=== PATIENT | male | born 1955 | race Caucasian/White ===

== ENCOUNTER 2023-08-30 10:26 | Outpatient (OUT) | payer MEDICARE, SELFPAY ==
[2023-08-30 11:03] LABS: Basophils Percent Auto 0.4 % (0.2-2.0); Eosinophils Absolute Auto 0.2 10^3/uL (0.0-0.7); Eosinophils Percent Auto 2.3 % (0.9-7.0); Hematocrit 51.4 % (42.0-54.0); Hemoglobin 16.9 g/dL (14.0-18.0); Immature Granulocytes Abs Auto 0.05 10^3/uL (0.00-0.03); Immature Granulocytes Pct Auto 0.5 % (0.0-0.5); Lymphocytes Absolute Auto 1.5 10^3/uL (1.2-3.8); Lymphocytes Percent Auto 15.7 % (20.5-60.0); Mean Corpuscular HGB Conc 32.9 g/dL (29.9-35.2); Mean Corpuscular Hemoglobin 29.3 pg (25.9-34.0); Mean Corpuscular Volume 89.1 fL (80.0-94.0); Mean Platelet Volume 9.5 fL (9.5-13.5); Monocytes Absolute Auto 0.8 10^3/uL (0.3-0.8); Monocytes Percent Auto 8.1 % (1.7-12.0); Neutrophils Absolute Auto 7.1 10^3/uL (1.4-6.5); Platelet Count 256 10^3/uL (150-450); Red Blood Count 5.77 10^6/uL (4.70-6.10); Red Cell Distribution Width 13.2 % (11.0-15.0); White Blood Count 9.8 10^3/uL (4.0-11.0)
[2023-08-30 11:44] LABS: Alanine Aminotransferase 37 U/L (16-63); Alkaline Phosphatase 109 U/L (46-116); Anion Gap 14.9; Aspartate Amino Transferase 14 U/L (15-37); BUN Creatinine Ratio 14.4; Bilirubin Total 1.1 mg/dL (0.2-1.0); Calcium 9.5 mg/dL (8.5-10.1); Carbon Dioxide 28.1 mmol/L (21.0-32.0); Chloride 105 mmol/L (98-107); Chol HDL Ratio 2.4; Cholesterol 106 mg/dL (<=200); Estimated GFR (African America >60 (>=60); Estimated GFR (Non-African Ame >60 (>=60); Free T3 2.36 pg/mL (2.18-3.98); Globulin 4.2 g/dL; Glucose 201 mg/dL (74-106); HDL Cholesterol 45 mg/dL (40-60); LDL Cholesterol Calculated 34.8 mg/dL; Sodium 144 mmol/L (136-145); Thyroid Stimulating Hormone 1.888 uIU/mL (0.358-3.740); Total Protein 8.2 g/dL (6.4-8.2); Triglycerides 131 mg/dL (<=150); Uric Acid 4.7 mg/dL (3.5-7.2); VLDL CHOLESTEROL 26.2 mg/dL
[2023-08-30 12:10] LABS: Estimated Average Glucose 194 mg/dL; Glycohemoglobin A1C 8.4 % (4.5-6.2)
[2023-08-30 13:21] LABS: Prostate Specific Antigen Scrn 2.12 ng/mL (<=4.00)
[2023-08-31 09:09] LABS: Insulin 11.5 uIU/mL (2.6-24.9)
== END 2023-08-30 10:27 | disposition home or self-care (01) ==
LOC: LAB 10:32
PROVIDERS: PCP Nurse Practitioner Family; Visit Provider Nurse Practitioner Family
DX: I10 Essential (primary) hypertension (principal); Z12.5 Encounter for screening for malignant neoplasm of prostate
CPT/HCPCS: 36415; 80053; 80061; 83036; 83525; 84436; 84443; 84481; 84550; 85025; G0103

== ENCOUNTER 2023-08-31 10:28 | Outpatient (OUT) | payer MEDICARE, SELFPAY ==
--- OUTSIDE RECORDS SUMMARY | 2023-08-31 10:31 | XMS_ITS | CCD ---
Author Name Unknown Address [address] [place] [address] Organization [facility] Care Team Providers Care Patient Portal Concierge Name Role Phone PHYSICIAN, DEFAULT Unavailable Unavailable PHYSICIAN, DEFAULT Unavailable Unavailable PHYSICIAN, DEFAULT Unavailable Unavailable PHYSICIAN, DEFAULT Unavailable Unavailable PHYSICIAN, DEFAULT Unavailable Unavailable PHYSICIAN, DEFAULT Unavailable Unavailable UNKNOWN, PROVIDER Unavailable Unavailable UNKNOWN, PROVIDER Unavailable Unavailable ESPERANZA, YFN Unavailable Unavailable ESPERANZA, YFN Unavailable Unavailable RAY, ONEYDA Admitting Unavailable RAY, ONEYDA Attending Unavailable RAY, ONEYDA Primary Care Unavailable RAY, ONEYDA Admitting Unavailable RAY, ONEYDA Attending Unavailable RAY, ONEYDA Consulting Unavailable RAY, ONEYDA Primary Care Unavailable ONEYDA BAKER Attending Unavailable YFN MATA Primary Care Unavailable RAY, ONEYDA Consulting Unavailable RAY, ONEYDA Admitting Unavailable ILAN TODD Attending Unavailable ILAN TODD Consulting Unavailable ILAN TODD Admitting Unavailable RAY, ONEYDA Primary Care Unavailable AMARIS WALKER Consulting Unavailable Allergies Allergy Classification Reported Allergen(s) Allergy Type Date of Onset Reaction(s) Facility (2 sources) No Known Allergies; 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: [No Known Allergies] Propensity to adverse reactions (disorder) 7 [facility] Repository Problems Active Problems Problem Classification Problem Date Documented Date Episodic/Chronic Diabetes mellitus without complication (1 source) Type 2 diabetes mellitus without complications; 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: [TYPE 2 DIABETES MELLITUS WITHOUT COMPLICATIONS] Onset: 2017 Chronic Diabetes mellitus without complication (4 sources) Other abnormal glucose; 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: [OTHER ABNORMAL GLUCOSE] Onset: 08-26-2021 Episodic Disorders of lipid metabolism (1 source) Hyperlipidemia, unspecified; 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: [HYPERLIPIDEMIA UNSPECIFIED] Onset: 08-31-2021 Chronic Essential hypertension (2 sources) Essential (primary) hypertension; 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: [ESSENTIAL (PRIMARY) HYPERTENSION] Onset: 2017 Chronic Heart valve disorders (1 source) Nonrheumatic mitral (valve) insufficiency; 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: [NONRHEUMATIC MITRAL (VALVE) INSUFFICIENCY] Onset: 2017 Chronic Respiratory failure; insufficiency; arrest (1 source) Dependence on supplemental oxygen; 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: [DEPENDENCE ON SUPPLEMENTAL OXYGEN] Onset: 2017 Chronic Unclassified (1 source) Obstructive sleep apnea (adult) (pediatric); 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: [OBSTRUCTIVE SLEEP APNEA (ADULT) (PEDIATRIC)] Onset: 2017 Chronic Unclassified (6 sources) Abnormal result of other cardiovascular function study; 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: [Encounter for screening for malignant neoplasm of prostate] Onset: 2017 Episodic Unclassified (2 sources) Unknown / UNK(Unknown) Onset: 2017 Unclassified (1 source) 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; 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: [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 DRUGS] Onset: 2017 Viral infection (1 source) COVID-19; 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: [COVID-19] Onset: 12-08-2020 Past or Other Problems Problem Classification Problem Date Documented Da te Episodic/Chronic Other aftercare (1 source) [facility] (current) use of aspirin; 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: [SNF (CURRENT) USE OF ASPIRIN] Onset: 2017 Episodic Other lower respiratory disease (1 source) Shortness of breath; 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: [SHORTNESS OF BREATH] Onset: 2017 Episodic Other lower respiratory disease (3 sources) Cough; 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: [COUGH] Onset: 12-06-2020 Episodic Results Test Name Value Interpretation Reference Range Facility INSULINon 08-27-2021 Insulin 19.2 uIU/mL Normal 2.6-24.9 [facility] Comment on above: Performed By: #### INSULIN #### [facility] [address] [address] [address] Forrest Lauren CBC AUTO DIFFon 08-26-2021 BASO # 0.1 103/ul Normal 0.0-0.1 [facility] Comment on above: Performed By: #### PSASC #### [facility] [address] [address] [address] Forrest Lauren Basophils/100 WBC (Bld) 0.8 % Normal 0.2-2.0 [facility] Comment on above: Performed By: #### PSASC #### [facility] [address] [place] [address] Dr. Forrest Lauren EO # 0.4 103/ul Normal 0.0-0.7 [facility] Comment on above: Performed By: #### PSASC #### [facility] [address] [place] [address] Dr. Forrest Lauren Eosinophils/100 WBC (Bld) 4.8 % Normal 0.9-7.0 [facility] Comment on above: Performed By: #### PSASC #### [facility] [address] [place] [address] Dr. Forrest Lauren Erythrocyte distribution width (RBC) [Ratio] 12.7 % Normal 11.0-15.0 [facility] Comment on above: Performed By: #### PSASC #### [facility] [address] [place] [address] Dr. Forrest Lauren Hematocrit (Bld) [Volume fraction] 48.3 % Normal 42.0-54.0 [facility] Comment on above: Performed By: #### PSASC #### [facility] [address] [place] [address] Dr. Forrest Lauren Hemoglobin (Bld) [Mass/Vol] 16.4 g/dL Normal 14.0-18.0 [facility] Comment on above: Performed By: #### PSASC #### [facility] [address] [place] [address] Dr. Forrest Lauren IG # 0.05 10e3/ul Critically high 0.00-0.03 [facility] Comment on above: Performed By: #### PSASC #### [facility] [address] [place] [address] Dr. Forrest Lauren IG % 0.6 % Critically high 0.0-0.5 [facility] Comment on above: Performed By: #### PSASC #### [facility] [address] [place] [address] Dr. Forrest Lauren LYMPH # 2.0 103/ul Normal 1.2-3.8 [facility] Comment on above: Performed By: #### PSASC #### [facility] [address] [place] [address] Dr. Forrest Lauren Lymphocytes/100 WBC (Bld) 22.6 % Normal 20.5-60.0 [facility] Comment on above: Performed By: #### PSASC #### [facility] [address] [place] [address] Dr. Forrest Lauren MANUAL DIFF REQ NO Normal [facility] Comment on above: Performed By: #### PSASC #### [facility] [address] [place] [address] Dr. Forrest Lauren MCH (RBC) [Entitic mass] 29.8 pg Normal 25.9-34.0 [facility] Comment on above: Performed By: #### PSASC #### [facility] [address] [place] [address] Dr. Forrest Lauren MCHC (RBC) [Mass/Vol] 34.0 g/dL Normal 29.9-35.2 [facility] Comment on above: Performed By: #### PSASC #### [facility] [address] [place] [address] Dr. Forrest Lauren MCV (RBC) [Entitic vol] 87.8 fL Normal 80.0-94.0 [facility] Comment on above: Performed By: #### PSASC #### [facility] [address] [place] [address] Dr. Forrest Lauren MONO # 0.7 103/ul Normal 0.3-0.8 [facility] Comment on above: Performed By: #### PSASC #### [facility] [address] [place] [address] Dr. Forrest Lauren Monocytes/100 WBC (Bld) 8.0 % Normal 1.7-12.0 [facility] Comment on above: Performed By: #### PSASC #### [facility] [address] [place] [address] Dr. Forrest Lauren NEUT # 5.7 103/ul Normal 1.4-6.5 [facility] Comment on above: Performed By: #### PSASC #### [facility] [address] [place] [address] Dr. Forrest Lauren Neutrophils/100 WBC (Bld) 63.2 % Normal 43.0-75.0 [facility] Comment on above: Performed By: #### PSASC #### [facility] [address] [place] [address] Dr. Forrest Lauren Platelet mean volume (Bld) [Entitic vol] 9.7 fL Normal 9.5-13.5 [facility] Comment on above: Performed By: #### PSASC #### [facility] [address] [address] [address] Forrest Lauren PLT 242 103/ul Normal 150-450 [facility] Comment on above: Performed By: #### PSASC #### [facility] [address] [place] [address] Dr. Forrest Lauren RBC 5.50 106/ul Normal 4.70-6.10 [facility] Comment on above: Performed By: #### PSASC #### [facility] [address] [place] [address] Dr. Forrest Lauren WBC 9.0 103/ul Normal 4.0-11.0 [facility] Comment on above: Performed By: #### PSASC #### [facility] [address] [place] [address] Dr. Forrest Lauren GLYCOHEMOGLOBIN A1Con 2021 ADA RECOMMENDATION ADA THERAPEUTIC TARGET 6.0 - 7.0 ACTION SUGGESTED > 7.0 Normal [facility] Comment on above: Performed By: #### A1C #### [facility] [address] [place] [address] Dr. Forrest Lauren Glucose [Mass/Vol] 194 mg/dL Normal [facility] Comment on above: Performed By: #### A1C #### [facility] [address] [place] [address] Dr. Forrest Lauren HbA1c (Bld) [Mass fraction] 8.4 % Critically high <=6.0 [facility] Comment on above: Performed By: #### A1C #### [facility] [address] [place] [address] Dr. Forrest Lauren LIPID PROFILEon 08-26-2021 CHOL-HDL RATIO NORM SEE BELOW Normal [facility] Comment on above: Result Comment: 3.3 - 4.4 LOW RISK 4.4 - 7.1 AVERAGE RISK 7.1 - 11.0 MODERATE RISK >11.0 HIGH RISK Performed By: #### P SASC #### [facility] [address] [address] [address] Forrest Lauren Cholesterol [Mass/Vol] 117 mg/dL Normal <=200 [facility] Comment on above: Performed By: #### PSASC #### [facility] [address] [address] [address] Forrest Lauren Cholesterol in HDL [Mass/Vol] 43 mg/dL Normal [facility] Comment on above: Performed By: #### PSASC #### [facility] [address] [place] [address] Dr. Forrest Lauren Cholesterol in LDL [Mass/Vol] 45.6 mg/dL Normal [facility] Comment on above: Performed By: #### PSASC #### [facility] [address] [place] [address] Dr. Forrest Lauren Cholesterol.tota l/Cholesterol in HDL [Mass ratio] 2.7 {ratio} Normal [facility] Comment on above: Performed By: #### PSASC #### [facility] [address] [place] [address] Dr. Forrest Lauren HDL NORMAL > or = 60 mg/dl - LO W CARDIOVASCULAR RISK <40 mg/dl - HIGH CARDIOVASCULAR RISK Normal [facility] Comment on above: Performed By: #### PSASC #### [facility] [address] [place] [address] Dr. Forrest Lauren LDL CALC NORMAL SEE BELOW Normal [facility] Comment on above: Result Comment: <100 mg/dl OPTIMAL 100 - 129 mg/dl NEAR OR ABOVE OPTIMAL 130 - 159 mg/dl BORDERLINE HIGH 160 - 189 mg/dl HIGH >190 mg/dl VERY HIGH Performed By: #### P SASC #### [facility] [address] [place] [address] Dr. Forrest Lauren Triglyceride [Mass/Vol] 142 mg/dL Normal <=150 [facility] Comment on above: Performed By: #### PSASC #### [facility] [address] [address] [address] Forrest Lauren VLDL CALC 28.4 mg/dL Normal [facility] Comment on above: Performed By: #### PSASC #### [facility] [address] [address] [address] Forrest Lauren PROF 14(COMP METB)on 022 Albumin [Mass/Vol] 4.1 g/dL Normal 3.5-5.0 [facility] Comment on above: Performed By: #### PSASC #### [facility] [address] [place] [address] Dr. Forrest Lauren Albumin/Globulin [Mass ratio] 1.2 {ratio} Normal [facility] Comment on above: Performed By: #### PSASC #### [facility] [address] [place] [address] Dr. Forrest Lauren ALP [Catalytic activity/Vol] 82 U/L Normal 38-126 [facility] Comment on above: Performed By: #### PSASC #### [facility] [address] [place] [address] Dr. Forrest Lauren ALT [Catalytic activity/Vol] 38 U/L Normal 21-72 [facility] Comment on above: Performed By: #### PSASC #### [facility] [address] [place] [address] Dr. Forrest Lauren Anion gap [Moles/Vol] 12.7 mmol/L Normal [facility] Comment on above: Performed By: #### PSASC #### [facility] [address] [place] [address] Dr. Forrest Lauren AST [Catalytic activity/Vol] 18 U/L Normal 17-59 [facility] Comment on above: Performed By: #### PSASC #### [facility] [address] [place] [address] Dr. Forrest Lauren Bilirubin [Mass/Vol] 1.2 mg/dL Normal 0.2-1.3 [facility] Comment on above: Performed By: #### PSASC #### [facility] [address] [address] [address] Forrest Lauren Calcium [Mass/Vol] 9.7 mg/dL Normal 8.4-10.2 [facility] Comment on above: Performed By: #### PSASC #### [facility] [address] [place] [address] Dr. Forrest Lauren Chloride [Moles/Vol] 102 mmol/L Normal 98-107 [facility] Comment on above: Performed By: #### PSASC #### [facility] [address] [place] [address] Dr. Forrest Lauren CO2 [Moles/Vol] 30.6 mmol/L Critically high 22.0-30.0 [facility] Comment on above: Performed By: #### PSASC #### [facility] [address] [place] [address] Dr. Forrest Lauren Creatinine [Mass/Vol] 1.09 mg/dL Normal 0.66-1.25 [facility] Comment on above: Performed By: #### PSASC #### [facility] [address] [place] [address] Dr. Forrest Lauren EGFR-AF J[place]ICAN >60 Normal >=60 [facility] Comment on above: Performed By: #### PSASC #### [facility] [address] [place] [address] Dr. Forrest Lauren EGFR-NON AF [place] >60 Normal >=60 [facility] Comment on above: Performed By: #### PSASC #### [facility] [address] [address] [address] Forrest Lauren Globulin (S) [Mass/Vol] 3.4 g/dL Normal [facility] Comment on above: Performed By: #### PSASC #### [facility] [address] [place] [address] Dr. Forrest Lauren Glucose [Mass/Vol] 238 mg/dL Critically high 74-106 [facility] Comment on above: Performed By: #### PSASC #### [facility] [address] [address] [address] Forrest Lauren Potassium [Moles/Vol] 4.3 mmol/L Normal 3.4-5.0 [facility] Comment on above: Performed By: #### PSASC #### [facility] [address] [place] [address] Dr. Forrest Lauren Protein [Mass/Vol] 7.5 g/dL Normal 6.1-8.2 [facility] Comment on above: Performed By: #### PSASC #### [facility] [address] [place] [address] Dr. Forrest Lauren Sodium [Moles/Vol] 141 mmol/L Normal 137-145 [facility] Comment on above: Performed By: #### PSASC #### [facility] [address] [place] [address] Dr. Forrest Lauren Urea nitrogen [Mass/Vol] 20.0 mg/dL Normal 9.0-20.0 [facility] Comment on above: Performed By: #### PSASC #### [facility] [address] [place] [address] Dr. Forrest Lauren Urea nitrogen/Creatin ine [Mass ratio] 18.3 mg/mg Normal [facility] Comment on above: Performed By: #### PSASC #### [facility] [address] [place] [address] Dr. Forrest Lauren URIC ACID SERUMon 08-26-2021 Urate [Mass/Vol] 4.8 mg/dL Normal 3.5-8.5 [facility] Comment on above: Performed By: #### PSASC #### [facility] [address] [place] [address] Dr. Forrest Lauren Covid-19 PCR ([facility])on Sample Type Test performed using RT-PCR from a nasopharyngeal collected specimen. Normal [facility] Comment on above: Performed By: #### PSASC #### [facility] [address] [place] [address] Dr. Forrest Lauren SARS-CoV-2 (COVID-19) RNA MERA+probe Ql (Unsp spec) Detected Abnormal NOT DETECTED [facility] Comment on above: Result Comment: This test is not yet janusz roved or cleared by the [place] FDA. When there are no FDA-approved or cleared tests available, and other criteria are met, FDA can make tests available under an emergency access mechanism called an Emergency Use Authorization (EUA). The EUA for this test is supported by the [place] of Health and Human Service's (HHS's) declaration that circumstances exist to justify the emergency use of in vitro diagnostics for the detection and/or diagnosis of the virus that causes COVID-19. This EUA will remain in effect (meaning this test can be used) for the duration of the COVID-19 declaration justifying emergency of IVDs, unless it is terminated or revoked by FDA (after which the test may no longer be used). Performed By: #### P SASC #### [facility] [address] [place] [address] Dr. Forrest Lauren POINT OF CARE GLUCOSEon 05-0 Glucose [Mass/Vol] 255 mg/dL Critically high 74-106 [facility] Comment on above: Performed By: #### POCGLUC #### [facility] [address] [place] [address] Matias Rivas XR CHEST 1 Von 12-07-2020 XR CHEST 1 V EXAM: XR CHEST 1 V HISTORY: COUGH COMPARISON: None. TECHNIQUE: Single view portable upright view of the chest is submitted for review. FINDINGS: The heart size normal. Mild elevation of the left hemidiaphragm is seen. Left lung base atelectasis versus small infiltrate is seen. No significant pleural effusion or obvious pneumothorax is seen on this single view of the chest. IMPRESSION: Left lung base atelectasis versus small infiltrate. Electronically authenticated by: AMARIS WALKER Date: 2020-12-06 22:04 Normal [facility] INSULINon 10-02-2020 Insulin 16.9 uIU/mL Normal 2.6-24.9 [facility] Comment on above: Performed By: #### PSASC #### [facility] [address] [place] [address] Dr. Forrest Lauren CBC AUTO DIFFon 10-01-2020 BASO # 0.1 103/ul Normal 0.0-0.1 [facility] Comment on above: Performed By: #### CBC #### [facility] [address] [id number] Matias Evelyn Basophils/100 WBC (Bld) 0.6 % Normal 0.2-2.0 [facility] Comment on above: Performed By: #### CBC #### [facility] [address] [place] [address] Matias Evelyn EO # 0.4 103/ul Normal 0.0-0.7 [facility] Comment on above: Performed By: #### CBC #### [facility] [address] [place] [address] Matias Evelyn Eosinophils/100 WBC (Bld) 4.2 % Normal 0.9-7.0 [facility] Comment on above: Performed By: #### CBC #### [facility] [address] [place] [address] Matias Evelyn Erythrocyte distribution width (RBC) [Ratio] 13.1 % Normal 11.0-15.0 [facility] Comment on above: Performed By: #### CBC #### [facility] [address] [place] [address] Matias Evelyn Hematocrit (Bld) [Volume fraction] 50.2 % Normal 42.0-54.0 [facility] Comment on above: Performed By: #### CBC #### [facility] [address] [place] [address] Matias Evelyn Hemoglobin (Bld) [Mass/Vol] 16.6 g/dL Normal 14.0-18.0 [facility] Comment on above: Performed By: #### CBC #### [facility] [address] [place] [address] Matias Evelyn IG # 0.05 10e3/ul Critically high 0.00-0.03 [facility] Comment on above: Performed By: #### CBC #### [facility] [address] [place] [address] Matias Evelyn IG % 0.6 % Critically high 0.0-0.5 [facility] Comment on above: Performed By: #### CBC #### [facility] [address] [place] [address] Matias Evelyn LYMPH # 1.9 103/ul Normal 1.2-3.8 [facility] Comment on above: Performed By: #### CBC #### [facility] [address] [place], [place] [id number] Matias Rivas Lymphocytes/100 WBC (Bld) 22.2 % Normal 20.5-60.0 [facility] Comment on above: Performed By: #### CBC #### [facility] [address] [place] [address] Matias Rivas MANUAL DIFF REQ NO Normal [facility] Comment on above: Performed By: #### CBC #### [facility] [address] [place] [address] Matias Rivas MCH (RBC) [Entitic mass] 29.4 pg Normal 25.9-34.0 [facility] Comment on above: Performed By: #### CBC #### [facility] [address] [place] [address] Matiaswali Rivas MCHC (RBC) [Mass/Vol] 33.1 g/dL Normal 29.9-35.2 [facility] Comment on above: Performed By: #### CBC #### [facility] [address] [place] [address] Matias Rivas MCV (RBC) [Entitic vol] 88.8 fL Normal 80.0-94.0 [facility] Comment on above: Performed By: #### CBC #### [facility] [address] [place] [address] Matias Rodasen MONO # 0.7 103/ul Normal 0.3-0.8 [facility] Comment on above: Performed By: #### CBC #### [facility] [address] [place] [address] Matiaswali Rivas Monocytes/100 WBC (Bld) 7.7 % Normal 1.7-12.0 [facility] Comment on above: Performed By: #### CBC #### [facility] [address] [place] [address] Matias Evelyn NEUT # 5.7 103/ul Normal 1.4-6.5 [facility] Comment on above: Performed By: #### CBC #### [facility] [address] [place], [place] [address] Matias Rivas Neutrophils/100 WBC (Bld) 64.7 % Normal 43.0-75.0 [facility] Comment on above: Performed By: #### CBC #### [facility] [address] [place], [place] [id number] Matias Rivas Platelet mean volume (Bld) [Entitic vol] 10.4 fL Normal 9.5-13.5 [facility] Comment on above: Performed By: #### CBC #### [facility] [address] [place] [address] Matiaswali Rodasen PLT 243 103/ul Normal 150-450 [facility] Comment on above: Performed By: #### CBC #### [facility] [address] [place] [address] Matias Evelyn RBC 5.65 106/ul Normal 4.70-6.10 [facility] Comment on above: Performed By: #### CBC #### [facility] [address] [place] [address] Matiaswali Rivas WBC 8.7 103/ul Normal 4.0-11.0 [facility] Comment on above: Performed By: #### CBC #### [facility] [address] [place] [address] Matias Rivas FREE THYROXINE INDEX T7on FTI 2.11 Normal [facility] Comment on above: Performed By: #### URIC, CMP, T7, PSASC, TSH, LIPID #### [facility] [address] [place] [address] Matias Rivas T3U 34.0 % Normal 23.5-40.5 [facility] Comment on above: Performed By: #### URIC, CMP, T7, PSASC, TSH, LIPID #### [facility] [address] [place], [place] [id number] Matiaswali Rodasen T4 [Mass/Vol] 6.20 ug/dL Normal 5.53-11.00 [facility] Comment on above: Performed By: #### URIC, CMP, T7, PSASC, TSH, LIPID #### [facility] [address], [place] [address] Matias Rivas GLYCOHEMOGLOBIN A1Con 2020 ADA RECOMMENDATION ADA THERAPEUTIC TARGET 6.0 - 7.0 ACTION SUGGESTED > 7.0 Normal [facility] Comment on above: Performed By: #### A1C #### [facility] [address] [address] Matias Rivas Glucose [Mass/Vol] 266 mg/dL Normal [facility] Comment on above: Performed By: #### A1C #### [facility] [address] [address] Matias Evelyn HbA1c (Bld) [Mass fraction] 10.9 % Critically high <=6.0 [facility] Comment on above: Performed By: #### A1C #### [facility] [address] [place] [address] Matias Rivas LIPID PROFILEon 10-01-2020 CHOL-HDL RATIO NORM SEE BELOW Normal [facility] Comment on above: Result Comment: 3.3 - 4.4 LOW RISK 4.4 - 7.1 AVERAGE RISK 7.1 - 11.0 MODERATE RISK >11.0 HIGH RISK Performed By: #### P SASC #### [facility] [address] [place] [address] Dr. Forrest Lauren Cholesterol [Mass/Vol] 110 mg/dL Normal <=200 [facility] Comment on above: Performed By: #### PSASC #### [facility] [address] [place] [address] Dr. Forrest Lauren Cholesterol in HDL [Mass/Vol] 36 mg/dL Normal [facility] Comment on above: Performed By: #### PSASC #### [facility] [address] [address] [address] Forrest Lauren Cholesterol in LDL [Mass/Vol] 36.2 mg/dL Normal [facility] Comment on above: Performed By: #### PSASC #### [facility] [address] [place] [address] Dr. Forrest Lauren Cholesterol.tota l/Cholesterol in HDL [Mass ratio] 3.1 {ratio} Normal [facility] Comment on above: Performed By: #### PSASC #### [facility] [address] [address] [address] Forrest Lauren HDL NORMAL > or = 60 mg/dl - LO W CARDIOVASCULAR RISK <40 mg/dl - HIGH CARDIOVASCULAR RISK Normal [facility] Comment on above: Performed By: #### PSASC #### [facility] [address] [address] [address] Forrest Lauren LDL CALC NORMAL SEE BELOW Normal [facility] Comment on above: Result Comment: <100 mg/dl OPTIMAL 100 - 129 mg/dl NEAR OR ABOVE OPTIMAL 130 - 159 mg/dl BORDERLINE HIGH 160 - 189 mg/dl HIGH >190 mg/dl VERY HIGH Performed By: #### P SASC #### [facility] [address] [place] [address] Dr. Forrest Lauren Triglyceride [Mass/Vol] 189 mg/dL Critically high <=150 [facility] Comment on above: Performed By: #### PSASC #### [facility] [address] [place] [address] Dr. Forrest Lauren VLDL CALC 37.8 mg/dL Normal [facility] Comment on above: Performed By: #### PSASC #### [facility] [address] [place] [address] Dr. Forrest Lauren PROF 14(COMP METB)on 021 Albumin [Mass/Vol] 4.1 g/dL Normal 3.5-5.0 [facility] Comment on above: Performed By: #### URIC, CMP, T7, PSASC, TSH, LIPID #### [facility] [address] [place] [address] Matias Rivas Albumin/Globulin [Mass ratio] 1.2 {ratio} Normal [facility] Comment on above: Performed By: #### URIC, CMP, T7, PSASC, TSH, LIPID #### [facility] [address] [place] [address] Matias Rivas ALP [Catalytic activity/Vol] 80 U/L Normal 38-126 [facility] Comment on above: Performed By: #### URIC, CMP, T7, PSASC, TSH, LIPID #### [facility] [address] [address] Matias Evelyn ALT [Catalytic activity/Vol] 42 U/L Normal 21-72 [facility] Comment on above: Performed By: #### URIC, CMP, T7, PSASC, TSH, LIPID #### [facility] [address] [address] Matias Evelyn Anion gap [Moles/Vol] 12.3 mmol/L Normal [facility] Comment on above: Performed By: #### URIC, CMP, T7, PSASC, TSH, LIPID #### [facility] [address] [place] [address] Amtias Evelyn AST [Catalytic activity/Vol] 24 U/L Normal 17-59 [facility] Comment on above: Performed By: #### URIC, CMP, T7, PSASC, TSH, LIPID #### [facility] [address] [place] [address] Matias Evelyn Bilirubin [Mass/Vol] 1.3 mg/dL Normal 0.2-1.3 [facility] Comment on above: Performed By: #### URIC, CMP, T7, PSASC, TSH, LIPID #### [facility] [address] [place] [address] Matias Evelyn Calcium [Mass/Vol] 9.3 mg/dL Normal 8.4-10.2 [facility] Comment on above: Performed By: #### URIC, CMP, T7, PSASC, TSH, LIPID #### [facility] [address] [place] [address] Matias Evelyn Chloride [Moles/Vol] 103 mmol/L Normal 98-107 [facility] Comment on above: Performed By: #### URIC, CMP, T7, PSASC, TSH, LIPID #### [facility] [address] [place] [address] Matias Evelyn CO2 [Moles/Vol] 30.0 mmol/L Normal 22.0-30.0 [facility] Comment on above: Performed By: #### URIC, CMP, T7, PSASC, TSH, LIPID #### [facility] [address] [address] Matias Evelyn Creatinine [Mass/Vol] 1.20 mg/dL Normal 0.66-1.25 [facility] Comment on above: Performed By: #### URIC, CMP, T7, PSASC, TSH, LIPID #### [facility] [address] [address] Matias Evelyn EGFR-AF JAMAICAN >60 Normal >=60 [facility] Comment on above: Performed By: #### URIC, CMP, T7, PSASC, TSH, LIPID #### [facility] [address] [address] Matias Evelyn EGFR-NON AF JAMAICAN >60 Normal >=60 [facility] Comment on above: Performed By: #### URIC, CMP, T7, PSASC, TSH, LIPID #### [facility] [address] [place] [address] Matias Evelyn Globulin (S) [Mass/Vol] 3.5 g/dL Normal [facility] Comment on above: Performed By: #### URIC, CMP, T7, PSASC, TSH, LIPID #### [facility] [address] [address] Matias Evelyn Glucose [Mass/Vol] 269 mg/dL Critically high 74-106 [facility] Comment on above: Performed By: #### URIC, CMP, T7, PSASC, TSH, LIPID #### [facility] [address] [place] [address] Matias Evelyn Potassium [Moles/Vol] 4.3 mmol/L Normal 3.4-5.0 [facility] Comment on above: Performed By: #### URIC, CMP, T7, PSASC, TSH, LIPID #### [facility] [address] [address] Matias Evelyn Protein [Mass/Vol] 7.6 g/dL Normal 6.1-8.2 [facility] Comment on above: Performed By: #### URIC, CMP, T7, PSASC, TSH, LIPID #### [facility] [address] [address] Matias Evelyn Sodium [Moles/Vol] 141 mmol/L Normal 137-145 [facility] Comment on above: Performed By: #### URIC, CMP, T7, PSASC, TSH, LIPID #### [facility] [address] [place] [address] Matias Evelyn Urea nitrogen [Mass/Vol] 17.0 mg/dL Normal 9.0-20.0 [facility] Comment on above: Performed By: #### URIC, CMP, T7, PSASC, TSH, LIPID #### [facility] [address] [place] [address] Matias Evelyn Urea nitrogen/Creatin ine [Mass ratio] 14.2 mg/mg Normal [facility] Comment on above: Performed By: #### URIC, CMP, T7, PSASC, TSH, LIPID #### [facility] [address] [place] [address] Matias Rivas TSHon 10-01-2020 TSH 1.574 uIU/mL Normal 0.470-4.68 0 [facility] Comment on above: Performed By: #### PSASC #### [facility] [address] [place] [address] Dr. Forrest Lauren TSH RANGE SEE BELOW Normal [facility] Comment on above: Result Comment: <0.34 UIU/ml HYPERTHYROI D 0.34-5.60 UIU/ml EUTHYROID >5.60 UIU/ml HYPOTHYROID Performed By: #### P SASC #### [facility] [address] [place] [address] Dr. Forrest Lauren URIC ACID SERUMon 10-01-2020 Urate [Mass/Vol] 4.8 mg/dL Normal 3.5-8.5 [facility] Comment on above: Performed By: #### PSASC #### [facility] [address] [place] [address] Dr. Forrest Lauren Cardiovascular Lab Reporton 08-03-2017 Cardiovascular Lab Report [facility]: [id number] Physician: Renato Miller M.D.Medicine Service Date: 2017Division of Birthdate: 6Cardiology [facility], [place] [address] Fax Cardiovascular Laboratory ReportINDICATION: Hoang Bonilla is a 62-year-old man known to have history ofhypertension and he was evaluated recently in Cardiology Clinic because ofmitral regurgitation. His followup echocardiogram showed improvement ofmitral regurgitation after control of his blood pressure. He continued tohave symptoms of shortness of breath on exertion. A stress test showedbasal lateral ischemia. He was referred for cardiac catheterization.PROCEDURES:1. Right heart catheterization.2. Access into the right internal jugular vein under ultrasound guidance.3. Bilateral selective coronary angiography from the left radial access.DESCRIPTION OF PROCEDURE: Procedure was explained to the patient withrisks and benefits. He signed informed consent. He was brought to cathlab in a fasting state. The right neck area was prepped and draped inusual fashion. Using micropuncture technique and ultrasound guidance,access was obtained in the right internal jugular vein and a 6-Kazakh x 11cm sheath was placed. A 6-Kazakh Griffith catheter was used for right heartcatheterization with measurement of pressures and calculation of cardiacoutput using the estimated Luke method. Griffith catheter was removed.Using ultrasound guidance and micropuncture technique, access was obtainedin the left radial artery and a 6-Kazakh x 11 cm Hydrophilic sheath wasadvanced. Verapamil was given through the sheath and heparin wasadministered intravenously. Note that Ray's test was favorable.Bilateral selective coronary angiography was then performed using 6-FrenchJL4 and JR4 diagnostic catheters. Catheters were removed. Procedure wasconcluded. The radial sheath was removed and a compression dressingapplied for hemostasis. The internal jugular vein sheath was removed andmanual compression applied for hemostasis. He will be observed in thecardiovascular recovery area for 2 hours and then discharged to home.TOTAL FLUORO TIME: 2.08 minutes. Total air kerma 348 mGy. Total contrastvolume 40 mL.HEMODYNAMICS:RA 10.RV 34/9, 13.PA, 37/15, mean 24.Pulmonary capillary wedge pressure 14.AO 117/75, mean 95.Cardiac output 6.54, cardiac index 2.66.PA sat 74%, AO sat 97%.CORONARY ANGIOGRAPHY: This is a right dominant circulation.Left main: This arises from left coronary cusp. It trifurcates into leftanterior descending, ramus and circumflex vessels. The left main isangiographically normal.Left anterior descending: This is angiographically normal.Circumflex vessel is angiographically normal.Ramus vessel is angiographically normal.Right coronary artery. This arises from the right coronary cusp. It is alarge and dominant vessel. It is angiographically normal.SUMMARY OF THE FINDINGS:1. Normal coronary angiogram.2. Normal filling pressures.3. Normal pulmonary arterial pressures.4. Normal cardiac output and cardiac index.RECOMMENDATIONS:Continue current medical therapy and follow up in Cardiology Clinic.Electronically Signed by:Renato Staton M.D. 08/11/2017 03:22 A Renato Staton M.D.Date Dict: 08/02/2017/02:42 P/Renato Staton M.D.Date Trans: 08/03/2017 11:29 A/[id number]: Yfn Mata D.O. [address] [place] [address] [facility] Encounters Encounter Date Encounter Type Care Provider Facility Start: 08-26-2021 End: 08-26-2021 ambulatory ONEYDA BAKER Facility:[facility] Start: 02-23-2021 ambulatory ONEYDA BAKER Facility:[facility] Start: 12-06-2020 End: 12-07-2020 ambulatory ILAN TODD Facility:[facility] Start: 10-07-2020 Encounter for genera l adult medical examination without abnormal findings ONEYDA BAKER [facility] Start: 10-01-2020 End: 10-02-2020 ambulatory ONEYDA BAKER Facility:[facility] Start: 10-01-2020 End: 10-02-2020 Encounter for general adult medical examination without abnormal findings ONEYDA BAKER Facility:[facility] Start: 2017 End: 08-03-2017 Ambulatory PROVIDER UNKNOWN Facility:[facility] Start: 07-24-2017 End: 07-25-2017 Ambulatory DEFAULT PHYSICIAN Facility:[facility] Start: 07-19-2017 End: 07-20-2017 Ambulatory DEFAULT PHYSICIAN Facility:[facility] Start: 06-18-2017 End: 06-19-2017 Ambulatory DEFAULT PHYSICIAN Facility:[facility] Procedures Date Procedure Procedure Detail Performing Clinician Start: 08-26-2021 PSA screening ONEYDA KHAN Comment on above: Performed By: #### P SASC #### [facility] [address], [place] [address] Dr. Forrest Lauren Start: 10-01-2020 PSA screening ONEYDA KHAN Comment on above: Performed By: #### U TARIK, CMP, T7, PSASC, TSH, LIPID #### [facility] [address], [place] [address] Matias Rivas Payers Date Payer Category Payer [facility] [id number] 1958 Medicare [id number] 1958 Self-pay 1955 Unknown [id number] [id number] [id number] 1955 Unknown [id number] [id number] 1955 Unknown [id number] [id number] [id number] 1955 Unknown [id number] 2.16.84 [id number] Unknown Summary Purpose Family History No Family History Records FoundNo Family History Records Found Advance Directives No Advanced Directives Records FoundNo Advanced Directives Records Found Additional Source Comments (unrecognized sect ion and content) No Status Records FoundNo Status Records Found INFORMATION SOURCE (unrecogn ized section and content) DATE CREATED AUTHOR 01/29/2018 [facility] DATE CREATED AUTHOR AUTHOR'S ORGANIZ ATION 09/01/2021 [facility] FOR RECORDS PERTAINING TO PATIENTS WHO ARE OR HAVE BEEN ENROLLED IN A CHEMICAL DEPENDENCY/SUBSTANCEABUSE PROGRAM, SOME INFORMATION MAY BE OMITTED. This clinical summary was aggregated from multiple sources. Caution should be exercised in using it in the provision of clinical care. This summary normalizes information from multiple sources, and as a consequence, information in this document may materially change the coding, format and clinical context of patient data. In addition, data may be omitted in some cases. CLINICAL DECISIONS SHOULD BE BASED ON THE PRIMARY CLINICAL RECORDS. [facility] [employer] [facility]. provides no warranty or guarantee of the accuracy or completeness of information in this document.
--- NOTE | 2023-08-31 10:33 | US_ITS ---
The [address] [address] Patient Name: NABEEL TRAN MRN: [id number] date: 1955 Sex: M Assigned Patient Location: US Current Patient Location: US Accession/Order Number: [id number] Exam Date: 08/31/2023 10:34 Report Date: 08/31/2023 12:36 At the request of: ONEYDA GREEN Procedure: US renal bladder EXAMINATION: US renal bladder HISTORY: Lower Urinary Obstructive Symptom COMPARISON: No relevant comparison available. TECHNIQUE: Ultrasound examination was performed of the bladder. FINDINGS: Right Kidney: Normal in size, contour and cortical echotexture. No solid cortical mass, hydronephrosis or obstructing nephrolithiasis. The cortex measures 1.4 cm thick. Areas of anechoic echogenicity the 2 largest measuring 3.9 and 4.7 cm, simple cysts. Height: 6.5 cm Length: 11.3 cm Width: 6.5 cm Left Kidney: Normal in size, contour and cortical echotexture. No solid cortical mass, hydronephrosis or obstructing nephrolithiasis. The cortex measures 1.5 cm thick. 1.1 cm area of anechoic echogenicity, cortical cyst Height: 5.7 cm Length: 11.7 cm Width: 5.1 cm The urinary bladder wall is minimally thickened 4 mm. No focal mass. The bladder volume measures 102 mL prevoid, 6 mL post void Ureteral jets: Visualized bilaterally US/US renal bladder IMPRESSION: Bilateral renal cortical cysts Minimal urinary bladder wall thickening with no focal mass 6 mL post void urinary bladder residual Electronically authenticated by: CELY CASAS Date: 08/31/2023 12:36
== END 2023-08-31 10:29 | disposition home or self-care (01) ==
LOC: US 10:28
PROVIDERS: PCP Nurse Practitioner Family; Visit Provider Nurse Practitioner Family
DX: N13.9 Obstructive and reflux uropathy, unspecified (principal); N28.1 Cyst of kidney, acquired
CPT/HCPCS: 76770

== ENCOUNTER 2023-09-03 16:18 | Outpatient (OUT) | payer MEDICARE, SELFPAY ==
--- OUTSIDE RECORDS SUMMARY | 2023-09-03 16:25 | XMS_ITS | CCD ---
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] Onset: 2017 Viral infection (1 source) COVID-19; 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: [COVID-19] Onset: 12-08-2020 Past or Other Problems Problem Classification Problem Date Documented Da te Episodic/Chronic Other aftercare (1 source) senior living (current) use of aspirin; 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: [FCI (CURRENT) USE OF ASPIRIN] Onset: 2017 Episodic Other lower respiratory disease (1 source) Shortness of breath; 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: [SHORTNESS OF BREATH] Onset: 2017 Episodic Other lower respiratory disease (3 sources) Cough; 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: [COUGH] Onset: 12-06-2020 Episodic Results Test Name Value Interpretation Reference Range Facility INSULINon 08-27-2021 Insulin 19.2 uIU/mL Normal 2.6-24.9 [facility] Comment on above: Performed By: #### INSULIN #### [facility] [address] [address] [address] Forrest Lauren CBC AUTO DIFFon 08-26-2021 BASO # 0.1 103/ul Normal 0.0-0.1 [facility] Comment on above: Performed By: #### PSASC #### [facility] [address] [address] [address] Forrest aLuren Basophils/100 WBC (Bld) 0.8 % Normal 0.2-2.0 [facility] Comment on above: Performed By: #### PSASC #### [facility] [address] [place] [address] Dr. Forrest Lauren EO # 0.4 103/ul Normal 0.0-0.7 [facility] Comment on above: Performed By: #### PSASC #### [facility] [address] [place] [address] Dr. Forrest Lauren Eosinophils/100 WBC (Bld) 4.8 % Normal 0.9-7.0 [facility] Comment on above: Performed By: #### PSASC #### [facility] [address] [place] [address] Dr. Forrest Lauren Erythrocyte distribution width (RBC) [Ratio] 12.7 % Normal 11.0-15.0 [facility] Comment on above: Performed By: #### PSASC #### [facility] [address] [place] [address] Dr. Forrest Lauren Hematocrit (Bld) [Volume fraction] 48.3 % Normal 42.0-54.0 [facility] Comment on above: Performed By: #### PSASC #### [facility] [address] [place] [address] Dr. Forrest Lauren Hemoglobin (Bld) [Mass/Vol] 16.4 g/dL Normal 14.0-18.0 [facility] Comment on above: Performed By: #### PSASC #### [facility] [address] [place] [address] Dr. Forrest Lauren IG # 0.05 10e3/ul Critically high 0.00-0.03 [facility] Comment on above: Performed By: #### PSASC #### [facility] [address] [place] [address] Dr. Forrest Lauren IG % 0.6 % Critically high 0.0-0.5 [facility] Comment on above: Performed By: #### PSASC #### [facility] [address] [place] [address] Dr. Forrest Lauren LYMPH # 2.0 103/ul Normal 1.2-3.8 [facility] Comment on above: Performed By: #### PSASC #### [facility] [address] [place] [address] Dr. Forrest Lauren Lymphocytes/100 WBC (Bld) 22.6 % Normal 20.5-60.0 [facility] Comment on above: Performed By: #### PSASC #### [facility] [address] [place] [address] Dr. Forrest Lauren MANUAL DIFF REQ NO Normal [facility] Comment on above: Performed By: #### PSASC #### [facility] [address] [place] [address] Dr. Forrest Lauren MCH (RBC) [Entitic mass] 29.8 pg Normal 25.9-34.0 [facility] Comment on above: Performed By: #### PSASC #### [facility] [address] [place] [address] Dr. Forrest Lauren MCHC (RBC) [Mass/Vol] 34.0 g/dL Normal 29.9-35.2 [facility] Comment on above: Performed By: #### PSASC #### [facility] [address] [place] [address] Dr. Forrest Lauren MCV (RBC) [Entitic vol] 87.8 fL Normal 80.0-94.0 [facility] Comment on above: Performed By: #### PSASC #### [facility] [address] [place] [address] Dr. Forrest Lauren MONO # 0.7 103/ul Normal 0.3-0.8 [facility] Comment on above: Performed By: #### PSASC #### [facility] [address] [place] [address] Dr. Forrest Lauren Monocytes/100 WBC (Bld) 8.0 % Normal 1.7-12.0 [facility] Comment on above: Performed By: #### PSASC #### [facility] [address] [place] [address] Dr. Forrest Lauren NEUT # 5.7 103/ul Normal 1.4-6.5 [facility] Comment on above: Performed By: #### PSASC #### [facility] [address] [place] [address] Dr. Forrest Lauren Neutrophils/100 WBC (Bld) 63.2 % Normal 43.0-75.0 [facility] Comment on above: Performed By: #### PSASC #### [facility] [address] [place] [address] Dr. Forrest Lauren Platelet mean volume (Bld) [Entitic vol] 9.7 fL Normal 9.5-13.5 [facility] Comment on above: Performed By: #### PSASC #### [facility] [address] [address] [address] Forrest Lauren PLT 242 103/ul Normal 150-450 [facility] Comment on above: Performed By: #### PSASC #### [facility] [address] [place] [address] Dr. Forrest Lauren RBC 5.50 106/ul Normal 4.70-6.10 [facility] Comment on above: Performed By: #### PSASC #### [facility] [address] [place] [address] Dr. Forrest Lauren WBC 9.0 103/ul Normal 4.0-11.0 [facility] Comment on above: Performed By: #### PSASC #### [facility] [address] [place] [address] Dr. Forrest Lauren GLYCOHEMOGLOBIN A1Con 2021 ADA RECOMMENDATION ADA THERAPEUTIC TARGET 6.0 - 7.0 ACTION SUGGESTED > 7.0 Normal [facility] Comment on above: Performed By: #### A1C #### [facility] [address] [place] [address] Dr. Forrest Lauren Glucose [Mass/Vol] 194 mg/dL Normal [facility] Comment on above: Performed By: #### A1C #### [facility] [address] [place] [address] Dr. Forrest Lauren HbA1c (Bld) [Mass fraction] 8.4 % Critically high <=6.0 [facility] Comment on above: Performed By: #### A1C #### [facility] [address] [place] [address] Dr. Forrest Lauren LIPID PROFILEon 08-26-2021 CHOL-HDL RATIO NORM SEE BELOW Normal [facility] Comment on above: Result Comment: 3.3 - 4.4 LOW RISK 4.4 - 7.1 AVERAGE RISK 7.1 - 11.0 MODERATE RISK >11.0 HIGH RISK Performed By: #### P SASC #### [facility] [address] [address] [address] Forrest Lauren Cholesterol [Mass/Vol] 117 mg/dL Normal <=200 [facility] Comment on above: Performed By: #### PSASC #### [facility] [address] [address] [address] Forrest Lauren Cholesterol in HDL [Mass/Vol] 43 mg/dL Normal [facility] Comment on above: Performed By: #### PSASC #### [facility] [address] [place] [address] Dr. Forrest Lauren Cholesterol in LDL [Mass/Vol] 45.6 mg/dL Normal [facility] Comment on above: Performed By: #### PSASC #### [facility] [address] [place] [address] Dr. Forrest Lauren Cholesterol.tota l/Cholesterol in HDL [Mass ratio] 2.7 {ratio} Normal [facility] Comment on above: Performed By: #### PSASC #### [facility] [address] [place] [address] Dr. Forrest Lauren HDL NORMAL > or = 60 mg/dl - LO W CARDIOVASCULAR RISK <40 mg/dl - HIGH CARDIOVASCULAR RISK Normal [facility] Comment on above: Performed By: #### PSASC #### [facility] [address] [place] [address] Dr. Forrest Lauren LDL CALC NORMAL SEE BELOW Normal [facility] Comment on above: Result Comment: <100 mg/dl OPTIMAL 100 - 129 mg/dl NEAR OR ABOVE OPTIMAL 130 - 159 mg/dl BORDERLINE HIGH 160 - 189 mg/dl HIGH >190 mg/dl VERY HIGH Performed By: #### P SASC #### [facility] [address] [place] [address] Dr. Forrest Lauren Triglyceride [Mass/Vol] 142 mg/dL Normal <=150 [facility] Comment on above: Performed By: #### PSASC #### [facility] [address] [address] [address] Forrest Lauren VLDL CALC 28.4 mg/dL Normal [facility] Comment on above: Performed By: #### PSASC #### [facility] [address] [address] [address] Forrest Lauren PROF 14(COMP METB)on 022 Albumin [Mass/Vol] 4.1 g/dL Normal 3.5-5.0 [facility] Comment on above: Performed By: #### PSASC #### [facility] [address] [place] [address] Dr. Forrest Lauren Albumin/Globulin [Mass ratio] 1.2 {ratio} Normal [facility] Comment on above: Performed By: #### PSASC #### [facility] [address] [place] [address] Dr. Forrest Lauren ALP [Catalytic activity/Vol] 82 U/L Normal 38-126 [facility] Comment on above: Performed By: #### PSASC #### [facility] [address] [place] [address] Dr. Forrest Lauren ALT [Catalytic activity/Vol] 38 U/L Normal 21-72 [facility] Comment on above: Performed By: #### PSASC #### [facility] [address] [place] [address] Dr. Forrest Lauren Anion gap [Moles/Vol] 12.7 mmol/L Normal [facility] Comment on above: Performed By: #### PSASC #### [facility] [address] [place] [address] Dr. Forrest Lauren AST [Catalytic activity/Vol] 18 U/L Normal 17-59 [facility] Comment on above: Performed By: #### PSASC #### [facility] [address] [place] [address] Dr. Forrest Lauren Bilirubin [Mass/Vol] 1.2 mg/dL Normal 0.2-1.3 [facility] Comment on above: Performed By: #### PSASC #### [facility] [address] [address] [address] Forrest Lauren Calcium [Mass/Vol] 9.7 mg/dL Normal 8.4-10.2 [facility] Comment on above: Performed By: #### PSASC #### [facility] [address] [place] [address] Dr. Forrest Lauren Chloride [Moles/Vol] 102 mmol/L Normal 98-107 [facility] Comment on above: Performed By: #### PSASC #### [facility] [address] [place] [address] Dr. Forrest Lauren CO2 [Moles/Vol] 30.6 mmol/L Critically high 22.0-30.0 [facility] Comment on above: Performed By: #### PSASC #### [facility] [address] [place] [address] Dr. Forrest Lauren Creatinine [Mass/Vol] 1.09 mg/dL Normal 0.66-1.25 [facility] Comment on above: Performed By: #### PSASC #### [facility] [address] [place] [address] Dr. Forrest Lauren EGFR-AF SENEGALESE >60 Normal >=60 [facility] Comment on above: Performed By: #### PSASC #### [facility] [address] [place] [address] Dr. Forrest Lauren EGFR-NON AF SENEGALESE >60 Normal >=60 [facility] Comment on above: Performed By: #### PSASC #### [facility] [address] [address] [address] Forrest Lauren Globulin (S) [Mass/Vol] 3.4 g/dL Normal [facility] Comment on above: Performed By: #### PSASC #### [facility] [address] [place] [address] Dr. Forrest Lauren Glucose [Mass/Vol] 238 mg/dL Critically high 74-106 [facility] Comment on above: Performed By: #### PSASC #### [facility] [address] [address] [address] Forrest Lauren Potassium [Moles/Vol] 4.3 mmol/L Normal 3.4-5.0 [facility] Comment on above: Performed By: #### PSASC #### [facility] [address] [place] [address] Dr. Forrest Lauren Protein [Mass/Vol] 7.5 g/dL Normal 6.1-8.2 [facility] Comment on above: Performed By: #### PSASC #### [facility] [address] [place] [address] Dr. Forrest Lauren Sodium [Moles/Vol] 141 mmol/L Normal 137-145 [facility] Comment on above: Performed By: #### PSASC #### [facility] [address] [place] [address] Dr. Forrest Lauren Urea nitrogen [Mass/Vol] 20.0 mg/dL Normal 9.0-20.0 [facility] Comment on above: Performed By: #### PSASC #### [facility] [address] [place] [address] Dr. Forrest Lauren Urea nitrogen/Creatin ine [Mass ratio] 18.3 mg/mg Normal [facility] Comment on above: Performed By: #### PSASC #### [facility] [address] [place] [address] Dr. Forrest Lauren URIC ACID SERUMon 08-26-2021 Urate [Mass/Vol] 4.8 mg/dL Normal 3.5-8.5 [facility] Comment on above: Performed By: #### PSASC #### [facility] [address] [place] [address] Dr. Forrest Lauren Covid-19 PCR ([facility])on Sample Type Test performed using RT-PCR from a nasopharyngeal collected specimen. Normal [facility] Comment on above: Performed By: #### PSASC #### [facility] [address] [place] [address] Dr. Forrest Lauren SARS-CoV-2 (COVID-19) RNA MERA+probe Ql (Unsp spec) Detected Abnormal NOT DETECTED [facility] Comment on above: Result Comment: This test is not yet janusz roved or cleared by the [place] FDA. When there are no FDA-approved or cleared tests available, and other criteria are met, FDA can make tests available under an emergency access mechanism called an Emergency Use Authorization (EUA). The EUA for this test is supported by the [place] of Health and Human Service's (HHS's) declaration [...] used). Performed By: #### P SASC #### [facility] [address] [place] [address] Dr. Forrest Lauren POINT OF CARE GLUCOSEon 05-0 Glucose [Mass/Vol] 255 mg/dL Critically high 74-106 [facility] Comment on above: Performed By: #### POCGLUC #### [facility] [address] [place] [address] Matias Rivas XR CHEST 1 Von 12-07-2020 [...] AMARIS WALKER Date: 2020-12-06 22:04 Normal [facility] INSULINon 10-02-2020 Insulin 16.9 uIU/mL Normal 2.6-24.9 [facility] Comment on above: Performed By: #### PSASC #### [facility] [address] [place] [address] Dr. Forrest Lauren CBC AUTO DIFFon 10-01-2020 BASO # 0.1 103/ul Normal 0.0-0.1 [facility] Comment on above: Performed By: #### CBC #### [facility] [address] [id number] Matias Evelyn Basophils/100 WBC (Bld) 0.6 % Normal 0.2-2.0 [facility] Comment on above: Performed By: #### CBC #### [facility] [address] [place] [address] Matias Evelyn EO # 0.4 103/ul Normal 0.0-0.7 [facility] Comment on above: Performed By: #### CBC #### [facility] [address] [place] [address] Matias Evelyn Eosinophils/100 WBC (Bld) 4.2 % Normal 0.9-7.0 [facility] Comment on above: Performed By: #### CBC #### [facility] [address] [place] [address] Matias Evelyn Erythrocyte distribution width (RBC) [Ratio] 13.1 % Normal 11.0-15.0 [facility] Comment on above: Performed By: #### CBC #### [facility] [address] [place] [address] Matias Evelyn Hematocrit (Bld) [Volume fraction] 50.2 % Normal 42.0-54.0 [facility] Comment on above: Performed By: #### CBC #### [facility] [address] [place] [address] Matias Evelyn Hemoglobin (Bld) [Mass/Vol] 16.6 g/dL Normal 14.0-18.0 [facility] Comment on above: Performed By: #### CBC #### [facility] [address] [place] [address] Matias Evelyn IG # 0.05 10e3/ul Critically high 0.00-0.03 [facility] Comment on above: Performed By: #### CBC #### [facility] [address] [place] [address] Matias Evelyn IG % 0.6 % Critically high 0.0-0.5 [facility] Comment on above: Performed By: #### CBC #### [facility] [address] [place] [address] Matias Evelyn LYMPH # 1.9 103/ul Normal 1.2-3.8 [facility] Comment on above: Performed By: #### CBC #### [facility] [address] [place], [place] [id number] Matias Rivas Lymphocytes/100 WBC (Bld) 22.2 % Normal 20.5-60.0 [facility] Comment on above: Performed By: #### CBC #### [facility] [address] [place] [address] Matias Rivas MANUAL DIFF REQ NO Normal [facility] Comment on above: Performed By: #### CBC #### [facility] [address] [place] [address] Matias Rivas MCH (RBC) [Entitic mass] 29.4 pg Normal 25.9-34.0 [facility] Comment on above: Performed By: #### CBC #### [facility] [address] [place] [address] Matiaswali Rivas MCHC (RBC) [Mass/Vol] 33.1 g/dL Normal 29.9-35.2 [facility] Comment on above: Performed By: #### CBC #### [facility] [address] [place] [address] Matias Rivas MCV (RBC) [Entitic vol] 88.8 fL Normal 80.0-94.0 [facility] Comment on above: Performed By: #### CBC #### [facility] [address] [place] [address] Matias Rodasen MONO # 0.7 103/ul Normal 0.3-0.8 [facility] Comment on above: Performed By: #### CBC #### [facility] [address] [place] [address] Matiaswali Rivas Monocytes/100 WBC (Bld) 7.7 % Normal 1.7-12.0 [facility] Comment on above: Performed By: #### CBC #### [facility] [address] [place] [address] Matias Evleyn NEUT # 5.7 103/ul Normal 1.4-6.5 [facility] Comment on above: Performed By: #### CBC #### [facility] [address] [place], [place] [address] Matias Rivas Neutrophils/100 WBC (Bld) 64.7 % Normal 43.0-75.0 [facility] Comment on above: Performed By: #### CBC #### [facility] [address] [place], [place] [id number] Matias Rivas Platelet mean volume (Bld) [Entitic vol] 10.4 fL Normal 9.5-13.5 [facility] Comment on above: Performed By: #### CBC #### [facility] [address] [place] [address] Matiaswali Rodasen PLT 243 103/ul Normal 150-450 [facility] Comment on above: Performed By: #### CBC #### [facility] [address] [place] [address] Matias Evelyn RBC 5.65 106/ul Normal 4.70-6.10 [facility] Comment on above: Performed By: #### CBC #### [facility] [address] [place] [address] Matiaswali Rivas WBC 8.7 103/ul Normal 4.0-11.0 [facility] Comment on above: Performed By: #### CBC #### [facility] [address] [place] [address] Matias Rivas FREE THYROXINE INDEX T7on FTI 2.11 Normal [facility] Comment on above: Performed By: #### URIC, CMP, T7, PSASC, TSH, LIPID #### [facility] [address] [place] [address] Matias Rivas T3U 34.0 % Normal 23.5-40.5 [facility] Comment on above: Performed By: #### URIC, CMP, T7, PSASC, TSH, LIPID #### [facility] [address] [place], [place] [id number] Matiaswali Rodasen T4 [Mass/Vol] 6.20 ug/dL Normal 5.53-11.00 [facility] Comment on above: Performed By: #### URIC, CMP, T7, PSASC, TSH, LIPID #### [facility] [address] [place], [place] [address] Matias Rivas GLYCOHEMOGLOBIN A1Con 2020 ADA RECOMMENDATION ADA THERAPEUTIC TARGET 6.0 - 7.0 ACTION SUGGESTED > 7.0 Normal [facility] Comment on above: Performed By: #### A1C #### [facility] [address] [address] Matias Rivas Glucose [Mass/Vol] 266 mg/dL Normal [facility] Comment on above: Performed By: #### A1C #### [facility] [address] [address] Matias Evelyn HbA1c (Bld) [Mass fraction] 10.9 % Critically high <=6.0 [facility] Comment on above: Performed By: #### A1C #### [facility] [address] [place] [address] Matias Rivas LIPID PROFILEon 10-01-2020 CHOL-HDL RATIO NORM SEE BELOW Normal [facility] Comment on above: Result Comment: 3.3 - 4.4 LOW RISK 4.4 - 7.1 AVERAGE RISK 7.1 - 11.0 MODERATE RISK >11.0 HIGH RISK Performed By: #### P SASC #### [facility] [address] [place] [address] Dr. Forrest Lauren Cholesterol [Mass/Vol] 110 mg/dL Normal <=200 [facility] Comment on above: Performed By: #### PSASC #### [facility] [address] [place] [address] Dr. Forrest Lauren Cholesterol in HDL [Mass/Vol] 36 mg/dL Normal [facility] Comment on above: Performed By: #### PSASC #### [facility] [address] [address] [address] Forrest Lauren Cholesterol in LDL [Mass/Vol] 36.2 mg/dL Normal [facility] Comment on above: Performed By: #### PSASC #### [facility] [address] [place] [address] Dr. Forrest Lauren Cholesterol.tota l/Cholesterol in HDL [Mass ratio] 3.1 {ratio} Normal [facility] Comment on above: Performed By: #### PSASC #### [facility] [address] [address] [address] Forrest Lauren HDL NORMAL > or = 60 mg/dl - LO W CARDIOVASCULAR RISK <40 mg/dl - HIGH CARDIOVASCULAR RISK Normal [facility] Comment on above: Performed By: #### PSASC #### [facility] [address] [address] [address] Forrest Lauren LDL CALC NORMAL SEE BELOW Normal [facility] Comment on above: Result Comment: <100 mg/dl OPTIMAL 100 - 129 mg/dl NEAR OR ABOVE OPTIMAL 130 - 159 mg/dl BORDERLINE HIGH 160 - 189 mg/dl HIGH >190 mg/dl VERY HIGH Performed By: #### P SASC #### [facility] [address] [place] [address] Dr. Forrest Lauren Triglyceride [Mass/Vol] 189 mg/dL Critically high <=150 [facility] Comment on above: Performed By: #### PSASC #### [facility] [address] [place] [address] Dr. Forrest Lauren VLDL CALC 37.8 mg/dL Normal [facility] Comment on above: Performed By: #### PSASC #### [facility] [address] [place] [address] Dr. Forrest Lauren PROF 14(COMP METB)on 021 Albumin [Mass/Vol] 4.1 g/dL Normal 3.5-5.0 [facility] Comment on above: Performed By: #### URIC, CMP, T7, PSASC, TSH, LIPID #### [facility] [address] [place] [address] Matias Rivas Albumin/Globulin [Mass ratio] 1.2 {ratio} Normal [facility] Comment on above: Performed By: #### URIC, CMP, T7, PSASC, TSH, LIPID #### [facility] [address] [place] [address] Matias Rivas ALP [Catalytic activity/Vol] 80 U/L Normal 38-126 [facility] Comment on above: Performed By: #### URIC, CMP, T7, PSASC, TSH, LIPID #### [facility] [address] [address] Matias Evelyn ALT [Catalytic activity/Vol] 42 U/L Normal 21-72 [facility] Comment on above: Performed By: #### URIC, CMP, T7, PSASC, TSH, LIPID #### [facility] [address] [address] Matias Evelyn Anion gap [Moles/Vol] 12.3 mmol/L Normal [facility] Comment on above: Performed By: #### URIC, CMP, T7, PSASC, TSH, LIPID #### [facility] [address] [place] [address] Matias Evelyn AST [Catalytic activity/Vol] 24 U/L Normal 17-59 [facility] Comment on above: Performed By: #### URIC, CMP, T7, PSASC, TSH, LIPID #### [facility] [address] [place] [address] Matias Evelyn Bilirubin [Mass/Vol] 1.3 mg/dL Normal 0.2-1.3 [facility] Comment on above: Performed By: #### URIC, CMP, T7, PSASC, TSH, LIPID #### [facility] [address] [place] [address] Matias Evelyn Calcium [Mass/Vol] 9.3 mg/dL Normal 8.4-10.2 [facility] Comment on above: Performed By: #### URIC, CMP, T7, PSASC, TSH, LIPID #### [facility] [address] [place] [address] Matias Evelyn Chloride [Moles/Vol] 103 mmol/L Normal 98-107 [facility] Comment on above: Performed By: #### URIC, CMP, T7, PSASC, TSH, LIPID #### [facility] [address] [place] [address] Matias Evelyn CO2 [Moles/Vol] 30.0 mmol/L Normal 22.0-30.0 [facility] Comment on above: Performed By: #### URIC, CMP, T7, PSASC, TSH, LIPID #### [facility] [address] [address] Matias Evelyn Creatinine [Mass/Vol] 1.20 mg/dL Normal 0.66-1.25 [facility] Comment on above: Performed By: #### URIC, CMP, T7, PSASC, TSH, LIPID #### [facility] [address] [address] Matias Evelyn EGFR-AF SENEGALESE >60 Normal >=60 [facility] Comment on above: Performed By: #### URIC, CMP, T7, PSASC, TSH, LIPID #### [facility] [address] [address] Matias Evelyn EGFR-NON AF SENEGALESE >60 Normal >=60 [facility] Comment on above: Performed By: #### URIC, CMP, T7, PSASC, TSH, LIPID #### [facility] [address] [place] [address] Matias Evelyn Globulin (S) [Mass/Vol] 3.5 g/dL Normal [facility] Comment on above: Performed By: #### URIC, CMP, T7, PSASC, TSH, LIPID #### [facility] [address] [address] Matias Evelyn Glucose [Mass/Vol] 269 mg/dL Critically high 74-106 [facility] Comment on above: Performed By: #### URIC, CMP, T7, PSASC, TSH, LIPID #### [facility] [address] [place] [address] Matias Evelyn Potassium [Moles/Vol] 4.3 mmol/L Normal 3.4-5.0 [facility] Comment on above: Performed By: #### URIC, CMP, T7, PSASC, TSH, LIPID #### [facility] [address] [address] Matias Evelyn Protein [Mass/Vol] 7.6 g/dL Normal 6.1-8.2 [facility] Comment on above: Performed By: #### URIC, CMP, T7, PSASC, TSH, LIPID #### [facility] [address] [address] Matias Evelyn Sodium [Moles/Vol] 141 mmol/L Normal 137-145 [facility] Comment on above: Performed By: #### URIC, CMP, T7, PSASC, TSH, LIPID #### [facility] [address] [place] [address] Matias Evelyn Urea nitrogen [Mass/Vol] 17.0 mg/dL Normal 9.0-20.0 [facility] Comment on above: Performed By: #### URIC, CMP, T7, PSASC, TSH, LIPID #### [facility] [address] [place] [address] Matias Evelyn Urea nitrogen/Creatin ine [Mass ratio] 14.2 mg/mg Normal [facility] Comment on above: Performed By: #### URIC, CMP, T7, PSASC, TSH, LIPID #### [facility] [address] [place] [address] Matias Rivas TSHon 10-01-2020 TSH 1.574 uIU/mL Normal 0.470-4.68 0 [facility] Comment on above: Performed By: #### PSASC #### [facility] [address] [place] [address] Dr. Forrest Lauren TSH RANGE SEE BELOW Normal [facility] Comment on above: Result Comment: <0.34 UIU/ml HYPERTHYROI D 0.34-5.60 UIU/ml EUTHYROID >5.60 UIU/ml HYPOTHYROID Performed By: #### P SASC #### [facility] [address] [place] [address] Dr. oFrrest Lauren URIC ACID SERUMon 10-01-2020 Urate [Mass/Vol] 4.8 mg/dL Normal 3.5-8.5 [facility] Comment on above: Performed By: #### PSASC #### [facility] [address] [place] [address] Dr. Forrest Lauren Cardiovascular Lab Reporton 08-03-2017 Cardiovascular Lab Report [id number] Physician: Renato Miller M.D.Medicine Service Date: 2017Division of Birthdate: 7Cardiology [facility], [place] [address]Nvdzx Fax Cardiovascular Laboratory ReportINDICATION: Hoang Bonilla is [...] the right internal jugular vein and a 6-Singaporean x 11cm sheath was placed. A 6-Singaporean Griffith catheter was used for right heartcatheterization with measurement of pressures and calculation of cardiacoutput using the estimated Luke method. Griffith catheter was removed.Using ultrasound guidance and micropuncture technique, access was obtainedin the left radial artery and a 6-Singaporean x 11 cm Hydrophilic sheath wasadvanced. Verapamil [...] 08/02/2017/02:42 P/Renato Staton M.D.Date Trans: 08/03/2017 11:29 [id number]: Yfn Mata D.O. [address] [place] [address] [facility] Encounters Encounter Date Encounter Type Care Provider Facility Start: 08-26-2021 End: 08-26-2021 ambulatory ONEYDA BAKER Facility:[facility] Start: 02-23-2021 ambulatory ONEYDA BAKER Facility:[facility] Start: 12-06-2020 End: 12-07-2020 ambulatory ILAN TODD Facility:[facility] Start: 10-07-2020 Encounter for genera l adult medical examination without abnormal findings ONEYDA BAKER [facility] Start: 10-01-2020 End: 10-02-2020 ambulatory ONEYDA BAKER Facility:[facility] Start: 10-01-2020 End: 10-02-2020 Encounter for general adult medical examination without abnormal findings ONEYDA BAKER Facility:[facility] Start: 2017 End: 08-03-2017 Ambulatory PROVIDER UNKNOWN Facility:[facility] Start: 07-24-2017 End: 07-25-2017 Ambulatory DEFAULT PHYSICIAN Facility:[facility] Start: 07-19-2017 End: 07-20-2017 Ambulatory DEFAULT PHYSICIAN Facility:[facility] Start: 06-18-2017 End: 06-19-2017 Ambulatory DEFAULT PHYSICIAN Facility:[facility] Procedures Date Procedure Procedure Detail Performing Clinician Start: 08-26-2021 PSA screening ONEYDA KHAN Comment on above: Performed By: #### P SASC #### [facility] [address] [place], [place] [address] Dr. Forrest Lauren Start: 10-01-2020 PSA screening ONEYDA KHAN Comment on above: Performed By: #### U TARIK, CMP, T7, PSASC, TSH, LIPID #### [facility] [address] [place], [place] [address] Matias Rivas Payers Date Payer Category Payer [facility] [id number] 1958 Medicare [id number] 1958 Self-pay 1955 Unknown [id number] 1955 Unknown [id number] [id number] [id number] 1955 Unknown [id number] [id number] [id number] 1955 Unknown [id number] [id number] [id number] Unknown Summary Purpose Family History No Family History Records FoundNo Family History Records Found Advance Directives No Advanced Directives Records FoundNo Advanced Directives Records Found Additional Source Comments (unrecognized sect ion and content) No Status Records FoundNo Status Records Found INFORMATION SOURCE (unrecogn ized section and content) DATE CREATED AUTHOR 01/29/2018 [facility] DATE CREATED AUTHOR AUTHOR'S ORGANIZ ATION 09/01/2021 [facility] FOR RECORDS PERTAINING TO PATIENTS WHO [...] BE BASED ON THE PRIMARY CLINICAL RECORDS. [facility] [employer] [facility]. provides no warranty or guarantee of the accuracy or completeness of information in this document.
[2023-09-03 17:02] LABS: Bilirubin Urine NEGATIVE (NEGATIVE); Blood Urine NEGATIVE (NEGATIVE); Clarity Urine CLEAR (CLEAR); Color Urine LT. YELLOW (YELLOW); Glucose Urine UA >=1000 mg/dL (NEGATIVE); Ketones Urine NEGATIVE (NEGATIVE); Leukocyte Esterase Urine NEGATIVE (NEGATIVE); Nitrite Urine NEGATIVE (NEGATIVE); Protein Urine NEGATIVE (NEG/TRACE); Specific Gravity Urine 1.025 (1.005-1.025); Urobilinogen Urine 0.2 EU/dL (0.2-1.0); pH Urine 5.5 (5.0-9.0)
[2023-09-03 17:40] LABS: Bacteria Urine NONE SEEN #/HPF (NONE SEEN); Cast Seen? NONE SEEN #/LPF (NONE SEEN); Crystals Seen? None Seen #/HPF (None Seen); Mucus Urine NONE SEEN (NONE SEEN); RBC Urine NONE SEEN #/HPF (0-2); Squamous Epithelial Cell Urine RARE #/LPF (NONE/RARE); WBC Urine NONE SEEN #/HPF (NONE SEEN)
[2023-09-04 14:18] LABS: Occult Blood Negative
== END 2023-09-03 16:19 | disposition home or self-care (01) ==
LOC: LAB 16:23
PROVIDERS: PCP Nurse Practitioner Family; Visit Provider Nurse Practitioner Family
DX: N13.9 Obstructive and reflux uropathy, unspecified (principal); I10 Essential (primary) hypertension
CPT/HCPCS: 81001; 87086; G0328

== ENCOUNTER 2024-02-06 14:43 | Outpatient (OUT) | payer MEDICARE, SELFPAY | END 2024-02-06 14:44 | disposition home or self-care (01) | LOC: PST 14:43 | PROVIDERS: PCP Nurse Practitioner Family; Visit Provider Urology | DX: Z01.818 Encounter for other preprocedural examination (principal); N40.1 Benign prostatic hyperplasia with lower urinary tract symptoms; N32.81 Overactive bladder ==

== ENCOUNTER 2024-02-11 07:35 | Day surgery (SDC) | payer MEDICARE, SELFPAY ==
--- OUTSIDE RECORDS SUMMARY | 2024-02-11 07:38 | XMS_ITS | CCD ---
Author Organization [facility] Care Team Providers Care Bookkeeper Receptionist Name Role Phone PHYSICIAN, DEFAULT Unavailable Unavailable PHYSICIAN, DEFAULT Unavailable Unavailable PHYSICIAN, DEFAULT Unavailable Unavailable PHYSICIAN, DEFAULT Unavailable Unavailable PHYSICIAN, DEFAULT Unavailable Unavailable PHYSICIAN, DEFAULT Unavailable Unavailable UNKNOWN, PROVIDER Unavailable Unavailable UNKNOWN, PROVIDER Unavailable Unavailable YFN MATA Unavailable Unavailable YFN MATA Unavailable Unavailable AILIN BAKER Admitting Unavailable AILIN BAKER Attending Unavailable RAY, AILIN Primary Care Unavailable AILIN BAKER Admitting Unavailable AILIN BAKER Attending Unavailable AILIN BAKER Consulting Unavailable AILIN BAKER Primary Care Unavailable AILIN BAKER Attending Unavailable YFN MATA Primary Care Unavailable AILIN BAKER Consulting Unavailable AILIN BAKER Admitting Unavailable ILAN TODD Attending Unavailable ILAN TODD Consulting Unavailable ILAN TODD Admitting Unavailable AILIN BAKER Primary Care Unavailable AMARIS WALKER Consulting Unavailable AILIN GREEN Primary Care Physician [phone] AILIN GREEN Referring Unavailable Moody POP Attending Unavailable Moody POP Attending Unavailable Allergies Allergy Classification Reported Allergen(s) Allergy Type Date of Onset Reaction(s) Facility (2 sources) No Known Allergies; 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: [No Known Allergies] Propensity to adverse reactions (disorder) 7 [facility] (1 source) No Known Medication Allergies; 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: [No Known Medication Allergies] Propensity to adverse reactions (disorder) [facility] Medications Current Medications Medication Drug Class(es) Dates Sig (Normalized) Sig (Original) amLODIPine 10 mg oral tablet (1 source) Dihydropyridine Calcium Channel Erick Start: 01-21-2024 amLODIPine 10 mg Tab 90 tab(s), 0 Refill(s), Refills(s) 0 Start Date: 01/21/24 Status: Ordered atorvastatin 40 mg oral tablet (1 source) HMG-CoA Reductase Inhibitor Start: 01-21-2024 atorvastatin 40 mg Tab 90 tab(s), 0 Refill(s), Refills(s) 0 Start Date: 01/21/24 Status: Ordered carvedilol 6.25 mg oral tablet (1 source) alpha-Adrenergic Erick, beta-Adrenergic Erick Start: 01-21-2024 carvedilol 6.25 mg Tab 0 Refill(s), Refills(s) 0 Start Date: 01/21/24 Status: Ordered empagliflozin 25 mg oral tablet (1 source) Sodium-Glucose Cotransporter 2 Inhibitor Start: 01-21-2024 Jardiance 25 mg oral tablet 90 tab(s), 0 Refill(s), Refills(s) 0 Start Date: 01/21/24 Status: Ordered losartan potassium 100 mg oral tablet (1 source) Angiotensin 2 Receptor Erick Start: 01-21-2024 losartan 100 mg Tab 90 tab(s), 0 Refill(s), Refills(s) 0 Start Date: 01/21/24 Status: Ordered metFORMIN hydrochloride 1000 mg oral tablet (1 source) Biguanide Start: 01-21-2024 metformin 1000 mg Tab 0 Refill(s), Refills(s) 0 Start Date: 01/21/24 Status: Ordered SITagliptin 100 mg oral tablet (1 source) Dipeptidyl Peptidase 4 Inhibitor Start: 01-21-2024 Januvia 100 mg Tab 90 tab(s), 0 Refill(s), Refills(s) 0 Start Date: 01/21/24 Status: Ordered tamsulosin hydrochloride 0.4 mg oral capsule (1 source) alpha-Adrenergic Erick Start: 01-21-2024 End: 01-15-2025 take 1 capsule by mouth once daily Flomax 0.4 mg Cap 0.4 mg = 1 cap(s), Oral, Daily, Stop taking if experiencing dizziness or lightheadedness., X 90 day(s), # 90 cap(s), Refills(s) 3, Pharmacy: [facility], 187, cm, 01/21/24 11:48:00 EDT, Height/Length Dosing, 118, kg, 01/21/24 11:48:00 EDT, Weight Dosing Start Date: 01/21/24 Stop Date: 01/15/25 Status: Ordered Completed/Discontinued Medications Medication Drug Class(es) Dates Sig (Normalized) Sig (Original) ciprofloxacin 500 mg oral tablet (1 source) Quinolone Antimicrobial Start: 01-21-2024 Cipro 500 mg Tab 500 mg = 1 tab(s), Oral, As Directed, Patient to take 1 tab the day before procedure and the 2nd tab the day of procedure once completed, # 2 tab(s), Refills(s) 0, Pharmacy: [id number], 187, cm, 01/21/24 11:48:00 EDT, Height/Length Dosing, 118, kg, 01/21/24 11:48:00 EDT, Weight Dosing Start Date: 01/21/24 Status: Ordered Problems Active Problems Problem Classification Problem Date Documented Date Episodic/Chronic Diabetes mellitus without complication (2 sources) Type 2 diabetes mellitus without complications; 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: [Diabetes mellitus] Onset: 2017 01-21-2024 Chronic Diabetes mellitus without complication (6 sources) Other abnormal glucose; 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: [Glycosuria] Onset: 08-26-2021 Episodic Disorders of lipid metabolism (2 sources) Hyperlipidemia, unspecified; 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: [Hyperlipidemia] Onset: 08-31-2021 01-21-2024 Chronic Essential hypertension (3 sources) Essential (primary) hypertension; 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: [Hypertensive disorder] Onset: 06-20-2017 01-21-2024 Chronic Heart valve disorders (1 source) Nonrheumatic mitral (valve) insufficiency; 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: [NONRHEUMATIC MITRAL (VALVE) INSUFFICIENCY] Onset: 2017 Chronic Hyperplasia of prostate (2 sources) Benign prostatic hypertrophy with outflow obstruction; 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: [Benign prostatic hyperplasia with lower urinary tract symptoms] Onset: 01-21-2024 Chronic Other diseases of bladder and urethra (1 source) Detrusor overactivity; 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: [Overactive bladder] Onset: 01-21-2024 Chronic Other diseases of bladder and urethra (1 source) Overactive bladder 01-21-2024 Chronic Other nervous system disorders (1 source) H/O: brain disorder 01-21-2024 Episodic Residual codes; unclassified (1 source) Sleep apnea 01-21-2024 Chronic Respiratory failure; insufficiency; arrest (1 source) Dependence on supplemental oxygen; 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: [DEPENDENCE ON SUPPLEMENTAL OXYGEN] Onset: 2017 Chronic Unclassified (1 source) Obstructive sleep apnea (adult) (pediatric); 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: [OBSTRUCTIVE SLEEP APNEA (ADULT) (PEDIATRIC)] Onset: 2017 Chronic Unclassified (7 sources) Abnormal result of other cardiovascular function study; 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: [Encounter for screening for malignant neoplasm of prostate] Onset: 2017 Episodic Unclassified (2 sources) Unknown / UNK(Unknown) Onset: 2017 Unclassified (1 source) 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; 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: [ASSISTED (CURRENT) USE OF ORAL 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 DRUGS] Onset: 2017 Unclassified (1 source) Patient encounter status 01-21-2024 Viral infection (1 source) COVID-19; 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: [COVID-19] Onset: 12-08-2020 Past or Other Problems Problem Classification Problem Date Documented Da te Episodic/Chronic Other aftercare (1 source) retirement (current) use of aspirin; 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: [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 Consent for Procedure/Surger yon 01-22-2024 Consent for Procedure/Surgery [id number]#[id number] [facility] Physician Referralon 024 Physician Referral [id number]#[id number] [facility] Screenson 01-22-2024 Screens [id number]#[id number] [facility] Ambulatory Visit Summaryon 0 01-21-2024 Ambulatory Visit Summary HOANG TRAN :1955 Visit Date:01/21/2024 Ambulatory Visit Instructions Your Diagnosis BPH with obstruction/lower urinary tract symptoms OAB (overactive bladder) Glucosuria Screening PSA (prostate specific antigen) Your Care Team Attending Physician - Moody POP MD Primary Care Physician - AILIN GREEN CNP Referring Physician - AILIN GREEN CNP This Is Your Medications List Contact prescribing physician if questions or concerns amlodipine (amLODIPine 10 mg Tab) atorvastatin (atorvastatin 40 mg Tab) carvedilol (carvedilol 6.25 mg Tab) empagliflozin (Jardiance 25 mg oral tablet) losartan (losartan 100 mg Tab) metformin (metformin 1000 mg Tab) sitagliptin (Januvia 100 mg Tab) Procedures Performed Colonoscopy (2013), Brain tumor (2004), Back, Tonsillectomy. Discharge Vitals Heart Rate (Peripheral) 70 Respiratory Rate 16 Blood Pressure 108/72 Height 187 cm Height 74 in Weight 118 kg Weight 259.6 lb BMI 33.74 What to do next You Need to Schedule the Following Appointments Follow Up with DONN ELLIS, Moody Aranda, URL When: Where: [facility] [address], [place] [address]- Medications What When Instructions Unchanged amlodipine (amLODIPine 10 mg Tab) 90 tab(s), 0 Refill(s) Contact prescribing physician if questions or concerns Unchanged atorvastatin (atorvastatin 40 mg Tab) 90 tab(s), 0 Refill(s) Contact prescribing physician if questions or concerns Unchanged carvedilol (carvedilol 6.25 mg Tab) 0 Refill(s) Contact prescribing physician if questions or concerns Unchanged empagliflozin (Jardiance 25 mg oral tablet) 90 tab(s), 0 Refill(s) Contact prescribing physician if questions or concerns Unchanged losartan (losartan 100 mg Tab) 90 tab(s), 0 Refill(s) Contact prescribing physician if questions or concerns Unchanged metformin (metformin 1000 mg Tab) 0 Refill(s) Contact prescribing physician if questions or concerns Unchanged sitagliptin (Januvia 100 mg Tab) 90 tab(s), 0 Refill(s) Contact prescribing physician if questions or concerns Allergies No Known Medication Allergies Problems Ongoing - Any problem that you are currently receiving treatment for. BPH with obstruction/lower urinary tract symptoms Diabetes mellitus Glucosuria History of brain tumor Hyperlipidemia Hypertensive disorder OAB (overactive bladder) Screening PSA (prostate specific antigen) Sleep apnea Patient Survey You may receive a survey via text or e-mail asking about your office visit. Please share your experience with us by completing your survey. We appreciate your feedback and thank you for choosing us for your care. Education Materials Benign Prostatic Hyperplasia Benign prostatic hyperplasia (BPH) is an enlarged prostate gland that is caused by the normal aging process. The prostate may get bigger as a man gets older. The condition is not caused by cancer. The prostate is a walnut-sized gland that is involved in the production of semen. It is located in front of the rectum and below the bladder. The bladder stores urine. The urethra carries stored urine out of the body. An enlarged prostate can press on the urethra. This can make it harder to pass urine. The buildup of urine in the bladder can cause infection. Back pressure and infection may progress to bladder damage and kidney (renal) failure. What are the causes? This condition is part of the normal aging process. However, not all men develop problems from this condition. If the prostate enlarges away from the urethra, urine flow will not be blocked. If it enlarges toward the urethra and compresses it, there will be problems passing urine. What increases the risk? This condition is more likely to develop in men older than 50 years. What are the signs or symptoms? Symptoms of this condition include: ? Getting up often during the night to urinate. ? Needing to urinate frequently during the day. ? Difficulty starting urine flow. ? Decrease in size and strength of your urine stream. ? Leaking (dribbling) after urinating. ? Inability to pass urine. This needs immediate treatment. ? Inability to completely empty your bladder. ? Pain when you pass urine. This is more common if there is also an infection. ? Urinary tract infection (UTI). How is this diagnosed? This condition is diagnosed based on your medical history, a physical exam, and your symptoms. Tests will also be done, such as: ? A post-void bladder scan. This measures any amount of urine that may remain in your bladder after you finish urinating. ? A digital rectal exam. In a rectal exam, your health care provider checks your prostate by putting a lubricated, gloved finger into your rectum to feel the back of your prostate gland. This exam detects the size of your gland and any abnormal lumps or growths. ? An exam of your urine (ur (more content not included)... Normal [facility] Patient Educationon 01-21-20 24 Patient Education Urology Benign Prostatic Hyperplasia Benign prostatic hyperplasia (BPH) is an enlarged prostate gland that is caused by the normal aging process. The prostate may get bigger as a man gets older. The condition is not caused by cancer. The prostate is a walnut-sized gland that is involved in the production of semen. It is located in front of the rectum and below the bladder. The bladder stores urine. The urethra carries stored urine out of the body. An enlarged prostate can press on the urethra. This can make it harder to pass urine. The buildup of urine in the bladder can cause infection. Back pressure and infection may progress to bladder damage and kidney (renal) failure. What are the causes? This condition is part of the normal aging process. However, not all men develop problems from this condition. If the prostate enlarges away from the urethra, urine flow will not be blocked. If it enlarges toward the urethra and compresses it, there will be problems passing urine. What increases the risk? This condition is more likely to develop in men older than 50 years. What are the signs or symptoms? Symptoms of this condition include: ? Getting up often during the night to urinate. ? Needing to urinate frequently during the day. ? Difficulty starting urine flow. ? Decrease in size and strength of your urine stream. ? Leaking (dribbling) after urinating. ? Inability to pass urine. This needs immediate treatment. ? Inability to completely empty your bladder. ? Pain when you pass urine. This is more common if there is also an infection. ? Urinary tract infection (UTI). How is this diagnosed? This condition is diagnosed based on your medical history, a physical exam, and your symptoms. Tests will also be done, such as: ? A post-void bladder scan. This measures any amount of urine that may remain in your bladder after you finish urinating. ? A digital rectal exam. In a rectal exam, your health care provider checks your prostate by putting a lubricated, gloved finger into your rectum to feel the back of your prostate gland. This exam detects the size of your gland and any abnormal lumps or growths. ? An exam of your urine (urinalysis). ? A prostate specific antigen (PSA) screening. This is a blood test used to screen for prostate cancer. ? An ultrasound. This test uses sound waves to electronically produce a picture of your prostate gland. Your health care provider may refer you to a specialist in kidney and prostate diseases (urologist). How is this treated? Once symptoms begin, your health care provider will monitor your condition (active surveillance or watchful waiting). Treatment for this condition will depend on the severity of your condition. Treatment may include: ? Observation and yearly exams. This may be the only treatment needed if your condition and symptoms are mild. ? Medicines to relieve your symptoms, including: ? Medicines to shrink the prostate. ? Medicines to relax the muscle of the prostate. ? Surgery in severe cases. Surgery may include: ? Prostatectomy. In this procedure, the prostate tissue is removed completely through an open incision or with a laparoscope or robotics. ? Transurethral resection of the prostate (TURP). In this procedure, a tool is inserted through the opening at the tip of the penis (urethra). It is used to cut away tissue of the inner core of the prostate. The pieces are removed through the same opening of the penis. This removes the blockage. ? Transurethral incision (TUIP). In this procedure, small cuts are made in the prostate. This lessens the prostate's pressure on the urethra. ? Transurethral microwave thermotherapy (TUMT). This procedure uses microwaves to create heat. The heat destroys and removes a small amount of prostate tissue. ? Transurethral needle ablation (TUNA). This procedure uses radio frequencies to destroy and remove a small amount of prostate tissue. ? Interstitial laser coagulation (ILC). This procedure uses a laser to destroy and remove a small amount of prostate tissue. ? Transurethral electrovaporization (TUVP). This procedure uses electrodes to destroy and remove a small amount of prostate tissue. ? Prostatic urethral lift. This procedure inserts an implant to push the lobes of the prostate away from the urethra. Follow these instructions at home: ? Take [id number] and prescription medicines only as told by your health care provider. ? Monitor your symptoms for any changes. Contact your health care provider with any changes. ? Avoid drinking large amounts of liquid before going to bed or out in public. ? Avoid or reduce how much caffeine or alcohol you drink. ? Give yourself time when you urinate. ? Keep all follow-up visits. This is important. Contact a health care provider if: ? You have unexplained back pain. ? Your symptoms do not get better with treatment. ? You develop side effects from the medicine (more content not included)... Normal [facility] INSULINon 08-27-2021 Insulin 19.2 uIU/mL Normal 2.6-24.9 [facility] Comment on above: Performed By: #### I NSULIN #### [facility] [address] [place] [address] Dr. Forrest Lauren CBC AUTO DIFFon 08-26-2021 BASO # 0.1 103/ul Normal 0.0-0.1 [facility] Comment on above: Performed By: #### P SASC #### [facility] [address] [place] [address] Dr. Forrest Lauren Basophils/100 WBC (Bld) 0.8 % Normal 0.2-2.0 [facility] Comment on above: Performed By: #### P SASC #### [facility] [address] [place] [address] Dr. Forrest Lauren EO # 0.4 103/ul Normal 0.0-0.7 [facility] Comment on above: Performed By: #### P SASC #### [facility] [address] [place] [address] Dr. Forrest Lauren Eosinophils/100 WBC (Bld) 4.8 % Normal 0.9-7.0 [facility] Comment on above: Performed By: #### P SASC #### [facility] [address] [place] [address] Dr. Forrest Lauren Erythrocyte distribution width (RBC) [Ratio] 12.7 % Normal 11.0-15.0 [facility] Comment on above: Performed By: #### P SASC #### [facility] [address] [place] [address] Dr. Forrest Lauren Hematocrit (Bld) [Volume fraction] 48.3 % Normal 42.0-54.0 [facility] Comment on above: Performed By: #### P SASC #### [facility] [address] [place] [address] Dr. Forrest Lauren Hemoglobin (Bld) [Mass/Vol] 16.4 g/dL Normal 14.0-18.0 [facility] Comment on above: Performed By: #### P SASC #### [facility] [address] [place] [address] Dr. Forrest Lauren IG # 0.05 10e3/ul Critically high 0.00-0.03 [facility] Comment on above: Performed By: #### P SASC #### [facility] [address] [place] [address] Dr. Forrest Lauren IG % 0.6 % Critically high 0.0-0.5 [facility] Comment on above: Performed By: #### P SASC #### [facility] [address] [place] [address] Dr. Forrest Lauren LYMPH # 2.0 103/ul Normal 1.2-3.8 [facility] Comment on above: Performed By: #### P SASC #### [facility] [address] [place] [address] Dr. Forrest Lauren Lymphocytes/100 WBC (Bld) 22.6 % Normal 20.5-60.0 [facility] Comment on above: Performed By: #### P SASC #### [facility] [address] [place] [address] Dr. Forrest Lauren MANUAL DIFF REQ NO Normal [facility] Comment on above: Performed By: #### P SASC #### [facility] [address] [place] [address] Dr. Forrest Lauren MCH (RBC) [Entitic mass] 29.8 pg Normal 25.9-34.0 [facility] Comment on above: Performed By: #### P SASC #### [facility] [address] [place] [address] Dr. Forrest Lauren MCHC (RBC) [Mass/Vol] 34.0 g/dL Normal 29.9-35.2 [facility] Comment on above: Performed By: #### P SASC #### [facility] [address] [place] [address] Dr. Forrest Lauren MCV (RBC) [Entitic vol] 87.8 fL Normal 80.0-94.0 [facility] Comment on above: Performed By: #### P SASC #### [facility] [address] [place] [address] Dr. Forrest Lauren MONO # 0.7 103/ul Normal 0.3-0.8 [facility] Comment on above: Performed By: #### P SASC #### [facility] [address] [place] [address] Dr. Forrest Lauren Monocytes/100 WBC (Bld) 8.0 % Normal 1.7-12.0 [facility] Comment on above: Performed By: #### P SASC #### [facility] [address] [place] [address] Dr. Forrest Lauren NEUT # 5.7 103/ul Normal 1.4-6.5 [facility] Comment on above: Performed By: #### P SASC #### [facility] [address] [place] [address] Dr. Forrest Lauren Neutrophils/100 WBC (Bld) 63.2 % Normal 43.0-75.0 [facility] Comment on above: Performed By: #### P SASC #### [facility] [address] [place] [address] Dr. Forrest Lauren Platelet mean volume (Bld) [Entitic vol] 9.7 fL Normal 9.5-13.5 [facility] Comment on above: Performed By: #### P SASC #### [facility] [address] [place] [address] Dr. Forrest Lauren PLT 242 103/ul Normal 150-450 [facility] Comment on above: Performed By: #### P SASC #### [facility] [address] [place] [address] Dr. Forrest Lauren RBC 5.50 106/ul Normal 4.70-6.10 [facility] Comment on above: Performed By: #### P SASC #### [facility] [address] [place] [address] Dr. Forrest Lauren WBC 9.0 103/ul Normal 4.0-11.0 [facility] Comment on above: Performed By: #### P SASC #### [facility] [address] [address] [address] Forrest Lauren GLYCOHEMOGLOBIN A1Con 2021 ADA RECOMMENDATION ADA THERAPEUTIC TARGET 6.0 - 7.0 ACTION SUGGESTED > 7.0 Normal [facility] Comment on above: Performed By: #### A 1C #### [facility] [address] [address] [address] Forrest Lauren Glucose [Mass/Vol] 194 mg/dL Normal [facility] Comment on above: Performed By: #### A 1C #### [facility] [address] [address] [address] Forrest Lauren HbA1c (Bld) [Mass fraction] 8.4 % Critically high <=6.0 [facility] Comment on above: Performed By: #### A 1C #### [facility] [address] [place] [address] Dr. Forrest Lauren LIPID PROFILEon 08-26-2021 CHOL-HDL RATIO NORM SEE BELOW Normal [facility] Comment on above: Result Comment: 3.3 - 4.4 LOW RISK 4.4 - 7.1 AVERAGE RISK 7.1 - 11.0 MODERATE RISK >11.0 HIGH RISK Performed By: #### P SASC #### [facility] [address] [place] [address] Dr. Forrest Lauren Cholesterol [Mass/Vol] 117 mg/dL Normal <=200 [facility] Comment on above: Performed By: #### P SASC #### [facility] [address] [place] [address] Dr. Forrest Lauren Cholesterol in HDL [Mass/Vol] 43 mg/dL Normal [facility] Comment on above: Performed By: #### P SASC #### [facility] [address] [place] [address] Dr. Forrest Lauren Cholesterol in LDL [Mass/Vol] 45.6 mg/dL Normal [facility] Comment on above: Performed By: #### P SASC #### [facility] [address] [place] [address] Dr. Forrest Lauren Cholesterol.total /Cholesterol in HDL [Mass ratio] 2.7 {ratio} Normal [facility] Comment on above: Performed By: #### P SASC #### [facility] [address] [address] [address] Forrest Lauren HDL NORMAL > or = 60 mg/dl - LO W CARDIOVASCULAR RISK <40 mg/dl - HIGH CARDIOVASCULAR RISK Normal [facility] Comment on above: Performed By: #### P SASC #### [facility] [address] [address] [address] Forrest Lauren LDL CALC NORMAL SEE BELOW Normal [facility] Comment on above: Result Comment: <100 mg/dl OPTIMAL 100 - 129 mg/dl NEAR OR ABOVE OPTIMAL 130 - 159 mg/dl BORDERLINE HIGH 160 - 189 mg/dl HIGH >190 mg/dl VERY HIGH Performed By: #### P SASC #### [facility] [address] [address] [address] Forrest Lauren Triglyceride [Mass/Vol] 142 mg/dL Normal <=150 [facility] Comment on above: Performed By: #### P SASC #### [facility] [address] [address] [address] Forrest Lauren VLDL CALC 28.4 mg/dL Normal [facility] Comment on above: Performed By: #### P SASC #### [facility] [address] [address] [address] Forrest Lauren PROF 14(COMP METB)on 022 Albumin [Mass/Vol] 4.1 g/dL Normal 3.5-5.0 [facility] Comment on above: Performed By: #### P SASC #### [facility] [address] [address] [address] Forrest Lauren Albumin/Globulin [Mass ratio] 1.2 {ratio} Normal [facility] Comment on above: Performed By: #### P SASC #### [facility] [address] [address] [address] Forrest Lauren ALP [Catalytic activity/Vol] 82 U/L Normal 38-126 [facility] Comment on above: Performed By: #### P SASC #### [facility] [address] [address] [address] Forrest Lauren ALT [Catalytic activity/Vol] 38 U/L Normal 21-72 [facility] Comment on above: Performed By: #### P SASC #### [facility] [address] [address] [address] Forrest Lauren Anion gap [Moles/Vol] 12.7 mmol/L Normal [facility] Comment on above: Performed By: #### P SASC #### [facility] [address] [address] [address] Forrest Lauren AST [Catalytic activity/Vol] 18 U/L Normal 17-59 [facility] Comment on above: Performed By: #### P SASC #### [facility] [address] [address] [address] Forrest Lauren Bilirubin [Mass/Vol] 1.2 mg/dL Normal 0.2-1.3 [facility] Comment on above: Performed By: #### P SASC #### [facility] [address] [address] [address] Forrest Lauren Calcium [Mass/Vol] 9.7 mg/dL Normal 8.4-10.2 [facility] Comment on above: Performed By: #### P SASC #### [facility] [address] [address] [address] Forrest Lauren Chloride [Moles/Vol] 102 mmol/L Normal 98-107 [facility] Comment on above: Performed By: #### P SASC #### [facility] [address] [address] [address] Forrest Lauren CO2 [Moles/Vol] 30.6 mmol/L Critically high 22.0-30.0 [facility] Comment on above: Performed By: #### P SASC #### [facility] [address] [address] [address] Forrest Lauren Creatinine [Mass/Vol] 1.09 mg/dL Normal 0.66-1.25 [facility] Comment on above: Performed By: #### P SASC #### [facility] [address] [address] [address] Forrest Lauren EGFR-AF SWISS >60 Normal >=60 [facility] Comment on above: Performed By: #### P SASC #### [facility] [address] [address] [address] Forrest Lauren EGFR-NON AF SWISS >60 Normal >=60 [facility] Comment on above: Performed By: #### P SASC #### [facility] [address] [address] [address] Forrest Lauren Globulin (S) [Mass/Vol] 3.4 g/dL Normal [facility] Comment on above: Performed By: #### P SASC #### [facility] [address] [address] [address] Forrest Lauren Glucose [Mass/Vol] 238 mg/dL Critically high 74-106 [facility] Comment on above: Performed By: #### P SASC #### [facility] [address] [address] [address] Forrest Lauren Potassium [Moles/Vol] 4.3 mmol/L Normal 3.4-5.0 [facility] Comment on above: Performed By: #### P SASC #### [facility] [address] [place] [address] Dr. Forrest Lauren Protein [Mass/Vol] 7.5 g/dL Normal 6.1-8.2 [facility] Comment on above: Performed By: #### P SASC #### [facility] [address] [address] [address] Forrest Lauren Sodium [Moles/Vol] 141 mmol/L Normal 137-145 [facility] Comment on above: Performed By: #### P SASC #### [facility] [address] [address] [address] Forrest Lauren Urea nitrogen [Mass/Vol] 20.0 mg/dL Normal 9.0-20.0 [facility] Comment on above: Performed By: #### P SASC #### [facility] [address] [address] [address] Forrest Lauren Urea nitrogen/Creatini ne [Mass ratio] 18.3 mg/mg Normal [facility] Comment on above: Performed By: #### P SASC #### [facility] [address] [place] [address] Dr. Forrest Lauren URIC ACID SERUMon 08-26-2021 Urate [Mass/Vol] 4.8 mg/dL Normal 3.5-8.5 [facility] Comment on above: Performed By: #### P SASC #### [facility] [address] [place] [address] Dr. Forrest Lauren [facility]19 [facility]on Sample Type Test performed using RT-PCR from a nasopharyngeal collected specimen. Normal [facility] Comment on above: Performed By: #### P SASC #### [facility] [address] [place] [address] Dr. Forrest Lauren SARS-CoV-2 (COVID-19) RNA MERA+probe Ql (Unsp spec) Detected Abnormal NOT DETECTED [facility] Comment on above: Result Comment: This test is not yet approved or cleared by the [place] FDA. When there are no FDA-approved or cleared tests available, and other criteria are met, FDA can make tests available under an emergency access mechanism called an Emergency Use Authorization (EUA). The EUA for this test is supported by the Environmental Assistant of Health and Human Service's (HHS's) declaration [...] used). Performed By: #### P SASC #### [facility] [address] [place] [address] Dr. Forrest Lauren POINT OF CARE GLUCOSEon Glucose [Mass/Vol] 255 mg/dL Critically high 74-106 [facility] Comment on above: Performed By: #### P OCGLUC #### [facility] [address] [place], [place] [id number] Matias Evelyn XR CHEST 1 Von 12-07-2020 XR CHEST [...] AMARIS WALKER Date: 2020-12-06 22:04 Normal [facility] INSULINon 10-02-2020 Insulin 16.9 uIU/mL Normal 2.6-24.9 [facility] Comment on above: Performed By: #### P [facility] #### [facility] [address] [place] [address] Dr. Forrest Lauren CBC AUTO DIFFon 10-01-2020 BASO # 0.1 103/ul Normal 0.0-0.1 [facility] Comment on above: Performed By: #### C BC #### [facility] [address] [place], [place] [id number] Matias Evelyn Basophils/100 WBC (Bld) 0.6 % Normal 0.2-2.0 [facility] Comment on above: Performed By: #### C BC #### [facility] [address] [place], [place] [id number] Matias Evelyn EO # 0.4 103/ul Normal 0.0-0.7 [facility] Comment on above: Performed By: #### C BC #### [facility] [address] [place] [address] Matias Evelyn Eosinophils/100 WBC (Bld) 4.2 % Normal 0.9-7.0 [facility] Comment on above: Performed By: #### C BC #### [facility] [address] [place] [address] Matias Evelyn Erythrocyte distribution width (RBC) [Ratio] 13.1 % Normal 11.0-15.0 [facility] Comment on above: Performed By: #### C BC #### [facility] [address] [place] [address] Matias Evelyn Hematocrit (Bld) [Volume fraction] 50.2 % Normal 42.0-54.0 [facility] Comment on above: Performed By: #### C BC #### [facility] [address] [place] [address] Matias Evelyn Hemoglobin (Bld) [Mass/Vol] 16.6 g/dL Normal 14.0-18.0 [facility] Comment on above: Performed By: #### C BC #### [facility] [address] [place] [address] Matias Evelyn IG # 0.05 10e3/ul Critically high 0.00-0.03 [facility] Comment on above: Performed By: #### C BC #### [facility] [address] [place] [address] Matias Evelyn IG % 0.6 % Critically high 0.0-0.5 [facility] Comment on above: Performed By: #### C BC #### [facility] [address] [place] [address] Matias Evelyn LYMPH # 1.9 103/ul Normal 1.2-3.8 [facility] Comment on above: Performed By: #### C BC #### [facility] [address] [place] [address] Matias Rivas Lymphocytes/100 WBC (Bld) 22.2 % Normal 20.5-60.0 [facility] Comment on above: Performed By: #### C BC #### [facility] [address] [place] [address] Matias Rivas MANUAL DIFF REQ NO Normal [facility] Comment on above: Performed By: #### C BC #### [facility] [address] [place] [address] Matias Evelyn MCH (RBC) [Entitic mass] 29.4 pg Normal 25.9-34.0 [facility] Comment on above: Performed By: #### C BC #### [facility] [address] [place], [place] [id number] Matias Rivas MCHC (RBC) [Mass/Vol] 33.1 g/dL Normal 29.9-35.2 [facility] Comment on above: Performed By: #### C BC #### [facility] [address] [place], [place] [id number] Matias Rivas MCV (RBC) [Entitic vol] 88.8 fL Normal 80.0-94.0 [facility] Comment on above: Performed By: #### C BC #### [facility] [address] [place], [place] [id number] Matias Evelyn MONO # 0.7 103/ul Normal 0.3-0.8 [facility] Comment on above: Performed By: #### C BC #### [facility] [address] [place], [place] [id number] Matias Evelyn Monocytes/100 WBC (Bld) 7.7 % Normal 1.7-12.0 [facility] Comment on above: Performed By: #### C BC #### [facility] [address] [place] [address] Matias Evelyn NEUT # 5.7 103/ul Normal 1.4-6.5 [facility] Comment on above: Performed By: #### C BC #### [facility] [address] [place], [place] [id number] Matias Evelyn Neutrophils/100 WBC (Bld) 64.7 % Normal 43.0-75.0 [facility] Comment on above: Performed By: #### C BC #### [facility] [address] [place], [place] [id number] Matiaswali Rodasen Platelet mean volume (Bld) [Entitic vol] 10.4 fL Normal 9.5-13.5 [facility] Comment on above: Performed By: #### C BC #### [facility] [address] [place], [place] [id number] Matias Evelyn PLT 243 103/ul Normal 150-450 [facility] Comment on above: Performed By: #### C BC #### [facility] [address] [place], [place] [phone] Matias Evelyn RBC 5.65 106/ul Normal 4.70-6.10 [facility] Comment on above: Performed By: #### C BC #### [facility] [address] [place] [address] Matias Rivas WBC 8.7 103/ul Normal 4.0-11.0 [facility] Comment on above: Performed By: #### C BC #### [facility] [address] [address] Matias Rivas FREE THYROXINE INDEX T7on FTI 2.11 Normal [facility] Comment on above: Performed By: #### U TARIK, CMP, T7, PSASC, TSH, LIPID #### [facility] [address] [place] [address] Matias Rivas T3U 34.0 % Normal 23.5-40.5 [facility] Comment on above: Performed By: #### U TARIK, CMP, T7, PSASC, TSH, LIPID #### [facility] [address] [place] [address] Matias Rivas T4 [Mass/Vol] 6.20 ug/dL Normal 5.53-11.00 [facility] Comment on above: Performed By: #### U TARIK, CMP, T7, PSASC, TSH, LIPID #### [facility] [address] [place] [address] Matias Rivas GLYCOHEMOGLOBIN A1Con 2020 ADA RECOMMENDATION ADA THERAPEUTIC TARGET 6.0 - 7.0 ACTION SUGGESTED > 7.0 Normal [facility] Comment on above: Performed By: #### A 1C #### [facility] [address] [place] [address] Matias Rivas Glucose [Mass/Vol] 266 mg/dL Normal [facility] Comment on above: Performed By: #### A 1C #### [facility] [address] [place] [address] Matias Rivas HbA1c (Bld) [Mass fraction] 10.9 % Critically high <=6.0 [facility] Comment on above: Performed By: #### A 1C #### [facility] [address] [place] [address] Matias Rivas LIPID PROFILEon 10-01-2020 CHOL-HDL RATIO NORM SEE BELOW Normal [facility] Comment on above: Result Comment: 3.3 - 4.4 LOW RISK 4.4 - 7.1 AVERAGE RISK 7.1 - 11.0 MODERATE RISK >11.0 HIGH RISK Performed By: #### P SASC #### [facility] [address] [address] [address] Forrest Lauren Cholesterol [Mass/Vol] 110 mg/dL Normal <=200 [facility] Comment on above: Performed By: #### P SASC #### [facility] [address] [address] [address] Forrest Lauren Cholesterol in HDL [Mass/Vol] 36 mg/dL Normal [facility] Comment on above: Performed By: #### P SASC #### [facility] [address] [place] [address] Dr. Forrest Lauren Cholesterol in LDL [Mass/Vol] 36.2 mg/dL Normal [facility] Comment on above: Performed By: #### P SASC #### [facility] [address] [address] [address] Forrest Lauren Cholesterol.total /Cholesterol in HDL [Mass ratio] 3.1 {ratio} Normal [facility] Comment on above: Performed By: #### P SASC #### [facility] [address] [place] [address] Dr. Forrest Lauren HDL NORMAL > or = 60 mg/dl - LO W CARDIOVASCULAR RISK <40 mg/dl - HIGH CARDIOVASCULAR RISK Normal [facility] Comment on above: Performed By: #### P SASC #### [facility] [address] [address] [address] Forrest Lauren LDL CALC NORMAL SEE BELOW Normal [facility] Comment on above: Result Comment: <100 mg/dl OPTIMAL 100 - 129 mg/dl NEAR OR ABOVE OPTIMAL 130 - 159 mg/dl BORDERLINE HIGH 160 - 189 mg/dl HIGH >190 mg/dl VERY HIGH Performed By: #### P SASC #### [facility] [address] [place] [address] Dr. Forrest Lauren Triglyceride [Mass/Vol] 189 mg/dL Critically high <=150 [facility] Comment on above: Performed By: #### P SASC #### [facility] [address] [address] [address] Forrest Lauren VLDL CALC 37.8 mg/dL Normal [facility] Comment on above: Performed By: #### P SASC #### [facility] [address] [address] [address] Forrest Lauren PROF 14(COMP METB)on 021 Albumin [Mass/Vol] 4.1 g/dL Normal 3.5-5.0 [facility] Comment on above: Performed By: #### U TARIK, CMP, T7, PSASC, TSH, LIPID #### [facility] [address] [place] [address] Matias Evelyn Albumin/Globulin [Mass ratio] 1.2 {ratio} Normal [facility] Comment on above: Performed By: #### U TARIK, CMP, T7, PSASC, TSH, LIPID #### [facility] [address] [place] [address] Matias Evelyn ALP [Catalytic activity/Vol] 80 U/L Normal 38-126 [facility] Comment on above: Performed By: #### U TARIK, CMP, T7, PSASC, TSH, LIPID #### [facility] [address] [place] [address] Matias Evelyn ALT [Catalytic activity/Vol] 42 U/L Normal 21-72 [facility] Comment on above: Performed By: #### U TARIK, CMP, T7, PSASC, TSH, LIPID #### [facility] [address] [place] [address] Matias Evelyn Anion gap [Moles/Vol] 12.3 mmol/L Normal [facility] Comment on above: Performed By: #### U TARIK, CMP, T7, PSASC, TSH, LIPID #### [facility] [address] [address] Matias Evelyn AST [Catalytic activity/Vol] 24 U/L Normal 17-59 [facility] Comment on above: Performed By: #### U TARIK, CMP, T7, PSASC, TSH, LIPID #### [facility] [address] [address] Matias Evelyn Bilirubin [Mass/Vol] 1.3 mg/dL Normal 0.2-1.3 [facility] Comment on above: Performed By: #### U TARIK, CMP, T7, PSASC, TSH, LIPID #### [facility] [address] [address] Matias Evelyn Calcium [Mass/Vol] 9.3 mg/dL Normal 8.4-10.2 [facility] Comment on above: Performed By: #### U TARIK, CMP, T7, PSASC, TSH, LIPID #### [facility] [address] [place] [address] Matias Evelyn Chloride [Moles/Vol] 103 mmol/L Normal 98-107 [facility] Comment on above: Performed By: #### U TARIK, CMP, T7, PSASC, TSH, LIPID #### [facility] [address] [address] Matias Evelyn CO2 [Moles/Vol] 30.0 mmol/L Normal 22.0-30.0 [facility] Comment on above: Performed By: #### U TARIK, CMP, T7, PSASC, TSH, LIPID #### [facility] [address] [place] [address] Matias Evelyn Creatinine [Mass/Vol] 1.20 mg/dL Normal 0.66-1.25 [facility] Comment on above: Performed By: #### U TARIK, CMP, T7, PSASC, TSH, LIPID #### [facility] [address] [place] [address] Matias Evelyn EGFR-AF SWISS >60 Normal >=60 [facility] Comment on above: Performed By: #### U TARIK, CMP, T7, PSASC, TSH, LIPID #### [facility] [address] [place] [address] Matias Evelyn EGFR-NON AF SWISS >60 Normal >=60 [facility] Comment on above: Performed By: #### U TARIK, CMP, T7, PSASC, TSH, LIPID #### [facility] [address] [id number] Matias Evelyn Globulin (S) [Mass/Vol] 3.5 g/dL Normal [facility] Comment on above: Performed By: #### U TARIK, CMP, T7, PSASC, TSH, LIPID #### [facility] [address] [address] Matias Evelyn Glucose [Mass/Vol] 269 mg/dL Critically high 74-106 [facility] Comment on above: Performed By: #### U TARIK, CMP, T7, PSASC, TSH, LIPID #### [facility] [address] [address] Matias Evelyn Potassium [Moles/Vol] 4.3 mmol/L Normal 3.4-5.0 [facility] Comment on above: Performed By: #### U TARIK, CMP, T7, PSASC, TSH, LIPID #### [facility] [address] [address] Matias Evelyn Protein [Mass/Vol] 7.6 g/dL Normal 6.1-8.2 [facility] Comment on above: Performed By: #### U TARIK, CMP, T7, PSASC, TSH, LIPID #### [facility] [address] [address] Matias Evelyn Sodium [Moles/Vol] 141 mmol/L Normal 137-145 [facility] Comment on above: Performed By: #### U TARIK, CMP, T7, PSASC, TSH, LIPID #### [facility] [address] [address] Matias Evelyn Urea nitrogen [Mass/Vol] 17.0 mg/dL Normal 9.0-20.0 [facility] Comment on above: Performed By: #### U TARIK, CMP, T7, PSASC, TSH, LIPID #### [facility] [address] [address] Matias Evelyn Urea nitrogen/Creatini ne [Mass ratio] 14.2 mg/mg Normal [facility] Comment on above: Performed By: #### U TARIK, CMP, T7, PSASC, TSH, LIPID #### [facility] [address] [place], [place] [address] Matias Rivas TSHon 10-01-2020 TSH 1.574 uIU/mL Normal 0.470-4.68 0 [facility] Comment on above: Performed By: #### P SASC #### [facility] [address] [address] [address] Forrest Lauren TSH RANGE SEE BELOW Normal [facility] Comment on above: Result Comment: <0.3 4 UIU/ml HYPERTHYROID 0.34-5.60 UIU/ml EUTHYROID >5.60 UIU/ml HYPOTHYROID Performed By: #### P SASC #### [facility] [address] [address] [address] Forrest Lauren URIC ACID SERUMon 10-01-2020 Urate [Mass/Vol] 4.8 mg/dL Normal 3.5-8.5 [facility] Comment on above: Performed By: #### P SASC #### [facility] [address] [address] [address] Forrest Lauren Cardiovascular Lab Reporton 08-03-2017 Cardiovascular Lab Report [id number] Physician: Renato Miller M.D.Medicine Service Date: 2017Division of Birthdate: 6Cardiology Room #: CCAdult CardiovascularSer[address] [address]Lj[address] Fax Cardiovascular Laboratory ReportINDICATION: Hoang Tran is a 62-year-old man known to have [...] the right internal jugular vein and a 6-Ukrainian x 11cm sheath was placed. A 6-Ukrainian Griffith catheter was used for right heartcatheterization with measurement of pressures and calculation of cardiacoutput using the estimated Luke method. Griffith catheter was removed.Using ultrasound guidance and micropuncture technique, access was obtainedin the left radial artery and a 6-Ukrainian x 11 cm Hydrophilic sheath wasadvanced. Verapamil [...] 08/02/2017/02:42 P/Renato Staton M.D.Date Trans: 08/03/2017 11:29 [id number]: Yfn Mata D.O. [address] [place] [id number] [facility] Vital Signs Date Time Vital Sign Value Performing Clinician Jose fairchild 01-21-2024 11:44-0400 Blood Pressure Location [facility] 01-21-2024 11:44-0400 Diastolic blood pressure 72 mm[Hg] [facility] 01-21-2024 11:44-0400 Heart rate 70 /min [facility] 01-21-2024 11:44-0400 Respiratory rate 16 /min [facility] 01-21-2024 11:44-0400 Systolic blood pressure 108 mm[Hg] [facility] Encounters Encounter Date Encounter Type Care Provider Facility Start: 02-11-2024 ambulatory Moody Neffi ty:[id number] Start: 01-21-2024 End: 01-21-2024 ambulatory AILIN GREEN Facility:[facility] Start: 01-21-2024 End: 01-21-2024 Patient encounter procedure [facility] Start: 09-12-2023 ambulatory AILIN HERNANDEZMER Facility: [facility] Start: 08-26-2021 End: 08-26-2021 ambulatory AILINKAYLEE BAKER Facility:[facility] Start: 02-23-2021 ambulatory AILINKAYLEE BAKER Facility:[facility] Start: 12-06-2020 End: 12-07-2020 ambulatory ILAN TODD Facility:[facility] Start: 10-07-2020 Encounter for genera l adult medical examination without abnormal findings AILIN RAY [facility] Start: 10-01-2020 End: 10-02-2020 ambulatory AILINKAYLEE BAKER Facility:[facility] Start: 10-01-2020 End: 10-02-2020 Encounter for general adult medical examination without abnormal findings AILINKAYLEE BAKER Facility: Start: 2017 End: 08-03-2017 Ambulatory PROVIDER UNKNOWN Facility:[facility] Start: 07-24-2017 End: 07-25-2017 Ambulatory DEFAULT PHYSICIAN Facility:[facility] Start: 07-19-2017 End: 07-20-2017 Ambulatory DEFAULT PHYSICIAN Facility:[facility] Start: 06-18-2017 End: 06-19-2017 Ambulatory DEFAULT PHYSICIAN Facility:[facility] Procedures Date Procedure Procedure Detail Performing Clinician Start: 08-26-2021 PSA screening AILIN KHAN Comment on above: Performed By: #### P SASC #### [facility] [address] [address] [address] Forrest Lauren Start: 10-01-2020 PSA screening AILIN KHAN Comment on above: Performed By: #### U TARIK, CMP, T7, PSASC, TSH, LIPID #### [facility] [address] [address] Matias Rivas Start: 08-06-2013 Colonoscopy Moody ASHER Start: 08-06-2004 Neoplasm of brain (disorder) [facility] Back structure, excl uding neck (body structure) [facility] Tonsillectomy [facility] Payers Date Payer Category Payer Private Health Insurance [id number] 1958 [facility] [id number] 1958 Medicare [id number] 1958 Self-pay 1955 Unknown [id number] 1955 Unknown [id number] 2.16.84 [id number] 1955 Unknown [id number] 2.16.84 [id number] 1955 Unknown [id number] 2.16.84 [id number] 1955 Unknown [id number] [id number] Unknown Social History Date Type Detail Facility Start: 01-21-2024 Tobacco smoking status Never s moked tobacco (finding) [facility] Tobacco smoking status Never [facility] Sex Assigned At Male [facility] Functional Status Date Assessment Result Facility 01-21-2024 Functional Status N/A [facility] Clinical Note 01-21-2024 Note Date & Type Note Facility 01-21-2024 Note Chief Complaint Referral *LUTs HPI Staff Evaluation requested by Ailin Green CNP due to LUTs. Pt is a new pt. Never before seen in our office. (Verified on DA) UA 09/03/23 >1000 Glucose. NEG blood, nitrate & leuks (Pt is diabetic) Last A1C08/30/23 8.4 VAHE 08/31/23 *BL Renal Cortical Cysts. Minimal urinary bladder wall thickening. PVR 6ml. PSA: 08/25/22 1.55 08/30/23 2.12 Frequency. q1hr or less. For the past yr. Believes it started when he started Jardiance therapy. (Did recently increase dose, and now feels like urinary sx are worsening) q1hr through the night as well. Denies straining. Weak stream. Occasional double voids. Occasional post void dribbling. Daily loss of bladder control. Does not wear protection. Strong urgency. Denies Hx of bladder/prostate medications. c/o lack of energy. Occasional dizzy spells in the early afternoon. History of Present Illness Tests reviewed: reviewed UA, referral records I have reviewed the previous health record information and history for this patient from _. I have reviewed and verified the staff HPI to be accurate for this encounter. There have been no associated fever, chills, flank pain, or blood in the urine. Denies any urinary infections since last encounter. Review of Systems PHQ Score Initial Depression Screen Score: 0 SCORE ROS - Provider Constitutional: denies weight loss, denies hot flashes. Eyes: denies eye problems. Gastrointestinal: denies nausea, denies vomiting. Cardiovascular: denies chest pain or angina. Integumentary: no dryness Musculoskeletal: denies musculoskeletal symptoms. ENMT: denies otolaryngeal symptoms. Respiratory: no shortness of breath. Heme/Lymph: denies easy bleeding tendency, denies easy bruising tendency. Psychiatric: no confusion, no anxiety. Genitourinary: See HPI. Physical Exam Vitals & Measurements HR: 70(Peripheral) RR: 16 BP: 108/72 HT: 74 in HT: 187 cm WT: 118 kg WT: 259.6 lb BMI: 33.74 General Appearance: alert, no distress, well nourished, well developed male. Head: normocephalic . Eyes: normal orbit and globe. ENMT: normal examination of external ears. Chest: Lungs CTA, respirations non labored. Cardiovascular: regular rate and rhythm. Abdomen: soft, non distended, no tenderness, no mass or organomegaly, no hernia. Genitourinary: normal scrotum, normal testes, normal urethra, normal epididymis, normal vas deferens/spermatic cord. Flank Pain: none. Bladder: nonpalpable. Penis: normal shaft, normal glans. Lymph Nodes: unremarkable palpation of the cervical area. Skin: warm, dry, no bruising. Psychiatric: cooperative, affect appropriate for age, normal judgement, euthymic mood. Assessment/Plan Hoang is a 68 yo male new pt referred by Ailin Green [facility] due to LUTS. 1. BPH with obstruction/lower urinary tract symptoms (N40.1: Benign prostatic hyperplasia with lower urinary tract symptoms) UA today negative for blood and infection. IPSS 27. Waits over toilet after voiding, he is able to get a little more out, has some dribbling after. Discussed starting prostate med to help with weak stream and dribbling. Onset of intermittent dizziness 2 mos ago. Accompanied by loss of energy in the evening around 3-4 pm. Likely attributed to DM. Will prescribe Flomax only qd instead of bid due to this. -Start Flomax 0.4 mg qPM. SEs discussed. Rx sent to [facility]. -Will schedule cysto. The risks and benefits for cystoscopy have been discussed. The risks include bleeding, infection, and irritation of the bladder and urinary channel, among others. The patient, after being informed of procedural details and after questions have been answered, wishes to proceed. Full informed consent has been obtained. Will order Local anesthesia. Prophylactic abx sent to [facility]. 2. OAB (overactive bladder) (N32.81: Overactive bladder) VAHE 08/31/23 - BL Renal Cortical Cysts. Minimal urinary bladder wall thickening. PVR 6 ml. Severe frequency and urgency. q1hr. Occasional UUI episodes. Does not wear protection. Did not have UUI episodes/frequency/urgency prior to starting Jardiance. Nocturia every hour, severe urgency. Feels he empties completely. Started Jardiance 10 mg 08/2022, no voiding issues prior to this. When increased to 25 mg, urinary sx worsened. Educated pt that meds like Jardiance can cause frequent urination by spilling sugar into urine. However, this does not cause weak stream, the BPH does. Discussed that there are bladder meds that can help however, Jardiance seems to be the cause and adding a med would just be fighting the Jardiance. Will try to have PCP adjust DM meds prior to starting bladder med to see if sx improve off jardiance. Reviewed VAHE with pt. 3. Glucosuria (R81: Glycosuria) UA shows >=1000 mg/dl glucose. Last A1C 08/30/23 - 8.4. Pt is diabetic. -F/u with PCP to see if Jardiance can be switched. 4. Screening PSA (prostate specific antigen) (Z12.5: Encounter for screening for malignant neoplasm of prostat (more content not included)... [facility] Comment on above: Result Comment: Elec tronically Signed By: DONN ELLIS, Moody R\.br\Date and Time Signed: 01/21/24 12:46 EDT\.br\Electronically Co-Signed By: Sowmya Flowers\.br\Date and Time Co-Signed: 01/21/24 12:42 EDT Hospital Discharge instructions 01-21-2024 Note Date & Type Note Facility 01-21-2024 Hospital Discharge instructions Patient Education 01/21/2024 08:23:24 Benign Prostatic Hyperplasia Benign Prostatic Hyperplasia Benign prostatic hyperplasia (BPH) is an enlarged prostate gland that is caused by the normal aging process. The prostate may get bigger as a man gets older. The condition is not caused by cancer. The prostate is a walnut-sized gland that is involved in the production of semen. It is located in front of the rectum and below the bladder. The bladder stores urine. The urethra carries stored urine out of the body. An enlarged prostate can press on the urethra. This can make it harder to pass urine. The buildup of urine in the bladder can cause infection. Back pressure and infection may progress to bladder damage and kidney (renal) failure. What are the causes? This condition is part of the normal aging process. However, not all men develop problems from this condition. If the prostate enlarges away from the urethra, urine flow will not be blocked. If it enlarges toward the urethra and compresses it, there will be problems passing urine. What increases the risk? This condition is more likely to develop in men older than 50 years. What are the signs or symptoms? Symptoms of this condition include: Getting up often during the night to urinate. Needing to urinate frequently during the day. Difficulty starting urine flow. Decrease in size and strength of your urine stream. Leaking (dribbling) after urinating. Inability to pass urine. This needs immediate treatment. Inability to completely empty your bladder. Pain when you pass urine. This is more common if there is also an infection. Urinary tract infection (UTI). How is this diagnosed? This condition is diagnosed based on your medical history, a physical exam, and your symptoms. Tests will also be done, such as: A post-void bladder scan. This measures any amount of urine that may remain in your bladder after you finish urinating. A digital rectal exam. In a rectal exam, your health care provider checks your prostate by putting a lubricated, gloved finger into your rectum to feel the back of your prostate gland. This exam detects the size of your gland and any abnormal lumps or growths. An exam of your urine (urinalysis). A prostate specific antigen (PSA) screening. This is a blood test used to screen for prostate cancer. An ultrasound. This test uses sound waves to electronically produce a picture of your prostate gland. Your health care provider may refer you to a specialist in kidney and prostate diseases (urologist). How is this treated? Once symptoms begin, your health care provider will monitor your condition (active surveillance or watchful waiting). Treatment for this condition will depend on the severity of your condition. Treatment may include: Observation and yearly exams. This may be the only treatment needed if your condition and symptoms are mild. Medicines to relieve your symptoms, including: ?Medicines to shrink the prostate. ?Medicines to relax the muscle of the prostate. Surgery in severe cases. Surgery may include: ?Prostatectomy. In this procedure, the prostate tissue is removed completely through an open incision or with a laparoscope or robotics. ?Transurethral resection of the prostate (TURP). In this procedure, a tool is inserted through the opening at the tip of the penis (urethra). It is used to cut away tissue of the inner core of the prostate. The pieces are removed through the same opening of the penis. This removes the blockage. ?Transurethral incision (TUIP). In this procedure, small cuts are made in the prostate. This lessens the prostate's pressure on the urethra. ?Transurethral microwave thermotherapy (TUMT). This procedure uses microwaves to create heat. The heat destroys and removes a small amount of prostate tissue. ?Transurethral needle ablation (TUNA). This procedure uses radio frequencies to destroy and remove a small amount of prostate tissue. ?Interstitial laser coagulation (ILC). This procedure uses a laser to destroy and remove a small amount of prostate tissue. ?Transurethral electrovaporization (TUVP). This procedure uses electrodes to destroy and remove a small amount of prostate tissue. ?Prostatic urethral lift. This procedure inserts an implant to push the lobes of the prostate away from the urethra. Follow these instructions at home: Take [id number] and prescription medicines only as told by your health care provider. Monitor your symptoms for any changes. Contact your health care provider with any changes. Avoid drinking large amounts of liquid before going to bed or out in public. Avoid or reduce how much caffeine or alcohol you drink. Give yourself time when you urinate. Keep all follow-up visits. This is important. Contact a health care provider if: You have unexplained back pain. Your symptoms do not get better with treatment. You develop side effects from the medicine you are taking. Your urine becomes very dark or has a bad smell. Your lower abdomen becomes distended and you have trouble passing urine. Get help right away if: You have a fever or chills. You suddenly cannot urinate. You feel light-headed or very dizzy, or you faint. There are large amounts of blood or clots in your urine. Your urinary problems become hard to manage. You develop moderate to severe low back or flank pain. The flank is the side of your body between the ribs and the hip. These symptoms may be an emergency. Get help right away. Call 911. Do not wait to see if the symptoms will go away. Do not drive yourself to the hospital. Summary Benign prostatic hyperplasia (BPH) is an enlarged prostate that is caused by the normal aging process. It is not caused by cancer. An enlarged prostate can press on the urethra. This can make it hard to pass urine. This condition is more likely to develop in men older than 50 years. Get help right away if you suddenly cannot urinate. This information is not intended to replace advice given to you by your health care provider. Make sure you discuss any questions you have with your health care provider. Document Revised: 02/08/2022 Document Reviewed: 02/08/2022 [employer] Patient Education 2022 [employer]. Follow Up Care 09/13/2023 09:26:56 With:DONN ELLIS, Moody Aranda, URL Address: [facility] [address], [place] [address]- When: Unknown [facility] Evaluation + Plan note Note Date & Type Note Facility Evaluation + Plan note No data available for this section [facility] Progress note Note Date & Type Note Facility Progress note No data available for this section [facility] Summary Purpose Family History No Family History Records FoundNo Family History Records Found No data available for this section No Family History Records Found Advance Directives No Advanced Directives Records FoundNo Advanced Directives Records FoundNo Advanced Directives Records Found Additional Source Comments (unrecognized sect ion and content) No Status Records FoundNo Status Records FoundNo Status Records Found INFORMATION SOURCE (unrecogn ized section and content) DATE CREATED AUTHOR 01/29/2018 [facility] DATE CREATED AUTHOR AUTHOR'S ORGANIZ ATION 09/01/2021 [facility] DATE CREATED AUTHOR AUTHOR'S ORGANIZ ATION 02/01/2024 [facility] Patient Care team informatio n (unrecognized section and content) Personnel Name: AILIN GREEN CNP Address: Address: [facility], [address] FOR RECORDS PERTAINING TO PATIENTS WHO ARE [...] BE BASED ON THE PRIMARY CLINICAL RECORDS. [facility]. provides no warranty or guarantee of the accuracy or completeness of information in this document.
[2024-02-11] MEDS: LIDOCAINE 2% JELLY 10 ML UR (08:11)
[2024-02-11 08:12] VITALS: BP 145/73; PULSE 94; O2SAT 95
[2024-02-11 08:17] VITALS: BP 152/72; PULSE 98; O2SAT 95
--- NOTE | 2024-02-11 08:28 | P.URON_ITS ---
Urology Surgery Operative Note Operative Note Procedure Date: 02/11/24 Time Out Performed: yes Pre-op Diagnosis: BPH with LUTS Post-op Diagnosis: same as pre-op Procedures performed: 1. Cystoscopy. Anesthesia: local Primary Surgeon: Moody Hdz Complications: None Estimated blood loss (mL): 0 Findings: 1. By lobar obstruction of the prostate. 2. High-grade bladder damage with thick trabeculation. Specimens: None Drains: None Indications for Procedures: This gentleman has rather severe bladder outlet obstructive symptoms with an IPSS score of 28. He already had dizziness prior to seeing me in the office. I did start him on Flomax once a day. He still has dizziness and it is not any worse. He has had a substantial improvement in his voiding parameters with the daily Flomax. He now presents for cystoscopy. He has signed an informed consent. Detailed description of Procedure: Patient was kept on the rbellevue bed and brought into the endoscopy suite. He was in the supine position. Timeout was done by all parties in the room. We all agreed upon the patient's identification and the planned procedures for this patient. Genitalia were sterilely prepped and draped in the usual fashion. 2% Xylocaine jelly was passed per urethra. I started by passing a flexible cystoscope per urethra and into the bladder. The anterior urethra was normal. The prostatic urethra showed by lobar obstruction of the prostate. The left lobe crossed the midline and coapted with the right. There was minimal median lobe involvement. Careful panendoscopy in the bladder revealed high-grade trabeculation. There was no evidence of any bladder tumors or mucosal lesions. No stones were noted. The scope was then removed. The plan is that we will continue his daily Flomax. Follow-up will be in 3 months for reevaluation.
== END 2024-02-11 08:30 | disposition home or self-care (01) ==
PROVIDERS: PCP Nurse Practitioner Family; Visit Provider Urology
PROC: (CPT 52000; principal; 2024-02-11 08:00)
DX: N40.1 Benign prostatic hyperplasia with lower urinary tract symptoms (principal); N32.89 Other specified disorders of bladder; R42 Dizziness and giddiness; R39.15 Urgency of urination; N32.81 Overactive bladder; R81 Glycosuria
CPT/HCPCS: 52000

== ENCOUNTER 2024-03-06 07:55 | Outpatient (OUT) | payer MEDICARE, SELFPAY ==
--- NOTE | 2024-03-06 08:00 | CA_ITS ---
Patient Name: NABEEL TRAN MR#: [id number] : 1955 Exam Date: 03/06/2024 Ordering Doctor: DR JEROD MANUEL M.D. ECHOCARDIOGRAM REPORT PROCEDURE: CA ECHO DOPPLER COMPLETE INDICATIONS: Aortic regurgitation, Mitral regurgitation, dyspnea, hypertension, diabetes COMPARISON: None. DESCRIPTION: COMPLETE ECHOCARDIOGRAM Real-time transthoracic echocardiography with 2D, M-mode, spectral and color flow Doppler performed. QUALITY: Technical quality was good. LEFT VENTRICLE: Normal chamber size. Mild concentric left ventricular hypertrophy. LV EF: Global left ventricular systolic function is hyperdynamic; visually estimated ejection fraction is 65 to 70%. No obvious wall motion abnormalities. DIASTOLIC: Normal diastolic function. ATRIAL SEPTUM: Inadequately seen. LEFT ATRIUM: Moderate dilatation. RIGHT ATRIUM: Mild dilatation. RIGHT VENTRICLE: Normal chamber size. Normal right ventricular systolic function. TRICUSPID VALVE: Normal mobility and thickness. Mild regurgitation. No evidence of pulmonary hypertension. RVSP 34 mmHg MITRAL VALVE: Normal mobility and thickness. No evidence of mitral valve stenosis. There is no mitral annular calcification. Mild mitral regurgitation. AORTIC VALVE: Normal trileaflet appearance. Mildly calcified aortic valve. Doppler velocity suggests mild aortic valve stenosis. DVI 0.5, REBEKAH 1.9 cm2. Trivial aortic regurgitation. AORTIC ROOT: Normal diameter and appearance. PULMONIC VALVE: Normal thickness and mobility. No stenosis. No regurgitation. PERICARDIUM: No evidence of pericardial effusion. IVC: Not well visualized. CONCLUSION: 1. Global left ventricular systolic function is hyperdynamic; visually estimated ejection fraction 65 to 70% 2. Normal right ventricular size and systolic function 3. Mild left ventricular hypertrophy 4. Biatrial enlargement 5. Normal diastolic function 6. Mild mitral regurgitation 7. Mild tricuspid regurgitation 8. Mild aortic valve stenosis Adult Echocardiography Procedure Report Left Ventricle LVEDD (3.7 - 5.6 cm): 4.71 cm LVESD (2.2 - 4.0 cm): 2.73 cm LVIVS thickness (0.6 - 1.2 cm): 1.14 cm LVPW thickness (0.5 - 1.0 cm): 1.20 cm e': 0.12 m/s E - e': 7.63 LVOT Max Gradient: 8.76 mm[Hg], 4.03 mm[Hg] LVOT Area (cm2): 1.24 m/s Peak Velocity (LVOT): 1.48 m/s, 1.00 m/s Mean Velocity (LVOT): 0.66 m/s LVOT Diameter 2.18 cm Left Atrium LA Volume Index (2D A2C): 46.26 ml/m2 Left Atrium Systolic Dimension: 3.29 cm Mitral Valve MV E to A Ratio: 1.25, 1.10 Mitral Valve A-Wave Peak Velocity: 0.79 m/s Mitral Valve E-Wave Peak Velocity: 0.93 m/s Right Ventricle Aorta AO Root Diam: 3.83 cm Ascending Ao Diam: 2.86 cm Aortic Valve AoV Area (Peak Walt): 1.85 cm2, 2.04 cm2, 1.64 cm2 AoV Area (VTI): 1.90 cm2, 2.21 cm2, 1.60 cm2 Peak Velocity(Antegrade Flow): 2.72 m/s, 2.29 m/s Peak Gradient(Antegrade Flow): 29.53 mm[Hg], 21.04 mm[Hg] Mean Velocity(Antegrade Flow): 1.70 m/s, 1.71 m/s Mean Gradient(Antegrade Flow): 13.30 mm[Hg], 12.86 mm[Hg] Velocity Time Integral: 43.59 cm, 44.47 cm Tricuspid Valve Peak Velocity (Regurgitant Flow): 2.55 m/s, 2.37 m/s, 2.41 m/s, 2.35 m/s, 2.57 m/s, 2.77 m/s, 2.69 m/s Pulmonic Valve Peak Velocity: 0.99 m/s Peak Gradient: 4.86 mm[Hg], 3.68 mm[Hg], 3.84 mm[Hg], 3.51 mm[Hg] Right Atrium Right Atrium Systolic Pressure: 59.78 ml, 59.78 ml Dictated by: Deena Tilley M.D. on 03/07/2024 at 09:16 Approved by: Deena Tilley M.D. on 03/07/2024 at 09:27
--- OUTSIDE RECORDS SUMMARY | 2024-03-06 08:01 | XMS_ITS | CCD ---
Author Organization [facility] CliniSyct Care Team Providers Care Document Control Associate Name Role Phone PHYSICIAN, DEFAULT Unavailable Unavailable PHYSICIAN, DEFAULT Unavailable Unavailable PHYSICIAN, DEFAULT Unavailable Unavailable PHYSICIAN, DEFAULT Unavailable Unavailable PHYSICIAN, DEFAULT Unavailable Unavailable PHYSICIAN, DEFAULT Unavailable Unavailable UNKNOWN, PROVIDER Unavailable Unavailable UNKNOWN, PROVIDER Unavailable Unavailable YFN MATA Unavailable Unavailable ESPERANZA, YFN Unavailable Unavailable AILIN BAKER Admitting Unavailable AILIN BAKER Attending Unavailable RAY, AILIN Primary Care Unavailable RAY, AILIN Admitting Unavailable AILIN BAKER Attending Unavailable AILIN BAKER Consulting Unavailable AILIN BAKER Primary Care Unavailable AILIN BAKER Attending Unavailable YFN MATA Primary Care Unavailable AILIN BAKER Consulting Unavailable AILIN BAKRE Admitting Unavailable ILAN TODD Attending Unavailable ILAN TODD Consulting Unavailable ILAN TODD Admitting Unavailable AILIN BAKER Primary Care Unavailable AMARIS WALKER Consulting Unavailable AILIN GREEN Primary Care Physician Moody POP Attending Unavailable Moody POP Attending Unavailable AILIN GREEN Referring Unavailable Moody POP Attending Unavailable JEROD MANUEL Attending Unavailable Allergies Allergy Classification Reported Allergen(s) Allergy Type Date of Onset Reaction(s) Facility (2 sources) No Known Allergies; 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: [No Known Allergies] Propensity to adverse reactions (disorder) 7 [facility] Repository (1 source) No Known Medication Allergies; 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: [No Known Medication Allergies] Propensity to adverse reactions (disorder) [facility] Repository (1 source) empagliflozin; 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: [EMPAGLIFLOZIN] Drug Allergy 4 [facility] Repository Medications Current Medications Medication Drug Class(es) [...] completed, # 2 tab(s), Refills(s) 0, Pharmacy: [id number], 187, cm, 01/21/24 11:48:00 EDT, Height/Length Dosing, 118, kg, 01/21/24 11:48:00 EDT, Weight Dosing Start Date: 01/21/24 Status: Ordered Problems Active Problems Problem Classification Problem Date Documented Date Episodic/Chronic Cardiac dysrhythmias (2 sources) Atrial premature depolarization; 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: [Atrial premature depolarization] Onset: 02-25-2024 Chronic Complications of surgical procedures or medical care (2 sources) Hypotension due to drugs; 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: [Hypotension due to drugs] Onset: 02-25-2024 Episodic Diabetes mellitus without complication (2 sources) Type 2 diabetes mellitus without complications; 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: [Diabetes mellitus] Onset: 2017 01-21-2024 Chronic Diabetes mellitus without complication (6 sources) Other abnormal glucose; 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: [Glycosuria] Onset: 08-26-2021 Episodic Disorders of lipid metabolism (2 sources) Hyperlipidemia, unspecified; 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: [Hyperlipidemia] Onset: 08-31-2021 01-21-2024 Chronic Essential hypertension (5 sources) Essential (primary) hypertension; 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: [Hypertensive disorder] Onset: 06-20-2017 01-21-2024 Chronic Heart valve disorders (5 sources) Nonrheumatic mitral (valve) insufficiency; 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: [Nonrheumatic aortic (valve) insufficiency] Onset: 2017 Chronic Hyperplasia of prostate (2 sources) Benign prostatic hypertrophy with outflow obstruction; 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: [Benign prostatic hyperplasia with lower urinary tract symptoms] Onset: 01-21-2024 Chronic Other diseases of bladder and urethra (1 source) Detrusor overactivity; 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: [Overactive bladder] Onset: 01-21-2024 Chronic Other diseases of bladder and urethra (1 source) Overactive bladder 01-21-2024 Chronic Other lower respiratory disease (3 sources) Shortness of breath; 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: [SHORTNESS OF BREATH] Onset: 2017 Episodic Other nervous system disorders (1 source) H/O: brain disorder 01-21-2024 Episodic Residual codes; unclassified (1 source) Sleep apnea 01-21-2024 Chronic Respiratory failure; insufficiency; arrest (1 source) Dependence on supplemental oxygen; 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: [DEPENDENCE ON SUPPLEMENTAL OXYGEN] Onset: 2017 Chronic Unclassified (3 sources) Obstructive sleep apnea (adult) (pediatric); 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: [OBSTRUCTIVE SLEEP APNEA (ADULT) (PEDIATRIC)] Onset: 2017 Chronic Unclassified (7 sources) Abnormal result of other cardiovascular function study; 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: [Encounter for screening for malignant neoplasm of prostate] Onset: 2017 Episodic Unclassified (2 sources) Unknown / UNK(Unknown) Onset: 2017 Unclassified (1 source) 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; 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: [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 DRUGS] Onset: 2017 Unclassified (1 source) Patient encounter status 01-21-2024 Viral infection (1 source) COVID-19; 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: [COVID-19] Onset: 12-08-2020 Past or Other Problems Problem Classification Problem Date Documented Da te Episodic/Chronic Other aftercare (1 source) 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; 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: [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) USE OF ASPIRIN] Onset: 2017 Episodic Other lower respiratory disease (3 sources) Cough; 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: [COUGH] Onset: 12-06-2020 Episodic Results Test Name Value Interpretation Reference Range Facility Office Visiton 02-25-2024 Follow-up visit [id number] Allen Tran 1955 M Date Provider Department Center 02/25/2024 JEROD BANKS Family History Problem Relation Age of Onset Coronary artery disease Mother Family Status - Relation Status Age at Mother Level of Service:7[address] [place] OFFICE/OUTPATIENT NEW MODERATE MDM 45 MINUTES Normal [facility] Insurance Correspondenceon 0 01-30-2024 Insurance Correspondence [id number]#1.00TIFF [facility] Consent for Procedure/Surger yon 01-22-2024 Consent for Procedure/Surgery [id number]#1.00TIFF [facility] Physician Referralon 024 Physician Referral [id number]#1.00TIFF [facility] Screenson 01-22-2024 Screens [id number]#1.00TIFF [facility] Ambulatory Visit Summaryon 0 01-21-2024 Ambulatory Visit [...] When: Where: [facility] [address], [place] [address]- Medications What When Instructions Unchanged amlodipine (amLODIPine [...] urine (ur (more content not included)... Normal [facility] Patient Educationon 01-21-20 Patient Education Urology Benign Prostatic Hyperplasia Benign [...] Follow these instructions at home: ? Take [id number]-[id number] and prescription medicines only as told by [...] the medicine (more content not included)... Normal [facility] INSULINon 08-27-2021 Insulin 19.2 uIU/mL Normal 2.6-24.9 [facility] Comment on above: Performed By: #### I NSULIN #### [facility] [address] [place] [address] Dr. Forrest Lauren CBC AUTO DIFFon 08-26-2021 BASO # 0.1 103/ul Normal 0.0-0.1 [facility] Comment on above: Performed By: #### P SASC #### [facility] [address] [place] [address] Dr. Forrest Lauren Basophils/100 WBC (Bld) 0.8 % Normal 0.2-2.0 [facility] Comment on above: Performed By: #### P SASC #### [facility] [address] [place] [address] Dr. Forrest Lauren EO # 0.4 103/ul Normal 0.0-0.7 [facility] Comment on above: Performed By: #### P SASC #### [facility] [address] [place] [address] Dr. Forrest Lauren Eosinophils/100 WBC (Bld) 4.8 % Normal 0.9-7.0 [facility] Comment on above: Performed By: #### P SASC #### [facility] [address] [place] [address] Dr. Forrest Lauren Erythrocyte distribution width (RBC) [Ratio] 12.7 % Normal 11.0-15.0 [facility] Comment on above: Performed By: #### P SASC #### [facility] [address] [place] [address] Dr. Forrest Lauren Hematocrit (Bld) [Volume fraction] 48.3 % Normal 42.0-54.0 [facility] Comment on above: Performed By: #### P SASC #### [facility] [address] [place] [address] Dr. Forrest Lauren Hemoglobin (Bld) [Mass/Vol] 16.4 g/dL Normal 14.0-18.0 [facility] Comment on above: Performed By: #### P SASC #### [facility] [address] [place] [address] Dr. Forrest Lauren IG # 0.05 10e3/ul Critically high 0.00-0.03 [facility] Comment on above: Performed By: #### P SASC #### [facility] [address] [place] [address] Dr. Forrest Lauren IG % 0.6 % Critically high 0.0-0.5 [facility] Comment on above: Performed By: #### P SASC #### [facility] [address] [place] [address] Dr. Forrest Lauren LYMPH # 2.0 103/ul Normal 1.2-3.8 [facility] Comment on above: Performed By: #### P SASC #### [facility] [address] [place] [address] Dr. Forrest Lauren Lymphocytes/100 WBC (Bld) 22.6 % Normal 20.5-60.0 [facility] Comment on above: Performed By: #### P SASC #### [facility] [address] [place] [address] Dr. Forrest Lauren MANUAL DIFF REQ NO Normal [facility] Comment on above: Performed By: #### P SASC #### [facility] [address] [address] [address] Forrest Lauren MCH (RBC) [Entitic mass] 29.8 pg Normal 25.9-34.0 [facility] Comment on above: Performed By: #### P SASC #### [facility] [address] [address] [address] Forrest Lauren MCHC (RBC) [Mass/Vol] 34.0 g/dL Normal 29.9-35.2 [facility] Comment on above: Performed By: #### P SASC #### [facility] [address] [place] [address] Dr. Forrest Lauren MCV (RBC) [Entitic vol] 87.8 fL Normal 80.0-94.0 [facility] Comment on above: Performed By: #### P SASC #### [facility] [address] [place] [address] Dr. Forrest Lauren MONO # 0.7 103/ul Normal 0.3-0.8 [facility] Comment on above: Performed By: #### P SASC #### [facility] [address] [place] [address] Dr. Forrest Lauren Monocytes/100 WBC (Bld) 8.0 % Normal 1.7-12.0 [facility] Comment on above: Performed By: #### P SASC #### [facility] [address] [place] [address] Dr. Forrest Lauren NEUT # 5.7 103/ul Normal 1.4-6.5 [facility] Comment on above: Performed By: #### P SASC #### [facility] [address] [place] [address] Dr. Forrest Lauren Neutrophils/100 WBC (Bld) 63.2 % Normal 43.0-75.0 [facility] Comment on above: Performed By: #### P SASC #### [facility] [address] [place] [address] Dr. Forrest Lauren Platelet mean volume (Bld) [Entitic vol] 9.7 fL Normal 9.5-13.5 [facility] Comment on above: Performed By: #### P SASC #### [facility] [address] [place] [address] Dr. Forrest Lauren PLT 242 103/ul Normal 150-450 [facility] Comment on above: Performed By: #### P SASC #### [facility] [address] [address] [address] Forrest Lauren RBC 5.50 106/ul Normal 4.70-6.10 [facility] Comment on above: Performed By: #### P SASC #### [facility] [address] [address] [address] Forrest Lauren WBC 9.0 103/ul Normal 4.0-11.0 [facility] Comment on above: Performed By: #### P SASC #### [facility] [address] [address] [address] Forrest Lauren GLYCOHEMOGLOBIN A1Con 2021 ADA RECOMMENDATION ADA THERAPEUTIC TARGET 6.0 - 7.0 ACTION SUGGESTED > 7.0 Normal [facility] Comment on above: Performed By: #### A 1C #### [facility] [address] [place] [address] Dr. Forrest Lauren Glucose [Mass/Vol] 194 mg/dL Normal [facility] Comment on above: Performed By: #### A 1C #### [facility] [address] [place] [address] Dr. Forrest Lauren HbA1c (Bld) [Mass fraction] 8.4 % Critically high <=6.0 [facility] Comment on above: Performed By: #### A 1C #### [facility] [address] [place] [address] Dr. Forrest Lauren LIPID PROFILEon 08-26-2021 CHOL-HDL RATIO NORM SEE BELOW Normal [facility] Comment on above: Result Comment: 3.3 - 4.4 LOW RISK 4.4 - 7.1 AVERAGE RISK 7.1 - 11.0 MODERATE RISK >11.0 HIGH RISK Performed By: #### P SASC #### [facility] [address] [address] [address] Forrest Lauren Cholesterol [Mass/Vol] 117 mg/dL Normal <=200 [facility] Comment on above: Performed By: #### P SASC #### [facility] [address] [address] [address] Forrest Lauren Cholesterol in HDL [Mass/Vol] 43 mg/dL Normal [facility] Comment on above: Performed By: #### P SASC #### [facility] [address] [address] [address] Forrest Lauren Cholesterol in LDL [Mass/Vol] 45.6 mg/dL Normal [facility] Comment on above: Performed By: #### P SASC #### [facility] [address] [address] [address] Forrest Lauren Cholesterol.total /Cholesterol in HDL [Mass ratio] 2.7 {ratio} Normal [facility] Comment on above: Performed By: #### P SASC #### [facility] [address] [address] [address] Forrest Lauren HDL NORMAL > or = 60 mg/dl - LO W CARDIOVASCULAR RISK <40 mg/dl - HIGH CARDIOVASCULAR RISK Normal [facility] Comment on above: Performed By: #### P SASC #### [facility] [address] [address] [address] Forrets Lauren LDL CALC NORMAL SEE BELOW Normal [facility] Comment on above: Result Comment: <100 mg/dl OPTIMAL 100 - 129 mg/dl NEAR OR ABOVE OPTIMAL 130 - 159 mg/dl BORDERLINE HIGH 160 - 189 mg/dl HIGH >190 mg/dl VERY HIGH Performed By: #### P SASC #### [facility] [address] [address] [address] Forrest Lauren Triglyceride [Mass/Vol] 142 mg/dL Normal <=150 [facility] Comment on above: Performed By: #### P SASC #### [facility] [address] [address] [address] Forrest Lauren VLDL CALC 28.4 mg/dL Normal [facility] Comment on above: Performed By: #### P SASC #### [facility] [address] [address] [address] Forrest Lauren PROF 14(COMP METB)on 022 Albumin [Mass/Vol] 4.1 g/dL Normal 3.5-5.0 [facility] Comment on above: Performed By: #### P SASC #### [facility] [address] [address] [address] Forrest Lauren Albumin/Globulin [Mass ratio] 1.2 {ratio} Normal [facility] Comment on above: Performed By: #### P SASC #### [facility] [address] [address] [address] Forrest Lauren ALP [Catalytic activity/Vol] 82 U/L Normal 38-126 [facility] Comment on above: Performed By: #### P SASC #### [facility] [address] [address] [address] Forrest Lauren ALT [Catalytic activity/Vol] 38 U/L Normal 21-72 [facility] Comment on above: Performed By: #### P SASC #### [facility] [address] [address] [address] Forrest Lauren Anion gap [Moles/Vol] 12.7 mmol/L Normal [facility] Comment on above: Performed By: #### P SASC #### [facility] [address] [address] [address] Forrest Lauren AST [Catalytic activity/Vol] 18 U/L Normal 17-59 [facility] Comment on above: Performed By: #### P SASC #### [facility] [address] [address] [address] Forrest Lauren Bilirubin [Mass/Vol] 1.2 mg/dL Normal 0.2-1.3 [facility] Comment on above: Performed By: #### P SASC #### [facility] [address] [place] [address] Dr. Forrest Lauren Calcium [Mass/Vol] 9.7 mg/dL Normal 8.4-10.2 [facility] Comment on above: Performed By: #### P SASC #### [facility] [address] [address] [address] Forrest Lauren Chloride [Moles/Vol] 102 mmol/L Normal 98-107 [facility] Comment on above: Performed By: #### P SASC #### [facility] [address] [address] [address] Forrest Lauren CO2 [Moles/Vol] 30.6 mmol/L Critically high 22.0-30.0 [facility] Comment on above: Performed By: #### P SASC #### [facility] [address] [address] [address] Forrest Lauren Creatinine [Mass/Vol] 1.09 mg/dL Normal 0.66-1.25 [facility] Comment on above: Performed By: #### P SASC #### [facility] [address] [address] [address] Forrest Lauren EGFR-AF CYMRO >60 Normal >=60 [facility] Comment on above: Performed By: #### P SASC #### [facility] [address] [address] [address] Forrest Lauren EGFR-NON AF CYMRO >60 Normal >=60 [facility] Comment on above: Performed By: #### P SASC #### [facility] [address] [address] [address] Forrest Lauren Globulin (S) [Mass/Vol] 3.4 g/dL Normal [facility] Comment on above: Performed By: #### P SASC #### [facility] [address] [address] [address] Forrest Lauren Glucose [Mass/Vol] 238 mg/dL Critically high 74-106 [facility] Comment on above: Performed By: #### P SASC #### [facility] [address] [address] [address] Forrest Lauren Potassium [Moles/Vol] 4.3 mmol/L Normal 3.4-5.0 [facility] Comment on above: Performed By: #### P SASC #### [facility] [address] [address] [address] Forrest Lauren Protein [Mass/Vol] 7.5 g/dL Normal 6.1-8.2 [facility] Comment on above: Performed By: #### P SASC #### [facility] [address] [address] [address] Forrest Lauren Sodium [Moles/Vol] 141 mmol/L Normal 137-145 [facility] Comment on above: Performed By: #### P SASC #### [facility] [address] [address] [address] Forrest Lauren Urea nitrogen [Mass/Vol] 20.0 mg/dL Normal 9.0-20.0 [facility] Comment on above: Performed By: #### P SASC #### [facility] [address] [address] [address] Forrest Lauren Urea nitrogen/Creatini ne [Mass ratio] 18.3 mg/mg Normal [facility] Comment on above: Performed By: #### P SASC #### [facility] [address] [address] [address] Forrest Lauren URIC ACID SERUMon 08-26-2021 Urate [Mass/Vol] 4.8 mg/dL Normal 3.5-8.5 [facility] Comment on above: Performed By: #### P SASC #### [facility] [address] [address] [address] Forrest Lauren Covid-19 PCR ([facility])on Sample Type Test performed using RT-PCR from a nasopharyngeal collected specimen. Normal [facility] Comment on above: Performed By: #### P SASC #### [facility] [address] [address] [address] Forrest Lauren SARS-CoV-2 (COVID-19) RNA MERA+probe Ql (Unsp spec) Detected Abnormal NOT DETECTED [facility] Comment on above: Result Comment: This test is not yet approved or cleared by the [place] FDA. When there are no FDA-approved or cleared tests available, and other criteria are met, FDA can make tests available under an emergency access mechanism called an Emergency Use Authorization (EUA). The EUA for this test is supported by the [employer] of Health and Human Service's (HHS's) declaration [...] used). Performed By: #### P SASC #### [facility] [address] [place] [address] Dr. Forrest Lauren POINT OF CARE GLUCOSEon Glucose [Mass/Vol] 255 mg/dL Critically high 74-106 [facility] Comment on above: Performed By: #### P OCGLUC #### [facility] [address] [place] [address] Matias Rivas XR CHEST 1 Von 12-07-2020 [...] AMARIS WALKER Date: 2020-12-06 22:04 Normal [facility] INSULINon 10-02-2020 Insulin 16.9 uIU/mL Normal 2.6-24.9 [facility] Comment on above: Performed By: #### P SASC #### [facility] [address] [place] [address] Dr. Forrest Lauren CBC AUTO DIFFon 10-01-2020 BASO # 0.1 103/ul Normal 0.0-0.1 [facility] Comment on above: Performed By: #### C BC #### [facility] [address] [place] [address] Matias Rivas Basophils/100 WBC (Bld) 0.6 % Normal 0.2-2.0 [facility] Comment on above: Performed By: #### C BC #### [facility] [address] [place] [address] Matias Evelyn EO # 0.4 103/ul Normal 0.0-0.7 [facility] Comment on above: Performed By: #### C BC #### [facility] [address] [place] [address] Matias Evelyn Eosinophils/100 WBC (Bld) 4.2 % Normal 0.9-7.0 [facility] Comment on above: Performed By: #### C BC #### [facility] [address] [place] [address] Matias Evelyn Erythrocyte distribution width (RBC) [Ratio] 13.1 % Normal 11.0-15.0 [facility] Comment on above: Performed By: #### C BC #### [facility] [address] [place] [address] Matias Evelyn Hematocrit (Bld) [Volume fraction] 50.2 % Normal 42.0-54.0 [facility] Comment on above: Performed By: #### C BC #### [facility] [address] [place] [address] Matias Evelyn Hemoglobin (Bld) [Mass/Vol] 16.6 g/dL Normal 14.0-18.0 [facility] Comment on above: Performed By: #### C BC #### [facility] [address] [place] [address] Matias Evelyn IG # 0.05 10e3/ul Critically high 0.00-0.03 [facility] Comment on above: Performed By: #### C BC #### [facility] [address] [place] [address] Matias Evelyn IG % 0.6 % Critically high 0.0-0.5 [facility] Comment on above: Performed By: #### C BC #### [facility] [address] [place] [address] Matias Evelyn LYMPH # 1.9 103/ul Normal 1.2-3.8 [facility] [facility] Comment on above: Performed By: #### C BC #### [facility] [address] [place], [place] [id number] Matias Evelyn Lymphocytes/100 WBC (Bld) 22.2 % Normal 20.5-60.0 [facility] Comment on above: Performed By: #### C BC #### [facility] [address] [place], [place] [id number] Matias Evelyn MANUAL DIFF REQ NO Normal [facility] Comment on above: Performed By: #### C BC #### [facility] [address] [place], [place] [id number] Matias Evelyn MCH (RBC) [Entitic mass] 29.4 pg Normal 25.9-34.0 [facility] Comment on above: Performed By: #### C BC #### [facility] [address] [place] [address] Matias Evelyn MCHC (RBC) [Mass/Vol] 33.1 g/dL Normal 29.9-35.2 [facility] [place] [facility] Comment on above: Performed By: #### C BC #### [facility] [address] [place], [place] [id number] Matias Evelyn MCV (RBC) [Entitic vol] 88.8 fL Normal 80.0-94.0 [facility] Comment on above: Performed By: #### C BC #### [facility] [address] [place], [place] [id number] Matias Evelyn MONO # 0.7 103/ul Normal 0.3-0.8 [facility] [place] [facility] Comment on above: Performed By: #### C BC #### [facility] [address] [place], [place] [id number] Matias Evelyn Monocytes/100 WBC (Bld) 7.7 % Normal 1.7-12.0 [facility] Comment on above: Performed By: #### C BC #### [facility] [address] [place], [place] [id number] Matias Evelyn NEUT # 5.7 103/ul Normal 1.4-6.5 [facility] [place] [facility] Comment on above: Performed By: #### C BC #### [facility] [address] [place], [place] [address] Matias Rivas Neutrophils/100 WBC (Bld) 64.7 % Normal 43.0-75.0 [facility] [place] [facility] Comment on above: Performed By: #### C BC #### [facility] [address] [place], [place] [address] Matias Rivas Platelet mean volume (Bld) [Entitic vol] 10.4 fL Normal 9.5-13.5 [facility] [place] [facility] Comment on above: Performed By: #### C BC #### [facility] [address] [place], [place] [address] Matiaswali Rodasen PLT 243 103/ul Normal 150-450 [facility] [place] [facility] Comment on above: Performed By: #### C BC #### [facility] [address] [place], [place] [phone] Matias Evelyn RBC 5.65 106/ul Normal 4.70-6.10 [facility] [place] [facility] Comment on above: Performed By: #### C BC #### [facility] [address] [place], [place] [phone] Matias Rivas WBC 8.7 103/ul Normal 4.0-11.0 [facility] [place] [facility] Comment on above: Performed By: #### C BC #### [facility] [address] [place], [place] [phone] Matias Rivas FREE THYROXINE INDEX T7on FTI 2.11 Normal The [place] [facility] Comment on above: Performed By: #### U TARIK, CMP, T7, PSASC, TSH, LIPID #### [facility] [address] [place], [place] [address] Matias Rivas T3U 34.0 % Normal 23.5-40.5 [facility] [place] [facility] Comment on above: Performed By: #### U TARIK, CMP, T7, PSASC, TSH, LIPID #### [facility] [address] [place], [place] [id number] Matias Rivas T4 [Mass/Vol] 6.20 ug/dL Normal 5.53-11.00 [facility] [place] [facility] Comment on above: Performed By: #### U TARIK, CMP, T7, PSASC, TSH, LIPID #### [facility] [address] [place], [place] [address] Matias Rivas GLYCOHEMOGLOBIN A1Con 2020 ADA RECOMMENDATION ADA THERAPEUTIC TARGET 6.0 - 7.0 ACTION SUGGESTED > 7.0 Normal [facility] Comment on above: Performed By: #### A 1C #### [facility] [address] [place] [address] Matias Rivas Glucose [Mass/Vol] 266 mg/dL Normal [facility] [place] [facility] Comment on above: Performed By: #### A 1C #### [facility] [address] [place] [address] Matias Rivas HbA1c (Bld) [Mass fraction] 10.9 % Critically high <=6.0 [facility] Comment on above: Performed By: #### A 1C #### [facility] [address] [place] [address] Matias Rivas LIPID PROFILEon 10-01-2020 CHOL-HDL RATIO NORM SEE BELOW Normal [facility] [place] [facility] Comment on above: Result Comment: 3.3 - 4.4 LOW RISK 4.4 - 7.1 AVERAGE RISK 7.1 - 11.0 MODERATE RISK >11.0 HIGH RISK Performed By: #### P SASC #### [facility] [address] [place] [address] Dr. Forrest Lauren Cholesterol [Mass/Vol] 110 mg/dL Normal <=200 [facility] [place] [facility] Comment on above: Performed By: #### P SASC #### [facility] [address] [place] [address] [address] Forrest Lauren Cholesterol in HDL [Mass/Vol] 36 mg/dL Normal [facility] [place] [facility] Comment on above: Performed By: #### P SASC #### [facility] [address] [place] [address] [address] Forrest Lauren Cholesterol in LDL [Mass/Vol] 36.2 mg/dL Normal [facility] Comment on above: Performed By: #### P SASC #### [facility] [address] [place] [address] [address] Forrest Lauren Cholesterol.total /Cholesterol in HDL [Mass ratio] 3.1 {ratio} Normal [facility] Comment on above: Performed By: #### P SASC #### [facility] [address] [place] [address] [address] Forrest Lauren HDL NORMAL > or = 60 mg/dl - LO W CARDIOVASCULAR RISK <40 mg/dl - HIGH CARDIOVASCULAR RISK Normal [facility] Comment on above: Performed By: #### P SASC #### [facility] [address] [place] [address] [address] Forrest Lauren LDL CALC NORMAL SEE BELOW Normal [facility] Comment on above: Result Comment: <100 mg/dl OPTIMAL 100 - 129 mg/dl NEAR OR ABOVE OPTIMAL 130 - 159 mg/dl BORDERLINE HIGH 160 - 189 mg/dl HIGH >190 mg/dl VERY HIGH Performed By: #### P SASC #### [facility] [address] [place] [address] Dr. Forrest Lauren Triglyceride [Mass/Vol] 189 mg/dL Critically high <=150 [facility] Comment on above: Performed By: #### P SASC #### [facility] [address] [place] [address] Dr. Forrest Lauren VLDL CALC 37.8 mg/dL Normal [facility] Comment on above: Performed By: #### P SASC #### [facility] [address] [place] [address] Dr. Forrest Lauren PROF 14(COMP METB)on 021 Albumin [Mass/Vol] 4.1 g/dL Normal 3.5-5.0 [facility] Comment on above: Performed By: #### U TARIK, CMP, T7, PSASC, TSH, LIPID #### [facility] [address] [place] [address] Matias Rivas Albumin/Globulin [Mass ratio] 1.2 {ratio} Normal [facility] [place] [facility] Comment on above: Performed By: #### U TARIK, CMP, T7, PSASC, TSH, LIPID #### [facility] [address] [place] [address] Matias Evelyn ALP [Catalytic activity/Vol] 80 U/L Normal 38-126 [facility] Comment on above: Performed By: #### U TARIK, CMP, T7, PSASC, TSH, LIPID #### [facility] [address] [place] [address] Matias Evelyn ALT [Catalytic activity/Vol] 42 U/L Normal 21-72 [facility] [place] [facility] Comment on above: Performed By: #### U TARIK, CMP, T7, PSASC, TSH, LIPID #### [facility] [address] [place] [address] Matias Evelyn Anion gap [Moles/Vol] 12.3 mmol/L Normal [facility] [place] [facility] Comment on above: Performed By: #### U TARIK, CMP, T7, PSASC, TSH, LIPID #### [facility] [address] [place] [address] Matias Evelyn AST [Catalytic activity/Vol] 24 U/L Normal 17-59 [facility] [place] [facility] Comment on above: Performed By: #### U TARIK, CMP, T7, PSASC, TSH, LIPID #### [facility] [address] [place] [address] Matias Evelyn Bilirubin [Mass/Vol] 1.3 mg/dL Normal 0.2-1.3 [facility] Comment on above: Performed By: #### U TARIK, CMP, T7, PSASC, TSH, LIPID #### [facility] [address] [place] [address] Matias Evelyn Calcium [Mass/Vol] 9.3 mg/dL Normal 8.4-10.2 [facility] Comment on above: Performed By: #### U TARIK, CMP, T7, PSASC, TSH, LIPID #### [facility] [address] [place] [address] Matias Evelyn Chloride [Moles/Vol] 103 mmol/L Normal 98-107 [facility] Comment on above: Performed By: #### U TARIK, CMP, T7, PSASC, TSH, LIPID #### [facility] [address] [place] [address] Matias Evelyn CO2 [Moles/Vol] 30.0 mmol/L Normal 22.0-30.0 [facility] Comment on above: Performed By: #### U TARIK, CMP, T7, PSASC, TSH, LIPID #### [facility] [address] [place] [address] Matias Evelyn Creatinine [Mass/Vol] 1.20 mg/dL Normal 0.66-1.25 [facility] Comment on above: Performed By: #### U TARIK, CMP, T7, PSASC, TSH, LIPID #### [facility] [address] [place] [address] Matias Evelyn EGFR-AF CYMRO >60 Normal >=60 [facility] Comment on above: Performed By: #### U TARIK, CMP, T7, PSASC, TSH, LIPID #### [facility] [address] [place] [address] Matias Evelyn EGFR-NON AF CYMRO >60 Normal >=60 [facility] Comment on above: Performed By: #### U TARIK, CMP, T7, PSASC, TSH, LIPID #### [facility] [address] [place] [address] Matias Evelyn Globulin (S) [Mass/Vol] 3.5 g/dL Normal [facility] Comment on above: Performed By: #### U TARIK, CMP, T7, PSASC, TSH, LIPID #### [facility] [address] [place] [address] Matias Evelyn Glucose [Mass/Vol] 269 mg/dL Critically high 74-106 [facility] Comment on above: Performed By: #### U TARIK, CMP, T7, PSASC, TSH, LIPID #### [facility] [address] [place] [address] Matias Evelyn Potassium [Moles/Vol] 4.3 mmol/L Normal 3.4-5.0 [facility] Comment on above: Performed By: #### U TARIK, CMP, T7, PSASC, TSH, LIPID #### [facility] [address] [place] [address] Matias Evelyn Protein [Mass/Vol] 7.6 g/dL Normal 6.1-8.2 [facility] Comment on above: Performed By: #### U TARIK, CMP, T7, PSASC, TSH, LIPID #### [facility] [address] [place] [address] Matias Evelyn Sodium [Moles/Vol] 141 mmol/L Normal 137-145 [facility] Comment on above: Performed By: #### U TARIK, CMP, T7, PSASC, TSH, LIPID #### [facility] [address] [place] [address] Matias Evelyn Urea nitrogen [Mass/Vol] 17.0 mg/dL Normal 9.0-20.0 [facility] Comment on above: Performed By: #### U TARIK, CMP, T7, PSASC, TSH, LIPID #### [facility] [address] [place] [address] Matias Evelyn Urea nitrogen/Creatini ne [Mass ratio] 14.2 mg/mg Normal [facility] Comment on above: Performed By: #### U TARIK, CMP, T7, PSASC, TSH, LIPID #### [facility] [address] [place] [address] Matias Evelyn TSHon 10-01-2020 TSH 1.574 uIU/mL Normal 0.470-4.68 0 [facility] Comment on above: Performed By: #### P SASC #### [facility] [address] [place] [address] [address] Forrest Lauren TSH RANGE SEE BELOW Normal [facility] Comment on above: Result Comment: <0.3 4 UIU/ml HYPERTHYROID 0.34-5.60 UIU/ml EUTHYROID >5.60 UIU/ml HYPOTHYROID Performed By: #### P SASC #### [facility] [address] [place] [address] Dr. Forrest Lauren URIC ACID SERUMon 10-01-2020 Urate [Mass/Vol] 4.8 mg/dL Normal 3.5-8.5 [facility] Comment on above: Performed By: #### P SASC #### [facility] [address] [place] [address] Dr. Forrest Lauren Cardiovascular Lab Reporton 08-03-2017 Cardiovascular Lab Report [id number] Physician: Jerod Miller M.D.Medicine Service Date: 2017Division of Birthdate: 6Cardiology [facility], [place] [address]Rsfse Fax Cardiovascular Laboratory ReportINDICATION: Hoang Tran is [...] the right internal jugular vein and a 6-British x 11cm sheath was placed. A 6-British Griffith catheter was used for right heartcatheterization with measurement of pressures and calculation of cardiacoutput using the estimated Luke method. Griffith catheter was removed.Using ultrasound guidance and micropuncture technique, access was obtainedin the left radial artery and a 6-British x 11 cm Hydrophilic sheath wasadvanced. Verapamil [...] and follow up in Cardiology Clinic.Electronically Signed by:Jerod Manuel M.D. 08/11/2017 03:22 A Jerod Manuel M.D.Date Dict: 08/02/2017/02:42 P/Jerod Manuel M.D.Date Trans: 08/03/2017 11:29 A/Get_[id number]: Yfn Mata D.O. [address] [place] [address] Normal [facility] Vital Signs Date Time Vital Sign Value Performing Clinician Jose fairchild 01-21-2024 11:44-0400 Blood Pressure Location [facility] 01-21-2024 11:44-0400 Diastolic blood pressure 72 mm[Hg] Moody POP [facility] 01-21-2024 11:44-0400 Heart rate 70 /min Moody POP [facility] 01-21-2024 11:44-0400 Respiratory rate 16 /min Moody POP [facility] 01-21-2024 11:31-5252 Systolic blood pressure 108 mm[Hg] Moody POP [facility] Encounters Encounter Date Encounter Type Care Provider Facility Start: 06-02-2024 ambulatory Moody POP Facili ty:[facility] Start: 02-25-2024 End: 02-25-2024 ambulatory [facility] Start: 02-11-2024 End: 02-11-2024 ambulatory Moody POP Facility:[id number] Start: 01-21-2024 End: 01-21-2024 ambulatory Moody POP Facility:[facility] Start: 01-21-2024 End: 01-21-2024 Patient encounter procedure Moody POP [facility] Start: 09-12-2023 ambulatory Moody POP Facility :[facility] Start: 08-26-2021 End: 08-26-2021 ambulatory AILIN BAKER Facility:[facility] Start: 02-23-2021 ambulatory AILIN BAKER Facility:[facility] Start: 12-06-2020 End: 12-07-2020 ambulatory ILAN TODD Facility:[facility] Start: 10-07-2020 Encounter for genera l adult medical examination without abnormal findings AILIN BAKER [facility] Start: 10-01-2020 End: 10-02-2020 ambulatory AILIN BAKER Facility:[facility] Start: 10-01-2020 End: 10-02-2020 Encounter for general adult medical examination without abnormal findings AILIN BAKER Facility:[facility] Start: 2017 End: 08-03-2017 Ambulatory PROVIDER UNKNOWN Facility:[facility] Start: 07-24-2017 End: 07-25-2017 Ambulatory DEFAULT PHYSICIAN Facility:[facility] Start: 07-19-2017 End: 07-20-2017 Ambulatory DEFAULT PHYSICIAN Facility:[facility] Start: 06-18-2017 End: 06-19-2017 Ambulatory DEFAULT PHYSICIAN Facility:[facility] Procedures Date Procedure Procedure Detail Performing Clinician Start: 08-26-2021 PSA screening AILIN KHAN Comment on above: Performed By: #### P SASC #### [facility] [address] [place], [place] [address] Dr. Forrest Lauren Start: 10-01-2020 PSA screening AILIN KHAN Comment on above: Performed By: #### U TARIK, CMP, T7, PSASC, TSH, LIPID #### [facility] [address] [place], [place] [address] Matias Rivas Start: 08-06-2013 Colonoscopy [facility] Start: 08-06-2004 Neoplasm of brain (disorder) Moody POP Back structure, excl uding neck (body structure) Moody POP Tonsillectomy Moody POP Payers Date Payer Category Payer Private Health Insurance [id number] 1958 [facility] [id number] 1958 Medicare [id number] 1958 Self-pay 1955 Unknown [id number] 2.16.84 [id number] 1956 Unknown [id number] 2.16.84 [id number] 1956 Unknown [id number] 2.16.84 [id number] 1956 Unknown [id number] 2.16.84 [id number] 1956 Unknown [id number] 2.16.8 [id number] 1956 Unknown [id number] 2.16.8 [id number] 1956 Unknown [id number] 2.16.8 [id number] Unknown Social History Date Type Detail Facility Start: 01-21-2024 Tobacco smoking status Never s moked tobacco (finding) [facility] Tobacco smoking status Never [facility] Sex Assigned At Male [facility] Functional Status Date Assessment Result Facility 01-21-2024 Functional Status N/A [facility] Progress note 02-25-2024 Note Date & Type Note Facility 02-25-2024 Note [facility] Subjective Hoang Tran is a 68 y.o. year old male patient being seen to re-establish care. He was last seen by Dr. Manuel in Mar 2018. Had routine labs w/ lipid panel in Aug 2023. C/o fatigue and loss of appetite. Denies chest pain, but c/o SOB w/wo exertion. He states even showering exhausts him. He stopped taking Jardiance about 1 month ago and he thinks all these problems are from that medication. Has not had any cardiac testing since 2016. He gets very lightheaded and dizzy. States he quit driving a few months ago because of this. Patient Active Problem List Diagnosis ENE (obstructive sleep apnea) Non-rheumatic mitral regurgitation Nonrheumatic aortic valve insufficiency Primary hypertension Family History Problem Relation Name Age of Onset Coronary artery disease Mother Social History Tobacco Use Smoking status: Never Smokeless tobacco: Never Substance Use Topics Alcohol use: Yes Comment: occasional HPI Hoang is seen as a new patient. He used to follow-up with us. We last saw him in the office on 03/28/2018. He has prior history of hypertension for many years. In the past echocardiogram showed significant mitral regurgitation with mild to moderate aortic regurgitation. Follow-up echocardiogram after control of hypertension in July 2017 showed mild mitral regurgitation with normalization of right-sided pressures. Cardiac catheterization in 2017 performed due to ischemia on stress testing showed normal coronary angiogram, normal filling pressures and normal pulmonary arterial pressures. He has history of acoustic neuroma surgery and says since then he has had high blood pressure. He s/p disc herniation repair >23 years ago. He has obstructive sleep apnea on CPAP therapy. He has diabetes and is currently on metformin and Januvia. Today he reports that he has been having significant symptoms of shortness of breath on very minimal exertion exertion. He feels exhausted with no energy on walking short distances. He does not have lower extremity edema. He feels dizzy and lightheaded. He was on Jardiance and had to stop it due to excessive urination. He denies chest pain. No palpitations. Review of Systems Constitutional: Positive for decreased appetite, malaise/fatigue and weight loss. HENT: Positive for hearing loss. Cardiovascular: Positive for dyspnea on exertion and near-syncope. Respiratory: Positive for shortness of breath. Neurological: Positive for dizziness and light-headedness. All other systems reviewed and are negative. Objective Visit Vitals BP 102/60 (BP Location: Left arm, Patient Position: Sitting) Pulse 100 Ht 1.88 m (6' 2 ) Wt 91.6 kg (202 lb) SpO2 97% BMI 25.94 kg/m??? Smoking Status Never BSA 2.19 m??? Physical Exam Constitutional: Appearance: He is well-developed. He is not ill-appearing. HENT: Head: Normocephalic and atraumatic. Nose: Nose normal. Eyes: General: No scleral icterus. Pupils: Pupils are equal, round, and reactive to light. Neck: Thyroid: No thyromegaly. Vascular: No JVD. Cardiovascular: Rate and Rhythm: Normal rate. Rhythm regularly irregular. Pulses: Radial pulses are 2+ on the right side and 2+ on the left side. Heart sounds: Murmur heard. Systolic (RUSB, apex) murmur is present with a grade of 4/6. No friction rub. No gallop. Pulmonary: Effort: Pulmonary effort is normal. No respiratory distress. Breath sounds: Normal breath sounds. No wheezing or rales. Chest: Chest wall: No tenderness. Abdominal: General: Bowel sounds are normal. There is no distension. Palpations: Abdomen is soft. Tenderness: There is no abdominal tenderness. Musculoskeletal: General: No swelling. Cervical back: Neck supple. Skin: General: Skin is warm and dry. Neurological: General: No focal deficit present. Mental Status: He is alert and oriented to person, place, and time. Psychiatric: Mood and Affect: Mood normal. Behavior: Behavior is cooperative. Judgment: Judgment normal. Allergies Allergies Allergen Reactions Jardiance [Empagliflozin] Other Medications Current Outpatient Medications: atorvastatin (Lipitor) 40 mg tablet, Take 40 mg by mouth at bedtime., Disp: , Rfl: carvedilol (Coreg) 6.25 mg tablet, Take 6.25 mg by mouth with breakfast and with evening meal., Disp: , Rfl: Flomax 0.4 mg 24 hr capsule, Take 0.4 mg by mouth in the morning., Disp: , Rfl: Januvia 100 mg tablet, Take 100 mg by mouth in the morning., Disp: , Rfl: losartan (Cozaar) 100 mg tablet, Take 100 mg by mouth 1 (one) time each day., Disp: , Rfl: metFORMIN (Glucophage) 1,000 mg tablet, Take 1 tablet twice a day by oral route for 30 days., Disp: , Rfl: amLODIPine (Norvasc) 5 mg tablet, Take 1 tablet (5 mg) by mouth in the morning., Disp: 90 tablet, Rfl: 3 Recent Labs Blood testing 08/30/2023: Hemoglobin 16.9, platelets 256, potassium (more content not included)... [facility] Clinical Note 01-21-2024 Note Date & Type [...] male new pt referred by Ailin Green CNP due to LUTS. 1. BPH with obstruction/lower [...] order Local anesthesia. Prophylactic abx sent to [facility]. 2. OAB (overactive bladder) (N32.81: Overactive [...] neoplasm of prostat (more content not included)... [facility] Comment on above: Result Comment: Elec tronically Signed By: Moody POP MD\.br\Date and Time Signed: 01/21/24 12:46 EDT\.br\Electronically Co-Signed By: Sowmya Flowers.br\Date and Time Co-Signed: 01/21/24 12:42 EDT Hospital [...] urethra. Follow these instructions at home: Take [id number] and prescription medicines only as told by [...] provider. Document Revised: 02/08/2022 Document Reviewed: 02/08/2022 Storage By [employer] Patient Education 2022 [employer] Follow Up Care 09/13/2023 09:26:56 With:DONN ELLIS, Moody Aranda, URL Address: [facility] [address] , [place] [address]- When: Unknown [facility] Evaluation + Plan note Note Date & Type Note Facility Evaluation + Plan note No data available for this section [facility] Progress note Note Date & Type Note Facility Progress note No data available for this section [facility] Summary Purpose Family History No Family History Records FoundNo Family History Records Found No data available for this section No Family History Records FoundNo Family History Records Found Advance Directives No Advanced Directives Records FoundNo Advanced Directives Records FoundNo Advanced Directives Records FoundNo Advanced Directives Records Found Additional Source Comments (unrecognized sect ion and content) No Status Records FoundNo Status Records FoundNo Status Records FoundNo Status Records Found INFORMATION SOURCE (unrecogn ized section and content) DATE CREATED AUTHOR 01/29/2018 [facility] DATE CREATED AUTHOR AUTHOR'S ORGANIZ ATION 09/01/2021 [facility] DATE CREATED AUTHOR AUTHOR'S ORGANIZ ATION 02/21/2024 [facility] DATE CREATED AUTHOR AUTHOR'S ORGANIZ ATION 02/27/2024 [facility] Patient Care team informatio n (unrecognized section and content) Personnel Name: AILIN GREEN CNP Address: Address: [address] [place], [place] [address] FOR RECORDS PERTAINING TO PATIENTS WHO ARE [...] BE BASED ON THE PRIMARY CLINICAL RECORDS. [facility] [employer] [facility]. provides no warranty or guarantee of the accuracy or completeness of information in this document.
== END 2024-03-06 07:56 | disposition home or self-care (01) ==
LOC: CARD 07:56
PROVIDERS: PCP Nurse Practitioner Family; Visit Provider Internal Medicine Interventional Cardiology
DX: I34.0 Nonrheumatic mitral (valve) insufficiency (principal); R06.02 Shortness of breath
CPT/HCPCS: 93306

== ENCOUNTER 2024-03-22 10:16 | Outpatient (OUT) | payer MEDICARE, SELFPAY ==
--- OUTSIDE RECORDS SUMMARY | 2024-03-22 10:20 | XMS_ITS | CCD ---
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 Role Phone PHYSICIAN, DEFAULT Unavailable Unavailable [...] Consulting Unavailable AILIN GREEN Primary Care Physician JEROD MANUEL Attending Unavailable Moody POP Attending Unavailable Moody POP Attending Unavailable AILIN GREEN Referring Unavailable Moody POP Attending Unavailable Allergies Allergy Classification Reported Allergen(s) Allergy Type Date of Onset Reaction(s) Facility (2 sources) No Known Allergies; 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: [No Known Allergies] Propensity to adverse reactions (disorder) 7 [facility] Repository (1 source) empagliflozin; 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: [EMPAGLIFLOZIN] Drug Allergy [facility] (1 source) No Known Medication Allergies; 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: [No Known Medication Allergies] Propensity to adverse reactions (disorder) [facility] Repository Medications Current Medications Medication Drug Class(es) [...] completed, # 2 tab(s), Refills(s) 0, Pharmacy: [facility], 187, cm, 01/21/24 11:48:00 EDT, Height/Length [...] / UNK(Unknown) Onset: 2017 Unclassified (1 source) 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; 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: [MCFP (CURRENT) USE OF ORAL 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 DRUGS] Onset: 2017 Unclassified (1 source) Patient encounter status 01-21-2024 Viral infection (1 source) COVID-19; 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: [COVID-19] Onset: 12-08-2020 Past or Other Problems Problem Classification Problem Date Documented Da te Episodic/Chronic Other aftercare (1 source) snf (current) use of aspirin; 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: [MCFP (CURRENT) USE OF ASPIRIN] Onset: 2017 Episodic Other lower respiratory disease (3 sources) Cough; 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: [COUGH] Onset: 12-06-2020 Episodic Results Test Name Value Interpretation Reference Range Facility Office Visiton 02-25-2024 Follow-up visit [id number] [place]an 1955 M Date Provider Department Center 02/25/2024 JEROD BANKS Family History Problem Relation Age of Onset Coronary artery disease Mother Family Status - Relation Status Age at Mother Level of Service:[address] [place] OFFICE/OUTPATIENT NEW MODERATE MDM 45 MINUTES [facility] Insurance Correspondenceon 0 01-30-2024 Insurance Correspondence [id number]#1.00TIFF [facility] Consent for Procedure/Surger yon 01-22-2024 Consent for Procedure/Surgery [id number]#1.00TIFF [facility] Physician Referralon 024 Physician Referral [id number]#1.00TIFF [facility] Screenson 01-22-2024 Screens [id number]#1.00TIFF [facility] Ambulatory Visit Summaryon 0 01-21-2024 Ambulatory Visit [...] Urology [address], [place] [address]- Medications What When Instructions Unchanged amlodipine (amLODIPine [...] urine (ur (more content not included)... Normal [facility] Patient Educationon 01-21-20 Patient Education Urology Benign [...] Follow these instructions at home: ? Take xnee-zax-fjynoeq and prescription medicines only as told by [...] the medicine (more content not included)... Normal [facility] INSULINon 08-27-2021 Insulin 19.2 uIU/mL Normal 2.6-24.9 [facility] Comment on above: Performed By: #### I NSULIN #### [facility] [address] [place] [address] Dr. Forrest Lauren CBC AUTO DIFFon 08-26-2021 BASO # 0.1 103/ul Normal 0.0-0.1 [facility] Comment on above: Performed By: #### P SASC #### [facility] [address] [place] [address] Dr. Forrest Lauren Basophils/100 WBC (Bld) 0.8 % Normal 0.2-2.0 [facility] Comment on above: Performed By: #### P SASC #### [facility] [address] [place] [address] Dr. Forrest Lauren EO # 0.4 103/ul Normal 0.0-0.7 [facility] Comment on above: Performed By: #### P SASC #### [facility] [address] [place] [address] Dr. Forrest Lauren Eosinophils/100 WBC (Bld) 4.8 % Normal 0.9-7.0 [facility] Comment on above: Performed By: #### P SASC #### [facility] [address] [place] [address] Dr. Forrest Lauren Erythrocyte distribution width (RBC) [Ratio] 12.7 % Normal 11.0-15.0 [facility] Comment on above: Performed By: #### P SASC #### [facility] [address] [place] [address] Dr. Forrest Lauren Hematocrit (Bld) [Volume fraction] 48.3 % Normal 42.0-54.0 [facility] Comment on above: Performed By: #### P SASC #### [facility] [address] [place] [address] Dr. Forrest Lauren Hemoglobin (Bld) [Mass/Vol] 16.4 g/dL Normal 14.0-18.0 [facility] Comment on above: Performed By: #### P SASC #### [facility] [address] [place] [address] Dr. Forrest Lauren IG # 0.05 10e3/ul Critically high 0.00-0.03 [facility] Comment on above: Performed By: #### P SASC #### [facility] [address] [place] [address] Dr. Forrest Lauren IG % 0.6 % Critically high 0.0-0.5 [facility] Comment on above: Performed By: #### P SASC #### [facility] [address] [place] [address] Dr. Forrest Lauren LYMPH # 2.0 103/ul Normal 1.2-3.8 [facility] Comment on above: Performed By: #### P SASC #### [facility] [address] [place] [address] Dr. Forrest Lauren Lymphocytes/100 WBC (Bld) 22.6 % Normal 20.5-60.0 [facility] Comment on above: Performed By: #### P SASC #### [facility] [address] [place] [address] Dr. Forrest Lauren MANUAL DIFF REQ NO Normal [facility] Comment on above: Performed By: #### P SASC #### [facility] [address] [address] [address] Forrest Lauren MCH (RBC) [Entitic mass] 29.8 pg Normal 25.9-34.0 [facility] Comment on above: Performed By: #### P SASC #### [facility] [address] [address] [address] Forrest Lauren MCHC (RBC) [Mass/Vol] 34.0 g/dL Normal 29.9-35.2 [facility] Comment on above: Performed By: #### P SASC #### [facility] [address] [place] [address] Dr. Forrest Lauren MCV (RBC) [Entitic vol] 87.8 fL Normal 80.0-94.0 [facility] Comment on above: Performed By: #### P SASC #### [facility] [address] [place] [address] Dr. Forrest Lauren MONO # 0.7 103/ul Normal 0.3-0.8 [facility] Comment on above: Performed By: #### P SASC #### [facility] [address] [place] [address] Dr. Forrest Lauren Monocytes/100 WBC (Bld) 8.0 % Normal 1.7-12.0 [facility] Comment on above: Performed By: #### P SASC #### [facility] [address] [place] [address] Dr. Forrest Lauren NEUT # 5.7 103/ul Normal 1.4-6.5 [facility] Comment on above: Performed By: #### P SASC #### [facility] [address] [place] [address] Dr. Forrest Lauren Neutrophils/100 WBC (Bld) 63.2 % Normal 43.0-75.0 [facility] Comment on above: Performed By: #### P SASC #### [facility] [address] [place] [address] Dr. Forrest Lauren Platelet mean volume (Bld) [Entitic vol] 9.7 fL Normal 9.5-13.5 [facility] Comment on above: Performed By: #### P SASC #### [facility] [address] [place] [address] Dr. Forrest Laruen PLT 242 103/ul Normal 150-450 [facility] Comment on above: Performed By: #### P SASC #### [facility] [address] [address] [address] Forrest Lauren RBC 5.50 106/ul Normal 4.70-6.10 [facility] Comment on above: Performed By: #### P SASC #### [facility] [address] [address] [address] Forrest Lauren WBC 9.0 103/ul Normal 4.0-11.0 [facility] Comment on above: Performed By: #### P SASC #### [facility] [address] [address] [address] Forrest Lauren GLYCOHEMOGLOBIN A1Con 2021 ADA RECOMMENDATION ADA THERAPEUTIC TARGET 6.0 - 7.0 ACTION SUGGESTED > 7.0 Normal [facility] Comment on above: Performed By: #### A 1C #### [facility] [address] [place] [address] Dr. Forrest Lauren Glucose [Mass/Vol] 194 mg/dL Normal [facility] Comment on above: Performed By: #### A 1C #### [facility] [address] [place] [address] Dr. Forrest Lauren HbA1c (Bld) [Mass fraction] 8.4 % Critically high <=6.0 [facility] Comment on above: Performed By: #### A 1C #### [facility] [address] [place] [address] Dr. Forrest Lauren LIPID PROFILEon 08-26-2021 CHOL-HDL RATIO NORM SEE BELOW Normal [facility] Comment on above: Result Comment: 3.3 - 4.4 LOW RISK 4.4 - 7.1 AVERAGE RISK 7.1 - 11.0 MODERATE RISK >11.0 HIGH RISK Performed By: #### P SASC #### [facility] [address] [address] [address] Forrest Lauren Cholesterol [Mass/Vol] 117 mg/dL Normal <=200 [facility] Comment on above: Performed By: #### P SASC #### [facility] [address] [address] [address] Forrest Lauren Cholesterol in HDL [Mass/Vol] 43 mg/dL Normal [facility] Comment on above: Performed By: #### P SASC #### [facility] [address] [address] [address] Forrest Lauren Cholesterol in LDL [Mass/Vol] 45.6 mg/dL Normal [facility] Comment on above: Performed By: #### P SASC #### [facility] [address] [address] [address] Forrest Lauren Cholesterol.total /Cholesterol in HDL [Mass ratio] 2.7 {ratio} Normal [facility] Comment on above: Performed By: #### P SASC #### [facility] [address] [address] [address] Forrest Lauren HDL NORMAL > or = 60 mg/dl - LO W CARDIOVASCULAR RISK <40 mg/dl - HIGH CARDIOVASCULAR RISK Normal [facility] Comment on above: Performed By: #### P SASC #### [facility] [address] [address] [address] Forrest Lauren LDL CALC NORMAL SEE BELOW Normal [facility] Comment on above: Result Comment: <100 mg/dl OPTIMAL 100 - 129 mg/dl NEAR OR ABOVE OPTIMAL 130 - 159 mg/dl BORDERLINE HIGH 160 - 189 mg/dl HIGH >190 mg/dl VERY HIGH Performed By: #### P SASC #### [facility] [address] [address] [address] Forrest Lauren Triglyceride [Mass/Vol] 142 mg/dL Normal <=150 [facility] Comment on above: Performed By: #### P SASC #### [facility] [address] [address] [address] Forerst Lauren VLDL CALC 28.4 mg/dL Normal [facility] Comment on above: Performed By: #### P SASC #### [facility] [address] [address] [address] Forrest Lauren PROF 14(COMP METB)on 022 Albumin [Mass/Vol] 4.1 g/dL Normal 3.5-5.0 [facility] Comment on above: Performed By: #### P SASC #### [facility] [address] [address] [address] Forrest Lauren Albumin/Globulin [Mass ratio] 1.2 {ratio} Normal [facility] Comment on above: Performed By: #### P SASC #### [facility] [address] [address] [address] Forrest Lauren ALP [Catalytic activity/Vol] 82 U/L Normal 38-126 [facility] Comment on above: Performed By: #### P SASC #### [facility] [address] [address] [address] Forrest Lauren ALT [Catalytic activity/Vol] 38 U/L Normal 21-72 [facility] Comment on above: Performed By: #### P SASC #### [facility] [address] [address] [address] Forrest Lauren Anion gap [Moles/Vol] 12.7 mmol/L Normal [facility] Comment on above: Performed By: #### P SASC #### [facility] [address] [address] [address] Forrest Lauren AST [Catalytic activity/Vol] 18 U/L Normal 17-59 [facility] Comment on above: Performed By: #### P SASC #### [facility] [address] [address] [address] Forrest Lauren Bilirubin [Mass/Vol] 1.2 mg/dL Normal 0.2-1.3 [facility] Comment on above: Performed By: #### P SASC #### [facility] [address] [place] [address] Dr. Forrest Lauren Calcium [Mass/Vol] 9.7 mg/dL Normal 8.4-10.2 [facility] Comment on above: Performed By: #### P SASC #### [facility] [address] [address] [address] Forrest Lauren Chloride [Moles/Vol] 102 mmol/L Normal 98-107 [facility] Comment on above: Performed By: #### P SASC #### [facility] [address] [address] [address] Forrest Lauren CO2 [Moles/Vol] 30.6 mmol/L Critically high 22.0-30.0 [facility] Comment on above: Performed By: #### P SASC #### [facility] [address] [address] [address] Forrest Lauren Creatinine [Mass/Vol] 1.09 mg/dL Normal 0.66-1.25 [facility] Comment on above: Performed By: #### P SASC #### [facility] [address] [address] [address] Forrest Lauren EGFR-AF THAI >60 Normal >=60 [facility] Comment on above: Performed By: #### P SASC #### [facility] [address] [address] [address] Forrest Lauren EGFR-NON AF THAI >60 Normal >=60 [facility] Comment on above: Performed By: #### P SASC #### [facility] [address] [address] [address] Forrest Lauren Globulin (S) [Mass/Vol] 3.4 g/dL Normal [facility] Comment on above: Performed By: #### P SASC #### [facility] [address] [address] [address] Forrest Lauren Glucose [Mass/Vol] 238 mg/dL Critically high 74-106 [facility] Comment on above: Performed By: #### P SASC #### [facility] [address] [address] [address] Forrest Lauren Potassium [Moles/Vol] 4.3 mmol/L Normal 3.4-5.0 [facility] Comment on above: Performed By: #### P SASC #### [facility] [address] [address] [address] Forrest Lauren Protein [Mass/Vol] 7.5 g/dL Normal 6.1-8.2 [facility] Comment on above: Performed By: #### P SASC #### [facility] [address] [address] [address] Forrest Lauren Sodium [Moles/Vol] 141 mmol/L Normal 137-145 [facility] Comment on above: Performed By: #### P SASC #### [facility] [address] [address] [address] Forrest Lauren Urea nitrogen [Mass/Vol] 20.0 mg/dL Normal 9.0-20.0 [facility] Comment on above: Performed By: #### P SASC #### [facility] [address] [address] [address] Forrest Lauren Urea nitrogen/Creatini ne [Mass ratio] 18.3 mg/mg Normal [facility] Comment on above: Performed By: #### P SASC #### [facility] [address] [address] [address] Forrest Lauren URIC ACID SERUMon 08-26-2021 Urate [Mass/Vol] 4.8 mg/dL Normal 3.5-8.5 [facility] Comment on above: Performed By: #### P SASC #### [facility] [address] [address] [address] Forrest Lauren Covid-19 PCR ([facility])on Sample Type Test performed using RT-PCR from a nasopharyngeal collected specimen. Normal [facility] Comment on above: Performed By: #### P SASC #### [facility] [address] [address] [address] Forrest Lauren SARS-CoV-2 (COVID-19) RNA MERA+probe Ql (Unsp spec) Detected Abnormal NOT DETECTED [facility] Comment on above: Result Comment: This test is not yet approved or cleared by the [place] FDA. When there are no FDA-approved or cleared tests available, and other criteria are met, FDA can make tests available under an emergency access mechanism called an Emergency Use Authorization (EUA). The EUA for this test is supported by the [place] of Health and Human Service's (HHS's) declaration [...] used). Performed By: #### P SASC #### [facility] [address] [place] [address] Dr. Forrest Lauren POINT OF CARE GLUCOSEon Glucose [Mass/Vol] 255 mg/dL Critically high 74-106 [facility] Comment on above: Performed By: #### P OCGLUC #### [facility] [address] [place] [address] Matias Rivas XR CHEST 1 Von 12-07-2020 [...] AMARIS WALKER Date: 2020-12-06 22:04 Normal [facility] INSULINon 10-02-2020 Insulin 16.9 uIU/mL Normal 2.6-24.9 [facility] Comment on above: Performed By: #### P SASC #### [facility] [address] [place] [address] Dr. Forrest Lauren CBC AUTO DIFFon 10-01-2020 BASO # 0.1 103/ul Normal 0.0-0.1 [facility] Comment on above: Performed By: #### C BC #### [facility] [address] [place] [address] Matias Rivas Basophils/100 WBC (Bld) 0.6 % Normal 0.2-2.0 [facility] Comment on above: Performed By: #### C BC #### [facility] [address] [place] [address] Matais Evelyn EO # 0.4 103/ul Normal 0.0-0.7 [facility] Comment on above: Performed By: #### C BC #### [facility] [address] [place] [address] Matias Evelyn Eosinophils/100 WBC (Bld) 4.2 % Normal 0.9-7.0 [facility] Comment on above: Performed By: #### C BC #### [facility] [address] [place] [address] Matias Evelyn Erythrocyte distribution width (RBC) [Ratio] 13.1 % Normal 11.0-15.0 [facility] Comment on above: Performed By: #### C BC #### [facility] [address] [place] [address] Matias Evelyn Hematocrit (Bld) [Volume fraction] 50.2 % Normal 42.0-54.0 [facility] Comment on above: Performed By: #### C BC #### [facility] [address] [place] [address] Matias Evelyn Hemoglobin (Bld) [Mass/Vol] 16.6 g/dL Normal 14.0-18.0 [facility] Comment on above: Performed By: #### C BC #### [facility] [address] [place] [address] Matias Evelyn IG # 0.05 10e3/ul Critically high 0.00-0.03 [facility] Comment on above: Performed By: #### C BC #### [facility] [address] [place] [address] Matias Evelyn IG % 0.6 % Critically high 0.0-0.5 [facility] Comment on above: Performed By: #### C BC #### [facility] [address] [place] [address] Matias Evelyn LYMPH # 1.9 103/ul Normal 1.2-3.8 [facility] Comment on above: Performed By: #### C BC #### [facility] [address] [place], [place] [id number] Matias Evelyn Lymphocytes/100 WBC (Bld) 22.2 % Normal 20.5-60.0 [facility] Comment on above: Performed By: #### C BC #### [facility] [address] [place], [place] [id number] Matias Evelyn MANUAL DIFF REQ NO Normal [facility] Comment on above: Performed By: #### C BC #### [facility] [address] [place], [place] [id number] Matias Evelyn MCH (RBC) [Entitic mass] 29.4 pg Normal 25.9-34.0 [facility] Comment on above: Performed By: #### C BC #### [facility] [address] [place] [address] Matias Evelyn MCHC (RBC) [Mass/Vol] 33.1 g/dL Normal 29.9-35.2 [facility] Comment on above: Performed By: #### C BC #### [facility] [address] [place], [place] [address] Matias Evelyn MCV (RBC) [Entitic vol] 88.8 fL Normal 80.0-94.0 [facility] Comment on above: Performed By: #### C BC #### [facility] [address] [place], [place] [address] Matias Evelyn MONO # 0.7 103/ul Normal 0.3-0.8 [facility] Comment on above: Performed By: #### C BC #### [facility] [address] [place], [place] [address] Matias Evelyn Monocytes/100 WBC (Bld) 7.7 % Normal 1.7-12.0 [facility] Comment on above: Performed By: #### C BC #### [facility] [address] [place], [place] [address] Matias Evelyn NEUT # 5.7 103/ul Normal 1.4-6.5 [facility] Comment on above: Performed By: #### C BC #### [facility] [address] [place], [place] [address] Matias Rivas Neutrophils/100 WBC (Bld) 64.7 % Normal 43.0-75.0 [facility] Comment on above: Performed By: #### C BC #### [facility] [address] [place], [place] [address] Matias Rivas Platelet mean volume (Bld) [Entitic vol] 10.4 fL Normal 9.5-13.5 [facility] Comment on above: Performed By: #### C BC #### [facility] [address] [place], [place] [address] Matiaswali Rodasen PLT 243 103/ul Normal 150-450 [facility] Comment on above: Performed By: #### C BC #### [facility] [facility] [address] [place], [place] [id number] Matias Evelyn RBC 5.65 106/ul Normal 4.70-6.10 [facility] Comment on above: Performed By: #### C BC #### [facility] [address] [place], [place] [id number] Matias Rivas WBC 8.7 103/ul Normal 4.0-11.0 [facility] Comment on above: Performed By: #### C BC #### [facility] [address] [place], [place] [id number] Matias Rivas FREE THYROXINE INDEX T7on FTI 2.11 Normal [facility] Comment on above: Performed By: #### U TARIK, CMP, T7, PSASC, TSH, LIPID #### [facility] [address] [place], [place] [id number] Matias Rivas T3U 34.0 % Normal 23.5-40.5 [facility] Comment on above: Performed By: #### U TARIK, CMP, T7, PSASC, TSH, LIPID #### [facility] [address] [place], [place] [id number] Matias Rivas T4 [Mass/Vol] 6.20 ug/dL Normal 5.53-11.00 [facility] Comment on above: Performed By: #### U TARIK, CMP, T7, PSASC, TSH, LIPID #### [facility] [address] [place], [place] [address] Matias Rivas GLYCOHEMOGLOBIN A1Con 2020 ADA RECOMMENDATION ADA THERAPEUTIC TARGET 6.0 - 7.0 ACTION SUGGESTED > 7.0 Normal [facility] Comment on above: Performed By: #### A 1C #### [facility] [address] [address] Matias Rivas Glucose [Mass/Vol] 266 mg/dL Normal [facility] Comment on above: Performed By: #### A 1C #### [facility] [address] [address] Matias Rivas HbA1c (Bld) [Mass fraction] 10.9 % Critically high <=6.0 [facility] Comment on above: Performed By: #### A 1C #### [facility] [address] [place] [address] Matias Rivas LIPID PROFILEon 10-01-2020 CHOL-HDL RATIO NORM SEE BELOW Normal [facility] Comment on above: Result Comment: 3.3 - 4.4 LOW RISK 4.4 - 7.1 AVERAGE RISK 7.1 - 11.0 MODERATE RISK >11.0 HIGH RISK Performed By: #### P SASC #### [facility] [address] [place] [address] Dr. Forrest Lauren Cholesterol [Mass/Vol] 110 mg/dL Normal <=200 [facility] Comment on above: Performed By: #### P SASC #### [facility] [address] [address] [address] Forrest Lauren Cholesterol in HDL [Mass/Vol] 36 mg/dL Normal [facility] Comment on above: Performed By: #### P SASC #### [facility] [address] [address] [address] Forrest Lauren Cholesterol in LDL [Mass/Vol] 36.2 mg/dL Normal [facility] Comment on above: Performed By: #### P SASC #### [facility] [address] [address] [address] Forrest Lauren Cholesterol.total /Cholesterol in HDL [Mass ratio] 3.1 {ratio} Normal [facility] Comment on above: Performed By: #### P SASC #### [facility] [address] [address] [address] Forrest Lauren HDL NORMAL > or = 60 mg/dl - LO W CARDIOVASCULAR RISK <40 mg/dl - HIGH CARDIOVASCULAR RISK Normal [facility] Comment on above: Performed By: #### P SASC #### [facility] [address] [address] [address] Forrest Lauren LDL CALC NORMAL SEE BELOW Normal [facility] Comment on above: Result Comment: <100 mg/dl OPTIMAL 100 - 129 mg/dl NEAR OR ABOVE OPTIMAL 130 - 159 mg/dl BORDERLINE HIGH 160 - 189 mg/dl HIGH >190 mg/dl VERY HIGH Performed By: #### P SASC #### [facility] [address] [place] [address] Dr. Forrest Lauren Triglyceride [Mass/Vol] 189 mg/dL Critically high <=150 [facility] Comment on above: Performed By: #### P SASC #### [facility] [address] [place] [address] Dr. Forrest Lauren VLDL CALC 37.8 mg/dL Normal [facility] Comment on above: Performed By: #### P SASC #### [facility] [address] [place] [address] Dr. Forrest Lauren PROF 14(COMP METB)on 021 Albumin [Mass/Vol] 4.1 g/dL Normal 3.5-5.0 [facility] Comment on above: Performed By: #### U TARIK, CMP, T7, PSASC, TSH, LIPID #### [facility] [address] [place] [address] Matias Rivas Albumin/Globulin [Mass ratio] 1.2 {ratio} Normal [facility] Comment on above: Performed By: #### U TARIK, CMP, T7, PSASC, TSH, LIPID #### [facility] [address] [address] Matias Evelyn ALP [Catalytic activity/Vol] 80 U/L Normal 38-126 [facility] Comment on above: Performed By: #### U TARIK, CMP, T7, PSASC, TSH, LIPID #### [facility] [address] [address] Matias Evelyn ALT [Catalytic activity/Vol] 42 U/L Normal 21-72 [facility] Comment on above: Performed By: #### U TARIK, CMP, T7, PSASC, TSH, LIPID #### [facility] [address] [address] Matias Evelyn Anion gap [Moles/Vol] 12.3 mmol/L Normal [facility] Comment on above: Performed By: #### U TARIK, CMP, T7, PSASC, TSH, LIPID #### [facility] [address] [place] [address] Matias Evelyn AST [Catalytic activity/Vol] 24 U/L Normal 17-59 [facility] Comment on above: Performed By: #### U TARIK, CMP, T7, PSASC, TSH, LIPID #### [facility] [address] [place] [address] Matias Evelyn Bilirubin [Mass/Vol] 1.3 mg/dL Normal 0.2-1.3 [facility] Comment on above: Performed By: #### U TARIK, CMP, T7, PSASC, TSH, LIPID #### [facility] [address] [place] [address] Matias Evelyn Calcium [Mass/Vol] 9.3 mg/dL Normal 8.4-10.2 [facility] Comment on above: Performed By: #### U TARIK, CMP, T7, PSASC, TSH, LIPID #### [facility] [address] [place] [address] Matias Evelyn Chloride [Moles/Vol] 103 mmol/L Normal 98-107 [facility] Comment on above: Performed By: #### U TARIK, CMP, T7, PSASC, TSH, LIPID #### [facility] [address] [place] [address] Matias Evelyn CO2 [Moles/Vol] 30.0 mmol/L Normal 22.0-30.0 [facility] Comment on above: Performed By: #### U TARIK, CMP, T7, PSASC, TSH, LIPID #### [facility] [address] [address] Matias Evelyn Creatinine [Mass/Vol] 1.20 mg/dL Normal 0.66-1.25 [facility] Comment on above: Performed By: #### U TARIK, CMP, T7, PSASC, TSH, LIPID #### [facility] [address] [address] Matias Evelyn EGFR-AF THAI >60 Normal >=60 [facility] Comment on above: Performed By: #### U TARIK, CMP, T7, PSASC, TSH, LIPID #### [facility] [address] [place] [address] Matias Evelyn EGFR-NON AF THAI >60 Normal >=60 [facility] Comment on above: Performed By: #### U TARIK, CMP, T7, PSASC, TSH, LIPID #### [facility] [address] [place] [address] Matias Evelyn Globulin (S) [Mass/Vol] 3.5 g/dL Normal [facility] Comment on above: Performed By: #### U TARIK, CMP, T7, PSASC, TSH, LIPID #### [facility] [address] [place] [address] Matias Evelyn Glucose [Mass/Vol] 269 mg/dL Critically high 74-106 [facility] Comment on above: Performed By: #### U TARIK, CMP, T7, PSASC, TSH, LIPID #### [facility] [address] [place] [address] Matias Evelyn Potassium [Moles/Vol] 4.3 mmol/L Normal 3.4-5.0 [facility] Comment on above: Performed By: #### U TARIK, CMP, T7, PSASC, TSH, LIPID #### [facility] [address] [place] [address] Matias Evelyn Protein [Mass/Vol] 7.6 g/dL Normal 6.1-8.2 [facility] Comment on above: Performed By: #### U TARIK, CMP, T7, PSASC, TSH, LIPID #### [facility] [address] [address] Matias Evelyn Sodium [Moles/Vol] 141 mmol/L Normal 137-145 [facility] Comment on above: Performed By: #### U TARIK, CMP, T7, PSASC, TSH, LIPID #### [facility] [address] [address] Matias Evelyn Urea nitrogen [Mass/Vol] 17.0 mg/dL Normal 9.0-20.0 [facility] Comment on above: Performed By: #### U TARIK, CMP, T7, PSASC, TSH, LIPID #### [facility] [address] [address] Matias Evelyn Urea nitrogen/Creatini ne [Mass ratio] 14.2 mg/mg Normal [facility] Comment on above: Performed By: #### U TARIK, CMP, T7, PSASC, TSH, LIPID #### [facility] [address] [address] Matias Evelyn TSHon 10-01-2020 TSH 1.574 uIU/mL Normal 0.470-4.68 0 [facility] Comment on above: Performed By: #### P SASC #### [facility] [address] [address] [address] Forrest Lauren TSH RANGE SEE BELOW Normal [facility] Comment on above: Result Comment: <0.3 4 UIU/ml HYPERTHYROID 0.34-5.60 UIU/ml EUTHYROID >5.60 UIU/ml HYPOTHYROID Performed By: #### P SASC #### [facility] [address] [place] [address] Dr. Forrest Lauren URIC ACID SERUMon 10-01-2020 Urate [Mass/Vol] 4.8 mg/dL Normal 3.5-8.5 [facility] Comment on above: Performed By: #### P SASC #### [facility] [address] [place] [address] Dr. Forrest Lauren Cardiovascular Lab Reporton 08-03-2017 Cardiovascular Lab Report [id number] Physician: Jerod Miller M.D.Medicine Service Date: 2017Division of Birthdate: 6Cardiology [facility], [place] [address]Qukdk Fax Cardiovascular Laboratory ReportINDICATION: Hoang Tran is [...] the right internal jugular vein and a 6-Nigerian x 11cm sheath was placed. A 6-Nigerian Griffith catheter was used for right heartcatheterization with measurement of pressures and calculation of cardiacoutput using the estimated Luke method. Griffith catheter was removed.Using ultrasound guidance and micropuncture technique, access was obtainedin the left radial artery and a 6-Nigerian x 11 cm Hydrophilic sheath wasadvanced. Verapamil [...] 08/02/2017/02:42 P/Jerod Manuel M.D.Date Trans: 08/03/2017 11:29 A/Get_JN:[id number]: Yfn Mata D.O. [address] [place] [address] Normal [facility] Vital Signs Date Time Vital Sign Value Performing Clinician Jose fairchild 01-21-2024 11:44-0400 Blood Pressure Location [facility] 01-21-2024 11:44-0400 Diastolic blood pressure 72 mm[Hg] [facility] 01-21-2024 11:44-0400 Heart rate 70 /min [facility] 01-21-2024 11:44-0400 Respiratory rate 16 /min [facility] 01-21-2024 11:37-8369 Systolic blood pressure 108 mm[Hg] [facility] Encounters Encounter Date Encounter Type Care Provider Facility Start: 06-09-2024 ambulatory [facility] Facili [facility] Start: 02-25-2024 End: 02-25-2024 ambulatory [facility] Start: 02-11-2024 End: 02-11-2024 ambulatory [facility] Facility:[id number] Start: 01-21-2024 End: 01-21-2024 ambulatory [facility] POP Facility:[facility] Start: 01-21-2024 End: 01-21-2024 Patient encounter procedure [facility] Start: 09-12-2023 ambulatory [facility] Facility :[facility] Start: 08-26-2021 End: 08-26-2021 ambulatory AILIN BAKER Facility:[facility] Start: 02-23-2021 ambulatory AILIN BAKER Facility:[facility] Start: 12-06-2020 End: 12-07-2020 ambulatory ILAN TODD Facility:[facility] Start: 10-07-2020 Encounter for genera l adult medical examination without abnormal findings AILIN BAKER [facility] Start: 10-01-2020 End: 10-02-2020 ambulatory AILIN BAKER Facility:[facility] Start: 10-01-2020 End: 10-02-2020 Encounter for general adult medical examination without abnormal findings AILIN BAKER Facility:[facility] Start: 2017 End: 08-03-2017 Ambulatory PROVIDER UNKNOWN Facility:[facility] Start: 07-24-2017 End: 07-25-2017 Ambulatory DEFAULT PHYSICIAN Facility:[facility] Start: 07-19-2017 End: 07-20-2017 Ambulatory DEFAULT PHYSICIAN Facility:[facility] Start: 06-18-2017 End: 06-19-2017 Ambulatory DEFAULT PHYSICIAN Facility:[facility] Procedures Date Procedure Procedure Detail Performing Clinician Start: 08-26-2021 PSA screening AILIN KAHN Comment on above: Performed By: #### P SASC #### [facility] [address] [place], [place] [address] Dr. Forrest Lauren Start: 10-01-2020 PSA screening AILIN KHAN Comment on above: Performed By: #### U TARIK, CMP, T7, PSASC, TSH, LIPID #### [facility] [address] [place], [place] [address] Matias Rivas Start: 08-06-2013 Colonoscopy [facility] CARISSA ADAMSJhonatan Start: 08-06-2004 Neoplasm of brain (disorder) [facility] Back structure, excl uding neck (body structure) [facility] Tonsillectomy [facility] Payers Date Payer Category Payer Medicare [id number] 1958 [facility] [id number] 1958 Medicare [id number] 1958 Self-pay 1955 Unknown [id number] 2.16.84 [id number] 1955 Unknown [id number] 2.16.84 [id number] 1956 Unknown [id number] 2.16.84 [id number] 1956 Unknown [id number] 2.16.84 [id number] 1956 Unknown [id number] 2.16.8 [id number] 1955 Unknown [id number] 2.16.8 [id number] 1956 Unknown [id number] 2.16.8 [id number] Unknown Social History Date Type Detail Facility Start: 01-21-2024 Tobacco smoking status Never s moked tobacco (finding) [facility] Tobacco smoking status Never [facility] Sex Assigned At Male [facility] Functional Status Date Assessment Result Facility 01-21-2024 Functional Status N/A [facility] Progress note 02-25-2024 Note Date & Type Note Facility 02-25-2024 Note [facility] Subjective Hoang Tran is a 68 [...] Has not had any cardiac testing since 2017. He gets very lightheaded and dizzy. States [...] platelets 256, potassium (more content not included)... [facility] 01-21-2024 Note Date [...] male new pt referred by Ailin [facility] due to LUTS. 1. BPH with obstruction/lower [...] neoplasm of prostat (more content not included)... [facility] Comment on above: Result Comment: Elec tronically [...] urethra. Follow these instructions at home: Take wido-hyn-rgvtcew and prescription medicines only as told by [...] provider. Document Revised: 02/08/2022 Document Reviewed: 02/08/2022 [employer] Patient Education 2022 [employer]. Follow Up Care 09/13/2023 09:26:56 With:DONN ELLIS, Moody Aranda, URL Address: [facility] [address] , [place] [address]- When: Unknown [facility] Evaluation + Plan note Note Date & Type Note Facility Evaluation + Plan note No data available for this section [facility] Progress note Note Date & Type Note Facility Progress note No data available for this section [facility] Summary Purpose Family History No Family [...] and content) DATE CREATED AUTHOR 01/29/2018 [facility] DATE CREATED AUTHOR AUTHOR'S ORGANIZ ATION 09/01/2021 [facility] DATE CREATED AUTHOR AUTHOR'S ORGANIZ ATION 02/27/2024 [facility] DATE CREATED AUTHOR AUTHOR'S ORGANIZ ATION 03/12/2024 [facility] Patient Care team informatio n (unrecognized section and content) Personnel Name: AILIN GREEN CNP Address: Address: [address] [place], [place] [address] FOR RECORDS PERTAINING TO PATIENTS WHO ARE [...] BE BASED ON THE PRIMARY CLINICAL RECORDS. [facility]. provides no warranty or guarantee of the accuracy or completeness of information in this document.
[2024-03-22 10:59] LABS: Basophils Absolute Auto 0.1 10^3/uL (0.0-0.1); Basophils Percent Auto 0.6 % (0.2-2.0); Eosinophils Absolute Auto 0.1 10^3/uL (0.0-0.7); Eosinophils Percent Auto 0.5 % (0.9-7.0); Hematocrit 40.9 % (42.0-54.0); Hemoglobin 12.8 g/dL (14.0-18.0); Immature Granulocytes Abs Auto 0.06 10^3/uL (0.00-0.03); Immature Granulocytes Pct Auto 0.6 % (0.0-0.5); Lymphocytes Absolute Auto 1.4 10^3/uL (1.2-3.8); Lymphocytes Percent Auto 14.5 % (20.5-60.0); Mean Corpuscular HGB Conc 31.3 g/dL (29.9-35.2); Mean Corpuscular Hemoglobin 25.2 pg (25.9-34.0); Mean Corpuscular Volume 80.5 fL (80.0-94.0); Mean Platelet Volume 9.3 fL (9.5-13.5); Monocytes Absolute Auto 1.1 10^3/uL (0.3-0.8); Monocytes Percent Auto 11.6 % (1.7-12.0); Neutrophils Absolute Auto 6.9 10^3/uL (1.4-6.5); Neutrophils Percent Auto 72.2 % (43.0-75.0); Platelet Count 355 10^3/uL (150-450); Red Blood Count 5.08 10^6/uL (4.70-6.10); Red Cell Distribution Width 16.2 % (11.0-15.0); White Blood Count 9.6 10^3/uL (4.0-11.0)
[2024-03-22 11:17] LABS: Estimated Average Glucose 303 mg/dL; Glycohemoglobin A1C 12.2 % (4.5-6.2)
[2024-03-22 11:48] LABS: Prostate Specific Antigen Scrn 2.44 ng/mL (<=4.00)
[2024-03-22 11:59] LABS: Alanine Aminotransferase 80 U/L (16-63); Albumin Globulin Ratio 0.4; Albumin Level 2.4 g/dL (3.4-5.0); Alkaline Phosphatase 128 U/L (46-116); Anion Gap 13.4; Aspartate Amino Transferase 40 U/L (15-37); BUN Creatinine Ratio 12.1; Bilirubin Total 0.8 mg/dL (0.2-1.0); Calcium 9.5 mg/dL (8.5-10.1); Carbon Dioxide 30.2 mmol/L (21.0-32.0); Chloride 94 mmol/L (98-107); Cholesterol 86 mg/dL (<=200); Estimated GFR (African America >60 (>=60); Estimated GFR (Non-African Ame >60 (>=60); Free T3 1.25 pg/mL (2.18-3.98); Globulin 5.6 g/dL; Glucose 339 mg/dL (74-106); HDL Cholesterol 42 mg/dL (40-60); LDL Cholesterol Calculated 25.8 mg/dL; Potassium 4.6 mmol/L (3.5-5.1); Sodium 133 mmol/L (136-145); Thyroid Stimulating Hormone 1.084 uIU/mL (0.358-3.740); Triglycerides 91 mg/dL (<=150); Uric Acid 3.1 mg/dL (3.5-7.2); VLDL CHOLESTEROL 18.2 mg/dL
[2024-03-23 12:13] LABS: Insulin 6.7 uIU/mL (2.6-24.9)
== END 2024-03-22 10:17 | disposition home or self-care (01) ==
LOC: LAB 10:17
PROVIDERS: PCP Nurse Practitioner Family; Visit Provider Nurse Practitioner Family
DX: R63.4 Abnormal weight loss (principal); E78.5 Hyperlipidemia, unspecified; R53.83 Other fatigue; R73.09 Other abnormal glucose; I10 Essential (primary) hypertension; M10.9 Gout, unspecified; Z12.12 Encounter for screening for malignant neoplasm of rectum; E03.9 Hypothyroidism, unspecified; Z12.5 Encounter for screening for malignant neoplasm of prostate
CPT/HCPCS: 36415; 80053; 80061; 83036; 83525; 84436; 84443; 84481; 84550; 85025; G0103

== ENCOUNTER 2024-03-23 15:00 | Outpatient (REF) | payer MEDICARE, SELFPAY ==
--- OUTSIDE RECORDS SUMMARY | 2024-03-24 07:05 | XMS_ITS | CCD ---
Author Organization [facility] Care Team Providers Care Manager Technical Sales Name Role Phone PHYSICIAN, DEFAULT Unavailable Unavailable [...] Propensity to adverse reactions (disorder) 7 [facility] Rep[facility] (1 source) empagliflozin; 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: [EMPAGLIFLOZIN] Drug Allergy 4 [facility] (1 source) No Known Medication Allergies; 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: [No Known Medication Allergies] Propensity to adverse reactions (disorder) [facility] Repository Medications Current Medications Medication [...] completed, # 2 tab(s), Refills(s) 0, Pharmacy: [facility], 187, cm, 01/21/24 11:48:00 EDT, Height/Length [...] / UNK(Unknown) Onset: 2017 Unclassified (1 source) 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; 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: [PRISON (CURRENT) USE OF ORAL 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 DRUGS] Onset: 2017 Unclassified (1 source) Patient encounter status 01-21-2024 Viral infection (1 source) COVID-19; 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: [COVID-19] Onset: 12-08-2020 Past or Other Problems Problem Classification Problem Date Documented Da te Episodic/Chronic Other aftercare (1 source) [facility] (current) use of aspirin; 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: [PRISON (CURRENT) USE OF ASPIRIN] Onset: 2017 Episodic Other lower respiratory disease (3 sources) Cough; 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: [COUGH] Onset: 12-06-2020 Episodic Results Test Name Value Interpretation Reference Range Facility Office Visiton 02-25-2024 Follow-up visit [id number] Allen Tran 1955 M Date Provider Department Center 02/25/2024 JEROD BANKS Family History Problem Relation Age of Onset Coronary artery disease Mother Family Status - Relation Status Age at Mother Level of Service:46991 [place] OFFICE/OUTPATIENT NEW MODERATE MDM 45 MINUTES Normal [facility] Insurance Correspondenceon 0 01-30-2024 Insurance Correspondence [id number]#1.00TIFF [facility] Consent for Procedure/Surger yon 01-22-2024 Consent for Procedure/Surgery [id number]#1.00TIFF [facility] Physician Referralon 024 Physician Referral [id number]#1.00TIFF [facility] Screenson 01-22-2024 Screens [id number]#1.00TIFF [facility] Ambulatory Visit Summaryon 0 01-21-2024 Ambulatory Visit Summary HOANG TRAN :1955 Visit Date:01/21/2024 Ambulatory Visit Instructions Your Diagnosis BPH with obstruction/lower urinary tract symptoms OAB (overactive bladder) Glucosuria Screening PSA (prostate specific antigen) Your Care Team Attending Physician - Moody POP MD Primary Care Physician - AILIN GREEN CNP Referring Physician - AILNI GREEN CNP This Is Your Medications List [...] [facility] [address], [place] [address]- Medications What When Instructions Unchanged amlodipine (amLODIPine [...] urine (ur (more content not included)... Normal [facility] Patient Educationon 01-21-20 Patient Education [...] Follow these instructions at home: ? Take kcee-kpo-idfphss and prescription medicines only as told by [...] the medicine (more content not included)... Normal [facility] INSULINon 08-27-2021 Insulin 19.2 uIU/mL Normal 2.6-24.9 [facility] Comment on above: Performed By: #### I NSULIN #### [facility] [address] [place] [address] Dr. Forrest Lauren CBC AUTO DIFFon 08-26-2021 BASO # 0.1 103/ul Normal 0.0-0.1 [facility] Comment on above: Performed By: #### P SASC #### [facility] [address] [place] [address] Dr. Forrest Lauren Basophils/100 WBC (Bld) 0.8 % Normal 0.2-2.0 [facility] Comment on above: Performed By: #### P SASC #### [facility] [address] [place] [address] Dr. Forrest Lauren EO # 0.4 103/ul Normal 0.0-0.7 [facility] Comment on above: Performed By: #### P SASC #### [facility] [address] [place] [address] Dr. Forrest Lauren Eosinophils/100 WBC (Bld) 4.8 % Normal 0.9-7.0 [facility] Comment on above: Performed By: #### P SASC #### [facility] [address] [place] [address] Dr. Forrest Lauren Erythrocyte distribution width (RBC) [Ratio] 12.7 % Normal 11.0-15.0 [facility] Comment on above: Performed By: #### P SASC #### [facility] [address] [place] [address] Dr. Forrest Lauren Hematocrit (Bld) [Volume fraction] 48.3 % Normal 42.0-54.0 [facility] Comment on above: Performed By: #### P SASC #### [facility] [address] [place] [address] Dr. Forrest Lauren Hemoglobin (Bld) [Mass/Vol] 16.4 g/dL Normal 14.0-18.0 [facility] Comment on above: Performed By: #### P SASC #### [facility] [address] [place] [address] Dr. Forrest Lauren IG # 0.05 10e3/ul Critically high 0.00-0.03 [facility] Comment on above: Performed By: #### P SASC #### [facility] [address] [place] [address] Dr. Forrest Lauren IG % 0.6 % Critically high 0.0-0.5 [facility] Comment on above: Performed By: #### P SASC #### [facility] [address] [place] [address] Dr. Forrest Lauren LYMPH # 2.0 103/ul Normal 1.2-3.8 [facility] Comment on above: Performed By: #### P SASC #### [facility] [address] [place] [address] Dr. Forrest Lauren Lymphocytes/100 WBC (Bld) 22.6 % Normal 20.5-60.0 [facility] Comment on above: Performed By: #### P SASC #### [facility] [address] [place] [address] Dr. Forrest Lauren MANUAL DIFF REQ NO Normal [facility] Comment on above: Performed By: #### P SASC #### [facility] [address] [address] [address] Forrest Lauren MCH (RBC) [Entitic mass] 29.8 pg Normal 25.9-34.0 [facility] Comment on above: Performed By: #### P SASC #### [facility] [address] [address] [address] Forrest Lauren MCHC (RBC) [Mass/Vol] 34.0 g/dL Normal 29.9-35.2 [facility] Comment on above: Performed By: #### P SASC #### [facility] [address] [place] [address] Dr. Forrest Lauren MCV (RBC) [Entitic vol] 87.8 fL Normal 80.0-94.0 [facility] Comment on above: Performed By: #### P SASC #### [facility] [address] [place] [address] Dr. Forrest Lauren MONO # 0.7 103/ul Normal 0.3-0.8 [facility] Comment on above: Performed By: #### P SASC #### [facility] [address] [place] [address] Dr. Forrest Lauren Monocytes/100 WBC (Bld) 8.0 % Normal 1.7-12.0 [facility] Comment on above: Performed By: #### P SASC #### [facility] [address] [place] [address] Dr. Forrest Lauren NEUT # 5.7 103/ul Normal 1.4-6.5 [facility] Comment on above: Performed By: #### P SASC #### [facility] [address] [place] [address] Dr. Forrest Lauren Neutrophils/100 WBC (Bld) 63.2 % Normal 43.0-75.0 [facility] Comment on above: Performed By: #### P SASC #### [facility] [address] [place] [address] Dr. Forrest Lauren Platelet mean volume (Bld) [Entitic vol] 9.7 fL Normal 9.5-13.5 [facility] Comment on above: Performed By: #### P SASC #### [facility] [address] [place] [address] Dr. Forrest Lauren PLT 242 103/ul Normal 150-450 [facility] Comment on above: Performed By: #### P SASC #### [facility] [address] [address] [address] Forrest Lauren RBC 5.50 106/ul Normal 4.70-6.10 [facility] Comment on above: Performed By: #### P SASC #### [facility] [address] [address] [address] Forrest Lauren WBC 9.0 103/ul Normal 4.0-11.0 [facility] Comment on above: Performed By: #### P SASC #### [facility] [address] [address] [address] Forrest Lauren GLYCOHEMOGLOBIN A1Con 2021 ADA RECOMMENDATION ADA THERAPEUTIC TARGET 6.0 - 7.0 ACTION SUGGESTED > 7.0 Normal [facility] Comment on above: Performed By: #### A 1C #### [facility] [address] [place] [address] Dr. Forrest Lauren Glucose [Mass/Vol] 194 mg/dL Normal [facility] Comment on above: Performed By: #### A 1C #### [facility] [address] [place] [address] Dr. Forrest Lauren HbA1c (Bld) [Mass fraction] 8.4 % Critically high <=6.0 [facility] Comment on above: Performed By: #### A 1C #### [facility] [address] [place] [address] Dr. Forrest Lauren LIPID PROFILEon 08-26-2021 CHOL-HDL RATIO NORM SEE BELOW Normal [facility] Comment on above: Result Comment: 3.3 - 4.4 LOW RISK 4.4 - 7.1 AVERAGE RISK 7.1 - 11.0 MODERATE RISK >11.0 HIGH RISK Performed By: #### P SASC #### [facility] [address] [address] [address] Forrest Lauren Cholesterol [Mass/Vol] 117 mg/dL Normal <=200 [facility] Comment on above: Performed By: #### P SASC #### [facility] [address] [address] [address] Forrest Lauren Cholesterol in HDL [Mass/Vol] 43 mg/dL Normal [facility] Comment on above: Performed By: #### P SASC #### [facility] [address] [address] [address] Forrest Lauren Cholesterol in LDL [Mass/Vol] 45.6 mg/dL Normal [facility] Comment on above: Performed By: #### P SASC #### [facility] [address] [address] [address] Forrest Lauren Cholesterol.total /Cholesterol in HDL [Mass ratio] 2.7 {ratio} Normal [facility] Comment on above: Performed By: #### P SASC #### [facility] [address] [address] [address] Forrest Lauren HDL NORMAL > or = 60 mg/dl - LO W CARDIOVASCULAR RISK <40 mg/dl - HIGH CARDIOVASCULAR RISK Normal [facility] Comment on above: Performed By: #### P SASC #### [facility] [address] [address] [address] Forrest Lauren LDL CALC NORMAL SEE BELOW Normal [facility] Comment on above: Result Comment: <100 mg/dl OPTIMAL 100 - 129 mg/dl NEAR OR ABOVE OPTIMAL 130 - 159 mg/dl BORDERLINE HIGH 160 - 189 mg/dl HIGH >190 mg/dl VERY HIGH Performed By: #### P SASC #### [facility] [address] [address] [address] Forrest Lauren Triglyceride [Mass/Vol] 142 mg/dL Normal <=150 [facility] Comment on above: Performed By: #### P SASC #### [facility] [address] [address] [address] Forrest Lauren VLDL CALC 28.4 mg/dL Normal [facility] Comment on above: Performed By: #### P SASC #### [facility] [address] [address] [address] Forrest Lauren PROF 14(COMP METB)on 022 Albumin [Mass/Vol] 4.1 g/dL Normal 3.5-5.0 [facility] Comment on above: Performed By: #### P SASC #### [facility] [address] [address] [address] Forrest Lauren Albumin/Globulin [Mass ratio] 1.2 {ratio} Normal [facility] Comment on above: Performed By: #### P SASC #### [facility] [address] [address] [address] Forrest Lauren ALP [Catalytic activity/Vol] 82 U/L Normal 38-126 [facility] Comment on above: Performed By: #### P SASC #### [facility] [address] [address] [address] Forrest Lauren ALT [Catalytic activity/Vol] 38 U/L Normal 21-72 [facility] Comment on above: Performed By: #### P SASC #### [facility] [address] [address] [address] Forrest Lauren Anion gap [Moles/Vol] 12.7 mmol/L Normal [facility] Comment on above: Performed By: #### P SASC #### [facility] [address] [address] [address] Forrest Lauren AST [Catalytic activity/Vol] 18 U/L Normal 17-59 [facility] Comment on above: Performed By: #### P SASC #### [facility] [address] [address] [address] Forrest Lauren Bilirubin [Mass/Vol] 1.2 mg/dL Normal 0.2-1.3 [facility] Comment on above: Performed By: #### P SASC #### [facility] [address] [place] [address] Dr. Forrest Lauren Calcium [Mass/Vol] 9.7 mg/dL Normal 8.4-10.2 [facility] Comment on above: Performed By: #### P SASC #### [facility] [address] [address] [address] Forrest Lauren Chloride [Moles/Vol] 102 mmol/L Normal 98-107 [facility] Comment on above: Performed By: #### P SASC #### [facility] [address] [address] [address] Forrest Lauren CO2 [Moles/Vol] 30.6 mmol/L Critically high 22.0-30.0 [facility] Comment on above: Performed By: #### P SASC #### [facility] [address] [address] [address] Forrest Lauren Creatinine [Mass/Vol] 1.09 mg/dL Normal 0.66-1.25 [facility] Comment on above: Performed By: #### P SASC #### [facility] [address] [address] [address] Forrest Lauren EGFR-AF [place]THER[place] >60 Normal >=60 [facility] Comment on above: Performed By: #### P SASC #### [facility] [address] [address] [address] Forrest Lauren EGFR-NON AF [place] >60 Normal >=60 [facility] Comment on above: Performed By: #### P SASC #### [facility] [address] [address] [address] Forrest Lauren Globulin (S) [Mass/Vol] 3.4 g/dL Normal [facility] Comment on above: Performed By: #### P SASC #### [facility] [address] [address] [address] Forrest Lauren Glucose [Mass/Vol] 238 mg/dL Critically high 74-106 [facility] Comment on above: Performed By: #### P SASC #### [facility] [address] [address] [address] Forrest Lauren Potassium [Moles/Vol] 4.3 mmol/L Normal 3.4-5.0 [facility] Comment on above: Performed By: #### P SASC #### [facility] [address] [address] [address] Forrest Lauren Protein [Mass/Vol] 7.5 g/dL Normal 6.1-8.2 [facility] Comment on above: Performed By: #### P SASC #### [facility] [address] [address] [address] Forrest Lauren Sodium [Moles/Vol] 141 mmol/L Normal 137-145 [facility] Comment on above: Performed By: #### P SASC #### [facility] [address] [address] [address] Forrest Lauren Urea nitrogen [Mass/Vol] 20.0 mg/dL Normal 9.0-20.0 [facility] Comment on above: Performed By: #### P SASC #### [facility] [address] [address] [address] Forrest Lauren Urea nitrogen/Creatini ne [Mass ratio] 18.3 mg/mg Normal [facility] Comment on above: Performed By: #### P SASC #### [facility] [address] [address] [address] Forrest Lauren URIC ACID SERUMon 08-26-2021 Urate [Mass/Vol] 4.8 mg/dL Normal 3.5-8.5 [facility] Comment on above: Performed By: #### P SASC #### [facility] [address] [address] [address] Forrest Lauren Covid-19 PCR ([facility])on Sample Type Test performed using RT-PCR from a nasopharyngeal collected specimen. Normal [facility] Comment on above: Performed By: #### P SASC #### [facility] [address] [address] [address] Forrest Lauren SARS-CoV-2 (COVID-19) RNA MERA+probe Ql (Unsp spec) Detected Abnormal NOT DETECTED [facility] Comment on above: Result Comment: This test is not yet approved or cleared by the [place] FDA. When there are no FDA-approved or cleared tests available, and other criteria are met, FDA can make tests available under an emergency access mechanism called an Emergency Use Authorization (EUA). The EUA for this test is supported by the [employer] of Health and Human Service's (HHS's) declaration [...] used). Performed By: #### P SASC #### [facility] [address] [place] [address] Dr. Forrest Lauren POINT OF CARE GLUCOSEon Glucose [Mass/Vol] 255 mg/dL Critically high 74-106 [facility] Comment on above: Performed By: #### P OCGLUC #### [facility] [address] [place] [address] Matias Rivas XR CHEST 1 Von 12-07-2020 [...] AMARIS WALKER Date: 2020-12-06 22:04 Normal [facility] INSULINon 10-02-2020 Insulin 16.9 uIU/mL Normal 2.6-24.9 [facility] Comment on above: Performed By: #### P SASC #### [facility] [address] [place] [address] Dr. Forrest Lauren CBC AUTO DIFFon 10-01-2020 BASO # 0.1 103/ul Normal 0.0-0.1 [facility] Comment on above: Performed By: #### C BC #### [facility] [address] [place] [address] Matias Rivas Basophils/100 WBC (Bld) 0.6 % Normal 0.2-2.0 [facility] Comment on above: Performed By: #### C BC #### [facility] [address] [place] [address] Matias Evelyn EO # 0.4 103/ul Normal 0.0-0.7 [facility] Comment on above: Performed By: #### C BC #### [facility] [address] [place] [address] Matias Evelyn Eosinophils/100 WBC (Bld) 4.2 % Normal 0.9-7.0 [facility] Comment on above: Performed By: #### C BC #### [facility] [address] [place] [address] Matias Evelyn Erythrocyte distribution width (RBC) [Ratio] 13.1 % Normal 11.0-15.0 [facility] Comment on above: Performed By: #### C BC #### [facility] [address] [place] [address] Matias Evelyn Hematocrit (Bld) [Volume fraction] 50.2 % Normal 42.0-54.0 [facility] Comment on above: Performed By: #### C BC #### [facility] [address] [place] [address] Matias Evelyn Hemoglobin (Bld) [Mass/Vol] 16.6 g/dL Normal 14.0-18.0 [facility] Comment on above: Performed By: #### C BC #### [facility] [address] [place] [address] Matias Evelyn IG # 0.05 10e3/ul Critically high 0.00-0.03 [facility] Comment on above: Performed By: #### C BC #### [facility] [address] [place] [address] Matias Eevlyn IG % 0.6 % Critically high 0.0-0.5 [facility] Comment on above: Performed By: #### C BC #### [facility] [address] [place] [address] Matias Evelyn LYMPH # 1.9 103/ul Normal 1.2-3.8 [facility] Comment on above: Performed By: #### C BC #### [facility] [address] [place], [place] [id number] Matias Evelyn Lymphocytes/100 WBC (Bld) 22.2 % Normal 20.5-60.0 [facility] Comment on above: Performed By: #### C BC #### [facility] [address] [place], [place] [id number] Matias Evelyn MANUAL DIFF REQ NO Normal [facility] Comment on above: Performed By: #### C BC #### [facility] [address] [place], [place] [id number] Matias Evelyn MCH (RBC) [Entitic mass] 29.4 pg Normal 25.9-34.0 [facility] Comment on above: Performed By: #### C BC #### [facility] [address] [place] [address] Matias Evelyn MCHC (RBC) [Mass/Vol] 33.1 g/dL Normal 29.9-35.2 [facility] Comment on above: Performed By: #### C BC #### [facility] [address] [place], [place] [id number] Matias Evelyn MCV (RBC) [Entitic vol] 88.8 fL Normal 80.0-94.0 [facility] Comment on above: Performed By: #### C BC #### [facility] [address] [place], [place] [id number] Matias Evelyn MONO # 0.7 103/ul Normal 0.3-0.8 [facility] Comment on above: Performed By: #### C BC #### [facility] [address] [place], [place] [id number] Matias Evelyn Monocytes/100 WBC (Bld) 7.7 % Normal 1.7-12.0 [facility] Comment on above: Performed By: #### C BC #### [facility] [address] [place], [place] [id number] Matias Evelyn NEUT # 5.7 103/ul Normal 1.4-6.5 [facility] Comment on above: Performed By: #### C BC #### [facility] [address] [place], [place] [address] Matias Rivas Neutrophils/100 WBC (Bld) 64.7 % Normal 43.0-75.0 [facility] Comment on above: Performed By: #### C BC #### [facility] [address] [place], [place] [address] Matias Rivas Platelet mean volume (Bld) [Entitic vol] 10.4 fL Normal 9.5-13.5 [facility] Comment on above: Performed By: #### C BC #### [facility] [address] [place], [place] [address] Matiaswali Rodasen PLT 243 103/ul Normal 150-450 [facility] Comment on above: Performed By: #### C BC #### [facility] [address] [place], [place] [id number] Matias Evelyn RBC 5.65 106/ul Normal 4.70-6.10 [facility] Comment on above: Performed By: #### C BC #### [facility] [address] [place], [place] [id number] Matias Rivas WBC 8.7 103/ul Normal 4.0-11.0 [facility] Comment on above: Performed By: #### C BC #### [facility] [address] [place], [place] [id number] Matias Rivas FREE THYROXINE INDEX T7on FTI 2.11 Normal [facility] Comment on above: Performed By: #### U TARIK, CMP, T7, PSASC, TSH, LIPID #### [facility] [address] [place], [place] [id number] Matias Rivas T3U 34.0 % Normal 23.5-40.5 [facility] Comment on above: Performed By: #### U TARIK, CMP, T7, PSASC, TSH, LIPID #### [facility] [address] [place], [place] [id number] Matias Rivas T4 [Mass/Vol] 6.20 ug/dL Normal 5.53-11.00 [facility] Comment on above: Performed By: #### U TARIK, CMP, T7, PSASC, TSH, LIPID #### [facility] [address] [place], [place] [address] Matias Rivas GLYCOHEMOGLOBIN A1Con 2020 ADA RECOMMENDATION ADA THERAPEUTIC TARGET 6.0 - 7.0 ACTION SUGGESTED > 7.0 Normal [facility] Comment on above: Performed By: #### A 1C #### [facility] [address] [address] Matias Rivas Glucose [Mass/Vol] 266 mg/dL Normal [facility] Comment on above: Performed By: #### A 1C #### [facility] [address] [address] Matias Rivas HbA1c (Bld) [Mass fraction] 10.9 % Critically high <=6.0 [facility] Comment on above: Performed By: #### A 1C #### [facility] [address] [place] [address] Matias Rivas LIPID PROFILEon 10-01-2020 CHOL-HDL RATIO NORM SEE BELOW Normal [facility] Comment on above: Result Comment: 3.3 - 4.4 LOW RISK 4.4 - 7.1 AVERAGE RISK 7.1 - 11.0 MODERATE RISK >11.0 HIGH RISK Performed By: #### P SASC #### [facility] [address] [place] [address] Dr. Forrest Lauren Cholesterol [Mass/Vol] 110 mg/dL Normal <=200 [facility] Comment on above: Performed By: #### P SASC #### [facility] [address] [address] [address] Forrest Lauren Cholesterol in HDL [Mass/Vol] 36 mg/dL Normal [facility] Comment on above: Performed By: #### P SASC #### [facility] [address] [address] [address] Forrest Lauren Cholesterol in LDL [Mass/Vol] 36.2 mg/dL Normal [facility] Comment on above: Performed By: #### P SASC #### [facility] [address] [address] [address] Forrest Lauren Cholesterol.total /Cholesterol in HDL [Mass ratio] 3.1 {ratio} Normal [facility] Comment on above: Performed By: #### P SASC #### [facility] [address] [address] [address] Forrest Lauren HDL NORMAL > or = 60 mg/dl - LO W CARDIOVASCULAR RISK <40 mg/dl - HIGH CARDIOVASCULAR RISK Normal [facility] Comment on above: Performed By: #### P SASC #### [facility] [address] [address] [address] Forrest Lauren LDL CALC NORMAL SEE BELOW Normal [facility] Comment on above: Result Comment: <100 mg/dl OPTIMAL 100 - 129 mg/dl NEAR OR ABOVE OPTIMAL 130 - 159 mg/dl BORDERLINE HIGH 160 - 189 mg/dl HIGH >190 mg/dl VERY HIGH Performed By: #### P SASC #### [facility] [address] [place] [address] Dr. Forrest Lauren Triglyceride [Mass/Vol] 189 mg/dL Critically high <=150 [facility] Comment on above: Performed By: #### P SASC #### [facility] [address] [place] [address] Dr. Forrest Lauren VLDL CALC 37.8 mg/dL Normal [facility] Comment on above: Performed By: #### P SASC #### [facility] [address] [place] [address] Dr. Forrest Lauren PROF 14(COMP METB)on 021 Albumin [Mass/Vol] 4.1 g/dL Normal 3.5-5.0 [facility] Comment on above: Performed By: #### U TARIK, CMP, T7, PSASC, TSH, LIPID #### [facility] [address] [place] [address] Matias Rivas Albumin/Globulin [Mass ratio] 1.2 {ratio} Normal [facility] Comment on above: Performed By: #### U TARIK, CMP, T7, PSASC, TSH, LIPID #### [facility] [address] [address] Matias Evelyn ALP [Catalytic activity/Vol] 80 U/L Normal 38-126 [facility] Comment on above: Performed By: #### U TARIK, CMP, T7, PSASC, TSH, LIPID #### [facility] [address] [address] Matias Evelyn ALT [Catalytic activity/Vol] 42 U/L Normal 21-72 [facility] Comment on above: Performed By: #### U TARIK, CMP, T7, PSASC, TSH, LIPID #### [facility] [address] [address] Matias Evelyn Anion gap [Moles/Vol] 12.3 mmol/L Normal [facility] Comment on above: Performed By: #### U TARIK, CMP, T7, PSASC, TSH, LIPID #### [facility] [address] [place] [address] Matias Evelyn AST [Catalytic activity/Vol] 24 U/L Normal 17-59 [facility] Comment on above: Performed By: #### U TARIK, CMP, T7, PSASC, TSH, LIPID #### [facility] [address] [place] [address] Matias Evelyn Bilirubin [Mass/Vol] 1.3 mg/dL Normal 0.2-1.3 [facility] Comment on above: Performed By: #### U TARIK, CMP, T7, PSASC, TSH, LIPID #### [facility] [address] [place] [address] Matias Evelyn Calcium [Mass/Vol] 9.3 mg/dL Normal 8.4-10.2 [facility] Comment on above: Performed By: #### U TARIK, CMP, T7, PSASC, TSH, LIPID #### [facility] [address] [place] [address] Matias Evelyn Chloride [Moles/Vol] 103 mmol/L Normal 98-107 [facility] Comment on above: Performed By: #### U TARIK, CMP, T7, PSASC, TSH, LIPID #### [facility] [address] [place] [address] Matias Evelyn CO2 [Moles/Vol] 30.0 mmol/L Normal 22.0-30.0 [facility] Comment on above: Performed By: #### U TARIK, CMP, T7, PSASC, TSH, LIPID #### [facility] [address] [address] Matias Evelyn Creatinine [Mass/Vol] 1.20 mg/dL Normal 0.66-1.25 [facility] Comment on above: Performed By: #### U TARIK, CMP, T7, PSASC, TSH, LIPID #### [facility] [address] [address] Matias Evelyn EGFR-AF [place] >60 Normal >=60 [facility] Comment on above: Performed By: #### U TARIK, CMP, T7, PSASC, TSH, LIPID #### [facility] [address] [place] [address] Matias Evelyn EGFR-NON AF [place] >60 Normal >=60 [facility] Comment on above: Performed By: #### U TARIK, CMP, T7, PSASC, TSH, LIPID #### [facility] [address] [place] [address] Matias Evelyn Globulin (S) [Mass/Vol] 3.5 g/dL Normal [facility] Comment on above: Performed By: #### U TARIK, CMP, T7, PSASC, TSH, LIPID #### [facility] [address] [place] [address] Matias Evelyn Glucose [Mass/Vol] 269 mg/dL Critically high 74-106 [facility] Comment on above: Performed By: #### U TARIK, CMP, T7, PSASC, TSH, LIPID #### [facility] [address] [place] [address] Matias Evelyn Potassium [Moles/Vol] 4.3 mmol/L Normal 3.4-5.0 [facility] Comment on above: Performed By: #### U TARIK, CMP, T7, PSASC, TSH, LIPID #### [facility] [address] [place] [address] Matias Evelyn Protein [Mass/Vol] 7.6 g/dL Normal 6.1-8.2 [facility] Comment on above: Performed By: #### U TRAIK, CMP, T7, PSASC, TSH, LIPID #### [facility] [address] [address] Matias Evelyn Sodium [Moles/Vol] 141 mmol/L Normal 137-145 [facility] Comment on above: Performed By: #### U TARIK, CMP, T7, PSASC, TSH, LIPID #### [facility] [address] [address] Matias Evelyn Urea nitrogen [Mass/Vol] 17.0 mg/dL Normal 9.0-20.0 [facility] Comment on above: Performed By: #### U TARIK, CMP, T7, PSASC, TSH, LIPID #### [facility] [address] [address] Matias Evelyn Urea nitrogen/Creatini ne [Mass ratio] 14.2 mg/mg Normal [facility] Comment on above: Performed By: #### U TARIK, CMP, T7, PSASC, TSH, LIPID #### [facility] [address] [address] Matias Evelyn TSHon 10-01-2020 TSH 1.574 uIU/mL Normal 0.470-4.68 0 [facility] Comment on above: Performed By: #### P SASC #### [facility] [address] [address] [address] Forrest Lauren TSH RANGE SEE BELOW Normal [facility] Comment on above: Result Comment: <0.3 4 UIU/ml HYPERTHYROID 0.34-5.60 UIU/ml EUTHYROID >5.60 UIU/ml HYPOTHYROID Performed By: #### P SASC #### [facility] [address] [place] [address] Dr. Forrest Lauren URIC ACID SERUMon 10-01-2020 Urate [Mass/Vol] 4.8 mg/dL Normal 3.5-8.5 [facility] Comment on above: Performed By: #### P SASC #### [facility] [address] [place] [address] Dr. Forrest Lauren Cardiovascular Lab Reporton 08-03-2017 Cardiovascular Lab Report [id number] Physician: Jerod Miller M.D.Medicine Service Date: 2017Division of Birthdate: 6Cardiology [facility], [place] [address]Qetyl Fax Cardiovascular Laboratory ReportINDICATION: Hoang Tran is [...] the right internal jugular vein and a 6-Mongolian x 11cm sheath was placed. A 6-Mongolian Griffith catheter was used for right heartcatheterization with measurement of pressures and calculation of cardiacoutput using the estimated Luke method. Griffith catheter was removed.Using ultrasound guidance and micropuncture technique, access was obtainedin the left radial artery and a 6-Mongolian x 11 cm Hydrophilic sheath wasadvanced. Verapamil [...] 08/02/2017/02:42 P/Jerod Manuel M.D.Date Trans: 08/03/2017 11:29 A/Get_JN:[id number]: Yfn Mata D.O. [address] [place] [address] Normal [facility] Vital Signs Date Time Vital Sign Value Performing Clinician Jose fairchild 01-21-2024 11:44-0400 Blood Pressure Location [facility] 01-21-2024 11:44-0400 Diastolic blood pressure 72 mm[Hg] [facility] 01-21-2024 11:44-0400 Heart rate 70 /min [facility] 01-21-2024 11:44-0400 Respiratory rate 16 /min [facility] 01-21-2024 11:72-1952 Systolic blood pressure 108 mm[Hg] [facility] Encounters Encounter Date Encounter Type Care Provider Facility Start: 06-09-2024 ambulatory [facility] Facili ty:[facility] [place] Start: 02-25-2024 End: 02-25-2024 ambulatory [facility] Start: 02-11-2024 End: 02-11-2024 ambulatory Moody POP Facility:[id number] Start: 01-21-2024 End: 01-21-2024 ambulatory Moody POP Facility:[facility] [place] Start: 01-21-2024 End: 01-21-2024 Patient encounter procedure [facility] Start: 09-12-2023 ambulatory Moody POP Facility :[facility] [place] Start: 08-26-2021 End: 08-26-2021 ambulatory AILIN BAKER Facility:[facility] Start: 02-23-2021 ambulatory AILIN BAKER Facility:[facility] Start: 12-06-2020 End: 12-07-2020 ambulatory ILAN TODD Facility:[facility] Start: 10-07-2020 Encounter for genera l adult medical examination without abnormal findings AILIN BAKER [facility] Start: 10-01-2020 End: 10-02-2020 ambulatory AILIN BAKER Facility:[facility] Start: 10-01-2020 End: 10-02-2020 Encounter for general adult medical examination without abnormal findings AILIN BAKER Facility:[facility] Start: 2017 End: 08-03-2017 Ambulatory PROVIDER UNKNOWN Facility:[facility] Start: 07-24-2017 End: 07-25-2017 Ambulatory DEFAULT PHYSICIAN Facility:[facility] Start: 07-19-2017 End: 07-20-2017 Ambulatory DEFAULT PHYSICIAN Facility:[facility] Start: 06-18-2017 End: 06-19-2017 Ambulatory DEFAULT PHYSICIAN Facility:[facility] Procedures Date Procedure Procedure Detail Performing Clinician Start: 08-26-2021 PSA screening AILIN KHAN Comment on above: Performed By: #### P SASC #### [facility] [address] [place], [place] [address] Dr. Forrest Lauren Start: 10-01-2020 PSA screening AILIN KHAN Comment on above: Performed By: #### U TARIK, CMP, T7, PSASC, TSH, LIPID #### [facility] [address] [place], [place] [address] Matias Rivas Start: 08-06-2013 Colonoscopy [facility] CARISSA ADAMSJhonatan Start: 08-06-2004 Neoplasm of brain (disorder) [facility] Back structure, excl uding neck (body structure) [facility] Tonsillectomy [facility] Payers Date Payer Category Payer Medicare [id number] 1958 [facility] [id number] 1958 Medicare [id number] 1958 Self-pay 1955 Unknown [id number] 2.16.84 [id number] 1955 Unknown [id number] 2.16.84 [id number] 1955 Unknown [id number] 2.16.84 [id number] 1955 Unknown [id number] 2.16.84 [id number] 1955 Unknown [id number] 2.16.8 [id number] 1955 Unknown [id number] 2.16.8 [id number] 1955 Unknown [id number] 2.16.8 [id number] Unknown Social History Date Type Detail Facility Start: 01-21-2024 Tobacco smoking status Never s moked tobacco (finding) [facility] Tobacco smoking status Never [facility] Sex Assigned At Male [facility] Functional Status Date Assessment Result Facility 01-21-2024 Functional Status N/A [facility] Progress note 02-25-2024 Note Date & Type Note Facility 02-25-2024 Note [facility] Subjective Hoang Tran is a [...] platelets 256, potassium (more content not included)... [facility] Clinical Note 01-21-2024 Note Date & Type [...] male new pt referred by Ailin Green [facility] due to LUTS. 1. BPH with [...] neoplasm of prostat (more content not included)... [facility] Comment on above: Result Comment: [...] urethra. Follow these instructions at home: Take [id number]-rpj-tcijneg and prescription medicines only as told by [...] provider. Document Revised: 02/08/2022 Document Reviewed: 02/08/2022 [employer] Patient Education 2022 [employer]. Follow Up Care 09/13/2023 09:26:56 With:DONN ELLIS, Moody Aranda, URL Address: [facility] [address] , [place] [address]- When: Unknown [facility] Evaluation + Plan note Note Date & Type Note Facility Evaluation + Plan note No data available for this section [facility] Progress note Note Date & Type Note Facility Progress note No data available for this section [facility] Summary Purpose Family History No Family History [...] and content) DATE CREATED AUTHOR 01/29/2018 [facility] [place] DATE CREATED AUTHOR AUTHOR'S ORGANIZ ATION 09/01/2021 [facility] DATE CREATED AUTHOR AUTHOR'S ORGANIZ ATION 02/27/2024 [facility] DATE CREATED AUTHOR AUTHOR'S ORGANIZ ATION 03/12/2024 [facility] Patient Care team informatio n (unrecognized section and content) Personnel Name: AILIN GREEN CNP Address: Address: [address] [place], [place] [address] FOR RECORDS PERTAINING TO PATIENTS WHO [...] BE BASED ON THE PRIMARY CLINICAL RECORDS. [facility] [employer] [facility]. provides no warranty or guarantee of the accuracy or completeness of information in this document.
[2024-03-24 07:27] LABS: Internal Control Within Normal Limits; Occult Blood Negative
== END 2024-03-23 15:01 | disposition home or self-care (01) ==
LOC: LAB 15:00
PROVIDERS: PCP Nurse Practitioner Family; Visit Provider Nurse Practitioner Family
DX: R63.4 Abnormal weight loss (principal)
CPT/HCPCS: G0328

== ENCOUNTER 2024-03-25 09:14 | Outpatient (OUT) | payer MEDICARE, SELFPAY ==
--- NOTE | 2024-03-25 09:26 | US_ITS ---
The [address] [address] Patient Name: NABEEL TRAN MRN: [id number] date: 1955 Sex: M Assigned Patient Location: US Current Patient Location: Accession/Order Number: [id number] Exam Date: 03/25/2024 09:30 Report Date: 03/25/2024 12:13 At the request of: ONEYDA GREEN Procedure: US extremity nonvascular RT EXAM: US extremity nonvascular RT. HISTORY: Right Armpit Lump R22.31. COMPARISON: None. TECHNIQUE: Gil-scale and color Doppler imaging was used to evaluate the area of interest. FINDINGS: Within the axillary region there are enlarged heterogeneous predominantly hypoechoic masses, the largest of which measures 5.8 x 4.2 x 3.7 cm. A second measures 3.6 x 3.4 x 2.5 cm. These most likely represent enlarged axillary lymph nodes. Recommend CT scan of the chest for further evaluation. US/US extremity nonvascular RT IMPRESSION: Probable enlarged lymph nodes at the area of interest. Recommend CT of the chest for further evaluation. Electronically authenticated by: Barrett ROSENBERG Date: 03/25/2024 12:13
== END 2024-03-25 09:15 | disposition home or self-care (01) ==
LOC: US 09:14
PROVIDERS: PCP Nurse Practitioner Family; Visit Provider Nurse Practitioner Family
DX: R22.31 Localized swelling, mass and lump, right upper limb (principal)
CPT/HCPCS: 76882

== ENCOUNTER 2024-03-29 10:17 | Outpatient (OUT) | payer MEDICARE, SELFPAY ==
--- OUTSIDE RECORDS SUMMARY | 2024-03-29 10:20 | XMS_ITS | CCD ---
Author Organization [facility] Care Team Providers Care [employer] Teacher Name Role Phone PHYSICIAN, DEFAULT Unavailable Unavailable [...] Propensity to adverse reactions (disorder) 7 [facility] Repository (1 source) empagliflozin; 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: [EMPAGLIFLOZIN] Drug Allergy 4 [facility] (1 source) No Known Medication Allergies; 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: [No Known Medication Allergies] Propensity to adverse reactions (disorder) [facility] Repository Medications Current Medications Medication Drug [...] completed, # 2 tab(s), Refills(s) 0, Pharmacy: [id number], 187, cm, 01/21/24 11:48:00 EDT, Height/Length [...] / UNK(Unknown) Onset: 2017 Unclassified (1 source) 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; 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: [CORRECTION (CURRENT) USE OF ORAL 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 DRUGS] Onset: 2017 Unclassified (1 source) Patient encounter status 01-21-2024 Viral infection (1 source) COVID-19; 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: [COVID-19] Onset: 12-08-2020 Past or Other Problems Problem Classification Problem Date Documented Da te Episodic/Chronic Other aftercare (1 source) shelter (current) use of aspirin; 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: [CORRECTION (CURRENT) USE OF ASPIRIN] Onset: 2017 Episodic Other lower respiratory disease (3 sources) Cough; 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: [COUGH] Onset: 12-06-2020 Episodic Results Test Name Value Interpretation Reference Range Facility Office Visiton 02-25-2024 Follow-up visit [id number] Allen Tran 1955 M Date Provider Department Center 02/25/2024 JEROD BANKS Family History Problem Relation Age of Onset Coronary artery disease Mother Family Status - Relation Status Age at Mother Level of Service:97832 [place] OFFICE/OUTPATIENT NEW MODERATE MDM 45 MINUTES Normal [facility] Insurance Correspondenceon 0 01-30-2024 Insurance Correspondence [id number]#1.00TIFF [facility] Consent for Procedure/Surger yon 01-22-2024 Consent for Procedure/Surgery [id number]#1.00TIFF [facility] Physician Referralon 024 Physician Referral [id number]#1.00TIFF [facility] Screenson 01-22-2024 Screens [id number]#1.00TIFF [facility] Ambulatory Visit Summaryon 0 01-21-2024 Ambulatory Visit [...] [facility] [address], [place] [address]- Medications What When Instructions Unchanged amlodipine (amLODIPine [...] urine (ur (more content not included)... Normal [facility] Patient Educationon 01-21-20 Patient Education [...] Follow these instructions at home: ? Take encc-jfs-yhxywot and prescription medicines only as told by [...] the medicine (more content not included)... Normal [facility] INSULINon 08-27-2021 Insulin 19.2 uIU/mL Normal 2.6-24.9 [facility] Comment on above: Performed By: #### I NSULIN #### [facility] [address] [place] [address] Dr. Forrest Lauren CBC AUTO DIFFon 08-26-2021 BASO # 0.1 103/ul Normal 0.0-0.1 [facility] Comment on above: Performed By: #### P SASC #### [facility] [address] [place] [address] Dr. Forrest Lauren Basophils/100 WBC (Bld) 0.8 % Normal 0.2-2.0 [facility] Comment on above: Performed By: #### P SASC #### [facility] [address] [place] [address] Dr. Forrest Lauren EO # 0.4 103/ul Normal 0.0-0.7 [facility] Comment on above: Performed By: #### P SASC #### [facility] [address] [place] [address] Dr. Forrest Lauren Eosinophils/100 WBC (Bld) 4.8 % Normal 0.9-7.0 [facility] Comment on above: Performed By: #### P SASC #### [facility] [address] [place] [address] Dr. Forrest Lauren Erythrocyte distribution width (RBC) [Ratio] 12.7 % Normal 11.0-15.0 [facility] Comment on above: Performed By: #### P SASC #### [facility] [address] [place] [address] Dr. Forrest Lauren Hematocrit (Bld) [Volume fraction] 48.3 % Normal 42.0-54.0 [facility] Comment on above: Performed By: #### P SASC #### [facility] [address] [place] [address] Dr. Forrest Lauren Hemoglobin (Bld) [Mass/Vol] 16.4 g/dL Normal 14.0-18.0 [facility] Comment on above: Performed By: #### P SASC #### [facility] [address] [place] [address] Dr. Forrest Lauren IG # 0.05 10e3/ul Critically high 0.00-0.03 [facility] Comment on above: Performed By: #### P SASC #### [facility] [address] [place] [address] Dr. Forrest Lauren IG % 0.6 % Critically high 0.0-0.5 [facility] Comment on above: Performed By: #### P SASC #### [facility] [address] [place] [address] Dr. Forrest Lauren LYMPH # 2.0 103/ul Normal 1.2-3.8 [facility] Comment on above: Performed By: #### P SASC #### [facility] [address] [place] [address] Dr. Forrest Lauren Lymphocytes/100 WBC (Bld) 22.6 % Normal 20.5-60.0 [facility] Comment on above: Performed By: #### P SASC #### [facility] [address] [place] [address] Dr. Forrest Lauren MANUAL DIFF REQ NO Normal [facility] Comment on above: Performed By: #### P SASC #### [facility] [address] [address] [address] Forrest Lauren MCH (RBC) [Entitic mass] 29.8 pg Normal 25.9-34.0 [facility] Comment on above: Performed By: #### P SASC #### [facility] [address] [address] [address] Forrest Lauren MCHC (RBC) [Mass/Vol] 34.0 g/dL Normal 29.9-35.2 [facility] Comment on above: Performed By: #### P SASC #### [facility] [address] [place] [address] Dr. Forrest Lauren MCV (RBC) [Entitic vol] 87.8 fL Normal 80.0-94.0 [facility] Comment on above: Performed By: #### P SASC #### [facility] [address] [place] [address] Dr. Forrest Lauren MONO # 0.7 103/ul Normal 0.3-0.8 [facility] Comment on above: Performed By: #### P SASC #### [facility] [address] [place] [address] Dr. Forrest Lauren Monocytes/100 WBC (Bld) 8.0 % Normal 1.7-12.0 [facility] Comment on above: Performed By: #### P SASC #### [facility] [address] [place] [address] Dr. Forrest Lauren NEUT # 5.7 103/ul Normal 1.4-6.5 [facility] Comment on above: Performed By: #### P SASC #### [facility] [address] [place] [address] Dr. Forrest Lauren Neutrophils/100 WBC (Bld) 63.2 % Normal 43.0-75.0 [facility] Comment on above: Performed By: #### P SASC #### [facility] [address] [place] [address] Dr. Forrest Lauren Platelet mean volume (Bld) [Entitic vol] 9.7 fL Normal 9.5-13.5 [facility] Comment on above: Performed By: #### P SASC #### [facility] [address] [place] [address] Dr. Forrest Lauren PLT 242 103/ul Normal 150-450 [facility] Comment on above: Performed By: #### P SASC #### [facility] [address] [address] [address] Forrest Lauren RBC 5.50 106/ul Normal 4.70-6.10 [facility] Comment on above: Performed By: #### P SASC #### [facility] [address] [address] [address] Forrest Lauren WBC 9.0 103/ul Normal 4.0-11.0 [facility] Comment on above: Performed By: #### P SASC #### [facility] [address] [address] [address] Forrest Lauren GLYCOHEMOGLOBIN A1Con 2021 ADA RECOMMENDATION ADA THERAPEUTIC TARGET 6.0 - 7.0 ACTION SUGGESTED > 7.0 Normal [facility] Comment on above: Performed By: #### A 1C #### [facility] [address] [place] [address] Dr. Forrest Lauren Glucose [Mass/Vol] 194 mg/dL Normal [facility] Comment on above: Performed By: #### A 1C #### [facility] [address] [place] [address] Dr. Forrest Lauren HbA1c (Bld) [Mass fraction] 8.4 % Critically high <=6.0 [facility] Comment on above: Performed By: #### A 1C #### [facility] [address] [place] [address] Dr. Forrest Lauren LIPID PROFILEon 08-26-2021 CHOL-HDL RATIO NORM SEE BELOW Normal [facility] Comment on above: Result Comment: 3.3 - 4.4 LOW RISK 4.4 - 7.1 AVERAGE RISK 7.1 - 11.0 MODERATE RISK >11.0 HIGH RISK Performed By: #### P SASC #### [facility] [address] [address] [address] Forrest Lauren Cholesterol [Mass/Vol] 117 mg/dL Normal <=200 [facility] Comment on above: Performed By: #### P SASC #### [facility] [address] [address] [address] Forrest Lauren Cholesterol in HDL [Mass/Vol] 43 mg/dL Normal [facility] Comment on above: Performed By: #### P SASC #### [facility] [address] [address] [address] Forrest Lauren Cholesterol in LDL [Mass/Vol] 45.6 mg/dL Normal [facility] Comment on above: Performed By: #### P SASC #### [facility] [address] [address] [address] Forrest Lauren Cholesterol.total /Cholesterol in HDL [Mass ratio] 2.7 {ratio} Normal [facility] Comment on above: Performed By: #### P SASC #### [facility] [address] [address] [address] Forrest Lauren HDL NORMAL > or = 60 mg/dl - LO W CARDIOVASCULAR RISK <40 mg/dl - HIGH CARDIOVASCULAR RISK Normal [facility] Comment on above: Performed By: #### P SASC #### [facility] [address] [address] [address] Forrest Lauren LDL CALC NORMAL SEE BELOW Normal [facility] Comment on above: Result Comment: <100 mg/dl OPTIMAL 100 - 129 mg/dl NEAR OR ABOVE OPTIMAL 130 - 159 mg/dl BORDERLINE HIGH 160 - 189 mg/dl HIGH >190 mg/dl VERY HIGH Performed By: #### P SASC #### [facility] [address] [address] [address] Forrest Lauren Triglyceride [Mass/Vol] 142 mg/dL Normal <=150 [facility] Comment on above: Performed By: #### P SASC #### [facility] [address] [address] [address] Forrest Lauren VLDL CALC 28.4 mg/dL Normal [facility] Comment on above: Performed By: #### P SASC #### [facility] [address] [address] [address] Forrest Lauren PROF 14(COMP METB)on 022 Albumin [Mass/Vol] 4.1 g/dL Normal 3.5-5.0 [facility] Comment on above: Performed By: #### P SASC #### [facility] [address] [address] [address] Forrest Lauren Albumin/Globulin [Mass ratio] 1.2 {ratio} Normal [facility] Comment on above: Performed By: #### P SASC #### [facility] [address] [address] [address] Forrest Lauren ALP [Catalytic activity/Vol] 82 U/L Normal 38-126 [facility] Comment on above: Performed By: #### P SASC #### [facility] [address] [address] [address] Forrest Lauren ALT [Catalytic activity/Vol] 38 U/L Normal 21-72 [facility] Comment on above: Performed By: #### P SASC #### [facility] [address] [address] [address] Forrest Lauren Anion gap [Moles/Vol] 12.7 mmol/L Normal [facility] Comment on above: Performed By: #### P SASC #### [facility] [address] [address] [address] Forrest Lauren AST [Catalytic activity/Vol] 18 U/L Normal 17-59 [facility] Comment on above: Performed By: #### P SASC #### [facility] [address] [address] [address] Forrest Lauren Bilirubin [Mass/Vol] 1.2 mg/dL Normal 0.2-1.3 [facility] Comment on above: Performed By: #### P SASC #### [facility] [address] [place] [address] Dr. Forrest Lauren Calcium [Mass/Vol] 9.7 mg/dL Normal 8.4-10.2 [facility] Comment on above: Performed By: #### P SASC #### [facility] [address] [address] [address] Forrest Lauren Chloride [Moles/Vol] 102 mmol/L Normal 98-107 [facility] Comment on above: Performed By: #### P SASC #### [facility] [address] [address] [address] Forrest Lauren CO2 [Moles/Vol] 30.6 mmol/L Critically high 22.0-30.0 [facility] Comment on above: Performed By: #### P SASC #### [facility] [address] [address] [address] Forrest Lauren Creatinine [Mass/Vol] 1.09 mg/dL Normal 0.66-1.25 [facility] Comment on above: Performed By: #### P SASC #### [facility] [address] [address] [address] Forrest Lauren EGFR-AF MAURITANIAN >60 Normal >=60 [facility] Comment on above: Performed By: #### P SASC #### [facility] [address] [address] [address] Forrest Lauren EGFR-NON AF MAURITANIAN >60 Normal >=60 [facility] Comment on above: Performed By: #### P SASC #### [facility] [address] [address] [address] Forrest Lauren Globulin (S) [Mass/Vol] 3.4 g/dL Normal [facility] Comment on above: Performed By: #### P SASC #### [facility] [address] [address] [address] Forrest Lauren Glucose [Mass/Vol] 238 mg/dL Critically high 74-106 [facility] Comment on above: Performed By: #### P SASC #### [facility] [address] [address] [address] Forrest Lauren Potassium [Moles/Vol] 4.3 mmol/L Normal 3.4-5.0 [facility] Comment on above: Performed By: #### P SASC #### [facility] [address] [address] [address] Forrest Lauren Protein [Mass/Vol] 7.5 g/dL Normal 6.1-8.2 [facility] Comment on above: Performed By: #### P SASC #### [facility] [address] [address] [address] Forrest Lauren Sodium [Moles/Vol] 141 mmol/L Normal 137-145 [facility] Comment on above: Performed By: #### P SASC #### [facility] [address] [address] [address] Forrest Lauren Urea nitrogen [Mass/Vol] 20.0 mg/dL Normal 9.0-20.0 [facility] Comment on above: Performed By: #### P SASC #### [facility] [address] [address] [address] Forrest Lauren Urea nitrogen/Creatini ne [Mass ratio] 18.3 mg/mg Normal [facility] Comment on above: Performed By: #### P SASC #### [facility] [address] [address] [address] Forrest Lauren URIC ACID SERUMon 08-26-2021 Urate [Mass/Vol] 4.8 mg/dL Normal 3.5-8.5 [facility] Comment on above: Performed By: #### P SASC #### [facility] [address] [address] [address] Forrest Lauren Covid-19 PCR ([facility])on Sample Type Test performed using RT-PCR from a nasopharyngeal collected specimen. Normal [facility] Comment on above: Performed By: #### P SASC #### [facility] [address] [address] [address] Forrest Lauren SARS-CoV-2 (COVID-19) RNA MERA+probe Ql (Unsp spec) Detected Abnormal NOT DETECTED [facility] Comment on above: Result Comment: This test is not yet approved or cleared by the [place] FDA. When there are no FDA-approved or cleared tests available, and other criteria are met, FDA can make tests available under an emergency access mechanism called an Emergency Use Authorization (EUA). The EUA for this test is supported by the [place] of Health and Human Service's (HHS's) declaration [...] used). Performed By: #### P SASC #### [facility] [address] [place] [address] Dr. Forrest Lauren POINT OF CARE GLUCOSEon Glucose [Mass/Vol] 255 mg/dL Critically high 74-106 [facility] Comment on above: Performed By: #### P OCGLUC #### [facility] [address] [place] [address] Matias Rivas XR CHEST 1 Von 12-07-2020 [...] AMARIS WALKER Date: 2020-12-06 22:04 Normal [facility] INSULINon 10-02-2020 Insulin 16.9 uIU/mL Normal 2.6-24.9 [facility] Comment on above: Performed By: #### P SASC #### [facility] [address] [place] [address] Dr. Forrest Lauren CBC AUTO DIFFon 10-01-2020 BASO # 0.1 103/ul Normal 0.0-0.1 [facility] Comment on above: Performed By: #### C BC #### [facility] [address] [place] [address] Matias Rivas Basophils/100 WBC (Bld) 0.6 % Normal 0.2-2.0 [facility] Comment on above: Performed By: #### C BC #### [facility] [address] [place] [address] Matias Evelyn EO # 0.4 103/ul Normal 0.0-0.7 [facility] Comment on above: Performed By: #### C BC #### [facility] [address] [place] [address] Matias Evelyn Eosinophils/100 WBC (Bld) 4.2 % Normal 0.9-7.0 [facility] Comment on above: Performed By: #### C BC #### [facility] [address] [place] [address] Matias Evelyn Erythrocyte distribution width (RBC) [Ratio] 13.1 % Normal 11.0-15.0 [facility] Comment on above: Performed By: #### C BC #### [facility] [address] [place] [address] Matias Evelyn Hematocrit (Bld) [Volume fraction] 50.2 % Normal 42.0-54.0 [facility] Comment on above: Performed By: #### C BC #### [facility] [address] [place] [address] Matias Evelyn Hemoglobin (Bld) [Mass/Vol] 16.6 g/dL Normal 14.0-18.0 [facility] Comment on above: Performed By: #### C BC #### [facility] [address] [place] [address] Matias Evelyn IG # 0.05 10e3/ul Critically high 0.00-0.03 [facility] Comment on above: Performed By: #### C BC #### [facility] [address] [place] [address] Matias Evelyn IG % 0.6 % Critically high 0.0-0.5 [facility] Comment on above: Performed By: #### C BC #### [facility] [address] [place] [address] Matias Evelyn LYMPH # 1.9 103/ul Normal 1.2-3.8 [facility] Comment on above: Performed By: #### C BC #### [facility] [address] [place], [place] [id number] Matias Evelyn Lymphocytes/100 WBC (Bld) 22.2 % Normal 20.5-60.0 [facility] Comment on above: Performed By: #### C BC #### [facility] [address] [place], [place] [id number] Matias Evelyn MANUAL DIFF REQ NO Normal [facility] Comment on above: Performed By: #### C BC #### [facility] [address] [place], [place] [id number] Matias Evelyn MCH (RBC) [Entitic mass] 29.4 pg Normal 25.9-34.0 [facility] Comment on above: Performed By: #### C BC #### [facility] [address] [place] [address] Matias Evelyn MCHC (RBC) [Mass/Vol] 33.1 g/dL Normal 29.9-35.2 [facility] Comment on above: Performed By: #### C BC #### [facility] [address] [place], [place] [id number] Matias Evelyn MCV (RBC) [Entitic vol] 88.8 fL Normal 80.0-94.0 [facility] Comment on above: Performed By: #### C BC #### [facility] [address] [place], [place] [id number] Matias Evelyn MONO # 0.7 103/ul Normal 0.3-0.8 [facility] Comment on above: Performed By: #### C BC #### [facility] [address] [place], [place] [id number] Matias Evelyn Monocytes/100 WBC (Bld) 7.7 % Normal 1.7-12.0 [facility] Comment on above: Performed By: #### C BC #### [facility] [address] [place], [place] [id number] Matias Evelyn NEUT # 5.7 103/ul Normal 1.4-6.5 [facility] Comment on above: Performed By: #### C BC #### [facility] [address] [place], [place] [address] Matias Rivas Neutrophils/100 WBC (Bld) 64.7 % Normal 43.0-75.0 [facility] Comment on above: Performed By: #### C BC #### [facility] [address] [place], [place] [address] Matias Rivas Platelet mean volume (Bld) [Entitic vol] 10.4 fL Normal 9.5-13.5 [facility] Comment on above: Performed By: #### C BC #### [facility] [address] [place], [place] [address] Matiaswali Rodasen PLT 243 103/ul Normal 150-450 [facility] Comment on above: Performed By: #### C BC #### [facility] [address] [place], [place] [id number] Matias Evelyn RBC 5.65 106/ul Normal 4.70-6.10 [facility] Comment on above: Performed By: #### C BC #### [facility] [address] [place], [place] [address] Matias Rivas WBC 8.7 103/ul Normal 4.0-11.0 [facility] Comment on above: Performed By: #### C BC #### [facility] [address] [place], [place] [address] Matias Rivas FREE THYROXINE INDEX T7on FTI 2.11 Normal [facility] Comment on above: Performed By: #### U TARIK, CMP, T7, PSASC, TSH, LIPID #### [facility] [address] [place], [place] [address] Matias Rivas T3U 34.0 % Normal 23.5-40.5 [facility] Comment on above: Performed By: #### U TARIK, CMP, T7, PSASC, TSH, LIPID #### [facility] [address] [place], [place] [id number] Matias Rivas T4 [Mass/Vol] 6.20 ug/dL Normal 5.53-11.00 [facility] Comment on above: Performed By: #### U TARIK, CMP, T7, PSASC, TSH, LIPID #### [facility] [address] [place], [place] [address] Matias Rivas GLYCOHEMOGLOBIN A1Con 2020 ADA RECOMMENDATION ADA THERAPEUTIC TARGET 6.0 - 7.0 ACTION SUGGESTED > 7.0 Normal [facility] Comment on above: Performed By: #### A 1C #### [facility] [address] [address] Matias Rivas Glucose [Mass/Vol] 266 mg/dL Normal [facility] Comment on above: Performed By: #### A 1C #### [facility] [address] [address] Matias Rivas HbA1c (Bld) [Mass fraction] 10.9 % Critically high <=6.0 [facility] Comment on above: Performed By: #### A 1C #### [facility] [address] [place] [address] Matias Rivas LIPID PROFILEon 10-01-2020 CHOL-HDL RATIO NORM SEE BELOW Normal [facility] Comment on above: Result Comment: 3.3 - 4.4 LOW RISK 4.4 - 7.1 AVERAGE RISK 7.1 - 11.0 MODERATE RISK >11.0 HIGH RISK Performed By: #### P SASC #### [facility] [address] [place] [address] Dr. Forrest Lauren Cholesterol [Mass/Vol] 110 mg/dL Normal <=200 [facility] Comment on above: Performed By: #### P SASC #### [facility] [address] [address] [address] Forrest Lauren Cholesterol in HDL [Mass/Vol] 36 mg/dL Normal [facility] Comment on above: Performed By: #### P SASC #### [facility] [address] [address] [address] Forrest Lauren Cholesterol in LDL [Mass/Vol] 36.2 mg/dL Normal [facility] Comment on above: Performed By: #### P SASC #### [facility] [address] [address] [address] Forrest Lauren Cholesterol.total /Cholesterol in HDL [Mass ratio] 3.1 {ratio} Normal [facility] Comment on above: Performed By: #### P SASC #### [facility] [facility] [address] [address] [address] Forrest Lauren HDL NORMAL > or = 60 mg/dl - LO W CARDIOVASCULAR RISK <40 mg/dl - HIGH CARDIOVASCULAR RISK Normal [facility] Comment on above: Performed By: #### P SASC #### [facility] [address] [address] [address] Forrest Lauren LDL CALC NORMAL SEE BELOW Normal [facility] Comment on above: Result Comment: <100 mg/dl OPTIMAL 100 - 129 mg/dl NEAR OR ABOVE OPTIMAL 130 - 159 mg/dl BORDERLINE HIGH 160 - 189 mg/dl HIGH >190 mg/dl VERY HIGH Performed By: #### P SASC #### [facility] [address] [place] [address] Dr. Forrest Lauren Triglyceride [Mass/Vol] 189 mg/dL Critically high <=150 [facility] Comment on above: Performed By: #### P SASC #### [facility] [address] [place] [address] Dr. Forrest Lauren VLDL CALC 37.8 mg/dL Normal [facility] Comment on above: Performed By: #### P SASC #### [facility] [address] [place] [address] Dr. Forrest Lauren PROF 14(COMP METB)on 021 Albumin [Mass/Vol] 4.1 g/dL Normal 3.5-5.0 [facility] Comment on above: Performed By: #### U TARIK, CMP, T7, PSASC, TSH, LIPID #### [facility] [address] [place] [address] Matias Rivas Albumin/Globulin [Mass ratio] 1.2 {ratio} Normal [facility] Comment on above: Performed By: #### U TARIK, CMP, T7, PSASC, TSH, LIPID #### [facility] [address] [address] Matias Evelyn ALP [Catalytic activity/Vol] 80 U/L Normal 38-126 [facility] Comment on above: Performed By: #### U TARIK, CMP, T7, PSASC, TSH, LIPID #### [facility] [address] [address] Matias Evelyn ALT [Catalytic activity/Vol] 42 U/L Normal 21-72 [facility] Comment on above: Performed By: #### U TARIK, CMP, T7, PSASC, TSH, LIPID #### [facility] [address] [address] Matias Evelyn Anion gap [Moles/Vol] 12.3 mmol/L Normal [facility] Comment on above: Performed By: #### U TARIK, CMP, T7, PSASC, TSH, LIPID #### [facility] [address] [place] [address] Matias Evelyn AST [Catalytic activity/Vol] 24 U/L Normal 17-59 [facility] Comment on above: Performed By: #### U TARIK, CMP, T7, PSASC, TSH, LIPID #### [facility] [address] [place] [address] Matias Evelyn Bilirubin [Mass/Vol] 1.3 mg/dL Normal 0.2-1.3 [facility] Comment on above: Performed By: #### U TARIK, CMP, T7, PSASC, TSH, LIPID #### [facility] [address] [place] [address] Matias Evelyn Calcium [Mass/Vol] 9.3 mg/dL Normal 8.4-10.2 [facility] Comment on above: Performed By: #### U TARIK, CMP, T7, PSASC, TSH, LIPID #### [facility] [address] [place] [address] Matias Evelyn Chloride [Moles/Vol] 103 mmol/L Normal 98-107 [facility] Comment on above: Performed By: #### U TARIK, CMP, T7, PSASC, TSH, LIPID #### [facility] [address] [place] [address] Matias Evelyn CO2 [Moles/Vol] 30.0 mmol/L Normal 22.0-30.0 [facility] Comment on above: Performed By: #### U TARIK, CMP, T7, PSASC, TSH, LIPID #### [facility] [address] [address] Matias Evelyn Creatinine [Mass/Vol] 1.20 mg/dL Normal 0.66-1.25 [facility] Comment on above: Performed By: #### U TARIK, CMP, T7, PSASC, TSH, LIPID #### [facility] [address] [address] Matias Evelyn EGFR-AF MAURITANIAN >60 Normal >=60 [facility] Comment on above: Performed By: #### U TARIK, CMP, T7, PSASC, TSH, LIPID #### [facility] [address] [place] [address] Matias Evelyn EGFR-NON AF MAURITANIAN >60 Normal >=60 [facility] Comment on above: Performed By: #### U TARIK, CMP, T7, PSASC, TSH, LIPID #### [facility] [address] [place] [address] Matias Evelyn Globulin (S) [Mass/Vol] 3.5 g/dL Normal [facility] Comment on above: Performed By: #### U TARIK, CMP, T7, PSASC, TSH, LIPID #### [facility] [address] [place] [address] Matias Evelyn Glucose [Mass/Vol] 269 mg/dL Critically high 74-106 [facility] Comment on above: Performed By: #### U TARIK, CMP, T7, PSASC, TSH, LIPID #### [facility] [address] [place] [address] Matias Evelyn Potassium [Moles/Vol] 4.3 mmol/L Normal 3.4-5.0 [facility] Comment on above: Performed By: #### U TARIK, CMP, T7, PSASC, TSH, LIPID #### [facility] [address] [place] [address] Matias Evelyn Protein [Mass/Vol] 7.6 g/dL Normal 6.1-8.2 [facility] Comment on above: Performed By: #### U TARIK, CMP, T7, PSASC, TSH, LIPID #### [facility] [address] [address] Matias Evelyn Sodium [Moles/Vol] 141 mmol/L Normal 137-145 [facility] Comment on above: Performed By: #### U TARIK, CMP, T7, PSASC, TSH, LIPID #### [facility] [address] [address] Matias Evelyn Urea nitrogen [Mass/Vol] 17.0 mg/dL Normal 9.0-20.0 [facility] Comment on above: Performed By: #### U TARIK, CMP, T7, PSASC, TSH, LIPID #### [facility] [address] [address] Matias Evelyn Urea nitrogen/Creatini ne [Mass ratio] 14.2 mg/mg Normal [facility] Comment on above: Performed By: #### U TARIK, CMP, T7, PSASC, TSH, LIPID #### [facility] [address] [address] Matias Evelyn TSHon 10-01-2020 TSH 1.574 uIU/mL Normal 0.470-4.68 0 [facility] Comment on above: Performed By: #### P SASC #### [facility] [address] [address] [address] Forrest Lauren TSH RANGE SEE BELOW Normal [facility] Comment on above: Result Comment: <0.3 4 UIU/ml HYPERTHYROID 0.34-5.60 UIU/ml EUTHYROID >5.60 UIU/ml HYPOTHYROID Performed By: #### P SASC #### [facility] [address] [place] [address] Dr. Forrest Lauren URIC ACID SERUMon 10-01-2020 Urate [Mass/Vol] 4.8 mg/dL Normal 3.5-8.5 [facility] Comment on above: Performed By: #### P SASC #### [facility] [address] [place] [address] Dr. Forrest Lauren Cardiovascular Lab Reporton 08-03-2017 Cardiovascular Lab Report [facility]: [id number] Physician: Jerod Miller M.D.Medicine Service Date: 2017Division of Birthdate: 6Cardiology [facility] #: [facility], [place] [address]Swtli Fax Cardiovascular Laboratory ReportINDICATION: Hoang Tran is [...] the right internal jugular vein and a 6-Sudanese x 11cm sheath was placed. A 6-Sudanese Griffith catheter was used for right heartcatheterization with measurement of pressures and calculation of cardiacoutput using the estimated Luke method. Griffith catheter was removed.Using ultrasound guidance and micropuncture technique, access was obtainedin the left radial artery and a 6-Sudanese x 11 cm Hydrophilic sheath wasadvanced. Verapamil [...] 08/02/2017/02:42 P/Jerod Manuel M.D.Date Trans: 08/03/2017 11:29 A/[id number]:[id number]: Yfn Mata D.O. [address] [place] [address] Normal [facility] Vital Signs Date Time Vital Sign Value Performing Clinician Jose fairchild 01-21-2024 11:44-0400 Blood Pressure Location [facility] 01-21-2024 11:44-0400 Diastolic blood pressure 72 mm[Hg] [facility] 01-21-2024 11:44-0400 Heart rate 70 /min [facility] 01-21-2024 11:44-0400 Respiratory rate 16 /min [facility] 01-21-2024 11:77-4610 Systolic blood pressure 108 mm[Hg] [facility] Encounters Encounter Date Encounter Type Care Provider Facility Start: 06-09-2024 ambulatory [facility] Facili ty:[facility] Start: 02-25-2024 End: 02-25-2024 ambulatory [facility] Start: 02-11-2024 End: 02-11-2024 ambulatory Moody POP Facility:[id number] Start: 01-21-2024 End: 01-21-2024 ambulatory Moody POP Facility:[facility] Start: 01-21-2024 End: 01-21-2024 Patient encounter procedure [facility] Start: 09-12-2023 ambulatory [facility] POP Facility :[facility] Start: 08-26-2021 End: 08-26-2021 ambulatory AILIN BAKER Facility:[facility] Start: 02-23-2021 ambulatory AILIN BAKER Facility:[facility] Start: 12-06-2020 End: 12-07-2020 ambulatory ILAN TODD Facility:[facility] Start: 10-07-2020 Encounter for genera l adult medical examination without abnormal findings AILIN BAKER [facility] Start: 10-01-2020 End: 10-02-2020 ambulatory AILIN BAKER Facility:[facility] Start: 10-01-2020 End: 10-02-2020 Encounter for general adult medical examination without abnormal findings AILIN BAKER Facility:[facility] Start: 2017 End: 08-03-2017 Ambulatory PROVIDER UNKNOWN Facility:[facility] Start: 07-24-2017 End: 07-25-2017 Ambulatory DEFAULT PHYSICIAN Facility:[facility] Start: 07-19-2017 End: 07-20-2017 Ambulatory DEFAULT PHYSICIAN Facility:[facility] Start: 06-18-2017 End: 06-19-2017 Ambulatory DEFAULT PHYSICIAN Facility:[facility] Procedures Date Procedure Procedure Detail Performing Clinician Start: 08-26-2021 PSA screening AILIN KHAN Comment on above: Performed By: #### P SASC #### [facility] [address], [place] [address] Dr. Forrest Lauren Start: 10-01-2020 PSA screening AILIN KHAN Comment on above: Performed By: #### U TARIK, CMP, T7, PSASC, TSH, LIPID #### [facility] [address] [place], [place] [address] Matias Rivas Start: 08-06-2013 Colonoscopy [facility] CARISSA ADAMSJhonatan Start: 08-06-2004 Neoplasm of brain (disorder) [facility] Back structure, excl uding neck (body structure) [facility] Tonsillectomy [facility] Payers Date Payer Category Payer Medicare [id number] [address] [facility] [id number] 1958 Medicare [id number] 1958 Self-pay 1955 Unknown [id number] 2.16.84 [id number] 1955 Unknown [id number] 2.16.84 [id number] 1955 Unknown [id number] 2.16.84 [id number] 1955 Unknown [id number] 2.16.84 [id number] 1955 Unknown [id number] 2.16.8 [id number] 1955 Unknown [id number] 2.16.8 [id number] 1955 Unknown [id number] 2.16.8 [id number] Unknown Social History Date Type Detail Facility Start: 01-21-2024 Tobacco smoking status Never s moked tobacco (finding) [facility] Tobacco smoking status Never [facility] Sex Assigned At Male [facility] Functional Status Date Assessment Result Facility 01-21-2024 Functional Status N/A [facility] Progress note 02-25-2024 Note Date & Type Note Facility 02-25-2024 Note [facility] Subjective Hoang Tran is a 68 [...] platelets 256, potassium (more content not included)... [facility] Clinical Note 01-21-2024 Note Date & [...] male new pt referred by Ailin Green [facility] due to LUTS. 1. BPH with [...] neoplasm of prostat (more content not included)... [facility] Comment on above: Result Comment: [...] urethra. Follow these instructions at home: Take lmln-hsa-uesharv and prescription medicines only as told by [...] provider. Document Revised: 02/08/2022 Document Reviewed: 02/08/2022 [employer] Patient Education 2022 [employer]. Follow Up Care 09/13/2023 09:26:56 With:DONN ELLIS, Moody Aranda, URL Address: [facility] [address] , [place] [address]- When: Unknown [facility] Evaluation + Plan note Note Date & Type Note Facility Evaluation + Plan note No data available for this section [facility] Progress note Note Date & Type Note Facility Progress note No data available for this section [facility] Summary Purpose Family History No Family [...] and content) DATE CREATED AUTHOR 01/29/2018 [facility] DATE CREATED AUTHOR AUTHOR'S ORGANIZ ATION 09/01/2021 [facility] DATE CREATED AUTHOR AUTHOR'S ORGANIZ ATION 02/27/2024 [facility] DATE CREATED AUTHOR AUTHOR'S ORGANIZ ATION 03/12/2024 [facility] Patient Care team informatio n (unrecognized section and content) Personnel Name: AILIN GREEN CNP Address: Address: [address] [place], [place] [address] FOR RECORDS PERTAINING TO PATIENTS WHO ARE [...] BE BASED ON THE PRIMARY CLINICAL RECORDS. [facility] [email or web address] [facility]. provides no warranty or guarantee of the accuracy or completeness of information in this document.
--- NOTE | 2024-03-29 10:50 | CT_ITS ---
[address] [address] Patient Name: NABEEL TRAN MRN: [id number] date: 1955 Sex: M Assigned Patient Location: CT Current Patient Location: Accession/Order Number: [id number] Exam Date: 03/29/2024 10:38 Report Date: 04/01/2024 05:20 At the request of: ONEYDA GREEN Procedure: CT chest w con EXAMINATION: CT chest w con HISTORY: ENLARGED LYMPH NODE ; right axilla mass/lump for several months COMPARISON: No relevant comparison available. TECHNIQUE: Multi-planar CT images were obtained without and/or with IV contrast as indicated by examination type. Axial, Coronal, and Sagittal images. Dose reduction techniques were achieved by using automated exposure control and/or adjustment of mA and/or kV according to patient size and/or use of iterative reconstruction technique. FINDINGS: LUNGS: Calcified granulomas within posterior left lung base. No acute infiltrates or suspicious nodules. PLEURA: No mass, effusion, or pneumothorax. VASCULATURE: No abnormality. MAGALIE: Calcified left hilar lymph nodes. MEDIASTINUM: Calcified left hilar lymph nodes. CARDIAC: No enlargement or pericardial thickening.. Coronary artery calcifications: AORTA: No aneurysm or dissection. CHEST WALL: Numerous enlarged lymph nodes within right axilla, largest is 6.0 cm in long axis. BONES: No bone lesion or fracture. LIMITED ABDOMEN: Elevated left hemidiaphragm. Limited images of the upper abdomen. OTHER: Negative. CT/CT chest w con IMPRESSION: 1. Right axilla marked lymphadenopathy of uncertain etiology. No involvement of the lower neck, supraclavicular, or mediastinum. No appreciable mass of the chest wall. Consider ultrasound-guided tissue sampling. 2. Chronic granulomatous disease. 3. Elevated left hemidiaphragm; positioning versus diaphragm paralysis. Electronically authenticated by: NABEEL LUGO Date: 04/01/2024 05:20
== END 2024-03-29 10:18 | disposition home or self-care (01) ==
LOC: CT 10:18
PROVIDERS: PCP Nurse Practitioner Family; Visit Provider Nurse Practitioner Family
DX: R59.1 Generalized enlarged lymph nodes (principal)
CPT/HCPCS: 71260; Q9967

== ENCOUNTER 2024-04-11 08:45 | Day surgery (SDC) | payer MEDICARE, SELFPAY ==
--- NOTE | 2024-04-11 08:52 | US_ITS ---
[address] [address] Patient Name: NABEEL TRAN MRN: [id number] date: 1955 Sex: M Assigned Patient Location: Current Patient Location: Accession/Order Number: [id number] Exam Date: 04/11/2024 09:30 Report Date: 04/11/2024 11:48 At the request of: ONEYDA GREEN Procedure: US biopsy lymph node EXAMINATION: US biopsy lymph node HISTORY: Enlarged Lymph Node COMPARISON: CT chest 03/29/2024, ultrasound extremity nonvascular right 03/25/2024 TECHNIQUE: After obtaining informed consent, ultrasound-guided fine needle aspiration was performed in the usual sterile manner. FINDINGS: IMAGING: Ultrasound. BIOPSY NEEDLE: 17-gauge spring-loaded core biopsy needle LOCATION: Right axilla 6.1 cm enlarged lymph node versus mass. SPECIMEN TYPE: Cellular tissue. LOCAL ANESTHETIC: Buffered Xylocaine. COMPLICATIONS: None. LABORATORY: Prepared slide smears and washings for cell block evaluation. OTHER: Negative. PATHOLOGY: Pending. An addendum will be added when results are available. US/US biopsy lymph node IMPRESSION: 1. Uneventful ultrasound guided fine needle aspiration (FNA). 2. Pathology results are pending. Electronically authenticated by: NABEEL LUGO Date: 04/11/2024 11:48
--- OUTSIDE RECORDS SUMMARY | 2024-04-11 09:07 | XMS_ITS | CCD ---
Author Organization [facility] Care Team Providers Care Mineral Engineer Name Role Phone PHYSICIAN, DEFAULT Unavailable Unavailable [...] BAKER Attending Unavailable AILIN BAKER Consulting Unavailable RAY AILIN Primary Care Unavailable AILIN BAKER Attending Unavailable [...] POP Attending Unavailable JEROD MANUEL Attending Unavailable JEROD MANUEL Attending Unavailable Allergies Allergy Classification Reported Allergen(s) Allergy Type Date of Onset Reaction(s) Facility (2 sources) No Known Allergies; 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: [No Known Allergies] Propensity to adverse reactions (disorder) 7 [facility] Repository (1 source) No Known Medication Allergies; 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: [No Known Medication Allergies] Propensity to adverse reactions (disorder) [facility] Repository (1 source) empagliflozin; 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: [EMPAGLIFLOZIN] Drug Allergy 4 [facility] Repository Medications Current Medications Medication Drug [...] completed, # 2 tab(s), Refills(s) 0, Pharmacy: [facility], 187, cm, 01/21/24 11:48:00 EDT, Height/Length Dosing, 118, kg, 01/21/24 11:48:00 EDT, Weight Dosing Start Date: 01/21/24 Status: Ordered Problems Active Problems Problem Classification Problem Date Documented Date Episodic/Chronic Cardiac dysrhythmias (2 sources) Atrial premature depolarization; 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: [Atrial premature depolarization] Onset: 02-25-2024 Chronic Complications of surgical procedures or medical care (2 sources) Hypotension due to drugs; 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: [Hypotension due to drugs] Onset: 03-28-2024 Episodic Diabetes mellitus without complication (2 sources) Type 2 diabetes mellitus without complications; 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: [Diabetes mellitus] Onset: 2017 01-21-2024 Chronic Diabetes mellitus without complication (6 sources) Other abnormal glucose; 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: [Glycosuria] Onset: 08-26-2021 Episodic Disorders of lipid metabolism (4 sources) Hyperlipidemia, unspecified; 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: [Hyperlipidemia] Onset: 08-31-2021 01-21-2024 Chronic Essential hypertension (5 sources) Essential (primary) hypertension; 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: [Hypertensive disorder] Onset: 06-20-2017 01-21-2024 Chronic Heart valve disorders (7 sources) Nonrheumatic mitral (valve) insufficiency; 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: [Nonrheumatic aortic (valve) stenosis] Onset: 2017 Chronic Hyperplasia of prostate (2 [...] UNK(Unknown) Onset: 2017 Unclassified (1 source) 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; 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: [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 DRUGS] Onset: 2017 Unclassified (1 source) Patient encounter status 01-21-2024 Viral infection (1 source) COVID-19; 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: [COVID-19] Onset: 12-08-2020 Past or Other Problems Problem Classification Problem Date Documented Da te Episodic/Chronic Other aftercare (1 source) 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; 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: [CORRECTION (CURRENT) USE OF ASPIRIN] Onset: 2017 Episodic Other lower respiratory disease (3 sources) Cough; 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: [COUGH] Onset: 12-06-2020 Episodic Results Test Name Value Interpretation Reference Range Facility Office Visiton 03-28-2024 Follow-up visit [id number] Allen Tran 1955 M Date Provider Department Center 03/28/2024 JEROD BANKS Family History Problem Relation Age of Onset Coronary artery disease Mother Family Status - Relation Status Age at Mother Level of Service:68769 UT OFFICE/OUTPATIENT ESTABLISHED MOD MDM 30 MIN Normal [facility] Office Visiton 02-25-2024 Follow-up visit [id number] AsiyaAllen joiner carol Young 1955 M Date Provider Department Center 02/25/2024 JEROD BANKS ELIAS Mark Marlene Family History Problem Relation Age of Onset Coronary artery disease Mother Family Status - Relation Status Age at Mother Level of Service:01281 UT OFFICE/OUTPATIENT NEW MODERATE MDM 45 MINUTES Normal [facility] Insurance Correspondenceon 0 01-30-2024 Insurance Correspondence [id number]#[id number] Normal [facility] Consent for Procedure/Surger yon 01-22-2024 Consent for Procedure/Surgery [id number]#1.00TIFF Normal [facility] Physician Referralon 024 Physician Referral [id number]#1.00TIFF Normal [facility] Screenson 01-22-2024 Screens [id number]#1.00TIFF Normal [facility] Ambulatory Visit Summaryon 0 01-21-2024 Ambulatory Visit Summary KARENMIKEZEESHANBECKY Young :1955 Visit Date:01/21/2024 Ambulatory Visit Instructions Your [...] Following Appointments Follow Up with DONN ELLIS, FREDDY Jimenez When: Where: [facility] [address] [place] [address]- Medications What When Instructions Unchanged amlodipine (amLODIPine [...] urine (ur (more content not included)... Normal [facility] Patient Educationon 01-21-20 Patient Education [...] Follow these instructions at home: ? Take cztc-[id number] and prescription medicines only as told by [...] the medicine (more content not included)... Normal [facility] INSULINon 08-27-2021 Insulin 19.2 uIU/mL Normal 2.6-24.9 [facility] Comment on above: Performed By: #### I NSULIN #### [facility] [address] [address] [address] Forrest Lauren CBC AUTO DIFFon 08-26-2021 BASO # 0.1 103/ul Normal 0.0-0.1 [facility] Comment on above: Performed By: #### P SASC #### [facility] [address] [address] [address] Forrest Lauren Basophils/100 WBC (Bld) 0.8 % Normal 0.2-2.0 [facility] Comment on above: Performed By: #### P SASC #### [facility] [address] [place] [address] Dr. Forrest Lauren EO # 0.4 103/ul Normal 0.0-0.7 [facility] Comment on above: Performed By: #### P SASC #### [facility] [address] [place] [address] Dr. Forrest Lauren Eosinophils/100 WBC (Bld) 4.8 % Normal 0.9-7.0 [facility] Comment on above: Performed By: #### P SASC #### [facility] [address] [place] [address] Dr. Forrest Lauren Erythrocyte distribution width (RBC) [Ratio] 12.7 % Normal 11.0-15.0 [facility] Comment on above: Performed By: #### P SASC #### [facility] [address] [place] [address] Dr. Forrest Lauren Hematocrit (Bld) [Volume fraction] 48.3 % Normal 42.0-54.0 [facility] Comment on above: Performed By: #### P SASC #### [facility] [address] [place] [address] Dr. Forrest Lauren Hemoglobin (Bld) [Mass/Vol] 16.4 g/dL Normal 14.0-18.0 [facility] Comment on above: Performed By: #### P SASC #### [facility] [address] [place] [address] Dr. Forrest Lauren IG # 0.05 10e3/ul Critically high 0.00-0.03 [facility] Comment on above: Performed By: #### P SASC #### [facility] [address] [place] [address] Dr. Forrest Lauren IG % 0.6 % Critically high 0.0-0.5 [facility] Comment on above: Performed By: #### P SASC #### [facility] [address] [place] [address] Dr. Forrest Lauren LYMPH # 2.0 103/ul Normal 1.2-3.8 [facility] Comment on above: Performed By: #### P SASC #### [facility] [address] [place] [address] Dr. Forrest Lauren Lymphocytes/100 WBC (Bld) 22.6 % Normal 20.5-60.0 [facility] Comment on above: Performed By: #### P SASC #### [facility] [address] [place] [address] Dr. Forrest Lauren MANUAL DIFF REQ NO Normal [facility] Comment on above: Performed By: #### P SASC #### [facility] [address] [place] [address] Dr. Forrest Lauren MCH (RBC) [Entitic mass] 29.8 pg Normal 25.9-34.0 [facility] Comment on above: Performed By: #### P SASC #### [facility] [address] [place] [address] Dr. Forrest Lauren MCHC (RBC) [Mass/Vol] 34.0 g/dL Normal 29.9-35.2 [facility] Comment on above: Performed By: #### P SASC #### [facility] [address] [place] [address] Dr. Forrest Lauren MCV (RBC) [Entitic vol] 87.8 fL Normal 80.0-94.0 [facility] Comment on above: Performed By: #### P SASC #### [facility] [address] [place] [address] Dr. Forrest Lauren MONO # 0.7 103/ul Normal 0.3-0.8 [facility] Comment on above: Performed By: #### P SASC #### [facility] [address] [place] [address] Dr. Forrest Lauren Monocytes/100 WBC (Bld) 8.0 % Normal 1.7-12.0 [facility] Comment on above: Performed By: #### P SASC #### [facility] [address] [place] [address] Dr. Forrest Lauren NEUT # 5.7 103/ul Normal 1.4-6.5 [facility] Comment on above: Performed By: #### P SASC #### [facility] [address] [address] [address] Forrest Lauren Neutrophils/100 WBC (Bld) 63.2 % Normal 43.0-75.0 [facility] Comment on above: Performed By: #### P SASC #### [facility] [address] [address] [address] Forrest Lauren Platelet mean volume (Bld) [Entitic vol] 9.7 fL Normal 9.5-13.5 [facility] Comment on above: Performed By: #### P SASC #### [facility] [address] [address] [address] Forrest Lauren PLT 242 103/ul Normal 150-450 [facility] Comment on above: Performed By: #### P SASC #### [facility] [address] [address] [address] Forrest Lauren RBC 5.50 106/ul Normal 4.70-6.10 [facility] Comment on above: Performed By: #### P SASC #### [facility] [address] [place] [address] Dr. Forrest Lauren WBC 9.0 103/ul Normal 4.0-11.0 [facility] Comment on above: Performed By: #### P SASC #### [facility] [address] [place] [address] Dr. Forrest Lauren GLYCOHEMOGLOBIN A1Con 2021 ADA RECOMMENDATION ADA THERAPEUTIC TARGET 6.0 - 7.0 ACTION SUGGESTED > 7.0 Normal [facility] Comment on above: Performed By: #### A 1C #### [facility] [address] [place] [address] Dr. Forrest Lauren Glucose [Mass/Vol] 194 mg/dL Normal [facility] Comment on above: Performed By: #### A 1C #### [facility] [address] [place] [address] Dr. Forrest Lauren HbA1c (Bld) [Mass fraction] 8.4 % Critically high <=6.0 [facility] Comment on above: Performed By: #### A 1C #### [facility] [address] [address] [address] Forrest Lauren LIPID PROFILEon 08-26-2021 CHOL-HDL RATIO NORM SEE BELOW Normal [facility] Comment on above: Result Comment: 3.3 - 4.4 LOW RISK 4.4 - 7.1 AVERAGE RISK 7.1 - 11.0 MODERATE RISK >11.0 HIGH RISK Performed By: #### P SASC #### [facility] [address] [address] [address] Forrest Lauren Cholesterol [Mass/Vol] 117 mg/dL Normal <=200 [facility] Comment on above: Performed By: #### P SASC #### [facility] [address] [address] [address] Forrest Lauren Cholesterol in HDL [Mass/Vol] 43 mg/dL Normal [facility] Comment on above: Performed By: #### P SASC #### [facility] [address] [place] [address] Dr. Forrest Lauren Cholesterol in LDL [Mass/Vol] 45.6 mg/dL Normal [facility] Comment on above: Performed By: #### P SASC #### [facility] [address] [place] [address] Dr. Forrest Lauren Cholesterol.total /Cholesterol in HDL [Mass ratio] 2.7 {ratio} Normal [facility] Comment on above: Performed By: #### P SASC #### [facility] [address] [place] [address] Dr. Forrest Lauren HDL NORMAL > or = 60 mg/dl - LO W CARDIOVASCULAR RISK <40 mg/dl - HIGH CARDIOVASCULAR RISK Normal [facility] Comment on above: Performed By: #### P SASC #### [facility] [address] [place] [address] Dr. Forrest Lauren LDL CALC NORMAL SEE BELOW Normal [facility] Comment on above: Result Comment: <100 mg/dl OPTIMAL 100 - 129 mg/dl NEAR OR ABOVE OPTIMAL 130 - 159 mg/dl BORDERLINE HIGH 160 - 189 mg/dl HIGH >190 mg/dl VERY HIGH Performed By: #### P SASC #### [facility] [address] [address] [address] Forrest Lauren Triglyceride [Mass/Vol] 142 mg/dL Normal <=150 [facility] Comment on above: Performed By: #### P SASC #### [facility] [address] [address] [address] Forrest Lauren VLDL CALC 28.4 mg/dL Normal [facility] Comment on above: Performed By: #### P SASC #### [facility] [address] [address] [address] Forrest Lauren PROF 14(COMP METB)on 022 Albumin [Mass/Vol] 4.1 g/dL Normal 3.5-5.0 [facility] Comment on above: Performed By: #### P SASC #### [facility] [address] [place] [address] Dr. Forrest Lauren Albumin/Globulin [Mass ratio] 1.2 {ratio} Normal [facility] Comment on above: Performed By: #### P SASC #### [facility] [address] [place] [address] Dr. Forrest Lauren ALP [Catalytic activity/Vol] 82 U/L Normal 38-126 [facility] Comment on above: Performed By: #### P SASC #### [facility] [address] [place] [address] Dr. Forrest Lauren ALT [Catalytic activity/Vol] 38 U/L Normal 21-72 [facility] Comment on above: Performed By: #### P SASC #### [facility] [address] [place] [address] Dr. Forrest Lauren Anion gap [Moles/Vol] 12.7 mmol/L Normal [facility] Comment on above: Performed By: #### P SASC #### [facility] [address] [place] [address] Dr. Forrest Lauren AST [Catalytic activity/Vol] 18 U/L Normal 17-59 [facility] Comment on above: Performed By: #### P SASC #### [facility] [address] [address] [address] Forrest Lauren Bilirubin [Mass/Vol] 1.2 mg/dL Normal 0.2-1.3 [facility] Comment on above: Performed By: #### P SASC #### [facility] [address] [address] [address] Forrest Lauren Calcium [Mass/Vol] 9.7 mg/dL Normal 8.4-10.2 [facility] Comment on above: Performed By: #### P SASC #### [facility] [address] [address] [address] Forrest Lauren Chloride [Moles/Vol] 102 mmol/L Normal 98-107 [facility] Comment on above: Performed By: #### P SASC #### [facility] [address] [address] [address] Forrest Lauren CO2 [Moles/Vol] 30.6 mmol/L Critically high 22.0-30.0 [facility] Comment on above: Performed By: #### P SASC #### [facility] [address] [address] [address] Forrest Lauren Creatinine [Mass/Vol] 1.09 mg/dL Normal 0.66-1.25 [facility] Comment on above: Performed By: #### P SASC #### [facility] [address] [place] [address] Dr. Forrest Lauren EGFR-AF ENGLISH >60 Normal >=60 [facility] Comment on above: Performed By: #### P SASC #### [facility] [address] [address] [address] Forrest Lauren EGFR-NON AF ENGLISH >60 Normal >=60 [facility] Comment on above: Performed By: #### P SASC #### [facility] [address] [place] [address] Dr. Forrest Lauren Globulin (S) [Mass/Vol] 3.4 g/dL Normal [facility] Comment on above: Performed By: #### P SASC #### [facility] [address] [address] [address] Forrest Lauren Glucose [Mass/Vol] 238 mg/dL Critically high 74-106 [facility] Comment on above: Performed By: #### P SASC #### [facility] [address] [address] [address] Forrest Lauren Potassium [Moles/Vol] 4.3 mmol/L Normal 3.4-5.0 [facility] Comment on above: Performed By: #### P SASC #### [facility] [address] [address] [address] Forrest Lauren Protein [Mass/Vol] 7.5 g/dL Normal 6.1-8.2 [facility] Comment on above: Performed By: #### P SASC #### [facility] [address] [place] [address] Dr. Forrest Lauren Sodium [Moles/Vol] 141 mmol/L Normal 137-145 [facility] Comment on above: Performed By: #### P SASC #### [facility] [address] [address] [address] Forrest Lauren Urea nitrogen [Mass/Vol] 20.0 mg/dL Normal 9.0-20.0 [facility] Comment on above: Performed By: #### P SASC #### [facility] [address] [place] [address] Dr. Forrest Lauren Urea nitrogen/Creatini ne [Mass ratio] 18.3 mg/mg Normal [facility] Comment on above: Performed By: #### P SASC #### [facility] [address] [address] [address] Forrest Lauren URIC ACID SERUMon 08-26-2021 Urate [Mass/Vol] 4.8 mg/dL Normal 3.5-8.5 [facility] Comment on above: Performed By: #### P SASC #### [facility] [address] [place] [address] Dr. Forrest Lauren [facility] Sample Type Test performed using RT-PCR from a nasopharyngeal collected specimen. Normal [facility] Comment on above: Performed By: #### P SASC #### [facility] [address] [address] [address] Forrest Lauren SARS-CoV-2 (COVID-19) RNA MERA+probe Ql (Unsp spec) Detected Abnormal NOT DETECTED [facility] Comment on above: Result Comment: This test is not yet approved or cleared by the [place] FDA. When there are no FDA-approved or cleared tests available, and other criteria are met, FDA can make tests available under an emergency access mechanism called an Emergency Use Authorization (EUA). The EUA for this test is supported by the [place] of Health and Human Service's (HHS's) declaration [...] used). Performed By: #### P SASC #### [facility] [address] [address] [address] Forrest Lauren POINT OF CARE GLUCOSEon 05-0 Glucose [Mass/Vol] 255 mg/dL Critically high 74-106 [facility] Comment on above: Performed By: #### P OCGLUC #### [facility] [address] [address] Matias Rivas XR CHEST 1 Von 12-07-2020 [...] AMARIS WALKER Date: 2020-12-06 22:04 Normal [facility] INSULINon 10-02-2020 Insulin 16.9 uIU/mL Normal 2.6-24.9 [facility] Comment on above: Performed By: #### P SASC #### [facility] [address] [place], [place] [address] Dr. Forrest Lauren CBC AUTO DIFFon 10-01-2020 BASO # 0.1 103/ul Normal 0.0-0.1 [facility] Comment on above: Performed By: #### C BC #### [facility] [address] [id number] Matias Evelyn Basophils/100 WBC (Bld) 0.6 % Normal 0.2-2.0 [facility] Comment on above: Performed By: #### C BC #### [facility] [address] [id number] Matias Evelyn EO # 0.4 103/ul Normal 0.0-0.7 [facility] Comment on above: Performed By: #### C BC #### [facility] [address] [place] [address] Matias Evelyn Eosinophils/100 WBC (Bld) 4.2 % Normal 0.9-7.0 [facility] Comment on above: Performed By: #### C BC #### [facility] [address] [place], [place] [id number] Matias Evelyn Erythrocyte distribution width (RBC) [Ratio] 13.1 % Normal 11.0-15.0 [facility] Comment on above: Performed By: #### C BC #### [facility] [address] [place] [address] Matias Evelyn Hematocrit (Bld) [Volume fraction] 50.2 % Normal 42.0-54.0 [facility] Comment on above: Performed By: #### C BC #### [facility] [address] [id number] Matias Evelyn Hemoglobin (Bld) [Mass/Vol] 16.6 g/dL Normal 14.0-18.0 [facility] Comment on above: Performed By: #### C BC #### [facility] [address] [address] Matias Evelyn IG # 0.05 10e3/ul Critically high 0.00-0.03 [facility] Comment on above: Performed By: #### C BC #### [facility] [address] [place], [place] [id number] Matias Evelyn IG % 0.6 % Critically high 0.0-0.5 [facility] Comment on above: Performed By: #### C BC #### [facility] [address] [place], [place] [id number] Matias Evelyn LYMPH # 1.9 103/ul Normal 1.2-3.8 [facility] Comment on above: Performed By: #### C BC #### [facility] [address] [place] [address] Matias Rivas Lymphocytes/100 WBC (Bld) 22.2 % Normal 20.5-60.0 [facility] Comment on above: Performed By: #### C BC #### [facility] [address] [place] [address] Matias Rivas MANUAL DIFF REQ NO Normal [facility] Comment on above: Performed By: #### C BC #### [facility] [address] [place] [address] Matiaswali Rivas MCH (RBC) [Entitic mass] 29.4 pg Normal 25.9-34.0 [facility] Comment on above: Performed By: #### C BC #### [facility] [address] [place] [address] Matiaswali Rivas MCHC (RBC) [Mass/Vol] 33.1 g/dL Normal 29.9-35.2 [facility] Comment on above: Performed By: #### C BC #### [facility] [address] [place] [address] Matias Evelyn MCV (RBC) [Entitic vol] 88.8 fL Normal 80.0-94.0 [facility] Comment on above: Performed By: #### C BC #### [facility] [address] [place] [address] Matias Evelyn MONO # 0.7 103/ul Normal 0.3-0.8 [facility] Comment on above: Performed By: #### C BC #### [facility] [address] [place], [place] [address] Matiaswali Rodasen Monocytes/100 WBC (Bld) 7.7 % Normal 1.7-12.0 [facility] Comment on above: Performed By: #### C BC #### [facility] [address] [place], [place] [id number] Matiaswali Rodasen NEUT # 5.7 103/ul Normal 1.4-6.5 [facility] Comment on above: Performed By: #### C BC #### [facility] [address] [place], [place] [id number] Matias Rivas Neutrophils/100 WBC (Bld) 64.7 % Normal 43.0-75.0 [facility] Comment on above: Performed By: #### C BC #### [facility] [address] [place], [place] [id number] Matias Rivas Platelet mean volume (Bld) [Entitic vol] 10.4 fL Normal 9.5-13.5 [facility] Comment on above: Performed By: #### C BC #### [facility] [address] [place], [place] [id number] Matias Evelyn PLT 243 103/ul Normal 150-450 [facility] Comment on above: Performed By: #### C BC #### [facility] [address] [place], [place] [id number] Matias Evelyn RBC 5.65 106/ul Normal 4.70-6.10 [facility] Comment on above: Performed By: #### C BC #### [facility] [address] [address] [place], [place] [id number] Matias Evelyn WBC 8.7 103/ul Normal 4.0-11.0 [facility] Comment on above: Performed By: #### C BC #### [facility] [address] [place], [place] [id number] Matias Rivas FREE THYROXINE INDEX T7on FTI 2.11 Normal [facility] Comment on above: Performed By: #### U TARIK, CMP, T7, PSASC, TSH, LIPID #### [facility] [address] [place], [place] [id number] Matias Rivas T3U 34.0 % Normal 23.5-40.5 [facility] Comment on above: Performed By: #### U TARIK, CMP, T7, PSASC, TSH, LIPID #### [facility] [address] [place], [place] [address] Matias Rivas T4 [Mass/Vol] 6.20 ug/dL Normal 5.53-11.00 [facility] Comment on above: Performed By: #### U TARIK, CMP, T7, PSASC, TSH, LIPID #### [facility] [address] [place], [place] [id number] Matias Rivas GLYCOHEMOGLOBIN A1Con 2020 ADA RECOMMENDATION ADA THERAPEUTIC TARGET 6.0 - 7.0 ACTION SUGGESTED > 7.0 Normal [facility] Comment on above: Performed By: #### A 1C #### [facility] [address] [place] [address] Matias Rivas Glucose [Mass/Vol] 266 mg/dL Normal [facility] Comment on above: Performed By: #### A 1C #### [facility] [address] [place] [address] Matias Rivas HbA1c (Bld) [Mass fraction] 10.9 % Critically high <=6.0 [facility] Comment on above: Performed By: #### A 1C #### [facility] [address] [place], [place] [id number] Matias Rivas LIPID PROFILEon 10-01-2020 CHOL-HDL RATIO NORM SEE BELOW Normal [facility] Comment on above: Result Comment: 3.3 - 4.4 LOW RISK 4.4 - 7.1 AVERAGE RISK 7.1 - 11.0 MODERATE RISK >11.0 HIGH RISK Performed By: #### P SASC #### [facility] [address] [place] [address] Dr. Forrest Lauren Cholesterol [Mass/Vol] 110 mg/dL Normal <=200 [facility] Comment on above: Performed By: #### P SASC #### [facility] [address] [place] [address] Dr. Forrest Lauren Cholesterol in HDL [Mass/Vol] 36 mg/dL Normal [facility] Comment on above: Performed By: #### P SASC #### [facility] [address] [place] [address] [address] Forrest Lauren Cholesterol in LDL [Mass/Vol] 36.2 mg/dL Normal [facility] Comment on above: Performed By: #### P SASC #### [facility] [address] [place] [address] [address] Forrest Lauren Cholesterol.total /Cholesterol in HDL [Mass ratio] 3.1 {ratio} Normal [facility] Comment on above: Performed By: #### P SASC #### [facility] [address] [place] [address] [address] Forrest Lauren HDL NORMAL > or = 60 mg/dl - LO W CARDIOVASCULAR RISK <40 mg/dl - HIGH CARDIOVASCULAR RISK Normal [facility] Comment on above: Performed By: #### P SASC #### [facility] [address] [place] [address] [address] Forrest Lauren LDL CALC NORMAL SEE BELOW Normal [facility] Comment on above: Result Comment: <100 mg/dl OPTIMAL 100 - 129 mg/dl NEAR OR ABOVE OPTIMAL 130 - 159 mg/dl BORDERLINE HIGH 160 - 189 mg/dl HIGH >190 mg/dl VERY HIGH Performed By: #### P SASC #### [facility] [address] [address] [address] Forrest Lauren Triglyceride [Mass/Vol] 189 mg/dL Critically high <=150 [facility] Comment on above: Performed By: #### P SASC #### [facility] [address] [address] [address] Forrest Lauren VLDL CALC 37.8 mg/dL Normal [facility] Comment on above: Performed By: #### P SASC #### [facility] [address] [address] [address] Forrest Lauren PROF 14(COMP METB)on 021 Albumin [Mass/Vol] 4.1 g/dL Normal 3.5-5.0 [facility] Comment on above: Performed By: #### U TARIK, CMP, T7, PSASC, TSH, LIPID #### [facility] [address] [id number] Matias Evelyn Albumin/Globulin [Mass ratio] 1.2 {ratio} Normal [facility] Comment on above: Performed By: #### U TARIK, CMP, T7, PSASC, TSH, LIPID #### [facility] [address] [address] Matias Evelyn ALP [Catalytic activity/Vol] 80 U/L Normal 38-126 [facility] Comment on above: Performed By: #### U TARIK, CMP, T7, PSASC, TSH, LIPID #### [facility] [address] [place] [address] Matias Evelyn ALT [Catalytic activity/Vol] 42 U/L Normal 21-72 [facility] Comment on above: Performed By: #### U TARIK, CMP, T7, PSASC, TSH, LIPID #### [facility] [address] [place] [address] Matias Evelyn Anion gap [Moles/Vol] 12.3 mmol/L Normal [facility] Comment on above: Performed By: #### U TARIK, CMP, T7, PSASC, TSH, LIPID #### [facility] [address] [place] [address] Matias Evelyn AST [Catalytic activity/Vol] 24 U/L Normal 17-59 [facility] Comment on above: Performed By: #### U TARIK, CMP, T7, PSASC, TSH, LIPID #### [facility] [address] [place] [address] Matias Evelyn Bilirubin [Mass/Vol] 1.3 mg/dL Normal 0.2-1.3 [facility] Comment on above: Performed By: #### U TARIK, CMP, T7, PSASC, TSH, LIPID #### [facility] [address] [place] [address] Matias Evelyn Calcium [Mass/Vol] 9.3 mg/dL Normal 8.4-10.2 [facility] Comment on above: Performed By: #### U TARIK, CMP, T7, PSASC, TSH, LIPID #### [facility] [address] [place] [address] Matias Evelyn Chloride [Moles/Vol] 103 mmol/L Normal 98-107 [facility] Comment on above: Performed By: #### U TARIK, CMP, T7, PSASC, TSH, LIPID #### [facility] [address] [address] Matias Evelyn CO2 [Moles/Vol] 30.0 mmol/L Normal 22.0-30.0 [facility] Comment on above: Performed By: #### U TARIK, CMP, T7, PSASC, TSH, LIPID #### [facility] [address] [address] Matias Evelyn Creatinine [Mass/Vol] 1.20 mg/dL Normal 0.66-1.25 [facility] Comment on above: Performed By: #### U TARIK, CMP, T7, PSASC, TSH, LIPID #### [facility] [address] [place] [address] Matias Evelyn EGFR-AF ENGLISH >60 Normal >=60 [facility] Comment on above: Performed By: #### U TARIK, CMP, T7, PSASC, TSH, LIPID #### [facility] [address] [place] [address] Matias Evelyn EGFR-NON AF ENGLISH >60 Normal >=60 [facility] Comment on above: Performed By: #### U TARIK, CMP, T7, PSASC, TSH, LIPID #### [facility] [address] [place] [address] Matias Evelyn Globulin (S) [Mass/Vol] 3.5 g/dL Normal [facility] Comment on above: Performed By: #### U TARIK, CMP, T7, PSASC, TSH, LIPID #### [facility] [address] [address] Matias Evelyn Glucose [Mass/Vol] 269 mg/dL Critically high 74-106 [facility] Comment on above: Performed By: #### U TARIK, CMP, T7, PSASC, TSH, LIPID #### [facility] [address] [place] [address] Matias Evelyn Potassium [Moles/Vol] 4.3 mmol/L Normal 3.4-5.0 [facility] Comment on above: Performed By: #### U TARIK, CMP, T7, PSASC, TSH, LIPID #### [facility] [address] [place] [address] Matias Evelyn Protein [Mass/Vol] 7.6 g/dL Normal 6.1-8.2 [facility] Comment on above: Performed By: #### U TARIK, CMP, T7, PSASC, TSH, LIPID #### [facility] [address] [place] [address] Matias Evelyn Sodium [Moles/Vol] 141 mmol/L Normal 137-145 [facility] Comment on above: Performed By: #### U TARIK, CMP, T7, PSASC, TSH, LIPID #### [facility] [address] [place] [address] Matias Evelyn Urea nitrogen [Mass/Vol] 17.0 mg/dL Normal 9.0-20.0 [facility] Comment on above: Performed By: #### U TARIK, CMP, T7, PSASC, TSH, LIPID #### [facility] [address] [place] [address] Matias Evelyn Urea nitrogen/Creatini ne [Mass ratio] 14.2 mg/mg Normal [facility] Comment on above: Performed By: #### U TARIK, CMP, T7, PSASC, TSH, LIPID #### [facility] [address] [place] [address] Matias Evelyn TSHon 10-01-2020 TSH 1.574 uIU/mL Normal 0.470-4.68 0 [facility] Comment on above: Performed By: #### P SASC #### [facility] [address] [place] [address] Dr. Forrest Lauren TSH RANGE SEE BELOW Normal [facility] Comment on above: Result Comment: <0.3 4 UIU/ml HYPERTHYROID 0.34-5.60 UIU/ml EUTHYROID >5.60 UIU/ml HYPOTHYROID Performed By: #### P SASC #### [facility] [address] [place] [address] Dr. Forrest Lauren URIC ACID SERUMon 10-01-2020 Urate [Mass/Vol] 4.8 mg/dL Normal 3.5-8.5 [facility] Comment on above: Performed By: #### P [facility] #### [facility] [address] [place], [place] [address] Dr. Forrest Lauren Cardiovascular Lab Reporton 08-03-2017 Cardiovascular Lab Report [facility]: [id number] Physician: Jerod Miller M.D.Medicine Service Date: 2017Division of Birthdate: 1955ardiology Room #: [facility] [id number] [place], [place] [address]Jbnsr Fax Cardiovascular Laboratory ReportINDICATION: Hoang Tran is [...] the right internal jugular vein and a 6-Uzbek x 11cm sheath was placed. A 6-Uzbek Griffith catheter was used for right heartcatheterization with measurement of pressures and calculation of cardiacoutput using the estimated Luke method. Griffith catheter was removed.Using ultrasound guidance and micropuncture technique, access was obtainedin the left radial artery and a 6-Uzbek x 11 cm Hydrophilic sheath wasadvanced. Verapamil [...] 08/02/2017/02:42 P/Jerod Manuel M.D.Date Trans: 08/03/2017 11:29 A/[id number]: Yfn Mata D.O. [address] [place] [address] A [facility] [address] Normal [facility] Vital Signs Date Time Vital Sign Value Performing Clinician Jose fairchild 01-21-2024 11:44-0400 Blood Pressure Location Moody POP [facility] 01-21-2024 11:44-0400 Diastolic blood pressure 72 mm[Hg] Moody POP [facility] 01-21-2024 11:44-0400 Heart rate 70 /min Moody POP [facility] 01-21-2024 11:44-0400 Respiratory rate 16 /min Moody POP [facility] 01-21-2024 11:44-0400 Systolic blood pressure 108 mm[Hg] [facility] Encounters Encounter Date Encounter Type Care Provider Facility Start: 06-09-2024 ambulatory Moody POP Facili ty:[facility] Start: 03-28-2024 End: 03-28-2024 ambulatory [facility] Start: 02-25-2024 End: 02-25-2024 ambulatory [facility] Start: 02-11-2024 End: 02-11-2024 ambulatory Moody POP Facility:[id number] Start: 01-21-2024 End: 01-21-2024 ambulatory Moody POP Facility:[facility] Start: 01-21-2024 End: 01-21-2024 Patient encounter procedure Moody POP [facility] Start: 09-12-2023 ambulatory Moody POP Facility :[facility] [place] Start: 08-26-2021 End: 08-26-2021 ambulatory AILIN BAKER Facility:[facility] Start: 02-23-2021 ambulatory AILIN BAKER Facility:[facility] Start: 12-06-2020 End: 12-07-2020 ambulatory ILAN TODD Facility:[facility] Start: 10-07-2020 Encounter for genera l adult medical examination without abnormal findings AILIN BAKER [facility] Start: 10-01-2020 End: 10-02-2020 ambulatory AILIN BAKER Facility:[facility] Start: 10-01-2020 End: 10-02-2020 Encounter for general adult medical examination without abnormal findings AILIN BAKER Facility: Start: 2017 End: 08-03-2017 Ambulatory PROVIDER UNKNOWN Facility:[facility] Start: 07-24-2017 End: 07-25-2017 Ambulatory DEFAULT PHYSICIAN Facility:[facility] Start: 07-19-2017 End: 07-20-2017 Ambulatory DEFAULT PHYSICIAN Facility:[facility] Start: 06-18-2017 End: 06-19-2017 Ambulatory DEFAULT PHYSICIAN Facility:[facility] Procedures Date Procedure Procedure Detail Performing Clinician Start: 08-26-2021 PSA screening AILIN KHAN Comment on above: Performed By: #### P SASC #### [facility] [address] [place] [address] [address] Forrest Lauren Start: 10-01-2020 PSA screening AILIN KHAN Comment on above: Performed By: #### U TARIK, CMP, T7, PSASC, TSH, LIPID #### [facility] [address] [place], [place] [address] Matias Rivas Start: 08-06-2013 Colonoscopy Moody ASHER Start: 08-06-2004 Neoplasm of brain (disorder) [facility] POP Back structure, excl uding neck (body structure) [facility] Tonsillectomy Moody POP Payers Date Payer Category Payer Private Health Insurance [id number] 1958 [facility] [id number] 1958 Medicare [id number] 1958 Self-pay 1955 Unknown [id number] 2.16.84 [id number] 1956 Unknown [id number] 2.16.84 [id number] 1956 Unknown [id number] 2.16.84 [id number] 1956 Unknown [id number] 2.16.84 [id number] 1956 Unknown [id number] 2.16.8 [id number] 1956 Unknown [id number] 2.16.8 [id number] 1956 Unknown [id number] 2.16.8 [id number] Unknown Social History Date Type Detail Facility Start: 01-21-2024 Tobacco smoking status Never s moked tobacco (finding) [facility] Tobacco smoking status Never [facility] Sex Assigned At Male [facility] Functional Status Date Assessment Result Facility 01-21-2024 Functional Status N/A [facility] Progress note 03-28-2024 Note Date & Type Note Facility 03-28-2024 Note [facility] Subjective Hoang Tran is a 68 y.o. year old male patient being seen for 1 mo follow up hypertension, SOB, and valve disorder. Amlodipine was reduced at last visit due to hypotension and lightheadedness. He states this has helped. He had echo and routine labs w/ lipid profile a few weeks ago. Says his SOB is intermittent and usually occurs with rest. Denies chest pain. Patient Active Problem List Diagnosis ENE (obstructive [...] and is currently on metformin and Januvia. He was on Jardiance and had to stop it due to excessive urination. At last visit of 02/25/2024 I reduced amlodipine due to dizziness and lightheadedness and this has helped. Today he reports that his symptoms of shortness of breath are mild to moderate. He just feels lack of energy and tired. No leg edema. No chest pain. No palpitations. Review of Systems Constitutional: Positive for decreased appetite (improving), malaise/fatigue and weight loss (8# since 02/25/2024). HENT: Positive for hearing loss. Respiratory: Positive for shortness of breath. Neurological: Positive for light-headedness (improving) and loss of balance. All other systems reviewed and are negative. Objective Visit Vitals BP 107/57 (BP Location: Left arm, Patient Position: Sitting) Pulse 88 Ht 1.88 m (6' 2 ) Wt 88 kg (194 lb) SpO2 96% BMI 24.91 kg/m??? Smoking Status Never BSA 2.14 m??? Physical Exam Constitutional: Appearance: He is [...] Jardiance [Empagliflozin] Other Medications Current Outpatient Medications: carvedilol (Coreg) 6.25 mg tablet, Take 6.25 mg by mouth with breakfast and with evening meal., Disp: , Rfl: Flomax 0.4 mg 24 hr capsule, Take 0.4 mg by mouth in the morning., Disp: , Rfl: insulin glargine (Lantus) 100 unit/mL injection vial, Inject under the skin at bedtime., Disp: , Rfl: Januvia 100 mg tablet, Take 100 mg by mouth in the morning., Disp: , Rfl: losartan (Cozaar) 100 mg tablet, Take 100 mg by mouth 1 (one) time each day., Disp: , Rfl: metFORMIN (Glucophage) 1,000 mg tablet, Take 1 tablet twice a day by oral route for 30 days., Disp: , Rfl: atorvastatin (Lipitor) 10 mg tablet, Take 1 tablet (10 mg) by mouth in the morning., Disp: 90 tablet, Rfl: 3 Recent Labs Blood testing 03/22/2024: Hemoglobin 12.8, hematocrit 40.9, platelets 355, potassium 4.6, BUN 12, creatinine 0.99, EGFR more than 60, hemoglobin A1c 12.2%, ALT and alkaline phosphatase mildly elevated, triglycerides 91, cholesterol 86, LDL 26, HDL 42. TSH (more content not included)... [facility] Progress note 02-25-2024 Note Date & Type Note Facility 02-25-2024 Note [facility] Subjective Hoang Tran is a 68 [...] platelets 256, potassium (more content not included)... [facility] Clinical Note 01-21-2024 Note Date & [...] neoplasm of prostat (more content not included)... [facility] Comment on above: Result Comment: [...] urethra. Follow these instructions at home: Take dnty-doh-ktgbpiw and prescription medicines only as told by [...] provider. Document Revised: 02/08/2022 Document Reviewed: 02/08/2022 [employer] Patient Education 2022 [employer]. Follow Up Care 09/13/2023 09:26:56 With:DONN ELLIS, Moody Aranda, FREDDY Address: [facility] [address], [place] [address]- When: Unknown [facility] Evaluation + Plan note Note Date & Type Note Facility Evaluation + Plan note No data available for this section [facility] Progress note Note Date & Type Note Facility Progress note No data available for this section [facility] Summary Purpose Family History No Family History [...] section and content) DATE CREATED AUTHOR 01/29/2018 [facility] DATE CREATED AUTHOR AUTHOR'S ORGANIZ ATION 09/01/2021 [facility] DATE CREATED AUTHOR AUTHOR'S ORGANIZ ATION 03/12/2024 [facility] DATE CREATED AUTHOR AUTHOR'S ORGANIZ ATION 03/30/2024 [facility] [place] [facility] Patient Care team informatio n (unrecognized section and content) Personnel Name: AILIN GREEN CNP Address: Address: [facility] [place] [address]- FOR RECORDS PERTAINING TO PATIENTS WHO ARE [...] BE BASED ON THE PRIMARY CLINICAL RECORDS. [facility] [employer] [facility]. provides no warranty or guarantee of the accuracy or completeness of information in this document.
[2024-04-11] MEDS: LIDOCAINE HCL 10 ML, SODIUM BICARBONATE 1 MEQ INJ (09:50)
[2024-04-11 11:15] VITALS: BMI 25.2
== END 2024-04-11 10:20 | disposition home or self-care (01) ==
LOC: US 08:45
PROVIDERS: Radiology Diagnostic Radiology; PCP Nurse Practitioner Family; Visit Provider Nurse Practitioner Family
DX: R59.0 Localized enlarged lymph nodes (principal); D47.Z9 Other specified neoplasms of uncertain behavior of lymphoid, hematopoietic and related tissue
CPT/HCPCS: 38505; 88300; 88305

== ENCOUNTER 2024-04-18 09:53 | Outpatient (OUT) | payer MEDICARE, SELFPAY ==
--- OUTSIDE RECORDS SUMMARY | 2024-04-18 10:07 | XMS_ITS | CCD ---
Author Organization [facility] Team Providers Care Steward/Stewardess Wine Name Role Phone PHYSICIAN, DEFAULT Unavailable Unavailable PHYSICIAN, DEFAULT Unavailable Unavailable PHYSICIAN, DEFAULT Unavailable Unavailable PHYSICIAN, DEFAULT Unavailable Unavailable PHYSICIAN, DEFAULT Unavailable Unavailable PHYSICIAN, DEFAULT Unavailable Unavailable UNKNOWN, PROVIDER Unavailable Unavailable UNKNOWN, PROVIDER Unavailable Unavailable YFN MATA Unavailable Unavailable ESPERANZA, YFN Unavailable Unavailable RAY, AILIN Admitting Unavailable RAY, AILIN Attending Unavailable RAY, AILIN Primary Care Unavailable RAY, AILIN Admitting Unavailable RAY, AILIN Attending Unavailable RAY, AILIN Consulting Unavailable RAY, AILIN Primary Care Unavailable AILIN BAKER Attending Unavailable YFN MATA Primary Care Unavailable RAY, AILIN Consulting Unavailable RAY, AILIN Admitting Unavailable ILAN TODD Attending Unavailable ILAN TODD Consulting Unavailable ILAN TODD Admitting Unavailable RAY, AILIN Primary Care Unavailable AMARIS WALKER Consulting Unavailable AILIN GREEN Primary Care Physician [phone] Moody POP Attending Unavailable Moody POP Attending Unavailable AILIN GREEN Referring Unavailable Moody POP Attending Unavailable JEROD MANUEL Attending Unavailable JEROD MANUEL Attending Unavailable DO González Moon Primary Care Provider MD Hoang Strange Attending Provider González Moon Primary Care Unavailable Hoang Strange Attending Unavailable Hoang Strange Admitting Unavailable Allergies Allergy Classification Reported Allergen(s) Allergy Type Date of Onset Reaction(s) Facility (2 sources) No Known Allergies; 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: [No Known Allergies] Propensity to adverse reactions (disorder) 7 [facility] Repository (1 source) No Known Medication Allergies; 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: [No Known Medication Allergies] Propensity to adverse reactions (disorder) [facility] Repository (1 source) empagliflozin; 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: [EMPAGLIFLOZIN] Drug Allergy 4 [facility] Repository Medications Current Medications Medication Drug [...] completed, # 2 tab(s), Refills(s) 0, Pharmacy: [facility], 187, cm, 01/21/24 11:48:00 EDT, Height/Length [...] / UNK(Unknown) Onset: 2017 Unclassified (1 source) [facility] (current) use of oral hypoglycemic drugs; 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 DRUGS] Onset: 2017 Unclassified (1 source) Patient encounter status 01-21-2024 Viral infection (1 source) COVID-19; 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: [COVID-19] Onset: 12-08-2020 Past or Other Problems Problem Classification Problem Date Documented Da te Episodic/Chronic Other 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 (1 source) 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; 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] Onset: 2017 Episodic Other lower respiratory disease (3 sources) Cough; 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: [COUGH] Onset: 12-06-2020 Episodic Results Test Name Value Interpretation Reference Range Facility Office Visiton 03-28-2024 Follow-up visit [id number] Allen Tran 1955 M Date Provider Department Center 03/28/2024 JEROD BANKS ELIAS Rosario Family History Problem Relation Age of Onset Coronary artery disease Mother Family Status - Relation Status Age at Mother Level of Service:82370 PA OFFICE/OUTPATIENT ESTABLISHED MOD MDM 30 MIN Normal [facility] Office Visiton 02-25-2024 Follow-up visit [id number] Allen Tran carol Young 1955 M Date Provider Department Center 02/25/2024 JEROD BANKS ELIAS [facility] Family History Problem Relation Age of Onset Coronary artery disease Mother Family Status - Relation Status Age at Mother Level of Service:47984 PA OFFICE/OUTPATIENT NEW MODERATE MDM 45 MINUTES Normal [facility] Insurance Correspondenceon 0 01-30-2024 Insurance Correspondence [id number]#[id number] Normal [facility] Consent for Procedure/Surger yon 01-22-2024 Consent for Procedure/Surgery [id number]#[id number] Normal [facility] Physician Referralon 024 Physician Referral [id number]#[id number] Normal [facility] Screenson 01-22-2024 Screens [id number]#1.00TIFF Normal [facility] Ambulatory Visit Summaryon 0 01-21-2024 Ambulatory [...] Jimenez When: Where: [facility] [address] [place] [address]- Medications What When Instructions Unchanged amlodipine (amLODIPine [...] urine (ur (more content not included)... Normal [facility] Patient Educationon 01-21-20 Patient Education Urology [...] Follow these instructions at home: ? Take [id number] and prescription medicines only as told by [...] the medicine (more content not included)... Normal [facility] INSULINon 08-27-2021 Insulin 19.2 uIU/mL Normal 2.6-24.9 [facility] Comment on above: Performed By: #### I NSULIN #### [facility] [address] [address] [address] Forrest Lauren CBC AUTO DIFFon 08-26-2021 BASO # 0.1 103/ul Normal 0.0-0.1 [facility] Comment on above: Performed By: #### P SASC #### [facility] [address] [place] [address] Dr. Forrest Lauren Basophils/100 WBC (Bld) 0.8 % Normal 0.2-2.0 [facility] Comment on above: Performed By: #### P SASC #### [facility] [address] [place] [address] Dr. Forrest Lauren EO # 0.4 103/ul Normal 0.0-0.7 [facility] Comment on above: Performed By: #### P SASC #### [facility] [address] [place] [address] Dr. Forrest Lauren Eosinophils/100 WBC (Bld) 4.8 % Normal 0.9-7.0 [facility] Comment on above: Performed By: #### P SASC #### [facility] [address] [place] [address] Dr. Forrest Lauren Erythrocyte distribution width (RBC) [Ratio] 12.7 % Normal 11.0-15.0 [facility] Comment on above: Performed By: #### P SASC #### [facility] [address] [place] [address] Dr. Forrest Lauren Hematocrit (Bld) [Volume fraction] 48.3 % Normal 42.0-54.0 [facility] Comment on above: Performed By: #### P SASC #### [facility] [address] [place] [address] Dr. Forrest Lauren Hemoglobin (Bld) [Mass/Vol] 16.4 g/dL Normal 14.0-18.0 [facility] Comment on above: Performed By: #### P SASC #### [facility] [address] [place] [address] Dr. Forrest Lauren IG # 0.05 10e3/ul Critically high 0.00-0.03 [facility] Comment on above: Performed By: #### P SASC #### [facility] [address] [place] [address] Dr. Forrest Lauren IG % 0.6 % Critically high 0.0-0.5 [facility] Comment on above: Performed By: #### P SASC #### [facility] [address] [place] [address] Dr. Forrest Lauren LYMPH # 2.0 103/ul Normal 1.2-3.8 [facility] Comment on above: Performed By: #### P SASC #### [facility] [address] [place] [address] Dr. Forrest Lauren Lymphocytes/100 WBC (Bld) 22.6 % Normal 20.5-60.0 [facility] Comment on above: Performed By: #### P SASC #### [facility] [address] [place] [address] Dr. Forrest Lauren MANUAL DIFF REQ NO Normal [facility] Comment on above: Performed By: #### P SASC #### [facility] [address] [place] [address] Dr. Forrest Lauren MCH (RBC) [Entitic mass] 29.8 pg Normal 25.9-34.0 [facility] Comment on above: Performed By: #### P SASC #### [facility] [address] [place] [address] Dr. Forrest Lauren MCHC (RBC) [Mass/Vol] 34.0 g/dL Normal 29.9-35.2 [facility] Comment on above: Performed By: #### P SASC #### [facility] [address] [place] [address] Dr. Forrest Lauren MCV (RBC) [Entitic vol] 87.8 fL Normal 80.0-94.0 [facility] Comment on above: Performed By: #### P SASC #### [facility] [address] [place] [address] Dr. Forrest Lauren MONO # 0.7 103/ul Normal 0.3-0.8 [facility] Comment on above: Performed By: #### P SASC #### [facility] [address] [place] [address] Dr. Forrest Lauren Monocytes/100 WBC (Bld) 8.0 % Normal 1.7-12.0 [facility] Comment on above: Performed By: #### P SASC #### [facility] [address] [address] [address] Forrest Lauren NEUT # 5.7 103/ul Normal 1.4-6.5 [facility] Comment on above: Performed By: #### P SASC #### [facility] [address] [address] [address] Forrest Lauren Neutrophils/100 WBC (Bld) 63.2 % Normal 43.0-75.0 [facility] Comment on above: Performed By: #### P SASC #### [facility] [address] [place] [address] Dr. Forrest Lauren Platelet mean volume (Bld) [Entitic vol] 9.7 fL Normal 9.5-13.5 [facility] Comment on above: Performed By: #### P SASC #### [facility] [address] [address] [address] Forrest Lauren PLT 242 103/ul Normal 150-450 [facility] Comment on above: Performed By: #### P SASC #### [facility] [address] [place] [address] Dr. Forrest Lauren RBC 5.50 106/ul Normal 4.70-6.10 [facility] Comment on above: Performed By: #### P SASC #### [facility] [address] [place] [address] Dr. Forrest Lauren WBC 9.0 103/ul Normal 4.0-11.0 [facility] Comment on above: Performed By: #### P SASC #### [facility] [address] [address] [address] Forrest Lauren GLYCOHEMOGLOBIN A1Con 2021 ADA RECOMMENDATION ADA THERAPEUTIC TARGET 6.0 - 7.0 ACTION SUGGESTED > 7.0 Normal [facility] Comment on above: Performed By: #### A 1C #### [facility] [address] [place] [address] Dr. Forrest Lauren Glucose [Mass/Vol] 194 mg/dL Normal [facility] Comment on above: Performed By: #### A 1C #### [facility] [address] [address] [address] Forrest Lauren HbA1c (Bld) [Mass fraction] 8.4 % Critically high <=6.0 [facility] Comment on above: Performed By: #### A 1C #### [facility] [address] [address] [address] Forrest Lauren LIPID PROFILEon 08-26-2021 CHOL-HDL RATIO NORM SEE BELOW Normal [facility] Comment on above: Result Comment: 3.3 - 4.4 LOW RISK 4.4 - 7.1 AVERAGE RISK 7.1 - 11.0 MODERATE RISK >11.0 HIGH RISK Performed By: #### P SASC #### [facility] [address] [place] [address] Dr. Forrest Lauren Cholesterol [Mass/Vol] 117 mg/dL Normal <=200 [facility] Comment on above: Performed By: #### P SASC #### [facility] [address] [address] [address] Forrest Lauren Cholesterol in HDL [Mass/Vol] 43 mg/dL Normal [facility] Comment on above: Performed By: #### P SASC #### [facility] [address] [place] [address] Dr. Forrest Lauren Cholesterol in LDL [Mass/Vol] 45.6 mg/dL Normal [facility] Comment on above: Performed By: #### P SASC #### [facility] [address] [place] [address] Dr. Forrest Laruen Cholesterol.total /Cholesterol in HDL [Mass ratio] 2.7 {ratio} Normal [facility] Comment on above: Performed By: #### P SASC #### [facility] [address] [place] [address] Dr. Forrest Lauren HDL NORMAL > or = 60 mg/dl - LO W CARDIOVASCULAR RISK <40 mg/dl - HIGH CARDIOVASCULAR RISK Normal [facility] Comment on above: Performed By: #### P SASC #### [facility] [address] [address] [address] Forrest Lauren LDL CALC NORMAL SEE BELOW Normal [facility] Comment on above: Result Comment: <100 mg/dl OPTIMAL 100 - 129 mg/dl NEAR OR ABOVE OPTIMAL 130 - 159 mg/dl BORDERLINE HIGH 160 - 189 mg/dl HIGH >190 mg/dl VERY HIGH Performed By: #### P SASC #### [facility] [address] [address] [address] Forrest Lauren Triglyceride [Mass/Vol] 142 mg/dL Normal <=150 [facility] Comment on above: Performed By: #### P SASC #### [facility] [address] [address] [address] Forrest Lauren VLDL CALC 28.4 mg/dL Normal [facility] Comment on above: Performed By: #### P SASC #### [facility] [address] [place] [address] Dr. Forrest Lauren PROF 14(COMP METB)on 022 Albumin [Mass/Vol] 4.1 g/dL Normal 3.5-5.0 [facility] Comment on above: Performed By: #### P SASC #### [facility] [address] [address] [address] Forrest Lauren Albumin/Globulin [Mass ratio] 1.2 {ratio} Normal [facility] Comment on above: Performed By: #### P SASC #### [facility] [address] [address] [address] Forrest Lauren ALP [Catalytic activity/Vol] 82 U/L Normal 38-126 [facility] Comment on above: Performed By: #### P SASC #### [facility] [address] [address] [address] Forrest Lauren ALT [Catalytic activity/Vol] 38 U/L Normal 21-72 [facility] Comment on above: Performed By: #### P SASC #### [facility] [address] [place] [address] Dr. Forrest Lauren Anion gap [Moles/Vol] 12.7 mmol/L Normal [facility] Comment on above: Performed By: #### P SASC #### [facility] [address] [address] [address] Forrest Lauren AST [Catalytic activity/Vol] 18 U/L Normal 17-59 [facility] Comment on above: Performed By: #### P SASC #### [facility] [address] [address] [address] Forrest Lauren Bilirubin [Mass/Vol] 1.2 mg/dL Normal 0.2-1.3 [facility] Comment on above: Performed By: #### P SASC #### [facility] [address] [address] [address] Forrest Lauren Calcium [Mass/Vol] 9.7 mg/dL Normal 8.4-10.2 [facility] Comment on above: Performed By: #### P SASC #### [facility] [address] [address] [address] Forrest Lauren Chloride [Moles/Vol] 102 mmol/L Normal 98-107 [facility] Comment on above: Performed By: #### P SASC #### [facility] [address] [address] [address] Forrest Lauren CO2 [Moles/Vol] 30.6 mmol/L Critically high 22.0-30.0 [facility] Comment on above: Performed By: #### P SASC #### [facility] [address] [address] [address] Forrest Lauren Creatinine [Mass/Vol] 1.09 mg/dL Normal 0.66-1.25 [facility] Comment on above: Performed By: #### P SASC #### [facility] [address] [address] [address] Forrest Lauren EGFR-AF CYMRAES >60 Normal >=60 [facility] Comment on above: Performed By: #### P SASC #### [facility] [address] [address] [address] Forrest Lauren EGFR-NON AF CYMRAES >60 Normal >=60 [facility] Comment on above: Performed By: #### P SASC #### [facility] [address] [address] [address] Forrest Lauren Globulin (S) [Mass/Vol] 3.4 g/dL Normal [facility] Comment on above: Performed By: #### P SASC #### [facility] [address] [address] [address] Forrest Lauren Glucose [Mass/Vol] 238 mg/dL Critically high 74-106 [facility] Comment on above: Performed By: #### P SASC #### [facility] [address] [address] [address] Forrest Lauren Potassium [Moles/Vol] 4.3 mmol/L Normal 3.4-5.0 [facility] Comment on above: Performed By: #### P SASC #### [facility] [address] [place] [address] Dr. Forrest Lauren Protein [Mass/Vol] 7.5 g/dL Normal 6.1-8.2 [facility] Comment on above: Performed By: #### P SASC #### [facility] [address] [address] [address] Forrest Lauren Sodium [Moles/Vol] 141 mmol/L Normal 137-145 [facility] Comment on above: Performed By: #### P SASC #### [facility] [address] [address] [address] Forrest Lauren Urea nitrogen [Mass/Vol] 20.0 mg/dL Normal 9.0-20.0 [facility] Comment on above: Performed By: #### P SASC #### [facility] [address] [place] [address] Dr. Forrest Lauren Urea nitrogen/Creatini ne [Mass ratio] 18.3 mg/mg Normal [facility] Comment on above: Performed By: #### P SASC #### [facility] [address] [address] [address] Forrest Lauren URIC ACID SERUMon 08-26-2021 Urate [Mass/Vol] 4.8 mg/dL Normal 3.5-8.5 [facility] Comment on above: Performed By: #### P SASC #### [facility] [address] [place] [address] [address] Forrest Lauren Covid-19 PCR (CVDTBH)on Sample Type Test performed using RT-PCR from a nasopharyngeal collected specimen. Normal [facility] Comment on above: Performed By: #### P [facility] #### [facility] [address] [place] [address] Dr. Forrest Lauren SARS-CoV-2 (COVID-19) RNA MERA+probe Ql (Unsp spec) Detected Abnormal NOT DETECTED [facility] Comment on above: Result Comment: This test is not yet approved or cleared by the [place] FDA. When there are no FDA-approved or cleared tests available, and other criteria are met, FDA can make tests available under an emergency access mechanism called an Emergency Use Authorization (EUA). The EUA for this test is supported by the [place] of Health and Human Service's (HHS's) declaration [...] longer be used). Performed By: #### P [facility] #### [facility] [address] [place] [address] Dr. Forrest Lauren POINT OF CARE GLUCOSEon Glucose [Mass/Vol] 255 mg/dL Critically high 74-106 [facility] Comment on above: Performed By: #### P OCGLUC #### [facility] [address] [place] [address] Matias Rivas XR CHEST 1 Von 12-07-2020 [...] AMARIS WALKER Date: 2020-12-06 22:04 Normal [facility] INSULINon 10-02-2020 Insulin 16.9 uIU/mL Normal 2.6-24.9 [facility] Comment on above: Performed By: #### P SASC #### [facility] [address] [place] [address] Dr. Forrest Lauren CBC AUTO DIFFon 10-01-2020 BASO # 0.1 103/ul Normal 0.0-0.1 [facility] Comment on above: Performed By: #### C BC #### [facility] [address] [place], [place] [id number] Matias Evelyn Basophils/100 WBC (Bld) 0.6 % Normal 0.2-2.0 [facility] Comment on above: Performed By: #### C BC #### [facility] [address] [place] [address] Matias Evelyn EO # 0.4 103/ul Normal 0.0-0.7 [facility] Comment on above: Performed By: #### C BC #### [facility] [address] [place] [address] Matias Evelyn Eosinophils/100 WBC (Bld) 4.2 % Normal 0.9-7.0 [facility] Comment on above: Performed By: #### C BC #### [facility] [address] [place], [place] [id number] Matias Evelyn Erythrocyte distribution width (RBC) [Ratio] 13.1 % Normal 11.0-15.0 [facility] Comment on above: Performed By: #### C BC #### [facility] [address] [place] [address] Matias Evelyn Hematocrit (Bld) [Volume fraction] 50.2 % Normal 42.0-54.0 [facility] Comment on above: Performed By: #### C BC #### [facility] [address] [place] [address] Matias Evelyn Hemoglobin (Bld) [Mass/Vol] 16.6 g/dL Normal 14.0-18.0 [facility] Comment on above: Performed By: #### C BC #### [facility] [address] [id number] Matias Evelyn IG # 0.05 10e3/ul Critically high 0.00-0.03 [facility] Comment on above: Performed By: #### C BC #### [facility] [address] [place], [place] [id number] Matias Evelyn IG % 0.6 % Critically high 0.0-0.5 [facility] Comment on above: Performed By: #### C BC #### [facility] [address] [place] [address] Matias Evelyn LYMPH # 1.9 103/ul Normal 1.2-3.8 [facility] Comment on above: Performed By: #### C BC #### [facility] [address] [place] [address] Matias Rivas Lymphocytes/100 WBC (Bld) 22.2 % Normal 20.5-60.0 [facility] Comment on above: Performed By: #### C BC #### [facility] [address] [place], [place] [id number] Matias Rivas MANUAL DIFF REQ NO Normal [facility] Comment on above: Performed By: #### C BC #### [facility] [address] [place], [place] [id number] Matiaswali Rivas MCH (RBC) [Entitic mass] 29.4 pg Normal 25.9-34.0 [facility] Comment on above: Performed By: #### C BC #### [facility] [address] [place], [place] [id number] Matiaswali Rivas MCHC (RBC) [Mass/Vol] 33.1 g/dL Normal 29.9-35.2 [facility] Comment on above: Performed By: #### C BC #### [facility] [address] [place], [place] [id number] Matias Evelyn MCV (RBC) [Entitic vol] 88.8 fL Normal 80.0-94.0 [facility] Comment on above: Performed By: #### C BC #### [facility] [address] [place], [place] [address] Matias Evelyn MONO # 0.7 103/ul Normal 0.3-0.8 [facility] Comment on above: Performed By: #### C BC #### [facility] [address] [id number] Matiaswali Rodasen Monocytes/100 WBC (Bld) 7.7 % Normal 1.7-12.0 [facility] Comment on above: Performed By: #### C BC #### [facility] [address] [place], [place] [id number] Matias Evelyn NEUT # 5.7 103/ul Normal 1.4-6.5 [facility] Comment on above: Performed By: #### C BC #### [facility] [address] [place], [place] [id number] Matiaswali Rodasen Neutrophils/100 WBC (Bld) 64.7 % Normal 43.0-75.0 [facility] Comment on above: Performed By: #### C BC #### [facility] [address] [place], [place] [id number] Matiaswali Rivas Platelet mean volume (Bld) [Entitic vol] 10.4 fL Normal 9.5-13.5 [facility] Comment on above: Performed By: #### C BC #### [facility] [address] [place], [place] [id number] Matias Evelyn PLT 243 103/ul Normal 150-450 [facility] Comment on above: Performed By: #### C BC #### [facility] [address] [place], [place] [id number] Matias Evelyn RBC 5.65 106/ul Normal 4.70-6.10 [facility] Comment on above: Performed By: #### C BC #### [facility] [facility] [address] [place], [place] [id number] Matias Evelyn WBC 8.7 103/ul Normal 4.0-11.0 [facility] Comment on above: Performed By: #### C BC #### [facility] [address] [place], [place] [id number] Matias Evelyn FREE THYROXINE INDEX T7on FTI 2.11 Normal [facility] Comment on above: Performed By: #### U TARIK, CMP, T7, PSASC, TSH, LIPID #### [facility] [address] [address] Matias Rivas T3U 34.0 % Normal 23.5-40.5 [facility] Comment on above: Performed By: #### U TARIK, CMP, T7, PSASC, TSH, LIPID #### [facility] [address] [address] Matias Rivas T4 [Mass/Vol] 6.20 ug/dL Normal 5.53-11.00 [facility] Comment on above: Performed By: #### U TARIK, CMP, T7, PSASC, TSH, LIPID #### [facility] [address] [address] Matias Rivas GLYCOHEMOGLOBIN A1Con 2020 ADA RECOMMENDATION ADA THERAPEUTIC TARGET 6.0 - 7.0 ACTION SUGGESTED > 7.0 Normal [facility] Comment on above: Performed By: #### A 1C #### [facility] [address] [place] [address] Matias Rivas Glucose [Mass/Vol] 266 mg/dL Normal [facility] Comment on above: Performed By: #### A 1C #### [facility] [address] [place] [address] Matias Rivas HbA1c (Bld) [Mass fraction] 10.9 % Critically high <=6.0 [facility] Comment on above: Performed By: #### A 1C #### [facility] [address] [place] [address] Matias Rivas LIPID PROFILEon 10-01-2020 CHOL-HDL RATIO NORM SEE BELOW Normal [facility] Comment on above: Result Comment: 3.3 - 4.4 LOW RISK 4.4 - 7.1 AVERAGE RISK 7.1 - 11.0 MODERATE RISK >11.0 HIGH RISK Performed By: #### P SASC #### [facility] [address] [address] [address] Forrest Lauren Cholesterol [Mass/Vol] 110 mg/dL Normal <=200 [facility] Comment on above: Performed By: #### P SASC #### [facility] [address] [address] [address] Forrest Lauren Cholesterol in HDL [Mass/Vol] 36 mg/dL Normal [facility] Comment on above: Performed By: #### P SASC #### [facility] [address] [address] [address] Forrest Lauren Cholesterol in LDL [Mass/Vol] 36.2 mg/dL Normal [facility] Comment on above: Performed By: #### P SASC #### [facility] [address] [address] [address] Forrest Lauren Cholesterol.total /Cholesterol in HDL [Mass ratio] 3.1 {ratio} Normal [facility] Comment on above: Performed By: #### P SASC #### [facility] [address] [address] [address] Forrest Lauren HDL NORMAL > or = 60 mg/dl - LO W CARDIOVASCULAR RISK <40 mg/dl - HIGH CARDIOVASCULAR RISK Normal [facility] Comment on above: Performed By: #### P SASC #### [facility] [address] [address] [address] Forrest Lauren LDL CALC NORMAL SEE BELOW Normal [facility] Comment on above: Result Comment: <100 mg/dl OPTIMAL 100 - 129 mg/dl NEAR OR ABOVE OPTIMAL 130 - 159 mg/dl BORDERLINE HIGH 160 - 189 mg/dl HIGH >190 mg/dl VERY HIGH Performed By: #### P SASC #### [facility] [address] [address] [address] Forrest Lauren Triglyceride [Mass/Vol] 189 mg/dL Critically high <=150 [facility] Comment on above: Performed By: #### P SASC #### [facility] [address] [address] [address] Forrest Lauren VLDL CALC 37.8 mg/dL Normal [facility] Comment on above: Performed By: #### P SASC #### [facility] [address] [address] [address] Forrest Lauren PROF 14(COMP METB)on 021 Albumin [Mass/Vol] 4.1 g/dL Normal 3.5-5.0 [facility] Comment on above: Performed By: #### U TARIK, CMP, T7, PSASC, TSH, LIPID #### [facility] [address] [id number] Matias Evelyn Albumin/Globulin [Mass ratio] 1.2 {ratio} Normal [facility] Comment on above: Performed By: #### U TARIK, CMP, T7, PSASC, TSH, LIPID #### [facility] [address] [address] Matias Evelyn ALP [Catalytic activity/Vol] 80 U/L Normal 38-126 [facility] Comment on above: Performed By: #### U TARIK, CMP, T7, PSASC, TSH, LIPID #### [facility] [address] [place] [address] Matias Evelyn ALT [Catalytic activity/Vol] 42 U/L Normal 21-72 [facility] Comment on above: Performed By: #### U TARIK, CMP, T7, PSASC, TSH, LIPID #### [facility] [address] [id number] Matias Evelyn Anion gap [Moles/Vol] 12.3 mmol/L Normal [facility] Comment on above: Performed By: #### U TARIK, CMP, T7, PSASC, TSH, LIPID #### [facility] [address] [id number] Matias Evelyn AST [Catalytic activity/Vol] 24 U/L Normal 17-59 [facility] Comment on above: Performed By: #### U TARIK, CMP, T7, PSASC, TSH, LIPID #### [facility] [address] [id number] Matias Evelyn Bilirubin [Mass/Vol] 1.3 mg/dL Normal 0.2-1.3 [facility] Comment on above: Performed By: #### U TARIK, CMP, T7, PSASC, TSH, LIPID #### [facility] [address] [id number] Matias Evelyn Calcium [Mass/Vol] 9.3 mg/dL Normal 8.4-10.2 [facility] Comment on above: Performed By: #### U TARIK, CMP, T7, PSASC, TSH, LIPID #### [facility] [address] [address] Matias Evelyn Chloride [Moles/Vol] 103 mmol/L Normal 98-107 [facility] Comment on above: Performed By: #### U TARIK, CMP, T7, PSASC, TSH, LIPID #### [facility] [address] [address] Matias Evelyn CO2 [Moles/Vol] 30.0 mmol/L Normal 22.0-30.0 [facility] Comment on above: Performed By: #### U TARIK, CMP, T7, PSASC, TSH, LIPID #### [facility] [address] [place] [address] Matias Evelyn Creatinine [Mass/Vol] 1.20 mg/dL Normal 0.66-1.25 [facility] Comment on above: Performed By: #### U TARIK, CMP, T7, PSASC, TSH, LIPID #### [facility] [address] [place] [address] Matias Evelyn EGFR-AF CYMRAES >60 Normal >=60 [facility] Comment on above: Performed By: #### U TARIK, CMP, T7, PSASC, TSH, LIPID #### [facility] [address] [place] [address] Matias Evelyn EGFR-NON AF CYMRAES >60 Normal >=60 [facility] Comment on above: Performed By: #### U TARIK, CMP, T7, PSASC, TSH, LIPID #### [facility] [address] [place] [address] Matias Evelyn Globulin (S) [Mass/Vol] 3.5 g/dL Normal [facility] Comment on above: Performed By: #### U TARIK, CMP, T7, PSASC, TSH, LIPID #### [facility] [address] [place] [address] Matias Evelyn Glucose [Mass/Vol] 269 mg/dL Critically high 74-106 [facility] Comment on above: Performed By: #### U TARIK, CMP, T7, PSASC, TSH, LIPID #### [facility] [address] [address] Matias Evelyn Potassium [Moles/Vol] 4.3 mmol/L Normal 3.4-5.0 [facility] Comment on above: Performed By: #### U TARIK, CMP, T7, PSASC, TSH, LIPID #### [facility] [address] [address] Matias Evelyn Protein [Mass/Vol] 7.6 g/dL Normal 6.1-8.2 [facility] Comment on above: Performed By: #### U TARIK, CMP, T7, PSASC, TSH, LIPID #### [facility] [address] [address] Matias Evelyn Sodium [Moles/Vol] 141 mmol/L Normal 137-145 [facility] Comment on above: Performed By: #### U TARIK, CMP, T7, PSASC, TSH, LIPID #### [facility] [address] [place] [address] Matias Evelyn Urea nitrogen [Mass/Vol] 17.0 mg/dL Normal 9.0-20.0 [facility] Comment on above: Performed By: #### U TARIK, CMP, T7, PSASC, TSH, LIPID #### [facility] [address] [place] [address] Matias Evelyn Urea nitrogen/Creatini ne [Mass ratio] 14.2 mg/mg Normal [facility] Comment on above: Performed By: #### U TARIK, CMP, T7, PSASC, TSH, LIPID #### [facility] [address] [place] [address] Matias Evelyn TSHon 10-01-2020 TSH 1.574 uIU/mL Normal 0.470-4.68 0 [facility] Comment on above: Performed By: #### P SASC #### [facility] [address] [place] [address] Dr. Forrest Lauren TSH RANGE SEE BELOW Normal [facility] Comment on above: Result Comment: <0.3 4 UIU/ml HYPERTHYROID 0.34-5.60 UIU/ml EUTHYROID >5.60 UIU/ml HYPOTHYROID Performed By: #### P [facility] #### [facility] [address], [place] [address] Dr. Forrest Lauren URIC ACID SERUMon 10-01-2020 Urate [Mass/Vol] 4.8 mg/dL Normal 3.5-8.5 [facility] Comment on above: Performed By: #### P SAS #### [facility] [address], [place] [address] Dr. Forrest Lauren Cardiovascular Lab Reporton 08-03-2017 Cardiovascular Lab Report [facility]: [id number] Physician: Jerod Miller M.D.Medicine Service Date: 2017Division of Birthdate: 6Cardiology Room #: [facility] [address] [address] [place], [place] [address]Tqhgz Fax Cardiovascular Laboratory ReportINDICATION: Hoang Tran is [...] the right internal jugular vein and a 6-Pakistani x 11cm sheath was placed. A 6-Pakistani Griffith catheter was used for right heartcatheterization with measurement of pressures and calculation of cardiacoutput using the estimated Luke method. Griffith catheter was removed.Using ultrasound guidance and micropuncture technique, access was obtainedin the left radial artery and a 6-Pakistani x 11 cm Hydrophilic sheath wasadvanced. Verapamil [...] A Jerod Manuel M.D.Date Dict: 08/02/2017/02:42 P/Jerod aMnuel M.D.Date Trans: 08/03/2017 11:29 A/Get_JN:[id number]: Yfn Mata D.O. [address] [place] [address] [place] [address] Normal [facility] Vital Signs Date Time Vital Sign Value Performing Clinician Jose fairchild 01-21-2024 11:44-0400 Blood Pressure Location Moody POP [facility] 01-21-2024 11:44-0400 Diastolic blood pressure 72 mm[Hg] Moody [facility] 01-21-2024 11:44-0400 Heart rate 70 /min Moody POP [facility] 01-21-2024 11:44-0400 Respiratory rate 16 /min Moody POP [facility] 01-21-2024 11:44-0400 Systolic blood pressure 108 mm[Hg] [facility] Encounters Encounter Date Encounter Type Care Provider Facility Start: 06-09-2024 ambulatory Moody POP Facili ty:[facility] Start: 04-11-2024 End: 04-11-2024 ambulatory DO González Moon Work Phone: [facility] Work Phone: Start: 04-11-2024 End: 04-11-2024 Departed Referred DO González Moon Work Phone: [facility] [place] [facility] Start: 03-28-2024 End: 03-28-2024 ambulatory [facility] Start: 02-25-2024 End: 02-25-2024 ambulatory [facility] Start: 02-11-2024 End: 02-11-2024 ambulatory Moody OPP Facility:[id number] Start: 01-21-2024 End: 01-21-2024 ambulatory Moody POP Facility:[facility] Start: 01-21-2024 End: 01-21-2024 Patient encounter procedure Moody POP [facility] Start: 09-12-2023 ambulatory Moody POP Facility :[facility] Al[facility] Start: 08-26-2021 End: 08-26-2021 ambulatory AILIN BAKER Facility:[facility] Start: 02-23-2021 ambulatory IALIN BAKER Facility:[facility] Start: 12-06-2020 End: 12-07-2020 ambulatory ILAN TODD Facility:[facility] Start: 10-07-2020 Encounter for genera l adult medical examination without abnormal findings AILIN BAKER [facility] Start: 10-01-2020 End: 10-02-2020 ambulatory AILIN BAKER Facility:[facility] Start: 10-01-2020 End: 10-02-2020 Encounter for general adult medical examination without abnormal findings AILIN BAKER Facility: Start: 2017 End: 08-03-2017 Ambulatory PROVIDER UNKNOWN Facility:[facility] Start: 07-24-2017 End: 07-25-2017 Ambulatory DEFAULT PHYSICIAN Facility:[facility] Start: 07-19-2017 End: 07-20-2017 Ambulatory DEFAULT PHYSICIAN Facility:[facility] Start: 06-18-2017 End: 06-19-2017 Ambulatory DEFAULT PHYSICIAN Facility:[facility] Procedures Date Procedure Procedure Detail Performing Clinician Start: 08-26-2021 PSA screening AILIN KHAN Comment on above: Performed By: #### P SASC #### [facility] [address] [address] [address] Forrest Lauren Start: 10-01-2020 PSA screening AILIN KHAN Comment on above: Performed By: #### U TARIK, CMP, T7, PSASC, TSH, LIPID #### [facility] [address], [place] [address] Matias Rivas Start: 08-06-2013 Colonoscopy Moody ASHER Start: 08-06-2004 Neoplasm of brain (disorder) [facility] Back structure, excl uding neck (body structure) [facility] Tonsillectomy [facility] Payers Date Payer Category Payer Private Health Insurance [id number] 1958 [facility] [id number] 1958 Medicare [id number] 1958 Self-pay 1955 Unknown [id number] 1955 Unknown [id number] 1955 Unknown [id number] 1955 Unknown [id number] 1955 Unknown [id number] 1955 Unknown [id number] 1955 Unknown [id number] Unknown Unknown Bruce BC/BS [id number] Unknown [id number] Social History Date Type Detail Facility Start: 01-21-2024 Tobacco smoking status Never s moked tobacco (finding) [facility] Tobacco smoking status Never [facility] Sex Assigned At Male [facility] Start: 1955 Sex Assigned At Male [facility] Functional Status Date Assessment Result Facility 01-21-2024 Functional Status N/A [facility] Progress note 03-28-2024 Note Date & Type Note Facility 03-28-2024 Note [facility] Subjective Hoang Tran is a [...] HDL 42. TSH (more content not included)... [facility] Progress note 02-25-2024 Note Date & Type Note Facility 02-25-2024 Note [facility] Subjective Hoang Tran is a [...] platelets 256, potassium (more content not included)... [facility] Clinical Note 01-21-2024 Note Date & [...] neoplasm of prostat (more content not included)... [facility] Comment on above: Result Comment: Elec tronically Signed By: DONN ELLIS, Moody Aranda\.monica\Date and Time Signed: 01/21/24 12:46 EDT\.br\Electronically Co-Signed [...] urethra. Follow these instructions at home: Take qbub-cdj-rttyien and prescription medicines only as told by [...] provider. Document Revised: 02/08/2022 Document Reviewed: 02/08/2022 [employer] Patient Education 2022 [employer]. Follow Up Care 09/13/2023 09:26:56 With:DONN ELLIS, Moody Aranda, URL Address: [facility] [address] , [place] [address]- When: Unknown [facility] Evaluation + Plan note Note Date & Type Note Facility Evaluation + Plan note No data available for this section [facility] Evaluation note Note Date & Type Note Facility Evaluation note [facility] note Note Date & Type Note Facility [place] note No data available for this section [facility] Summary Purpose Family History No Family History Records FoundNo Family History Records Found No data available for this section No Family History Records FoundNo Family History Records FoundNo Family History Records [...] and content) DATE CREATED AUTHOR 01/29/2018 [facility] DATE CREATED AUTHOR AUTHOR'S ORGANIZ ATION 09/01/2021 [facility] DATE CREATED AUTHOR AUTHOR'S ORGANIZ ATION 03/12/2024 [facility] DATE CREATED AUTHOR AUTHOR'S ORGANIZ ATION 03/30/2024 [facility] DATE CREATED AUTHOR AUTHOR'S ORGANIZ ATION 04/13/2024 [facility] Patient Care team informatio n (unrecognized section and content) Team Status: Active Member Role Status Dates González Moon DO Primary Care Provider Active Team Status: Inactive Member Role Status Dates González Moon DO Primary Care Provider Active Sta rt: April 11, 2024 End: April 11, 2024 Hoang Strange MD Attending Provider Active Start: April 11, 2024 End: April 11, 2024 Goals (unrecognized section and content) Goals may be documented in a n alternate section FOR RECORDS PERTAINING TO PATIENTS WHO ARE [...] BE BASED ON THE PRIMARY CLINICAL RECORDS. [facility] [employer] [facility]. provides no warranty or guarantee of the accuracy or completeness of information in this document.
[2024-04-18 10:18] LABS: Hematocrit 41.1 % (42.0-54.0); Hemoglobin 12.7 g/dL (14.0-18.0); Mean Corpuscular HGB Conc 30.9 g/dL (29.9-35.2); Mean Corpuscular Hemoglobin 24.5 pg (25.9-34.0); Mean Corpuscular Volume 79.2 fL (80.0-94.0); Mean Platelet Volume 8.7 fL (9.5-13.5); Platelet Count 434 10^3/uL (150-450); Red Blood Count 5.19 10^6/uL (4.70-6.10); Red Cell Distribution Width 16.2 % (11.0-15.0); White Blood Count 10.6 10^3/uL (4.0-11.0)
[2024-04-18 10:37] LABS: Estimated Average Glucose 275 mg/dL; Glycohemoglobin A1C 11.2 % (4.5-6.2)
[2024-04-18 11:00] LABS: Lymphocytes Absolute Manual 1.59 10^3/uL (1.20-3.80); Monocytes Absolute Manual 1.16 10^3/uL (0.30-0.80); Segmented Neut Absolute Manual 7.73 10^3/uL (1.4-6.5)
[2024-04-18 11:41] LABS: Alanine Aminotransferase 148 U/L (16-63); Albumin Globulin Ratio 0.3; Albumin Level 1.9 g/dL (3.4-5.0); Alkaline Phosphatase 312 U/L (46-116); Anion Gap 6.7; Aspartate Amino Transferase 82 U/L (15-37); BUN Creatinine Ratio 12.6; Bilirubin Total 0.7 mg/dL (0.2-1.0); Calcium 9.7 mg/dL (8.5-10.1); Carbon Dioxide 34.5 mmol/L (21.0-32.0); Chloride 93 mmol/L (98-107); Estimated GFR (African America >60 (>=60); Estimated GFR (Non-African Ame >60 (>=60); Free T3 1.01 pg/mL (2.18-3.98); Globulin 6.2 g/dL; Glucose 169 mg/dL (74-106); Potassium 4.2 mmol/L (3.5-5.1); Sodium 130 mmol/L (136-145); Thyroid Stimulating Hormone 0.919 uIU/mL (0.358-3.740); Total Protein 8.1 g/dL (6.4-8.2)
== END 2024-04-18 09:54 | disposition home or self-care (01) ==
LOC: LAB 09:54
PROVIDERS: PCP Nurse Practitioner Family; Visit Provider Nurse Practitioner Family
DX: R63.4 Abnormal weight loss (principal); D50.9 Iron deficiency anemia, unspecified
CPT/HCPCS: 36415; 80053; 83036; 83540; 84436; 84443; 84481; 85007; 85025; 85027

== ENCOUNTER 2024-04-21 13:08 | Inpatient (IN) | payer MEDICARE, SELFPAY ==
[2024-04-21] VITALS (14 sets, daily range): BP systolic 107–133; BP diastolic 57–79; PULSE 65–98; TEMP 36.6–36.9; O2SAT 92–97; BMI 22.7; BMI 22.5
--- NOTE | 2024-04-21 13:17 | ECG_ITS ---
[facility] Test Date: 2024-04-21 Pat Name: NABEEL TRAN Department: Room: - Gender: Male [employer]: : 1955 Requested By: ONEYDA GREEN Order Number: [id number] Reading MD: ROMEML MCCLENDON Measurements Intervals [place] Rate: 91 P: 54 DC: 176 QRS: 30 QRSD: 88 T: 39 QT: 358 QTc: 406 Interpretive Statements 1100 Sinus rhythm 1974 with frequent ectopic premature complexes 4068 Nonspecific [place] abnormality 9140 abnormal rhythm ECG No previous ECG available for comparison Electronically Signed On 04-21-2024 23:12:11 EDT by ROMMEL MCCLENDON
--- NOTE | 2024-04-21 13:25 | ED_ITS ---
Documented by User: JEANCARLOS Wren 04/21/24 14:34 HPI - Recheck/Abnormal Lab/Rx General Chief Complaint: Recheck/Abnormal Lab/Rx Stated Complaint: CLINIC REFERRAL, ELECTROLYTE REPLACEMENT Time Seen by Provider: 04/21/24 13:10 Source: patient and family Mode of arrival: walk-in Limitations: no limitations History of Present Illness HPI narrative: Patient is a 68-year-old male with a history of insulin-dependent diabetes who presents to the emergency department for a low sodium level. He had routine outpatient labs performed 3 days ago at this facility and states he was contac kirill today from his primary care office stating he should come to the emergency department to be evaluated for hyponatremia. Patient states he has had ongoing issues with hearing loss, fatigue and ataxia since January. He has not had any imaging of his brain. He was recently found to have a masslike area to the right axilla that was biopsied 11 days ago. Patient and his state they have not received results yet of the biopsy. They have an upcoming appointment with an ENT to address his hearing loss. Patient denies any new focal medical complaints today. He has not had any nausea, vomiting, diarrhea, fevers, upper respiratory symptoms. He has no complaints of pain. Related Data Home Medications ?Medication ?Instructions ?Recorded ?Confirmed losartan 100 mg tablet 100 mg PO DAILY 02/01/24 04/21/24 metformin 1,000 mg tablet 1,000 mg PO BID 02/01/24 04/21/24 sitagliptin phosphate 100 mg 100 mg PO DAILY 02/01/24 04/21/24 tablet (Januvia) tamsulosin 0.4 mg capsule (Flomax) 0.4 mg PO DAILY 02/01/24 04/21/24 insulin glargine 100 unit/mL (3 10 unit subcut .qhs 04/11/24 04/21/24 mL) subcutaneous pen (Lantus Solostar U-100 Insulin) omeprazole 20 mg capsule,delayed 20 mg PO DAILY 04/11/24 04/21/24 release vitamins A,C,M-mxux-iuyogt 4,296 1 cap PO DAILY 04/11/24 04/21/24 mcg-226 mg-90 mg capsule (PreserVision AREDS) amlodipine 5 mg tablet 5 mg PO .qd 04/21/24 04/21/24 atorvastatin 10 mg tablet 10 mg PO .qd 04/21/24 04/21/24 glucagon 1 mg solution for 1 mg IV PRN 04/21/24 04/21/24 injection (Glucagon Emergency Kit) Allergies Allergy/AdvReac Type Severity Reaction Status Date / Time No Known Drug Allergies Allergy Verified 04/21/24 13:18 Review of Systems ROS Constitutional Denies: fever or chills Ears, nose, mouth, and throat Denies: throat pain or nasal congestion Cardiovascular Denies: chest pain Respiratory Denies: shortness of breath Gastrointestinal Denies: abdominal pain, nausea, vomiting or diarrhea Integumentary/Breast Denies: rash Neurological Reports: lack of coordination; Denies: headache, numbness in extremities or weakness in extremities Hematologic/Lymphatic Denies: easy bruising or easy bleeding [facility] Medical History (Updated 04/21/24 @ 14:33 by JEANCARLOS Wren) Pulmonary arterial hypertension ?I27.21 - Secondary pulmonary arterial hypertension (ICD-10) ENE (obstructive sleep apnea) ?G47.33 - Obstructive sleep apnea (adult) (pediatric) (ICD-10) COVID ?U07.1 - COVID-19 (ICD-10) Anxiety ?F41.9 - Anxiety disorder, unspecified (ICD-10) BPH (benign prostatic hyperplasia) ?N40.0 - Benign prostatic hyperplasia without lower urinary tract symptoms (ICD-10) Weight loss ?R63.4 - Abnormal weight loss (ICD-10) Axillary lymphadenopathy ?R59.0 - Localized enlarged lymph nodes (ICD-10) Deafness in right ear ?H91.91 - Unspecified hearing loss, right ear (ICD-10) Acoustic neuroma ?D33.3 - Benign neoplasm of cranial nerves (ICD-10) Overactive bladder ?N32.81 - Overactive bladder (ICD-10) Hypertension ?I10 - Essential (primary) hypertension (ICD-10) Hyperlipidemia ?E78.5 - Hyperlipidemia, unspecified (ICD-10) Glucosuria ?R81 - Glycosuria (ICD-10) Diabetes mellitus ?E11.9 - Type 2 diabetes mellitus without complications (ICD-10) BPH with obstruction/lower urinary tract symptoms ?N40.1 - Benign prostatic hyperplasia with lower urinary tract symptoms (ICD- 10) ?N13.8 - Other obstructive and reflux uropathy (ICD-10) Surgical History (Updated 02/11/24 @ 07:52 by Ina Gale) History of ear surgery ?Z98.890 - Other specified postprocedural states (ICD-10) History of tonsillectomy ?Z90.89 - Acquired absence of other organs (ICD-10) History of spinal fusion ?Z98.1 - Arthrodesis status (ICD-10) History of colonoscopy ?Z98.890 - Other specified postprocedural states (ICD-10) Family History (Updated 04/21/24 @ 14:57 by Susy Echeverria LPN) Mother Heart disease Other Family history of COPD (chronic obstructive pulmonary disease) Social History (Updated 04/21/24 @ 14:57 by Susy Echeverria LPN) Within the past year, how often did you have a drink containing alcohol: never Score interpretation: A score less than 4 is consistent with normal alcohol consumption. Smoking status: Never smoker Non-prescribed substance use: denies use Previous occupational history: retired Highest level of school completed/degree received: high school graduate Little interest or pleasure in doing things: not at all Feeling down, depressed, or hopeless: not at all Feel stressed/tense/nervous/anxious/difficulty sleeping: not at all Due to disability, difficulty making decisions: No Do you think of yourself as: straight/heterosexual Gender Identity: male Exam Narrative Exam Narrative: Gen.: Awake, alert, in no distress; hard of hearing Head: Normocephalic, atraumatic ENT: Moist mucous membranes Respiratory: No respiratory distress, lungs clear bilaterally; palpable mass in the right axilla against the right chest wall with no erythema or fluctuance Cardio: Regular rate and rhythm Gastrointestinal: Abdomen is soft, nondistended and nontender to palpation Extremities: Moves extremities equally Psych: Normal mood and affect Neuro: No focal neuro deficit Skin: Warm, dry, intact Constitutional Vital Signs, click to edit/add: Last Vital Signs Temp 98.5 F 04/21/24 15:29 Pulse 94 H 04/21/24 20:09 Resp 16 04/21/24 15:29 BP 126/79 04/21/24 16:31 Pulse Ox 92 L 04/21/24 15:29 O2 Del Method Room Air 04/21/24 15:29 Course Vital Signs Vital signs: Vital Signs Temperature 98.4 F 04/21/24 13:13 Pulse Rate 74 04/21/24 13:13 Respiratory Rate 18 04/21/24 13:13 Blood Pressure 107/57 04/21/24 13:13 Pulse Oximetry 96 04/21/24 13:13 Oxygen Delivery Method Room Air 04/21/24 13:13 Temperature 98.5 F 04/21/24 15:29 Pulse Rate 94 H 04/21/24 20:09 Respiratory Rate 16 04/21/24 15:29 Blood Pressure 126/79 04/21/24 16:31 Pulse Oximetry 92 L 04/21/24 15:29 Oxygen Delivery Method Room Air 04/21/24 15:29 MDM - Recheck/Abnormal Lab/Rx MDM Narrative Medical decision making narrative: Patient was treated with IV fluids, we also applied Debrox to his ears due to the hearing loss and suspected cerumen impaction with ENT follow-up. CT of the brain is unremarkable, lab studies show worsened hyponatremia with a sodium of 125. 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 P atient was given generalized path report findings by attending physician on reevaluation. I discussed the case with Dr. Damian and we will admit for hyponatremia with hematology/oncology evaluation in the hospital. Patient is hemodynamically stable at time of admission. SHARED APC VISIT, PHYSICIAN ATTESTATION: [id number] I performed a substantive part of the MDM during the patient?s E/M visit. I personally evaluated and examined the patient. I personally made or approved the documented management plan and acknowledge its risk of complications. Medical Records Attestation: I reviewed the patient's medical records. Lab Data Attestation: I reviewed the patient's lab results. Labs: Lab Results 04/21/24 04/21/24 Range/Units 13:20 14:55 WBC 9.5 (4.0-11.0) 10^3/uL RBC 5.23 (4.70-6.10) 10^6/uL Hgb 13.0 L (14.0-18.0) g/dL Hct 41.2 L (42.0-54.0) % MCV 78.8 L (80.0-94.0) fL MCH 24.9 L (25.9-34.0) pg MCHC 31.6 (29.9-35.2) g/dL RDW 16.1 H (11.0-15.0) % Plt Count 413 (150-450) 10^3/uL MPV 8.6 L (9.5-13.5) fL Neut % (Auto) 74.5 (43.0-75.0) % Lymph % (Auto) 12.0 L (20.5-60.0) % [place] % (Auto) 12.0 (1.7-12.0) % Eos % (Auto) 0.3 L (0.9-7.0) % Baso % (Auto) 0.4 (0.2-2.0) % Neut # (Auto) 7.1 H (1.4-6.5) 10^3/uL Lymph # (Auto) 1.1 L (1.2-3.8) 10^3/uL [place] # (Auto) 1.1 H (0.3-0.8) 10^3/uL Eos # (Auto) 0.0 (0.0-0.7) 10^3/uL Baso # (Auto) 0.0 (0.0-0.1) 10^3/uL Abs Immat Gran (auto) 0.08 H (0.00-0.03) 10^3/uL Imm/Tot Granulo (auto) 0.8 H (0.0-0.5) % PT 12.2 H (9.0-11.6) sec INR 1.17 APTT 37.1 H (22.3-36.2) sec Sodium 125 L (136-145) mmol/L Potassium 4.4 (3.5-5.1) mmol/L Chloride 90 L (98-107) mmol/L Carbon Dioxide 32.5 H (21.0-32.0) mmol/L Anion Gap 6.9 BUN 13.0 (7.0-18.0) mg/dL Creatinine 1.09 (0.70-1.30) mg/dL Est GFR ( Amer) >60 (>=60) Est GFR (Non-Af Amer) >60 (>=60) BUN/Creatinine Ratio 11.9 Glucose 297 H (74-106) mg/dL Calcium 9.4 (8.5-10.1) mg/dL Magnesium 1.8 (1.8-2.4) mg/dL Total Bilirubin 0.7 (0.2-1.0) mg/dL AST 124 H (15-37) U/L ALT 159 H (16-63) U/L Alkaline Phosphatase 326 H (46-116) U/L Ammonia <10 L (11-32) umol/L NT-Pro-B Natriuret Pep 441.0 (<=900.0) pg/mL Total Protein 8.2 (6.4-8.2) g/dL Albumin 1.8 L (3.4-5.0) g/dL Globulin 6.4 g/dL Albumin/Globulin Ratio 0.3 Amylase 48 (25-115) U/L Lipase 58.0 (16.0-77.0) U/L Imaging Data CT scan - head: Attestation: I have reviewed the pertinent imaging results. Radiologist's impression: ITS Impressions Head CT 04/21/24 13:25 IMPRESSION: No acute intracranial process is noted. Electronically authenticated by: MIRANDA COLBY Date: 04/21/2024 14:23 Abdomen/Pelvis CT 04/21/24 14:37 IMPRESSION: 1. Mildly dilated bowel loops probably an ileus..\ 2. Hepatomegaly. Electronically authenticated by: PATRICIA LEON Date: 04/21/2024 19:22 ECG Data Attestation: I personally reviewed and interpreted this ECG as follows: (Normal sinus rhythm at a rate of 91, frequent PVCs with no acute ST elevation. EKG reviewed by attending physician) Discharge Plan Discharge Chief Complaint: Recheck/Abnormal Lab/Rx Clinical Impression: Acute hyponatremia, Mass of right axilla Patient Disposition: Admitted as Observation Time of Disposition Decision: 14:33 Condition: Good Discharge Date/Time: 04/21/24 15:00 Documented by User: Eduard Tyler MD 04/21/24 20:17 HPI - Recheck/Abnormal Lab/Rx General Chief Complaint: Recheck/Abnormal Lab/Rx Stated Complaint: CLINIC REFERRAL, ELECTROLYTE REPLACEMENT Time Seen by Provider: 04/21/24 13:10 Related Data Home Medications ?Medication ?Instructions ?Recorded ?Confirmed losartan 100 mg tablet 100 mg PO DAILY 02/01/24 04/21/24 metformin 1,000 mg tablet 1,000 mg PO BID 02/01/24 04/21/24 sitagliptin phosphate 100 mg 100 mg PO DAILY 02/01/24 04/21/24 tablet (Januvia) tamsulosin 0.4 mg capsule (Flomax) 0.4 mg PO DAILY 02/01/24 04/21/24 insulin glargine 100 unit/mL (3 10 unit subcut .qhs 04/11/24 04/21/24 mL) subcutaneous pen (Lantus Solostar U-100 Insulin) omeprazole 20 mg capsule,delayed 20 mg PO DAILY 04/11/24 04/21/24 release vitamins A,C,N-wksq-rnjwqz 4,296 1 cap PO DAILY 04/11/24 04/21/24 mcg-226 mg-90 mg capsule (PreserVision AREDS) amlodipine 5 mg tablet 5 mg PO .qd 04/21/24 04/21/24 atorvastatin 10 mg tablet 10 mg PO .qd 04/21/24 04/21/24 glucagon 1 mg solution for 1 mg IV PRN 04/21/24 04/21/24 injection (Glucagon Emergency Kit) Allergies Allergy/AdvReac Type Severity Reaction Status Date / Time No Known Drug Allergies Allergy Verified 04/21/24 13:18 [facility] Medical History (Updated 04/21/24 @ 14:33 by JEANCARLOS Wren) Pulmonary arterial hypertension ?I27.21 - Secondary pulmonary arterial hypertension (ICD-10) ENE (obstructive sleep apnea) ?G47.33 - Obstructive sleep apnea (adult) (pediatric) (ICD-10) COVID ?U07.1 - COVID-19 (ICD-10) Anxiety ?F41.9 - Anxiety disorder, unspecified (ICD-10) BPH (benign prostatic hyperplasia) ?N40.0 - Benign prostatic hyperplasia without lower urinary tract symptoms (ICD-10) Weight loss ?R63.4 - Abnormal weight loss (ICD-10) Axillary lymphadenopathy ?R59.0 - Localized enlarged lymph nodes (ICD-10) Deafness in right ear ?H91.91 - Unspecified hearing loss, right ear (ICD-10) Acoustic neuroma ?D33.3 - Benign neoplasm of cranial nerves (ICD-10) Overactive bladder ?N32.81 - Overactive bladder (ICD-10) Hypertension ?I10 - Essential (primary) hypertension (ICD-10) Hyperlipidemia ?E78.5 - Hyperlipidemia, unspecified (ICD-10) Glucosuria ?R81 - Glycosuria (ICD-10) Diabetes mellitus ?E11.9 - Type 2 diabetes mellitus without complications (ICD-10) BPH with obstruction/lower urinary tract symptoms ?N40.1 - Benign prostatic hyperplasia with lower urinary tract symptoms (ICD- 10) ?N13.8 - Other obstructive and reflux uropathy (ICD-10) Surgical History (Updated 02/11/24 @ 07:52 by Ina Gale) History of ear surgery ?Z98.890 - Other specified postprocedural states (ICD-10) History of tonsillectomy ?Z90.89 - Acquired absence of other organs (ICD-10) History of spinal fusion ?Z98.1 - Arthrodesis status (ICD-10) History of colonoscopy ?Z98.890 - Other specified postprocedural states (ICD-10) Family History (Updated 04/21/24 @ 14:57 by Susy Echeverria LPN) Mother Heart disease Other Family history of COPD (chronic obstructive pulmonary disease) Social History (Updated 04/21/24 @ 14:57 by Susy Echeverria LPN) Within the past year, how often did you have a drink containing alcohol: never Score interpretation: A score less than 4 is consistent with normal alcohol consumption. Smoking status: Never smoker Non-prescribed substance use: denies use Previous occupational history: retired Highest level of school completed/degree received: high school graduate Little interest or pleasure in doing things: not at all Feeling down, depressed, or hopeless: not at all Feel stressed/tense/nervous/anxious/difficulty sleeping: not at all Due to disability, difficulty making decisions: No Do you think of yourself as: straight/heterosexual Gender Identity: male Exam Constitutional Vital Signs, click to edit/add: Last Vital Signs Temp 98.5 F 04/21/24 15:29 Pulse 94 H 04/21/24 20:09 Resp 16 04/21/24 15:29 BP 126/79 04/21/24 16:31 Pulse Ox 92 L 04/21/24 15:29 O2 Del Method Room Air 04/21/24 15:29 Course Vital Signs Vital signs: Vital Signs Temperature 98.4 F 04/21/24 13:13 Pulse Rate 74 04/21/24 13:13 Respiratory Rate 18 04/21/24 13:13 Blood Pressure 107/57 04/21/24 13:13 Pulse Oximetry 96 04/21/24 13:13 Oxygen Delivery Method Room Air 04/21/24 13:13 Temperature 98.5 F 04/21/24 15:29 Pulse Rate 94 H 04/21/24 20:09 Respiratory Rate 16 04/21/24 15:29 Blood Pressure 126/79 04/21/24 16:31 Pulse Oximetry 92 L 04/21/24 15:29 Oxygen Delivery Method Room Air 04/21/24 15:29 MDM - Recheck/Abnormal Lab/Rx MDM Narrative Medical decision making narrative: Patient was treated with IV fluids, we also applied Debrox to his ears due to the hearing loss and suspected cerumen impaction with ENT follow-up. CT of the brain is unremarkable, lab studies show worsened hyponatremia with a sodium of 125. 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 Patient was given generalized path report findings by attending physician on reevaluation. I discussed the case with Dr. Damian and we will admit for hyponatremia with hematology/oncology evaluation in the hospital. Patient is hemodynamically stable at time of admission. SHARED APC VISIT, PHYSICIAN ATTESTATION: [id number] i, Dr Tyler, was at bedside for 25 minutes talking to the patient, and writing the results of his lab work, discussions with Dr. Damian, , and the need for admission. Patient is aware of his sodium of 125, aware that the oncologist will see him in the hospital tomorrow for discussion of his symptoms, and aware that Dr. Damian will be admitting him to the hospital. Patient is aware of this, agrees. has been updated as well and she agrees. I performed a substantive part of the MDM during the patient?s E/M visit. I personally evaluated and examined the patient. I personally made or approved the documented management plan and acknowledge its risk of complications. Lab Data Labs: Lab Results 04/21/24 04/21/24 Range/Units 13:20 14:55 WBC 9.5 (4.0-11.0) 10^3/uL RBC 5.23 (4.70-6.10) 10^6/uL Hgb 13.0 L (14.0-18.0) g/dL Hct 41.2 L (42.0-54.0) % MCV 78.8 L (80.0-94.0) fL MCH 24.9 L (25.9-34.0) pg MCHC 31.6 (29.9-35.2) g/dL RDW 16.1 H (11.0-15.0) % Plt Count 413 (150-450) 10^3/uL MPV 8.6 L (9.5-13.5) fL Neut % (Auto) 74.5 (43.0-75.0) % Lymph % (Auto) 12.0 L (20.5-60.0) % [place] % (Auto) 12.0 (1.7-12.0) % Eos % (Auto) 0.3 L (0.9-7.0) % Baso % (Auto) 0.4 (0.2-2.0) % Neut # (Auto) 7.1 H (1.4-6.5) 10^3/uL Lymph # (Auto) 1.1 L (1.2-3.8) 10^3/uL [place] # (Auto) 1.1 H (0.3-0.8) 10^3/uL Eos # (Auto) 0.0 (0.0-0.7) 10^3/uL Baso # (Auto) 0.0 (0.0-0.1) 10^3/uL Abs Immat Gran (auto) 0.08 H (0.00-0.03) 10^3/uL Imm/Tot Granulo (auto) 0.8 H (0.0-0.5) % PT 12.2 H (9.0-11.6) sec INR 1.17 APTT 37.1 H (22.3-36.2) sec Sodium 125 L (136-145) mmol/L Potassium 4.4 (3.5-5.1) mmol/L Chloride 90 L (98-107) mmol/L Carbon Dioxide 32.5 H (21.0-32.0) mmol/L Anion Gap 6.9 BUN 13.0 (7.0-18.0) mg/dL Creatinine 1.09 (0.70-1.30) mg/dL Est GFR ( Amer) >60 (>=60) Est GFR (Non-Af Amer) >60 (>=60) BUN/Creatinine Ratio 11.9 Glucose 297 H (74-106) mg/dL Calcium 9.4 (8.5-10.1) mg/dL Magnesium 1.8 (1.8-2.4) mg/dL Total Bilirubin 0.7 (0.2-1.0) mg/dL AST 124 H (15-37) U/L ALT 159 H (16-63) U/L Alkaline Phosphatase 326 H (46-116) U/L Ammonia <10 L (11-32) umol/L NT-Pro-B Natriuret Pep 441.0 (<=900.0) pg/mL Total Protein 8.2 (6.4-8.2) g/dL Albumin 1.8 L (3.4-5.0) g/dL Globulin 6.4 g/dL Albumin/Globulin Ratio 0.3 Amylase 48 (25-115) U/L Lipase 58.0 (16.0-77.0) U/L Imaging Data CT scan - head: Radiologist's impression: ITS Impressions Head CT 04/21/24 13:25 IMPRESSION: No acute intracranial process is noted. Electronically authenticated by: MIRANDA COLBY Date: 04/21/2024 14:23 Abdomen/Pelvis CT 04/21/24 14:37 IMPRESSION: 1. Mildly dilated bowel loops probably an ileus..\ 2. Hepatomegaly. Electronically authenticated by: PATRICIA LEON Date: 04/21/2024 19:22 Discharge Plan Discharge Chief Complaint: Recheck/Abnormal Lab/Rx Clinical Impression: Acute hyponatremia, Mass of right axilla Patient Disposition: Admitted as Observation Time of Disposition Decision: 14:33 Condition: Good Discharge Date/Time: 04/21/24 15:00
--- NOTE | 2024-04-21 13:25 | CT_ITS ---
The [address] [address] Patient Name: NABEEL TRAN MRN: [id number] date: 1955 Sex: M Assigned Patient Location: ER Current Patient Location: Accession/Order Number: [id number] Exam Date: 04/21/2024 13:54 Report Date: 04/21/2024 14:23 At the request of: LAURO ALTAMIRANO Procedure: CT head/brain wo con CT head/brain wo con, 04/21/2024 1:54 PM EDT INDICATION: Ataxia, fatigue COMPARISON: There is no appropriate prior study for comparison. TECHNIQUE: Axial CT images of the brain from skull base to vertex, including portions of the face and sinuses, were obtained without contrast . Multiplanar reformatted images were generated and reviewed as needed. Dose reduction techniques were achieved by using automated exposure control and/or adjustment of mA and/or kV according to patient size and/or use of iterative reconstruction technique. FINDINGS: The cerebral sulci as well as ventricular system are appropriate for age. There is no intracranial mass, mass effect, midline shift, intra or extra-axial fluid collection or hemorrhage. A retention cyst within the left maxillary sinus is noted. The visualized portions of orbits, left mastoid air cells as well as paranasal sinuses are unremarkable. Status post right partial mastoidectomy and right suboccipital craniotomy. There is no suspicious osteolytic or osteoblastic lesion. CT/CT head/brain wo con IMPRESSION: No acute intracranial process is noted. Electronically authenticated by: MIRANDA COLBY Date: 04/21/2024 14:23
[2024-04-21 13:26] LABS: Basophils Percent Auto 0.4 % (0.2-2.0); Eosinophils Percent Auto 0.3 % (0.9-7.0); Hematocrit 41.2 % (42.0-54.0); Immature Granulocytes Abs Auto 0.08 10^3/uL (0.00-0.03); Immature Granulocytes Pct Auto 0.8 % (0.0-0.5); Lymphocytes Absolute Auto 1.1 10^3/uL (1.2-3.8); Mean Corpuscular HGB Conc 31.6 g/dL (29.9-35.2); Mean Corpuscular Hemoglobin 24.9 pg (25.9-34.0); Mean Corpuscular Volume 78.8 fL (80.0-94.0); Mean Platelet Volume 8.6 fL (9.5-13.5); Monocytes Absolute Auto 1.1 10^3/uL (0.3-0.8); Neutrophils Absolute Auto 7.1 10^3/uL (1.4-6.5); Neutrophils Percent Auto 74.5 % (43.0-75.0); Platelet Count 413 10^3/uL (150-450); Red Blood Count 5.23 10^6/uL (4.70-6.10); Red Cell Distribution Width 16.1 % (11.0-15.0); White Blood Count 9.5 10^3/uL (4.0-11.0)
[2024-04-21] MEDS: 0.9 % SODIUM CHLORIDE 1,000 ML 1000 ML IV (13:28)
[2024-04-21 13:41] LABS: Alanine Aminotransferase 159 U/L (16-63); Albumin Globulin Ratio 0.3; Albumin Level 1.8 g/dL (3.4-5.0); Alkaline Phosphatase 326 U/L (46-116); Anion Gap 6.9; Aspartate Amino Transferase 124 U/L (15-37); BUN Creatinine Ratio 11.9; Bilirubin Total 0.7 mg/dL (0.2-1.0); Calcium 9.4 mg/dL (8.5-10.1); Carbon Dioxide 32.5 mmol/L (21.0-32.0); Chloride 90 mmol/L (98-107); Estimated GFR (African America >60 (>=60); Estimated GFR (Non-African Ame >60 (>=60); Globulin 6.4 g/dL; Glucose 297 mg/dL (74-106); Potassium 4.4 mmol/L (3.5-5.1); Sodium 125 mmol/L (136-145); Total Protein 8.2 g/dL (6.4-8.2)
[2024-04-21] MEDS: CARBAMIDE PEROXIDE 6.5% EAR DROPS 300 DROP/15 ML BOTTLE OT (14:29)
--- NOTE | 2024-04-21 14:37 | CT_ITS ---
The [address] [address] Patient Name: NABEEL TRAN MRN: [id number] date: 1955 Sex: M Assigned Patient Location: [place] Current Patient Location: [place] Accession/Order Number: [id number] Exam Date: 04/21/2024 17:48 Report Date: 04/21/2024 19:22 At the request of: JASON TINAJERO Procedure: CT abdomen pelvis w con CT ABDOMEN/PELVIS WITH IV CONTRAST. INDICATION: Abd Pain elkevated liver function tests. COMPARISON: There are no other studies available for comparison. TECHNIQUE: Contiguous axial images were obtained from the lung bases to the pelvic floor following the intravenous administration of contrast. Coronal and sagittal reformations are provided. FINDINGS: LOWER LUNGS: Clear. LIVER/BILIARY TREE: No mass. No intrahepatic ductal dilatation. Hepatomegaly. GALLBLADDER: No significant gallbladder wall thickening. No radiopaque stone. CBD: Normal CBD. SPLEEN: Normal in size. PANCREAS: No acute findings. No peripancreatic fluid or inflammation. No pancreatic duct dilatation. No discrete mass. ADRENALS: Normal. KIDNEYS: There are several bilateral renal cysts measuring up to 4 cm per No hydronephrosis. No radiopaque calculus. STOMACH AND BOWEL: Stomach is unremarkable. There are mildly dilated bowel loops. No bowel wall thickening. There is oral contrast in the small bowel. APPENDIX: Normal appendix. PERITONEAL CAVITY: No fluid. No fat stranding. ABDOMINAL WALL: No subcutaneous stranding. No subcutaneous fluid collection. LYMPH NODES: No mesenteric or retroperitoneal lymphadenopathy by CT criteria. ABDOMINAL AORTA: No aneurysm. PELVIS: No acute abnormality. Prostatomegaly. MUSCULOSKELETAL: No acute osseous abnormality. CT/CT abdomen pelvis w con IMPRESSION: 1. Mildly dilated bowel loops probably an ileus..\ 2. Hepatomegaly. Electronically authenticated by: PATRICIA LEON Date: 04/21/2024 19:22
--- NOTE | 2024-04-21 14:51 | PC.NURSE ---
called oncology consult to dr mckeon at `3037 on 04/21/24. spoke with alexander in the infusion center.
[2024-04-21 15:06] LABS: INR 1.17; Partial Thromboplastin Time 37.1 sec (22.3-36.2); Prothrombin Time 12.2 sec (9.0-11.6)
[2024-04-21 15:13] LABS: Amylase 48 U/L (25-115)
[2024-04-21 15:16] LABS: Glucometer 254 mg/dL (74-106)
[2024-04-21 15:17] LABS: Ammonia <10 umol/L (11-32)
[2024-04-21 15:21] LABS: Magnesium 1.8 mg/dL (1.8-2.4)
[2024-04-21] MEDS: 0.9 % SODIUM CHLORIDE 1,000 ML 125 ML IV (15:26)
[2024-04-21] MEDS: INSULIN ASPART 300 UNIT/3 ML PEN SUBQ ×2 (16:25→21:34)
--- NOTE | 2024-04-21 19:01 | P.HP_ITS ---
HPI H&P: HPI History of Present Illness Chief complaint: CLINIC REFERRAL, ELECTROLYTE REPLACEMENT hyponatre Narrative: Patient is having extensive workup as an outpatient for significant weight loss and right axillary mass. Biopsy from right axillary mass was pretty much nonspecific. Was about to have workup sent to local oncology, but laboratory results came back with significant hyponatremia and was referred to the emergency room. This was confirmed in the emergency room. With a sodium less than 130, patient mated for workup and treatment of the hyponatremia. Opioid HPI Opioid Management Most Recent Pain and Opioid Data: Last Pain Assessment 04/21/24 17:59 Last ORT Total Score 0 04/21/24 15:23 Last ORT Risk Category Low Risk 04/21/24 15:23 Review of Systems ROS Status of ROS 10 or more systems reviewed and unremark able except as noted in history and below [facility] Medical History (Updated 04/21/24 @ 14:33 by JEANCARLOS Wren) Pulmonary arterial hypertension ?I27.21 - Secondary pulmonary arterial hypertension (ICD-10) ENE (obstructive sleep apnea) ?G47.33 - Obstructive sleep apnea (adult) (pediatric) (ICD-10) COVID ?U07.1 - COVID-19 (ICD-10) Anxiety ?F41.9 - Anxiety disorder, unspecified (ICD-10) BPH (benign prostatic hyperplasia) ?N40.0 - Benign prostatic hyperplasia without lower urinary tract symptoms (ICD-10) Weight loss ?R63.4 - Abnormal weight loss (ICD-10) Axillary lymphadenopathy ?R59.0 - Localized enlarged lymph nodes (ICD-10) Deafness in right ear ?H91.91 - Unspecified hearing loss, right ear (ICD-10) Acoustic neuroma ?D33.3 - Benign neoplasm of cranial nerves (ICD-10) Overactive bladder ?N32.81 - Overactive bladder (ICD-10) Hypertension ?I10 - Essential (primary) hypertension (ICD-10) Hyperlipidemia ?E78.5 - Hyperlipidemia, unspecified (ICD-10) Glucosuria ?R81 - Glycosuria (ICD-10) Diabetes mellitus ?E11.9 - Type 2 diabetes mellitus without complications (ICD-10) BPH with obstruction/lower urinary tract symptoms ?N40.1 - Benign prostatic hyperplasia with lower urinary tract symptoms (ICD- 10) ?N13.8 - Other obstructive and reflux uropathy (ICD-10) Surgical History (Updated 02/11/24 @ 07:52 by Ina Gale) History of ear surgery ?Z98.890 - Other specified postprocedural states (ICD-10) History of tonsillectomy ?Z90.89 - Acquired absence of other organs (ICD-10) History of spinal fusion ?Z98.1 - Arthrodesis status (ICD-10) History of colonoscopy ?Z98.890 - Other specified postprocedural states (ICD-10) Family History (Updated 04/21/24 @ 14:57 by Susy Echeverria LPN) Mother Heart disease Other Family history of COPD (chronic obstructive pulmonary disease) Social History (Updated 04/21/24 @ 14:57 by Susy Echeverria LPN) Within the past year, how often did you have a drink containing alcohol: never Score interpretation: A score less than 4 is consistent with normal alcohol consumption. Smoking status: Never smoker Non-prescribed substance use: denies use Previous occupational history: retired Highest level of school completed/degree received: high school graduate Little interest or pleasure in doing things: not at all Feeling down, depressed, or hopeless: not at all Feel stressed/tense/nervous/anxious/difficulty sleeping: not at all Due to disability, difficulty making decisions: No Do you think of yourself as: straight/heterosexual Gender Identity: male Meds Home Medications and Allergies Home Medications ?Medication ?Instructions ?Recorded ?Confirmed ?Type losartan 100 mg tablet 100 mg PO DAILY 02/01/24 04/21/24 History metformin 1,000 mg tablet 1,000 mg PO BID 02/01/24 04/21/24 History sitagliptin phosphate 100 mg 100 mg PO DAILY 02/01/24 04/21/24 History tablet (Januvia) tamsulosin 0.4 mg capsule (Flomax) 0.4 mg PO DAILY 02/01/24 04/21/24 History insulin glargine 100 unit/mL (3 10 unit subcut .qhs 04/11/24 04/21/24 History mL) subcutaneous pen (Lantus Solostar U-100 Insulin) omeprazole 20 mg capsule,delayed 20 mg PO DAILY 04/11/24 04/21/24 History release vitamins A,C,I-jwhf-jkpyio 4,296 1 cap PO DAILY 04/11/24 04/21/24 History mcg-226 mg-90 mg capsule (PreserVision AREDS) amlodipine 5 mg tablet 5 mg PO .qd 04/21/24 04/21/24 History atorvastatin 10 mg tablet 10 mg PO .qd 04/21/24 04/21/24 History glucagon 1 mg solution for 1 mg IV PRN 04/21/24 04/21/24 History injection (Glucagon Emergency Kit) Allergies Allergy/AdvReac Type Severity Reaction Status Date / Time No Known Drug Allergies Allergy Verified 04/21/24 13:18 Exam Constitutional Vital Signs, click to edit/add: Last Vital Signs Temp 98.5 F 04/21/24 15:29 Pulse 81 04/21/24 17:59 Resp 16 04/21/24 15:29 BP 126/79 04/21/24 16:31 Pulse Ox 92 L 04/21/24 15:29 O2 Del Method Room Air 04/21/24 15:29 Documenting provider has reviewed patient's vital signs: yes Common normals: no apparent distress (Very hard of hearing) Chest Common normals: inspection of chest normal and palpation of chest normal Respiratory Common normals: normal respiratory effort and no retractions Cardio Common normals: regular rate and regular rhythm; murmurs detected Heart sounds: murmur (Workup as an outpatient unremarkable) systolic GI Common normals: Normal to inspection, nondistended, normoactive bowel sounds present Extremity Common normals: abnormal to inspection (Large axillary mass) Results Labs Labs: Short CBC 04/21/24 Range/Units 13:20 WBC 9.5 (4.0-11.0) 10^3/uL Hgb 13.0 L (14.0-18.0) g/dL Hct 41.2 L (42.0-54.0) % Plt Count 413 (150-450) 10^3/uL BMP 04/21/24 13:20 Sodium 125 L Potassium 4.4 Chloride 90 L Carbon Dioxide 32.5 H BUN 13.0 Creatinine 1.09 Glucose 297 H Calcium 9.4 Liver Function 04/21/24 Range/Units 13:20 Total Bilirubin 0.7 (0.2-1.0) mg/dL AST 124 H (15-37) U/L ALT 159 H (16-63) U/L Alkaline Phosphatase 326 H (46-116) U/L Albumin 1.8 L (3.4-5.0) g/dL Assessment and Plan Assessment and Plan (1) Mass of right axilla: (2) Acute hyponatremia: Plan Admission findings: Iron deficiency anemia significant hyponatremia uncontrolled diabetes mellitus, elevated liver function test and severe protein calorie malnutrition Right axillary mass with atypical lymphocytes but not specific for lymphoma. Will have oncology review and evaluate, will also consult to general surgery about excision of right axillary mass Severe hyponatremia with sodium of 125-check urine sodium. IV hydration with normal saline. Repeat labs in AM. Elevated liver function test-check CT scan abdomen and pelvis. test is completed but results are pending Anemia-likely iron deficient-will workup as an outpatient. Uncontrolled diabetes mellitus likely contributing to the hyponatremia-Home insulin plus sliding scale. Likely to adjusted discharge. Admission status: Significant hyponatremia, will start patient as observation, may need slower hydration and thus medically necessary treatment may span 2 midnights. May require inpatient status.
[2024-04-21] MEDS: ENSURE HP 237 ML LIQUID PO (21:29)
[2024-04-21] MEDS: INSULIN DETEMIR 300 UNIT/3 ML INSULN.PEN 10 UNIT SQ (21:34)
[2024-04-21 21:37] LABS: Glucometer 251 mg/dL (74-106)
[2024-04-21 22:36] LABS: Glucometer 242 mg/dL (74-106)
[2024-04-22] VITALS (25 sets, daily range): BP systolic 107–138; BP diastolic 68–86; PULSE 74–96; TEMP 36.6–36.9; O2SAT 92–94
--- NOTE | 2024-04-22 | HP_ITS ---
CONSULTATION DATE: 04/22/2024 CHIEF COMPLAINT: Right axillary adenopathy. HISTORY OF PRESENT ILLNESS: Patient is a 68-year-old male with history of type 2 diabetes, hypertension, hyperlipidemia, obstructive sleep apnea, pulmonary hypertension, who is currently undergoing outpatient workup for significant weight loss, as well as enlarging right axillary adenopathy. Patient reports this began about six months ago. The adenopathy has continued to progress. He has no pain. No fevers. No night sweats. He did have a chest CT which revealed extensive axillary adenopathy that seemed to be continued to the axilla. Other body areas have been negative. He did under a needle biopsy by Radiology, which a lymphoproliferative disorder, as non-diagnostic, which would be expected. He was to see Oncology as an outpatient and completed work up, where he was noted to have increased weakness and laboratory evaluation revealed significant hyponatremia. He has also had elevated glucose. He was therefore admitted for further work up and treatment of his hyponatremia, which has improved. Open biopsy has been requested for the axillary adenopathy for tissue diagnosis and lymphoma work up. ALLERGIES: Patient no known drug allergies. MEDICATIONS: Home medications include amlodipine, atorvastatin, insulin, losartan, metformin, omeprazole, Januvia, Flomax and PreserVision. PAST SURGICAL HISTORY: Significant for resection of acoustic neuroma, tonsillectomy, spinal fusion, remote colonoscopy. FAMILY HISTORY: Not contributory. REVIEW OF SYSTEMS: Ten system review of systems is positive for the weight loss. He denies headache or light-headedness. He has had no earache or tinnitus. No sinus congestion. No sore throat or hoarseness. No chest pain, palpitations or syncope. No chronic cough, shortness of breath or hemoptysis. No abdominal pain, nausea or vomiting. No bowel changes or blood in the stool. No dysuria, frequency, urgency or hematuria. Some weight loss but no weight gain. PHYSICAL EXAM: VITAL SIGNS: Patient is afebrile. Blood pressure is 107/68. Pulse is 89 and regular. Respiratory rate is 16. O2 saturation is 94% on room air. GENERAL: In general, he is a thin male, in no acute distress. HEENT: Normocephalic, atraumatic. Sclerae anicteric. Conjunctiva are not injected. Oral mucosa is moist. NECK: Supple. There is no adenopathy, thyromegaly or JVD. LUNGS: Clear bilaterally. CARDIAC EXAM: Regular rhythm and rate. AXILLA: Right axilla reveals extensive adenopathy that is non-tender. There is no edema. There is some erythematous kind of changes to the skin around the axilla. No open areas or drainage. No left axillary adenopathy. No supraclavicular adenopathy. ABDOMEN: Soft, non-tender, non-distended. There are no mass, hepatosplenomegaly or hernias. No CVA tenderness. SKIN: Warm and dry without lesions, rashes or ulcers. NEURO EXAM: Non-focal. Non-lateralizing. LABORATORY DATA: Laboratory values reveal a white blood cell count of 8.9, H&H of 11.2 and 36.1 with a normal platelet count. Coagulation values are normal. Sodium is 133 today with normal potassium. BUN is 11 with creatinine of 0.9. He has mild elevation of his transaminases and alkaline phosphotase. ASSESSMENT: A 68-year-old male with progressively enlarging right axillary adenopathy, possible lymphoma. PLAN: To proceed with open biopsy for enough tissue for lymphoma work up under anesthesia. Indications, risks, benefits, alternatives of proceeding were extensively to the patient, including risks of bleeding, infection, scarring, pain, lymphocele, seroma, need for further surgery or anesthetic complications. All his questions were answered. Informed consent was obtained. CC: Jah Damian M.D. MEGA
[2024-04-22] MEDS: 0.9 % SODIUM CHLORIDE 1,000 ML 125 ML IV ×3 (02:08→16:54)
[2024-04-22] MEDS: OMEPRAZOLE 20 MG CAPSULE.DR PO (05:32)
[2024-04-22 06:07] LABS: Basophils Percent Auto 0.4 % (0.2-2.0); Eosinophils Absolute Auto 0.1 10^3/uL (0.0-0.7); Eosinophils Percent Auto 1.1 % (0.9-7.0); Hematocrit 36.1 % (42.0-54.0); Hemoglobin 11.2 g/dL (14.0-18.0); Immature Granulocytes Abs Auto 0.07 10^3/uL (0.00-0.03); Immature Granulocytes Pct Auto 0.8 % (0.0-0.5); Lymphocytes Absolute Auto 1.1 10^3/uL (1.2-3.8); Lymphocytes Percent Auto 11.9 % (20.5-60.0); Mean Corpuscular Hemoglobin 24.3 pg (25.9-34.0); Mean Corpuscular Volume 78.5 fL (80.0-94.0); Mean Platelet Volume 8.6 fL (9.5-13.5); Monocytes Absolute Auto 1.3 10^3/uL (0.3-0.8); Monocytes Percent Auto 14.3 % (1.7-12.0); Neutrophils Absolute Auto 6.4 10^3/uL (1.4-6.5); Neutrophils Percent Auto 71.5 % (43.0-75.0); Platelet Count 372 10^3/uL (150-450); White Blood Count 8.9 10^3/uL (4.0-11.0)
[2024-04-22 06:28] LABS: Alanine Aminotransferase 135 U/L (16-63); Albumin Globulin Ratio 0.3; Albumin Level 1.6 g/dL (3.4-5.0); Alkaline Phosphatase 296 U/L (46-116); Anion Gap 11.3; Aspartate Amino Transferase 112 U/L (15-37); BUN Creatinine Ratio 12.5; Bilirubin Total 0.6 mg/dL (0.2-1.0); Calcium 9.3 mg/dL (8.5-10.1); Carbon Dioxide 29.8 mmol/L (21.0-32.0); Chloride 96 mmol/L (98-107); Estimated GFR (African America >60 (>=60); Estimated GFR (Non-African Ame >60 (>=60); Globulin 5.4 g/dL; Glucose 167 mg/dL (74-106); Potassium 4.1 mmol/L (3.5-5.1); Sodium 133 mmol/L (136-145)
--- NOTE | 2024-04-22 06:48 | P.PN_ITS ---
Progress Note: Subjective Subjective Interval history: Still feels significant weakness and lightheadedness, some urine output but not as much as expected for the volume of fluids given Exam Constitutional Vital Signs, click to edit/add: Last Vital Signs Temp 98.1 F 04/22/24 05:00 Pulse 81 04/22/24 06:00 Resp 17 04/22/24 05:00 BP 129/75 04/22/24 05:05 Pulse Ox 94 L 04/22/24 05:00 O2 Del Method Room Air 04/22/24 05:00 Documenting provider has reviewed patient's vital signs: yes Common normals: no apparent distress (Very hard of hearing) Chest Common normals: inspection of chest normal and palpation of chest normal Respiratory Common normals: normal respiratory effort, no retractions and clear to auscultation bilaterally Cardio Common normals: regular rate and regular rhythm; murmurs detected Heart sounds: murmur (Workup as an outpatient unremarkable) systolic GI Common normals: Normal to inspection, nondistended, normoactive bowel sounds present, soft to palpation, non-tender and no hepatosplenomegaly Extremity Common normals: abnormal to inspection (Large axillary mass) Progress Note: Objective Labs Labs: Short CBC 04/21/24 04/22/24 Range/Units 13:20 05:59 WBC 9.5 8.9 (4.0-11.0) 10^3/uL Hgb 13.0 L 11.2 L (14.0-18.0) g/dL Hct 41.2 L 36.1 L (42.0-54.0) % Plt Count 413 372 (150-450) 10^3/uL BMP 04/21/24 04/22/24 13:20 05:59 Sodium 125 L 133 L Potassium 4.4 4.1 Chloride 90 L 96 L Carbon Dioxide 32.5 H 29.8 BUN 13.0 11.0 Creatinine 1.09 0.88 Glucose 297 H 167 H Calcium 9.4 9.3 Liver Function 04/21/24 04/22/24 Range/Units 13:20 05:59 Total Bilirubin 0.7 0.6 (0.2-1.0) mg/dL AST 124 H 112 H (15-37) U/L ALT 159 H 135 H (16-63) U/L Alkaline Phosphatase 326 H 296 H (46-116) U/L Albumin 1.8 L 1.6 L (3.4-5.0) g/dL Progress Note: A&P Assessment and Plan (1) Mass of right axilla: (2) Acute hyponatremia: Plan Admission findings: Iron deficiency anemia, significant hyponatremia uncontrolled diabetes mellitus, elevated liver function test and severe protein calorie malnutrition Severe hyponatremia with sodium of 125 on admission - better but not resolved and still symptomatic, not great urine output, not great urine output for the amount of volume given- continue with hydration at least one more day Right axillary mass with atypical lymphocytes but not specific for lymphoma. Will have oncology review and evaluate, will also consult to general surgery about excision of right axillary mass today Elevated liver function test- ct with hepatomegaly but no masses , no obstructions, liver test better today, patient denies alcohol abuse Coagulopathy - due to the above - consider repeat testing Ileus noted on CT scan but patient without significant abdominal pain or nausea vomiting Anemia-likely iron deficient-will workup as an outpatient. down today Uncontrolled diabetes mellitus likely contributing to the hyponatremia-Home insulin plus sliding scale. Likely to adjusted discharge. Admission status: Started as obs, still with significant symptomatic hyponatremia and dehydration, medically necessary treatment to span two midnight for IV fluids and oncology and surgical intervention. Change to inpatient status ?
[2024-04-22 07:20] LABS: Glucometer 180 mg/dL (74-106)
--- NOTE | 2024-04-22 08:18 | P.CN_ITS ---
Consult Note: HPI Data of Consult Patient: new to practice Consult date: 04/22/24 Requesting Physician: Jah Damian MD Primary Care Provider: ONEYDA GREEN Consult Narrative Reason for consult: concern for lymphoma Narrative: 68 y/o male, [place] due to acoustic neuroma and surgery, who is current undergoing work-up for weight loss and large / bulky R axillary mass. He presented with hyponatremia, sodium < 130. He is admitted for the same. We are consulted for assistance in lymphoma work-up. His imaging is summarized below: 03/25/2024 - right extremity US: within axillary region there are enlarged heterogeneous predominantly hypoechoic masses, the largest of which measures 5.8 x 4.2 x 3.7 cm. Second measures 3.6 x 3.4 x 2.5 cm. These are likely enlarged LN. CT chest was recommended for further evaluation. 03/29/2024 - CT chest: no acute infiltrates or suspicious nodules in the lungs. Numerous enlarged LN in the R axilla, largest 6.0 cm in long axis. Impression involves R axilla, marked LAD of unclear etiology. No involvement of lower neck, supraclavicular, or mediastinum. No appreciable mass of the chest wall. Consider US guided sampling. Chronic granulomatous disease noted. 04/11/2024 - US guided biopsy LN (6.[address] vs mass) Pathological Diagnosis: A. Right axillary lymph node core biopsy: Consistent with atypical lymphoproliferative disorder. Pending flow cytometry to classify lymphoproliferative disorder. 04/21/2024 - CT abdomen / pelvis with contrast: hepatomegaly. Mildly dilated bowel loops. 04/21/2024 - CT head negative I did see pt at the bedside. I did discuss case with Dr Lauren from pathology. He also sent slides to [facility] and specimen is highly suggestive (but NOT diagnostic) of Hodgkin's lymphoma. I added LDH and uric acid, both are wnl. I discussed with Dr Damian. Plans involve core biopsy with Dr Clemens tomorrow. If lymphoma is confirmed, we will plan PET scan and follow NCCN guidelines for treatment (which will likely involve chemo-immunotherapy) with high cure rate. ECOG PS 2. cc:: CC: Jah Damian MD Review of Systems ROS Narrative A 12 point review of systems was performed and is negative other than that reported in the history of present illness. [facility] Medical History (Updated 04/21/24 @ 14:33 by JEANCARLOS Wren) Pulmonary arterial hypertension ?I27.21 - Secondary pulmonary arterial hypertension (ICD-10) ENE (obstructive sleep apnea) ?G47.33 - Obstructive sleep apnea (adult) (pediatric) (ICD-10) COVID ?U07.1 - COVID-19 (ICD-10) Anxiety ?F41.9 - Anxiety disorder, unspecified (ICD-10) BPH (benign prostatic hyperplasia) ?N40.0 - Benign prostatic hyperplasia without lower urinary tract symptoms (ICD-10) Weight loss ?R63.4 - Abnormal weight loss (ICD-10) Axillary lymphadenopathy ?R59.0 - Localized enlarged lymph nodes (ICD-10) Deafness in right ear ?H91.91 - Unspecified hearing loss, right ear (ICD-10) Acoustic neuroma ?D33.3 - Benign neoplasm of cranial nerves (ICD-10) Overactive bladder ?N32.81 - Overactive bladder (ICD-10) Hypertension ?I10 - Essential (primary) hypertension (ICD-10) Hyperlipidemia ?E78.5 - Hyperlipidemia, unspecified (ICD-10) Glucosuria ?R81 - Glycosuria (ICD-10) Diabetes mellitus ?E11.9 - Type 2 diabetes mellitus without complications (ICD-10) BPH with obstruction/lower urinary tract symptoms ?N40.1 - Benign prostatic hyperplasia with lower urinary tract symptoms (ICD- 10) ?N13.8 - Other obstructive and reflux uropathy (ICD-10) Surgical History (Updated 02/11/24 @ 07:52 by Ina Gale) History of ear surgery ?Z98.890 - Other specified postprocedural states (ICD-10) History of tonsillectomy ?Z90.89 - Acquired absence of other organs (ICD-10) History of spinal fusion ?Z98.1 - Arthrodesis status (ICD-10) History of colonoscopy ?Z98.890 - Other specified postprocedural states (ICD-10) Family History (Updated 04/21/24 @ 14:57 by Susy Echeverria LPN) Mother Heart disease Other Family history of COPD (chronic obstructive pulmonary disease) Social History (Updated 04/21/24 @ 14:57 by Susy Echeverria LPN) Within the past year, how often did you have a drink containing alcohol: never Score interpretation: A score less than 4 is consistent with normal alcohol consumption. Smoking status: Never smoker Non-prescribed substance use: denies use Previous occupational history: retired Highest level of school completed/degree received: high school graduate Little interest or pleasure in doing things: not at all Feeling down, depressed, or hopeless: not at all Feel stressed/tense/nervous/anxious/difficulty sleeping: not at all Due to disability, difficulty making decisions: No Do you think of yourself as: straight/heterosexual Gender Identity: male Meds Home Medications and Allergies Home Medications ?Medication ?Instructions ?Recorded ?Confirmed ?Type losartan 100 mg tablet 100 mg PO DAILY 02/01/24 04/21/24 History metformin 1,000 mg tablet 1,000 mg PO BID 02/01/24 04/21/24 History sitagliptin phosphate 100 mg 100 mg PO DAILY 02/01/24 04/21/24 History tablet (Januvia) tamsulosin 0.4 mg capsule (Flomax) 0.4 mg PO DAILY 02/01/24 04/21/24 History insulin glargine 100 unit/mL (3 10 unit subcut .qhs 04/11/24 04/21/24 History mL) subcutaneous pen (Lantus Solostar U-100 Insulin) omeprazole 20 mg capsule,delayed 20 mg PO DAILY 04/11/24 04/21/24 History release vitamins A,C,B-ytih-pmqxob 4,296 1 cap PO DAILY 04/11/24 04/21/24 History mcg-226 mg-90 mg capsule (PreserVision AREDS) amlodipine 5 mg tablet 5 mg PO .qd 04/21/24 04/21/24 History atorvastatin 10 mg tablet 10 mg PO .qd 04/21/24 04/21/24 History glucagon 1 mg solution for 1 mg IV PRN 04/21/24 04/21/24 History injection (Glucagon Emergency Kit) Allergies Allergy/AdvReac Type Severity Reaction Status Date / Time No Known Drug Allergies Allergy Verified 04/21/24 13:18 Exam Narrative Exam Narrative: Vitals reviewed. Exam Narrative: Gen.: Awake, alert, in no distress; hard of hearing Head: Normocephalic, atraumatic ENT: Moist mucous membranes Respiratory: No respiratory distress, lungs clear bilaterally; palpable mass in the right axilla against the right chest wall with no erythema or fluctuance Cardio: Regular rate and rhythm Gastrointestinal: Abdomen is soft, nondistended and nontender to palpation Extremities: Moves extremities equally Extremity Common normals: abnormal to inspection (Large 6+ cm axillary mass) Psych: Normal mood and affect Neuro: No focal neuro deficit Skin: Warm, dry, intact Constitutional Vital Signs, click to edit/add: Last Vital Signs Temp 98.0 F 04/22/24 07:37 Pulse 86 04/22/24 07:56 Resp 16 04/22/24 07:42 BP 125/78 04/22/24 07:40 Pulse Ox 94 L 04/22/24 07:37 O2 Del Method Room Air 04/22/24 07:37 Results Labs Labs: Short CBC 04/21/24 04/22/24 Range/Units 13:20 05:59 WBC 9.5 8.9 (4.0-11.0) 10^3/uL Hgb 13.0 L 11.2 L (14.0-18.0) g/dL Hct 41.2 L 36.1 L (42.0-54.0) % Plt Count 413 372 (150-450) 10^3/uL BMP 04/21/24 04/22/24 13:20 05:59 Sodium 125 L 133 L Potassium 4.4 4.1 Chloride 90 L 96 L Carbon Dioxide 32.5 H 29.8 BUN 13.0 11.0 Creatinine 1.09 0.88 Glucose 297 H 167 H Calcium 9.4 9.3 Liver Function 04/21/24 04/22/24 Range/Units 13:20 05:59 Total Bilirubin 0.7 0.6 (0.2-1.0) mg/dL AST 124 H 112 H (15-37) U/L ALT 159 H 135 H (16-63) U/L Alkaline Phosphatase 326 H 296 H (46-116) U/L Albumin 1.8 L 1.6 L (3.4-5.0) g/dL Assessment and Plan Assessment and Plan (1) Mass of right axilla: (2) Acute hyponatremia: Plan Impression: # Large bulky 6+ cm R axillary mass # Atypical lymphocytes on prelim biopsy # Hx of acoustic neuroma # Hard of hearing PLAN: - I reviewed R upper extremity US, CT chest, CT abdomen / pelvis, and prelim biopsy reports - I also evaluated pt at the bedside. We performed LDH and uric acid, both wnl - I discussed case with Dr Lauren from pathology. He also sent slides to [facility] and specimen is highly suggestive (but NOT diagnostic) of Hodgkin's lymphoma. - I discussed with Dr Damian. I agree with core biopsy with Dr Clemens tomorrow, to help classify lymphoma. Excisional bx is not needed. - we will coordinate outpt PET scan and follow NCCN guidelines for treatment which will likely involve chemo-immunotherapy, with high cure rate. He does not appear to have lymphoma involvement of the chest, abdomen pelvis. He will need to f/u with me in 1 week, post discharge. I did provide pt and family with my card, but please also include this in his discharge paperwork. Thank you for the consult. Will follow closely. Sonia Donnelly MD Hematology Oncology Face to face time: 55 mins
[2024-04-22] MEDS: INSULIN ASPART 300 UNIT/3 ML PEN SUBQ ×4 (08:41→21:31)
[2024-04-22] MEDS: PROSTAT 15 GM PROTEIN/100 CAL 30 ML LIQUID PACKET PO ×2 (08:42→21:32)
[2024-04-22] MEDS: ENSURE HP 237 ML LIQUID PO ×2 (08:42→21:32)
[2024-04-22] MEDS: AMLODIPINE BESYLATE 5 MG TABLET PO (08:43)
[2024-04-22] MEDS: LIOTHYRONINE SODIUM 5 MCG TABLET 10 MCG PO (08:43)
[2024-04-22] MEDS: METFORMIN HCL 500 MG TABLET 1000 MG PO (08:44)
[2024-04-22] MEDS: TAMSULOSIN HCL 0.4 MG CAPSULE PO (08:44)
[2024-04-22] MEDS: LOSARTAN POTASSIUM 50 MG TABLET 100 MG PO (08:44)
[2024-04-22] MEDS: VITS A,C,E/LUTEIN/MINERALS 1 TABLET 1 TAB PO (08:47)
[2024-04-22 08:51] LABS: Lactate Dehydrogenase 204 U/L (85-227)
[2024-04-22 08:54] LABS: Uric Acid 2.5 mg/dL (3.5-7.2)
--- NOTE | 2024-04-22 09:08 | CM.NOTE ---
Important Message From medicare discussed with pt, pt verbalizes understanding and signs paper. Original given to pt and copy placed on pt's chart.
--- NOTE | 2024-04-22 09:43 | REH.PTDLY ---
Physical Therapy Daily Note PT Daily Note/Assess Start: 04/22/24 09:33 Freq: Status: Active Protocol: Document 04/22/24 09:34 [id number] (Rec: 04/22/24 09:43 PAULY [id number]) Physical Therapy Daily Note/Assessment Time In 08:55 Time Out 09:15 Subjective Pt up in chair upon arrival. States he will go for a little walk, but tired. Therapeutic Exercise Minutes (minutes) 5 Therapeutic Exercise Units 1 Therapeutic Exercise Treatment Instructed in B LE seated exs bedside unsupported 10x ea with exs including HR/TR, LAQ, marching, and hip abd step outs. Pt reports his legs just feel stiff. Cues needed with LAQ and marching for greater ROM. Therapeutic Activity Minutes (minutes) 10 Therapeutic Activity Units 1 Therapeutic Activity Comments Sit to stand transfers with pt pushing off from chair CGA. Gait training with no AD CGA 125 feet with mild sway at times, but no LOB noted. Pt ambulates with slightly forward flexed posture and slower pace. Pt performs sit to stand transfers from bed SBA. Requires Mod A with B LE with sit to supine transfer. Total Therapy Minutes 15 Total Physical Therapy Units 2 Daily Note Summary Pt able to ambulate a good gait distance with mild sway noted and occasionally reaching for wall or HR on wall. Pt would benefit from use of a SC when ambulating on his own for safety. Pt fatigues with LE exs and requires Mod A with LEs to lay supine. Bed alarm on at end of rx for safety.
--- NOTE | 2024-04-22 10:10 | SWNOTE1 ---
SW met with pt to discuss dc needs. Pt lives at home with his . Pt does not normally use DME at home, unsure if he will need anything at discharge. SW spoke to pt about discharge planning and the recommendation of home health. Pt voiced he just wants to know what is going on with him. He stated he does not want to make that decision right now. Pt also stated he walked down the [place] with therapy and once he got back he was exhausted and it took it out of him. Pt is unsure of his dc needs at this time. JOSÉ MIGUEL asked if his was coming later today and he stated yes around lunch. SW to stop back in later today to discuss home health with .
[2024-04-22 11:09] LABS: Glucometer 212 mg/dL (74-106)
--- NOTE | 2024-04-22 11:45 | PM.GSCN ---
History of Present Illness Consult details Consult date: 04/22/24 Requesting physician: Jah Damian Narrative: patient seen/examined/chart and ct images reviewed/consult dictated; plan right axillary lymph node biopsy tomorrow under anesthesia for lymphoma work up; informed consent obtained. [facility] Medical History (Updated 04/21/24 @ 14:33 by JEANCARLOS Wren) Pulmonary arterial hypertension ?I27.21 - Secondary pulmonary arterial hypertension (ICD-10) ENE (obstructive sleep apnea) ?G47.33 - Obstructive sleep apnea (adult) (pediatric) (ICD-10) COVID ?U07.1 - COVID-19 (ICD-10) Anxiety ?F41.9 - Anxiety disorder, unspecified (ICD-10) BPH (benign prostatic hyperplasia) ?N40.0 - Benign prostatic hyperplasia without lower urinary tract symptoms (ICD-10) Weight loss ?R63.4 - Abnormal weight loss (ICD-10) Axillary lymphadenopathy ?R59.0 - Localized enlarged lymph nodes (ICD-10) Deafness in right ear ?H91.91 - Unspecified hearing loss, right ear (ICD-10) Acoustic neuroma ?D33.3 - Benign neoplasm of cranial nerves (ICD-10) Overactive bladder ?N32.81 - Overactive bladder (ICD-10) Hypertension ?I10 - Essential (primary) hypertension (ICD-10) Hyperlipidemia ?E78.5 - Hyperlipidemia, unspecified (ICD-10) Glucosuria ?R81 - Glycosuria (ICD-10) Diabetes mellitus ?E11.9 - Type 2 diabetes mellitus without complications (ICD-10) BPH with obstruction/lower urinary tract symptoms ?N40.1 - Benign prostatic hyperplasia with lower urinary tract symptoms (ICD-10) ?N13.8 - Other obstructive and reflux uropathy (ICD-10) Surgical History (Updated 02/11/24 @ 07:52 by Ina Gale) History of ear surgery ?Z98.890 - Other specified postprocedural states (ICD-10) History of tonsillectomy ?Z90.89 - Acquired absence of other organs (ICD-10) History of spinal fusion ?Z98.1 - Arthrodesis status (ICD-10) History of colonoscopy ?Z98.890 - Other specified postprocedural states (ICD-10) Family History (Updated 04/21/24 @ 14:57 by Susy Echeverria LPN) Mother Heart disease Other Family history of COPD (chronic obstructive pulmonary disease) Social History (Updated 04/21/24 @ 14:57 by Susy Echeverria LPN) Within the past year, how often did you have a drink containing alcohol: never Score interpretation: A score less than 4 is consistent with normal alcohol consumption. Smoking status: Never smoker Non-prescribed substance use: denies use Previous occupational history: retired Highest level of school completed/degree received: high school graduate Little interest or pleasure in doing things: not at all Feeling down, depressed, or hopeless: not at all Feel stressed/tense/nervous/anxious/difficulty sleeping: not at all Due to disability, difficulty making decisions: No Do you think of yourself as: straight/heterosexual Gender Identity: male Meds Home Medications and Allergies Home Medications ?Medication ?Instructions ?Recorded ?Confirmed ?Type losartan 100 mg tablet 100 mg PO DAILY 02/01/24 04/21/24 History metformin 1,000 mg tablet 1,000 mg PO BID 02/01/24 04/21/24 History sitagliptin phosphate 100 mg 100 mg PO DAILY 02/01/24 04/21/24 History tablet (Januvia) tamsulosin 0.4 mg capsule (Flomax) 0.4 mg PO DAILY 02/01/24 04/21/24 History insulin glargine 100 unit/mL (3 10 unit subcut .qhs 04/11/24 04/21/24 History mL) subcutaneous pen (Lantus Solostar U-100 Insulin) omeprazole 20 mg capsule,delayed 20 mg PO DAILY 04/11/24 04/21/24 History release vitamins A,C,T-rdjx-ronjml 4,296 1 cap PO DAILY 04/11/24 04/21/24 History mcg-226 mg-90 mg capsule (PreserVision AREDS) amlodipine 5 mg tablet 5 mg PO .qd 04/21/24 04/21/24 History atorvastatin 10 mg tablet 10 mg PO .qd 04/21/24 04/21/24 History glucagon 1 mg solution for 1 mg IV PRN 04/21/24 04/21/24 History injection (Glucagon Emergency Kit) Allergies Allergy/AdvReac Type Severity Reaction Status Date / Time No Known Drug Allergies Allergy Verified 04/21/24 13:18 Exam Constitutional Vital Signs, click to edit/add: Last Vital Signs Temp 97.9 F 04/22/24 11:28 Pulse 89 04/22/24 11:28 Resp 16 04/22/24 11:28 BP 107/68 04/22/24 11:28 Pulse Ox 94 L 04/22/24 11:38 O2 Del Method Room Air 04/22/24 11:38 Results Labs Labs: Abnormal lab results 04/21/24 04/21/24 04/21/24 Range/Units 13:20 14:55 15:14 RBC (4.70-6.10) 10^6/uL Hgb 13.0 L (14.0-18.0) g/dL Hct 41.2 L (42.0-54.0) % MCV 78.8 L (80.0-94.0) fL MCH 24.9 L (25.9-34.0) pg RDW 16.1 H (11.0-15.0) % MPV 8.6 L (9.5-13.5) fL Lymph % (Auto) 12.0 L (20.5-60.0) % [place] % (Auto) (1.7-12.0) % Eos % (Auto) 0.3 L (0.9-7.0) % Neut # (Auto) 7.1 H (1.4-6.5) 10^3/uL Lymph # (Auto) 1.1 L (1.2-3.8) 10^3/uL [place] # (Auto) 1.1 H (0.3-0.8) 10^3/uL Abs Immat Gran (auto) 0.08 H (0.00-0.03) 10^3/uL Imm/Tot Granulo (auto) 0.8 H (0.0-0.5) % PT 12.2 H (9.0-11.6) sec APTT 37.1 H (22.3-36.2) sec Sodium 125 L (136-145) mmol/L Chloride 90 L (98-107) mmol/L Carbon Dioxide 32.5 H (21.0-32.0) mmol/L Glucose 297 H (74-106) mg/dL Uric Acid (3.5-7.2) mg/dL AST 124 H (15-37) U/L ALT 159 H (16-63) U/L Alkaline Phosphatase 326 H (46-116) U/L Ammonia <10 L (11-32) umol/L Albumin 1.8 L (3.4-5.0) g/dL Cortisol 32.2 H (6.2-19.4) ug/dL POC Glucose 254 H (74-106) mg/dL 04/21/24 04/21/24 04/22/24 Range/Units 21:26 22:35 05:59 RBC 4.60 L (4.70-6.10) 10^6/uL Hgb 11.2 L (14.0-18.0) g/dL Hct 36.1 L (42.0-54.0) % MCV 78.5 L (80.0-94.0) fL MCH 24.3 L (25.9-34.0) pg RDW 16.0 H (11.0-15.0) % MPV 8.6 L (9.5-13.5) fL Lymph % (Auto) 11.9 L (20.5-60.0) % [place] % (Auto) 14.3 H (1.7-12.0) % Eos % (Auto) (0.9-7.0) % Neut # (Auto) (1.4-6.5) 10^3/uL Lymph # (Auto) 1.1 L (1.2-3.8) 10^3/uL [place] # (Auto) 1.3 H (0.3-0.8) 10^3/uL Abs Immat Gran (auto) 0.07 H (0.00-0.03) 10^3/uL Imm/Tot Granulo (auto) 0.8 H (0.0-0.5) % PT (9.0-11.6) sec APTT (22.3-36.2) sec Sodium 133 L (136-145) mmol/L Chloride 96 L (98-107) mmol/L Carbon Dioxide (21.0-32.0) mmol/L Glucose 167 H (74-106) mg/dL Uric Acid 2.5 L (3.5-7.2) mg/dL AST 112 H (15-37) U/L ALT 135 H (16-63) U/L Alkaline Phosphatase 296 H (46-116) U/L Ammonia (11-32) umol/L Albumin 1.6 L (3.4-5.0) g/dL Cortisol (6.2-19.4) ug/dL POC Glucose 251 H 242 H (74-106) mg/dL 04/22/24 04/22/24 Range/Units 07:18 11:07 RBC (4.70-6.10) 10^6/uL Hgb (14.0-18.0) g/dL Hct (42.0-54.0) % MCV (80.0-94.0) fL MCH (25.9-34.0) pg RDW (11.0-15.0) % MPV (9.5-13.5) fL Lymph % (Auto) (20.5-60.0) % [place] % (Auto) (1.7-12.0) % Eos % (Auto) (0.9-7.0) % Neut # (Auto) (1.4-6.5) 10^3/uL Lymph # (Auto) (1.2-3.8) 10^3/uL [place] # (Auto) (0.3-0.8) 10^3/uL Abs Immat Gran (auto) (0.00-0.03) 10^3/uL Imm/Tot Granulo (auto) (0.0-0.5) % PT (9.0-11.6) sec APTT (22.3-36.2) sec Sodium (136-145) mmol/L Chloride (98-107) mmol/L Carbon Dioxide (21.0-32.0) mmol/L Glucose (74-106) mg/dL Uric Acid (3.5-7.2) mg/dL AST (15-37) U/L ALT (16-63) U/L Alkaline Phosphatase (46-116) U/L Ammonia (11-32) umol/L Albumin (3.4-5.0) g/dL Cortisol (6.2-19.4) ug/dL POC Glucose 180 H 212 H (74-106) mg/dL Diabetes panel 04/21/24 04/22/24 Range/Units 13:20 05:59 Sodium 125 L 133 L (136-145) mmol/L Potassium 4.4 4.1 (3.5-5.1) mmol/L Chloride 90 L 96 L (98-107) mmol/L Carbon Dioxide 32.5 H 29.8 (21.0-32.0) mmol/L BUN 13.0 11.0 (7.0-18.0) mg/dL Creatinine 1.09 0.88 (0.70-1.30) mg/dL Glucose 297 H 167 H (74-106) mg/dL Calcium 9.4 9.3 (8.5-10.1) mg/dL AST 124 H 112 H (15-37) U/L ALT 159 H 135 H (16-63) U/L Alkaline Phosphatase 326 H 296 H (46-116) U/L Total Protein 8.2 7.0 (6.4-8.2) g/dL Albumin 1.8 L 1.6 L (3.4-5.0) g/dL Calcium panel 04/21/24 04/22/24 Range/Units 13:20 05:59 Calcium 9.4 9.3 (8.5-10.1) mg/dL Albumin 1.8 L 1.6 L (3.4-5.0) g/dL Pituitary panel 04/21/24 04/22/24 Range/Units 13:20 05:59 Sodium 125 L 133 L (136-145) mmol/L Potassium 4.4 4.1 (3.5-5.1) mmol/L Chloride 90 L 96 L (98-107) mmol/L Carbon Dioxide 32.5 H 29.8 (21.0-32.0) mmol/L BUN 13.0 11.0 (7.0-18.0) mg/dL Creatinine 1.09 0.88 (0.70-1.30) mg/dL Glucose 297 H 167 H (74-106) mg/dL Calcium 9.4 9.3 (8.5-10.1) mg/dL Adrenal panel 04/21/24 04/22/24 Range/Units 13:20 05:59 Sodium 125 L 133 L (136-145) mmol/L Potassium 4.4 4.1 (3.5-5.1) mmol/L Chloride 90 L 96 L (98-107) mmol/L Carbon Dioxide 32.5 H 29.8 (21.0-32.0) mmol/L BUN 13.0 11.0 (7.0-18.0) mg/dL Creatinine 1.09 0.88 (0.70-1.30) mg/dL Glucose 297 H 167 H (74-106) mg/dL Calcium 9.4 9.3 (8.5-10.1) mg/dL Total Bilirubin 0.7 0.6 (0.2-1.0) mg/dL AST 124 H 112 H (15-37) U/L ALT 159 H 135 H (16-63) U/L Alkaline Phosphatase 326 H 296 H (46-116) U/L Total Protein 8.2 7.0 (6.4-8.2) g/dL Albumin 1.8 L 1.6 L (3.4-5.0) g/dL All other labs normal. Assessment and Plan Assessment and Plan (1) Mass of right axilla: (2) Acute hyponatremia:
--- NOTE | 2024-04-22 13:38 | SWNOTE1 ---
SW spoke to pt's in room. SW discussed discharge planning with . SW explained what home health services consist of. Pt's voiced she does not think they will do HH at this time. Likely will take him home and see if he improves. She stated her son is at home during the day and works at night, he is 33 years old. She voiced they have a pole barn out back and he walks out there daily. She stated he is just tired after doing that. SW did let know that pt's PCP can set up home health from office as well. SW let her know that it may have been mentioned for pt to go to rehab, but at this time it is not recommended, just home health is recommended. At this time pt and refusing home health. SW to stop back in tomorrow to see if pt has any needs at discharge. SW also asked if pt has a walker or cane at home. Pt's stated no. SW did let her know that Medicare pays for one DME every 5 years and we can go through insurance to get walker or cane if needed. She is going to speak with patient. SW also let her know that sometimes walkers or canes can be found at [employer] for cheap. Pt's voiced understanding. SW to follow as needed.
[2024-04-22 14:10] LABS: EBV Ab VCA, IgG >600.0 U/mL (0.0-17.9); EBV Ab VCA, IgM <36.0 U/mL (0.0-35.9)
[2024-04-22 14:36] LABS: Sodium Urine Random 74 mmol/L (30-90)
[2024-04-22 15:04] LABS: Bilirubin Urine NEGATIVE (NEGATIVE); Blood Urine TRACE-L (NEGATIVE); Clarity Urine CLEAR (CLEAR); Color Urine YELLOW (YELLOW); Glucose Urine UA NEGATIVE (NEGATIVE); Ketones Urine NEGATIVE (NEGATIVE); Leukocyte Esterase Urine NEGATIVE (NEGATIVE); Nitrite Urine NEGATIVE (NEGATIVE); Protein Urine NEGATIVE (NEG/TRACE)
[2024-04-22 15:22] LABS: WBC Urine NONE SEEN #/HPF (NONE SEEN)
[2024-04-22 15:23] LABS: Bacteria Urine NONE SEEN #/HPF (NONE SEEN); Crystals Seen? Seen #/HPF (None Seen); Mucus Urine TRACE (NONE SEEN); RBC Urine 0-2 #/HPF (0-2); Squamous Epithelial Cell Urine FEW #/LPF (NONE/RARE); Uric Acid Crystals Urine MANY
[2024-04-22 15:24] LABS: Urine Culture Indicated ALREADY ORDERED
[2024-04-22 16:06] LABS: Glucometer 181 mg/dL (74-106)
[2024-04-22] MEDS: ACETAMINOPHEN 500 MG TABLET 1000 MG PO (17:04)
[2024-04-22] MEDS: ZINC OXIDE 30% CREAM 113.4 GM TUBE 1 APPLIC TOPICAL (17:12)
[2024-04-22 21:32] LABS: Glucometer 226 mg/dL (74-106)
[2024-04-22] MEDS: INSULIN DETEMIR 300 UNIT/3 ML INSULN.PEN 20 UNIT SQ (21:32)
[2024-04-23] VITALS (61 sets, daily range): BP systolic 111–139; BP diastolic 65–83; PULSE 75–120; TEMP 36.4–36.8; O2SAT 92–95
--- NOTE | 2024-04-23 | OP_ITS ---
OPERATION DATE: 04/23/2024 PREOPERATIVE DIAGNOSIS: Enlarging right axillary adenopathy, non-diagnostic needle biopsy. POSTOPERATIVE DIAGNOSIS: Enlarging right axillary adenopathy, non-diagnostic needle biopsy. PROCEDURE: Incisional biopsy of matted right axillary adenopathy. SURGEON: Jassi Clemens M.D. ANESTHESIA: General with laryngeal mask airway, as well as local with 0.5% Marcaine plain. ESTIMATED BLOOD LOSS: Less than 10 mL. INDICATIONS AND CONSENT: patient has a 6 month h/o enlarging adenopathy limited to right axilla, needle biopsy nondiagnostic; patient now presents for open incisional biopsy for tissue diagnosis for possible lymphoma; the indications, risks, benefits and alternatives were explained in detail to patient; including the risk of bleeding, infection, seroma/lymphocele, nerve injury, arm swelling, nondiagnostic biopsy, need for further surgery, and informed consent was obtained. PROCEDURE: Patient brought to the operating room, placed in the supine position. General anesthesia was induced. He was prepped and draped in the usual sterile fashion. Curvilinear incision was made in the area of the skin crease, below the area of hair bearing skin in the right axilla. It was carried down through subcutaneous using electrocautery. A large matted area of lymph nodes was identified. It initially was freed up circumferentially to try to remove one large node; however, it became clear that these were all matted, deeper and more cephalad with significant vascular structures that would preclude safe excision of the entire mass. Therefore, the lymph node capsule was incised with cautery, and an approximately 2 cm area of the lymph node was excised and sent fresh to Pathology for lymphoma work up. The capsule was then closed with interrupted 3-0 Vicryl and 3-0 chromic sutures with good hemostasis. The subcutaneous tissue was re-approximated with interrupted 3-0 Monocryl suture. Skin was then closed with a running 4-0 subcuticular Monocryl suture and skin glue. Sterile pressure dressing was applied. Sponge and needle counts were correct x3 per nursing personnel. Estimated blood loss was less than 10 mL. CC: LATASHA MyersD
[2024-04-23] MEDS: 0.9 % SODIUM CHLORIDE 1,000 ML 125 ML IV (01:11)
[2024-04-23 06:28] LABS: Basophils Percent Auto 0.5 % (0.2-2.0); Eosinophils Absolute Auto 0.1 10^3/uL (0.0-0.7); Eosinophils Percent Auto 0.7 % (0.9-7.0); Hematocrit 35.2 % (42.0-54.0); Immature Granulocytes Abs Auto 0.05 10^3/uL (0.00-0.03); Immature Granulocytes Pct Auto 0.6 % (0.0-0.5); Lymphocytes Absolute Auto 1.2 10^3/uL (1.2-3.8); Lymphocytes Percent Auto 14.9 % (20.5-60.0); Mean Corpuscular HGB Conc 31.3 g/dL (29.9-35.2); Mean Corpuscular Hemoglobin 24.4 pg (25.9-34.0); Mean Corpuscular Volume 78.2 fL (80.0-94.0); Mean Platelet Volume 8.8 fL (9.5-13.5); Monocytes Absolute Auto 1.1 10^3/uL (0.3-0.8); Monocytes Percent Auto 13.2 % (1.7-12.0); Neutrophils Absolute Auto 5.7 10^3/uL (1.4-6.5); Neutrophils Percent Auto 70.1 % (43.0-75.0); Platelet Count 373 10^3/uL (150-450); Red Cell Distribution Width 16.2 % (11.0-15.0); White Blood Count 8.2 10^3/uL (4.0-11.0)
[2024-04-23 06:52] LABS: Alanine Aminotransferase 103 U/L (16-63); Albumin Globulin Ratio 0.3; Albumin Level 1.5 g/dL (3.4-5.0); Alkaline Phosphatase 254 U/L (46-116); Anion Gap 12.1; Aspartate Amino Transferase 65 U/L (15-37); BUN Creatinine Ratio 13.2; Bilirubin Total 0.5 mg/dL (0.2-1.0); Calcium 8.9 mg/dL (8.5-10.1); Carbon Dioxide 27.5 mmol/L (21.0-32.0); Chloride 100 mmol/L (98-107); Estimated GFR (African America >60 (>=60); Estimated GFR (Non-African Ame >60 (>=60); Globulin 5.1 g/dL; Glucose 88 mg/dL (74-106); Potassium 3.6 mmol/L (3.5-5.1); Sodium 136 mmol/L (136-145); Total Protein 6.6 g/dL (6.4-8.2)
--- NOTE | 2024-04-23 07:55 | P.DS_ITS ---
DS: Providers Provider Date of admission: 04/22/24 07:16 Primary care physician: ONEYDA GREEN Consults: 04/21/24 14:35 Consult to Oncology Routine Consulting Provider: Sonia Donnelly Reason for consultation: eval of Axillary bx Has provider been notified: No Consult to Pharmacy Routine Consulting Provider: Reason for consultation: Please [place] me when Med Rec is Updated Has provider been notified: No Occupational Therapy Eval and Treat Routine Reason for consultation: Only if needed for Rehab Has provider been notified: No Physical Therapy Eval and Treat Routine Reason for consultation: Eval and Treat Has provider been notified: No 04/21/24 19:09 Consult to General Surgeon Routine Consulting Provider: Jassi Clemens Reason for consultation: R axillary nmass DS: Diagnosis Discharge Diagnosis (1) Mass of right axilla: (2) Acute hyponatremia: Plan Admission findings: Iron deficiency anemia, significant hyponatremia uncontrolled diabetes mellitus, elevated liver function test and severe protein calorie malnutrition Severe hyponatremia with sodium of 125 on admission-improved at the time of discharge Right axillary mass with atypical lymphocytes but not specific for lymphoma. Repeat open biopsy pending Elevated liver function test- ct with hepatomegaly but no masses , no obstructions, stable to slightly improved at the time of discharge Coagulopathy - due to the above - consider repeat testing Ileus noted on CT scan but patient without significant abdominal pain or nausea vomiting Anemia-likely iron deficient-will workup as an outpatient. Follow as an outpatient Uncontrolled diabetes mellitus likely contributing to the hyponatremia-home insulin medication adjusted Admission status: Started as obs, still with significant symptomatic hyponatremia and dehydration, medically necessary treatment to span two midnight for IV fluids and oncology and surgical intervention. Change to inpatient status DS: Summary Hospital Course Hospital Course: Patient was seen in the emergency room secondary to increasing weakness, severe hyponatremia with a sodium of 125, so his symptomatic hyponatremia was treated with normal saline. His hyponatremia was improved yesterday but not to the point he was asymptomatic still. He was given hydration for an additional day. Open biopsy of his right axillary mass, likely lymphoma, to be completed this morning. His hyponatremia is resolved, his symptoms are much improved. Liver function test still elevated but overall improving. Assuming no complications with surgery he would be medically cleared for discharge to home. Medications see list. Follow-up with his PCP end of next week. Should have open biopsy results back by then. Is poorly controlled diabetes mellitus, adjusted home insulin is long-acting to 20 units. Status at Discharge Overall status at discharge: patient is not back to baseline Time Spent with Patient Time attestation: Total time spent providing and/or coordinating discharge services: Time spent: greater than 30 minutes Exam Constitutional Vital Signs, click to edit/add: Last Vital Signs Temp 98.0 F 04/23/24 07:42 Pulse 84 04/23/24 07:42 Resp 16 04/23/24 07:42 BP 127/68 04/23/24 07:42 Pulse Ox 94 L 04/23/24 07:42 O2 Del Method Room Air 04/23/24 07:42 Documenting provider has reviewed patient's vital signs: yes Common normals: no apparent distress (Very hard of hearing) Chest Common normals: inspection of chest normal and palpation of chest normal Respiratory Common normals: normal respiratory effort, no retractions and clear to auscultation bilaterally Cardio Common normals: regular rate and regular rhythm; murmurs detected Heart sounds: murmur (Workup as an outpatient unremarkable) systolic GI Common normals: Normal to inspection, nondistended, normoactive bowel sounds present, soft to palpation, non-tender, no hepatosplenomegaly and no masses Extremity Common normals: no calf tenderness and no pedal edema; abnormal to inspection (Large axillary mass) DS: Data Data Completed and Pending Labs on day of discharge: Labs from last 24 hours 04/23/24 04/22/24 04/22/24 06:11 21:30 16:05 WBC 8.2 RBC 4.50 L Hgb 11.0 L Hct 35.2 L MCV 78.2 L MCH 24.4 L MCHC 31.3 RDW 16.2 H Plt Count 373 MPV 8.8 L Neut % (Auto) 70.1 Lymph % (Auto) 14.9 L [place] % (Auto) 13.2 H Eos % (Auto) 0.7 L Baso % (Auto) 0.5 Neut # (Auto) 5.7 Lymph # (Auto) 1.2 [place] # (Auto) 1.1 H Eos # (Auto) 0.1 Baso # (Auto) 0.0 Abs Immat Gran (auto) 0.05 H Imm/Tot Granulo (auto) 0.6 H Sodium 136 Potassium 3.6 Chloride 100 Carbon Dioxide 27.5 Anion Gap 12.1 BUN 9.0 Creatinine 0.68 L Est GFR ( Amer) >60 Est GFR (Non-Af Amer) >60 BUN/Creatinine Ratio 13.2 Glucose 88 Uric Acid Calcium 8.9 Total Bilirubin 0.5 AST 65 H ALT 103 H Alkaline Phosphatase 254 H Lactate Dehydrogenase Total Protein 6.6 Albumin 1.5 L Globulin 5.1 Albumin/Globulin Ratio 0.3 Cortisol Urine Color Urine Clarity Urine pH Ur Specific [place] Urine Protein Urine Glucose (UA) Urine Ketones Urine Occult Blood Urine Nitrite Urine Bilirubin Urine Urobilinogen Ur Leukocyte Esterase Urine RBC Urine WBC Ur Squamous Epith Cells Urine Crystals Uric Acid Crystals Urine Bacteria Urine Mucus Ur Culture Indicated? Ur Random Sodium EBV Capsid Ag IgG Ab EBV Capsid Ag IgM Ab EBV Nuclear Antigen Ab EBV Antibody Interp POC Glucose 226 H 181 H 04/22/24 04/22/24 04/22/24 14:01 11:07 05:59 WBC RBC Hgb Hct MCV MCH MCHC RDW Plt Count MPV Neut % (Auto) Lymph % (Auto) [place] % (Auto) Eos % (Auto) Baso % (Auto) Neut # (Auto) Lymph # (Auto) [place] # (Auto) Eos # (Auto) Baso # (Auto) Abs Immat Gran (auto) Imm/Tot Granulo (auto) Sodium Potassium Chloride Carbon Dioxide Anion Gap BUN Creatinine Est GFR ( Amer) Est GFR (Non-Af Amer) BUN/Creatinine Ratio Glucose Uric Acid 2.5 L Calcium Total Bilirubin AST ALT Alkaline Phosphatase Lactate Dehydrogenase 204 Total Protein Albumin Globulin Albumin/Globulin Ratio Cortisol Urine Color Yellow Urine Clarity Clear Urine pH 6.0 Ur Specific [place] 1.020 Urine Protein Negative Urine Glucose (UA) Negative Urine Ketones Negative Urine Occult Blood Trace-l Urine Nitrite Negative Urine Bilirubin Negative Urine Urobilinogen 4.0 A Ur Leukocyte Esterase Negative Urine RBC 0-2 Urine WBC None seen Ur Squamous Epith Cells Few A Urine Crystals Seen A Uric Acid Crystals Many Urine Bacteria None seen Urine Mucus Trace A Ur Culture Indicated? Already ordered Ur Random Sodium 74 EBV Capsid Ag IgG Ab EBV Capsid Ag IgM Ab EBV Nuclear Antigen Ab EBV Antibody Interp POC Glucose 212 H 04/21/24 04/21/24 14:27 13:20 WBC RBC Hgb Hct MCV MCH MCHC RDW Plt Count MPV Neut % (Auto) Lymph % (Auto) [place] % (Auto) Eos % (Auto) Baso % (Auto) Neut # (Auto) Lymph # (Auto) [place] # (Auto) Eos # (Auto) Baso # (Auto) Abs Immat Gran (auto) Imm/Tot Granulo (auto) Sodium Potassium Chloride Carbon Dioxide Anion Gap BUN Creatinine Est GFR ( Amer) Est GFR (Non-Af Amer) BUN/Creatinine Ratio Glucose Uric Acid Calcium Total Bilirubin AST ALT Alkaline Phosphatase Lactate Dehydrogenase Total Protein Albumin Globulin Albumin/Globulin Ratio Cortisol 32.2 H Urine Color Urine Clarity Urine pH Ur Specific [place] Urine Protein Urine Glucose (UA) Urine Ketones Urine Occult Blood Urine Nitrite Urine Bilirubin Urine Urobilinogen Ur Leukocyte Esterase Urine RBC Urine WBC Ur Squamous Epith Cells Urine Crystals Uric Acid Crystals Urine Bacteria Urine Mucus Ur Culture Indicated? Ur Random Sodium EBV Capsid Ag IgG Ab >600.0 H EBV Capsid Ag IgM Ab <36.0 EBV Nuclear Antigen Ab 220.0 H EBV Antibody Interp Comment POC Glucose Discharge Plan Discharge Disposition: Home, Self-Care Condition: Good Discharge Medications: New liothyronine 5 mcg Tablet 10 mcg PO QD Qty: 60 11RF Ensure Active Protein-Muscle Liquid 1 ea PO BID Qty: 5688 11RF Continued Januvia 100 mg tablet 100 mg PO DAILY losartan 100 mg tablet 100 mg PO DAILY metformin 1,000 mg tablet 1,000 mg PO BID tamsulosin [Flomax] 0.4 mg capsule 0.4 mg PO DAILY omeprazole 20 mg capsule,delayed release(DR/EC) 20 mg PO DAILY PreserVision AREDS 4,296 mcg-226 mg-90 mg capsule 1 cap PO DAILY atorvastatin 10 mg tablet 10 mg PO .qd Glucagon Emergency Kit (human) 1 mg recon soln 1 mg IV PRN Changed insulin glargine [Lantus Solostar U-100 Insulin] 100 unit/mL (3 mL) insulin pen 20 unit SUBCUT .qhs Qty: 0 0RF Discontinued amlodipine 5 mg tablet 5 mg PO .qd Print Language: Fijian Forms: Portal Instructions Follow Up Appointments: dr donnelly @ [facility] sunday @ 1300
[2024-04-23] MEDS: LACTATED RINGER'S SOLUTION 1,000 ML 50 ML IV ×2 (08:50→12:20)
[2024-04-23 10:09] LABS: Osmolality, Urine 483 mOsmol/kg (.)
[2024-04-23] MEDS: CEFAZOLIN SODIUM/DEXTROSE,ISO 2 GM/50 ML PIGGYBACK IV (11:07)
[2024-04-23] MEDS: BUPIVACAINE HCL 0.5% PF 50 MG/10 ML VIAL INJ (12:27)
[2024-04-23 12:48] LABS: Glucometer 106 mg/dL (74-106)
[2024-04-23] MEDS: ACETAMINOPHEN 500 MG TABLET 1000 MG PO (13:00)
--- NOTE | 2024-04-23 13:10 | CM.NOTE ---
Discussed discharge planning with again regarding any HH services, and pt continue to refuse any HH services. states she just spoke with surgeon and biopsy was completed successfully and area was sutured closed, she feels confident with discharge to home without services.
--- NOTE | 2024-04-23 14:19 | PT.DAILY ---
Physical Therapy Daily Note PT Daily Note/Assess Start: 04/22/24 09:33 Freq: Status: Active Protocol: Document 04/23/24 14:17 MEJIA (Rec: 04/23/24 14:19 MEJIA [id number]) Visit Not Completed Visit Not Completed Visit Not Completed Due to: Pt refusing,Other Other Reason Visit Not Completed Pt just returned from recovery from surgery. Just not ready to get up and moving yet. Very pleasant and is present at this time. Planned dc this afternoon. Physical Therapy Daily Note/Assessment Time In/Time Out Time In 13:43 Time Out 13:43 Pain In Pain N/A Pain Out Pain N/A GG. Functional Abilities and Goals-Complete for Swing Bed Patients Only [id number]. Self-Care [id number]. Mobility
--- NOTE | 2024-04-24 13:17 | CM.DCFOLLOWU ---
Person spoke with: patient's , pt is hard of hearing and asked for me to speak with How are you feeling? well, much better, pt and sitting outside and that is first time they have been able to do that for awhile How is your pain?none Did you understand your discharge instructions?yes Do you have any questions about your discharge instructions?no Were you given any prescriptions at discharge?yes Were you able to get your prescriptions filled?yes Do you understand how to take your medications as ordered?yes Do you have any questions about your follow up appointment and do you plan to keep your follow up appointment? no questions, follow ups reviewed with Is there anything else that you would like to discuss?no Questions/Comments/Concerns/Other:none
== END 2024-04-23 15:16 | disposition home or self-care (01) | DRG 628 ==
LOC: ER 14:33 → MS 15:04
PROVIDERS: Internal Medicine Hematology & Oncology; Physician Assistant; Surgery; Admitting Provider Family Medicine; Emergency Provider Emergency Medicine; PCP Nurse Practitioner Family; Visit Provider Family Medicine
DX: E87.1 Hypo-osmolality and hyponatremia (principal); E43 Unspecified severe protein-calorie malnutrition; C81.4 Lymphocyte-rich Hodgkin lymphoma; K56.7 Ileus, unspecified; D68.9 Coagulation defect, unspecified; D50.9 Iron deficiency anemia, unspecified; E11.65 Type 2 diabetes mellitus with hyperglycemia; R79.89 Other specified abnormal findings of blood chemistry; Z68.22 Body mass index [BMI] 22.0-22.9, adult; G47.33 Obstructive sleep apnea (adult) (pediatric); I27.21 Secondary pulmonary arterial hypertension; K21.9 Gastro-esophageal reflux disease without esophagitis; N40.0 Benign prostatic hyperplasia without lower urinary tract symptoms; F41.9 Anxiety disorder, unspecified; H91.91 Unspecified hearing loss, right ear; E78.5 Hyperlipidemia, unspecified; E11.9 Type 2 diabetes mellitus without complications; Z98.890 Other specified postprocedural states; Z79.4 Long term (current) use of insulin; Z98.1 Arthrodesis status; Z86.16 Personal history of COVID-19; Z90.89 Acquired absence of other organs; Z79.899 Other long term (current) drug therapy; Z79.84 Long term (current) use of oral hypoglycemic drugs
CPT/HCPCS: 36415; 70450; 74177; 80053; 81001; 82140; 82150; 82533; 82948; 83615; 83690; 83735; 83880; 83930; 83935; 84300; 84550; 85025; 85610; 85730; 86664; 86665; 87070; 87086; 88305; 88341; 88342; 93005; 94667; 94668; 94761; 97110; 97162; 97165; 97530; 97535; 99285; G0378; J0665; J0690; J1100; J2250; J2405; J2704; J3010; Q9966; Q9967

== ENCOUNTER 2024-04-29 07:26 | Outpatient (OUT) | payer MEDICARE, SELFPAY ==
--- OUTSIDE RECORDS SUMMARY | 2024-04-29 07:30 | XMS_ITS | CCD ---
Author Organization [facility] Providers Care Enrober Name Role Phone PHYSICIAN, DEFAULT Unavailable Unavailable PHYSICIAN, DEFAULT Unavailable Unavailable PHYSICIAN, DEFAULT Unavailable Unavailable PHYSICIAN, DEFAULT Unavailable Unavailable PHYSICIAN, DEFAULT Unavailable Unavailable PHYSICIAN, DEFAULT Unavailable Unavailable UNKNOWN, PROVIDER Unavailable Unavailable UNKNOWN, PROVIDER Unavailable Unavailable YFN MATA Unavailable Unavailable ESPERANZA, YFN Unavailable Unavailable RAY, AILIN Admitting Unavailable RAY, AILIN Attending Unavailable RAY, AILIN Primary Care Unavailable RAY, AILIN Admitting Unavailable RAY AILIN Attending Unavailable RAY, AILIN Consulting Unavailable RAY, AILIN Primary Care Unavailable AILIN BAKER Attending Unavailable YFN MATA Primary Care Unavailable RAY, AILIN Consulting Unavailable RAY, AILIN Admitting Unavailable ILAN TODD Attending Unavailable ILAN TODD Consulting Unavailable ILAN TODD Admitting Unavailable RAY, AILIN Primary Care Unavailable AMARIS WALKER Consulting Unavailable AILIN GREEN Primary Care Physician [phone] JEROD MANUEL Attending Unavailable JEROD MANUEL Attending Unavailable DO González Moon Primary Care Provider [phone] MD Hoang Strange Attending Provider MD Jassi Clemens Attending Provider Moody POP Attending Unavailable Moody POP Attending Unavailable AILIN GREEN Referring Unavailable Jassi CLEMENS Attending Unavailable Moody POP Attending Unavailable Hoang Strange Admitting Unavailable Hoang Strange Attending Unavailable González Moon Primary Care Unavailable Jassi Clemens Admitting Unavailable Jassi Clemens Attending Unavailable Allergies Allergy Classification Reported Allergen(s) Allergy Type Date of Onset Reaction(s) Facility (2 sources) No Known Allergies; 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: [No Known Allergies] Propensity to adverse reactions (disorder) 7 [facility] Repository (1 source) empagliflozin; 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: [EMPAGLIFLOZIN] Drug Allergy [facility] Repository (1 source) No Known Medication Allergies; 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: [No Known Medication Allergies] Propensity to adverse reactions (disorder) [facility] Repository Medications Current Medications Medication Drug [...] day(s), # 90 cap(s), Refills(s) 3, Pharmacy: [facility], 187, cm, 01/21/24 11:48:00 EDT, [...] completed, # 2 tab(s), Refills(s) 0, Pharmacy: [facility], 187, cm, 01/21/24 11:48:00 EDT, Height/Length [...] / UNK(Unknown) Onset: 2017 Unclassified (1 source) correction (current) use of oral hypoglycemic drugs; 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: [GROUP HOME (CURRENT) USE OF ORAL 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 DRUGS] Onset: 2017 Unclassified (1 source) Patient encounter status 01-21-2024 Viral infection (1 source) COVID-19; 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: [COVID-19] Onset: 12-08-2020 Past or Other Problems Problem Classification Problem Date Documented Da te Episodic/Chronic Other aftercare (1 source) correction (current) use of aspirin; 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: [CORE FILER (CURRENT) USE OF ASPIRIN] Onset: 2017 Episodic Other lower respiratory disease (3 sources) Cough; 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: [COUGH] Onset: 12-06-2020 Episodic Results Test Name Value Interpretation Reference Range Facility [facility] 04-11-2024 L Specimen: [id number] eceived: 04/14/24 Status: MERNA Req Num: [id number] Spec Type: Surgical Subm Dr: Hoang Strange MD Tissues: A Lymph Node - Biopsy (Needle or Incisional) (R AXILLA LYMPH NODE) B Gross Only (LYMPH NODE) Procedures: HE/2, Gross/Micro L4, Level 1 Gross Age/ Patient Sex Location Account Attending Physician Hoang Bonilla 68/M LABELL [id number] Hoang Strange MD SPEC NUM: [id number] RECD: 04/14/24 STATUS: MERNA REQ NUM: [id number] RANJITH: 04/11/24 DR: Hoang Strange MD ENTERED: 04/14/[address] [facility] [address]: Gregg Flores SPEC TYPE: Surgical DEPT: LUANA MOYER ENTERED BY: [id number] RECV BY: [id number] ORDERED: HE/2, Gross/Micro L4, Level 1 Gross ORDERED: HE/2, Gross/Micro L4, Level 1 Gross Supplemental Report Addendum 2 Entered: 04/21/24-1306 Supplemental for findings of consultation report from [facility]: A, -Extremity limited specimen compatible with malignancy, see comment Addendum Signed (signature on file) Trinity Lauren MD 04/21/24 1307 Addendum 1 Entered: 04/18/24-8913 Supplemental for findings of flow cytometry report from [facility]: -Tests canceled -This test is canceled due to poor sample quality / poor viability Specimen: [id number] Received: 04/14/24 Status: MERNA Rivera Num: [id number] Spec Type: Surgical Subm Dr: Hoang Strange MD Tissues: A Lymph Node - Biopsy (Needle or Incisional) (R AXILLA LYMPH NODE) B Gross Only (LYMPH NODE) Procedures: HE/2, Gross/Micro L4, Level 1 Gross Patient: Hoang Bonilla [id number] (Continued) Specimen: [id number] Received: 04/14/24 (Continued) Supplemental Report (Continued) Signed (signature on file) Trinity Lauren MD 04/17/24 1127 Specimen: [id number] Received: 04/14/24 Status: MERNA Rivera Num: [id number] Spec Type: Surgical Subm Dr: Hoang Strange MD Tissues: A Lymph Node - Biopsy (Needle or Incisional) (R AXILLA LYMPH NODE) B Gross Only (LYMPH NODE) Procedures: HE/2, Gross/Micro L4, Level 1 Gross Patient: Hoang Bonilla [id number] (Continued) Specimen: [id number] Received: 04/14/24 (Continued) Supplemental Report (Continued) Addendum Signed (signature on file) Trinity Lauren MD 04/18/24 1734 Pathological Diagnosis A, right axillary lymph node core biopsy: -Abnormal lymphoid tissue in all sections, demonstrating markedly effaced lymph vidal architecture with occasional scattered atypical lymphoid cells, including occasional individually large atypical cell with large atypical and pleomorphic nuclei with occasional binucleation or multinucleation and prominent nucleoli, suggesting atypical paraimmunoblasts or Hodgkin like cells, consistent with atypical lymphoproliferative disorder -Occasional PMN and apoptotic cells are also noticed in the background tissue -The tissue is largely exhausted in the deeper second levels of section and is not applicable for any additional special studies -Pending external consultation service B, right axillary lymph node, biopsy: -A single large valverde cylindrical segment of soft tissue. Gross only examination. Pending flow cytometry analysis to follow. Clinical Information Right axilla lymphadenopathy Gross Description Part a received in formalin with the patient's name and right axilla lymph node and consists of 3 valverde cylindrical core biopsies ranging in length from 0.6 to 1.4 cm each with an average diameter of 0.1 cm. The specimen is entirely submitted in cassette A1. Part B received fresh in container with the correct patient's name and right axilla lymph node the specimen consists of a single valverde-yellow cylindrical core measuring 2.0 cm in length with an average diameter of 0.1 cm. The specimen is submitted in RPMI for flow cytometry. The specimen is sent to an outside facility. DM Specimen: [id number] Received: 04/14/24 Status: MERNA Baileyradha Num: [id number] Spec Type: Surgical Subm Dr: Hoang Strange MD Tissues: A Lymph Node - Biopsy (Needle or Incisio (more content not included)... Normal [facility] Office Visiton 03-28-2024 Follow-up visit [id number] Allen Bonilla W 1955 M Date Provider Department Center 03/28/2024 Adrián-JEROD MANUEL Family History Problem Relation Age of Onset Coronary artery disease Mother Family Status - Relation Status Age at Mother Level of Service:98869 [place] OFFICE/OUTPATIENT ESTABLISHED MOD MDM 30 MIN Normal [facility] Office Visiton 02-25-2024 Follow-up visit [id number] Allen Bonilla 1955 M Date Provider Department Center 02/25/2024 AdriánJEROD MANEUL [facility] Mark Rosario Family History Problem Relation Age of Onset Coronary artery disease Mother Family Status - Relation Status Age at Mother Level of Service:80539 [place] OFFICE/OUTPATIENT NEW MODERATE MDM 45 MINUTES Normal [facility] Insurance Correspondenceon 0 01-30-2024 Insurance Correspondence [id number] Normal [facility] Consent for Procedure/Surger yon 01-22-2024 Consent for Procedure/Surgery [id number]#1.00TIFF Normal [facility] Physician Referralon 024 Physician Referral [id number]#[id number] Normal [facility] Screenson 01-22-2024 Screens [id number]#1.00TIFF Normal [facility] Ambulatory Visit Summaryon 0 01-21-2024 Ambulatory Visit Summary HOANG BONILLA :1955 Visit Date:01/21/2024 Ambulatory Visit Instructions Your [...] Jimenez When: Where: [facility] [address], [place] [address]- Medications What When Instructions Unchanged amlodipine (amLODIPine [...] urine (ur (more content not included)... Normal [facility] Patient Educationon 01-21-20 Patient Education Urology [...] Follow these instructions at home: ? Take bbko-lnv-cwlgozt and prescription medicines only as told by [...] the medicine (more content not included)... Normal [facility] INSULINon 08-27-2021 Insulin 19.2 uIU/mL Normal 2.6-24.9 [facility] Comment on above: Performed By: #### I NSULIN #### [facility] [address] [address] [address] Forrest Lauren CBC AUTO DIFFon 08-26-2021 BASO # 0.1 103/ul Normal 0.0-0.1 [facility] Comment on above: Performed By: #### P SASC #### [facility] [address] [address] [address] Forrest Lauren Basophils/100 WBC (Bld) 0.8 % Normal 0.2-2.0 [facility] Comment on above: Performed By: #### P SASC #### [facility] [address] [address] [address] Forrest Lauren EO # 0.4 103/ul Normal 0.0-0.7 [facility] Comment on above: Performed By: #### P SASC #### [facility] [address] [place] [address] Dr. Forrest Lauren Eosinophils/100 WBC (Bld) 4.8 % Normal 0.9-7.0 [facility] Comment on above: Performed By: #### P SASC #### [facility] [address] [place] [address] Dr. Forrest Lauren Erythrocyte distribution width (RBC) [Ratio] 12.7 % Normal 11.0-15.0 [facility] Comment on above: Performed By: #### P SASC #### [facility] [address] [place] [address] Dr. Forrest Lauren Hematocrit (Bld) [Volume fraction] 48.3 % Normal 42.0-54.0 [facility] Comment on above: Performed By: #### P SASC #### [facility] [address] [place] [address] Dr. Forrest Lauren Hemoglobin (Bld) [Mass/Vol] 16.4 g/dL Normal 14.0-18.0 [facility] Comment on above: Performed By: #### P SASC #### [facility] [address] [place] [address] Dr. Forrest Lauren IG # 0.05 10e3/ul Critically high 0.00-0.03 [facility] Comment on above: Performed By: #### P SASC #### [facility] [address] [place] [address] Dr. Forrest Lauren IG % 0.6 % Critically high 0.0-0.5 [facility] Comment on above: Performed By: #### P SASC #### [facility] [address] [place] [address] Dr. Forrest Lauren LYMPH # 2.0 103/ul Normal 1.2-3.8 [facility] [place] [facility] Comment on above: Performed By: #### P SASC #### [facility] [address] [address] [address] Forrest Lauren Lymphocytes/100 WBC (Bld) 22.6 % Normal 20.5-60.0 [facility] Comment on above: Performed By: #### P SASC #### [facility] [address] [place] [address] Dr. Forrest Lauren MANUAL DIFF REQ NO Normal [facility] Comment on above: Performed By: #### P SASC #### [facility] [address] [place] [address] Dr. Forrest Lauren MCH (RBC) [Entitic mass] 29.8 pg Normal 25.9-34.0 [facility] Comment on above: Performed By: #### P SASC #### [facility] [address] [place] [address] Dr. Forrest Lauren MCHC (RBC) [Mass/Vol] 34.0 g/dL Normal 29.9-35.2 [facility] Comment on above: Performed By: #### P SASC #### [facility] [address] [place] [address] Dr. Forrest Lauren MCV (RBC) [Entitic vol] 87.8 fL Normal 80.0-94.0 [facility] Comment on above: Performed By: #### P SASC #### [facility] [address] [place] [address] Dr. Forrest Lauren MONO # 0.7 103/ul Normal 0.3-0.8 [facility] Comment on above: Performed By: #### P SASC #### [facility] [address] [place] [address] Dr. Forrest Lauren Monocytes/100 WBC (Bld) 8.0 % Normal 1.7-12.0 [facility] Comment on above: Performed By: #### P SASC #### [facility] [address] [place] [address] Dr. Forrest Lauren NEUT # 5.7 103/ul Normal 1.4-6.5 [facility] Comment on above: Performed By: #### P SASC #### [facility] [address] [address] [address] Forrest Lauren Neutrophils/100 WBC (Bld) 63.2 % Normal 43.0-75.0 [facility] Comment on above: Performed By: #### P SASC #### [facility] [address] [address] [address] Forrest Lauren Platelet mean volume (Bld) [Entitic vol] 9.7 fL Normal 9.5-13.5 [facility] Comment on above: Performed By: #### P SASC #### [facility] [address] [address] [address] Forrest Lauren PLT 242 103/ul Normal 150-450 [facility] Comment on above: Performed By: #### P SASC #### [facility] [address] [address] [address] Forrest Lauren RBC 5.50 106/ul Normal 4.70-6.10 [facility] Comment on above: Performed By: #### P SASC #### [facility] [address] [address] [address] Forrest Lauren WBC 9.0 103/ul Normal 4.0-11.0 [facility] Comment on above: Performed By: #### P SASC #### [facility] [address] [address] [address] Forrest Lauren GLYCOHEMOGLOBIN A1Con 2021 ADA RECOMMENDATION ADA THERAPEUTIC TARGET 6.0 - 7.0 ACTION SUGGESTED > 7.0 Normal [facility] Comment on above: Performed By: #### A 1C #### [facility] [address] [address] [address] Forrest Lauren Glucose [Mass/Vol] 194 mg/dL Normal [facility] Comment on above: Performed By: #### A 1C #### [facility] [address] [address] [address] Forrest Lauren HbA1c (Bld) [Mass fraction] 8.4 % Critically high <=6.0 [facility] Comment on above: Performed By: #### A 1C #### [facility] [address] [address] [address] Forrest Lauren LIPID PROFILEon 08-26-2021 CHOL-HDL RATIO NORM SEE BELOW Normal [facility] Comment on above: Result Comment: 3.3 - 4.4 LOW RISK 4.4 - 7.1 AVERAGE RISK 7.1 - 11.0 MODERATE RISK >11.0 HIGH RISK Performed By: #### P SASC #### [facility] [address] [address] [address] Forrest Lauren Cholesterol [Mass/Vol] 117 mg/dL Normal <=200 [facility] Comment on above: Performed By: #### P SASC #### [facility] [address] [place] [address] Dr. Forrest Lauren Cholesterol in HDL [Mass/Vol] 43 mg/dL Normal [facility] Comment on above: Performed By: #### P SASC #### [facility] [address] [place] [address] Dr. Forrest Lauren Cholesterol in LDL [Mass/Vol] 45.6 mg/dL Normal [facility] Comment on above: Performed By: #### P SASC #### [facility] [address] [place] [address] Dr. Forrest Lauren Cholesterol.total /Cholesterol in HDL [Mass ratio] 2.7 {ratio} Normal [facility] Comment on above: Performed By: #### P SASC #### [facility] [address] [place] [address] Dr. Forrest Lauren HDL NORMAL > or = 60 mg/dl - LO W CARDIOVASCULAR RISK <40 mg/dl - HIGH CARDIOVASCULAR RISK Normal [facility] Comment on above: Performed By: #### P SASC #### [facility] [address] [place] [address] Dr. Forrest Lauren LDL CALC NORMAL SEE BELOW Normal [facility] Comment on above: Result Comment: <100 mg/dl OPTIMAL 100 - 129 mg/dl NEAR OR ABOVE OPTIMAL 130 - 159 mg/dl BORDERLINE HIGH 160 - 189 mg/dl HIGH >190 mg/dl VERY HIGH Performed By: #### P SASC #### [facility] [address] [address] [address] Forrest Lauren Triglyceride [Mass/Vol] 142 mg/dL Normal <=150 [facility] Comment on above: Performed By: #### P SASC #### [facility] [address] [address] [address] Forrest Lauren VLDL CALC 28.4 mg/dL Normal [facility] Comment on above: Performed By: #### P SASC #### [facility] [address] [place] [address] Dr. Forrest Lauren PROF 14(COMP METB)on 022 Albumin [Mass/Vol] 4.1 g/dL Normal 3.5-5.0 [facility] Comment on above: Performed By: #### P SASC #### [facility] [address] [place] [address] Dr. Forrest Lauren Albumin/Globulin [Mass ratio] 1.2 {ratio} Normal [facility] Comment on above: Performed By: #### P SASC #### [facility] [address] [place] [address] Dr. Forrest Lauren ALP [Catalytic activity/Vol] 82 U/L Normal 38-126 [facility] Comment on above: Performed By: #### P SASC #### [facility] [address] [place] [address] Dr. Forrest Lauren ALT [Catalytic activity/Vol] 38 U/L Normal 21-72 [facility] Comment on above: Performed By: #### P SASC #### [facility] [address] [place] [address] Dr. Forrest Lauren Anion gap [Moles/Vol] 12.7 mmol/L Normal [facility] Comment on above: Performed By: #### P SASC #### [facility] [address] [place] [address] Dr. Forrest Lauren AST [Catalytic activity/Vol] 18 U/L Normal 17-59 [facility] Comment on above: Performed By: #### P SASC #### [facility] [address] [place] [address] Dr. Forrest Lauren Bilirubin [Mass/Vol] 1.2 mg/dL Normal 0.2-1.3 [facility] Comment on above: Performed By: #### P SASC #### [facility] [address] [address] [address] Forrest Lauren Calcium [Mass/Vol] 9.7 mg/dL Normal 8.4-10.2 [facility] Comment on above: Performed By: #### P SASC #### [facility] [address] [address] [address] Forrest Lauren Chloride [Moles/Vol] 102 mmol/L Normal 98-107 [facility] Comment on above: Performed By: #### P SASC #### [facility] [address] [address] [address] Forrest Lauren CO2 [Moles/Vol] 30.6 mmol/L Critically high 22.0-30.0 [facility] Comment on above: Performed By: #### P SASC #### [facility] [address] [address] [address] Forrest Lauren Creatinine [Mass/Vol] 1.09 mg/dL Normal 0.66-1.25 [facility] Comment on above: Performed By: #### P SASC #### [facility] [address] [address] [address] Forrest Lauren EGFR-AF VINCENTIAN >60 Normal >=60 [facility] Comment on above: Performed By: #### P SASC #### [facility] [address] [address] [address] Forrest Lauren EGFR-NON AF VINCENTIAN >60 Normal >=60 [facility] Comment on above: Performed By: #### P SASC #### [facility] [address] [address] [address] Forrest Lauren Globulin (S) [Mass/Vol] 3.4 g/dL Normal [facility] Comment on above: Performed By: #### P SASC #### [facility] [address] [address] [address] Forrest Lauren Glucose [Mass/Vol] 238 mg/dL Critically high 74-106 [facility] Comment on above: Performed By: #### P SASC #### [facility] [address] [place] [address] Dr. Forrest Lauren Potassium [Moles/Vol] 4.3 mmol/L Normal 3.4-5.0 [facility] Comment on above: Performed By: #### P SASC #### [facility] [address] [place] [address] Dr. Forrest Lauren Protein [Mass/Vol] 7.5 g/dL Normal 6.1-8.2 [facility] Comment on above: Performed By: #### P SASC #### [facility] [address] [place] [address] Dr. Forrest Lauren Sodium [Moles/Vol] 141 mmol/L Normal 137-145 [facility] Comment on above: Performed By: #### P SASC #### [facility] [address] [place] [address] Dr. Forrest Lauren Urea nitrogen [Mass/Vol] 20.0 mg/dL Normal 9.0-20.0 [facility] Comment on above: Performed By: #### P SASC #### [facility] [address] [place] [address] Dr. Forrest Lauren Urea nitrogen/Creatini ne [Mass ratio] 18.3 mg/mg Normal [facility] Comment on above: Performed By: #### P SASC #### [facility] [address] [place] [address] Dr. Forrest Lauren URIC ACID SERUMon 08-26-2021 Urate [Mass/Vol] 4.8 mg/dL Normal 3.5-8.5 [facility] Comment on above: Performed By: #### P SASC #### [facility] [address] [place] [address] Dr. Forrest Lauren Covid-19 PCR ([facility]on Sample Type Test performed using RT-PCR from a nasopharyngeal collected specimen. Normal [facility] Comment on above: Performed By: #### P SASC #### [facility] [address] [place] [address] Dr. Forrest Lauren SARS-CoV-2 (COVID-19) RNA MERA+probe Ql (Unsp spec) Detected Abnormal NOT DETECTED [facility] Comment on above: Result Comment: This test is not yet approved or cleared by the [place] FDA. When there are no FDA-approved or cleared tests available, and other criteria are met, FDA can make tests available under an emergency access mechanism called an Emergency Use Authorization (EUA). The EUA for this test is supported by the [employer] Manager of Health and Human Service's (HHS's) declaration [...] used). Performed By: #### P SASC #### [facility] [address] [place] [address] Dr. Forrest Lauren POINT OF CARE GLUCOSEon 05-0 Glucose [Mass/Vol] 255 mg/dL Critically high 74-106 [facility] Comment on above: Performed By: #### P OCGLUC #### [facility] [address] [place] [address] Matias Rivas XR CHEST 1 Von 12-07-2020 [...] AMARIS WALKER Date: 2020-12-06 22:04 Normal [facility] INSULINon 10-02-2020 Insulin 16.9 uIU/mL Normal 2.6-24.9 [facility] Comment on above: Performed By: #### P SASC #### [facility] [id number] Forrest Lauren CBC AUTO DIFFon 10-01-2020 BASO # 0.1 103/ul Normal 0.0-0.1 [facility] Comment on above: Performed By: #### C BC #### [facility] [address] [place], [place] [id number] Matias Evelyn Basophils/100 WBC (Bld) 0.6 % Normal 0.2-2.0 [facility] Comment on above: Performed By: #### C BC #### [facility] [address] [place] [address] Matias Evelyn EO # 0.4 103/ul Normal 0.0-0.7 [facility] Comment on above: Performed By: #### C BC #### [facility] [address] [place] [address] Matias Evelyn Eosinophils/100 WBC (Bld) 4.2 % Normal 0.9-7.0 [facility] Comment on above: Performed By: #### C BC #### [facility] [address] [place] [address] Matias Evelyn Erythrocyte distribution width (RBC) [Ratio] 13.1 % Normal 11.0-15.0 [facility] Comment on above: Performed By: #### C BC #### [facility] [address] [place], [place] [id number] Matias Evelyn Hematocrit (Bld) [Volume fraction] 50.2 % Normal 42.0-54.0 [facility] Comment on above: Performed By: #### C BC #### [facility] [address] [place] [address] Matias Evelyn Hemoglobin (Bld) [Mass/Vol] 16.6 g/dL Normal 14.0-18.0 [facility] Comment on above: Performed By: #### C BC #### [facility] [address] [place] [address] Matias Evelyn IG # 0.05 10e3/ul Critically high 0.00-0.03 [facility] Comment on above: Performed By: #### C BC #### [facility] [address] [id number] Matias Evelyn IG % 0.6 % Critically high 0.0-0.5 [facility] Comment on above: Performed By: #### C BC #### [facility] [address] [place] [address] Matias Evelyn LYMPH # 1.9 103/ul Normal 1.2-3.8 [facility] Comment on above: Performed By: #### C BC #### [facility] [address] [place], [place] [id number] Matias Evelyn Lymphocytes/100 WBC (Bld) 22.2 % Normal 20.5-60.0 [facility] Comment on above: Performed By: #### C BC #### [facility] [address] [place] [address] Matias Evelyn MANUAL DIFF REQ NO Normal [facility] Comment on above: Performed By: #### C BC #### [facility] [address] [place] [address] Matias Evelyn MCH (RBC) [Entitic mass] 29.4 pg Normal 25.9-34.0 [facility] Comment on above: Performed By: #### C BC #### [facility] [address] [place] [address] Matias Evelyn MCHC (RBC) [Mass/Vol] 33.1 g/dL Normal 29.9-35.2 [facility] Comment on above: Performed By: #### C BC #### [facility] [address] [place] [address] Matias Evelyn MCV (RBC) [Entitic vol] 88.8 fL Normal 80.0-94.0 [facility] Comment on above: Performed By: #### C BC #### [facility] [address] [place] [address] Matias Evelyn MONO # 0.7 103/ul Normal 0.3-0.8 [facility] Comment on above: Performed By: #### C BC #### [facility] [address] [place] [address] Matias Evelyn Monocytes/100 WBC (Bld) 7.7 % Normal 1.7-12.0 [facility] Comment on above: Performed By: #### C BC #### [facility] [address] [place], [place] [id number] Matias Rivas NEUT # 5.7 103/ul Normal 1.4-6.5 [facility] Comment on above: Performed By: #### C BC #### [facility] [address] [place], [place] [id number] Matias Rivas Neutrophils/100 WBC (Bld) 64.7 % Normal 43.0-75.0 [facility] Comment on above: Performed By: #### C BC #### [facility] [address] [place], [place] [id number] Matias Rivas Platelet mean volume (Bld) [Entitic vol] 10.4 fL Normal 9.5-13.5 [facility] Comment on above: Performed By: #### C BC #### [facility] [address] [place], [place] [id number] Matiaswali Rodasen PLT 243 103/ul Normal 150-450 [facility] Comment on above: Performed By: #### C BC #### [facility] [address] [place], [place] [id number] Matias Rodasen RBC 5.65 106/ul Normal 4.70-6.10 [facility] Comment on above: Performed By: #### C BC #### [facility] [address] [place], [place] [id number] Matias Rivas WBC 8.7 103/ul Normal 4.0-11.0 [facility] Comment on above: Performed By: #### C BC #### [facility] [address] [place], [place] [id number] Matias Rivas FREE THYROXINE INDEX T7on FTI 2.11 Normal [facility] Comment on above: Performed By: #### U TARIK, CMP, T7, PSASC, TSH, LIPID #### [facility] [address] [place], [place] [id number] Matiaswali Rivas T3U 34.0 % Normal 23.5-40.5 [facility] Comment on above: Performed By: #### U TARIK, CMP, T7, PSASC, TSH, LIPID #### [facility] [address] [place] [address] Matias Rivas T4 [Mass/Vol] 6.20 ug/dL Normal 5.53-11.00 [facility] Comment on above: Performed By: #### U TARIK, CMP, T7, PSASC, TSH, LIPID #### [facility] [address] [place], [place] [id number] Matias Rivas GLYCOHEMOGLOBIN A1Con 2020 ADA RECOMMENDATION ADA THERAPEUTIC TARGET 6.0 - 7.0 ACTION SUGGESTED > 7.0 Normal [facility] Comment on above: Performed By: #### A 1C #### [facility] [address] [place] [address] Matias Rivas Glucose [Mass/Vol] 266 mg/dL Normal [facility] Comment on above: Performed By: #### A 1C #### [facility] [address] [place] [address] Matias Rivas HbA1c (Bld) [Mass fraction] 10.9 % Critically high <=6.0 [facility] Comment on above: Performed By: #### A 1C #### [facility] [address] [place] [address] Matias Rivas LIPID PROFILEon 10-01-2020 CHOL-HDL RATIO NORM SEE BELOW Normal [facility] Comment on above: Result Comment: 3.3 - 4.4 LOW RISK 4.4 - 7.1 AVERAGE RISK 7.1 - 11.0 MODERATE RISK >11.0 HIGH RISK Performed By: #### P SASC #### [facility] [address] [place] [address] Dr. Forrest Luaren Cholesterol [Mass/Vol] 110 mg/dL Normal <=200 [facility] Comment on above: Performed By: #### P SASC #### [facility] [address] [place] [address] Dr. Forrest Lauren Cholesterol in HDL [Mass/Vol] 36 mg/dL Normal [facility] Comment on above: Performed By: #### P SASC #### [facility] [address] [address] [address] Forrest Lauren Cholesterol in LDL [Mass/Vol] 36.2 mg/dL Normal [facility] Comment on above: Performed By: #### P SASC #### [facility] [address] [address] [address] Forrest Lauren Cholesterol.total /Cholesterol in HDL [Mass ratio] 3.1 {ratio} Normal [facility] Comment on above: Performed By: #### P SASC #### [facility] [address] [address] [address] Forrest Lauren HDL NORMAL > or = 60 mg/dl - LO W CARDIOVASCULAR RISK <40 mg/dl - HIGH CARDIOVASCULAR RISK Normal [facility] Comment on above: Performed By: #### P SASC #### [facility] [address] [address] [address] Forrest Lauren LDL CALC NORMAL SEE BELOW Normal [facility] Comment on above: Result Comment: <100 mg/dl OPTIMAL 100 - 129 mg/dl NEAR OR ABOVE OPTIMAL 130 - 159 mg/dl BORDERLINE HIGH 160 - 189 mg/dl HIGH >190 mg/dl VERY HIGH Performed By: #### P SASC #### [facility] [address] [address] [address] Forrest Lauren Triglyceride [Mass/Vol] 189 mg/dL Critically high <=150 [facility] Comment on above: Performed By: #### P SASC #### [facility] [address] [address] [address] Forrest Lauren VLDL CALC 37.8 mg/dL Normal [facility] Comment on above: Performed By: #### P SASC #### [facility] [address] [address] [address] Forrest Lauren PROF 14(COMP METB)on 021 Albumin [Mass/Vol] 4.1 g/dL Normal 3.5-5.0 [facility] Comment on above: Performed By: #### U TARIK, CMP, T7, PSASC, TSH, LIPID #### [facility] [address] [address] Matias Evelyn Albumin/Globulin [Mass ratio] 1.2 {ratio} Normal [facility] Comment on above: Performed By: #### U TARIK, CMP, T7, PSASC, TSH, LIPID #### [facility] [address] [address] Matias Eevlyn ALP [Catalytic activity/Vol] 80 U/L Normal 38-126 [facility] Comment on above: Performed By: #### U TARIK, CMP, T7, PSASC, TSH, LIPID #### [facility] [address] [place] [address] Matias Evelyn ALT [Catalytic activity/Vol] 42 U/L Normal 21-72 [facility] Comment on above: Performed By: #### U TARIK, CMP, T7, PSASC, TSH, LIPID #### [facility] [address] [place] [address] Matias Evelyn Anion gap [Moles/Vol] 12.3 mmol/L Normal [facility] Comment on above: Performed By: #### U TARIK, CMP, T7, PSASC, TSH, LIPID #### [facility] [address] [place] [address] Matias Evelyn AST [Catalytic activity/Vol] 24 U/L Normal 17-59 [facility] Comment on above: Performed By: #### U TARIK, CMP, T7, PSASC, TSH, LIPID #### [facility] [address] [place] [address] Matias Evelyn Bilirubin [Mass/Vol] 1.3 mg/dL Normal 0.2-1.3 [facility] Comment on above: Performed By: #### U TARIK, CMP, T7, PSASC, TSH, LIPID #### [facility] [address] [place] [address] Matias Evelyn Calcium [Mass/Vol] 9.3 mg/dL Normal 8.4-10.2 [facility] Comment on above: Performed By: #### U TARIK, CMP, T7, PSASC, TSH, LIPID #### [facility] [address] [address] Matias Evelyn Chloride [Moles/Vol] 103 mmol/L Normal 98-107 [facility] Comment on above: Performed By: #### U TARIK, CMP, T7, PSASC, TSH, LIPID #### [facility] [address] [address] Matias Evelyn CO2 [Moles/Vol] 30.0 mmol/L Normal 22.0-30.0 [facility] Comment on above: Performed By: #### U TARIK, CMP, T7, PSASC, TSH, LIPID #### [facility] [address] [address] Matias Evelyn Creatinine [Mass/Vol] 1.20 mg/dL Normal 0.66-1.25 [facility] Comment on above: Performed By: #### U TARIK, CMP, T7, PSASC, TSH, LIPID #### [facility] [address] [place] [address] Matias Evelyn EGFR-AF VINCENTIAN >60 Normal >=60 [facility] Comment on above: Performed By: #### U TARIK, CMP, T7, PSASC, TSH, LIPID #### [facility] [address] [place] [address] Matias Evelyn EGFR-NON AF VINCENTIAN >60 Normal >=60 [facility] Comment on above: Performed By: #### U TARIK, CMP, T7, PSASC, TSH, LIPID #### [facility] [address] [place] [address] Matias Evelyn Globulin (S) [Mass/Vol] 3.5 g/dL Normal [facility] Comment on above: Performed By: #### U TARIK, CMP, T7, PSASC, TSH, LIPID #### [facility] [address] [place] [address] Matias Evelyn Glucose [Mass/Vol] 269 mg/dL Critically high 74-106 [facility] Comment on above: Performed By: #### U TARIK, CMP, T7, PSASC, TSH, LIPID #### [facility] [address] [place] [address] Matias Evelyn Potassium [Moles/Vol] 4.3 mmol/L Normal 3.4-5.0 [facility] Comment on above: Performed By: #### U TARIK, CMP, T7, PSASC, TSH, LIPID #### [facility] [address] [address] Matias Evelyn Protein [Mass/Vol] 7.6 g/dL Normal 6.1-8.2 [facility] Comment on above: Performed By: #### U TARIK, CMP, T7, PSASC, TSH, LIPID #### [facility] [address] [address] Matias Evelyn Sodium [Moles/Vol] 141 mmol/L Normal 137-145 [facility] Comment on above: Performed By: #### U TARIK, CMP, T7, PSASC, TSH, LIPID #### [facility] [address] [place] [address] Matias Evelyn Urea nitrogen [Mass/Vol] 17.0 mg/dL Normal 9.0-20.0 [facility] Comment on above: Performed By: #### U TARIK, CMP, T7, PSASC, TSH, LIPID #### [facility] [address] [place] [address] Matias Evelyn Urea nitrogen/Creatini ne [Mass ratio] 14.2 mg/mg Normal [facility] Comment on above: Performed By: #### U TARIK, CMP, T7, PSASC, TSH, LIPID #### [facility] [address] [place] [address] Matias Evelyn TSHon 10-01-2020 TSH 1.574 uIU/mL Normal 0.470-4.68 0 [facility] Comment on above: Performed By: #### P SASC #### [facility] [address] [place] [address] Dr. Forrest Lauren TSH RANGE SEE BELOW Normal [facility] Comment on above: Result Comment: <0.3 4 UIU/ml HYPERTHYROID 0.34-5.60 UIU/ml EUTHYROID >5.60 UIU/ml HYPOTHYROID Performed By: #### P SASC #### [facility] [address] [place] [address] Dr. Forrest Lauren URIC ACID SERUMon 10-01-2020 Urate [Mass/Vol] 4.8 mg/dL Normal 3.5-8.5 [facility] Comment on above: Performed By: #### P [facility] #### [facility] [address] [place], [place] [address] Dr. Forrest Lauren Cardiovascular Lab Reporton 08-03-2017 Cardiovascular Lab Report [facility]: [id number] Physician: Jerod Miller M.D.Medicine Service Date: 2017Division of Birthdate: 1955ardiology Room #: [id number] [place], [place] [address]Uwgzn Fax Cardiovascular Laboratory ReportINDICATION: Hoang Bonilla is [...] the right internal jugular vein and a 6-Icelandic x 11cm sheath was placed. A 6-Icelandic Griffith catheter was used for right heartcatheterization with measurement of pressures and calculation of cardiacoutput using the estimated Luke method. Griffith catheter was removed.Using ultrasound guidance and micropuncture technique, access was obtainedin the left radial artery and a 6-Icelandic x 11 cm Hydrophilic sheath wasadvanced. Verapamil [...] 08/02/2017/02:42 P/Jerod Manuel M.D.Date Trans: 08/03/2017 11:29 A/[id number]: Yfn Mata D.O. [address] [place] [address] A [facility] [address] Normal [facility] Vital Signs Date Time Vital Sign Value Performing Clinician Jose fairchild 01-21-2024 11:44-0400 Blood Pressure Location Moody [facility] 01-21-2024 11:44-0400 Diastolic blood pressure 72 mm[Hg] Moody [facility] 01-21-2024 11:44-0400 Heart rate 70 /min Moody POP [facility] 01-21-2024 11:44-0400 Respiratory rate 16 /min Moody POP [facility] 01-21-2024 11:44-0400 Systolic blood pressure 108 mm[Hg] Moody POP [facility] Encounters Encounter Date Encounter Type Care Provider Facility Start: 06-09-2024 ambulatory Moody Rosi POP Facili ty:[facility] [place] Start: 04-30-2024 ambulatory Jassi CLEMENS Facility :[facility] Start: 04-23-2024 End: 04-23-2024 ambulatory DO González Kuns Work Phone: [facility] Work Phone: Start: 04-23-2024 End: 04-23-2024 Departed Referred DO González Kuns Work Phone: [facility] Start: 04-23-2024 ambulatory Moody POP Facility : [facility] Start: 04-11-2024 End: 04-11-2024 ambulatory DO González Kuns Work Phone: [facility] Work Phone: Start: 04-11-2024 End: 04-11-2024 Departed Referred DO González Kuns Work Phone: [facility] Start: 03-28-2024 End: 03-28-2024 ambulatory [facility] Start: 02-25-2024 End: 02-25-2024 ambulatory [facility] Start: 02-11-2024 End: 02-11-2024 ambulatory Moodyarnol POP Facility:[id number] Start: 01-21-2024 End: 01-21-2024 ambulatory Moodyarnol POP Facility:[facility] [place] Start: 01-21-2024 End: 01-21-2024 Patient encounter procedure Moody POP [facility] Start: 09-12-2023 ambulatory Moody POP Facility :[facility] [place] Start: 08-26-2021 End: 08-26-2021 ambulatory AILIN BAKER Facility:[facility] Start: 02-23-2021 ambulatory AILIN BAKER Facility:[facility] Start: 12-06-2020 End: 12-07-2020 ambulatory ILAN TODD Facility:[facility] Start: 10-07-2020 Encounter for genera l adult medical examination without abnormal findings AILIN BAKER [facility] Start: 10-01-2020 End: 10-02-2020 ambulatory AILIN BAKER Facility:[facility] Start: 10-01-2020 End: 10-02-2020 Encounter for general adult medical examination without abnormal findings AILIN BAKER Facility:[facility] Start: 2017 End: 08-03-2017 Ambulatory PROVIDER UNKNOWN Facility:[facility] Start: 07-24-2017 End: 07-25-2017 Ambulatory DEFAULT PHYSICIAN Facility:[facility] Start: 07-19-2017 End: 07-20-2017 Ambulatory DEFAULT PHYSICIAN Facility:[facility] Start: 06-18-2017 End: 06-19-2017 Ambulatory DEFAULT PHYSICIAN Facility:[facility] Procedures Date Procedure Procedure Detail Performing Clinician Start: 08-26-2021 PSA screening AILIN KHAN Comment on above: Performed By: #### P SASC #### [facility] [address] [address] [address] Forrest Lauren Start: 10-01-2020 PSA screening AILIN KHAN Comment on above: Performed By: #### U TARIK, CMP, T7, PSASC, TSH, LIPID #### [facility] [address], [place] [address] Matias Rivas Start: 08-06-2013 Colonoscopy Moody ASHER Start: 08-06-2004 Neoplasm of brain (disorder) Moody POP Back structure, excl uding neck (body structure) Moody [facility] Tonsillectomy [facility] POP Payers Date Payer Category Payer Medicare [id number] 1958 [facility] [id number] 1958 Medicare [id number] 1958 Self-pay 1955 Unknown [id number] 1956 Unknown [id number] 593 1956 Unknown [id number]. 593 1956 Unknown [id number]. 593 1956 Unknown [id number]. 727 1956 Unknown [id number] [id number]. 727 1956 Unknown [id number] [id number]. 727 1956 Unknown [id number] [id number]. 727 Private Health Insurance [facility] [id number] Unknown Unknown Bruce BC/BS [id number] Unknown [id number] 531 Unknown [id number]. 531 Social History Date Type Detail Facility Start: 01-21-2024 Tobacco smoking status Never s moked tobacco (finding) [facility] Tobacco smoking status Never [facility] Sex Assigned At Male [facility] Start: 1955 Sex Assigned At Male [facility] Functional Status Date Assessment Result Facility 01-21-2024 Functional Status N/A [facility] Progress note 03-28-2024 Note Date & Type Note Facility 03-28-2024 Note [place] [facility] Subjective Hoang Bonilla is a 68 y.o. year old male [...] HDL 42. TSH (more content not included)... [facility] Progress note 02-25-2024 Note Date & Type Note Facility 02-25-2024 Note [place] [facility] - [facility] Subjective Hoang Bonilla is a 68 y.o. year old male [...] platelets 256, potassium (more content not included)... [facility] Clinical Note 01-21-2024 Note Date & [...] neoplasm of prostat (more content not included)... [facility] Comment on above: Result Comment: Elec [...] urethra. Follow these instructions at home: Take ntcy-qjp-jryfeyf and prescription medicines only as told by [...] provider. Document Revised: 02/08/2022 Document Reviewed: 02/08/2022 [employer] Patient Education 2022 [employer]. Follow Up Care 09/13/2023 09:26:56 With:DONN ELLIS, Moody Aranda, URL Address: [facility] [address], [place] [address]- When: Unknown [facility] Evaluation + Plan note Note Date & Type Note Facility Evaluation + Plan note No data available for this section [facility] Evaluation note Note Date & Type Note Facility Evaluation note No assessment information availa [facility] Work Phone: Progress note Note Date & Type Note Facility Progress note No data available for this section [facility] Summary Purpose Family History No Family [...] section and content) DATE CREATED AUTHOR 01/29/2018 [facility] DATE CREATED AUTHOR AUTHOR'S ORGANIZ ATION 09/01/2021 [facility] DATE CREATED AUTHOR AUTHOR'S ORGANIZ ATION 03/30/2024 [facility] DATE CREATED AUTHOR AUTHOR'S ORGANIZ ATION 04/25/2024 [facility] DATE CREATED AUTHOR AUTHOR'S ORGANIZ ATION 04/25/2024 [facility] Patient Care team informatio n (unrecognized section and content) Team Status: Active Member Role Status Dates González Moon DO Primary Care Provider Active Team Status: Inactive Member Role Status Dates González Moon DO Primary Care Provider Active Sta rt: April 11, 2024 End: April 11, 2024 Hoang Strange MD Attending Provider Active Start: April 11, 2024 End: April 11, 2024 Team Status: Inactive Member Role Status Dates Jassi Clemens MD FACS Attending Provider Active Start: April 23, 2024 End: April 23, 2024 Goals (unrecognized section and content) Goals [...] BE BASED ON THE PRIMARY CLINICAL RECORDS. [facility] [employer] [facility]. provides no warranty or guarantee of the accuracy or completeness of information in this document.
== END 2024-04-29 07:27 | disposition home or self-care (01) ==
PROVIDERS: PCP Nurse Practitioner Family; Visit Provider Internal Medicine Hematology & Oncology
DX: C85.11 Unspecified B-cell lymphoma, lymph nodes of head, face, and neck (principal)
CPT/HCPCS: G0463

== ENCOUNTER 2024-05-12 15:01 | Outpatient (OUT) | payer MEDICARE, SELFPAY ==
--- NOTE | 2024-05-12 16:24 | PE_ITS ---
[address] [address] Patient Name: NABEEL TRAN MRN: [id number] date: 1955 Sex: M Assigned Patient Location: PETCT Current Patient Location: PETCT Accession/Order Number: [id number] Exam Date: 05/12/2024 15:27 Report Date: 05/14/2024 16:07 At the request of: JOAN HURLEY Procedure: PET skull to mid thigh NUCLEAR MEDICINE PET/CT HISTORY: Non-Hodgkin's lymphoma. COMPARISON: CT abdomen and pelvis 04/21/2024. CT chest 03/29/2024. METHOD: 15.21 mCi of F-18 FDG was administered intravenously. Blood sugar level at the time of the injection: 142. At 52 minutes from injection, PET images were obtained from the skull base through the midthigh levels in the axial plane. Reformatted images were performed in the sagittal and coronal planes. A low-dose, noncontrast CT scan was performed for attenuation correction and anatomical localization. A low dose, noncontrast and nondiagnostic CT scan was performed for attenuation correction and anatomic localization. Mediastinal blood pool SUV max 2.4 using the patient's body weight as the normalization method. FINDINGS: HEAD AND NECK: There are multiple right supraclavicular metabolically active lymph nodes, the largest measuring 1.2 x 1.4 cm with a maximum SUV of 5.9. CHEST: There are significant multiple right axillary and right subpectoral metabolically active lymph nodes, the largest measuring 3.4 x 1.7 cm with a maximum SUV of 12.5. The major airways are patent. There is no pericardial effusion. There is no evidence of abnormal metabolic uptake in the esophagus. There is no evidence of abnormal metabolic uptake in the lung parenchyma. There are no pleural effusions. There is no pneumothorax. ABDOMEN AND PELVIS: There is no evidence of abnormal metabolic activity in the liver or adrenal glands. There is no evidence of abnormal metabolic active lymph nodes in the abdomen or pelvis. There is no free fluid. There is physiologic uptake in the urinary system and bowel. There are right renal cysts. The prostate is enlarged. MUSCULOSKELETAL: There is no evidence of abnormal metabolically active bony lesions. PET/PET skull to mid thigh IMPRESSION: Multiple metabolically active right supraclavicular, right axillary, and right subpectoral lymph nodes consistent with lymphoma. No evidence of metabolically active lymphadenopathy below the diaphragm. Prostatomegaly. Right renal cysts. Deauville Score = 4 Electronically authenticated by: KASI HARRINGTON Date: 05/14/2024 16:07
== END 2024-05-12 15:02 | disposition home or self-care (01) ==
LOC: PETCT 15:01
PROVIDERS: PCP Nurse Practitioner Family; Visit Provider Internal Medicine Hematology & Oncology
DX: C85.90 Non-Hodgkin lymphoma, unspecified, unspecified site (principal); C85.94 Non-Hodgkin lymphoma, unspecified, 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; C85.11 Unspecified B-cell lymphoma, lymph nodes of head, face, and neck
CPT/HCPCS: 78815; A9552

== ENCOUNTER 2024-05-20 08:56 | Outpatient (OUT) | payer MEDICARE, SELFPAY ==
--- NOTE | 2024-05-20 09:00 | RT_ITS ---
[facility] Test Date: 2024-05-20 Pat Name: NABEEL TRAN Department: Room: - Gender: Male Roving Department End Finder: Evelyn Frances RRT : 1955 Requested By: Sonia Donnelly Order Number: [id number] Reading MD: Leroy Torres Interpretive Statements Pulmonary function testing was completed according to ATS criteria. Findings were considered accurate and reproducible, with exception of DLCO which did not meet ATS standards. Both pre- and post-bronchodilator values utilized for spirometry. Spirometry (based on pre-bronchodilator values): -FEV1/FVC: Normal @ 86% -FEV1: Moderately reduced @ 61% -FVC: Severely reduced @ 52% -There is a paradoxical bronchodilator response. Lung volumes by plethysmography (based on pre-bronchodilator values): -RV: Increased @ 168% -TLC: Normal @ 85% Diffusion capacity: -DLCO: Moderate reduction @ 58% when corrected for Hb 13.7g/dL Flow-volume loop: -Severe restrictive pattern with abnormal spikes in the expiratory limb suggestive of a glottic maneuver (e.g. cough) Impressions: -Severe restrictive pattern with spirometry with normal lung volume (TLC) suggests chest wall or neuromuscular-type pattern. Moderately severe DLCO may indicate underlying cardiopulmonary vascular disease or early emphysema, though TLC remains normal. This may also be artificially decreased due to inability to meet ATS standards for DLCO. Clinical correlation required. Electronically Signed On 05-20-2024 14:50:42 EDT by Leroy Torres
--- OUTSIDE RECORDS SUMMARY | 2024-05-20 09:18 | XMS_ITS | CCD ---
Author Organization [facility] CliniSytn Care Team Providers Care Director Of Primary Name Role Phone PHYSICIAN, DEFAULT Unavailable Unavailable [...] AILIN Admitting Unavailable RAY AILIN Attending Unavailable RAY AILIN Consulting Unavailable RAY AILIN Primary Care Unavailable AILIN BAKER Attending Unavailable YFN MATA Primary Care Unavailable AILIN BAKER Consulting Unavailable RAY, AILIN Admitting Unavailable ILAN TODD Attending Unavailable ILAN TODD Consulting Unavailable ILAN TODD Admitting Unavailable RAY, AILIN Primary Care Unavailable AMARIS WALKER Consulting Unavailable AILIN GREEN Primary Care Physician JEROD MANUEL Attending Unavailable JEROD MANUEL Attending Unavailable DO González Moon Primary Care Provider MD Hoang Strange Attending Provider [phone] MD Jassi Clemens Attending Provider Moody POP Attending Unavailable Moody POP Attending Unavailable AILIN GREEN Referring Unavailable NILLJassi Attending Unavailable Jassi CLEMENS Attending Unavailable Moody POP Attending Unavailable Jassi Clemens Admitting Unavailable Jassi Clemens Attending Unavailable Hoang Strange Admitting Unavailable Hoang Strange Attending Unavailable González Moon Primary Care Unavailable Allergies Allergy Classification Reported Allergen(s) Allergy Type Date of Onset Reaction(s) Facility (2 sources) No Known Allergies; 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: [No Known Allergies] Propensity to adverse reactions (disorder) 7 [facility] Repository (1 source) empagliflozin; 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: [EMPAGLIFLOZIN] Drug Allergy 4 [facility] Repository (1 source) No Known Medication Allergies; 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: [No Known Medication Allergies] Propensity to adverse reactions (disorder) [facility] Repository Medications Current Medications Medication Drug Class(es) Dates Sig (Normalized) Sig (Original) amLODIPine 10 mg oral tablet (1 source) Dihydropyridine Calcium Channel Erick Start: 01-21-2024 amLODIPine 10 mg Tab 90 tab(s), 0 Refill(s), Refills(s) 0 Start Date: 01/21/24 Status: Ordered atorvastatin 10 mg oral tablet (2 sources) HMG-CoA Reductase Inhibitor Start: 04-30-2024 take 1 tablet by mouth once daily atorvastatin 10 mg Tab 10 mg = 1 tab(s), Oral, Daily, Refills(s) 0 Start Date: 04/30/24 Status: Ordered Start: 01-21-2024 atorvastatin 4 0 mg Tab 90 tab(s), 0 Refill(s), Refills(s) 0 Start Date: 01/21/24 Status: Ordered carvedilol 6.25 mg oral tablet (2 sources) alpha-Adrenergic Erick, beta-Adrenergic Erick Start: 04-30-2024 take 1 tablet by mouth once daily carvedilol 6.25 mg Tab 6.25 mg = 1 tab(s), Oral, Daily, Refills(s) 0 Start Date: 04/30/24 Status: Ordered Start: 01-21-2024 carvedilol 6.2 5 mg Tab 0 Refill(s), Refills(s) 0 Start Date: 01/21/24 Status: Ordered empagliflozin 25 mg oral tablet (1 source) Sodium-Glucose Cotransporter 2 Inhibitor Start: 01-21-2024 Jardiance 25 mg oral tablet 90 tab(s), 0 Refill(s), Refills(s) 0 Start Date: 01/21/24 Status: Ordered 3 ml insulin glargine 100 unt/ml pen injector (1 source) Insulin Analog Start: 04-25-2024 Lantus Solostar Pen 100 units/mL subcutaneous solution 20 unit(s), SubCutaneous, Once a day (at bedtime), Refills(s) 0 Start Date: 04/25/24 Status: Ordered losartan potassium 100 mg oral tablet (2 sources) Angiotensin 2 Receptor Erick Start: 01-21-2024 take 1 tablet by mouth once daily losartan 100 mg Tab 100 mg = 1 tab(s), Oral, Daily, Refills(s) 0 Start Date: 01/21/24 Status: Ordered metFORMIN hydrochloride 1000 mg oral tablet (2 sources) Biguanide Start: 01-21-2024 take 1 tablet by mouth once daily metformin 1000 mg Tab 1,000 mg = 1 tab(s), Oral, Daily, Refills(s) 0 Start Date: 01/21/24 Status: Ordered SITagliptin 100 mg oral tablet (2 sources) Dipeptidyl Peptidase 4 Inhibitor Start: 01-21-2024 take 1 tablet by mouth once daily Januvia 100 mg Tab 100 mg = 1 tab(s), Oral, Daily, Refills(s) 0 Start Date: 01/21/24 Status: Ordered tamsulosin hydrochloride 0.4 mg oral capsule (2 sources) alpha-Adrenergic Erick Start: 01-21-2024 End: 01-15-2025 take 1 capsule by mouth once daily Flomax 0.4 mg Cap 0.4 mg = 1 cap(s), Oral, Daily, Stop taking if experiencing dizziness or lightheadedness., X 90 day(s), # 90 cap(s), Refills(s) 3, [facility], 187, cm, 01/21/24 11:48:00 EDT, Height/Length Dosing, 118, kg, 01/21/24 11:48:00 EDT, Weight Dosing Start Date: 01/21/24 Stop Date: 01/15/25 Status: Ordered Completed/Discontinued Medications Medication Drug Class(es) Dates Sig (Normalized) Sig (Original) ciprofloxacin 500 mg oral tablet (2 sources) Quinolone Antimicrobial Start: 01-21-2024 Cipro 500 mg Tab 500 mg = 1 tab(s), Oral, As Directed, Patient to take 1 tab the day before procedure and the 2nd tab the day of procedure once completed, # 2 tab(s), Refills(s) 0, Pharmacy: [id number], 187, cm, 01/21/24 11:48:00 EDT, Height/Length Dosing, 118, kg, 01/21/24 11:48:00 EDT, Weight Dosing Start Date: 01/21/24 Status: Ordered Problems Active Problems Problem Classification Problem Date Documented Date Episodic/Chronic Anxiety disorders (1 source) Anxiety 04-25-2024 Chronic Cardiac dysrhythmias (2 sources) Atrial premature depolarization; 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: [Atrial premature depolarization] Onset: 02-25-2024 Chronic Complications of surgical procedures or medical care (2 sources) Hypotension due to drugs; 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: [Hypotension due to drugs] Onset: 03-28-2024 Episodic Diabetes mellitus without complication (3 sources) Type 2 diabetes mellitus without complications; 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: [Diabetes mellitus] Onset: 2017 01-21-2024 Chronic Diabetes mellitus without complication (7 sources) Other abnormal glucose; 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: [Glycosuria] Onset: 08-26-2021 Episodic Disorders of lipid metabolism (5 sources) Hyperlipidemia, unspecified; 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: [Hyperlipidemia] Onset: 08-31-2021 01-21-2024 Chronic Essential hypertension (6 sources) Essential (primary) hypertension; 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: [Hypertensive disorder] Onset: 06-20-2017 01-21-2024 Chronic Heart valve disorders (8 sources) Nonrheumatic mitral (valve) insufficiency; 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: [Nonrheumatic aortic (valve) stenosis] Onset: 2017 Chronic Hyperplasia of prostate (3 sources) Benign prostatic hypertrophy with outflow obstruction; 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: [Benign prostatic hyperplasia with lower urinary tract symptoms] Onset: 01-21-2024 Chronic Lymphadenitis (2 sources) Localized enlarged lymph nodes; 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: [Localized enlarged lymph nodes] Onset: 04-30-2024 Episodic Other and unspecified benign neoplasm (1 source) 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 Comment on above: Outside Source Comme nt: Comment on above: removed- right ear Other diseases of bladder and urethra (1 source) Detrusor overactivity; 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: [Overactive bladder] Onset: 01-21-2024 Chronic Other diseases of bladder and urethra (2 sources) Overactive bladder 01-21-2024 Chronic Other lower respiratory disease (3 sources) Shortness of breath; 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: [SHORTNESS OF BREATH] Onset: 2017 Episodic Other nervous system disorders (1 source) H/O: brain disorder 01-21-2024 Episodic Pulmonary heart disease (1 source) Pulmonary arterial hypertension 04-25-2024 Chronic Residual codes; unclassified (2 sources) Sleep apnea 01-21-2024 Chronic Respiratory failure; insufficiency; [...] UNK(Unknown) Onset: 2017 Unclassified (1 source) 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; 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: [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 DRUGS] Onset: 2017 Unclassified (2 sources) Patient encounter status 01-21-2024 Viral infection (1 source) COVID-19; 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: [COVID-19] Onset: 12-08-2020 Past or Other Problems Problem Classification Problem Date Documented Da te Episodic/Chronic Other aftercare (1 source) long-term (current) use of aspirin; 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: [CUSTODIAL (CURRENT) USE OF ASPIRIN] Onset: 2017 Episodic Other lower respiratory disease (3 sources) Cough; 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: [COUGH] Onset: 12-06-2020 Episodic Results Test Name Value Interpretation Reference Range Facility Ambulatory Visit Summaryon 0 04-30-2024 Ambulatory Visit Summary Ambulatory Visit Summary HOANG TRAN :1955 Visit Date:04/30/2024 Ambulatory Visit Instructions Your Diagnosis Lymphadenopathy, axillary Your Care Team Attending Physician - AIRAM ELLIS, Jassi Aranda Primary Care Physician - AILIN GREEN CNP This Is Your Medications List Contact prescribing physician if questions or concerns atorvastatin (atorvastatin 10 mg Tab) carvedilol (carvedilol 6.25 mg Tab) ciprofloxacin (Cipro 500 mg Tab) insulin glargine (Lantus Solostar Pen 100 units/mL subcutaneous solution) losartan (losartan 100 mg Tab) metformin (metformin 1000 mg Tab) sitagliptin (Januvia 100 mg Tab) tamsulosin (Flomax 0.4 mg Cap) Procedures Performed Incisional biopsy (04/23/2024), Colonoscopy (2013), Removal of acoustic neuroma, Spinal fusion, Tonsillectomy. What to do next Scheduled Follow-Up Appointments Sunday 10:45 AM EST With: DONN ELLIS, Moody Aranda Where: [facility] [address] [place] [address]- Medications What How Much When Instructions Unchanged atorvastatin (atorvastatin 10 mg Tab) 1 Tablets By Mouth Every day Contact prescribing physician if questions or concerns Unchanged carvedilol (carvedilol 6.25 mg Tab) 1 Tablets By Mouth Every day Contact prescribing physician if questions or concerns Unchanged ciprofloxacin (Cipro 500 mg Tab) 1 Tablets By Mouth As Directed Patient to take 1 tab the day before procedure and the 2nd tab the day of procedure once completed Contact prescribing physician if questions or concerns Unchanged insulin glargine (Lantus Solostar Pen 100 units/ mL subcutaneous solution) 20 Units Subcutaneous Once a day (at bedtime) Contact prescribing physician if questions or concerns Unchanged losartan (losartan 100 mg Tab) 1 Tablets By Mouth Every day Contact prescribing physician if questions or concerns Unchanged metformin (metformin 1000 mg Tab) 1 Tablets By Mouth Every day Contact prescribing physician if questions or concerns Unchanged sitagliptin (Januvia 100 mg Tab) 1 Tablets By Mouth Every day Contact prescribing physician if questions or concerns Unchanged tamsulosin (Flomax 0.4 mg Cap) 1 Capsules By Mouth Every day Duration: 90 Days Stop taking if experiencing dizziness or lightheadedness. Contact prescribing physician if questions or concerns Allergies No Known Allergies No Known Medication Allergies Problems Ongoing - Any problem that you are currently receiving treatment for. Acoustic neuroma Anxiety BPH with obstruction/lower urinary tract symptoms Diabetes mellitus Glucosuria Hyperlipidemia Hypertensive disorder Lymphadenopathy, axillary Non-rheumatic mitral regurgitation OAB (overactive bladder) Pulmonary arterial hypertension.. Screening PSA (prostate specific antigen) Sleep apnea Patient Survey You may receive a survey via text or e-mail asking about your office visit. Please share your experience with us by completing your survey. We appreciate your feedback and thank you for choosing us for your care. Normal [facility] General Surgery Office/Clini c Noteon 04-30-2024 General Surgery Office/Clinic Note General Surgery Office/Clinic Note Chief Complaint post operative follow up HPI Staff 7 day post operative follow up post incisional biopsy right axilla adenopathy completed while inpatient at [facility]. Denies soreness, bleeding or drainage. History of Present Illness 1 week s/p right axillary lymph node incisional biopsy under general anesthesia for tissue diagnosis, after nondiagnostic needle biopsy; doing well, no drainage or pain, mild itching; saw Oncology yesterday, ordered further testing; pathology still pending. Review of Systems PHQ Score Initial Depression Screen Score: 0 SCORE ROS - Provider Constitutional: no fever, no sweats, no weight loss. Eyes: no glasses, no blurred vision, no visual loss. ENMT: no dentures, no hoarseness, no swallowing difficulties, no hearing loss, no ear infection(s), no nose bleeds. Cardiovascular: normal blood pressure, no chest pain, regular heartbeat, no heart murmur. Respiratory: no shortness of breath, no cough, no asthma, no wheezing. Gastrointestinal: no nausea, no vomiting, no diarrhea, no constipation, no blood in stool, no change in bowel habits, no abdominal pain, no hepatitis. Genitourinary: no kidney stones, no urine infection, no dysuria. Musculoskeletal: no pain, no weakness. Skin: no changing moles, no rash, no skin lumps. Neurologic: no seizures, no epilepsy, no headache. Psychiatric: no emotional or psychiatric problem. Heme/Lymph: no bleeding problems, no anemia, no blood clots, no transfusions. Allergy/Immunologic: no swollen lymph nodes/glands, no IV drug abuse. Other: Additional ROS info: Except as noted in the above Review of Systems and in the History of Present Illness, all other systems have been reviewed and are negative or noncontributory. Physical Exam skin: incision healing well,no erythema or drainage, no ecchymosis. Assessment/Plan 1. Lymphadenopathy, axillary (R59.0: Localized enlarged lymph nodes) pathology pending; follow up with Oncology as scheduled; call with problems/questions. Follow-up No qualifying data available Problem List/Past Medical History Ongoing Acoustic neuroma Anxiety BPH with obstruction/lower urinary tract symptoms Diabetes mellitus Glucosuria Hyperlipidemia Hypertensive disorder Lymphadenopathy, axillary Non-rheumatic mitral regurgitation OAB (overactive bladder) Pulmonary arterial hypertension.. Screening PSA (prostate specific antigen) Sleep apnea Historical No qualifying data Procedure/Surgical History Incisional biopsy (04/23/2024), Colonoscopy (2013), Removal of acoustic neuroma, Spinal fusion, Tonsillectomy. Medications atorvastatin 10 mg Tab, 10 mg= 1 tab(s), Oral, Daily carvedilol 6.25 mg Tab, 6.25 mg= 1 tab(s), Oral, Daily Cipro 500 mg Tab, 500 mg= 1 tab(s), Oral, As Directed Flomax 0.4 mg Cap, 0.4 mg= 1 cap(s), Oral, Daily, 3 refills Januvia 100 mg Tab, 100 mg= 1 tab(s), Oral, Daily Lantus Solostar Pen 100 units/mL subcutaneous solution, 20 unit(s), SubCutaneous, Once a day (at bedtime) losartan 100 mg Tab, 100 mg= 1 tab(s), Oral, Daily metformin 1000 mg Tab, 1000 mg= 1 tab(s), Oral, Daily Allergies No Known Allergies No Known Medication Allergies Social History Alcohol - Denies Alcohol Use, 04/30/2024 Substance Abuse - Denies Substance Abuse, 04/30/2024 Tobacco Never (less than 100 in lifetime) Tobacco Use:. Never Smokeless Tobacco Use:. Household tobacco concerns: No. Yes, 04/30/2024 Family History Heart disease: Mother. Normal [facility] Comment on above: Result Comment: Elec tronically Signed By: AIRAM ELLIS, Jassi Nazario.br\Date and Time Signed: 04/30/24 14:51 EDT Robert 04-23-2024 L Specimen: [id number] R eceived: 04/23/24 Status: MERNA Rivera Num: [id number] Spec Type: Surgical Subm Dr: Jassi Clemens MD FACS Tissues: A Lymph Node - Biopsy (Needle or Incisional) (R AXILLARY LYMPH NODE BX) Procedures: CD45/2, HE/4, Gross/Micro L4, AE1-AE3, BCL-2, BCL-6, CD10, CD20, CD23, CD3, CD30/2, CD5, PAX5/2 Age/ Patient Sex Location Account Attending Physician Hoang Tran 68/M LABELL [id number] Jassi Clemens MD FACS SPEC NUM: [id number] RECD: 04/23/24 STATUS: MERNA RIVERA NUM: [id number] RANJITH: 04/23/24-1204 [facility] DR: Jassi Clemens MD FACS ENTERED: 04/23/[address] [facility] [address]: CED TYPE: Surgical DEPT: LUANA MOYER ENTERED BY: [id number] RECV BY: [id number] ORDERED: CD45/2, HE/4, Gross/Micro L4, AE1-AE3, BCL-2, BCL-6, CD10, CD20, CD23, CD3, CD30/2, CD5, PAX5/2 ORDERED: CD45/2, HE/4, Gross/Micro L4, AE1-AE3, BCL-2, BCL-6, CD10, CD20, CD23, CD3, CD30/2, CD5, PAX5/2, USS/7 Supplemental Report Addendum 3 Entered: 05/15/24-1014 Supplemental for addended consultation report from [facility] Addendum -Repeat MUM1 immunostain does in fact stain the focal large atypical cells -No change in final diagnosis Addendum Signed (signature on file) Trinity Lauren MD 05/15/24 1014 Addendum 2 Entered: 05/14/24 Supplemental for findings of consultation report from [facility]: -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 Specimen: [id number] Received: 04/23/24 Status: MERNA Rivera Num: [id number] Spec Type: Surgical Subm Dr: Jassi Clemens MD FACS Tissues: A Lymph Node - Biopsy (Needle or Incisional) (R AXILLARY LYMPH NODE BX) Procedures: CD45/2, HE/4, Gross/Micro L4, AE1-AE3, BCL-2, BCL-6, CD10, CD20, CD23, CD3, CD30/2, CD5, PAX5/2 Patient: AsiyabellegiaHoang Hector [id number] (Continued) Specimen: [id number] Received: 04/23/24 (Continued) Supplemental Report (Continued) Signed (signature on file) Trinity Lauren MD 05/01/24 1651 Specimen: [id number] Received: 04/23/24 Status: MERNA Rivera Num: [id number] Spec Type: Surgical Subm Dr: Jassi Clemens MD FACS Tissues: A Lymph Node - Biopsy (Needle or Incisional) (R AXILLARY LYMPH NODE BX) Procedures: CD45/2, HE/4, Gross/Micro L4, AE1-AE3, BCL-2, BCL-6, CD10, CD20, CD23, CD3, CD30/2, CD5, PAX5/2 Patient: Hoang Tran [id number] (Continued) Specimen: [id number] Received: 04/23/24-2 (Continued) Supplemental Report (Continued) lymphocytes -See comment Addendum Signed (signature on file) Trinity Lauren MD 05/14/24 1437 Addendum 1 Entered: 05/07/24 Supplemental for findings of Flow Cytometry report from [facility] -No significant lymphoid immunophenotypic abnormalities detected Addendum Signed (signature on file)Sandra__Piotr Lauren MD 05/07/24943 Pathological Diagnosis Right axillary lymph node, excisional biopsy: -Positive for atypical lymphoid cell in at least 1 small focus, and with 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 The CD20 is equivocal (at least some atypical cells are negative). The Bcl-2 is not contributory because of the significant processing related disruption in the area of interest. The BCL6 is also equivocal (at least rare atypical cells are weakly positive, but overall is also limited by focal disruption of the section for interpretation. The immunoprofile otherwise can also support the above interpretation. CD30, PAX5, and CD45 are also applied to A1 section, but are not contributory. -The concurrent flow cytometry study from [facility] is no significant lymphoid (more content not included)... Normal [facility] Robert 04-11-2024 L Specimen: [id number] R eceived: 04/14/24 Status: [facility] Num: [id number] Spec Type: Surgical Subm Dr: Hoang Strange MD Tissues: A Lymph Node - Biopsy (Needle or Incisional) (R AXILLA LYMPH NODE) B Gross Only (LYMPH NODE) Procedures: HE/2, Gross/Micro L4, Level 1 Gross Age/ Patient Sex Location Account Attending Physician Hoang Tran 68/M LABELL [id number] Hoang Strange MD SPEC NUM: [id number] RECD: 04/14/24 STATUS: MERNA RIVERA NUM: [id number] RANJITH: 04/11/24- SUBM DR: Hoang Strange MD ENTERED: 04/14/[address] [facility]: Mark,Lab SPEC TYPE: Surgical DEPT: LUANA MOYER ENTERED BY: [id number] RECV BY: [id number] ORDERED: HE/2, Gross/Micro L4, Level 1 Gross ORDERED: HE/2, Gross/Micro L4, Level 1 Gross Supplemental Report Addendum 2 Entered: 04/21/24 Supplemental for findings of consultation report from [facility]: A, -Extremity limited specimen compatible with malignancy, see comment Addendum Signed (signature on file) Kin-Gama Lauren MD 04/21/245 Addendum 1 Entered: 04/18/241016 Supplemental for findings of flow cytometry report from [facility]: -Tests canceled -This test is canceled due to poor sample quality / poor viability Specimen: [id number] Received: 04/14/24 Status: MERNA Rivera Num: [id number] Spec Type: Surgical Subm Dr: Hoang Strange MD Tissues: A Lymph Node - Biopsy (Needle or Incisional) (R AXILLA LYMPH NODE) B Gross Only (LYMPH NODE) Procedures: HE/2, Gross/Micro L4, Level 1 Gross Patient: Hoang Tran [id number] (Continued) Specimen: [id number] Received: 04/14/24 (Continued) Supplemental Report (Continued) Signed (signature on file) Trinity Lauren MD 04/17/24 1127 Specimen: [id number] Received: 04/14/24 Status: MERNA Rivera Num: [id number] Spec Type: Surgical Subm Dr: Hoang Strange MD Tissues: A Lymph Node - Biopsy (Needle or Incisional) (R AXILLA LYMPH NODE) B Gross Only (LYMPH NODE) Procedures: HE/2, Gross/Micro L4, Level 1 Gross Patient: Hoang Tran [id number] (Continued) Specimen: [id number] Received: 04/14/24-1045 (Continued) Supplemental Report (Continued) Addendum Signed (signature on file) Kin-Gama Lauren MD 04/18/24 1734 Pathological Diagnosis A, [...] sent to an outside facility. DM Specimen: [id number] Received: 04/14/24 Status: MERNA Rivera Num: [id number] Spec Type: Surgical Subm Dr: Hoang Strange MD Tissues: A Lymph Node - Biopsy (Needle or Incisio (more content not included)... Normal [facility] Office Visiton 03-28-2024 Follow-up visit [id number] Allen Tran W 1955 M [facility] Provider Department Center 03/28/2024 JEROD BANKS Family History Problem Relation Age of Onset Coronary artery disease Mother Family Status - Relation Status Age at Mother Level of Service:03246 [place] OFFICE/OUTPATIENT ESTABLISHED MOD MDM 30 MIN Normal [facility] Office Visiton 02-25-2024 Follow-up visit [id number] Allen Tran W 1955 M Date Provider Department Center 02/25/2024 JEROD BANKS Family History Problem Relation Age of Onset Coronary artery disease Mother Family Status - Relation Status Age at Mother Level of Service:41260 [place] OFFICE/OUTPATIENT NEW MODERATE MDM 45 MINUTES Normal [facility] Insurance Correspondenceon 0 01-30-2024 Insurance Correspondence [id number]#1.00TIFF Normal [facility] Consent for Procedure/Surger yon 01-22-2024 Consent for Procedure/Surgery [id number]#1.00TIFF [facility] Physician Referralon 024 Physician Referral [id number]#1.00TIFF [facility] Screenson 01-22-2024 Screens [id number]#1.00TIFF [facility] Ambulatory Visit Summaryon 0 01-21-2024 Ambulatory [...] [facility] [address], [place] [address]- Medications What When Instructions Unchanged amlodipine (amLODIPine [...] urine (ur (more content not included)... Normal [facility] Patient Educationon 01-21-20 Patient Education Urology [...] Follow these instructions at home: ? Take mcfs-wks-anqhliz and prescription medicines only as told by [...] the medicine (more content not included)... Normal [facility] INSULINon 08-27-2021 Insulin 19.2 uIU/mL Normal 2.6-24.9 [facility] Comment on above: Performed By: #### I NSULIN #### [facility] [address] [place] [address] Dr. Forrest Lauren CBC AUTO DIFFon 08-26-2021 BASO # 0.1 103/ul Normal 0.0-0.1 [facility] Comment on above: Performed By: #### P SASC #### [facility] [address] [place] [address] Dr. Forrest Lauren Basophils/100 WBC (Bld) 0.8 % Normal 0.2-2.0 [facility] Comment on above: Performed By: #### P SASC #### [facility] [address] [address] [address] Forrest Lauren EO # 0.4 103/ul Normal 0.0-0.7 [facility] Comment on above: Performed By: #### P SASC #### [facility] [address] [place] [address] Dr. Forrest Lauren Eosinophils/100 WBC (Bld) 4.8 % Normal 0.9-7.0 [facility] Comment on above: Performed By: #### P SASC #### [facility] [address] [place] [address] Dr. Forrest Lauren Erythrocyte distribution width (RBC) [Ratio] 12.7 % Normal 11.0-15.0 [facility] Comment on above: Performed By: #### P SASC #### [facility] [address] [place] [address] Dr. Forrest Lauren Hematocrit (Bld) [Volume fraction] 48.3 % Normal 42.0-54.0 [facility] Comment on above: Performed By: #### P SASC #### [facility] [address] [place] [address] Dr. Forrest Lauren Hemoglobin (Bld) [Mass/Vol] 16.4 g/dL Normal 14.0-18.0 [facility] Comment on above: Performed By: #### P SASC #### [facility] [address] [place] [address] Dr. Forrest Lauren IG # 0.05 10e3/ul Critically high 0.00-0.03 [facility] Comment on above: Performed By: #### P SASC #### [facility] [address] [place] [address] Dr. Forrest Lauren IG % 0.6 % Critically high 0.0-0.5 [facility] Comment on above: Performed By: #### P SASC #### [facility] [address] [place] [address] Dr. Forrest Lauren LYMPH # 2.0 103/ul Normal 1.2-3.8 [facility] Comment on above: Performed By: #### P SASC #### [facility] [address] [place] [address] Dr. Forrest Lauren Lymphocytes/100 WBC (Bld) 22.6 % Normal 20.5-60.0 [facility] Comment on above: Performed By: #### P SASC #### [facility] [address] [place] [address] Dr. Forrest Lauren MANUAL DIFF REQ NO Normal [facility] Comment on above: Performed By: #### P SASC #### [facility] [address] [address] [address] Forrest Lauren MCH (RBC) [Entitic mass] 29.8 pg Normal 25.9-34.0 [facility] Comment on above: Performed By: #### P SASC #### [facility] [address] [place] [address] Dr. Forrest Lauren MCHC (RBC) [Mass/Vol] 34.0 g/dL Normal 29.9-35.2 [facility] Comment on above: Performed By: #### P SASC #### [facility] [address] [address] [address] Forrest Lauren MCV (RBC) [Entitic vol] 87.8 fL Normal 80.0-94.0 [facility] Comment on above: Performed By: #### P SASC #### [facility] [address] [place] [address] Dr. Forrest Lauren MONO # 0.7 103/ul Normal 0.3-0.8 [facility] Comment on above: Performed By: #### P SASC #### [facility] [address] [place] [address] Dr. Forrest Lauren Monocytes/100 WBC (Bld) 8.0 % Normal 1.7-12.0 [facility] Comment on above: Performed By: #### P SASC #### [facility] [address] [place] [address] Dr. Forrest Lauren NEUT # 5.7 103/ul Normal 1.4-6.5 [facility] Comment on above: Performed By: #### P SASC #### [facility] [address] [place] [address] Dr. Forrest Lauren Neutrophils/100 WBC (Bld) 63.2 % Normal 43.0-75.0 [facility] Comment on above: Performed By: #### P SASC #### [facility] [address] [place] [address] Dr. Forrest Lauren Platelet mean volume (Bld) [Entitic vol] 9.7 fL Normal 9.5-13.5 [facility] Comment on above: Performed By: #### P SASC #### [facility] [address] [address] [address] Forrest Lauren PLT 242 103/ul Normal 150-450 [facility] Comment on above: Performed By: #### P SASC #### [facility] [address] [address] [address] Forrest Lauren RBC 5.50 106/ul Normal 4.70-6.10 [facility] Comment on above: Performed By: #### P SASC #### [facility] [address] [address] [address] Forrest Lauren WBC 9.0 103/ul Normal 4.0-11.0 [facility] Comment on above: Performed By: #### P SASC #### [facility] [address] [place] [address] Dr. Forrest Lauren GLYCOHEMOGLOBIN A1Con 2021 ADA RECOMMENDATION ADA THERAPEUTIC TARGET 6.0 - 7.0 ACTION SUGGESTED > 7.0 Normal [facility] Comment on above: Performed By: #### A 1C #### [facility] [address] [place] [address] Dr. Forrest Lauren Glucose [Mass/Vol] 194 mg/dL Normal [facility] Comment on above: Performed By: #### A 1C #### [facility] [address] [place] [address] Dr. Forrest Lauren HbA1c (Bld) [Mass fraction] 8.4 % Critically high <=6.0 [facility] Comment on above: Performed By: #### A 1C #### [facility] [address] [address] [address] Forrest Lauren LIPID PROFILEon 08-26-2021 CHOL-HDL RATIO NORM SEE BELOW Normal [facility] Comment on above: Result Comment: 3.3 - 4.4 LOW RISK 4.4 - 7.1 AVERAGE RISK 7.1 - 11.0 MODERATE RISK >11.0 HIGH RISK Performed By: #### P SASC #### [facility] [address] [place] [address] Dr. Forrest Lauren Cholesterol [Mass/Vol] 117 mg/dL Normal <=200 [facility] Comment on above: Performed By: #### P SASC #### [facility] [address] [address] [address] Forrest Lauren Cholesterol in HDL [Mass/Vol] 43 mg/dL Normal [facility] Comment on above: Performed By: #### P SASC #### [facility] [address] [address] [address] Forrest Lauren Cholesterol in LDL [Mass/Vol] 45.6 mg/dL Normal [facility] Comment on above: Performed By: #### P SASC #### [facility] [address] [address] [address] Forrest Lauren Cholesterol.total /Cholesterol in HDL [Mass ratio] 2.7 {ratio} Normal [facility] Comment on above: Performed By: #### P SASC #### [facility] [address] [place] [address] Dr. Forrest Lauren HDL NORMAL > or = 60 mg/dl - LO W CARDIOVASCULAR RISK <40 mg/dl - HIGH CARDIOVASCULAR RISK Normal [facility] Comment on above: Performed By: #### P SASC #### [facility] [address] [place] [address] Dr. Forrest Lauren LDL CALC NORMAL SEE BELOW Normal [facility] Comment on above: Result Comment: <100 mg/dl OPTIMAL 100 - 129 mg/dl NEAR OR ABOVE OPTIMAL 130 - 159 mg/dl BORDERLINE HIGH 160 - 189 mg/dl HIGH >190 mg/dl VERY HIGH Performed By: #### P SASC #### [facility] [address] [place] [address] Dr. Forrest Lauren Triglyceride [Mass/Vol] 142 mg/dL Normal <=150 [facility] Comment on above: Performed By: #### P SASC #### [facility] [address] [place] [address] Dr. Forrest Lauren VLDL CALC 28.4 mg/dL Normal [facility] Comment on above: Performed By: #### P SASC #### [facility] [address] [place] [address] Dr. Forrest Lauren PROF 14(COMP METB)on 022 Albumin [Mass/Vol] 4.1 g/dL Normal 3.5-5.0 [facility] Comment on above: Performed By: #### P SASC #### [facility] [address] [place] [address] Dr. Forrest Lauren Albumin/Globulin [Mass ratio] 1.2 {ratio} Normal [facility] Comment on above: Performed By: #### P SASC #### [facility] [address] [place] [address] Dr. Forrest Lauren ALP [Catalytic activity/Vol] 82 U/L Normal 38-126 [facility] Comment on above: Performed By: #### P SASC #### [facility] [address] [place] [address] Dr. Forrest Lauren ALT [Catalytic activity/Vol] 38 U/L Normal 21-72 [facility] Comment on above: Performed By: #### P SASC #### [facility] [address] [place] [address] Dr. Forrest Lauren Anion gap [Moles/Vol] 12.7 mmol/L Normal [facility] Comment on above: Performed By: #### P SASC #### [facility] [address] [place] [address] Dr. Forrest Lauren AST [Catalytic activity/Vol] 18 U/L Normal 17-59 [facility] Comment on above: Performed By: #### P SASC #### [facility] [address] [place] [address] Dr. Forrest Lauren Bilirubin [Mass/Vol] 1.2 mg/dL Normal 0.2-1.3 [facility] Comment on above: Performed By: #### P SASC #### [facility] [address] [place] [address] Dr. Forrest Lauren Calcium [Mass/Vol] 9.7 mg/dL Normal 8.4-10.2 [facility] Comment on above: Performed By: #### P SASC #### [facility] [address] [place] [address] Dr. Forrest Lauren Chloride [Moles/Vol] 102 mmol/L Normal 98-107 [facility] Comment on above: Performed By: #### P SASC #### [facility] [address] [address] [address] Forrest Lauren CO2 [Moles/Vol] 30.6 mmol/L Critically high 22.0-30.0 [facility] Comment on above: Performed By: #### P SASC #### [facility] [address] [address] [address] Forrest Lauren Creatinine [Mass/Vol] 1.09 mg/dL Normal 0.66-1.25 [facility] Comment on above: Performed By: #### P SASC #### [facility] [address] [place] [address] Dr. Forrest Lauren EGFR-AF BRAZILIAN >60 Normal >=60 [facility] Comment on above: Performed By: #### P SASC #### [facility] [address] [address] [address] Forrest Lauren EGFR-NON AF BRAZILIAN >60 Normal >=60 [facility] Comment on above: Performed By: #### P SASC #### [facility] [address] [address] [address] Forrest Lauren Globulin (S) [Mass/Vol] 3.4 g/dL Normal [facility] Comment on above: Performed By: #### P SASC #### [facility] [address] [address] [address] Forrest Lauren Glucose [Mass/Vol] 238 mg/dL Critically high 74-106 [facility] Comment on above: Performed By: #### P SASC #### [facility] [address] [address] [address] Forrest Lauren Potassium [Moles/Vol] 4.3 mmol/L Normal 3.4-5.0 [facility] Comment on above: Performed By: #### P SASC #### [facility] [address] [place] [address] Dr. Forrest Lauren Protein [Mass/Vol] 7.5 g/dL Normal 6.1-8.2 [facility] Comment on above: Performed By: #### P SASC #### [facility] [address] [address] [address] Forrest Lauren Sodium [Moles/Vol] 141 mmol/L Normal 137-145 [facility] Comment on above: Performed By: #### P SASC #### [facility] [address] [address] [address] Forrest Lauren Urea nitrogen [Mass/Vol] 20.0 mg/dL Normal 9.0-20.0 [facility] Comment on above: Performed By: #### P SASC #### [facility] [address] [address] [address] Forrest Lauren Urea nitrogen/Creatini ne [Mass ratio] 18.3 mg/mg Normal [facility] Comment on above: Performed By: #### P SASC #### [facility] [address] [place] [address] Dr. Forrest Lauren URIC ACID SERUMon 08-26-2021 Urate [Mass/Vol] 4.8 mg/dL Normal 3.5-8.5 [facility] Comment on above: Performed By: #### P SASC #### [facility] [address] [place] [address] Dr. Forrest Lauren Covid-19 PCR ([facility])on Sample Type Test performed using RT-PCR from a nasopharyngeal collected specimen. Normal [facility] Comment on above: Performed By: #### P SASC #### [facility] [address] [place] [address] Dr. Forrest Lauren SARS-CoV-2 (COVID-19) RNA MERA+probe Ql (Unsp spec) Detected Abnormal NOT DETECTED [facility] Comment on above: Result Comment: This test is not yet approved or cleared by the [place] FDA. When there are no FDA-approved or cleared tests available, and other criteria are met, FDA can make tests available under an emergency access mechanism called an Emergency Use Authorization (EUA). The EUA for this test is supported by the [place] of Health and Human Service's (HHS's) declaration [...] used). Performed By: #### P SASC #### [facility] [address] [place] [address] Dr. Forrest Lauren POINT OF CARE GLUCOSEon 05-0 Glucose [Mass/Vol] 255 mg/dL Critically high 74-106 [facility] Comment on above: Performed By: #### P OCGLUC #### [facility] [address] [place] [address] Matias Rivas XR CHEST 1 Von 12-07-2020 [...] AMARIS WALKER Date: 2020-12-06 22:04 Normal [facility] INSULINon 10-02-2020 Insulin 16.9 uIU/mL Normal 2.6-24.9 [facility] Comment on above: Performed By: #### P SASC #### [facility] [address] [place] [address] Dr. Forrest Lauren CBC AUTO DIFFon 10-01-2020 BASO # 0.1 103/ul Normal 0.0-0.1 [facility] Comment on above: Performed By: #### C BC #### [facility] [address] [place] [address] Matias Rivas Basophils/100 WBC (Bld) 0.6 % Normal 0.2-2.0 [facility] Comment on above: Performed By: #### C BC #### [facility] [address] [place] [address] Matias Evelyn EO # 0.4 103/ul Normal 0.0-0.7 [facility] Comment on above: Performed By: #### C BC #### [facility] [address] [place], [place] [id number] Matias Evelyn Eosinophils/100 WBC (Bld) 4.2 % Normal 0.9-7.0 [facility] Comment on above: Performed By: #### C BC #### [facility] [address] [place], [place] [id number] Matias Evelyn Erythrocyte distribution width (RBC) [Ratio] 13.1 % Normal 11.0-15.0 [facility] Comment on above: Performed By: #### C BC #### [facility] [address] [place] [address] Matias Evelyn Hematocrit (Bld) [Volume fraction] 50.2 % Normal 42.0-54.0 [facility] Comment on above: Performed By: #### C BC #### [facility] [address] [place], [place] [id number] Matias Evelyn Hemoglobin (Bld) [Mass/Vol] 16.6 g/dL Normal 14.0-18.0 [facility] Comment on above: Performed By: #### C BC #### [facility] [address] [place] [address] Matias Evelyn IG # 0.05 10e3/ul Critically high 0.00-0.03 [facility] Comment on above: Performed By: #### C BC #### [facility] [address] [place] [address] Matias Evelyn IG % 0.6 % Critically high 0.0-0.5 [facility] Comment on above: Performed By: #### C BC #### [facility] [address] [place], [place] [id number] Matias Evelyn LYMPH # 1.9 103/ul Normal 1.2-3.8 [facility] Comment on above: Performed By: #### C BC #### [facility] [address] [place], [place] [id number] Matias Evelyn Lymphocytes/100 WBC (Bld) 22.2 % Normal 20.5-60.0 [facility] Comment on above: Performed By: #### C BC #### [facility] [address] [place], [place] [phone] Matias Rivas MANUAL DIFF REQ NO Normal [facility] Comment on above: Performed By: #### C BC #### [facility] [address] [place], [place] [phone] Matiaswali Rivas MCH (RBC) [Entitic mass] 29.4 pg Normal 25.9-34.0 [facility] Comment on above: Performed By: #### C BC #### [facility] [address] [place] [address] Matiaswali Rivas MCHC (RBC) [Mass/Vol] 33.1 g/dL Normal 29.9-35.2 [facility] Comment on above: Performed By: #### C BC #### [facility] [address] [place] [address] Matiaswali Rivas MCV (RBC) [Entitic vol] 88.8 fL Normal 80.0-94.0 [facility] Comment on above: Performed By: #### C BC #### [facility] [address] [place], [place] [phone] Matias Rivas MONO # 0.7 103/ul Normal 0.3-0.8 [facility] Comment on above: Performed By: #### C BC #### [facility] [address] [place], [place] [phone] Matias Evelyn Monocytes/100 WBC (Bld) 7.7 % Normal 1.7-12.0 [facility] Comment on above: Performed By: #### C BC #### [facility] [address] [place], [place] [phone] Matias Evelyn NEUT # 5.7 103/ul Normal 1.4-6.5 [facility] Comment on above: Performed By: #### C BC #### [facility] [address] [place], [place] [phone] Matias Evelyn Neutrophils/100 WBC (Bld) 64.7 % Normal 43.0-75.0 [facility] Comment on above: Performed By: #### C BC #### [facility] [address] [place], [place] [address] Matias Rivas Platelet mean volume (Bld) [Entitic vol] 10.4 fL Normal 9.5-13.5 [facility] Comment on above: Performed By: #### C BC #### [facility] [address] [place], [place] [phone] Matiaswali Rodasen PLT 243 103/ul Normal 150-450 [facility] Comment on above: Performed By: #### C BC #### [facility] [address] [place], [place] [phone] Matias Evelyn RBC 5.65 106/ul Normal 4.70-6.10 [facility] Comment on above: Performed By: #### C BC #### [facility] [address] [place] [address] Matias Rivas WBC 8.7 103/ul Normal 4.0-11.0 [facility] Comment on above: Performed By: #### C BC #### [facility] [address] [place] [address] Matias Rivas FREE THYROXINE INDEX T7on FTI 2.11 Normal [facility] Comment on above: Performed By: #### U TARIK, CMP, T7, PSASC, TSH, LIPID #### [facility] [address] [place], [place] [phone] Matias Rivas T3U 34.0 % Normal 23.5-40.5 [facility] Comment on above: Performed By: #### U TARIK, CMP, T7, PSASC, TSH, LIPID #### [facility] [address] [place], [place] [address] Matias Rivas T4 [Mass/Vol] 6.20 ug/dL Normal 5.53-11.00 [facility] Comment on above: Performed By: #### U TARIK, CMP, T7, PSASC, TSH, LIPID #### [facility] [address] [place], [place] [id number] Matias Rivas GLYCOHEMOGLOBIN A1Con 02-26- 2021 ADA RECOMMENDATION ADA THERAPEUTIC TARGET 6.0 - 7.0 ACTION SUGGESTED > 7.0 Normal [facility] Comment on above: Performed By: #### A 1C #### [facility] [address] [address] Matias Rivas Glucose [Mass/Vol] 266 mg/dL Normal [facility] Comment on above: Performed By: #### A 1C #### [facility] [address] [address] Matias Rivas HbA1c (Bld) [Mass fraction] 10.9 % Critically high <=6.0 [facility] Comment on above: Performed By: #### A 1C #### [facility] [address] [place] [address] Matias Rivas LIPID PROFILEon 10-01-2020 CHOL-HDL RATIO NORM SEE BELOW Normal [facility] Comment on above: Result Comment: 3.3 - 4.4 LOW RISK 4.4 - 7.1 AVERAGE RISK 7.1 - 11.0 MODERATE RISK >11.0 HIGH RISK Performed By: #### P SASC #### [facility] [address] [place] [address] Dr. Forrest Lauren Cholesterol [Mass/Vol] 110 mg/dL Normal <=200 [facility] Comment on above: Performed By: #### P SASC #### [facility] [address] [place] [address] Dr. Forrest Lauren Cholesterol in HDL [Mass/Vol] 36 mg/dL Normal [facility] Comment on above: Performed By: #### P SASC #### [facility] [address] [address] [address] Forrest Lauren Cholesterol in LDL [Mass/Vol] 36.2 mg/dL Normal [facility] Comment on above: Performed By: #### P SASC #### [facility] [address] [place] [address] Dr. Forrest Lauren Cholesterol.total /Cholesterol in HDL [Mass ratio] 3.1 {ratio} Normal [facility] Comment on above: Performed By: #### P SASC #### [facility] [address] [place] [address] Dr. Forrest Lauren HDL NORMAL > or = 60 mg/dl - LO W CARDIOVASCULAR RISK <40 mg/dl - HIGH CARDIOVASCULAR RISK Normal [facility] Comment on above: Performed By: #### P SASC #### [facility] [address] [address] [address] Forrest Lauren LDL CALC NORMAL SEE BELOW Normal [facility] Comment on above: Result Comment: <100 mg/dl OPTIMAL 100 - 129 mg/dl NEAR OR ABOVE OPTIMAL 130 - 159 mg/dl BORDERLINE HIGH 160 - 189 mg/dl HIGH >190 mg/dl VERY HIGH Performed By: #### P SASC #### [facility] [address] [address] [address] Forrest Lauren Triglyceride [Mass/Vol] 189 mg/dL Critically high <=150 [facility] Comment on above: Performed By: #### P SASC #### [facility] [address] [place] [address] Dr. Forrest Lauren VLDL CALC 37.8 mg/dL Normal [facility] Comment on above: Performed By: #### P SASC #### [facility] [address] [place] [address] Dr. Forrest Lauren PROF 14(COMP METB)on 021 Albumin [Mass/Vol] 4.1 g/dL Normal 3.5-5.0 [facility] Comment on above: Performed By: #### U TARIK, CMP, T7, PSASC, TSH, LIPID #### [facility] [address] [place] [address] Matias Rivas Albumin/Globulin [Mass ratio] 1.2 {ratio} Normal [facility] Comment on above: Performed By: #### U TARIK, CMP, T7, PSASC, TSH, LIPID #### [facility] [address] [address] Matias Evelyn ALP [Catalytic activity/Vol] 80 U/L Normal 38-126 [facility] Comment on above: Performed By: #### U TARIK, CMP, T7, PSASC, TSH, LIPID #### [facility] [address] [place] [address] Matias Evelyn ALT [Catalytic activity/Vol] 42 U/L Normal 21-72 [facility] Comment on above: Performed By: #### U TARIK, CMP, T7, PSASC, TSH, LIPID #### [facility] [address] [address] Matias Evelyn Anion gap [Moles/Vol] 12.3 mmol/L Normal [facility] Comment on above: Performed By: #### U TARIK, CMP, T7, PSASC, TSH, LIPID #### [facility] [address] [address] Matias Evelyn AST [Catalytic activity/Vol] 24 U/L Normal 17-59 [facility] Comment on above: Performed By: #### U TARIK, CMP, T7, PSASC, TSH, LIPID #### [facility] [address] [place] [address] Matias Evelyn Bilirubin [Mass/Vol] 1.3 mg/dL Normal 0.2-1.3 [facility] Comment on above: Performed By: #### U TARIK, CMP, T7, PSASC, TSH, LIPID #### [facility] [address] [address] Matias Evelyn Calcium [Mass/Vol] 9.3 mg/dL Normal 8.4-10.2 [facility] Comment on above: Performed By: #### U TARIK, CMP, T7, PSASC, TSH, LIPID #### [facility] [address] [place] [address] Matias Evelyn Chloride [Moles/Vol] 103 mmol/L Normal 98-107 [facility] Comment on above: Performed By: #### U TARIK, CMP, T7, PSASC, TSH, LIPID #### [facility] [facility] [address] [address] Matias Evelyn CO2 [Moles/Vol] 30.0 mmol/L Normal 22.0-30.0 [facility] Comment on above: Performed By: #### U TARIK, CMP, T7, PSASC, TSH, LIPID #### [facility] [address] [address] Matias Evelyn Creatinine [Mass/Vol] 1.20 mg/dL Normal 0.66-1.25 [facility] Comment on above: Performed By: #### U TARIK, CMP, T7, PSASC, TSH, LIPID #### [facility] [address] [address] Matias Evelyn EGFR-AF BRAZILIAN >60 Normal >=60 [facility] Comment on above: Performed By: #### U TARIK, CMP, T7, PSASC, TSH, LIPID #### [facility] [address] [address] Matias Evelyn EGFR-NON AF BRAZILIAN >60 Normal >=60 [facility] Comment on above: Performed By: #### U TARIK, CMP, T7, PSASC, TSH, LIPID #### [facility] [address] [address] Matias Evelyn Globulin (S) [Mass/Vol] 3.5 g/dL Normal [facility] Comment on above: Performed By: #### U TARIK, CMP, T7, PSASC, TSH, LIPID #### [facility] [address] [place] [address] Matias Evelyn Glucose [Mass/Vol] 269 mg/dL Critically high 74-106 [facility] Comment on above: Performed By: #### U TARIK, CMP, T7, PSASC, TSH, LIPID #### [facility] [address] [place] [address] Matias Evelyn Potassium [Moles/Vol] 4.3 mmol/L Normal 3.4-5.0 [facility] Comment on above: Performed By: #### U TARIK, CMP, T7, PSASC, TSH, LIPID #### [facility] [address] [place] [address] Matias Evelyn Protein [Mass/Vol] 7.6 g/dL Normal 6.1-8.2 [facility] Comment on above: Performed By: #### U TARIK, CMP, T7, PSASC, TSH, LIPID #### [facility] [address] [place] [address] Matias Evelny Sodium [Moles/Vol] 141 mmol/L Normal 137-145 [facility] Comment on above: Performed By: #### U TARIK, CMP, T7, PSASC, TSH, LIPID #### [facility] [address] [address] Matias Rivas Urea nitrogen [Mass/Vol] 17.0 mg/dL Normal 9.0-20.0 [facility] Comment on above: Performed By: #### U TARIK, CMP, T7, PSASC, TSH, LIPID #### [facility] [address] [address] Matias Rivas Urea nitrogen/Creatini ne [Mass ratio] 14.2 mg/mg Normal [facility] Comment on above: Performed By: #### U TARIK, CMP, T7, PSASC, TSH, LIPID #### [facility] [address] [place] [address] Matias Rivas TSHon 10-01-2020 TSH 1.574 uIU/mL Normal 0.470-4.68 0 [facility] Comment on above: Performed By: #### P SASC #### [facility] [address] [place] [address] Dr. Forrest Lauren TSH RANGE SEE BELOW Normal [facility] Comment on above: Result Comment: <0.3 4 UIU/ml HYPERTHYROID 0.34-5.60 UIU/ml EUTHYROID >5.60 UIU/ml HYPOTHYROID Performed By: #### P SASC #### [facility] [address] [place] [address] Dr. Forrest Lauren URIC ACID SERUMon 10-01-2020 Urate [Mass/Vol] 4.8 mg/dL Normal 3.5-8.5 [facility] Comment on above: Performed By: #### P SASC #### [facility] [address] [place] [address] Dr. Forrest Lauren Cardiovascular Lab Reporton 08-03-2017 Cardiovascular Lab Report [facility] Patient Name: [facility] MR #: [id number] Physician: Jerod Miller M.D.Medicine Service Date: 2017Division of Birthdate: 6Cardiology Room #: [facility], [place] [address]Jzfxp Fax Cardiovascular Laboratory ReportINDICATION: Hoang Tran is [...] the right internal jugular vein and a 6-Filipino x 11cm sheath was placed. A 6-Filipino Griffith catheter was used for right heartcatheterization with measurement of pressures and calculation of cardiacoutput using the estimated Luke method. Griffith catheter was removed.Using ultrasound guidance and micropuncture technique, access was obtainedin the left radial artery and a 6-Filipino x 11 cm Hydrophilic sheath wasadvanced. Verapamil [...] 08/02/2017/02:42 P/Jerod Manuel M.D.Date Trans: 08/03/2017 11:29 A/[id number]: Yfn Mata D.O. [address] [place] [address] Normal [facility] Vital Signs Date Time Vital Sign Value Performing Clinician Jose fairchild 01-21-2024 11:44-0400 Blood Pressure Location Moody [facility] 01-21-2024 11:44-0400 Diastolic blood pressure 72 mm[Hg] Moody [facility] 01-21-2024 11:44-0400 Heart rate 70 /min Moody POP [facility] 01-21-2024 11:44-0400 Respiratory rate 16 /min Moody [facility] 01-21-2024 11:44-0400 Systolic blood pressure 108 mm[Hg] Moody [facility] Encounters Encounter Date Encounter Type Care Provider Facility Start: 04-30-2024 End: 04-30-2024 ambulatory Jassi CLEMENS Facility: [facility] Start: 04-30-2024 End: 04-30-2024 Patient encounter procedure Jassi CLEMENS [facility] [place] Start: 04-28-2024 ambulatory Moody POP Facility :[facility] Start: 04-23-2024 End: 04-23-2024 ambulatory DO González Kuns Work Phone: [facility] Work Phone: Start: 04-23-2024 End: 04-23-2024 Departed Referred DO González Kuns Work Phone: [facility] Start: 04-23-2024 ambulatory Moody POP Facility : [place] Start: 04-22-2024 End: 04-23-2024 ambulatory Jassi CLEMENS Facility:CD:[id number] Start: 04-11-2024 End: 04-11-2024 ambulatory DO González Kuns Work Phone: [facility] Work Phone: Start: 04-11-2024 End: 04-11-2024 Departed Referred DO González Kuns Work Phone: [facility] Start: 03-28-2024 End: 03-28-2024 ambulatory [facility] Start: 02-25-2024 End: 02-25-2024 ambulatory [facility] Start: 02-11-2024 End: 02-11-2024 ambulatory Moody POP Facility:[id number] Start: 01-21-2024 End: 01-21-2024 ambulatory Moody POP Facility:[facility] [place] Start: 01-21-2024 End: 01-21-2024 Patient encounter procedure Moody POP [facility] Start: 09-12-2023 ambulatory Moody POP Facility :[facility] [place] Start: 08-26-2021 End: 08-26-2021 ambulatory AILIN BAKER Facility:[facility] Start: 02-23-2021 ambulatory AILIN BAKER Facility:[facility] Start: 12-06-2020 End: 12-07-2020 ambulatory ILAN TODD Facility:[facility] Start: 10-07-2020 Encounter for genera l adult medical examination without abnormal findings AILIN BAKER [facility] Start: 10-01-2020 End: 10-02-2020 ambulatory AILIN BAKER Facility:[facility] Start: 10-01-2020 End: 10-02-2020 Encounter for general adult medical examination without abnormal findings AILIN BAKER Facility: Start: 2017 End: 08-03-2017 Ambulatory PROVIDER UNKNOWN Facility:[facility] Start: 07-24-2017 End: 07-25-2017 Ambulatory DEFAULT PHYSICIAN Facility:[facility] Start: 07-19-2017 End: 07-20-2017 Ambulatory DEFAULT PHYSICIAN Facility:[facility] Start: 06-18-2017 End: 06-19-2017 Ambulatory DEFAULT PHYSICIAN Facility:[facility] Procedures Date Procedure Procedure Detail Performing Clinician Start: 04-23-2024 Incisional biopsy Sudhir CLEMENS Start: 08-26-2021 PSA screening AILIN KHAN Comment on above: Performed By: #### P SASC #### [facility] [address] [address] [address] Forrest Lauren Start: 10-01-2020 PSA screening AILIN KHAN Comment on above: Performed By: #### U TARIK, CMP, T7, PSASC, TSH, LIPID #### [facility] [address] [id number] Matias Rivas Start: 08-06-2013 Colonoscopy Moody ASHER Start: 08-06-2004 Neoplasm of brain (disorder) Moody POP Back structure, excl uding neck (body structure) Moody POP Removal of acoustic neuroma Jassi YANCEYRufus Spinal arthrodesis Jassi INFANTE Tonsillectomy [facility] Plan of Treatment Date Care Activity Detail Author Start: 06-09-2024 ambulatory Ambulatory Facility[facility] Payers Date Payer Category Payer Medicare [id number] 1958 [facility] [id number] 1958 Medicare [id number] 1958 Self-pay 1955 Unknown [id number] 593 1955 Unknown [id number] [id number]. 593 1955 Unknown [id number] [id number]. 593 1955 Unknown [id number] [id number]. 593 1956 Unknown [id number] [id number]. 727 1956 Unknown [id number] [id number]. 727 1956 Unknown [id number] 2.16.840.1.090370.3.579.2. 727 1956 Unknown [id number] [id number]. 727 1955 Unknown [id number] [id number]. 727 Private Health Insurance [facility] [id number] Unknown Unknown Bruce BC/BS [id number] Unknown [id number] [id number]. 531 Unknown [id number] [id number]. 531 Social History Date Type Detail Facility Start: 01-21-2024 End: 04-30-2024 Tobacco smoking status Never smoked tobacco (finding) [facility] Tobacco smoking status Never [facility] Sex Assigned At Male [facility] Start: 1955 Sex Assigned At Male F [facility] Functional Status Date Assessment Result Facility 04-30-2024 Functional Status N/A [facility] [place] 01-21-2024 Functional Status N/A [facility] Progress note 03-28-2024 Note Date & Type Note Facility 03-28-2024 Note [facility] Subjective Hoang Tran is a [...] HDL 42. TSH (more content not included)... [facility] Progress note 02-25-2024 Note Date & Type Note Facility 02-25-[address] [facility] Subjective Hoang Tran is a [...] platelets 256, potassium (more content not included)... [facility] Clinical Note 01-21-2024 Note Date [...] neoplasm of prostat (more content not included)... [facility] Comment on above: Result Comment: Elec [...] urethra. Follow these instructions at home: Take [id number] and prescription medicines only as told by [...] provider. Document Revised: 02/08/2022 Document Reviewed: 02/08/2022 [employer] Patient Education 2022 Survature. Follow Up Care 09/13/2023 09:26:56 With:DONN ELLIS, Moody Aranda, URL Address: [facility] [address], [place] [address]- When: Unknown [facility] Evaluation + Plan note Note Date & Type Note Facility Evaluation + Plan note No data available for this section [facility] Evaluation + Plan note Note Date & Type Note Facility Evaluation + Plan note Future Appointments Appointment Date:06/09/2024 10:45:00 AM Scheduled Provider:Moody POP MD Location:[facility] Appointment Type:URO Office Visit [facility] Evaluation note Note Date & Type Note Facility Evaluation note No assessment information availa [facility] Work Phone: Hospital Discharge instructions Note Date & Type Note Facility Hospital Discharge instructions No data available for this section [facility] Progress note Note Date & Type Note Facility Progress note No data available for this section [facility] Summary Purpose Family History No Family History Records FoundNo Family History Records Found No data available for this section No Family History Records Found No data available [...] and content) DATE CREATED AUTHOR 01/29/[address] [facility] DATE CREATED AUTHOR AUTHOR'S ORGANIZ ATION 09/01/2021 [facility] DATE CREATED AUTHOR AUTHOR'S ORGANIZ ATION 03/30/2024 [facility] DATE CREATED AUTHOR AUTHOR'S ORGANIZ ATION 05/01/2024 Raghu Remy [facility] DATE CREATED AUTHOR AUTHOR'S ORGANIZ ATION 05/16/2024 [facility] Patient Care team informatio n [...] Member Role Status Dates Jassi Clemens MD [facility] Attending Provider Active Start: April 23, 2024 [...] BE BASED ON THE PRIMARY CLINICAL RECORDS. [employer] provides no warranty or guarantee of the accuracy or completeness of information in this document.
[2024-05-20] MEDS: ALBUTEROL SULFATE 2.5 MG/3 ML VIAL NEB IH (10:15)
== END 2024-05-20 08:57 | disposition home or self-care (01) ==
LOC: CARD 08:58
PROVIDERS: PCP Nurse Practitioner Family; Visit Provider Internal Medicine Hematology & Oncology
DX: Z51.11 Encounter for antineoplastic chemotherapy (principal); C85.11 Unspecified B-cell lymphoma, lymph nodes of head, face, and neck; R74.01 Elevation of levels of liver transaminase levels; D64.9 Anemia, unspecified; D50.9 Iron deficiency anemia, unspecified; C81.18 Nodular sclerosis Hodgkin lymphoma, lymph nodes of multiple sites; R11.2 Nausea with vomiting, unspecified
CPT/HCPCS: 94060; 94726; 94729

== ENCOUNTER 2024-05-23 08:58 | Outpatient (OUT) | payer MEDICARE, SELFPAY ==
--- NOTE | 2024-05-23 09:00 | CA_ITS ---
Patient Name: NABEEL TRAN MR#: [id number] : 1955 Exam Date: 05/23/2024 Ordering Doctor: JOAN HURLEY ECHOCARDIOGRAM REPORT PROCEDURE: CA ECHO DOPPLER COMPLETE INDICATIONS: Cardiotoxic chemotherapy - Hodgkin lymphoma, diabetes COMPARISON: None. DESCRIPTION: COMPLETE ECHOCARDIOGRAM Real-time transthoracic echocardiography with 2D, M-mode, spectral and color flow Doppler performed. QUALITY: Technical quality was good. LEFT VENTRICLE: Normal chamber size. Mild concentric left ventricular hypertrophy. LV EF: Global left ventricular systolic function is lower limits or normal; ejection fraction is estimated to be 50%. No significant wall motion abnormalities. DIASTOLIC: Normal diastolic function. ATRIAL SEPTUM: Inadequately seen. LEFT ATRIUM: Moderate dilatation. RIGHT ATRIUM: Mild dilatation. RIGHT VENTRICLE: Normal chamber size. Normal right ventricular systolic function. TRICUSPID VALVE: Normal mobility and thickness. Mild regurgitation. No evidence of pulmonary hypertension. RVSP 32 mmHg. MITRAL VALVE: Normal mobility and thickness. No evidence of mitral valve stenosis. There is no mitral annular calcification. Mild mitral regurgitation. AORTIC VALVE: Normal trileaflet appearance. Mildly calcified aortic valve with diminished mobility. Doppler velocity suggests mild aortic valve stenosis. DVI 0.4. No aortic regurgitation. AORTIC ROOT: Normal diameter and appearance. PULMONIC VALVE: Not well visualized. PERICARDIUM: No evidence of pericardial effusion. IVC: Not well visualized. CONCLUSION: 1. Global left ventricular systolic is lower limits of normal; ejection fraction is estimated to be 50% 2. Normal right ventricular size and systolic function 3. Biatrial dilatation 4. Mild concentric left ventricular hypertrophy 5. Mild mitral regurgitation 6. Mild aortic stenosis 7. Mild tricuspid regurgitation Adult Echocardiography Procedure Report Left Ventricle LVEDD (3.7 - 5.6 cm): 4.31 cm LVESD (2.2 - 4.0 cm): 2.44 cm LVIVS thickness (0.6 - 1.2 cm): 1.04 cm LVPW thickness (0.5 - 1.0 cm): 1.30 cm e': 0.21 m/s E - e': 3.99 LVOT Max Gradient: 3.15 mm[Hg] LVOT Area (cm2): 0.89 m/s Peak Velocity (LVOT): 0.89 m/s Mean Velocity (LVOT): 0.57 m/s LVOT Diameter 1.98 cm Left Atrium LA Volume Index (2D A2C): 47.66 ml/m2 Left Atrium Systolic Dimension: 3.42 cm Mitral Valve MV E to A Ratio: 1.12 Mitral Valve A-Wave Peak Velocity: 0.76 m/s Mitral Valve E-Wave Peak Velocity: 0.86 m/s Right Ventricle Aorta AO Root Diam: 3.07 cm Aortic Valve AoV Area (Peak Walt): 1.28 cm2, 2.09 cm2 AoV Area (VTI): 1.16 cm2, 2.02 cm2 Peak Velocity(Antegrade Flow): 1.30 m/s, 2.13 m/s Peak Gradient(Antegrade Flow): 6.77 mm[Hg], 18.20 mm[Hg] Mean Velocity(Antegrade Flow): 0.77 m/s, 1.08 m/s Mean Gradient(Antegrade Flow): 2.98 mm[Hg], 6.33 mm[Hg] Velocity Time Integral: 22.35 cm, 38.71 cm Tricuspid Valve Peak Velocity (Regurgitant Flow): 2.45 m/s, 2.44 m/s Pulmonic Valve Right Atrium Right Atrium Systolic Pressure: 56.29 ml, 56.29 ml Dictated by: Deena Tilley M.D. on 05/23/2024 at 17:07 Approved by: Deena Tilley M.D. on 05/23/2024 at 17:24
--- OUTSIDE RECORDS SUMMARY | 2024-05-23 09:04 | XMS_ITS | CCD ---
Author Organization [facility] Care Team Providers Care Sales Engineer Name Role Phone PHYSICIAN, DEFAULT Unavailable Unavailable PHYSICIAN, DEFAULT Unavailable Unavailable PHYSICIAN, DEFAULT Unavailable Unavailable PHYSICIAN, DEFAULT Unavailable Unavailable PHYSICIAN, DEFAULT Unavailable Unavailable PHYSICIAN, DEFAULT Unavailable Unavailable UNKNOWN, PROVIDER Unavailable Unavailable UNKNOWN, PROVIDER Unavailable Unavailable YFN MATA Unavailable Unavailable ESPERANZA, YFN Unavailable Unavailable AILIN BAKER Admitting Unavailable AILIN BAKER Attending Unavailable RAY, AILIN Primary Care Unavailable RAY AILIN Admitting Unavailable AILIN BAKER Attending Unavailable AILIN BAKER Consulting Unavailable RAY AILIN Primary Care Unavailable AILIN BAKER Attending Unavailable YFN MATA Primary Care Unavailable AILIN BAKER Consulting Unavailable RAY AILIN Admitting Unavailable ILAN TODD Attending Unavailable ILAN TODD Consulting Unavailable ILAN TODD Admitting Unavailable RAY, AILIN Primary Care Unavailable AMARIS WALKER Consulting Unavailable AILIN GREEN Primary Care Physician JEROD MANUEL Attending Unavailable JEROD MANUEL Attending Unavailable DO González Moon Primary Care Provider MD Hoang Strange Attending Provider MD Jassi Clemens Attending Provider Jassi Clemens Admitting Unavailable Jassi Clemens Attending Unavailable Hoang Strange Admitting Unavailable Hoang Strange Attending Unavailable González Moon Primary Care Unavailable Jassi CLEMENS Attending Unavailable Moody POP Attending Unavailable Jassi CLEMENS Attending Unavailable AILIN GREEN Referring Unavailable Moody POP Attending Unavailable Moody POP Attending Unavailable Jassi CLEMENS Attending Unavailable Jassi CLEMENS Attending Unavailable Allergies Allergy Classification Reported Allergen(s) Allergy Type Date of Onset Reaction(s) Facility (2 sources) No Known Allergies; 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: [No Known Allergies] Propensity to adverse reactions (disorder) 7 [facility] Repository (1 source) empagliflozin; 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: [EMPAGLIFLOZIN] Drug Allergy 4 [facility] Repository (1 source) No Known Medication Allergies; 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: [No Known Medication Allergies] Propensity to adverse reactions (disorder) [facility] Repository Medications Current Medications Medication [...] day(s), # 90 cap(s), Refills(s) 3, Pharmacy: [facility] Delivery, 187, cm, 01/21/24 11:48:00 EDT, Height/Length [...] completed, # 2 tab(s), Refills(s) 0, Pharmacy: 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 Normal [facility] General Surgery Office/Clini c Noteon 09-25-2024 General Surgery Office/Clinic Note General Surgery Office/Clinic Note Chief Complaint post operative follow up HPI Staff 7 day post operative follow up post incisional biopsy right axilla adenopathy completed while inpatient at [facility]. Denies soreness, bleeding or drainage. History of [...] 04/30/2024 Family History Heart disease: Mother. Normal [facility] Comment on above: Result Comment: Elec tronically Signed By: AIRAM ELLIS, Jassi Aranda\.br\Date and Time Signed: 04/30/24 14:51 EDT Robert 04-23-2024 L Specimen: [id number] eceived: 04/23/24-1322 [facility] Num: [id number] Spec Type: Surgical Subm Dr: Jassi Clemens MD FACS Tissues: A Lymph Node - Biopsy (Needle or Incisional) (R AXILLARY LYMPH NODE BX) Procedures: CD45/2, HE/4, Gross/Micro L4, AE1-AE3, BCL-2, BCL-6, CD10, CD20, CD23, CD3, CD30/2, CD5, PAX5/2 Age/ Patient Sex Location Account Attending Physician Hoang Tran 68/M LABELL [id number] Jassi Clemens MD FACS SPEC NUM: [id number] RECD: 04/23/24 STATUS: MERNA RIVERA NUM: [id number] RANJITH: 04/23/245 [facility] DR: Jassi Clemens MD FACS ENTERED: 04/23/[address]: SPEC TYPE: Surgical DEPT: LUANA MOYER ENTERED BY: [id number] RECV BY: [id number] ORDERED: CD45/2, HE/4, Gross/Micro L4, AE1-AE3, BCL-2, BCL-6, CD10, CD20, CD23, CD3, CD30/2, CD5, PAX5/2 ORDERED: CD45/2, HE/4, Gross/Micro L4, AE1-AE3, BCL-2, BCL-6, CD10, CD20, CD23, CD3, CD30/2, CD5, PAX5/2, USS/7 Supplemental Report Addendum 3 Entered: 05/15/24-1014 Supplemental for addended consultation report from [facility] Addendum -Repeat MUM1 immunostain does in fact stain the focal large atypical cells -No change in final diagnosis Addendum Signed (signature on file) Kin-Gama Lauren MD 05/15/24 1014 Addendum 2 Entered: 05/14/249801 Supplemental for findings of consultation report from [facility]: -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 Specimen: [id number] Received: 04/23/24 Status: MERNA Rivera Num: [id number] Spec Type: Surgical Subm Dr: Jassi Clemens MD FACS Tissues: A Lymph Node - Biopsy (Needle or Incisional) (R AXILLARY LYMPH NODE BX) Procedures: CD45/2, HE/4, Gross/Micro L4, AE1-AE3, BCL-2, BCL-6, CD10, CD20, CD23, CD3, CD30/2, CD5, PAX5/2 Patient: Hoang Tran [id number] (Continued) Specimen: [id number] Received: 04/23/24 (Continued) Supplemental Report (Continued) Signed (signature on file) Sandra Lauren MD 05/01/24 1651 Specimen: [id number] Received: 04/23/24 Status: MERNA Rivera Num: [id number] Spec Type: Surgical Subm Dr: Jassi Clemens MD FACS Tissues: A Lymph Node - Biopsy (Needle or Incisional) (R AXILLARY LYMPH NODE BX) Procedures: CD45/2, HE/4, Gross/Micro L4, AE1-AE3, BCL-2, BCL-6, CD10, CD20, CD23, CD3, CD30/2, CD5, PAX5/2 Patient: Hoang Tran [id number] (Continued) Specimen: [id number] Received: 04/23/24 (Continued) Supplemental Report (Continued) lymphocytes -See comment Addendum Signed (signature on file) Trinity Lauren MD 05/14/24 1437 Addendum 1 Entered: 05/07/24 [facility] -No significant lymphoid immunophenotypic abnormalities detected Addendum Signed (signature on file)____Alesha Lauren MD 05/07/24943 Pathological Diagnosis Right axillary [...] contributory. -The concurrent flow cytometry study from [facility] is no significant lymphoid (more content not included)... Normal [facility] Robert 04-11-2024 L Specimen: [id number] eceived: 04/14/24 Status: MERNA [facility] Num: [id number] Spec Type: Surgical Subm Dr: Hoang Strange MD Tissues: A Lymph Node - Biopsy (Needle or Incisional) (R AXILLA LYMPH NODE) B Gross Only (LYMPH NODE) Procedures: HE/2, Gross/Micro L4, Level 1 Gross Age/ Patient Sex Location Account Attending Physician Hoang Tran 68/M LABELL [id number] Hoang Strange MD SPEC NUM: [id number] RECD: 04/14/24 STATUS: MERNA REQ NUM: [id number] RANJITH: 04/11/24- DR: Hoang Strange MD ENTERED: 04/14/[address] [facility] DR: Mark,Lab SPEC TYPE: Surgical DEPT: LUANA MOYER ENTERED BY: [id number] RECV BY: [id number] ORDERED: HE/2, Gross/Micro L4, Level 1 Gross ORDERED: HE/2, Gross/Micro L4, Level 1 Gross Supplemental Report Addendum 2 Entered: 04/21/24 Supplemental for findings of consultation report from [facility]: A, -Extremity limited specimen compatible with malignancy, see comment Addendum Signed (signature on file) Trinity Lauren MD 04/21/245 Addendum 1 Entered: 04/18/241415 Supplemental for findings of flow cytometry report from [facility]: -Tests canceled -This test is canceled due to poor sample quality / poor viability Specimen: [id number] Received: 04/14/24 Status: MERNA Reradha Num: [id number] Spec Type: Surgical Subm Dr: Hoang Strange MD Tissues: A Lymph Node - Biopsy (Needle or Incisional) (R AXILLA LYMPH NODE) B Gross Only (LYMPH NODE) Procedures: HE/2, Gross/Micro L4, Level 1 Gross Patient: Hoang Tran [id number] (Continued) Specimen: [id number] Received: 04/14/24 (Continued) Supplemental Report (Continued) Signed (signature on file) Trinity Lauren MD 04/17/24 1127 Specimen: [id number] Received: 04/14/24 Status: MERNA Rivera Num: [id number] Spec Type: Surgical Subm Dr: Hoang Strange MD Tissues: A Lymph Node - Biopsy (Needle or Incisional) (R AXILLA LYMPH NODE) B Gross Only (LYMPH NODE) Procedures: HE/2, Gross/Micro L4, Level 1 Gross Patient: Hoang Tran [id number] (Continued) Specimen: [id number] Received: 04/14/24-1044 (Continued) Supplemental Report (Continued) Addendum Signed (signature [...] sent to an outside facility. DM Specimen: [id number] Received: 04/14/24 Status: MERNA Rivera Num: [id number] Spec Type: Surgical Subm Dr: Hoang Strange MD Tissues: A Lymph Node - Biopsy (Needle or Incisio (more content not included)... Normal [facility] Office Visiton 03-28-2024 Follow-up visit [id number] Allen Tran W 1955 [facility] Provider Department Center 03/28/2024 JEROD BANKS Family History Problem Relation Age of Onset Coronary artery disease Mother Family Status - Relation Status Age at Mother Level of Service:14331 CO OFFICE/OUTPATIENT ESTABLISHED MOD MDM 30 MIN Normal [facility] Office Visiton 02-25-2024 Follow-up visit [id number] Allen Tran W 1955 M Date Provider Department Center 02/25/2024 JEROD BANKS Family History Problem Relation Age of Onset Coronary artery disease Mother Family Status - Relation Status Age at Mother Level of Service:76867 CO OFFICE/OUTPATIENT NEW MODERATE MDM 45 MINUTES Normal [facility] Insurance Correspondenceon 0 01-30-2024 Insurance Correspondence [id number]#1.00TIFF Normal [facility] Consent for Procedure/Surger yon 01-22-2024 Consent for Procedure/Surgery [id number]#1.00TIFF [facility] Physician Referralon 024 Physician Referral [id number]#1.00TIFF Normal [facility] Screenson 01-22-2024 Screens [id number]#1.00TIFF [facility] Ambulatory Visit Summaryon 0 01-21-2024 [...] [facility] [address], [place] [address]- Medications What When Instructions Unchanged amlodipine (amLODIPine [...] urine (ur (more content not included)... Normal [facility] Patient Educationon 01-21-20 Patient Education [...] Follow these instructions at home: ? Take eiik-jna-mizfote and prescription medicines only as told by [...] the medicine (more content not included)... Normal [facility] INSULINon 08-27-2021 Insulin 19.2 uIU/mL Normal 2.6-24.9 [facility] Comment on above: Performed By: #### I NSULIN #### [facility] [address] [place] [address] Dr. Forrest Lauren CBC AUTO DIFFon 08-26-2021 BASO # 0.1 103/ul Normal 0.0-0.1 [facility] Comment on above: Performed By: #### P SASC #### [facility] [address] [address] [address] Forrest Lauren Basophils/100 WBC (Bld) 0.8 % Normal 0.2-2.0 [facility] Comment on above: Performed By: #### P SASC #### [facility] [address] [address] [address] Forrest Lauren EO # 0.4 103/ul Normal 0.0-0.7 [facility] Comment on above: Performed By: #### P SASC #### [facility] [address] [address] [address] Forrest Lauren Eosinophils/100 WBC (Bld) 4.8 % Normal 0.9-7.0 [facility] Comment on above: Performed By: #### P SASC #### [facility] [address] [address] [address] Forrest Lauren Erythrocyte distribution width (RBC) [Ratio] 12.7 % Normal 11.0-15.0 [facility] Comment on above: Performed By: #### P SASC #### [facility] [address] [place] [address] Dr. Forrest Lauren Hematocrit (Bld) [Volume fraction] 48.3 % Normal 42.0-54.0 [facility] Comment on above: Performed By: #### P SASC #### [facility] [address] [place] [address] Dr. Forrest Lauren Hemoglobin (Bld) [Mass/Vol] 16.4 g/dL Normal 14.0-18.0 [facility] Comment on above: Performed By: #### P SASC #### [facility] [address] [place] [address] Dr. Forrest Lauren IG # 0.05 10e3/ul Critically high 0.00-0.03 [facility] Comment on above: Performed By: #### P SASC #### [facility] [address] [place] [address] Dr. Forrest Lauren IG % 0.6 % Critically high 0.0-0.5 [facility] Comment on above: Performed By: #### P SASC #### [facility] [address] [place] [address] Dr. Forrest Lauren LYMPH # 2.0 103/ul Normal 1.2-3.8 [facility] Comment on above: Performed By: #### P SASC #### [facility] [address] [place] [address] Dr. Forrest Lauren Lymphocytes/100 WBC (Bld) 22.6 % Normal 20.5-60.0 [facility] Comment on above: Performed By: #### P SASC #### [facility] [address] [place] [address] Dr. Forrest Lauren MANUAL DIFF REQ NO Normal [facility] Comment on above: Performed By: #### P SASC #### [facility] [address] [address] [address] Forrest Lauren MCH (RBC) [Entitic mass] 29.8 pg Normal 25.9-34.0 [facility] Comment on above: Performed By: #### P SASC #### [facility] [address] [place] [address] Dr. Forrest Lauren MCHC (RBC) [Mass/Vol] 34.0 g/dL Normal 29.9-35.2 [facility] Comment on above: Performed By: #### P SASC #### [facility] [address] [address] [address] Forrest Lauren MCV (RBC) [Entitic vol] 87.8 fL Normal 80.0-94.0 [facility] Comment on above: Performed By: #### P SASC #### [facility] [address] [place] [address] Dr. Forrest Lauren MONO # 0.7 103/ul Normal 0.3-0.8 [facility] Comment on above: Performed By: #### P SASC #### [facility] [address] [place] [address] Dr. Forrest Lauren Monocytes/100 WBC (Bld) 8.0 % Normal 1.7-12.0 [facility] Comment on above: Performed By: #### P SASC #### [facility] [address] [place] [address] Dr. Forrest Lauren NEUT # 5.7 103/ul Normal 1.4-6.5 [facility] Comment on above: Performed By: #### P SASC #### [facility] [address] [place] [address] Dr. Forrest Lauren Neutrophils/100 WBC (Bld) 63.2 % Normal 43.0-75.0 [facility] Comment on above: Performed By: #### P SASC #### [facility] [address] [place] [address] Dr. Forrest Lauren Platelet mean volume (Bld) [Entitic vol] 9.7 fL Normal 9.5-13.5 [facility] Comment on above: Performed By: #### P SASC #### [facility] [address] [address] [address] Forrest Lauren PLT 242 103/ul Normal 150-450 [facility] Comment on above: Performed By: #### P SASC #### [facility] [address] [address] [address] Forrest Lauren RBC 5.50 106/ul Normal 4.70-6.10 [facility] Comment on above: Performed By: #### P SASC #### [facility] [address] [address] [address] Forrest Lauren WBC 9.0 103/ul Normal 4.0-11.0 [facility] Comment on above: Performed By: #### P SASC #### [facility] [address] [place] [address] Dr. Forrest Lauren GLYCOHEMOGLOBIN A1Con 2021 ADA RECOMMENDATION ADA THERAPEUTIC TARGET 6.0 - 7.0 ACTION SUGGESTED > 7.0 Normal [facility] Comment on above: Performed By: #### A 1C #### [facility] [address] [place] [address] Dr. Forrest Lauren Glucose [Mass/Vol] 194 mg/dL Normal [facility] Comment on above: Performed By: #### A 1C #### [facility] [address] [place] [address] Dr. Forrest Lauren HbA1c (Bld) [Mass fraction] 8.4 % Critically high <=6.0 [facility] Comment on above: Performed By: #### A 1C #### [facility] [address] [place] [address] Dr. Forrest Lauren LIPID PROFILEon 08-26-2021 CHOL-HDL RATIO NORM SEE BELOW Normal [facility] Comment on above: Result Comment: 3.3 - 4.4 LOW RISK 4.4 - 7.1 AVERAGE RISK 7.1 - 11.0 MODERATE RISK >11.0 HIGH RISK Performed By: #### P SASC #### [facility] [address] [place] [address] Dr. Forrest Lauren Cholesterol [Mass/Vol] 117 mg/dL Normal <=200 [facility] Comment on above: Performed By: #### P SASC #### [facility] [address] [address] [address] Forrest Lauren Cholesterol in HDL [Mass/Vol] 43 mg/dL Normal [facility] Comment on above: Performed By: #### P SASC #### [facility] [address] [address] [address] Forrest Lauren Cholesterol in LDL [Mass/Vol] 45.6 mg/dL Normal [facility] Comment on above: Performed By: #### P SASC #### [facility] [address] [address] [address] Forrest Lauren Cholesterol.total /Cholesterol in HDL [Mass ratio] 2.7 {ratio} Normal [facility] Comment on above: Performed By: #### P SASC #### [facility] [address] [address] [address] Forrest Lauren HDL NORMAL > or = 60 mg/dl - LO W CARDIOVASCULAR RISK <40 mg/dl - HIGH CARDIOVASCULAR RISK Normal [facility] Comment on above: Performed By: #### P SASC #### [facility] [address] [address] [address] Forrest Lauren LDL CALC NORMAL SEE BELOW Normal [facility] Comment on above: Result Comment: <100 mg/dl OPTIMAL 100 - 129 mg/dl NEAR OR ABOVE OPTIMAL 130 - 159 mg/dl BORDERLINE HIGH 160 - 189 mg/dl HIGH >190 mg/dl VERY HIGH Performed By: #### P SASC #### [facility] [address] [address] [address] Forrest Lauren Triglyceride [Mass/Vol] 142 mg/dL Normal <=150 [facility] Comment on above: Performed By: #### P SASC #### [facility] [address] [address] [address] Forrest Lauren VLDL CALC 28.4 mg/dL Normal [facility] Comment on above: Performed By: #### P SASC #### [facility] [address] [address] [address] Forrest Lauren PROF 14(COMP METB)on 022 Albumin [Mass/Vol] 4.1 g/dL Normal 3.5-5.0 [facility] Comment on above: Performed By: #### P SASC #### [facility] [address] [place] [address] Dr. Forrest Lauren Albumin/Globulin [Mass ratio] 1.2 {ratio} Normal [facility] Comment on above: Performed By: #### P SASC #### [facility] [address] [place] [address] Dr. Forrest Lauren ALP [Catalytic activity/Vol] 82 U/L Normal 38-126 [facility] Comment on above: Performed By: #### P SASC #### [facility] [address] [place] [address] Dr. Forrest Lauren ALT [Catalytic activity/Vol] 38 U/L Normal 21-72 [facility] Comment on above: Performed By: #### P SASC #### [facility] [address] [place] [address] Dr. Forrest Lauren Anion gap [Moles/Vol] 12.7 mmol/L Normal [facility] Comment on above: Performed By: #### P SASC #### [facility] [address] [place] [address] Dr. Forrest Lauren AST [Catalytic activity/Vol] 18 U/L Normal 17-59 [facility] Comment on above: Performed By: #### P SASC #### [facility] [address] [place] [address] Dr. Forrest Lauren Bilirubin [Mass/Vol] 1.2 mg/dL Normal 0.2-1.3 [facility] Comment on above: Performed By: #### P SASC #### [facility] [address] [place] [address] Dr. Forrest Lauren Calcium [Mass/Vol] 9.7 mg/dL Normal 8.4-10.2 [facility] Comment on above: Performed By: #### P SASC #### [facility] [address] [address] [address] Forrest Lauren Chloride [Moles/Vol] 102 mmol/L Normal 98-107 [facility] Comment on above: Performed By: #### P SASC #### [facility] [address] [address] [address] Forrest Lauren CO2 [Moles/Vol] 30.6 mmol/L Critically high 22.0-30.0 [facility] Comment on above: Performed By: #### P SASC #### [facility] [address] [place] [address] Dr. Forrest Lauren Creatinine [Mass/Vol] 1.09 mg/dL Normal 0.66-1.25 [facility] Comment on above: Performed By: #### P SASC #### [facility] [address] [place] [address] Dr. Forrest Lauren EGFR-AF OMANI >60 Normal >=60 [facility] Comment on above: Performed By: #### P SASC #### [facility] [address] [place] [address] Dr. Forrest Lauren EGFR-NON AF OMANI >60 Normal >=60 [facility] Comment on above: Performed By: #### P SASC #### [facility] [address] [place] [address] Dr. Forrest Lauren Globulin (S) [Mass/Vol] 3.4 g/dL Normal [facility] Comment on above: Performed By: #### P SASC #### [facility] [address] [address] [address] Forrest Lauren Glucose [Mass/Vol] 238 mg/dL Critically high 74-106 [facility] Comment on above: Performed By: #### P SASC #### [facility] [address] [place] [address] Dr. Forrest Lauren Potassium [Moles/Vol] 4.3 mmol/L Normal 3.4-5.0 [facility] Comment on above: Performed By: #### P SASC #### [facility] [address] [place] [address] Dr. Forrest Lauren Protein [Mass/Vol] 7.5 g/dL Normal 6.1-8.2 [facility] Comment on above: Performed By: #### P SASC #### [facility] [address] [place] [address] Dr. Forrest Lauren Sodium [Moles/Vol] 141 mmol/L Normal 137-145 [facility] Comment on above: Performed By: #### P SASC #### [facility] [address] [place] [address] Dr. Forrest Lauren Urea nitrogen [Mass/Vol] 20.0 mg/dL Normal 9.0-20.0 [facility] Comment on above: Performed By: #### P SASC #### [facility] [address] [place] [address] Dr. Forrest Lauren Urea nitrogen/Creatini ne [Mass ratio] 18.3 mg/mg Normal [facility] Comment on above: Performed By: #### P SASC #### [facility] [address] [place] [address] Dr. Forrest Lauren URIC ACID SERUMon 08-26-2021 Urate [Mass/Vol] 4.8 mg/dL Normal 3.5-8.5 [facility] Comment on above: Performed By: #### P SASC #### [facility] [address] [place] [address] Dr. Forrest Lauren Covid-19 PCR ([facility])on Sample Type Test performed using RT-PCR from a nasopharyngeal collected specimen. Normal [facility] Comment on above: Performed By: #### P SASC #### [facility] [address] [place] [address] Dr. Forrest Lauren SARS-CoV-2 (COVID-19) RNA MERA+probe Ql (Unsp spec) Detected Abnormal NOT DETECTED [facility] Comment on above: Result Comment: This test is not yet approved or cleared by the [place] FDA. When there are no FDA-approved or cleared tests available, and other criteria are met, FDA can make tests available under an emergency access mechanism called an Emergency Use Authorization (EUA). The EUA for this test is supported by the Rooms Director of Health and Human Service's (HHS's) declaration [...] used). Performed By: #### P SASC #### [facility] [address] [place] [address] Dr. Forrest Lauren POINT OF CARE GLUCOSEon 05-0 Glucose [Mass/Vol] 255 mg/dL Critically high 74-106 [facility] Comment on above: Performed By: #### P OCGLUC #### [facility] [address] [place] [address] Matias Rodasen XR CHEST 1 Von 12-07-2020 XR CHEST [...] AMARIS WALKER Date: 2020-12-06 22:04 Normal [facility] INSULINon 10-02-2020 Insulin 16.9 uIU/mL Normal 2.6-24.9 [facility] Comment on above: Performed By: #### P SASC #### [facility] [address] [place] [address] Dr. Forrest Lauren CBC AUTO DIFFon 10-01-2020 BASO # 0.1 103/ul Normal 0.0-0.1 [facility] Comment on above: Performed By: #### C BC #### [facility] [address] [place] [address] Matias Rivas Basophils/100 WBC (Bld) 0.6 % Normal 0.2-2.0 [facility] Comment on above: Performed By: #### C BC #### [facility] [address] [place] [address] Matias Evelyn EO # 0.4 103/ul Normal 0.0-0.7 [facility] Comment on above: Performed By: #### C BC #### [facility] [address] [place] [address] Matias Evelyn Eosinophils/100 WBC (Bld) 4.2 % Normal 0.9-7.0 [facility] Comment on above: Performed By: #### C BC #### [facility] [address] [place] [address] Matias Evelyn Erythrocyte distribution width (RBC) [Ratio] 13.1 % Normal 11.0-15.0 [facility] Comment on above: Performed By: #### C BC #### [facility] [address] [place] [address] Matias Evelyn Hematocrit (Bld) [Volume fraction] 50.2 % Normal 42.0-54.0 [facility] Comment on above: Performed By: #### C BC #### [facility] [address] [place] [address] Matias Evelyn Hemoglobin (Bld) [Mass/Vol] 16.6 g/dL Normal 14.0-18.0 [facility] Comment on above: Performed By: #### C BC #### [facility] [address] [place] [address] Matias Evelyn IG # 0.05 10e3/ul Critically high 0.00-0.03 [facility] Comment on above: Performed By: #### C BC #### [facility] [address] [place] [address] Matias Evelyn IG % 0.6 % Critically high 0.0-0.5 [facility] Comment on above: Performed By: #### C BC #### [facility] [address] [place] [address] Matias Evelyn LYMPH # 1.9 103/ul Normal 1.2-3.8 [facility] Comment on above: Performed By: #### C BC #### [facility] [address] [place], [place] [id number] Matias Evelyn Lymphocytes/100 WBC (Bld) 22.2 % Normal 20.5-60.0 [facility] Comment on above: Performed By: #### C BC #### [facility] [address] [place], [place] [id number] Matias Rivas MANUAL DIFF REQ NO Normal [facility] Comment on above: Performed By: #### C BC #### [facility] [address] [place], [place] [id number] Matiaswali Rivas MCH (RBC) [Entitic mass] 29.4 pg Normal 25.9-34.0 [facility] Comment on above: Performed By: #### C BC #### [facility] [address] [place] [address] Matiaswali Rivas MCHC (RBC) [Mass/Vol] 33.1 g/dL Normal 29.9-35.2 [facility] Comment on above: Performed By: #### C BC #### [facility] [address] [place] [address] Matiaswali Rivas MCV (RBC) [Entitic vol] 88.8 fL Normal 80.0-94.0 [facility] Comment on above: Performed By: #### C BC #### [facility] [address] [place], [place] [id number] Matias Evelyn MONO # 0.7 103/ul Normal 0.3-0.8 [facility] Comment on above: Performed By: #### C BC #### [facility] [address] [place] [address] Matiaswali Rodasen Monocytes/100 WBC (Bld) 7.7 % Normal 1.7-12.0 [facility] Comment on above: Performed By: #### C BC #### [facility] [address] [place], [place] [id number] Matias Evelyn NEUT # 5.7 103/ul Normal 1.4-6.5 [facility] Comment on above: Performed By: #### C BC #### [facility] [address] [place], [place] [id number] Matias Evelyn Neutrophils/100 WBC (Bld) 64.7 % Normal 43.0-75.0 [facility] Comment on above: Performed By: #### C BC #### [facility] [address] [place], [place] [id number] Matias Rivas Platelet mean volume (Bld) [Entitic vol] 10.4 fL Normal 9.5-13.5 [facility] Comment on above: Performed By: #### C BC #### [facility] [address] [place] [address] Matias Rivas PLT 243 103/ul Normal 150-450 [facility] Comment on above: Performed By: #### C BC #### [facility] [address] [place] [address] Matiaswali Rivas RBC 5.65 106/ul Normal 4.70-6.10 [facility] Comment on above: Performed By: #### C BC #### [facility] [address] [place] [address] Matias Rivas WBC 8.7 103/ul Normal 4.0-11.0 [facility] Comment on above: Performed By: #### C BC #### [facility] [address] [place], [place] [id number] Matias Rivas FREE THYROXINE INDEX T7on FTI 2.11 Normal [facility] Comment on above: Performed By: #### U TARIK, CMP, T7, PSASC, TSH, LIPID #### [facility] [address] [place] [address] Matias Rivas T3U 34.0 % Normal 23.5-40.5 [facility] Comment on above: Performed By: #### U TARIK, CMP, T7, PSASC, TSH, LIPID #### [facility] [address] [place], [place] [id number] Matias Rivas T4 [Mass/Vol] 6.20 ug/dL Normal 5.53-11.00 [facility] Comment on above: Performed By: #### U TARIK, CMP, T7, PSASC, TSH, LIPID #### [facility] [address] [place] [address] Matias Rivas GLYCOHEMOGLOBIN A1Con 2020 ADA RECOMMENDATION ADA THERAPEUTIC TARGET 6.0 - 7.0 ACTION SUGGESTED > 7.0 Normal [facility] Comment on above: Performed By: #### A 1C #### [facility] [address] [place] [address] Matias Rivas Glucose [Mass/Vol] 266 mg/dL Normal [facility] Comment on above: Performed By: #### A 1C #### [facility] [address] [place] [address] Matias Rivas HbA1c (Bld) [Mass fraction] 10.9 % Critically high <=6.0 [facility] Comment on above: Performed By: #### A 1C #### [facility] [address] [place] [address] Matias Rivas LIPID PROFILEon 10-01-2020 CHOL-HDL RATIO NORM SEE BELOW Normal [facility] Comment on above: Result Comment: 3.3 - 4.4 LOW RISK 4.4 - 7.1 AVERAGE RISK 7.1 - 11.0 MODERATE RISK >11.0 HIGH RISK Performed By: #### P SASC #### [facility] [address] [place] [address] Dr. Forrest Lauren Cholesterol [Mass/Vol] 110 mg/dL Normal <=200 [facility] Comment on above: Performed By: #### P SASC #### [facility] [address] [place] [address] Dr. Forrest Lauren Cholesterol in HDL [Mass/Vol] 36 mg/dL Normal [facility] Comment on above: Performed By: #### P SASC #### [facility] [address] [place] [address] Dr. Forrest Lauren Cholesterol in LDL [Mass/Vol] 36.2 mg/dL Normal [facility] Comment on above: Performed By: #### P SASC #### [facility] [address] [place] [address] Dr. Forrest Lauren Cholesterol.total /Cholesterol in HDL [Mass ratio] 3.1 {ratio} Normal [facility] Comment on above: Performed By: #### P SASC #### [facility] [address] [address] [address] Forrest Lauren HDL NORMAL > or = 60 mg/dl - LO W CARDIOVASCULAR RISK <40 mg/dl - HIGH CARDIOVASCULAR RISK Normal [facility] Comment on above: Performed By: #### P SASC #### [facility] [address] [address] [address] Forrest Lauren LDL CALC NORMAL SEE BELOW Normal [facility] Comment on above: Result Comment: <100 mg/dl OPTIMAL 100 - 129 mg/dl NEAR OR ABOVE OPTIMAL 130 - 159 mg/dl BORDERLINE HIGH 160 - 189 mg/dl HIGH >190 mg/dl VERY HIGH Performed By: #### P SASC #### [facility] [address] [address] [address] Forrest Lauren Triglyceride [Mass/Vol] 189 mg/dL Critically high <=150 [facility] Comment on above: Performed By: #### P SASC #### [facility] [address] [address] [address] Forrest Lauren VLDL CALC 37.8 mg/dL Normal [facility] Comment on above: Performed By: #### P SASC #### [facility] [address] [address] [address] Forrest Lauren PROF 14(COMP METB)on 021 Albumin [Mass/Vol] 4.1 g/dL Normal 3.5-5.0 [facility] Comment on above: Performed By: #### U TARIK, CMP, T7, PSASC, TSH, LIPID #### [facility] [address] [place] [address] Matias Rivas Albumin/Globulin [Mass ratio] 1.2 {ratio} Normal [facility] Comment on above: Performed By: #### U TARIK, CMP, T7, PSASC, TSH, LIPID #### [facility] [address] [address] Matias Rivas ALP [Catalytic activity/Vol] 80 U/L Normal 38-126 [facility] Comment on above: Performed By: #### U TARIK, CMP, T7, PSASC, TSH, LIPID #### [facility] [address] [address] Matias Evelyn ALT [Catalytic activity/Vol] 42 U/L Normal 21-72 [facility] Comment on above: Performed By: #### U TARIK, CMP, T7, PSASC, TSH, LIPID #### [facility] [address] [place] [address] Matias Evelyn Anion gap [Moles/Vol] 12.3 mmol/L Normal [facility] Comment on above: Performed By: #### U TARIK, CMP, T7, PSASC, TSH, LIPID #### [facility] [address] [place] [address] Matias Evelyn AST [Catalytic activity/Vol] 24 U/L Normal 17-59 [facility] Comment on above: Performed By: #### U TARIK, CMP, T7, PSASC, TSH, LIPID #### [facility] [address] [place] [address] Matias Evelyn Bilirubin [Mass/Vol] 1.3 mg/dL Normal 0.2-1.3 [facility] Comment on above: Performed By: #### U TARIK, CMP, T7, PSASC, TSH, LIPID #### [facility] [address] [place] [address] Matias Evelyn Calcium [Mass/Vol] 9.3 mg/dL Normal 8.4-10.2 [facility] Comment on above: Performed By: #### U TARIK, CMP, T7, PSASC, TSH, LIPID #### [facility] [address] [place] [address] Matias Evelyn Chloride [Moles/Vol] 103 mmol/L Normal 98-107 [facility] Comment on above: Performed By: #### U TARIK, CMP, T7, PSASC, TSH, LIPID #### [facility] [address] [place] [address] Matias Evelyn CO2 [Moles/Vol] 30.0 mmol/L Normal 22.0-30.0 [facility] Comment on above: Performed By: #### U TARIK, CMP, T7, PSASC, TSH, LIPID #### [facility] [address] [place] [address] Matias Evelyn Creatinine [Mass/Vol] 1.20 mg/dL Normal 0.66-1.25 [facility] Comment on above: Performed By: #### U TARIK, CMP, T7, PSASC, TSH, LIPID #### [facility] [address] [address] Matias Evelyn EGFR-AF OMANI >60 Normal >=60 [facility] Comment on above: Performed By: #### U TARIK, CMP, T7, PSASC, TSH, LIPID #### [facility] [address] [address] Matias Evelyn EGFR-NON AF OMANI >60 Normal >=60 [facility] Comment on above: Performed By: #### U TARIK, CMP, T7, PSASC, TSH, LIPID #### [facility] [address] [address] Matias Evelyn Globulin (S) [Mass/Vol] 3.5 g/dL Normal [facility] Comment on above: Performed By: #### U TARIK, CMP, T7, PSASC, TSH, LIPID #### [facility] [address] [address] Matias Evelyn Glucose [Mass/Vol] 269 mg/dL Critically high 74-106 [facility] Comment on above: Performed By: #### U TARIK, CMP, T7, PSASC, TSH, LIPID #### [facility] [address] [address] Matias Evelyn Potassium [Moles/Vol] 4.3 mmol/L Normal 3.4-5.0 [facility] Comment on above: Performed By: #### U TARIK, CMP, T7, PSASC, TSH, LIPID #### [facility] [address] [address] Matias Evelyn Protein [Mass/Vol] 7.6 g/dL Normal 6.1-8.2 [facility] Comment on above: Performed By: #### U TARIK, CMP, T7, PSASC, TSH, LIPID #### [facility] [address] [address] Matias Evelyn Sodium [Moles/Vol] 141 mmol/L Normal 137-145 [facility] Comment on above: Performed By: #### U TARIK, CMP, T7, PSASC, TSH, LIPID #### [facility] [address] [address] Matias Evelyn Urea nitrogen [Mass/Vol] 17.0 mg/dL Normal 9.0-20.0 [facility] Comment on above: Performed By: #### U TARIK, CMP, T7, PSASC, TSH, LIPID #### [facility] [address] [address] Matias Evelyn Urea nitrogen/Creatini ne [Mass ratio] 14.2 mg/mg Normal [facility] Comment on above: Performed By: #### U TARIK, CMP, T7, PSASC, TSH, LIPID #### [facility] [address] [place] [address] Matias Rivas TSHon 10-01-2020 TSH 1.574 uIU/mL Normal 0.470-4.68 0 [facility] Comment on above: Performed By: #### P SASC #### [facility] [address] [place] [address] Dr. Forrest Lauren TSH RANGE SEE BELOW Normal [facility] Comment on above: Result Comment: <0.3 4 UIU/ml HYPERTHYROID 0.34-5.60 UIU/ml EUTHYROID >5.60 UIU/ml HYPOTHYROID Performed By: #### P SASC #### [facility] [address] [place] [address] Dr. Forrest Lauren URIC ACID SERUMon 10-01-2020 Urate [Mass/Vol] 4.8 mg/dL Normal 3.5-8.5 [facility] Comment on above: Performed By: #### P SASC #### [facility] [address] [place] [address] Dr. Forrest Lauren Cardiovascular Lab Reporton 08-03-2017 Cardiovascular Lab Report [facility] Patient Name: Irene [facility] MR #: [id number] Physician: Jerod Miller M.D.Medicine Service Date: 12/28/2017Division of Birthdate: 1955ardiology Room #: [facility] [place], [place] [address]Rxicn Fax Cardiovascular Laboratory ReportINDICATION: Hoang Tran is [...] the right internal jugular vein and a 6-Japanese x 11cm sheath was placed. A 6-Japanese Griffith catheter was used for right heartcatheterization with measurement of pressures and calculation of cardiacoutput using the estimated Luke method. Griffith catheter was removed.Using ultrasound guidance and micropuncture technique, access was obtainedin the left radial artery and a 6-Japanese x 11 cm Hydrophilic sheath wasadvanced. Verapamil [...] 08/02/2017/02:42 P/Jerod Manuel M.D.Date Trans: 08/03/2017 11:29 [id number]: Yfn Mata D.O. [address] [place] [address] Vital Signs Date Time Vital Sign Value Performing Clinician Jose fairchild 01-21-2024 11:44-0400 Blood Pressure Location Moody POP [facility] 01-21-2024 11:44-0400 Diastolic blood pressure 72 mm[Hg] Moody POP [facility] 01-21-2024 11:44-0400 Heart rate 70 /min Moody POP [facility] 01-21-2024 11:44-0400 Respiratory rate 16 /min [facility] 01-21-2024 11:44-4837 Systolic blood pressure 108 mm[Hg] Moody DONN [facility] Encounters Encounter Date Encounter Type Care Provider Facility Start: 06-09-2024 ambulatory Moody POP Facili ty:[facility] Start: 06-03-2024 [facility]: 06-03-[facility]24 ambulatory Jassi R NILL Facility : [facility] Start: 04-30-2024 End: 04-30-2024 ambulatory Jassi R NILL Facility: [facility] Start: 04-30-2024 End: 04-30-2024 Patient encounter procedure Jassi R NILL [facility] [place] Start: 04-28-2024 ambulatory Jassi NILL Facility:[facility] Start: 04-23-2024 End: 04-23-2024 ambulatory DO González Kuns Work Phone: [facility] Work Phone: Start: 04-23-2024 End: 04-23-2024 Departed Referred DO González Kuns Work Phone: [facility] [place] [facility] Start: 04-23-2024 ambulatory Jassi NILL Facility:[facility] Johnson Start: 04-22-2024 End: 04-23-2024 ambulatory Jassi R NILL Facility:[id number] Start: 04-11-2024 End: 04-11-2024 ambulatory DO González Kuns Work Phone: [facility] Work Phone: Start: 04-11-2024 End: 04-11-2024 Departed Referred DO González Kuns Work Phone: [facility] [place] [facility] Start: 03-28-2024 End: 03-28-2024 ambulatory [facility] Start: 02-25-2024 End: 02-25-2024 ambulatory [facility] Start: 02-11-2024 End: 02-11-2024 ambulatory Moody POP Facility:[id number] Start: 01-21-2024 End: 01-21-2024 ambulatory AILIN Jhonatan PETER Facility:[facility] Start: 01-21-2024 End: 01-21-2024 Patient encounter procedure Moody POP [facility] Start: 09-12-2023 ambulatory Jassi CLEMENS Facility:[facility] Start: 08-26-2021 End: 08-26-2021 ambulatory AILIN BAKER Facility:[facility] Start: 02-23-2021 ambulatory AILIN BAKER Facility:[facility] Start: 12-06-2020 End: 12-07-2020 ambulatory ILAN TODD Facility:[facility] Start: 10-07-2020 Encounter for genera l adult medical examination without abnormal findings AILIN BAKER [facility] Start: 10-01-2020 End: 10-02-2020 ambulatory AILIN BAKER Facility:[facility] Start: 10-01-2020 End: 10-02-2020 Encounter for general adult medical examination without abnormal findings AILIN BAKER Facility:[facility] Start: 2017 End: 08-03-2017 Ambulatory PROVIDER UNKNOWN Facility:[facility] Start: 07-24-2017 End: 07-25-2017 Ambulatory DEFAULT PHYSICIAN Facility:[facility] Start: 07-19-2017 End: 07-20-2017 Ambulatory DEFAULT PHYSICIAN Facility:[facility] Start: 06-18-2017 End: 06-19-2017 Ambulatory DEFAULT PHYSICIAN Facility:[facility] Procedures Date Procedure Procedure Detail Performing Clinician Start: 04-23-2024 Incisional biopsy Sudhir CLEMENS Start: 08-26-2021 PSA screening AILIN KHAN Comment on above: Performed By: #### P SAS #### [facility] [address] [place] [address] Dr. Forrest Lauren Start: 10-01-2020 PSA screening AILIN KHAN Comment on above: Performed By: #### U TARIK, CMP, T7, PSASC, TSH, LIPID #### [facility] [address] [place] [address] Matias Rivas Start: 08-06-2013 Colonoscopy Moody ASHER Start: 08-06-2004 Neoplasm of brain (disorder) Moody POP Back structure, excl uding neck (body structure) Moody POP Removal of acoustic neuroma Jassi AIRAM Spinal arthrodesis Jassi INFANTE Tonsillectomy [facility] POP Payers Date Payer Category Payer Medicare [id number] 1958 [facility] [id number] 1958 Medicare [id number] 1958 Self-pay 1955 Unknown [id number]. 593 1955 Unknown [id number] [id number]. 593 1956 Unknown [id number] .[id number]. 593 1956 Unknown [id number] 2.16.840.1.546705.3.579.2. 593 1956 Unknown [id number] 2.16.840.1.270800.3.579.2. 727 1956 Unknown [id number] 2.16.840.1.989911.3.579.2. 727 1956 Unknown [id number] 2.16.840.1.655726.3.579.2. 727 1956 Unknown [id number] 2.16.840.1.342653.3.579.2. 727 1956 Unknown [id number] 2.16.840.1.795314.3.579.2. 727 1956 Unknown [id number] 2.16.840.1.626034.3.579.2. 727 1956 Unknown [id number] 2.16.840.1.247759.3.579.2. 727 Private Health Insurance [facility] [id number] Unknown Unknown Bruce BC/BS [id number] Unknown [id number] [id number]. 531 Unknown [id number] [id number]. 531 Social History Date Type Detail Facility Start: 01-21-2024 End: 04-30-2024 Tobacco smoking status Never smoked tobacco (finding) [facility] Tobacco smoking status Never [facility] Sex Assigned At Male [facility] Start: 1955 Sex Assigned At Male F [facility] Functional Status Date Assessment Result Facility 04-30-2024 Functional Status N/A [facility] [place] 01-21-2024 Functional Status N/A [facility] Progress note 03-28-2024 Note Date & Type Note Facility 03-28-2024 Note [facility] Subjective Hoang Tran is a [...] HDL 42. TSH (more content not included)... [facility] Progress note 02-25-2024 Note Date & Type Note Facility 02-25-2024 Note [facility] Subjective Hoang Tran is a [...] platelets 256, potassium (more content not included)... [facility] Clinical Note 01-21-2024 Note Date & [...] order Local anesthesia. Prophylactic abx sent to [facility]. 2. OAB (overactive bladder) (N32.81: Overactive bladder) [...] neoplasm of prostat (more content not included)... [facility] [place] [facility] Comment on above: Result Comment: [...] urethra. Follow these instructions at home: Take vhwp-[id number]-gkleweg and prescription medicines only as told by [...] provider. Document Revised: 02/08/2022 Document Reviewed: 02/08/2022 [employer] Patient Education 20[employer]. Follow Up Care 09/13/2023 09:26:56 With:DONN ELLIS, Moody Aranda, URL Address: [facility] [address] [place] [address]- When: Unknown [facility] Evaluation + Plan note Note Date & Type Note Facility Evaluation + Plan note No data available for this section [facility] Evaluation + Plan note Note Date & Type Note Facility Evaluation + Plan note Future Appointments Appointment Date:06/09/2024 10:45:00 AM Scheduled Provider:Moody POP MD Location:[facility] Appointment Type:URO Office Visit [facility] Evaluation note Note Date & Type Note Facility Evaluation note No assessment information availa [facility] Work Phone: Hospital Discharge instructions Note Date & Type Note Facility Hospital Discharge instructions No data available for this section [facility] Progress note Note Date & Type Note Facility Progress note No data available for this section [facility] Summary Purpose Family History No Family [...] and content) DATE CREATED AUTHOR 01/29/2018 [facility] DATE CREATED AUTHOR AUTHOR'S ORGANIZ ATION 09/01/2021 [facility] DATE CREATED AUTHOR AUTHOR'S ORGANIZ ATION 03/30/2024 [facility] DATE CREATED AUTHOR AUTHOR'S ORGANIZ ATION 05/16/2024 [facility] DATE CREATED AUTHOR AUTHOR'S ORGANIZ ATION 05/22/2024 [facility] Patient Care team informatio n (unrecognized [...] Member Role Status Dates Jassi Clemens MD [facility] Attending Provider Active Start: April 23, 2024 [...] BE BASED ON THE PRIMARY CLINICAL RECORDS. [facility] [employer] [facility]. provides no warranty or guarantee of the accuracy or completeness of information in this document.
== END 2024-05-23 08:59 | disposition home or self-care (01) ==
LOC: CARD 08:58
PROVIDERS: PCP Nurse Practitioner Family; Visit Provider Internal Medicine Hematology & Oncology
DX: Z51.11 Encounter for antineoplastic chemotherapy (principal); C85.11 Unspecified B-cell lymphoma, lymph nodes of head, face, and neck; R74.01 Elevation of levels of liver transaminase levels; D64.9 Anemia, unspecified; D50.9 Iron deficiency anemia, unspecified; C81.18 Nodular sclerosis Hodgkin lymphoma, lymph nodes of multiple sites; R11.2 Nausea with vomiting, unspecified
CPT/HCPCS: 93306; 93356

== ENCOUNTER 2024-05-26 09:08 | Outpatient (OUT) | payer MEDICARE, SELFPAY ==
--- OUTSIDE RECORDS SUMMARY | 2024-05-26 09:26 | XMS_ITS | CCD ---
Author Organization [facility] Care Team Providers Care Dermatological Surgeon Name Role Phone PHYSICIAN, DEFAULT Unavailable Unavailable [...] Unavailable DO González Moon Primary Care Provider [phone] MD Hoang Strange Attending Provider [phone] MD Jassi Clemens Attending Provider Jassi Clemens [...] Propensity to adverse reactions (disorder) 7 [facility] (1 source) empagliflozin; 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: [EMPAGLIFLOZIN] Drug Allergy 4 [facility] (1 source) No Known Medication Allergies; 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: [No Known Medication Allergies] Propensity to adverse reactions (disorder) [facility] Repository Medications Current Medications Medication [...] day(s), # 90 cap(s), Refills(s) 3, Pharmacy: [facility] Delivery, 187, cm, 01/21/24 11:48:00 EDT, Height/Length [...] completed, # 2 tab(s), Refills(s) 0, Pharmacy: [facility], 187, cm, 01/21/24 11:48:00 EDT, [...] / UNK(Unknown) Onset: 2017 Unclassified (1 source) 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; 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: [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 Normal [facility] General Surgery Office/Clini c Noteon 09-25-2024 General Surgery Office/Clinic Note General Surgery Office/Clinic Note Chief Complaint post operative follow up HPI Staff 7 day post operative follow up post incisional biopsy right axilla adenopathy completed while inpatient at [facility]. Denies soreness, bleeding or drainage. History [...] 04/30/2024 Family History Heart disease: Mother. Normal [facility] Comment on above: Result Comment: Elec tronically Signed By: AIRAM ELLIS, Jassi Aranda\.br\Date and Time Signed: 04/30/24 14:51 EDT Robert 04-23-2024 L Specimen: [id number] R eceived: 04/23/24-1322 [facility] [id number] Spec Type: Surgical Subm Dr: Jassi Clemens MD FACS Tissues: A Lymph Node - Biopsy (Needle or Incisional) (R AXILLARY LYMPH NODE BX) Procedures: CD45/2, HE/4, Gross/Micro L4, AE1-AE3, BCL-2, BCL-6, CD10, CD20, CD23, CD3, CD30/2, CD5, PAX5/2 Age/ Patient Sex Location Account Attending Physician Hoang Tran 68/M LABELL [id number] Jassi Clemens MD FACS SPEC NUM: [id number] RECD: 04/23/24 STATUS: MERNA RIVERA NUM: [id number] RANJITH: 04/23/[address] [facility] [address]: Jassi Clemens MD FACS ENTERED: 04/23/[address]: SPEC TYPE: Surgical DEPT: LUANA MOYER ENTERED BY: [id number] RECV BY: [id number] ORDERED: CD45/2, HE/4, Gross/Micro L4, AE1-AE3, BCL-2, BCL-6, CD10, CD20, CD23, CD3, CD30/2, CD5, PAX5/2 ORDERED: CD45/2, HE/4, Gross/Micro L4, AE1-AE3, BCL-2, BCL-6, CD10, CD20, CD23, CD3, CD30/2, CD5, PAX5/2, USS/7 Supplemental Report Addendum 3 Entered: 05/15/24-1014 Supplemental for addended consultation report from [facility] Addendum -Repeat MUM1 immunostain does in fact stain the focal large atypical cells -No change in final diagnosis Addendum Signed (signature on file) Kin-Gama Lauren MD 05/15/24 1014 Addendum 2 Entered: 05/14/249556 Supplemental for findings of consultation report from [facility]: -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 Specimen: [id number] Received: 04/23/24 Status: MERNA Rivera Num: [id number] Spec Type: Surgical Subm Dr: Jassi Clemens MD FACS Tissues: A Lymph Node - Biopsy (Needle or Incisional) (R AXILLARY LYMPH NODE BX) Procedures: CD45/2, HE/4, Gross/Micro L4, AE1-AE3, BCL-2, BCL-6, CD10, CD20, CD23, CD3, CD30/2, CD5, PAX5/2 Patient: Hoang Tran [id number] (Continued) Specimen: [id number] Received: 04/23/24 (Continued) Supplemental Report (Continued) Signed (signature on file) Sandra Lauren MD 05/01/24 1651 Specimen: [id number] Received: 04/23/24 Status: MERNA Rivera Num: [id number] Spec Type: Surgical Subm Dr: Jassi Clemens MD FACS Tissues: A Lymph Node - Biopsy (Needle or Incisional) (R AXILLARY LYMPH NODE BX) Procedures: CD45/2, HE/4, Gross/Micro L4, AE1-AE3, BCL-2, BCL-6, CD10, CD20, CD23, CD3, CD30/2, CD5, PAX5/2 Patient: Hoang Tran [id number] (Continued) Specimen: [id number] Received: 04/23/24 (Continued) Supplemental Report (Continued) lymphocytes -See comment Addendum Signed (signature on file) Trinity Lauren MD 05/14/24 1437 Addendum 1 Entered: 05/07/24 Supplemental [facility] of [facility] -No significant lymphoid immunophenotypic abnormalities detected [...] contributory. -The concurrent flow cytometry study from [facility] is no significant lymphoid (more content not included)... Normal [facility] Robert 04-11-2024 L Specimen: [id number] R eceived: 04/14/24 Status: MERNA [facility] Num: [id number] Spec Type: Surgical Subm Dr: Hoang Strange MD Tissues: A Lymph Node - Biopsy (Needle or Incisional) (R AXILLA LYMPH NODE) B Gross Only (LYMPH NODE) Procedures: HE/2, Gross/Micro L4, Level 1 Gross Age/ Patient Sex Location Account Attending Physician Hoang Tran 68/M LABELL [id number] Hoang Strange MD SPEC NUM: [id number] RECD: 04/14/24 STATUS: MERNA REQ NUM: [id number] RANJITH: 04/11/24- DR: Hoang Strange MD ENTERED: 04/14/24 [facility] DR: Mark,Lab SPEC TYPE: Surgical DEPT: LUANA MOYER ENTERED BY: [id number] RECV BY: [id number] ORDERED: HE/2, Gross/Micro L4, Level 1 Gross ORDERED: HE/2, Gross/Micro L4, Level 1 Gross Supplemental Report Addendum 2 Entered: 04/21/24 Supplemental for findings of consultation report from [facility]: A, -Extremity limited specimen compatible with malignancy, see comment Addendum Signed (signature on file) Trinity Lauren MD 04/21/248 Addendum 1 Entered: 04/18/243746 Supplemental for findings of flow cytometry report from [facility]: -Tests canceled -This test is canceled due to poor sample quality / poor viability Specimen: [id number] Received: 04/14/24 Status: MERNA Reradha Num: [id number] Spec Type: Surgical Subm Dr: Hoang Strange MD Tissues: A Lymph Node - Biopsy (Needle or Incisional) (R AXILLA LYMPH NODE) B Gross Only (LYMPH NODE) Procedures: HE/2, Gross/Micro L4, Level 1 Gross Patient: Hoang Tran [id number] (Continued) Specimen: [id number] Received: 04/14/24 (Continued) Supplemental Report (Continued) Signed (signature on file) Trinity Lauren MD 04/17/24 1127 Specimen: [id number] Received: 04/14/24 Status: MERNA Rivera Num: [id number] Spec Type: Surgical Subm Dr: Hoang Strange MD Tissues: A Lymph Node - Biopsy (Needle or Incisional) (R AXILLA LYMPH NODE) B Gross Only (LYMPH NODE) Procedures: HE/2, Gross/Micro L4, Level 1 Gross Patient: Hoang Tran [id number] (Continued) Specimen: [id number] Received: 04/14/24-1044 (Continued) Supplemental Report (Continued) Addendum [...] sent to an outside facility. DM Specimen: [id number] Received: 04/14/24 Status: MERNA Rivera Num: [id number] Spec Type: Surgical Subm Dr: Hoang Strange MD Tissues: A Lymph Node - Biopsy (Needle or Incisio (more content not included)... Normal [facility] Office Visiton 03-28-2024 Follow-up visit [id number] Allen Tran W 1955 [facility] Provider Department Center 03/28/2024 JEROD BANKS Family History Problem Relation Age of Onset Coronary artery disease Mother Family Status - Relation Status Age at Mother Level of Service:58453 MA OFFICE/OUTPATIENT ESTABLISHED MOD MDM 30 MIN Normal [facility] Office Visiton 02-25-2024 Follow-up visit [id number] Allen Tran W 1955 M Date Provider Department Center 02/25/2024 JEROD BANKS Family History Problem Relation Age of Onset Coronary artery disease Mother Family Status - Relation Status Age at Mother Level of Service:19044 MA OFFICE/OUTPATIENT NEW MODERATE MDM 45 MINUTES Normal [facility] Insurance Correspondenceon 0 01-30-2024 Insurance Correspondence [id number]#1.00TIFF Normal [facility] Consent for Procedure/Surger yon 01-22-2024 Consent for Procedure/Surgery [id number]#1.00TIFF [facility] Physician Referralon 024 Physician Referral [id number]#1.00TIFF Normal [facility] Screenson 01-22-2024 Screens [id number]#1.00TIFF [facility] Ambulatory Visit Summaryon 0 01-21-2024 Ambulatory Visit [...] Following Appointments Follow Up with DONN ELLIS, Modoy Aranda, URL When: Where: [facility] [address], [place] [address]- Medications What When Instructions Unchanged amlodipine (amLODIPine [...] urine (ur (more content not included)... Normal [facility] Patient Educationon 01-21-20 Patient Education [...] Follow these instructions at home: ? Take vukv-shn-wisacbr and prescription medicines only as told by [...] the medicine (more content not included)... Normal [facility] INSULINon 08-27-2021 Insulin 19.2 uIU/mL Normal 2.6-24.[address] [facility] Comment on above: Performed By: #### I NSULIN #### [facility] [address] [place] [address] Dr. Forrest Lauren CBC AUTO DIFFon 08-26-2021 BASO # 0.1 103/ul Normal 0.0-0.[address] [facility] Comment on above: Performed By: #### P SASC #### [facility] [address] [address] [address] Forrest Lauren Basophils/100 WBC (Bld) 0.8 % Normal 0.2-2.0 [facility] Comment on above: Performed By: #### P SASC #### [facility] [address] [address] [address] Forrest Lauren EO # 0.4 103/ul Normal 0.0-0.[address] [facility] Comment on above: Performed By: #### P SASC #### [facility] [address] [address] [address] Forrest Lauren Eosinophils/100 WBC (Bld) 4.8 % Normal 0.9-7.[address] [facility] Comment on above: Performed By: #### P SASC #### [facility] [address] [address] [address] Forrest Lauren Erythrocyte distribution width (RBC) [Ratio] 12.7 % Normal 11.0-15.[address] [facility] Comment on above: Performed By: #### P SASC #### [facility] [address] [place] [address] Dr. Forrest Lauren Hematocrit (Bld) [Volume fraction] 48.3 % Normal 42.0-54.[address] [facility] Comment on above: Performed By: #### P SASC #### [facility] [address] [place] [address] Dr. Forrest Lauren Hemoglobin (Bld) [Mass/Vol] 16.4 g/dL Normal 14.0-18.[address] [facility] Comment on above: Performed By: #### P SASC #### [facility] [address] [place] [address] Dr. Forrest Lauren IG # 0.05 10e3/ul Critically high 0.00-0.[address] [facility] Comment on above: Performed By: #### P SASC #### [facility] [address] [place] [address] Dr. Forrest Lauren IG % 0.6 % Critically high 0.0-0.[address] [facility] Comment on above: Performed By: #### P SASC #### [facility] [address] [place] [address] Dr. Forrest Lauren LYMPH # 2.0 103/ul Normal 1.2-3.[address] [facility] Comment on above: Performed By: #### P SASC #### [facility] [address] [place] [address] Dr. Forrest Lauren Lymphocytes/100 WBC (Bld) 22.6 % Normal 20.5-60.[address] [facility] Comment on above: Performed By: #### P SASC #### [facility] [address] [place] [address] Dr. Forrest Lauren MANUAL DIFF REQ NO Normal [facility] Comment on above: Performed By: #### P SASC #### [facility] [address] [address] [address] Forrest Lauren MCH (RBC) [Entitic mass] 29.8 pg Normal 25.9-34.[address] [facility] Comment on above: Performed By: #### P SASC #### [facility] [address] [place] [address] Dr. Forrest Lauren MCHC (RBC) [Mass/Vol] 34.0 g/dL Normal 29.9-35.[address] [facility] Comment on above: Performed By: #### P SASC #### [facility] [address] [address] [address] Forrest Lauren MCV (RBC) [Entitic vol] 87.8 fL Normal 80.0-94.0 [facility] Comment on above: Performed By: #### P SASC #### [facility] [address] [place] [address] Dr. Forrest Lauren MONO # 0.7 103/ul Normal 0.3-0.[address] [facility] Comment on above: Performed By: #### P SASC #### [facility] [address] [place] [address] Dr. Forrest Lauren Monocytes/100 WBC (Bld) 8.0 % Normal 1.7-12.0 [facility] Comment on above: Performed By: #### P SASC #### [facility] [address] [place] [address] Dr. Forrest Lauren NEUT # 5.7 103/ul Normal 1.4-6.5 [facility] Comment on above: Performed By: #### P SASC #### [facility] [address] [place] [address] Dr. Forrest Lauren Neutrophils/100 WBC (Bld) 63.2 % Normal 43.0-75.0 [facility] Comment on above: Performed By: #### P SASC #### [facility] [address] [place] [address] Dr. Forrest Lauren Platelet mean volume (Bld) [Entitic vol] 9.7 fL Normal 9.5-13.[address] [facility] Comment on above: Performed By: #### P SASC #### [facility] [address] [address] [address] Forrest Lauren PLT 242 103/ul Normal 150-450 [facility] Comment on above: Performed By: #### P SASC #### [facility] [address] [address] [address] Forrest Lauren RBC 5.50 106/ul Normal 4.70-6.[address] [facility] Comment on above: Performed By: #### P SASC #### [facility] [address] [address] [address] Forrest Lauren WBC 9.0 103/ul Normal 4.0-11.[address] [facility] Comment on above: Performed By: #### P SASC #### [facility] [address] [place] [address] Dr. Forrest Lauren GLYCOHEMOGLOBIN A1Con 2021 ADA RECOMMENDATION ADA THERAPEUTIC TARGET 6.0 - 7.0 ACTION SUGGESTED > 7.[address] [facility] Comment on above: Performed By: #### A 1C #### [facility] [address] [place] [address] Dr. Forrest Lauren Glucose [Mass/Vol] 194 mg/dL Normal [facility] Comment on above: Performed By: #### A 1C #### [facility] [address] [place] [address] Dr. Forrest Lauren HbA1c (Bld) [Mass fraction] 8.4 % Critically high <=6.[address] [facility] Comment on above: Performed By: #### A 1C #### [facility] [address] [place] [address] Dr. Forrset Lauren LIPID PROFILEon 08-26-2021 CHOL-HDL RATIO NORM SEE BELOW Normal [facility] Comment on above: Result Comment: 3.3 - 4.4 LOW RISK 4.4 - 7.1 AVERAGE RISK 7.1 - 11.0 MODERATE RISK >11.0 HIGH RISK Performed By: #### P SASC #### [facility] [address] [place] [address] Dr. Forrest Lauren Cholesterol [Mass/Vol] 117 mg/dL Normal <=200 [facility] Comment on above: Performed By: #### P SASC #### [facility] [address] [address] [address] Forrest Lauren Cholesterol in HDL [Mass/Vol] 43 mg/dL Normal [facility] Comment on above: Performed By: #### P SASC #### [facility] [address] [address] [address] Forrest Lauren Cholesterol in LDL [Mass/Vol] 45.6 mg/dL Normal [facility] Comment on above: Performed By: #### P SASC #### [facility] [address] [address] [address] Forrest Lauren Cholesterol.total /Cholesterol in HDL [Mass ratio] 2.7 {ratio} Normal [facility] Comment on above: Performed By: #### P SASC #### [facility] [address] [address] [address] Forrest Lauren HDL NORMAL > or = 60 mg/dl - LO W CARDIOVASCULAR RISK <40 mg/dl - HIGH CARDIOVASCULAR RISK Normal [facility] Comment on above: Performed By: #### P SASC #### [facility] [address] [address] [address] Forrest Lauren LDL CALC NORMAL SEE BELOW Normal [facility] Comment on above: Result Comment: <100 mg/dl OPTIMAL 100 - 129 mg/dl NEAR OR ABOVE OPTIMAL 130 - 159 mg/dl BORDERLINE HIGH 160 - 189 mg/dl HIGH >190 mg/dl VERY HIGH Performed By: #### P SASC #### [facility] [address] [address] [address] Forrest Lauren Triglyceride [Mass/Vol] 142 mg/dL Normal <=150 [facility] Comment on above: Performed By: #### P SASC #### [facility] [address] [address] [address] Forrest Lauren VLDL CALC 28.4 mg/dL Normal [facility] Comment on above: Performed By: #### P SASC #### [facility] [address] [address] [address] Forrest Lauren PROF 14(COMP METB)on 022 Albumin [Mass/Vol] 4.1 g/dL Normal 3.5-5.[address] [facility] Comment on above: Performed By: #### P SASC #### [facility] [address] [place] [address] Dr. Forrest Lauren Albumin/Globulin [Mass ratio] 1.2 {ratio} Normal [facility] Comment on above: Performed By: #### P SASC #### [facility] [address] [place] [address] Dr. Forrest Lauren ALP [Catalytic activity/Vol] 82 U/L Normal 38-126 [facility] Comment on above: Performed By: #### P SASC #### [facility] [address] [place] [address] Dr. Forrest Lauren ALT [Catalytic activity/Vol] 38 U/L Normal 21-72 [facility] Comment on above: Performed By: #### P SASC #### [facility] [address] [place] [address] Dr. Forrest Lauren Anion gap [Moles/Vol] 12.7 mmol/L Normal [facility] Comment on above: Performed By: #### P SASC #### [facility] [address] [place] [address] Dr. Forrest Lauren AST [Catalytic activity/Vol] 18 U/L Normal 17-59 [facility] Comment on above: Performed By: #### P SASC #### [facility] [address] [place] [address] Dr. Forrest Lauren Bilirubin [Mass/Vol] 1.2 mg/dL Normal 0.2-1.3 [facility] Comment on above: Performed By: #### P SASC #### [facility] [address] [place] [address] Dr. Forrest Lauren Calcium [Mass/Vol] 9.7 mg/dL Normal 8.4-10.2 [facility] Comment on above: Performed By: #### P SASC #### [facility] [address] [address] [address] Forrest Lauren Chloride [Moles/Vol] 102 mmol/L Normal 98-107 [facility] Comment on above: Performed By: #### P SASC #### [facility] [address] [address] [address] Forrest Lauren CO2 [Moles/Vol] 30.6 mmol/L Critically high 22.0-30.0 [facility] Comment on above: Performed By: #### P SASC #### [facility] [address] [place] [address] Dr. Forrest Lauren Creatinine [Mass/Vol] 1.09 mg/dL Normal 0.66-1.25 [facility] Comment on above: Performed By: #### P SASC #### [facility] [address] [place] [address] Dr. Forrest Lauren EGFR-AF MOROCCAN >60 Normal >=60 [facility] Comment on above: Performed By: #### P SASC #### [facility] [address] [place] [address] Dr. Forrest Lauren EGFR-NON AF MOROCCAN >60 Normal >=60 [facility] Comment on above: Performed By: #### P SASC #### [facility] [address] [place] [address] Dr. Forrest Lauren Globulin (S) [Mass/Vol] 3.4 g/dL Normal [facility] Comment on above: Performed By: #### P SASC #### [facility] [address] [address] [address] Forrest Lauren Glucose [Mass/Vol] 238 mg/dL Critically high 74-106 [facility] Comment on above: Performed By: #### P SASC #### [facility] [address] [place] [address] Dr. Forrest Lauren Potassium [Moles/Vol] 4.3 mmol/L Normal 3.4-5.0 [facility] Comment on above: Performed By: #### P SASC #### [facility] [address] [place] [address] Dr. Forrest Lauren Protein [Mass/Vol] 7.5 g/dL Normal 6.1-8.[address] [facility] Comment on above: Performed By: #### P SASC #### [facility] [address] [place] [address] Dr. Forrest Lauren Sodium [Moles/Vol] 141 mmol/L Normal 137-145 [facility] Comment on above: Performed By: #### P SASC #### [facility] [address] [place] [address] Dr. Forrest Lauren Urea nitrogen [Mass/Vol] 20.0 mg/dL Normal 9.0-20.[address] [facility] Comment on above: Performed By: #### P SASC #### [facility] [address] [place] [address] Dr. Forrest Lauren Urea nitrogen/Creatini ne [Mass ratio] 18.3 mg/mg Normal [facility] Comment on above: Performed By: #### P SASC #### [facility] [address] [place] [address] Dr. Forrest Lauren URIC ACID SERUMon 08-26-2021 Urate [Mass/Vol] 4.8 mg/dL Normal 3.5-8.[address] [facility] Comment on above: Performed By: #### P SASC #### [facility] [address] [place] [address] Dr. Forrest Lauren Covid-19 PCR ([facility])on Sample Type Test performed using RT-PCR from a nasopharyngeal collected specimen. Normal [facility] Comment on above: Performed By: #### P SASC #### [facility] [address] [place] [address] Dr. Forrest Lauren SARS-CoV-2 (COVID-19) RNA MERA+probe Ql (Unsp spec) Detected Abnormal NOT DETECTED [facility] Comment on above: Result Comment: This test is not yet approved or cleared by the [place] FDA. When there are no FDA-approved or cleared tests available, and other criteria are met, FDA can make tests available under an emergency access mechanism called an Emergency Use Authorization (EUA). The EUA for this test is supported by the Social Service Coordinator of Health and Human Service's (HHS's) declaration [...] used). Performed By: #### P SASC #### [facility] [address] [place] [address] Dr. Forrest Lauren POINT OF CARE GLUCOSEon 05-0 Glucose [Mass/Vol] 255 mg/dL Critically high 74-[address] [facility] Comment on above: Performed By: #### P OCGLUC #### [facility] [address] [place] [address] Matias Rodasen XR CHEST 1 Von 12-07-2020 [...] AMARIS WALKER Date: 2020-12-06 22:04 Normal [facility] INSULINon 10-02-2020 Insulin 16.9 uIU/mL Normal 2.6-24.9 [facility] Comment on above: Performed By: #### P SASC #### [facility] [address] [place] [address] Dr. Forrest Lauren CBC AUTO DIFFon 10-01-2020 BASO # 0.1 103/ul Normal 0.0-0.[address] [facility] Comment on above: Performed By: #### C BC #### [facility] [address] [place] [address] Matias Rivas Basophils/100 WBC (Bld) 0.6 % Normal 0.2-2.[address] [facility] Comment on above: Performed By: #### C BC #### [facility] [address] [place] [address] Matias Evelyn EO # 0.4 103/ul Normal 0.0-0.7 [facility] Comment on above: Performed By: #### C BC #### [facility] [address] [place] [address] Matias Evelyn Eosinophils/100 WBC (Bld) 4.2 % Normal 0.9-7.0 [facility] Comment on above: Performed By: #### C BC #### [facility] [address] [place] [address] Matias Evelyn Erythrocyte distribution width (RBC) [Ratio] 13.1 % Normal 11.0-15.[address] [facility] Comment on above: Performed By: #### C BC #### [facility] [address] [place] [address] Matias Evelyn Hematocrit (Bld) [Volume fraction] 50.2 % Normal 42.0-54.[address] [facility] Comment on above: Performed By: #### C BC #### [facility] [address] [place] [address] Matias Evelyn Hemoglobin (Bld) [Mass/Vol] 16.6 g/dL Normal 14.0-18.[address] [facility] Comment on above: Performed By: #### C BC #### [facility] [address] [place] [address] Matias Evelyn IG # 0.05 10e3/ul Critically high 0.00-0.03 [facility] Comment on above: Performed By: #### C BC #### [facility] [address] [place] [address] Matias Evelyn IG % 0.6 % Critically high 0.0-0.5 [facility] Comment on above: Performed By: #### C BC #### [facility] [address] [place] [address] Matias Evelyn LYMPH # 1.9 103/ul Normal 1.2-3.8 [facility] Comment on above: Performed By: #### C BC #### [facility] [address] [place], [place] [id number] Matias Evelyn Lymphocytes/100 WBC (Bld) 22.2 % Normal 20.5-60.0 [facility] Comment on above: Performed By: #### C BC #### [facility] [address] [place], [place] [id number] Matias Rivas MANUAL DIFF REQ NO Normal [facility] Comment on above: Performed By: #### C BC #### [facility] [address] [place], [place] [id number] Matiaswali Rivas MCH (RBC) [Entitic mass] 29.4 pg Normal 25.9-34.0 [facility] Comment on above: Performed By: #### C BC #### [facility] [address] [place] [address] Matiaswali Rivas MCHC (RBC) [Mass/Vol] 33.1 g/dL Normal 29.9-35.2 [facility] Comment on above: Performed By: #### C BC #### [facility] [address] [place] [address] Matiaswali Rivas MCV (RBC) [Entitic vol] 88.8 fL Normal 80.0-94.0 [facility] Comment on above: Performed By: #### C BC #### [facility] [address] [place], [place] [id number] Matias Evelyn MONO # 0.7 103/ul Normal 0.3-0.8 [facility] Comment on above: Performed By: #### C BC #### [facility] [address] [place] [address] Matiaswali Rodasen Monocytes/100 WBC (Bld) 7.7 % Normal 1.7-12.0 [facility] Comment on above: Performed By: #### C BC #### [facility] [address] [place], [place] [id number] Matias Evelyn NEUT # 5.7 103/ul Normal 1.4-6.5 [facility] Comment on above: Performed By: #### C BC #### [facility] [address] [place], [place] [id number] Matias Evelyn Neutrophils/100 WBC (Bld) 64.7 % Normal 43.0-75.[address] [facility] Comment on above: Performed By: #### C BC #### [facility] [address] [place], [place] [id number] Matias Rivas Platelet mean volume (Bld) [Entitic vol] 10.4 fL Normal 9.5-13.[address] [facility] Comment on above: Performed By: #### C BC #### [facility] [address] [place] [address] Matias Rivas PLT 243 103/ul Normal 150-450 [facility] Comment on above: Performed By: #### C BC #### [facility] [address] [place] [address] Matiaswali Rivas RBC 5.65 106/ul Normal 4.70-6.10 [facility] Comment on above: Performed By: #### C BC #### [facility] [address] [place] [address] Matias Rivas WBC 8.7 103/ul Normal 4.0-11.[address] [facility] Comment on above: Performed By: #### C BC #### [facility] [address] [place], [place] [id number] Matias Rivas FREE THYROXINE INDEX T7on FTI 2.[address] [facility] Comment on above: Performed By: #### U TARIK, CMP, T7, PSASC, TSH, LIPID #### [facility] [address] [place] [address] Matias Rivas T3U 34.0 % Normal 23.5-40.5 [facility] Comment on above: Performed By: #### U TARIK, CMP, T7, PSASC, TSH, LIPID #### [facility] [address] [place], [place] [id number] Matias Rivas T4 [Mass/Vol] 6.20 ug/dL Normal 5.53-11.[address] [facility] Comment on above: Performed By: #### U TARIK, CMP, T7, PSASC, TSH, LIPID #### [facility] [address] [place] [address] Matias Rivas GLYCOHEMOGLOBIN A1Con 2020 ADA RECOMMENDATION ADA THERAPEUTIC TARGET 6.0 - 7.0 ACTION SUGGESTED > 7.[address] [facility] Comment on above: Performed By: #### A 1C #### [facility] [address] [place] [address] Matias Rivas Glucose [Mass/Vol] 266 mg/dL Normal [facility] Comment on above: Performed By: #### A 1C #### [facility] [address] [place] [address] Matias Rivas HbA1c (Bld) [Mass fraction] 10.9 % Critically high <=6.[address] [facility] Comment on above: Performed By: #### A 1C #### [facility] [address] [place] [address] Matias Rivas LIPID PROFILEon 10-01-2020 CHOL-HDL RATIO NORM SEE BELOW Normal [facility] Comment on above: Result Comment: 3.3 - 4.4 LOW RISK 4.4 - 7.1 AVERAGE RISK 7.1 - 11.0 MODERATE RISK >11.0 HIGH RISK Performed By: #### P SASC #### [facility] [address] [place] [address] Dr. Forrest Lauren Cholesterol [Mass/Vol] 110 mg/dL Normal <=[address] [facility] Comment on above: Performed By: #### P SASC #### [facility] [address] [place] [address] Dr. Forrest Lauren Cholesterol in HDL [Mass/Vol] 36 mg/dL Normal [facility] Comment on above: Performed By: #### P SASC #### [facility] [address] [place] [address] Dr. Forrest Lauren Cholesterol in LDL [Mass/Vol] 36.2 mg/dL Normal [facility] Comment on above: Performed By: #### P SASC #### [facility] [address] [place] [address] Dr. Forrest Lauren Cholesterol.total /Cholesterol in HDL [Mass ratio] 3.1 {ratio} Normal [facility] Comment on above: Performed By: #### P SASC #### [facility] [address] [address] [address] Forrest Lauren HDL NORMAL > or = 60 mg/dl - LO W CARDIOVASCULAR RISK <40 mg/dl - HIGH CARDIOVASCULAR RISK Normal [facility] Comment on above: Performed By: #### P SASC #### [facility] [address] [address] [address] Forrest Lauren LDL CALC NORMAL SEE BELOW Normal [facility] Comment on above: Result Comment: <100 mg/dl OPTIMAL 100 - 129 mg/dl NEAR OR ABOVE OPTIMAL 130 - 159 mg/dl BORDERLINE HIGH 160 - 189 mg/dl HIGH >190 mg/dl VERY HIGH Performed By: #### P SASC #### [facility] [address] [address] [address] Forrest Lauren Triglyceride [Mass/Vol] 189 mg/dL Critically high <=[address] [facility] Comment on above: Performed By: #### P SASC #### [facility] [address] [address] [address] Forrest Lauren VLDL CALC 37.8 mg/dL Normal [facility] Comment on above: Performed By: #### P SASC #### [facility] [address] [address] [address] Forrest Lauren PROF 14(COMP METB)on 021 Albumin [Mass/Vol] 4.1 g/dL Normal 3.5-5.[address] [facility] Comment on above: Performed By: #### U TARIK, CMP, T7, PSASC, TSH, LIPID #### [facility] [address] [place] [address] Matias Rivas Albumin/Globulin [Mass ratio] 1.2 {ratio} Normal [facility] Comment on above: Performed By: #### U TARIK, CMP, T7, PSASC, TSH, LIPID #### [facility] [address] [address] Matias Rivas ALP [Catalytic activity/Vol] 80 U/L Normal 38-[address] [facility] Comment on above: Performed By: #### U TARIK, CMP, T7, PSASC, TSH, LIPID #### [facility] [address] [address] Matias Evelyn ALT [Catalytic activity/Vol] 42 U/L Normal 21-72 [facility] Comment on above: Performed By: #### U TARIK, CMP, T7, PSASC, TSH, LIPID #### [facility] [address] [place] [address] Matias Evelyn Anion gap [Moles/Vol] 12.3 mmol/L Normal [facility] Comment on above: Performed By: #### U TARIK, CMP, T7, PSASC, TSH, LIPID #### [facility] [address] [place] [address] Matias Evelyn AST [Catalytic activity/Vol] 24 U/L Normal 17-59 [facility] Comment on above: Performed By: #### U TARIK, CMP, T7, PSASC, TSH, LIPID #### [facility] [address] [place] [address] Matias Evelyn Bilirubin [Mass/Vol] 1.3 mg/dL Normal 0.2-1.3 [facility] Comment on above: Performed By: #### U TARIK, CMP, T7, PSASC, TSH, LIPID #### [facility] [address] [place] [address] Matias Evelyn Calcium [Mass/Vol] 9.3 mg/dL Normal 8.4-10.2 [facility] Comment on above: Performed By: #### U TARIK, CMP, T7, PSASC, TSH, LIPID #### [facility] [address] [place] [address] Matias Evelyn Chloride [Moles/Vol] 103 mmol/L Normal 98-107 [facility] Comment on above: Performed By: #### U TARIK, CMP, T7, PSASC, TSH, LIPID #### [facility] [address] [place] [address] Matias Evelyn CO2 [Moles/Vol] 30.0 mmol/L Normal 22.0-30.0 [facility] Comment on above: Performed By: #### U TARIK, CMP, T7, PSASC, TSH, LIPID #### [facility] [address] [place] [address] Matias Evelyn Creatinine [Mass/Vol] 1.20 mg/dL Normal 0.66-1.25 [facility] Comment on above: Performed By: #### U TARIK, CMP, T7, PSASC, TSH, LIPID #### [facility] [address] [address] Matias Evelyn EGFR-AF MOROCCAN >60 Normal >=60 [facility] Comment on above: Performed By: #### U TARIK, CMP, T7, PSASC, TSH, LIPID #### [facility] [address] [address] Matias Evelyn EGFR-NON AF MOROCCAN >60 Normal >=60 [facility] Comment on above: Performed By: #### U TARIK, CMP, T7, PSASC, TSH, LIPID #### [facility] [address] [address] Matias Evelyn Globulin (S) [Mass/Vol] 3.5 g/dL Normal [facility] Comment on above: Performed By: #### U TARIK, CMP, T7, PSASC, TSH, LIPID #### [facility] [address] [address] Matias Evelyn Glucose [Mass/Vol] 269 mg/dL Critically high 74-106 [facility] Comment on above: Performed By: #### U TARIK, CMP, T7, PSASC, TSH, LIPID #### [facility] [address] [address] Matias Eevlyn Potassium [Moles/Vol] 4.3 mmol/L Normal 3.4-5.0 [facility] Comment on above: Performed By: #### U TARIK, CMP, T7, PSASC, TSH, LIPID #### [facility] [address] [address] Matias Evelyn Protein [Mass/Vol] 7.6 g/dL Normal 6.1-8.2 [facility] Comment on above: Performed By: #### U TARIK, CMP, T7, PSASC, TSH, LIPID #### [facility] [address] [address] Matias Evelyn Sodium [Moles/Vol] 141 mmol/L Normal 137-145 [facility] Comment on above: Performed By: #### U TARIK, CMP, T7, PSASC, TSH, LIPID #### [facility] [address] [address] Matias Evelyn Urea nitrogen [Mass/Vol] 17.0 mg/dL Normal 9.0-20.[address] [facility] Comment on above: Performed By: #### U TARIK, CMP, T7, PSASC, TSH, LIPID #### [facility] [address] [address] Matias Evelyn Urea nitrogen/Creatini ne [Mass ratio] 14.2 mg/mg Normal [facility] Comment on above: Performed By: #### U TARIK, CMP, T7, PSASC, TSH, LIPID #### [facility] [address] [place] [address] Matias Rivas TSHon 10-01-2020 TSH 1.574 uIU/mL Normal 0.470-4.[address] [facility] Comment on above: Performed By: #### P SASC #### [facility] [address] [place] [address] Dr. Forrest Lauren TSH RANGE SEE BELOW Normal [facility] Comment on above: Result Comment: <0.3 4 UIU/ml HYPERTHYROID 0.34-5.60 UIU/ml EUTHYROID >5.60 UIU/ml HYPOTHYROID Performed By: #### P SASC #### [facility] [address] [place] [address] Dr. Forrest Lauren URIC ACID SERUMon 10-01-2020 Urate [Mass/Vol] 4.8 mg/dL Normal 3.5-8.[address] [facility] Comment on above: Performed By: #### P SASC #### [facility] [address] [place] [address] Dr. Forrest Lauren Cardiovascular Lab Reporton 08-03-2017 Cardiovascular Lab Report [facility] Patient Name: [facility] MR #: [id number] Physician: Jerod Miller M.D.Medicine Service Date: 12/28/2017Division of Birthdate: 1955ardiology Room #: [facility] [place], [place] [address]Kylof Fax Cardiovascular Laboratory ReportINDICATION: Hoang Tran is [...] the right internal jugular vein and a 6-English x 11cm sheath was placed. A 6-English Griffith catheter was used for right heartcatheterization with measurement of pressures and calculation of cardiacoutput using the estimated Luke method. Griffith catheter was removed.Using ultrasound guidance and micropuncture technique, access was obtainedin the left radial artery and a 6-English x 11 cm Hydrophilic sheath wasadvanced. Verapamil [...] 08/02/2017/02:42 P/Jerod Manuel M.D.Date Trans: 08/03/2017 11:29 [id number]: Yfn Mata D.O. [address] [place] [address] Vital Signs Date Time Vital Sign Value Performing Clinician Jose fairchild 01-21-2024 11:44-0400 Blood Pressure Location Moody POP [facility] 01-21-2024 11:44-0400 Diastolic blood pressure 72 mm[Hg] Moody POP [facility] 01-21-2024 11:44-0400 Heart rate 70 /min Moody POP [facility] 01-21-2024 11:44-0400 Respiratory rate 16 /min [facility] 01-21-2024 11:44-2382 Systolic blood pressure 108 mm[Hg] Moody DONN [facility] Encounters Encounter Date Encounter Type Care Provider Facility Start: 06-09-2024 ambulatory Moody POP Facili ty:[facility] Start: 06-03-2024 [facility] Start: 06-03-2024 ambulatory Jassi R NILL Facility : [place] Start: 04-30-2024 End: 04-30-2024 ambulatory Jassi R NILL Facility: [facility] Start: 04-30-2024 End: 04-30-2024 Patient encounter procedure Jassi R NILL [facility] [place] Start: 04-28-2024 ambulatory Jassi NILL Facility:[facility] Start: 04-23-2024 End: 04-23-2024 ambulatory DO González Kuns Work Phone: [facility] Work Phone: Start: 04-23-2024 End: 04-23-2024 Departed Referred DO González Kuns Work Phone: [facility] [place] [facility] Start: 04-23-2024 ambulatory Jassi NILL Facility:[facility] Start: 04-22-2024 End: 04-23-2024 ambulatory Jassi R NILL Facility:[id number] Start: 04-11-2024 End: 04-11-2024 ambulatory DO González Kuns Work Phone: [facility] Work Phone: Start: 04-11-2024 End: 04-11-2024 Departed Referred DO González Kuns Work Phone: [facility] [place] [facility] Start: 03-28-2024 End: 03-28-2024 ambulatory [facility] Start: 02-25-2024 End: 02-25-2024 ambulatory [facility] Start: 02-11-2024 End: 02-11-2024 ambulatory Moody POP Facility:CD:[id number] Start: 01-21-2024 End: 01-21-2024 ambulatory AILIN Jhonatan PETER Facility:[facility] Start: 01-21-2024 End: 01-21-2024 Patient encounter procedure Moody POP [facility] Start: 09-12-2023 ambulatory Jassi CLEMENS Facility:[facility] Start: 08-26-2021 End: 08-26-2021 ambulatory AILIN BAKER Facility:[facility] Start: 02-23-2021 ambulatory AILIN BAKER Facility:[facility] Start: 12-06-2020 End: 12-07-2020 ambulatory ILAN TODD Facility:[facility] Start: 10-07-2020 Encounter for genera l adult medical examination without abnormal findings AILIN BAKER [facility] Start: 10-01-2020 End: 10-02-2020 ambulatory [...] above: Performed By: #### P SAS #### [facility] [address] [place] [address] Dr. Forrest Lauren Start: 10-01-2020 PSA screening AILIN KHAN Comment on above: Performed By: #### U TARIK, CMP, T7, PSASC, TSH, LIPID #### [facility] [address] [place] [address] Matias Rivas Start: 08-06-2013 Colonoscopy Moody ASHER Start: 08-06-2004 Neoplasm of brain (disorder) Moody POP Back structure, excl uding neck (body structure) Moody POP Removal of acoustic neuroma Jassi AIRAM Spinal arthrodesis Jassi INFANTE Tonsillectomy Moody POP Payers Date Payer Category Payer Medicare [id number] [id number] 1958 Medicare [id number] 1958 Self-pay 1955 Unknown [id number]. 593 1955 Unknown [id number] [id number]. 593 1955 Unknown [id number] .[id number]. 593 1956 Unknown [id number] 2.16.840.1.171368.3.579.2. 593 1956 Unknown [id number] 2.16.840.1.148826.3.579.2. 727 1956 Unknown [id number] 2.16.840.1.782633.3.579.2. 727 1956 Unknown [id number] 2.16.840.1.789053.3.579.2. 727 1956 Unknown [id number] 2.16.840.1.877745.3.579.2. 727 1956 Unknown [id number] 2.16.840.1.783055.3.579.2. 727 1956 Unknown [id number] 2.16.840.1.256909.3.579.2. 727 1955 Unknown [id number] 2.16.840.1.462478.3.579.2. 727 Private Health Insurance [facility] [id number] Unknown Unknown Bruce BC/BS [id number] Unknown [id number] [id number]. 531 Unknown [id number] [id number]. 531 Social History Date Type Detail Facility Start: 01-21-2024 End: 04-30-2024 Tobacco smoking status Never smoked tobacco (finding) [facility] Tobacco smoking status Never [facility] Sex Assigned At Male [facility] Start: 1955 Sex Assigned At Male F [facility] Functional Status Date Assessment Result Facility 04-30-2024 Functional Status N/A [facility] [place] 01-21-2024 Functional Status N/A [facility] Progress note 03-28-2024 Note Date & Type Note Facility 03-28-2024 Note [facility] Subjective Hoang Tran is a [...] HDL 42. TSH (more content not included)... [facility] Progress note 02-25-2024 Note Date & Type Note Facility 02-25-2024 Note [facility] Subjective Hoang Tran is a [...] platelets 256, potassium (more content not included)... [facility] Clinical Note 01-21-2024 Note Date & Type [...] neoplasm of prostat (more content not included)... [facility] Comment on above: Result Comment: [...] urethra. Follow these instructions at home: Take [id number]-mqcxird and prescription medicines only as told by [...] provider. Document Revised: 02/08/2022 Document Reviewed: 02/08/2022 [employer] Patient Education 2022 [employer]. Follow Up Care 09/13/2023 09:26:56 With:DONN ELLIS, Moody Aranda, URL Address: [facility] [address] [place] [address]- When: Unknown [facility] Evaluation + Plan note Note Date & Type Note Facility Evaluation + Plan note No data available for this section [facility] Evaluation + Plan note Note Date & Type Note Facility Evaluation + Plan note Future Appointments Appointment Date:06/09/2024 10:45:00 AM Scheduled Provider:Moody POP MD Location:[facility] Appointment Type:URO Office Visit [facility] Evaluation note Note Date & Type Note Facility Evaluation note No assessment information availa [facility] Work Phone: Hospital Discharge instructions Note Date & Type Note Facility Hospital Discharge instructions No data available for this section [facility] Progress note Note Date & Type Note Facility Progress note No data available for this section [facility] Summary Purpose Family History No Family [...] CREATED AUTHOR AUTHOR'S ORGANIZ ATION 09/01/2021 [facility] DATE CREATED AUTHOR AUTHOR'S ORGANIZ ATION 03/30/[address] [facility] DATE CREATED AUTHOR AUTHOR'S ORGANIZ ATION 05/16/2024 [facility] DATE CREATED AUTHOR AUTHOR'S ORGANIZ ATION 05/22/2024 [facility] Patient Care team informatio n (unrecognized section [...] Member Role Status Dates Jassi Clemens MD [facility] Attending Provider Active Start: April 23, [...] BE BASED ON THE PRIMARY CLINICAL RECORDS. [facility] [employer] [facility]. provides no warranty or guarantee of the accuracy or completeness of information in this document.
== END 2024-05-26 09:09 | disposition home or self-care (01) ==
LOC: PST 09:08
PROVIDERS: PCP Nurse Practitioner Family; Visit Provider Surgery
DX: Z01.818 Encounter for other preprocedural examination (principal); C85.11 Unspecified B-cell lymphoma, lymph nodes of head, face, and neck

== ENCOUNTER 2024-05-27 07:31 | Outpatient (RCR) | payer MEDICARE, SELFPAY ==
[2024-05-15 12:35] LABS: Basophils Absolute Auto 0.1 10^3/uL (0.0-0.1); Basophils Percent Auto 0.6 % (0.2-2.0); Eosinophils Percent Auto 0.3 % (0.9-7.0); Hematocrit 44.6 % (42.0-54.0); Hemoglobin 13.7 g/dL (14.0-18.0); Immature Granulocytes Abs Auto 0.07 10^3/uL (0.00-0.03); Immature Granulocytes Pct Auto 0.6 % (0.0-0.5); Lymphocytes Absolute Auto 1.1 10^3/uL (1.2-3.8); Lymphocytes Percent Auto 9.7 % (20.5-60.0); Mean Corpuscular HGB Conc 30.7 g/dL (29.9-35.2); Mean Corpuscular Hemoglobin 24.3 pg (25.9-34.0); Mean Corpuscular Volume 79.1 fL (80.0-94.0); Mean Platelet Volume 8.8 fL (9.5-13.5); Monocytes Absolute Auto 1.1 10^3/uL (0.3-0.8); Monocytes Percent Auto 9.1 % (1.7-12.0); Neutrophils Absolute Auto 9.3 10^3/uL (1.4-6.5); Neutrophils Percent Auto 79.7 % (43.0-75.0); Platelet Count 501 10^3/uL (150-450); Red Blood Count 5.64 10^6/uL (4.70-6.10); Red Cell Distribution Width 16.4 % (11.0-15.0); White Blood Count 11.7 10^3/uL (4.0-11.0)
[2024-05-15 13:44] LABS: Alanine Aminotransferase 80 U/L (16-63); Albumin Globulin Ratio 0.3; Albumin Level 2.2 g/dL (3.4-5.0); Alkaline Phosphatase 246 U/L (46-116); Aspartate Amino Transferase 63 U/L (15-37); BUN Creatinine Ratio 15.2; Bilirubin Total 0.7 mg/dL (0.2-1.0); Calcium 10.1 mg/dL (8.5-10.1); Carbon Dioxide 27.7 mmol/L (21.0-32.0); Chloride 95 mmol/L (98-107); Estimated GFR (African America >60 (>=60 mL/min/1.73m^2); Estimated GFR (Non-African Ame >60 (>=60 mL/min/1.73m^2); Globulin 6.8 g/dL; Glucose 171 mg/dL (74-106); Lactate Dehydrogenase 197 U/L (85-227); Potassium 3.7 mmol/L (3.5-5.1); Sodium 134 mmol/L (136-145)
[2024-05-16 05:09] LABS: HBsAg Screen Negative (Negative); Hep B Core Ab, Tot Negative (Negative); Hepatitis B Surf Ab Quant <3.5 mIU/mL (Immunity>10)
[2024-05-17 05:10] LABS: Hexagonal Phase Phospholipid 3 sec (0-11); Lupus Reflex Interpretation Comment: (.); PTT-LA 44.3 sec (0.0-43.5); PTT-LA Mix 42.9 sec (0.0-40.5); dRVVT 47.8 sec (0.0-47.0); dRVVT Mix 42.6 sec (0.0-40.4)
--- NOTE | 2024-05-21 14:38 | PC.NURSE ---
1400: Pt. to [facility] amb. using cane for chemo teach. Accompanied by . Pt. appears somber and flat affect noted. Consent forms reviewed and verified with patient and , questions addressed. Chemo teaching, nutrition recommendations and signs and symptoms of adverse reactions reviewed with patient and . Both relay understanding. Pt. given chemo shirt and coupons for [employer]uc[employer] protein beverages. Instructed both to call if questions arise and take time to review informational packets provided. 1435: Pt d/c'd via w/c to home with .
== END 2024-06-05 23:59 | disposition home or self-care (01) ==
LOC: HEMC 07:31
PROVIDERS: PCP Nurse Practitioner Family; Visit Provider Internal Medicine Hematology & Oncology
DX: C81.18 Nodular sclerosis Hodgkin lymphoma, lymph nodes of multiple sites (principal); R74.01 Elevation of levels of liver transaminase levels; D50.9 Iron deficiency anemia, unspecified; R11.2 Nausea with vomiting, unspecified; E11.9 Type 2 diabetes mellitus without complications; Z79.4 Long term (current) use of insulin; H91.90 Unspecified hearing loss, unspecified ear; Z91.81 History of falling; R53.83 Other fatigue
CPT/HCPCS: 36415; 80053; 83615; 85025; 85598; 85613; 85652; 85732; 86317; 86704; 87340; 99211; G0463

== ENCOUNTER 2024-06-04 12:58 | Observation (INO) | payer MEDICARE, SELFPAY ==
[2024-05-26 09:52] VITALS: BP 105/66; PULSE 89; TEMP 36.4; O2SAT 99; BMI 21.8
[2024-06-04] VITALS (97 sets, daily range): BP systolic 102–127; BP diastolic 61–103; PULSE 67–141; TEMP 36.1–37.5; O2SAT 90–98; BMI 21.2
--- NOTE | 2024-06-04 | OP_ITS ---
OPERATION DATE: 06/04/2024 PREOPERATIVE DIAGNOSIS: Hodgkin?s lymphoma, poor venous access, need for secure central access for chemotherapy. POSTOPERATIVE DIAGNOSIS: Hodgkin?s lymphoma, poor venous access, need for secure central access for chemotherapy. PROCEDURE: Right external jugular Infusaport insertion. SURGEON: Jassi Clemens M.D. ANESTHESIA: General with laryngeal mask airway, as well as local with 0.5% Marcaine plain. INDICATIONS AND CONSENT: Patient is a 68-year-old male with recent diagnosis of Hodgkin?s lymphoma. He has had a long history of enlarging right adenopathy that had been going on for some time, at least six months. Recent workup revealed Hodgkin?s lymphoma. He has had approximately 100 pound weight loss and severe debility from his disease. Oncology has requested an Infusaport for chemotherapy. Indications, risks, benefits, alternatives of proceeding with Infusaport insertion were explained extensively to the patient, including the risks of bleeding, infection, scarring, pain, blood clot, pneumothorax, catheter infection, need for catheter removal or further surgery or embolization of the catheter. All of his questions were answered. Informed consent was obtained. PROCEDURE: Patient brought to the operating room, placed in the supine position. General anesthesia was induced. He was prepped and draped in the usual sterile fashion. Right external jugular was prominent. An incision was made over the long axis of the right external jugular, carried down through the platysma using sharp dissection and cautery. The external jugular was isolated between two 2-0 Vicryl ties. The cephalad tie was tied down. A venotomy was then made with a #11 blade, and the pre-flushed catheter was then inserted under fluoroscopic guidance, adjusted so that it was in good position in the distal SVC at the level of the malcom. Aspirated blood easily and flushed easily. The distal tie was then tied down over the external jugular and the catheter. Attention was then turned to the chest wall, where an area below the clavicle, to the right of the sternum was chosen for the port, in the area of the skin crease. Incision was made, carried down through subcutaneous tissue using electrocautery. A subcutaneous pocket was created above the pectoralis fascia. Catheter was then tunneled from the neck to the chest wall incision. It was trimmed and attached to the pre-flushed port. Port aspirated blood easily, was then flushed with heparinized saline. Fluoroscopy was checked once again. The catheter was noted to be in good position in the distal SVC. There was no kinking or twisting along its course. The port was then secured to the pectoralis fascia using interrupted 3-0 Prolene sutures. Incision was then closed in layers with 3-0 Monocryl subcutaneous sutures and 4-0 Monocryl subcuticular sutures. Skin glue was applied, as well as sterile dressing. Sponge and needle count was correct x3 per nursing personnel. Patient tolerated procedure well, was sent to recovery room in good condition, where a portal chest x-ray is pending at the time of this dictation. CC: Ailin España CNP [facility]
--- OUTSIDE RECORDS SUMMARY | 2024-06-04 08:25 | XMS_ITS | CCD ---
Author Organization [facility] Care Team Providers Care Or Nurse Manager Name Role Phone PHYSICIAN, DEFAULT Unavailable Unavailable [...] AILIN Admitting Unavailable AILIN BAKER Attending Unavailable ELIANA BAKERELA Consulting Unavailable RAY AILIN Primary Care Unavailable AILIN BAKER Attending Unavailable YFN MATA Primary Care Unavailable AILIN BAKER Consulting Unavailable RAY AILIN Admitting Unavailable ILAN TODD Attending Unavailable ILAN TODD Consulting Unavailable ILAN TODD Admitting Unavailable RAY AILIN Primary Care Unavailable AMARIS WALKER Consulting Unavailable AILIN GREEN Primary Care Physician JEROD MANUEL Attending Unavailable JEROD MANUEL Attending Unavailable DO González Moon Primary Care Provider [phone] MD Hoang Strange Attending Provider MD Jassi Clemens Attending Provider [phone] Ailin Green MD Unavailable Taco ELLIS, Ailin Unavailable YANNA HERBERT Attending Unavailable Moody POP Attending Unavailable Jassi CLEMENS Attending Unavailable aJssi CLEMENS Attending Unavailable AILIN GREEN Referring Unavailable Moody POP Attending Unavailable Moody POP Attending Unavailable Jassi CLEMENS Attending Unavailable Jassi CLEMENS Attending Unavailable MD Sonia Donnelly Attending Provider MEHRDAD Green Primary Care Provider Jassi Clemens Admitting Unavailable Jassi Clemens Attending Unavailable Hoang Strange Admitting Unavailable Hoang Strange Attending Unavailable González Moon Primary Care Unavailable Sonia Donnelly Admitting Unavailable Sonia Donnelly Attending Unavailable Ailin Green Primary Care Unavailable Allergies Allergy Classification Reported Allergen(s) Allergy Type Date of Onset Reaction(s) Facility (2 sources) No Known Allergies; 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: [No Known Allergies] Propensity to adverse reactions (disorder) 7 [facility] Repository (1 source) empagliflozin; 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: [EMPAGLIFLOZIN] Drug Allergy 4 [facility] Repository (1 source) No Known Medication Allergies; 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: [No Known Medication Allergies] Propensity to adverse reactions (disorder) [facility] Repository (1 source) Unable to Assess Drug allergy (disorder) 4 [facility] Repository Medications Current Medications Medication Drug Class(es) Dates Sig (Normalized) Sig (Original) amLODIPine 10 mg oral tablet (1 source) Dihydropyridine Calcium Channel Erick Start: 01-21-2024 amLODIPine 10 mg Tab 90 tab(s), 0 Refill(s), Refills(s) 0 Start Date: 01/21/24 Status: Ordered atorvastatin 10 mg oral tablet (3 sources) HMG-CoA Reductase Inhibitor Start: 04-30-2024 take 1 tablet by mouth once daily atorvastatin 10 mg Tab 10 mg = 1 tab(s), Oral, Daily, Refills(s) 0 Start Date: 04/30/24 Status: Ordered Start: 01-21-2024 atorvastatin 4 0 mg Tab 90 tab(s), 0 Refill(s), Refills(s) 0 Start Date: 01/21/24 Status: Ordered carvedilol 6.25 mg oral tablet (3 sources) alpha-Adrenergic Erick, beta-Adrenergic Erick Start: 04-30-2024 [...] ml insulin glargine 100 unt/ml pen injector (2 sources) Insulin Analog Start: 04-25-2024 Lantus Solostar Pen 100 units/mL subcutaneous solution 20 unit(s), SubCutaneous, Once a day (at bedtime), Refills(s) 0 Start Date: 04/25/24 Status: Ordered liothyronine sodium 0.005 mg oral tablet (1 source) l-Triiodothyronine Start: 05-27-2024 take 1 tablet by mouth once daily liothyronine 5 mcg Tab 5 mcg = 1 tab(s), Oral, Daily, Refills(s) 0 Start Date: 05/27/24 Status: Ordered losartan potassium 100 mg oral tablet (3 sources) Angiotensin 2 Receptor Erick Start: 01-21-2024 take 1 tablet by mouth once daily losartan 100 mg Tab 100 mg = 1 tab(s), Oral, Daily, Refills(s) 0 Start Date: 01/21/24 Status: Ordered metFORMIN hydrochloride 1000 mg oral tablet (3 sources) Biguanide Start: 01-21-2024 take 1 tablet by mouth once daily metformin 1000 mg Tab 1,000 mg = 1 tab(s), Oral, Daily, Refills(s) 0 Start Date: 01/21/24 Status: Ordered ondansetron 4 mg oral tablet (1 source) Serotonin-3 Receptor Antagonist Start: 05-27-2024 ondansetron 4 mg Tab as directed, Refills(s) 0 Start Date: 05/27/24 Status: Ordered prochlorperazine 10 mg oral tablet (1 source) Phenothiazine Start: 05-27-2024 prochlorperazine 10 mg Tab as directed, Refills(s) 0 Start Date: 05/27/24 Status: Ordered SITagliptin 100 mg oral tablet (3 sources) Dipeptidyl Peptidase 4 Inhibitor Start: 01-21-2024 take 1 tablet by mouth once daily Januvia 100 mg Tab 100 mg = 1 tab(s), Oral, Daily, Refills(s) 0 Start Date: 01/21/24 Status: Ordered tamsulosin hydrochloride 0.4 mg oral capsule (3 sources) alpha-Adrenergic Erick Start: 01-21-2024 End: 01-15-2025 take 1 capsule by mouth once daily Flomax 0.4 mg Cap 0.4 mg = 1 cap(s), Oral, Daily, Stop taking if experiencing dizziness or lightheadedness., X 90 day(s), # 90 cap(s), Refills(s) 3, Pharmacy: [facility], 187, cm, 01/21/24 11:48:00 EDT, Height/Length Dosing, 118, kg, 01/21/24 11:48:00 EDT, Weight Dosing Start Date: 01/21/24 Stop Date: 01/15/25 Status: Ordered traMADol hydrochloride 50 mg oral tablet (1 source) Opioid Agonist Start: 05-27-2024 traMADOL 50 mg Tab as directed, Refills(s) 0 Start Date: 05/27/24 Status: Ordered Completed/Discontinued Medications Medication Drug Class(es) Dates Sig (Normalized) Sig (Original) ciprofloxacin 500 mg oral tablet (3 sources) Quinolone Antimicrobial Start: 01-21-2024 Cipro 500 mg Tab 500 mg = 1 tab(s), Oral, As Directed, Patient to take 1 tab the day before procedure and the 2nd tab the day of procedure once completed, # 2 tab(s), Refills(s) 0, Pharmacy: [id number], 187, cm, 01/21/24 11:48:00 EDT, Height/Length Dosing, 118, kg, 01/21/24 11:48:00 EDT, Weight Dosing Start Date: 01/21/24 Status: Ordered Problems Active Problems Problem Classification Problem Date Documented Date Episodic/Chronic Anxiety disorders (2 sources) Anxiety 04-25-2024 Chronic Cardiac dysrhythmias (2 sources) Atrial premature depolarization; 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: [Atrial premature depolarization] Onset: 02-25-2024 Chronic Complications of surgical procedures or medical care (2 sources) Hypotension due to drugs; 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: [Hypotension due to drugs] Onset: 03-28-2024 Episodic Diabetes mellitus without complication (4 sources) Type 2 diabetes mellitus without complications; 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: [Diabetes mellitus] Onset: 2017 01-21-2024 Chronic Diabetes mellitus without complication (8 sources) Other abnormal glucose; 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: [Glycosuria] Onset: 08-26-2021 Episodic Disorders of lipid metabolism (6 sources) Hyperlipidemia, unspecified; 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: [Hyperlipidemia] Onset: 08-31-2021 01-21-2024 Chronic Essential hypertension (7 sources) Essential (primary) hypertension; 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: [Hypertensive disorder] Onset: 06-20-2017 01-21-2024 Chronic Heart valve disorders (9 sources) Nonrheumatic mitral (valve) insufficiency; 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: [Nonrheumatic aortic (valve) stenosis] Onset: 2017 Chronic Hodgkin`s disease (1 source) Nodular sclerosis Hodgkin lymphoma, 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; 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: [Hodgkin disease, nodular sclerosis of lymph nodes of upper limb] Onset: 06-03-2024 Chronic Hodgkin`s disease (1 source) Hodgkin`s disease 06-03-2024 Hyperplasia of prostate (4 sources) Benign prostatic hypertrophy with outflow obstruction; 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: [Benign prostatic hyperplasia with lower urinary tract symptoms] Onset: 01-21-2024 Chronic Lymphadenitis (3 sources) Localized enlarged lymph nodes; 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: [Localized enlarged lymph nodes] Onset: 04-30-2024 Episodic Non-Hodgkin`s lymphoma (2 sources) Non-Hodgkin lymphoma, unspecified, 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; 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: [Non-Hodgkin's lymphoma (clinical)] Onset: 05-29-2024 05-27-2024 Chronic Other and unspecified benign neoplasm (2 sources) 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 Comment on above: Outside Source Comme nt: Comment on above: removed- right ear Other circulatory disease (1 source) Difficult venous access 06-03-2024 Episodic Other diseases of bladder and urethra (1 source) Detrusor overactivity; 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: [Overactive bladder] Onset: 01-21-2024 Chronic Other diseases of bladder and urethra (3 sources) Overactive bladder 01-21-2024 Chronic Other diseases of veins and lymphatics (1 source) Disorder of vein; 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: [Other specified disorders of veins] Onset: 06-03-2024 Episodic Other ear and sense organ disorders (1 source) Sudden idiopathic hearing loss; 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: [Sudden idiopathic hearing loss, left ear] 05-26-2024 Episodic Other lower respiratory disease (3 sources) Shortness of breath; 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: [SHORTNESS OF BREATH] Onset: 2017 Episodic Other nervous system disorders (1 source) H/O: brain disorder 01-21-2024 Episodic Pulmonary heart disease (2 sources) Pulmonary arterial hypertension 04-25-2024 Chronic Residual codes; unclassified (3 sources) Sleep apnea 01-21-2024 Chronic Respiratory failure; [...] / UNK(Unknown) Onset: 2017 Unclassified (1 source) oysterman (current) use of oral hypoglycemic drugs; 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: [LONGTERM (CURRENT) USE OF ORAL 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 DRUGS] Onset: 2017 Unclassified (3 sources) Patient encounter status 01-21-2024 Viral infection (1 source) COVID-19; 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: [COVID-19] Onset: 12-08-2020 Past or Other Problems Problem Classification Problem Date Documented Da te Episodic/Chronic Other aftercare (1 source) oysterman (current) use of aspirin; 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: [LONGTERM (CURRENT) USE OF ASPIRIN] Onset: 2017 Episodic Other lower respiratory disease (3 sources) Cough; 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: [COUGH] Onset: 12-06-2020 Episodic Results Test Name Value Interpretation Reference Range Facility ISTAT XRay CREon 05-29-2024 ISTAT GFR > 60.0 Normal [facility] Comment on above: Result Comment: PERF ORMED BY: [place] [address] PATHOLOGIST INSTRUMENT ASSEMBLY SUPERVISOR KASSI WATERS M.D. Performed By: #### I SCRE #### [address] MR head/brain wo/w conon MR head/brain wo/w con [facility] [place] [address] [place], [place] [id number] MRI Report Signed Patient: Hoang Tran MR#: [id number] : 1955 Acct:[id number] Age/Sex: 68 / M ADM Date: 05/29/24 Loc: MR Room: Type: [facility] Attending Dr: Sonia Donnelly MD Copies to: Sonia Donnelly MD Ordering Provider: Sonia Donnelly MD Date of Service: 05/29/24 MR/MR head/brain wo/w con: C85.90, C85.94, C85.11 MR head/brain wo/w con 05/29/2024 9:08 AM SIGN AND SYMPTOMS: Lymphoma, hearing loss, history of acoustic neuroma PROTOCOL: Multiplanar multisequence MR images of the brain were obtained with and without IV contrast CONTRAST: 15 mL of intravenous ProHance COMPARISON: 04/21/2024 FINDINGS: Extra axial spaces: There is age-related cortical atrophy. Hemorrhage: None. Ventricular system: Within normal limits. Basal cisterns: Within normal limits and not effaced. Cerebral parenchyma: Periventricular and subcortical white matter T2 and FLAIR hyperintense signal is noted consistent with chronic microvascular ischemic change. Midline shift: None.. Cerebellum: Within normal limits. Brainstem: Within normal limits. Cerebellopontine angles: No mass or abnormal enhancement. Internal auditory canals: There is enhancement along the right internal auditory canal extending to the apex. Temporal bone structures: There is enhancement along the basal turn of the cochlea and along the right facial nerve involving the labyrinthian and geniculate segments. OTHER: Calvarium: Normal marrow signal. Vascular system: Satisfactory flow voids within the anterior and posterior circulation. There is a developmental venous anomaly in the right cerebellar hemisphere. Visualized Paranasal sinuses: There is a small right-sided mastoid effusion. There is evidence of previous right-sided partial mastoidectomy. Visualized Orbits: Within normal limits. Visualized upper cervical spine: Degenerative changes are noted in the visualized cervical spine. Please see separately dictated cervical spine MRI for further detail. Sella and skull base: Within normal limits. MR/MR head/brain wo/w con IMPRESSION: There is enhancement along the right internal auditory canal extending to the apex. This may represent residual schwannoma. There is enhancement along the basal turn of the cochlea and along the right facial nerve involving the labyrinthian and geniculate segments. This may be postoperative or may represent residual schwannoma. This is unchanged. There is a small right-sided mastoid effusion without evidence of previous partial mastoidectomy. Chronic microvascular ischemic changes are redemonstrated. There is age-related cortical atrophy. Impression dictated by: Alexis Patel M.D.05/29/2024 1:38 PM Dictation Location: [place] [address] Transcribed By: ANDRIA 05/29/24 1338 Dictated By: Alexis Patel II, MD 05/29/24 1325 Signed By: 05/29/24 1338 Normal [facility] No Panel InformationOrdered By: Sonia Donnelly on 05-29-2024 Bedside Estimated GFR (eGFR) > 60.0 [facility] Whole blood creatinine measu rementOrdered By: Sonia Donnelly on 05-29-2024 Creatinine [Mass/Vol] 0.8 mg/dL Normal 0.6-1.3 [facility] Comment on above: ER/ESD physician is notified/shown all ISTAT results.Critical values may be confirmed by laboratory testing ifdeemed necessary by ER attending doctor. Result Comment: ER/E SD physician is notified/shown all ISTAT results. Critical values may be confirmed by laboratory testing if deemed necessary by ER attending doctor. Performed By: #### I SCRE #### [address] XR pre/post mri xrayon 05-29 XR pre/post mri xray [facility] [place] [address] MRI Report Signed Patient: Hoang Tran MR#: [id number] : 1955 Acct:[id number] Age/Sex: 68 / M ADM Date: 05/29/24 Loc: MR Room: Type: [facility] Attending Dr: Sonia Donnelly MD Copies to: Sonia Donnelly MD Ordering Provider: Sonia Donnelly MD Date of Service: 05/29/24 MR/MR cervical spine wo/w con: C85.90, C85.94, C85.11 ([id number]) XR/XR pre/post mri xray: C85.90, C85.94, C85.11 MR cervical spine wo/w con, XR pre/post mri xray 05/29/2024 10:43 AM SIGNS AND SYMPTOMS: Lymphoma, history of non-Hodgkin's lymphoma, neck pain PROTOCOL: Multiplanar multisequence MR images of the cervical spine were obtained with and without IV contrast. Lateral and bilateral oblique radiographs of the cervical spine. CONTRAST: 15 mL of intravenous ProHance COMPARISON: None. FINDINGS: Radiographs of the cervical spine. There is straightening and mild reversal of the normal cervical lordosis. There is autofusion across the C3-C4 vertebral disc. There is severe disc height loss at C4-C5, C5-6, and C6-C7 with accompanying anterior osteophyte formation. There is facet hypertrophy. MRI cervical spine: Disc height loss and alignment is as noted. There is Modic type I endplate edema at C4-C5 and C6- C7. The cord is normal in signal. No epidural or paraspinous fluid collection is appreciated. The visualized paraspinous soft tissues are within normal limits. The prevertebral soft tissues are within normal limits. There is a small right-sided mastoid effusion. There is no abnormal postcontrast enhancement. At C2-C3: There is a broad-based disc bulge with facet and operative injection change contributing to mild bilateral neural foraminal narrowing. No spinal canal narrowing. At C3-C4: There is a broad-based disc bulge with right greater than left uncovertebral joint spurring and facet hypertrophy. There is severe right and moderate to severe left neural foraminal narrowing. There is moderate spinal canal narrowing. At C4-C5: There is a circumferential disc bulge with facet hypertrophy and operative joint spurring. There is severe bilateral neural foraminal narrowing with moderate to severe spinal canal stenosis. At C5-C6: There is a broad-based disc bulge with facet and operative joint degenerative change contributing to moderate left and severe right neural foraminal narrowing with moderate spinal canal narrowing. At C6-C7: There is a broad-based disc bulge with facet and operative injection change. There is moderate bilateral neural foraminal narrowing and moderate spinal canal narrowing. At C7-T1: There is a normal disc, central canal, and neural foramen. MR/MR cervical spine wo/w con IMPRESSION: No cord compression or cord signal abnormality. Multilevel degenerative changes noted contributing to spinal canal and neural foraminal stenosis as above. There is straightening and mild reversal of the normal cervical lordosis. No abnormal postcontrast enhancement. Impression dictated by: Alexis Patel M.D.05/29/2024 1:00 PM Dictation Location: [place] [address] Transcribed By: ANDRIA 05/29/24 1300 Dictated By: Alexis Patel II, MD 05/29/24 1254 Signed By: 05/29/24 1300 Normal [facility] Ambulatory Visit Summaryon 0 04-30-2024 Ambulatory Visit [...] ELLIS, Moody Aranda Where: [facility] [address] [address]- Medications What How Much When Instructions Unchanged [...] for choosing us for your care. Normal [facility] General Surgery Office/Clini c Noteon 04-30-2024 General Surgery Office/Clinic Note General Surgery Office/Clinic Note Chief Complaint post operative follow up HPI Staff 7 day post operative follow up post incisional biopsy right axilla adenopathy completed while inpatient at [facility]. Denies soreness, bleeding or drainage. History [...] 04/30/2024 Family History Heart disease: Mother. Normal [facility] Comment on above: Result Comment: Elec tronically Signed By: AIRAM ELLIS, Jassi Nazario.br\Date and Time Signed: 04/30/24 14:51 EDT Robert 04-23-2024 L Specimen: [id number] R eceived: 04/23/24 Status: MERNA Rivera Num: [id number] Spec Type: Surgical Subm Dr: Jassi Clemens MD FACS Tissues: A Lymph Node - Biopsy (Needle or Incisional) (R AXILLARY LYMPH NODE BX) Procedures: CD45/2, HE/4, Gross/Micro L4, AE1-AE3, BCL-2, BCL-6, CD10, CD20, CD23, CD3, CD30/2, CD5, PAX5/2 Age/ Patient Sex Location Account Attending Physician Hoang Tran 68/M LABELL [id number] Jassi Clemens MD FACS SPEC NUM: [id number] RECD: 04/23/24 STATUS: MERNA RIVERA NUM: [id number] RANJITH: 04/23/24-[address]: Jassi Clemens MD FACS ENTERED: 04/23/[address] [facility] [address]: SPEC TYPE: Surgical DEPT: LUANA MOYER ENTERED BY: [id number] RECV BY: [id number] ORDERED: CD45/2, HE/4, Gross/Micro L4, AE1-AE3, BCL-2, BCL-6, CD10, CD20, CD23, CD3, CD30/2, CD5, PAX5/2 ORDERED: CD45/2, HE/4, Gross/Micro L4, AE1-AE3, BCL-2, BCL-6, CD10, CD20, CD23, CD3, CD30/2, CD5, PAX5/2, USS/7 Supplemental Report Addendum 3 Entered: 05/15/24-1014 Supplemental for addended consultation report from [facility] Addendum -Repeat MUM1 immunostain does in fact stain the focal large atypical cells -No change in final diagnosis Addendum Signed (signature on file) Chin-Gama Lauren MD 05/15/24 1014 -- Addendum 2 Entered: 05/14/247867 Supplemental for findings of consultation report from [facility]: -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 -- Specimen: [id number] Received: 04/23/24 Status: MERNA Rivera Num: [id number] Spec Type: Surgical Subm Dr: Jassi Clemens MD FACS Tissues: A Lymph Node - Biopsy (Needle or Incisional) (R AXILLARY LYMPH NODE BX) Procedures: CD45/2, HE/4, Gross/Micro L4, AE1-AE3, BCL-2, BCL-6, CD10, CD20, CD23, CD3, CD30/2, CD5, PAX5/2 -- Patient: Hoang Tran [id number] (Continued) -- Specimen: [id number] Received: 04/23/24 (Continued) Supplemental Report (Continued) Signed (signature on file) Trinity Lauren MD 05/01/241650 -- Specimen: [id number] Received: 04/23/24 Status: MERNA Rivera Num: [id number] Spec Type: Surgical Subm Dr: Jassi Clemens MD FACS Tissues: A Lymph Node - Biopsy (Needle or Incisional) (R AXILLARY LYMPH NODE BX) Procedures: CD45/2, HE/4, Gross/Micro L4, AE1-AE3, BCL-2, BCL-6, CD10, CD20, CD23, CD3, CD30/2, CD5, PAX5/2 -- Patient: Hoang Tran [id number] (Continued) -- Specimen: [id number] Received: 04/23/24 (Continued) Supplemental Report (Continued) lymphocytes -See comment Addendum Signed (signature on file)Kavon Lauren MD 05/14/24 1437 -- Addendum 1 Entered: 05/07/24 Supplemental for findings [facility] -No significant lymphoid immunophenotypic abnormalities detected Addendum Signed (signature on file)Kavon Lauren MD 05/07/24 0944 -- Pathological Diagnosis Right axillary lymph node, excisional [...] contributory. -The concurrent flow cytometry study from [facility] is no significant lymphoid (more content not included)... Normal [facility] Robert 04-11-2024 L Specimen: [id number] R eceived: 04/14/24 Status: [facility] Re Num: [id number] Spec Type: Surgical Subm Dr: Hoang Strange MD Tissues: A Lymph Node - Biopsy (Needle or Incisional) (R AXILLA LYMPH NODE) B Gross Only (LYMPH NODE) Procedures: HE/2, Gross/Micro L4, Level 1 Gross Age/ Patient Sex Location Account Attending Physician Hoang Tran 68/M LABELL [id number] Hoang Strange MD SPEC NUM: [id number] RECD: 04/14/24 STATUS: [facility] RE NUM: [id number] RANJITH: 04/11/24- SUBM DR: Hoang Strange MD ENTERED: 04/14/[address] [facility] [address]: Gregg Flores SPEC TYPE: Surgical DEPT: LUANA MOYER ENTERED BY: [id number] RECV BY: [id number] ORDERED: HE/2, Gross/Micro L4, Level 1 Gross ORDERED: HE/2, Gross/Micro L4, Level 1 Gross Supplemental Report Addendum 2 Entered: 04/21/246 Supplemental for findings of consultation report from [facility]: A, -Extremity limited specimen compatible with malignancy, see comment Addendum Signed (signature on file) Trinity Lauren MD 04/21/24 1307 -- Addendum 1 Entered: 04/18/24-6200 Supplemental for findings of flow cytometry report from [facility]: -Tests canceled -This test is canceled due to poor sample quality / poor viability -- Specimen: [id number] Received: 04/14/24-1044 Status: MERNA Rivera Num: [id number] Spec Type: Surgical Subm Dr: Hoang Strange MD Tissues: A Lymph Node - Biopsy (Needle or Incisional) (R AXILLA LYMPH NODE) B Gross Only (LYMPH NODE) Procedures: HE/2, Gross/Micro L4, Level 1 Gross -- Patient: Hoang Tran [id number] (Continued) -- Specimen: [id number] Received: 04/14/24 (Continued) Supplemental Report (Continued) Signed (signature on file) Trinity Lauren MD 04/17/24 1127 -- Specimen: [id number] Received: 04/14/24 Status: TAMIALakshmi Miguel Num: [id number] Spec Type: Surgical Subm Dr: Hoang Strange MD Tissues: A Lymph Node - Biopsy (Needle or Incisional) (R AXILLA LYMPH NODE) B Gross Only (LYMPH NODE) Procedures: HE/2, Gross/Micro L4, Level 1 Gross -- Patient: Hoang Tran [id number] (Continued) -- Specimen: [id number] Received: 04/14/24-1045 (Continued) Supplemental Report (Continued) Addendum Signed (signature on file) Trinity Lauren MD 04/18/24 1734 -- Pathological Diagnosis A, right axillary lymph node [...] is sent to an outside facility. DM -- Specimen: [id number] Received: 04/14/24 Status: MERNA Rivera Num: [id number] Spec Type: Surgical Subm Dr: Hoang Strange MD Tissues: A Lymph Node - Biopsy (Needle or Incisio (more content not included)... Normal [facility] Office Visiton 03-28-2024 Follow-up visit [id number] Allen Tran W 1955 M Date Provider Department Center 03/28/2024 JEROD BANKS Family History Problem Relation Age of Onset Coronary artery disease Mother Family Status - Relation Status Age at Mother Level of Service:50596 PA OFFICE/OUTPATIENT ESTABLISHED MOD MDM 30 MIN Normal [facility] Office Visiton 02-25-2024 Follow-up visit [id number] Allen Tran W 1955 M Date Provider Department Center 02/25/2024 JEROD BANKS Family History Problem Relation Age of Onset Coronary artery disease Mother Family Status - Relation Status Age at Mother Level of Service:00592 PA OFFICE/OUTPATIENT NEW MODERATE MDM 45 MINUTES Normal [facility] Insurance Correspondenceon 0 01-30-2024 Insurance Correspondence [id number] Normal [facility] Consent for Procedure/Surger yon 01-22-2024 Consent for Procedure/Surgery [id number]#[id number] Normal [facility] Physician Referralon 024 Physician Referral [id number] Normal [facility] Screenson 01-22-2024 Screens [id number] Normal [facility] Ambulatory Visit Summaryon [...] When: Where: [facility] [address], [place] [address]- Medications What When Instructions Unchanged amlodipine (amLODIPine [...] urine (ur (more content not included)... Normal [facility] Patient Educationon 01-21-20 Patient Education Urology [...] Follow these instructions at home: ? Take [id number] and prescription medicines only as told by [...] the medicine (more content not included)... Normal [facility] INSULINon 08-27-2021 Insulin 19.2 uIU/mL Normal 2.6-24.9 [facility] Comment on above: Performed By: #### I NSULIN #### [facility] [address] [place] [address] Dr. Forrest Lauren CBC AUTO DIFFon 08-26-2021 BASO # 0.1 103/ul Normal 0.0-0.1 [facility] Comment on above: Performed By: #### P SASC #### [facility] [address] [place] [address] Dr. Forrest Lauren Basophils/100 WBC (Bld) 0.8 % Normal 0.2-2.0 [facility] Comment on above: Performed By: #### P SASC #### [facility] [address] [place] [address] Dr. Forrest Lauren EO # 0.4 103/ul Normal 0.0-0.7 [facility] Comment on above: Performed By: #### P SASC #### [facility] [address] [place] [address] Dr. Forrest Lauren Eosinophils/100 WBC (Bld) 4.8 % Normal 0.9-7.0 [facility] Comment on above: Performed By: #### P SASC #### [facility] [address] [place] [address] Dr. Forrest Lauren Erythrocyte distribution width (RBC) [Ratio] 12.7 % Normal 11.0-15.0 [facility] Comment on above: Performed By: #### P SASC #### [facility] [address] [place] [address] Dr. Forrest Lauren Hematocrit (Bld) [Volume fraction] 48.3 % Normal 42.0-54.0 [facility] Comment on above: Performed By: #### P SASC #### [facility] [address] [place] [address] Dr. Forrest Lauren Hemoglobin (Bld) [Mass/Vol] 16.4 g/dL Normal 14.0-18.0 [facility] Comment on above: Performed By: #### P SASC #### [facility] [address] [place] [address] Dr. Forrest Lauren IG # 0.05 10e3/ul Critically high 0.00-0.03 [facility] Comment on above: Performed By: #### P SASC #### [facility] [address] [place] [address] Dr. Forrest Lauren IG % 0.6 % Critically high 0.0-0.5 [facility] Comment on above: Performed By: #### P SASC #### [facility] [address] [place] [address] Dr. Forrest Lauren LYMPH # 2.0 103/ul Normal 1.2-3.8 [facility] Comment on above: Performed By: #### P SASC #### [facility] [address] [place] [address] Dr. Forrest Lauren Lymphocytes/100 WBC (Bld) 22.6 % Normal 20.5-60.0 [facility] Comment on above: Performed By: #### P SASC #### [facility] [address] [place] [address] Dr. Forrest Lauren MANUAL DIFF REQ NO Normal [facility] Comment on above: Performed By: #### P SASC #### [facility] [address] [place] [address] Dr. Forrest Lauren MCH (RBC) [Entitic mass] 29.8 pg Normal 25.9-34.0 [facility] Comment on above: Performed By: #### P SASC #### [facility] [address] [place] [address] Dr. Forrest Lauren MCHC (RBC) [Mass/Vol] 34.0 g/dL Normal 29.9-35.2 [facility] Comment on above: Performed By: #### P SASC #### [facility] [address] [address] [address] Forrest Lauren MCV (RBC) [Entitic vol] 87.8 fL Normal 80.0-94.0 [facility] Comment on above: Performed By: #### P SASC #### [facility] [address] [address] [address] Forrest Lauren MONO # 0.7 103/ul Normal 0.3-0.8 [facility] Comment on above: Performed By: #### P SASC #### [facility] [address] [address] [address] Forrest Lauren Monocytes/100 WBC (Bld) 8.0 % Normal 1.7-12.0 [facility] Comment on above: Performed By: #### P SASC #### [facility] [address] [place] [address] Dr. Forrest Lauren NEUT # 5.7 103/ul Normal 1.4-6.5 [facility] Comment on above: Performed By: #### P SASC #### [facility] [address] [address] [address] Forrest Lauren Neutrophils/100 WBC (Bld) 63.2 % Normal 43.0-75.0 [facility] Comment on above: Performed By: #### P SASC #### [facility] [address] [place] [address] Dr. Forrest Lauren Platelet mean volume (Bld) [Entitic vol] 9.7 fL Normal 9.5-13.5 [facility] Comment on above: Performed By: #### P SASC #### [facility] [address] [place] [address] Dr. Forrest Lauren PLT 242 103/ul Normal 150-450 [facility] Comment on above: Performed By: #### P SASC #### [facility] [address] [address] [address] Forrest Lauren RBC 5.50 106/ul Normal 4.70-6.10 [facility] Comment on above: Performed By: #### P SASC #### [facility] [address] [address] [address] Forrest Lauren WBC 9.0 103/ul Normal 4.0-11.0 [facility] Comment on above: Performed By: #### P SASC #### [facility] [address] [place] [address] Dr. Forrest Lauren GLYCOHEMOGLOBIN A1Con 2021 ADA RECOMMENDATION ADA THERAPEUTIC TARG ET 6.0 - 7.0 ACTION SUGGESTED > 7.0 Normal [facility] Comment on above: Performed By: #### A 1C #### [facility] [address] [place] [address] Dr. Forrest Lauren Glucose [Mass/Vol] 194 mg/dL Normal [facility] Comment on above: Performed By: #### A 1C #### [facility] [address] [place] [address] Dr. Forrest Lauren HbA1c (Bld) [Mass fraction] 8.4 % Critically high <=6.0 [facility] Comment on above: Performed By: #### A 1C #### [facility] [address] [place] [address] Dr. Forrest Lauren LIPID PROFILEon 08-26-2021 CHOL-HDL RATIO NORM SEE BELOW Normal [facility] Comment on above: Result Comment: 3.3 - 4.4 LOW RISK 4.4 - 7.1 AVERAGE RISK 7.1 - 11.0 MODERATE RISK >11.0 HIGH RISK Performed By: #### P SASC #### [facility] [address] [place] [address] Dr. Forrest Lauren Cholesterol [Mass/Vol] 117 mg/dL Normal <=200 [facility] Comment on above: Performed By: #### P SASC #### [facility] [address] [address] [address] Forrest Lauren Cholesterol in HDL [Mass/Vol] 43 mg/dL Normal [facility] Comment on above: Performed By: #### P SASC #### [facility] [address] [place] [address] Dr. Forrest Lauren Cholesterol in LDL [Mass/Vol] 45.6 mg/dL Normal [facility] Comment on above: Performed By: #### P SASC #### [facility] [address] [address] [address] Forrest Lauren Cholesterol.total/C holesterol in HDL [Mass ratio] 2.7 {ratio} Normal [facility] Comment on above: Performed By: #### P SASC #### [facility] [address] [address] [address] Forrest Lauren HDL NORMAL > or = 60 mg/dl - LO W CARDIOVASCULAR RISK <40 mg/dl - HIGH CARDIOVASCULAR RISK Normal [facility] Comment on above: Performed By: #### P SASC #### [facility] [address] [address] [address] Forrest Lauren LDL CALC NORMAL SEE BELOW Normal [facility] Comment on above: Result Comment: <100 mg/dl OPTIMAL 100 - 129 mg/dl NEAR OR ABOVE OPTIMAL 130 - 159 mg/dl BORDERLINE HIGH 160 - 189 mg/dl HIGH >190 mg/dl VERY HIGH Performed By: #### P SASC #### [facility] [address] [place] [address] Dr. Forrest Lauren Triglyceride [Mass/Vol] 142 mg/dL Normal <=150 [facility] Comment on above: Performed By: #### P SASC #### [facility] [address] [place] [address] Dr. Forrest Lauren VLDL CALC 28.4 mg/dL Normal [facility] Comment on above: Performed By: #### P SASC #### [facility] [address] [address] [address] Forrest Lauren PROF 14(COMP METB)on 022 Albumin [Mass/Vol] 4.1 g/dL Normal 3.5-5.0 [facility] Comment on above: Performed By: #### P SASC #### [facility] [address] [place] [address] Dr. Forrest Lauren Albumin/Globulin [Mass ratio] 1.2 {ratio} Normal [facility] Comment on above: Performed By: #### P SASC #### [facility] [address] [place], [place] [address] Dr. Forrest Lauren ALP [Catalytic activity/Vol] 82 U/L Normal 38-126 [facility] Comment on above: Performed By: #### P SASC #### [facility] [address] [place] [address] Dr. Forrest Lauren ALT [Catalytic activity/Vol] 38 U/L Normal 21-72 [facility] Comment on above: Performed By: #### P SASC #### [facility] [address] [address] [address] Forrest Lauren Anion gap [Moles/Vol] 12.7 mmol/L Normal [facility] Comment on above: Performed By: #### P SASC #### [facility] [address] [place] [address] Dr. Forrest Lauren AST [Catalytic activity/Vol] 18 U/L Normal 17-59 [facility] Comment on above: Performed By: #### P SASC #### [facility] [address] [place] [address] Dr. Forrest Lauren Bilirubin [Mass/Vol] 1.2 mg/dL Normal 0.2-1.3 [facility] Comment on above: Performed By: #### P SASC #### [facility] [address] [place] [address] Dr. Forrest Lauren Calcium [Mass/Vol] 9.7 mg/dL Normal 8.4-10.2 [facility] Comment on above: Performed By: #### P SASC #### [facility] [address] [place] [address] Dr. Forrest Lauren Chloride [Moles/Vol] 102 mmol/L Normal 98-107 [facility] Comment on above: Performed By: #### P SASC #### [facility] [address] [place] [address] Dr. Forrest Lauren CO2 [Moles/Vol] 30.6 mmol/L Critically high 22.0-30.0 [facility] Comment on above: Performed By: #### P SASC #### [facility] [address] [place] [address] Dr. Forrest Lauren Creatinine [Mass/Vol] 1.09 mg/dL Normal 0.66-1.25 [facility] Comment on above: Performed By: #### P SASC #### [facility] [address] [address] [address] Forrest Lauren EGFR-AF SRI LANKAN >60 Normal >=60 [facility] Comment on above: Performed By: #### P SASC #### [facility] [address] [address] [address] Forrest Lauren EGFR-NON AF SRI LANKAN >60 Normal >=60 [facility] Comment on above: Performed By: #### P SASC #### [facility] [address] [address] [address] Forrest Lauren Globulin (S) [Mass/Vol] 3.4 g/dL Normal [facility] Comment on above: Performed By: #### P SASC #### [facility] [address] [address] [address] Forrest Lauren Glucose [Mass/Vol] 238 mg/dL Critically high 74-106 [facility] Comment on above: Performed By: #### P SASC #### [facility] [address] [address] [address] Forrest Lauren Potassium [Moles/Vol] 4.3 mmol/L Normal 3.4-5.0 [facility] Comment on above: Performed By: #### P SASC #### [facility] [address] [address] [address] Forrest Lauren Protein [Mass/Vol] 7.5 g/dL Normal 6.1-8.2 [facility] Comment on above: Performed By: #### P SASC #### [facility] [address] [address] [address] Forrest Lauren Sodium [Moles/Vol] 141 mmol/L Normal 137-145 [facility] Comment on above: Performed By: #### P SASC #### [facility] [address] [address] [address] Forrest Lauren Urea nitrogen [Mass/Vol] 20.0 mg/dL Normal 9.0-20.0 [facility] Comment on above: Performed By: #### P SASC #### [facility] [address] [address] [address] Forrest Lauren Urea nitrogen/Creatinine [Mass ratio] 18.3 mg/mg Normal [facility] Comment on above: Performed By: #### P SASC #### [facility] [address] [place] [address] Dr. Forrest Lauren URIC ACID SERUMon 08-26-2021 Urate [Mass/Vol] 4.8 mg/dL Normal 3.5-8.5 [facility] Comment on above: Performed By: #### P SASC #### [facility] [address] [place] [address] Dr. Forrest Lauren Covid-19 PCR ([facility])on Sample Type Test performed using RT-PCR from a nasopharyngeal collected specimen. Normal [facility] Comment on above: Performed By: #### P SASC #### [facility] [address] [place] [address] Dr. Forrest Lauren SARS-CoV-2 (COVID-19) RNA MERA+probe Ql (Unsp spec) Detected Abnormal NOT DETECTED [facility] Comment on above: Result Comment: This test is not yet approved or cleared by the [place] FDA. When there are no FDA-approved or cleared tests available, and other criteria are met, FDA can make tests available under an emergency access mechanism called an Emergency Use Authorization (EUA). The EUA for this test is supported by the Epidemiologist of Health and Human Service's (HHS's) declaration [...] used). Performed By: #### P SASC #### [facility] [address] [place] [address] Dr. Forrest Lauren POINT OF CARE GLUCOSEon Glucose [Mass/Vol] 255 mg/dL Critically high 74-106 [facility] Comment on above: Performed By: #### P OCGLUC #### [facility] [address] [place], [place] [address] Matias Evelyn XR CHEST 1 Von 12-07-2020 [...] AMARIS WALKER Date: 2020-12-06 22:04 Normal [facility] INSULINon 10-02-2020 Insulin 16.9 uIU/mL Normal 2.6-24.9 [facility] Comment on above: Performed By: #### P SASC #### [facility] [address] [place] [address] Dr. Forrest Lauren CBC AUTO DIFFon 10-01-2020 BASO # 0.1 103/ul Normal 0.0-0.1 [facility] Comment on above: Performed By: #### C BC #### [facility] [address] [place], [place] [address] Matias Evelyn Basophils/100 WBC (Bld) 0.6 % Normal 0.2-2.0 [facility] Comment on above: Performed By: #### C BC #### [facility] [address] [place] [address] Matias Evelyn EO # 0.4 103/ul Normal 0.0-0.7 [facility] Comment on above: Performed By: #### C BC #### [facility] [address] [place] [address] Matias Evelyn Eosinophils/100 WBC (Bld) 4.2 % Normal 0.9-7.0 [facility] Comment on above: Performed By: #### C BC #### [facility] [address] [place] [address] Matias Rivas Erythrocyte distribution width (RBC) [Ratio] 13.1 % Normal 11.0-15.0 [facility] Comment on above: Performed By: #### C BC #### [facility] [address] [place] [address] Matiaswali Rivas Hematocrit (Bld) [Volume fraction] 50.2 % Normal 42.0-54.0 [facility] Comment on above: Performed By: #### C BC #### [facility] [address] [place] [address] Matias Evelyn Hemoglobin (Bld) [Mass/Vol] 16.6 g/dL Normal 14.0-18.0 [facility] Comment on above: Performed By: #### C BC #### [facility] [address] [place] [address] Matias Evelyn IG # 0.05 10e3/ul Critically high 0.00-0.03 [facility] Comment on above: Performed By: #### C BC #### [facility] [address] [place] [address] Matias Evelyn IG % 0.6 % Critically high 0.0-0.5 [facility] Comment on above: Performed By: #### C BC #### [facility] [address] [place] [address] Matias Evelyn LYMPH # 1.9 103/ul Normal 1.2-3.8 [facility] Comment on above: Performed By: #### C BC #### [facility] [address] [place] [address] Matias Rivas Lymphocytes/100 WBC (Bld) 22.2 % Normal 20.5-60.0 [facility] Comment on above: Performed By: #### C BC #### [facility] [address] [place], [place] [address] Matias Rivas MANUAL DIFF REQ NO Normal [facility] Comment on above: Performed By: #### C BC #### [facility] [address] [place] [address] Matiaswali Rivas MCH (RBC) [Entitic mass] 29.4 pg Normal 25.9-34.0 [facility] Comment on above: Performed By: #### C BC #### [facility] [address] [place], [place] [address] Matias Rivas MCHC (RBC) [Mass/Vol] 33.1 g/dL Normal 29.9-35.2 [facility] Comment on above: Performed By: #### C BC #### [facility] [address] [place], [place] [address] Matiaswali Rivas MCV (RBC) [Entitic vol] 88.8 fL Normal 80.0-94.0 [facility] Comment on above: Performed By: #### C BC #### [facility] [address] [place] [address] Matias Rivas MONO # 0.7 103/ul Normal 0.3-0.8 [facility] Comment on above: Performed By: #### C BC #### [facility] [address] [place] [address] Matias Evelyn Monocytes/100 WBC (Bld) 7.7 % Normal 1.7-12.0 [facility] Comment on above: Performed By: #### C BC #### [facility] [address] [place], [place] [address] Matiaswali Rodasen NEUT # 5.7 103/ul Normal 1.4-6.5 [facility] Comment on above: Performed By: #### C BC #### [facility] [address] [place], [place] [address] Matiaswali Rivas Neutrophils/100 WBC (Bld) 64.7 % Normal 43.0-75.0 [facility] Comment on above: Performed By: #### C BC #### [facility] [address] [place], [place] [address] Matiaswali Rivas Platelet mean volume (Bld) [Entitic vol] 10.4 fL Normal 9.5-13.5 [facility] Comment on above: Performed By: #### C BC #### [facility] [address] [place], [place] [address] Matias Evelyn PLT 243 103/ul Normal 150-450 [facility] Comment on above: Performed By: #### C BC #### [facility] [address] [id number] Matias Evelyn RBC 5.65 106/ul Normal 4.70-6.10 [facility] Comment on above: Performed By: #### C BC #### [facility] [address] [address] Matias Evelyn WBC 8.7 103/ul Normal 4.0-11.0 [facility] Comment on above: Performed By: #### C BC #### [facility] [address] [address] Matiaswali Rivas FREE THYROXINE INDEX T7on FTI 2.11 Normal [facility] Comment on above: Performed By: #### U TARIK, CMP, T7, PSASC, TSH, LIPID #### [facility] [address] [place] [address] Matiaswali Rodasen T3U 34.0 % Normal 23.5-40.5 [facility] Comment on above: Performed By: #### U TARIK, CMP, T7, PSASC, TSH, LIPID #### [facility] [address] [id number] Matiaswali Rivas T4 [Mass/Vol] 6.20 ug/dL Normal 5.53-11.00 [facility] Comment on above: Performed By: #### U TARIK, CMP, T7, PSASC, TSH, LIPID #### [facility] [address] [id number] Matias Rivas GLYCOHEMOGLOBIN A1Con 2020 ADA RECOMMENDATION ADA THERAPEUTIC TARG ET 6.0 - 7.0 ACTION SUGGESTED > 7.0 Normal [facility] Comment on above: Performed By: #### A 1C #### [facility] [address] [place] [address] Matias Evelyn Glucose [Mass/Vol] 266 mg/dL Normal [facility] Comment on above: Performed By: #### A 1C #### [facility] [address] [address] Matiaswali Rodasen HbA1c (Bld) [Mass fraction] 10.9 % Critically high <=6.0 [facility] Comment on above: Performed By: #### A 1C #### [facility] [address] [address] Matias Rivas LIPID PROFILEon 10-01-2020 CHOL-HDL RATIO NORM SEE BELOW Normal [facility] Comment on above: Result Comment: 3.3 - 4.4 LOW RISK 4.4 - 7.1 AVERAGE RISK 7.1 - 11.0 MODERATE RISK >11.0 HIGH RISK Performed By: #### P SASC #### [facility] [address] [address] [address] Forrest Lauren Cholesterol [Mass/Vol] 110 mg/dL Normal <=200 [facility] Comment on above: Performed By: #### P SASC #### [facility] [address] [place] [address] Dr. Forrest Lauren Cholesterol in HDL [Mass/Vol] 36 mg/dL Normal [facility] Comment on above: Performed By: #### P SASC #### [facility] [address] [place] [address] Dr. Forrest Lauren Cholesterol in LDL [Mass/Vol] 36.2 mg/dL Normal [facility] Comment on above: Performed By: #### P SASC #### [facility] [address] [place] [address] Dr. Forrest Lauren Cholesterol.total/C holesterol in HDL [Mass ratio] 3.1 {ratio} Normal [facility] Comment on above: Performed By: #### P SASC #### [facility] [address] [place] [address] Dr. Forrest Lauren HDL NORMAL > or = 60 mg/dl - LO W CARDIOVASCULAR RISK <40 mg/dl - HIGH CARDIOVASCULAR RISK Normal [facility] Comment on above: Performed By: #### P SASC #### [facility] [address] [place] [address] Dr. Forrest Lauren LDL CALC NORMAL SEE BELOW Normal [facility] Comment on above: Result Comment: <100 mg/dl OPTIMAL 100 - 129 mg/dl NEAR OR ABOVE OPTIMAL 130 - 159 mg/dl BORDERLINE HIGH 160 - 189 mg/dl HIGH >190 mg/dl VERY HIGH Performed By: #### P SASC #### [facility] [address] [address] [address] Forrest Lauren Triglyceride [Mass/Vol] 189 mg/dL Critically high <=150 [facility] Comment on above: Performed By: #### P SASC #### [facility] [address] [address] [address] Forrest Lauren VLDL CALC 37.8 mg/dL Normal [facility] Comment on above: Performed By: #### P SASC #### [facility] [address] [address] [address] Forrest Lauren PROF 14(COMP METB)on 021 Albumin [Mass/Vol] 4.1 g/dL Normal 3.5-5.0 [facility] Comment on above: Performed By: #### U TARIK, CMP, T7, PSASC, TSH, LIPID #### [facility] [address] [place] [address] Matias Rivas Albumin/Globulin [Mass ratio] 1.2 {ratio} Normal [facility] Comment on above: Performed By: #### U TARIK, CMP, T7, PSASC, TSH, LIPID #### [facility] [address] [place] [address] Matias Evelyn ALP [Catalytic activity/Vol] 80 U/L Normal 38-126 [facility] Comment on above: Performed By: #### U TARIK, CMP, T7, PSASC, TSH, LIPID #### [facility] [address] [address] Matias Evelyn ALT [Catalytic activity/Vol] 42 U/L Normal 21-72 [facility] Comment on above: Performed By: #### U TARIK, CMP, T7, PSASC, TSH, LIPID #### [facility] [address] [address] Matias Rivas Anion gap [Moles/Vol] 12.3 mmol/L Normal [facility] Comment on above: Performed By: #### U TARIK, CMP, T7, PSASC, TSH, LIPID #### [facility] [address] [address] Matias Evelyn AST [Catalytic activity/Vol] 24 U/L Normal 17-59 [facility] Comment on above: Performed By: #### U TARIK, CMP, T7, PSASC, TSH, LIPID #### [facility] [address] [address] Matias Evelyn Bilirubin [Mass/Vol] 1.3 mg/dL Normal 0.2-1.3 [facility] Comment on above: Performed By: #### U TARIK, CMP, T7, PSASC, TSH, LIPID #### [facility] [address] [place] [address] Matias Evelyn Calcium [Mass/Vol] 9.3 mg/dL Normal 8.4-10.2 [facility] Comment on above: Performed By: #### U TARIK, CMP, T7, PSASC, TSH, LIPID #### [facility] [address] [place] [address] Matias Evelyn Chloride [Moles/Vol] 103 mmol/L Normal 98-107 [facility] Comment on above: Performed By: #### U TARIK, CMP, T7, PSASC, TSH, LIPID #### [facility] [address] [place] [address] Matias Evelyn CO2 [Moles/Vol] 30.0 mmol/L Normal 22.0-30.0 [facility] Comment on above: Performed By: #### U TARIK, CMP, T7, PSASC, TSH, LIPID #### [facility] [address] [place] [address] Matias Evelyn Creatinine [Mass/Vol] 1.20 mg/dL Normal 0.66-1.25 [facility] Comment on above: Performed By: #### U TARIK, CMP, T7, PSASC, TSH, LIPID #### [facility] [address] [place] [address] Matias Evelyn EGFR-AF SRI LANKAN >60 Normal >=60 [facility] Comment on above: Performed By: #### U TARIK, CMP, T7, PSASC, TSH, LIPID #### [facility] [address] [place] [address] Matias Evelyn EGFR-NON AF SRI LANKAN >60 Normal >=60 [facility] Comment on above: Performed By: #### U TARIK, CMP, T7, PSASC, TSH, LIPID #### [facility] [address] [address] Matias Evelyn Globulin (S) [Mass/Vol] 3.5 g/dL Normal [facility] Comment on above: Performed By: #### U TARIK, CMP, T7, PSASC, TSH, LIPID #### [facility] [address] [address] Matias Evelyn Glucose [Mass/Vol] 269 mg/dL Critically high 74-106 [facility] Comment on above: Performed By: #### U TARIK, CMP, T7, PSASC, TSH, LIPID #### [facility] [address] [address] Matias Evelyn Potassium [Moles/Vol] 4.3 mmol/L Normal 3.4-5.0 [facility] Comment on above: Performed By: #### U TARIK, CMP, T7, PSASC, TSH, LIPID #### [facility] [address] [address] Matias Evelyn Protein [Mass/Vol] 7.6 g/dL Normal 6.1-8.2 [facility] Comment on above: Performed By: #### U TARIK, CMP, T7, PSASC, TSH, LIPID #### [facility] [address] [address] Matias Evelyn Sodium [Moles/Vol] 141 mmol/L Normal 137-145 [facility] Comment on above: Performed By: #### U TARIK, CMP, T7, PSASC, TSH, LIPID #### [facility] [address] [address] Matias Evelyn Urea nitrogen [Mass/Vol] 17.0 mg/dL Normal 9.0-20.0 [facility] Comment on above: Performed By: #### U TARIK, CMP, T7, PSASC, TSH, LIPID #### [facility] [address] [address] Matias Evelyn Urea nitrogen/Creatinine [Mass ratio] 14.2 mg/mg Normal [facility] Comment on above: Performed By: #### U TARIK, CMP, T7, PSASC, TSH, LIPID #### [facility] [address], [place] [address] Matias Rivas TSHon 10-01-2020 TSH 1.574 uIU/mL Normal 0.470-4.68 0 [facility] Comment on above: Performed By: #### P SASC #### [facility] [address] [address] [address] Forrest Lauren TSH RANGE SEE BELOW Normal [facility] Comment on above: Result Comment: <0.3 4 UIU/ml HYPERTHYROID 0.34-5.60 UIU/ml EUTHYROID >5.60 UIU/ml HYPOTHYROID Performed By: #### P SASC #### [facility] [address] [address] [address] Forrest Lauren URIC ACID SERUMon 10-01-2020 Urate [Mass/Vol] 4.8 mg/dL Normal 3.5-8.5 [facility] Comment on above: Performed By: #### P SASC #### [facility] [address] [address] [address] Forrest Lauren Cardiovascular Lab Reporton 08-03-2017 Cardiovascular Lab Report [facility] [id number] Physician: Jerod Miller M.D.Medicine Service Date: 2017Division of Birthdate: 6Cardiology Room #: CC[facility]ovascularServicesUnivers[facility] [address] [place], [place] [address] Fax Cardiovascular Laboratory ReportINDICATION: Hoang Tran is [...] the right internal jugular vein and a 6-Sao Tomean x 11cm sheath was placed. A 6-[place]an Griffith catheter was used for right heartcatheterization with measurement of pressures and calculation of cardiacoutput using the estimated Luke method. Griffith catheter was removed.Using ultrasound guidance and micropuncture technique, access was obtainedin the left radial artery and a 6-S[place] Tomean x 11 cm Hydrophilic sheath wasadvanced. Verapamil [...] 08/02/2017/02:42 P/Jerod Manuel M.D.Date Trans: 08/03/2017 11:29 A/[id number]: Yfn Mata D.O. [address] [place] [address] [facility] Vital Signs Date Time Vital Sign Value Performing Clinician Paulai devorah 06-03-2024 09:54-0400 Diastolic blood pressure 68 mm[Hg] Jassi CLEMENS [facility] 06-03-2024 09:54-0400 Heart rate 105 /min Jassi CLEMENS [facility] 06-03-2024 09:54-0400 Respiratory rate 16 /min Jassi CLEMENS [facility] 06-03-2024 09:54-0400 Systolic blood pressure 103 mm[Hg] Jassi CLEMENS [facility] 05-29-2024 06:42-0400 Body height 190.5 cm DO Selftrade Work Phone: [facility] 05-29-2024 06:42-0400 Body weight 78.47 kg DO Selftrade Work Phone: [facility] 01-21-2024 11:44-0400 Blood Pressure Location Moody POP [facility] 01-21-2024 11:44-0400 Diastolic blood pressure 72 mm[Hg] Moody POP [facility] 01-21-2024 11:44-0400 Heart rate 70 /min Moody POP [facility] 01-21-2024 11:44-0400 Respiratory rate 16 /min Moody POP [facility] 01-21-2024 11:44-0400 Systolic blood pressure 108 mm[Hg] Moody POP [facility] Encounters Encounter Date Encounter Type Care Provider Facility Start: 06-09-2024 ambulatory Moody POP Facili ty:[facility] [place] Start: 06-03-2024 ambulatory Jassi R NILL Facility :[facility] Start: 06-03-2024 ambulatory Jassi R NILL Facility :[facility] Start: 06-03-2024 End: 06-03-2024 Patient encounter procedure Jassi R NILL [facility] [place] Start: 05-29-2024 End: 05-29-2024 Patient encounter procedure DO González Kuns Work Phone: [facility] [place] Work Phone: Start: 05-29-2024 End: 05-29-2024 ambulatory DO González Kuns Work Phone: [facility] Work Phone: Start: 05-26-2024 End: 05-26-2024 Bamboo flowsheet Yanna Herbert CCC-A Work Phone: [facility] Start: 05-26-2024 End: 05-26-2024 Bamboo flowsheet Yanna Herbert CCC-A Work Phone: [facility] Start: 05-26-2024 End: 05-26-2024 Clinical Support Yanna Oneyda Herbert CCC-A Work Phone: [facility] Comment on above: 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) Start: 04-30-2024 End: 04-30-2024 ambulatory Jassi CLEMENS Facility:[facility] Start: 04-30-2024 End: 04-30-2024 Patient encounter procedure Jassi CLEMENS [facility] [place] Start: 04-28-2024 ambulatory Moodyarnol POP Facility :[facility] Start: 04-23-2024 End: 04-23-2024 ambulatory DO González Kuns Work Phone: [facility] Work Phone: Start: 04-23-2024 End: 04-23-2024 Departed Referred DO González Kuns Work Phone: [facility] Start: 04-23-2024 ambulatory Moodyarnol POP Facility : [place] Start: 04-22-2024 End: 04-23-2024 ambulatory Jassi CLEMENS Facility:[id number] Start: 04-21-2024 Non-patient / Non-visit DO Felipa tt Kuns Work Phone: [facility] Work Phone: Start: 04-11-2024 End: 04-11-2024 ambulatory DO González Kuns Work Phone: [facility] Work Phone: Start: 04-11-2024 End: 04-11-2024 Departed Referred DO González Kuns Work Phone: [facility] [place] [facility] Start: 03-28-2024 End: 03-28-2024 ambulatory [facility] Start: 02-25-2024 End: 02-25-2024 ambulatory [facility] Start: 02-11-2024 End: 02-11-2024 ambulatory Moodyarnol POP Facility:[id number] Start: 01-21-2024 End: 01-21-2024 ambulatory AILIN GREEN Facility:[facility] Start: 01-21-2024 End: 01-21-2024 Patient encounter procedure Moody POP [facility] Start: 09-12-2023 ambulatory Moody DONN Facility :[facility] [place] Start: 08-26-2021 End: 08-26-2021 ambulatory AILIN BAKER Facility:[facility] Start: 02-23-2021 ambulatory AILIN BAKER Facility:[facility] Start: 12-06-2020 End: 12-07-2020 ambulatory ILNA TODD Facility:[facility] Start: 10-07-2020 Encounter for genera l adult medical examination without abnormal findings AILIN BAKER [facility] Start: 10-01-2020 End: 10-02-2020 ambulatory AILIN BAKER Facility:[facility] Start: 10-01-2020 End: 10-02-2020 Encounter for general adult medical examination without abnormal findings AILIN BAKER Facility:[facility] Start: 2017 End: 08-03-2017 Ambulatory PROVIDER UNKNOWN [facility] Start: 07-24-2017 End: 07-25-2017 Ambulatory DEFAULT PHYSICIAN [facility] Start: 07-19-2017 End: 07-20-2017 Ambulatory DEFAULT PHYSICIAN [facility] Start: 06-18-2017 End: 06-19-2017 Ambulatory DEFAULT PHYSICIAN [facility] Procedures Date Procedure Procedure Detail Performing Clinician Start: 05-29-2024 XR pre/post mri xray DO González Moon Work Phone: Start: 05-29-2024 MRI of cervical spin e with contrast DO González Kuns Work Phone: Start: 05-29-2024 MRI of head DO González call Work Phone: Start: 04-23-2024 Incisional biopsy Sudhir CLEMENS Start: 08-26-2021 PSA screening AILIN KHAN Comment on above: Performed By: #### P SASC #### [facility] [address], [place] [address] Dr. Forrest Lauren Start: 10-01-2020 PSA screening AILIN KHAN Comment on above: Performed By: #### U TARIK, CMP, T7, PSASC, TSH, LIPID #### [facility] [address], [place] [address] Matias Rivas Start: 08-06-2013 Colonoscopy Moody ASHER Start: 08-06-2004 Neoplasm of brain (disorder) Moody POP Back structure, excl uding neck (body structure) Moody POP Removal of acoustic neuroma Jassi CLEMENS Spinal arthrodesis Jassi INFANTE Tonsillectomy Moody POP Plan of Treatment Date Care Activity Detail Author Start: 06-16-2024 End: 06-16-2024 Patient encounter procedure 06/16/2024 3:00 PM EST Office Visit [facility] [address] [place] [id number] [facility] Start: 06-05-2024 End: 06-05-2024 Patient encounter procedure 06/05/2024 11:00 AM EDT Office Visit [facility] [address] [phone] Lucas Arenas, [address] [place] [address] [facility] Auditory function tests Auditory function tests Audiology Routine 05/26/2024 1:35 PM EDT [facility] Work Phone: Payers Date Payer Category Payer Medicare (Managed Care) [facility] [id number] 2023 Medicare [id number] 1958 [facility] [id number] 1958 Medicare [id number] 1958 Self-pay 1955 Unknown [id number] [id number]. 593 1956 Unknown [id number] 2.16.840.1.202879.3.579.2. 593 1956 Unknown [id number] 2.16.840.1.106806.3.579.2. 593 1956 Unknown [id number] 2.16.840.1.150731.3.579.2. 593 1956 Unknown [id number] 2.16.840.1.742385.3.579.2. 1259 1956 Unknown [id number] 2.16.840.1.613270.3.579.2. 727 1956 Unknown [id number] 2.16.840.1.324792.3.579.2. 727 1956 Unknown [id number] 2.16.840.1.940679.3.579.2. 727 1956 Unknown [id number] 2.16.840.1.147556.3.579.2. 727 1956 Unknown [id number] 2.16.840.1.031425.3.579.2. 727 1956 Unknown [id number] 2.16.840.1.545804.3.579.2. 727 1956 Unknown [id number] 2.16.840.1.032066.3.579.2. 727 Private Health Insurance [facility] [id number] Unknown Unknown [place] BC/BS [id number] Unknown [id number] 2.16.840.1.761573.3.579.2. 531 Unknown [id number] 2.16.840.1.011164.3.579.2. 531 Unknown [id number] 2.16.840.1.389028.3.579.2. 531 Social History Date Type Detail Facility Start: 01-21-2024 End: 06-03-2024 Tobacco smoking status Never smoked tobacco (finding) [facility] Tobacco smoking status Never [facility] Sex Assigned At Male [facility] Start: 1955 Sex Assigned At Male F [facility] Tobacco smoking status NHIS Tobacco smoking consumption unknown [facility] Start: 1955 Sex assigned at Not on file [facility] Functional Status Date Assessment Result Facility 06-03-2024 Functional Status N/A [facility] [place] 04-30-2024 Functional Status N/A [facility] [place] 01-21-2024 Functional Status N/A [facility] Clinical Notes 01-21-2024 to 05-26-2024 Yanna Herbert, CCC-A - 05/26/2024 1:00 PM EDT Note Date & Type Note Facility 05-26-2024 History of Present illness Narrative History: Pt has history of no hearing in the right ear secondary to an acoustic neuroma. About 5 months ago, pt lost his hearing in the left ear suddenly over night. Pt denies tinnitus. Pt reports periodic hearing aid use, typically at social occasions. History is positive for noise exposure. Otoscopic Exam: Ear canal clear and TM intact both ears Pure Tone Audiometry Right Ear: No measurable hearing Left Ear: Mild to severe sensorineural hearing loss Speech Audiometry Right SRT = No response at 100 dB Left SRT = 35 dB and word discrimination score at 85 dBHL = 92% Tympanometry Right Ear: Type A tympanogram Left Ear: Type A tympanogram Impressions: Will have ENT review because pt reports left hearing loss was sudden. Hearing Aid Discussion: Pt is good candidate for [employer] hearing aids and is eligible for hearing aids through his [facility] [employer] Benefit. Recommend a custom mold for the left ear. Ear impression taken of left ear without incident. Pt ordered mid level technology. Order completed in [employer] portal and pt scheduled for HAF 06-16-24 in [place]. documented in this encounter [facility] 03-28-[address] Cardiology - [facility] Subjective Hoang Tran is a [...] HDL 42. TSH (more content not included)... [facility] 02-25-[address] Cardiology - [facility] Subjective Hoang Tran is a [...] platelets 256, potassium (more content not included)... [facility] 01-21-2024 Note Chief Complaint Referral *LUTs HPI [...] neoplasm of prostat (more content not included)... [facility] Comment on above: Result Comment: Elec tronically Signed By: Moody POP MD\.br\Date and Time Signed: 01/21/24 12:46 EDT\.br\Electronically Co-Signed By: Sowmya Flowers\.br\Date and Time Co-Signed: 01/21/24 12:42 EDT 01-21-2024 Hospital Discharge instructions Patient Education 01/21/2024 [...] urethra. Follow these instructions at home: Take egud-afb-bcndlug and prescription medicines only as told by [...] provider. Document Revised: 02/08/2022 Document Reviewed: 02/08/2022 [employer] Patient Education 2022 [employer] Follow Up Care 09/13/2023 09:26:56 With:DONN ELLIS, Moody Aranda, URL Address: [facility] [address], [place] [address]- When: Unknown [facility] Evaluation + Plan note No data available for this section [facility] Evaluation + Plan note Future Appointments Appointment Date:06/09/2024 10:45:00 AM Scheduled Provider:Moody POP MD Location:[facility] Appointment Type:URO Office Visit [facility] Evaluation note No assessment inform ation available 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 [facility] No data available for this section [facility] Progress note No data available for this section [facility] Summary Purpose Family History No Family History Records FoundNo Family History Records Found No data available for this section No Family History Records Found No data available for this section No Family History Records FoundNo Family History Records FoundNo Family History Records Found No data available for this section Advance Directives Advance Directive Response Recorded Date/ Time Advance Directives No May 06, 2024 4:34pm Additional Source Comments (unrecognized sect ion and content) No Status Records FoundNo Status Records FoundNo Status Records FoundNo Status Records FoundNo Status Records FoundNo Status Records Found INFORMATION SOURCE (unrecogn ized section and content) DATE CREATED AUTHOR 01/29/2018 [facility] DATE CREATED AUTHOR AUTHOR'S ORGANIZ ATION 09/01/2021 [facility] DATE CREATED AUTHOR AUTHOR'S ORGANIZ ATION 03/30/2024 [facility] DATE CREATED AUTHOR AUTHOR'S ORGANIZ ATION 05/28/2024 [facility] DATE CREATED AUTHOR AUTHOR'S ORGANIZ ATION 05/29/2024 [facility] DATE CREATED AUTHOR AUTHOR'S ORGANIZ ATION 06/02/2024 [facility] Patient Care team informatio n (unrecognized section and content) Personnel Name: AILIN GREEN CNP Address: Address: [address] [place] [address] Team Status: Active Member Role Status Dates Ailin Green NP-C Primary Care Provider Active Team Status: Inactive Member Role Status Dates González Moon DO Primary Care Provider Active Sta rt: April 11, 2024 End: April 11, 2024 Hoang Strange MD Attending Provider Active Start: April 11, 2024 End: April 11, 2024 Team Status: Active Member Role Status Dates Ailin Green NP-C Primary Care Provider Active Start: April 21, 2024 Nito Sunshine DO Attending Provider Active Sta rt: April 21, 2024 Team Status: Inactive Member Role Status Dates Jassi Clemens MD [facility] Attending Provider Active Start: April 23, 2024 End: April 23, 2024 Team Status: Inactive Member Role Status Dates Sonia Donnelly MD Attending Provider Active St art: May 29, 2024 End: May 29, 2024 Ailin Green NP-C Primary Care Provider Active Start: May 29, 2024 End: May 29, 2024 Team Status: Active Member Role Status Dates González Moon DO Primary Care Provider Active Or Nurse Manager Relationship Specialty Start Date End Date Ailin Green MD [address] [place] [address] Referring Physician Family Medicine 05/16/24 Ailin Green MD [address] [place] [address] Referring Physician Family Medicine 05/26/24 Or Nurse Manager Relationship Specialty Start Date End Date Ailin Green MD [address] [place] [address] Referring Physician Family Medicine 05/16/24 Ailin Green MD [address] [place] [address] Referring Physician Family Medicine 05/26/24 Goals (unrecognized section and content) Goals may [...] BE BASED ON THE PRIMARY CLINICAL RECORDS. [facility] [employer] provides no warranty or guarantee of the accuracy or completeness of information in this document.
[2024-06-04 08:46] LABS: Glucometer 180 mg/dL (74-106)
[2024-06-04] MEDS: 0.9 % SODIUM CHLORIDE 500 ML 50 ML IV (09:12)
[2024-06-04] MEDS: CEFAZOLIN SODIUM/DEXTROSE,ISO 2 GM/50 ML PIGGYBACK IV (09:55)
[2024-06-04] MEDS: HEPARIN SODIUM (PORCINE) PF LOCK FLUSH 500 UNIT/5 ML SYRINGE INJ (10:40)
[2024-06-04] MEDS: LACTATED RINGER'S SOLUTION 1,000 ML 50 ML IV (10:47)
[2024-06-04] MEDS: BUPIVACAINE HCL 0.5% PF 50 MG/10 ML VIAL INJ (10:49)
--- NOTE | 2024-06-04 10:58 | ECG_ITS ---
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
--- NOTE | 2024-06-04 11:18 | XR_ITS ---
The [address] [address] Patient Name: NABEEL TRAN MRN: [id number] date: 1955 Sex: M Assigned Patient Location: [facility]OUT [facility] Accession/Order Number: [id number] Exam Date: 06/04/2024 11:33 Report Date: 06/04/2024 12:04 At the request of: EVERETT ALEGRIA Procedure: XR chest 1V EXAMINATION: XR chest 1V HISTORY: s/p port placement COMPARISON: XR chest 12/06/2020 FINDINGS: LUNGS: Chronically elevated left hemidiaphragm with trace amount left basilar atelectasis. VASCULATURE: No increased pulmonary vasculature. PLEURA: No pneumothorax, effusion, or pleural thickening. CARDIAC: No cardiomegaly or cardiac silhouette abnormality. MEDIASTINUM: No visible mass or adenopathy. BONES: No fracture or visible bone lesion. OTHER: Right Port-A-Cath with distal tip in superior vena cava near the cavoatrial junction. XR/XR chest 1V IMPRESSION: 1. Right Port-A-Cath placement. No appreciable acute abnormality. 2. Stable chronic left lung base findings. Electronically authenticated by: NABEEL LUGO Date: 06/04/2024 12:04
[2024-06-04 11:34] LABS: Anion Gap 16.8; BUN Creatinine Ratio 15.5; Calcium 8.9 mg/dL (8.5-10.1); Carbon Dioxide 26.2 mmol/L (21.0-32.0); Chloride 98 mmol/L (98-107); Estimated GFR (African America >60 (>=60 mL/min/1.73m^2); Estimated GFR (Non-African Ame >60 (>=60 mL/min/1.73m^2); Glucose 175 mg/dL (74-106); Sodium 136 mmol/L (136-145)
[2024-06-04 11:39] LABS: Magnesium 1.9 mg/dL (1.8-2.4)
--- NOTE | 2024-06-04 13:03 | CA_ITS ---
Patient Name: NABEEL TRAN MR#: [id number] : 1955 Exam Date: 06/04/2024 Ordering Doctor: MARCO A MELISSA . ECHOCARDIOGRAM REPORT PROCEDURE: CA ECHO LIMITED INDICATIONS: SVT, shortness of breath COMPARISON: None. DESCRIPTION: Limited ECHOCARDIOGRAM Real-time transthoracic echocardiography with 2D and M-mode performed. QUALITY: Technical quality was good. LEFT VENTRICLE: Normal chamber size. Mild to moderate concentric left ventricle hypertrophy. Global left ventricular systolic function is normal. Visual estimation of left ventricular ejection fraction is 55-60%.No regional wall motion abnormalities. LV EF: DIASTOLIC: ATRIAL SEPTUM: LEFT ATRIUM: Moderate dilatation. RIGHT ATRIUM: Moderate dilatation. RIGHT VENTRICLE: Normal chamber size. Normal right ventricular systolic function. TRICUSPID VALVE: Normal mobility and thickness. MITRAL VALVE: Mildly thickened with normal mobility. There is no mitral annular calcification. AORTIC VALVE: Normal trileaflet appearance. Mildly calcified aortic valve. AORTIC ROOT: Normal diameter and appearance. PULMONIC VALVE: Not well visualized. PERICARDIUM: No evidence of pericardial effusion. IVC: Not well visualized. PLEURA: CONCLUSION: Normal left ventricle chamber size. Mild to moderate concentric left ventricle hypertrophy. Global Left ventricle systolic function is normal. Visual estimation of left ventricular ejection fraction is 55-60%.No regional wall motion abnormalities. Mildly calcified aortic valve. Adult Echocardiography Procedure Report Left Ventricle LVEDD (3.7 - 5.6 cm): 4.92 cm LVESD (2.2 - 4.0 cm): 3.57 cm LVIVS thickness (0.6 - 1.2 cm): 1.55 cm LVPW thickness (0.5 - 1.0 cm): 1.27 cm e': E - e': LVOT Max Gradient: LVOT Area (cm2): Peak Velocity (LVOT): Mean Velocity (LVOT): LVOT Diameter 2.48 cm Left Ventricular Ejection Fraction: 64.23 % Left Atrium LA Volume Index (2D A2C): 51.08 ml/m2 Left Atrium Systolic Dimension: 3.87 cm Mitral Valve MV E to A Ratio: MV Max Gradient: MV Mean Gradient: Mitral Valve A-Wave Peak Velocity: Mitral Valve E-Wave Peak Velocity: Cardiovascular Orifice Area: Right Ventricle RV Internal Diastolic Dimension: 3.47 cm Aorta AO Root Diam: 2.88 cm Ascending Ao Diam: Aortic Valve AoV Area (Peak Walt): AoV Area (VTI): Deceleration Hodgeman: Pressure Half-Time: Peak Velocity(Antegrade Flow): Peak Gradient(Antegrade Flow): Mean Velocity(Antegrade Flow): Mean Gradient(Antegrade Flow): Velocity Time Integral: Tricuspid Valve Peak Velocity (Regurgitant Flow): Peak Velocity: Pulmonic Valve Mean Gradient: Mean Velocity: Peak Velocity: Peak Gradient: Right Atrium Right Atrium Systolic Pressure: 54.46 ml, 54.46 ml Dictated by: Albina Chris MD on 06/04/2024 at 17:10 Approved by: Albina Chris MD on 06/04/2024 at 17:17
[2024-06-04 13:32] LABS: Basophils Percent Auto 0.3 % (0.2-2.0); Eosinophils Percent Auto 0.1 % (0.9-7.0); Hematocrit 31.4 % (42.0-54.0); Hemoglobin 9.6 g/dL (14.0-18.0); Immature Granulocytes Abs Auto 0.05 10^3/uL (0.00-0.03); Immature Granulocytes Pct Auto 0.5 % (0.0-0.5); Lymphocytes Percent Auto 9.6 % (20.5-60.0); Mean Corpuscular HGB Conc 30.6 g/dL (29.9-35.2); Mean Corpuscular Hemoglobin 23.6 pg (25.9-34.0); Mean Corpuscular Volume 77.3 fL (80.0-94.0); Mean Platelet Volume 8.6 fL (9.5-13.5); Monocytes Absolute Auto 1.2 10^3/uL (0.3-0.8); Monocytes Percent Auto 10.7 % (1.7-12.0); Neutrophils Absolute Auto 8.5 10^3/uL (1.4-6.5); Neutrophils Percent Auto 78.8 % (43.0-75.0); Platelet Count 374 10^3/uL (150-450); Red Blood Count 4.06 10^6/uL (4.70-6.10); Red Cell Distribution Width 16.5 % (11.0-15.0); White Blood Count 10.8 10^3/uL (4.0-11.0)
[2024-06-04 13:46] LABS: Troponin I High Sensitivity 10.3 pg/mL (4.0-76.1)
[2024-06-04 13:51] LABS: Thyroid Stimulating Hormone 0.348 uIU/mL (0.358-3.740)
[2024-06-04 14:03] LABS: Glucometer 186 mg/dL (74-106)
[2024-06-04] MEDS: ACETAMINOPHEN 325 MG TABLET 650 MG PO (14:15)
[2024-06-04] MEDS: ENOXAPARIN SODIUM 40 MG/0.4 ML SYRINGE SUBQ (14:15)
--- NOTE | 2024-06-04 14:26 | P.HP_ITS ---
HPI H&P: HPI History of Present Illness Chief complaint: SVT Narrative: Patient is a 68 y.o white male with past medical history of Newly diagnosed Hodgkin's lymphoma, insulin dependent type 2 diabetes, Hypertension, hypothyroidism, Heart murmur, and acoustic Neuroma (Right) who underwent port-a-cath placement today by Dr. Clemens. He has been following with Dr. Rosas for oncology who plans to start Chemotherapy next week. Patient developed HR 155-160's that looked like SVT on OR rhythm strip. Patient was given Amiodarone 150mg x 1. When patient was devin to PACU, HR was 80-90's and he was in NSR. Patient denies any history of cardiac arrhythmias. He has been short of breath at times and very weak but attributes this to his cancer. No prior cardiac history other than a murmur and he regularly follow with Dr. Smith for this. He had recent echo 05/23/24 with EF 50% and some biatrial dilation other llanos normal echo. He also had PFT's. I have seen patient once arrived to ICU, he denies any racing of heart, no shortness of breath or chest pain. Opioid HPI Opioid Management Most Recent Pain and Opioid Data: Last Office Visit 05/15/24 07:41 05/15/24 Last Pain Scale 3 06/04/24 14:15 06/04/24 Last Pain Intensity 0 04/23/24 08:25 04/23/24 Last Pain Assessment 06/04/24 14:00 Last MAR Pain Assessment 06/04/24 14:15 Last ORT Total Score 0 06/04/24 11:53 06/04/24 Last ORT Risk Category Low Risk 06/04/24 11:53 06/04/24 Review of Systems ROS Narrative ROS: a complete review of systems were reviewed with patient and are positive as below or listed in History of Chief Complaint. General: no fever, chills, night sweats Head: no headache, trauma, visual changes, but nausea or vomiting Skin: no reported rashes, itching or sores Eyes: no blurriness of vision Ears: reported hearing loss but no, vertigo, earache, or tinnitus Throat: no sore throat, hoarseness, swelling of neck, or tongue pain Heart: no chest pain Lungs: no shortness of breath or cough GI: no diarrhea or vomiting/nausea, nausea is chronic Urinary: no urinary urgency, frequency or pain Neuro: no numbness or tingling HEM: no bleeding issues or bruising ENDO: thyroid problems Psych: no anxiety or depression [facility] Medical History (Updated 06/04/24 @ 14:45 by Florina Alfonso DO) Port-A-Cath in place ?Z95.828 - Presence of other vascular implants and grafts (ICD-10) Hodgkin lymphoma ?C81.90 - Hodgkin lymphoma, unspecified, unspecified site (ICD-10) Cutaneous CD30+ lymphoproliferative disorder ?C86.60 - Primary cutaneous [id number] T-cell proliferations not having achieved remission (ICD-10) Lymphoproliferative disorder ?D47.9 - Neoplasm of uncertain behavior of lymphoid, hematopoietic and related tissue, unspecified (ICD-10) Poor balance ?R26.89 - Other abnormalities of gait and mobility (ICD-10) Failure to thrive Risk for falls ?Z91.81 - History of falling (ICD-10) Neck pain ?M54.2 - Cervicalgia (ICD-10) Arthritis ?M19.90 - Unspecified osteoarthritis, unspecified site (ICD-10) Back pain ?M54.9 - Dorsalgia, unspecified (ICD-10) Dyspnea on exertion ?R06.09 - Other forms of dyspnea (ICD-10) Nausea ?R11.0 - Nausea (ICD-10) GERD (gastroesophageal reflux disease) ?K21.9 - Gastro-esophageal reflux disease without esophagitis (ICD-10) Fatigue ?R53.83 - Other fatigue (ICD-10) Heart murmur ?R01.1 - Cardiac murmur, unspecified (ICD-10) Hypothyroidism ?E03.9 - Hypothyroidism, unspecified (ICD-10) Lymphoma ?C85.90 - Non-Hodgkin lymphoma, unspecified, unspecified site (ICD-10) Hearing loss ?H91.90 - Unspecified hearing loss, unspecified ear (ICD-10) Mass of right axilla ?R22.31 - Localized swelling, mass and lump, right upper limb (ICD-10) Acute hyponatremia ?E87.1 - Hypo-osmolality and hyponatremia (ICD-10) Pulmonary arterial hypertension ?I27.21 - Secondary pulmonary arterial hypertension (ICD-10) COVID ?U07.1 - COVID-19 (ICD-10) Anxiety ?F41.9 - Anxiety disorder, unspecified (ICD-10) BPH (benign prostatic hyperplasia) ?N40.0 - Benign prostatic hyperplasia without lower urinary tract symptoms (ICD-10) Weight loss ?R63.4 - Abnormal weight loss (ICD-10) Axillary lymphadenopathy ?R59.0 - Localized enlarged lymph nodes (ICD-10) Deafness in right ear ?H91.91 - Unspecified hearing loss, right ear (ICD-10) Acoustic neuroma ?D33.3 - Benign neoplasm of cranial nerves (ICD-10) Overactive bladder ?N32.81 - Overactive bladder (ICD-10) Hypertension ?I10 - Essential (primary) hypertension (ICD-10) Hyperlipidemia ?E78.5 - Hyperlipidemia, unspecified (ICD-10) Glucosuria ?R81 - Glycosuria (ICD-10) Diabetes mellitus ?E11.9 - Type 2 diabetes mellitus without complications (ICD-10) BPH with obstruction/lower urinary tract symptoms ?N40.1 - Benign prostatic hyperplasia with lower urinary tract symptoms (ICD- 10) ?N13.8 - Other obstructive and reflux uropathy (ICD-10) Surgical History (Updated 05/27/24 @ 10:11 by Coty Arciniega NP) History of bone marrow biopsy ?Z98.890 - Other specified postprocedural states (ICD-10) History of hernia repair ?Z98.890 - Other specified postprocedural states (ICD-10) ?Z87.19 - Personal history of other diseases of the digestive system (ICD-10) History of spinal surgery ?Z98.890 - Other specified postprocedural states (ICD-10) S/P excision of acoustic neuroma ?Z98.890 - Other specified postprocedural states (ICD-10) ?Z86.018 - Personal history of other benign neoplasm (ICD-10) History of ear surgery ?Z98.890 - Other specified postprocedural states (ICD-10) History of tonsillectomy ?Z90.89 - Acquired absence of other organs (ICD-10) History of spinal fusion ?Z98.1 - Arthrodesis status (ICD-10) History of colonoscopy ?Z98.890 - Other specified postprocedural states (ICD-10) Family History (Updated 05/26/24 @ 09:41 by Coty Arciniega NP) Mother Heart disease Other Cirrhosis Family history of COPD (chronic obstructive pulmonary disease) Social History (Updated 04/21/24 @ 14:57 by Susy Echeverria LPN) Within the past year, how often did you have a drink containing alcohol: never Score interpretation: A score less than 4 is consistent with normal alcohol consumption. Smoking status: Never smoker Non-prescribed substance use: denies use Previous occupational history: retired Highest level of school completed/degree received: high school graduate Little interest or pleasure in doing things: several days Feeling down, depressed, or hopeless: several days Feel stressed/tense/nervous/anxious/difficulty sleeping: not at all Due to disability, difficulty making decisions: No Do you think of yourself as: straight/heterosexual Gender Identity: male Meds Home Medications and Allergies Home Medications ?Medication ?Instructions ?Recorded ?Confirmed ?Type metformin 1,000 mg tablet 1,000 mg PO DAILY 02/01/24 06/04/24 History sitagliptin phosphate 100 mg 100 mg PO DAILY 02/01/24 06/04/24 History tablet (Januvia) vitamins A,C,Z-mquj-cnjpwt 4,296 1 cap PO DAILY 04/11/24 06/04/24 History mcg-226 mg-90 mg capsule (PreserVision AREDS) atorvastatin 10 mg tablet 10 mg PO .qd 04/21/24 06/04/24 History glucagon 1 mg solution for 1 mg IV PRN 04/21/24 06/04/24 History injection (Glucagon Emergency Kit) food supplemt, lactose-reduced 1 ea PO BID #5,688 mL 04/23/24 06/04/24 Rx (Ensure Active Protein-Muscle oral liquid) insulin glargine 100 unit/mL (3 20 unit (0.2 mL) subcut .qhs #0 mL 04/23/24 06/04/24 Rx mL) subcutaneous pen (Lantus Solostar U-100 Insulin) liothyronine 5 mcg tablet 10 mcg (2 x 5 mcg) PO QD #60 tabs 04/23/24 06/04/24 Rx tramadol 50 mg tablet 50 mg PO Q6H PRN Pain Scale 7-10 04/23/24 06/04/24 Rx #14 tabs carvedilol 6.25 mg tablet 6.25 mg PO DAILY 10/21/24 History losartan 50 mg tablet 50 mg PO DAILY 05/26/24 06/04/24 History Allergies Allergy/AdvReac Type Severity Reaction Status Date / Time No Known Drug Allergies Allergy Verified 05/26/24 09:26 Exam Narrative Exam Narrative: General: Patient is alert, and oriented to person, place and time, difficult to hear me but answers questions appropriately, cachexia Skin: no visible rashes, or ulcers Head: atraumatic, acephalic Eyes: PERRLA, no nystagmus present, conjunctiva clear, no scleral icterus Ears: diminished gross auditory acuity Nose: symmetric, no discharge, no maxillary or frontal sinus tenderness Mouth/Throat: no erythema, exudate, or tonsillar enlargement, normal dentition Heart: Normal rate and rhythm, no murmurs/rubs/gallops Lungs: no audible wheezes, crackles and normal breath sounds all lung evans Abdomen: Normal audible bowel sounds, no distension, No palpable masses, no organomegaly, no rebound/guarding/ or rigidity Musculoskeletal: muscle atrophy noted, no swelling bilateral lower extremities Neuro: CN II-X grossly intact, Constitutional Vital Signs, click to edit/add: Last Vital Signs Temp 98.6 F 06/04/24 11:53 Pulse 78 06/04/24 14:00 Resp 39 H 06/04/24 13:10 BP 125/66 06/04/24 13:03 Pulse Ox 96 06/04/24 13:10 O2 Del Method Room Air 06/04/24 11:53 Results Labs Labs: Short CBC 06/04/24 Range/Units 13:15 WBC 10.8 (4.0-11.0) 10^3/uL Hgb 9.6 L (14.0-18.0) g/dL Hct 31.4 L (42.0-54.0) % Plt Count 374 (150-450) 10^3/uL BMP 06/04/24 11:18 Sodium 136 Potassium 5.0 Chloride 98 Carbon Dioxide 26.2 BUN 13.0 Creatinine 0.84 Glucose 175 H Calcium 8.9 Assessment and Plan Assessment and Plan (1) Paroxysmal SVT (supraventricular tachycardia): Assessment and Plan: patient responded to loading dose of amiodarone 150mg x 1, appears in Normal sinus with normal rate. Will check troponin, proBNP, electrolytes, mag, TSH, cbc; chest xray was clear. Will also get Cardiology consult and see what else they recommend, Event monitor? and see if they prefer to continue coreg but at BID. (2) Hodgkin lymphoma: Assessment and Plan: as seen on PET, US and CT, Plans to start Chemo next week Qualifiers: Hodgkin lymphoma type: unspecified type Lymphoma site: unspecified region Qualified Code(s): C81.90 - Hodgkin lymphoma, unspecified, unspecified site (3) Port-A-Cath in place: Assessment and Plan: chest Xray confirmed placement (4) Hypothyroidism: Assessment and Plan: recheck TFT's, continue levothryoxine Qualifiers: Hypothyroidism type: acquired Qualified Code(s): E03.9 - Hypothyroidism, unspecified (5) Deafness in right ear: Assessment and Plan: had recent MRI at [facility], will see if I can get results. (6) Hypertension: Assessment and Plan: continue losartan, discrepancy on when he is taking coreg, I think he should be taking it BID. Will ask Cardiology to give us feedback on this. Qualifiers: Hypertension type: primary hypertension Qualified Code(s): I10 - Essential (primary) hypertension (7) Diabetes mellitus: Assessment and Plan: continue lantus and SSI. Qualifiers: Diabetes mellitus type: type 2 Diabetes mellitus director long term care insulin use: with director long term care use Diabetes mellitus complication status: with hyperglycemia Qualified Code(s): E11.65 - Type 2 diabetes mellitus with hyperglycemia; Z79.4 - residential (current) use of insulin Plan Patient is a full code placed on lovenox for DVT prophylaxis Patient is in observation status and is not expected to cross 2 midnights.
--- NOTE | 2024-06-04 15:06 | PC.NURSE ---
Wound care consult placed.
[2024-06-04] MEDS: LIOTHYRONINE SODIUM 5 MCG TABLET 10 MCG PO (15:31)
[2024-06-04 16:09] LABS: Glucometer 204 mg/dL (74-106)
--- NOTE | 2024-06-04 16:24 | ECG_ITS ---
[facility] Test Date: 2024-06-04 Pat Name: NABEEL TRAN Department: Room: [facility] Gender: Male [employer]er: : 1955 Requested By: ONEYDA GREEN Order Number: [id number] Reading MD: ROMMEL MCCLENDON Measurements Intervals [place] Rate: 133 P: -92755 CT: -19003 QRS: 10 QRSD: 86 T: 1 QT: 344 QTc: 422 Interpretive Statements 1420 Undetermined rhythm (Possible supraventricular tachycardia) 3614 Cannot rule out inferior myocardial infarction, age undetermined 5222 Moderate voltage criteria for LVH, may be normal variant 0104 ELECTRODE(S) DETACHED ... Repeat ECG is requested 9150 abnormal ECG Electronically Signed On 06-04-2024 23:27:39 EDT by ROMMEL MCCLENDON
[2024-06-04] MEDS: INSULIN ASPART 300 UNIT/3 ML PEN SUBQ ×2 (16:36→21:15)
[2024-06-04] MEDS: CARVEDILOL 6.25 MG TABLET PO (21:14)
[2024-06-04] MEDS: ATORVASTATIN CALCIUM 10 MG TABLET PO (21:14)
[2024-06-04] MEDS: ENSURE ORIGINAL 237 ML BOTTLE PO (21:14)
[2024-06-04] MEDS: INSULIN DETEMIR 300 UNIT/3 ML INSULN.PEN 15 UNIT SUBQ (21:15)
[2024-06-04 21:24] LABS: Glucometer 213 mg/dL (74-106)
[2024-06-05] VITALS: BP 111/68; PULSE 90; PULSE 91; TEMP 36.3; O2SAT 96
[2024-06-05 01:59] VITALS: PULSE 90
[2024-06-05 03:12] VITALS: BP 115/69; PULSE 88; TEMP 36.5; O2SAT 96
[2024-06-05 04:26] VITALS: PULSE 89
[2024-06-05 06:01] LABS: Basophils Percent Auto 0.3 % (0.2-2.0); Eosinophils Percent Auto 0.2 % (0.9-7.0); Hematocrit 31.9 % (42.0-54.0); Hemoglobin 9.7 g/dL (14.0-18.0); Immature Granulocytes Abs Auto 0.05 10^3/uL (0.00-0.03); Immature Granulocytes Pct Auto 0.6 % (0.0-0.5); Lymphocytes Absolute Auto 0.9 10^3/uL (1.2-3.8); Lymphocytes Percent Auto 10.4 % (20.5-60.0); Mean Corpuscular HGB Conc 30.4 g/dL (29.9-35.2); Mean Corpuscular Hemoglobin 23.5 pg (25.9-34.0); Mean Corpuscular Volume 77.2 fL (80.0-94.0); Mean Platelet Volume 8.9 fL (9.5-13.5); Monocytes Absolute Auto 1.1 10^3/uL (0.3-0.8); Monocytes Percent Auto 11.7 % (1.7-12.0); Neutrophils Percent Auto 76.8 % (43.0-75.0); Platelet Count 373 10^3/uL (150-450); Red Blood Count 4.13 10^6/uL (4.70-6.10); Red Cell Distribution Width 16.5 % (11.0-15.0); White Blood Count 9.1 10^3/uL (4.0-11.0)
[2024-06-05 06:06] VITALS: PULSE 80
[2024-06-05 06:19] LABS: Alanine Aminotransferase 34 U/L (16-63); Albumin Globulin Ratio 0.2; Albumin Level 1.2 g/dL (3.4-5.0); Alkaline Phosphatase 324 U/L (46-116); Anion Gap 10.9; Aspartate Amino Transferase 47 U/L (15-37); BUN Creatinine Ratio 15.3; Bilirubin Total 0.6 mg/dL (0.2-1.0); Carbon Dioxide 30.6 mmol/L (21.0-32.0); Chloride 99 mmol/L (98-107); Estimated GFR (African America >60 (>=60 mL/min/1.73m^2); Estimated GFR (Non-African Ame >60 (>=60 mL/min/1.73m^2); Globulin 5.4 g/dL; Glucose 152 mg/dL (74-106); Magnesium 1.8 mg/dL (1.8-2.4); Potassium 3.5 mmol/L (3.5-5.1); Sodium 137 mmol/L (136-145); Total Protein 6.6 g/dL (6.4-8.2)
--- OUTSIDE RECORDS SUMMARY | 2024-06-05 07:03 | XMS_ITS | CCD ---
Author Organization [facility] [place] Care Team Providers Care Tobacco Sorter Name Role Phone PHYSICIAN, DEFAULT Unavailable Unavailable PHYSICIAN, DEFAULT Unavailable Unavailable PHYSICIAN, DEFAULT Unavailable Unavailable PHYSICIAN, DEFAULT Unavailable Unavailable PHYSICIAN, DEFAULT Unavailable Unavailable PHYSICIAN, DEFAULT Unavailable Unavailable UNKNOWN, PROVIDER Unavailable Unavailable UNKNOWN, PROVIDER Unavailable Unavailable YFN MATA Unavailable Unavailable YFN MATA Unavailable Unavailable AILIN BAKER Admitting Unavailable AILIN BAKER Attending Unavailable AILIN BAKER Primary Care Unavailable AILIN BAKER Admitting Unavailable [...] Attending Provider MD Jassi Clemens Attending Provider Taco ELLIS, Ailin Unavailable Taco ELLIS, Ailin Unavailable YANNA HERBERT Attending Unavailable MD Sonia Donnelly Attending Provider [phone] MEHRDAD Green Primary Care Provider [phone] Jassi Clemens Admitting Unavailable Jassi Clemens Attending Unavailable Hoang Strange Admitting Unavailable Hoang Strange Attending Unavailable González Moon Primary Care Unavailable Sonia Donnelly Admitting Unavailable Sonia Donnelly Attending Unavailable Ailin Green Primary Care Unavailable Moody POP Attending Unavailable AIRAM, Jassi Aranda Attending Unavailable NILRufus, Jassi Aranda Attending Unavailable AILIN GREEN Referring Unavailable Moody POP Attending Unavailable Moody POP Attending Unavailable NILL, Jassi Aranda Attending Unavailable NILL, Jassi Aranda Attending Unavailable Allergies Allergy Classification Reported Allergen(s) Allergy Type Date of Onset Reaction(s) Facility (2 sources) No Known Allergies; 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: [No Known Allergies] Propensity to adverse reactions (disorder) 7 [facility] (1 source) empagliflozin; 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: [EMPAGLIFLOZIN] Drug Allergy 4 [facility] (1 source) Unable to Assess Drug allergy (disorder) [address] [place] [address] Repository (1 source) No Known Medication Allergies; 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: [No Known Medication Allergies] Propensity to adverse reactions (disorder) 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; 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: [CORRECTION (CURRENT) USE OF ORAL 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 DRUGS] Onset: 2017 Unclassified (3 sources) Patient encounter status 01-21-2024 Viral infection (1 source) COVID-19; 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: [COVID-19] Onset: 12-08-2020 Past or Other Problems Problem Classification Problem Date Documented Da te Episodic/Chronic Other aftercare (1 source) 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 Performed By: #### I SCRE #### [address] MR head/brain wo/w conon MR head/brain wo/w con [facility] Main [place] [address] [place], [place] [id number] MRI Report Signed Patient: Hoang Tran MR#: [id number] : 1955 Acct:[id number] Age/Sex: 68 / M ADM Date: 05/29/24 Loc: MR Room: Type: [facility] Attending Dr: Sonia Donnelly MD Copies to: [...] Alexis Patel M.D.05/29/2024 1:38 PM Dictation Location: [place] [address] Transcribed By: ANDRIA 05/29/24 1338 Dictated By: Alexis Patel II, MD 05/29/24 1325 Signed By: 05/29/24 1338 Normal [facility] No Panel InformationOrdered By: Sonia Donnelly on 05-29-2024 Bedside Estimated GFR (eGFR) > 60.0 [facility] Whole blood creatinine measu rementOrdered By: Sonia Donnelly on 05-29-2024 Creatinine [Mass/Vol] 0.8 mg/dL Normal 0.6-1.3 [facility] Comment on above: ER/ESD physician is notified/shown all ISTAT results.Critical values may be confirmed by laboratory testing ifdeemed necessary by ER attending doctor. Result Comment: ER/E SD physician is notified/shown all ISTAT results. Critical values may be confirmed by laboratory testing if deemed necessary by ER attending doctor. Performed By: #### I SCRE #### [address] XR pre/post mri xrayon 05-29 XR pre/post mri xray [facility] [place] [place] [address] MRI Report Signed Patient: Hoang Tran MR#: [id number] : 1955 Acct:[id number] Age/Sex: 68 / M ADM Date: 05/29/24 Loc: MR Room: Type: [facility] Attending Dr: Sonia Donnelly MD Copies to: Sonia Donnelly MD Ordering Provider: Sonia Donnelly MD Date of Service: 05/29/24 MR/MR cervical spine wo/w con: C85.90, C85.94, C85.11 ([id number]) XR/XR pre/post mri xray: C85.90, C85.94, C85.11 [...] Alexis Patel M.D.05/29/2024 1:00 PM Dictation Location: [place] [address] Transcribed By: ANDRIA 05/29/24 1300 Dictated By: Alexis Patel II, MD 05/29/24 1254 Signed By: 05/29/24 1300 Normal [facility] Ambulatory Visit Summaryon 0 04-30-2024 [...] ELLIS, Moody Aranda Where: [facility] [address] [address]- Medications What How Much When Instructions Unchanged [...] choosing us for your care. Normal [facility] General Surgery Office/Clini c Noteon 04-30-2024 General Surgery Office/Clinic Note General Surgery Office/Clinic Note Chief Complaint post operative follow up HPI Staff 7 day post operative follow up post incisional biopsy right axilla adenopathy completed while inpatient at [facility]. Denies soreness, bleeding or drainage. History [...] 04/30/2024 Family History Heart disease: Mother. Normal [facility] Comment on above: Result Comment: Elec tronically Signed By: AIRAM ELLIS, Jassi Nazario.br\Date and Time Signed: 04/30/24 14:51 EDT Robert 04-23-2024 L Specimen: [id number] R eceived: 04/23/24 Status: MERNA Rivera Num: [id number] Spec Type: Surgical Subm Dr: Jassi Clemens MD FACS Tissues: A Lymph Node - Biopsy (Needle or Incisional) (R AXILLARY LYMPH NODE BX) Procedures: CD45/2, HE/4, Gross/Micro L4, AE1-AE3, BCL-2, BCL-6, CD10, CD20, CD23, CD3, CD30/2, CD5, PAX5/2 Age/ Patient Sex Location Account Attending Physician Hoang Tran 68/M LABELL [id number] Jassi Clemens MD FACS SPEC NUM: [id number] RECD: 04/23/24 STATUS: MERNA RIVERA NUM: [id number] RANJITH: 04/23/24-[address]: Jassi Clemens MD FACS ENTERED: 04/23/[address] [facility] [address]: SPEC TYPE: Surgical DEPT: LUANA MOYER ENTERED BY: [id number] RECV BY: [id number] ORDERED: CD45/2, HE/4, Gross/Micro L4, AE1-AE3, BCL-2, BCL-6, CD10, CD20, CD23, CD3, CD30/2, CD5, PAX5/2 ORDERED: CD45/2, HE/4, Gross/Micro L4, AE1-AE3, BCL-2, BCL-6, CD10, CD20, CD23, CD3, CD30/2, CD5, PAX5/2, USS/7 Supplemental Report Addendum 3 Entered: 05/15/24-1014 Supplemental for addended consultation report from [facility] Addendum -Repeat MUM1 immunostain does in fact stain the focal large atypical cells -No change in final diagnosis Addendum Signed (signature on file) Chin-Gama Lauren MD 05/15/24 1014 -- Addendum 2 Entered: 05/14/245791 Supplemental for findings of consultation report from [facility]: -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 -- Specimen: [id number] Received: 04/23/24 Status: MERNA Rivera Num: [id number] Spec Type: Surgical Subm Dr: Jassi Clemens MD FACS Tissues: A Lymph Node - Biopsy (Needle or Incisional) (R AXILLARY LYMPH NODE BX) Procedures: CD45/2, HE/4, Gross/Micro L4, AE1-AE3, BCL-2, BCL-6, CD10, CD20, CD23, CD3, CD30/2, CD5, PAX5/2 -- Patient: Hoang Tran [id number] (Continued) -- Specimen: [id number] Received: 04/23/24 (Continued) Supplemental Report (Continued) Signed (signature on file) Trinity Lauren MD 05/01/241650 -- Specimen: [id number] Received: 04/23/24 Status: MERNA Rivera Num: [id number] Spec Type: Surgical Subm Dr: Jassi Clemens MD FACS Tissues: A Lymph Node - Biopsy (Needle or Incisional) (R AXILLARY LYMPH NODE BX) Procedures: CD45/2, HE/4, Gross/Micro L4, AE1-AE3, BCL-2, BCL-6, CD10, CD20, CD23, CD3, CD30/2, CD5, PAX5/2 -- Patient: Hoang Tran [id number] (Continued) -- Specimen: [id number] Received: 04/23/24 (Continued) Supplemental Report (Continued) lymphocytes -See comment Addendum Signed (signature on file)Kavon Lauren MD 05/14/24 1437 -- Addendum 1 Entered: 05/07/24 Supplemental for findings of Flow Cytometry report from [employer] -No significant lymphoid immunophenotypic abnormalities detected [...] lymphoid (more content not included)... Normal [facility] Robert 04-11-2024 L Specimen: [id number] R eceived: 04/14/24 Status: [facility] Re Num: [id number] Spec Type: Surgical Subm Dr: Hoang Strange MD Tissues: A Lymph Node - Biopsy (Needle or Incisional) (R AXILLA LYMPH NODE) B Gross Only (LYMPH NODE) Procedures: HE/2, Gross/Micro L4, Level 1 Gross Age/ Patient Sex Location Account Attending Physician Hoang Tran 68/M LABELL [id number] Hoang Strange MD SPEC NUM: [id number] RECD: 04/14/24 STATUS: [facility] RE NUM: [id number] RANJITH: 04/11/24- SUBM DR: Hoang Strange MD ENTERED: 04/14/[address] [facility] [address]: Gregg Flores SPEC TYPE: Surgical DEPT: LUANA MOYER ENTERED BY: [id number] RECV BY: [id number] ORDERED: HE/2, Gross/Micro L4, Level 1 Gross ORDERED: HE/2, Gross/Micro L4, Level 1 Gross Supplemental Report Addendum 2 Entered: 04/21/246 Supplemental for findings of consultation report from [facility]: A, -Extremity limited specimen compatible with malignancy, see comment Addendum Signed (signature on file) Trinity Lauren MD 04/21/24 1307 -- Addendum 1 Entered: 04/18/24-2522 Supplemental for findings of flow cytometry report from [facility]: -Tests canceled -This test is canceled due to poor sample quality / poor viability -- Specimen: [id number] Received: 04/14/24-1044 Status: MERNA Rivera Num: [id number] Spec Type: Surgical Subm Dr: Hoang Strange MD Tissues: A Lymph Node - Biopsy (Needle or Incisional) (R AXILLA LYMPH NODE) B Gross Only (LYMPH NODE) Procedures: HE/2, Gross/Micro L4, Level 1 Gross -- Patient: Hoang Tran [id number] (Continued) -- Specimen: [id number] Received: 04/14/24 (Continued) Supplemental Report (Continued) Signed (signature on file) Trinity Lauren MD 04/17/24 1127 -- Specimen: [id number] Received: 04/14/24 Status: TAMIALakshmi Miguel Num: [id number] Spec Type: Surgical Subm Dr: Hoang Strange MD Tissues: A Lymph Node - Biopsy (Needle or Incisional) (R AXILLA LYMPH NODE) B Gross Only (LYMPH NODE) Procedures: HE/2, Gross/Micro L4, Level 1 Gross -- Patient: Hoang Tran [id number] (Continued) -- Specimen: [id number] Received: 04/14/24-1045 (Continued) Supplemental Report (Continued) Addendum [...] to an outside facility. DM -- Specimen: [id number] Received: 04/14/24 Status: MERNA Rivera Num: [id number] Spec Type: Surgical Subm Dr: Hoang Strange MD Tissues: A Lymph Node - Biopsy (Needle or Incisio (more content not included)... Normal [facility] Office Visiton 03-28-2024 Follow-up visit [id number] Allen Tran W 1955 M Date Provider Department Center 03/28/2024 JEROD BANKS Family History Problem Relation Age of Onset Coronary artery disease Mother Family Status - Relation Status Age at Mother Level of Service:39612 [place] OFFICE/OUTPATIENT ESTABLISHED MOD MDM 30 MIN Normal [place] Office Visiton 02-25-2024 Follow-up visit [id number] Allen Tran W 1955 M Date Provider Department Center 02/25/2024 JEROD BANKS Family History Problem Relation Age of Onset Coronary artery disease Mother Family Status - Relation Status Age at Mother Level of Service:29810 [place] OFFICE/OUTPATIENT NEW MODERATE MDM 45 MINUTES Normal [place] Insurance Correspondenceon 0 01-30-2024 Insurance Correspondence [id number]#1.00TIFF Normal [facility] Consent for Procedure/Surger yon 01-22-2024 Consent for Procedure/Surgery [id number]#1.00TIFF Normal [facility] Physician Referralon 024 Physician Referral [id number]#1.00TIFF Normal [facility] Screenson 01-22-2024 Screens [id number]#1.00TIFF Normal [facility] Ambulatory Visit Summaryon 0 01-21-2024 Ambulatory [...] When: Where: [facility] [address], [place] [address]- Medications What When Instructions Unchanged amlodipine (amLODIPine [...] urine (ur (more content not included)... Normal [facility] Patient Educationon 01-21-20 Patient Education Urology [...] Follow these instructions at home: ? Take mvbv-xuh-uzwcdyr and prescription medicines only as told by [...] the medicine (more content not included)... Normal [facility] INSULINon 08-27-2021 Insulin 19.2 uIU/mL Normal 2.6-24.9 [facility] Comment on above: Performed By: #### I NSULIN #### [facility] [address] [place] [address] Dr. Forrest Lauren CBC AUTO DIFFon 08-26-2021 BASO # 0.1 103/ul Normal 0.0-0.1 [facility] Comment on above: Performed By: #### P SASC #### [facility] [address] [place] [address] Dr. Forrest Lauren Basophils/100 WBC (Bld) 0.8 % Normal 0.2-2.0 [facility] Comment on above: Performed By: #### P SASC #### [facility] [address] [place] [address] Dr. Forrest Lauren EO # 0.4 103/ul Normal 0.0-0.7 [facility] Comment on above: Performed By: #### P SASC #### [facility] [address] [place] [address] Dr. Forrest Lauren Eosinophils/100 WBC (Bld) 4.8 % Normal 0.9-7.0 [facility] Comment on above: Performed By: #### P SASC #### [facility] [address] [place] [address] Dr. Forrest Lauren Erythrocyte distribution width (RBC) [Ratio] 12.7 % Normal 11.0-15.[address] [facility] Comment on above: Performed By: #### P SASC #### [facility] [address] [place] [address] Dr. Forrest Lauren Hematocrit (Bld) [Volume fraction] 48.3 % Normal 42.0-54.0 [facility] Comment on above: Performed By: #### P SASC #### [facility] [address] [place] [address] Dr. Forrest Lauren Hemoglobin (Bld) [Mass/Vol] 16.4 g/dL Normal 14.0-18.0 [facility] Comment on above: Performed By: #### P SASC #### [facility] [address] [place] [address] Dr. Forrest Lauren IG # 0.05 10e3/ul Critically high 0.00-0.03 [facility] Comment on above: Performed By: #### P SASC #### [facility] [address] [place] [address] Dr. Forrest Lauren IG % 0.6 % Critically high 0.0-0.5 [facility] Comment on above: Performed By: #### P SASC #### [facility] [address] [place] [address] Dr. Forrest Lauren LYMPH # 2.0 103/ul Normal 1.2-3.[address] [facility] Comment on above: Performed By: #### P SASC #### [facility] [address] [place] [address] Dr. Forrest Lauren Lymphocytes/100 WBC (Bld) 22.6 % Normal 20.5-60.0 [facility] Comment on above: Performed By: #### P SASC #### [facility] [address] [place] [address] Dr. Forrest Lauren MANUAL DIFF REQ NO Normal [facility] Comment on above: Performed By: #### P SASC #### [facility] [address] [place] [address] Dr. Forrest Lauren MCH (RBC) [Entitic mass] 29.8 pg Normal 25.9-34.[address] [facility] Comment on above: Performed By: #### P SASC #### [facility] [address] [place] [address] Dr. Forrest Lauren MCHC (RBC) [Mass/Vol] 34.0 g/dL Normal 29.9-35.[address] [facility] Comment on above: Performed By: #### P SASC #### [facility] [address] [place] [address] [address] Forrest Lauren MCV (RBC) [Entitic vol] 87.8 fL Normal 80.0-94.0 [facility] Comment on above: Performed By: #### P SASC #### [facility] [address] [place] [address] [address] Forrest Lauren MONO # 0.7 103/ul Normal 0.3-0.[address] [facility] Comment on above: Performed By: #### P SASC #### [facility] [address] [place] [address] [address] Forrest Lauren Monocytes/100 WBC (Bld) 8.0 % Normal 1.7-12.0 [facility] Comment on above: Performed By: #### P SASC #### [facility] [address] [place] [address] Dr. Forrest Lauren NEUT # 5.7 103/ul Normal 1.4-6.5 [facility] Comment on above: Performed By: #### P SASC #### [facility] [address] [place] [address] [address] Forrest Lauren Neutrophils/100 WBC (Bld) 63.2 % Normal 43.0-75.0 [facility] Comment on above: Performed By: #### P SASC #### [facility] [address] [place] [address] Dr. Forrest Lauren Platelet mean volume (Bld) [Entitic vol] 9.7 fL Normal 9.5-13.[address] [facility] Comment on above: Performed By: #### P SASC #### [facility] [address] [place] [address] Dr. Forrest Lauren PLT 242 103/ul Normal 150-[address] [facility] Comment on above: Performed By: #### P SASC #### [facility] [address] [place] [address] [address] Forrest Lauren RBC 5.50 106/ul Normal 4.70-6.[address] [facility] Comment on above: Performed By: #### P SASC #### [facility] [address] [place] [address] [address] Forrest Lauren WBC 9.0 103/ul Normal 4.0-11.0 [facility] Comment on above: Performed By: #### P SASC #### [facility] [address] [place] [address] Dr. Forrest Lauren GLYCOHEMOGLOBIN A1Con 2021 ADA RECOMMENDATION ADA THERAPEUTIC TARG ET 6.0 - 7.0 ACTION SUGGESTED > 7.0 Normal [facility] Comment on above: Performed By: #### A 1C #### [facility] [address] [place] [address] Dr. Forrest Lauren Glucose [Mass/Vol] 194 mg/dL Normal [facility] Comment on above: Performed By: #### A 1C #### [facility] [address] [place] [address] Dr. Forrest Lauren HbA1c (Bld) [Mass fraction] 8.4 % Critically high <=6.0 [facility] Comment on above: Performed By: #### A 1C #### [facility] [address] [place] [address] Dr. Forrest Lauren LIPID PROFILEon 08-26-2021 CHOL-HDL RATIO NORM SEE BELOW Normal [facility] Comment on above: Result Comment: 3.3 - 4.4 LOW RISK 4.4 - 7.1 AVERAGE RISK 7.1 - 11.0 MODERATE RISK >11.0 HIGH RISK Performed By: #### P SASC #### [facility] [address] [place] [address] Dr. Forrest Lauren Cholesterol [Mass/Vol] 117 mg/dL Normal <=[address] [facility] Comment on above: Performed By: #### P SASC #### [facility] [address] [place] [address] [address] Forrest Lauren Cholesterol in HDL [Mass/Vol] 43 mg/dL Normal [facility] Comment on above: Performed By: #### P SASC #### [facility] [address] [place] [address] Dr. Forrest Lauren Cholesterol in LDL [Mass/Vol] 45.6 mg/dL Normal [facility] Comment on above: Performed By: #### P SASC #### [facility] [address] [place] [address] [address] Forrest Lauren Cholesterol.total/C holesterol in HDL [Mass ratio] 2.7 {ratio} Normal [facility] Comment on above: Performed By: #### P SASC #### [facility] [address] [place] [address] [address] Forrest Lauren HDL NORMAL > or = 60 mg/dl - LO W CARDIOVASCULAR RISK <40 mg/dl - HIGH CARDIOVASCULAR RISK Normal [facility] Comment on above: Performed By: #### P SASC #### [facility] [address] [address] [address] Forrest Lauren LDL CALC NORMAL SEE BELOW Normal [facility] Comment on above: Result Comment: <100 mg/dl OPTIMAL 100 - 129 mg/dl NEAR OR ABOVE OPTIMAL 130 - 159 mg/dl BORDERLINE HIGH 160 - 189 mg/dl HIGH >190 mg/dl VERY HIGH Performed By: #### P SASC #### [facility] [address] [place] [address] Dr. Forrest Lauren Triglyceride [Mass/Vol] 142 mg/dL Normal <=[address] [facility] Comment on above: Performed By: #### P SASC #### [facility] [address] [place] [address] Dr. Forrest Lauren VLDL CALC 28.4 mg/dL Normal [facility] Comment on above: Performed By: #### P SASC #### [facility] [address] [place] [address] [address] Forrest Lauren PROF 14(COMP METB)on 022 Albumin [Mass/Vol] 4.1 g/dL Normal 3.5-5.0 [facility] Comment on above: Performed By: #### P SASC #### [facility] [address] [place] [address] Dr. Forrest Lauren Albumin/Globulin [Mass ratio] 1.2 {ratio} Normal [facility] Comment on above: Performed By: #### P SASC #### [facility] [address] [place], [place] [address] Dr. Forrest Lauren ALP [Catalytic activity/Vol] 82 U/L Normal 38-[address] [facility] Comment on above: Performed By: #### P SASC #### [facility] [address] [place] [address] Dr. Forrest Lauren ALT [Catalytic activity/Vol] 38 U/L Normal 21-[address] [facility] Comment on above: Performed By: #### P SASC #### [facility] [address] [address] [address] Forrest Lauren Anion gap [Moles/Vol] 12.7 mmol/L Normal [facility] Comment on above: Performed By: #### P SASC #### [facility] [address] [place] [address] Dr. Forrest Lauren AST [Catalytic activity/Vol] 18 U/L Normal 17-[address] [facility] Comment on above: Performed By: #### P SASC #### [facility] [address] [place] [address] Dr. Forrest Lauren Bilirubin [Mass/Vol] 1.2 mg/dL Normal 0.2-1.[address] [facility] Comment on above: Performed By: #### P SASC #### [facility] [address] [place] [address] Dr. Forrest Lauren Calcium [Mass/Vol] 9.7 mg/dL Normal 8.4-10.[address] [facility] Comment on above: Performed By: #### P SASC #### [facility] [address] [place] [address] Dr. Forrest Lauren Chloride [Moles/Vol] 102 mmol/L Normal 98-[address] [facility] Comment on above: Performed By: #### P SASC #### [facility] [address] [place] [address] Dr. Forrest Lauren CO2 [Moles/Vol] 30.6 mmol/L Critically high 22.0-30.[address] [facility] Comment on above: Performed By: #### P SASC #### [facility] [address] [place] [address] Dr. Forrest Lauren Creatinine [Mass/Vol] 1.09 mg/dL Normal 0.66-1.25 [facility] Comment on above: Performed By: #### P SASC #### [facility] [address] [address] [address] Forrest Lauren EGFR-AF CAYMAN ISLANDER >60 Normal >=60 [facility] Comment on above: Performed By: #### P SASC #### [facility] [address] [address] [address] Forrest Lauren EGFR-NON AF [place] ISLANDER >60 Normal >=60 [facility] Comment on above: Performed By: #### P SASC #### [facility] [address] [address] [address] Forrest Lauren Globulin (S) [Mass/Vol] 3.4 g/dL Normal [facility] Comment on above: Performed By: #### P SASC #### [facility] [address] [address] [address] Forrest Lauren Glucose [Mass/Vol] 238 mg/dL Critically high 74-106 [facility] Comment on above: Performed By: #### P SASC #### [facility] [address] [address] [address] Forrest Lauren Potassium [Moles/Vol] 4.3 mmol/L Normal 3.4-5.0 [facility] Comment on above: Performed By: #### P SASC #### [facility] [address] [address] [address] Forrest Lauren Protein [Mass/Vol] 7.5 g/dL Normal 6.1-8.2 [facility] Comment on above: Performed By: #### P SASC #### [facility] [address] [address] [address] Forrest Lauren Sodium [Moles/Vol] 141 mmol/L Normal 137-145 [facility] Comment on above: Performed By: #### P SASC #### [facility] [address] [address] [address] Forrest Lauren Urea nitrogen [Mass/Vol] 20.0 mg/dL Normal 9.0-20.0 [facility] Comment on above: Performed By: #### P SASC #### [facility] [address] [address] [address] Forrest Lauren Urea nitrogen/Creatinine [Mass ratio] 18.3 mg/mg Normal [facility] Comment on above: Performed By: #### P SASC #### [facility] [address] [place] [address] Dr. Forrest Lauren URIC ACID SERUMon 08-26-2021 Urate [Mass/Vol] 4.8 mg/dL Normal 3.5-8.5 [facility] Comment on above: Performed By: #### P SASC #### [facility] [address] [place] [address] Dr. Forrest Lauren Covid-19 PCR ([facility])on Sample Type Test performed using RT-PCR from a nasopharyngeal collected specimen. Normal [facility] Comment on above: Performed By: #### P SASC #### [facility] [address] [place] [address] Dr. Forrest Lauren SARS-CoV-2 (COVID-19) RNA MERA+probe Ql (Unsp spec) Detected Abnormal NOT DETECTED [facility] Comment on above: Result Comment: This test is not yet approved or cleared by the [place] FDA. When there are no FDA-approved or cleared tests available, and other criteria are met, FDA can make tests available under an emergency access mechanism called an Emergency Use Authorization (EUA). The EUA for this test is supported by the Pump Machine Operator of Health and Human Service's (HHS's) declaration [...] used). Performed By: #### P SASC #### [facility] [address] [place] [address] Dr. Forrest Lauren POINT OF CARE GLUCOSEon Glucose [Mass/Vol] 255 mg/dL Critically high 74-[address] [facility] Comment on above: Performed By: #### P OCGLUC #### [facility] [address] [place], [place] [id number] Matias Evelyn XR CHEST 1 Von 12-07-2020 [...] AMARIS WALKER Date: 2020-12-06 22:[address] [facility] INSULINon 10-02-2020 Insulin 16.9 uIU/mL Normal 2.6-24.[address] [facility] Comment on above: Performed By: #### P SASC #### [facility] [address] [place] [address] Dr. Forrest Lauren CBC AUTO DIFFon 10-01-2020 BASO # 0.1 103/ul Normal 0.0-0.[address] [facility] Comment on above: Performed By: #### C BC #### [facility] [address] [place], [place] [id number] Matias Evelyn Basophils/100 WBC (Bld) 0.6 % Normal 0.2-2.[address] [facility] Comment on above: Performed By: #### C BC #### [facility] [address] [place] [address] Matias Evelyn EO # 0.4 103/ul Normal 0.0-0.[address] [facility] Comment on above: Performed By: #### C BC #### [facility] [address] [place] [address] Matias Evelyn Eosinophils/100 WBC (Bld) 4.2 % Normal 0.9-7.[address] [facility] Comment on above: Performed By: #### C BC #### [facility] [address] [place] [address] Matias Rivas Erythrocyte distribution width (RBC) [Ratio] 13.1 % Normal 11.0-15.0 [facility] Comment on above: Performed By: #### C BC #### [facility] [address] [place] [address] Matiaswali Rivas Hematocrit (Bld) [Volume fraction] 50.2 % Normal 42.0-54.0 [facility] Comment on above: Performed By: #### C BC #### [facility] [address] [place] [address] Matias Evelyn Hemoglobin (Bld) [Mass/Vol] 16.6 g/dL Normal 14.0-18.[address] [facility] Comment on above: Performed By: #### C BC #### [facility] [address] [place] [address] Matias Evelyn IG # 0.05 10e3/ul Critically high 0.00-0.03 [facility] Comment on above: Performed By: #### C BC #### [facility] [address] [place] [address] Matias Evelyn IG % 0.6 % Critically high 0.0-0.[address] [facility] Comment on above: Performed By: #### C BC #### [facility] [address] [place] [address] Matias Evelyn LYMPH # 1.9 103/ul Normal 1.2-3.[address] [facility] Comment on above: Performed By: #### C BC #### [facility] [address] [place] [address] Matias Rivas Lymphocytes/100 WBC (Bld) 22.2 % Normal 20.5-60.[address] [facility] Comment on above: Performed By: #### C BC #### [facility] [address] [place], [place] [id number] Matias Rivas MANUAL DIFF REQ NO Normal [facility] Comment on above: Performed By: #### C BC #### [facility] [address] [place] [address] Matiaswali Rivas MCH (RBC) [Entitic mass] 29.4 pg Normal 25.9-34.0 [facility] Comment on above: Performed By: #### C BC #### [facility] [address] [place], [place] [id number] Matias Rivas MCHC (RBC) [Mass/Vol] 33.1 g/dL Normal 29.9-35.[address] [facility] Comment on above: Performed By: #### C BC #### [facility] [address] [place], [place] [id number] Matiaswali Rivas MCV (RBC) [Entitic vol] 88.8 fL Normal 80.0-94.0 [facility] Comment on above: Performed By: #### C BC #### [facility] [address] [place] [address] Matias Rivas MONO # 0.7 103/ul Normal 0.3-0.[address] [facility] Comment on above: Performed By: #### C BC #### [facility] [address] [place] [address] Matias Evelyn Monocytes/100 WBC (Bld) 7.7 % Normal 1.7-12.0 [facility] Comment on above: Performed By: #### C BC #### [facility] [address] [place], [place] [address] Matiaswali Rodasen NEUT # 5.7 103/ul Normal 1.4-6.[address] [facility] Comment on above: Performed By: #### C BC #### [facility] [address] [place], [place] [id number] Matiaswali Rivas Neutrophils/100 WBC (Bld) 64.7 % Normal 43.0-75.[address] [facility] Comment on above: Performed By: #### C BC #### [facility] [address] [place], [place] [id number] Matiaswali Rivas Platelet mean volume (Bld) [Entitic vol] 10.4 fL Normal 9.5-13.[address] [facility] Comment on above: Performed By: #### C BC #### [facility] [address] [place], [place] [id number] Matias Evelyn PLT 243 103/ul Normal 150-[address] [facility] Comment on above: Performed By: #### C BC #### [facility] [address] [id number] Matias Evelyn RBC 5.65 106/ul Normal 4.70-6.[address] [facility] Comment on above: Performed By: #### C BC #### [facility] [address] [address] Matias Evelyn WBC 8.7 103/ul Normal 4.0-11.0 [facility] Comment on above: Performed By: #### C BC #### [facility] [address] [address] Matiaswali Rivas FREE THYROXINE INDEX T7on FTI 2.[address] [facility] Comment on above: Performed By: #### U TARIK, CMP, T7, PSASC, TSH, LIPID #### [facility] [address] [place] [address] Matiaswali Rodasen T3U 34.0 % Normal 23.5-40.[address] [facility] Comment on above: Performed By: #### U TARIK, CMP, T7, PSASC, TSH, LIPID #### [facility] [address] [id number] Matiaswali Rivas T4 [Mass/Vol] 6.20 ug/dL Normal 5.53-11.00 [facility] Comment on above: Performed By: #### U TARIK, CMP, T7, PSASC, TSH, LIPID #### [facility] [address] [id number] Matias Rivas GLYCOHEMOGLOBIN A1Con 2020 ADA RECOMMENDATION ADA THERAPEUTIC TARG ET 6.0 - 7.0 ACTION SUGGESTED > 7.0 Normal [facility] Comment on above: Performed By: #### A 1C #### [facility] [address] [place] [address] Matias Evelyn Glucose [Mass/Vol] 266 mg/dL Normal [facility] Comment on above: Performed By: #### A 1C #### [facility] [address] [address] Matiaswali Rodasen HbA1c (Bld) [Mass fraction] 10.9 % Critically high <=6.0 [facility] Comment on above: Performed By: #### A 1C #### [facility] [address] [address] Matias Rivas LIPID PROFILEon 10-01-2020 CHOL-HDL RATIO NORM SEE BELOW Normal [facility] Comment on above: Result Comment: 3.3 - 4.4 LOW RISK 4.4 - 7.1 AVERAGE RISK 7.1 - 11.0 MODERATE RISK >11.0 HIGH RISK Performed By: #### P SASC #### [facility] [address] [address] [address] Forrest Lauren Cholesterol [Mass/Vol] 110 mg/dL Normal <=200 [facility] Comment on above: Performed By: #### P SASC #### [facility] [address] [place] [address] Dr. Forrest Lauren Cholesterol in HDL [Mass/Vol] 36 mg/dL Normal [facility] Comment on above: Performed By: #### P SASC #### [facility] [address] [place] [address] Dr. Forrest Lauren Cholesterol in LDL [Mass/Vol] 36.2 mg/dL Normal [facility] Comment on above: Performed By: #### P SASC #### [facility] [address] [place] [address] Dr. Forrest Lauren Cholesterol.total/C holesterol in HDL [Mass ratio] 3.1 {ratio} Normal [facility] Comment on above: Performed By: #### P SASC #### [facility] [address] [place] [address] Dr. Forrest Lauren HDL NORMAL > or = 60 mg/dl - LO W CARDIOVASCULAR RISK <40 mg/dl - HIGH CARDIOVASCULAR RISK Normal [facility] Comment on above: Performed By: #### P SASC #### [facility] [address] [place] [address] Dr. Forrest Lauren LDL CALC NORMAL SEE BELOW Normal [facility] Comment on above: Result Comment: <100 mg/dl OPTIMAL 100 - 129 mg/dl NEAR OR ABOVE OPTIMAL 130 - 159 mg/dl BORDERLINE HIGH 160 - 189 mg/dl HIGH >190 mg/dl VERY HIGH Performed By: #### P SASC #### [facility] [address] [address] [address] Forrest Lauren Triglyceride [Mass/Vol] 189 mg/dL Critically high <=150 [facility] Comment on above: Performed By: #### P SASC #### [facility] [address] [address] [address] Forrest Lauren VLDL CALC 37.8 mg/dL Normal [facility] Comment on above: Performed By: #### P SASC #### [facility] [address] [address] [address] Forrest Lauren PROF 14(COMP METB)on 021 Albumin [Mass/Vol] 4.1 g/dL Normal 3.5-5.0 [facility] Comment on above: Performed By: #### U TARIK, CMP, T7, PSASC, TSH, LIPID #### [facility] [address] [place] [address] Matias Rivas Albumin/Globulin [Mass ratio] 1.2 {ratio} Normal [facility] Comment on above: Performed By: #### U TARIK, CMP, T7, PSASC, TSH, LIPID #### [facility] [address] [place] [address] Matias Evelyn ALP [Catalytic activity/Vol] 80 U/L Normal 38-126 [facility] Comment on above: Performed By: #### U TARIK, CMP, T7, PSASC, TSH, LIPID #### [facility] [address] [address] Matias Evelyn ALT [Catalytic activity/Vol] 42 U/L Normal 21-72 [facility] Comment on above: Performed By: #### U TARIK, CMP, T7, PSASC, TSH, LIPID #### [facility] [address] [address] Matias Rivas Anion gap [Moles/Vol] 12.3 mmol/L Normal [facility] Comment on above: Performed By: #### U TARIK, CMP, T7, PSASC, TSH, LIPID #### [facility] [address] [address] Matias Evelyn AST [Catalytic activity/Vol] 24 U/L Normal 17-[address] [facility] Comment on above: Performed By: #### U TARIK, CMP, T7, PSASC, TSH, LIPID #### [facility] [address] [address] Matias Evelyn Bilirubin [Mass/Vol] 1.3 mg/dL Normal 0.2-1.[address] [facility] Comment on above: Performed By: #### U TARIK, CMP, T7, PSASC, TSH, LIPID #### [facility] [address] [place] [address] Matias Evelyn Calcium [Mass/Vol] 9.3 mg/dL Normal 8.4-10.[address] [facility] Comment on above: Performed By: #### U TARIK, CMP, T7, PSASC, TSH, LIPID #### [facility] [address] [place] [address] Matias Evelyn Chloride [Moles/Vol] 103 mmol/L Normal 98-[address] [facility] Comment on above: Performed By: #### U TARIK, CMP, T7, PSASC, TSH, LIPID #### [facility] [address] [place] [address] Matias Evelyn CO2 [Moles/Vol] 30.0 mmol/L Normal 22.0-30.[address] [facility] Comment on above: Performed By: #### U TARIK, CMP, T7, PSASC, TSH, LIPID #### [facility] [address] [place] [address] Matias Evelyn Creatinine [Mass/Vol] 1.20 mg/dL Normal 0.66-1.[address] [facility] Comment on above: Performed By: #### U TARIK, CMP, T7, PSASC, TSH, LIPID #### [facility] [address] [place] [address] Matias Evelyn EGFR-AF [place] ISLANDER >60 Normal >=[address] [facility] Comment on above: Performed By: #### U TARIK, CMP, T7, PSASC, TSH, LIPID #### [facility] [address] [place] [address] Matias Evelyn EGFR-NON AF [place] ISLANDER >60 Normal >=[address] [facility] Comment on above: Performed By: #### U TARIK, CMP, T7, PSASC, TSH, LIPID #### [facility] [address] [address] Matias Evelyn Globulin (S) [Mass/Vol] 3.5 g/dL Normal [facility] Comment on above: Performed By: #### U TARIK, CMP, T7, PSASC, TSH, LIPID #### [facility] [address] [address] Matias Evelyn Glucose [Mass/Vol] 269 mg/dL Critically high 74-106 [facility] Comment on above: Performed By: #### U TARIK, CMP, T7, PSASC, TSH, LIPID #### [facility] [address] [address] Matias Evelyn Potassium [Moles/Vol] 4.3 mmol/L Normal 3.4-5.0 [facility] Comment on above: Performed By: #### U TARIK, CMP, T7, PSASC, TSH, LIPID #### [facility] [address] [address] Matias Evelyn Protein [Mass/Vol] 7.6 g/dL Normal 6.1-8.[address] [facility] Comment on above: Performed By: #### U TARIK, CMP, T7, PSASC, TSH, LIPID #### [facility] [address] [address] Matias Evelyn Sodium [Moles/Vol] 141 mmol/L Normal 137-[address] [facility] Comment on above: Performed By: #### U TARIK, CMP, T7, PSASC, TSH, LIPID #### [facility] [address] [address] Matias Evelyn Urea nitrogen [Mass/Vol] 17.0 mg/dL Normal 9.0-20.0 [facility] Comment on above: Performed By: #### U TARIK, CMP, T7, PSASC, TSH, LIPID #### [facility] [address] [address] Matias Evelyn Urea nitrogen/Creatinine [Mass ratio] 14.2 mg/mg Normal [facility] Comment on above: Performed By: #### U TARIK, CMP, T7, PSASC, TSH, LIPID #### [facility] [address] [place], [place] [address] Matias Rivas TSHon 10-01-2020 TSH 1.574 uIU/mL Normal 0.470-4.[address] [facility] Comment on above: Performed By: #### P SASC #### [facility] [address] [address] [address] Forrest Lauren TSH RANGE SEE BELOW Normal [facility] Comment on above: Result Comment: <0.3 4 UIU/ml HYPERTHYROID 0.34-5.60 UIU/ml EUTHYROID >5.60 UIU/ml HYPOTHYROID Performed By: #### P SASC #### [facility] [address] [address] [address] Forrest Lauren URIC ACID SERUMon 10-01-2020 Urate [Mass/Vol] 4.8 mg/dL Normal 3.5-8.5 [facility] Comment on above: Performed By: #### P SASC #### [facility] [address] [address] [address] Forrest Lauren Cardiovascular Lab Reporton 08-03-2017 Cardiovascular Lab Report [facility]: [id number] Physician: Jerod Miller M.D.Medicine Service Date: 2017Division of Birthdate: 6Cardiology Room #: CCAd[facility] CardiovascularServicesUniversi [address] [id number] [place], [place] [address]Tgdoo Fax Cardiovascular Laboratory ReportINDICATION: Hoang Tran is [...] the right internal jugular vein and a 6-Thai x 11cm sheath was placed. A 6-Thai Griffith catheter was used for right heartcatheterization with measurement of pressures and calculation of cardiacoutput using the estimated Luke method. Griffith catheter was removed.Using ultrasound guidance and micropuncture technique, access was obtainedin the left radial artery and a 6-Thai x 11 cm Hydrophilic sheath wasadvanced. Verapamil [...] by:Jerod Manuel M.D. 08/11/2017 03:22 A Jerod Manule M.D.Date Dict: 08/02/2017/02:42 P/Jerod Manuel M.D.Date Trans: 08/03/2017 11:29 [id number]: Yfn Mata D.O. [address] [place] [address] [facility] Vital Signs Date Time Vital Sign Value Performing Clinician Paulai devorah 06-03-2024 09:54-0400 Diastolic blood pressure 68 mm[Hg] Jassi CLEMENS [facility] 06-03-2024 09:54-0400 Heart rate 105 /min Jassi CLEMENS [facility] 06-03-2024 09:54-0400 Respiratory rate 16 /min Jassi CLEMENS [facility] 06-03-2024 09:54-0400 Systolic blood pressure 103 mm[Hg] Jassi CLEMENS [facility] 05-29-2024 06:42-0400 Body height 190.5 cm DO [employer] Work Phone: [facility] 05-29-2024 06:42-0400 Body weight 78.47 kg DO [employer] Work Phone: [facility] 01-21-2024 11:44-0400 Blood Pressure Location Moody POP [facility] [place] 01-21-2024 11:44-0400 Diastolic blood pressure 72 mm[Hg] Moody POP [facility] [place] 01-21-2024 11:44-0400 Heart rate 70 /min Moody POP [facility] [place] 01-21-2024 11:44-0400 Respiratory rate 16 /min Moody POP [facility] [place] 01-21-2024 11:44-0400 Systolic blood pressure 108 mm[Hg] Moody POP [facility] [place] Encounters Encounter Date Encounter Type Care Provider Facility Start: 06-03-2024 ambulatory Jassi R NILL Facility :[facility] Start: 06-03-2024 End: 06-03-2024 ambulatory Jassi R NILL Facility:[facility] Start: 06-03-2024 End: 06-03-2024 Patient encounter procedure Jassi R NILL [facility] Start: 05-29-2024 End: 05-29-2024 Patient encounter procedure DO González Kuns Work Phone: [facility] [place] Work Phone: Start: 05-29-2024 End: 05-29-2024 ambulatory DO González Kuns Work Phone: [facility] Work Phone: Start: 05-26-2024 End: 05-26-2024 Bamboo flowsheet Yanna Herbert CCC-A Work Phone: [facility] Start: 05-26-2024 End: 05-26-2024 Bamboo flowsheet Yanna Herbert CCC-A Work Phone: [facility] Start: 05-26-2024 End: 05-26-2024 Clinical Support Yanna Herbert CCC-A Work Phone: [facility] Comment on above: 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) Start: 04-30-2024 End: 04-30-2024 ambulatory Jassi CLEMENS Facility:[facility] Start: 04-30-2024 End: 04-30-2024 Patient encounter procedure Jassi CLEMENS [facility] [place] Start: 04-28-2024 ambulatory Moody POP Facility :[facility] Start: 04-23-2024 End: 04-23-2024 ambulatory DO González Kuns Work Phone: [facility] Work Phone: Start: 04-23-2024 End: 04-23-2024 Departed Referred DO González Kuns Work Phone: [facility] [place] [facility] Start: 04-23-2024 ambulatory Moody POP Facility : [facility] Start: 04-22-2024 End: 04-23-2024 ambulatory Jassi Aranda AIRAM Facility:[id number] Start: 04-21-2024 Non-patient / Non-visit DO Felipa tt Kuns Work Phone: [facility] Work Phone: Start: 04-11-2024 End: 04-11-2024 ambulatory DO González Kuns Work Phone: [facility] Work Phone: Start: 04-11-2024 End: 04-11-2024 Departed Referred DO González Kuns Work Phone: [facility] [place] Start: 03-28-2024 End: 03-28-2024 ambulatory [facility] Start: 02-25-2024 End: 02-25-2024 ambulatory [facility] Start: 02-11-2024 End: 02-11-2024 ambulatory Moodyarnol POP Facility:[id number] Start: 01-21-2024 End: 01-21-2024 ambulatory AILIN GREEN Facility:[facility] [place] Start: 01-21-2024 End: 01-21-2024 Patient encounter procedure Moody POP [facility] [place] Start: 09-12-2023 ambulatory Moody DONN Facility :[facility] [place] Start: 08-26-2021 End: 08-26-2021 ambulatory AILIN BAKER Facility:[facility] Start: 02-23-2021 ambulatory AILIN BAKER Facility:[facility] Start: 12-06-2020 End: 12-07-2020 ambulatory ILAN TODD Facility:[facility] Start: 10-07-2020 Encounter for genera l adult medical examination without abnormal findings AILIN BAKER [facility] Start: 10-01-2020 End: 10-02-2020 ambulatory [...] Start: 05-29-2024 XR pre/post mri xray DO Gonázlez Kuns Work Phone: Start: 05-29-2024 MRI of cervical spin e with contrast DO González Kuns Work Phone: Start: 05-29-2024 MRI of head DO González K uns Work Phone: Start: 04-23-2024 Incisional biopsy Sudhir CLEMENS Start: 08-26-2021 PSA screening AILIN KHAN Comment on above: Performed By: #### P SASC #### [facility] [address], [place] [address] Dr. Forrest Lauren Start: 10-01-2020 PSA screening AILIN KHAN Comment on above: Performed By: #### U TARIK, CMP, T7, PSASC, TSH, LIPID #### [facility] [address], [place] [address] Matias Rivas Start: 08-06-2013 Colonoscopy Moody ASHER Start: 08-06-2004 Neoplasm of brain (disorder) Moody POP Back structure, excl uding neck (body structure) Moody POP Removal of acoustic neuroma Jassi CLEMENS Spinal arthrodesis Jassi INFANTE Tonsillectomy Moody POP Plan of Treatment Date Care Activity Detail Author Start: 06-16-2024 End: 06-16-2024 Patient encounter procedure 06/16/2024 3:00 PM EST Office Visit [facility] [address] [place] [id number] [facility] Start: 06-09-2024 ambulatory Ambulatory Facility:[facility] Start: 06-05-2024 End: 06-05-2024 Patient encounter procedure 06/05/2024 11:00 AM EDT Office Visit [facility] [address] [id number] Lucas Arenas, [address] [place], [place] [id number] [facility] Auditory function tests Auditory function tests Audiology Routine 05/26/2024 1:35 PM EDT [facility] Work Phone: Payers Date Payer Category Payer Medicare (Managed Care) [facility] MEDICARE [id number] 2023 Medicare [id number] 1959 [facility] [id number] 1959 Medicare [id number] 1959 Self-pay 1956 Unknown [id number] [id number]. 593 1956 Unknown [id number] 2.16.840.1.311698.3.579.2. 593 1956 Unknown [id number] 2.16.840.1.894761.3.579.2. 593 1956 Unknown [id number] 2.16.840.1.510132.3.579.2. 593 1956 Unknown [id number] 2.16.840.1.086867.3.579.2. 1259 1956 Unknown [id number] 2.16.840.1.109232.3.579.2. 727 1956 Unknown [id number] 2.16.840.1.496958.3.579.2. 727 1956 Unknown [id number] 2.16.840.1.572625.3.579.2. 727 1956 Unknown [id number] 2.16.840.1.545763.3.579.2. 727 1956 Unknown [id number] 2.16.840.1.821544.3.579.2. 727 1956 Unknown [id number] 2.16.840.1.108554.3.579.2. 727 1956 Unknown [id number] 2.16.840.1.303324.3.579.2. 727 Private Health Insurance [facility] [id number] Unknown Unknown Bruce BC/DIPIKA [id number] Unknown [id number] 2.16.840.1.408131.3.579.2. 531 Unknown [id number] 2.16.840.1.617764.3.579.2. 531 Unknown [id number] 2.16.840.1.324815.3.579.2. 531 Social History Date Type Detail Facility Start: 01-21-2024 End: 06-03-2024 Tobacco smoking status Never smoked tobacco (finding) [facility] [place] Tobacco smoking status Never [facility] [place] Sex Assigned At Male [facility] Start: 1955 Sex Assigned At Male F [facility] Tobacco smoking status NHIS Tobacco smoking consumption unknown [facility] Start: 1955 Sex assigned at Not on file [facility] Functional Status Date Assessment Result Facility 06-03-2024 Functional Status N/A [facility] 04-30-2024 Functional Status N/A [facility] [place] 01-21-2024 Functional Status N/A [facility] [place] Clinical Notes 01-21-2024 to 06-03-2024 Yanna Herbert, CCC-A - 05/26/2024 1:00 PM EDT Note Date & Type Note Facility 06-03-2024 Note General Surgery Offi ce/Clinic Note Chief Complaint consultation for port placement HPI Staff 68 year old male presents on consultation from Dr. Andrzej for port placement. History of Present Illness 68 yo male with h/o DMII, htn, hyperlipidemia, ENE, BPH, referred for port placement for chemotherapy due to recent diagnosis of Non-Hodgkin lymphoma; patient has bulky right axillary adenopathy; patient has lost 100 lbs over the last 6 months; no previous ports; no h/o clavicular fx or neck surgery; no XRT to neck/chest; no asa or NSAID use; no tobacco use. Review of Systems PHQ Score Initial Depression Screen Score: 0 SCORE ROS - Provider Constitutional: no fever, no sweats, no weight loss. Eyes: no glasses, no blurred vision, no visual loss. ENMT: no dentures, no hoarseness, no swallowing difficulties, severe hearing loss, no ear infection(s), no nose [...] urine infection, no dysuria. Musculoskeletal: no pain, severe weakness. Skin: no changing moles, no rash, yes skin lumps. Neurologic: no seizures, no epilepsy, [...] and are negative or noncontributory. Physical Exam Vitals & Measurements HR: 105(Peripheral) RR: 16 BP: 103/68 HT: 74 in HT: 187 cm WT: 75.9 kg WT: 166.98 lb BMI: 21.7 HEENT: normal conjunctiva, sclera clear, no scleral icterus, EOM intact, PERRLA, oral mucosa moist without lesions. Neck: trachea midline, no mass, symmetric, no thyromegaly or nodules, no adenopathy Respiratory: lungs CTA, respirations non labored. Cardiovascular: regular rate and rhythm, no murmur, no pedal edema or varicosities. Gastrointestinal: soft, non distended, no tenderness, no masses, no palpable hernias, diastasis recti no, no hepatosplenomegaly; normal bs Lymphatic: no cervical adenopathy; bulky right axillary adenopathy no inguinal adenopathy. Musculoskeletal: abnormal gait, digits and nails without infection, nodes, cyanosis, clubbing. Skin: no rashes, no lesions, no ulcers, no subcutaneous nodules, induration. Psychiatric/Neuro: oriented to time, place, person, judgement normal, affect appropriate for age, insight intact, no focal deficits. Tests: labs reviewed, x-rays reviewed, review of old records completed , Discussed surgical options, risks, and possible complications with patient. Assessment/Plan 1. 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 Ancef 2 gms IV prior to OR SCDs 2. Poor venous access (I87.8: Other specified disorders of veins) see # 1 Follow-up No qualifying data available Problem List/Past Medical History Ongoing Acoustic neuroma Anxiety BPH with obstruction/lower urinary tract symptoms Diabetes mellitus Glucosuria Hodgkin lymphoma Hyperlipidemia Hypertensive disorder Lymphadenopathy, axillary Non-Hodgkin lymphoma Non-rheumatic mitral regurgitation OAB (overactive bladder) Poor venous access Pulmonary arterial hypertension.. Screening PSA (prostate specific [...] unit(s), SubCutaneous, Once a day (at bedtime) liothyronine 5 mcg Tab, 5 mcg= 1 tab(s), Oral, Daily losartan 100 mg Tab, 100 mg= 1 tab(s), Oral, Daily metformin 1000 mg Tab, 1000 mg= 1 tab(s), Oral, Daily ondansetron 4 mg Tab, as directed prochlorperazine 10 mg Tab, as directed traMADOL 50 mg Tab, as directed Allergies No Known Allergies No Known Medication Allergies Social History Alcohol - Denies Alcohol Use, 04/30/2024 Substance Abuse - Denies Substance Abuse, 04/30/2024 Tobacco Never (less than 100 in lifetime) Tobacco Use:. Never Smokeless Tobacco Use:. House (more content not included)... [facility] Comment on above: Result Comment: Elec tronically Signed By: AIRAM ELLIS, Jassi Rodney\Date and Time Signed: 06/03/24 10:41 EDT 05-26-2024 History of Present illness Narrative History: [...] is eligible for hearing aids through his [facility] [employer] Benefit. Recommend a custom mold for the left ear. Ear impression taken of left ear without incident. Pt ordered mid level technology. Order completed in [employer] portal and pt scheduled for HAF 06-16-24 in [place]. documented in this encounter [facility] 03-28-2024 Note [place] [facility] Subjective Hoang Tran is a 68 y.o. [...] normalization of right-sided pressures. Cardiac catheterization in 2016 performed due to ischemia on stress testing [...] HDL 42. TSH (more content not included)... [place] 02-25-2024 Note [place] [facility] - [facility] Subjective Hoang Tran is a [...] platelets 256, potassium (more content not included)... [place] 01-21-2024 Note Chief Complaint Referral *LUTs HPI [...] male new pt referred by Ailin Green [facility] due to LUTS. 1. BPH [...] neoplasm of prostat (more content not included)... [facility] Comment on above: Result Comment: Elec tronically Signed By: Moody POP MD\.br\Date and Time Signed: 01/21/24 12:46 EDT\.br\Electronically Co-Signed By: Sowmya Flowers.br\Date and Time Co-Signed: 01/21/24 12:42 EDT 01-21-2024 [...] urethra. Follow these instructions at home: Take vsnp-scr-ryyovtu and prescription medicines only as told by [...] provider. Document Revised: 02/08/2022 Document Reviewed: 02/08/2022 [employer] Patient Education 2022 [employer]. Follow Up Care 09/13/2023 09:26:56 With:Moody POP MD, URL Address: [facility] [address], [place] [address]- When: Unknown [facility] [place] Evaluation + Plan note No data available for this section [facility] Evaluation + Plan note Future Appointments Appointment Date:06/09/2024 10:45:00 AM Scheduled Provider:Moody POP MD Location: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 [facility] this encounter [facility] No data available for this section [facility] Progress note No data available for this section [facility] Summary Purpose Family History No Family History Records FoundNo Family History Records Found No data available for this section No Family History Records Found No data available for this section No Family History Records FoundNo Family History Records Found No data available for this section No Family History Records Found Advance Directives No Advanced Directives Records Found Advance Directive Response Recorded Date/ Time Advance Directives No May 06, 2024 4:34pm Additional Source Comments (unrecognized sect ion and content) No Status Records FoundNo Status Records FoundNo Status Records FoundNo Status Records FoundNo Status Records FoundNo Status Records Found INFORMATION SOURCE (unrecogn ized section and content) DATE CREATED AUTHOR 01/29/2018 [facility] DATE CREATED AUTHOR AUTHOR'S ORGANIZ ATION 09/01/2021 [facility] DATE CREATED AUTHOR AUTHOR'S ORGANIZ ATION 03/30/2024 [facility] DATE CREATED AUTHOR AUTHOR'S ORGANIZ ATION 05/28/2024 [facility] EPIC DATE CREATED AUTHOR AUTHOR'S ORGANIZ ATION 06/02/2024 [facility] DATE CREATED AUTHOR AUTHOR'S ORGANIZ ATION 06/04/2024 [facility] Patient Care team informatio n [...] Team Status: Active Member Role Status Dates MEHRDAD Bardales Primary Care Provider Active Start: April 21, [...] 2024 End: May 29, 2024 Ailin Green , RADIOPHARMACIST-C Primary Care Provider Active Start: May 29, 2024 End: May 29, 2024 Team Status: Active Member Role Status Dates González Moon DO Primary Care Provider Active Tobacco Sorter Relationship Specialty Start Date End Date Ailin Green MD [address] [place] [id number] Referring Physician Family Medicine 05/16/24 Ailin Green MD [address] [place] [id number] Referring Physician Family Medicine 05/26/24 Tobacco Sorter Relationship Specialty Start Date End Date Ailin Green MD [address] [place] [address] Referring Physician Family Medicine 05/16/24 Ailin Green MD [address] [place] [address] Referring Physician Family Medicine 05/26/24 Goals (unrecognized [...] BE BASED ON THE PRIMARY CLINICAL RECORDS. [employer] provides no warranty or guarantee of the accuracy or completeness of information in this document.
--- NOTE | 2024-06-05 07:37 | PM.DS1 ---
DS: Providers Provider Date of admission: 06/04/24 12:58 Primary care physician: ONEYDA GREEN Admitting clinician: Florina Alfonso Consults: 06/04/24 Consult to Wound Care Routine Consulting Provider: Codey Pulliam Reason for consultation: Stage 1 to L Buttock Has provider been notified: Yes 06/04/24 12:58 Consult to Cardiology Routine Reason for consultation: new onset SVT Has provider been notified: No Occupational Therapy Eval and Treat Routine Reason for consultation: weakness Has provider been notified: No Physical Therapy Eval and Treat Routine Reason for consultation: weakness Has provider been notified: No Discharging clinician: Florina Alfonso DS: Diagnosis Discharge Diagnosis (1) Paroxysmal SVT (supraventricular tachycardia): (2) Hodgkin lymphoma: Qualifiers: Hodgkin lymphoma type: unspecified type Lymphoma site: unspecified region Qualified Code(s): C81.90 - Hodgkin lymphoma, unspecified, unspecified site (3) Port-A-Cath in place: (4) Hypothyroidism: Qualifiers: Hypothyroidism type: acquired Qualified Code(s): E03.9 - Hypothyroidism, unspecified (5) Deafness in right ear: (6) Hypertension: Qualifiers: Hypertension type: primary hypertension Qualified Code(s): I10 - Essential (primary) hypertension (7) Diabetes mellitus: Qualifiers: Diabetes mellitus complication status: with hyperglycemia Diabetes mellitus [facility] insulin use: with assistant terminal manager use Diabetes mellitus type: type 2 Qualified Code(s): E11.65 - Type 2 diabetes mellitus with hyperglycemia; Z79.4 - alf (current) use of insulin DS: Summary Hospital Course Hospital Course: Patient is a 68 y.o white male with past medical history of Newly diagnosed Hodgkin's lymphoma, insulin dependent type 2 diabetes, Hypertension, hypothyroidism, Heart murmur, and acoustic Neuroma (Right) who underwent port-a-cath placement today by Dr. Clemens. He has been following with Dr. Srivastava for oncology who plans to start Chemotherapy next week. Patient developed HR 155-160's that looked like SVT on OR rhythm strip. Patient was given Amiodarone 150mg x 1. When patient was brought to PACU, HR was 80-90's and he was in NSR. Patient denies any history of cardiac arrhythmias. He has been short of breath at times and very weak but attributes this to his cancer. No prior cardiac history other than a murmur and he regularly follow with Dr. Smith for this. He had recent echo 05/23/24 with EF 50% and some biatrial dilation other llanos normal echo. He also had PFT's. I have seen patient once arrived to ICU, he denies any racing of heart, no shortness of breath or chest pain. I spoke with Dr. Lay of [facility] who thinks it was the Port-a-cath irritation that caused the episode. He had no reported episodes overnight. I will place him on a 30 day event monitor and he will have close Cardiology follow up. He will keep his arranged appointments. His cmp and magnesium were all normal. CBC just showed slight anemia with Hemoglobin 9.7, Chest X-ray showed good Port-a-cath placement. Normal troponin and proBNP. I have also increased his coreg to 6.125 to BID. He may return to the ER with any worsening signs or symptoms. I asked and patient if he wanted me to reschedule his Neurology appointment today and they said they would do it. Status at Discharge Functional status at discharge: uses cane/walker Overall status at discharge: patient is back to baseline Time Spent with Patient Time attestation: Total time spent providing and/or coordinating discharge services: Time spent: greater than 30 minutes Exam Narrative Exam Narrative: General: Patient is alert, and oriented to person, place and time, difficult to hear me but answers questions appropriately, cachexia Skin: no visible rashes, or ulcers Head: atraumatic, acephalic Eyes: PERRLA, no nystagmus present, conjunctiva clear, no scleral icterus Ears: diminished gross auditory acuity Nose: symmetric, no discharge, no maxillary or frontal sinus tenderness Mouth/Throat: no erythema, exudate, or tonsillar enlargement, normal dentition Heart: Normal rate and rhythm, no murmurs/rubs/gallops Lungs: no audible wheezes, crackles and normal breath sounds all lung evans Abdomen: Normal audible bowel sounds, no distension, No palpable masses, no organomegaly, no rebound/guarding/ or rigidity Musculoskeletal: muscle atrophy noted, no swelling bilateral lower extremities Neuro: CN II-X grossly intact Constitutional Vital Signs, click to edit/add: Last Vital Signs Temp 97.7 F 06/05/24 03:12 Pulse 80 06/05/24 06:06 Resp 16 06/05/24 04:26 BP 115/69 06/05/24 03:12 Pulse Ox 96 06/05/24 03:12 O2 Del Method Room Air 06/04/24 19:40 DS: Data Data Completed and Pending Labs on day of discharge: Labs from last 24 hours 06/05/24 06/04/24 06/04/24 05:10 21:13 16:08 WBC 9.1 RBC 4.13 L Hgb 9.7 L Hct 31.9 L MCV 77.2 L MCH 23.5 L MCHC 30.4 RDW 16.5 H Plt Count 373 MPV 8.9 L Neut % (Auto) 76.8 H Lymph % (Auto) 10.4 L [place] % (Auto) 11.7 Eos % (Auto) 0.2 L Baso % (Auto) 0.3 Neut # (Auto) 7.0 H Lymph # (Auto) 0.9 L [place] # (Auto) 1.1 H Eos # (Auto) 0.0 Baso # (Auto) 0.0 Abs Immat Gran (auto) 0.05 H Imm/Tot Granulo (auto) 0.6 H Sodium 137 Potassium 3.5 Chloride 99 Carbon Dioxide 30.6 Anion Gap 10.9 BUN 11.0 Creatinine 0.72 Est GFR ( Amer) >60 Est GFR (Non-Af Amer) >60 BUN/Creatinine Ratio 15.3 Glucose 152 H Calcium 9.0 Magnesium 1.8 Total Bilirubin 0.6 AST 47 H ALT 34 Alkaline Phosphatase 324 H Troponin I High Sens NT-Pro-B Natriuret Pep Total Protein 6.6 Albumin 1.2 L Globulin 5.4 Albumin/Globulin Ratio 0.2 TSH POC Glucose 213 H 204 H 06/04/24 06/04/24 06/04/24 14:02 13:15 11:18 WBC 10.8 RBC 4.06 L Hgb 9.6 L Hct 31.4 L MCV 77.3 L MCH 23.6 L MCHC 30.6 RDW 16.5 H Plt Count 374 MPV 8.6 L Neut % (Auto) 78.8 H Lymph % (Auto) 9.6 L [place] % (Auto) 10.7 Eos % (Auto) 0.1 L Baso % (Auto) 0.3 Neut # (Auto) 8.5 H Lymph # (Auto) 1.0 L [place] # (Auto) 1.2 H Eos # (Auto) 0.0 Baso # (Auto) 0.0 Abs Immat Gran (auto) 0.05 H Imm/Tot Granulo (auto) 0.5 Sodium 136 Potassium 5.0 Chloride 98 Carbon Dioxide 26.2 Anion Gap 16.8 BUN 13.0 Creatinine 0.84 Est GFR ( Amer) >60 Est GFR (Non-Af Amer) >60 BUN/Creatinine Ratio 15.5 Glucose 175 H Calcium 8.9 Magnesium 1.9 Total Bilirubin AST ALT Alkaline Phosphatase Troponin I High Sens 10.3 NT-Pro-B Natriuret Pep 294.0 Total Protein Albumin Globulin Albumin/Globulin Ratio TSH 0.348 L POC Glucose 186 H 06/04/24 08:45 WBC RBC Hgb Hct MCV MCH MCHC RDW Plt Count MPV Neut % (Auto) Lymph % (Auto) [place] % (Auto) Eos % (Auto) Baso % (Auto) Neut # (Auto) Lymph # (Auto) [place] # (Auto) Eos # (Auto) Baso # (Auto) Abs Immat Gran (auto) Imm/Tot Granulo (auto) Sodium Potassium Chloride Carbon Dioxide Anion Gap BUN Creatinine Est GFR ( Amer) Est GFR (Non-Af Amer) BUN/Creatinine Ratio Glucose Calcium Magnesium Total Bilirubin AST ALT Alkaline Phosphatase Troponin I High Sens NT-Pro-B Natriuret Pep Total Protein Albumin Globulin Albumin/Globulin Ratio TSH POC Glucose 180 H Discharge Plan Discharge Disposition: Home, Self-Care Condition: Good Plan of Treatment: An Event monitor will be placed prior to discharge, you will follow up in Cardiology clinic to discuss results. Discharge Medications: Continued Januvia 100 mg tablet 100 mg PO DAILY metformin 1,000 mg tablet 1,000 mg PO DAILY PreserVision AREDS 4,296 mcg-226 mg-90 mg capsule 1 cap PO DAILY losartan 50 mg tablet 50 mg PO DAILY atorvastatin 10 mg tablet 10 mg PO .qd Glucagon Emergency Kit (human) 1 mg recon soln 1 mg IV PRN liothyronine 5 mcg Tablet 10 mcg PO QD Qty: 60 11RF Ensure Active Protein-Muscle Liquid 1 ea PO BID Qty: 5688 11RF insulin glargine [Lantus Solostar U-100 Insulin] 100 unit/mL (3 mL) insulin pen 20 unit SUBCUT .qhs Qty: 0 0RF tramadol 50 mg Tablet 50 mg PO Q6H PRN (Reason: Pain Scale 7-10) Qty: 14 0RF Changed carvedilol 6.25 mg tablet 6.25 mg PO BID Qty: 0 0RF Rx Instructions: must administer with a meal/food Activity: ambulate only with your walker Diet: advance to your usual diet Print Language: Sudanese Activity Restrictions/Additional Instructions: may shower, remove dressing and leave open to air, don't submerge incisions in water for 2 weeks. Forms: Portal Instructions Follow Up Appointments: [facility] Cardiology clinic keep all scheduled appointments appointment with [facility] clinic 2023 @ 3:20 phone # [phone] Discharge Date/Time: 06/05/24 09:20
--- NOTE | 2024-06-05 09:09 | SWNOTE1 ---
Physical therapy recommended wheeled walker and home health at discharge. SW to speak with pt.
--- NOTE | 2024-06-05 10:09 | SWNOTE1 ---
Pt was discharged home prior to SW seeing pt. SW to call pt and speak with him about the recommendations of HH and walker.
--- NOTE | 2024-06-05 10:11 | SWNOTE1 ---
SW called and spoke with pt's . Pt was sleeping at the time. SW offered to set up home health services. Pt's voiced they are not interested at this time. SW did ask if he has a walker at home. She stated they have a walker, cane, shower chair, and grab bars. She voiced they are ready and prepared. At this time she voiced no further needs.
--- NOTE | 2024-06-05 11:51 | CM.NOTE ---
06/05/24 09:[address] Cheryl Alfonso. Dr Alfonso discussed heart monitor at discharge, plans for followup with Cardiology & to start Chemotherapy next week. Hoang verbalized understanding. Hoang had a neurology appt today but he cancelled. Dr. Alfonso offered to call Neurologists to see if patient could still be seen today since he is being discharge but Hoang did not want to go today. Dr. Alfonso encouraged followup with neurology. Hoang verbalized understanding. Plan is for discharge today with heart monitor.
--- NOTE | 2024-06-06 14:14 | CM.DCFOLLOWU ---
Person spoke with:pt's How are you feeling?well How is your pain?none Did you understand your discharge instructions?yes Do you have any questions about your discharge instructions?no Were you given any prescriptions at discharge? no Were you able to get your prescriptions filled? N/A Do you understand how to take your medications as ordered? N/A Do you have any questions about your follow up appointment and do you plan to keep your follow up appointment? no questions, follow ups kept Is there anything else that you would like to discuss?no Questions/Comments/Concerns/Other:none
== END 2024-06-05 09:20 | disposition home or self-care (01) ==
LOC: SURGOUT 06-05 07:00 → ICU 06-05 07:00
PROVIDERS: Anesthesiology; Surgery; Admitting Provider Family Medicine; PCP Nurse Practitioner Family; Visit Provider Family Medicine
PROC: (CPT 36561; principal; 2024-06-04 09:20)
DX: C81.14 Nodular sclerosis Hodgkin lymphoma, 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 (principal); I47.19 Other supraventricular tachycardia; E03.9 Hypothyroidism, unspecified; I10 Essential (primary) hypertension; E11.65 Type 2 diabetes mellitus with hyperglycemia; Z79.4 Long term (current) use of insulin; G47.33 Obstructive sleep apnea (adult) (pediatric); N40.0 Benign prostatic hyperplasia without lower urinary tract symptoms; Z79.84 Long term (current) use of oral hypoglycemic drugs; Z79.890 Hormone replacement therapy; D33.3 Benign neoplasm of cranial nerves; R06.02 Shortness of breath; R53.1 Weakness; R64 Cachexia; M62.50 Muscle wasting and atrophy, not elsewhere classified, unspecified site; H91.91 Unspecified hearing loss, right ear; Z68.21 Body mass index [BMI] 21.0-21.9, adult; L89.321 Pressure ulcer of left buttock, stage 1; K21.9 Gastro-esophageal reflux disease without esophagitis; F41.9 Anxiety disorder, unspecified; E78.5 Hyperlipidemia, unspecified; I27.20 Pulmonary hypertension, unspecified; Z98.1 Arthrodesis status
CPT/HCPCS: 36561; 36415; 71045; 76000; 80048; 80053; 81001; 82948; 83735; 83880; 84443; 84484; 85025; 93005; 93270; 93308; 94761; 97161; C1788; G0378; J0665; J0690; J1642; J1650; J2250; J2371

== ENCOUNTER 2024-06-13 15:52 | Inpatient (IN) | payer MEDICARE, SELFPAY ==
[2024-06-13] VITALS (22 sets, daily range): BP systolic 77–121; BP diastolic 53–95; PULSE 93–156; TEMP 36.5–36.7; O2SAT 84–126; BMI 19.7; BMI 21.4
--- OUTSIDE RECORDS SUMMARY | 2024-06-13 16:03 | XMS_ITS | CCD ---
Author Organization [facility] Care Team Providers Care Child And Family Counselor Name Role Phone PHYSICIAN, DEFAULT Unavailable Unavailable PHYSICIAN, DEFAULT Unavailable Unavailable PHYSICIAN, DEFAULT Unavailable Unavailable PHYSICIAN, DEFAULT Unavailable Unavailable PHYSICIAN, DEFAULT Unavailable Unavailable PHYSICIAN, DEFAULT Unavailable Unavailable UNKNOWN, PROVIDER Unavailable Unavailable UNKNOWN, PROVIDER Unavailable Unavailable YFN MATA Unavailable Unavailable YFN MATA Unavailable Unavailable AILIN BAKER Admitting Unavailable AILIN BAKER Attending Unavailable AILIN BAKRE Primary Care Unavailable RAY, AILIN Admitting Unavailable AILIN BAKER Attending Unavailable AILIN BAKER Consulting Unavailable AILIN BAKER Primary Care Unavailable AILIN BAKER Attending Unavailable YFN MATA Primary Care Unavailable AILIN BAKER Consulting Unavailable RAY AILIN Admitting Unavailable ILAN TODD Attending Unavailable ILAN TODD Consulting Unavailable ILAN TODD Admitting Unavailable AILIN BAKER Primary Care Unavailable AMARIS WALKER Consulting Unavailable AILIN GREEN Primary Care Physician [phone] JEROD MANUEL Attending Unavailable JEROD MANUEL Attending Unavailable DO González Moon Primary Care Provider MD Hoang Strange Attending Provider [phone] MD Jassi Clemens Attending Provider [phone] Ailin Green MD Unavailable Peter ELLIS, Ailin Unavailable YANNA HERBERT Attending Unavailable MD Sonia Donnelly Attending Provider [phone] MEHRDAD Green Primary Care Provider [phone] Jassi Clemens Attending Unavailable Jassi Clemens Admitting Unavailable González Moon Primary Care Unavailable Hoang Strange Admitting Unavailable Hoang Strange Attending Unavailable Ailin Green Primary Care Unavailable Sonia Donnelly Attending Unavailable Sonia Donnelly Admitting Unavailable NILL, Jassi Aranda Attending Unavailable NILL, Jassi Aranda Attending Unavailable NILL, Jassi Aranda Attending Unavailable NILL, Jassi Aranda Attending Unavailable POP, Moody Aranda Attending Unavailable POP, Moody Aranda Attending Unavailable PETER, AILIN S Referring Unavailable NILL, Jassi Aranda Attending Unavailable POP, Moody Aranda Attending Unavailable Allergies Allergy Classification Reported Allergen(s) Allergy Type Date of Onset Reaction(s) Facility (2 sources) No Known Allergies; 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: [No Known Allergies] Propensity to adverse reactions (disorder) 7 [facility] Repository (1 source) empagliflozin; 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: [EMPAGLIFLOZIN] Drug Allergy 4 [facility] Repository (1 source) Unable to Assess Drug allergy (disorder) [address] [place] [address] Repository (1 source) No Known Medication Allergies; 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: [No Known Medication Allergies] Propensity to adverse reactions (disorder) [facility] Repository Medications Current Medications Medication Drug Class(es) Dates Sig (Normalized) Sig (Original) amLODIPine 10 mg oral tablet (1 source) Dihydropyridine Calcium Channel Erick Start: 01-21-2024 amLODIPine 10 mg Tab 90 tab(s), 0 Refill(s), Refills(s) 0 Start Date: 01/21/24 Status: Ordered atorvastatin 10 mg oral tablet (4 sources) HMG-CoA Reductase Inhibitor Start: 04-30-2024 take 1 tablet by mouth once daily atorvastatin 10 mg Tab 10 mg = 1 tab(s), Oral, Daily, Refills(s) 0 Start Date: 04/30/24 Status: Ordered Start: 01-21-2024 atorvastatin 4 0 mg Tab 90 tab(s), 0 Refill(s), Refills(s) 0 Start Date: 01/21/24 Status: Ordered carvedilol 6.25 mg oral tablet (4 sources) alpha-Adrenergic Erick, beta-Adrenergic Erick Start: 04-30-2024 [...] ml insulin glargine 100 unt/ml pen injector (3 sources) Insulin Analog Start: 04-25-2024 Lantus Solostar Pen 100 units/mL subcutaneous solution 20 unit(s), SubCutaneous, Once a day (at bedtime), Refills(s) 0 Start Date: 04/25/24 Status: Ordered liothyronine sodium 0.005 mg oral tablet (2 sources) l-Triiodothyronine Start: 05-27-2024 take 1 tablet by mouth once daily liothyronine 5 mcg Tab 5 mcg = 1 tab(s), Oral, Daily, Refills(s) 0 Start Date: 05/27/24 Status: Ordered losartan potassium 100 mg oral tablet (4 sources) Angiotensin 2 Receptor Erick Start: 01-21-2024 take 1 tablet by mouth once daily losartan 100 mg Tab 100 mg = 1 tab(s), Oral, Daily, Refills(s) 0 Start Date: 01/21/24 Status: Ordered metFORMIN hydrochloride 1000 mg oral tablet (4 sources) Biguanide Start: 01-21-2024 take 1 tablet by mouth once daily metformin 1000 mg Tab 1,000 mg = 1 tab(s), Oral, Daily, Refills(s) 0 Start Date: 01/21/24 Status: Ordered ondansetron 4 mg oral tablet (2 sources) Serotonin-3 Receptor Antagonist Start: 05-27-2024 ondansetron 4 mg Tab as directed, Refills(s) 0 Start Date: 05/27/24 Status: Ordered prochlorperazine 10 mg oral tablet (2 sources) Phenothiazine Start: 05-27-2024 prochlorperazine 10 mg Tab as directed, Refills(s) 0 Start Date: 05/27/24 Status: Ordered SITagliptin 100 mg oral tablet (4 sources) Dipeptidyl Peptidase 4 Inhibitor Start: 01-21-2024 take 1 tablet by mouth once daily Januvia 100 mg Tab 100 mg = 1 tab(s), Oral, Daily, Refills(s) 0 Start Date: 01/21/24 Status: Ordered tamsulosin hydrochloride 0.4 mg oral capsule (4 sources) alpha-Adrenergic Erick Start: 01-21-2024 End: 01-15-2025 take 1 capsule by mouth once daily Flomax 0.4 mg Cap 0.4 mg = 1 cap(s), Oral, Daily, Stop taking if experiencing dizziness or lightheadedness., X 90 day(s), # 90 cap(s), Refills(s) 3, Pharmacy: [facility] Delivery, 187, cm, 01/21/24 11:48:00 EDT, Height/Length Dosing, 118, kg, 01/21/24 11:48:00 EDT, Weight Dosing Start Date: 01/21/24 Stop Date: 01/15/25 Status: Ordered traMADol hydrochloride 50 mg oral tablet (2 sources) Opioid Agonist Start: 05-27-2024 traMADOL 50 mg Tab as directed, Refills(s) 0 Start Date: 05/27/24 Status: Ordered Completed/Discontinued Medications Medication Drug Class(es) Dates Sig (Normalized) Sig (Original) ciprofloxacin 500 mg oral tablet (4 sources) Quinolone Antimicrobial Start: 01-21-2024 Cipro 500 mg Tab 500 mg = 1 tab(s), Oral, As Directed, Patient to take 1 tab the day before procedure and the 2nd tab the day of procedure once completed, # 2 tab(s), Refills(s) 0, Pharmacy: [id number], 187, cm, 01/21/24 11:48:00 EDT, Height/Length Dosing, 118, kg, 01/21/24 11:48:00 EDT, Weight Dosing Start Date: 01/21/24 Status: Ordered Problems Active Problems Problem Classification Problem Date Documented Date Episodic/Chronic Anxiety disorders (3 sources) Anxiety 04-25-2024 Chronic Cardiac dysrhythmias (2 sources) Atrial premature depolarization; 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: [Atrial premature depolarization] Onset: 02-25-2024 Chronic Complications of surgical procedures or medical care (2 sources) Hypotension due to drugs; 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: [Hypotension due to drugs] Onset: 03-28-2024 Episodic Diabetes mellitus without complication (5 sources) Type 2 diabetes mellitus without complications; 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: [Diabetes mellitus] Onset: 2017 01-21-2024 Chronic Diabetes mellitus without complication (9 sources) Other abnormal glucose; 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: [Glycosuria] Onset: 08-26-2021 Episodic Disorders of lipid metabolism (7 sources) Hyperlipidemia, unspecified; 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: [Hyperlipidemia] Onset: 08-31-2021 01-21-2024 Chronic Essential hypertension (8 sources) Essential (primary) hypertension; 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: [Hypertensive disorder] Onset: 06-20-2017 01-21-2024 Chronic Heart valve disorders (10 sources) Nonrheumatic mitral (valve) insufficiency; 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: [Nonrheumatic aortic (valve) stenosis] Onset: 2017 Chronic Hodgkin`s disease (1 source) Nodular sclerosis Hodgkin lymphoma, 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; 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: [Hodgkin disease, nodular sclerosis of lymph nodes of upper limb] Onset: 06-03-2024 Chronic Hodgkin`s disease (2 sources) Hodgkin`s disease 06-03-2024 Hyperplasia of prostate (6 sources) Benign prostatic hypertrophy with outflow obstruction; 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: [Benign prostatic hyperplasia with lower urinary tract symptoms] Onset: 01-21-2024 Chronic Lymphadenitis (4 sources) Localized enlarged lymph nodes; 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: [Localized enlarged lymph nodes] Onset: 04-30-2024 Episodic Non-Hodgkin`s lymphoma (3 sources) Non-Hodgkin's lymphoma (clinical); 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: [Non-Hodgkin lymphoma, unspecified, 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] Onset: 05-29-2024 05-27-2024 Chronic Other and unspecified benign neoplasm (3 sources) 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 Comment on above: Outside Source Comme nt: Comment on above: removed- right ear Other circulatory disease (2 sources) Difficult venous access 06-03-2024 Episodic Other diseases of bladder and urethra (2 sources) Detrusor overactivity; 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: [Overactive bladder] Onset: 01-21-2024 Chronic Other diseases of bladder and urethra (4 sources) Overactive bladder 01-21-2024 Chronic Other diseases [...] brain disorder 01-21-2024 Episodic Pulmonary heart disease (3 sources) Pulmonary arterial hypertension 04-25-2024 Chronic Residual codes; unclassified (4 sources) Sleep apnea 01-21-2024 Chronic Respiratory failure; insufficiency; arrest (1 source) Dependence on supplemental oxygen; 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: [DEPENDENCE ON SUPPLEMENTAL OXYGEN] Onset: 2017 Chronic Unclassified (3 sources) Obstructive sleep apnea (adult) (pediatric); 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: [OBSTRUCTIVE SLEEP APNEA (ADULT) (PEDIATRIC)] Onset: 2017 Chronic Unclassified (8 sources) Abnormal result of other cardiovascular function study; 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: [Encounter for screening for malignant neoplasm of prostate] Onset: 2017 Episodic Unclassified (2 sources) Unknown / UNK(Unknown) Onset: 2017 Unclassified (1 source) 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) use of oral hypoglycemic drugs; 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: [INTERMEDIATE (CURRENT) USE OF ORAL 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 DRUGS] Onset: 2017 Unclassified (4 sources) Patient encounter status 01-21-2024 Viral infection (1 source) COVID-19; 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: [COVID-19] Onset: 12-08-2020 Past or Other Problems Problem Classification Problem Date Documented Da te Episodic/Chronic Other aftercare (1 source) 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 Performed By: #### I SCRE #### [address] [address] [facility] MR head/brain wo/w conon MR head/brain wo/w con [facility] Main [place] [address] [place], [place] [id number] MRI Report Signed Patient: Hoang Tran MR#: [id number] : 1955 Acct:[id number] Age/Sex: 68 / M ADM Date: 05/29/24 Loc: MR Room: Type: [facility] Attending Dr: Sonia Donnelly MD [...] Alexis Patel M.D.05/29/2024 1:38 PM Dictation Location: [place] [address] Transcribed By: ANDRIA 05/29/24 1338 Dictated By: Alexis Patel II, MD 05/29/24 1325 Signed By: 05/29/24 1338 Normal [facility] No Panel InformationOrdered By: Sonia Donnelly on 05-29-2024 Bedside Estimated GFR (eGFR) > 60.0 [facility] Whole blood creatinine measu rementOrdered By: Sonia Donnelly on 05-29-2024 Creatinine [Mass/Vol] 0.8 mg/dL Normal 0.6-1.3 [facility] Comment on above: ER/ESD physician is notified/shown all ISTAT results.Critical values may be confirmed by laboratory testing ifdeemed necessary by ER attending doctor. Result Comment: ER/E SD physician is notified/shown all ISTAT results. Critical values may be confirmed by laboratory testing if deemed necessary by ER attending doctor. Performed By: #### I SCRE #### [facility] [address] [place] [address] XR pre/post mri xrayon 05-29 XR pre/post mri xray [facility] [address] MRI Report Signed Patient: Hoang Tran MR#: [id number] : 1955 Acct:[id number] Age/Sex: 68 / M ADM Date: 05/29/24 Loc: MR Room: Type: [facility] Attending Dr: Sonia Donnelly MD Copies to: Sonia Donnelly MD Ordering Provider: Sonia Donnelly MD Date of Service: 05/29/24 MR/MR cervical spine wo/w con: C85.90, C85.94, C85.11 ([id number]) XR/XR pre/post mri xray: C85.90, C85.94, C85.11 [...] Alexis Patel M.D.05/29/2024 1:00 PM Dictation Location: [facility]--24 Transcribed By: ANDRIA 05/29/24 1300 Dictated By: Alexis Patel II, MD 05/29/24 1254 Signed By: 05/29/24 1300 Normal [facility] Ambulatory Visit Summaryon 0 04-30-2024 Ambulatory Visit Summary Ambulatory Visit Summary HOANG TRAN :1955 Visit Date:04/30/2024 Ambulatory Visit Instructions Your Diagnosis Lymphadenopathy, axillary Your Care Team Attending Physician - Jassi CLEMENS MD Primary Care Physician - AILIN GREEN [...] ELLIS, Moody Aranda Where: [facility] [place] [id number]- Medications What How Much When Instructions Unchanged [...] for choosing us for your care. Normal [facility] General Surgery Office/Clini c Noteon 04-30-2024 General Surgery Office/Clinic Note General Surgery Office/Clinic Note Chief Complaint post operative follow up HPI Staff 7 day post operative follow up post incisional biopsy right axilla adenopathy completed while inpatient at [facility]. Denies soreness, bleeding or drainage. History [...] 04/30/2024 Family History Heart disease: Mother. Normal [facility] Comment on above: Result Comment: Elec tronically Signed By: AIRAM ELLIS, Jassi Nazario.br\Date and Time Signed: 04/30/24 14:51 EDT Robert 04-23-2024 L Specimen: [id number] R eceived: 04/23/24 Status: MERNA Rivera Num: [id number] Spec Type: Surgical Subm Dr: Jassi Clemens MD FACS Tissues: A Lymph Node - Biopsy (Needle or Incisional) (R AXILLARY LYMPH NODE BX) Procedures: CD45/2, HE/4, Gross/Micro L4, AE1-AE3, BCL-2, BCL-6, CD10, CD20, CD23, CD3, CD30/2, CD5, PAX5/2 Age/ Patient Sex Location Account Attending Physician Hoang Tran 68/M LABELL [id number] Jassi Clemens MD FACS SPEC NUM: [id number] RECD: 04/23/24 STATUS: MER[facility] RIVERA NUM: [id number] RANJITH: 04/23/[address]: Jassi Clemens MD FACS ENTERED: 04/23/[address] [facility] [address]: SPEC TYPE: Surgical DEPT: LUANA MOYER ENTERED BY: [id number] RECV BY: [id number] ORDERED: CD45/2, HE/4, Gross/Micro L4, AE1-AE3, BCL-2, BCL-6, CD10, CD20, CD23, CD3, CD30/2, CD5, PAX5/2 ORDERED: CD45/2, HE/4, Gross/Micro L4, AE1-AE3, BCL-2, BCL-6, CD10, CD20, CD23, CD3, CD30/2, CD5, PAX5/2, USS/7 Supplemental Report Addendum 3 Entered: 05/15/24-4 Supplemental for addended consultation report from [facility] Addendum -Repeat MUM1 immunostain does in fact stain the focal large atypical cells -No change in final diagnosis Addendum Signed (signature on file) Kin-Gama Lauren MD 05/15/24 1014 -- Addendum 2 Entered: 05/14/24 Supplemental for findings of consultation report from [facility]: -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 -- Specimen: [id number] Received: 04/23/24 Status: MERNA Rivera Num: [id number] Spec Type: Surgical Subm Dr: Jassi Clemens MD FACS Tissues: A Lymph Node - Biopsy (Needle or Incisional) (R AXILLARY LYMPH NODE BX) Procedures: CD45/2, HE/4, Gross/Micro L4, AE1-AE3, BCL-2, BCL-6, CD10, CD20, CD23, CD3, CD30/2, CD5, PAX5/2 -- Patient: Hoang Tran [id number] (Continued) -- Specimen: [id number] Received: 04/23/24 (Continued) Supplemental Report (Continued) Signed (signature on file) Trinity Lauren MD 05/01/24 165 -- Specimen: [id number] Received: 04/23/24 Status: MERNA Rivera Num: [id number] Spec Type: Surgical Subm Dr: Jassi Clemens MD FACS Tissues: A Lymph Node - Biopsy (Needle or Incisional) (R AXILLARY LYMPH NODE BX) Procedures: CD45/2, HE/4, Gross/Micro L4, AE1-AE3, BCL-2, BCL-6, CD10, CD20, CD23, CD3, CD30/2, CD5, PAX5/2 -- Patient: Hoang Tran [id number] (Continued) -- Specimen: [id number] Received: 04/23/24 (Continued) Supplemental Report (Continued) lymphocytes -See comment Addendum Signed (signature on file)Sandra_Steven Lauren MD 05/14/24 1437 -- Addendum 1 Entered: 05/07/24 Supplemental for findings of Flow Cytometry report from [facility] -No significant lymphoid immunophenotypic abnormalities [...] contributory. -[facility] is no significant lymphoid (more content not included)... Normal [facility] Robert 04-11-2024 L Specimen: [id number] R eceived: 04/14/24 Status: [facility] Re Num: [id number] Spec Type: Surgical Subm Dr: Hoang Strange MD Tissues: A Lymph Node - Biopsy (Needle or Incisional) (R AXILLA LYMPH NODE) B Gross Only (LYMPH NODE) Procedures: HE/2, Gross/Micro L4, Level 1 Gross Age/ Patient Sex Location Account Attending Physician Hoang Tran 68/M LABELL [id number] Hoang Strange MD SPEC NUM: [id number] RECD: 04/14/24 STATUS: [facility] NUM: [id number] RANJITH: 04/11/24 DR: Hoang Strange MD ENTERED: 04/14/[address] [facility] [address]: Gregg Flores SPEC TYPE: Surgical DEPT: LUANA MOYER ENTERED BY: [id number] RECV BY: [id number] ORDERED: HE/2, Gross/Micro L4, Level 1 Gross ORDERED: HE/2, Gross/Micro L4, Level 1 Gross Supplemental Report Addendum 2 Entered: 09/16/24-1306 Supplemental for findings of consultation report from [facility]: A, -Extremity limited specimen compatible with malignancy, see comment Addendum Signed (signature on file) Trinity Lauren MD 04/21/24 1307 -- Addendum 1 Entered: 04/18/249773 Supplemental for findings of flow [facility]: -Tests canceled -This test is canceled due to poor sample quality / poor viability -- Specimen: [id number] Received: 04/14/24 Status: MERNA Miguel Num: [id number] Spec Type: Surgical Subm Dr: Hoang Strange MD Tissues: A Lymph Node - Biopsy (Needle or Incisional) (R AXILLA LYMPH NODE) B Gross Only (LYMPH NODE) Procedures: HE/2, Gross/Micro L4, Level 1 Gross -- Patient: Hoang Tran [id number] (Continued) -- Specimen: [id number] Received: 04/14/24 (Continued) Supplemental Report (Continued) Signed (signature on file) Trinity Lauren MD 04/17/24 1127 -- Specimen: [id number] Received: 04/14/24 Status: MERNA Miguel Num: [id number] Spec Type: Surgical Subm Dr: Hoang Strange MD Tissues: A Lymph Node - Biopsy (Needle or Incisional) (R AXILLA LYMPH NODE) B Gross Only (LYMPH NODE) Procedures: HE/2, Gross/Micro L4, Level 1 Gross -- Patient: Hoang Tran [id number] (Continued) -- Specimen: [id number] Received: 04/14/24-1045 (Continued) Supplemental Report (Continued) Addendum [...] to an outside facility. DM -- Specimen: [id number] Received: 04/14/24 Status: MERNA Rivera Num: [id number] Spec Type: Surgical Subm Dr: Hoang Strange MD Tissues: A Lymph Node - Biopsy (Needle or Incisio (more content not included)... Normal [facility] Office Visiton 03-28-2024 Follow-up visit [id number] JuanygiaAllen carol W 1955 M Date Provider Department Center 03/28/2024 JEROD BANKS ELIAS Rosario Family History Problem Relation Age of Onset Coronary artery disease Mother Family Status - Relation Status Age at Mother Level of Service:80746 UT OFFICE/OUTPATIENT ESTABLISHED MOD MDM 30 MIN Normal [facility] Office Visiton 02-25-2024 Follow-up visit [id number] IreneAllen carol W 1955 M Date Provider Department Center 02/25/2024 JEROD BANKS Family History Problem Relation Age of Onset Coronary artery disease Mother Family Status - Relation Status Age at Mother Level of Service:39311 UT OFFICE/OUTPATIENT NEW MODERATE MDM 45 MINUTES Normal [facility] Insurance Correspondenceon 0 01-30-2024 Insurance Correspondence [id number]#1.00TIFF Normal [facility] Consent for Procedure/Surger yon 01-22-2024 Consent for Procedure/Surgery [id number]#1.00TIFF Normal [facility] Physician Referralon 024 Physician Referral [id number]#1.00TIFF Normal [facility] Screenson 01-22-2024 Screens [id number]#1.00TIFF Normal [facility] Ambulatory Visit Summaryon 0 01-21-2024 Ambulatory [...] Follow Up with DONN ELLIS, Moody Aranda, [facility]RRuf[facility] When: Where: [facility] [address], [facility] [place] [address]- Medications What When Instructions Unchanged amlodipine (amLODIPine [...] urine (ur (more content not included)... Normal [facility] Patient Educationon 01-21-20 Patient Education Urology [...] Follow these instructions at home: ? Take favu-pir-tvqdyyx and prescription medicines only as told by [...] the medicine (more content not included)... Normal [facility] INSULINon 08-27-2021 Insulin 19.2 uIU/mL Normal 2.6-24.9 [facility] Comment on above: Performed By: #### I NSULIN #### [facility] [address] [place] [address] Dr. oFrrest Lauren CBC AUTO DIFFon 08-26-2021 BASO # 0.1 103/ul Normal 0.0-0.1 [facility] Comment on above: Performed By: #### P SASC #### [facility] [address] [place] [address] Dr. Forrest Lauren Basophils/100 WBC (Bld) 0.8 % Normal 0.2-2.0 [facility] Comment on above: Performed By: #### P SASC #### [facility] [address] [place] [address] [address] Forrest Lauren EO # 0.4 103/ul Normal 0.0-0.7 [facility] Comment on above: Performed By: #### P SASC #### [facility] [address] [place] [address] Dr. Forrest Lauren Eosinophils/100 WBC (Bld) 4.8 % Normal 0.9-7.0 [facility] Comment on above: Performed By: #### P SASC #### [facility] [address] [place] [address] Dr. Forrest Lauren Erythrocyte distribution width (RBC) [Ratio] 12.7 % Normal 11.0-15.0 [facility] Comment on above: Performed By: #### P SASC #### [facility] [address] [place] [address] Dr. Forrest Lauren Hematocrit (Bld) [Volume fraction] 48.3 % Normal 42.0-54.0 [facility] Comment on above: Performed By: #### P SASC #### [facility] [address] [place] [address] [address] Forrest Lauren Hemoglobin (Bld) [Mass/Vol] 16.4 g/dL Normal 14.0-18.0 [facility] Comment on above: Performed By: #### P SASC #### [facility] [address] [place] [address] [address] Forrest Lauren IG # 0.05 10e3/ul Critically high 0.00-0.03 [facility] Comment on above: Performed By: #### P SASC #### [facility] [address] [place] [address] [address] Forrest Lauren IG % 0.6 % Critically high 0.0-0.5 [facility] Comment on above: Performed By: #### P SASC #### [facility] [address] [place] [address] [address] Forrest Lauren LYMPH # 2.0 103/ul Normal 1.2-3.8 [facility] Comment on above: Performed By: #### P SASC #### [facility] [address] [place] [address] [address] Forrest Lauren Lymphocytes/100 WBC (Bld) 22.6 % Normal 20.5-60.0 [facility] Comment on above: Performed By: #### P SASC #### [facility] [address] [place] [address] [address] Forrest Lauren MANUAL DIFF REQ NO Normal [facility] Comment on above: Performed By: #### P SASC #### [facility] [address] [place] [address] [address] Forrest Lauren MCH (RBC) [Entitic mass] 29.8 pg Normal 25.9-34.0 [facility] Comment on above: Performed By: #### P SASC #### [facility] [address] [place] [address] [address] Forrest Lauren MCHC (RBC) [Mass/Vol] 34.0 g/dL Normal 29.9-35.2 [facility] Comment on above: Performed By: #### P SASC #### [facility] [address] [place] [address] [address] Forrest Lauren MCV (RBC) [Entitic vol] 87.8 fL Normal 80.0-94.0 [facility] [facility] Comment on above: Performed By: #### P SASC #### [facility] [address] [address] [address] Forrest Lauren MONO # 0.7 103/ul Normal 0.3-0.8 [facility] Comment on above: Performed By: #### P SASC #### [facility] [address] [address] [address] Forrest Lauren Monocytes/100 WBC (Bld) 8.0 % Normal 1.7-12.0 [facility] Comment on above: Performed By: #### P SASC #### [facility] [address] [place] [address] Dr. Forrest Lauren NEUT # 5.7 103/ul Normal 1.4-6.5 [facility] Comment on above: Performed By: #### P SASC #### [facility] [address] [place] [address] Dr. Forrest Lauren Neutrophils/100 WBC (Bld) 63.2 % Normal 43.0-75.0 [facility] Comment on above: Performed By: #### P SASC #### [facility] [address] [address] [address] Forrest Lauren Platelet mean volume (Bld) [Entitic vol] 9.7 fL Normal 9.5-13.5 [facility] Comment on above: Performed By: #### P SASC #### [facility] [address] [place] [address] Dr. Forrest Lauren PLT 242 103/ul Normal 150-450 [facility] Comment on above: Performed By: #### P SASC #### [facility] [address] [address] [address] Forrest Lauren RBC 5.50 106/ul Normal 4.70-6.10 [facility] Comment on above: Performed By: #### P SASC #### [facility] [address] [address] [address] Forrest Lauren WBC 9.0 103/ul Normal 4.0-11.0 [facility] Comment on above: Performed By: #### P SASC #### [facility] [address] [address] [address] Forrest Lauren GLYCOHEMOGLOBIN A1Con 2021 ADA RECOMMENDATION ADA THERAPEUTIC TARG ET 6.0 - 7.0 ACTION SUGGESTED > 7.0 Normal [facility] Comment on above: Performed By: #### A 1C #### [facility] [address] [address] [address] Forrest Lauren Glucose [Mass/Vol] 194 mg/dL Normal [facility] Comment on above: Performed By: #### A 1C #### [facility] [address] [place] [address] Dr. Forrest Lauren HbA1c (Bld) [Mass fraction] 8.4 % Critically high <=6.0 [facility] Comment on above: Performed By: #### A 1C #### [facility] [address] [place] [address] Dr. Forrest Lauren LIPID PROFILEon 08-26-2021 CHOL-HDL RATIO NORM SEE BELOW Normal [facility] Comment on above: Result Comment: 3.3 - 4.4 LOW RISK 4.4 - 7.1 AVERAGE RISK 7.1 - 11.0 MODERATE RISK >11.0 HIGH RISK Performed By: #### P SASC #### [facility] [address] [place] [address] Dr. Forrest Lauren Cholesterol [Mass/Vol] 117 mg/dL Normal <=200 [facility] Comment on above: Performed By: #### P SASC #### [facility] [address] [place] [address] Dr. Forrest Lauren Cholesterol in HDL [Mass/Vol] 43 mg/dL Normal [facility] Comment on above: Performed By: #### P SASC #### [facility] [address] [address] [address] Forrest Lauren Cholesterol in LDL [Mass/Vol] 45.6 mg/dL Normal [facility] Comment on above: Performed By: #### P SASC #### [facility] [address] [address] [address] Forrest Lauren Cholesterol.total/C holesterol in HDL [Mass ratio] 2.7 {ratio} Normal [facility] Comment on above: Performed By: #### P SASC #### [facility] [address] [address] [address] Forrest Lauren HDL NORMAL > or = 60 mg/dl - LO W CARDIOVASCULAR RISK <40 mg/dl - HIGH CARDIOVASCULAR RISK Normal [facility] Comment on above: Performed By: #### P SASC #### [facility] [address] [address] [address] Forrest Lauren LDL CALC NORMAL SEE BELOW Normal [facility] Comment on above: Result Comment: <100 mg/dl OPTIMAL 100 - 129 mg/dl NEAR OR ABOVE OPTIMAL 130 - 159 mg/dl BORDERLINE HIGH 160 - 189 mg/dl HIGH >190 mg/dl VERY HIGH Performed By: #### P SASC #### [facility] [address] [address] [address] Forrest Lauren Triglyceride [Mass/Vol] 142 mg/dL Normal <=150 [facility] Comment on above: Performed By: #### P SASC #### [facility] [address] [address] [address] Forrest Lauren VLDL CALC 28.4 mg/dL Normal [facility] Comment on above: Performed By: #### P SASC #### [facility] [address] [address] [address] Forrest Lauren PROF 14(COMP METB)on 022 Albumin [Mass/Vol] 4.1 g/dL Normal 3.5-5.0 [facility] Comment on above: Performed By: #### P SASC #### [facility] [address] [place] [address] Dr. Forrest Lauren Albumin/Globulin [Mass ratio] 1.2 {ratio} Normal [facility] Comment on above: Performed By: #### P SASC #### [facility] [address] [address] [address] Forrest Lauren ALP [Catalytic activity/Vol] 82 U/L Normal 38-126 [facility] Comment on above: Performed By: #### P SASC #### [facility] [address] [place] [address] Dr. Forrest Lauren ALT [Catalytic activity/Vol] 38 U/L Normal 21-72 [facility] Comment on above: Performed By: #### P SASC #### [facility] [address] [place] [address] Dr. Forrest Lauren Anion gap [Moles/Vol] 12.7 mmol/L Normal [facility] Comment on above: Performed By: #### P SASC #### [facility] [address] [place] [address] Dr. Forrest Lauren AST [Catalytic activity/Vol] 18 U/L Normal 17-59 [facility] Comment on above: Performed By: #### P SASC #### [facility] [address] [place] [address] Dr. Forrest Lauren Bilirubin [Mass/Vol] 1.2 mg/dL Normal 0.2-1.3 [facility] Comment on above: Performed By: #### P SASC #### [facility] [address] [place] [address] Dr. Forrest Lauren Calcium [Mass/Vol] 9.7 mg/dL Normal 8.4-10.2 [facility] Comment on above: Performed By: #### P SASC #### [facility] [address] [place] [address] Dr. Forrest Lauren Chloride [Moles/Vol] 102 mmol/L Normal 98-107 [facility] Comment on above: Performed By: #### P SASC #### [facility] [address] [place] [address] Dr. Forrest Lauren CO2 [Moles/Vol] 30.6 mmol/L Critically high 22.0-30.0 [facility] Comment on above: Performed By: #### P SASC #### [facility] [address] [place] [address] Dr. Forrest Lauren Creatinine [Mass/Vol] 1.09 mg/dL Normal 0.66-1.25 [facility] Comment on above: Performed By: #### P SASC #### [facility] [address] [address] [address] Forrest Lauren EGFR-AF ITALIAN >60 Normal >=60 [facility] Comment on above: Performed By: #### P SASC #### [facility] [address] [address] [address] Forrest Lauren EGFR-NON AF ITALIAN >60 Normal >=60 [facility] Comment on above: Performed By: #### P SASC #### [facility] [address] [place] [address] Dr. Forrest Lauren Globulin (S) [Mass/Vol] 3.4 g/dL Normal [facility] Comment on above: Performed By: #### P SASC #### [facility] [address] [place] [address] Dr. Forrest Lauren Glucose [Mass/Vol] 238 mg/dL Critically high 74-106 [facility] Comment on above: Performed By: #### P SASC #### [facility] [address] [place] [address] Dr. Forrest Lauren Potassium [Moles/Vol] 4.3 mmol/L Normal 3.4-5.0 [facility] Comment on above: Performed By: #### P SASC #### [facility] [address] [place] [address] Dr. Forrest Lauren Protein [Mass/Vol] 7.5 g/dL Normal 6.1-8.2 [facility] Comment on above: Performed By: #### P SASC #### [facility] [address] [place] [address] Dr. Forrest Lauren Sodium [Moles/Vol] 141 mmol/L Normal 137-145 [facility] Comment on above: Performed By: #### P SASC #### [facility] [address] [address] [address] Forrest Lauren Urea nitrogen [Mass/Vol] 20.0 mg/dL Normal 9.0-20.0 [facility] Comment on above: Performed By: #### P SASC #### [facility] [address] [place] [address] Dr. Forrest Lauren Urea nitrogen/Creatinine [Mass ratio] 18.3 mg/mg Normal [facility] Comment on above: Performed By: #### P SASC #### [facility] [address] [place] [address] Dr. Forrest Lauren URIC ACID SERUMon 08-26-2021 Urate [Mass/Vol] 4.8 mg/dL Normal 3.5-8.5 [facility] Comment on above: Performed By: #### P SASC #### [facility] [address] [place] [address] Dr. Forrest Lauren Covid-19 PCR ([facility])on Sample Type Test performed using RT-PCR from a nasopharyngeal collected specimen. Normal [facility] Comment on above: Performed By: #### P SASC #### [facility] [address] [place] [address] Dr. Forrest Lauren SARS-CoV-2 (COVID-19) RNA MERA+probe Ql (Unsp spec) Detected Abnormal NOT DETECTED [facility] Comment on above: Result Comment: This test is not yet approved or cleared by the [place] FDA. When there are no FDA-approved or cleared tests available, and other criteria are met, FDA can make tests available under an emergency access mechanism called an Emergency Use Authorization (EUA). The EUA for this test is supported by the [place] of Health and Human Service's (HHS's) declaration [...] used). Performed By: #### P SASC #### [facility] [address] [place] [address] Dr. Forrest Lauren POINT OF CARE GLUCOSEon 05-0 Glucose [Mass/Vol] 255 mg/dL Critically high 74-106 T [facility] Comment on above: Performed By: #### P OCGLUC #### [facility] [address] [place], [place] [id number] Matias Evelyn XR CHEST 1 Von 12-07-2020 [...] AMARIS WALKER Date: 2020-12-06 22:04 Normal [facility] INSULINon 10-02-2020 Insulin 16.9 uIU/mL Normal 2.6-24.9 [facility] Comment on above: Performed By: #### P SASC #### [facility] [address] [place] [address] Dr. Forrest Lauren CBC AUTO DIFFon 10-01-2020 BASO # 0.1 103/ul Normal 0.0-0.1 [facility] Comment on above: Performed By: #### C BC #### [facility] [address] [place] [address] Matias Evelyn Basophils/100 WBC (Bld) 0.6 % Normal 0.2-2.0 [facility] Comment on above: Performed By: #### C BC #### [facility] [address] [place] [address] Matias Evelyn EO # 0.4 103/ul Normal 0.0-0.7 [facility] Comment on above: Performed By: #### C BC #### [facility] [address] [place] [address] Matias Evelyn Eosinophils/100 WBC (Bld) 4.2 % Normal 0.9-7.0 [facility] Comment on above: Performed By: #### C BC #### [facility] [address] [place], [place] [id number] Matias Evelyn Erythrocyte distribution width (RBC) [Ratio] 13.1 % Normal 11.0-15.0 [facility] Comment on above: Performed By: #### C BC #### [facility] [address] [place] [address] Matias Evelyn Hematocrit (Bld) [Volume fraction] 50.2 % Normal 42.0-54.0 [facility] Comment on above: Performed By: #### C BC #### [facility] [address] [place] [address] Matias Evelyn Hemoglobin (Bld) [Mass/Vol] 16.6 g/dL Normal 14.0-18.0 [facility] Comment on above: Performed By: #### C BC #### [facility] [address] [place] [address] Matias Evelyn IG # 0.05 10e3/ul Critically high 0.00-0.03 [facility] Comment on above: Performed By: #### C BC #### [facility] [address] [place] [address] Matias Evelyn IG % 0.6 % Critically high 0.0-0.5 [facility] Comment on above: Performed By: #### C BC #### [facility] [address] [place] [address] Matias Evelyn LYMPH # 1.9 103/ul Normal 1.2-3.8 [facility] Comment on above: Performed By: #### C BC #### [facility] [address] [place] [address] Matias Evelyn Lymphocytes/100 WBC (Bld) 22.2 % Normal 20.5-60.0 [facility] Comment on above: Performed By: #### C BC #### [facility] [address] [place] [address] Matiaswali Rodasen MANUAL DIFF REQ NO Normal [facility] Comment on above: Performed By: #### C BC #### [facility] [address] [place] [address] Matias Evelyn MCH (RBC) [Entitic mass] 29.4 pg Normal 25.9-34.0 [facility] Comment on above: Performed By: #### C BC #### [facility] [address] [place], [place] [id number] Matias Rivas MCHC (RBC) [Mass/Vol] 33.1 g/dL Normal 29.9-35.2 [facility] Comment on above: Performed By: #### C BC #### [facility] [address] [place], [place] [id number] Matiaswali Rivas MCV (RBC) [Entitic vol] 88.8 fL Normal 80.0-94.0 [facility] Comment on above: Performed By: #### C BC #### [facility] [address] [place], [place] [id number] Matias Rivas MONO # 0.7 103/ul Normal 0.3-0.8 [facility] Comment on above: Performed By: #### C BC #### [facility] [address] [place], [place] [phone] Matiaswali Rodasen Monocytes/100 WBC (Bld) 7.7 % Normal 1.7-12.0 [facility] Comment on above: Performed By: #### C BC #### [facility] [address] [place], [place] [phone] Matiaswali Rodasen NEUT # 5.7 103/ul Normal 1.4-6.5 [facility] Comment on above: Performed By: #### C BC #### [facility] [address] [place], [place] [id number] Matias Evelyn Neutrophils/100 WBC (Bld) 64.7 % Normal 43.0-75.0 [facility] Comment on above: Performed By: #### C BC #### [facility] [address] [place], [place] [phone] Matias Evelyn Platelet mean volume (Bld) [Entitic vol] 10.4 fL Normal 9.5-13.5 [facility] Comment on above: Performed By: #### C BC #### [facility] [address] [place], [place] [phone] Matias Evelyn PLT 243 103/ul Normal 150-450 [facility] Comment on above: Performed By: #### C BC #### [facility] [address] [place] [address] Matias Evelyn RBC 5.65 106/ul Normal 4.70-6.10 [facility] Comment on above: Performed By: #### C BC #### [facility] [address] [address] Matias Evelyn WBC 8.7 103/ul Normal 4.0-11.0 [facility] Comment on above: Performed By: #### C BC #### [facility] [address] [place] [address] Matias Rivas FREE THYROXINE INDEX T7on FTI 2.11 Normal [facility] Comment on above: Performed By: #### U TARIK, CMP, T7, PSASC, TSH, LIPID #### [facility] [address] [place] [address] Matiaswali Rivas T3U 34.0 % Normal 23.5-40.5 [facility] Comment on above: Performed By: #### U TARIK, CMP, T7, PSASC, TSH, LIPID #### [facility] [address] [place] [address] Matiaswali Rivas T4 [Mass/Vol] 6.20 ug/dL Normal 5.53-11.00 [facility] Comment on above: Performed By: #### U TARIK, CMP, T7, PSASC, TSH, LIPID #### [facility] [address] [place] [address] Matiaswali Rivas GLYCOHEMOGLOBIN A1Con 2020 ADA RECOMMENDATION ADA THERAPEUTIC TARG ET 6.0 - 7.0 ACTION SUGGESTED > 7.0 Normal [facility] Comment on above: Performed By: #### A 1C #### [facility] [address] [place], [place] [id number] Matias Evelyn Glucose [Mass/Vol] 266 mg/dL Normal [facility] Comment on above: Performed By: #### A 1C #### [facility] [address] [place] [address] Matias Evelyn HbA1c (Bld) [Mass fraction] 10.9 % Critically high <=6.0 [facility] Comment on above: Performed By: #### A 1C #### [facility] [address] [address] Matias Rivas LIPID PROFILEon 10-01-2020 CHOL-HDL RATIO NORM SEE BELOW Normal [facility] Comment on above: Result Comment: 3.3 - 4.4 LOW RISK 4.4 - 7.1 AVERAGE RISK 7.1 - 11.0 MODERATE RISK >11.0 HIGH RISK Performed By: #### P SASC #### [facility] [address] [address] [address] Forrest Lauren Cholesterol [Mass/Vol] 110 mg/dL Normal <=200 [facility] Comment on above: Performed By: #### P SASC #### [facility] [address] [address] [address] Forrest Lauren Cholesterol in HDL [Mass/Vol] 36 mg/dL Normal [facility] Comment on above: Performed By: #### P SASC #### [facility] [address] [address] [address] Forrest Lauren Cholesterol in LDL [Mass/Vol] 36.2 mg/dL Normal [facility] Comment on above: Performed By: #### P SASC #### [facility] [address] [address] [address] Forrest Lauren Cholesterol.total/C holesterol in HDL [Mass ratio] 3.1 {ratio} Normal [facility] Comment on above: Performed By: #### P SASC #### [facility] [address] [address] [address] Forrest Lauren HDL NORMAL > or = 60 mg/dl - LO W CARDIOVASCULAR RISK <40 mg/dl - HIGH CARDIOVASCULAR RISK Normal [facility] Comment on above: Performed By: #### P SASC #### [facility] [address] [address] [address] Forrest Lauren LDL CALC NORMAL SEE BELOW Normal [facility] Comment on above: Result Comment: <100 mg/dl OPTIMAL 100 - 129 mg/dl NEAR OR ABOVE OPTIMAL 130 - 159 mg/dl BORDERLINE HIGH 160 - 189 mg/dl HIGH >190 mg/dl VERY HIGH Performed By: #### P SASC #### [facility] [address] [place] [address] Dr. Forrest Lauren Triglyceride [Mass/Vol] 189 mg/dL Critically high <=150 [facility] Comment on above: Performed By: #### P SASC #### [facility] [address] [address] [address] Forrest Lauren VLDL CALC 37.8 mg/dL Normal [facility] Comment on above: Performed By: #### P SASC #### [facility] [address] [address] [address] Forrest Lauren PROF 14(COMP METB)on 021 Albumin [Mass/Vol] 4.1 g/dL Normal 3.5-5.0 [facility] Comment on above: Performed By: #### U TARIK, CMP, T7, PSASC, TSH, LIPID #### [facility] [address] [place] [address] Matias Evelyn Albumin/Globulin [Mass ratio] 1.2 {ratio} Normal [facility] Comment on above: Performed By: #### U TARIK, CMP, T7, PSASC, TSH, LIPID #### [facility] [address] [place] [address] Matias Evelyn ALP [Catalytic activity/Vol] 80 U/L Normal 38-126 [facility] Comment on above: Performed By: #### U TARIK, CMP, T7, PSASC, TSH, LIPID #### [facility] [address] [place] [address] Matias Evelyn ALT [Catalytic activity/Vol] 42 U/L Normal 21-72 [facility] Comment on above: Performed By: #### U TARIK, CMP, T7, PSASC, TSH, LIPID #### [facility] [address] [place] [address] Matias Evelyn Anion gap [Moles/Vol] 12.3 mmol/L Normal [facility] Comment on above: Performed By: #### U TARIK, CMP, T7, PSASC, TSH, LIPID #### [facility] [address] [address] Matias Evelyn AST [Catalytic activity/Vol] 24 U/L Normal 17-59 [facility] Comment on above: Performed By: #### U TARIK, CMP, T7, PSASC, TSH, LIPID #### [facility] [address] [address] Matias Evelyn Bilirubin [Mass/Vol] 1.3 mg/dL Normal 0.2-1.3 [facility] Comment on above: Performed By: #### U TARIK, CMP, T7, PSASC, TSH, LIPID #### [facility] [address] [place] [address] Matias Evelyn Calcium [Mass/Vol] 9.3 mg/dL Normal 8.4-10.2 [facility] Comment on above: Performed By: #### U TARIK, CMP, T7, PSASC, TSH, LIPID #### [facility] [address] [place] [address] Matias Evelyn Chloride [Moles/Vol] 103 mmol/L Normal 98-107 [facility] Comment on above: Performed By: #### U TARIK, CMP, T7, PSASC, TSH, LIPID #### [facility] [address] [place] [address] Matias Evelyn CO2 [Moles/Vol] 30.0 mmol/L Normal 22.0-30.0 [facility] Comment on above: Performed By: #### U TARIK, CMP, T7, PSASC, TSH, LIPID #### [facility] [address] [place] [address] Matias Evelyn Creatinine [Mass/Vol] 1.20 mg/dL Normal 0.66-1.25 [facility] Comment on above: Performed By: #### U TARIK, CMP, T7, PSASC, TSH, LIPID #### [facility] [address] [place] [address] Matias Evelyn EGFR-AF ITALIAN >60 Normal >=60 [facility] Comment on above: Performed By: #### U TARIK, CMP, T7, PSASC, TSH, LIPID #### [facility] [address] [address] Matias Evelyn EGFR-NON AF ITALIAN >60 Normal >=60 [facility] Comment on above: Performed By: #### U TARIK, CMP, T7, PSASC, TSH, LIPID #### [facility] [address] [address] Matias Evelyn Globulin (S) [Mass/Vol] 3.5 g/dL Normal [facility] Comment on above: Performed By: #### U TARIK, CMP, T7, PSASC, TSH, LIPID #### [facility] [address] [address] Matias Evelyn Glucose [Mass/Vol] 269 mg/dL Critically high 74-106 [facility] Comment on above: Performed By: #### U TARIK, CMP, T7, PSASC, TSH, LIPID #### [facility] [address] [place] [address] Matias Evelyn Potassium [Moles/Vol] 4.3 mmol/L Normal 3.4-5.0 [facility] Comment on above: Performed By: #### U TARIK, CMP, T7, PSASC, TSH, LIPID #### [facility] [address] [address] Matias Evelyn Protein [Mass/Vol] 7.6 g/dL Normal 6.1-8.2 [facility] Comment on above: Performed By: #### U TARIK, CMP, T7, PSASC, TSH, LIPID #### [facility] [address] [address] Matias Evelyn Sodium [Moles/Vol] 141 mmol/L Normal 137-145 [facility] Comment on above: Performed By: #### U TARIK, CMP, T7, PSASC, TSH, LIPID #### [facility] [address] [place] [address] Matias Evelyn Urea nitrogen [Mass/Vol] 17.0 mg/dL Normal 9.0-20.0 [facility] Comment on above: Performed By: #### U TARIK, CMP, T7, PSASC, TSH, LIPID #### [facility] [address] [place] [address] Matias Rivas Urea nitrogen/Creatinine [Mass ratio] 14.2 mg/mg Normal [facility] Comment on above: Performed By: #### U TARIK, CMP, T7, PSASC, TSH, LIPID #### [facility] [address] [address] Matias Rivas TSHon 10-01-2020 TSH 1.574 uIU/mL Normal 0.470-4.68 0 [facility] Comment on above: Performed By: #### P SASC #### [facility] [address] [address] [address] Forrest Lauren TSH RANGE SEE BELOW Normal [facility] Comment on above: Result Comment: <0.3 4 UIU/ml HYPERTHYROID 0.34-5.60 UIU/ml EUTHYROID >5.60 UIU/ml HYPOTHYROID Performed By: #### P SASC #### [facility] [address] [address] [address] Forrest Lauren URIC ACID SERUMon 10-01-2020 Urate [Mass/Vol] 4.8 mg/dL Normal 3.5-8.5 [facility] Comment on above: Performed By: #### P SASC #### [facility] [address] [address] [address] Forrest Lauren Cardiovascular Lab Reporton 08-03-2017 Cardiovascular Lab Report [facility]: [id number] Physician: Jerod Miller M.D.Medicine Service Date: 2017Division of Birthdate: 6Cardiology Room #: CCAdult CardiovascularServicesUnWilliam Ville [address] [place], [place] [address]Ezmvj Fax Cardiovascular Laboratory ReportINDICATION: Hoang Tran is [...] the right internal jugular vein and a 6-South Sudanese x 11cm sheath was placed. A 6-[place]ese Griffith catheter was used for right heartcatheterization with measurement of pressures and calculation of cardiacoutput using the estimated Luke method. Griffith catheter was removed.Using ultrasound guidance and micropuncture technique, access was obtainedin the left radial artery and a 6-South Sudanese x 11 cm Hydrophilic sheath wasadvanced. Verapamil [...] 08/02/2017/02:42 P/Jerod Manuel M.D.Date Trans: 08/03/2017 11:29 [id number]: Yfn Mata D.O. [address] [place] [address] [facility] Vital Signs Date Time Vital Sign Value Performing Clinician Faci lity 06-03-2024 09:54-0400 Diastolic blood pressure 68 mm[Hg] Jassi CLEMENS [facility] 06-03-2024 09:54-0400 Heart rate 105 /min Jassi CLEMENS [facility] 06-03-2024 09:54-0400 Respiratory rate 16 /min Jassi CLEMENS [facility] 06-03-2024 09:54-0400 Systolic blood pressure 103 mm[Hg] Jassi CLEMENS [facility] 05-29-2024 06:42-0400 Body height 190.5 cm DO [employer] Work Phone: [facility] 05-29-2024 06:42-0400 Body weight 78.47 kg DO [employer] Work Phone: [facility] 01-21-2024 11:44-0400 Blood Pressure Location Moody POP [facility] 01-21-2024 11:44-0400 Diastolic blood pressure 72 mm[Hg] Moodyarnol POP [facility] 01-21-2024 11:44-0400 Heart rate 70 /min Moodyarnol POP [facility] 01-21-2024 11:44-0400 Respiratory rate 16 /min Moodyarnol POP [facility] 01-21-2024 11:44-0400 Systolic blood pressure 108 mm[Hg] Moody POP [facility] Encounters Encounter Date Encounter Type Care Provider Facility Start: 06-09-2024 End: 06-09-2024 ambulatory Moody POP Facility:[facility] Start: 06-09-2024 End: 06-09-2024 Patient encounter procedure Moody POP [facility] Start: 06-03-2024 End: 06-04-2024 ambulatory Jassi CLEMENS Facility:CD:[id number] Start: 06-03-2024 End: 06-03-2024 Patient encounter procedure Jassi CLEMENS [facility] [place] Start: 05-29-2024 End: 05-29-2024 Patient encounter procedure DO González Kuns Work Phone: [facility] Work Phone: Start: 05-29-2024 End: 05-29-2024 ambulatory DO González Kuns Work Phone: [facility] Work Phone: Start: 05-26-2024 End: 05-26-2024 Toby Herbert CCC-A Work Phone: [facility] Start: 05-26-2024 End: 05-26-2024 Bamboo flowsheet Yanna Herbert CCC-A Work Phone: [facility] Start: 05-26-2024 End: 05-26-2024 Clinical Support Yanna Herbert CCC-A Work Phone: [facility] Comment on above: 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) Start: 04-30-2024 End: 04-30-2024 ambulatory Jassi R NILL Facility[facility] Start: 04-30-2024 End: 04-30-2024 Patient encounter procedure Jassi YANCEYL [facility] Start: 04-28-2024 ambulatory Jassi YANCEYL Facility:[facility] Flores Start: 04-23-2024 End: 04-23-2024 ambulatory DO González Kuns Work Phone: [facility] Work Phone: Start: 04-23-2024 End: 04-23-2024 Departed Referred DO González Kuns Work Phone: [facility] Start: 04-23-2024 ambulatory Jassi NILL Facility:[facility] Johnson Start: 04-22-2024 End: 04-23-2024 ambulatory Jassi R NILL Facility:CD:[id number] Start: 04-21-2024 Non-patient / Non-visit DO Felipa tt Kuns Work Phone: [facility] Work Phone: Start: 04-11-2024 End: 04-11-2024 ambulatory DO González Kuns Work Phone: [facility] Work Phone: Start: 04-11-2024 End: 04-11-2024 Departed Referred DO González Kuns Work Phone: [facility] Start: 03-28-2024 End: 03-28-[address] [facility] Start: 02-25-2024 End: 02-25-[address] [facility] Start: 02-11-2024 End: 02-11-2024 ambulatory Moody Rosi DONN Facility:CD:[id number] Start: 01-21-2024 End: 01-21-2024 ambulatory Moody Rosi DONN Facility:[facility] Start: 01-21-2024 End: 01-21-2024 Patient encounter procedure Moody POP [facility] Start: 09-12-2023 ambulatory Jassi CLEMENS Facility:[facility] Start: 08-26-2021 End: 08-26-2021 ambulatory AILIN BAKER Facility:[facility] Start: 02-23-2021 ambulatory AILIN BAKER Facility:[facility] Start: 12-06-2020 End: 12-07-2020 ambulatory ILAN TODD Facility:[facility] Start: 10-07-2020 Encounter for genera l adult medical examination without abnormal findings AILIN BAKER [facility] Start: 10-01-2020 End: 10-02-2020 ambulatory AILIN BAKER Facility:[facility] Start: 10-01-2020 End: 10-02-2020 Encounter for general adult medical examination without abnormal findings AILIN BAKER Facility:[facility] Start: 2017 End: 08-03-2017 Ambulatory PROVIDER UNKNOWN Facility:[facility] Start: 07-24-2017 End: 07-25-2017 Ambulatory DEFAULT PHYSICIAN Facility:[facility] Start: 07-19-2017 End: 07-20-2017 Ambulatory DEFAULT PHYSICIAN Facility:[facility] Start: 06-18-2017 End: 06-19-2017 Ambulatory DEFAULT PHYSICIAN Facility:[facility] Procedures Date Procedure Procedure Detail Performing Clinician Start: 06-04-2024 Insertion of implant able venous access port Moody POP Start: 05-29-2024 XR pre/post mri xray DO González Moon Work Phone: Start: 05-29-2024 MRI of cervical spin e with contrast DO González Moon Work Phone: Start: 05-29-2024 MRI of head DO González call Work Phone: Start: 04-23-2024 Incisional biopsy Sudhir CLEMENS Start: 08-26-2021 PSA screening AILIN KHAN Comment on above: Performed By: #### P SASC #### [facility] [address] [place], [place] [address] Dr. Forrest Lauren Start: 10-01-2020 PSA screening AILIN KHAN Comment on above: Performed By: #### U TARIK, CMP, T7, PSASC, TSH, LIPID #### [facility] [address] [place], [place] [address] Matias Rivas Start: 08-06-2013 Colonoscopy Moody ASHER Start: 08-06-2004 Neoplasm of brain (disorder) Moody POP Back structure, excl uding neck (body structure) Moody POP Removal of acoustic neuroma Jassi CLEMENS Spinal arthrodesis Jassi INFANTE Tonsillectomy Moody POP Plan of Treatment Date Care Activity Detail Author Start: 06-16-2024 End: 06-16-2024 Patient encounter procedure 06/16/2024 3:00 PM EST Office Visit [facility] [address] [place] [address] [facility] Start: 06-05-2024 End: 06-05-2024 Patient encounter procedure 06/05/2024 11:00 AM EDT Office Visit [facility] [address] [address] Lucas Arenas [address] [place] [address] [facility] Auditory function tests Auditory function tests Audiology Routine 05/26/2024 1:35 PM EDT [facility] Work Phone: Payers Date Payer Category Payer Medicare (Managed Care) [facility] [id number] 2023 Medicare [id number] 1959 [facility] [id number] 1959 Medicare [id number] 1959 Self-pay 1955 Unknown [id number] 2.16.840.1.020167.3.579.2. 593 1956 Unknown [id number] 2.16.840.1.054634.3.579.2. 593 1956 Unknown [id number] 2.16.840.1.589119.3.579.2. 593 1956 Unknown [id number] 2.16.840.1.107737.3.579.2. 593 1956 Unknown [id number] 2.16.840.1.866675.3.579.2. 1259 1956 Unknown [id number] 2.16.840.1.117800.3.579.2. 727 1956 Unknown [id number] 2.16.840.1.459249.3.579.2. 727 1956 Unknown [id number] 2.16.840.1.442642.3.579.2. 727 1956 Unknown [id number] 2.16.840.1.277780.3.579.2. 727 1956 Unknown [id number] 2.16.840.1.039840.3.579.2. 727 1956 Unknown [id number] 2.16.840.1.101365.3.579.2. 727 1956 Unknown [id number] 2.16.840.1.732679.3.579.2. 727 1956 Unknown [id number] 2.16.840.1.818220.3.579.2. 727 Private Health Insurance [facility] [id number] Unknown Unknown Bruce BC/BS [id number] Unknown [id number] 2.16.840.1.532977.3.579.2. 531 Unknown [id number] 2.16.840.1.332896.3.579.2. 531 Unknown [id number] 2.16.840.1.889738.3.579.2. 531 Social History Date Type Detail Facility Start: 01-21-2024 End: 06-03-2024 Tobacco smoking status Never smoked tobacco (finding) [facility] Tobacco smoking status Never [facility] Sex Assigned At Male [facility] Start: 1955 Sex Assigned At Male F [facility] Tobacco smoking status NHIS Tobacco smoking consumption unknown [facility] Start: 1955 Sex assigned at Not on file [facility] Functional Status Date Assessment Result Facility 06-03-2024 Functional Status N/A [facility] [place] 04-30-2024 Functional Status N/A [facility] [place] 01-21-2024 Functional Status N/A [facility] Clinical Notes 01-21-2024 to 06-03-2024 Yanna Herbert, [...] nodes of axilla and upper limb) plan [id number] insertion for chemotherapy; informed consent obtained. Ancef [...] Tobacco Use:. House (more content not included)... [facility] Comment on above: Result Comment: Elec [...] is eligible for hearing aids through his [facility] [employer] Benefit. Recommend a custom mold for the left ear. Ear impression taken of left ear without incident. Pt ordered mid level technology. Order completed in [employer] portal and pt scheduled for HAF 06-16-24 in [place]. documented in this encounter [facility] 03-28-2024 Note [facility] Subjective Hoang Tran is a [...] HDL 42. TSH (more content not included)... [facility] 02-25-2024 Note [facility] Subjective Hoang Tran is a [...] platelets 256, potassium (more content not included)... [facility] 02-15-2024 Hospital Discharge instructions Follow Up Care 02/15/2024 09:24:50 With:DONN ELLIS, Moody Aranda, URL Address: [facility] [address], [place] [address]- When: Unknown [facility] 01-21-2024 Note Chief Complaint Referral *LUTs [...] neoplasm of prostat (more content not included)... [facility] Comment on above: Result Comment: Elec [...] urethra. Follow these instructions at home: Take hyaf-oal-hjpcplq and prescription medicines only as told by [...] provider. Document Revised: 02/08/2022 Document Reviewed: 02/08/2022 [employer] Patient Education 2022 [employer]. Follow Up Care 09/13/2023 09:26:56 With:DONN ELLIS, Moody Aranda, URL Address: [facility] [address] , [place] [address]- When: Unknown [facility] Evaluation + Plan note No data available for this section [facility] Evaluation + Plan note Future Appointments Appointment Date:06/09/2024 10:45:00 AM Scheduled Provider:Moody POP MD Location:[facility] Appointment Type:URO Office Visit [facility] Evaluation note No assessment inform ation available [facility] Work Phone: Evaluation note Diagnosis 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 EPIC DATE CREATED AUTHOR AUTHOR'S ORGANIZ ATION 06/08/2024 [facility] DATE CREATED AUTHOR AUTHOR'S ORGANIZ ATION 06/11/2024 [facility] Patient Care team informatio n (unrecognized section and content) Team Status: Active Member Role Status Dates MEHRDAD Bardales Primary Care Provider Active Team Status: Inactive [...] Member Role Status Dates Jassi Clemens MD [facility] Attending Provider Active Start: April 23, 2024 End: April 23, 2024 Team Status: Inactive Member Role Status Dates Sonia Donnelly MD Attending Provider Active St art: May 29, 2024 End: May 29, 2024 MEHRDAD Bardales Primary Care Provider Active Start: May 29, 2024 End: May 29, 2024 Team Status: Active Member Role Status Dates González Moon DO Primary Care Provider Active Child And Family Counselor Relationship Specialty Start Date End Date Ailin Green MD [address] [place] [address] Referring Physician Family Medicine 05/16/24 Ailin Green MD [address] [place] [address] Referring Physician Family Medicine 05/26/24 Child And Family Counselor Relationship Specialty Start Date End Date Ailin Green MD [id number] Referring Physician Family Medicine 05/16/24 Aliin Green MD [address] [place] [address] Referring Physician Family Medicine 05/26/24 Goals (unrecognized [...] BE BASED ON THE PRIMARY CLINICAL RECORDS. [facility]. provides no warranty or guarantee of the accuracy or completeness of information in this document.
--- NOTE | 2024-06-13 16:30 | XR_ITS ---
The [address] [address] Patient Name: NABEEL TRAN MRN: [id number] date: 1955 Sex: M Assigned Patient Location: ER Current Patient Location: ER Accession/Order Number: [id number] Exam Date: 06/13/2024 16:38 Report Date: 06/13/2024 17:49 At the request of: SHALONDA DUMONT Procedure: XR chest 1V EXAM: XR chest 1V HISTORY: AFIB COMPARISON: 06/04/2024 TECHNIQUE: Chest X-ray AP, 1 view FINDINGS: Support devices: Right internal jugular approach Mediport catheter is unchanged in position. Lungs/pleura: Persistent elevated left hemidiaphragm due to gaseous distention of splenic flexure. No consolidation, effusion, or pneumothorax. Heart and mediastinum: Normal contours. Bones: No acute abnormality identified. XR/XR chest 1V Impression: No radiographic evidence of acute cardiopulmonary process. Electronically authenticated by: PAYTON YI Date: 06/13/2024 17:49
--- NOTE | 2024-06-13 16:30 | ECG_ITS ---
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
[2024-06-13 16:41] LABS: Basophils Percent Auto 0.3 % (0.2-2.0); Eosinophils Percent Auto 0.4 % (0.9-7.0); Hematocrit 36.3 % (42.0-54.0); Hemoglobin 10.9 g/dL (14.0-18.0); Immature Granulocytes Abs Auto 0.02 10^3/uL (0.00-0.03); Immature Granulocytes Pct Auto 0.3 % (0.0-0.5); Lymphocytes Absolute Auto 0.7 10^3/uL (1.2-3.8); Lymphocytes Percent Auto 9.5 % (20.5-60.0); Mean Corpuscular Hemoglobin 23.4 pg (25.9-34.0); Mean Corpuscular Volume 77.9 fL (80.0-94.0); Mean Platelet Volume 9.2 fL (9.5-13.5); Monocytes Absolute Auto 0.1 10^3/uL (0.3-0.8); Monocytes Percent Auto 1.6 % (1.7-12.0); Neutrophils Absolute Auto 6.1 10^3/uL (1.4-6.5); Neutrophils Percent Auto 87.9 % (43.0-75.0); Platelet Count 369 10^3/uL (150-450); Red Blood Count 4.66 10^6/uL (4.70-6.10); Red Cell Distribution Width 16.9 % (11.0-15.0)
[2024-06-13 16:54] LABS: INR 1.09; Prothrombin Time 11.5 sec (9.0-11.6)
[2024-06-13 17:03] LABS: Alanine Aminotransferase 30 U/L (16-63); Albumin Globulin Ratio 0.3; Albumin Level 1.4 g/dL (3.4-5.0); Alkaline Phosphatase 298 U/L (46-116); Anion Gap 8.6; Aspartate Amino Transferase 36 U/L (15-37); BUN Creatinine Ratio 23.3; Bilirubin Total 0.7 mg/dL (0.2-1.0); Calcium 9.3 mg/dL (8.5-10.1); Carbon Dioxide 30.3 mmol/L (21.0-32.0); Chloride 104 mmol/L (98-107); Estimated GFR (African America >60 (>=60 mL/min/1.73m^2); Estimated GFR (Non-African Ame >60 (>=60 mL/min/1.73m^2); Globulin 5.4 g/dL; Glucose 233 mg/dL (74-106); Potassium 3.9 mmol/L (3.5-5.1); Sodium 139 mmol/L (136-145); Total Protein 6.8 g/dL (6.4-8.2); Troponin I High Sensitivity 6.8 pg/mL (4.0-76.1)
[2024-06-13] MEDS: dilTIAZem HCL 125 MG in 0.9 % SODIUM CHLORIDE 100 ML 10 MG IV (17:18)
[2024-06-13] MEDS: DILTIAZEM HCL 25 MG/5 ML VIAL 10 MG IV (17:59)
--- NOTE | 2024-06-13 19:30 | ED.GENADUL1 ---
HPI HPI - General Adult General Chief complaint: Arrhythmia/Palpitations Stated complaint: Afib Time Seen by Provider: 06/13/24 16:25 Source: family Source information: , patient is near deaf Mode of arrival: Wheelchair History of Present Illness HPI narrative: 68-year-old male presents here with a chief complaint of atrial fibrillation. Patient is currently wearing a Holter monitor due to irregular heart rhythm of atrial fibrillation. states today the company called told him to come in for evaluation. Patient presents to the emergency room in atrial fibrillation with a rate of 156 -180beats per minute. Was recently diagnosed with lymphoma. He was having a port placed at another facility when they noted him to go into atrial fibrillation. At that time on June 04, 2024 he was placed in the intensive care unit. When I discharged home the discharged home with a Holter monitor. states it went off 1 other time earlier this week but was told today to come in for evaluation. Patient is very hard of hearing all of the information and history is being given by the . Patient does deny history of pain or chest pain or shortness of breath. History includes lymphoma as well as type 2 diabetes Related Data Home Medications ?Medication ?Instructions ?Recorded ?Confirmed metformin 1,000 mg tablet 1,000 mg PO DAILY 02/01/24 06/13/24 sitagliptin phosphate 100 mg 100 mg PO DAILY 02/01/24 06/13/24 tablet (Januvia) vitamins A,C,W-zprz-[id number] 4,296 1 cap PO DAILY 04/11/24 06/13/24 mcg-226 mg-90 mg capsule (PreserVision AREDS) atorvastatin 10 mg tablet 10 mg PO .qd 04/21/24 06/13/24 glucagon 1 mg solution for 1 mg IV PRN 04/21/24 06/13/24 injection (Glucagon Emergency Kit) losartan 50 mg tablet 50 mg PO DAILY 05/26/24 06/13/24 metoprolol tartrate 25 mg tablet 25 mg PO Q12H 06/12/24 06/13/24 cefdinir 300 mg capsule 300 mg PO BID 06/13/24 06/13/24 ondansetron 4 mg disintegrating 4 mg PO Q6H PRN nausea and vomiting 06/13/24 06/13/24 tablet prochlorperazine maleate 10 mg 10 mg PO Q6H PRN nausea and 06/13/24 06/13/24 tablet vomiting Previous Rx's ?Medication ?Instructions ?Recorded food supplemt, lactose-reduced 1 ea PO BID #5,688 mL 04/23/24 (Ensure Active Protein-Muscle oral liquid) insulin glargine 100 unit/mL (3 20 unit (0.2 mL) subcut .qhs #0 mL 04/23/24 mL) subcutaneous pen (Lantus Solostar U-100 Insulin) liothyronine 5 mcg tablet 10 mcg (2 x 5 mcg) PO QD #60 tabs 04/23/24 Allergies Allergy/AdvReac Type Severity Reaction Status Date / Time No Known Drug Allergies Allergy Verified 05/26/24 09:26 Opioid HPI Opioid Management Most Recent Opioid Data: Last Office Visit 05/15/24 07:41 05/15/24 Last Pain Scale 2 06/04/24 16:00 06/04/24 Last Pain Intensity 0 04/23/24 08:25 04/23/24 Last ORT Total Score 0 06/04/24 11:53 06/04/24 Last ORT Risk Category Low Risk 06/04/24 11:53 06/04/24 Review of Systems ROS Narrative All Systems are negative except as noted/marked.All systems reviewed and otherwise negative 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 - Primary cutaneous [id number] T-cell proliferations not having achieved remission (ICD-10) Lymphoproliferative disorder ?D47.9 - Neoplasm of uncertain behavior of lymphoid, hematopoietic and related tissue, unspecified (ICD-10) Poor balance ?R26.89 - Other abnormalities of gait and mobility (ICD-10) Failure to thrive Risk for falls ?Z91.81 - History of falling (ICD-10) Neck pain ?M54.2 - Cervicalgia (ICD-10) Arthritis ?M19.90 - Unspecified osteoarthritis, unspecified site (ICD-10) Back pain ?M54.9 - Dorsalgia, unspecified (ICD-10) Dyspnea on exertion ?R06.09 - Other forms of dyspnea (ICD-10) Nausea ?R11.0 - Nausea (ICD-10) GERD (gastroesophageal reflux disease) ?K21.9 - Gastro-esophageal reflux disease without esophagitis (ICD-10) Fatigue ?R53.83 - Other fatigue (ICD-10) Heart murmur ?R01.1 - Cardiac murmur, unspecified (ICD-10) Hypothyroidism ?E03.9 - Hypothyroidism, unspecified (ICD-10) Lymphoma ?C85.90 - Non-Hodgkin lymphoma, unspecified, unspecified site (ICD-10) Hearing loss ?H91.90 - Unspecified hearing loss, unspecified ear (ICD-10) Mass of right axilla ?R22.31 - Localized swelling, mass and lump, right upper limb (ICD-10) Acute hyponatremia ?E87.1 - Hypo-osmolality and hyponatremia (ICD-10) Pulmonary arterial hypertension ?I27.21 - Secondary pulmonary arterial hypertension (ICD-10) COVID ?U07.1 - COVID-19 (ICD-10) Anxiety ?F41.9 - Anxiety disorder, unspecified (ICD-10) BPH (benign prostatic hyperplasia) ?N40.0 - Benign prostatic hyperplasia without lower urinary tract symptoms (ICD-10) Weight loss ?R63.4 - Abnormal weight loss (ICD-10) Axillary lymphadenopathy ?R59.0 - Localized enlarged lymph nodes (ICD-10) Deafness in right ear ?H91.91 - Unspecified hearing loss, right ear (ICD-10) Acoustic neuroma ?D33.3 - Benign neoplasm of cranial nerves (ICD-10) Overactive bladder ?N32.81 - Overactive bladder (ICD-10) Hypertension ?I10 - Essential (primary) hypertension (ICD-10) Hyperlipidemia ?E78.5 - Hyperlipidemia, unspecified (ICD-10) Glucosuria ?R81 - Glycosuria (ICD-10) Diabetes mellitus ?E11.9 - Type 2 diabetes mellitus without complications (ICD-10) BPH with obstruction/lower urinary tract symptoms ?N40.1 - Benign prostatic hyperplasia with lower urinary tract symptoms (ICD-10) ?N13.8 - Other obstructive and reflux uropathy (ICD-10) Surgical History (Updated 05/27/24 @ 10:11 by Coty Arciniega NP) History of bone marrow biopsy ?Z98.890 - Other specified postprocedural states (ICD-10) History of hernia repair ?Z98.890 - Other specified postprocedural states (ICD-10) ?Z87.19 - Personal history of other diseases of the digestive system (ICD-10) History of spinal surgery ?Z98.890 - Other specified postprocedural states (ICD-10) S/P excision of acoustic neuroma ?Z98.890 - Other specified postprocedural states (ICD-10) ?Z86.018 - Personal history of other benign neoplasm (ICD-10) History of ear surgery ?Z98.890 - Other specified postprocedural states (ICD-10) History of tonsillectomy ?Z90.89 - Acquired absence of other organs (ICD-10) History of spinal fusion ?Z98.1 - Arthrodesis status (ICD-10) History of colonoscopy ?Z98.890 - Other specified postprocedural states (ICD-10) Family History (Updated 05/26/24 @ 09:41 by Coty Arciniega NP) Mother Heart disease Other Cirrhosis Family history of COPD (chronic obstructive pulmonary disease) Social History (Updated 04/21/24 @ 14:57 by Susy Echeverria LPN) Within the past year, how often did you have a drink containing alcohol: never Score interpretation: A score less than 4 is consistent with normal alcohol consumption. Smoking status: Never smoker Non-prescribed substance use: denies use Previous occupational history: retired Highest level of school completed/degree received: high school graduate Little interest or pleasure in doing things: several days Feeling down, depressed, or hopeless: several days Feel stressed/tense/nervous/anxious/difficulty sleeping: not at all Due to disability, difficulty making decisions: No Do you think of yourself as: straight/heterosexual Gender Identity: male Exam Narrative Exam Narrative: Nurses note and vital signs reviewed and patient is not hypoxic. General: The patient appears well and in no apparent distress. Patient is resting comfortably on cart. Skin: Warm, dry, no pallor noted. There is no rash noted. Head: Normocephalic, atraumatic. hard of hearing Eye: Normal conjunctiva, no drainage, EOMI. PERRL Ears, Nose, Mouth, and Throat: oral mucosa is moist. Nares patent. Mouth without vesicles. Ear canals patent. Tm's without Erythema Cardiovascular: Irregular rate and rhythm Respiratory: Patient is in no distress, no accessory muscle use, lungs are clear to auscultation, no wheezing, rales or rhonchi Back: non-tender, no CVA tenderness bilaterally to percussion. GI: Normal bowel sounds, no tenderness to palpation, no masses appreciated. No rebound, guarding, or rigidity noted. Musculoskeletal: The patient has no evidence of calf tenderness, no pitting edema, symmetrical pulses noted bilaterally Neurological: A&O x4, normal speech Psychiatric: Cooperative Constitutional Vital Signs, click to edit/add: Last Vital Signs Temp 98.1 F 06/13/24 16:14 Pulse 131 H 06/13/24 19:30 Resp 21 H 06/13/24 19:30 BP 105/82 06/13/24 19:30 Pulse Ox 98 06/13/24 19:30 O2 Del Method Room Air 06/13/24 16:14 Course Vital Signs Vital signs: Vital Signs Temperature 98.1 F 06/13/24 16:14 Pulse Rate 156 H 06/13/24 16:14 Respiratory Rate 18 06/13/24 16:14 Blood Pressure 121/95 H 06/13/24 16:14 Pulse Oximetry 96 06/13/24 16:14 Oxygen Delivery Method Room Air 06/13/24 16:14 Temperature 98.1 F 06/13/24 16:14 Pulse Rate 131 H 06/13/24 19:30 Respiratory Rate 21 H 06/13/24 19:30 Blood Pressure 105/82 06/13/24 19:30 Pulse Oximetry 98 06/13/24 19:30 Oxygen Delivery Method Room Air 06/13/24 16:14 Medical Decision Making MDM Narrative Medical decision making narrative: 68-year-old male presents here with a chief complaint of atrial fibrillation. Patient is currently wearing a Holter monitor due to irregular heart rhythm of atrial fibrillation. states today the company called told him to come in for evaluation. Patient presents to the emergency room in atrial fibrillation with a rate of 156 -180beats per minute. Was recently diagnosed with lymphoma. He was having a port placed at another facility when they noted him to go into atrial fibrillation. At that time on June 04, 2024 he was placed in the intensive care unit. When I discharged home the discharged home with a Holter monitor. states it went off 1 other time earlier this week but was told today to come in for evaluation. Patient is very hard of hearing all of the information and history is being given by the . Patient does deny history of pain or chest pain or shortness of breath. History includes lymphoma as well as type 2 diabetes Presenting here to the emergency room after being called by the Holter monitor company to come for evaluation. On arrival patient was in atrial fibrillation. We have attempted to convert his rhythm with 10 mg of Cardizem followed by a bolus. Patient does continue to go in and out of normal sinus rhythm versus atrial fibrillation. Lab work including troponin were negative other than a mildly low hemoglobin hematocrit. 10.9 And 36.3 glucose 233. I spoke with hospitalist concerning this patient's care patient can be admitted to the ICU unit due to the Cardizem drip. Patient has been stable. is at bedside agrees with plan of care. Dr. Damian is also aware of patient's admission and states will see him tomorrow morning Differential Diagnosis Differential Diagnosis: afib, chf, mi, lymphoma Medical Records Medical records reviewed: Yes I reviewed the patient's medical records Lab Data Lab results reviewed: Yes I reviewed the patient's lab results Labs: Lab Results 06/13/24 Range/Units 16:30 WBC 7.0 (4.0-11.0) 10^3/uL RBC 4.66 L (4.70-6.10) 10^6/uL Hgb 10.9 L (14.0-18.0) g/dL Hct 36.3 L (42.0-54.0) % MCV 77.9 L (80.0-94.0) fL MCH 23.4 L (25.9-34.0) pg MCHC 30.0 (29.9-35.2) g/dL RDW 16.9 H (11.0-15.0) % Plt Count 369 (150-450) 10^3/uL MPV 9.2 L (9.5-13.5) fL Neut % (Auto) 87.9 H (43.0-75.0) % Lymph % (Auto) 9.5 L (20.5-60.0) % [place] % (Auto) 1.6 L (1.7-12.0) % Eos % (Auto) 0.4 L (0.9-7.0) % Baso % (Auto) 0.3 (0.2-2.0) % Neut # (Auto) 6.1 (1.4-6.5) 10^3/uL Lymph # (Auto) 0.7 L (1.2-3.8) 10^3/uL [place] # (Auto) 0.1 L (0.3-0.8) 10^3/uL Eos # (Auto) 0.0 (0.0-0.7) 10^3/uL Baso # (Auto) 0.0 (0.0-0.1) 10^3/uL Abs Immat Gran (auto) 0.02 (0.00-0.03) 10^3/uL Imm/Tot Granulo (auto) 0.3 (0.0-0.5) % PT 11.5 (9.0-11.6) sec INR 1.09 Sodium 139 (136-145) mmol/L Potassium 3.9 (3.5-5.1) mmol/L Chloride 104 (98-107) mmol/L Carbon Dioxide 30.3 (21.0-32.0) mmol/L Anion Gap 8.6 BUN 20.0 H (7.0-18.0) mg/dL Creatinine 0.86 (0.70-1.30) mg/dL Est GFR ( Amer) >60 (>=60 mL/min/1.73m^2) Est GFR (Non-Af Amer) >60 (>=60 mL/min/1.73m^2) BUN/Creatinine Ratio 23.3 Glucose 233 H (74-106) mg/dL Calcium 9.3 (8.5-10.1) mg/dL Total Bilirubin 0.7 (0.2-1.0) mg/dL AST 36 (15-37) U/L ALT 30 (16-63) U/L Alkaline Phosphatase 298 H (46-116) U/L Troponin I High Sens 6.8 (4.0-76.1) pg/mL NT-Pro-B Natriuret Pep 704.0 (<=900.0) pg/mL Total Protein 6.8 (6.4-8.2) g/dL Albumin 1.4 L (3.4-5.0) g/dL Globulin 5.4 g/dL Albumin/Globulin Ratio 0.3 ECG Data Interpretation: 1619 afib with rate of 157 no STEMI At 1835 after Cardizem drip been initiated continues to be A-fib with a rate of 120 bpm no STEMI Discharge Plan Discharge Chief Complaint: Arrhythmia/Palpitations Clinical Impression: Atrial fibrillation Patient Disposition: Admitted As Inpatient Time of Disposition Decision: 19:39 Condition: Good
--- NOTE | 2024-06-13 19:43 | ECG_ITS ---
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
--- OUTSIDE RECORDS SUMMARY | 2024-06-13 20:21 | XMS_ITS | CCD ---
Author Organization [facility] Care Team Providers Care Sole Blacker Name Role Phone PHYSICIAN, DEFAULT Unavailable Unavailable PHYSICIAN, DEFAULT Unavailable Unavailable PHYSICIAN, DEFAULT Unavailable Unavailable PHYSICIAN, DEFAULT Unavailable Unavailable PHYSICIAN, DEFAULT Unavailable Unavailable PHYSICIAN, DEFAULT Unavailable Unavailable UNKNOWN, PROVIDER Unavailable Unavailable UNKNOWN, PROVIDER Unavailable Unavailable YFN MATA Unavailable Unavailable YFN MATA Unavailable Unavailable AILIN BAKER Admitting Unavailable AILIN BAKER Attending Unavailable AILIN BAKER Primary Care Unavailable RAY, AILIN Admitting Unavailable AILIN BAKER Attending Unavailable AILIN BAKER Consulting Unavailable AILIN BAKER Primary Care Unavailable AILIN BAKER Attending Unavailable YFN MATA Primary Care Unavailable AILIN BAKER Consulting Unavailable RAY AILIN Admitting Unavailable ILAN TODD Attending Unavailable ILAN TODD Consulting Unavailable ILAN TODD Admitting Unavailable AILIN BAKER Primary Care Unavailable AMARIS WALKER Consulting Unavailable AILIN GREEN Primary Care Physician [phone] JEROD MANUEL Attending Unavailable JEROD MANUEL Attending Unavailable DO González Moon Primary Care Provider MD Hoang Strange Attending Provider MD Jassi Clemens Attending Provider Ailin Green MD Unavailable Peter ELLIS, Ailin Unavailable YANNA HERBERT Attending Unavailable MD Sonia Donnelly Attending Provider [phone] MEHRDAD Green Primary Care Provider [phone] Jassi Clemens Attending Unavailable Jassi Clemens Admitting [...] Propensity to adverse reactions (disorder) 7 [facility] (1 source) empagliflozin; 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: [EMPAGLIFLOZIN] Drug Allergy 4 [facility] (1 source) Unable to Assess Drug allergy (disorder) [address] [place] [address] Repository (1 source) No Known Medication Allergies; 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: [No Known Medication Allergies] Propensity to adverse reactions (disorder) [facility] Repository Medications Current Medications Medication [...] day(s), # 90 cap(s), Refills(s) 3, Pharmacy: [facility], 187, cm, 01/21/24 11:48:00 EDT, [...] completed, # 2 tab(s), Refills(s) 0, Pharmacy: [facility], 187, cm, 01/21/24 11:48:00 EDT, Height/Length [...] / UNK(Unknown) Onset: 2017 Unclassified (1 source) [facility] (current) use of oral hypoglycemic drugs; 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: [[facility] (CURRENT) USE OF ORAL 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 DRUGS] Onset: 2017 Unclassified (4 sources) Patient encounter status 01-21-2024 Viral infection (1 source) COVID-19; 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: [COVID-19] Onset: 12-08-2020 Past or Other Problems Problem Classification Problem Date Documented Da te Episodic/Chronic Other aftercare (1 source) parts counter[facility] (current) use of aspirin; 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: [[facility] (CURRENT) USE OF ASPIRIN] Onset: 2017 Episodic Other lower respiratory disease (3 sources) Cough; 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: [COUGH] Onset: 12-06-2020 Episodic Results Test Name Value Interpretation Reference Range Facility ISTAT XRay CREon 05-29-2024 ISTAT GFR > 60.0 Normal [facility] Comment on above: Result Comment: PERF ORMED BY: [address] [address] PATHOLOGIST INFORMATION TECHNOLOGY ANALYST KASSI WATESR M.D. Performed By: #### I SCRE #### [address] [address] [facility] MR head/brain wo/w conon MR head/brain wo/w con [facility] [place] [address] [place], [place] [id number] MRI Report Signed Patient: Hoang Tran MR#: [id number] : 1955 Acct:[id number] Age/Sex: 68 / M ADM Date: 05/29/24 Loc: MR Room: Type: [facility] Attending Dr: Sonia Donnelly MD [...] Alexis Patel M.D.05/29/2024 1:38 PM Dictation Location: [place] [address] Transcribed By: ANDRIA 05/29/24 1338 Dictated By: Alexis Patel II, MD 05/29/24 1325 Signed By: 05/29/24 1338 Normal [facility] No Panel InformationOrdered By: Sonia Donnelly on 05-29-2024 Bedside Estimated GFR (eGFR) > 60.0 [facility] Whole blood creatinine measu rementOrdered By: Sonia Donnelly on 05-29-2024 Creatinine [Mass/Vol] 0.8 mg/dL Normal 0.6-1.3 [facility] Comment on above: ER/ESD physician is notified/shown all ISTAT results.Critical values may be confirmed by laboratory testing ifdeemed necessary by ER attending doctor. Result Comment: ER/E SD physician is notified/shown all ISTAT results. Critical values may be confirmed by laboratory testing if deemed necessary by ER attending doctor. Performed By: #### I SCRE #### [facility] [address] [place] [address] XR pre/post mri xrayon 05-29 XR pre/post mri xray [facility] [address] MRI Report Signed Patient: Hoang Tran MR#: [id number] : 1955 Acct:[id number] Age/Sex: 68 / M ADM Date: 05/29/24 Loc: MR Room: Type: [facility] Attending Dr: Sonia Donnelly MD Copies to: Sonia Donnelly MD Ordering Provider: Sonia Donnelly MD Date of Service: 05/29/24 MR/MR cervical spine wo/w con: C85.90, C85.94, C85.11 ([id number]) XR/XR pre/post mri xray: C85.90, C85.94, C85.11 [...] Alexis Patel M.D.05/29/2024 1:00 PM Dictation Location: [facility]--24 Transcribed By: ANDRIA 05/29/24 1300 Dictated By: Alexis Patel II, MD 05/29/24 1254 Signed By: 05/29/24 1300 Normal [facility] Ambulatory Visit Summaryon 0 04-30-2024 [...] ELLIS, Moody Aranda Where: [facility] [place] [id number]- Medications What How Much When Instructions Unchanged [...] for choosing us for your care. Normal [facility] General Surgery Office/Clini c Noteon 04-30-2024 General Surgery Office/Clinic Note General Surgery Office/Clinic Note Chief Complaint post operative follow up HPI Staff 7 day post operative follow up post incisional biopsy right axilla adenopathy completed while inpatient at [facility]. Denies soreness, bleeding or drainage. History [...] 04/30/2024 Family History Heart disease: Mother. Normal [facility] Comment on above: Result Comment: Elec tronically Signed By: AIRAM ELLIS, Jassi Nazario.br\Date and Time Signed: 04/30/24 14:51 EDT Robert 04-23-2024 L Specimen: [id number] R eceived: 04/23/24 Status: MERNA Rivera Num: [id number] Spec Type: Surgical Subm Dr: Jassi Clemens MD FACS Tissues: A Lymph Node - Biopsy (Needle or Incisional) (R AXILLARY LYMPH NODE BX) Procedures: CD45/2, HE/4, Gross/Micro L4, AE1-AE3, BCL-2, BCL-6, CD10, CD20, CD23, CD3, CD30/2, CD5, PAX5/2 Age/ Patient Sex Location Account Attending Physician Hoang Tran 68/M LABELL [id number] Jassi Clemens MD FACS SPEC NUM: [id number] RECD: 04/23/24 STATUS: MER[facility] RIVERA NUM: [id number] RANJITH: 04/23/[address]: Jassi Clemens MD FACS ENTERED: 04/23/[address] [facility] [address]: SPEC TYPE: Surgical DEPT: LUANA MOYER ENTERED BY: [id number] RECV BY: [id number] ORDERED: CD45/2, HE/4, Gross/Micro L4, AE1-AE3, BCL-2, BCL-6, CD10, CD20, CD23, CD3, CD30/2, CD5, PAX5/2 ORDERED: CD45/2, HE/4, Gross/Micro L4, AE1-AE3, BCL-2, BCL-6, CD10, CD20, CD23, CD3, CD30/2, CD5, PAX5/2, USS/7 Supplemental Report Addendum 3 Entered: 05/15/24-4 Supplemental for addended consultation report from [facility] Addendum -Repeat MUM1 immunostain does in fact stain the focal large atypical cells -No change in final diagnosis Addendum Signed (signature on file) Kin-Gama Lauren MD 05/15/24 1014 -- Addendum 2 Entered: 05/14/24 Supplemental for findings of consultation report from [facility]: -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 -- Specimen: [id number] Received: 04/23/24 Status: MERNA Rivera Num: [id number] Spec Type: Surgical Subm Dr: Jassi Clemens MD FACS Tissues: A Lymph Node - Biopsy (Needle or Incisional) (R AXILLARY LYMPH NODE BX) Procedures: CD45/2, HE/4, Gross/Micro L4, AE1-AE3, BCL-2, BCL-6, CD10, CD20, CD23, CD3, CD30/2, CD5, PAX5/2 -- Patient: Hoang Tran [id number] (Continued) -- Specimen: [id number] Received: 04/23/24 (Continued) Supplemental Report (Continued) Signed (signature on file) Trinity Lauren MD 05/01/24 165 -- Specimen: [id number] Received: 04/23/24 Status: MERNA Rivera Num: [id number] Spec Type: Surgical Subm Dr: Jassi Clemens MD FACS Tissues: A Lymph Node - Biopsy (Needle or Incisional) (R AXILLARY LYMPH NODE BX) Procedures: CD45/2, HE/4, Gross/Micro L4, AE1-AE3, BCL-2, BCL-6, CD10, CD20, CD23, CD3, CD30/2, CD5, PAX5/2 -- Patient: Hoang Tran [id number] (Continued) -- Specimen: [id number] Received: 04/23/24 (Continued) Supplemental Report (Continued) lymphocytes [...] contributory. -The concurrent flow cytometry study from [facility] is no significant lymphoid (more content not included)... Normal [facility] Robert 04-11-2024 L Specimen: [id number] R eceived: 04/14/24 Status: [facility] Re Num: [id number] Spec Type: Surgical Subm Dr: Hoang Strange MD Tissues: A Lymph Node - Biopsy (Needle or Incisional) (R AXILLA LYMPH NODE) B Gross Only (LYMPH NODE) Procedures: HE/2, Gross/Micro L4, Level 1 Gross Age/ Patient Sex Location Account Attending Physician Hoang Tran 68/M LABELL [id number] Hoang Strange MD SPEC NUM: [id number] RECD: 04/14/24 STATUS: [facility] NUM: [id number] RANJITH: 04/11/24 DR: Hoang Strange MD ENTERED: 04/14/[address] [facility] [address]: Gregg Flores SPEC TYPE: Surgical DEPT: LUANA MOYER ENTERED BY: [id number] RECV BY: [id number] ORDERED: HE/2, Gross/Micro L4, Level 1 Gross ORDERED: HE/2, Gross/Micro L4, Level 1 Gross Supplemental Report Addendum 2 Entered: 09/16/24-1306 Supplemental for findings of consultation report from [facility]: A, -Extremity limited specimen compatible with malignancy, see comment Addendum Signed (signature on file) Trinity Lauren MD 04/21/24 1307 -- Addendum 1 Entered: 04/18/240773 Supplemental for findings of flow cytometry report from [facility]: -Tests canceled -This test is canceled due to poor sample quality / poor viability -- Specimen: [id number] Received: 04/14/24 Status: MERNA Miguel Num: [id number] Spec Type: Surgical Subm Dr: Hoang Strange MD Tissues: A Lymph Node - Biopsy (Needle or Incisional) (R AXILLA LYMPH NODE) B Gross Only (LYMPH NODE) Procedures: HE/2, Gross/Micro L4, Level 1 Gross -- Patient: Hoang Tran [id number] (Continued) -- Specimen: [id number] Received: 04/14/24 (Continued) Supplemental Report (Continued) Signed (signature on file) Trinity Lauren MD 04/17/24 1127 -- Specimen: [id number] Received: 04/14/24 Status: MERNA Miguel Num: [id number] Spec Type: Surgical Subm Dr: Hoang Strange MD Tissues: A Lymph Node - Biopsy (Needle or Incisional) (R AXILLA LYMPH NODE) B Gross Only (LYMPH NODE) Procedures: HE/2, Gross/Micro L4, Level 1 Gross -- Patient: Hoang Tran [id number] (Continued) -- Specimen: [id number] Received: 04/14/24-1045 (Continued) Supplemental Report (Continued) Addendum [...] to an outside facility. DM -- Specimen: [id number] Received: 04/14/24 Status: MERNA Rivera Num: [id number] Spec Type: Surgical Subm Dr: Hoang Strange MD Tissues: A Lymph Node - Biopsy (Needle or Incisio (more content not included)... Normal [facility] Office Visiton 03-28-2024 Follow-up visit [id number] JuanygiaAllen carol W 1955 M Date Provider Department Center 03/28/2024 JEROD BANKS ELIAS Rosario Family History Problem Relation Age of Onset Coronary artery disease Mother Family Status - Relation Status Age at Mother Level of Service:[address]16 [place] OFFICE/OUTPATIENT ESTABLISHED MOD MDM 30 MIN Normal [facility] Office Visiton 02-25-2024 Follow-up visit [id number] IreneAllen carol W 1955 M Date Provider Department Center 02/25/2024 JEROD BANKS Family History Problem Relation Age of Onset Coronary artery disease Mother Family Status - Relation Status Age at Mother Level of Service:[address] [place] OFFICE/OUTPATIENT NEW MODERATE MDM 45 MINUTES Normal [facility] Insurance Correspondenceon 0 01-30-2024 Insurance Correspondence [id number]#1.00TIFF Normal [facility] Consent for Procedure/Surger yon 01-22-2024 Consent for Procedure/Surgery [id number]#1.00TIFF Normal [facility] Physician Referralon 024 Physician Referral [id number]#1.00TIFF Normal [facility] Screenson 01-22-2024 Screens [id number]#1.00TIFF Normal [facility] Ambulatory Visit Summaryon 0 01-21-2024 Ambulatory [...] When: Where: [facility] [address], [place] [address]- Medications What When Instructions Unchanged amlodipine (amLODIPine [...] urine (ur (more content not included)... Normal [facility] Patient Educationon 01-21-20 Patient Education Urology [...] Follow these instructions at home: ? Take vkge-rei-sivqiud and prescription medicines only as told by [...] the medicine (more content not included)... Normal [facility] INSULINon 08-27-2021 Insulin 19.2 uIU/mL Normal 2.6-24.9 [facility] Comment on above: Performed By: #### I NSULIN #### [facility] [address] [place] [address] Dr. Forrest Lauren CBC AUTO DIFFon 08-26-2021 BASO # 0.1 103/ul Normal 0.0-0.1 [facility] Comment on above: Performed By: #### P SASC #### [facility] [address] [place] [address] Dr. Forrest Lauren Basophils/100 WBC (Bld) 0.8 % Normal 0.2-2.0 [facility] Comment on above: Performed By: #### P SASC #### [facility] [address] [place] [address] [address] Forrest Lauren EO # 0.4 103/ul Normal 0.0-0.7 [facility] Comment on above: Performed By: #### P SASC #### [facility] [address] [place] [address] Dr. Forrest Lauren Eosinophils/100 WBC (Bld) 4.8 % Normal 0.9-7.0 [facility] Comment on above: Performed By: #### P SASC #### [facility] [address] [place] [address] Dr. Forrest Lauren Erythrocyte distribution width (RBC) [Ratio] 12.7 % Normal 11.0-15.0 [facility] Comment on above: Performed By: #### P SASC #### [facility] [address] [place] [address] Dr. Forrest Lauren Hematocrit (Bld) [Volume fraction] 48.3 % Normal 42.0-54.0 [facility] Comment on above: Performed By: #### P SASC #### [facility] [address] [place] [address] [address] Forrest Lauren Hemoglobin (Bld) [Mass/Vol] 16.4 g/dL Normal 14.0-18.0 [facility] Comment on above: Performed By: #### P SASC #### [facility] [address] [place] [address] [address] Forrest Lauren IG # 0.05 10e3/ul Critically high 0.00-0.03 [facility] Comment on above: Performed By: #### P SASC #### [facility] [address] [place] [address] [address] Forrest Lauren IG % 0.6 % Critically high 0.0-0.5 [facility] Comment on above: Performed By: #### P SASC #### [facility] [address] [place] [address] [address] Forrest Lauren LYMPH # 2.0 103/ul Normal 1.2-3.8 [facility] Comment on above: Performed By: #### P SASC #### [facility] [address] [place] [address] [address] Forrest Lauren Lymphocytes/100 WBC (Bld) 22.6 % Normal 20.5-60.0 [facility] Comment on above: Performed By: #### P SASC #### [facility] [address] [place] [address] [address] Forrest Lauren MANUAL DIFF REQ NO Normal [facility] Comment on above: Performed By: #### P SASC #### [facility] [address] [place] [address] [address] Forrest Lauren MCH (RBC) [Entitic mass] 29.8 pg Normal 25.9-34.0 [facility] Comment on above: Performed By: #### P SASC #### [facility] [address] [place] [address] [address] Forrest Lauren MCHC (RBC) [Mass/Vol] 34.0 g/dL Normal 29.9-35.2 [facility] Comment on above: Performed By: #### P SASC #### [facility] [address] [place] [address] [address] Forrest Lauren MCV (RBC) [Entitic vol] 87.8 fL Normal 80.0-94.0 [facility] Comment on above: Performed By: #### P SASC #### [facility] [address] [place] [address] [address] Forrest Lauren MONO # 0.7 103/ul Normal 0.3-0.8 [facility] Comment on above: Performed By: #### P SASC #### [facility] [address] [place] [address] [address] Forrest Lauren Monocytes/100 WBC (Bld) 8.0 % Normal 1.7-12.0 [facility] Comment on above: Performed By: #### P SASC #### [facility] [address] [place] [address] Dr. Forrest Lauren NEUT # 5.7 103/ul Normal 1.4-6.5 [facility] Comment on above: Performed By: #### P SASC #### [facility] [address] [place] [address] Dr. Forrest Lauren Neutrophils/100 WBC (Bld) 63.2 % Normal 43.0-75.0 [facility] Comment on above: Performed By: #### P SASC #### [facility] [address] [place] [address] [address] Forrset Lauren Platelet mean volume (Bld) [Entitic vol] 9.7 fL Normal 9.5-13.5 [facility] Comment on above: Performed By: #### P SASC #### [facility] [address] [place] [address] Dr. Forrest Lauren PLT 242 103/ul Normal 150-450 [facility] Comment on above: Performed By: #### P SASC #### [facility] [address] [place] [address] [address] Forrest Lauren RBC 5.50 106/ul Normal 4.70-6.10 [facility] Comment on above: Performed By: #### P SASC #### [facility] [address] [place] [address] [address] Forrest Lauren WBC 9.0 103/ul Normal 4.0-11.0 [facility] Comment on above: Performed By: #### P SASC #### [facility] [address] [place] [address] [address] Forrest Lauren GLYCOHEMOGLOBIN A1Con 2021 ADA RECOMMENDATION ADA THERAPEUTIC TARG ET 6.0 - 7.0 ACTION SUGGESTED > 7.0 Normal [facility] Comment on above: Performed By: #### A 1C #### [facility] [address] [place] [address] [address] Forrest Lauren Glucose [Mass/Vol] 194 mg/dL Normal [facility] Comment on above: Performed By: #### A 1C #### [facility] [address] [place] [address] Dr. Forrest Lauren HbA1c (Bld) [Mass fraction] 8.4 % Critically high <=6.0 [facility] Comment on above: Performed By: #### A 1C #### [facility] [address] [place] [address] Dr. Forrest Lauren LIPID PROFILEon 08-26-2021 CHOL-HDL RATIO NORM SEE BELOW Normal [facility] Comment on above: Result Comment: 3.3 - 4.4 LOW RISK 4.4 - 7.1 AVERAGE RISK 7.1 - 11.0 MODERATE RISK >11.0 HIGH RISK Performed By: #### P SASC #### [facility] [address] [place] [address] Dr. Forrest Lauren Cholesterol [Mass/Vol] 117 mg/dL Normal <=200 [facility] Comment on above: Performed By: #### P SASC #### [facility] [address] [place] [address] Dr. Forrest Lauren Cholesterol in HDL [Mass/Vol] 43 mg/dL Normal [facility] Comment on above: Performed By: #### P SASC #### [facility] [address] [place] [address] [address] Forrest Lauren Cholesterol in LDL [Mass/Vol] 45.6 mg/dL Normal [facility] Comment on above: Performed By: #### P SASC #### [facility] [address] [place] [address] [address] Forrest Lauren Cholesterol.total/C holesterol in HDL [Mass ratio] 2.7 {ratio} Normal [facility] Comment on above: Performed By: #### P SASC #### [facility] [address] [place] [address] [address] Forrest Lauren HDL NORMAL > or = 60 mg/dl - LO W CARDIOVASCULAR RISK <40 mg/dl - HIGH CARDIOVASCULAR RISK Normal [facility] Comment on above: Performed By: #### P SASC #### [facility] [address] [place] [address] [address] Forrest Lauren LDL CALC NORMAL SEE BELOW Normal [facility] Comment on above: Result Comment: <100 mg/dl OPTIMAL 100 - 129 mg/dl NEAR OR ABOVE OPTIMAL 130 - 159 mg/dl BORDERLINE HIGH 160 - 189 mg/dl HIGH >190 mg/dl VERY HIGH Performed By: #### P SASC #### [facility] [address] [place] [address] [address] Forrest Lauren Triglyceride [Mass/Vol] 142 mg/dL Normal <=150 [facility] Comment on above: Performed By: #### P SASC #### [facility] [address] [place] [address] [address] Forrest Lauren VLDL CALC 28.4 mg/dL Normal [facility] Comment on above: Performed By: #### P SASC #### [facility] [address] [place] [address] [address] Forrest Lauren PROF 14(COMP METB)on 022 Albumin [Mass/Vol] 4.1 g/dL Normal 3.5-5.0 [facility] Comment on above: Performed By: #### P SASC #### [facility] [address] [place] [address] Dr. Forrest Lauren Albumin/Globulin [Mass ratio] 1.2 {ratio} Normal [facility] Comment on above: Performed By: #### P SASC #### [facility] [address] [place] [address] [address] Forrest Lauren ALP [Catalytic activity/Vol] 82 U/L Normal 38-126 [facility] Comment on above: Performed By: #### P SASC #### [facility] [address] [place] [address] Dr. Forrest Lauren ALT [Catalytic activity/Vol] 38 U/L Normal 21-72 [facility] Comment on above: Performed By: #### P SASC #### [facility] [address] [place] [address] Dr. Forrest Lauren Anion gap [Moles/Vol] 12.7 mmol/L Normal [facility] Comment on above: Performed By: #### P SASC #### [facility] [address] [place] [address] Dr. Forrest Lauren AST [Catalytic activity/Vol] 18 U/L Normal 17-59 [facility] Comment on above: Performed By: #### P SASC #### [facility] [address] [place] [address] Dr. Forrest Lauren Bilirubin [Mass/Vol] 1.2 mg/dL Normal 0.2-1.3 [facility] Comment on above: Performed By: #### P SASC #### [facility] [address] [place] [address] Dr. Forrest Lauren Calcium [Mass/Vol] 9.7 mg/dL Normal 8.4-10.2 [facility] Comment on above: Performed By: #### P SASC #### [facility] [address] [place] [address] Dr. Forrest Lauren Chloride [Moles/Vol] 102 mmol/L Normal 98-107 [facility] Comment on above: Performed By: #### P SASC #### [facility] [address] [place] [address] Dr. Forrest Lauren CO2 [Moles/Vol] 30.6 mmol/L Critically high 22.0-30.0 [facility] Comment on above: Performed By: #### P SASC #### [facility] [address] [place] [address] Dr. Forrest Lauren Creatinine [Mass/Vol] 1.09 mg/dL Normal 0.66-1.25 [facility] Comment on above: Performed By: #### P SASC #### [facility] [address] [place] [address] [address] Forrest Lauren EGFR-AF GREEK >60 Normal >=60 [facility] Comment on above: Performed By: #### P SASC #### [facility] [address] [place] [address] [address] Forrest Lauren EGFR-NON AF GREEK >60 Normal >=60 [facility] Comment on above: Performed By: #### P SASC #### [facility] [address] [place] [address] Dr. Forrest Lauren Globulin (S) [Mass/Vol] 3.4 g/dL Normal [facility] Comment on above: Performed By: #### P SASC #### [facility] [address] [place] [address] Dr. Forrest Lauren Glucose [Mass/Vol] 238 mg/dL Critically high 74-106 [facility] Comment on above: Performed By: #### P SASC #### [facility] [address] [place] [address] Dr. Forrest Lauren Potassium [Moles/Vol] 4.3 mmol/L Normal 3.4-5.0 [facility] Comment on above: Performed By: #### P SASC #### [facility] [address] [place] [address] Dr. Forrest Lauren Protein [Mass/Vol] 7.5 g/dL Normal 6.1-8.2 [facility] Comment on above: Performed By: #### P SASC #### [facility] [address] [place] [address] Dr. Forrest Lauren Sodium [Moles/Vol] 141 mmol/L Normal 137-145 [facility] Comment on above: Performed By: #### P SASC #### [facility] [address] [address] [address] Forrest Lauren Urea nitrogen [Mass/Vol] 20.0 mg/dL Normal 9.0-20.0 [facility] Comment on above: Performed By: #### P SASC #### [facility] [address] [place] [address] Dr. Forrest Lauren Urea nitrogen/Creatinine [Mass ratio] 18.3 mg/mg Normal [facility] Comment on above: Performed By: #### P SASC #### [facility] [address] [place] [address] Dr. Forrest Lauren URIC ACID SERUMon 08-26-2021 Urate [Mass/Vol] 4.8 mg/dL Normal 3.5-8.5 [facility] Comment on above: Performed By: #### P SASC #### [facility] [address] [place] [address] Dr. Forrest Lauren Covid-19 PCR ([facility])on Sample Type Test performed using RT-PCR from a nasopharyngeal collected specimen. Normal [facility] Comment on above: Performed By: #### P SASC #### [facility] [address] [place] [address] Dr. Forrest Lauren SARS-CoV-2 (COVID-19) RNA MERA+probe Ql (Unsp spec) Detected Abnormal NOT DETECTED [facility] Comment on above: Result Comment: This test is not yet approved or cleared by the [place] FDA. When there are no FDA-approved or cleared tests available, and other criteria are met, FDA can make tests available under an emergency access mechanism called an Emergency Use Authorization (EUA). The EUA for this test is supported by the [place] of Health and Human Service's (HHS's) declaration [...] used). Performed By: #### P SASC #### [facility] [address] [place] [address] Dr. Forrest Lauren POINT OF CARE GLUCOSEon 05-0 Glucose [Mass/Vol] 255 mg/dL Critically high 74-106 T [facility] Comment on above: Performed By: #### P OCGLUC #### [facility] [address] [place], [place] [address] Matias Evelyn XR CHEST 1 Von 12-07-2020 [...] AMARIS WALKER Date: 2020-12-06 22:04 Normal [facility] INSULINon 10-02-2020 Insulin 16.9 uIU/mL Normal 2.6-24.9 [facility] Comment on above: Performed By: #### P SASC #### [facility] [address] [place] [address] Dr. Forrest Lauren CBC AUTO DIFFon 10-01-2020 BASO # 0.1 103/ul Normal 0.0-0.1 [facility] Comment on above: Performed By: #### C BC #### [facility] [address] [place] [address] Matias Evelyn Basophils/100 WBC (Bld) 0.6 % Normal 0.2-2.0 [facility] Comment on above: Performed By: #### C BC #### [facility] [address] [place] [address] Matias Evelyn EO # 0.4 103/ul Normal 0.0-0.7 [facility] Comment on above: Performed By: #### C BC #### [facility] [address] [place] [address] Matias Evelyn Eosinophils/100 WBC (Bld) 4.2 % Normal 0.9-7.0 [facility] Comment on above: Performed By: #### C BC #### [facility] [address] [place], [place] [address] Matias Evelyn Erythrocyte distribution width (RBC) [Ratio] 13.1 % Normal 11.0-15.0 [facility] Comment on above: Performed By: #### C BC #### [facility] [address] [place] [address] Matias Evelyn Hematocrit (Bld) [Volume fraction] 50.2 % Normal 42.0-54.0 [facility] Comment on above: Performed By: #### C BC #### [facility] [address] [place] [address] Matias Evelyn Hemoglobin (Bld) [Mass/Vol] 16.6 g/dL Normal 14.0-18.0 [facility] Comment on above: Performed By: #### C BC #### [facility] [address] [place] [address] Matias Evelyn IG # 0.05 10e3/ul Critically high 0.00-0.03 [facility] Comment on above: Performed By: #### C BC #### [facility] [address] [place] [address] Matias Evelyn IG % 0.6 % Critically high 0.0-0.5 [facility] Comment on above: Performed By: #### C BC #### [facility] [address] [place] [address] Matias Evelyn LYMPH # 1.9 103/ul Normal 1.2-3.8 [facility] Comment on above: Performed By: #### C BC #### [facility] [address] [place] [address] Matias Evelyn Lymphocytes/100 WBC (Bld) 22.2 % Normal 20.5-60.0 [facility] Comment on above: Performed By: #### C BC #### [facility] [address] [place] [address] Matiaswali Rodasen MANUAL DIFF REQ NO Normal [facility] Comment on above: Performed By: #### C BC #### [facility] [address] [place] [address] Matias Evelyn MCH (RBC) [Entitic mass] 29.4 pg Normal 25.9-34.0 [facility] Comment on above: Performed By: #### C BC #### [facility] [address] [place], [place] [address] Matias Rivas MCHC (RBC) [Mass/Vol] 33.1 g/dL Normal 29.9-35.2 [facility] Comment on above: Performed By: #### C BC #### [facility] [address] [place], [place] [address] Matiaswali Rivas MCV (RBC) [Entitic vol] 88.8 fL Normal 80.0-94.0 [facility] Comment on above: Performed By: #### C BC #### [facility] [address] [place], [place] [address] Matias Rivas MONO # 0.7 103/ul Normal 0.3-0.8 [facility] Comment on above: Performed By: #### C BC #### [facility] [address] [place], [place] [address] Matiaswali Rodasen Monocytes/100 WBC (Bld) 7.7 % Normal 1.7-12.0 [facility] Comment on above: Performed By: #### C BC #### [facility] [address] [place], [place] [address] Matiaswali Rodasen NEUT # 5.7 103/ul Normal 1.4-6.5 [facility] Comment on above: Performed By: #### C BC #### [facility] [address] [place], [place] [address] Matias Evelyn Neutrophils/100 WBC (Bld) 64.7 % Normal 43.0-75.0 [facility] Comment on above: Performed By: #### C BC #### [facility] [address] [place], [place] [address] Matias Evelyn Platelet mean volume (Bld) [Entitic vol] 10.4 fL Normal 9.5-13.5 [facility] Comment on above: Performed By: #### C BC #### [facility] [address] [place], [place] [address] Matias Evelyn PLT 243 103/ul Normal 150-450 [facility] Comment on above: Performed By: #### C BC #### [facility] [address] [place] [address] Matias Evelyn RBC 5.65 106/ul Normal 4.70-6.10 [facility] Comment on above: Performed By: #### C BC #### [facility] [address] [address] Matias Evelyn WBC 8.7 103/ul Normal 4.0-11.0 [facility] Comment on above: Performed By: #### C BC #### [facility] [address] [place] [address] Matias Rivas FREE THYROXINE INDEX T7on FTI 2.11 Normal [facility] Comment on above: Performed By: #### U TARIK, CMP, T7, PSASC, TSH, LIPID #### [facility] [address] [place] [address] Matiaswali Rivas T3U 34.0 % Normal 23.5-40.5 [facility] Comment on above: Performed By: #### U TARIK, CMP, T7, PSASC, TSH, LIPID #### [facility] [address] [place] [address] Matiaswali Rivas T4 [Mass/Vol] 6.20 ug/dL Normal 5.53-11.00 [facility] Comment on above: Performed By: #### U TARIK, CMP, T7, PSASC, TSH, LIPID #### [facility] [address] [place] [address] Matiaswali Rivas GLYCOHEMOGLOBIN A1Con 2020 ADA RECOMMENDATION ADA THERAPEUTIC TARG ET 6.0 - 7.0 ACTION SUGGESTED > 7.0 Normal [facility] Comment on above: Performed By: #### A 1C #### [facility] [address] [place], [place] [address] Matias Evelyn Glucose [Mass/Vol] 266 mg/dL Normal [facility] Comment on above: Performed By: #### A 1C #### [facility] [address] [place] [address] Matias Eevlyn HbA1c (Bld) [Mass fraction] 10.9 % Critically high <=6.0 [facility] Comment on above: Performed By: #### A 1C #### [facility] [address] [address] Matias Rivas LIPID PROFILEon 10-01-2020 CHOL-HDL RATIO NORM SEE BELOW Normal [facility] Comment on above: Result Comment: 3.3 - 4.4 LOW RISK 4.4 - 7.1 AVERAGE RISK 7.1 - 11.0 MODERATE RISK >11.0 HIGH RISK Performed By: #### P SASC #### [facility] [address] [address] [address] Forrest Lauren Cholesterol [Mass/Vol] 110 mg/dL Normal <=200 [facility] Comment on above: Performed By: #### P SASC #### [facility] [address] [address] [address] Forrest Lauren Cholesterol in HDL [Mass/Vol] 36 mg/dL Normal [facility] Comment on above: Performed By: #### P SASC #### [facility] [address] [address] [address] Forrest Lauren Cholesterol in LDL [Mass/Vol] 36.2 mg/dL Normal [facility] Comment on above: Performed By: #### P SASC #### [facility] [address] [address] [address] Forrest Lauren Cholesterol.total/C holesterol in HDL [Mass ratio] 3.1 {ratio} Normal [facility] Comment on above: Performed By: #### P SASC #### [facility] [address] [address] [address] Forrest Lauren HDL NORMAL > or = 60 mg/dl - LO W CARDIOVASCULAR RISK <40 mg/dl - HIGH CARDIOVASCULAR RISK Normal [facility] Comment on above: Performed By: #### P SASC #### [facility] [address] [address] [address] Forrest Lauren LDL CALC NORMAL SEE BELOW Normal [facility] Comment on above: Result Comment: <100 mg/dl OPTIMAL 100 - 129 mg/dl NEAR OR ABOVE OPTIMAL 130 - 159 mg/dl BORDERLINE HIGH 160 - 189 mg/dl HIGH >190 mg/dl VERY HIGH Performed By: #### P SASC #### [facility] [address] [place] [address] Dr. Forrest Lauren Triglyceride [Mass/Vol] 189 mg/dL Critically high <=150 [facility] Comment on above: Performed By: #### P SASC #### [facility] [address] [address] [address] Forrest Lauren VLDL CALC 37.8 mg/dL Normal [facility] Comment on above: Performed By: #### P SASC #### [facility] [address] [address] [address] Forrest Lauren PROF 14(COMP METB)on 021 Albumin [Mass/Vol] 4.1 g/dL Normal 3.5-5.0 [facility] Comment on above: Performed By: #### U TARIK, CMP, T7, PSASC, TSH, LIPID #### [facility] [address] [place] [address] Matias Evelyn Albumin/Globulin [Mass ratio] 1.2 {ratio} Normal [facility] Comment on above: Performed By: #### U TARIK, CMP, T7, PSASC, TSH, LIPID #### [facility] [address] [place] [address] Matias Evelyn ALP [Catalytic activity/Vol] 80 U/L Normal 38-126 [facility] Comment on above: Performed By: #### U TARIK, CMP, T7, PSASC, TSH, LIPID #### [facility] [address] [place] [address] Matias Evelyn ALT [Catalytic activity/Vol] 42 U/L Normal 21-72 [facility] Comment on above: Performed By: #### U TARIK, CMP, T7, PSASC, TSH, LIPID #### [facility] [address] [place] [address] Matias Evelyn Anion gap [Moles/Vol] 12.3 mmol/L Normal [facility] Comment on above: Performed By: #### U TARIK, CMP, T7, PSASC, TSH, LIPID #### [facility] [address] [address] Matias Evelyn AST [Catalytic activity/Vol] 24 U/L Normal 17-59 [facility] Comment on above: Performed By: #### U TARIK, CMP, T7, PSASC, TSH, LIPID #### [facility] [address] [address] Matias Evelyn Bilirubin [Mass/Vol] 1.3 mg/dL Normal 0.2-1.3 [facility] Comment on above: Performed By: #### U TARIK, CMP, T7, PSASC, TSH, LIPID #### [facility] [address] [place] [address] Matias Evelyn Calcium [Mass/Vol] 9.3 mg/dL Normal 8.4-10.2 [facility] Comment on above: Performed By: #### U TARIK, CMP, T7, PSASC, TSH, LIPID #### [facility] [address] [place] [address] Matias Evelyn Chloride [Moles/Vol] 103 mmol/L Normal 98-107 [facility] Comment on above: Performed By: #### U TARIK, CMP, T7, PSASC, TSH, LIPID #### [facility] [address] [place] [address] Matias Evelyn CO2 [Moles/Vol] 30.0 mmol/L Normal 22.0-30.0 [facility] Comment on above: Performed By: #### U TARIK, CMP, T7, PSASC, TSH, LIPID #### [facility] [address] [place] [address] Matias Evelyn Creatinine [Mass/Vol] 1.20 mg/dL Normal 0.66-1.25 [facility] Comment on above: Performed By: #### U TARIK, CMP, T7, PSASC, TSH, LIPID #### [facility] [address] [place] [address] Matias Evelyn EGFR-AF GREEK >60 Normal >=60 [facility] Comment on above: Performed By: #### U TARIK, CMP, T7, PSASC, TSH, LIPID #### [facility] [address] [address] Matias Evelyn EGFR-NON AF GREEK >60 Normal >=60 [facility] Comment on above: Performed By: #### U TARIK, CMP, T7, PSASC, TSH, LIPID #### [facility] [address] [address] Matias Evelyn Globulin (S) [Mass/Vol] 3.5 g/dL Normal [facility] Comment on above: Performed By: #### U TARIK, CMP, T7, PSASC, TSH, LIPID #### [facility] [address] [address] Matias Evelyn Glucose [Mass/Vol] 269 mg/dL Critically high 74-106 [facility] Comment on above: Performed By: #### U TARIK, CMP, T7, PSASC, TSH, LIPID #### [facility] [address] [place] [address] Matias Evelyn Potassium [Moles/Vol] 4.3 mmol/L Normal 3.4-5.0 [facility] Comment on above: Performed By: #### U TARIK, CMP, T7, PSASC, TSH, LIPID #### [facility] [address] [address] Matias Evelyn Protein [Mass/Vol] 7.6 g/dL Normal 6.1-8.2 [facility] Comment on above: Performed By: #### U TARIK, CMP, T7, PSASC, TSH, LIPID #### [facility] [address] [address] Matias Evelyn Sodium [Moles/Vol] 141 mmol/L Normal 137-145 [facility] Comment on above: Performed By: #### U TARIK, CMP, T7, PSASC, TSH, LIPID #### [facility] [address] [place] [address] Matias Evelyn Urea nitrogen [Mass/Vol] 17.0 mg/dL Normal 9.0-20.0 [facility] Comment on above: Performed By: #### U TARIK, CMP, T7, PSASC, TSH, LIPID #### [facility] [address] [place] [address] Matias Rivas Urea nitrogen/Creatinine [Mass ratio] 14.2 mg/mg Normal [facility] Comment on above: Performed By: #### U TARIK, CMP, T7, PSASC, TSH, LIPID #### [facility] [address] [address] Matias Rivas TSHon 10-01-2020 TSH 1.574 uIU/mL Normal 0.470-4.68 0 [facility] Comment on above: Performed By: #### P SASC #### [facility] [address] [address] [address] Forrest Lauren TSH RANGE SEE BELOW Normal [facility] Comment on above: Result Comment: <0.3 4 UIU/ml HYPERTHYROID 0.34-5.60 UIU/ml EUTHYROID >5.60 UIU/ml HYPOTHYROID Performed By: #### P SASC #### [facility] [address] [address] [address] Forrest Lauren URIC ACID SERUMon 10-01-2020 Urate [Mass/Vol] 4.8 mg/dL Normal 3.5-8.5 [facility] Comment on above: Performed By: #### P SASC #### [facility] [address] [address] [address] Forrest Lauren Cardiovascular Lab Reporton 08-03-2017 Cardiovascular Lab Report [facility] [place] #: [id number] Physician: Jerod Miller M.D.Medicine Service Date: 2017Division of Birthdate: 6Cardiology Room #: [facility]Services[facility] [id number] [place], [place] [address]Lwqwb Fax Cardiovascular Laboratory ReportINDICATION: Hoang Tran is [...] the right internal jugular vein and a 6-Bermudian x 11cm sheath was placed. A 6-Bermudian Griffith catheter was used for right heartcatheterization with measurement of pressures and calculation of cardiacoutput using the estimated Luke method. Griffith catheter was removed.Using ultrasound guidance and micropuncture technique, access was obtainedin the left radial artery and a 6-Bermudian x 11 cm Hydrophilic sheath wasadvanced. Verapamil [...] 08/02/2017/02:42 P/Jerod Manuel M.D.Date Trans: 08/03/2017 11:29 [id number]: Yfn Mata D.O. [address] [place] [address] [facility] Vital Signs Date Time Vital Sign Value Performing Clinician Faci lity 06-03-2024 09:54-0400 Diastolic blood pressure 68 mm[Hg] Jassi CLEMENS [facility] 06-03-2024 09:54-0400 Heart rate 105 /min Jassi CLEMENS [facility] 06-03-2024 09:54-0400 Respiratory rate 16 /min Jassi CLEMENS [facility] 06-03-2024 09:54-0400 Systolic blood pressure 103 mm[Hg] Jassi CLEMENS [facility] 05-29-2024 06:42-0400 Body height 190.5 cm DO [employer] Work Phone: [facility] 05-29-2024 06:42-0400 Body weight 78.47 kg DO [employer] Work Phone: [facility] 01-21-2024 11:44-0400 Blood Pressure Location Moody POP [facility] 01-21-2024 11:44-0400 Diastolic blood pressure 72 mm[Hg] Moodyarnol POP [facility] 01-21-2024 11:44-0400 Heart rate 70 /min Moodyarnol POP [facility] 01-21-2024 11:44-0400 Respiratory rate 16 /min Moodyarnol POP [facility] 01-21-2024 11:44-0400 Systolic blood pressure 108 mm[Hg] Moody POP [facility] Encounters Encounter Date Encounter Type Care Provider Facility Start: 06-09-2024 End: 06-09-2024 ambulatory Moody POP Facility:[facility] Start: 06-09-2024 End: 06-09-2024 Patient encounter procedure Moody POP [facility] Start: 06-03-2024 End: 06-04-2024 ambulatory Jassi CLEMENS Facility:[id number] Start: 06-03-2024 End: 06-03-2024 Patient encounter procedure Jassi CLEMENS [facility] Start: 05-29-2024 End: 05-29-2024 Patient encounter procedure DO González Kuns Work Phone: [facility] [place] [facility] [place] Work Phone: Start: 05-29-2024 End: 05-29-2024 ambulatory DO González Kuns Work Phone: [facility] Work Phone: Start: 05-26-2024 End: 05-26-2024 Toby [...] End: 04-30-2024 Patient encounter procedure Jassi YANCEYL [facility] Start: 04-28-2024 ambulatory Jassi YANCEYL Facility:[facility] Start: 04-23-2024 End: 04-23-2024 ambulatory DO González Kuns Work Phone: [facility] [place] [facility] Work Phone: Start: 04-23-2024 End: 04-23-2024 Departed Referred DO González Kuns Work Phone: [facility] [place] [facility] Start: 04-23-2024 ambulatory Jassi NILL Facility:[facility] Johnson Start: 04-22-2024 End: 04-23-2024 ambulatory Jassi R NILL Facility:[id number] Start: 04-21-2024 Non-patient / Non-visit DO Felipa tt Kuns Work Phone: [facility] Work Phone: Start: 04-11-2024 End: 04-11-2024 ambulatory DO González Kuns Work Phone: [facility] [place] [facility] Work Phone: Start: 04-11-2024 End: 04-11-2024 Departed Referred DO González Kuns Work Phone: [facility] [place] [facility] Start: 03-28-2024 End: 03-28-2024 ambulatory [facility] Start: 02-25-2024 End: 02-25-2024 ambulatory [facility] Start: 02-11-2024 End: 02-11-2024 ambulatory Moody Rosi DONN Facility:[id number] Start: 01-21-2024 End: 01-21-2024 ambulatory Moody Rosi DONN Facility:[facility] Start: 01-21-2024 End: 01-21-2024 Patient encounter procedure Moody POP [facility] Start: 09-12-2023 ambulatory Jassi CLEMENS Facility:[facility] Start: 08-26-2021 End: 08-26-2021 ambulatory AILIN BAKER Facility:[facility] Start: 02-23-2021 ambulatory AILIN BAKER Facility:[facility] Start: 12-06-2020 End: 12-07-2020 ambulatory ILAN TODD Facility:[facility] Start: 10-07-2020 Encounter for genera l adult medical examination without abnormal findings AILIN BAKER [facility] Start: 10-01-2020 End: 10-02-2020 ambulatory AILIN BAKER Facility:[facility] Start: 10-01-2020 End: 10-02-2020 Encounter for general adult medical examination without abnormal findings AILIN BAKER Facility:[facility] Start: 2017 End: 08-03-2017 Ambulatory PROVIDER UNKNOWN Facility:[facility] Start: 07-24-2017 End: 07-25-2017 Ambulatory DEFAULT PHYSICIAN Facility:[facility] Start: 07-19-2017 End: 07-20-2017 Ambulatory DEFAULT PHYSICIAN Facility:[facility] Start: 06-18-2017 End: 06-19-2017 Ambulatory DEFAULT PHYSICIAN Facility:[facility] Procedures Date Procedure Procedure Detail Performing [...] above: Performed By: #### P SASC #### [facility] [address] [place], [place] [address] Dr. Forrest Lauren Start: 10-01-2020 PSA screening AILIN KHAN Comment on above: Performed By: #### U TARIK, CMP, T7, PSASC, TSH, LIPID #### [facility] [address] [place], [place] [address] Matias Rivas Start: 08-06-2013 Colonoscopy Moody ASHER Start: 08-06-2004 Neoplasm of brain (disorder) Moody POP Back structure, excl uding neck (body structure) Moody POP Removal of acoustic neuroma Jassi CLEMENS Spinal arthrodesis Jassi INFANTE Tonsillectomy Moody POP Plan of Treatment Date Care Activity Detail Author Start: 06-16-2024 End: 06-16-2024 Patient encounter procedure 06/16/2024 3:00 PM EST Office Visit [facility] [address] [place] [address] [facility] Start: 06-05-2024 End: 06-05-2024 Patient encounter procedure 06/05/2024 11:00 AM EDT Office Visit [facility] [address] [address] [place] [address] [place] [address] [facility] Auditory function tests Auditory function tests Audiology Routine 05/26/2024 1:35 PM EDT [facility] Work Phone: Payers Date Payer Category Payer Medicare (Managed Care) [facility] [id number] 2023 Medicare [id number] 1959 [facility] [id number] 1959 Medicare [id number] 1959 Self-pay 1956 Unknown [id number] 1956 Unknown [id number] 1956 Unknown [id number] 1956 Unknown [id number] [id number] 1956 Unknown [id number] [id number] 1956 Unknown [id number] 1956 Unknown [id number] 1955 Unknown [id number]. 727 1955 Unknown [id number]. 727 1955 Unknown [id number]. 727 1955 Unknown [id number]. 727 1955 Unknown [id number]. 727 1955 Unknown [id number]. 727 Private Health Insurance [facility] [id number] Unknown Unknown Bruce BC/BS [id number] Unknown [id number]. 531 Unknown [id number]. 531 Unknown [id number]. 531 Social History Date Type Detail Facility Start: 01-21-2024 End: 06-03-2024 Tobacco smoking status Never smoked tobacco (finding) [facility] Tobacco smoking status Never [facility] Sex Assigned At Male [facility] Start: 1955 Sex Assigned At Male F [facility] Tobacco smoking status NHIS Tobacco smoking consumption unknown [facility] Start: 1955 Sex assigned at Not on file [facility] Functional Status Date Assessment Result Facility 06-03-2024 Functional Status N/A [facility] [place] 04-30-2024 Functional Status N/A [facility] [place] 01-21-2024 Functional Status N/A [facility] Clinical Notes 01-21-2024 to 06-03-2024 Yanna [...] nodes of axilla and upper limb) plan uiofbu-[id number] insertion for chemotherapy; informed consent obtained. Ancef [...] Tobacco Use:. House (more content not included)... [facility] Comment on above: Result Comment: Elec [...] is eligible for hearing aids through his [facility] [employer] Benefit. Recommend a custom mold for the left ear. Ear impression taken of left ear without incident. Pt ordered mid level technology. Order completed in [employer] portal and pt scheduled for HAF 06-16-24 in [place]. documented in this encounter [facility] 03-28-2024 Note [place] Cardiology - [facility] Subjective Hoang Tran is a [...] HDL 42. TSH (more content not included)... [facility] 02-25-2024 Note [place] Cardiology - [facility] Subjective Hoang Tran is a [...] platelets 256, potassium (more content not included)... [facility] 02-15-2024 Hospital Discharge instructions Follow Up Care 02/15/2024 09:24:50 With:DONN ELLIS, Moody Aranda, URL Address: [facility] [address], [place] [address]- When: Unknown [facility] 01-21-2024 Note Chief Complaint Referral *LUTs [...] neoplasm of prostat (more content not included)... [facility] Comment on above: Result Comment: Elec [...] urethra. Follow these instructions at home: Take oqjh-jel-avqwioa and prescription medicines only as told by [...] provider. Document Revised: 02/08/2022 Document Reviewed: 02/08/2022 [employer] Patient Education 2022 [employer]. Follow Up Care 09/13/2023 09:26:56 With:DONN ELLIS, Moody Aranda, URL Address: [facility] [address] , [place] [address]- When: Unknown [facility] Evaluation + Plan note No data available for this section [facility] Evaluation + Plan note Future Appointments Appointment Date:06/09/2024 10:45:00 AM Scheduled Provider:Moody POP MD Location:[facility] Appointment Type:URO Office Visit [facility] Evaluation note No assessment inform ation available [facility] Work Phone: Evaluation note Diagnosis 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 documented in this encounter [facility] No data available for this section [facility] Progress note No data available for this section [facility] Summary Purpose Family History No Family [...] and content) DATE CREATED AUTHOR 01/29/2018 [facility] DATE CREATED AUTHOR AUTHOR'S ORGANIZ ATION 09/01/2021 [facility] DATE CREATED AUTHOR AUTHOR'S ORGANIZ ATION 03/30/2024 [facility] DATE CREATED AUTHOR AUTHOR'S ORGANIZ ATION 05/28/2024 [facility] EPIC DATE CREATED AUTHOR AUTHOR'S ORGANIZ ATION 06/08/2024 [facility] DATE CREATED AUTHOR AUTHOR'S ORGANIZ ATION 06/11/2024 [facility] Patient Care team informatio [...] Member Role Status Dates Jassi Clemens MD [facility] Attending Provider Active Start: April 23, 2024 End: April 23, 2024 Team Status: Inactive Member Role Status Dates Sonia Donnelly MD Attending Provider Active St art: May 29, 2024 End: May 29, 2024 MEHRDAD Bardales Primary Care Provider Active Start: May 29, 2024 End: May 29, 2024 Team Status: Active Member Role Status Dates González Moon DO Primary Care Provider Active Sole Blacker Relationship Specialty Start Date End Date Ailin Green MD [address] [place] [address] Referring Physician Family Medicine 05/16/24 Ailin Green MD [address] [place] [address] Referring Physician Family Medicine 05/26/24 Sole Blacker Relationship Specialty Start Date End Date Ailin Green MD [address] [place] [phone] Referring Physician Family Medicine 05/16/24 Ailin Green MD [address] [place] [address] Referring Physician Family Medicine 05/26/24 Goals (unrecognized [...] BE BASED ON THE PRIMARY CLINICAL RECORDS. [facility] [employer] [facility]. provides no warranty or guarantee of the accuracy or completeness of information in this document.
--- NOTE | 2024-06-13 20:54 | PC.NURSE ---
PT EYES CLOSED AND HEAD BACK ON PILLOW. ASLEEP, WITH MOUTH WIDE OPEN. WEARING VAPOTHERM CORRECTLY BUT MOUTH BREATHING.
[2024-06-13] MEDS: METOPROLOL TARTRATE 25 MG TABLET PO (21:54)
[2024-06-13] MEDS: INSULIN ASPART 300 UNIT/3 ML PEN SUBQ (21:54)
[2024-06-13] MEDS: CEFDINIR 300 MG CAPSULE PO (21:54)
[2024-06-13] MEDS: ENSURE HP 237 ML LIQUID PO (21:54)
[2024-06-13] MEDS: FAMOTIDINE/PF 20 MG/2 ML VIAL IV (21:54)
[2024-06-13] MEDS: INSULIN GLARGINE 300 UNIT/3 ML INSULN.PEN 20 UNIT SQ (21:55)
[2024-06-13 22:03] LABS: Glucometer 157 mg/dL (74-106)
--- NOTE | 2024-06-13 23:36 | PC.NURSE ---
decreased cardizem drip to 5 ml/hr for lowered BP at this time.
[2024-06-14] VITALS (81 sets, daily range): BP systolic 85–126; BP diastolic 54–78; PULSE 69–157; TEMP 36.3–36.8; O2SAT 94–97
[2024-06-14 06:08] LABS: Basophils Percent Auto 0.2 % (0.2-2.0); Eosinophils Percent Auto 0.5 % (0.9-7.0); Hematocrit 33.4 % (42.0-54.0); Immature Granulocytes Abs Auto 0.04 10^3/uL (0.00-0.03); Immature Granulocytes Pct Auto 0.7 % (0.0-0.5); Lymphocytes Absolute Auto 0.6 10^3/uL (1.2-3.8); Lymphocytes Percent Auto 9.7 % (20.5-60.0); Mean Corpuscular HGB Conc 29.9 g/dL (29.9-35.2); Mean Corpuscular Hemoglobin 23.5 pg (25.9-34.0); Mean Corpuscular Volume 78.6 fL (80.0-94.0); Mean Platelet Volume 9.6 fL (9.5-13.5); Monocytes Absolute Auto 0.1 10^3/uL (0.3-0.8); Monocytes Percent Auto 1.6 % (1.7-12.0); Neutrophils Percent Auto 87.3 % (43.0-75.0); Platelet Count 310 10^3/uL (150-450); Red Blood Count 4.25 10^6/uL (4.70-6.10); Red Cell Distribution Width 16.9 % (11.0-15.0); White Blood Count 5.8 10^3/uL (4.0-11.0)
[2024-06-14 06:15] LABS: BUN Creatinine Ratio 21.4; Calcium 8.5 mg/dL (8.5-10.1); Carbon Dioxide 32.1 mmol/L (21.0-32.0); Chloride 103 mmol/L (98-107); Estimated GFR (African America >60 (>=60 mL/min/1.73m^2); Estimated GFR (Non-African Ame >60 (>=60 mL/min/1.73m^2); Glucose 247 mg/dL (74-106); INR 1.05; Magnesium 2.1 mg/dL (1.8-2.4); Partial Thromboplastin Time 36.5 sec (22.3-36.2); Potassium 4.1 mmol/L (3.5-5.1); Prothrombin Time 11.1 sec (9.0-11.6); Sodium 140 mmol/L (136-145)
[2024-06-14] MEDS: INSULIN ASPART 300 UNIT/3 ML PEN SUBQ ×2 (07:58→11:19)
[2024-06-14] MEDS: DILTIAZEM HCL 180 MG CAP.ER.24H PO (08:01)
[2024-06-14] MEDS: ATORVASTATIN CALCIUM 10 MG TABLET PO (09:08)
[2024-06-14] MEDS: ENSURE HP 237 ML LIQUID PO ×2 (09:08→21:25)
[2024-06-14] MEDS: METFORMIN HCL 500 MG TAB.ER.24H 1000 MG PO (09:08)
[2024-06-14] MEDS: VITS A,C,E/LUTEIN/MINERALS 1 TABLET 1 TAB PO (09:08)
[2024-06-14] MEDS: APIXABAN 5 MG TABLET PO ×2 (09:09→21:25)
[2024-06-14] MEDS: PROSTAT 15 GM PROTEIN/100 CAL 30 ML LIQUID PACKET PO ×2 (09:09→21:25)
[2024-06-14] MEDS: SITAGLIPTIN PHOSPHATE 50 MG TABLET 100 MG PO (09:09)
[2024-06-14] MEDS: METOPROLOL TARTRATE 25 MG TABLET 50 MG PO ×2 (09:09→21:25)
[2024-06-14] MEDS: LIOTHYRONINE SODIUM 5 MCG TABLET 10 MCG PO (09:09)
[2024-06-14] MEDS: FAMOTIDINE/PF 20 MG/2 ML VIAL IV ×2 (09:09→21:25)
[2024-06-14] MEDS: LOSARTAN POTASSIUM 50 MG TABLET PO (09:09)
[2024-06-14] MEDS: CEFDINIR 300 MG CAPSULE PO ×2 (09:10→21:25)
--- NOTE | 2024-06-14 10:17 | P.HP_ITS ---
HPI H&P: HPI History of Present Illness Chief complaint: Afib Atrial Fibrillation Narrative: Patient presented to the emergency room with increasing palpitations. He was diagnosed with atrial fibrillation earlier in the week when port was placed for his lymphoma treatment. Not treated with anticoagulants at that time patient is unsure why, he has been in and out of atrial fibrillation overnight, heart rate can be up into the 130s. He is admitted for A-fib with RVR I saw patient up in the intensive care unit, resting comfortably in bed, very hard of hearing, left ear is the best, denied chest pain, does get shortness of breath at times mostly when his heart rate is high. No other specific complaints. Just generalized weakness secondary to his lymphoma treatment Opioid HPI Opioid Management Most Recent Pain and Opioid Data: Last Office Visit 05/15/24 07:41 05/15/24 Last Pain Scale 2 06/04/24 16:00 06/04/24 Last Pain Intensity 0 04/23/24 08:25 04/23/24 Last Pain Assessment 06/14/24 10:52 Last ORT Total Score 0 06/13/24 20:21 06/13/24 Last ORT Risk Category Low Risk 06/13/24 20:21 06/13/24 Review of Systems ROS Status of ROS 10 or more systems reviewed and unremark able except as noted in history and below 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 - Primary cutaneous [id number] T-cell proliferations not having achieved remission (ICD-10) Lymphoproliferative disorder ?D47.9 - Neoplasm of uncertain behavior of lymphoid, hematopoietic and rela kirill tissue, unspecified (ICD-10) Poor balance ?R26.89 - Other abnormalities of gait and mobility (ICD-10) Failure to thrive Risk for falls ?Z91.81 - History of falling (ICD-10) Neck pain ?M54.2 - Cervicalgia (ICD-10) Arthritis ?M19.90 - Unspecified osteoarthritis, unspecified site (ICD-10) Back pain ?M54.9 - Dorsalgia, unspecified (ICD-10) Dyspnea on exertion ?R06.09 - Other forms of dyspnea (ICD-10) Nausea ?R11.0 - Nausea (ICD-10) GERD (gastroesophageal reflux disease) ?K21.9 - Gastro-esophageal reflux disease without esophagitis (ICD-10) Fatigue ?R53.83 - Other fatigue (ICD-10) Heart murmur ?R01.1 - Cardiac murmur, unspecified (ICD-10) Hypothyroidism ?E03.9 - Hypothyroidism, unspecified (ICD-10) Lymphoma ?C85.90 - Non-Hodgkin lymphoma, unspecified, unspecified site (ICD-10) Hearing loss ?H91.90 - Unspecified hearing loss, unspecified ear (ICD-10) Mass of right axilla ?R22.31 - Localized swelling, mass and lump, right upper limb (ICD-10) Acute hyponatremia ?E87.1 - Hypo-osmolality and hyponatremia (ICD-10) Pulmonary arterial hypertension ?I27.21 - Secondary pulmonary arterial hypertension (ICD-10) COVID ?U07.1 - COVID-19 (ICD-10) Anxiety ?F41.9 - Anxiety disorder, unspecified (ICD-10) BPH (benign prostatic hyperplasia) ?N40.0 - Benign prostatic hyperplasia without lower urinary tract symptoms (ICD-10) Weight loss ?R63.4 - Abnormal weight loss (ICD-10) Axillary lymphadenopathy ?R59.0 - Localized enlarged lymph nodes (ICD-10) Deafness in right ear ?H91.91 - Unspecified hearing loss, right ear (ICD-10) Acoustic neuroma ?D33.3 - Benign neoplasm of cranial nerves (ICD-10) Overactive bladder ?N32.81 - Overactive bladder (ICD-10) Hypertension ?I10 - Essential (primary) hypertension (ICD-10) Hyperlipidemia ?E78.5 - Hyperlipidemia, unspecified (ICD-10) Glucosuria ?R81 - Glycosuria (ICD-10) Diabetes mellitus ?E11.9 - Type 2 diabetes mellitus without complications (ICD-10) BPH with obstruction/lower urinary tract symptoms ?N40.1 - Benign prostatic hyperplasia with lower urinary tract symptoms (ICD- 10) ?N13.8 - Other obstructive and reflux uropathy (ICD-10) Surgical History (Updated 05/27/24 @ 10:11 by Coty Arciniega NP) History of bone marrow biopsy ?Z98.890 - Other specified postprocedural states (ICD-10) History of hernia repair ?Z98.890 - Other specified postprocedural states (ICD-10) ?Z87.19 - Personal history of other diseases of the digestive system (ICD-10) History of spinal surgery ?Z98.890 - Other specified postprocedural states (ICD-10) S/P excision of acoustic neuroma ?Z98.890 - Other specified postprocedural states (ICD-10) ?Z86.018 - Personal history of other benign neoplasm (ICD-10) History of ear surgery ?Z98.890 - Other specified postprocedural states (ICD-10) History of tonsillectomy ?Z90.89 - Acquired absence of other organs (ICD-10) History of spinal fusion ?Z98.1 - Arthrodesis status (ICD-10) History of colonoscopy ?Z98.890 - Other specified postprocedural states (ICD-10) Family History (Updated 05/26/24 @ 09:41 by Coty Arciniega NP) Mother Heart disease Other Cirrhosis Family history of COPD (chronic obstructive pulmonary disease) Social History (Updated 04/21/24 @ 14:57 by Ssuy Echeverria LPN) Within the past year, how often did you have a drink containing alcohol: never Score interpretation: A score less than 4 is consistent with normal alcohol consumption. Smoking status: Never smoker Non-prescribed substance use: denies use Previous occupational history: retired Highest level of school completed/degree received: high school graduate Little interest or pleasure in doing things: not at all Feeling down, depressed, or hopeless: not at all Feel stressed/tense/nervous/anxious/difficulty sleeping: not at all Due to disability, difficulty making decisions: No Do you think of yourself as: straight/heterosexual Gender Identity: male Meds Home Medications and Allergies Home Medications ?Medication ?Instructions ?Recorded ?Confirmed ?Type metformin 1,000 mg tablet 1,000 mg PO DAILY 02/01/24 06/13/24 History sitagliptin phosphate 100 mg 100 mg PO DAILY 02/01/24 06/13/24 History tablet (Januvia) vitamins A,C,L-sagr-ffvjmz 4,296 1 cap PO DAILY 04/11/24 06/13/24 History mcg-226 mg-90 mg capsule (PreserVision AREDS) atorvastatin 10 mg tablet 10 mg PO .qd 04/21/24 06/13/24 History glucagon 1 mg solution for 1 mg IV PRN 04/21/24 06/13/24 History injection (Glucagon Emergency Kit) food supplemt, lactose-reduced 1 ea PO BID #5,688 mL 04/23/24 06/13/24 Rx (Ensure Active Protein-Muscle oral liquid) insulin glargine 100 unit/mL (3 20 unit (0.2 mL) subcut .qhs #0 mL 04/23/24 06/13/24 Rx mL) subcutaneous pen (Lantus Solostar U-100 Insulin) liothyronine 5 mcg tablet 10 mcg (2 x 5 mcg) PO QD #60 tabs 04/23/24 06/13/24 Rx losartan 50 mg tablet 50 mg PO DAILY 05/26/24 06/13/24 History metoprolol tartrate 25 mg tablet 25 mg PO Q12H 06/12/24 06/13/24 History cefdinir 300 mg capsule 300 mg PO BID 06/13/24 06/13/24 History ondansetron 4 mg disintegrating 4 mg PO Q6H PRN nausea and vomiting 06/13/24 06/13/24 History tablet prochlorperazine maleate 10 mg 10 mg PO Q6H PRN nausea and 06/13/24 06/13/24 History tablet vomiting Allergies Allergy/AdvReac Type Severity Reaction Status Date / Time No Known Drug Allergies Allergy Verified 05/26/24 09:26 Exam Constitutional Vital Signs, click to edit/add: Last Vital Signs Temp 98.2 F 06/14/24 07:00 Pulse 129 H 06/14/24 10:09 Resp 23 H 06/14/24 08:00 BP 101/62 06/14/24 08:00 Pulse Ox 95 06/14/24 05:11 O2 Del Method Room Air 06/14/24 05:11 O2 Flow Rate 40 06/13/24 20:53 FiO2 70 06/13/24 20:53 Documenting provider has reviewed patient's vital signs: yes Common normals: no apparent distress HENMT Common normals: normocephalic Chest Common normals: inspection of chest normal and palpation of chest normal Cardio Common normals: irregular rate and irregular rhythm Rate: tachycardic Rhythm: abnormal rhythm GI Common normals: Normal to inspection, nondistended, normoactive bowel sounds present Results Labs Labs: Short CBC 06/13/24 06/14/24 Range/Units 16:30 05:49 WBC 7.0 5.8 (4.0-11.0) 10^3/uL Hgb 10.9 L 10.0 L (14.0-18.0) g/dL Hct 36.3 L 33.4 L (42.0-54.0) % Plt Count 369 310 (150-450) 10^3/uL BMP 06/13/24 06/14/24 16:30 05:39 Sodium 139 140 Potassium 3.9 4.1 Chloride 104 103 Carbon Dioxide 30.3 32.1 H BUN 20.0 H 18.0 Creatinine 0.86 0.84 Glucose 233 H 247 H Calcium 9.3 8.5 Liver Function 06/13/24 Range/Units 16:30 Total Bilirubin 0.7 (0.2-1.0) mg/dL AST 36 (15-37) U/L ALT 30 (16-63) U/L Alkaline Phosphatase 298 H (46-116) U/L Albumin 1.4 L (3.4-5.0) g/dL Assessment and Plan Assessment and Plan (1) Atrial fibrillation: (2) Port-A-Cath in place: (3) Hodgkin lymphoma: Qualifiers: Hodgkin lymphoma type: unspecified type Lymphoma site: unspecified region Qualified Code(s): C81.90 - Hodgkin lymphoma, unspecified, unspecified site (4) Failure to thrive: (5) Back pain: (6) Hypothyroidism: Qualifiers: Hypothyroidism type: acquired Qualified Code(s): E03.9 - Hypothyroidism, unspecified Plan Admission findings: Tachycardia, respiratory distress, significant hypotension with a mean arterial pressure down into the 63, severe protein calorie malnutrition, iron deficiency anemia, elevated liver function test secondary to atrial fibrillation with rapid ventricular response. A-fib with RVR-increase his beta-ander, add long acting Cardizem and try to wean off of Cardizem drip. Cardiac markers are negative, if can get rate controlled and ambulating safely there is a possibility he could be discharged to home later today. If not ambulating well or rate is not controlled he will need to stay until tomorrow to continue to adjust medications Lymphoma-making him immune suppressed, no signs of infection currently, actively treated with chemotherapy Severe protein calorie malnutrition-diet supplement Hypotension secondary to the A-fib RVR, rate control is improved and blood pressures improved Iron deficiency anemia as well as anemia from chemotherapy-monitor daily, down slightly today Diabetes mellitus-Sugar elevated, insulin sliding scale. Elevated liver function test this is likely secondary to the lymphoma, passive congestion secondary to the A-fib RVR is a possibility as well. Hypercholesterolemia-continue with home medications Admission status: Patient with A-fib RVR with significant weakness with amb ulation and dyspnea. Significant hypotension with a mean arterial pressure less than 65. Will see how the day progresses. Initially starting off as observation. If unable to improve later today medically necessary treatment will span 2 midnights and will change patient to inpatient status.
[2024-06-14 11:28] LABS: Glucometer 171 mg/dL (74-106)
[2024-06-14 16:38] LABS: Glucometer 78 mg/dL (74-106)
[2024-06-14 21:33] LABS: Glucometer 138 mg/dL (74-106)
[2024-06-14] MEDS: INSULIN GLARGINE 300 UNIT/3 ML INSULN.PEN 20 UNIT SQ (21:50)
[2024-06-15] VITALS (57 sets, daily range): BP systolic 91–112; BP diastolic 55–79; PULSE 70–141; TEMP 36.3–36.5; O2SAT 94–97
[2024-06-15 05:53] LABS: Basophils Percent Auto 0.3 % (0.2-2.0); Eosinophils Percent Auto 0.7 % (0.9-7.0); Hematocrit 32.7 % (42.0-54.0); Hemoglobin 9.7 g/dL (14.0-18.0); Immature Granulocytes Abs Auto 0.03 10^3/uL (0.00-0.03); Immature Granulocytes Pct Auto 0.5 % (0.0-0.5); Lymphocytes Absolute Auto 0.6 10^3/uL (1.2-3.8); Lymphocytes Percent Auto 10.6 % (20.5-60.0); Mean Corpuscular HGB Conc 29.7 g/dL (29.9-35.2); Mean Corpuscular Hemoglobin 23.1 pg (25.9-34.0); Mean Corpuscular Volume 77.9 fL (80.0-94.0); Mean Platelet Volume 9.4 fL (9.5-13.5); Monocytes Absolute Auto 0.1 10^3/uL (0.3-0.8); Monocytes Percent Auto 1.6 % (1.7-12.0); Neutrophils Percent Auto 86.3 % (43.0-75.0); Platelet Count 297 10^3/uL (150-450); Red Cell Distribution Width 16.6 % (11.0-15.0); White Blood Count 5.8 10^3/uL (4.0-11.0)
[2024-06-15 06:14] LABS: Alanine Aminotransferase 21 U/L (16-63); Albumin Globulin Ratio 0.3; Albumin Level 1.4 g/dL (3.4-5.0); Alkaline Phosphatase 230 U/L (46-116); Anion Gap 9.5; Aspartate Amino Transferase 21 U/L (15-37); BUN Creatinine Ratio 29.9; Bilirubin Total 0.6 mg/dL (0.2-1.0); Calcium 9.1 mg/dL (8.5-10.1); Carbon Dioxide 32.4 mmol/L (21.0-32.0); Chloride 101 mmol/L (98-107); Estimated GFR (African America >60 (>=60 mL/min/1.73m^2); Estimated GFR (Non-African Ame >60 (>=60 mL/min/1.73m^2); Globulin 4.9 g/dL; Glucose 117 mg/dL (74-106); Potassium 3.9 mmol/L (3.5-5.1); Sodium 139 mmol/L (136-145); Total Protein 6.3 g/dL (6.4-8.2)
[2024-06-15] MEDS: ONDANSETRON PF 4 MG/2 ML VIAL IV (07:32)
[2024-06-15 07:37] LABS: Glucometer 121 mg/dL (74-106)
[2024-06-15] MEDS: ENSURE HP 237 ML LIQUID PO (08:40)
[2024-06-15] MEDS: PROSTAT 15 GM PROTEIN/100 CAL 30 ML LIQUID PACKET PO (08:40)
[2024-06-15] MEDS: FAMOTIDINE/PF 20 MG/2 ML VIAL IV (08:42)
[2024-06-15] MEDS: DILTIAZEM HCL 240 MG CAP.ER.24H PO (08:51)
[2024-06-15] MEDS: SITAGLIPTIN PHOSPHATE 50 MG TABLET 100 MG PO (09:05)
[2024-06-15] MEDS: CEFDINIR 300 MG CAPSULE PO (09:06)
[2024-06-15] MEDS: VITS A,C,E/LUTEIN/MINERALS 1 TABLET 1 TAB PO (09:06)
[2024-06-15] MEDS: LIOTHYRONINE SODIUM 5 MCG TABLET 10 MCG PO (09:06)
[2024-06-15] MEDS: ATORVASTATIN CALCIUM 10 MG TABLET PO (09:06)
[2024-06-15] MEDS: APIXABAN 5 MG TABLET PO (09:06)
[2024-06-15] MEDS: METOPROLOL TARTRATE 25 MG TABLET 50 MG PO (09:06)
[2024-06-15] MEDS: METFORMIN HCL 500 MG TAB.ER.24H 1000 MG PO (09:06)
[2024-06-15] MEDS: LOSARTAN POTASSIUM 50 MG TABLET PO (09:06)
--- NOTE | 2024-06-15 10:41 | P.DS_ITS ---
DS: Providers Provider Date of admission: 06/13/24 19:58 Primary care physician: ONEYDA GREEN Consults: 06/13/24 Consult to Dietitian Routine Reason for consultation: not eating, no appetite, recently started chemo tx for lymphoma DS: Diagnosis Discharge Diagnosis (1) Atrial fibrillation: (2) Port-A-Cath in place: (3) Hodgkin lymphoma: Qualifiers: Hodgkin lymphoma type: unspecified type Lymphoma site: unspecified region Qualified Code(s): C81.90 - Hodgkin lymphoma, unspecified, unspecified site (4) Failure to thrive: (5) Back pain: (6) Hypothyroidism: Qualifiers: Hypothyroidism type: acquired Qualified Code(s): E03.9 - Hypothyroidism, unspecified Plan Admission findings: Tachycardia, respiratory distress, significant hypotension with a mean arterial pressure down into the 63, severe protein calorie malnutrition, iron deficiency anemia, elevated liver function test secondary to atrial fibrillation with rapid ventricular response. A-fib with RVR-improving at the time of discharge Lymphoma-continue outpatient management Severe protein calorie malnutrition-diet supplement Hypotension secondary to the A-fib RVR,-improved at the time of discharge Iron deficiency anemia as well as anemia from chemotherapy-stable to time of discharge Diabetes mellitus--stable at the time of discharge Elevated liver function test this is likely secondary to the lymphoma, passive congestion secondary to the A-fib RVR is a possibility as well. Hypercholesterolemia-continue with home medications Admission status: Patient with A-fib RVR with significant weakness with ambulation and dyspnea. Significant hypotension with a mean arterial pressure less than 65. Will see how the day progresses. Initially starting off as observation. If unable to improve later today medically necessary treatment will span 2 midnights and will change patient to inpatient status. ? DS: Summary Hospital Course Hospital Course: Patient was seen earlier in the week and had a Port-A-Cath placed. At the time and noted atrial fibrillation. Uncertain the the events after that. He pres ented to the emergency room with increasing palpitations and found to have atrial fibrillation with rapid ventricular response. Initially given IV bolus of Cardizem in ER without significant success. He was then placed on a Cardizem drip with improvement. He was transitioned over to oral Cardizem and increased dose of his beta-ander. Tried to send him home yesterday but heart rate was still significantly elevated. He was given a fluid bolus this morning, increased to started this MD 240 mg, he feels improved, his heart rate is just below 100. So we will discharge patient to home in improving condition. Medications see list. Follow-up with PCP and continue with care with oncology. Status at Discharge Overall status at discharge: patient is not back to baseline Time Spent with Patient Time attestation: Total time spent providing and/or coordinating discharge services: Time spent: greater than 30 minutes Exam Constitutional Vital Signs, click to edit/add: Last Vital Signs Temp 97.6 F 06/15/24 07:27 Pulse 108 H 06/15/24 10:00 Resp 12 06/15/24 08:11 BP 112/79 06/15/24 07:27 Pulse Ox 97 06/15/24 08:11 O2 Del Method Room Air 06/15/24 07:27 O2 Flow Rate 40 06/13/24 20:53 FiO2 70 06/13/24 20:53 Documenting provider has reviewed patient's vital signs: yes Common normals: no apparent distress [facility] Common normals: normocephalic Chest Common normals: inspection of chest normal and palpation of chest normal Cardio Common normals: irregular rate and irregular rhythm Rate: tachycardic (Improved from previous day) Rhythm: abnormal rhythm GI Common normals: Normal to inspection, nondistended, normoactive bowel sounds present DS: Data Data Completed and Pending Labs on day of discharge: Labs from last 24 hours 06/15/24 06/15/24 06/14/24 07:33 05:38 21:28 WBC 5.8 RBC 4.20 L Hgb 9.7 L Hct 32.7 L MCV 77.9 L MCH 23.1 L MCHC 29.7 L RDW 16.6 H Plt Count 297 MPV 9.4 L Neut % (Auto) 86.3 H Lymph % (Auto) 10.[address] [place] % (Auto) 1.6 L Eos % (Auto) 0.7 L Baso % (Auto) 0.3 Neut # (Auto) 5.0 Lymph # (Auto) 0.[address] [place] # (Auto) 0.1 L Eos # (Auto) 0.0 Baso # (Auto) 0.0 Abs Immat Gran (auto) 0.03 Imm/Tot Granulo (auto) 0.5 Sodium 139 Potassium 3.9 Chloride 101 Carbon Dioxide 32.4 H Anion Gap 9.5 BUN 20.0 H Creatinine 0.67 L Est GFR ( Amer) >60 Est GFR (Non-Af Amer) >60 BUN/Creatinine Ratio 29.9 Glucose 117 H Calcium 9.1 Total Bilirubin 0.6 AST 21 ALT 21 Alkaline Phosphatase 230 H Total Protein 6.3 L Albumin 1.4 L Globulin 4.9 Albumin/Globulin Ratio 0.3 POC Glucose 121 H 138 H 06/14/24 06/14/24 16:26 11:17 WBC RBC Hgb Hct MCV MCH MCHC RDW Plt Count MPV Neut % (Auto) Lymph % (Auto) [place] % (Auto) Eos % (Auto) Baso % (Auto) Neut # (Auto) Lymph # (Auto) [place] # (Auto) Eos # (Auto) Baso # (Auto) Abs Immat Gran (auto) Imm/Tot Granulo (auto) Sodium Potassium Chloride Carbon Dioxide Anion Gap BUN Creatinine Est GFR ( Amer) Est GFR (Non-Af Amer) BUN/Creatinine Ratio Glucose Calcium Total Bilirubin AST ALT Alkaline Phosphatase Total Protein Albumin Globulin Albumin/Globulin Ratio POC Glucose 78 171 H Discharge Plan Discharge Disposition: Home, Self-Care Condition: Good Discharge Medications: New diltiazem HCl 240 mg Capsule,Extended Release 24hr 240 mg PO Q24H Qty: 30 11RF Eliquis 5 mg Tablet 5 mg PO BID Qty: 60 11RF metoprolol tartrate 50 mg tablet 50 mg PO BID Qty: 60 11RF Continued Januvia 100 mg tablet 100 mg PO DAILY metformin 1,000 mg tablet 1,000 mg PO DAILY PreserVision AREDS 4,296 mcg-226 mg-90 mg capsule 1 cap PO DAILY losartan 50 mg tablet 50 mg PO DAILY atorvastatin 10 mg tablet 10 mg PO .qd Glucagon Emergency Kit (human) 1 mg recon soln 1 mg IV PRN liothyronine 5 mcg Tablet 10 mcg PO QD Qty: 60 11RF Ensure Active Protein-Muscle Liquid 1 ea PO BID Qty: 5688 11RF insulin glargine [Lantus Solostar U-100 Insulin] 100 unit/mL (3 mL) insulin pen 20 unit SUBCUT .qhs Qty: 0 0RF cefdinir 300 mg capsule 300 mg PO BID Patient Comments: FILLED 06/10/24 FOR 7 DAYS ondansetron 4 mg tablet,disintegrating 4 mg PO Q6H PRN (Reason: nausea and vomiting) prochlorperazine maleate 10 mg tablet 10 mg PO Q6H PRN (Reason: nausea and vomiting) Discontinued metoprolol tartrate 25 mg tablet 25 mg PO Q12H Activity: increase activity as tolerated and resume usual activities as tolerated Diet: advance to your usual diet Print Language: Albanian Patient Instructions: A-fib (Atrial Fibrillation) (DC) Forms: Portal Instructions Follow Up Appointments: Follow up with Primary care physician Dr Damian in 2-3 days [phone]
[2024-06-15] MEDS: 0.9 % SODIUM CHLORIDE 1,000 ML 500 ML IV (10:58)
[2024-06-15 11:56] LABS: Glucometer 211 mg/dL (74-106)
--- NOTE | 2024-06-15 12:09 | PC.NURSE ---
Assistant Women'S Tennis Coach offered pt assistance with ordering lunch. Pt. declined at this time
[2024-06-15] MEDS: HEPARIN SODIUM (PORCINE) PF LOCK FLUSH 500 UNIT/5 ML SYRINGE IV (15:02)
--- NOTE | 2024-06-17 13:27 | CM.DCFOLLOWU ---
06/17- 1st attempt. No answer
--- NOTE | 2024-06-18 15:00 | CM.DCFOLLOWU ---
06/18- 2nd attempt. No answer
== END 2024-06-15 15:20 | disposition home or self-care (01) | DRG 308 ==
LOC: ER 19:40 → ICU 20:24
PROVIDERS: Physician Assistant; Registered Nurse; Admitting Provider Family Medicine; Emergency Provider Emergency Medicine; PCP Nurse Practitioner Family; Visit Provider Family Medicine
DX: I48.91 Unspecified atrial fibrillation (principal); E43 Unspecified severe protein-calorie malnutrition; C81.18 Nodular sclerosis Hodgkin lymphoma, lymph nodes of multiple sites; C85.11 Unspecified B-cell lymphoma, lymph nodes of head, face, and neck; N13.8 Other obstructive and reflux uropathy; R74.01 Elevation of levels of liver transaminase levels; D50.9 Iron deficiency anemia, unspecified; R11.2 Nausea with vomiting, unspecified; Z95.828 Presence of other vascular implants and grafts; K21.9 Gastro-esophageal reflux disease without esophagitis; E03.9 Hypothyroidism, unspecified; H91.90 Unspecified hearing loss, unspecified ear; F41.9 Anxiety disorder, unspecified; N32.81 Overactive bladder; I10 Essential (primary) hypertension; E11.9 Type 2 diabetes mellitus without complications; N40.1 Benign prostatic hyperplasia with lower urinary tract symptoms; R06.03 Acute respiratory distress; R79.89 Other specified abnormal findings of blood chemistry; I95.9 Hypotension, unspecified; R53.1 Weakness; E78.00 Pure hypercholesterolemia, unspecified; R62.7 Adult failure to thrive; Z68.21 Body mass index [BMI] 21.0-21.9, adult; M19.90 Unspecified osteoarthritis, unspecified site; Z98.890 Other specified postprocedural states; Z90.89 Acquired absence of other organs; Z98.1 Arthrodesis status; Z79.899 Other long term (current) drug therapy; Z79.4 Long term (current) use of insulin; Z79.84 Long term (current) use of oral hypoglycemic drugs; Z86.16 Personal history of COVID-19; Z79.890 Hormone replacement therapy; Z91.81 History of falling
CPT/HCPCS: 36415; 36591; 71045; 80048; 80053; 82948; 83735; 83880; 84484; 85025; 85610; 85730; 93005; 94761; 96360; 96365; 96376; 99285; G0378; J1642; J2405

== ENCOUNTER 2024-07-01 07:35 | Outpatient (RCR) | payer MEDICARE, SELFPAY ==
--- OUTSIDE RECORDS SUMMARY | 2024-06-10 07:39 | XMS_ITS | CCD ---
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 Role Phone PHYSICIAN, DEFAULT Unavailable Unavailable PHYSICIAN, DEFAULT Unavailable Unavailable PHYSICIAN, DEFAULT Unavailable Unavailable PHYSICIAN, DEFAULT Unavailable Unavailable PHYSICIAN, DEFAULT Unavailable Unavailable PHYSICIAN, DEFAULT Unavailable Unavailable UNKNOWN, PROVIDER Unavailable Unavailable UNKNOWN, PROVIDER Unavailable Unavailable YFN MATA Unavailable Unavailable YFN MATA Unavailable Unavailable AILIN BAKER Admitting Unavailable RAYAILIN Attending Unavailable RAY, AILIN Primary Care Unavailable RAY, AILIN Admitting Unavailable RAY, AILIN Attending Unavailable RAY, AILIN Consulting Unavailable RAY, AILIN Primary Care Unavailable AILIN BAKER Attending Unavailable YFN MATA Primary Care Unavailable RAY AILIN Consulting Unavailable RAY, AILIN Admitting Unavailable ILAN TODD Attending Unavailable ILAN TODD Consulting Unavailable ILAN TODD Admitting Unavailable RAY, AILIN Primary Care Unavailable AMARIS WALKER Consulting Unavailable AILIN GREEN Primary Care Physician [phone] JEROD MANUEL Attending Unavailable JEROD MANUEL Attending Unavailable DO González Moon Primary Care Provider MD Hoang Strange Attending Provider MD Jassi Clemens Attending Provider Taco ELLIS, Ailin Unavailable Taco ELLIS, Ailin Unavailable YANNA HERBERT Attending Unavailable MD Sonia Donnelly Attending Provider MEHRDAD Green Primary Care Provider 1( [phone] Jassi CLEMENS Attending Unavailable Moody POP Attending Unavailable AILIN GREEN Referring Unavailable Moody POP Attending Unavailable Jassi CLEMENS Attending Unavailable Jassi CLEMENS Attending Unavailable Jassi CLEMENS Attending Unavailable Jassi CLEMNES Attending Unavailable Moody POP Attending Unavailable Jassi Clemens Attending Unavailable Jassi Clemens Admitting Unavailable González Moon Primary Care Unavailable Hoang Strange Admitting Unavailable Hoang Strange Attending Unavailable Ailin Green Primary Care Unavailable Sonia Donnelly Attending Unavailable Sonia Donnelly Admitting Unavailable Allergies Allergy Classification Reported Allergen(s) Allergy Type Date of Onset Reaction(s) Facility (2 sources) No Known Allergies; 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: [No Known Allergies] Propensity to adverse reactions (disorder) 7 [facility] Repository (1 source) empagliflozin; 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: [EMPAGLIFLOZIN] Drug Allergy 4 [facility] Repository (1 source) No Known Medication Allergies; 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: [No Known Medication Allergies] Propensity to adverse reactions (disorder) [facility] Repository (1 source) Unable to Assess Drug allergy (disorder) [address] [place] [address] Repository Medications Current Medications Medication Drug Class(es) [...] day(s), # 90 cap(s), Refills(s) 3, Pharmacy: [facility], 187, cm, 01/21/24 11:48:00 EDT, Height/Length [...] completed, # 2 tab(s), Refills(s) 0, Pharmacy: [facility], 187, cm, 01/21/24 11:48:00 EDT, Height/Length [...] Onset: 04-30-2024 Episodic Non-Hodgkin`s lymphoma (2 sources) Non-Hodgkin's lymphoma (clinical); 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: [Non-Hodgkin lymphoma, unspecified, 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] Onset: 05-29-2024 05-27-2024 Chronic Other and unspecified [...] / UNK(Unknown) Onset: 2017 Unclassified (1 source) 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; 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] Onset: 2017 Unclassified (3 sources) Patient encounter status 01-21-2024 Viral infection (1 source) COVID-19; 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: [COVID-19] Onset: 12-08-2020 Past or Other Problems Problem Classification Problem Date Documented Da te Episodic/Chronic Other aftercare (1 source) 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 Performed By: #### I SCRE #### [address] MR head/brain wo/w con MR head/brain wo/w con [facility] [place] [address] [place], [place] [id number] MRI Report Signed Patient: Hoang Tran MR#: [id number] : 1955 Acct:[id number] Age/Sex: 68 / M ADM Date: 05/29/24 Loc: MR Room: Type: [facility] Attending Dr: Sonia Donnelly MD Copies to: [...] Alexis Patel M.D.05/29/2024 1:38 PM Dictation Location: [place] [address] Transcribed By: [facility] 05/29/24 1338 Dictated By: Alexis Patel II, MD 05/29/24 1325 Signed By: 05/29/24 1338 Normal [facility] No Panel InformationOrdered By: Sonia Donnelly on 05-29-2024 Bedside Estimated GFR (eGFR) > 60.0 [facility] Whole blood creatinine measu rementOrdered By: Sonia Donnelly on 05-29-2024 Creatinine [Mass/Vol] 0.8 mg/dL Normal 0.6-1.3 [facility] Comment on above: ER/ESD physician is notified/shown all ISTAT results.Critical values may be confirmed by laboratory testing ifdeemed necessary by ER attending doctor. Result Comment: ER/E SD physician is notified/shown all ISTAT results. Critical values may be confirmed by laboratory testing if deemed necessary by ER attending doctor. Performed By: #### I SCRE #### [address] XR pre/post mri xrayon 05-29 XR pre/post mri xray [facility] [place] [address] [place] [address] MRI Report Signed Patient: Hoang Tran MR#: [id number] : 1955 Acct:[id number] Age/Sex: 68 / M ADM Date: 05/29/24 Loc: MR Room: Type: [facility] Attending Dr: Sonia Donnelly MD Copies to: Sonia Donnelly MD Ordering Provider: Sonia Donnelly MD Date of Service: 05/29/24 MR/MR cervical spine wo/w con: C85.90, C85.94, C85.11 ([id number]) XR/XR pre/post mri xray: C85.90, C85.94, C85.11 [...] Alexis Patel M.D.05/29/2024 1:00 PM Dictation Location: [place] [address] Transcribed By: [facility] 05/29/24 1300 Dictated By: Alexis Patel II, MD 05/29/24 1254 Signed By: 05/29/24 1300 Normal [facility] Ambulatory Visit Summaryon 0 04-30-2024 [...] ELLIS, Moody Aranda Where: [facility] [address] [address]- Medications What How Much When Instructions Unchanged [...] choosing us for your care. Normal [facility] General Surgery Office/Clini c Noteon 04-30-2024 General Surgery Office/Clinic Note General Surgery Office/Clinic Note Chief Complaint post operative follow up HPI Staff 7 day post operative follow up post incisional biopsy right axilla adenopathy completed while inpatient at [facility]. Denies soreness, bleeding or drainage. History [...] 04/30/2024 Family History Heart disease: Mother. Normal [facility] Comment on above: Result Comment: Elec tronically Signed By: AIRAM ELLIS, Jassi Nazario.br\Date and Time Signed: 04/30/24 14:51 EDT Robert 04-23-2024 L Specimen: [id number] R eceived: 04/23/24 Status: [facility] Rivera Num: [id number] Spec Type: Surgical Subm Dr: Jassi Clemens MD FACS Tissues: A Lymph Node - Biopsy (Needle or Incisional) (R AXILLARY LYMPH NODE BX) Procedures: CD45/2, HE/4, Gross/Micro L4, AE1-AE3, BCL-2, BCL-6, CD10, CD20, CD23, CD3, CD30/2, CD5, PAX5/2 Age/ Patient Sex Location Account Attending Physician Hoang Tran 68/M LABELL [id number] Jassi Clemens MD FACS SPEC NUM: [id number] RECD: 04/23/24 STATUS: [facility] RIVERA NUM: [id number] RANJITH: 04/23/24-[address]: Jassi Clemens MD FACS ENTERED: 04/23/[address] [facility] [address]: SPEC TYPE: Surgical DEPT: LUANA MOYER ENTERED BY: [id number] RECV BY: [id number] ORDERED: CD45/2, HE/4, Gross/Micro L4, AE1-AE3, BCL-2, BCL-6, CD10, CD20, CD23, CD3, CD30/2, CD5, PAX5/2 ORDERED: CD45/2, HE/4, Gross/Micro L4, AE1-AE3, BCL-2, BCL-6, CD10, CD20, CD23, CD3, CD30/2, CD5, PAX5/2, USS/7 Supplemental Report Addendum 3 Entered: 05/15/24-1014 Supplemental for addended consultation report from [facility] Addendum -Repeat MUM1 immunostain does in fact stain the focal large atypical cells -No change in final diagnosis Addendum Signed (signature on file) Chin-Gama Lauren MD 05/15/24 1014 -- Addendum 2 Entered: 05/14/24546 Supplemental for findings of consultation report from [facility]: -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 -- Specimen: [id number] Received: 04/23/24 Status: [facility] Rivera Num: [id number] Spec Type: Surgical Subm Dr: Jassi Clemens MD FACS Tissues: A Lymph Node - Biopsy (Needle or Incisional) (R AXILLARY LYMPH NODE BX) Procedures: CD45/2, HE/4, Gross/Micro L4, AE1-AE3, BCL-2, BCL-6, CD10, CD20, CD23, CD3, CD30/2, CD5, PAX5/2 -- Patient: Hoang Tran [id number] (Continued) -- Specimen: [id number] Received: 04/23/24 (Continued) Supplemental Report (Continued) Signed (signature on file) Chin-Gama Lauren MD 05/01/241650 -- Specimen: [id number] Received: 04/23/24 Status: [facility] Rivera Num: [id number] Spec Type: Surgical Subm Dr: Jassi Clemens MD FACS Tissues: A Lymph Node - Biopsy (Needle or Incisional) (R AXILLARY LYMPH NODE BX) Procedures: CD45/2, HE/4, Gross/Micro L4, AE1-AE3, BCL-2, BCL-6, CD10, CD20, CD23, CD3, CD30/2, CD5, PAX5/2 -- Patient: Hoang Tran [id number] (Continued) -- Specimen: [id number] Received: 04/23/24 (Continued) Supplemental Report (Continued) lymphocytes -See comment Addendum Signed (signature on file)Kavon Lauren MD 05/14/24 1437 -- Addendum 1 Entered: 05/07/24 Supplemental for findings of Flow Cytometry report from [facility] -No significant lymphoid immunophenotypic abnormalities detected [...] lymphoid (more content not included)... Normal [facility] Robert 04-11-2024 L Specimen: [id number] R eceived: 04/14/24 Status: [facility] Re Num: [id number] Spec Type: Surgical Subm Dr: Hoang Strange MD Tissues: A Lymph Node - Biopsy (Needle or Incisional) (R AXILLA LYMPH NODE) B Gross Only (LYMPH NODE) Procedures: HE/2, Gross/Micro L4, Level 1 Gross Age/ Patient Sex Location Account Attending Physician Hoang Tran 68/M LABELL [id number] Hoang Strange MD SPEC NUM: [id number] RECD: 04/14/24 STATUS: [facility] RE NUM: [id number] RANJITH: 04/11/24- SUBM DR: Hoang Strange MD ENTERED: 04/14/[address] [facility] [address]: Gregg Flores SPEC TYPE: Surgical DEPT: LUANA MOYER ENTERED BY: [id number] RECV BY: [id number] ORDERED: HE/2, Gross/Micro L4, Level 1 Gross ORDERED: HE/2, Gross/Micro L4, Level 1 Gross Supplemental Report Addendum 2 Entered: 04/21/246 Supplemental for findings of consultation report from [facility]: A, -Extremity limited specimen compatible with malignancy, see comment Addendum Signed (signature on file) Trinity Lauren MD 04/21/24 1307 -- Addendum 1 Entered: 04/18/24-1178 Supplemental for findings of flow cytometry report from [facility]: -Tests canceled -This test is canceled due to poor sample quality / poor viability -- Specimen: [id number] Received: 04/14/24-1044 Status: [facility] Rivera Num: [id number] Spec Type: Surgical Subm Dr: Hoang Strange MD Tissues: A Lymph Node - Biopsy (Needle or Incisional) (R AXILLA LYMPH NODE) B Gross Only (LYMPH NODE) Procedures: HE/2, Gross/Micro L4, Level 1 Gross -- Patient: Hoang Tran [id number] (Continued) -- Specimen: [id number] Received: 04/14/24 (Continued) Supplemental Report (Continued) Signed (signature on file) Trinity Lauren MD 04/17/24 1127 -- Specimen: [id number] Received: 04/14/24 Status: [facility] Num: [id number] Spec Type: Surgical Subm Dr: Hoang Strange MD Tissues: A Lymph Node - Biopsy (Needle or Incisional) (R AXILLA LYMPH NODE) B Gross Only (LYMPH NODE) Procedures: HE/2, Gross/Micro L4, Level 1 Gross -- Patient: Hoang Tran [id number] (Continued) -- Specimen: [id number] Received: 04/14/24-1045 (Continued) Supplemental Report (Continued) Addendum [...] to an outside facility. DM -- Specimen: [id number] Received: 04/14/24 Status: [facility] Rivera Num: [id number] Spec Type: Surgical Subm Dr: Hoang Strange MD Tissues: A Lymph Node - Biopsy (Needle or Incisio (more content not included)... Normal [facility] Office Visiton 03-28-2024 Follow-up visit [id number] Allen Tran W 1955 M Date Provider Department Center 03/28/2024 JEROD BANKS Family History Problem Relation Age of Onset Coronary artery disease Mother Family Status - Relation Status Age at Mother Level of Service:08825 NE OFFICE/OUTPATIENT ESTABLISHED MOD MDM 30 MIN Normal [facility] Office Visiton 02-25-2024 Follow-up visit [id number] Allen Tran W 1955 M Date Provider Department Center 02/25/2024 JEROD BANKS Family History Problem Relation Age of Onset Coronary artery disease Mother Family Status - Relation Status Age at Mother Level of Service:02662 NE OFFICE/OUTPATIENT NEW MODERATE MDM 45 MINUTES Normal [facility] Insurance Correspondenceon 0 01-30-2024 Insurance Correspondence [id number]#1.00TIFF Normal [facility] Consent for Procedure/Surger yon 01-22-2024 Consent for Procedure/Surgery [id number]#1.00TIFF Normal [facility] Physician Referralon 024 Physician Referral [id number]#1.00TIFF Normal [facility] Screenson 01-22-2024 Screens [id number]#1.00TIFF Normal [facility] Ambulatory Visit Summaryon 0 01-21-2024 Ambulatory [...] When: Where: [facility] [address], [place] [address]- Medications What When Instructions Unchanged amlodipine (amLODIPine [...] urine (ur (more content not included)... Normal [facility] Patient Educationon 01-21-20 Patient Education [...] Follow these instructions at home: ? Take ldld-zjq-kcpquzn and prescription medicines only as told by [...] the medicine (more content not included)... Normal [facility] INSULINon 08-27-2021 Insulin 19.2 uIU/mL Normal 2.6-24.9 [facility] Comment on above: Performed By: #### I NSULIN #### [facility] [address] [place] [address] Dr. Forrest Lauren CBC AUTO DIFFon 08-26-2021 BASO # 0.1 103/ul Normal 0.0-0.1 [facility] Comment on above: Performed By: #### P SASC #### [facility] [address] [place] [address] Dr. Forrest Lauren Basophils/100 WBC (Bld) 0.8 % Normal 0.2-2.0 [facility] Comment on above: Performed By: #### P SASC #### [facility] [address] [place] [address] [address] Forrest Lauren EO # 0.4 103/ul Normal 0.0-0.7 [facility] Comment on above: Performed By: #### P SASC #### [facility] [address] [place] [address] Dr. Forrest Lauren Eosinophils/100 WBC (Bld) 4.8 % Normal 0.9-7.0 [facility] Comment on above: Performed By: #### P SASC #### [facility] [address] [place] [address] Dr. Forrest Lauren Erythrocyte distribution width (RBC) [Ratio] 12.7 % Normal 11.0-15.0 [facility] Comment on above: Performed By: #### P SASC #### [facility] [address] [place] [address] Dr. Forrest Lauren Hematocrit (Bld) [Volume fraction] 48.3 % Normal 42.0-54.0 [facility] Comment on above: Performed By: #### P SASC #### [facility] [address] [place] [address] Dr. Forrest Lauren Hemoglobin (Bld) [Mass/Vol] 16.4 g/dL Normal 14.0-18.0 [facility] Comment on above: Performed By: #### P SASC #### [facility] [address] [place] [address] Dr. Forrest Lauren IG # 0.05 10e3/ul Critically high 0.00-0.03 [facility] Comment on above: Performed By: #### P SASC #### [facility] [address] [place] [address] Dr. Forrest Lauren IG % 0.6 % Critically high 0.0-0.5 [facility] Comment on above: Performed By: #### P SASC #### [facility] [address] [place] [address] Dr. Forrest Lauren LYMPH # 2.0 103/ul Normal 1.2-3.8 [facility] Comment on above: Performed By: #### P SASC #### [facility] [address] [place] [address] Dr. Forrest Lauren Lymphocytes/100 WBC (Bld) 22.6 % Normal 20.5-60.0 [facility] Comment on above: Performed By: #### P SASC #### [facility] [address] [place] [address] Dr. Forrest Lauren MANUAL DIFF REQ NO Normal [facility] Comment on above: Performed By: #### P SASC #### [facility] [address] [place] [address] Dr. Forrest Lauren MCH (RBC) [Entitic mass] 29.8 pg Normal 25.9-34.0 [facility] Comment on above: Performed By: #### P SASC #### [facility] [address] [place] [address] Dr. Forrest Lauren MCHC (RBC) [Mass/Vol] 34.0 g/dL Normal 29.9-35.2 [facility] Comment on above: Performed By: #### P SASC #### [facility] [address] [place] [address] [address] Forrest Lauren MCV (RBC) [Entitic vol] 87.8 fL Normal 80.0-94.0 [facility] Comment on above: Performed By: #### P SASC #### [facility] [address] [place] [address] [address] Forrest Lauren MONO # 0.7 103/ul Normal 0.3-0.8 [facility] Comment on above: Performed By: #### P SASC #### [facility] [address] [place] [address] [address] Forrest Lauren Monocytes/100 WBC (Bld) 8.0 % Normal 1.7-12.0 [facility] Comment on above: Performed By: #### P SASC #### [facility] [address] [place] [address] [address] Forrest Lauren NEUT # 5.7 103/ul Normal 1.4-6.5 [facility] Comment on above: Performed By: #### P SASC #### [facility] [address] [place] [address] [address] Forrest Lauren Neutrophils/100 WBC (Bld) 63.2 % Normal 43.0-75.0 [facility] Comment on above: Performed By: #### P SASC #### [facility] [address] [place] [address] [address] Forrest Lauren Platelet mean volume (Bld) [Entitic vol] 9.7 fL Normal 9.5-13.5 [facility] Comment on above: Performed By: #### P SASC #### [facility] [address] [place] [address] [address] Forrest Lauren PLT 242 103/ul Normal 150-450 [facility] Comment on above: Performed By: #### P SASC #### [facility] [address] [place] [address] [address] Forrest Lauren RBC 5.50 106/ul Normal 4.70-6.10 [facility] Comment on above: Performed By: #### P SASC #### [facility] [address] [place] [address] [address] Forrest Lauren WBC 9.0 103/ul Normal 4.0-11.0 [facility] Comment on above: Performed By: #### P SASC #### [facility] [address] [place] [address] Dr. Forrest Lauren GLYCOHEMOGLOBIN A1Con 2021 ADA RECOMMENDATION ADA THERAPEUTIC TARG ET 6.0 - 7.0 ACTION SUGGESTED > 7.0 Normal [facility] Comment on above: Performed By: #### A 1C #### [facility] [address] [place] [address] Dr. Forrest Lauren Glucose [Mass/Vol] 194 mg/dL Normal [facility] Comment on above: Performed By: #### A 1C #### [facility] [address] [place] [address] Dr. Forrest Lauren HbA1c (Bld) [Mass fraction] 8.4 % Critically high <=6.0 [facility] Comment on above: Performed By: #### A 1C #### [facility] [address] [place] [address] Dr. Forrest Lauren LIPID PROFILEon 08-26-2021 CHOL-HDL RATIO NORM SEE BELOW Normal [facility] Comment on above: Result Comment: 3.3 - 4.4 LOW RISK 4.4 - 7.1 AVERAGE RISK 7.1 - 11.0 MODERATE RISK >11.0 HIGH RISK Performed By: #### P SASC #### [facility] [address] [place] [address] Dr. Forrest Lauren Cholesterol [Mass/Vol] 117 mg/dL Normal <=200 [facility] Comment on above: Performed By: #### P SASC #### [facility] [address] [place] [address] [address] Forrest Lauren Cholesterol in HDL [Mass/Vol] 43 mg/dL Normal [facility] Comment on above: Performed By: #### P SASC #### [facility] [address] [place] [address] Dr. Forrest Lauren Cholesterol in LDL [Mass/Vol] 45.6 mg/dL Normal [facility] Comment on above: Performed By: #### P SASC #### [facility] [address] [place] [address] [address] Forrest Lauren Cholesterol.total/C holesterol in HDL [Mass ratio] 2.7 {ratio} Normal [facility] Comment on above: Performed By: #### P SASC #### [facility] [address] [place] [address] [address] Forrest Lauren HDL NORMAL > or = 60 mg/dl - LO W CARDIOVASCULAR RISK <40 mg/dl - HIGH CARDIOVASCULAR RISK Normal [facility] Comment on above: Performed By: #### P SASC #### [facility] [address] [place] [address] [address] Forrest Lauren LDL CALC NORMAL SEE BELOW Normal [facility] Comment on above: Result Comment: <100 mg/dl OPTIMAL 100 - 129 mg/dl NEAR OR ABOVE OPTIMAL 130 - 159 mg/dl BORDERLINE HIGH 160 - 189 mg/dl HIGH >190 mg/dl VERY HIGH Performed By: #### P SASC #### [facility] [address] [place] [address] [address] Forrest Lauren Triglyceride [Mass/Vol] 142 mg/dL Normal <=150 [facility] Comment on above: Performed By: #### P SASC #### [facility] [address] [place] [address] Dr. Forrest Lauren VLDL CALC 28.4 mg/dL Normal [facility] Comment on above: Performed By: #### P SASC #### [facility] [address] [place] [address] [address] Forrest Lauren PROF 14(COMP METB)on 022 Albumin [Mass/Vol] 4.1 g/dL Normal 3.5-5.0 [facility] Comment on above: Performed By: #### P SASC #### [facility] [address] [place] [address] Dr. Forrest Luaren Albumin/Globulin [Mass ratio] 1.2 {ratio} Normal [facility] Comment on above: Performed By: #### P SASC #### [facility] [address] [place] [address] Dr. Forrest Lauren ALP [Catalytic activity/Vol] 82 U/L Normal 38-126 [facility] Comment on above: Performed By: #### P SASC #### [facility] [address] [place] [address] [address] Forrest Lauren ALT [Catalytic activity/Vol] 38 U/L Normal 21-72 [facility] Comment on above: Performed By: #### P SASC #### [facility] [address] [place] [address] [address] Forrest Lauren Anion gap [Moles/Vol] 12.7 mmol/L Normal [facility] Comment on above: Performed By: #### P SASC #### [facility] [address] [place] [address] [address] Forrest Lauren AST [Catalytic activity/Vol] 18 U/L Normal 17-59 [facility] Comment on above: Performed By: #### P SASC #### [facility] [address] [place] [address] [address] Forrest Lauren Bilirubin [Mass/Vol] 1.2 mg/dL Normal 0.2-1.3 [facility] Comment on above: Performed By: #### P SASC #### [facility] [address] [address] [address] Forrest Lauren Calcium [Mass/Vol] 9.7 mg/dL Normal 8.4-10.2 [facility] [facility] Comment [facility] above: Performed By: #### P SASC #### [facility] [address] [address] [address] Forrest Lauren Chloride [Moles/Vol] 102 mmol/L Normal 98-107 [facility] Comment on above: Performed By: #### P SASC #### [facility] [address] [address] [address] Forrest Lauren CO2 [Moles/Vol] 30.6 mmol/L Critically high 22.0-30.0 [facility] Comment on above: Performed By: #### P SASC #### [facility] [address] [address] [address] Forrest Lauren Creatinine [Mass/Vol] 1.09 mg/dL Normal 0.66-1.25 [facility] Comment on above: Performed By: #### P SASC #### [facility] [address] [address] [address] Forrest Lauren EGFR-AF MOZAMBICAN >60 Normal >=60 [facility] Comment on above: Performed By: #### P SASC #### [facility] [address] [address] [address] Forrest Lauren EGFR-NON AF MOZAMBICAN >60 Normal >=60 [facility] Comment on above: Performed By: #### P SASC #### [facility] [address] [address] [address] Forrest Lauren Globulin (S) [Mass/Vol] 3.4 g/dL Normal [facility] Comment on above: Performed By: #### P SASC #### [facility] [address] [address] [address] Forrest Lauren Glucose [Mass/Vol] 238 mg/dL Critically high 74-106 [facility] Comment on above: Performed By: #### P SASC #### [facility] [address] [address] [address] Forrest Lauren Potassium [Moles/Vol] 4.3 mmol/L Normal 3.4-5.0 [facility] Comment on above: Performed By: #### P SASC #### [facility] [address] [address] [address] Forrest Lauren Protein [Mass/Vol] 7.5 g/dL Normal 6.1-8.2 [facility] Comment on above: Performed By: #### P SASC #### [facility] [address] [address] [address] Forrest Lauren Sodium [Moles/Vol] 141 mmol/L Normal 137-145 [facility] Comment on above: Performed By: #### P SASC #### [facility] [address] [address] [address] Forrest Lauren Urea nitrogen [Mass/Vol] 20.0 mg/dL Normal 9.0-20.0 [facility] Comment on above: Performed By: #### P SASC #### [facility] [address] [address] [address] Forrest Lauren Urea nitrogen/Creatinine [Mass ratio] 18.3 mg/mg Normal [facility] Comment on above: Performed By: #### P SASC #### [facility] [address] [address] [address] Forrest Lauren URIC ACID SERUMon 08-26-2021 Urate [Mass/Vol] 4.8 mg/dL Normal 3.5-8.5 [facility] Comment on above: Performed By: #### P SASC #### [facility] [address] [place] [address] Dr. Forrest Lauren Covid-[facility] ([facility]on Sample Type Test performed using RT-PCR from a nasopharyngeal collected specimen. Normal [facility] Comment on above: Performed By: #### P SASC #### [facility] [address] [place] [address] Dr. Forrest Lauren SARS-CoV-2 (COVID-19) RNA MERA+probe [...] for this test is supported by the Package Pick Up of Health and Human Service's (HHS's) declaration [...] P SASC #### [facility] [address] [place] [address] Dr. Forrest Lauren POINT OF CARE GLUCOSEon Glucose [Mass/Vol] 255 mg/dL Critically high 74-106 [facility] Comment on above: Performed By: #### P OCGLUC #### [facility] [address] [place], [place] [id number] Matias Evelyn XR CHEST 1 Von 12-07-2020 [...] P SASC #### [facility] [address] [place] [address] Dr. Forrest Lauren CBC AUTO DIFFon 10-01-2020 BASO # 0.1 103/ul Normal 0.0-0.1 [facility] Comment on above: Performed By: #### C BC #### [facility] [address] [place] [address] Matias Evelyn Basophils/100 WBC (Bld) 0.6 % Normal 0.2-2.0 [facility] Comment on above: Performed By: #### C BC #### [facility] [address] [place] [address] Matias Evelyn EO # 0.4 103/ul Normal 0.0-0.7 [facility] Comment on above: Performed By: #### C BC #### [facility] [address] [place] [address] Matias Evelyn Eosinophils/100 WBC (Bld) 4.2 % Normal 0.9-7.0 [facility] Comment on above: Performed By: #### C BC #### [facility] [address] [place] [address] Matias Rivas Erythrocyte distribution width (RBC) [Ratio] 13.1 % Normal 11.0-15.0 [facility] Comment on above: Performed By: #### C BC #### [facility] [address] [place] [address] Matias Rivas Hematocrit (Bld) [Volume fraction] 50.2 % Normal 42.0-54.0 [facility] Comment on above: Performed By: #### C BC #### [facility] [address] [place] [address] Matias Rivas Hemoglobin (Bld) [Mass/Vol] 16.6 g/dL Normal 14.0-18.0 [facility] Comment on above: Performed By: #### C BC #### [facility] [address] [place] [address] Matias Evelyn IG # 0.05 10e3/ul Critically high 0.00-0.03 [facility] Comment on above: Performed By: #### C BC #### [facility] [address] [place] [address] Matias Evelyn IG % 0.6 % Critically high 0.0-0.5 [facility] Comment on above: Performed By: #### C BC #### [facility] [address] [place] [address] Matias Evelyn LYMPH # 1.9 103/ul Normal 1.2-3.8 [facility] Comment on above: Performed By: #### C BC #### [facility] [address] [place] [address] Matias Rivas Lymphocytes/100 WBC (Bld) 22.2 % Normal 20.5-60.0 [facility] Comment on above: Performed By: #### C BC #### [facility] [address] [place] [address] Matias Rivas MANUAL DIFF REQ NO Normal [facility] Comment on above: Performed By: #### C BC #### [facility] [address] [place] [address] Matias Rivas MCH (RBC) [Entitic mass] 29.4 pg Normal 25.9-34.0 [facility] Comment on above: Performed By: #### C BC #### [facility] [address] [place], [place] [id number] Matias Rivas MCHC (RBC) [Mass/Vol] 33.1 g/dL Normal 29.9-35.2 [facility] Comment on above: Performed By: #### C BC #### [facility] [address] [place], [place] [id number] Matias Rivas MCV (RBC) [Entitic vol] 88.8 fL Normal 80.0-94.0 [facility] Comment on above: Performed By: #### C BC #### [facility] [address] [place], [place] [id number] Matias Rivas MONO # 0.7 103/ul Normal 0.3-0.8 [facility] Comment on above: Performed By: #### C BC #### [facility] [address] [place], [place] [id number] Matias Rodasen Monocytes/100 WBC (Bld) 7.7 % Normal 1.7-12.0 [facility] Comment on above: Performed By: #### C BC #### [facility] [address] [place], [place] [id number] Matias Rivas NEUT # 5.7 103/ul Normal 1.4-6.5 [facility] Comment on above: Performed By: #### C BC #### [facility] [address] [place], [place] [id number] Matiaswali Rivas Neutrophils/100 WBC (Bld) 64.7 % Normal 43.0-75.0 [facility] Comment on above: Performed By: #### C BC #### [facility] [address] [place], [place] [id number] Matiaswali Rivas Platelet mean volume (Bld) [Entitic vol] 10.4 fL Normal 9.5-13.5 [facility] Comment on above: Performed By: #### C BC #### [facility] [address] [place], [place] [id number] Matias Evelyn PLT 243 103/ul Normal 150-450 [facility] Comment on above: Performed By: #### C BC #### [facility] [address] [id number] Matias Evelyn RBC 5.65 106/ul Normal 4.70-6.10 [facility] Comment on above: Performed By: #### C BC #### [facility] [address] [address] Matias Evelyn WBC 8.7 103/ul Normal 4.0-11.0 [facility] Comment on above: Performed By: #### C BC #### [facility] [address] [address] Matias Rivas FREE THYROXINE INDEX T7on FTI 2.11 Normal [facility] Comment on above: Performed By: #### U TARIK, CMP, T7, PSASC, TSH, LIPID #### [facility] [address] [address] Matiaswali Rodasen T3U 34.0 % Normal 23.5-40.5 [facility] Comment on above: Performed By: #### U TARIK, CMP, T7, PSASC, TSH, LIPID #### [facility] [address] [id number] Matiaswali Rivas T4 [Mass/Vol] 6.20 ug/dL Normal 5.53-11.00 [facility] Comment on above: Performed By: #### U TARIK, CMP, T7, PSASC, TSH, LIPID #### [facility] [address] [id number] Matias Rivas GLYCOHEMOGLOBIN A1Con 2020 ADA RECOMMENDATION ADA THERAPEUTIC TARG ET 6.0 - 7.0 ACTION SUGGESTED > 7.0 Normal [facility] Comment on above: Performed By: #### A 1C #### [facility] [address] [place], [place] [id number] Matias Evelyn Glucose [Mass/Vol] 266 mg/dL Normal [facility] Comment on above: Performed By: #### A 1C #### [facility] [address] [id number] Matias Evelyn HbA1c (Bld) [Mass fraction] 10.9 % Critically high <=6.0 [facility] Comment on above: Performed By: #### A 1C #### [facility] [address] [address] Matias Rivas LIPID PROFILEon 10-01-2020 CHOL-HDL RATIO NORM SEE BELOW Normal [facility] Comment on above: Result Comment: 3.3 - 4.4 LOW RISK 4.4 - 7.1 AVERAGE RISK 7.1 - 11.0 MODERATE RISK >11.0 HIGH RISK Performed By: #### P SASC #### [facility] [address] [address] [address] Forrest Lauren Cholesterol [Mass/Vol] 110 mg/dL Normal <=200 [facility] Comment on above: Performed By: #### P SASC #### [facility] [address] [address] [address] Forrest Lauren Cholesterol in HDL [Mass/Vol] 36 mg/dL Normal [facility] Comment on above: Performed By: #### P SASC #### [facility] [address] [address] [address] Forrest Lauren Cholesterol in LDL [Mass/Vol] 36.2 mg/dL Normal [facility] Comment on above: Performed By: #### P SASC #### [facility] [address] [address] [address] Forrest Lauren Cholesterol.total/C holesterol in HDL [Mass ratio] 3.1 {ratio} Normal [facility] Comment on above: Performed By: #### P SASC #### [facility] [address] [address] [address] Forrest Lauren HDL NORMAL > or = 60 mg/dl - LO W CARDIOVASCULAR RISK <40 mg/dl - HIGH CARDIOVASCULAR RISK Normal [facility] Comment on above: Performed By: #### P SASC #### [facility] [address] [place] [address] Dr. Forrest Lauren LDL CALC NORMAL SEE BELOW Normal [facility] Comment on above: Result Comment: <100 mg/dl OPTIMAL 100 - 129 mg/dl NEAR OR ABOVE OPTIMAL 130 - 159 mg/dl BORDERLINE HIGH 160 - 189 mg/dl HIGH >190 mg/dl VERY HIGH Performed By: #### P SASC #### [facility] [address] [address] [address] Forrest Lauren Triglyceride [Mass/Vol] 189 mg/dL Critically high <=150 [facility] Comment on above: Performed By: #### P SASC #### [facility] [address] [address] [address] Forrest Lauren VLDL CALC 37.8 mg/dL Normal [facility] Comment on above: Performed By: #### P SASC #### [facility] [address] [address] [address] Forrest Lauren PROF 14(COMP METB)on 021 Albumin [Mass/Vol] 4.1 g/dL Normal 3.5-5.0 [facility] Comment on above: Performed By: #### U TARIK, CMP, T7, PSASC, TSH, LIPID #### [facility] [address] [place] [address] Matias Rivas Albumin/Globulin [Mass ratio] 1.2 {ratio} Normal [facility] Comment on above: Performed By: #### U TARIK, CMP, T7, PSASC, TSH, LIPID #### [facility] [address] [place] [address] Amtias Evelyn ALP [Catalytic activity/Vol] 80 U/L Normal 38-126 [facility] Comment on above: Performed By: #### U TARIK, CMP, T7, PSASC, TSH, LIPID #### [facility] [address] [address] Matias Evelyn ALT [Catalytic activity/Vol] 42 U/L Normal 21-72 [facility] Comment on above: Performed By: #### U TARIK, CMP, T7, PSASC, TSH, LIPID #### [facility] [address] [place] [address] Matias Rivas Anion gap [Moles/Vol] 12.3 mmol/L Normal [facility] Comment on above: Performed By: #### U TARIK, CMP, T7, PSASC, TSH, LIPID #### [facility] [address] [address] Matias Evelyn AST [Catalytic activity/Vol] 24 U/L Normal 17-59 [facility] Comment on above: Performed By: #### U TARIK, CMP, T7, PSASC, TSH, LIPID #### [facility] [address] [address] Matias Evelyn Bilirubin [Mass/Vol] 1.3 mg/dL Normal 0.2-1.3 [facility] Comment on above: Performed By: #### U TARIK, CMP, T7, PSASC, TSH, LIPID #### [facility] [address] [place] [address] Matias Evelyn Calcium [Mass/Vol] 9.3 mg/dL Normal 8.4-10.2 [facility] Comment on above: Performed By: #### U TARIK, CMP, T7, PSASC, TSH, LIPID #### [facility] [address] [place] [address] Matias Evelyn Chloride [Moles/Vol] 103 mmol/L Normal 98-107 [facility] Comment on above: Performed By: #### U TARIK, CMP, T7, PSASC, TSH, LIPID #### [facility] [address] [place] [address] Matias Evelyn CO2 [Moles/Vol] 30.0 mmol/L Normal 22.0-30.0 [facility] Comment on above: Performed By: #### U TARIK, CMP, T7, PSASC, TSH, LIPID #### [facility] [address] [place] [address] Matias Evelyn Creatinine [Mass/Vol] 1.20 mg/dL Normal 0.66-1.25 [facility] Comment on above: Performed By: #### U TARIK, CMP, T7, PSASC, TSH, LIPID #### [facility] [address] [place] [address] Matias Evelyn EGFR-AF MOZAMBICAN >60 Normal >=60 [facility] Comment on above: Performed By: #### U TARIK, CMP, T7, PSASC, TSH, LIPID #### [facility] [address] [place] [address] Matias Evelyn EGFR-NON AF MOZAMBICAN >60 Normal >=60 [facility] Comment on above: Performed By: #### U TARIK, CMP, T7, PSASC, TSH, LIPID #### [facility] [address] [address] Matias Evelyn Globulin (S) [Mass/Vol] 3.5 g/dL Normal [facility] Comment on above: Performed By: #### U TARIK, CMP, T7, PSASC, TSH, LIPID #### [facility] [address] [address] Matias Evelyn Glucose [Mass/Vol] 269 mg/dL Critically high 74-106 T [facility] Comment on above: Performed By: #### U TARIK, CMP, T7, PSASC, TSH, LIPID #### [facility] [address] [address] Matias Evelyn Potassium [Moles/Vol] 4.3 mmol/L Normal 3.4-5.0 [facility] Comment on above: Performed By: #### U TARIK, CMP, T7, PSASC, TSH, LIPID #### [facility] [address] [address] Matias Evelyn Protein [Mass/Vol] 7.6 g/dL Normal 6.1-8.2 [facility] Comment on above: Performed By: #### U TARIK, CMP, T7, PSASC, TSH, LIPID #### [facility] [address] [address] Matias Evelyn Sodium [Moles/Vol] 141 mmol/L Normal 137-145 [facility] Comment on above: Performed By: #### U TARIK, CMP, T7, PSASC, TSH, LIPID #### [facility] [address] [address] Matias Evelyn Urea nitrogen [Mass/Vol] 17.0 mg/dL Normal 9.0-20.0 [facility] Comment on above: Performed By: #### U TARIK, CMP, T7, PSASC, TSH, LIPID #### [facility] [address] [address] Matias Evelyn Urea nitrogen/Creatinine [Mass ratio] 14.2 mg/mg Normal [facility] Comment on above: Performed By: #### U TARIK, CMP, T7, PSASC, TSH, LIPID #### [facility] [address] [place], [place] [address] Matias Rivas TSHon 10-01-2020 TSH 1.574 uIU/mL Normal 0.470-4.68 0 [facility] Comment on above: Performed By: #### P SASC #### [facility] [address] [place], [place] [address] Dr. Forrest Lauren TSH RANGE SEE BELOW Normal [facility] Comment on above: Result Comment: <0.3 4 UIU/ml HYPERTHYROID 0.34-5.60 UIU/ml EUTHYROID >5.60 UIU/ml HYPOTHYROID Performed By: #### P SASC #### [facility] [address] [place], [place] [address] Dr. Forrest Lauren URIC ACID SERUMon 10-01-2020 Urate [Mass/Vol] 4.8 mg/dL Normal 3.5-8.5 [facility] Comment on above: Performed By: #### P SASC #### [facility] [id number] Forrest Lauren Cardiovascular Lab Reporton 08-03-2017 Cardiovascular Lab Report [facility]: [id number] Physician: Jerod Miller M.D.Medicine Service Date: 2017Division of Birthdate: 6Cardiology Room #: [facility] [id number] [place], [place] [address]Brdxr Fax Cardiovascular Laboratory ReportINDICATION: Hoang Tran is [...] the right internal jugular vein and a 6-Beninese x 11cm sheath was placed. A 6-Beninese Griffith catheter was used for right heartcatheterization with measurement of pressures and calculation of cardiacoutput using the estimated Luke method. Griffith catheter was removed.Using ultrasound guidance and micropuncture technique, access was obtainedin the left radial artery and a 6-Beninese x 11 cm Hydrophilic sheath wasadvanced. Verapamil [...] 08/02/2017/02:42 P/Jerod Manuel M.D.Date Trans: 08/03/2017 11:29 [id number]: Yfn Mata D.O. [address] [place] [id number] [facility] Vital Signs Date Time Vital Sign Value Performing Clinician Faci litdustin 06-03-2024 09:54-0400 Diastolic blood pressure 68 mm[Hg] Jassi CLEMENS [facility] [place] 06-03-2024 09:54-0400 Heart rate 105 /min Jassi CLEMENS [facility] 06-03-2024 09:54-0400 Respiratory rate 16 /min Jassi CLEMENS [facility] 06-03-2024 09:54-0400 Systolic blood pressure 103 mm[Hg] Jassi CLEMENS [facility] 05-29-2024 06:42-0400 Body height 190.5 cm DO [employer] Work Phone: [facility] 05-29-2024 06:42-0400 Body weight 78.47 kg DO [employer] Work Phone: [facility] 01-21-2024 11:44-0400 Blood Pressure Location Moody POP [facility] 01-21-2024 11:44-0400 Diastolic blood pressure 72 mm[Hg] Moody POP [facility] 01-21-2024 11:44-0400 Heart rate 70 /min Moodyarnol POP [facility] 01-21-2024 11:44-0400 Respiratory rate 16 /min Moodyarnol POP [facility] 01-21-2024 11:44-0400 Systolic blood pressure 108 mm[Hg] Moody POP [facility] Encounters Encounter Date Encounter Type Care Provider Facility Start: 06-09-2024 ambulatory Moody POP Facili ty:[facility] Start: 06-03-2024 End: 06-04-2024 ambulatory Jassi CLEMENS Facility:[id number] Start: 06-03-2024 End: 06-03-2024 Patient encounter procedure Jassi CLEMENS [facility] [place] Start: 05-29-2024 End: 05-29-2024 Patient encounter procedure DO González Harriss Work Phone: [facility] [place] Work Phone: Start: 05-29-2024 End: 05-29-2024 ambulatory DO González Kuns Work Phone: [facility] Work Phone: Start: 05-26-2024 End: [...] Start: 04-30-2024 End: 04-30-2024 ambulatory Jassi CLEMENS Facility:[facility] [place] Start: 04-30-2024 End: 04-30-2024 Patient encounter procedure Jassi YANCEYL [facility] [place] Start: 04-28-2024 ambulatory Jassi NILL Facility:[facility] [place] Start: 04-23-2024 End: 04-23-2024 ambulatory DO González Kuns Work Phone: [facility] Work Phone: Start: 04-23-2024 End: 04-23-2024 Departed Referred DO González Kuns Work Phone: [facility] [place] [facility] Start: 04-23-2024 ambulatory Jassi CLEMENS Facility:[facility] Start: 04-22-2024 End: 04-23-2024 ambulatory Jassi CLEMENS Facility:[id number] Start: 04-21-2024 Non-patient / Non-visit DO Felipa tt Kuns Work Phone: [facility] Work Phone: Start: 04-11-2024 End: 04-11-2024 ambulatory DO González Kuns Work Phone: [facility] Work Phone: Start: 04-11-2024 End: 04-11-2024 Departed Referred DO González Kuns Work Phone: [facility] [place] [facility] Start: 03-28-2024 End: 03-28-2024 ambulatory [facility] Start: 02-25-2024 End: 02-25-2024 ambulatory [facility] Start: 02-11-2024 End: 02-11-2024 ambulatory Moody Rosi DONN Facility:[id number] Start: 01-21-2024 End: 01-21-2024 ambulatory Moody POP Facility:[facility] [place] Start: 01-21-2024 End: 01-21-2024 Patient encounter procedure Moody Rosi POP [facility] Start: 09-12-2023 ambulatory Jassi CLEMENS Facility:[facility] [place] Start: 08-26-2021 End: 08-26-2021 ambulatory AILIN BAKER Facility:[facility] Start: 02-23-2021 ambulatory AILIN BAKER Facility:[facility] Start: 12-06-2020 End: 12-07-2020 ambulatory ILAN TDOD Facility:[facility] Start: 10-07-2020 Encounter for genera l adult medical examination without abnormal findings AILIN BAKER [facility] Start: 10-01-2020 End: 10-02-2020 ambulatory AILIN BAKER Facility:[facility] Start: 10-01-2020 End: 10-02-2020 Encounter for general adult medical examination without abnormal findings AILIN BAKER Facility: Start: 2017 End: 08-03-2017 Ambulatory PROVIDER UNKNOWN Facility:[facility] Start: 07-24-2017 End: 07-25-2017 Ambulatory DEFAULT PHYSICIAN Facility:[facility] Start: 07-19-2017 End: 07-20-2017 Ambulatory DEFAULT PHYSICIAN Facility:[facility] Start: 06-18-2017 End: 06-19-2017 Ambulatory DEFAULT PHYSICIAN Facility:[facility] Procedures Date Procedure Procedure Detail Performing Clinician Start: 05-29-2024 XR pre/post mri xray DO González Kuns Work Phone: Start: 05-29-2024 MRI of cervical spin e with contrast DO González Kuns Work Phone: Start: 05-29-2024 MRI of head DO González K uns Work Phone: Start: 04-23-2024 Incisional biopsy Sudhir CLEMENS Start: 08-26-2021 PSA screening AILIN KHAN Comment on above: Performed By: #### P SASC #### [facility] [address] [place], [place] [address] Dr. Forrest Lauren Start: 10-01-2020 PSA screening AILIN KHAN Comment on above: Performed By: #### U TARIK, CMP, T7, PSASC, TSH, LIPID #### [facility] [address] [place], [place] [address] Matias Rivas Start: 08-06-2013 Colonoscopy Moody ASHER Start: 08-06-2004 Neoplasm of brain (disorder) Moody POP Back structure, excl uding neck (body structure) Moody POP Removal of acoustic neuroma Jassi CLEMENS Spinal arthrodesis Jassi INFANTE Tonsillectomy Moody POP Plan of Treatment Date Care Activity Detail Author Start: 06-16-2024 End: 06-16-2024 Patient encounter procedure 06/16/2024 3:00 PM EST Office Visit [facility] [address] [place] [phone] [facility] Start: 06-05-2024 End: 06-05-2024 Patient encounter procedure 06/05/2024 11:00 AM EDT Office Visit [facility] [address] [phone] Lucas Arenas, [address] [place], [place] [id number] [facility] Auditory function tests Auditory function tests Audiology Routine 05/26/2024 1:35 PM EDT [facility] Work Phone: Payers Date Payer Category Payer Medicare (Managed Care) [facility] [id number] 2023 Medicare [id number] 1959 [facility] [id number] 1959 Medicare [id number] 1959 Self-pay 1956 Unknown [id number] 2.16.840.1.268812.3.579.2. 593 1956 Unknown [id number] 2.16.840.1.103377.3.579.2. 593 1956 Unknown [id number] 2.16.840.1.937194.3.579.2. 593 1956 Unknown [id number] 2.16.840.1.018872.3.579.2. 593 1956 Unknown [id number] 2.16.840.1.428505.3.579.2. 1259 1956 Unknown [id number] 2.16.840.1.747186.3.579.2. 727 1956 Unknown [id number] 2.16.840.1.197184.3.579.2. 727 1956 Unknown [id number] 2.16.840.1.650988.3.579.2. 727 1956 Unknown [id number] 2.16.840.1.673015.3.579.2. 727 1956 Unknown [id number] 2.16.840.1.834744.3.579.2. 727 1956 Unknown [id number] 2.16.840.1.101338.3.579.2. 727 1956 Unknown [id number] 2.16.840.1.935192.3.579.2. 727 1956 Unknown [id number] 2.16.840.1.347990.3.579.2. 727 Private Health Insurance [facility] [id number] Unknown Unknown Bruce BC/BS [id number] Unknown [id number] 2.16.840.1.426401.3.579.2. 531 Unknown [id number] 2.16.840.1.836335.3.579.2. 531 Unknown [id number] 2.16.840.1.674204.3.579.2. 531 Social History Date Type Detail Facility Start: 01-21-2024 End: 06-03-2024 Tobacco smoking status Never smoked tobacco (finding) [facility] Tobacco smoking status Never [facility] Sex Assigned At Male [facility] Start: 1955 Sex Assigned At Male [facility] Tobacco smoking status NHIS Tobacco smoking consumption unknown [facility] Start: 1955 Sex assigned at Not on file [facility] Functional Status Date Assessment Result Facility 06-03-2024 Functional Status N/A [facility] [place] 04-30-2024 Functional Status N/A [facility] [place] 01-21-2024 Functional Status N/A [facility] Clinical Notes 01-21-2024 to 06-03-2024 Yanna Herbert, CCC-A - 05/26/2024 1:00 PM EDT Note Date & Type Note Facility 06-03-2024 Note General Surgery Offi ce/Clinic Note Chief Complaint consultation for port placement HPI Staff 68 year old male presents on consultation from Dr. Donnelly for port placement. History of Present Illness [...] nodes of axilla and upper limb) plan [id number]-a-[id number] insertion for chemotherapy; informed consent obtained. Ancef [...] unit(s), SubCutaneous, Once a day (at bedtime) luzronine 5 mcg Tab, 5 mcg= 1 tab(s), [...] Tobacco Use:. House (more content not included)... [facility] Comment on above: Result Comment: Elec tronically Signed By: AIRAM ELLIS, Jassi Nazario.monica\Date and Time Signed: 06/03/24 10:41 EDT 05-26-2024 [...] is eligible for hearing aids through his [facility] [employer] Benefit. Recommend a custom mold for the left ear. Ear impression taken of left ear without incident. Pt ordered mid level technology. Order completed in [employer] portal and pt scheduled for HAF 06-16-24 in [place]. documented in this encounter [facility] 03-28-2024 Note [facility] Subjective Hoang Tran is a 68 [...] HDL 42. TSH (more content not included)... [facility] 02-25-2024 Note [facility] Subjective Hoang Tran is a 68 [...] platelets 256, potassium (more content not included)... [facility] 01-21-2024 Note Chief Complaint Referral *LUTs [...] male new pt referred by Ailin Green RESTAURANT ASSISTANT due to LUTS. 1. BPH with obstruction/lower [...] see if sx improve off jardiance. Reviewed VAEH with pt. 3. Glucosuria (R81: Glycosuria) UA shows >=1000 mg/dl glucose. Last A1C 08/30/23 - 8.4. Pt is diabetic. -F/u with PCP to see if Jardiance can be switched. 4. Screening PSA (prostate specific antigen) (Z12.5: Encounter for screening for malignant neoplasm of prostat (more content not included)... [facility] Comment on above: Result Comment: [...] urethra. Follow these instructions at home: Take iypk-ner-hborisc and prescription medicines only as told by [...] provider. Document Revised: 02/08/2022 Document Reviewed: 02/08/2022 [employer] Patient Education 2022 [employer]. Follow Up Care 09/13/2023 09:26:56 With:Moody POP MD, URL Address: [facility] [address], [place] [address]- When: Unknown [facility] Evaluation + Plan note No data available for this section [facility] Evaluation + Plan note Future Appointments Appointment Date:06/09/2024 10:45:00 AM Scheduled Provider:Moody POP MD Location:[facility] Appointment Type:URO Office Visit [facility] General Surgery [place] Evaluation note No assessment inform ation available 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 [facility] this encounter [facility] Dis[facility] No data available for this section [facility] General Surgery [place] Progress note No data available for this section [facility] Summary Purpose Family History No [...] and content) DATE CREATED AUTHOR 01/29/2018 [facility] DATE CREATED AUTHOR AUTHOR'S ORGANIZ ATION 09/01/2021 [facility] DATE CREATED AUTHOR AUTHOR'S ORGANIZ ATION 03/30/2024 [facility] DATE CREATED AUTHOR AUTHOR'S ORGANIZ ATION 05/28/2024 [facility] DATE CREATED AUTHOR AUTHOR'S ORGANIZ ATION 06/08/2024 [facility] DATE CREATED AUTHOR AUTHOR'S ORGANIZ ATION 06/08/2024 [facility] Patient Care team informatio n [...] End: May 29, 2024 Ailin Green , CHARISSA-C Primary Care Provider Active Start: May 29, 2024 End: May 29, 2024 Team Status: Active Member Role Status Dates González Moon DO Primary Care Provider 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 [employer] 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 [facility]. provides no warranty or guarantee of the accuracy or completeness of information in this document.
[2024-06-10 11:03] LABS: Basophils Percent Auto 0.3 % (0.2-2.0); Eosinophils Absolute Auto 0.1 10^3/uL (0.0-0.7); Eosinophils Percent Auto 0.6 % (0.9-7.0); Hematocrit 36.8 % (42.0-54.0); Hemoglobin 11.4 g/dL (14.0-18.0); Immature Granulocytes Abs Auto 0.06 10^3/uL (0.00-0.03); Immature Granulocytes Pct Auto 0.6 % (0.0-0.5); Lymphocytes Absolute Auto 1.3 10^3/uL (1.2-3.8); Lymphocytes Percent Auto 11.9 % (20.5-60.0); Mean Corpuscular Volume 77.5 fL (80.0-94.0); Mean Platelet Volume 9.2 fL (9.5-13.5); Monocytes Absolute Auto 1.2 10^3/uL (0.3-0.8); Monocytes Percent Auto 11.3 % (1.7-12.0); Neutrophils Absolute Auto 8.1 10^3/uL (1.4-6.5); Neutrophils Percent Auto 75.3 % (43.0-75.0); Platelet Count 483 10^3/uL (150-450); Red Blood Count 4.75 10^6/uL (4.70-6.10); Red Cell Distribution Width 16.9 % (11.0-15.0); White Blood Count 10.8 10^3/uL (4.0-11.0)
[2024-06-10 11:34] LABS: Alanine Aminotransferase 44 U/L (16-63); Albumin Globulin Ratio 0.2; Albumin Level 1.2 g/dL (3.4-5.0); Alkaline Phosphatase 435 U/L (46-116); Anion Gap 11.6; Aspartate Amino Transferase 71 U/L (15-37); BUN Creatinine Ratio 13.4; Bilirubin Total 0.8 mg/dL (0.2-1.0); Calcium 9.3 mg/dL (8.5-10.1); Carbon Dioxide 30.2 mmol/L (21.0-32.0); Chloride 97 mmol/L (98-107); Estimated GFR (African America >60 (>=60 mL/min/1.73m^2); Estimated GFR (Non-African Ame >60 (>=60 mL/min/1.73m^2); Globulin 6.1 g/dL; Glucose 149 mg/dL (74-106); Lactate Dehydrogenase 180 U/L (85-227); Potassium 3.8 mmol/L (3.5-5.1); Sodium 135 mmol/L (136-145); Total Protein 7.3 g/dL (6.4-8.2)
[2024-06-10] MEDS: 0.9 % SODIUM CHLORIDE 250 ML 10 ML IV (12:40)
[2024-06-10] MEDS: PALONOSETRON HCL 0.25 MG/5 ML VIAL IV (12:41)
[2024-06-10] MEDS: DEXAMETHASONE SODIUM PHOSPHATE 10 MG in 0.9 % SODIUM CHLORIDE 100 ML 303 MG IV (12:43)
[2024-06-10 12:54] VITALS: BP 98/64; PULSE 96; TEMP 36.2; O2SAT 94
[2024-06-10] MEDS: APREPITANT 130 MG in 0.9 % SODIUM CHLORIDE 100 ML 236 MG IV (13:11)
[2024-06-10] MEDS: DOXORUBICIN HCL 52 MG IVP (14:01)
[2024-06-10] MEDS: VINBLASTINE SULFATE IV (14:13)
[2024-06-10] MEDS: SODIUM CHLORIDE 0.9% IV ×3 (14:13→14:52)
[2024-06-10] MEDS: BLEOMYCIN SULFATE IV (14:31)
[2024-06-10] MEDS: DACARBAZINE IV (14:52)
[2024-06-10] MEDS: HEPARIN SODIUM (PORCINE) PF LOCK FLUSH 500 UNIT/5 ML SYRINGE IV (15:35)
--- NOTE | 2024-06-10 16:03 | PC.NURSE ---
1540 Tolerated C.1D.1 tx well. Noted red blotching on forehead after Bleomyin infusion, MD notified. No new orders rec'd. Port flushed and heplocked, then de-accessed. Small wound on rt buttock near coccyx dressed with meplex per MD direction. D/c'd stable via w/c with . Returns this for labs/fluids.
--- NOTE | 2024-06-10 16:13 | PC.NURSE ---
1540-Pt was here for C.1D.1 ABVD. Was seen today by Dr. Donnelly. Noted red blotching on forehead after Bleo infusion, vitals WNL B/P=108/74, P=84, R=16, T=98.4F. Notified Dr. Donnelly, order rec'd to bring pt in this for nurse eval, labs/fluids. Drsg applied to small wound on right in buttock near coccyx with meform per md direction. Infusion complete, port flushed with saline followed by heplock, then de-accessed. Pt d/c'd stable.
[2024-06-12] MEDS: 0.9 % SODIUM CHLORIDE 1,000 ML 1000 ML IV (11:15)
[2024-06-12 11:26] VITALS: BP 98/67; PULSE 85; TEMP 35.9; O2SAT 98
[2024-06-12 11:30] LABS: Basophils Percent Auto 0.1 % (0.2-2.0); Eosinophils Percent Auto 0.3 % (0.9-7.0); Hematocrit 38.9 % (42.0-54.0); Hemoglobin 11.7 g/dL (14.0-18.0); Immature Granulocytes Abs Auto 0.05 10^3/uL (0.00-0.03); Immature Granulocytes Pct Auto 0.4 % (0.0-0.5); Lymphocytes Percent Auto 8.5 % (20.5-60.0); Mean Corpuscular HGB Conc 30.1 g/dL (29.9-35.2); Mean Corpuscular Hemoglobin 23.4 pg (25.9-34.0); Mean Platelet Volume 9.5 fL (9.5-13.5); Monocytes Absolute Auto 0.3 10^3/uL (0.3-0.8); Monocytes Percent Auto 2.6 % (1.7-12.0); Neutrophils Absolute Auto 10.3 10^3/uL (1.4-6.5); Neutrophils Percent Auto 88.1 % (43.0-75.0); Platelet Count 470 10^3/uL (150-450); Red Blood Count 4.99 10^6/uL (4.70-6.10); Red Cell Distribution Width 17.1 % (11.0-15.0); White Blood Count 11.7 10^3/uL (4.0-11.0)
[2024-06-12 11:45] LABS: Alanine Aminotransferase 39 U/L (16-63); Albumin Globulin Ratio 0.2; Albumin Level 1.3 g/dL (3.4-5.0); Alkaline Phosphatase 356 U/L (46-116); Anion Gap 10.5; Aspartate Amino Transferase 40 U/L (15-37); BUN Creatinine Ratio 24.7; Bilirubin Total 0.5 mg/dL (0.2-1.0); Calcium 9.5 mg/dL (8.5-10.1); Carbon Dioxide 31.7 mmol/L (21.0-32.0); Chloride 103 mmol/L (98-107); Estimated GFR (African America >60 (>=60 mL/min/1.73m^2); Estimated GFR (Non-African Ame >60 (>=60 mL/min/1.73m^2); Globulin 5.8 g/dL; Glucose 128 mg/dL (74-106); Magnesium 2.2 mg/dL (1.8-2.4); Potassium 4.2 mmol/L (3.5-5.1); Sodium 141 mmol/L (136-145); Total Protein 7.1 g/dL (6.4-8.2)
[2024-06-12] MEDS: HEPARIN SODIUM (PORCINE) PF LOCK FLUSH 500 UNIT/5 ML SYRINGE IV (12:23)
--- NOTE | 2024-06-12 14:10 | PC.NURSE ---
Pt arrives accompanied by for labs/hydration. states PCP d/c'd Coreg and started Metoprolol 25mg BID. Med list updated. Labs drawn, results reviewed. Hydration tolerated without incident. Pt d/c'd stable via w/c. Returns 06/17/24 for f/u with Dr. Donnelly.
[2024-06-17 14:02] LABS: Hematocrit 35.7 % (42.0-54.0); Hemoglobin 10.6 g/dL (14.0-18.0); Mean Corpuscular HGB Conc 29.7 g/dL (29.9-35.2); Mean Corpuscular Volume 77.4 fL (80.0-94.0); Mean Platelet Volume 9.5 fL (9.5-13.5); Platelet Count 330 10^3/uL (150-450); Red Blood Count 4.61 10^6/uL (4.70-6.10); Red Cell Distribution Width 16.1 % (11.0-15.0); White Blood Count 1.5 10^3/uL (4.0-11.0)
[2024-06-17 14:19] LABS: Alanine Aminotransferase 22 U/L (16-63); Albumin Globulin Ratio 0.3; Albumin Level 1.8 g/dL (3.4-5.0); Alkaline Phosphatase 228 U/L (46-116); Aspartate Amino Transferase 17 U/L (15-37); BUN Creatinine Ratio 18.5; Bilirubin Total 0.5 mg/dL (0.2-1.0); Calcium 8.6 mg/dL (8.5-10.1); Carbon Dioxide 30.5 mmol/L (21.0-32.0); Chloride 101 mmol/L (98-107); Estimated GFR (African America >60 (>=60 mL/min/1.73m^2); Estimated GFR (Non-African Ame >60 (>=60 mL/min/1.73m^2); Globulin 5.2 g/dL; Glucose 129 mg/dL (74-106); Potassium 3.5 mmol/L (3.5-5.1); Sodium 142 mmol/L (136-145)
[2024-06-17 14:41] LABS: Basophils Abs Manual 0.06 10^3/uL (0.00-0.10); Eosinophils Absolute Manual 0.03 10^3/uL (0.00-0.70); Lymphocytes Absolute Manual 0.69 10^3/uL (1.20-3.80); Monocytes Absolute Manual 0.03 10^3/uL (0.30-0.80); Segmented Neut Absolute Manual 0.69 10^3/uL (1.4-6.5)
[2024-06-17 14:42] LABS: Microcytosis 1+
[2024-06-17 15:19] VITALS: BP 106/59; PULSE 150; TEMP 36.5; O2SAT 95
--- NOTE | 2024-06-17 15:21 | PC.NURSE ---
1330 arrival wheelchair with . alert oriented. rt chest pport accessed per Jr GIPSON. Labs drawn sent to lab. complains of fatigue patient and report of being in hospital over weekend due to atrial fib, discharged on sunday vs obtained see documentation. heart rate bouncing around anywhere from 100 - 160 per pulse oximeter. questioned if he had been taking new medications ie diltiazem and and increased metoprolol, and patient initially stated that he has been taking them. assisted patient to bed. patient relates to hx of nausea and stomach burning and lack of apetite. 1400 DR mckeon in and examines speaks withpatient and . 1430 vs obtained. [facility] called and asked to have their provider call Dr. Gutierrez phone. 1445 [facility] called back and obtained more information on patient. Questioned and patient about time he was taking his medications. after discussing, patient had not taken any of his meds today due to stomach issues. Educated on importance of taking, medications, educated on use of zofran and compazine, how and when to use them. also educated on protonix and carafate use, which prescriptions have been sent to pharmacy. 1510 Dr mckeon discussed options for treatment of atrial fib/RVR. 116/64 P 150
[2024-06-17] MEDS: METOPROLOL TARTRATE 5 MG/5 ML VIAL IV (15:33)
[2024-06-17] MEDS: SUCRALFATE 1 GM TABLET PO (15:33)
--- NOTE | 2024-06-17 15:34 | PC.NURSE ---
1535 117/82 P140 lopressor ivp as ordered. 1540 113/77 P 112. tolerted lopressor without any issues. 1545 103/79 P 90-125. Patient remains alert and oriented with no further issues. remains in bed with hob elevated 40degrees. remains at bedside. 1550 107/77 P 123 Educated patient and on use of OTC antacids and diet modifications ie to stay away from acidic foods while having stomach issue. 1605 114/74 P HR running 85-125
--- NOTE | 2024-06-17 16:19 | PC.NURSE ---
1610 [facility] deaccessed. Dr. Donnelly speaks with patient and , theyare comfortable going home, ensuring he takes his meds as prescribed, verbalizes understanding. ambulates to bathroom with cane. Returns to wheelchair and taken to car.
[2024-06-24 09:40] VITALS: BP 103/65; PULSE 60; TEMP 36.3; O2SAT 97
[2024-06-24 10:16] LABS: Hemoglobin 10.5 g/dL (14.0-18.0); Mean Corpuscular Hemoglobin 23.6 pg (25.9-34.0); Mean Corpuscular Volume 78.7 fL (80.0-94.0); Mean Platelet Volume 9.4 fL (9.5-13.5); Platelet Count 399 10^3/uL (150-450); Red Blood Count 4.45 10^6/uL (4.70-6.10); Red Cell Distribution Width 18.4 % (11.0-15.0); White Blood Count 1.7 10^3/uL (4.0-11.0)
[2024-06-24 10:23] LABS: Alanine Aminotransferase 14 U/L (16-63); Albumin Globulin Ratio 0.4; Albumin Level 1.8 g/dL (3.4-5.0); Alkaline Phosphatase 157 U/L (46-116); Anion Gap 11.1; Aspartate Amino Transferase 15 U/L (15-37); BUN Creatinine Ratio 15.8; Bilirubin Total 0.3 mg/dL (0.2-1.0); Calcium 8.5 mg/dL (8.5-10.1); Carbon Dioxide 29.3 mmol/L (21.0-32.0); Chloride 104 mmol/L (98-107); Estimated GFR (African America >60 (>=60 mL/min/1.73m^2); Estimated GFR (Non-African Ame >60 (>=60 mL/min/1.73m^2); Globulin 4.6 g/dL; Glucose 191 mg/dL (74-106); Magnesium 1.9 mg/dL (1.8-2.4); Potassium 3.4 mmol/L (3.5-5.1); Sodium 141 mmol/L (136-145); Total Protein 6.4 g/dL (6.4-8.2)
[2024-06-24 11:02] LABS: Percent Iron Saturation 26.5 %
[2024-06-24 11:05] LABS: Lymphocytes Absolute Manual 0.81 10^3/uL (1.20-3.80)
[2024-06-24 11:06] LABS: Basophils Abs Manual 0.03 10^3/uL (0.00-0.10); Monocytes Absolute Manual 0.54 10^3/uL (0.30-0.80)
[2024-06-24 11:07] LABS: Anisocytosis 1+; Poikilocytosis 1+
[2024-06-24 11:08] LABS: Acanthocytes 1+; Tear Drop Cells 1+
[2024-06-24] MEDS: HEPARIN SODIUM (PORCINE) PF LOCK FLUSH 500 UNIT/5 ML SYRINGE IV (12:27)
--- NOTE | 2024-06-24 15:08 | PC.NURSE ---
Pt here for C.1D.15 ABVD, labs drawn from port. ANC=0.20, Dr. Donnelly notified. Order rec'd to give Zarxio x 3 days, repeat cbc on Sunday, and hold chemo x 1 wk. Med unavailable today, pt to start injections tomorrow. Educated on neutropenic precautions and when to call the office if he develops s/s. D/c'd stable with at side.
[2024-06-25 13:55] VITALS: BP 95/60; PULSE 69; TEMP 36.5; O2SAT 98
[2024-06-25] MEDS: FILGRASTIM-SNDZ 480 MCG/0.8 ML SYRINGE 372 MCG SUBQ (14:05)
--- NOTE | 2024-06-25 14:12 | PC.NURSE ---
1355: Pt. to [facility] via w/c. Accompanied by . VSS. Pt.appears more alert and engaged. Relays feeling pretty good today. Denies c/o. Medicated with Zarxio SQ to right upper arm. No bleeding to site. Pt. tolerated without c/o. 1407: Pt. d/c'd via w/c to home with .
[2024-06-26] MEDS: FILGRASTIM-SNDZ 480 MCG/0.8 ML SYRINGE 372 MCG SUBQ (13:55)
--- NOTE | 2024-06-26 14:05 | PC.NURSE ---
1355: Pt. to [facility] for daily injection accompanied by . Pt. relays side effect of low back pain last evening, but subsided after awhile. Reminded pt to follow bone pain regimen in chemo teach packet. Both pt. and voice understanding. Medicated pt. with Zarxio sq to right upper arm. No bleeding to site. Pt. denies c/o pain. No other changes relayed at this time. Expressed feeling better over last several days. 1405: Pt. d/c'd to home with .
[2024-06-27 11:00] VITALS: BP 110/58; PULSE 72; TEMP 36.6; O2SAT 96
[2024-06-27 11:16] LABS: Hematocrit 37.4 % (42.0-54.0); Hemoglobin 11.3 g/dL (14.0-18.0); Mean Corpuscular HGB Conc 30.2 g/dL (29.9-35.2); Mean Corpuscular Hemoglobin 24.2 pg (25.9-34.0); Mean Corpuscular Volume 80.3 fL (80.0-94.0); Platelet Count 421 10^3/uL (150-450); Red Blood Count 4.66 10^6/uL (4.70-6.10); Red Cell Distribution Width 20.3 % (11.0-15.0); White Blood Count 29.1 10^3/uL (4.0-11.0)
--- NOTE | 2024-06-27 11:24 | PC.NURSE ---
1100: Pt. to [facility] for injection and blood draw as ordered. Peripheral blood draw performed without difficulty. Tolerates without c/o. Medicated with Zarxio as ordered. See documentation. 1115: D/c'd to home with .
[2024-06-27 11:36] LABS: Band Neutrophils Absolute 3.5 10^3/uL (0.0-0.3); Lymphocytes Absolute Manual 2.91 10^3/uL (1.20-3.80); Segmented Neut Absolute Manual 20.66 10^3/uL (1.4-6.5)
[2024-06-27 11:37] LABS: Monocytes Absolute Manual 1.74 10^3/uL (0.30-0.80)
[2024-06-27] MEDS: FILGRASTIM-SNDZ 480 MCG/0.8 ML SYRINGE 372 MCG SUBQ (14:00)
[2024-07-01 10:25] VITALS: BP 114/79; PULSE 124; TEMP 36.2; O2SAT 97
[2024-07-01 10:39] LABS: Hematocrit 37.9 % (42.0-54.0); Hemoglobin 11.6 g/dL (14.0-18.0); Mean Corpuscular HGB Conc 30.6 g/dL (29.9-35.2); Mean Corpuscular Hemoglobin 24.6 pg (25.9-34.0); Mean Corpuscular Volume 80.3 fL (80.0-94.0); Mean Platelet Volume 9.3 fL (9.5-13.5); Platelet Count 345 10^3/uL (150-450); Red Blood Count 4.72 10^6/uL (4.70-6.10); Red Cell Distribution Width 20.8 % (11.0-15.0); White Blood Count 18.7 10^3/uL (4.0-11.0)
[2024-07-01 10:55] LABS: Band Neutrophils Absolute 0.6 10^3/uL (0.0-0.3); Basophils Abs Manual 0.18 10^3/uL (0.00-0.10); Monocytes Absolute Manual 3.17 10^3/uL (0.30-0.80); Segmented Neut Absolute Manual 11.59 10^3/uL (1.4-6.5)
[2024-07-01 10:56] LABS: Metamyelocytes Absolute Manual 0.18; Myelocytes Absolute Manual 0.18; Nucleated Red Blood Cells 2
[2024-07-01 11:00] LABS: Anisocytosis 1+; Microcytosis 1+
[2024-07-01 11:01] LABS: Alanine Aminotransferase 14 U/L (16-63); Albumin Globulin Ratio 0.5; Albumin Level 2.3 g/dL (3.4-5.0); Alkaline Phosphatase 170 U/L (46-116); Anion Gap 12.4; Aspartate Amino Transferase 16 U/L (15-37); Bilirubin Total 0.3 mg/dL (0.2-1.0); Calcium 8.5 mg/dL (8.5-10.1); Carbon Dioxide 28.5 mmol/L (21.0-32.0); Chloride 103 mmol/L (98-107); Estimated GFR (African America >60 (>=60 mL/min/1.73m^2); Estimated GFR (Non-African Ame >60 (>=60 mL/min/1.73m^2); Globulin 4.2 g/dL; Glucose 244 mg/dL (74-106); Lactate Dehydrogenase 190 U/L (85-227); Potassium 3.9 mmol/L (3.5-5.1); Sodium 140 mmol/L (136-145); Total Protein 6.5 g/dL (6.4-8.2)
[2024-07-01] MEDS: 0.9 % SODIUM CHLORIDE 250 ML 10 ML IV (11:24)
[2024-07-01] MEDS: PALONOSETRON HCL 0.25 MG/5 ML VIAL IV (11:36)
[2024-07-01] MEDS: APREPITANT 130 MG in 0.9 % SODIUM CHLORIDE 100 ML 236 MG IV (11:38)
[2024-07-01 11:42] VITALS: PULSE 60; O2SAT 96
--- NOTE | 2024-07-01 11:44 | PC.NURSE ---
110 Dr. Donnelly in and examines. patient offers no complaints 1140 Pre meds initiated. vs obtained. heart rate bouncing around from 58 - 120, at bedside.
[2024-07-01] MEDS: DEXAMETHASONE SODIUM PHOSPHATE 10 MG in 0.9 % SODIUM CHLORIDE 100 ML 303 MG IV (12:12)
[2024-07-01] MEDS: DOXORUBICIN HCL 52 MG IVP (12:51)
[2024-07-01] MEDS: SODIUM CHLORIDE 0.9% IV ×3 (13:03→13:47)
[2024-07-01] MEDS: VINBLASTINE SULFATE IV (13:03)
[2024-07-01 13:10] VITALS: BP 108/75; PULSE 110; TEMP 36.8; O2SAT 96
--- NOTE | 2024-07-01 13:11 | PC.NURSE ---
1245 Eats 100% meal. Tolerating infusions without any issues. 1310 VS obtained. alert oriented resting comfortably in semi fowlers position in bed. at bedside, pleasant and talkative.
[2024-07-01] MEDS: BLEOMYCIN SULFATE IV (13:30)
[2024-07-01] MEDS: DACARBAZINE IV (13:47)
[2024-07-01 14:06] VITALS: BP 100/58; PULSE 78; TEMP 36.5; O2SAT 96
[2024-07-01] MEDS: HEPARIN SODIUM (PORCINE) PF LOCK FLUSH 500 UNIT/5 ML SYRINGE IV (14:45)
== END 2024-07-05 23:59 | disposition home or self-care (01) ==
LOC: HEMC 07:35
PROVIDERS: PCP Nurse Practitioner Family; Visit Provider Internal Medicine Hematology & Oncology
DX: Z51.11 Encounter for antineoplastic chemotherapy (principal); C85.11 Unspecified B-cell lymphoma, lymph nodes of head, face, and neck; R74.01 Elevation of levels of liver transaminase levels; D64.9 Anemia, unspecified; D50.9 Iron deficiency anemia, unspecified; C81.18 Nodular sclerosis Hodgkin lymphoma, lymph nodes of multiple sites; R11.2 Nausea with vomiting, unspecified; Z79.4 Long term (current) use of insulin; E11.9 Type 2 diabetes mellitus without complications; D70.1 Agranulocytosis secondary to cancer chemotherapy; H91.90 Unspecified hearing loss, unspecified ear; R62.7 Adult failure to thrive; R00.0 Tachycardia, unspecified; Z79.899 Other long term (current) drug therapy; Z80.3 Family history of malignant neoplasm of breast
CPT/HCPCS: 36415; 36591; 80053; 82728; 83540; 83550; 83615; 83735; 85007; 85025; 85027; 96360; 96367; 96372; 96374; 96375; 96411; 96413; G0463; J0185; J1100; J1642; J2469; J9000; J9040; J9130; J9360; Q5101

== ENCOUNTER 2024-08-05 07:29 | Outpatient (RCR) | payer MEDICARE, SELFPAY ==
[2024-07-15 09:00] VITALS: BP 93/70; PULSE 130; TEMP 36.3; O2SAT 98
[2024-07-15 09:19] LABS: Hemoglobin 11.5 g/dL (14.0-18.0); Mean Corpuscular HGB Conc 31.1 g/dL (29.9-35.2); Mean Corpuscular Hemoglobin 25.8 pg (25.9-34.0); Mean Corpuscular Volume 83.1 fL (80.0-94.0); Mean Platelet Volume 9.8 fL (9.5-13.5); Platelet Count 349 10^3/uL (150-450); Red Blood Count 4.45 10^6/uL (4.70-6.10); Red Cell Distribution Width 24.2 % (11.0-15.0); White Blood Count 2.5 10^3/uL (4.0-11.0)
[2024-07-15 09:32] LABS: Eosinophils Absolute Manual 0.27 10^3/uL (0.00-0.70); Lymphocytes Absolute Manual 1.05 10^3/uL (1.20-3.80); Segmented Neut Absolute Manual 0.52 10^3/uL (1.4-6.5)
[2024-07-15 09:33] LABS: Basophils Abs Manual 0.15 10^3/uL (0.00-0.10)
[2024-07-15 09:35] VITALS: BP 93/70
[2024-07-15] MEDS: METOPROLOL TARTRATE 50 MG TABLET PO (09:35)
[2024-07-15] MEDS: DILTIAZEM HCL 240 MG CAP.ER.24H PO (09:35)
[2024-07-15 09:39] LABS: Alanine Aminotransferase 21 U/L (16-63); Albumin Globulin Ratio 0.8; Albumin Level 2.8 g/dL (3.4-5.0); Alkaline Phosphatase 108 U/L (46-116); Anion Gap 11.9; Aspartate Amino Transferase 11 U/L (15-37); BUN Creatinine Ratio 15.6; Bilirubin Total 0.6 mg/dL (0.2-1.0); Calcium 8.9 mg/dL (8.5-10.1); Carbon Dioxide 28.2 mmol/L (21.0-32.0); Chloride 107 mmol/L (98-107); Estimated GFR (African America >60 (>=60 mL/min/1.73m^2); Estimated GFR (Non-African Ame >60 (>=60 mL/min/1.73m^2); Globulin 3.3 g/dL; Glucose 139 mg/dL (74-106); Lactate Dehydrogenase 126 U/L (85-227); Potassium 4.1 mmol/L (3.5-5.1); Sodium 143 mmol/L (136-145); Total Protein 6.1 g/dL (6.4-8.2)
[2024-07-15] MEDS: HEPARIN SODIUM (PORCINE) PF LOCK FLUSH 500 UNIT/5 ML SYRINGE IV (10:41)
--- NOTE | 2024-07-15 14:02 | PC.NURSE ---
Pt here for C.2D.1 ABVD. Labs drawn from port, results reviewed. ANC=0.5, Dr. Donnelly notified and order rec'd to hold tx x 1 wk, give Zarxio tomorrow, repeat cbc 07/17 and give 2nd dose of Zarxio if anc < 1.5. Port left accessed for repeat blood draw on 07/17. Pt d/c'd stable.
[2024-07-16 10:30] VITALS: BP 93/67; PULSE 84; TEMP 36.6; O2SAT 97
[2024-07-16] MEDS: FILGRASTIM-SNDZ 480 MCG/0.8 ML SYRINGE 372 MCG SUBQ (11:01)
[2024-07-17 10:28] VITALS: BP 90/61; PULSE 72; TEMP 36.6; O2SAT 96
[2024-07-17 10:49] LABS: Basophils Absolute Auto 0.1 10^3/uL (0.0-0.1); Basophils Percent Auto 1.2 % (0.2-2.0); Eosinophils Absolute Auto 0.5 10^3/uL (0.0-0.7); Eosinophils Percent Auto 9.5 % (0.9-7.0); Hematocrit 36.9 % (42.0-54.0); Hemoglobin 11.3 g/dL (14.0-18.0); Immature Granulocytes Abs Auto 0.09 10^3/uL (0.00-0.03); Immature Granulocytes Pct Auto 1.9 % (0.0-0.5); Lymphocytes Absolute Auto 1.4 10^3/uL (1.2-3.8); Lymphocytes Percent Auto 27.8 % (20.5-60.0); Mean Corpuscular HGB Conc 30.6 g/dL (29.9-35.2); Mean Corpuscular Hemoglobin 26.2 pg (25.9-34.0); Mean Corpuscular Volume 85.4 fL (80.0-94.0); Monocytes Absolute Auto 1.2 10^3/uL (0.3-0.8); Monocytes Percent Auto 25.4 % (1.7-12.0); Neutrophils Absolute Auto 1.7 10^3/uL (1.4-6.5); Neutrophils Percent Auto 34.2 % (43.0-75.0); Platelet Count 341 10^3/uL (150-450); Red Blood Count 4.32 10^6/uL (4.70-6.10); Red Cell Distribution Width 24.3 % (11.0-15.0); White Blood Count 4.9 10^3/uL (4.0-11.0)
[2024-07-22 08:43] VITALS: BP 115/76; PULSE 62; TEMP 36.4; O2SAT 96
[2024-07-22 09:06] LABS: Hemoglobin 12.2 g/dL (14.0-18.0); Mean Corpuscular HGB Conc 31.3 g/dL (29.9-35.2); Mean Corpuscular Hemoglobin 26.8 pg (25.9-34.0); Mean Corpuscular Volume 85.7 fL (80.0-94.0); Mean Platelet Volume 9.8 fL (9.5-13.5); Platelet Count 328 10^3/uL (150-450); Red Blood Count 4.55 10^6/uL (4.70-6.10); Red Cell Distribution Width 23.6 % (11.0-15.0); White Blood Count 12.1 10^3/uL (4.0-11.0)
[2024-07-22 09:23] LABS: Alanine Aminotransferase 16 U/L (16-63); Albumin Globulin Ratio 0.8; Albumin Level 2.8 g/dL (3.4-5.0); Alkaline Phosphatase 98 U/L (46-116); Anion Gap 9.7; Aspartate Amino Transferase 17 U/L (15-37); Bilirubin Total 0.3 mg/dL (0.2-1.0); Calcium 8.9 mg/dL (8.5-10.1); Carbon Dioxide 30.5 mmol/L (21.0-32.0); Chloride 107 mmol/L (98-107); Estimated GFR (African America >60 (>=60 mL/min/1.73m^2); Estimated GFR (Non-African Ame >60 (>=60 mL/min/1.73m^2); Globulin 3.4 g/dL; Glucose 107 mg/dL (74-106); Lactate Dehydrogenase 194 U/L (85-227); Magnesium 1.8 mg/dL (1.8-2.4); Potassium 4.2 mmol/L (3.5-5.1); Sodium 143 mmol/L (136-145); Total Protein 6.2 g/dL (6.4-8.2)
[2024-07-22 09:25] LABS: Band Neutrophils Absolute 0.5 10^3/uL (0.0-0.3); Eosinophils Absolute Manual 0.48 10^3/uL (0.00-0.70); Lymphocytes Absolute Manual 1.69 10^3/uL (1.20-3.80); Metamyelocytes Absolute Manual 0.12; Monocytes Absolute Manual 1.21 10^3/uL (0.30-0.80)
[2024-07-22 09:26] LABS: Anisocytosis 2+
[2024-07-22] MEDS: PALONOSETRON HCL 0.25 MG/5 ML VIAL IV (10:09)
[2024-07-22] MEDS: APREPITANT 130 MG in 0.9 % SODIUM CHLORIDE 100 ML 236 MG IV (10:11)
[2024-07-22] MEDS: DEXAMETHASONE SODIUM PHOSPHATE 10 MG in 0.9 % SODIUM CHLORIDE 100 ML 303 MG IV (10:45)
[2024-07-22] MEDS: 0.9 % SODIUM CHLORIDE 250 ML 10 ML IV (10:47)
[2024-07-22] MEDS: DOXORUBICIN HCL 52 MG IVP (11:12)
[2024-07-22] MEDS: SODIUM CHLORIDE 0.9% IV ×3 (11:25→11:49)
[2024-07-22] MEDS: BLEOMYCIN SULFATE IV (11:25)
[2024-07-22] MEDS: VINBLASTINE SULFATE IV (11:34)
[2024-07-22] MEDS: DACARBAZINE IV (11:49)
[2024-07-22] MEDS: PEGFILGRASTIM 6 MG/0.6 ML SQ (12:55)
[2024-07-22 13:05] VITALS: BP 113/71; PULSE 65; TEMP 35.9; O2SAT 95
--- NOTE | 2024-07-22 16:08 | PC.NURSE ---
0843: Pt. to [facility] amb accompanied by . Weight obtained. Pt. to bed for chemo treatment. VSS. Using sterile technique, right ant chest port accessed easily. Flushes easily with good blood return with aspiration. Blood drawn for ordered labs. Pt. tolerated all without c/o. Assessment completed, see documentation. Water and warm blanket provided. 0940: Labs resulted and reviewed by Dr. Donnelly. Ok to proceed with treatment. 1009: Pre-chemo meds initiated at this time. Pt. denies needs. 1112: Doxorubicin administered IVP over 5 mins. as directed. Blood aspirated every few mL. Pt. tolerated without c/o. 1125: IV Bleomycin initiated. Lunch tray ordered. 1134: Pt. without side effects from Bleo. IV Vinblastine initiated as ordered. 1149: Vinblastine completed without adverse reaction. Dacarbazine infusion initiated. Lunch tray provided.
--- NOTE | 2024-07-22 16:15 | PC.NURSE ---
1255: Neulasta Onpro applied to left lower abdomen. Pt. and given education about device and removal. 1305: Pt. without c/o or needs. VSS. D/c'd amb. to home with .
[2024-08-05 09:08] VITALS: BP 90/60; PULSE 71; TEMP 37; O2SAT 95
[2024-08-05 09:23] LABS: Hematocrit 41.9 % (42.0-54.0); Mean Corpuscular Hemoglobin 27.3 pg (25.9-34.0); Platelet Count 354 10^3/uL (150-450); Red Blood Count 4.76 10^6/uL (4.70-6.10); Red Cell Distribution Width 22.3 % (11.0-15.0); White Blood Count 16.9 10^3/uL (4.0-11.0)
[2024-08-05 09:41] LABS: Alanine Aminotransferase 21 U/L (16-63); Albumin Globulin Ratio 0.9; Albumin Level 3.1 g/dL (3.4-5.0); Alkaline Phosphatase 124 U/L (46-116); Anion Gap 8.6; Aspartate Amino Transferase 17 U/L (15-37); Bilirubin Total 0.2 mg/dL (0.2-1.0); Calcium 8.8 mg/dL (8.5-10.1); Carbon Dioxide 31.4 mmol/L (21.0-32.0); Chloride 108 mmol/L (98-107); Estimated GFR (African America >60 (>=60 mL/min/1.73m^2); Estimated GFR (Non-African Ame >60 (>=60 mL/min/1.73m^2); Globulin 3.4 g/dL; Glucose 136 mg/dL (74-106); Lactate Dehydrogenase 176 U/L (85-227); Sodium 144 mmol/L (136-145); Total Protein 6.5 g/dL (6.4-8.2)
[2024-08-05 10:04] LABS: Band Neutrophils Absolute 0.3 10^3/uL (0.0-0.3); Segmented Neut Absolute Manual 10.14 10^3/uL (1.4-6.5)
[2024-08-05 10:05] LABS: Basophils Abs Manual 0.67 10^3/uL (0.00-0.10); Eosinophils Absolute Manual 0.33 10^3/uL (0.00-0.70); Lymphocytes Absolute Manual 3.04 10^3/uL (1.20-3.80); Metamyelocytes Absolute Manual 0.16; Monocytes Absolute Manual 1.69 10^3/uL (0.30-0.80)
[2024-08-05 10:06] LABS: Anisocytosis 1+; Nucleated Red Blood Cells 1
[2024-08-05] MEDS: 0.9 % SODIUM CHLORIDE 250 ML 10 ML IV (10:30)
[2024-08-05] MEDS: 0.9 % SODIUM CHLORIDE 500 ML IV (10:30)
[2024-08-05] MEDS: PALONOSETRON HCL 0.25 MG/5 ML VIAL IV (11:03)
[2024-08-05] MEDS: DEXAMETHASONE SODIUM PHOSPHATE 10 MG in 0.9 % SODIUM CHLORIDE 100 ML 303 MG IV (11:13)
[2024-08-05] MEDS: APREPITANT 130 MG in 0.9 % SODIUM CHLORIDE 100 ML 236 MG IV (11:34)
[2024-08-05 11:39] VITALS: BP 128/89; PULSE 100; TEMP 36.6; O2SAT 95
[2024-08-05] MEDS: DOXORUBICIN HCL 52 MG IV (12:28)
[2024-08-05] MEDS: BLEOMYCIN SULFATE IV (12:41)
[2024-08-05] MEDS: SODIUM CHLORIDE 0.9% IV ×3 (12:41→13:24)
[2024-08-05] MEDS: VINBLASTINE SULFATE IV (13:00)
[2024-08-05] MEDS: DACARBAZINE IV (13:24)
[2024-08-05] MEDS: PEGFILGRASTIM 6 MG/0.6 ML SQ (14:06)
--- NOTE | 2024-08-05 15:10 | PC.NURSE ---
1200 tolerating infusions without any difficulty. Up to restroom to void. gait steady, tolerated activity well. Eats 100% of lunch. Reviewed bowel plan that Dr. Donnelly spoke with patient and spouse about. Should be taking either docusate daily or senokot, as well as his mirilax to see if this helps with constipation. Use MOM only if necessary. and patient verbalize understanding
--- NOTE | 2024-08-05 15:14 | PC.NURSE ---
1430 Infusions complete, port flushed with normal saline followed by hep lock flush. Deaccessed port, bandaid applied, tolerated well. ambulates to bathroom, gait steady. Released ambulatory using cane accompanied by
== END 2024-08-05 23:59 | disposition home or self-care (01) ==
LOC: HEMC 07:29
PROVIDERS: PCP Nurse Practitioner Family; Visit Provider Internal Medicine Hematology & Oncology
DX: Z51.11 Encounter for antineoplastic chemotherapy (principal); C81.18 Nodular sclerosis Hodgkin lymphoma, lymph nodes of multiple sites; R74.01 Elevation of levels of liver transaminase levels; D50.9 Iron deficiency anemia, unspecified; R11.2 Nausea with vomiting, unspecified; Z79.899 Other long term (current) drug therapy; D70.1 Agranulocytosis secondary to cancer chemotherapy; E11.9 Type 2 diabetes mellitus without complications; Z79.4 Long term (current) use of insulin; R62.7 Adult failure to thrive; H91.90 Unspecified hearing loss, unspecified ear; Z91.81 History of falling; R53.83 Other fatigue
CPT/HCPCS: 36415; 36591; 80053; 83615; 83735; 85007; 85025; 85027; 96367; 96372; 96375; 96411; 96413; G0463; J0185; J1100; J1642; J2469; J2506; J9000; J9040; J9130; J9360; Q5101

== ENCOUNTER 2024-08-12 14:31 | Outpatient (OUT) | payer MEDICARE, SELFPAY ==
[2024-08-12 15:23] LABS: Estimated Average Glucose 126 mg/dL
[2024-08-12 15:46] LABS: Thyroid Stimulating Hormone 1.628 uIU/mL (0.358-3.740)
[2024-08-13 04:08] LABS: Vitamin B12 1558 pg/mL (232-1245)
[2024-08-13 13:07] LABS: Rapid Plasma Reagin, Quant Non Reactive titer (NonRea<1:1)
== END 2024-08-12 14:32 | disposition home or self-care (01) ==
LOC: LAB 14:32
PROVIDERS: PCP Nurse Practitioner Family; Visit Provider Psychiatry & Neurology Neurology
DX: C85.90 Non-Hodgkin lymphoma, unspecified, unspecified site (principal)
CPT/HCPCS: 36415; 82525; 82607; 83036; 84207; 84443; 86592

== ENCOUNTER 2024-08-12 14:39 | Outpatient (OUT) | payer MEDICARE, SELFPAY ==
[2024-08-12 15:42] LABS: Erythrocyte Sedimentation Rate 41 mm/hr (<=20)
[2024-08-12 15:54] LABS: Percent Iron Saturation 46.6 %
== END 2024-08-12 14:40 | disposition home or self-care (01) ==
LOC: LAB 14:40
PROVIDERS: PCP Nurse Practitioner Family; Visit Provider Internal Medicine Hematology & Oncology
DX: Z51.11 Encounter for antineoplastic chemotherapy (principal); C85.90 Non-Hodgkin lymphoma, unspecified, unspecified site; C85.11 Unspecified B-cell lymphoma, lymph nodes of head, face, and neck; R74.01 Elevation of levels of liver transaminase levels; D50.9 Iron deficiency anemia, unspecified; D64.9 Anemia, unspecified; C81.18 Nodular sclerosis Hodgkin lymphoma, lymph nodes of multiple sites; R11.2 Nausea with vomiting, unspecified; D70.1 Agranulocytosis secondary to cancer chemotherapy; Z79.899 Other long term (current) drug therapy
CPT/HCPCS: 36415; 82525; 82607; 82728; 83036; 83540; 83550; 84207; 84443; 85652; 86140; 86592

== ENCOUNTER 2024-08-25 08:55 | Outpatient (OUT) | payer MEDICARE, SELFPAY ==
--- NOTE | 2024-08-25 09:00 | CA_ITS ---
Patient Name: NABEEL TRAN MR#: [id number] : 1955 Exam Date: 08/25/2024 Ordering Doctor: FABIOLA BENDER M.D. ECHOCARDIOGRAM REPORT PROCEDURE: CA ECHO DOPPLER COMPLETE INDICATIONS: Dyspnea on exertion, Hodgkins lymphoma - chemotherapy, diabetes COMPARISON: None. DESCRIPTION: COMPLETE ECHOCARDIOGRAM Real-time transthoracic echocardiography with 2D, M-mode, spectral and color flow Doppler performed. QUALITY: Technical quality was good. LEFT VENTRICLE: Normal chamber size. Moderate concentric hypertrophy. Normal systolic function. LV EF: Normal left ventricular ejection fraction, (>55%). DIASTOLIC: Diastolic function is indeterminate. ATRIAL SEPTUM: LEFT ATRIUM: Moderate dilatation. RIGHT ATRIUM: Moderate dilatation. RIGHT VENTRICLE: Normal chamber size. Normal right ventricular systolic function. TRICUSPID VALVE: Normal mobility and thickness. No stenosis with trivial regurgitation. No evidence of pulmonary hypertension. RVSP 30 mmHg MITRAL VALVE: Mildly thickened with normal mobility. No evidence of mitral valve stenosis. There is no mitral annular calcification. Mild to moderate eccentric mitral regurgitation. AORTIC VALVE: Normal trileaflet appearance. Mildly calcified right and noncoronary cusps of the aortic valve. Mildly diminished mobility. Doppler velocity suggest mild aortic valve stenosis. DVI 0.4, REBEKAH 1.6 cm2. Mild aortic regurgitation. AORTIC ROOT: Normal diameter and appearance. PULMONIC VALVE: Normal thickness and mobility. No stenosis. No regurgitation. PERICARDIUM: No evidence of pericardial effusion. IVC: Not well visualized. PLEURA: CONCLUSION: 1. Mild concentric left ventricular hypertrophy with normal systolic function. LVEF is estimated at 60%. 2. Normal right ventricular size and systolic function. 3. Moderate biatrial dilatation. 4. Calcified aortic valve with mild stenosis and regurgitation. 5. Mild to moderate eccentric mitral regurgitation. 6. Normal right-sided pressures. Adult Echocardiography Procedure Report Left Ventricle LVEDD (3.7 - 5.6 cm): 4.62 cm LVESD (2.2 - 4.0 cm): 3.35 cm LVIVS thickness (0.6 - 1.2 cm): 1.81 cm LVPW thickness (0.5 - 1.0 cm): 1.25 cm e': 0.12 m/s E - e': 7.68 LVOT Max Gradient: 2.59 mm[Hg] LVOT Area (cm2): 0.80 m/s Peak Velocity (LVOT): 0.80 m/s Mean Velocity (LVOT): 0.54 m/s LVOT Diameter 2.24 cm Left Atrium LA Volume Index (2D A2C): 55.79 ml/m2 Left Atrium Systolic Dimension: 3.60 cm Mitral Valve MV E to A Ratio: 1.31 Mitral Valve A-Wave Peak Velocity: 0.69 m/s Mitral Valve E-Wave Peak Velocity: 0.91 m/s Right Ventricle Aorta AO Root Diam: 3.73 cm Aortic Valve AoV Area (Peak Walt): 1.55 cm2, 1.60 cm2 AoV Area (VTI): 1.63 cm2, 1.79 cm2 Deceleration Hendricks: 2.62 m/s2 Pressure Half-Time: 478.16 ms Peak Velocity(Antegrade Flow): 1.99 m/s, 2.04 m/s Peak Gradient(Antegrade Flow): 15.79 mm[Hg], 16.66 mm[Hg] Mean Velocity(Antegrade Flow): 1.33 m/s, 1.35 m/s Mean Gradient(Antegrade Flow): 8.25 mm[Hg], 8.49 mm[Hg] Velocity Time Integral: 40.33 cm, 44.26 cm Tricuspid Valve Peak Velocity (Regurgitant Flow): 2.59 m/s, 2.40 m/s Pulmonic Valve Mean Gradient: 1.71 mm[Hg] Mean Velocity: 0.60 m/s Peak Velocity: 0.96 m/s, 0.93 m/s Peak Gradient: 3.43 mm[Hg], 3.67 mm[Hg] Right Atrium Right Atrium Systolic Pressure: 48.61 ml, 48.61 ml Dictated by: Renato Staton M.D. on 08/26/2024 at 19:01 Approved by: Renato Staton M.D. on 08/26/2024 at 19:06
--- OUTSIDE RECORDS SUMMARY | 2024-08-25 09:01 | XMS_ITS | CCD ---
Author Organization [facility] Care Team Providers Care Magnet Maker Name Role Phone PHYSICIAN, DEFAULT Unavailable Unavailable [...] AILIN Attending Unavailable SAMUEL, AILIN Consulting Unavailable ELIANA BAKERELA Primary Care Unavailable ALIIN BAKER Attending Unavailable NEVILLE MATA Primary Care Unavailable SAMUEL, AILIN Consulting Unavailable SAMUEL, AILIN Admitting Unavailable ILAN TODD Attending Unavailable ILAN TODD Consulting Unavailable ILAN TODD Admitting Unavailable SAMUEL AILIN Primary Care Unavailable AMARIS WALKER Consulting Unavailable AILIN GREEN Primary Care Physician [phone] DO González Moon Primary Care Provider MD Nabeel Strange Attending Provider MD Jassi Alegria Attending Provider [phone] Peter ELLIS, Ailin Unavailable Ailin Green MD Unavailable MD Sonia Donnelly Attending Provider MEHRDAD Green Primary Care Provider [phone] Jassi Alegria Attending Unavailable Jassi Alegria Admitting Unavailable González Moon Primary Care Unavailable Nabeel Strange Admitting Unavailable Nabeel Strange Attending Unavailable Ailin Green Primary Care Unavailable Anam Donnellyorva Attending Unavailable Anam Donnellyorva Admitting Unavailable NILL, Jassi R Attending Unavailable NILL, Jassi R Attending Unavailable NILL, Jassi R Attending Unavailable NILL, Jassi R Attending Unavailable POP, Moody R Attending Unavailable POP, Moody R Attending Unavailable PETER, AILIN S Referring Unavailable NILL, Jassi R Attending Unavailable POP, Moody R Attending Unavailable Jah Damian MD Primary Care Provider [phone] FABIOLA BENDER Attending Unavailable JEROD STATON Attending Unavailable JEROD STATON Attending Unavailable Unavailable Primary Care Provider UnavailShelby Woodard DO Unavailable [phone] YANNA HARRISON Attending Unavailable DEEPA, CHRISTOPHER Attending Unavailable PETER, AILIN Referring Unavailable NAGEL, LILLIAN S Attending Unavailable NAGEL, LILLIAN S Attending Unavailable DEEPA, CHRISTOPHER Attending Unavailable DEEPA, CHRISTOPHER Attending Unavailable CLEVE QUINN Attending Unavailable DEEPA, CHRISTOPHER Referring Unavailable AUREA SANCHEZ Attending Unavailable DEEPA, CHRISTOPHER Referring Unavailable Allergies Allergy Classification Reported Allergen(s) Allergy Type Date of Onset Reaction(s) Facility (2 sources) No Known Allergies; Translations: [No Known Allergies] Propensity to adverse reactions (disorder) 7 [facility] Repository (1 source) Unable to Assess Drug allergy (disorder) 4 [facility] Repository (1 source) No Known Medication Allergies; Translations: [No Known Medication Allergies] Propensity to adverse reactions (disorder) [facility] Repository (1 source) empagliflozin; Translations: [EMPAGLIFLOZIN] Drug Allergy [address] [place] [address] Repository Medications Current Medications Medication Drug Class(es) Dates Sig (Normalized) Sig (Original) amLODIPine 10 mg oral tablet (1 source) Dihydropyridine Calcium Channel Erick Start: 01-21-2024 amLODIPine 10 mg Tab 90 tab(s), 0 Refill(s), Refills(s) 0 Start Date: 01/21/24 Status: Ordered apixaban 5 mg oral tablet (20 sources) Factor Xa Inhibitor Start: 06-15-2024 take 1 tablet by mouth in the morning Eliquis 5 MG tablet Take 5 mg by mouth in the morning and 5 mg before bedtime. 06/15/2024 Active atorvastatin 10 mg oral tablet (20 sources) HMG-CoA Reductase Inhibitor Start: 03-28-2024 End: 03-28-2025 take 1 tablet by mouth once daily atorvastatin (Lipitor) 10 MG tablet Take 10 mg by mouth Daily 03/28/2024 Active Start: 01-21-2024 atorvastatin 4 0 mg [...] hydrochloride 240 mg extended release oral capsule (20 sources) Calcium Channel Erick Start: 06-15-2024 take 1 capsule by mouth once daily, then take 1 capsule by mouth every twenty-four hours dilTIAZem CD (Cardizem CD) 240 MG 24 hr capsule Take 240 mg by mouth Daily 06/15/2024 Active Start: 06-15-2024 take 1 capsule by [facility] every twenty-four hours in the morning dilTIAZem CD (CARDIZEM CD) 240 mg 24 hr capsule Take 1 capsule (240 mg total) by mouth in the morning. 06/15/2024 Active empagliflozin 25 mg oral tablet (1 source) Sodium-Glucose Cotransporter 2 Inhibitor Start: 01-21-2024 Jardiance 25 mg oral tablet 90 tab(s), 0 Refill(s), Refills(s) 0 Start Date: 01/21/24 Status: Ordered 3 ml insulin glargine 100 unt/ml pen injector (20 sources) Insulin Analog Start: 04-25-2024 Lantus Solosta [...] Status: Ordered take 2 tablets by mouth once jeanie ly liothyronine (Cytomel) 5 MCG tablet Take 10 mcg by mouth Daily Active losartan potassium 100 mg oral tablet (20 sources) Angiotensin 2 Receptor Erick Start: 01-21-2024 take 1 tablet by mouth once daily losartan 100 mg Tab 100 mg = 1 tab(s), Oral, Daily, Refills(s) 0 Start Date: 01/21/24 Status: Ordered take 1 tablet by mouth once nicolás y losartan (Cozaar) 50 MG tablet Take 50 mg by mouth Daily Active metFORMIN hydrochloride 1000 mg oral tablet (20 sources) Biguanide Start: 01-21-2024 take 1 tablet [...] Active metoprolol tartrate 25 mg oral tablet (11 sources) beta-Adrenergic Erick Start: 07-17-2024 take 2 [...] bedtime. Active ondansetron 4 mg oral tablet (13 sources) Serotonin-3 Receptor Antagonist Start: 05-27-2024 ondansetron [...] completed, # 2 tab(s), Refills(s) 0, Pharmacy: [id number], 187, cm, 01/21/24 11:48:00 EDT, Height/Length [...] sources) Difficult venous access 06-03-2024 Episodic Other connective tissue disease (2 sources) Other symptoms and signs involving the musculoskeletal system; Translations: [Other musculoskeletal symptoms referable to limbs] 08-20-2024 Episodic Other diseases of bladder and urethra [...] ear] 05-26-2024 Episodic Other nervous system disorders (7 sources) Polyneuropathy; Translations: [Polyneuropathy, unspecified] 07-10-2024 Chronic Other nervous system disorders (1 source) H/O: brain disorder 01-21-2024 Episodic Other nervous system disorders (2 sources) Poor balance; Translations: [Other abnormalities of gait and mobility] 08-20-2024 Episodic Pulmonary heart disease (3 sources) Pulmonary [...] / UNK(Unknown) Onset: 2017 Unclassified (1 source) penitentiary (current) use of oral hypoglycemic drugs; Translations: [...] Onset: 03-28-2024 Episodic Other aftercare (1 source) penitentiary (current) use of aspirin; Translations: [CORRECTION (CURRENT) USE OF ASPIRIN] Onset: 2017 Episodic Other lower respiratory disease (3 sources) Shortness of breath; Translations: [SHORTNESS OF BREATH] Onset: 2017 Episodic Other lower respiratory disease (3 sources) Cough; Translations: [COUGH] Onset: 12-06-2020 Episodic Results Test Name Value Interpretation Reference Range Facility [facility] HEMOGLOBIN A1Con 025 Glucose [Mass/Vol] 126 mg/dL [facility] HbA1c (Bld) [Mass fraction] 6 % 4.5 - 6.2 % [facility] Comment on above: ADA RECOMMENDED LIMI T 4.0 - 6.0 ADA THERAPEUTIC TARGET < 7.0 ACTION SUGGESTED > 7.0 [facility] EMG 2 Extremitieson 07-10-20 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, motor predominant and severe Can not exclude radiculopathy [facility] NVC 9-10 Nerveson 07-10-2024 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, motor predominant and severe Can not exclude radiculopathy [facility] Healthcare Office Visiton 06-19-2024 Follow-up visit [id number] Allen Tran W 1955 M Date Provider Department Center 06/19/2024 FABIOLA SOLOMON Family History Problem Relation Age of Onset Coronary artery disease Mother Family Status - Relation Status Age at Mother Level of Service:05890 CO OFFICE/OUTPATIENT ESTABLISHED LOW MDM 20 MIN Normal [facility] Orders Onlyon 06-19-2024 Orders Only [id number] Allen Tran W 1955 M Date Provider Department Center 06/19/2024 JOSE ALFREDO GARCIA Family History Problem Relation Age of Onset Coronary artery disease Mother Family Status - Relation Status Age at Mother Normal [facility] ISTAT XRay CREon 05-29-2024 ISTAT GFR > 60.0 Normal [facility] Comment on above: Result Comment: PERF ORMED BY: [address] [place] [address] PATHOLOGIST PORTABLE MACHINE SANDER KASSI WATERS M.D. Performed By: #### I SCRE #### [address] MR head/brain wo/w conon MR head/brain wo/w con [facility] Main [place] [id number] MRI Report Signed Patient: Nabeel Tran MR#: [id number] : 1955 Acct:[id number] Age/Sex: 68 / M ADM Date: 05/29/24 Loc: MR Room: Type[facility] Attending Dr: Sonia Donnelly MD Copies to: [...] Alexis Patel M.D.05/29/2024 1:38 PM Dictation Location: [place] [address] Transcribed By: [facility] 05/29/24 1338 Dictated By: Alexis Patel II, MD 05/29/24 1325 Signed By: 05/29/24 1338 Normal [facility] No Panel InformationOrdered By: Sonia Donnelly on 05-29-2024 Bedside Estimated GFR (eGFR) > 60.0 [facility] Whole blood creatinine measu rementOrdered By: Sonia Donnelly on 05-29-2024 Creatinine [Mass/Vol] 0.8 mg/dL Normal 0.6-1.3 [facility] Comment on above: ER/ESD physician is notified/shown all ISTAT results.Critical values may be confirmed by laboratory testing ifdeemed necessary by ER attending doctor. Result Comment: ER/E SD physician is notified/shown all ISTAT results. Critical values may be confirmed by laboratory testing if deemed necessary by ER attending doctor. Performed By: #### I SCRE #### [address] XR pre/post mri xrayon 05-29 XR pre/post mri xray [facility] Main [place] [address] [place] [address] MRI Report Signed Patient: Nabeel Tran MR#: [id number] : 1955 Acct:[id number] Age/Sex: 68 / M ADM Date: 05/29/24 Loc: MR Room: Type: [facility] Attending Dr: Sonia Donnelly MD Copies to: Sonia Donnelly MD Ordering Provider: Sonia Donnelly MD Date of Service: 05/29/24 MR/MR cervical spine wo/w con: C85.90, C85.94, C85.11 ([id number]) XR/XR pre/post mri xray: C85.90, C85.94, C85.11 [...] Alexis Patel M.D.05/29/2024 1:00 PM Dictation Location: [place] [address] Transcribed By: [facility] 05/29/24 1300 Dictated By: Alexis Patel II, MD 05/29/24 1254 Signed By: 05/29/24 1300 Normal [facility] Ambulatory Visit Summaryon 0 [...] ELLIS, Moody Aranda Where: [facility] [place] [id number] Medications What How Much When Instructions Unchanged [...] choosing us for your care. Normal [facility] General Surgery Office/Clini c Noteon 04-30-2024 General Surgery Office/Clinic Note General Surgery Office/Clinic Note Chief Complaint post operative follow up HPI Staff 7 day post operative follow up post incisional biopsy right axilla adenopathy completed while inpatient at [facility]. Denies soreness, bleeding or drainage. History [...] Yes, 04/30/2024 Family History Heart disease: Mother. Annabelle Krishnamurthy [facility] Comment on above: Result Comment: Elec tronically Signed By: AIRAM ELLIS, Jassi Aranda\.br\Date and Time Signed: 04/30/24 14:51 EDT Robert 04-23-2024 L Specimen: [id number] R eceived: 04/23/24 Status: MERNA Req Num: [id number] Spec Type: Surgical Subm Dr: Jassi Alegria MD FACS Tissues: A Lymph Node - Biopsy (Needle or Incisional) (R AXILLARY LYMPH NODE BX) Procedures: CD45/2, HE/4, Gross/Micro L4, AE1-AE3, BCL-2, BCL-6, CD10, CD20, CD23, CD3, CD30/2, CD5, PAX5/2 Age/ Patient Sex Location Account Attending Physician Nabeel Tran 68/M LABELL [id number] Jassi Alegria MD FACS SPEC NUM: [id number] RECD: 04/23/24 STATUS: MERNA MONTEMAYOR NUM: [id number] RANJITH: 04/23/24-[address]: Jassi Alegria MD FACS ENTERED: 04/23/[address] [facility] [address]: SPEC TYPE: Surgical DEPT: LUANA MOYER ENTERED BY: [id number] RECV BY: [id number] ORDERED: CD45/2, HE/4, Gross/Micro L4, AE1-AE3, BCL-2, [...] single focus of atypical CD30?positive -- Specimen: [id number] Received: 04/23/24-1322 Status: MERNA Miguel Num: [id number] Spec Type: Surgical Subm Dr: Jassi Alegria MD FACS Tissues: A Lymph Node - Biopsy (Needle or Incisional) (R AXILLARY LYMPH NODE BX) Procedures: CD45/2, HE/4, Gross/Micro L4, AE1-AE3, BCL-2, BCL-6, CD10, CD20, CD23, CD3, CD30/2, CD5, PAX5/2 -- Patient: Nabeel Tran [id number] (Continued) -- Specimen: [id number] Received: 04/23/24 (Continued) Supplemental Report (Continued) Signed (signature on file) Trinity Lauren MD 05/01/24 1651 -- Specimen: [id number] Received: 04/23/24 Status: MERNA Montemayor Num: [id number] Spec Type: Surgical Subm Dr: Jassi Alegria MD FACS Tissues: A Lymph Node - Biopsy (Needle or Incisional) (R AXILLARY LYMPH NODE BX) Procedures: CD45/2, HE/4, Gross/Micro L4, AE1-AE3, BCL-2, BCL-6, CD10, CD20, CD23, CD3, CD30/2, CD5, PAX5/2 -- Patient: Nabeel Tran [id number] (Continued) -- Specimen: [id number] Received: 04/23/24-1322 (Continued) Supplemental Report (Continued) lymphocytes -See comment Addendum Signed (signature on file) Kin-Gama Lauren MD 05/14/24 1437 -- Addendum 1 Entered: 05/07/24 Supplemental for findings of Flow Cytometry report from [facility] -No significant lymphoid immunophenotypic abnormalities detected [...] (more content not included)... Normal [facility] Robert 04-11-2024 L Specimen: [id number] R eceived: 04/14/24 Status: MERNA Montemayor Num: [id number] Spec Type: Surgical Subm Dr: Nabeel Strange MD Tissues: A Lymph Node - Biopsy (Needle or Incisional) (R AXILLA LYMPH NODE) B Gross Only (LYMPH NODE) Procedures: HE/2, Gross/Micro L4, Level 1 Gross Age/ Patient Sex Location Account Attending Physician Nabeel Tran 68/M LABELL [id number] Nabeel Strange MD SPEC NUM: [id number] RECD: 04/14/24 STATUS: MERNA MONTEMAYOR NUM: [id number] RANJITH: 04/11/24 DR: Nabeel Strange MD ENTERED: 04/14/[address] [facility] [address]: Gregg [place] SPEC TYPE: Surgical DEPT: LUANA MOYER ENTERED BY: [id number] RECV BY: [id number] ORDERED: HE/2, Gross/Micro L4, Level 1 Gross [...] sample quality / poor viability -- Specimen: [id number] Received: 04/14/24 Status: MERNA Montemayor Num: [id number] Spec Type: Surgical Subm Dr: Nabeel Strange MD Tissues: A Lymph Node - Biopsy (Needle or Incisional) (R AXILLA LYMPH NODE) B Gross Only (LYMPH NODE) Procedures: HE/2, Gross/Micro L4, Level 1 Gross -- Patient: Nabeel Tran [id number] (Continued) -- Specimen: [id number] Received: 04/14/24 (Continued) Supplemental Report (Continued) Signed (signature on file) Sandra Laurne MD 04/17/24 1127 -- Specimen: [id number] Received: 04/14/24 Status: MERNA Montemayor Num: [id number] Spec Type: Surgical Subm Dr: Nabeel Strange MD Tissues: A Lymph Node - Biopsy (Needle or Incisional) (R AXILLA LYMPH NODE) B Gross Only (LYMPH NODE) Procedures: HE/2, Gross/Micro L4, Level 1 Gross -- Patient: Nabeel Tran [id number] (Continued) -- Specimen: [id number] Received: 04/14/24 (Continued) Supplemental Report (Continued) Addendum Signed (signature on file)Kavon Lauren MD 04/18/24 1734 -- Pathological Diagnosis [...] to an outside facility. DM -- Specimen: [id number] Received: 04/14/24104 Status: MERNA Montemayor Num: [id number] Spec Type: Surgical Subm Dr: Nabeel Strange MD Tissues: A Lymph Node - Biopsy (Needle or Incisio (more content not included)... Normal [facility] Office Visiton 03-28-2024 Follow-up visit [id number] Allen Tran W 1955 M Date Provider Department Center 03/28/2024 JEROD BANKS Family History Problem Relation Age of Onset Coronary artery disease Mother Family Status - Relation Status Age at Mother Level of Service:23224 CO OFFICE/OUTPATIENT ESTABLISHED MOD MDM 30 MIN Normal [facility] Office Visiton 02-25-2024 Follow-up visit [id number] JuanyAllen nielsen W 1955 M Date Provider Department Center 02/25/2024 JEROD BANKS Family History Problem Relation Age of Onset Coronary artery disease Mother Family Status - Relation Status Age at Mother Level of Service:58600 CO OFFICE/OUTPATIENT NEW MODERATE MDM 45 MINUTES Normal [facility] Insurance Correspondenceon 0 01-30-2024 Insurance Correspondence [id number]#1.00TIFF Normal [facility] Consent for Procedure/Surger yon 01-22-2024 Consent for Procedure/Surgery [id number]#1.00TIFF Normal [facility] Physician Referralon 024 Physician Referral [id number]#1.00TIFF Normal [facility] Screenson 01-22-2024 Screens [id number]#1.00TIFF Normal [facility] Ambulatory Visit Summaryon 0 01-21-2024 Ambulatory Visit Summary NABEEL TRAN :1955 Visit Date:01/21/2024 Ambulatory Visit Instructions Your Diagnosis BPH with obstruction/lower urinary tract symptoms OAB (overactive bladder) Glucosuria Screening PSA (prostate specific antigen) Your Care Team Attending Physician - DONN ELLIS, Moody Aranda Primary Care Physician - AILIN GREEN [...] Where: [facility] [address], [place] [address]- Medications What When Instructions Unchanged amlodipine (amLODIPine [...] (ur (more content not included)... Normal [facility] Patient Educationon 01-21-20 Patient Education Urology [...] Follow these instructions at home: ? Take nsfp-wgh-ekfnysq and prescription medicines only as told by [...] medicine (more content not included)... Normal [facility] INSULINon 08-27-2021 Insulin 19.2 uIU/mL Normal 2.6-24.9 [facility] Comment on above: Performed By: #### I NSULIN #### [facility] [address] [place] [address] Dr. Forrest Lauren CBC AUTO DIFFon 08-26-2021 BASO # 0.1 103/ul Normal 0.0-0.1 [facility] Comment on above: Performed By: #### P SASC #### [facility] [address] [place] [address] Dr. Forrest Lauren Basophils/100 WBC (Bld) 0.8 % Normal 0.2-2.0 [facility] Comment on above: Performed By: #### P SASC #### [facility] [address] [place] [address] Dr. Forrest Lauren EO # 0.4 103/ul Normal 0.0-0.7 [facility] Comment on above: Performed By: #### P SASC #### [facility] [address] [place] [address] Dr. Forrest Lauren Eosinophils/100 WBC (Bld) 4.8 % Normal 0.9-7.0 [facility] Comment on above: Performed By: #### P SASC #### [facility] [address] [place] [address] Dr. Forrest Lauren Erythrocyte distribution width (RBC) [Ratio] 12.7 % Normal 11.0-15.0 [facility] Comment on above: Performed By: #### P SASC #### [facility] [address] [place] [address] Dr. Forrest Lauren Hematocrit (Bld) [Volume fraction] 48.3 % Normal 42.0-54.0 [facility] Comment on above: Performed By: #### P SASC #### [facility] [address] [place] [address] Dr. Forrest Lauren Hemoglobin (Bld) [Mass/Vol] 16.4 g/dL Normal 14.0-18.0 [facility] Comment on above: Performed By: #### P SASC #### [facility] [address] [place] [address] Dr. Forrest Lauren IG # 0.05 10e3/ul Critically high 0.00-0.03 [facility] Comment on above: Performed By: #### P SASC #### [facility] [address] [place] [address] Dr. Forrest Lauren IG % 0.6 % Critically high 0.0-0.5 [facility] Comment on above: Performed By: #### P SASC #### [facility] [address] [place] [address] Dr. Forrest Lauren LYMPH # 2.0 103/ul Normal 1.2-3.8 [facility] Comment on above: Performed By: #### P SASC #### [facility] [address] [place] [address] Dr. Forrest Lauren Lymphocytes/100 WBC (Bld) 22.6 % Normal 20.5-60.0 [facility] Comment on above: Performed By: #### P SASC #### [facility] [address] [place] [address] Dr. Forrest Lauren MANUAL DIFF REQ NO Normal [facility] Comment on above: Performed By: #### P SASC #### [facility] [address] [place] [address] Dr. Forrest Laurne MCH (RBC) [Entitic mass] 29.8 pg Normal 25.9-34.0 [facility] Comment on above: Performed By: #### P SASC #### [facility] [address] [place] [address] Dr. Forrest Lauren MCHC (RBC) [Mass/Vol] 34.0 g/dL Normal 29.9-35.2 [facility] Comment on above: Performed By: #### P SASC #### [facility] [address] [place] [address] Dr. Forrest Lauren MCV (RBC) [Entitic vol] 87.8 fL Normal 80.0-94.0 [facility] Comment on above: Performed By: #### P SASC #### [facility] [address] [place] [address] Dr. Forrest Lauren MONO # 0.7 103/ul Normal 0.3-0.8 [facility] Comment on above: Performed By: #### P SASC #### [facility] [address] [place] [address] [address] Forrest Lauren Monocytes/100 WBC (Bld) 8.0 % Normal 1.7-12.0 [facility] Comment on above: Performed By: #### P SASC #### [facility] [address] [place] [address] [address] Forrest Lauren NEUT # 5.7 103/ul Normal 1.4-6.5 [facility] Comment on above: Performed By: #### P SASC #### [facility] [address] [place] [address] Dr. Forrest Lauren Neutrophils/100 WBC (Bld) 63.2 % Normal 43.0-75.0 [facility] Comment on above: Performed By: #### P SASC #### [facility] [address] [place] [address] Dr. Forrest Lauren Platelet mean volume (Bld) [Entitic vol] 9.7 fL Normal 9.5-13.5 [facility] Comment on above: Performed By: #### P SASC #### [facility] [address] [place] [address] Dr. Forrest Lauren PLT 242 103/ul Normal 150-450 [facility] Comment on above: Performed By: #### P SASC #### [facility] [address] [place] [address] Dr. Forrest Lauren RBC 5.50 106/ul Normal 4.70-6.10 [facility] Comment on above: Performed By: #### P SASC #### [facility] [address] [place] [address] Dr. Forrest Lauren WBC 9.0 103/ul Normal 4.0-11.0 [facility] Comment on above: Performed By: #### P SASC #### [facility] [address] [place] [address] Dr. Forrest Lauren GLYCOHEMOGLOBIN A1Con 2021 ADA RECOMMENDATION ADA THERAPEUTIC TARG ET 6.0 - 7.0 ACTION SUGGESTED > 7.0 Normal [facility] Comment on above: Performed By: #### A 1C #### [facility] [address] [place] [address] Dr. Forrest Lauren Glucose [Mass/Vol] 194 mg/dL Normal [facility] Comment on above: Performed By: #### A 1C #### [facility] [address] [place] [address] [address] Forrest Lauren HbA1c (Bld) [Mass fraction] 8.4 % Critically high <=6.0 [facility] Comment on above: Performed By: #### A 1C #### [facility] [address] [place] [address] Dr. Forrest Lauren LIPID PROFILEon 08-26-2021 CHOL-HDL RATIO NORM SEE BELOW Normal [facility] Comment on above: Result Comment: 3.3 - 4.4 LOW RISK 4.4 - 7.1 AVERAGE RISK 7.1 - 11.0 MODERATE RISK >11.0 HIGH RISK Performed By: #### P SASC #### [facility] [address] [place] [address] Dr. Forrest Lauren Cholesterol [Mass/Vol] 117 mg/dL Normal <=200 [facility] Comment on above: Performed By: #### P SASC #### [facility] [address] [place] [address] Dr. Forrest Lauren Cholesterol in HDL [Mass/Vol] 43 mg/dL Normal [facility] Comment on above: Performed By: #### P SASC #### [facility] [address] [place] [address] Dr. Forrest Lauren Cholesterol in LDL [Mass/Vol] 45.6 mg/dL Normal [facility] Comment on above: Performed By: #### P SASC #### [facility] [address] [place] [address] Dr. Forrest Lauren Cholesterol.total/C holesterol in HDL [Mass ratio] 2.7 {ratio} Normal [facility] Comment on above: Performed By: #### P SASC #### [facility] [address] [address] [address] Forrest Lauren HDL NORMAL > or = 60 mg/dl - LO W CARDIOVASCULAR RISK <40 mg/dl - HIGH CARDIOVASCULAR RISK Normal [facility] Comment on above: Performed By: #### P SASC #### [facility] [address] [address] [address] Forrest Lauren LDL CALC NORMAL SEE BELOW Normal [facility] Comment on above: Result Comment: <100 mg/dl OPTIMAL 100 - 129 mg/dl NEAR OR ABOVE OPTIMAL 130 - 159 mg/dl BORDERLINE HIGH 160 - 189 mg/dl HIGH >190 mg/dl VERY HIGH Performed By: #### P SASC #### [facility] [address] [address] [address] Forrest Lauren Triglyceride [Mass/Vol] 142 mg/dL Normal <=150 [facility] Comment on above: Performed By: #### P SASC #### [facility] [address] [address] [address] Forrest Lauren VLDL CALC 28.4 mg/dL Normal [facility] Comment on above: Performed By: #### P SASC #### [facility] [address] [address] [address] Forrest Lauren PROF 14(COMP METB)on 022 Albumin [Mass/Vol] 4.1 g/dL Normal 3.5-5.0 [facility] Comment on above: Performed By: #### P SASC #### [facility] [address] [address] [address] Forrest Lauren Albumin/Globulin [Mass ratio] 1.2 {ratio} Normal [facility] Comment on above: Performed By: #### P SASC #### [facility] [address] [address] [address] Forrest Lauren ALP [Catalytic activity/Vol] 82 U/L Normal 38-126 [facility] Comment on above: Performed By: #### P SASC #### [facility] [address] [address] [address] Forrest Lauren ALT [Catalytic activity/Vol] 38 U/L Normal 21-72 [facility] Comment on above: Performed By: #### P SASC #### [facility] [address] [address] [address] Forrest Lauren Anion gap [Moles/Vol] 12.7 mmol/L Normal [facility] Comment on above: Performed By: #### P SASC #### [facility] [address] [address] [address] Forrest Lauren AST [Catalytic activity/Vol] 18 U/L Normal 17-59 [facility] Comment on above: Performed By: #### P SASC #### [facility] [address] [address] [address] Forrest Lauren Bilirubin [Mass/Vol] 1.2 mg/dL Normal 0.2-1.3 [facility] Comment on above: Performed By: #### P SASC #### [facility] [address] [address] [address] Forrest Lauren Calcium [Mass/Vol] 9.7 mg/dL Normal 8.4-10.2 [facility] Comment on above: Performed By: #### P SASC #### [facility] [address] [address] [address] Forrest Lauren Chloride [Moles/Vol] 102 mmol/L Normal 98-107 [facility] Comment on above: Performed By: #### P SASC #### [facility] [address] [address] [address] Forrest Lauren CO2 [Moles/Vol] 30.6 mmol/L Critically high 22.0-30.0 [facility] Comment on above: Performed By: #### P SASC #### [facility] [address] [address] [address] Forrest Lauren Creatinine [Mass/Vol] 1.09 mg/dL Normal 0.66-1.25 [facility] Comment on above: Performed By: #### P SASC #### [facility] [address] [address] [address] Forrest Lauren EGFR-AF PUERTO RICAN >60 Normal >=60 [facility] Comment on above: Performed By: #### P SASC #### [facility] [address] [address] [address] Forrest Lauren EGFR-NON AF PUERTO RICAN >60 Normal >=60 [facility] Comment on above: Performed By: #### P SASC #### [facility] [address] [address] [address] Forrest Lauren Globulin (S) [Mass/Vol] 3.4 g/dL Normal [facility] Comment on above: Performed By: #### P SASC #### [facility] [address] [address] [address] Forrest Lauren Glucose [Mass/Vol] 238 mg/dL Critically high 74-106 [facility] Comment on above: Performed By: #### P SASC #### [facility] [address] [address] [address] Forrest Lauren Potassium [Moles/Vol] 4.3 mmol/L Normal 3.4-5.0 [facility] Comment on above: Performed By: #### P SASC #### [facility] [address] [address] [address] Forrest Lauren Protein [Mass/Vol] 7.5 g/dL Normal 6.1-8.2 [facility] Comment on above: Performed By: #### P SASC #### [facility] [address] [address] [address] Forrest Lauren Sodium [Moles/Vol] 141 mmol/L Normal 137-145 [facility] Comment on above: Performed By: #### P SASC #### [facility] [address] [address] [address] Forrest Lauren Urea nitrogen [Mass/Vol] 20.0 mg/dL Normal 9.0-20.0 [facility] Comment on above: Performed By: #### P SASC #### [facility] [address] [address] [address] Forrest Lauren Urea nitrogen/Creatinine [Mass ratio] 18.3 mg/mg Normal [facility] Comment on above: Performed By: #### P SASC #### [facility] [address] [place] [address] Dr. Forrest Lauren URIC ACID SERUMon 08-26-2021 Urate [Mass/Vol] 4.8 mg/dL Normal 3.5-8.5 [facility] Comment on above: Performed By: #### P SASC #### [facility] [address] [place] [address] Dr. Forrest Lauren Covid-19 PCR (CVDTB)on Sample Type Test performed using RT-PCR from a nasopharyngeal collected specimen. Normal [facility] Comment on above: Performed By: #### P SASC #### [facility] [address] [place] [address] Dr. Forrest Lauren SARS-CoV-2 (COVID-19) RNA MERA+probe Ql (Unsp spec) Detected Abnormal NOT DETECTED [facility] Comment on above: Result Comment: This test is not yet approved or cleared by the [place] FDA. When there are no FDA-approved or cleared tests available, and other criteria are met, FDA can make tests available under an emergency access mechanism called an Emergency Use Authorization (EUA). The EUA for this test is supported by the [place] of Health and Human Service's (HHS's) declaration [...] used). Performed By: #### P SASC #### [facility] [address] [place] [address] Dr. Forrest Lauren POINT OF CARE GLUCOSEon Glucose [Mass/Vol] 255 mg/dL Critically high 74-106 [facility] Comment on above: Performed By: #### P OCGLUC #### [facility] [address] [place] [address] Matias Rivas XR CHEST 1 Von 12-07-2020 [...] AMARIS WALKER Date: 2020-12-06 22:04 Normal [facility] INSULINon 10-02-2020 Insulin 16.9 uIU/mL Normal 2.6-24.9 [facility] Comment on above: Performed By: #### P SASC #### [facility] [address] [place] [address] Dr. Forrest Lauren CBC AUTO DIFFon 10-01-2020 BASO # 0.1 103/ul Normal 0.0-0.1 [facility] Comment on above: Performed By: #### C BC #### [facility] [address] [place] [address] Matias Evelyn Basophils/100 WBC (Bld) 0.6 % Normal 0.2-2.0 [facility] Comment on above: Performed By: #### C BC #### [facility] [address] [place] [address] Matiaswali Rivas EO # 0.4 103/ul Normal 0.0-0.7 [facility] Comment on above: Performed By: #### C BC #### [facility] [address] [place] [address] Matias Evelyn Eosinophils/100 WBC (Bld) 4.2 % Normal 0.9-7.0 [facility] Comment on above: Performed By: #### C BC #### [facility] [address] [place], [place] [id number] Matiaswali Rivas Erythrocyte distribution width (RBC) [Ratio] 13.1 % Normal 11.0-15.0 [facility] Comment on above: Performed By: #### C BC #### [facility] [address] [place] [address] Matias Evelyn Hematocrit (Bld) [Volume fraction] 50.2 % Normal 42.0-54.0 [facility] Comment on above: Performed By: #### C BC #### [facility] [address] [place], [place] [id number] Matias Rivas Hemoglobin (Bld) [Mass/Vol] 16.6 g/dL Normal 14.0-18.0 [facility] Comment on above: Performed By: #### C BC #### [facility] [address] [place], [place] [id number] Matiaswali Rivas IG # 0.05 10e3/ul Critically high 0.00-0.03 [facility] Comment on above: Performed By: #### C BC #### [facility] [address] [place] [address] Matias Rivas IG % 0.6 % Critically high 0.0-0.5 [facility] Comment on above: Performed By: #### C BC #### [facility] [address] [place] [address] Matias Evelyn LYMPH # 1.9 103/ul Normal 1.2-3.8 [facility] Comment on above: Performed By: #### C BC #### [facility] [address] [place] [address] Matias Rivas Lymphocytes/100 WBC (Bld) 22.2 % Normal 20.5-60.0 [facility] Comment on above: Performed By: #### C BC #### [facility] [address] [place], [place] [id number] Matias Rivas MANUAL DIFF REQ NO Normal [facility] Comment on above: Performed By: #### C BC #### [facility] [address] [place] [address] Matias Rivas MCH (RBC) [Entitic mass] 29.4 pg Normal 25.9-34.0 [facility] Comment on above: Performed By: #### C BC #### [facility] [address] [place] [address] Matias Rivas MCHC (RBC) [Mass/Vol] 33.1 g/dL Normal 29.9-35.2 [facility] Comment on above: Performed By: #### C BC #### [facility] [address], [place] [address] Matias Evelyn MCV (RBC) [Entitic vol] 88.8 fL Normal 80.0-94.0 [facility] Comment on above: Performed By: #### C BC #### [facility] [address] [id number] Matias Evelyn MONO # 0.7 103/ul Normal 0.3-0.8 [facility] Comment on above: Performed By: #### C BC #### [facility] [address] [place], [place] [id number] Matias Evelyn Monocytes/100 WBC (Bld) 7.7 % Normal 1.7-12.0 [facility] Comment on above: Performed By: #### C BC #### [facility] [address] [place] [address] Matias Evelyn NEUT # 5.7 103/ul Normal 1.4-6.5 [facility] Comment on above: Performed By: #### C BC #### [facility] [address] [place], [place] [id number] Matias Evelyn Neutrophils/100 WBC (Bld) 64.7 % Normal 43.0-75.0 [facility] Comment on above: Performed By: #### C BC #### [facility] [address] [place], [place] [phone] Matias Evelyn Platelet mean volume (Bld) [Entitic vol] 10.4 fL Normal 9.5-13.5 [facility] Comment on above: Performed By: #### C BC #### [facility] [address] [place], [place] [phone] Matias Evelyn PLT 243 103/ul Normal 150-450 [facility] Comment on above: Performed By: #### C BC #### [facility] [address] [place], [place] [address] Matias Evelyn RBC 5.65 106/ul Normal 4.70-6.10 [facility] Comment on above: Performed By: #### C BC #### [facility] [address] [place], [place] [id number] Matias Evelyn WBC 8.7 103/ul Normal 4.0-11.0 [facility] Comment on above: Performed By: #### C BC #### [facility] [address] [id number] Matias Rivas FREE THYROXINE INDEX T7on FTI 2.11 Normal [facility] Comment on above: Performed By: #### U TARIK, CMP, T7, PSASC, TSH, LIPID #### [facility] [address] [address] Matias Rivas T3U 34.0 % Normal 23.5-40.5 [facility] Comment on above: Performed By: #### U TARIK, CMP, T7, PSASC, TSH, LIPID #### [facility] [address] [address] Matias Rivas T4 [Mass/Vol] 6.20 ug/dL Normal 5.53-11.00 [facility] Comment on above: Performed By: #### U TARIK, CMP, T7, PSASC, TSH, LIPID #### [facility] [address] [place], [place] [address] Matias Rivas GLYCOHEMOGLOBIN A1Con 2020 ADA RECOMMENDATION ADA THERAPEUTIC TARG ET 6.0 - 7.0 ACTION SUGGESTED > 7.0 Normal [facility] Comment on above: Performed By: #### A 1C #### [facility] [address] [id number] Matias Rivas Glucose [Mass/Vol] 266 mg/dL Normal [facility] Comment on above: Performed By: #### A 1C #### [facility] [address] [address] Matias Rivas HbA1c (Bld) [Mass fraction] 10.9 % Critically high <=6.0 [facility] Comment on above: Performed By: #### A 1C #### [facility] [address] [id number] Matias Rivas LIPID PROFILEon 10-01-2020 CHOL-HDL RATIO NORM SEE BELOW Normal [facility] Comment on above: Result Comment: 3.3 - 4.4 LOW RISK 4.4 - 7.1 AVERAGE RISK 7.1 - 11.0 MODERATE RISK >11.0 HIGH RISK Performed By: #### P SASC #### [facility] [address] [address] [address] Forrest Lauren Cholesterol [Mass/Vol] 110 mg/dL Normal <=200 [facility] Comment on above: Performed By: #### P SASC #### [facility] [address] [address] [address] Forrest Lauren Cholesterol in HDL [Mass/Vol] 36 mg/dL Normal [facility] Comment on above: Performed By: #### P SASC #### [facility] [address] [address] [address] Forrest Lauren Cholesterol in LDL [Mass/Vol] 36.2 mg/dL Normal [facility] Comment on above: Performed By: #### P SASC #### [facility] [address] [place] [address] Dr. Forrest Lauren Cholesterol.total/C holesterol in HDL [Mass ratio] 3.1 {ratio} Normal [facility] Comment on above: Performed By: #### P SASC #### [facility] [address] [place] [address] Dr. oFrrest Lauren HDL NORMAL > or = 60 mg/dl - LO W CARDIOVASCULAR RISK <40 mg/dl - HIGH CARDIOVASCULAR RISK Normal [facility] Comment on above: Performed By: #### P SASC #### [facility] [address] [place] [address] Dr. Forrest Lauren LDL CALC NORMAL SEE BELOW Normal [facility] Comment on above: Result Comment: <100 mg/dl OPTIMAL 100 - 129 mg/dl NEAR OR ABOVE OPTIMAL 130 - 159 mg/dl BORDERLINE HIGH 160 - 189 mg/dl HIGH >190 mg/dl VERY HIGH Performed By: #### P SASC #### [facility] [address] [place] [address] Dr. Forrest Lauren Triglyceride [Mass/Vol] 189 mg/dL Critically high <=150 [facility] Comment on above: Performed By: #### P SASC #### [facility] [address] [address] [address] Forrest Lauren VLDL CALC 37.8 mg/dL Normal [facility] Comment on above: Performed By: #### P SASC #### [facility] [address] [address] [address] Forrest Lauren PROF 14(COMP METB)on 021 Albumin [Mass/Vol] 4.1 g/dL Normal 3.5-5.0 [facility] Comment on above: Performed By: #### U TARIK, CMP, T7, PSASC, TSH, LIPID #### [facility] [address] [address] Matias Evelyn Albumin/Globulin [Mass ratio] 1.2 {ratio} Normal [facility] Comment on above: Performed By: #### U TARIK, CMP, T7, PSASC, TSH, LIPID #### [facility] [address] [place] [address] Matias Evelyn ALP [Catalytic activity/Vol] 80 U/L Normal 38-126 [facility] Comment on above: Performed By: #### U TARIK, CMP, T7, PSASC, TSH, LIPID #### [facility] [address] [address] Matias Evelyn ALT [Catalytic activity/Vol] 42 U/L Normal 21-72 [facility] Comment on above: Performed By: #### U TARIK, CMP, T7, PSASC, TSH, LIPID #### [facility] [address] [address] Matias Evelyn Anion gap [Moles/Vol] 12.3 mmol/L Normal [facility] Comment on above: Performed By: #### U TARIK, CMP, T7, PSASC, TSH, LIPID #### [facility] [address] [address] Matias Evelyn AST [Catalytic activity/Vol] 24 U/L Normal 17-59 [facility] Comment on above: Performed By: #### U TARIK, CMP, T7, PSASC, TSH, LIPID #### [facility] [address] [address] Matias Evelyn Bilirubin [Mass/Vol] 1.3 mg/dL Normal 0.2-1.3 [facility] Comment on above: Performed By: #### U TARIK, CMP, T7, PSASC, TSH, LIPID #### [facility] [address] [address] Matias Evelyn Calcium [Mass/Vol] 9.3 mg/dL Normal 8.4-10.2 [facility] Comment on above: Performed By: #### U TARIK, CMP, T7, PSASC, TSH, LIPID #### [facility] [address] [address] Matias Evelyn Chloride [Moles/Vol] 103 mmol/L Normal 98-107 [facility] Comment on above: Performed By: #### U TARIK, CMP, T7, PSASC, TSH, LIPID #### [facility] [address] [address] Matias Evelyn CO2 [Moles/Vol] 30.0 mmol/L Normal 22.0-30.0 [facility] Comment on above: Performed By: #### U TARIK, CMP, T7, PSASC, TSH, LIPID #### [facility] [address] [address] Matias Evelyn Creatinine [Mass/Vol] 1.20 mg/dL Normal 0.66-1.25 [facility] Comment on above: Performed By: #### U TARIK, CMP, T7, PSASC, TSH, LIPID #### [facility] [address] [address] Matias Evelyn EGFR-AF PUERTO RICAN >60 Normal >=60 [facility] Comment on above: Performed By: #### U TARIK, CMP, T7, PSASC, TSH, LIPID #### [facility] [address] [address] Matias Evelyn EGFR-NON AF PUERTO RICAN >60 Normal >=60 [facility] Comment on above: Performed By: #### U TARIK, CMP, T7, PSASC, TSH, LIPID #### [facility] [address] [address] Matias Evelyn Globulin (S) [Mass/Vol] 3.5 g/dL Normal [facility] Comment on above: Performed By: #### U TARIK, CMP, T7, PSASC, TSH, LIPID #### [facility] [address] [address] Matias Evelyn Glucose [Mass/Vol] 269 mg/dL Critically high 74-106 [facility] Comment on above: Performed By: #### U TARIK, CMP, T7, PSASC, TSH, LIPID #### [facility] [address] [place] [address] Matias Evelyn Potassium [Moles/Vol] 4.3 mmol/L Normal 3.4-5.0 [facility] Comment on above: Performed By: #### U TARIK, CMP, T7, PSASC, TSH, LIPID #### [facility] [address] [place] [address] Matias Evelyn Protein [Mass/Vol] 7.6 g/dL Normal 6.1-8.2 [facility] Comment on above: Performed By: #### U TARIK, CMP, T7, PSASC, TSH, LIPID #### [facility] [address] [place] [address] Matias Evelyn Sodium [Moles/Vol] 141 mmol/L Normal 137-145 [facility] Comment on above: Performed By: #### U TARIK, CMP, T7, PSASC, TSH, LIPID #### [facility] [address] [place] [address] Matias Evelyn Urea nitrogen [Mass/Vol] 17.0 mg/dL Normal 9.0-20.0 [facility] Comment on above: Performed By: #### U TARIK, CMP, T7, PSASC, TSH, LIPID #### [facility] [address] [place] [address] Matias Evelyn Urea nitrogen/Creatinine [Mass ratio] 14.2 mg/mg Normal [facility] Comment on above: Performed By: #### U TARIK, CMP, T7, PSASC, TSH, LIPID #### [facility] [address] [place] [address] Matias Evelyn TSHon 10-01-2020 TSH 1.574 uIU/mL Normal 0.470-4.68 0 [facility] Comment on above: Performed By: #### P SASC #### [facility] [address] [address] [address] Forrest Lauren TSH RANGE SEE BELOW Normal [facility] Comment on above: Result Comment: <0.3 4 UIU/ml HYPERTHYROID 0.34-5.60 UIU/ml EUTHYROID >5.60 UIU/ml HYPOTHYROID Performed By: #### P SASC #### [facility] [address] [address] [address] Forrest Lauren URIC ACID SERUMon 10-01-2020 Urate [Mass/Vol] 4.8 mg/dL Normal 3.5-8.5 [facility] Comment on above: Performed By: #### P SASC #### [facility] [address] [place] [address] Dr. Forrest Lauren Cardiovascular Lab Reporton 08-03-2017 Cardiovascular Lab Report [facility] MR #: [id number] Physician: Jerod Miller M.D.Medicine Service Date: 2017Division of Birthdate: 6Cardiology Room #: [facility] [place], [place] [address] Fax Cardiovascular Laboratory ReportINDICATION: Nabeel Tran is [...] the right internal jugular vein and a 6-Mexican x 11cm sheath was placed. A 6-Mexican Griffith catheter was used for right heartcatheterization with measurement of pressures and calculation of cardiacoutput using the estimated Luke method. Griffith catheter was removed.Using ultrasound guidance and micropuncture technique, access was obtainedin the left radial artery and a 6-Mexican x 11 cm Hydrophilic sheath wasadvanced. Verapamil [...] 08/02/2017/02:42 P/Jerod Staton M.D.Date Trans: 08/03/2017 11:29 A/[id number]: Neville Mata D.O. [address] [facility] [address] [facility] Vital Signs Date Time Vital Sign Value Performing Clinician Faci lity 08-07-2024 10:05-0500 Body mass index (BMI) [Ratio] 23.57 kg/m2 Christopher Deepa DO Work Phone: [facility] [employer] 08-07-2024 10:05-0500 Body weight 83.28 kg [facility] Work [facility] 08-07-2024 10:05-0500 Diastolic blood pressure 62 mm[Hg] [facility] Work Phone: [facility] 08-07-2024 10:05-0500 Heart rate 74 /min [facility] Work Phone: [facility] [employer] 08-07-2024 10:05-0500 SaO2% (BldA) [Mass fraction] 96 % [facility] Work Phone: [facility] 08-07-2024 10:05-0500 Systolic blood pressure 90 mm[Hg] [facility] Work Phone: [facility] 07-29-2024 09:12-0500 Body height 188 cm Regis Ibarra MD Work Phone: [facility] 07-29-2024 09:12-0500 Body mass index (BMI) [Ratio] 22.7 kg/m2 Regis Ibarra MD Work Phone: [facility] 07-29-2024 09:12-0500 Body temperature 97.3 [degF] Regis Ibarra MD Work Phone: [facility] 07-29-2024 09:12-0500 Body weight 80.2 kg Regis Ibarra MD Work Phone: [facility] 06-17-2024 12:25-0500 Body height 188 cm Christtorito Arenas DO Work Phone: [facility] 06-17-2024 12:25-0500 Body mass index (BMI) [Ratio] 20.29 kg/m2 Christopher Deepa DO Work Phone: [facility] 06-17-2024 12:25-0500 Body weight 71.67 kg Christopher Deepa DO Work Phone: [facility] 06-17-2024 12:25-0500 Diastolic blood pressure 75 mm[Hg] Favianopher Deepa DO Work Phone: [facility] 06-17-2024 12:25-0500 Heart rate 98 /min Christopher Deepa DO Work Phone: [facility] 06-17-2024 12:25-0500 SaO2% (BldA) [Mass fraction] 93 % Elaner Deepa DO Work Phone: [facility] 06-17-2024 12:25-0500 Systolic blood pressure 118 mm[Hg] Favianopher Deepa DO Work Phone: [facility] 06-03-2024 09:54-0400 Diastolic blood pressure 68 mm[Hg] Jassi NILL [facility] 06-03-2024 09:54-0400 Heart rate 105 /min Jassi NILL [facility] 06-03-2024 09:54-0400 Respiratory rate 16 /min Jassi NILL [facility] 06-03-2024 09:54-0400 Systolic blood pressure 103 mm[Hg] Jassi NILL [facility] 05-29-2024 06:42-0400 Body height 190.5 cm DO González Harrispetra Work Phone: [facility] 05-29-2024 06:42-0400 Body weight 78.47 kg DO González Tamocopetra Work Phone: [facility] 01-21-2024 11:44-0400 Blood Pressure Location Moody POP [facility] 01-21-2024 11:44-0400 Diastolic blood pressure 72 mm[Hg] Moody POP [facility] 01-21-2024 11:44-0400 Heart rate 70 /min Moody POP [facility] 01-21-2024 11:44-0400 Respiratory rate 16 /min Moody POP [facility] 01-21-2024 11:44-0400 Systolic blood pressure 108 mm[Hg] [facility] Encounters Encounter Date Encounter Type Care Provider Facility Start: 08-22-2024 End: 08-22-2024 Bamboo flowsheet Aurea Valeroy CHECK CLERK [facility] Start: 08-22-2024 End: 08-22-2024 Bamboo flowsheet Aurea Sybley CHECK CLERK [facility] Start: 08-22-2024 End: 08-22-2024 ambulatory Aurea Valeroy CHECK CLERK [facility] Comment on above: Polyneuropathy (Prim benoit Dx); Poor balance; Weakness of both lower extremities Start: 08-20-2024 End: 08-20-2024 ambulatory Cleve Quinn PT Work Phone: [facility] Comment on above: Polyneuropathy (Prim benoit Dx); Poor balance; Weakness of both lower extremities Start: 08-20-2024 End: 08-20-2024 Bamboo flowsheet Cleve Quinn PT Work Phone: [facility] Start: 08-20-2024 End: 08-20-2024 Bamboo flowsheet Cleve Quinn PT Work Phone: [facility] Start: 08-15-2024 End: 08-15-2024 Telephone encounter Regis Ibarra MD Work Phone: [facility] Start: 08-13-2024 End: 08-13-2024 Telephone encounter Regis Ibarra MD Work Phone: [place] [facility] Comment on above: Need office notes fa xed Start: 08-12-2024 End: 08-12-2024 Clinisync Result Encounter Christophedward Arenas DO Work Phone: [facility] Unsolicited Start: 08-12-2024 End: 08-12-2024 Clinisync Result Encounter Christopher Deepa DO Work Phone: [facility] Unsolicited Start: 08-12-2024 End: 08-12-2024 Telephone encounter Regis Ibarra MD Work Phone: [facility] Start: 08-07-2024 End: 08-07-2024 Bamboo flowsheet Christopher Deepa DO Work Phone: [facility] [address] Start: 08-07-2024 End: 08-07-2024 Bamboo flowsheet Christopher Deepa DO Work Phone: [facility] [address] Start: 08-07-2024 End: 08-07-2024 Office outpatient visit 25 minutes Christopher Deepa DO Work Phone: [facility] [address] Comment on above: Lymphoma, unspecifie d body region, unspecified lymphoma type (CMS/HCC) (Primary Dx); Malnutrition, unspecified type (CMS/HCC); Polyneuropathy Start: 08-07-2024 End: 08-07-2024 ambulatory SHELBY ARENAS Not Available Start: 07-29-2024 End: 07-29-2024 Office outpatient new 45 minutes Rehab Flaco ELLIS [facility] Comment on above: Sensorineural hearin g loss, asymmetrical (Primary Dx); 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[facility]); Hodgkin lymphoma, unspecified Hodgkin lymphoma type, unspecified body region ([facility]-HCC) Start: 07-10-2024 End: 07-10-2024 Bamboo flowsheet Faviantanneredward Grahamett DO Work Phone: [facility] [address] Start: 07-10-2024 End: 07-10-2024 Bamboo flowsheet Shelby Grahamett DO Work Phone: [facility] [address] Start: 07-10-2024 End: 07-10-2024 Patient encounter procedure Faviantorito Grahamett DO Work Phone: [facility] [address] Comment on above: Weakness (Primary Dx ); Polyneuropathy Start: 07-10-2024 End: 07-10-2024 ambulatory SHELBY ARENAS Not Available Start: 07-02-2024 End: 07-02-2024 Patient encounter procedure Lillian Nagel AUD Work Phone: [facility] Comment on above: Sensorineural hearin g loss, bilateral (Primary Dx) Start: 07-02-2024 End: 07-02-2024 ambulatory LILLIAN NAGEL Not Available Start: 07-02-2024 End: 07-02-2024 Bamboo flowsheet Lillian Nagel AUD Work Phone: [facility] Start: 07-02-2024 End: 07-02-2024 Bamboo flowsheet Lillian Nagel AUD Work Phone: [facility] Start: 06-27-2024 End: 06-27-2024 Bamboo flowsheet Lillian Nagel AUD Work Phone: [facility] Start: 06-27-2024 End: 06-27-2024 Bamboo flowsheet Lillian Nagel AUD Work Phone: [facility] Start: 06-27-2024 End: 06-27-2024 Patient encounter procedure Lillian S Nagel AUD Work Phone: [facility] Comment on above: Sensorineural hearin g loss, bilateral (Primary Dx) Start: 06-27-2024 End: 06-27-2024 ambulatory LILLIAN NAGEL Not Available Start: 06-19-2024 End: 06-19-2024 ambulatory [facility] Start: 06-17-2024 End: 06-17-2024 Bamboo flowsheet Christopher Deepa DO [facility] [address] Start: 06-17-2024 End: 06-17-2024 Bamboo flowsheet Christopher Deepa DO Work Phone[facility] [address] Start: 06-17-2024 End: 06-17-2024 Office outpatient new 60 minutes Christopher Deepa DO Work Phone: [facility] Comment on above: Malnutrition, unspec ified type (CMS/HCC) (Primary Dx); Weakness; History of benign schwannoma; Lymphoma, unspecified body region, unspecified lymphoma type (CMS/HCC) Start: 06-17-2024 End: 06-17-2024 ambulatory ELANEDWARD DEEPA Not Available Start: 06-16-2024 End: 06-16-2024 Patient encounter procedure Kayce Hath[facility] Comment on above: 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) Start: 06-16-2024 End: 06-16-2024 ambulatory YANNA HARRISON Not Available Start: 06-09-2024 End: 06-09-2024 ambulatory Moody POP Facility:[facility] Start: 06-09-2024 End: 06-09-2024 Patient encounter procedure Moody POP [facility] Start: 06-03-2024 End: 06-04-2024 ambulatory Jassi ALEGRIA Facility:CD:[id number] Start: 06-03-2024 End: 06-03-2024 Patient encounter procedure Jassi ALEGRIA [facility] Start: 05-29-2024 End: 05-29-2024 Patient encounter procedure DO González Kuns Work Phone: [facility] [place] Work Phone: Start: 05-29-2024 End: 05-29-2024 ambulatory DO González Kuns Work Phone: [facility] Work Phone: Start: 05-26-2024 End: 05-26-2024 Bamboo flowsheet Yanna Harrison CCC-A Work Phone: [facility] Start: 05-26-2024 End: 05-26-2024 Bamboo flowsheet Yanna Call Piedad CCC-A Work Phone: [facility] Start: 05-26-2024 End: 05-26-2024 Clinical Support Yanna Harrison CCC-A Work Phone: [facility] Comment on above: 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) Start: 04-30-2024 End: 04-30-2024 ambulatory Jassi Rosi [place]RIA [place] [place] [place] Start: 04-30-2024 End: 04-30-2024 Patient encounter procedure Jassi ALEGRIA [facility] Start: 04-28-2024 ambulatory Jassi ALEGRIA Facility:[facility] Start: 04-23-2024 End: 04-23-2024 ambulatory DO González Kuns Work Phone: [facility] Work Phone: Start: 04-23-2024 End: 04-23-2024 Departed Referred DO González Kuns Work Phone: [facility] Start: 04-23-2024 ambulatory Jassi ALEGRIA Facility:[facility] Start: 04-22-2024 End: 04-23-2024 ambulatory Jassi ALEGRIA Facility:CD:[id number] Start: 04-21-2024 Non-patient / Non-visit DO Felipa tt Kuns Work Phone: [facility] Work Phone: Start: 04-11-2024 End: 04-11-2024 ambulatory DO González Kuns Work Phone: [facility] Work Phone: Start: 04-11-2024 End: 04-11-2024 Departed Referred DO González Kuns Work Phone: [facility] Start: 03-28-2024 End: 03-28-2024 ambulatory [facility] Start: 02-25-2024 End: 02-25-2024 ambulatory [facility] Start: 02-11-2024 End: 02-11-2024 ambulatory Moody POP Facility:CD:[id number] Start: 01-21-2024 End: 01-21-2024 ambulatory Moody POP Facility:[facility] Start: 01-21-2024 End: 01-21-2024 Patient encounter procedure Moody POP [facility] Start: 09-12-2023 ambulatory Jassi ALEGRIA Facility:[facility] Start: 08-26-2021 End: 08-26-2021 ambulatory AILIN BAKER Facility:[facility] Start: 02-23-2021 ambulatory AILIN BAKER Facility:H 1 Start: 12-06-2020 End: 12-07-2020 ambulatory ILAN TODD Facility:[facility] Start: 10-07-2020 Encounter for genera l adult medical examination without abnormal findings AILIN BAKER [facility] Start: 10-01-2020 End: 10-02-2020 ambulatory AILIN BAKER Facility:[facility] Start: 10-01-2020 End: 10-02-2020 Encounter for general adult medical examination without abnormal findings AILIN BAKER Facility: Start: 2017 End: 08-03-2017 Ambulatory PROVIDER UNKNOWN Facility:[facility] Start: 07-24-2017 End: 07-25-2017 Ambulatory DEFAULT PHYSICIAN Facility:[facility] Start: 07-19-2017 End: 07-20-2017 Ambulatory DEFAULT PHYSICIAN Facility:[facility] Start: 06-18-2017 End: 06-19-2017 Ambulatory DEFAULT PHYSICIAN Facility:[facility] Procedures Date Procedure Procedure Detail Performing Clinician [...] above: Performed By: #### P SASC #### [facility] [address] [place] [address] Dr. Forrest Lauren Start: 10-01-2020 PSA screening AILIN KHAN Comment on above: Performed By: #### U TARIK, CMP, T7, PSASC, TSH, LIPID #### [facility] [address] [place] [address] Matias Rivas Start: 08-06-2013 Colonoscopy Moody ASHER Start: 08-06-2004 Neoplasm of brain (disorder) Moody POP Back structure, excl uding neck (body structure) Moody POP Removal of acoustic neuroma Jassi YANCEYL Spinal arthrodesis Jassi INFANTE Tonsillectomy Moody POP Plan of Treatment Date Care Activity Detail Author Start: 07-31-2025 Tobacco Screening Tobacco Screening [facility] Start: 07-29-2025 Adult BMI Screening Adult BMI Screen ing [facility] Start: 07-29-2025 Tobacco Screening Tobacco Screening [facility] Start: 09-19-2024 End: 09-19-2024 Clinical Support 09/19/2024 9:00 AM EST Clinical Support [facility] [address] [place] [address] Pilar Avina, RIVAS [address] [address] [address] [place], [place] [id number] [facility] Start: 09-04-2024 End: 09-04-2024 Patient encounter procedure [facility] [address] Start: 09-01-2024 End: 09-01-2024 ambulatory 09/01/2024 11:00 AM EST Treatment [facility] [address] [facility] [address] [place] [address] Cleve Quinn, PT [address] [facility] [address] [place] [address] [facility] Start: 08-29-2024 End: 08-29-2024 ambulatory 08/29/2024 9:00 AM EST Treatment [facility] [address] [facility] [address] [place] [id number] Yossilisadustin Aurea, CHECK CLERK [facility] Start: 08-27-2024 End: 08-27-2024 ambulatory 08/27/2024 9:00 AM EST Treatment [facility] [address] [address] [place] [address] Aurea Sanchez, CHECK CLERK [facility] Start: 08-22-2024 End: 08-22-2024 ambulatory [facility] Comment on above: Polyneuropathy (Prim benoit Dx); Poor balance; Weakness of both lower extremities Start: 08-07-2024 End: 08-07-2025 Cobalamin (Vitamin B12) [Mass/volume] in Serum or Plasma Vitamin B12 Lab Routine Lymphoma, unspecified body region, unspecified lymphoma type (CMS/HCC) Expected: 08/07/2024 (Approximate), Expires: 08/07/2025 [facility] Comment on above: Expected: 08/07/2024 (Approximate), Expires: 08/07/2025 Start: 08-07-2024 End: 08-07-2025 Copper, serum Copper, serum Lab Routine Lymphoma, unspecified body region, unspecified lymphoma type (CMS/HCC) Expected: 08/07/2024 (Approximate), Expires: 08/07/2025 [facility] Comment on above: Expected: 08/07/2024 (Approximate), Expires: 08/07/2025 Start: 08-07-2024 End: 08-07-2025 Hemoglobin A1c/Hemoglobin.total in Blood Hemoglobin A1c Lab Routine Lymphoma, unspecified body region, unspecified lymphoma type (CMS/HCC) Expected: 08/07/2024 (Approximate), Expires: 08/07/2025 [facility] Work Phone: Comment on above: Expected: 08/07/2024 (Approximate), Expires: 08/07/2025 Start: 08-07-2024 End: 08-07-2025 Immunofixation electrophoresis Immunofixation electrophoresis Lab Routine Lymphoma, unspecified body region, unspecified lymphoma type (CMS/HCC) Expected: 08/07/2024 (Approximate), Expires: 08/07/2025 [facility] Comment on above: Expected: 08/07/2024 (Approximate), [...] Start: 08-07-2024 End: 08-07-2024 Patient encounter procedure [facility] [address] Comment on above: Arrived Start: 07-10-2024 End: 07-10-2024 Patient encounter procedure [facility] [address] Comment on above: Arrived Start: 07-02-2024 End: 07-02-2024 Patient encounter procedure [facility] Comment on above: Arrived Start: 06-27-2024 End: 06-27-2024 Patient encounter procedure 06/27/2024 9:00 AM EST Office Visit [facility] [address] [facility] [place] [address] Lillian Nagel AUD [address] [facility] [place] [address] Arrived KAYCE RIVAS Comment on above: Arrived Start: 06-17-2024 End: 06-17-2025 EMG 2 Extremities EMG 2 Extremities Neurology Routine Weakness Expected: 06/17/2024, Expires: 06/17/2025 [facility] Work Phone: Comment on above: Expected: 06/17/2024 , Expires: 06/17/2025 Start: 06-16-2024 End: 06-16-2024 Patient encounter procedure 06/16/2024 3:00 PM EST Office Visit [facility] [address] [place] [address] [facility] Start: 06-05-2024 End: 06-05-2024 Patient encounter procedure 06/05/2024 11:00 AM EDT Office Visit [facility] [address] [facility] [address] [place] [address] Shelby Arenas DO [address] [facility] [address] [place] [address] [facility] Start: 04-06-2024 Influenza vaccination Influenza Vacc ine [facility] Start: 2021 Fall Risk Screening Fall Risk Screen ing [facility] Start: 2006 Administration of varicella zoster vaccine Zoster (Shingles) Vaccine (1 of 2) [facility] Start: 1975 Administration of varicella zoster vaccine Zoster (Shingles) Vaccine (1 of 2) [facility] Start: 1975 DTaP,Tdap and Td Vac cines (1 - Tdap) DTaP,Tdap and Td Vaccines (1 - Tdap) [facility] Start: 1968 Depression Screening Depression Scre ening [facility] Auditory function tests Auditory function tests Audiology Routine 05/26/2024 1:35 PM EDT [facility] Work Phone: Payers Date Payer Category Payer Medicare [employer] [id number] 2023 Medicare (Managed Care) [employer] MEDICARE [id number] 2023 Private Health Insurance [id number] 1959 [facility] [id number] 1959 Medicare [id number] 1959 Self-pay 1956 Unknown [id number] 2.840.1.134276.3.579. 2.593 1956 Unknown [id number] 2.16.840.1.891749.3.579. 2.593 1956 Unknown [id number] 2.16.840.1.561504.3.579. 2.593 1956 Unknown [id number] 2.16.840.1.091634.3.579. 2.593 1956 Unknown [id number] 2.16.840.1.913417.3.579. 2.727 1956 Unknown [id number] 2.16.840.1.578562.3.579. 2.727 1956 Unknown [id number] 2.16.840.1.110472.3.579. 2.727 1956 Unknown [id number] 2.16.840.1.752281.3.579. 2.727 1956 Unknown [id number] 2.16.840.1.782427.3.579. 2.727 1956 Unknown [id number] 2.16.840.1.352177.3.579. 2.72 1956 Unknown [id number] 2.16.840.1.552571.3.579. 2.72 1956 Unknown [id number] 2.16.840.1.210002.3.579. 2.727 1956 Unknown [id number] 2.16.840.1.802118.3.579. 2.125 1956 Unknown [id number] 2.16.840.1.669586.3.579. 2.1259 1956 Unknown [id number] 2.16.840.1.945224.3.579. 2.1259 1956 Unknown [id number] 2.16.840.1.354903.3.579. 2.1259 1956 Unknown [id number] 2.16.840.1.977796.3.579. 2.1259 1956 Unknown [id number] 2.16.840.1.942147.3.579. 2.1259 1956 Unknown [id number] 2.16.840.1.695997.3.579. 2.1259 1956 Unknown [id number] 2.16.840.1.057731.3.579. 2.1259 1956 Unknown [id number] 2.16.840.1.842395.3.579. 2.1259 Private Health Insurance [facility] [id number] Unknown Unknown Bruce RUSH/DIPIKA [id number] Unknown [id number] 2.16.840.1.868862.3.579. 2.531 Unknown [id number] 2.16.840.1.489203.3.579. 2.531 Unknown [id number] 2.16.840.1.050099.3.579. 2.531 Social History Date Type Detail Facility Start: 01-21-2024 End: 07-29-2024 Tobacco smoking status Never smoked tobacco (finding) [facility] Tobacco smoking status Never [facility] Start: 07-29-2024 End: 07-31-2024 Sex Assigned At Male [facility] Start: 1955 Sex Assigned At Male [facility] Tobacco smoking stat [facility] Tobacco smoking consumption unknown [facility] Start: 1955 Sex assigned at Not on file [facility] Start: 07-29-2024 Tobacco use and exposure Smokeless tobacco non-user [facility] Start: 07-31-2024 Alcoholic beverage intake Lifetime non-drinker (finding) [facility] Start: 07-29-2024 End: 07-31-2024 History of Social function [facility] Start: 05-15-2024 Sex Male (finding) [facility] Start: 05-15-2024 Gender identity Identifies as male gender (finding) [facility] Start: 05-15-2024 Sexual orientation Heterosexual (finding) [facility] Functional Status Date Assessment Result Facility 06-03-2024 Functional Status N/A [facility] 04-30-2024 Functional Status N/A [facility] [place] 01-21-2024 Functional Status N/A [facility] Clinical Notes 01-21-2024 to 08-20-2024 Cleve Quinn, PT - 08/20/2024 3:00 PM ESTTelephone Encounter - Regis Ibarra MD - 08/15/2024 10:28 AM ESTTelephone Encounter - Allison Fortune CNA - 08/15/2024 10:28 AM EST Note Date & Type Note Facility 08-20-2024 History of Present illness Narrative Physical Therapy Evaluation Visit Patient Name: Nabeel Tran Today's Date: 08/20/24 Encounter Diagnoses Name Primary? Polyneuropathy Yes Poor balance Weakness of both lower extremities Visit number: 1 Timed Code Treatment Minutes: 60 minutes Total Treatment Time: 60 minutes Time In: 1500 Time Out: 1600 History: Pt. Presents to PT with c/c of poor balance and LE weakness. Pt. Reports of 2x falls. Pt. Was diagnosis with cancer 6 months ago lymphoma and has had 5 cancer treatment. Pt. Has history of hearing loss due to surgery 20 years ago. Pt. Has increased fatigue and endurance after diagnosis of cancer. Pt. Was Dx wit bilateral neuropathy. Pt. Presents to PT walking with SPC. Precautions: 100% def in right ear. Very hard of hearing in left ear. Dont over exert. Cancer. Subjective Pain: 0/10 Objective: PT Evaluation (08/20/24) LE ROM: grossly WFL LE strength: right LE 4-/5, left LE 4-/5 Observation: bilateral LE atrophy (quadriceps/gluteal) Gait: shuffling gait pattern Functional: moderate use of bilateral UE with sit to stand transfers Balance: fair dynamic standing balance Treatment: PT evaluation (20 minutes) Education: HEP education with demonstration, Educated on Eval Findings and POC Manual Therapy: Passive ROM, Joint mobilization, Soft Tissue Mobilization, Myofascial Release, Muscle Energy Technique, Neural Mobilization, Myofascial Cupping, Dry Needling, IASTM, and Scar mobilization Therapeutic Exercise: (24 minutes) Strength, Endurance, Flexibility, ROM, HEP, Neural Mobilization, Power, and Core Stability; 10 minutes Nustep Therapeutic Activity: Exercises to improve dynamic activities, functional tasks, functional mobility to return to prior activity level Gait Training: Neuromuscular re-education: Balance Training, Muscle Facilitation, Dynamic Stability, Core Stabilization, and Blood Flow Restriction Training (BFRT) Modalities: Heat, Ice, Electrical Stimulation, Ultrasound, Cervical Mechanical Traction, Lumbar Mechanical Traction, Iontophoresis, and Fluidotherapy Assessment: Pt. Has participated in 1 PT session with start of POC on 08/20/24 for LE weakness and balance. Pt. Will benefit from skilled PT services. PT treatment to focus on improving LE strength, balance, and endurance. Outcome Measure: 34/80 Short Term Goal: To be met in 2 weeks Goal 1: Pt to be instructed in home exercise program. Sanitizer Goals: To be met in 10 weeks Goal 1: Pt to report independence and compliance with home program. Goal 2: Pt. Will demonstrate 4+/5 or greater right LE strength grossly in all planes to allow him to walk/stand for long periods of time to help improve his functional mobility. Goal 3: Pt. Will demonstrate 4+/5 or greater left LE strength grossly in all planes to allow him to walk/stand for long periods of time to help improve his functional mobility. Goal 4: Pt. Will demonstrate sit to stand transfers with no UE assist to help improve his car transfers and functional mobility. Goal 5: Pt. Will demonstrate good dynamic standing balance to help reduce fall risks. Pt will benefit from skilled PT for 2-3x/week from 08/20/24 to 10/29/24 to address the above impairments. I hereby deem this POC medically necessary. Please sign below. Date: documented in this encounter [facility] 08-15-2024 Miscellaneous Notes Thank you Allison. I [...] me to do. documented in this encounter [facility] 08-15-2024 Telephone encounter Note Thank you Allison. I do not see a report for the MRI Brain. Do we have that radiology report? [facility] 08-15-2024 Telephone encounter Note I just looked and it looks like they never faxed that one or it got lost. I can call to have them resend it or it looks like it is in under the imaging. Let me know what you would like me to do. [facility] 08-13-2024 Miscellaneous Notes [facility] [place] called 08/13, patient saw Dr. Ibarra on 07/29/24. Lorna needs office notes faxed to [phone]. Faxed over office not to number provided. documented in this encounter [facility] 08-13-2024 Telephone encounter Note [facility] - [place] called 08/13, patient saw Dr. Ibarra on 07/29/24. Lorna needs office notes faxed to [phone]. [facility] 08-13-2024 Telephone encounter Note Faxed over office not to number provided. [facility] 08-12-2024 Miscellaneous Notes Just wanted to check if anyone had gotten his head and neck imaging from the outside hospital back? documented in this encounter [facility] 08-12-2024 Telephone encounter Note Just wanted to check if anyone had gotten his head and neck imaging from the outside hospital back? [facility] 08-07-2024 History of Present illness Narrative Images from the original note were not included. Chief complaint: Unsteadiness and generalized weakness and falls Subjective Nabeel Tran, 69 y.o., male Patient presents today [...] , wrist extensors , wrist flexor , director of flight operations strength 4-/5. LUE Strength deltoid , biceps , triceps , wrist extensors , wrist flexor , director of flight operations strength 4-/5. RLE Strength illopsoas, quadriceps, tibialis [...] reflex 1+ . Flowers's sign negative. Coordination: Rnctzt-bw-qlqc testing and rapid alternating movements are normal [...] oncology team Neuropathy lab eval PT Handicap placard provided Pt has been fully educated on their diagnosis, treatment options, follow up plan, and return instructions documented in this encounter [facility] 07-29-2024 History of Present illness Narrative Images from the original note were not included. [facility] [address] [place] [address] SUBJECTIVE: Patient ID (1955): Nabeel Tran is a 68 y.o. male presents today for Chief Complaint Patient presents with Cerumen Impaction Bilateral Hearing Loss Laterality HPI: Nabeel is presenting today with bilateral profound hearing loss. He had an acoustic neuroma resected at the [facility] about 20 years ago on the [...] HISTORY: Past Medical History: Diagnosis Date Cancer ([facility]) Past Surgical History: Procedure Laterality Date TUNNEL [...] visit: Sensorineural hearing loss, asymmetrical 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) Hodgkin lymphoma, unspecified Hodgkin lymphoma type, unspecified body region ([facility]) Plan: Patient is a 68-year-old male with a history of right-sided vestibular schwannoma resected [address] [facility] presenting for left-sided sensorineural hearing loss, ongoing for several months, concurrent with a diagnosis of Hodgkin's lymphoma, currently [facility], no records available. Recommend imaging, family member [...] this chart were generated using voice recognition M*Simt[employer] dictation software. Although every effort was made to ensure the accuracy of this automated capacitor inspector, some errors in capacitor inspector may have occurred. documented in this encounter [facility] 07-10-2024 History of Present illness Narrative Images from the original note were not included. Reason for Appointment: EMG Patient: Nabeel Tran : 1955 EMG Computer: Inbox Referring Physician: Dr. Shelby Arenas EMG: BLE wet primer powder blender: Gilbert Gaffney RT(R) Office Location: [place] Reason for EMG: c/o numbness/tingling in bilateral feet. Hx of surgery to low back. Pt currently undergoing chemo. Hx of DM. Taking Eliquis. Comments: Procedure was explained to the patient & who expressed understanding. Patient appeared to have tolerated the test well despite some discomfort due to the nature of the test. 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 Patient would prefer to return the instruments. A return was processed in [employer] portal. Informed patient he will be refunded by [facility]. Gave his the [employer] number in the event they needed to discuss the refund process. Patient to let us know if he would like to try [employer] devices again in the future. documented in this encounter [facility] 06-27-2024 History of Present illness Narrative HAP: [...] the trial period. documented in this encounter [facility] 06-19-2024 Note [facility] Subjective Nabeel Tran is a [...] morning., Disp: , (more content not included)... [facility] 06-17-2024 History of Present illness Narrative Images from the original note were not included. Chief complaint: Unsteadiness and generalized weakness and falls Subjective Nabeel Young Asiyabellegia, 68 y.o., male Nabeel presents today for a neurological consultation at the request of Ailin Green CNP for unsteady gait, generlized weakness, falls. Pt was seen at [facility] labs, U/A, PET scan, ECG and [...] , wrist extensors , wrist flexor , director of flight operations strength 4-/5. LUE Strength deltoid , biceps , triceps , wrist extensors , wrist flexor , director of flight operations strength 4-/5. RLE Strength illopsoas, quadriceps, tibialis [...] reflex 2+ . Flowers's sign negative. Coordination: Sjzgts-za-vqpt testing and rapid alternating movements are normal [...] and return instructions documented in this encounter [facility] 06-16-2024 History of Present illness Narrative Patient [...] The right CROS was coupled to 2S outside sales executive with a 10 mm open dome. The left hearing aid was coupled to a Signia custom canal lock earmold. Patient does not use a smart phone. Patient did not want to schedule a follow up due to his health and many appointments. Patient's states she will call for follow up. Cosigned by FRANKIE Spears at 06/17/2024 11:28 AM EST documented in this encounter [facility] 06-03-2024 Note General Surgery Offi ce/Clinic Note [...] nodes of axilla and upper limb) plan sacrws-z-pdum insertion for chemotherapy; informed consent obtained. Ancef [...] Tobacco Use:. House (more content not included)... [facility] Comment on above: Result Comment: Elec [...] is eligible for hearing aids through his [facility] [employer] Benefit. Recommend a custom mold for the left ear. Ear impression taken of left ear without incident. Pt ordered mid level technology. Order completed in [employer] portal and pt scheduled for HAF 06-16-24 in [place]. documented in this encounter [facility] 03-28-2024 Note [facility] Subjective Nabeel Tran is a [...] TSH (more content not included)... [facility] 02-25-2024 Note [place] [facility] Subjective Nabeel Tran is a [...] potassium (more content not included)... [facility] 02-15-2024 Hospital Discharge instructions Follow Up Care 02/15/2024 09:24:50 With:DONN ELLIS, Moody Aranda, URL Address: [facility] [address], [place] [address]- When: Unknown [facility] 01-21-2024 Note Chief Complaint Referral *LUTs [...] yo male new pt referred by Ailin Grene CNP due to LUTS. 1. BPH with [...] of prostat (more content not included)... [facility] Comment on above: Result Comment: Elec [...] urethra. Follow these instructions at home: Take eknf-amt-nuonncm and prescription medicines only as told by [...] provider. Document Revised: 02/08/2022 Document Reviewed: 02/08/2022 [employer] Patient Education 2022 [employer]. Follow Up Care 09/13/2023 09:26:56 With:Moody POP MD, URL Address: [facility] [address] , [place] [address]- When: Unknown [facility] Evaluation + Plan note No data available for this section [facility] Evaluation + Plan note Future Appointments Appointment Date:06/09/2024 10:45:00 AM Scheduled Provider:Moody POP MD Location:[facility] Appointment Type:URO Office Visit [facility] [place] Evaluation note No assessment inform ation available [facility] Work Phone: Evaluation note Diagnosis Sudden idiopathic [...] [facility] Diagnosis Polyneuropathy- Primary Unspecified hereditary and idiopathic peripheral neuropathy Poor balance Weakness of both lower extremities [facility] Diagnosis Polyneuropathy- Primary Unspecified hereditary and idiopathic peripheral neuropathy Poor balance Weakness of both lower extremities [facility] No data available for this section [facility] InstructionsNot on filedocumented in this encounter [facility] in this [facility] filedocumented in this encounter [facility] filedocumented in this encounter [facility] No data available for this section [facility] reason for visit Narrative* Consultation (Routine) - Closed Specialty Diagnoses / Procedures Referred By Celine t Referred To Contact Neurology Diagnoses Unsteadiness on feet Weakness Procedures CO OFFICE/OUTPATIENT NEW LOW MDM 30 MINUTES Ailin Green MD [address] [place] [address] Phone: tel: fax: Nabeel New MD [address] [place] [address] Phone: tel: fax: Referral ID Status Reason Start Date Expiration Date V isits Requested Visits Authorized [id number] Closed Consult and Treat 05/16/2024 11/12/2024 1 1 [facility] Narrative* Consultation (Routine) - Pending Review Specialty Diagnoses / Procedures Referred By Contac t Referred To Contact Physical Therapy Diagnoses Polyneuropathy Procedures CO OFFICE/OUTPATIENT NEW HIGH MDM 60 MINUTES Shelby Arenas DO [address] [place] [address] Phone: tel: fax: [facility] [address] [address] Phone: tel: fax: Referral ID Status Reason Start Date Expiration Date Visits Requested Visits Authorized [id number] Pending Review Specialty Services Required 08/20/2024 02/03/2025 1 3 [facility] Narrative* Consultation (Routine) - Authorized Specialty Diagnoses / Procedures Referred By Contac t Referred To Contact Physical Therapy Diagnoses Polyneuropathy Procedures CO OFFICE/OUTPATIENT NEW HIGH MDM 60 MINUTES Shelby Arenas DO [address] [place] [address] Phone: tel: fax: [facility] [address] [facility] [address] [place] [address] Phone: tel: fax: Referral ID Status Reason Start Date Expiration Date Visits Requested Visits Authorized [id number] Authorized Specialty Services Required 08/20/2024 02/03/2025 6 6 [facility] Summary Purpose Family History No [...] DATE CREATED AUTHOR 01/29/[address] [facility] DATE CREATED AUTHOR AUTHOR'S ORGANIZ ATION 09/01/[address] [facility] DATE CREATED AUTHOR AUTHOR'S ORGANIZ ATION 06/08/2024 [facility] DATE CREATED AUTHOR AUTHOR'S ORGANIZ ATION 06/11/2024 [facility] DATE CREATED AUTHOR AUTHOR'S ORGANIZ ATION 06/30/[address] [facility] DATE CREATED AUTHOR AUTHOR'S ORGANIZ ATION 08/23/2024 [facility] dical Specialists EPIC Patient Care team informatio n (unrecognized section and content) Team Status: Active Member Role Status Dates Ailin Green NP-Medardo Primary Care Provider Active Team Status: Inactive [...] Member Role Status Dates Jassi Alegria MD [facility] Attending Provider Active Start: April 23, 2024 End: April 23, 2024 Team Status: Inactive Member Role Status Dates Sonia Donnelly MD Attending Provider Active St art: May 29, 2024 End: May 29, 2024 Ailin Green NP-C Primary Care Provider Active Start: May 29, 2024 End: May 29, 2024 Team Status: Active Member Role Status González Moon DO Primary Care Provider Active Magnet Maker Relationship Specialty Start Date End Date Ailin Green MD [address] [place] [address] Referring Physician Family Medicine 05/16/24 Ailin Green MD [address] [place] [address] Referring Physician Family Medicine 05/26/24 Magnet Maker Relationship Specialty [place] [address] [place] [address] Referring Physician Family Medicine 05/16/24 [place] [address] [place] [address] Referring Physician Family Medicine 05/26/24 Magnet Maker Relationship Specialty [place] [address] [place], [place] [phone] PCP - General Family Medicine 06/16/24 Ailin Green MD [address] [place] [address] Referring Physician Family Medicine 05/16/24 [place] [address] [place] [address] Referring Physician Family Medicine 05/26/24 Magnet Maker Relationship Specialty Start Date End Date Jah Damian MD [address] [place] [address] PCP - General Family Medicine 06/16/24 Ailin Green MD [address] [place] [address] Referring Physician Family Medicine 05/16/24 [place] [address] [place], [place] [phone] Referring Physician Family Medicine 05/26/24 Magnet Maker Relationship Specialty [place] [address] [place] [phone] PCP - General Family Medicine 06/16/24 [place] [address] [place] [address] Referring Physician Family Medicine 05/16/24 [place] [address] [place] [address] Referring Physician Family Medicine 05/26/24 Magnet Maker Relationship Specialty Start Date End Date Jah Damian MD [address] [place] [phone] PCP - General Family Medicine 06/16/24 Ailin Green MD [address] [place] [address] Referring Physician Family Medicine 05/16/24 Ailin Green MD [address] [place] [address] Referring Physician Family Medicine 05/26/24 Magnet Maker Relationship Specialty Start Date End Date Jah Damian MD [address] [place] [facility] [place] [address] PCP - General Family Medicine 06/16/24 Ailin Green MD [address] [facility] [place] [address] Referring Physician Family Medicine 05/16/24 Ailin Green MD [address] [place] [address] Referring Physician Family Medicine 05/26/24 Magnet Maker Relationship Specialty Start Date End Date Jah Damian MD [address] [place] [address] PCP - General Family Medicine 06/16/24 Ailin Green MD [address] [facility] [place] [address] Referring Physician Family Medicine 05/16/24 Ailin Green MD [address] [place] [address] Referring Physician Family Medicine 05/26/24 Magnet Maker Relationship Specialty Start Date End Date Jah Damian MD [address] [place] [address] PCP - General Family Medicine 06/16/24 Ailin Green MD [address] [place] [address] Referring Physician Family Medicine 05/16/24 Ailin Green MD [address] [place] [address] Referring Physician Family Medicine 05/26/24 Magnet Maker Relationship Specialty Start Date End Date Ailin Green MD [address] [place] [address] Referring Physician Family Medicine 05/16/24 Ailin Green MD [address] [place] [address] Referring Physician Family Medicine 05/26/24 Shelby Arenas DO [address] [place] [phone] Referring Physician Neurology 08/07/24 Magnet Maker Relationship Specialty Start Date End Date Ailin Green MD [address] [place] [address] Referring Physician Family Medicine 05/16/24 Ailin Green MD [address] [place] [address] Referring Physician Family Medicine 05/26/24 Shelby Arenas DO [address] [place] [phone] Referring Physician Neurology 08/07/24 Magnet Maker Relationship Specialty Start Date End Date Ailni Green MD [address] [place] [address] Referring Physician Family Medicine 05/16/24 Ailin Green MD [address] [place] [address] Referring Physician Family Medicine 05/26/24 Shelby Arenas DO [address] [address] Referring Physician Neurology 08/07/24 Magnet Maker Relationship Specialty Start Date End Date Ailin Green MD [address] [place] [address] Referring Physician Family Medicine 05/16/24 Ailin Green MD [address] [place] [address] Referring Physician Family Medicine 05/26/24 Shelby Arenas DO [address] [place] [phone] Referring Physician Neurology 08/07/24 Magnet Maker Relationship Specialty [place] [address] [place] [address] Referring Physician Family Medicine 05/16/24 Ailin Green MD [address] [place] [address] Referring Physician Family Medicine 05/26/24 Shelby Arenas DO [address] [place] [phone] Referring Physician Neurology 08/07/24 Magnet Maker Relationship Specialty Start Date End Date Ailin Green MD [address] [place] [address] Referring Physician Family Medicine 05/16/24 Ailin Green MD [address] [place] [address] Referring Physician Family Medicine 05/26/24 Shelby Arenas DO [address] [address] Referring Physician Neurology 08/07/24 Magnet Maker Relationship Specialty Start Date End Date Ailin Green MD [address] [place] [address] Referring Physician Family Medicine 05/16/24 Ailin Green MD [address] [place] [address] Referring Physician Family Medicine 05/26/24 Shelby Arenas DO [address] [address] Referring Physician Neurology 08/07/24 Goals (unrecognized section [...] BE BASED ON THE PRIMARY CLINICAL RECORDS. [employer] [facility]. provides no warranty or guarantee of the accuracy or completeness of information in this document.
== END 2024-08-25 08:56 | disposition home or self-care (01) ==
LOC: CARD 08:56
PROVIDERS: PCP Nurse Practitioner Family; Visit Provider Internal Medicine Cardiovascular Disease
DX: R06.09 Other forms of dyspnea (principal)
CPT/HCPCS: 93306; 93356

== ENCOUNTER 2024-09-02 07:36 | Outpatient (RCR) | payer MEDICARE, SELFPAY ==
--- OUTSIDE RECORDS SUMMARY | 2024-08-19 07:45 | XMS_ITS | CCD ---
Author Organization [facility] Team Providers Care Brick Mason Name Role Phone PHYSICIAN, DEFAULT Unavailable Unavailable PHYSICIAN, DEFAULT Unavailable Unavailable PHYSICIAN, DEFAULT Unavailable Unavailable PHYSICIAN, DEFAULT Unavailable Unavailable PHYSICIAN, DEFAULT Unavailable Unavailable PHYSICIAN, DEFAULT Unavailable Unavailable UNKNOWN, PROVIDER Unavailable Unavailable UNKNOWN, PROVIDER Unavailable Unavailable NEVILLE MATA Unavailable Unavailable NEVILLE MATA Unavailable Unavailable SAMUEL, AILIN Admitting Unavailable SAMUEL, AILIN Attending Unavailable SAMUEL, AILIN Primary Care Unavailable SAMUEL, AILIN Admitting Unavailable SAMUEL, AILIN Attending Unavailable SAMUEL, AILIN Consulting Unavailable SAMUEL, AILIN Primary Care Unavailable AILIN BAKER Attending Unavailable NEVILLE MATA Primary Care Unavailable SAMUEL, AILIN Consulting Unavailable SAMUEL, AILIN Admitting Unavailable ILAN TODD Attending Unavailable ILAN TODD Consulting Unavailable ILAN TODD Admitting Unavailable SAMUEL, AILIN Primary Care Unavailable AMARIS WALKER Consulting Unavailable AILIN GREEN Primary Care Physician [phone] DO González Moon Primary Care Provider MD Nabeel Strange Attending Provider MD Jassi Alegria Attending Provider [phone] Ailin Green MD Unavailable Ailin Green MD Unavailable MD Sonia Donnelly Attending Provider MEHRDAD Green Primary Care Provider Jassi Alegria Attending Unavailable Jassi Alegria Admitting Unavailable González Moon Primary Care Unavailable Nabeel Strange Admitting Unavailable Nabeel Strange Attending Unavailable Ailin Green Primary Care Unavailable Sonia Donnelly Attending Unavailable Sonia Donnelly Admitting Unavailable Jassi ALEGRIA Attending Unavailable Jassi ALEGRIA Attending Unavailable Jassi ALEGRIA Attending Unavailable Jassi ALEGRIA Attending Unavailable Moody POP Attending Unavailable Moody POP Attending Unavailable AILIN GREEN S Referring Unavailable Jassi ALEGRIA Attending Unavailable Moody POP Attending Unavailable Jah Damian MD Primary Care Provider [phone] FABIOLA BENDER Attending Unavailable JEROD STATON Attending Unavailable JEROD STATON Attending Unavailable Unavailable Primary Care Provider UnavailShelby Woodard DO Unavailable [phone] YANNA HARRISON Attending Unavailable SHELBY ARENAS Attending Unavailable PETER, AILIN Referring Unavailable NAGEL LILLIAN S Attending Unavailable NAGELLILLIAN S Attending Unavailable SHELBY ARENAS Attending Unavailable SHELBY ARENAS Attending Unavailable Allergies Allergy Classification Reported Allergen(s) Allergy Type Date of Onset Reaction(s) Facility (2 sources) No Known Allergies; 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: [No Known Allergies] Propensity to adverse reactions (disorder) 7 [facility] Repository (1 source) Unable to Assess Drug allergy (disorder) 4 [facility] Repository (1 source) No Known Medication Allergies; 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: [No Known Medication Allergies] Propensity to adverse reactions (disorder) [facility] Repository (1 source) empagliflozin; 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: [EMPAGLIFLOZIN] Drug Allergy [address] [place] [address] Repository Medications Current Medications Medication Drug Class(es) Dates Sig (Normalized) Sig (Original) amLODIPine 10 mg oral tablet (1 source) Dihydropyridine Calcium Channel Erick Start: 01-21-2024 amLODIPine 10 mg Tab 90 tab(s), 0 Refill(s), Refills(s) 0 Start Date: 01/21/24 Status: Ordered apixaban 5 mg oral tablet (18 sources) Factor Xa Inhibitor Start: 06-15-2024 take 1 tablet by mouth in the morning, then take 1 tablet by mouth at bedtime ELIQUIS 5 mg tablet Take 1 tablet (5 mg total) by mouth in the morning and 1 tablet (5 mg total) before bedtime. 06/15/2024 Active atorvastatin 10 mg oral tablet (20 sources) HMG-CoA Reductase Inhibitor Start: 03-28-2024 End: 08-23-2025 take 1 tablet by mouth in the morning atorvastatin (LIPITOR) 10 mg tablet Take 1 tablet (10 mg total) by mouth in the morning. 03/28/2024 03/28/2025 Active Start: 01-21-2024 atorvastatin 4 0 mg Tab [...] Refills(s) 0 Start Date: 01/21/24 Status: Ordered 24 hr dilTIAZem hydrochloride 240 mg extended release oral capsule (18 sources) Calcium Channel Erick Start: 06-15-2024 take 1 capsule by mouth every twenty-four hours in the morning dilTIAZem CD (CARDIZEM CD) 240 mg 24 hr capsule Take 1 capsule (240 mg total) by mouth in the morning. 06/15/2024 Active Start: 06-15-2024 take 1 capsule by [facility] once daily, then take 1 capsule by mouth every twenty-four hours dilTIAZem CD (Cardizem CD) 240 MG 24 hr capsule Take 240 mg by mouth Daily 06/15/2024 Active empagliflozin 25 mg oral tablet (1 source) Sodium-Glucose Cotransporter 2 Inhibitor Start: 01-21-2024 Jardiance 25 mg oral tablet 90 tab(s), 0 Refill(s), Refills(s) 0 Start Date: 01/21/24 Status: Ordered 3 ml insulin glargine 100 unt/ml pen injector (17 sources) Insulin Analog Start: 04-25-2024 Lantus Solosta r Pen 100 units/mL subcutaneous solution 20 unit(s), SubCutaneous, Once a day (at bedtime), Refills(s) 0 Start Date: 04/25/24 Status: Ordered inject 20 [IU] by ordoñez bcutaneous injection at bedtime insulin glargine (Lantus) 100 UNIT/ML injection Inject 20 Units under the skin at bedtime Active liothyronine sodium 0.005 mg oral tablet (20 sources) l-Triiodothyronine Start: 05-27-2024 take 1 tablet by mouth once daily liothyronine 5 mcg Tab 5 mcg = 1 tab(s), Oral, Daily, Refills(s) 0 Start Date: 05/27/24 Status: Ordered take 2 tablets by mouth in the m orning liothyronine (CYTOMEL) 5 MCG tablet Take 2 tablets (10 mcg total) by mouth in the morning. Active losartan potassium 100 mg oral tablet (18 sources) Angiotensin 2 Receptor Erick Start: 01-21-2024 take 1 tablet by mouth once daily losartan 100 mg Tab 100 mg = 1 tab(s), Oral, Daily, Refills(s) 0 Start Date: 01/21/24 Status: Ordered take 1 tablet by mouth once nicolás y losartan (Cozaar) 50 MG tablet Take 50 mg by mouth Daily Active metFORMIN hydrochloride 1000 mg oral tablet (18 sources) Biguanide Start: 01-21-2024 take 1 tablet by mouth once daily metformin 1000 mg Tab 1,000 mg = 1 tab(s), Oral, Daily, Refills(s) 0 Start Date: 01/21/24 Status: Ordered take 1 tablet by anais th at mealtime, then take 1 tablet by mouth every twenty-four hours metFORMIN, OSM, (Fortamet) 1000 MG 24 hr tablet Take 1,000 mg by mouth in the evening. Take with meals Do not crush, chew, or split. Active metoprolol tartrate 25 mg oral tablet (7 sources) beta-Adrenergic Erick Start: 07-17-2024 take 2 tablets by mouth in the morning, then take 2 tablets by mouth at bedtime metoprolol tartrate (LOPRESSOR) 25 mg tablet Take 2 tablets (50 mg total) by mouth in the morning and 2 tablets (50 mg total) before bedtime. 07/17/2024 Active take 1 tablet by mouth in the mo rning metoprolol tartrate (Lopressor) 50 MG tablet Take 50 mg by mouth in the morning and 50 mg before bedtime. Active ondansetron 4 mg oral tablet (9 sources) Serotonin-3 Receptor Antagonist Start: 05-27-2024 ondansetron 4 mg Tab as directed, Refills(s) 0 Start Date: 05/27/24 Status: Ordered Start: 05-21-2024 ondansetron OD T (ZOFRAN ODT) 4 mg disintegrating tablet Dissolve 1 tablet (4 mg total) on tongue as needed. 05/21/2024 Active pantoprazole 40 mg delayed release oral tablet (4 sources) Proton Pump Inhibitor Start: 06-17-2024 take 1 tablet by mouth once daily before breakfast pantoprazole (PROTONIX) 40 mg EC tablet Take 1 tablet (40 mg total) by mouth every morning before breakfast. 06/17/2024 Active prochlorperazine 10 mg oral tablet (2 sources) Phenothiazine Start: 05-27-2024 prochlorperazine 10 mg Tab as directed, Refills(s) 0 Start Date: 05/27/24 Status: Ordered SITagliptin 100 mg oral tablet (20 sources) Dipeptidyl Peptidase 4 Inhibitor Start: 01-21-2024 take 1 tablet by mouth in the morning JANUVIA 100 mg tablet Take 1 tablet (100 mg total) by mouth in the morning. 01/21/2024 Active sucralfate 1000 mg oral tablet (4 sources) Aluminum Complex Start: 07-13-2024 take 1 tablet by mouth at bedtime sucralfate (CARAFATE) 1 gram tablet Take 1 tablet (1 g total) by mouth in the morning and 1 tablet (1 g total) at noon and 1 tablet (1 g total) in the evening and 1 tablet (1 g total) before bedtime. 07/13/2024 Active tamsulosin hydrochloride 0.4 mg oral capsule (4 [...] Weight Dosing Start Date: 01/21/24 Stop Date: 6/12/25 Status: Ordered traMADol hydrochloride 50 mg oral [...] completed, # 2 tab(s), Refills(s) 0, Pharmacy: [id number], 187, cm, 01/21/24 11:48:00 EDT, Height/Length Dosing, 118, kg, 01/21/24 11:48:00 EDT, Weight Dosing Start Date: 01/21/24 Status: Ordered Problems Active Problems Problem Classification Problem Date Documented Date Episodic/Chronic Anxiety disorders (3 sources) Anxiety 04-25-2024 Chronic Cancer; other and unspecified primary (2 sources) History of benign schwannoma; Translations: [Personal history of other benign neoplasm] 06-17-2024 Episodic Cardiac dysrhythmias (4 sources) Paroxysmal atrial fibrillation; Translations: [Atrial premature depolarization] Onset: 02-25-2024 Chronic Diabetes mellitus without complication (5 sources) Type [...] (10 sources) Nonrheumatic mitral (valve) insufficiency; Translations: [Non-rheumatic mitral regurgitation ] Onset: 2017 04-25-2024 Chronic Hodgkin`s disease (2 sources) Nodular sclerosis Hodgkin lymphoma, lymph nodes of [...] [Localized enlarged lymph nodes] Onset: 04-30-2024 Episodic Malaise and fatigue (3 sources) Asthenia; Translations: [Weakness] 06-17-2024 Episodic Non-Hodgkin`s lymphoma (7 sources) Non-Hodgkin's lymphoma (clinical); Translations: [Non-Hodgkin lymphoma, unspecified, 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] Onset: 05-29-2024 05-27-2024 Chronic Nutritional deficiencies (4 sources) Undernutrition; Translations: [Unspecified protein-calorie malnutrition] 06-17-2024 Chronic Other and unspecified benign neoplasm (4 sources) Acoustic neuroma; Translations: [Benign neoplasm of cranial nerves] 04-25-2024 Chronic Comment on above: Outside Source [...] Episodic Other ear and sense organ disorders (4 sources) Sensorineural hearing loss, bilateral; Translations: [Sensorineural hearing loss, bilateral] 06-27-2024 Chronic Other ear and sense organ disorders (1 source) Asymmetrical sensorineural hearing loss; Translations: [Sensorineural hearing loss, bilateral] 07-31-2024 Chronic Other ear and sense organ disorders (3 sources) Sudden idiopathic hearing loss; Translations: [Sudden idiopathic hearing loss, left ear] 05-26-2024 Episodic Other nervous system disorders (5 sources) Polyneuropathy; Translations: [Polyneuropathy, unspecified] 07-10-2024 Chronic Other nervous system disorders (1 source) [...] / UNK(Unknown) Onset: 2017 Unclassified (1 source) [employer] (current) use of oral hypoglycemic drugs; Translations: [[facility] (CURRENT) USE OF ORAL 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 DRUGS] Onset: 2017 Unclassified (4 sources) Patient encounter status 01-21-2024 Viral infection (1 source) COVID-19; Translations: [COVID-19] Onset: 12-08-2020 Past or Other Problems Problem Classification Problem Date Documented Da te Episodic/Chronic Complications of surgical procedures or medical care (2 sources) Hypotension due to drugs; Translations: [Hypotension due to drugs] Onset: 03-28-2024 Episodic Other aftercare (1 source) [employer]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; Translations: [[employer] (CURRENT) USE OF ASPIRIN] Onset: 2017 Episodic Other lower respiratory disease (3 sources) Shortness of breath; Translations: [SHORTNESS OF BREATH] Onset: 2017 Episodic Other lower respiratory disease (3 sources) Cough; Translations: [COUGH] Onset: 12-06-2020 Episodic Results Test Name Value Interpretation Reference Range Facility [facility]LR HEMOGLOBIN A1Con 025 Glucose [Mass/Vol] 126 mg/dL [facility] HbA1c (Bld) [Mass fraction] 6 % 4.5 - 6.2 % [facility] Comment on above: ADA RECOMMENDED LIMI T 4.0 - 6.0 ADA THERAPEUTIC TARGET < 7.0 ACTION SUGGESTED > 7.0 [facility] EMG 2 Extremitieson 07-10-20 24 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, motor predominant and severe Can not exclude radiculopathy [facility] 9-10 Nerveson 07-10-2024 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, motor predominant and severe Can not exclude radiculopathy [facility] Office Visiton 06-19-2024 Follow-up visit [id number] Allen Tran W 1955 M Date Provider Department Center 06/19/2024 Joey-FABIOLA BENDER ELIAS Rosario Family History Problem Relation Age of Onset Coronary artery disease Mother Family Status - Relation Status Age at Mother Level of Service:24553 [place] OFFICE/OUTPATIENT ESTABLISHED LOW MDM 20 MIN Normal [facility] Orders Onlyon 06-19-2024 Orders Only [id number] Allen Tran W 1955 M Date Provider Department Center 06/19/2024 JOSE ALFREDO GARCIA ELIAS Rosario Family History Problem Relation Age of Onset Coronary artery disease Mother Family Status - Relation Status Age at Mother Normal [facility] ISTAT XRay CREon 05-29-2024 ISTAT GFR > 60.0 Normal [facility] Comment on above: Result Comment: PERF ORMED BY: [place] [address] PATHOLOGIST INSECTIC[employer] EXPERT KASSI WATERS M.D. Performed By: #### I SCRE #### [address] MR head/brain wo/w conon MR head/brain wo/w con [facility] [place] [address] MRI Report Signed Patient: Nabeel Tran MR#: [id number] : 1955 Acct:[id number] Age/Sex: 68 / M ADM Date: 05/29/24 Loc: MR Room: Type: [facility] Attending Dr: Sonia Donnelly MD [...] Alexis Patel M.D.05/29/2024 1:38 PM Dictation Location: [place] [address] Transcribed By: ANDRIA 05/29/24 1338 Dictated By: Alexis Patel II, MD 05/29/24 1325 Signed By: 05/29/24 1338 Normal [facility] No Panel InformationOrdered By: Sonia Donnelly on 05-29-2024 Bedside Estimated GFR (eGFR) > 60.0 [facility] Whole blood creatinine measu rementOrdered By: Sonia Donnelly on 05-29-2024 Creatinine [Mass/Vol] 0.8 mg/dL Normal 0.6-1.3 [facility] Comment on above: ER/ESD physician is notified/shown all ISTAT results.Critical values may be confirmed by laboratory testing ifdeemed necessary by ER attending doctor. Result Comment: ER/E SD physician is notified/shown all ISTAT results. Critical values may be confirmed by laboratory testing if deemed necessary by ER attending doctor. Performed By: #### I SCRE #### [address] XR pre/post mri xrayon 05-29 XR pre/post mri xray [facility] Main [place] [address] [place] [address] MRI Report Signed Patient: Nabeel Tran MR#: [id number] : 1955 Acct:[id number] Age/Sex: 68 / M ADM Date: 05/29/24 Loc: Room: Type: [facility] Attending Dr: Sonia Donnelly MD Copies to: Sonia Donnelly MD Ordering Provider: Sonia Donnelly MD Date of Service: 05/29/24 MR/MR cervical spine wo/w con: C85.90, C85.94, C85.11 ([id number]) XR/XR pre/post mri xray: C85.90, C85.94, C85.11 [...] Alexis Patel M.D.05/29/2024 1:00 PM Dictation Location: [place] [address] Transcribed By: ANDRIA 05/29/24 1300 Dictated By: Alexis Patel II, MD 05/29/24 1254 Signed By: 05/29/24 1300 Normal [facility] Ambulatory Visit Summaryon 0 04-30-2024 Ambulatory Visit Summary Ambulatory Visit Summary NABEEL TRAN :1955 Visit Date:04/30/2024 Ambulatory Visit Instructions Your Diagnosis Lymphadenopathy, axillary Your Care Team Attending Physician - AIRAM ELLIS, Jassi Aranda Primary Care Physician - PETER PAGAN, AILIN Israel This Is Your Medications List Contact prescribing [...] ELLIS, Moody Aranda Where: [facility] [address] [address]- Medications What How Much When Instructions Unchanged [...] you for choosing us for your care. Annabelle [facility] General Surgery Office/Clini c Noteon 04-30-2024 General Surgery Office/Clinic Note General Surgery Office/Clinic Note Chief Complaint post operative follow up HPI Staff 7 day post operative follow up post incisional biopsy right axilla adenopathy completed while inpatient at [facility]. Denies soreness, bleeding or drainage. History [...] Yes, 04/30/2024 Family History Heart disease: Mother. [facility] Comment on above: Result Comment: Elec tronically Signed By: AIRAM ELLIS, Jassi Reesebr\Date and Time Signed: 04/30/24 14:51 EDT Robert 04-23-2024 L Specimen: [id number] R eceived: 04/23/24 Status: MERNA Montemayor Num: [id number] Spec Type: Surgical Subm Dr: Jassi Alegria MD FACS Tissues: A Lymph Node - Biopsy (Needle or Incisional) (R AXILLARY LYMPH NODE BX) Procedures: CD45/2, HE/4, Gross/Micro L4, AE1-AE3, BCL-2, BCL-6, CD10, CD20, CD23, CD3, CD30/2, CD5, PAX5/2 Age/ Patient Sex Location Account Attending Physician Nabeel Tran 68/M LABELL [id number] Jassi Alegria MD FACS SPEC NUM: [id number] RECD: 04/23/24 STATUS: MERNA MONTEMAYOR NUM: [id number] RANJITH: 04/23/[address]: Jassi Alegria MD FACS ENTERED: 04/23/[address] [facility] [address]: SPEC TYPE: Surgical DEPT: LUANA MOYER ENTERED BY: [id number] RECV BY: [id number] ORDERED: CD45/2, HE/4, Gross/Micro L4, AE1-AE3, BCL-2, BCL-6, CD10, CD20, CD23, CD3, CD30/2, CD5, PAX5/2 ORDERED: CD45/2, HE/4, Gross/Micro L4, AE1-AE3, BCL-2, BCL-6, CD10, CD20, CD23, CD3, CD30/2, CD5, PAX5/2, USS/7 Supplemental Report Addendum 3 Entered: 05/15/24-1014 Supplemental for addended consultation report from [facility] Addendum -Repeat MUM1 immunostain does in fact stain the focal large atypical cells -No change in final diagnosis Addendum Signed (signature on file) Trinity Lauren MD 05/15/24 1014 -- Addendum 2 Entered: 05/14/24 Supplemental for findings of consultation report from [facility]: -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 -- Specimen: [id number] Received: 04/23/24-2 Status: MERNA Miguel Num: [id number] Spec Type: Surgical Subm Dr: Jassi Alegria MD FACS Tissues: A Lymph Node - Biopsy (Needle or Incisional) (R AXILLARY LYMPH NODE BX) Procedures: CD45/2, HE/4, Gross/Micro L4, AE1-AE3, BCL-2, BCL-6, CD10, CD20, CD23, CD3, CD30/2, CD5, PAX5/2 -- Patient: Nabeel Tran [id number] (Continued) -- Specimen: [id number] Received: 04/23/24 (Continued) Supplemental Report (Continued) Signed (signature on file) Trinity Lauren MD 05/01/24 1651 -- Specimen: [id number] Received: 04/23/24 Status: MERNA Montemayor Num: [id number] Spec Type: Surgical Subm Dr: Jassi Alegria MD FACS Tissues: A Lymph Node - Biopsy (Needle or Incisional) (R AXILLARY LYMPH NODE BX) Procedures: CD45/2, HE/4, Gross/Micro L4, AE1-AE3, BCL-2, BCL-6, CD10, CD20, CD23, CD3, CD30/2, CD5, PAX5/2 -- Patient: Nabeel Tran [id number] (Continued) -- Specimen: [id number] Received: 04/23/24 (Continued) Supplemental Report (Continued) lymphocytes -See comment Addendum Signed (signature on file) Trinity Lauren MD 05/14/24 1437 -- Addendum 1 Entered: 05/07/24 Supplemental for findings of Flow Cyt[facility] -No significant lymphoid immunophenotypic abnormalities detected Addendum Signed (signature on file) Trinity Lauren MD 05/07/24 0944 -- Pathological Diagnosis [...] Hodgkin-like cells, at least 1 binucleated Neto Jued type cell, and occasional mummified cells, which [...] contributory. -The concurrent flow cytometry study from [facility] is no significant lymphoid (more content not included)... Normal [facility] Robert 04-11-2024 L Specimen: [id number] R eceived: 04/14/24 Status: MERNA Reradha Num: [id number] Spec Type: Surgical Subm Dr: Nabeel Strange MD Tissues: A Lymph Node - Biopsy (Needle or Incisional) (R AXILLA LYMPH NODE) B Gross Only (LYMPH NODE) Procedures: HE/2, Gross/Micro L4, Level 1 Gross Age/ Patient Sex Location Account Attending Physician Nabeel Tran 68/M LABELL [id number] Nabeel Strange MD SPEC NUM: [id number] RECD: 04/14/24 STATUS: MERNA MONTEMAYOR NUM: [id number] RANJITH: 04/11/24 DR: Nabele Strange MD ENTERED: 04/14/[address] [facility] [address]: Gregg Pierce SPEC TYPE: Surgical DEPT: LUANA MOYER ENTERED BY: [id number] RECV BY: [id number] ORDERED: HE/2, Gross/Micro L4, Level 1 Gross ORDERED: HE/2, Gross/Micro L4, Level 1 Gross Supplemental Report Addendum 2 Entered: 04/21/241306 Supplemental for findings of consultation report from [facility]: A, -Extremity limited specimen compatible with malignancy, see comment Addendum Signed (signature on file) Trinity Lauren MD 04/21/24 1307 -- Addendum 1 Entered: 04/18/24 Supplemental for findings of flow cytometry report from [facility]: -Tests canceled -This test is canceled due to poor sample quality / poor viability -- Specimen: [id number] Received: 04/14/24 Status: MERNA Montemayor Num: [id number] Spec Type: Surgical Subm Dr: Nabeel Strange MD Tissues: A Lymph Node - Biopsy (Needle or Incisional) (R AXILLA LYMPH NODE) B Gross Only (LYMPH NODE) Procedures: HE/2, Gross/Micro L4, Level 1 Gross -- Patient: Nabeel Tran [id number] (Continued) -- Specimen: [id number] Received: 04/14/24 (Continued) Supplemental Report (Continued) Signed (signature on file) Trinity Lauren MD 04/17/24 1127 -- Specimen: [id number] Received: 04/14/24 Status: MERNA Montemayor Num: [id number] Spec Type: Surgical Subm Dr: Nabeel Strange MD Tissues: A Lymph Node - Biopsy (Needle or Incisional) (R AXILLA LYMPH NODE) B Gross Only (LYMPH NODE) Procedures: HE/2, Gross/Micro L4, Level 1 Gross -- Patient: Nabeel Tran [id number] (Continued) -- Specimen: [id number] Received: 04/14/24 (Continued) Supplemental Report (Continued) Addendum [...] to an outside facility. DM -- Specimen: [id number] Received: 04/14/24 Status: MERNA Baileyradha Num: [id number] Spec Type: Surgical Subm Dr: Nabeel Strange MD Tissues: A Lymph Node - Biopsy (Needle or Incisio (more content not included)... Normal [facility] Office Visiton 03-28-2024 Follow-up visit [id number] Allen Tran 1955 Date Provider Department [place] 03/28/2024 JEROD BANKS ELIAS Rosario Family History Problem Relation Age of Onset Coronary artery disease Mother Family Status - Relation Status Age at Mother Level of Service:11993 [place] OFFICE/OUTPATIENT ESTABLISHED MOD MDM 30 MIN Normal [facility] Office Visiton 02-25-2024 Follow-up visit [id number] Allen Tran carol Young 1955 M Date Provider Department Center 02/25/2024 JEROD BANKS ELIAS Rosario Family History Problem Relation Age of Onset Coronary artery disease Mother Family Status - Relation Status Age at Mother Level of Service:[address] [place] OFFICE/OUTPATIENT NEW MODERATE MDM 45 MINUTES Normal [facility] Insurance Correspondenceon 0 01-30-2024 Insurance Correspondence [id number]#1.00TIFF Normal [facility] Consent for Procedure/Surger yon 01-22-2024 Consent for Procedure/Surgery [id number]#1.00TIFF Normal [facility] Physician Referralon 024 Physician Referral [id number]#1.00TIFF Normal [facility] Screenson 01-22-2024 Screens [id number]#1.00TIFF Normal [facility] Ambulatory Visit Summaryon 0 01-21-2024 Ambulatory Visit Summary KARENMIKENABEEL Hector :1955 Visit Date:01/21/2024 Ambulatory Visit Instructions Your [...] [facility] [address], [place] [address]- Medications What When Instructions Unchanged amlodipine (amLODIPine [...] content not included)... Normal [facility] Patient Educationon 01-21-20 24 Patient Education Urology [...] Follow these instructions at home: ? Take foeq-ean-pgkedml and prescription medicines only as told by [...] content not included)... Normal [facility] INSULINon 08-27-2021 Insulin 19.2 uIU/mL Normal 2.6-24.9 [facility] Comment on above: Performed By: #### I NSULIN #### [facility] [address] [place] [address] Dr. Forrest Lauren CBC AUTO DIFFon 08-26-2021 BASO # 0.1 103/ul Normal 0.0-0.1 [facility] Comment on above: Performed By: #### P SASC #### [facility] [address] [place] [address] Dr. Forrest Lauren Basophils/100 WBC (Bld) 0.8 % Normal 0.2-2.0 [facility] Comment on above: Performed By: #### P SASC #### [facility] [address] [place] [address] Dr. Forrest Lauren EO # 0.4 103/ul Normal 0.0-0.7 [facility] Comment on above: Performed By: #### P SASC #### [facility] [address] [place] [address] Dr. Forrest Lauren Eosinophils/100 WBC (Bld) 4.8 % Normal 0.9-7.0 [facility] Comment on above: Performed By: #### P SASC #### [facility] [address] [place] [address] Dr. Forrest Lauren Erythrocyte distribution width (RBC) [Ratio] 12.7 % Normal 11.0-15.0 [facility] Comment on above: Performed By: #### P SASC #### [facility] [address] [place] [address] Dr. Forrest Lauren Hematocrit (Bld) [Volume fraction] 48.3 % Normal 42.0-54.0 [facility] Comment on above: Performed By: #### P SASC #### [facility] [address] [place] [address] Dr. Forrest Lauren Hemoglobin (Bld) [Mass/Vol] 16.4 g/dL Normal 14.0-18.0 [facility] Comment on above: Performed By: #### P SASC #### [facility] [address] [place] [address] Dr. Forrest Lauren IG # 0.05 10e3/ul Critically high 0.00-0.03 [facility] Comment on above: Performed By: #### P SASC #### [facility] [address] [place] [address] Dr. Forrest Lauren IG % 0.6 % Critically high 0.0-0.5 [facility] Comment on above: Performed By: #### P SASC #### [facility] [address] [place] [address] Dr. Forrest Lauren LYMPH # 2.0 103/ul Normal 1.2-3.8 [facility] Comment on above: Performed By: #### P SASC #### [facility] [address] [place] [address] Dr. Forrest Laurne Lymphocytes/100 WBC (Bld) 22.6 % Normal 20.5-60.0 [facility] Comment on above: Performed By: #### P SASC #### [facility] [address] [place] [address] Dr. Forrest Lauren MANUAL DIFF REQ NO Normal [facility] Comment on above: Performed By: #### P SASC #### [facility] [address] [place] [address] Dr. Forrest Lauren MCH (RBC) [Entitic mass] 29.8 pg Normal 25.9-34.0 [facility] Comment on above: Performed By: #### P SASC #### [facility] [address] [place] [address] Dr. Forrest Lauren MCHC (RBC) [Mass/Vol] 34.0 g/dL Normal 29.9-35.2 [facility] Comment on above: Performed By: #### P SASC #### [facility] [address] [place] [address] Dr. Forrest Lauren MCV (RBC) [Entitic vol] 87.8 fL Normal 80.0-94.0 [facility] Comment on above: Performed By: #### P SASC #### [facility] [address] [place] [address] Dr. Forrest Lauren MONO # 0.7 103/ul Normal 0.3-0.8 [facility] Comment on above: Performed By: #### P SASC #### [facility] [address] [place] [address] Dr. Forrest Lauren Monocytes/100 WBC (Bld) 8.0 % Normal 1.7-12.0 [facility] Comment on above: Performed By: #### P SASC #### [facility] [address] [place] [address] Dr. Forrest Lauren NEUT # 5.7 103/ul Normal 1.4-6.5 [facility] Comment on above: Performed By: #### P SASC #### [facility] [address] [place] [address] Dr. Forrest Lauren Neutrophils/100 WBC (Bld) 63.2 % Normal 43.0-75.0 [facility] Comment on above: Performed By: #### P SASC #### [facility] [address] [place] [address] Dr. Forrest Lauren Platelet mean volume (Bld) [Entitic vol] 9.7 fL Normal 9.5-13.5 [facility] Comment on above: Performed By: #### P SASC #### [facility] [address] [place] [address] Dr. Forrest Lauren PLT 242 103/ul Normal 150-450 [facility] Comment on above: Performed By: #### P SASC #### [facility] [address] [place] [address] Dr. Forrest Lauren RBC 5.50 106/ul Normal 4.70-6.10 [facility] Comment on above: Performed By: #### P SASC #### [facility] [address] [place] [address] Dr. Forrest Lauren WBC 9.0 103/ul Normal 4.0-11.0 [facility] Comment on above: Performed By: #### P SASC #### [facility] [address] [place] [address] Dr. Forrest Lauren GLYCOHEMOGLOBIN A1Con 2021 ADA RECOMMENDATION ADA THERAPEUTIC TARG ET 6.0 - 7.0 ACTION SUGGESTED > 7.0 Normal [facility] Comment on above: Performed By: #### A 1C #### [facility] [address] [place] [address] Dr. Forrest Lauren Glucose [Mass/Vol] 194 mg/dL Normal [facility] Comment on above: Performed By: #### A 1C #### [facility] [address] [place] [address] Dr. Forrest Lauren HbA1c (Bld) [Mass fraction] 8.4 % Critically high <=6.0 [facility] Comment on above: Performed By: #### A 1C #### [facility] [address] [place] [address] Dr. Forrest Lauren LIPID PROFILEon 08-26-2021 CHOL-HDL RATIO NORM SEE BELOW Normal [facility] Comment on above: Result Comment: 3.3 - 4.4 LOW RISK 4.4 - 7.1 AVERAGE RISK 7.1 - 11.0 MODERATE RISK >11.0 HIGH RISK Performed By: #### P SASC #### [facility] [address] [place] [address] Dr. Forrest Lauren Cholesterol [Mass/Vol] 117 mg/dL Normal <=200 [facility] Comment on above: Performed By: #### P SASC #### [facility] [address] [place] [address] Dr. Forrest Lauren Cholesterol in HDL [Mass/Vol] 43 mg/dL Normal [facility] Comment on above: Performed By: #### P SASC #### [facility] [address] [place] [address] Dr. Forrest Lauren Cholesterol in LDL [Mass/Vol] 45.6 mg/dL Normal [facility] Comment on above: Performed By: #### P SASC #### [facility] [address] [place] [address] Dr. Forrest Lauren Cholesterol.total/C holesterol in HDL [Mass ratio] 2.7 {ratio} Normal [facility] Comment on above: Performed By: #### P SASC #### [facility] [address] [place] [address] Dr. Forrest Lauren HDL NORMAL > or = 60 mg/dl - LO W CARDIOVASCULAR RISK <40 mg/dl - HIGH CARDIOVASCULAR RISK Normal [facility] Comment on above: Performed By: #### P SASC #### [facility] [address] [address] [address] Forrest Lauren LDL CALC NORMAL SEE BELOW Normal [facility] Comment on above: Result Comment: <100 mg/dl OPTIMAL 100 - 129 mg/dl NEAR OR ABOVE OPTIMAL 130 - 159 mg/dl BORDERLINE HIGH 160 - 189 mg/dl HIGH >190 mg/dl VERY HIGH Performed By: #### P SASC #### [facility] [address] [address] [address] Forrest Lauren Triglyceride [Mass/Vol] 142 mg/dL Normal <=150 [facility] Comment on above: Performed By: #### P SASC #### [facility] [address] [address] [address] Forrest Lauren VLDL CALC 28.4 mg/dL Normal [facility] Comment on above: Performed By: #### P SASC #### [facility] [address] [place] [address] Dr. Forrest Lauren PROF 14(COMP METB)on 022 Albumin [Mass/Vol] 4.1 g/dL Normal 3.5-5.0 [facility] Comment on above: Performed By: #### P SASC #### [facility] [address] [place] [address] Dr. Forrest Lauren Albumin/Globulin [Mass ratio] 1.2 {ratio} Normal [facility] Comment on above: Performed By: #### P SASC #### [facility] [address] [place] [address] Dr. Forrest Lauren ALP [Catalytic activity/Vol] 82 U/L Normal 38-126 [facility] Comment on above: Performed By: #### P SASC #### [facility] [address] [address] [address] Forrest Lauren ALT [Catalytic activity/Vol] 38 U/L Normal 21-72 [facility] Comment on above: Performed By: #### P SASC #### [facility] [address] [place] [address] Dr. Forrest Lauren Anion gap [Moles/Vol] 12.7 mmol/L Normal [facility] Comment on above: Performed By: #### P SASC #### [facility] [address] [address] [address] Forrest Lauren AST [Catalytic activity/Vol] 18 U/L Normal 17-59 [facility] Comment on above: Performed By: #### P SASC #### [facility] [address] [address] [address] Forrest Lauren Bilirubin [Mass/Vol] 1.2 mg/dL Normal 0.2-1.3 [facility] Comment on above: Performed By: #### P SASC #### [facility] [address] [address] [address] Forrest Lauren Calcium [Mass/Vol] 9.7 mg/dL Normal 8.4-10.2 [facility] Comment on above: Performed By: #### P SASC #### [facility] [address] [address] [address] Forrest Lauren Chloride [Moles/Vol] 102 mmol/L Normal 98-107 [facility] Comment on above: Performed By: #### P SASC #### [facility] [address] [address] [address] Forrest Lauren CO2 [Moles/Vol] 30.6 mmol/L Critically high 22.0-30.0 [facility] Comment on above: Performed By: #### P SASC #### [facility] [address] [address] [address] Forrest Lauren Creatinine [Mass/Vol] 1.09 mg/dL Normal 0.66-1.25 [facility] Comment on above: Performed By: #### P SASC #### [facility] [address] [address] [address] Forrest Lauren EGFR-AF PUERTO RICAN >60 Normal >=60 [facility] Comment on above: Performed By: #### P SASC #### [facility] [address] [address] [address] Forrest Lauren EGFR-NON AF PUERTO RICAN >60 Normal >=60 [facility] Comment on above: Performed By: #### P SASC #### [facility] [address] [address] [address] Forrest Lauren Globulin (S) [Mass/Vol] 3.4 g/dL Normal [facility] Comment on above: Performed By: #### P SASC #### [facility] [address] [address] [address] Forrest Lauren Glucose [Mass/Vol] 238 mg/dL Critically high 74-106 [facility] Comment on above: Performed By: #### P SASC #### [facility] [address] [address] [address] Forrest Lauren Potassium [Moles/Vol] 4.3 mmol/L Normal 3.4-5.0 [facility] Comment on above: Performed By: #### P SASC #### [facility] [address] [address] [address] Forrest Lauren Protein [Mass/Vol] 7.5 g/dL Normal 6.1-8.2 [facility] Comment on above: Performed By: #### P SASC #### [facility] [address] [address] [address] Forrest Lauren Sodium [Moles/Vol] 141 mmol/L Normal 137-145 [facility] Comment on above: Performed By: #### P SASC #### [facility] [address] [address] [address] Forrest Lauren Urea nitrogen [Mass/Vol] 20.0 mg/dL Normal 9.0-20.0 [facility] Comment on above: Performed By: #### P SASC #### [facility] [address] [address] [address] Forrest Lauren Urea nitrogen/Creatinine [Mass ratio] 18.3 mg/mg Normal [facility] Comment on above: Performed By: #### P SASC #### [facility] [address] [place] [address] Dr. Forrest Lauren URIC ACID SERUMon 08-26-2021 Urate [Mass/Vol] 4.8 mg/dL Normal 3.5-8.5 [facility] Comment on above: Performed By: #### P SASC #### [facility] [address] [place] [address] Dr. Forrest Lauren Covid-19 PCR (CVDTB)on Sample Type Test performed using RT-PCR from a nasopharyngeal collected specimen. Normal [facility] Comment on above: Performed By: #### P SASC #### [facility] [address] [place] [address] Dr. Forrest Lauren SARS-CoV-2 (COVID-19) RNA MERA+probe Ql (Unsp spec) Detected Abnormal NOT DETECTED [facility] Comment on above: Result Comment: This test is not yet approved or cleared by the [place] FDA. When there are no FDA-approved or cleared tests available, and other criteria are met, FDA can make tests available under an emergency access mechanism called an Emergency Use Authorization (EUA). The EUA for this test is supported by the Professor Of Environmental Science of Health and Human Service's (HHS's) declaration [...] longer be used). Performed By: #### P SAS #### [facility] [address] [place] [address] Dr. Forrest Lauren POINT OF CARE GLUCOSEon Glucose [Mass/Vol] 255 mg/dL Critically high 74-106 [facility] Comment on above: Performed By: #### P OCGLUC #### [facility] [address] [place] [address] Matias Rivas XR CHEST 1 Von 12-07-2020 [...] versus small infiltrate. Electronically authenticated by: AMARIS BONDSCECILIA Date: 2020-12-06 22:04 Normal [facility] INSULINon 10-02-2020 Insulin 16.9 uIU/mL Normal 2.6-24.9 [facility] Comment on above: Performed By: #### P SASC #### [facility] [address] [place], [place] [id number] Dr. Forrest Lauren CBC AUTO DIFFon 10-01-2020 BASO # 0.1 103/ul Normal 0.0-0.1 [facility] Comment on above: Performed By: #### C BC #### [facility] [address] [place], [place] [id number] Matias Evelyn Basophils/100 WBC (Bld) 0.6 % Normal 0.2-2.0 [facility] Comment on above: Performed By: #### C BC #### [facility] [address] [place] [address] Matias Evelyn EO # 0.4 103/ul Normal 0.0-0.7 [facility] Comment on above: Performed By: #### C BC #### [facility] [address] [place] [address] Matias Evelyn Eosinophils/100 WBC (Bld) 4.2 % Normal 0.9-7.0 [facility] Comment on above: Performed By: #### C BC #### [facility] [address] [place] [address] Matias Evelyn Erythrocyte distribution width (RBC) [Ratio] 13.1 % Normal 11.0-15.0 [facility] Comment on above: Performed By: #### C BC #### [facility] [address] [place], [place] [id number] Matias Evelyn Hematocrit (Bld) [Volume fraction] 50.2 % Normal 42.0-54.0 [facility] Comment on above: Performed By: #### C BC #### [facility] [address] [place], [place] [id number] Matias Evelyn Hemoglobin (Bld) [Mass/Vol] 16.6 g/dL Normal 14.0-18.0 [facility] Comment on above: Performed By: #### C BC #### [facility] [address] [id number] Matias Rivas IG # 0.05 10e3/ul Critically high 0.00-0.03 [facility] Comment on above: Performed By: #### C BC #### [facility] [address] [id number] Matiaswali Rivas IG % 0.6 % Critically high 0.0-0.5 [facility] Comment on above: Performed By: #### C BC #### [facility] [address] [place] [address] Matiaswali Rivas LYMPH # 1.9 103/ul Normal 1.2-3.8 [facility] Comment on above: Performed By: #### C BC #### [facility] [address] [place] [address] Matias Rivas Lymphocytes/100 WBC (Bld) 22.2 % Normal 20.5-60.0 [facility] Comment on above: Performed By: #### C BC #### [facility] [address] [place], [place] [id number] Matias Rivas MANUAL DIFF REQ NO Normal [facility] Comment on above: Performed By: #### C BC #### [facility] [address] [place], [place] [id number] Matias Rivas MCH (RBC) [Entitic mass] 29.4 pg Normal 25.9-34.0 [facility] Comment on above: Performed By: #### C BC #### [facility] [address] [place] [address] Matiaswali Rivas MCHC (RBC) [Mass/Vol] 33.1 g/dL Normal 29.9-35.2 [facility] Comment on above: Performed By: #### C BC #### [facility] [address] [place], [place] [id number] Matiaswali Rivas MCV (RBC) [Entitic vol] 88.8 fL Normal 80.0-94.0 [facility] Comment on above: Performed By: #### C BC #### [facility] [address] [place], [place] [address] Matiaswali Rodasen MONO # 0.7 103/ul Normal 0.3-0.8 [facility] Comment on above: Performed By: #### C BC #### [facility] [address] [place], [place] [address] Matiaswali Rodasen Monocytes/100 WBC (Bld) 7.7 % Normal 1.7-12.0 [facility] Comment on above: Performed By: #### C BC #### [facility] [address] [place], [place] [id number] Matias Evelyn NEUT # 5.7 103/ul Normal 1.4-6.5 [facility] Comment on above: Performed By: #### C BC #### [facility] [address] [place], [place] [id number] Matiaswali Rivas Neutrophils/100 WBC (Bld) 64.7 % Normal 43.0-75.0 [facility] Comment on above: Performed By: #### C BC #### [facility] [address] [place], [place] [id number] Matiaswali Rivas Platelet mean volume (Bld) [Entitic vol] 10.4 fL Normal 9.5-13.5 [facility] Comment on above: Performed By: #### C BC #### [facility] [address] [place], [place] [id number] Matias Evelyn PLT 243 103/ul Normal 150-450 [facility] Comment on above: Performed By: #### C BC #### [facility] [address] [place], [place] [id number] Matias Evelyn RBC 5.65 106/ul Normal 4.70-6.10 [facility] Comment on above: Performed By: #### C BC #### [facility] [address] [place], [place] [id number] Matias Evelyn WBC 8.7 103/ul Normal 4.0-11.0 [facility] Comment on above: Performed By: #### C BC #### [facility] [address] [place], [place] [id number] Matias Evelyn FREE THYROXINE INDEX T7on 02 -26-2021 FTI 2.11 Normal [facility] Comment on above: Performed By: #### U TARIK, CMP, T7, PSASC, TSH, LIPID #### [facility] [address] [address] Matias Rivas T3U 34.0 % Normal 23.5-40.5 [facility] Comment on above: Performed By: #### U TARIK, CMP, T7, PSASC, TSH, LIPID #### [facility] [address] [address] Matias Rivas T4 [Mass/Vol] 6.20 ug/dL Normal 5.53-11.00 [facility] Comment on above: Performed By: #### U TARIK, CMP, T7, PSASC, TSH, LIPID #### [facility] [address] [place] [address] Matias Rivas GLYCOHEMOGLOBIN A1Con 2020 ADA RECOMMENDATION ADA THERAPEUTIC TARG ET 6.0 - 7.0 ACTION SUGGESTED > 7.0 Normal [facility] Comment on above: Performed By: #### A 1C #### [facility] [address] [place] [address] Matias Rivas Glucose [Mass/Vol] 266 mg/dL Normal [facility] Comment on above: Performed By: #### A 1C #### [facility] [address] [place] [address] Matias Rivas HbA1c (Bld) [Mass fraction] 10.9 % Critically high <=6.0 [facility] Comment on above: Performed By: #### A 1C #### [facility] [address] [place] [address] Matias Rivas LIPID PROFILEon 10-01-2020 CHOL-HDL RATIO NORM SEE BELOW Normal [facility] Comment on above: Result Comment: 3.3 - 4.4 LOW RISK 4.4 - 7.1 AVERAGE RISK 7.1 - 11.0 MODERATE RISK >11.0 HIGH RISK Performed By: #### P SASC #### [facility] [address] [place] [address] Dr. Forrest Lauren Cholesterol [Mass/Vol] 110 mg/dL Normal <=200 [facility] Comment on above: Performed By: #### P SASC #### [facility] [address] [address] [address] Forrest Lauren Cholesterol in HDL [Mass/Vol] 36 mg/dL Normal [facility] Comment on above: Performed By: #### P SASC #### [facility] [address] [address] [address] Forrest Lauren Cholesterol in LDL [Mass/Vol] 36.2 mg/dL Normal [facility] Comment on above: Performed By: #### P SASC #### [facility] [address] [address] [address] Forrest Lauren Cholesterol.total/C holesterol in HDL [Mass ratio] 3.1 {ratio} Normal [facility] Comment on above: Performed By: #### P SASC #### [facility] [address] [place] [address] Dr. Forrest Lauren HDL NORMAL > or = 60 mg/dl - LO W CARDIOVASCULAR RISK <40 mg/dl - HIGH CARDIOVASCULAR RISK Normal [facility] Comment on above: Performed By: #### P SASC #### [facility] [address] [address] [address] Forrest Lauren LDL CALC NORMAL SEE BELOW Normal [facility] Comment on above: Result Comment: <100 mg/dl OPTIMAL 100 - 129 mg/dl NEAR OR ABOVE OPTIMAL 130 - 159 mg/dl BORDERLINE HIGH 160 - 189 mg/dl HIGH >190 mg/dl VERY HIGH Performed By: #### P SASC #### [facility] [address] [place] [address] Dr. Forrest Lauren Triglyceride [Mass/Vol] 189 mg/dL Critically high <=150 [facility] Comment on above: Performed By: #### P SASC #### [facility] [address] [place] [address] Dr. Forrest Lauren VLDL CALC 37.8 mg/dL Normal [facility] Comment on above: Performed By: #### P SASC #### [facility] [address] [address] [address] Forrest Lauren PROF 14(COMP METB)on 021 Albumin [Mass/Vol] 4.1 g/dL Normal 3.5-5.0 [facility] Comment on above: Performed By: #### U TARIK, CMP, T7, PSASC, TSH, LIPID #### [facility] [address] [place] [address] Matias Evelyn Albumin/Globulin [Mass ratio] 1.2 {ratio} Normal [facility] Comment on above: Performed By: #### U TARIK, CMP, T7, PSASC, TSH, LIPID #### [facility] [address] [place] [address] Matias Evelyn ALP [Catalytic activity/Vol] 80 U/L Normal 38-126 [facility] Comment on above: Performed By: #### U TARIK, CMP, T7, PSASC, TSH, LIPID #### [facility] [address] [place] [address] Matias Evelyn ALT [Catalytic activity/Vol] 42 U/L Normal 21-72 [facility] Comment on above: Performed By: #### U TARIK, CMP, T7, PSASC, TSH, LIPID #### [facility] [address] [address] Matias Evelyn Anion gap [Moles/Vol] 12.3 mmol/L Normal [facility] Comment on above: Performed By: #### U TARIK, CMP, T7, PSASC, TSH, LIPID #### [facility] [address] [place] [address] Matias Evelyn AST [Catalytic activity/Vol] 24 U/L Normal 17-59 [facility] Comment on above: Performed By: #### U TARIK, CMP, T7, PSASC, TSH, LIPID #### [facility] [address] [place] [address] Matias Evelyn Bilirubin [Mass/Vol] 1.3 mg/dL Normal 0.2-1.3 [facility] Comment on above: Performed By: #### U TARIK, CMP, T7, PSASC, TSH, LIPID #### [facility] [address] [place] [address] Matias Evelyn Calcium [Mass/Vol] 9.3 mg/dL Normal 8.4-10.2 [facility] Comment on above: Performed By: #### U TARIK, CMP, T7, PSASC, TSH, LIPID #### [facility] [address] [address] Matias Evelyn Chloride [Moles/Vol] 103 mmol/L Normal 98-107 [facility] Comment on above: Performed By: #### U TARIK, CMP, T7, PSASC, TSH, LIPID #### [facility] [address] [address] Matias Evelyn CO2 [Moles/Vol] 30.0 mmol/L Normal 22.0-30.0 [facility] Comment on above: Performed By: #### U TARIK, CMP, T7, PSASC, TSH, LIPID #### [facility] [address] [address] Matias Evelyn Creatinine [Mass/Vol] 1.20 mg/dL Normal 0.66-1.25 [facility] Comment on above: Performed By: #### U TARIK, CMP, T7, PSASC, TSH, LIPID #### [facility] [address] [address] Matias Evelyn EGFR-AF PUERTO RICAN >60 Normal >=60 [facility] Comment on above: Performed By: #### U TARIK, CMP, T7, PSASC, TSH, LIPID #### [facility] [address] [place] [address] Matias Evelyn EGFR-NON AF PUERTO RICAN >60 Normal >=60 [facility] Comment on above: Performed By: #### U TARIK, CMP, T7, PSASC, TSH, LIPID #### [facility] [address] [place] [address] Matias Evelyn Globulin (S) [Mass/Vol] 3.5 g/dL Normal [facility] Comment on above: Performed By: #### U TARIK, CMP, T7, PSASC, TSH, LIPID #### [facility] [address] [place] [address] Matias Evelyn Glucose [Mass/Vol] 269 mg/dL Critically high 74-106 [facility] Comment on above: Performed By: #### U TARIK, CMP, T7, PSASC, TSH, LIPID #### [facility] [address] [place] [address] Matias Evelyn Potassium [Moles/Vol] 4.3 mmol/L Normal 3.4-5.0 [facility] Comment on above: Performed By: #### U TARIK, CMP, T7, PSASC, TSH, LIPID #### [facility] [address] [place] [address] Matias Evelyn Protein [Mass/Vol] 7.6 g/dL Normal 6.1-8.2 [facility] Comment on above: Performed By: #### U TARIK, CMP, T7, PSASC, TSH, LIPID #### [facility] [address] [place] [address] Matias Evelyn Sodium [Moles/Vol] 141 mmol/L Normal 137-145 [facility] Comment on above: Performed By: #### U TARIK, CMP, T7, PSASC, TSH, LIPID #### [facility] [address] [place] [address] Matias Evelyn Urea nitrogen [Mass/Vol] 17.0 mg/dL Normal 9.0-20.0 [facility] Comment on above: Performed By: #### U TARIK, CMP, T7, PSASC, TSH, LIPID #### [facility] [address] [place] [address] Matias Evelyn Urea nitrogen/Creatinine [Mass ratio] 14.2 mg/mg Normal [facility] Comment on above: Performed By: #### U TARIK, CMP, T7, PSASC, TSH, LIPID #### [facility] [address] [place] [address] Matias Evelyn TSHon 10-01-2020 TSH 1.574 uIU/mL Normal 0.470-4.68 0 [facility] Comment on above: Performed By: #### P SASC #### [facility] [address] [place] [address] [address] Forrest Lauren TSH RANGE SEE BELOW Normal [facility] Comment on above: Result Comment: <0.3 4 UIU/ml HYPERTHYROID 0.34-5.60 UIU/ml EUTHYROID >5.60 UIU/ml HYPOTHYROID Performed By: #### P SAS #### [facility] [address] [place], [place] [address] Dr. Forrest Lauren URIC ACID SERUMon 10-01-2020 Urate [Mass/Vol] 4.8 mg/dL Normal 3.5-8.5 [facility] Comment on above: Performed By: #### P SASC #### [facility] [address] [place], [place] [address] Dr. Forrest Lauren Cardiovascular Lab Reporton 08-03-2017 Cardiovascular Lab Report [facility] [id number] Physician: Jerod Miller M.D.Medicine Service Date: 2017Division of Birthdate: 6Cardiology Room #: CCAdult CardiovascularServicesUndell [facility] centeri [address] [address]Qhslv Fax Cardiovascular Laboratory ReportINDICATION: Nabeel Tran is a 62-year-old man known to [...] the right internal jugular vein and a 6-Sierra Leonean x 11cm sheath was placed. A 6-[place]ierra Leonean Griffith catheter was used for right heartcatheterization with measurement of pressures and calculation of cardiacoutput using the estimated Luke method. Griffith catheter was removed.Using ultrasound guidance and micropuncture technique, access was obtainedin the left radial artery and a 6-Sierra Leonean x 11 cm Hydrophilic sheath wasadvanced. Verapamil was given through the sheath and heparin wasadministered intravenously. Note that Samuel's test was favorable.Bilateral selective coronary angiography was [...] follow up in Cardiology Clinic.Electronically Signed by:Jerod Staton M.D. 08/11/2017 03:22 A Jerod Staton M.D.Date Dict: 08/02/2017/02:42 P/Jerod Staton M.D.Date Trans: 08/03/2017 11:29 A/Get_JN:[id number]: Neivlle Mata D.O. [address] [facility] [address] [facility] [address] [facility] Vital Signs Date Time Vital Sign Value Performing Clinician Jose fairchild 08-07-2024 10:05-0500 Body mass index (BMI) [Ratio] 23.57 kg/m2 Christopher Deepa DO Work Phone: [facility] 08-07-2024 10:05-0500 Body weight 83.28 kg Christopher Deepa DO Work Phone: [facility] 08-07-2024 10:05-0500 Diastolic blood pressure 62 mm[Hg] Christopher Deepa DO Work Phone: [facility] 08-07-2024 10:05-0500 Heart rate 74 /min Christopher Deepa DO Work Phone: [facility] 08-07-2024 10:05-0500 SaO2% (BldA) [Mass fraction] 96 % Christopher Deepa DO Work Phone: [facility] 08-07-2024 10:05-0500 Systolic blood pressure 90 mm[Hg] Christopher Deepa DO Work Phone: [facility] 07-29-2024 09:12-0500 Body height 188 cm Regis Ibarra MD Work Phone: [facility] 07-29-2024 09:12-0500 Body mass index (BMI) [Ratio] 22.7 kg/m2 Regis Ibarra MD Work Phone: [facility] 07-29-2024 09:12-0500 Body temperature 97.3 [degF] Regis Ibarra MD Work Phone: [facility] 07-29-2024 09:12-0500 Body weight 80.2 kg Regis Ibarra MD Work Phone: [facility] 06-17-2024 12:25-0500 Body height 188 cm Shelby Arenas DO Work Phone: [facility] 06-17-2024 12:25-0500 Body mass index (BMI) [Ratio] 20.29 kg/m2 Christopher Deepa DO Work Phone: [facility] 06-17-2024 12:25-0500 Body weight 71.67 kg Christopher Deepa DO Work Phone: [facility] 06-17-2024 12:25-0500 Diastolic blood pressure 75 mm[Hg] Christopher Deepa DO Work Phone: [facility] 06-17-2024 12:25-0500 Heart rate 98 /min Christopher Deepa DO Work Phone: [facility] 06-17-2024 12:25-0500 SaO2% (BldA) [Mass fraction] 93 % Christopher Deepa DO Work Phone: [facility] 06-17-2024 12:25-0500 Systolic blood pressure 118 mm[Hg] Favianopher Deepa DO Work Phone: [facility] 06-03-2024 09:54-0400 Diastolic blood pressure 68 mm[Hg] Jassi NILL [facility] 06-03-2024 09:54-0400 Heart rate 105 /min Jassi NILL [facility] 06-03-2024 09:54-0400 Respiratory rate 16 /min Jassi NILL [facility] 06-03-2024 09:54-0400 Systolic blood pressure 103 mm[Hg] Jassi NILL [facility] 05-29-2024 06:42-0400 Body height 190.5 cm DO González Kuns Work Phone: [facility] 05-29-2024 06:42-0400 Body weight 78.47 kg DO González Kuns Work Phone: [facility] 01-21-2024 11:44-0400 Blood Pressure Location Moody POP [facility] 01-21-2024 11:44-0400 Diastolic blood pressure 72 mm[Hg] Moody POP [facility] 01-21-2024 11:44-0400 Heart rate 70 /min Moody POP [facility] 01-21-2024 11:44-0400 Respiratory rate 16 /min Moody POP [facility] 01-21-2024 11:44-0400 Systolic blood pressure 108 mm[Hg] Moody POP [facility] Encounters Encounter Date Encounter Type Care Provider Facility Start: 08-15-2024 End: 08-15-2024 Telephone encounter [facility]bar[facility] Start: 08-13-2024 End: 08-13-2024 Telephone encounter Regis Ibarra MD Work Phone: [facility] Comment on above: Need office notes fa xed Start: 08-12-2024 End: 08-12-2024 Clinisync Result Encounter Shelby Arenas DO Work Phone: [facility] External Department Unsolicited Start: 08-12-2024 End: 08-12-2024 Clinisync Result Encounter Shelby Arenas DO Work Phone: [facility] External Department Unsolicited Start: 08-12-2024 End: 08-12-2024 Telephone encounter Regis Ibarra MD [facility] Start: 08-07-2024 End: 08-07-2024 Bamboo flowsheet Shelby Arenas DO Work Phone: [facility] Start: 08-07-2024 End: 08-07-2024 Bamboo flowsheet Christopher Deepa DO Work Phone: [facility] Start: 08-07-2024 End: 08-07-2024 Office outpatient visit 25 minutes Christopher Deepa DO Work Phone: [facility] Comment on above: Lymphoma, unspecifie d body region, unspecified lymphoma type (CMS/HCC) (Primary Dx); Malnutrition, unspecified type (CMS/HCC); Polyneuropathy Start: 08-07-2024 End: 08-07-2024 ambulatory CHRISTOPHER DEEPA Not Available Start: 07-29-2024 End: 07-29-2024 Office outpatient new 45 minutes Rehab Flaco ELLIS [facility] Comment on above: Sensorineural hearin g loss, asymmetrical (Primary Dx); Vestibular schwannoma (CMS-HCC); Hodgkin lymphoma, unspecified Hodgkin lymphoma type, unspecified body region (CMS-HCC) Start: 07-10-2024 End: 07-10-2024 Bamboo flowsheet Christopher Deepa DO Work Phone: [facility] Start: 07-10-2024 End: 07-10-2024 Bamboo flowsheet Christopher Deepa DO Work Phone: [facility] Start: 07-10-2024 End: 07-10-2024 Patient encounter procedure Christopher Deep[facility] DO [facility] Comment on above: Weakness (Primary Dx ); Polyneuropathy Start: 07-10-2024 End: 07-10-2024 ambulatory CHRISTOPHER DEEPA Not Available Start: 07-02-2024 End: 07-02-2024 Patient encounter procedure Lillian Nagel AUD Work Phone: [facility] Comment on above: Sensorineural hearin g loss, bilateral (Primary Dx) Start: 07-02-2024 End: 07-02-2024 ambulatory LILLIAN NAGEL Not Available Start: 07-02-2024 End: 07-02-2024 Bamboo flowsheet Lillian Nagel AUD Work Phone: [facility] Start: 07-02-2024 End: 07-02-2024 Bamboo flowsheet Lillian Nagel AUD Work Phone: [facility] Start: 06-27-2024 End: 06-27-2024 Bamboo flowsheet Lillian Nagel AUD Work Phone: [facility] Start: 06-27-2024 End: 06-27-2024 Bamboo flowsheet Lillian Nagel AUD Work Phone: [facility] Start: 06-27-2024 End: 06-27-2024 Patient encounter procedure Lillian Nagel AUD Work Phone: [facility] Comment on above: Sensorineural hearin g loss, bilateral (Primary Dx) Start: 06-27-2024 End: 06-27-2024 ambulatory LILLIAN NAGEL Not Available Start: 06-19-2024 End: 06-19-2024 ambulatory [facility] Start: 06-17-2024 End: 06-17-2024 Bamboo flowsheet Shelby Arenas DO Work Phone: [facility] Start: 06-17-2024 End: 06-17-2024 Bamboo flowsheet Shelby 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) Start: 06-16-2024 End: 06-16-2024 ambulatory YANNA HARRISON Not Available Start: 06-09-2024 End: 06-09-2024 ambulatory Moody POP Facility:[facility] Start: 06-09-2024 End: 06-09-2024 Patient encounter procedure Moody POP [facility] Start: 06-03-2024 End: 06-04-2024 ambulatory Jassi ALEGRIA Facility:CD:[id number] Start: 06-03-2024 End: 06-03-2024 Patient encounter procedure Jassi ALEGRIA [facility] [place] Start: 05-29-2024 End: 05-29-2024 Patient encounter procedure DO González Stevens Work Phone: [facility] Work Phone: Start: 05-29-2024 End: 05-29-2024 ambulatory DO González Kuns Work Phone: [facility] Work Phone: Start: 05-26-2024 End: 05-26-2024 Bamboo flowsheet Yanna Harrison CCC-A Work Phone: [facility] Start: 05-26-2024 End: 05-26-2024 Bamboo flowsheet Yanna Harrison CCC-A Work Phone: [facility] Start: 05-26-2024 End: 05-26-2024 Clinical Support Yanna Harrison CCC-A Work Phone: [facility] Comment on above: 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) Start: 04-30-2024 End: 04-30-2024 ambulatory Jassi Rosi YANCEYL Facility:[facility] Start: 04-30-2024 End: 04-30-2024 Patient encounter procedure Jassi Rosi YANCEYL [facility] [place] Start: 04-28-2024 ambulatory Jassi NILL Facility:[facility] Start: 04-23-2024 End: 04-23-2024 ambulatory DO González Kuns Work Phone: [facility] Work Phone: Start: 04-23-2024 End: 04-23-2024 Departed Referred DO González Kuns Work Phone: [facility] [place] [facility] Start: 04-23-2024 ambulatory Jassi ALEGRIA Facility:[facility] Johnson Start: 04-22-2024 End: 04-23-2024 ambulatory Jassi YANCEYL Facility:CD:[id number] Start: 04-21-2024 Non-patient / Non-visit DO Felipa tt Kuns [facility] Work Phone: Start: 04-11-2024 End: 04-11-2024 ambulatory DO González Kuns Work Phone: [facility] Work Phone: Start: 04-11-2024 End: 04-11-2024 Departed Referred DO González Kuns Work Phone: [facility] Start: 03-28-2024 End: 03-28-2024 ambulatory [facility] Start: 02-25-2024 End: 02-25-2024 ambulatory [facility] Start: 02-11-2024 End: 02-11-2024 ambulatory Moody POP Facility:CD:[id number] Start: 01-21-2024 End: 01-21-2024 ambulatory Moody POP Facility:[facility] [place] Start: 01-21-2024 End: 01-21-2024 Patient encounter procedure Moody R DONN [facility] Start: 09-12-2023 ambulatory Jassi AIRAM Facility:[facility] Start: 08-26-2021 End: 08-26-2021 ambulatory AILIN BAKER Facility:[facility] Start: 02-23-2021 ambulatory AILIN BAKER Facility:[facility] 1 Start: 12-06-2020 End: 12-07-2020 ambulatory ILAN TODD Facility:[facility] Start: 10-07-2020 Encounter for genera l adult medical examination without abnormal findings AILIN BAKER [facility] Start: 10-01-2020 End: 10-02-2020 ambulatory AILIN BAKER Facility:[facility] Start: 10-01-2020 End: 10-02-2020 Encounter for general adult medical examination without abnormal findings AILIN BAKER Facility: Start: 2017 End: 08-03-2017 Ambulatory PROVIDER UNKNOWN Facility:[facility] Start: 07-24-2017 End: 07-25-2017 Ambulatory DEFAULT PHYSICIAN Facility:[facility] Start: 07-19-2017 End: 07-20-2017 Ambulatory DEFAULT PHYSICIAN Facility:[facility] Start: 06-18-2017 End: 06-19-2017 Ambulatory DEFAULT PHYSICIAN Facility:[facility] Procedures Date Procedure Procedure Detail Performing Clinician Start: 08-12-2024 MLR HEMOGLOBIN A1C Chri yohan Arenas DO Work Phone: Start: 07-10-2024 End: 07-10-2024 Needle emg ea extremty w/paraspinl area complete Shelby Arenas DO Work Phone: Start: 06-04-2024 Insertion of implant able venous access port Moody POP Start: 05-29-2024 XR pre/post mri xray DO González [employer] Work Phone: Start: 05-29-2024 MRI of cervical spin e with contrast DO González [employer] Work Phone: Start: 05-29-2024 MRI of head DO González call Work Phone: Start: 04-23-2024 Incisional biopsy Sudhir ALEGRIA Start: 08-26-2021 PSA screening AILIN KHAN Comment on above: Performed By: #### P SASC #### [facility] [address] [place] [address] [address] Forrest Lauren Start: 10-01-2020 PSA screening AILIN KHAN Comment on above: Performed By: #### U TARIK, CMP, T7, PSASC, TSH, LIPID #### [facility] [address] [place] [address] Matias Evelyn Start: 08-06-2013 Colonoscopy Moody CARISSA ASHER Start: 08-06-2004 Neoplasm of brain (disorder) Moody POP Back structure, excl uding neck (body structure) Moody POP Removal of acoustic neuroma Jassi ALEGRIA Spinal arthrodesis Jassi INFANTE Tonsillectomy Moody DONN Plan of Treatment Date Care Activity Detail Author Start: 07-31-2025 Tobacco Screening Tobacco Screening [facility] Start: 07-29-2025 Adult BMI Screening Adult BMI Screen ing [facility] Start: 07-29-2025 Tobacco Screening Tobacco Screening [facility] Start: 09-19-2024 End: 09-19-2024 Clinical Support 09/19/2024 9:00 AM EST Clinical Support [facility] [address] [place] [address] Pilar Avina AUD [address] [place] [address] [facility] Start: 09-04-2024 End: 09-04-2024 Patient encounter procedure [facility] Start: 08-07-2024 End: 08-07-2025 Cobalamin (Vitamin B12) [Mass/volume] in Serum or Plasma Vitamin B12 Lab Routine Lymphoma, unspecified body region, unspecified lymphoma type (CMS/HCC) Expected: 08/07/2024 (Approximate), Expires: 08/07/2025 [facility] Comment on above: Expected: 08/07/2024 (Approximate), Expires: 08/07/2025 Start: 08-07-2024 End: 08-07-2025 Copper, serum Copper, serum Lab Routine Lymphoma, unspecified body region, unspecified lymphoma type (CMS/HCC) Expected: 08/07/2024 (Approximate), Expires: 08/07/2025 [facility] Comment on above: Expected: 08/07/2024 (Approximate), Expires: 08/07/2025 Start: 08-07-2024 End: 08-07-2025 Hemoglobin A1c/Hemoglobin.total in Blood Hemoglobin A1c Lab Routine Lymphoma, unspecified body region, unspecified lymphoma type (CMS/HCC) Expected: 08/07/2024 (Approximate), Expires: 08/07/2025 [facility] Work Phone: Comment on above: Expected: 08/07/2024 (Approximate), Expires: 08/07/2025 Start: 08-07-2024 End: 08-07-2025 Immunofixation electrophoresis Immunofixation electrophoresis Lab Routine Lymphoma, unspecified body region, unspecified lymphoma type (CMS/HCC) Expected: 08/07/2024 (Approximate), Expires: 08/07/2025 [facility] Comment on above: Expected: 08/07/2024 (Approximate), Expires: 08/07/2025 Start: 08-07-2024 End: 08-07-2025 Reagin Ab [Presence] in Serum by RPR RPR Lab Routine Lymphoma, unspecified body region, unspecified lymphoma type (CMS/HCC) Expected: 08/07/2024 (Approximate), Expires: 08/07/2025 [facility] Comment on above: Expected: 08/07/2024 (Approximate), Expires: 08/07/2025 Start: 08-07-2024 End: 08-07-2025 Thyrotropin [Units/volume] in Serum or Plasma TSH Lab Routine Lymphoma, unspecified body region, unspecified lymphoma type (CMS/HCC) Expected: 08/07/2024 (Approximate), Expires: 08/07/2025 [facility] Comment on above: Expected: 08/07/2024 (Approximate), Expires: 08/07/2025 Start: 08-07-2024 End: 08-07-2025 Vitamin B6 Vitamin B6 Lab Routine Lymphoma, unspecified body region, unspecified lymphoma type (CMS/HCC) Expected: 08/07/2024 (Approximate), Expires: 08/07/2025 [facility] Comment on above: Expected: 08/07/2024 (Approximate), Expires: 08/07/2025 Start: 08-07-2024 End: 08-07-2024 Patient encounter procedure [facility] Comment on above: Arrived Start: 07-10-2024 End: 07-10-2024 Patient encounter procedure [facility] Comment on above: Arrived Start: 07-02-2024 End: 07-02-2024 Patient encounter procedure [facility] Comment on above: Arrived Start: 06-27-2024 End: 06-27-2024 Patient encounter procedure 06/27/2024 9:00 AM EST Office Visit [facility] [address] [place] [address] Lillian Nagel, AUD [address] [place] [address] Arrived [facility] Comment on above: Arrived Start: 06-17-2024 End: 06-17-2025 EMG 2 Extremities EMG 2 Extremities Neurology Routine Weakness Expected: 06/17/2024, Expires: 06/17/2025 [facility] Work Phone: Comment on above: Expected: 06/17/2024 , Expires: 06/17/2025 Start: 06-16-2024 End: 06-16-2024 Patient encounter procedure 06/16/2024 3:00 PM EST Office Visit [facility] [address] [place] [address] [facility] Start: 06-05-2024 End: 06-05-2024 Patient encounter procedure 06/05/2024 11:00 AM EDT [facility] [address] [place] [address] [place] [address] Shelby Arenas, [address] [place] [address] [facility] Start: 04-06-2024 Influenza vaccination Influenza Vacc ine [facility] Start: 2021 Fall Risk Screening Fall Risk Screen ing [facility] Start: 2006 Administration of varicella zoster vaccine Zoster (Shingles) Vaccine (1 of 2) [facility] Start: 1975 Administration of varicella zoster vaccine Zoster (Shingles) Vaccine (1 of 2) [facility] Start: 1975 DTaP,Tdap and Td Vac cines (1 - Tdap) DTaP,Tdap and Td Vaccines (1 - Tdap) [facility] Start: 1968 [facility] function tests Auditory function tests Audiology Routine 05/26/2024 1:35 PM EDT [facility] Work Phone: Payers Date Payer Category Payer Medicare [employer]ARE [id number] 2023 Medicare (Managed Care) [employer] MEDICARE [id number] 2023 Private Health Insurance [id number] 1959 [facility] [id number] 1959 Medicare [id number] 1959 Self-pay 1956 Unknown [id number] 2.16.840.1.245322.3.579. 2.593 1956 Unknown [id number] 2.16.840.1.351347.3.579. 2.593 1956 Unknown [id number] 2.16.840.1.789448.3.579. 2.593 1956 Unknown [id number] 2.16.840.1.987305.3.579. 2.593 1956 Unknown [id number] 2.16.840.1.474165.3.579. 2.727 1956 Unknown [id number] 2.16.840.1.015438.3.579. 2.727 1956 Unknown [id number] 2.16.840.1.724022.3.579. 2.727 1956 Unknown [id number] 2.16.840.1.451197.3.579. 2.727 1956 Unknown [id number] 2.16.840.1.050930.3.579. 2.727 1956 Unknown [id number] 2.16.840.1.028454.3.579. 2.727 1956 Unknown [id number] 2.16.840.1.836153.3.579. 2.727 1956 Unknown [id number] 2.16.840.1.460370.3.579. 2.727 1956 Unknown [id number] 2.16.840.1.954323.3.579. 2.1259 1956 Unknown [id number] 2.16.840.1.598943.3.579. 2.1259 1956 Unknown [id number] 2.16.840.1.950401.3.579. 2.1259 1956 Unknown [id number] 2.16.840.1.053514.3.579. 2.1259 1956 Unknown [id number] 2.16.840.1.664672.3.579. 2.1259 1956 Unknown [id number] 2.16.840.1.539373.3.579. 2.1259 1956 Unknown [id number] 2.16.840.1.525514.3.579. 2.1259 Private Health Insurance [facility] [id number] Unknown Unknown [place] BC/BS [id number] Unknown [id number] 2.16.840.1.075261.3.579. 2.531 Unknown [id number] 2.16.840.1.363760.3.579. 2.531 Unknown [id number] 2.16.840.1.492426.3.579. 2.531 Social History Date Type Detail Facility Start: 01-21-2024 End: 07-29-2024 Tobacco smoking status Never smoked tobacco (finding) [facility] Tobacco smoking status Never [facility] Start: 07-29-2024 End: 07-31-2024 Sex Assigned At Male [facility] Start: 1955 Sex Assigned At Male [facility] Tobacco smoking stat NHIS Tobacco smoking consumption unknown [facility] Start: 1955 Sex assigned at Not on file [facility] Start: 07-29-2024 Tobacco use and exposure Smokeless tobacco non-user [facility] Start: 07-31-2024 Alcoholic beverage intake Lifetime non-drinker (finding) [facility] Start: 07-29-2024 End: 07-31-2024 History of Social function [facility] Start: 05-15-2024 Sex Male (finding) [facility] Start: 05-15-2024 Gender identity Identifies as male gender (finding) [facility] Start: 05-15-2024 Sexual orientation Heterosexual (finding) [facility] Functional Status Date Assessment Result Facility 06-03-2024 Functional Status N/A [facility] [place] 04-30-2024 Functional Status N/A [facility] [place] 01-21-2024 Functional Status N/A [facility] Clinical Notes 01-21-2024 to 08-15-2024 Telephone Encounter - Regis Ibarra MD - 08/15/2024 10:28 AM ESTTelephone Encounter - Allison Fortune CNA - 08/15/2024 10:28 AM ESTTelephone Encounter - Regis Ibarra MD - 08/15/2024 10:28 AM EST Note Date & Type Note Facility 08-15-2024 Miscellaneous Notes Thank you Allison. I do not see a report for the MRI Brain. Do we have that radiology report? I just looked and it looks like they never faxed that one or it got lost. I can call to have them resend it or it looks like it is in under the imaging. Let me know what you would like me to do. documented in this encounter [facility] 08-15-2024 Telephone encounter Note Thank you Allison. I do not see a report for the MRI Brain. Do we have that radiology report? [facility] 08-15-2024 Telephone encounter Note I just looked and it looks like they never faxed that one or it got lost. I can call to have them resend it or it looks like it is in under the imaging. Let me know what you would like me to do. [facility] 08-13-2024 Miscellaneous Notes Ailin Green's [facility] - [facility] called 08/13, patient saw Dr. bIarra on 07/29/24. Lorna needs office notes faxed to [phone]. Faxed over office not to number provided. documented in this encounter [facility] 08-13-2024 Telephone encounter Note Ailin Green's Office - [facility] called 08/13, patient saw Dr. Ibarra on 07/29/24. Lorna needs office notes faxed to [phone]. [facility] 08-13-2024 Telephone encounter Note Faxed over office not to number provided. [facility] 08-12-2024 Miscellaneous Notes Just wanted to check if anyone had gotten his head and neck imaging from the outside hospital back? documented in this encounter [facility] 08-12-2024 Telephone encounter Note Just wanted to check if anyone had gotten his head and neck imaging from the outside hospital back? [facility] 08-07-2024 History of Present illness Narrative Images from the original note were not included. Chief complaint: Unsteadiness and generalized weakness and falls Subjective Nabeel Hector Tran, 69 y.o., male Patient presents today for a follow up for weakness and gait instability. He had an EMG completed for review. He is accompanied by his . His states he has been sick lately from his chemo. She states he is still having weakness in bilateral legs and feet. He is ambulating with a cane. They admit to some stumbles but deny any falls. They deny any new concerns at this time. Review of Systems Constitutional: Negative for appetite change, fatigue and fever. Respiratory: Negative for cough, shortness of breath and wheezing. Cardiovascular: Negative for chest pain, palpitations and leg swelling. Gastrointestinal: Negative for abdominal pain, constipation, diarrhea and nausea. Musculoskeletal: Positive for gait problem. Negative for arthralgias and myalgias. Neurological: Positive for weakness. Negative for dizziness, tremors, numbness and headaches. No past medical history on file. No past surgical history on file. No family history on file. Social History Tobacco Use Smoking status: Not on file Smokeless tobacco: Not on file Substance Use Topics Alcohol use: Not on file Allergies: Patient has no known allergies. Vitals: 08/07/24 1005 BP: 90/62 Pulse: 74 SpO2: 96% Body mass index is 23.57 kg/m . weight: 183 lb 9.6 oz Neurologic exam: Mental status: Patient appears to be tired and generally weak. The states that they have been admitted multiple times in the last few months. Awake, alert to person, place and time. Recent and remote memory are intact. Language is fluent without aphasia. Attention and concentration are normal. Fund of knowledge is appropriate for level of education. Cranial nerves: CN II: Visual acuity is normal. Visual evans full to confrontation. CN III, IV, : pupils equal round and reactive to light. Extraocular movements intact. No ptosis present. CN V: Facial sensation is normal. CN VII: Full and symmetric facial movement. CN VIII: Patient has no hearing on the right (History of schwannoma status post resection) and is hard of hearing on the left CN IX and X: Palate elevates symmetrically. CN XI: Shoulder shrug is normal bilaterally. CN XII: Tongue is midline without atrophy or fasciculation. Motor: RUE Strength deltoid, , biceps , triceps , wrist extensors , wrist flexor , reproduction production manager strength 4-/5. LUE Strength deltoid , biceps , triceps , wrist extensors , wrist flexor , reproduction production manager strength 4-/5. RLE Strength illopsoas, quadriceps, tibialis anterior, and gastrocnemius strength 4-/5. LLE Strength illopsoas, quadriceps, tibialis anterior, and gastrocnemius strength 4-/5. Normal tone x4 extremities. Muscle bulk is substantially reduced Sensory: Sensation is intact to light touch throughout Four extremities. Reflexes: RUE biceps reflex 2+ brachioradialis reflex 2+ . LUE biceps reflex 1+ brachioradialis reflex 2+ . RLE knee reflex 0 . LLE knee reflex 1+ . Flowers's sign negative. Coordination: [id number]-bo-mmpu testing and rapid alternating movements are normal Gait: Waking c a cane today Review and summary of old records: EMG of the BLE on 07/10/24: polyneuropathy motor greater than sensory and severe in degree electrically. MRI of the brain with and without contrast on 05/29/2024: Enhancement along the right internal auditory canal extending into the apex. This may represent residual schwannoma. Enhancement along the basal turn of the cochlea and along the right facial nerve involving the labyrinthine in genetically segments. This may be postoperative or represent residual schwannoma. This is unchanged. There is a small amount of right-sided mastoid effusion without evidence of mastoidectomy. Chronic microvascular ischemic diseases are redemonstrated. CT of the brain without contrast on 04/21/2024: No acute process Assessment/Plan Diagnoses and all orders for this visit: Malnutrition, unspecified type (CMS/HCC)/ Failure to thrive Weakness/Polyneuropathy History of benign schwannoma Lymphoma, unspecified body region, unspecified lymphoma type (CMS/HCC) It is my impression that the patient has generalized weakness and gait instability. He was recently diagnosed with lymphoma which seems to be localized to the right chest area. He has just undergone his 1st chemotherapy treatment within the last few weeks. His tells me that he has lost over 150 lb in the last 9 months. His muscle tone is very poor. He is in a wheelchair. He has lost substantial body weight and seems very fatigued and tired. It would be my suspicion that the malignancy is the cause of this substantial weight loss. MRI of the brain did demonstrate schwannoma on the right which was likely residual from prior surgery 20 years ago. It also demonstrated postoperative changes of the right facial nerve. Chronic microvascular changes were determined. Otherwise, no acute process. The patient is a diabetic. I am unclear as to last hemoglobin A1c. The patient has had chemotherapy but only 1 recent treatment and the symptoms preceded the chemotherapy by more than 6 months. The patient had nonalcoholic. I believe the patient's weight loss is the most likely culprit to his generalized weakness and decline in function. Plan: I suggested very close follow up with the Oncology team in order to assess nutritional status and consider dietary consultation I suggest continued treatment of lymphoma at the discretion of the oncology team Neuropathy lab eval PT Handicap lisandra provided Pt has been fully educated on their diagnosis, treatment options, follow up plan, and return instructions documented in this encounter [facility] 07-29-2024 History of Present illness Narrative Images from the original note were not included. [facility] [address] [place] [id number] SUBJECTIVE: Patient ID ([id number]): Nabeel Young Irene is a 68 y.o. male presents today for Chief Complaint Patient presents with Cerumen Impaction Bilateral Hearing Loss Laterality HPI: Nabeel is presenting today with bilateral profound hearing loss. He had an acoustic neuroma resected at the [facility] about 20 years ago on the right side, and since then he has not had any hearing there. He used to be able to hear well out of his left ear up until a few months ago where he suddenly lost hearing. It was around the same time he got diagnosed with lymphoma so he did not have any kind of treatment with steroids, per his family member with him. He has tried using hearing aids but they do not seem to work too well. He has gotten an MRI head and neck at another facility, per his family member. No images or reports available here. He is currently undergoing treatment for his lymphoma, no information available in our system. Family member states that the lymphoma involved his armpit in a few spots in his lungs. HISTORY: Past Medical History: Diagnosis Date Cancer ([facility]) Past Surgical History: Procedure Laterality Date TUNNEL CATHETER/PORT/TUBE CHANGE History reviewed. No pertinent family history. Social History Socioeconomic History Marital status: Spouse name: Not on file Number of children: Not on file Years of education: Not on file Highest education level: Not on file Occupational History Not on file Tobacco Use Smoking status: Never Smokeless tobacco: Never Vaping Use Vaping status: Never Used Substance and Sexual Activity Alcohol use: Never Drug use: Never Sexual activity: Defer Other Topics Concern Not on file Social History Narrative Not on file Social Drivers of Health Financial Resource Strain: Not on file Food Insecurity: Not on file Transportation Needs: Not on file Physical Activity: Not on file Stress: Not on file Social Connections: Not on file Interpersonal Safety: Not on file Housing Instability: Not on file No Known Allergies Current Outpatient Medications Medication Sig Dispense Refill atorvastatin (LIPITOR) 10 mg tablet Take 1 tablet (10 mg total) by mouth in the morning. dilTIAZem CD (CARDIZEM CD) 240 mg 24 hr capsule Take 1 capsule (240 mg total) by mouth in the morning. ELIQUIS 5 mg tablet Take 1 tablet (5 mg total) by mouth in the morning and 1 tablet (5 mg total) before bedtime. JANUVIA 100 mg tablet Take 1 tablet (100 mg total) by mouth in the morning. liothyronine (CYTOMEL) 5 MCG tablet Take 2 tablets (10 mcg total) by mouth in the morning. metoprolol tartrate (LOPRESSOR) 25 mg tablet Take 2 tablets (50 mg total) by mouth in the morning and 2 tablets (50 mg total) before bedtime. ondansetron ODT (ZOFRAN ODT) 4 mg disintegrating tablet Dissolve 1 tablet (4 mg total) on tongue as needed. pantoprazole (PROTONIX) 40 mg EC tablet Take 1 tablet (40 mg total) by mouth every morning before breakfast. sucralfate (CARAFATE) 1 gram tablet Take 1 tablet (1 g total) by mouth in the morning and 1 tablet (1 g total) at noon and 1 tablet (1 g total) in the evening and 1 tablet (1 g total) before bedtime. No current facility-administered medications for this visit. REVIEW OF SYSTEMS: Review of Systems Constitutional: Negative for chills and fever. HENT: Positive for hearing loss (right side deafness). Negative for ear discharge, ear pain, sore throat and tinnitus. Eyes: Negative for discharge and visual disturbance. Respiratory: Negative for cough and shortness of breath. Cardiovascular: Negative for chest pain and palpitations. Gastrointestinal: Negative for nausea and vomiting. Endocrine: Negative for cold intolerance and heat intolerance. Genitourinary: Negative for difficulty urinating. Musculoskeletal: Positive for gait problem. Skin: Negative for color change. Allergic/Immunologic: Negative for environmental allergies and food allergies. Neurological: Positive for headaches. Negative for dizziness and light-headedness. Hematological: Bruises/bleeds easily. Psychiatric/Behavioral: Negative for confusion. Data Reviewed: I reviewed the past medical history, surgical history, allergies, medications, labs, social history, all pertinent notes. Audio reviewed (patient), no hearing on the right, severe SNHL on L Cardiology note reviewed, has ENE. Referral note reviewed, cerumen impaction performed by referring provider, referred to ENT. PHYSICAL EXAMINATION: Temp 36.3 C (97.3 F) (Temporal) Ht 188 cm (6' 2 ) Wt 80.2 kg (176 lb 12.8 oz) BMI 22.70 kg/m Constitutional: Healthy, alert, cooperative, and in no distress and communication severely limited due to hearing loss. Voice normal quality. Head/Face: Normocephalic, without obvious abnormality, salivary glands normal, atraumatic, sinuses nontender, and facial nerve intact Eyes: No gross abnormalities., EOMI, no nystagmus, and no lid ptosis Ear: RIGHT: external ear normal with a well-healed postauricular incision, canal normal, and TM normal without fluid or infection LEFT: external ear normal, canal normal, and TM normal without fluid or infection Nose: External nose appears normal, septum midline, normal mucosa, normal turbinates, and no nasal polyps or masses Oral: Poor dentition, normal lips, normal gums, normal hard palate, normal anterior tongue, and oral mucosa moist Oropharynx: normal-appearing mucosa, no pharyngitis, no exudate, and normal soft palate and uvula, no tonsils visible Neck:normal, supple, no adenopathy, thyroid normal in size, no nodules or tenderness, no neck masses palpable, and carotids normal Respiration: No stridor, Normal respiratory effort. Neurologic: Grossly normal Alert Oriented X 3 Affect normal Cranial nerves 2 -12 grossly intact ASSESSMENT/PLAN: Nabeel was seen today for cerumen impaction and hearing loss. 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 Recommend imaging, family member states he had an MRI head and neck done at the outside facility, we are requesting both the report and the images get pushed over. I asked the family member to contact us if they have not heard back from us in 2 weeks. Recommend considering Cros/Bi-Cros hearing aids, they will think about setting up an appointment with audiology here. Counseling given, management options discussed, all questions answered. Please note that parts of this chart were generated using voice recognition [employer] dictation software. Although every effort was made to ensure the accuracy of this automated order builder, some errors in order builder may have occurred. documented in this encounter [facility] 07-10-2024 History of Present illness Narrative Images from the original note were not included. Reason for Appointment: EMG Patient: Nabeel Tran : 1955 EMG Computer: [employer] Referring Physician: Dr. Shelby Arenas EMG: BLE window and door installer: Gilbert Gaffney RT(R) Office Location: [place] Reason for EMG: c/o numbness/tingling in bilateral feet. Hx of surgery to low back. Pt currently undergoing chemo. Hx of DM. Taking Eliquis. Comments: Procedure was explained to the patient & who expressed understanding. Patient appeared to have tolerated the test well despite some discomfort due to the nature of the test. documented in this encounter [facility] 07-02-2024 History of Present illness Narrative HAP: Pt is dissatisfied with the BiCROS hearing aids. He felt they were not any better than before. He was unable to hear the TV or conversation. He was not specific about the performance, only could say they were not helping him. I am unsure of any further adjustments that can be done to improve performance. Patient was offered the opportunity to try a different hoop puncher to see if he would perceive success. Patient would prefer to return the instruments. A return was processed in [employer] portal. Informed patient he will be refunded by [employer]. [facility] in the event they needed to discuss the refund process. Patient to let us know if he would like to try BiCROS devices again in the future. documented in this encounter [facility] 06-27-2024 History of Present illness Narrative HAP: Pt is not pleased with the hearing aids. He states they are overwhelming in background noise and he could barely hear the TV when at home. Patient took out the aids and did not wear them. Made programming adjustments. Adjusted DSP, increased highlight and gain offsets in noise. Increased gain for speech x1 in basic tuning. Pt heard me well in the office, however, he stated this environment is easier to hear since it is quiet. Encouraged patient to try settings and let us know how he does. Reviewed operation of VC and encouraged patient to try adjustments when appropriate. He is scheduled to follow up in a couple weeks and will let us know how to proceed. Pt may want to return if he is dissatisfied with aids. Our next follow up is still within the trial period. documented in this encounter [facility] 06-19-2024 Note [facility] Cardiology - [facility] Subjective Nabeel Tran is a 68 y.o. year old male patient being seen for 1 mo follow up hypertension, SOB, and valve disorder. He has been having issues with hypotension and his meds have been weaning. He was recently hospitalized after starting treatment for lymphoma. He presents today for follow up. He complains of some shortness of breath. He denies any chest pain or lower extremity edema, orthopnea, or PND. Patient Active Problem List Diagnosis ENE (obstructive sleep apnea) Non-rheumatic mitral regurgitation Nonrheumatic aortic valve insufficiency Primary hypertension Family History Problem Relation Name Age of Onset Coronary artery disease Mother Social History Tobacco Use Smoking status: Never Smokeless tobacco: Never Substance Use Topics Alcohol use: Yes Comment: occasional HPI Nabeel is seen as a new patient. He [...] leg edema. No chest pain. No palpitations. Cardiology ROS: 10 point ROS is performed and is negative unless otherwise specified in HPI. Objective Visit Vitals BP 86/56 (BP Location: Right leg, Patient Position: Sitting) Pulse 89 Ht 1.88 m (6' 2 ) Wt 71.7 kg (158 lb) SpO2 99% BMI 20.29 kg/m??? Smoking Status Never BSA 1.94 m??? Physical Exam Constitutional: Appearance: He is [...] Other Medications Current Outpatient Medications: atorvastatin (Lipitor) 10 mg tablet, Take 1 tablet (10 mg) by mouth in the morning., Disp: 90 tablet, Rfl: 3 carvedilol (Coreg) 6.25 mg tablet, Take 6.25 mg by mouth with breakfast and with evening meal., Disp: , Rfl: dilTIAZem CD (Cardizem CD) 240 mg 24 hr capsule, Take 240 mg by mouth in the morning., Disp: , Rfl: Eliquis 5 mg tablet, Take 5 mg by mouth twice a day., Disp: , Rfl: Januvia 100 mg tablet, Take 100 mg by mouth in the morning., Disp: , Rfl: liothyronine (Cytomel) 5 mcg tablet, Take 10 mcg by mouth in the morning., Disp: , Rfl: losartan (Cozaar) 100 mg tablet, Take 100 mg by mouth 1 (one) time each day., Disp: , Rfl: metFORMIN (Glucophage) 1,000 mg tablet, Take 1 tablet twice a day by oral route for 30 days., Disp: , Rfl: metoprolol tartrate (Lopressor) 50 mg tablet, 50 mg two times daily., Disp: , Rfl: ondansetron (Zofran) 4 mg tablet, every 8 (eight) hours if needed., Disp: , Rfl: pantoprazole (ProtoNix) 40 mg EC tablet, 40 mg., Disp: , Rfl: prochlorperazine (Compazine) 10 mg tablet, every 8 (eight) hours if needed., Disp: , Rfl: Flomax 0.4 mg 24 hr capsule, Take 0.4 mg by mouth in the morning., Disp: , (more content not included)... [facility] 06-17-2024 History of Present illness Narrative Images from the original note were not included. Chief complaint: Unsteadiness and generalized weakness and falls Subjective Nabeel Hector Tran, 68 y.o., male Nabeel presents today for a neurological consultation at the request of Ailin Green CNP for unsteady gait, generlized weakness, falls. Pt was seen at [facility] labs, U/A, PET scan, ECG and CT/MRI done. 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 States that it was removed and since then his balance has been off. However, over the last 6/7 mo's sx have worsened. Pt has lost hearing on the right, partially on the left. The pt has been dx with lymphoma this past summer, believes it was about February/March. States that he has a chemo port. The pt is currently has a 30 day heart monitor on. The pt presents in wheel chair. states that without it he can move, but gets worn out within 10 steps. He also has a cane with him. Pt also has labored breathing. admits to pt falling, last fall was x 3 months ago. Balance has been steadily decreasing. Admits to lightheadedness. Review of Systems Constitutional: Negative for appetite change, fatigue and fever. Respiratory: Negative for cough, shortness of breath and wheezing. Cardiovascular: Negative for chest pain, palpitations and leg swelling. Gastrointestinal: Negative for abdominal pain, constipation, diarrhea and nausea. Musculoskeletal: Positive for gait problem. Negative for arthralgias and myalgias. Neurological: Positive for weakness. Negative for dizziness, tremors, numbness and headaches. No past medical history on file. No past surgical history on file. No family history on file. Social History Tobacco Use Smoking status: Not on file Smokeless tobacco: Not on file Substance Use Topics Alcohol use: Not on file Allergies: Patient has no known allergies. Vitals: 06/17/24 1225 BP: 118/75 Pulse: 98 SpO2: 93% Body mass index is 20.29 kg/m . weight: 158 lb Neurologic exam: Mental status: Patient appears to be tired and generally weak. The states that they have been admitted multiple times in the last few months. Awake, alert to person, place and time. Recent and remote memory are intact. Language is fluent without aphasia. Attention and concentration are normal. Fund of knowledge is appropriate for level of education. Cranial nerves: CN II: Visual acuity is normal. Visual evans full to confrontation. CN III, IV, : pupils equal round and reactive to light. Extraocular movements intact. No ptosis present. CN V: Facial sensation is normal. CN VII: Full and symmetric facial movement. CN VIII: Patient has no hearing on the right (History of schwannoma status post resection) and is hard of hearing on the left CN IX and X: Palate elevates symmetrically. CN XI: Shoulder shrug is normal bilaterally. CN XII: Tongue is midline without atrophy or fasciculation. Motor: RUE Strength deltoid, , biceps , triceps , wrist extensors , wrist flexor , reproduction production manager strength 4-/5. LUE Strength deltoid , biceps , triceps , wrist extensors , wrist flexor , reproduction production manager strength 4-/5. RLE Strength illopsoas, quadriceps, tibialis anterior, and gastrocnemius strength 4-/5. LLE Strength illopsoas, quadriceps, tibialis anterior, and gastrocnemius strength 4-/5. Normal tone x4 extremities. Muscle bulk is substantially reduced Sensory: Sensation is intact to light touch throughout Four extremities. Reflexes: RUE biceps reflex 2+ brachioradialis reflex 2+ . LUE biceps reflex 2+ brachioradialis reflex 2+ . RLE knee reflex 2+ . LLE knee reflex 2+ . Flowers's sign negative. Coordination: [id number]-xb-[id number] testing and rapid alternating movements are normal Gait: Wheelchair-bound Review and summary of old records: MRI of the brain with and without contrast on 05/29/2024: Enhancement along the right internal auditory canal extending into the apex. This may represent residual schwannoma. Enhancement along the basal turn of the cochlea and along the right facial nerve involving the labyrinthine in genetically segments. This may be postoperative or represent residual schwannoma. This is unchanged. There is a small amount of right-sided mastoid effusion without evidence of mastoidectomy. Chronic microvascular ischemic diseases are redemonstrated. CT of the brain without contrast on 04/21/2024: No acute process Assessment/Plan Diagnoses and all orders for this visit: Malnutrition, unspecified type (CMS/HCC)/ Failure to thrive Weakness History of benign schwannoma Lymphoma, unspecified body region, unspecified lymphoma type (CMS/HCC) It is my impression that the patient has generalized weakness and gait instability. He was recently diagnosed with lymphoma which seems to be localized to the right chest area. He has just undergone his 1st chemotherapy treatment within the last few weeks. His tells me that he has lost over 150 lb in the last 9 months. His muscle tone is very poor. He is in a wheelchair. He has lost substantial body weight and seems very fatigued and tired. It would be my suspicion that the malignancy is the cause of this substantial weight loss. MRI of the brain did demonstrate schwannoma on the right which was likely residual from prior surgery 20 years ago. It also demonstrated postoperative changes of the right facial nerve. Chronic microvascular changes were determined. Otherwise, no acute process. The patient is a diabetic. I am unclear as to last hemoglobin A1c. The patient has had chemotherapy but only 1 recent treatment and the symptoms preceded the chemotherapy by more than 6 months. The patient had nonalcoholic. I believe the patient's weight loss is the most likely culprit to his generalized weakness and decline in function. Plan: We will obtain an EMG of the bilateral lower extremities to assess for a generalized process such as a polyneuropathy that may help to explain the patient's generalized weakness and symptoms. I suggested very close follow up with the Oncology team in order to assess nutritional status and consider dietary consultation I suggest continued treatment of lymphoma at the discretion of the oncology team If neuropathy is identified we will also obtain other laboratory evaluation in order to further assess for potential causes His accompanied him to the visit today and provided additional history. She and the patient are agreeable to plan. High-degree morbidity and mortality condition with patient with family history and failure to thrive would fall risk and need for extensive records review, ongoing investigation and discussion with family. Pt has been fully educated on their diagnosis, treatment options, follow up plan, and return instructions documented in this encounter [facility] 06-16-2024 History of Present illness Narrative Patient was in today to be fit with a Signia Pure C& G T 3IX for the left ear and a CROS Pure C & G for the right ear. Patient has some experience with hearing aids but never with much success. Patient was not feeling well at the appointment today and wanted it to be as short as possible. Patient's accompanied him to the appointment and felt she would be able to insert and remove the aids. Patient was able to answer questions after inserting the hearing aids. The right CROS was coupled to 2S fixture builder with a 10 mm open dome. The left hearing aid was coupled to a Signia custom canal lock earmold. Patient does not use a smart phone. Patient did not want to schedule a follow up due to his health and many appointments. Patient's states she will call for follow up. Cosigned by FRANKIE Spears at 06/17/2024 11:28 AM EST documented in this encounter [facility] 06-03-2024 Note General Surgery Offi ce/Clinic Note [...] nodes of axilla and upper limb) plan [id number] insertion for chemotherapy; informed consent obtained. Ancef [...] (more content not included)... [facility] Comment on above: Result Comment: Elec [...] for hearing aids through his [facility] [employer]. Recommend a custom mold for the left ear. Ear impression taken of left ear without incident. Pt ordered mid level technology. Order completed in [facility] portal and pt scheduled for HAF 06-16-24 in [place]. documented in this encounter [facility] 03-28-2024 Note DC Cardiology - [facility] Subjective Nabeel Tran is a 68 y.o. year old [...] Topics Alcohol use: Yes Comment: occasional HPI Nabeel is seen as a new patient. He [...] HDL 42. TSH (more content not included)... [facility] 02-25-2024 Note DC Cardiology - [facility] Subjective Nabeel Tran is a 68 y.o. year old male patient being seen to re-establish care. He was last seen by Dr. Staton in Mar 2018. Had routine labs w/ [...] Topics Alcohol use: Yes Comment: occasional HPI Nabeel is seen as a new patient. He [...] platelets 256, potassium (more content not included)... [facility] 02-15-2024 Hospital Discharge instructions Follow Up Care 02/15/2024 09:24:50 With:DONN ELLIS, Moody Aranda, URL Address: [facility] [address], [place] [address]- When: Unknown [facility] 01-21-2024 Note Chief Complaint Referral *LUTs [...] for age, normal judgement, euthymic mood. Assessment/Plan Nabeel is a 68 yo male new pt referred by Ailin Green [facility] due to LUTS. 1. BPH with [...] (more content not included)... [facility] Comment on above: Result Comment: Elec [...] urethra. Follow these instructions at home: Take [id number] and prescription medicines only as told by [...] provider. Document Revised: 02/08/2022 Document Reviewed: 02/08/2022 [employer] Patient Education 2022 [employer]. Follow Up Care 09/13/2023 09:26:56 With:DONN ELLIS, Moody Aranda, URL Address: [facility] [address] , [place] [address]- When: Unknown [facility] Evaluation + Plan note No data available for this section [facility] Evaluation + Plan note Future Appointments Appointment Date:06/09/2024 10:45:00 AM Scheduled Provider:Moody POP MD Location:[facility] Appointment Type:URO Office Visit [facility] Evaluation note No assessment inform ation available [facility] Work Phone: Evaluation note Diagnosis 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 [facility] Diagnosis 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 [facility] Diagnosis Malnutrition, unspecified type (CMS/HCC)- Primary Weakness Other malaise and fatigue History of benign schwannoma Lymphoma, unspecified body region, unspecified lymphoma type (CMS/HCC) [facility] Diagnosis Sensorineural hearing loss, bilateral- Primary [facility] Diagnosis Sensorineural hearing loss, bilateral- Primary [facility]* Diagnosis Weakness- Primary Other malaise and fatigue Polyneuropathy Unspecified hereditary and idiopathic peripheral neuropathy [facility] Diagnosis Sensorineural hearing loss, asymmetrical- Primary 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 Hodgkin lymphoma, unspecified Hodgkin lymphoma type, unspecified body region (CMS-HCC) [facility] Lymphoma, unspecified body region, unspecified lymphoma type (CMS/HCC)- Primary Malnutrition, unspecified type (CMS/HCC) Polyneuropathy Unspecified hereditary and idiopathic peripheral neuropathy documented in this encounter [facility] instructions No data available for this section [facility] InstructionsNot on filedocumented in this encounter [facility] filedocumented in this [facility] filedocumented in this [facility] filedocumented [facility] No data available for this section [facility] reason for visit Narrative* Consultation (Routine) - Closed Specialty Diagnoses / Procedures Referred By Contac t Referred To Contact Neurology Diagnoses Unsteadiness on feet Weakness Procedures [place] OFFICE/OUTPATIENT NEW LOW MDM 30 MINUTES Ailin Green MD [address] [place] [address] Phone: tel:[phone] fax: Nabeel New MD [address] [place] [address] Phone: tel: fax: Referral ID Status Reason Start Date Expiration Date V isits Requested Visits Authorized [id number] Closed Consult and Treat 05/16/2024 11/12/2024 1 1 [facility] Summary Purpose Family History No Family History Records FoundNo Family History Records Found No data available for this section No data available for this section No data available for this section No Family History Records Found No data available for this section No Family History Records FoundNo Family History Records FoundNo Family History Records Found Advance Directives Advance Directive Response Recorded Date/ Time Advance Directives No May 06, 2024 4:34pm Additional Source Comments (unrecognized sect ion and content) No Status Records FoundNo Status Records FoundNo Status Records FoundNo Status Records FoundNo Status Records FoundNo Status Records Found INFORMATION SOURCE (unrecogn ized section and content) DATE CREATED AUTHOR 01/29/2018 [facility] DATE CREATED AUTHOR AUTHOR'S ORGANIZ ATION 09/01/2021 [facility] DATE CREATED AUTHOR AUTHOR'S ORGANIZ ATION 06/08/2024 [facility] DATE CREATED AUTHOR AUTHOR'S ORGANIZ ATION 06/11/2024 [facility] DATE CREATED AUTHOR AUTHOR'S ORGANIZ ATION 06/30/2024 [facility] DATE CREATED AUTHOR AUTHOR'S ORGANIZ ATION 08/08/2024 [facility] EPIC Patient Care team informatio n (unrecognized section and content) Team Status: Active Member Role Status Dates Ailin Green NP-C Primary Care Provider Active Team Status: Inactive Member Role Status Dates González Moon DO Primary Care Provider Active Sta rt: April 11, 2024 End: April 11, 2024 Nabeel Strange MD Attending Provider Active Start: April 11, 2024 End: April 11, 2024 Team Status: Active Member Role Status Dates MEHRDAD Bardales Primary Care Provider Active Start: April 21, 2024 Nito Sunshine DO Attending Provider Active Sta rt: April 21, 2024 Team Status: Inactive Member Role Status Dates Jassi Alegria MD [facility] Attending Provider Active Start: April 23, 2024 End: April 23, 2024 Team Status: Inactive Member Role Status Dates Sonia Donnelly MD Attending Provider Active St art: May 29, 2024 End: May 29, 2024 MEHRDAD Bardales Primary Care Provider Active Start: May 29, 2024 End: May 29, 2024 Team Status: Active Member Role Status Dates González Moon DO Primary Care Provider Active Brick Mason Relationship Specialty Start Date End Date Ailin Green MD [address] [place] [address] Referring Physician Family Medicine 05/16/24 Ailin Green MD [address] [place], [place] [phone] Referring Physician Family Medicine 05/26/24 Brick Mason Relationship Specialty Start Date End Date Ailin Green MD [address] [place], [place] [phone] Referring Physician Family Medicine 05/16/24 Ailin Green MD [address] [place], [place] [phone] Referring Physician Family Medicine 05/26/24 Brick Mason Relationship Specialty Start Date End Date Jah Damian MD [address] [place] [phone] PCP - General Family Medicine 06/16/24 Ailin Green MD [address] [place] [address] Referring Physician Family Medicine 05/16/24 Ailin Green MD [address] [place] [address] Referring Physician Family Medicine 05/26/24 Brick Mason Relationship Specialty Start Date End Date Jah Damian MD [address] [phone] PCP - General Family Medicine 06/16/24 [place] [address] [place] [address] Referring Physician Family Medicine 05/16/24 Ailin Green MD [address] [place], [place] [phone] Referring Physician Family Medicine 05/26/24 Brick Mason Relationship Specialty Start Date End Date Jah Damian MD [address] [place], [place] [phone] PCP - General Family Medicine 06/16/24 [place] [address] [place], [place] [phone] Referring Physician Family Medicine 05/16/24 [place] [address] [place] [address] Referring Physician Family Medicine 05/26/24 Brick Mason Relationship Specialty Start Date End Date Jah Damian MD [address] [place] [phone] PCP - General Family Medicine 06/16/24 Ailin Green MD [address] [place] [address] Referring Physician Family Medicine 05/16/24 Ailin Green MD [address] [place] [address] Referring Physician Family Medicine 05/26/24 Brick Mason Relationship Specialty Start Date End Date Jah Damian MD [address] [facility] [phone] PCP - General Family Medicine 06/16/24 [place] [address] [place] [address] Referring Physician Family Medicine 05/16/24 Ailin Green MD [address] [place], [place] [phone] Referring Physician Family Medicine 05/26/24 Brick Mason Relationship Specialty Start Date End Date Jah Damian MD [address] [place] [phone] PCP - General Family Medicine 06/16/24 [place] [address] [place] [address] Referring Physician Family Medicine 05/16/24 [place] [address] [place] [address] Referring Physician Family Medicine 05/26/24 Brick Mason Relationship Specialty Start Date End Date Jah Damian MD [address] [place] [address] PCP - General Family Medicine 06/16/24 Ailin Green MD [address] [place] [address] Referring Physician Family Medicine 05/16/24 Ailin Green MD [address] [place] [address] Referring Physician Family Medicine 05/26/24 Brick Mason Relationship Specialty Start Date End Date Ailin Green MD [address] [place] [address] Referring Physician Family Medicine 05/16/24 [place] [address] [place] [address] Referring Physician Family Medicine 05/26/24 Shelby Arenas DO [address] [phone] Referring Physician Neurology 08/07/24 Brick Mason Relationship Specialty [place] [address] [place] [address] Referring Physician Family Medicine 05/16/24 [place] [address] [place] [address] Referring Physician Family Medicine 05/26/24 Shelby Arenas DO [address] [address] Referring Physician Neurology 08/07/24 Brick Mason Relationship Specialty [place] [address] [place] [address] Referring Physician Family Medicine 05/16/24 Ailin Green MD [facility] [place] [address] Referring Physician Family Medicine 05/26/24 Shelby Arenas DO [address] [place] [phone] Referring Physician Neurology 08/07/24 Goals (unrecognized section and content) Goals may be documented in a n alternate section Reason for Visit (unrecogniz ed section and content) Reason Comments Cerumen Impaction Bilateral Hearing Loss Laterality Reason Onset Date Comments Need office notes faxed 08/13/2024 FOR RECORDS PERTAINING TO PATIENTS WHO ARE [...] PRIMARY CLINICAL RECORDS. [facility] [employer] provides no warranty or guarantee of the accuracy or completeness of information in this document.
[2024-08-19 10:05] LABS: Hemoglobin 13.1 g/dL (14.0-18.0); Mean Corpuscular Hemoglobin 28.3 pg (25.9-34.0); Mean Corpuscular Volume 88.6 fL (80.0-94.0); Platelet Count 337 10^3/uL (150-450); Red Blood Count 4.63 10^6/uL (4.70-6.10); Red Cell Distribution Width 21.1 % (11.0-15.0); White Blood Count 13.5 10^3/uL (4.0-11.0)
[2024-08-19 10:08] VITALS: BP 108/70; PULSE 63; TEMP 36.6; O2SAT 18
[2024-08-19 10:23] LABS: Alanine Aminotransferase 20 U/L (16-63); Albumin Level 3.2 g/dL (3.4-5.0); Alkaline Phosphatase 119 U/L (46-116); Aspartate Amino Transferase 21 U/L (15-37); BUN Creatinine Ratio 17.4; Bilirubin Total 0.3 mg/dL (0.2-1.0); Calcium 9.1 mg/dL (8.5-10.1); Carbon Dioxide 32.1 mmol/L (21.0-32.0); Chloride 106 mmol/L (98-107); Estimated GFR (African America >60 (>=60 mL/min/1.73m^2); Estimated GFR (Non-African Ame >60 (>=60 mL/min/1.73m^2); Globulin 3.3 g/dL; Glucose 128 mg/dL (74-106); Lactate Dehydrogenase 162 U/L (85-227); Potassium 4.1 mmol/L (3.5-5.1); Sodium 140 mmol/L (136-145); Total Protein 6.5 g/dL (6.4-8.2)
[2024-08-19 10:32] LABS: Band Neutrophils Absolute 0.8 10^3/uL (0.0-0.3); Lymphocytes Absolute Manual 1.62 10^3/uL (1.20-3.80)
[2024-08-19 10:33] LABS: Basophils Abs Manual 0.13 10^3/uL (0.00-0.10); Eosinophils Absolute Manual 0.13 10^3/uL (0.00-0.70); Monocytes Absolute Manual 2.16 10^3/uL (0.30-0.80); Myelocytes Absolute Manual 0.13
[2024-08-19 10:35] LABS: Anisocytosis 1+; Poikilocytosis 1+; Tear Drop Cells 1+
[2024-08-19] MEDS: 0.9 % SODIUM CHLORIDE 250 ML 10 ML IV (11:31)
[2024-08-19] MEDS: PALONOSETRON HCL 0.25 MG/5 ML VIAL IV (11:32)
[2024-08-19] MEDS: DEXAMETHASONE SODIUM PHOSPHATE IV (11:35)
[2024-08-19] MEDS: ONDANSETRON HCL IV (11:35)
[2024-08-19] MEDS: [UNRECOGNIZED DRUG - OTHER] IV (11:35)
[2024-08-19] MEDS: DOXORUBICIN HCL 52 MG IVP (12:06)
[2024-08-19] MEDS: BLEOMYCIN SULFATE IV (12:10)
[2024-08-19] MEDS: SODIUM CHLORIDE 0.9% IV ×3 (12:10→12:36)
[2024-08-19] MEDS: VINBLASTINE SULFATE IV (12:33)
[2024-08-19] MEDS: DACARBAZINE IV (12:36)
[2024-08-19 13:01] VITALS: BP 113/69; PULSE 58; TEMP 36.6; O2SAT 96
--- NOTE | 2024-08-19 13:02 | PC.NURSE ---
tolerating infusion without anyissues. Ate 100% meal.
[2024-08-19] MEDS: PEGFILGRASTIM 6 MG/0.6 ML SQ (13:44)
[2024-08-19] MEDS: HEPARIN SODIUM (PORCINE) PF LOCK FLUSH 500 UNIT/5 ML SYRINGE IV (15:27)
[2024-09-02 09:25] VITALS: BP 94/67; PULSE 60; TEMP 36; O2SAT 97
[2024-09-02 09:49] LABS: Hematocrit 42.8 % (42.0-54.0); Hemoglobin 13.9 g/dL (14.0-18.0); Mean Corpuscular HGB Conc 32.5 g/dL (29.9-35.2); Mean Corpuscular Hemoglobin 29.4 pg (25.9-34.0); Mean Corpuscular Volume 90.7 fL (80.0-94.0); Mean Platelet Volume 9.5 fL (9.5-13.5); Platelet Count 368 10^3/uL (150-450); Red Blood Count 4.72 10^6/uL (4.70-6.10); Red Cell Distribution Width 19.3 % (11.0-15.0); White Blood Count 18.1 10^3/uL (4.0-11.0)
[2024-09-02 10:02] LABS: Alanine Aminotransferase 30 U/L (16-63); Albumin Level 3.2 g/dL (3.4-5.0); Alkaline Phosphatase 121 U/L (46-116); Anion Gap 8.1; Aspartate Amino Transferase 21 U/L (15-37); BUN Creatinine Ratio 20.7; Bilirubin Total 0.3 mg/dL (0.2-1.0); Chloride 105 mmol/L (98-107); Estimated GFR (African America >60 (>=60 mL/min/1.73m^2); Estimated GFR (Non-African Ame >60 (>=60 mL/min/1.73m^2); Globulin 3.1 g/dL; Glucose 158 mg/dL (74-106); Lactate Dehydrogenase 158 U/L (85-227); Potassium 4.1 mmol/L (3.5-5.1); Sodium 139 mmol/L (136-145); Total Protein 6.3 g/dL (6.4-8.2)
[2024-09-02 10:18] LABS: Band Neutrophils Absolute 0.9 10^3/uL (0.0-0.3); Segmented Neut Absolute Manual 11.22 10^3/uL (1.4-6.5)
[2024-09-02 10:19] LABS: Anisocytosis 1+; Basophils Abs Manual 0.54 10^3/uL (0.00-0.10); Lymphocytes Absolute Manual 2.35 10^3/uL (1.20-3.80); Monocytes Absolute Manual 2.17 10^3/uL (0.30-0.80); Poikilocytosis 1+
[2024-09-02 10:20] LABS: Tear Drop Cells 1+
[2024-09-02] MEDS: PALONOSETRON HCL 0.25 MG/5 ML VIAL IV (11:41)
[2024-09-02] MEDS: DEXAMETHASONE SODIUM PHOSPHATE 10 MG in 0.9 % SODIUM CHLORIDE 100 ML 303 MG IV (11:42)
[2024-09-02] MEDS: 0.9 % SODIUM CHLORIDE 250 ML 20 ML IV (12:00)
[2024-09-02] MEDS: APREPITANT 130 MG in 0.9 % SODIUM CHLORIDE 100 ML 236 MG IV (12:11)
[2024-09-02] MEDS: DOXORUBICIN HCL 52 MG IVP (12:47)
[2024-09-02] MEDS: VINBLASTINE SULFATE IV (13:05)
[2024-09-02] MEDS: SODIUM CHLORIDE 0.9% IV ×3 (13:05→13:43)
[2024-09-02] MEDS: BLEOMYCIN SULFATE IV (13:19)
[2024-09-02 13:33] VITALS: BP 97/63; PULSE 68; TEMP 36.6; O2SAT 97
[2024-09-02] MEDS: DACARBAZINE IV (13:43)
[2024-09-02] MEDS: PEGFILGRASTIM 6 MG/0.6 ML SQ (14:35)
[2024-09-02] MEDS: HEPARIN SODIUM (PORCINE) PF LOCK FLUSH 500 UNIT/5 ML SYRINGE IV (14:35)
== END 2024-09-03 11:08 | disposition home or self-care (01) ==
LOC: HEMC 07:36
PROVIDERS: PCP Nurse Practitioner Family; Visit Provider Internal Medicine Hematology & Oncology
DX: Z51.11 Encounter for antineoplastic chemotherapy (principal); C81.18 Nodular sclerosis Hodgkin lymphoma, lymph nodes of multiple sites; C85.11 Unspecified B-cell lymphoma, lymph nodes of head, face, and neck; R74.01 Elevation of levels of liver transaminase levels; D50.9 Iron deficiency anemia, unspecified; R11.2 Nausea with vomiting, unspecified; D70.1 Agranulocytosis secondary to cancer chemotherapy; Z79.899 Other long term (current) drug therapy; E11.9 Type 2 diabetes mellitus without complications; Z79.4 Long term (current) use of insulin; H91.90 Unspecified hearing loss, unspecified ear; R62.7 Adult failure to thrive; R00.0 Tachycardia, unspecified; R53.83 Other fatigue; Z91.81 History of falling
CPT/HCPCS: 36415; 36591; 80053; 83615; 85007; 85027; 96366; 96368; 96372; 96375; 96411; 96413; G0463; J0185; J1100; J1642; J2405; J2469; J2506; J9000; J9040; J9130; J9360

== ENCOUNTER 2024-09-08 13:34 | Outpatient (OUT) | payer MEDICARE, SELFPAY ==
--- NOTE | 2024-09-08 13:44 | PE_ITS ---
The [address] [address] Patient Name: NABEEL TRAN MRN: [id number] date: 1955 Sex: M Assigned Patient Location: PETCT Current Patient Location: PETCT Accession/Order Number: [id number] Exam Date: 09/08/2024 15:00 Report Date: 09/15/2024 15:02 At the request of: JOAN HURLEY Procedure: PET skull to mid thigh PET/CT: HISTORY: Lymphoma, status post chemotherapy. COMPARISON: PET/CT 05/12/2024. TECHNIQUE: The patient was injected with 13.62 mCi of F-18 fluorodeoxyglucose (FDG), and an emission scan was performed from the vertex of the skull to the mid thigh. Noncontrast CT was performed for attenuation correction and anatomic localization. The blood glucose level was 131 mg/dl. The uptake time was 52 minutes. FINDINGS: HEAD AND NECK: The previously seen hypermetabolic right supraclavicular lymphadenopathy has resolved. CHEST: The SUVmax of the mediastinum = 2.1 using the patient's body weight as the normalization method. Hypermetabolic right axillary and subpectoral lymphadenopathy have markedly improved and nearly resolved. There is a residual lymph node on image 131, SUV max 2.8, previously 20.2 measuring 2.3 x 1.2 cm in size, previously 3.9 x 2.7 cm. There is no other hypermetabolic lymphadenopathy. ABDOMEN AND PELVIS: There is a physiologic distribution of activity within the liver, spleen, adrenal glands, urinary tract and bowel, with no hypermetabolic foci. MUSCULOSKELETAL SYSTEM: There is mild to moderate diffuse increased activity in the bone marrow consistent with reactive hyperplasia which may be related to anemia, prior chemotherapy and/or administration of bone marrow stimulating drugs. This appears slightly asymmetric in the left sacrum on image 265, SUV max 4.2. ADDITIONAL CT FINDINGS: There is a nonhypermetabolic 1 cm left thyroid nodule which is likely stable. No follow-up is required per ACR guidelines. There is a right chest central venous access port with tip in the SVC. There is low attenuation of blood in the cardiac chambers consistent with anemia. There is mild to moderate atelectasis and/or scarring at the bilateral lung bases. There are a few bilateral renal cysts, right greater than left measuring up to 4.1 cm. There is diffuse atherosclerotic calcification of the aorta, iliac and femoral arteries. There is a large amount of stool in the colon. There is a small fat-containing left inguinal hernia. PET/PET skull to mid thigh IMPRESSION: 1. The hypermetabolic right supraclavicular, axillary and subpectoral lymphadenopathy appears mostly resolved except for a residual lymph node which shows uptake slightly more intense than the mediastinum and similar to the liver activity. This is consistent with a Deauville score of 3 which usually indicates a complete metabolic response to therapy except in certain clinical trials where discontinuation of therapy is being considered. 2. 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 Activity is slightly asymmetric in the left sacrum however this is favored to be due to heterogeneous reactive bone marrow. Consider MRI and/or attention on follow-up PET/CT. 3. Additional CT findings as described above. Electronically authenticated by: NABEEL DOTSON Date: 09/15/2024 15:02
== END 2024-09-08 13:35 | disposition home or self-care (01) ==
LOC: PETCT 13:35
PROVIDERS: PCP Nurse Practitioner Family; Visit Provider Internal Medicine Hematology & Oncology
DX: C85.11 Unspecified B-cell lymphoma, lymph nodes of head, face, and neck (principal); R74.01 Elevation of levels of liver transaminase levels; R71.8 Other abnormality of red blood cells; D50.9 Iron deficiency anemia, unspecified; D64.9 Anemia, unspecified; C81.18 Nodular sclerosis Hodgkin lymphoma, lymph nodes of multiple sites; R11.2 Nausea with vomiting, unspecified; Z51.11 Encounter for antineoplastic chemotherapy; D72.829 Elevated white blood cell count, unspecified; D70.1 Agranulocytosis secondary to cancer chemotherapy; Z79.899 Other long term (current) drug therapy
CPT/HCPCS: 78815; A9552

== ENCOUNTER 2024-09-23 07:34 | Outpatient (RCR) | payer MEDICARE, SELFPAY ==
[2024-09-23 09:54] LABS: Basophils Absolute Auto 0.2 10^3/uL (0.0-0.1); Basophils Percent Auto 0.9 % (0.2-2.0); Eosinophils Absolute Auto 0.5 10^3/uL (0.0-0.7); Eosinophils Percent Auto 2.7 % (0.9-7.0); Hematocrit 41.5 % (42.0-54.0); Hemoglobin 13.6 g/dL (14.0-18.0); Immature Granulocytes Abs Auto 0.14 10^3/uL (0.00-0.03); Immature Granulocytes Pct Auto 0.8 % (0.0-0.5); Lymphocytes Absolute Auto 1.3 10^3/uL (1.2-3.8); Lymphocytes Percent Auto 7.7 % (20.5-60.0); Mean Corpuscular HGB Conc 32.8 g/dL (29.9-35.2); Mean Corpuscular Volume 91.4 fL (80.0-94.0); Monocytes Absolute Auto 1.5 10^3/uL (0.3-0.8); Monocytes Percent Auto 8.5 % (1.7-12.0); Neutrophils Absolute Auto 13.9 10^3/uL (1.4-6.5); Neutrophils Percent Auto 79.4 % (43.0-75.0); Platelet Count 220 10^3/uL (150-450); Red Blood Count 4.54 10^6/uL (4.70-6.10); Red Cell Distribution Width 16.8 % (11.0-15.0); White Blood Count 17.5 10^3/uL (4.0-11.0)
[2024-09-23 09:58] VITALS: BP 119/62; PULSE 62; TEMP 36.8; O2SAT 95
[2024-09-23 10:11] LABS: Alanine Aminotransferase 32 U/L (16-63); Albumin Globulin Ratio 0.9; Albumin Level 3.1 g/dL (3.4-5.0); Alkaline Phosphatase 109 U/L (46-116); Aspartate Amino Transferase 24 U/L (15-37); BUN Creatinine Ratio 25.6; Bilirubin Total 0.3 mg/dL (0.2-1.0); Calcium 9.2 mg/dL (8.5-10.1); Carbon Dioxide 32.1 mmol/L (21.0-32.0); Chloride 107 mmol/L (98-107); Estimated GFR (African America >60 (>=60 mL/min/1.73m^2); Estimated GFR (Non-African Ame >60 (>=60 mL/min/1.73m^2); Globulin 3.3 g/dL; Glucose 144 mg/dL (74-106); Lactate Dehydrogenase 129 U/L (85-227); Potassium 4.1 mmol/L (3.5-5.1); Sodium 141 mmol/L (136-145); Total Protein 6.4 g/dL (6.4-8.2)
[2024-09-23] MEDS: PALONOSETRON HCL 0.25 MG/5 ML VIAL IV (11:32)
[2024-09-23] MEDS: 0.9 % SODIUM CHLORIDE 250 ML 10 ML IV (11:32)
[2024-09-23] MEDS: DEXAMETHASONE SODIUM PHOSPHATE 10 MG in 0.9 % SODIUM CHLORIDE 100 ML 303 MG IV (11:38)
[2024-09-23] MEDS: APREPITANT 130 MG in 0.9 % SODIUM CHLORIDE 100 ML 236 MG IV (11:56)
[2024-09-23] MEDS: DOXORUBICIN HCL 52 MG IVP (13:00)
[2024-09-23] MEDS: SODIUM CHLORIDE 0.9% IV ×3 (13:13→13:44)
[2024-09-23] MEDS: BLEOMYCIN SULFATE IV (13:13)
[2024-09-23] MEDS: VINBLASTINE SULFATE IV (13:29)
[2024-09-23] MEDS: DACARBAZINE IV (13:44)
--- NOTE | 2024-09-23 13:56 | PC.NURSE ---
1200 Tolerating infusions without any s/s. Eats 100% of meal. [facility] cancer center called and scheduled patient for this 09/[address] Browne regarding RT.
== END 2024-09-24 08:23 | disposition home or self-care (01) ==
LOC: HEMC 07:34
PROVIDERS: PCP Nurse Practitioner Family; Visit Provider Internal Medicine Hematology & Oncology
DX: Z51.11 Encounter for antineoplastic chemotherapy (principal); C85.11 Unspecified B-cell lymphoma, lymph nodes of head, face, and neck; R74.01 Elevation of levels of liver transaminase levels; D50.9 Iron deficiency anemia, unspecified; D64.9 Anemia, unspecified; C81.18 Nodular sclerosis Hodgkin lymphoma, lymph nodes of multiple sites; R11.2 Nausea with vomiting, unspecified; D70.1 Agranulocytosis secondary to cancer chemotherapy; Z79.899 Other long term (current) drug therapy; Z91.81 History of falling; R53.83 Other fatigue; R00.0 Tachycardia, unspecified
CPT/HCPCS: 36591; 80053; 83615; 85025; 96367; 96375; 96411; 96413; G0463; J0185; J1100; J2469; J9000; J9040; J9130; J9360

== ENCOUNTER 2024-10-07 07:37 | Outpatient (RCR) | payer MEDICARE, SELFPAY ==
[2024-10-07] MEDS: HEPARIN SODIUM (PORCINE) PF LOCK FLUSH 500 UNIT/5 ML SYRINGE IV (11:51)
[2024-10-07 11:56] LABS: Hematocrit 38.8 % (42.0-54.0); Hemoglobin 12.9 g/dL (14.0-18.0); Mean Corpuscular HGB Conc 33.2 g/dL (29.9-35.2); Mean Corpuscular Hemoglobin 29.9 pg (25.9-34.0); Mean Corpuscular Volume 89.8 fL (80.0-94.0); Mean Platelet Volume 10.2 fL (9.5-13.5); Platelet Count 215 10^3/uL (150-450); Red Blood Count 4.32 10^6/uL (4.70-6.10); Red Cell Distribution Width 15.8 % (11.0-15.0); White Blood Count 2.3 10^3/uL (4.0-11.0)
[2024-10-07 12:16] LABS: Alanine Aminotransferase 36 U/L (16-63); Albumin Level 3.2 g/dL (3.4-5.0); Alkaline Phosphatase 104 U/L (46-116); Aspartate Amino Transferase 27 U/L (15-37); BUN Creatinine Ratio 20.5; Bilirubin Total 0.4 mg/dL (0.2-1.0); Calcium 8.8 mg/dL (8.5-10.1); Carbon Dioxide 30.4 mmol/L (21.0-32.0); Chloride 107 mmol/L (98-107); Estimated GFR (African America >60 (>=60 mL/min/1.73m^2); Estimated GFR (Non-African Ame >60 (>=60 mL/min/1.73m^2); Globulin 3.1 g/dL; Glucose 125 mg/dL (74-106); Magnesium 1.9 mg/dL (1.8-2.4); Potassium 4.4 mmol/L (3.5-5.1); Sodium 141 mmol/L (136-145); Total Protein 6.3 g/dL (6.4-8.2)
[2024-10-07 12:21] LABS: Basophils Abs Manual 0.04 10^3/uL (0.00-0.10); Eosinophils Absolute Manual 0.27 10^3/uL (0.00-0.70); Lymphocytes Absolute Manual 0.55 10^3/uL (1.20-3.80); Segmented Neut Absolute Manual 0.92 10^3/uL (1.4-6.5)
== END 2024-10-08 08:16 | disposition home or self-care (01) ==
LOC: HEMC 07:37
PROVIDERS: PCP Nurse Practitioner Family; Visit Provider Internal Medicine Hematology & Oncology
DX: C85.11 Unspecified B-cell lymphoma, lymph nodes of head, face, and neck (principal); R74.01 Elevation of levels of liver transaminase levels; D50.9 Iron deficiency anemia, unspecified; D64.9 Anemia, unspecified; C81.18 Nodular sclerosis Hodgkin lymphoma, lymph nodes of multiple sites; R11.2 Nausea with vomiting, unspecified; D70.1 Agranulocytosis secondary to cancer chemotherapy; Z79.899 Other long term (current) drug therapy
CPT/HCPCS: 36415; 36591; 80053; 83735; 85007; 85027; G0463; J1642

== ENCOUNTER 2024-11-18 07:42 | Outpatient (RCR) | payer MEDICARE, SELFPAY ==
[2024-11-18 14:11] LABS: Anion Gap 10.3; Carbon Dioxide 29.8 mmol/L (21.0-32.0); Chloride 110 mmol/L (98-107); Estimated GFR (African America >60 (>=60 mL/min/1.73m^2); Estimated GFR (Non-African Ame >60 (>=60 mL/min/1.73m^2); Glucose 113 mg/dL (74-106); Potassium 4.1 mmol/L (3.5-5.1); Sodium 146 mmol/L (136-145)
[2024-11-18 14:12] LABS: Alanine Aminotransferase 29 U/L (16-63); Albumin Level 3.1 g/dL (3.4-5.0); Alkaline Phosphatase 82 U/L (46-116); Aspartate Amino Transferase 22 U/L (15-37); BUN Creatinine Ratio 23.5; Bilirubin Total 0.5 mg/dL (0.2-1.0); C Reactive Protein <0.50 mg/dL (<=0.50); Calcium 9.2 mg/dL (8.5-10.1); Globulin 3.2 g/dL; Lactate Dehydrogenase 208 U/L (85-227); Total Protein 6.3 g/dL (6.4-8.2)
[2024-11-18 14:13] LABS: Basophils Percent Auto 0.4 % (0.2-2.0); Eosinophils Absolute Auto 1.5 10^3/uL (0.0-0.7); Eosinophils Percent Auto 19.6 % (0.9-7.0); Hematocrit 42.8 % (42.0-54.0); Hemoglobin 13.8 g/dL (14.0-18.0); Immature Granulocytes Abs Auto 0.02 10^3/uL (0.00-0.03); Immature Granulocytes Pct Auto 0.3 % (0.0-0.5); Lymphocytes Absolute Auto 0.6 10^3/uL (1.2-3.8); Lymphocytes Percent Auto 8.2 % (20.5-60.0); Mean Corpuscular HGB Conc 32.2 g/dL (29.9-35.2); Mean Corpuscular Hemoglobin 30.1 pg (25.9-34.0); Mean Corpuscular Volume 93.4 fL (80.0-94.0); Monocytes Absolute Auto 0.6 10^3/uL (0.3-0.8); Monocytes Percent Auto 7.9 % (1.7-12.0); Neutrophils Absolute Auto 4.8 10^3/uL (1.4-6.5); Neutrophils Percent Auto 63.6 % (43.0-75.0); Percent Iron Saturation 38.8 %; Platelet Count 204 10^3/uL (150-450); Red Blood Count 4.58 10^6/uL (4.70-6.10); Red Cell Distribution Width 13.9 % (11.0-15.0); White Blood Count 7.6 10^3/uL (4.0-11.0)
[2024-11-18 14:23] LABS: Erythrocyte Sedimentation Rate 11 mm/hr (<=20)
== END 2024-11-19 08:19 | disposition home or self-care (01) ==
LOC: HEMC 07:42
PROVIDERS: PCP Nurse Practitioner Family; Visit Provider Internal Medicine Hematology & Oncology
DX: C85.11 Unspecified B-cell lymphoma, lymph nodes of head, face, and neck (principal); R74.01 Elevation of levels of liver transaminase levels; D50.9 Iron deficiency anemia, unspecified; D64.9 Anemia, unspecified; C81.18 Nodular sclerosis Hodgkin lymphoma, lymph nodes of multiple sites; R11.2 Nausea with vomiting, unspecified; D70.1 Agranulocytosis secondary to cancer chemotherapy; Z79.899 Other long term (current) drug therapy; Z80.3 Family history of malignant neoplasm of breast; R53.83 Other fatigue; R00.0 Tachycardia, unspecified; H91.90 Unspecified hearing loss, unspecified ear; Z91.81 History of falling
CPT/HCPCS: 36591; 80053; 82728; 83540; 83550; 83615; 85025; 85652; 86140; G0463

== ENCOUNTER 2024-12-15 14:45 | Outpatient (OUT) | payer MEDICARE, SELFPAY ==
--- NOTE | 2024-12-15 14:49 | PE_ITS ---
The [address] [address] Patient Name: NABEEL TRAN MRN: [id number] date: 1955 Sex: M Assigned Patient Location: PETCT Current Patient Location: Accession/Order Number: [id number] Exam Date: 12/16/2024 09:23 Report Date: 12/16/2024 09:43 At the request of: JOAN HURLEY MD Procedure: PET skull to mid thigh PET/CT WITH FUSION COMPARISON: 05/12/2024 CLINICAL DATA: Follow-up lymphoma Following the intravenous administration of 12.91 mCi of FDG, SPECT imaging in 3 planes was performed from the level the orbits through the groin. Patient's blood glucose level at the time of injection was 116 mg/dL. Spiral unenhanced CT was also performed for anatomic localization. The PET and CT images were fused. This CT exam was performed using one or more following dose reduction techniques: Automated exposure control, adjustment of the mA and/or kV according to patient size, or use of iterative reconstruction technique. NECK: No residual enlarged or hypermetabolic lymph nodes are identified. Mild physiologic activity is seen at the thyroid lobes. CHEST: No enlarged or hypermetabolic mediastinal or hilar lymph nodes are present. There are calcified hilar granulomas, greater on the left. There are hemostasis clips at the right axilla. There is one residual enlarged lymph node with SUV of 2.2. There is significant improvement of other adenopathy seen at that site at the time of the comparison. No other residual hypermetabolism is present. There is atelectasis and/or scarring at the lower lungs and a left lower lobe calcified granuloma. ABDOMEN/PELVIS: There are no hypermetabolic hepatic or adrenal lesions. There are no enlarged or hypermetabolic abdominal or pelvic lymph nodes. There is physiologic activity involving the urinary tract and bowel. There are multiple renal hypodensities suggesting potential cysts. There is a tiny umbilical hernia containing fat. There is enlarged prostate with calcifications. PET/PET skull to mid thigh IMPRESSION: SIGNIFICANT IMPROVEMENT OF RIGHT SUPRACLAVICULAR AND AXILLARY ADENOPATHY WITH ONE RESIDUAL ENLARGED AXILLARY LYMPH NODE WITH SUV OF 2.2 Deauville score 2 Impression dictated by: Evelyn Guidry M.D. 12/16/2024 9:43 AM Dictation Location: [place] [address] Electronically authenticated by: [id number] Y Date: 12/16/2024 09:43
== END 2024-12-15 14:46 | disposition home or self-care (01) ==
LOC: PETCT 14:45
PROVIDERS: PCP Nurse Practitioner Family; Visit Provider Internal Medicine Hematology & Oncology
DX: C85.11 Unspecified B-cell lymphoma, lymph nodes of head, face, and neck (principal); R74.01 Elevation of levels of liver transaminase levels; D50.9 Iron deficiency anemia, unspecified; D64.9 Anemia, unspecified; C81.18 Nodular sclerosis Hodgkin lymphoma, lymph nodes of multiple sites; R11.2 Nausea with vomiting, unspecified; D72.829 Elevated white blood cell count, unspecified; Z79.899 Other long term (current) drug therapy
CPT/HCPCS: 78815; A9552

== ENCOUNTER 2024-12-23 07:53 | Outpatient (RCR) | payer MEDICARE, SELFPAY ==
[2024-12-23] MEDS: HEPARIN SODIUM (PORCINE) PF LOCK FLUSH 500 UNIT/5 ML SYRINGE IV (15:08)
[2024-12-23 15:21] LABS: Basophils Percent Auto 0.5 % (0.2-2.0); Eosinophils Absolute Auto 0.4 10^3/uL (0.0-0.7); Eosinophils Percent Auto 7.2 % (0.9-7.0); Hematocrit 43.9 % (42.0-54.0); Hemoglobin 14.7 g/dL (14.0-18.0); Immature Granulocytes Abs Auto 0.02 10^3/uL (0.00-0.03); Immature Granulocytes Pct Auto 0.4 % (0.0-0.5); Lymphocytes Absolute Auto 0.8 10^3/uL (1.2-3.8); Mean Corpuscular HGB Conc 33.5 g/dL (29.9-35.2); Mean Corpuscular Hemoglobin 30.7 pg (25.9-34.0); Mean Corpuscular Volume 91.6 fL (80.0-94.0); Mean Platelet Volume 9.8 fL (9.5-13.5); Monocytes Absolute Auto 0.6 10^3/uL (0.3-0.8); Monocytes Percent Auto 10.8 % (1.7-12.0); Neutrophils Absolute Auto 3.7 10^3/uL (1.4-6.5); Neutrophils Percent Auto 67.1 % (43.0-75.0); Platelet Count 183 10^3/uL (150-450); Red Blood Count 4.79 10^6/uL (4.70-6.10); Red Cell Distribution Width 13.2 % (11.0-15.0); White Blood Count 5.6 10^3/uL (4.0-11.0)
[2024-12-23 15:54] LABS: Alanine Aminotransferase 30 U/L (16-63); Albumin Level 3.2 g/dL (3.4-5.0); Alkaline Phosphatase 66 U/L (46-116); Anion Gap 10.1; Aspartate Amino Transferase 21 U/L (15-37); Bilirubin Total 0.4 mg/dL (0.2-1.0); Carbon Dioxide 30.9 mmol/L (21.0-32.0); Chloride 107 mmol/L (98-107); Estimated GFR (African America >60 (>=60 mL/min/1.73m^2); Estimated GFR (Non-African Ame >60 (>=60 mL/min/1.73m^2); Globulin 3.2 g/dL; Glucose 84 mg/dL (74-106); Lactate Dehydrogenase 136 U/L (85-227); Sodium 144 mmol/L (136-145); Total Protein 6.4 g/dL (6.4-8.2)
== END 2024-12-24 08:06 | disposition home or self-care (01) ==
LOC: HEMC 07:53
PROVIDERS: PCP Nurse Practitioner Family; Visit Provider Internal Medicine Hematology & Oncology
DX: C85.11 Unspecified B-cell lymphoma, lymph nodes of head, face, and neck (principal); R74.01 Elevation of levels of liver transaminase levels; D50.9 Iron deficiency anemia, unspecified; D64.9 Anemia, unspecified; C81.18 Nodular sclerosis Hodgkin lymphoma, lymph nodes of multiple sites; R11.2 Nausea with vomiting, unspecified; D70.1 Agranulocytosis secondary to cancer chemotherapy; Z79.899 Other long term (current) drug therapy
CPT/HCPCS: 36591; 80053; 83615; 85025; G0463; J1642

== ENCOUNTER 2025-01-26 07:39 | Outpatient (RCR) | payer MEDICARE, SELFPAY ==
[2025-01-26] MEDS: HEPARIN SODIUM (PORCINE) PF LOCK FLUSH 500 UNIT/5 ML SYRINGE IV (09:22)
[2025-01-26 09:30] LABS: Basophils Absolute Auto 0.1 10^3/uL (0.0-0.1); Basophils Percent Auto 0.7 % (0.2-2.0); Eosinophils Absolute Auto 0.4 10^3/uL (0.0-0.7); Hemoglobin 15.6 g/dL (14.0-18.0); Immature Granulocytes Abs Auto 0.02 10^3/uL (0.00-0.03); Immature Granulocytes Pct Auto 0.3 % (0.0-0.5); Lymphocytes Percent Auto 13.2 % (20.5-60.0); Mean Corpuscular HGB Conc 33.9 g/dL (29.9-35.2); Mean Corpuscular Hemoglobin 30.6 pg (25.9-34.0); Mean Corpuscular Volume 90.2 fL (80.0-94.0); Mean Platelet Volume 9.8 fL (9.5-13.5); Monocytes Absolute Auto 0.7 10^3/uL (0.3-0.8); Monocytes Percent Auto 9.5 % (1.7-12.0); Neutrophils Absolute Auto 5.2 10^3/uL (1.4-6.5); Neutrophils Percent Auto 71.3 % (43.0-75.0); Platelet Count 205 10^3/uL (150-450); Red Cell Distribution Width 13.2 % (11.0-15.0); White Blood Count 7.4 10^3/uL (4.0-11.0)
[2025-01-26 09:53] LABS: Alanine Aminotransferase 30 U/L (16-63); Albumin Globulin Ratio 1.1; Albumin Level 3.6 g/dL (3.4-5.0); Alkaline Phosphatase 83 U/L (46-116); Anion Gap 9.5; Aspartate Amino Transferase 26 U/L (15-37); BUN Creatinine Ratio 34.1; Bilirubin Total 0.6 mg/dL (0.2-1.0); Calcium 9.2 mg/dL (8.5-10.1); Carbon Dioxide 33.7 mmol/L (21.0-32.0); Chloride 105 mmol/L (98-107); Estimated GFR (African America >60 (>=60 mL/min/1.73m^2); Estimated GFR (Non-African Ame >60 (>=60 mL/min/1.73m^2); Globulin 3.4 g/dL; Glucose 101 mg/dL (74-106); Lactate Dehydrogenase 126 U/L (85-227); Potassium 4.2 mmol/L (3.5-5.1); Sodium 144 mmol/L (136-145)
== END 2025-02-02 23:59 | disposition home or self-care (01) ==
LOC: HEMC 07:39
PROVIDERS: PCP Nurse Practitioner Family; Visit Provider Internal Medicine Hematology & Oncology
DX: C85.11 Unspecified B-cell lymphoma, lymph nodes of head, face, and neck (principal); R74.01 Elevation of levels of liver transaminase levels; D50.9 Iron deficiency anemia, unspecified; D64.9 Anemia, unspecified; C81.18 Nodular sclerosis Hodgkin lymphoma, lymph nodes of multiple sites; R11.2 Nausea with vomiting, unspecified; D70.1 Agranulocytosis secondary to cancer chemotherapy; Z79.899 Other long term (current) drug therapy
CPT/HCPCS: 36591; 80053; 83615; 85025; J1642

== ENCOUNTER 2025-02-17 08:35 | Outpatient (RCR) | payer MEDICARE, SELFPAY ==
[2025-02-17 09:57] LABS: Hematocrit 45.4 % (42.0-54.0); Hemoglobin 15.1 g/dL (14.0-18.0); Immature Granulocytes Abs Auto 0.04 10^3/uL (0.00-0.03); Immature Granulocytes Pct Auto 0.5 % (0.0-0.5); Lymphocytes Absolute Auto 1.1 10^3/uL (1.2-3.8); Mean Corpuscular HGB Conc 33.3 g/dL (29.9-35.2); Mean Corpuscular Hemoglobin 30.4 pg (25.9-34.0); Mean Corpuscular Volume 91.5 fL (80.0-94.0); Platelet Count 209 10^3/uL (150-450); Red Blood Count 4.96 10^6/uL (4.70-6.10); White Blood Count 7.3 10^3/uL (4.0-11.0)
[2025-02-17 10:01] LABS: Alanine Aminotransferase 42 U/L (16-63); Albumin Globulin Ratio 1.0; Albumin Level 3.4 g/dL (3.4-5.0); Alkaline Phosphatase 89 U/L (46-116); Anion Gap 11.7; Aspartate Amino Transferase 26 U/L (15-37); Blood Urea Nitrogen 22.0 mg/dL (7.0-18.0); Calcium 9.3 mg/dL (8.5-10.1); Carbon Dioxide 29.3 mmol/L (21.0-32.0); Chloride 107 mmol/L (98-107); Estimated GFR (African America >60 (>=60 mL/min/1.73m^2); Estimated GFR (Non-African Ame >60 (>=60 mL/min/1.73m^2); Globulin 3.4 g/dL; Glucose 108 mg/dL (74-106); Potassium 4.0 mmol/L (3.5-5.1); Sodium 144 mmol/L (136-145); Total Protein 6.8 g/dL (6.4-8.2)
== END 2025-03-05 23:59 | disposition home or self-care (01) ==
LOC: HEMC 08:35
PROVIDERS: PCP Nurse Practitioner Family; Visit Provider Internal Medicine Hematology & Oncology
DX: C85.11 Unspecified B-cell lymphoma, lymph nodes of head, face, and neck (principal); R74.01 Elevation of levels of liver transaminase levels; D50.9 Iron deficiency anemia, unspecified; D64.9 Anemia, unspecified; C81.18 Nodular sclerosis Hodgkin lymphoma, lymph nodes of multiple sites; R11.2 Nausea with vomiting, unspecified; D70.1 Agranulocytosis secondary to cancer chemotherapy; Z79.899 Other long term (current) drug therapy; H91.90 Unspecified hearing loss, unspecified ear; R62.7 Adult failure to thrive; R00.0 Tachycardia, unspecified
CPT/HCPCS: 36591; 80053; 83615; 85025; G0463

== ENCOUNTER 2025-02-20 13:19 | Outpatient (OUT) | payer MEDICARE, SELFPAY ==
--- NOTE | 2025-02-20 13:39 | CT_ITS ---
The [address] [address] Patient Name: NABEEL TRAN MRN: [id number] date: 1955 Sex: M Assigned Patient Location: LAB Current Patient Location: CARD Accession/Order Number: [id number] Exam Date: 02/20/2025 16:53 Report Date: 02/20/2025 17:01 At the request of: JOAN HURLEY MD Procedure: CT chest wo/w con CT CHEST WITH AND WITHOUT INTRAVENOUS CONTRAST: CLINICAL HISTORY: B Cell Lymphoma , Nodular Sclerosis Hodgkin Lymphoma COMPARISON: 03/29/2024 TECHNIQUE: Spiral images were obtained through the chest with and without intravenous administration of IV contrast. This CT exam was performed using one or more following dose reduction techniques: Automated exposure control, adjustment of the mA and/or kV according to patient size, or use of iterative reconstruction technique. FINDINGS: Mediastinum:Cardiac megaly. No pericardial effusion. Coronary artery calculations. Calcified granulomatous left hilar region. No pathologically enlarged mediastinal or hilar nodes. A large right axilla Lungs:Bibasilar atelectasis and or scarring. Trace effusions. Left lower lobe calcified granulomatous. There are groundglass opacities right upper lobe noted with slight nodular configuration. Right-sided Mediport represent [id number]-e-[id number] device identified tip cavoatrial junction. Abd:[Upper abdominal images grossly unremarkable as visualized.] Soft tissues/Bones: [] A large right axillary lymph node measuring 3 cm in greatest dimension.. Right axillary surgical clips and or biopsy clips noted. Multilevel degenerative changes throughout the thoracic spine with multilevel disc osteophyte complex is noted. CT/CT chest wo/w con IMPRESSION: Nonspecific groundglass parenchymal opacity involving right upper lobe. This could be infectious or inflammatory in etiology. Recommend 3 month follow-up to document resolution following medical treatment course. Impression dictated by: Leno Landry M.D. 02/20/2025 5:01 PM Dictation Location: [place] [address] Electronically authenticated by: [id number] Y Date: 02/20/2025 17:01
--- NOTE | 2025-02-20 13:39 | CT_ITS ---
The [address] [address] Patient Name: NABEEL TRAN MRN: [id number] date: 1955 Sex: M Assigned Patient Location: LAB Current Patient Location: CARD Accession/Order Number: [id number] Exam Date: 02/20/2025 16:33 Report Date: 02/20/2025 16:43 At the request of: JOAN HURLEY MD Procedure: CT soft tissue neck wo/w con CT soft tissue neck wo/w con 02/20/2025 2:20 PM SIGNS AND SYMPTOMS: ^B Cell Lymphoma , Nodular Sclerosis Hodgkin Lymphoma TECHNIQUE: Multidetector CT axial slices of the soft tissues of the neck were obtained without and with IV contrast. Sagittal and coronal reformats were reconstructed. CT was performed with one or more of the following dose reduction techniques: Automated exposure control, adjustment of the mA and/or kV according to patient size, or use of iterative reconstruction technique. COMPARISON: PET/CT 12/15/2024 FINDINGS: The nasopharynx, oropharynx, hypopharynx, glottic, and subglottic regions are unremarkable. The parotid glands, submandibular, and the thyroid gland are within normal limits. Prepontine cistern calcific density noted unclear if this is vascular in etiology. 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 Left mastoid is clear. The visualized lung parenchyma shows no acute pathology. Reversal normal cervical lordosis. Multilevel disc osteophyte complex infiltration identified. Right-sided Mediport/be reported by 7 5 partially visualized. No pathologic adenopathy identified with neck. Mildly prominent submental lymph node noted CT/CT soft tissue neck wo/w con IMPRESSION: No evidence of lymphoma within the neck. 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 Impression dictated by: Leno Landry M.D. 02/20/2025 4:43 PM Dictation Location: [place] [address] Electronically authenticated by: [id number] Y Date: 02/20/2025 16:43
[2025-02-20 13:41] LABS: Hematocrit 46.7 % (42.0-54.0); Hemoglobin 15.5 g/dL (14.0-18.0); Immature Granulocytes Abs Auto 0.03 10^3/uL (0.00-0.03); Immature Granulocytes Pct Auto 0.4 % (0.0-0.5); Lymphocytes Absolute Auto 1.0 10^3/uL (1.2-3.8); Mean Corpuscular HGB Conc 33.2 g/dL (29.9-35.2); Mean Corpuscular Hemoglobin 30.5 pg (25.9-34.0); Mean Corpuscular Volume 91.7 fL (80.0-94.0); Platelet Count 190 10^3/uL (150-450); Red Blood Count 5.09 10^6/uL (4.70-6.10); White Blood Count 7.2 10^3/uL (4.0-11.0)
--- OUTSIDE RECORDS SUMMARY | 2025-02-20 13:41 | XMS_ITS | CCD ---
Author Organization [facility] [place] Care Team Providers Care Ton Cylinder Inspector Name Role Phone PHYSICIAN, DEFAULT Unavailable Unavailable PHYSICIAN, DEFAULT Unavailable Unavailable PHYSICIAN, DEFAULT Unavailable Unavailable PHYSICIAN, DEFAULT Unavailable Unavailable PHYSICIAN, DEFAULT Unavailable Unavailable PHYSICIAN, DEFAULT Unavailable Unavailable UNKNOWN, PROVIDER Unavailable Unavailable UNKNOWN, PROVIDER Unavailable Unavailable NEVILLE MATA Unavailable Unavailable NEVILLE MATA Unavailable Unavailable SAMUEL, AILIN Admitting Unavailable SAMUEL, AILIN Attending Unavailable AILIN BAKER Primary Care Unavailable SAMUEL, AILIN Admitting Unavailable SAMUEL, AILIN Attending Unavailable SAMUEL, AILIN Consulting Unavailable AILIN BAKER Primary Care Unavailable AILIN BAKER Attending Unavailable NEVILLE MATA Primary Care Unavailable SAMUEL, AILIN Consulting Unavailable SAMUEL, AILIN Admitting Unavailable ILAN TODD Attending Unavailable ILAN TODD Consulting Unavailable ILAN TODD Admitting Unavailable SAMUEL AILIN Primary Care Unavailable AMARIS WALKER Consulting Unavailable AILIN GREEN Primary Care Physician DO González Moon Primary Care Provider [phone] MD Nabeel Strange Attending Provider MD Jassi Alegria Attending Provider Peter ELLIS, Ailin Unavailable Ailin Green MD Unavailable MD Sonia Donnelly Attending Provider MEHRDAD Green Primary Care Provider Jassi Alegria Attending Unavailable Jassi Alegria Admitting Unavailable González Moon Primary Care Unavailable Nabeel Strange Admitting Unavailable Nabeel Strange Attending Unavailable Ailin Green Primary Care Unavailable Sonia Donnelly Attending Unavailable Andrzej Sonia Admitting Unavailable NILL, Jassi R Attending Unavailable NILL, Jassi R Attending Unavailable NILL, Jassi R Attending Unavailable NILL, Jassi R Attending Unavailable Moody POP Attending Unavailable DONN, Moody Aranda Attending Unavailable AILIN GREEN S Referring Unavailable NILL, Jassi R Attending Unavailable Moody POP Attending Unavailable Jah Damian MD Primary Care Provider [phone] Unavailable Primary Care Provider Unavailbraeden Arenas DO, Christopher Unavailable [phone] CLEVE QUINN Attending Unavailable DEEPA, CHRISTOPHER Referring Unavailable YANNA HARRISON Attending Unavailable DEEPA CHRISTOPHER Attending Unavailable PETER, AILIN Referring Unavailable LILLIAN NAGEL Attending Unavailable LILLIAN NAGEL Attending Unavailable DEEPA CHRISTJOSEER Attending Unavailable DEEPA, CHRISTOPHER Attending Unavailable CLEVE QUINN Attending Unavailable DEEPA, CHRISTOPHER Referring Unavailable AUREA SANCHEZ Attending Unavailable DEEPA, CHRISTOPHER Referring Unavailable FABIOLA BENDER Attending Unavailable JEROD STATON Attending Unavailable JEROD STATON Attending Unavailable JEROD STATON Attending Unavailable Unavailable Primary Care Provider UnavailMargo Garcia RD Unavailable Ailin Green CNP Primary Care Provider [phone] CATRACHITO, RG Referring Unavailable CATRACHITO, RG Referring Unavailable CATRACHITO, RG Attending Unavailable ANDRZEJ, SONIA Referring Unavailable CATRACHITO, RG Referring Unavailable CATRACHITO, RG Referring Unavailable CATRACHITO, RG Attending Unavailable CATRACHITO, RG Attending Unavailable CATRACHITO, RG Referring Unavailable CATRACHITO, RG Referring Unavailable CATRACHITO, RG Referring Unavailable MARGO SCHUMACHER Attending Unavailabl e CATRACHITO, RG Attending Unavailable CATRACHITO, RG Referring Unavailable CATRACHITO, RG Referring Unavailable CATRACHITO, RG Attending Unavailable CATRACHITO, RG Referring Unavailable CATRACHITO, RG Attending Unavailable CATRACHITO, RG Attending Unavailable CATRACHITO, RG Referring Unavailable AILIN GREEN S Primary Care Unavailable CATRACHITO, RG Referring Unavailable CATRACHITO, RG Referring Unavailable CATRACHITO, RG Referring Unavailable CATRACHITO, RG Referring Unavailable CATRACHITO, RG Referring Unavailable CATRACHITO, RG Referring Unavailable CATRACHITO, RG Attending Unavailable CATRACHITO, RG Referring Unavailable MARGO SCHUMACHER Attending Unavailabl e CATRACHITO, RG Referring Unavailable CATRACHITO, RG Referring Unavailable CATRACHITO, RG Referring Unavailable CATRACHITO, RG Referring Unavailable CATRACHITO, RG Referring Unavailable CATRACHITO, RG Referring Unavailable Allergies Allergy Classification Reported Allergen(s) Allergy Type Date of Onset Reaction(s) Facility (2 sources) No Known Allergies; Translations: [No Known Allergies] Propensity to adverse reactions (disorder) 7 [facility] Repository (1 source) Unable to Assess Drug allergy (disorder) [address] [place] [address] Repository (1 source) No Known Medication Allergies; Translations: [No Known Medication Allergies] Propensity to adverse reactions (disorder) [facility] Repository (1 source) empagliflozin; Translations: [EMPAGLIFLOZIN] Drug Allergy [address] [place] [address] Repository (15 sources) no latex allergy [Other] Propensity to adverse reactions 5 [facility] (1 source) OTHER; Translations: [OTHER] Propensity to adverse reactions (disorder) 5 [facility] Repository Medications Current Medications Medication Drug Class(es) Dates Sig (Normalized) Sig (Original) amLODIPine 10 mg oral tablet (1 source) Dihydropyridine Calcium Channel Erick Start: 01-21-2024 amLODIPine 10 mg Tab 90 tab(s), 0 Refill(s), Refills(s) 0 Start Date: 01/21/24 Status: Ordered apixaban 5 mg oral tablet (20 sources) Factor Xa Inhibitor Start: 06-15-2024 apixaban (ELIQUIS) 5 mg tab(s) Take 5 mg by mouth. 06/15/2024 Active atorvastatin 10 mg oral tablet (20 sources) HMG-CoA Reductase Inhibitor Start: 03-28-2024 End: 03-28-2025 atorvastatin (LIPITOR) 10 mg tablet Take 10 mg by mouth. 03/28/2024 03/28/2025 Active Start: 01-21-2024 atorvastatin 4 [...] (20 sources) Calcium Channel Erick Start: 06-15-2024 dilTIAZem CD (CARDIZEM CD, CARTIA XT) 240 mg 24 hr capsule Take 240 mg by mouth. 06/15/2024 Active Start: 06-15-2024 take 1 capsule by [facility] twenty-four hours in the morning [...] Refills(s) 0 Start Date: 04/25/24 Status: Ordered insulin glargine (LANTUS) 100 unit/mL injection Inject subcutaneously. Active inject 20 [IU] by ordoñez bcutaneous injection at bedtime insulin glargine (Lantus) 100 UNIT/ML injection Inject 20 Units under the skin at bedtime Active liothyronine sodium 0.005 mg oral tablet (20 sources) l-Triiodothyronine Start: 05-27-2024 take 1 tablet by mouth once daily liothyronine 5 mcg Tab 5 mcg = 1 tab(s), Oral, Daily, Refills(s) 0 Start Date: 05/27/24 Status: Ordered liothyronine (CY TOMEL) 5 mcg tablet Take 10 mcg by mouth. Active losartan potassium 100 mg oral tablet [...] Active metoprolol tartrate 25 mg oral tablet (20 sources) beta-Adrenergic Erick Start: 07-17-2024 metopr olol tartrate, short acting, (LOPRESSOR) 25 mg tablet Take 50 mg by mouth. 07/17/2024 Active take 1 tablet by mouth in the mo rning metoprolol tartrate (Lopressor) 50 MG tablet Take 50 mg by mouth in the morning and 50 mg before bedtime. Active ondansetron 4 mg oral tablet (20 sources) Serotonin-3 Receptor Antagonist Start: 05-27-2024 ondansetron 4 mg Tab as directed, Refills(s) 0 Start Date: 05/27/24 Status: Ordered Start: 05-21-2024 take 1 tablet by anais th every twenty-four hours as needed ondansetron orally disintegrating (ZOFRAN ODT) 4 mg disintegrating tablet Take 4 mg by mouth at bedtime as needed. 05/21/2024 Active pantoprazole 40 mg delayed release oral tablet (20 sources) Proton Pump Inhibitor Start: 06-17-[address] (PROTONIX) 40 mg tablet 40 mg. 06/17/2024 Active prochlorperazine 10 mg oral tablet [...] 01/21/2024 Active sucralfate 1000 mg oral tablet (7 sources) Aluminum Complex Start: 07-13-2024 take 1 [...] day(s), # 90 cap(s), Refills(s) 3, Pharmacy: [facility], 187, cm, 01/21/24 11:48:00 [...] completed, # 2 tab(s), Refills(s) 0, Pharmacy: [id number], 187, cm, 01/21/24 11:48:00 EDT, Height/Length Dosing, 118, kg, 01/21/24 11:48:00 EDT, Weight Dosing Start Date: 01/21/24 Status: Ordered DULoxetine 60 mg delayed release oral capsule (2 sources) Serotonin and Norepinephrine Reuptake Inhibitor Start: 02-08-2007 End: 09-25-2024 take 1 capsule by mouth once daily duloxetine (CYMBALTA) 60 mg ORAL CpDR Take one(1) capsule daily. 90 3 02/08/2007 09/25/2024 Discontinued (Course of therapy completed) Start: 11-12-2006 End: 09-25-2024 CYMBALTA 30 MG CAP Indicatio ns: Headache(784.0) , Trigeminal nerve disorder, unspecified Take one(1) capsule daily for 2 weeks then bid 60 6 11/12/2006 09/25/2024 Discontinued (Course of therapy completed) eletriptan 40 mg oral tablet (1 source) Serotonin-1b and Serotonin-1d Receptor Agonist Start: 02-13-2007 End: 09-25-2024 eletriptan (RELPAX) 40 mg ORAL Tab Indications: Headache(784.0) , Trigeminal nerve disorder, unspecified take 1 po prn severe GEORGES, may repeat once after 2 hrs (max 2/d, 3 days/week) 36 3 02/13/2007 09/25/2024 Discontinued (Course of therapy completed) esomeprazole 40 mg delayed release oral capsule (1 source) Proton Pump Inhibitor Start: 02-13-2007 End: 09-25-2024 take 1 capsule by mouth once daily esomeprazole (NEXIUM) 40 mg ORAL CpDR Indications: Headache(784.0) , Trigeminal nerve disorder, unspecified Take one(1) capsule daily. 90 3 02/13/2007 09/25/2024 Discontinued (Discontinued by another Health Care Provider) ibuprofen 200 mg oral tablet (1 source) Nonsteroidal Anti-inflammatory Drug Start: 10-08-2006 End: 09-25-2024 IBUPROFEN 200 MG TAB 0 10/08/2006 09/25/2024 Discontinued (Course of therapy completed) indomethacin 75 mg extended release oral capsule (1 source) Nonsteroidal Anti-inflammatory Drug Start: 02-08-2007 End: 09-25-2024 indomethacin SR (INDOCIN SR) 75 mg ORAL CpSR Indications: Headache(784.0) , Trigeminal nerve disorder, unspecified after prednisone taper, take 1 po bid 180 3 02/08/2007 09/25/2024 Discontinued (Course of therapy completed) predniSONE 10 mg oral tablet (1 source) Start: 11-12-2006 End: 09-25-2024 PREDNISONE 10 MG TAB Indications: Headache(784.0) , Trigeminal nerve disorder, unspecified take 60mg po qd for 10 days then decrease by 10mg every 3 days 1 course 0 11/12/2006 09/25/2024 Discontinued (Course of therapy completed) Problems Active Problems Problem Classification Problem Date [...] ] Onset: 2017 04-25-2024 Chronic Hodgkin`s disease (13 sources) Nodular sclerosis Hodgkin lymphoma, lymph nodes [...] access 06-03-2024 Episodic Other connective tissue disease (3 sources) Other symptoms and signs involving the [...] Episodic Other ear and sense organ disorders (5 sources) Sensorineural hearing loss, bilateral; Translations: [Sensorineural hearing loss, bilateral] 06-27-2024 Chronic Other ear and sense organ disorders (1 source) Asymmetrical sensorineural hearing loss; Translations: [Sensorineural hearing loss, bilateral] 07-31-2024 Chronic Other ear and sense organ disorders (3 sources) Sudden idiopathic hearing loss; Translations: [Sudden idiopathic hearing loss, left ear] 05-26-2024 Episodic Other nervous system disorders (8 sources) Polyneuropathy; Translations: [Polyneuropathy, unspecified] 07-10-2024 Chronic Other nervous system disorders (1 source) H/O: brain disorder 01-21-2024 Episodic Other nervous system disorders (3 sources) Poor balance; Translations: [Other abnormalities of [...] UNK(Unknown) Onset: 2017 Unclassified (1 source) intermediate (current) use of oral hypoglycemic drugs; Translations: [GOLD RECLAIMER (CURRENT) USE OF ORAL 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 DRUGS] Onset: 2017 Unclassified (4 sources) Patient encounter status 01-21-2024 Viral infection (1 source) COVID-19; Translations: [COVID-19] Onset: 12-08-2020 Past or Other Problems Problem Classification Problem Date Documented Da te Episodic/Chronic Complications of surgical procedures or medical care (2 sources) Hypotension due to drugs; Translations: [Hypotension due to drugs] Onset: 03-28-2024 Episodic Other aftercare (1 source) intermediate (current) use of aspirin; Translations: [SKILLED NURSING (CURRENT) USE OF ASPIRIN] Onset: 2017 Episodic Other lower respiratory disease (3 sources) Shortness of breath; Translations: [SHORTNESS OF BREATH] Onset: 2017 Episodic Other lower respiratory disease (3 sources) Cough; Translations: [COUGH] Onset: 12-06-2020 Episodic Results Test Name Value Interpretation Reference Range Facility [facility] 12-18-2024 CNOV Office Visit (RADTSA ) NABEEL TRAN ([id number]) 1955 M Date Time Provider Department 12/18/24 10:30 AM RG WINSTON During your visit today, we recorded the following information about you: Pulse Respiration Blood pressure Weight 59/minute 18/minute 113/65 84.2 kg Rg Winston MD 01/13/2025 3:50 AM Addendum Radiation Oncology - Follow Up Note PATIENT NAME: Nabeel Tran PATIENT DIAGNOSIS/PATIENT IDENTIFICATION: Mr. 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 He completed a total of 4 cycles of ABVD under the care of Dr. Donnelly at [facility] and repeat pet imaging after the third cycle on 09/08/2024 noted excellent metabolic response (Deauville 3). He completed a course of consolidative radiation therapy to the right axilla and neck on 11/17/2024 (3600 cGy delivered in 20 fractions). Mr. Tran returns to clinic today for routine follow-up approximately one month after the completion of his radiation treatments. In the interim, he had initial posttreatment imaging with PET/CT on 12/15/2024 which showed significant improvement of the right supraclavicular and axillary ymphadenopathy with one residual enlarged lymph node with SUV of 2.2 from previous value of 2.8 on preradiation scan from 09/08/2024 Today he reports doing well and denies any pain or discomfort in the right axilla/neck and no skin irritation or breakdown. His range of motion remains unchanged and he notes no signs of lymphedema. He notes no new lumps or bumps in the treatment area or elsewhere. He did start steroids which he notes improvement in his skin rash and itching. He endorses stable energy appetite and hydration with stable weight. After reviewing the images and discussion with Dr. Donnelly, we agreed to repeat his imaging in 2 to 3 months to note stability. I will plan to see him back in approximately 4 months and he will follow with Dr. Donnelly scheduled for continued evaluation and surveillance including imaging. The patient is aware to contact the clinic in the interim should any questions or concerns arise. Thank you for allowing us to participate in the care of this patient. RADIOLOGIC DATA: PET/CT (12/15/2024) Signed by: Rg Winston MD This document has been created with the use of voice recognition technology. It may contain inaccuracies, misspellings, inaccurate syntax or inappropriate word context that are a result of the inadequacies/shortcomings of said technology/software. Referring Provider: RG WINSTON [[id number]] Allergies As of Date: 12/18/2024 Noted Allergy Reaction NO KNOWN DRUG ALLERGIES 07/24/2005 no latex allergy [Other] 07/24/2005 Date Reviewed: 12/18/2024 Reviewed by: Coty Chan RN - Fully Assessed Reason for Visit: Hodgkin's Disease [554] Primary Visit Diagnosis:Hodgkin lymphoma, unspecified Hodgkin lymphoma type, unspecified body region (HCC) [C81.90] Prescriptions as of 01/13/2025 - atorvastatin (LIPITOR) 10 mg tablet Take 10 mg by mouth. - liothyronine (CYTOMEL) 5 mcg tablet Take 10 mcg by mouth. - dilTIAZem CD (CARDIZEM CD, CARTIA XT) 240 mg 24 hr capsule Take 240 mg by mouth. - apixaban (ELIQUIS) 5 mg tab(s) Take 5 mg by mouth. - insulin glargine (LANTUS) 100 unit/mL injection Inject subcutaneously. - metoprolol tartrate, short acting, (LOPRESSOR) 25 mg tablet Take 50 mg by mouth. - ondansetron orally disintegrating (ZOFRAN ODT) 4 mg disintegrating tablet Take 4 mg by mouth at bedtime as needed. - pantoprazole DR (PROTONIX) 40 mg tablet 40 mg. Problem List As Of Date: 12/18/2024 (None) Disposition: Return in about 4 months (around 04/20/2025). Follow-up and Disposition History for Encounter Date Provider Department Center 12/18/2024 [id number] WINSTON Encounter Status:Closed by RG WINSTON on 12/29/24 [facility] ([id number]) 1955 M Date Time Provider Department 12/02/24 RG WINSTON During your visit today, we recorded the following information about you: Ana Paula Chauhan RN 12/02/2024 1:06 PM Signed I called and left a message for Nabeel to call back for an update post radiation completion. BRANDAN Chen Ariana E, RN 12/09/2024 4:04 PM Signed I left another message for Nabeel to return my call. Ana Paula Chauhan RN Allergies As of Date: 12/02/2024 Noted Allergy Reaction NO KNOWN DRUG ALLERGIES 07/24/2005 no latex allergy [Other] 07/24/2005 Date Reviewed: 11/17/2024 Reviewed by: Margo Schumacher RD - Fully Assessed Prescriptions as of 12/11/2024 - atorvastatin (LIPITOR) 10 mg tablet Take 10 mg by mouth. - liothyronine (CYTOMEL) 5 mcg tablet Take 10 mcg by mouth. - dilTIAZem CD (CARDIZEM CD, CARTIA XT) 240 mg 24 hr capsule Take 240 mg by mouth. - apixaban (ELIQUIS) 5 mg tab(s) Take 5 mg by mouth. - insulin glargine (LANTUS) 100 unit/mL injection Inject subcutaneously. - metoprolol tartrate, short acting, (LOPRESSOR) 25 mg tablet Take 50 mg by mouth. - ondansetron orally disintegrating (ZOFRAN ODT) 4 mg disintegrating tablet Take 4 mg by mouth at bedtime as needed. - pantoprazole DR (PROTONIX) 40 mg tablet 40 mg. Problem List As Of Date: 12/02/2024 (None) Encounter Status:Closed by ANA PAULA CHAUHAN on 12/11/24 [facility] CNOVon 11-13-2024 CNOV Office Visit (RADTSA ) NABEEL TRAN ([id number]) 1955 M Date Time Provider Department 11/13/24 10:00 AM RG WINSTON During your visit today, we recorded the following information about you: Temperature Pulse Respiration Blood pressure 97.3 degrees 66/minute 16/minute 121/87 Weight 82.3 kg Rg Winston MD 11/24/2024 10:41 PM Signed Radiation Oncology - On Treatment Review (OTR) Note PATIENT NAME: Nabeel Tran PATIENT DIAGNOSIS: Mr. 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 He completed a total of 4 cycles of ABVD under the care of Dr. Donnelly at [facility] and repeat pet imaging after the third cycle on 09/08/2024 noted excellent metabolic response (Deauville 3). COURSE: Consolidative AREA TREATED: Right axilla/neck CURRENT DOSE: 84142 cGy in 18 fx PLANNED DOSE: 3600 cGy in 20 fx SUBJECTIVE: Tolerating XRT well and reports no pain or discomfort in the treatment area with some slight skin erythema but no breakdown. His range of motion of the right upper extremity is stable with intact strength/use. He feels that his energy is improving with good appetite and hydration and stable weight. He notes continued generalized itching. EXAM: KPS: 90 General Appearance: Alert and oriented. No acute distress. Radiation dermatitis: Minimal IMAGING/LAB RESULTS: None Treatment chart checked: Yes Patient treatment site reviewed and verified:Yes Port films reviewed and current:Yes Medications started: None ASSESSMENT/PLAN: Clinically stable. Toxicity within expected parameters. Continue radiation treatment as planned. Rg Winston MD Referring Provider: RG WINSTON [[id number]] Allergies As of Date: 11/13/2024 Noted Allergy Reaction NO KNOWN DRUG ALLERGIES 07/24/2005 no latex allergy [Other] 07/24/2005 Date Reviewed: 11/13/2024 Reviewed by: Coty Chan, RN - Fully Assessed Reason for Visit: Radiotherapy On-treatment Visit [1722] Primary Visit Diagnosis:Hodgkin lymphoma, unspecified Hodgkin lymphoma type, unspecified body region (HCC) [C81.90] Prescriptions as of 11/24/2024 - atorvastatin (LIPITOR) 10 mg tablet Take 10 mg by mouth. - liothyronine (CYTOMEL) 5 mcg tablet Take 10 mcg by mouth. - dilTIAZem CD (CARDIZEM CD, CARTIA XT) 240 mg 24 hr capsule Take 240 mg by mouth. - apixaban (ELIQUIS) 5 mg tab(s) Take 5 mg by mouth. - insulin glargine (LANTUS) 100 unit/mL injection Inject subcutaneously. - metoprolol tartrate, short acting, (LOPRESSOR) 25 mg tablet Take 50 mg by mouth. - ondansetron orally disintegrating (ZOFRAN ODT) 4 mg disintegrating tablet Take 4 mg by mouth at bedtime as needed. - pantoprazole DR (PROTONIX) 40 mg tablet 40 mg. Problem List As Of Date: 11/13/2024 (None) Encounter Status:Closed by RG WINSTON on 11/24/24 [facility] CNOVon 11-05-2024 CNOV Office Visit (RADTSA ) NABEEL TRAN ([id number]) 1955 M Date Time Provider Department 11/05/24 10:00 AM RG WINSTON RADTSA During your visit today, we recorded the following information about you: Temperature Pulse Respiration Blood pressure 97.9 degrees 65/minute 16/minute 121/69 Weight 82.6 kg Rg Winston MD 11/18/2024 4:46 AM Addendum Radiation Oncology - On Treatment Review (OTR) Note PATIENT NAME: Nabeel Young Juanygia PATIENT DIAGNOSIS: Mr. 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 He completed a total of 4 cycles of ABVD under the care of Dr. Donnelly at [facility] and repeat pet imaging after the third cycle on 09/08/2024 noted excellent metabolic response (Deauville 3). COURSE: Consolidative AREA TREATED: Right axilla/neck CURRENT DOSE: 2160 cGy in 12 fx PLANNED DOSE: 3600 cGy in 20 fx SUBJECTIVE: Tolerating XRT well and denies any pain or discomfort in the treatment area or any skin irritation/breakdown with stable range of motion of the right upper extremity. He has noted some generalized itching which has been responding somewhat to Benadryl. EXAM: KPS: 90 General Appearance: Alert and oriented. No acute distress. Radiation dermatitis: No IMAGING/LAB RESULTS: None Treatment chart checked: Yes Patient treatment site reviewed and verified:Yes Port films reviewed and current:Yes Medications started: None ASSESSMENT/PLAN: Clinically stable. Toxicity within expected parameters. Continue radiation treatment as planned. As his generalized itching would not be a result of the radiation treatments, he was advised to meet with his primary care physician to further investigate if it persists. Rg Winston MD Allergies As of Date: 11/05/2024 Noted Allergy Reaction NO KNOWN DRUG ALLERGIES 07/24/2005 no latex allergy [Other] 07/24/2005 Date Reviewed: 11/05/2024 Reviewed by: Ana Paula Chauhan RN - Fully Assessed Reason for Visit: Radiotherapy On-treatment Visit [1722] Primary Visit Diagnosis:Hodgkin lymphoma, unspecified Hodgkin lymphoma type, unspecified body region (HCC) [C81.90] Prescriptions as of 11/18/2024 - atorvastatin (LIPITOR) 10 mg tablet Take 10 mg by mouth. - liothyronine (CYTOMEL) 5 mcg tablet Take 10 mcg by mouth. - dilTIAZem CD (CARDIZEM CD, CARTIA XT) 240 mg 24 hr capsule Take 240 mg by mouth. - apixaban (ELIQUIS) 5 mg tab(s) Take 5 mg by mouth. - insulin glargine (LANTUS) 100 unit/mL injection Inject subcutaneously. - metoprolol tartrate, short acting, (LOPRESSOR) 25 mg tablet Take 50 mg by mouth. - ondansetron orally disintegrating (ZOFRAN ODT) 4 mg disintegrating tablet Take 4 mg by mouth at bedtime as needed. - pantoprazole DR (PROTONIX) 40 mg tablet 40 mg. Problem List As Of Date: 11/05/2024 (None) Encounter Status:Closed by RG WINSTON on 11/17/24 [facility] CNOVon 10-29-2024 CNOV Office Visit (RADTSA ) NABEEL TRAN ([id number]) 1955 M Date Time Provider Department 10/29/24 10:00 AM RG WINSTON RADTSA During your visit today, we recorded the following information about you: Temperature Pulse Respiration Blood pressure 97.5 degrees 64/minute 16/minute 95/60 Weight 83.3 kg Rg Winston MD 11/10/2024 10:54 PM Signed Radiation Oncology - On Treatment Review (OTR) Note PATIENT NAME: Nabeel Tran PATIENT DIAGNOSIS: Mr. 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 He completed a total of 4 cycles of ABVD under the care of Dr. Donnelly at [facility] and repeat pet imaging after the third cycle on 09/08/2024 noted excellent metabolic response (Deauville 3). COURSE: Consolidative AREA TREATED: Right axilla/neck CURRENT DOSE: 1260 cGy in 7 fx PLANNED DOSE: 3600 cGy in 20 fx SUBJECTIVE: Tolerating RT well and reports no significant changes from last week and reports no pain or discomfort in the area of the axilla or neck and notes no skin irritation/breakdown or any new lumps or bumps. He has stable range of motion of the right upper extremity. He endorses stable energy appetite and hydration with stable weight. EXAM: KPS: 90 General Appearance: Alert and oriented. No acute distress. Radiation dermatitis: No IMAGING/LAB RESULTS: None Treatment chart checked: Yes Patient treatment site reviewed and verified:Yes Port films reviewed and current:Yes Medications started: None ASSESSMENT/PLAN: Clinically stable. Toxicity within expected parameters. Continue radiation treatment as planned. Rg Winston MD Allergies As of Date: 10/29/2024 Noted Allergy Reaction NO KNOWN DRUG ALLERGIES 07/24/2005 no latex allergy [Other] 07/24/2005 Date Reviewed: 10/21/2024 Reviewed by: Coty Chan RN - Fully Assessed Reason for Visit: Radiotherapy On-treatment Visit [1722] Primary Visit Diagnosis:Hodgkin lymphoma, unspecified Hodgkin lymphoma type, unspecified body region (HCC) [C81.90] Prescriptions as of 11/10/2024 - atorvastatin (LIPITOR) 10 mg tablet Take 10 mg by mouth. - liothyronine (CYTOMEL) 5 mcg tablet Take 10 mcg by mouth. - dilTIAZem CD (CARDIZEM CD, CARTIA XT) 240 mg 24 hr capsule Take 240 mg by mouth. - apixaban (ELIQUIS) 5 mg tab(s) Take 5 mg by mouth. - insulin glargine (LANTUS) 100 unit/mL injection Inject subcutaneously. - metoprolol tartrate, short acting, (LOPRESSOR) 25 mg tablet Take 50 mg by mouth. - ondansetron orally disintegrating (ZOFRAN ODT) 4 mg disintegrating tablet Take 4 mg by mouth at bedtime as needed. - pantoprazole DR (PROTONIX) 40 mg tablet 40 mg. Problem List As Of Date: 10/29/2024 (None) Encounter Status:Closed by RG WINSTON on 11/10/24 [facility] CNOVon 10-21-2024 CNOV Office Visit (RADTSA ) NABEEL TRAN ([id number]) 1955 M Date Time Provider Department 10/21/24 1:15 PM RG WINSTON During your visit today, we recorded the following information about you: Temperature Pulse Respiration Blood pressure 97.8 degrees 61/minute 18/minute 130/70 Weight 84.3 kg Rg Winston MD 11/03/2024 11:33 PM Signed Radiation Oncology - On Treatment Review (OTR) Note PATIENT NAME: Nabeel Tran PATIENT DIAGNOSIS: Mr. 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 He completed a total of 4 cycles of ABVD under the care of Dr. Donnelly at [facility] and repeat pet imaging after the third cycle on 09/08/2024 noted excellent metabolic response (Deauville 3). COURSE: Consolidative AREA TREATED: Right axilla/neck CURRENT DOSE: 180 cGy in 1 fx PLANNED DOSE: 3600 cGy in 20 fx SUBJECTIVE: Tolerated first fraction of XRT well and reports no significant changes for the time of simulation. Today he denies any pain or discomfort in the treatment area and reports no new lumps or bumps in the axilla and notes good range of motion of the left upper extremity. He endorses good energy appetite and hydration with stable weight. EXAM: KPS: 90 General Appearance: Alert and oriented. No acute distress. Radiation dermatitis: No IMAGING/LAB RESULTS: None Treatment chart checked: Yes Patient treatment site reviewed and verified:Yes Port films reviewed and current:Yes Medications started: None ASSESSMENT/PLAN: Clinically stable. No signs of toxicity. Continue radiation treatment as planned. We reviewed general precautions/instructions during radiation treatment to the axilla/neck as well as the potential acute toxicities during treatment and their time course. Discussed the importance of a well-balanced diet, hydration, and exercise/activity as tolerated through the course of treatment. Rg Winston MD Allergies As of Date: 10/21/2024 Noted Allergy Reaction NO KNOWN DRUG ALLERGIES 07/24/2005 no latex allergy [Other] 07/24/2005 Date Reviewed: 10/21/2024 Reviewed by: Coty Chan, RN - Fully Assessed Reason for Visit: Radiotherapy On-treatment Visit [1722] Primary Visit Diagnosis:Hodgkin lymphoma, unspecified Hodgkin lymphoma type, unspecified body region (HCC) [C81.90] Prescriptions as of 11/03/2024 - atorvastatin (LIPITOR) 10 mg tablet Take 10 mg by mouth. - liothyronine (CYTOMEL) 5 mcg tablet Take 10 mcg by mouth. - dilTIAZem CD (CARDIZEM CD, CARTIA XT) 240 mg 24 hr capsule Take 240 mg by mouth. - apixaban (ELIQUIS) 5 mg tab(s) Take 5 mg by mouth. - insulin glargine (LANTUS) 100 unit/mL injection Inject subcutaneously. - metoprolol tartrate, short acting, (LOPRESSOR) 25 mg tablet Take 50 mg by mouth. - ondansetron orally disintegrating (ZOFRAN ODT) 4 mg disintegrating tablet Take 4 mg by mouth at bedtime as needed. - pantoprazole DR (PROTONIX) 40 mg tablet 40 mg. Problem List As Of Date: 10/21/2024 (None) Encounter Status:Closed by RG WINSTON on 11/03/24 [facility] NABEEL TRAN ([id number]) 1955 M Date Time Provider Department 10/07/24 1:15 PM NURSE MAGALIE BENTLEY During your visit today, we recorded the following information about you: Allergies As of Date: 10/07/2024 Noted Allergy Reaction NO KNOWN DRUG ALLERGIES 07/24/2005 no latex allergy [Other] 07/24/2005 Date Reviewed: 09/26/2024 Reviewed by: Margo Schumacher RD - Fully Assessed Primary Visit Diagnosis:Hodgkin lymphoma, unspecified Hodgkin lymphoma type, unspecified body region (HCC) [C81.90] Prescriptions as of 10/08/2024 - atorvastatin (LIPITOR) 10 mg tablet Take 10 mg by mouth. - liothyronine (CYTOMEL) 5 mcg tablet Take 10 mcg by mouth. - dilTIAZem CD (CARDIZEM CD, CARTIA XT) 240 mg 24 hr capsule Take 240 mg by mouth. - apixaban (ELIQUIS) 5 mg tab(s) Take 5 mg by mouth. - insulin glargine (LANTUS) 100 unit/mL injection Inject subcutaneously. - metoprolol tartrate, short acting, (LOPRESSOR) 25 mg tablet Take 50 mg by mouth. - ondansetron orally disintegrating (ZOFRAN ODT) 4 mg disintegrating tablet Take 4 mg by mouth at bedtime as needed. - pantoprazole DR (PROTONIX) 40 mg tablet 40 mg. Problem List As Of Date: 10/07/2024 (None) Encounter Status:Closed by ANA PAULA CHAUHAN on 10/08/24 [facility] CNOVon 09-25-2024 CNOV Office Visit (RADTSA ) NABEEL TRAN ([id number]) 1955 M Date Time Provider Department 09/25/24 9:00 AM RG WINSTONTSA During your visit today, we recorded the following information about you: Temperature Pulse Respiration Blood pressure 96.8 degrees 62/minute 16/minute 110/63 Weight Height 85.4 kg 1.892 m Coty Chan, RN 10/20/2024 11:58 PM Signed Pacemaker/Defibrillator? No Previous Cancer(s)? No Previous Radiation? No Lupus/Scleroderma? No On body monitoring device? Yes, G7 device for glucose monitoring. Was notified of need to remove prior to simulation/treatment. Was also notified of need to do finger stick blood sugars throughout. and pt aware. Coty Chan, Rg Ferrer MD 10/21/2024 8:06 AM Addendum Radiation Oncology - New Patient/Consult Note PATIENT NAME: Nabeel Tran PATIENT REQUESTING PHYSICIAN: Dr. Sonia Donnelly DIAGNOSIS: Stage II, classical Hodgkin's Lymphoma arising from the right axilla/neck (bulky) PATIENT IDENTIFICATION: This patient was seen in the Department of Radiation Oncology at the [facility] with Rg Winston MD. He was accompanied today by his family. Final recommendations will be communicated back to the requesting physician by way of the shared medical record, or letter to requesting physician via US mail. HISTORY OF PRESENT ILLNESS: Mr. 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 Ultrasound at the time from 03/25/2024 described a large heterogenous predominantly hypoechoic masses and subsequent CT of the chest from 03/29/2024 further noted numerous enlarged lymph nodes in the right axilla concerning for lymphoma with the largest measuring 6 cm. Ultrasound-guided biopsy of the note from 04/11/2024 described malignancy consistent with atypical lymphoproliferative disorder after second review through [facility]. 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 PET/CT was obtained on 05/12/2024 describing multiple metabolically active right supraclavicular, right axillary and right sup pectoral lymph nodes consistent with lymphoma with no other evidence of disease above or below the diaphragm. The patient then completed a course of systemic therapy with Dr. Donnelly consisting of 3 cycles of ABVD followed by repeat PET scan on 09/08/2024 showing excellent metabolic response rated at Deauville 3. He then completed a fourth and final cycle of ABVD and is referred today to the radiation medicine clinic to have a discussion regarding the role of radiation therapy in the consolidative treatment of his Hodgkin's lymphoma. INTERVAL HISTORY: The patient notes that his axillary and neck disease was never painful and never involve the skin and began drinking with his systemic therapy. He does note an approximate 100 pound weight loss over the past 8 months. He tolerated systemic therapy fairly well but did note diarrhea headaches as well as stomach discomfort and fatigue. PAST MEDICAL HISTORY: PAST MEDICAL HISTORY Diagnosis Date Atrial fibrillation (HCC) Deaf, right Diabetes mellitus (HCC) Heart murmur Hodgkin's lymphoma (HCC) Other and unspecified disc disorder of unspecified region Intervertebral disc disorders PAST SURGICAL HISTORY: PAST SURGICAL HISTORY Procedure Laterality Date AUDITORY EVOKED POTENTIAL FOR RETROCOCHLEAR ASSESSMENT acoustic neuroma LAMINECTOMY W/O FFD 08/07 VERT SEG LUMBAR Laminectomy, lumbar TONSILLECTOMY PRIMARY/SECONDARY Tonsillectomy FAMILY HISTORY: FAMILY HISTORY Problem Relation Age of Onset Alcohol/Drug Father SOCIAL HISTORY: Mr. Tran is , has 2 children, and lives in the [facility]. 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 He denies tobacco or alcohol use. RADIATION HISTORY: The patient denies any history of therapeutic radiation. ALLERGIES: ALLERGIES Allergen Reactions No Known Drug Aller* No Latex Allergy [O* MEDICATIONS: Current Outpatient Medications: atorvastatin (LIPITOR) 10 mg tablet liothyronine (CYTOMEL) 5 mcg tablet dilTIAZem CD (CARDIZEM CD, CARTIA XT) 240 mg 24 hr capsule apixaban (ELIQUIS) 5 mg tab(s) insulin glargine (LANTUS) 100 unit/mL injection metoprolol tartrate, short acting, (LOPRESSOR) 25 mg tablet ondansetron orally disintegrating (ZOFRAN ODT) 4 mg disintegrating tablet pantoprazole DR (PROTONIX) 40 mg tablet PHYSICAL EXAMINATION: GENERAL: middle-aged gentleman the morning sitting in chair, in no acute distress. VITALS: BP 110/63 Pulse 62 Temp 96.8 Resp 16 Ht 6' 2.5 (1.89m) Wt 188 lb 4.4 oz (85.4kg) SpO2 98% BMI 23 (more content not included)... Normal [facility] Dieudonne 09-25-2024 MARICRUZ Telephone ([employer]) NABEEL TRAN ([id number]) 1955 M Date Time Provider Department 09/25/24 CATRACHITO RGFOX BENTLEY During your visit today, we recorded the following information about you: Coty Chan RN 09/25/2024 12:15 PM Addendum Rad Ed today Dietary Eval Schedule Simulation treating R Axilla and Neck with IV Contrast- plan for possible 5 point mask- 20 Fx Sim on 10/06 Consent is Signed *Pt does have onbody glucose monitor-- he and were instructed on need to remove and of need to do finger stick blood sugars* Plan start 10/20 BRANDAN Yin Jodi 09/26/2024 10:41 AM Signed Rad ed and Nutri scheduled Kathleen Werner RT(R) 10/01/2024 7:28 AM Signed Sim scheduled on 10/07/24 at 1:30pm PSS - Please schedule nurse visit at 1:15 AND notify pt of 1:00pm arrival time, no special instructions. Thanks! RT Jaylen(R)(T) Mady Durbin 10/01/2024 8:56 AM Signed Called and spoke to Nabeel's . She confirmed his appointment times for 10/07/24 with an arrival of 1:00 PM and no special instructions. A nurse visit was added to the schedule for 1:15PM Mady B PSS Allergies As of Date: 09/25/2024 Noted Allergy Reaction NO KNOWN DRUG ALLERGIES 07/24/2005 no latex allergy [Other] 07/24/2005 Date Reviewed: 10/08/2006 Reviewed by: Washington Estrada Ma Reason for Visit: Future Appointment [256] Cmt: Schedule Simulation Prescriptions as of 10/01/2024 - atorvastatin (LIPITOR) 10 mg tablet Take 10 mg by mouth. - liothyronine (CYTOMEL) 5 mcg tablet Take 10 mcg by mouth. - dilTIAZem CD (CARDIZEM CD, CARTIA XT) 240 mg 24 hr capsule Take 240 mg by mouth. - apixaban (ELIQUIS) 5 mg tab(s) Take 5 mg by mouth. - insulin glargine (LANTUS) 100 unit/mL injection Inject subcutaneously. - metoprolol tartrate, short acting, (LOPRESSOR) 25 mg tablet Take 50 mg by mouth. - ondansetron orally disintegrating (ZOFRAN ODT) 4 mg disintegrating tablet Take 4 mg by mouth at bedtime as needed. - pantoprazole DR (PROTONIX) 40 mg tablet 40 mg. Problem List As Of Date: 09/25/2024 (None) Encounter Status:Closed by MARJAN AVILA on 10/01/24 Normal [facility] Office Visiton 09-15-2024 Follow-up visit [id number] Allen Tran W 1955 [facility] 09/15/2024 [id number] STATON ELIAS Rosario Family History Problem Relation Age of Onset Coronary artery disease Mother Family Status - Relation Status Age at Mother Level of Service:45608 [place] OFFICE/OUTPATIENT ESTABLISHED MOD MDM 30 MIN Normal [facility] MLR HEMOGLOBIN A1Con 025 Glucose [Mass/Vol] 126 mg/dL [facility] HbA1c (Bld) [Mass fraction] 6 % 4.5 - 6.2 % [facility] Comment on above: ADA RECOMMENDED LIMI T 4.0 - 6.0 ADA THERAPEUTIC TARGET < 7.0 ACTION SUGGESTED > 7.0 CLINISYNC [facility] EMG 2 Extremitieson 07-10-20 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, motor predominant and severe Can not exclude radiculopathy [facility] NVC 9-10 Nerveson 07-10-2024 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, motor predominant and severe Can not exclude radiculopathy [facility] Office Visiton 06-19-2024 Follow-up visit [id number] Allen Tran W 1955 [facility] 06/19/2024 [id number] BENDER ELIAS Rosario Family History Problem Relation Age of Onset Coronary artery disease Mother Family Status - Relation Status Age at Mother Level of Service:63566 IA OFFICE/OUTPATIENT ESTABLISHED LOW MDM 20 MIN Normal [facility] Orders Onlyon 06-19-2024 Orders Only [id number] Allen Tran 1955 M Date Provider Department Center 06/19/2024 JOSE ALFREDO GARCIA Family History Problem Relation Age of Onset Coronary artery disease Mother Family Status - Relation Status Age at Mother Normal [facility] ISTAT XRay CREon 05-29-2024 ISTAT GFR > 60.0 Normal [facility] Comment on above: Result Comment: PERF ORMED BY: [place] [address] PATHOLOGIST NEUROLOGIST KASSI WATERS M.D. Performed By: #### I SCRE #### [address] MR head/brain wo/w conon MR head/brain wo/w con [facility] [address] [place] [address] MRI Report Signed Patient: Nabeel Tran MR#: [id number] : 1955 Acct:[id number] Age/Sex: 68 / M ADM Date: 05/29/24 Loc: Room: Type: [facility] Attending Dr: Sonia Donnelly MD Copies to: [...] Alexis Patel M.D.05/29/2024 1:38 PM Dictation Location: [place] [address] Transcribed By: [facility] 05/29/24 1335 Dictated By: Alexis Patel II, MD 05/29/24 1325 Signed By: 05/29/24 1338 Normal [facility] No Panel InformationOrdered By: Sonia Donnelly on 05-29-2024 Bedside Estimated GFR (eGFR) > 60.0 [facility] Whole blood creatinine measu rementOrdered By: Sonia Donnelly on 05-29-2024 Creatinine [Mass/Vol] 0.8 mg/dL Normal 0.6-1.3 [facility] Comment on above: ER/ESD physician is notified/shown all ISTAT results.Critical values may be confirmed by laboratory testing ifdeemed necessary by ER attending doctor. Result Comment: ER/E SD physician is notified/shown all ISTAT results. Critical values may be confirmed by laboratory testing if deemed necessary by ER attending doctor. Performed By: #### I SCRE #### [place] [id number] [facility] XR pre/post mri xrayon 05-29 XR pre/post mri xray [facility] [address] [place] [id number] MRI Report Signed Patient: Nabeel Tran MR#: [id number] : 1955 Acct:[id number] Age/Sex: 68 / M ADM Date: 05/29/24 Loc: MR Room: Type: [facility] Attending Dr: Sonia Donnelly MD Copies to: Sonia Donnelly MD Ordering Provider: Sonia Donnelly MD Date of Service: 05/29/24 MR/MR cervical spine wo/w con: C85.90, C85.94, C85.11 ([id number]) XR/XR pre/post mri xray: C85.90, C85.94, C85.11 [...] Alexis Patel M.D.05/29/2024 1:00 PM Dictation Location: [place] [address] Transcribed By: [facility] 05/29/24 1300 Dictated By: Alexis Patel II, MD 05/29/24 1254 Signed By: 05/29/24 1300 Normal [facility] SURGICAL PATHOLOGY REFERENCE LAB CONSULTon 05-05-2024 ADDENDUM 1: Normal [facility] Comment on above: Order Comment: Speci men Type: FORMALIN-FIXED PARAFFIN-EMBEDDED TISSUE SPECIMENOrdering Facility: [facility] Address: [place] [address] Result Comment: Repe at MUM1 immunostain does in fact stain the focal large atypical cells. No change in final diagnosis. ABO 05/14/2024 Addendum electronically signed by Lory Vick MD, PhD on 05/14/2024 at 4:02 PM Performed By: #### L [id number] ####[facility] LABCLIA [id number] [address] [place] CASE REPORT Normal [facility] Comment on above: Order Comment: Speci men Type: FORMALIN-FIXED PARAFFIN-EMBEDDED TISSUE SPECIMENOrdering Facility: [facility] Address: [address] [place], [place] [address] [place] [id number] Result Comment: Surg ical Pathology Report Case: [id number] Authorizing Provider: Kin Lauren MD Collected: 05/05/2024 04:52 PM Ordering Location: [facility] Received: 05/05/2024 04:52 PM [facility] Pathologist: Lory Vick MD, PhD Specimen: Slide(s), 18 SLIDES [id number] Performed By: #### L [id number] ####[facility] LABCLIA [id number] [address] [place] CLINICAL HISTORY CONSULT REQUESTED [facility] Comment on above: Order Comment: Speci men Type: FORMALIN-FIXED PARAFFIN-EMBEDDED TISSUE SPECIMENOrdering Facility: [facility] Address: [address] [place], [place] [address] [address] Performed By: #### L [id number] ####[facility] LABCLIA [id number] [address] [place] DIAGNOSIS COMMENT [facility] Comment on above: Order Comment: Speci men Type: FORMALIN-FIXED PARAFFIN-EMBEDDED TISSUE SPECIMENOrdering Facility: [facility] Address: [address] [place], [place] [address] [address] Result Comment: Per the provided report, flow cytometric analysis detected no significant immunophenotypic abnormalities on the lymphocytes, with a CD4:CD8 ratio 4.4. Overall, the morphologic and immunophenotypic findings described below are consistent with an atypical lymphoid proliferation predominantly composed of reactive changes with a single focus of large DW49-tyvcnxox lymphocytes. Morphologically and immunophenotypically, these large atypical cells are compatible with Hodgkin and Neto-Jude cells/variants. However, this tiny, focal involvement is unusual. If the patient has additional lymphadenopathy, biopsy of another site is recommended to definitely diagnose involvement by a Hodgkin lymphoma. Correlation with imaging studies is strongly recommended. This case was also reviewed by Dr. Mare Pierce ([facility] hematopathology section), who agrees with the above interpretation and final diagnosis. Thank you for sending this case in consultation. Please contact the Hematopathology Consult Service at [phone] for any questions or if additional follow-up information becomes available. Laboratory Developed Test (LDT) Disclaimer: Performance characteristics of immunohistochemical, immunofluorescent and chromogenic in-situ hybridization tests have been determined by the performing laboratory within [facility] Pathology and Laboratory Medicine Department ([facility], [facility], [facility], [facility], [facility], [facility], or [facility]) in a manner consistent with CLIA requirements. One or more of these tests have not been cleared or approved by the FDA. [facility] is regulated under CLIA as qualified to perform high-complexity testing. These tests are used for clinical purposes. They should not be regarded as investigational or for research. Positive and negative controls stain appropriately. Performed By: #### L [id number] ####[facility] LAB[facility] [id number] [place] [address] [place] FINAL DIAGNOSIS Normal [facility] Comment on above: Order Comment: Speci men Type: FORMALIN-FIXED PARAFFIN-EMBEDDED TISSUE SPECIMENOrdering Facility: [facility] Address: [address] [place] [address] Result Comment: Outs roberto slides ([id number]; 04/23/2024) from [facility], [place], [place]. A. Lymph node, right axillary, excisional biopsy: - Predominantly reactive lymphoid proliferation with a single focus of atypical ET20-buznafbg lymphocytes. - See comment. ABO 05/13/2024 Performed By: #### L [id number] ####[facility] LABCLIA [id number] [address] [place] FINAL PERFORMING LAB Normal [facility] Comment on above: Order Comment: Speci men Type: FORMALIN-FIXED PARAFFIN-EMBEDDED TISSUE SPECIMENOrdering Facility: [facility] Address: [address] [place] [id number] Result Comment: Diag nostic interpretation performed at: [facility], [address] [facility], Desk [place] [id number] CLIA# [id number] Yarder Puncher: Ramiro Degroot MD Performed By: #### L [id number] ####[facility] LABCLIA [id number] [facility] [id number] [place], [place] [id number] [place] MICROSCOPIC DESCRIPTION Normal [facility] Comment on above: Order Comment: Speci men Type: FORMALIN-FIXED PARAFFIN-EMBEDDED TISSUE SPECIMENOrdering Facility: [facility] Address: [place] [id number] Result Comment: H&E- stained sections demonstrate fibroadipose tissue and probable fragmented lymph node(s) involved by a lymphoid proliferation with vague nodularity. Some areas show clear primary and secondary follicles, while other areas are mostly involved by small mature lymphocytes, numerous plasma cells, histiocytes, and occasional larger lymphocytes compatible with immunoblasts. Multifocally, the fibroadipose tissue is infiltrated by small mature lymphocytes as well. Even more focally (<0.3 cm in length), there are increased, aggregated large atypical lymphocytes resembling Hodgkin and Neto-Jude cells/variants. Variable fibrosis is found within the specimen, but it does not form distinct nodules. No necrosis, granulomas, or diffuse sheets of large lymphocytes are identified. Immunohistochemical stains, performed at an outside institute, were reviewed. The focal large atypical lymphocytes are positive for PAX-5 (dim) and CD30 (diffuse), but negative for CD45, CD5, CD10, BCL6 and CD45. BCL2 cannot be interpreted on these large atypical cells due to loss of tissue in this particular focus. Background small B lymphocytes, scattered and present in residual follicles, are highlighted by CD20 and PAX-5. Background small T lymphocytes are positive for CD3, CD5, and BCL2. BCL6 and CD10 highlight germinal centers, which are appropriately negative for BCL2. CD23 highlights intact follicular dendritic cell meshworks associated with the B-cell follicles. AE1/AE3 is negative. Immunohistochemical and in situ hybridization stains were performed at [facility] on the requested block A2. The large atypical cells are diffusely positive for CD15 with an elevated Ki-67 proliferation index, but negative for ALK-1, granzyme B, and cyclin D1. CD21 highlights intact follicular dendritic cell meshworks associated the background follicles. Chromogenic in situ hybridization for EBV-encoded RNA (MARYCARMEN-CISH) is negative (controls appropriate). Ki-67 proliferation index is also physiologically increased in the germinal centers. MUM1 highlights background plasma cells in most of the fragments, but demonstrates failed staining in a subset of the tissue pieces (precluding evaluation in the focus of large atypical lymphocytes, repeat pending). Dual ultrasensitive chromogenic in situ hybridization (CISH) for kappa and lambda light chain-encoding mRNA highlights numerous polytypic plasma cells and polytypic B cells (including within the fatty areas), and is negative in the focal area with atypical large lymphocytes. Performed By: #### L [id number] ####[facility] [id number] [address] OF [facility] Ambulatory Visit Summaryon 0 04-30-2024 Ambulatory Visit [...] ELLIS, Moody Aranda Where: [facility] [address] [place] [address] [place] [address]- Medications What How Much When Instructions Unchanged [...] for choosing us for your care. Annabelle Krishnamurthy [facility] General Surgery Office/Clini c Noteon 04-30-2024 General Surgery Office/Clinic Note General Surgery Office/Clinic Note Chief Complaint post operative follow up HPI Staff 7 day post operative follow up post incisional biopsy right axilla adenopathy completed while inpatient at [facility]. Denies soreness, bleeding or drainage. History [...] 04/30/24 14:51 EDT Robert 04-23-2024 L Specimen: [id number] eceived: 04/23/24 Status: MERNA Montemayor Num: [id number] Spec Type: Surgical Subm Dr: Jassi Alegria MD FACS Tissues: A Lymph Node - Biopsy (Needle or Incisional) (R AXILLARY LYMPH NODE BX) Procedures: CD45/2, HE/4, Gross/Micro L4, AE1-AE3, BCL-2, BCL-6, CD10, CD20, CD23, CD3, CD30/2, CD5, PAX5/2 Age/ Patient Sex Location Account Attending Physician Nabeel Tran 68/M LABELL [id number] Jassi Alegria MD FACS SPEC NUM: [id number] RECD: 04/23/24 STATUS: MERNA MONTEMAYOR NUM: [id number] RANJITH: 04/23/24-[address]: Jassi Alegria MD FACS ENTERED: 04/23/[address] [facility] [address]: SPEC TYPE: Surgical DEPT: LUANA MOYER ENTERED BY: [id number] RECV BY: [id number] ORDERED: CD45/2, HE/4, Gross/Micro L4, AE1-AE3, BCL-2, BCL-6, CD10, CD20, CD23, CD3, CD30/2, CD5, PAX5/2 ORDERED: CD45/2, HE/4, Gross/Micro L4, AE1-AE3, BCL-2, BCL-6, CD10, CD20, CD23, CD3, CD30/2, CD5, PAX5/2, USS/7 Supplemental Report Addendum 3 Entered: 05/15/24-1014 Supplemental for addended consultation report from [facility] Addendum -Repeat MUM1 immunostain does in fact stain the focal large atypical cells -No change in final diagnosis Addendum Signed (signature on file) Chin-Gama Lauren MD 05/15/24 1014 -- Addendum 2 Entered: 05/14/24-1084 Supplemental for findings of consultation report from [facility]: -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 -- Specimen: [id number] Received: 04/23/24-1321 Status: MERNA Montemayor Num: [id number] Spec Type: Surgical Subm Dr: Jassi Alegria MD FACS Tissues: A Lymph Node - Biopsy (Needle or Incisional) (R AXILLARY LYMPH NODE BX) Procedures: CD45/2, HE/4, Gross/Micro L4, AE1-AE3, BCL-2, BCL-6, CD10, CD20, CD23, CD3, CD30/2, CD5, PAX5/2 -- Patient: Nabeel Tran Hector [id number] (Continued) -- Specimen: [id number] Received: 04/23/24 (Continued) Supplemental Report (Continued) Signed (signature on file) Trinity Lauren MD 05/01/24 165 -- Specimen: [id number] Received: 04/23/24 Status: MERNA Montemayor Num: [id number] Spec Type: Surgical Subm Dr: Jassi Alegria MD FACS Tissues: A Lymph Node - Biopsy (Needle or Incisional) (R AXILLARY LYMPH NODE BX) Procedures: CD45/2, HE/4, Gross/Micro L4, AE1-AE3, BCL-2, BCL-6, CD10, CD20, CD23, CD3, CD30/2, CD5, PAX5/2 -- Patient: Nabeel Tran [id number] (Continued) -- Specimen: [id number] Received: 04/23/241322 (Continued) Supplemental Report (Continued) lymphocytes -See comment Addendum Signed (signature on file) Kin-Gama Lauren MD 05/14/24 1437 -- Addendum 1 Entered: 05/07/24 Supplemental for findings of Flow Cytometry report from [facility] -No significant lymphoid immunophenotypic abnormalities detected Addendum Signed (signature on file)Sandra_Steven Lauren MD 05/07/24 0944 -- Pathological Diagnosis [...] content not included)... Normal [facility] SURGICAL PATHOLOGY REFERENCE LAB CONSULTon 04-18-2024 CASE REPORT Normal [facility] Comment on above: Order Comment: Speci men Type: FORMALIN-FIXED PARAFFIN-EMBEDDED TISSUE SPECIMENOrdering Facility: [facility] Address: [address] [place] [phone] Result Comment: Surg [facility] Pathology Report Case: [id number] Authorizing Provider: Kin Lauren MD Collected: 04/18/2024 08:55 AM Ordering Location: [facility] Received: 04/18/2024 08:55 AM [facility] Pathologist: Crystal Mesa MD, PhD Specimen: Slide(s), 2 SLIDES [id number] Performed By: #### L [id number] ####[facility] [id number] [place] [address] [place] CLINICAL HISTORY CONSULT REQUESTED Normal [facility] Comment on above: Order Comment: Speci men Type: FORMALIN-FIXED PARAFFIN-EMBEDDED TISSUE SPECIMENOrdering Facility: [facility] Address: [address] [place], [place] [phone] Performed By: #### L [id number] ####[facility] [id number] [place] [id number] [place] OF [facility] DIAGNOSIS COMMENT Normal [facility] Comment on above: Order Comment: Speci men Type: FORMALIN-FIXED PARAFFIN-EMBEDDED TISSUE SPECIMENOrdering Facility: [facility] Address: [address] [place], [place] [phone] Result Comment: Than k you for sharing this case in consultation. Per report, flow cytometry was sent on this specimen but is not yet available. The specimen is cut through on an initial deeper level section received. Greater sampling is recommended if feasible, if it is clinically indicated to further characterize this process. Please do not hesitate to contact the Hematopathology Consult Service at [phone] for any questions or if additional follow-up information becomes available. Performed By: #### L [id number] ####[facility] [id number] [address] FINAL DIAGNOSIS Normal [facility] Comment on above: Order Comment: Speci men Type: FORMALIN-FIXED PARAFFIN-EMBEDDED TISSUE SPECIMENOrdering Facility: [facility] Address: [address] [place], [place] [phone] Result Comment: A. Tristian espinozaside materials received from [facility], [place], [place] (External ID [id number], 04/14/24) Right axillary lymph node, core biopsy: -Extremely limited specimen compatible with malignancy, see comment. [facility] 18, 2024 Performed By: #### L [id number] ####[facility] [id number] [place] [id number] [facility] [place] FINAL PERFORMING LAB Normal [facility] Comment on above: Order Comment: Speci men Type: FORMALIN-FIXED PARAFFIN-EMBEDDED TISSUE SPECIMENOrdering Facility: [facility] Address: [address] [place], [place] [id number] Result Comment: Diag nostic interpretation performed at: [facility], [facility] [place] [address] CLIA# [id number] Yarder Puncher: Ramiro Degroot MD Performed By: #### L [id number] ####[facility] [id number] [address] MICROSCOPIC DESCRIPTION Histologic sections demonstrate multiple scant fragments of soft tissue with architecture effaced by a lymphohistiocytic infiltrate with large, atypical forms with complex nuclear features, prominent nucleoli, multinucleation and increased eosinophilic cytoplasm. The large atypical forms show Hodgkin-like features, but the differential would include other B, T and non-hematolymphoid malignancies based on the limited morphology alone. Unfortunately, the material is exhausted to further characterize this limited sample. Normal [facility] Comment on above: Order Comment: Speci men Type: FORMALIN-FIXED PARAFFIN-EMBEDDED TISSUE SPECIMENOrdering Facility: [facility] Address: [address] [place] [address] Performed By: #### L [id number] ####[facility] [id number] [address] [place] Robert 04-11-2024 L Specimen: [id number] eceived: 04/14/24 Status: MERNA Montemayor Num: [id number] Spec Type: Surgical Subm Dr: Nabeel Strange MD Tissues: A Lymph Node - Biopsy (Needle or Incisional) (R AXILLA LYMPH NODE) B Gross Only (LYMPH NODE) Procedures: HE/2, Gross/Micro L4, Level 1 Gross Age/ Patient Sex Location Account Attending Physician Nabeel Tran 68/M LABELL [id number] Nabeel Strange MD SPEC NUM: [id number] RECD: 04/14/24 STATUS: MERNA MONTEMAYOR NUM: [id number] RANJITH: 04/11/24- SUBM DR: Nabeel Strange MD ENTERED: 04/14/[address] [facility] [address]: Gregg Pierce SPEC TYPE: Surgical DEPT: LUANA MOYER ENTERED BY: [id number] RECV BY: [id number] ORDERED: HE/2, Gross/Micro L4, Level 1 Gross ORDERED: HE/2, Gross/Micro L4, Level 1 Gross Supplemental Report Addendum 2 Entered: 04/21/24-1306 Supplemental for findings of consultation report from [facility]: A, -Extremity limited specimen compatible with malignancy, see comment Addendum Signed (signature on file) Kin-Gama Lauren MD 04/21/24 130 -- Addendum 1 Entered: 04/18/245079 Supplemental for findings of flow cytometry report from [facility]: -Tests canceled -This test is canceled due to poor sample quality / poor viability -- Specimen: [id number] Received: 04/14/24 Status: [facility] Montemayor Num: [id number] Spec Type: Surgical Subm Dr: Nabeel Strange MD Tissues: A Lymph Node - Biopsy (Needle or Incisional) (R AXILLA LYMPH NODE) B Gross Only (LYMPH NODE) Procedures: HE/2, Gross/Micro L4, Level 1 Gross -- Patient: Nabeel Tran [id number] (Continued) -- Specimen: [id number] Received: 04/14/24 (Continued) Supplemental Report (Continued) Signed (signature on file) Trinity Lauren MD 04/17/24 1127 -- Specimen: [id number] Received: 04/14/24 Status: MERNA Montemayor Num: [id number] Spec Type: Surgical Subm Dr: Nabeel Strange MD Tissues: A Lymph Node - Biopsy (Needle or Incisional) (R AXILLA LYMPH NODE) B Gross Only (LYMPH NODE) Procedures: HE/2, Gross/Micro L4, Level 1 Gross -- Patient: Nabeel Tran [id number] (Continued) -- Specimen: [id number] Received: 04/14/24-1045 (Continued) Supplemental Report (Continued) Addendum Signed (signature on file) Kin-Gama Lauren MD 04/18/24 1734 -- Pathological Diagnosis [...] 0.1 cm. The specimen is submitted in [facility] for flow cytometry. The specimen is sent to an outside facility. DM -- Specimen: [id number] Received: 04/14/24 Status: MERNA Montemayor Num: [id number] Spec Type: Surgical Subm Dr: Nabeel Strange MD Tissues: A Lymph Node - Biopsy (Needle or Incisio (more content not included)... Normal [facility] Office Visiton 03-28-2024 Follow-up visit [id number] Allen Tran W 1955 [facility] Provider Department Center 03/28/2024 JEROD BANKS ELIAS Rosario Family History Problem Relation Age of Onset Coronary artery disease Mother Family Status - Relation Status Age at Mother Level of Service:80226 [place] OFFICE/OUTPATIENT ESTABLISHED MOD MDM 30 MIN Normal [facility] Office Visiton 02-25-2024 Follow-up visit [id number] Allen Tran W 1955 M Date Provider Department Center 02/25/2024 JEROD BANKS ELIAS Rosario Family History Problem Relation Age of Onset Coronary artery disease Mother Family Status - Relation Status Age at Mother Level of Service:97754 [place] OFFICE/OUTPATIENT NEW MODERATE MDM 45 MINUTES Normal [facility] Insurance Correspondenceon 0 01-30-2024 Insurance Correspondence [id number]#1.00TIFF Normal [facility] Consent for Procedure/Surger yon 01-22-2024 Consent for Procedure/Surgery [id number]#1.00TIFF Normal [facility] Physician Referralon 024 Physician Referral [id number]#1.00TIFF Normal [facility] Screenson 01-22-2024 Screens [id number]#1.00TIFF Normal [facility] Ambulatory Visit [...] Where: [facility] [address], [place] [address]- Medications What When Instructions Unchanged amlodipine (amLODIPine [...] Follow these instructions at home: ? Take jply-wow-kwegdkm and prescription medicines only as told by [...] 08-27-2021 Insulin 19.2 uIU/mL Normal 2.6-24.9 [facility] Comment on above: Performed By: #### I NSULIN #### [facility] [address] [place] [address] Dr. Forrest Lauren CBC AUTO DIFFon 08-26-2021 BASO # 0.1 103/ul Normal 0.0-0.1 [facility] Comment on above: Performed By: #### P SASC #### [facility] [address] [place] [address] Dr. Forrest Lauren Basophils/100 WBC (Bld) 0.8 % Normal 0.2-2.0 [facility] Comment on above: Performed By: #### P SASC #### [facility] [address] [place] [address] Dr. Forrest Lauren EO # 0.4 103/ul Normal 0.0-0.7 [facility] Comment on above: Performed By: #### P SASC #### [facility] [address] [place] [address] Dr. Forrest Lauren Eosinophils/100 WBC (Bld) 4.8 % Normal 0.9-7.0 [facility] Comment on above: Performed By: #### P SASC #### [facility] [address] [place] [address] Dr. Forrest Lauren Erythrocyte distribution width (RBC) [Ratio] 12.7 % Normal 11.0-15.0 [facility] Comment on above: Performed By: #### P SASC #### [facility] [address] [place] [address] Dr. Forrest Lauren Hematocrit (Bld) [Volume fraction] 48.3 % Normal 42.0-54.0 [facility] Comment on above: Performed By: #### P SASC #### [facility] [address] [place] [address] Dr. Forrest Lauren Hemoglobin (Bld) [Mass/Vol] 16.4 g/dL Normal 14.0-18.0 [facility] Comment on above: Performed By: #### P SASC #### [facility] [address] [place] [address] Dr. Forrest Lauren IG # 0.05 10e3/ul Critically high 0.00-0.03 [facility] Comment on above: Performed By: #### P SASC #### [facility] [address] [place] [address] Dr. Forrest Lauren IG % 0.6 % Critically high 0.0-0.5 [facility] Comment on above: Performed By: #### P SASC #### [facility] [address] [place] [address] Dr. Forrest Lauren LYMPH # 2.0 103/ul Normal 1.2-3.8 [facility] Comment on above: Performed By: #### P SASC #### [facility] [address] [place] [address] Dr. Forrest Lauren Lymphocytes/100 WBC (Bld) 22.6 % Normal 20.5-60.0 [facility] Comment on above: Performed By: #### P SASC #### [facility] [address] [place] [address] Dr. Forrest Lauren MANUAL DIFF REQ NO Normal [facility] Comment on above: Performed By: #### P SASC #### [facility] [address] [place] [address] Dr. Forrest Lauren MCH (RBC) [Entitic mass] 29.8 pg Normal 25.9-34.0 [facility] Comment on above: Performed By: #### P SASC #### [facility] [address] [place] [address] Dr. Forrest Lauren MCHC (RBC) [Mass/Vol] 34.0 g/dL Normal 29.9-35.2 [facility] Comment on above: Performed By: #### P SASC #### [facility] [address] [place] [address] Dr. Forrest Lauren MCV (RBC) [Entitic vol] 87.8 fL Normal 80.0-94.0 [facility] Comment on above: Performed By: #### P SASC #### [facility] [address] [place] [address] Dr. Forrest Lauren MONO # 0.7 103/ul Normal 0.3-0.8 [facility] Comment on above: Performed By: #### P SASC #### [facility] [address] [place] [address] Dr. Forrest Lauren Monocytes/100 WBC (Bld) 8.0 % Normal 1.7-12.0 [facility] Comment on above: Performed By: #### P SASC #### [facility] [address] [place] [address] Dr. Forrest Lauren NEUT # 5.7 103/ul Normal 1.4-6.5 [facility] Comment on above: Performed By: #### P SASC #### [facility] [address] [place] [address] Dr. Forrest Lauren Neutrophils/100 WBC (Bld) 63.2 % Normal 43.0-75.[address] [facility] Comment on above: Performed By: #### P SASC #### [facility] [address] [place] [address] Dr. Forrest Lauren Platelet mean volume (Bld) [Entitic vol] 9.7 fL Normal 9.5-13.5 [facility] Comment on above: Performed By: #### P SASC #### [facility] [address] [place] [address] Dr. Forrest Lauren PLT 242 103/ul Normal 150-[address] [facility] Comment on above: Performed By: #### P SASC #### [facility] [address] [place] [address] Dr. Forrest Lauren RBC 5.50 106/ul Normal 4.70-6.10 [facility] Comment on above: Performed By: #### P SASC #### [facility] [address] [place] [address] Dr. Forrest Lauren WBC 9.0 103/ul Normal 4.0-11.0 [facility] Comment on above: Performed By: #### P SASC #### [facility] [address] [place] [address] Dr. Forrest Lauren GLYCOHEMOGLOBIN A1Con 2021 ADA RECOMMENDATION ADA THERAPEUTIC TARG ET 6.0 - 7.0 ACTION SUGGESTED > 7.0 Normal [facility] Comment on above: Performed By: #### A 1C #### [facility] [address] [place] [address] Dr. Forrest Lauren Glucose [Mass/Vol] 194 mg/dL Normal [facility] Comment on above: Performed By: #### A 1C #### [facility] [address] [place] [address] Dr. Forrest Lauren HbA1c (Bld) [Mass fraction] 8.4 % Critically high <=6.0 [facility] Comment on above: Performed By: #### A 1C #### [facility] [address] [place] [address] Dr. Forrest Lauren LIPID PROFILEon 08-26-2021 CHOL-HDL RATIO NORM SEE BELOW Normal [facility] Comment on above: Result Comment: 3.3 - 4.4 LOW RISK 4.4 - 7.1 AVERAGE RISK 7.1 - 11.0 MODERATE RISK >11.0 HIGH RISK Performed By: #### P SASC #### [facility] [address] [place] [address] Dr. Forrest Lauren Cholesterol [Mass/Vol] 117 mg/dL Normal <=200 [facility] Comment on above: Performed By: #### P SASC #### [facility] [address] [place] [address] [address] Forrest Lauren Cholesterol in HDL [Mass/Vol] 43 mg/dL Normal [facility] Comment on above: Performed By: #### P SASC #### [facility] [address] [place] [address] [address] Forrest Lauren Cholesterol in LDL [Mass/Vol] 45.6 mg/dL Normal [facility] Comment on above: Performed By: #### P SASC #### [facility] [address] [place] [address] [address] Forrest Lauren Cholesterol.total/C holesterol in HDL [Mass ratio] 2.7 {ratio} Normal [facility] Comment on above: Performed By: #### P SASC #### [facility] [address] [place] [address] [address] Forrest Lauren HDL NORMAL > or = 60 mg/dl - LO W CARDIOVASCULAR RISK <40 mg/dl - HIGH CARDIOVASCULAR RISK Normal [facility] Comment on above: Performed By: #### P SASC #### [facility] [address] [place] [place] [address] [address] Forrest Lauren LDL CALC NORMAL SEE BELOW Normal [facility] Comment on above: Result Comment: <100 mg/dl OPTIMAL 100 - 129 mg/dl NEAR OR ABOVE OPTIMAL 130 - 159 mg/dl BORDERLINE HIGH 160 - 189 mg/dl HIGH >190 mg/dl VERY HIGH Performed By: #### P SASC #### [facility] [address] [place] [place] [address] [address] Forrest Lauren Triglyceride [Mass/Vol] 142 mg/dL Normal <=[address] [facility] Comment on above: Performed By: #### P SASC #### [facility] [address] [place] [address] [address] Forrest Lauren VLDL CALC 28.4 mg/dL Normal [facility] Comment on above: Performed By: #### P SASC #### [facility] [address] [place] [address] [address] Forrest Lauren PROF 14(COMP METB)on 022 Albumin [Mass/Vol] 4.1 g/dL Normal 3.5-5.[address] [facility] Comment on above: Performed By: #### P SASC #### [facility] [address] [place] [address] [address] Forrest Lauren Albumin/Globulin [Mass ratio] 1.2 {ratio} Normal [facility] Comment on above: Performed By: #### P SASC #### [facility] [address] [place] [address] [address] Forrest Lauren ALP [Catalytic activity/Vol] 82 U/L Normal 38-[address] [facility] Comment on above: Performed By: #### P SASC #### [facility] [address] [place] [address] [address] Forrest Lauren ALT [Catalytic activity/Vol] 38 U/L Normal 21-72 [facility] Comment on above: Performed By: #### P SASC #### [facility] [address] [place] [address] Dr. Forrest Lauren Anion gap [Moles/Vol] 12.7 mmol/L Normal [facility] Comment on above: Performed By: #### P SASC #### [facility] [address] [place] [address] Dr. Forrest Lauren AST [Catalytic activity/Vol] 18 U/L Normal 17-59 [facility] Comment on above: Performed By: #### P SASC #### [facility] [address] [place] [address] Dr. Forrest Lauren Bilirubin [Mass/Vol] 1.2 mg/dL Normal 0.2-1.[address] [facility] Comment on above: Performed By: #### P SASC #### [facility] [address] [place] [place] [address] [address] Forrest Lauren Calcium [Mass/Vol] 9.7 mg/dL Normal 8.4-10.[address] [facility] Comment on above: Performed By: #### P SASC #### [facility] [address] [place] [place] [address] [address] Forrest Lauren Chloride [Moles/Vol] 102 mmol/L Normal 98-[address] [facility] Comment on above: Performed By: #### P SASC #### [facility] [address] [place] [place] [address] [address] Forrest Lauren CO2 [Moles/Vol] 30.6 mmol/L Critically high 22.0-30.0 [facility] Comment on above: Performed By: #### P SASC #### [facility] [address] [place] [address] [address] Forrest Lauren Creatinine [Mass/Vol] 1.09 mg/dL Normal 0.66-1.25 [facility] Comment on above: Performed By: #### P SASC #### [facility] Laboratory [address] [address] [address] Forrest Lauren EGFR-AF IVORIAN >60 Normal >=60 [facility] Comment on above: Performed By: #### P SASC #### [facility] [address] [address] [address] Forrest Lauren EGFR-NON AF IVORIAN >60 Normal >=60 [facility] Comment on above: Performed By: #### P SASC #### [facility] [address] [address] [address] Forrest Lauren Globulin (S) [Mass/Vol] 3.4 g/dL Normal [facility] Comment on above: Performed By: #### P SASC #### [facility] [address] [address] [address] Forrest Lauren Glucose [Mass/Vol] 238 mg/dL Critically high 74-106 [facility] Comment on above: Performed By: #### P SASC #### [facility] [address] [address] [address] Forrest Lauren Potassium [Moles/Vol] 4.3 mmol/L Normal 3.4-5.0 [facility] Comment on above: Performed By: #### P SASC #### [facility] [address] [address] [address] Forrest Lauren Protein [Mass/Vol] 7.5 g/dL Normal 6.1-8.2 [facility] Comment on above: Performed By: #### P SASC #### [facility] [address] [address] [address] Forrest Lauren Sodium [Moles/Vol] 141 mmol/L Normal 137-[address] [facility] Comment on above: Performed By: #### P SASC #### [facility] [address] [place] [address] Dr. Forrest Lauren Urea nitrogen [Mass/Vol] 20.0 mg/dL Normal 9.0-20.0 [facility] Comment on above: Performed By: #### P SASC #### [facility] [address] [place] [address] Dr. Forrest Lauren Urea nitrogen/Creatinine [Mass ratio] 18.3 mg/mg Normal [facility] Comment on above: Performed By: #### P SASC #### [facility] [address] [place] [address] Dr. Forrest Lauren URIC ACID SERUMon 08-26-2021 Urate [Mass/Vol] 4.8 mg/dL Normal 3.5-8.5 [facility] Comment on above: Performed By: #### P SASC #### [facility] [address] [place] [address] Dr. Forrest Lauren [facility] Sample Type Test performed using RT-PCR from a nasopharyngeal collected specimen. Normal [facility] Comment on above: Performed By: #### P SASC #### [facility] [address] [place] [address] Dr. Forrest Lauren SARS-CoV-2 (COVID-19) RNA MERA+probe Ql (Unsp spec) Detected Abnormal NOT DETECTED [facility] Comment on above: Result Comment: This test is not yet approved or cleared by the [place] FDA. When there are no FDA-approved or cleared tests available, and other criteria are met, FDA can make tests available under an emergency access mechanism called an Emergency Use Authorization (EUA). The EUA for this test is supported by the [place] of Health and Human Service's (HHS's) declaration [...] Performed By: #### P SASC #### [facility] [address] [place] [address] Dr. Forrest Lauren POINT OF CARE GLUCOSEon 05-0 Glucose [Mass/Vol] 255 mg/dL Critically high 74-106 [facility] Comment on above: Performed By: #### P OCGLUC #### [facility] [address] [place] [address] Matias Evelyn XR CHEST 1 Von 12-07-2020 [...] WALKER Date: 2020-12-06 22:[address] [facility] INSULINon 10-02-2020 Insulin 16.9 uIU/mL Normal 2.6-24.9 [facility] Comment on above: Performed By: #### P SASC #### [facility] [address] [place] [address] Dr. Forrest Lauren CBC AUTO DIFFon 10-01-2020 BASO # 0.1 103/ul Normal 0.0-0.1 [facility] Comment on above: Performed By: #### C BC #### [facility] [address] [place] [address] Matias Rivas Basophils/100 WBC (Bld) 0.6 % Normal 0.2-2.0 [facility] Comment on above: Performed By: #### C BC #### [facility] [address] [place] [address] Matias Evelyn EO # 0.4 103/ul Normal 0.0-0.7 [facility] Comment on above: Performed By: #### C BC #### [facility] [address] [place], [place] [id number] Matias Evelyn Eosinophils/100 WBC (Bld) 4.2 % Normal 0.9-7.0 [facility] Comment on above: Performed By: #### C BC #### [facility] [address] [place] [address] Matias Evelyn Erythrocyte distribution width (RBC) [Ratio] 13.1 % Normal 11.0-15.0 [facility] Comment on above: Performed By: #### C BC #### [facility] [address] [place] [address] Matias Evelyn Hematocrit (Bld) [Volume fraction] 50.2 % Normal 42.0-54.0 [facility] Comment on above: Performed By: #### C BC #### [facility] [address] [place] [address] Matias Evelyn Hemoglobin (Bld) [Mass/Vol] 16.6 g/dL Normal 14.0-18.0 [facility] Comment on above: Performed By: #### C BC #### [facility] [address] [place] [address] Matias Evelyn IG # 0.05 10e3/ul Critically high 0.00-0.03 [facility] Comment on above: Performed By: #### C BC #### [facility] [address] [place] [address] Matias Evelyn IG % 0.6 % Critically high 0.0-0.5 [facility] Comment on above: Performed By: #### C BC #### [facility] [address] [place] [address] Matias Evelyn LYMPH # 1.9 103/ul Normal 1.2-3.[address] [facility] Comment on above: Performed By: #### C BC #### [facility] [address] [place] [address] Matias Evelyn Lymphocytes/100 WBC (Bld) 22.2 % Normal 20.5-60.0 [facility] Comment on above: Performed By: #### C BC #### [facility] [address] [place], [place] [id number] Matias Evelyn MANUAL DIFF REQ NO Normal [facility] Comment on above: Performed By: #### C BC #### [facility] [address] [place], [place] [id number] Matiaswali Rivas MCH (RBC) [Entitic mass] 29.4 pg Normal 25.9-34.[address] [facility] Comment on above: Performed By: #### C BC #### [facility] [address] [place], [place] [id number] Matiaswali Rivas MCHC (RBC) [Mass/Vol] 33.1 g/dL Normal 29.9-35.[address] [facility] Comment on above: Performed By: #### C BC #### [facility] [address] [place], [place] [address] Matiaswali Rodasen MCV (RBC) [Entitic vol] 88.8 fL Normal 80.0-94.[address] [facility] Comment on above: Performed By: #### C BC #### [facility] [address] [place], [place] [address] Matias Evelyn MONO # 0.7 103/ul Normal 0.3-0.8 [facility] Comment on above: Performed By: #### C BC #### [facility] [address] [place], [place] [address] Matias Evelyn Monocytes/100 WBC (Bld) 7.7 % Normal 1.7-12.[address] [facility] Comment on above: Performed By: #### C BC #### [facility] [address] [place], [place] [address] Matias Evelyn NEUT # 5.7 103/ul Normal 1.4-6.[address] [facility] Comment on above: Performed By: #### C BC #### [facility] [address] [place], [place] [address] Matias Evelyn Neutrophils/100 WBC (Bld) 64.7 % Normal 43.0-75.[address] [facility] Comment on above: Performed By: #### C BC #### [facility] [address] [id number] Matias Rivas Platelet mean volume (Bld) [Entitic vol] 10.4 fL Normal 9.5-13.5 [facility] Comment on above: Performed By: #### C BC #### [facility] [address] [id number] Matias Rivas PLT 243 103/ul Normal 150-[address] [facility] Comment on above: Performed By: #### C BC #### [facility] [address] [address] Matias Rivas RBC 5.65 106/ul Normal 4.70-6.[address] [facility] Comment on above: Performed By: #### C BC #### [facility] [address] [place] [address] Matias Rivas WBC 8.7 103/ul Normal 4.0-11.0 [facility] Comment on above: Performed By: #### C BC #### [facility] [address] [place], [place] [address] Matias Rivas FREE THYROXINE INDEX T7on FTI 2.11 Normal [facility] Comment on above: Performed By: #### U TARIK, CMP, T7, PSASC, TSH, LIPID #### [facility] [address] [place], [place] [address] Matias Rivas T3U 34.0 % Normal 23.5-40.[address] [facility] Comment on above: Performed By: #### U TARIK, CMP, T7, PSASC, TSH, LIPID #### [facility] [address] [place], [place] [address] Matias Rivas T4 [Mass/Vol] 6.20 ug/dL Normal 5.53-11.00 [facility] Comment on above: Performed By: #### U TARIK, CMP, T7, PSASC, TSH, LIPID #### [facility] [address] [place], [place] [address] Matias Rivas GLYCOHEMOGLOBIN A1Con 2020 ADA RECOMMENDATION ADA THERAPEUTIC TARG ET 6.0 - 7.0 ACTION SUGGESTED > 7.0 Normal [facility] Comment on above: Performed By: #### A 1C #### [facility] [address] [address] Matias Rivas Glucose [Mass/Vol] 266 mg/dL Normal [facility] Comment on above: Performed By: #### A 1C #### [facility] [address] [address] Matias Rivas HbA1c (Bld) [Mass fraction] 10.9 % Critically high <=6.0 [facility] Comment on above: Performed By: #### A 1C #### [facility] [address] [address] Matias Rivas LIPID PROFILEon 10-01-2020 CHOL-HDL RATIO NORM SEE BELOW Normal [facility] Comment on above: Result Comment: 3.3 - 4.4 LOW RISK 4.4 - 7.1 AVERAGE RISK 7.1 - 11.0 MODERATE RISK >11.0 HIGH RISK Performed By: #### P SASC #### [facility] [address] [place] [address] Dr. Forrest Laruen Cholesterol [Mass/Vol] 110 mg/dL Normal <=200 [facility] Comment on above: Performed By: #### P SASC #### [facility] [address] [place] [address] Dr. Forrest Lauren Cholesterol in HDL [Mass/Vol] 36 mg/dL Normal [facility] Comment on above: Performed By: #### P SASC #### [facility] [address] [address] [address] Forrest Lauren Cholesterol in LDL [Mass/Vol] 36.2 mg/dL Normal [facility] Comment on above: Performed By: #### P SASC #### [facility] [address] [address] [address] Forrest Lauren Cholesterol.total/C holesterol in HDL [Mass ratio] 3.1 {ratio} Normal [facility] Comment on above: Performed By: #### P SASC #### [facility] [address] [place] [address] Dr. Forrest Lauren HDL NORMAL > or = 60 mg/dl - LO W CARDIOVASCULAR RISK <40 mg/dl - HIGH CARDIOVASCULAR RISK Normal [facility] Comment on above: Performed By: #### P SASC #### [facility] [address] [address] [address] Forrest Lauren LDL CALC NORMAL SEE BELOW Normal [facility] Comment on above: Result Comment: <100 mg/dl OPTIMAL 100 - 129 mg/dl NEAR OR ABOVE OPTIMAL 130 - 159 mg/dl BORDERLINE HIGH 160 - 189 mg/dl HIGH >190 mg/dl VERY HIGH Performed By: #### P SASC #### [facility] [address] [place] [address] Dr. Forrest Lauren Triglyceride [Mass/Vol] 189 mg/dL Critically high <=[address] [facility] Comment on above: Performed By: #### P SASC #### [facility] [address] [place] [address] Dr. Forrest Lauren VLDL CALC 37.8 mg/dL Normal [facility] Comment on above: Performed By: #### P SASC #### [facility] [address] [address] [address] Forrest Lauren PROF 14(COMP METB)on 021 Albumin [Mass/Vol] 4.1 g/dL Normal 3.5-5.0 [facility] Comment on above: Performed By: #### U TARIK, CMP, T7, PSASC, TSH, LIPID #### [facility] [address] [place] [address] Matias Evelyn Albumin/Globulin [Mass ratio] 1.2 {ratio} Normal [facility] Comment on above: Performed By: #### U TARIK, CMP, T7, PSASC, TSH, LIPID #### [facility] [address] [address] Matias Evelyn ALP [Catalytic activity/Vol] 80 U/L Normal 38-[address] [facility] Comment on above: Performed By: #### U ATRIK, CMP, T7, PSASC, TSH, LIPID #### [facility] [address] [address] Matias Evelyn ALT [Catalytic activity/Vol] 42 U/L Normal 21-[address] [facility] Comment on above: Performed By: #### U TARIK, CMP, T7, PSASC, TSH, LIPID #### [facility] [address] [address] Matias Evelyn Anion gap [Moles/Vol] 12.3 mmol/L Normal [facility] Comment on above: Performed By: #### U TARIK, CMP, T7, PSASC, TSH, LIPID #### [facility] [address] [address] Matias Evelyn AST [Catalytic activity/Vol] 24 U/L Normal 17-[address] [facility] Comment on above: Performed By: #### U TARIK, CMP, T7, PSASC, TSH, LIPID #### [facility] [address] [place] [address] Matias Evelyn Bilirubin [Mass/Vol] 1.3 mg/dL Normal 0.2-1.[address] [facility] Comment on above: Performed By: #### U TARIK, CMP, T7, PSASC, TSH, LIPID #### [facility] [address] [address] Matias Evelyn Calcium [Mass/Vol] 9.3 mg/dL Normal 8.4-10.[address] [facility] Comment on above: Performed By: #### U TARIK, CMP, T7, PSASC, TSH, LIPID #### [facility] [address] [place] [address] Matias Evelyn Chloride [Moles/Vol] 103 mmol/L Normal 98-[address] [facility] Comment on above: Performed By: #### U TARIK, CMP, T7, PSASC, TSH, LIPID #### [facility] [address] [place] [address] Matias Evelyn CO2 [Moles/Vol] 30.0 mmol/L Normal 22.0-30.[address] [facility] Comment on above: Performed By: #### U TARIK, CMP, T7, PSASC, TSH, LIPID #### [facility] [address] [place] [address] Matias Evelyn Creatinine [Mass/Vol] 1.20 mg/dL Normal 0.66-1.[address] [facility] Comment on above: Performed By: #### U TARIK, CMP, T7, PSASC, TSH, LIPID #### [facility] [address] [address] Matias Evelyn EGFR-AF IVORIAN >60 Normal >=60 [facility] Comment on above: Performed By: #### U TARIK, CMP, T7, PSASC, TSH, LIPID #### [facility] [address] [address] Matias Evelyn EGFR-NON AF IVORIAN >60 Normal >=60 [facility] Comment on above: Performed By: #### U TARIK, CMP, T7, PSASC, TSH, LIPID #### [facility] [address] [address] Matias Evelyn Globulin (S) [Mass/Vol] 3.5 g/dL Normal [facility] Comment on above: Performed By: #### U TARIK, CMP, T7, PSASC, TSH, LIPID #### [facility] [address] [address] Matias Evelyn Glucose [Mass/Vol] 269 mg/dL Critically high 74-106 [facility] Comment on above: Performed By: #### U TARIK, CMP, T7, PSASC, TSH, LIPID #### [facility] [address] [address] Matias Evelyn Potassium [Moles/Vol] 4.3 mmol/L Normal 3.4-5.0 [facility] Comment on above: Performed By: #### U TARIK, CMP, T7, PSASC, TSH, LIPID #### [facility] [address] [address] Matias Evelyn Protein [Mass/Vol] 7.6 g/dL Normal 6.1-8.[address] [facility] Comment on above: Performed By: #### U TARIK, CMP, T7, PSASC, TSH, LIPID #### [facility] [address] [place] [address] Matias Evelyn Sodium [Moles/Vol] 141 mmol/L Normal 137-145 [facility] Comment on above: Performed By: #### U TARIK, CMP, T7, PSASC, TSH, LIPID #### [facility] [address] [address] Matias Rivas Urea nitrogen [Mass/Vol] 17.0 mg/dL Normal 9.0-20.0 [facility] Comment on above: Performed By: #### U TARIK, CMP, T7, PSASC, TSH, LIPID #### [facility] [address] [id number] Matias Rivas Urea nitrogen/Creatinine [Mass ratio] 14.2 mg/mg Normal [facility] Comment on above: Performed By: #### U TARIK, CMP, T7, PSASC, TSH, LIPID #### [facility] [address] [address] Matias Rivas TSHon 10-01-2020 TSH 1.574 uIU/mL Normal 0.470-4.68 0 [facility] Comment on above: Performed By: #### P SASC #### [facility] [address] [address] [address] Forrest Lauren TSH RANGE SEE BELOW Normal [facility] Comment on above: Result Comment: <0.3 4 UIU/ml HYPERTHYROID 0.34-5.60 UIU/ml EUTHYROID >5.60 UIU/ml HYPOTHYROID Performed By: #### P SASC #### [facility] [address] [address] [address] Forrest Lauren URIC ACID SERUMon 10-01-2020 Urate [Mass/Vol] 4.8 mg/dL Normal 3.5-8.5 [facility] Comment on above: Performed By: #### P SASC #### [facility] [address] [place] [address] Dr. Forrest Lauren Cardiovascular Lab Reporton 08-03-2017 Cardiovascular Lab Report [facility] Patient Name: [facility] [place] MR #: [id number] Physician: Jerod Miller M.D.Medicine Service Date: 2017Division of Birthdate: 7Cardiology Room #: CC[facility]ult [facility] Fax Cardiovascular Laboratory ReportINDICATION: Nabeel Tran is [...] the right internal jugular vein and a 6-Sami x 11cm sheath was placed. A 6-Sami Griffith catheter was used for right heartcatheterization with measurement of pressures and calculation of cardiacoutput using the estimated Luke method. Griffith catheter was removed.Using ultrasound guidance and micropuncture technique, access was obtainedin the left radial artery and a 6-Sami x 11 cm Hydrophilic sheath wasadvanced. Verapamil [...] 08/02/2017/02:42 P/Jerod Staton M.D.Date Trans: 08/03/2017 11:29 [id number]: Neville Mata D.O. [address] [place] [address] Normal [facility] Vital Signs Date Time Vital Sign Value Performing Clinician Jose fairchild 12-18-2024 10:31-0400 Body mass index (BMI) [Ratio] 23.51 kg/m2 Rg Winston MD Work Phone: [facility] 12-18-2024 10:31-0400 Body weight 84.2 kg Rg Winston MD Work Phone: [facility] 12-18-2024 10:31-0400 Diastolic blood pressure 65 mm[Hg] Rg Winston MD Work Phone: [facility] 12-18-2024 10:31-0400 Heart rate 59 /min Rg Winston MD Work Phone: [facility] 12-18-2024 10:31-0400 Respiratory rate 18 /min Rg Winston MD Work Phone: [facility] 12-18-2024 10:31-0400 SaO2% (BldA) [Mass fraction] 98 % Rg Winston MD Work Phone: [facility] 12-18-2024 10:31-0400 Systolic blood pressure 113 mm[Hg] Rg Winston MD Work Phone: [facility] 11-13-2024 10:00-0400 Body mass index (BMI) [Ratio] 22.98 kg/m2 Rg Winston MD Work Phone: [facility] 11-13-2024 10:00-0400 Body temperature 97.3 [degF] Rg Winston MD Work Phone: [facility] 11-13-2024 10:00-0400 Body weight 82.3 kg Rg Winston MD Work Phone: [facility] 11-13-2024 10:00-0400 Diastolic blood pressure 87 mm[Hg] Rg Winston MD Work Phone: [facility] 11-13-2024 10:00-0400 Heart rate 66 /min Rg Winston MD Work Phone: [facility] 11-13-2024 10:00-0400 Respiratory rate 16 /min Rg Winston MD Work Phone: [facility] 11-13-2024 10:00-0400 SaO2% (BldA) [Mass fraction] 99 % Rg Winston MD Work Phone: [facility] 11-13-2024 10:00-0400 Systolic blood pressure 121 mm[Hg] Rg Winston MD Work Phone: [facility] 11-05-2024 09:59-0400 Body mass index (BMI) [Ratio] 23.07 kg/m2 Rg Winston MD Work Phone: [facility] 11-05-2024 09:59-0400 Body temperature 97.9 [degF] Rg Winston MD Work Phone: [facility] 11-05-2024 09:59-0400 Body weight 82.6 kg Rg Winston MD Work Phone: [facility] 11-05-2024 09:59-0400 Diastolic blood pressure 69 mm[Hg] Rg Winston MD Work Phone: [facility] 11-05-2024 09:59-0400 Heart rate 65 /min Rg Winston MD Work Phone: [facility] 11-05-2024 09:59-0400 Respiratory rate 16 /min Rg Winston MD Work Phone: [facility] 11-05-2024 09:59-0400 SaO2% (BldA) [Mass fraction] 97 % Rg Winston MD Work Phone: [facility] 11-05-2024 09:59-0400 Systolic blood pressure 121 mm[Hg] Rg Winston MD Work Phone: [facility] 10-29-2024 10:23-0400 Body mass index (BMI) [Ratio] 23.26 kg/m2 Rg Winston MD Work Phone: [facility] 10-29-2024 10:23-0400 Body temperature 97.5 [degF] Rg Winston MD Work Phone: [facility] 10-29-2024 10:23-0400 Body weight 83.3 kg Rg Winston MD Work Phone: [facility] 10-29-2024 10:23-0400 Diastolic blood pressure 60 mm[Hg] Rg Winston MD Work Phone: [facility] 10-29-2024 10:23-0400 Heart rate 64 /min Rg Winston MD Work Phone: [facility] 10-29-2024 10:23-0400 Respiratory rate 16 /min Rg Winston MD Work Phone: [facility] 10-29-2024 10:23-0400 SaO2% (BldA) [Mass fraction] 99 % Rg Winston MD Work Phone: [facility] 10-29-2024 10:23-0400 Systolic blood pressure 95 mm[Hg] Rg Winston MD Work Phone: [facility] 10-21-2024 13:45-0400 Body mass index (BMI) [Ratio] 23.54 kg/m2 Rg Winston MD Work Phone: [facility] 10-21-2024 13:45-0400 Body temperature 97.81 [degF] Rg Winston MD Work Phone: [facility] 10-21-2024 13:45-0400 Body weight 84.3 kg Rg Winston MD Work Phone: [facility] 10-21-2024 13:45-0400 Diastolic blood pressure 70 mm[Hg] Rg iWnston MD Work Phone: [facility] 10-21-2024 13:45-0400 Heart rate 61 /min Rg Winston MD Work Phone: [facility] 10-21-2024 13:45-0400 Respiratory rate 18 /min Rg Winston MD Work Phone: [facility] 10-21-2024 13:45-0400 SaO2% (BldA) [Mass fraction] 95 % Rg Winston MD Work Phone: [facility] 10-21-2024 13:45-0400 Systolic blood pressure 130 mm[Hg] Rg Winston MD Work Phone: [facility] 09-25-2024 09:12-0500 Body height 189.2 cm Rg Winston MD Work Phone: [facility] 09-25-2024 09:12-0500 Body mass index (BMI) [Ratio] 23.85 kg/m2 Rg Winston MD Work Phone: [facility] 09-25-2024 09:12-0500 Body temperature 96.8 [degF] Rg Winston MD Work Phone: [facility] 09-25-2024 09:12-0500 Body weight 85.4 kg Rg Winston MD Work Phone: [facility] 09-25-2024 09:12-0500 Diastolic blood pressure 63 mm[Hg] Rg Winston MD Work Phone: [facility] 09-25-2024 09:12-0500 Heart rate 62 /min Rg Winston MD Work Phone: [facility] 09-25-2024 09:12-0500 Respiratory rate 16 /min Rg Winston MD Work Phone: [facility] 09-25-2024 09:12-0500 SaO2% (BldA) [Mass fraction] 98 % Rg Winston MD Work Phone: [facility] 09-25-2024 09:12-0500 Systolic blood pressure 110 mm[Hg] Rg Winston MD Work Phone: [facility] 08-07-2024 10:05-0500 Body mass index (BMI) [Ratio] 23.57 kg/m2 Christopher Deepa DO Work Phone: [facility] 08-07-2024 10:05-0500 Body weight 83.28 kg Christopher Deepa DO Work Phone: [facility] 08-07-2024 10:05-0500 Diastolic blood pressure 62 mm[Hg] Christopher Deepa DO Work Phone: [facility] 08-07-2024 10:05-0500 Heart rate 74 /min Christopher Deepa DO Work Phone: [facility] 08-07-2024 10:05-0500 SaO2% (BldA) [Mass fraction] 96 % Christopher Deepa DO Work Phone: [facility] 08-07-2024 10:05-0500 Systolic blood pressure 90 mm[Hg] Christopher Deepa DO Work Phone: [facility] 07-29-2024 09:12-0500 Body height 188 cm Rehab Flaco MD Work Phone: [facility] 07-29-2024 09:12-0500 Body mass index (BMI) [Ratio] 22.7 kg/m2 Regis Ibarra MD Work Phone: [facility] 07-29-2024 09:12-0500 Body temperature 97.3 [degF] Regis Ibarra MD Work Phone: [facility] 07-29-2024 09:12-0500 Body weight 80.2 kg Regis Ibarra MD Work Phone: [facility] 06-17-2024 12:25-0500 Body height 188 cm Favianopher Deepa DO Work Phone: [facility] 06-17-2024 12:25-0500 Body mass index (BMI) [Ratio] 20.29 kg/m2 Christopher Deepa DO Work Phone: [facility] 06-17-2024 12:25-0500 Body weight 71.67 kg Christopher Deepa DO Work Phone: [facility] 06-17-2024 12:25-0500 Diastolic blood pressure 75 mm[Hg] Christopher Deepa DO Work Phone: [facility] 06-17-2024 12:25-0500 Heart rate 98 /min Christopher Deepa DO Work Phone: [facility] 06-17-2024 12:25-0500 SaO2% (BldA) [Mass fraction] 93 % Christopher Deepa DO Work Phone: [facility] 06-17-2024 12:25-0500 Systolic blood pressure 118 mm[Hg] Christopher Deepa DO Work Phone: [facility] 06-03-2024 09:54-0400 Diastolic blood pressure 68 mm[Hg] Jassi ALEGRIA [facility] [place] 06-03-2024 09:54-0400 Heart rate 105 /min Jassi ALEGRIA [facility] [place] 06-03-2024 09:54-0400 Respiratory rate 16 /min Jassi YANCEYL [facility] 06-03-2024 09:54-0400 Systolic blood pressure 103 mm[Hg] Jassi BCL [facility] 05-29-2024 06:42-0400 Body height 190.5 cm DO [employer] Work Phone: [facility] 05-29-2024 06:42-0400 Body weight 78.47 kg DO [employer] Work Phone: [facility] 01-21-2024 11:44-0400 Blood Pressure Location [facility] 01-21-2024 11:44-0400 Diastolic blood pressure 72 mm[Hg] [facility] 01-21-2024 11:44-0400 Heart rate 70 /min Moody [facility] 01-21-2024 11:44-0400 Respiratory rate 16 /min [facility] 01-21-2024 11:44-0400 Systolic blood pressure 108 mm[Hg] Moody POP [facility] Encounters Encounter Date Encounter Type Care Provider Facility Start: 12-18-2024 End: 12-18-2024 Patient encounter procedure Rg Winston MD Work Phone: Radiation Oncology Comment on above: Hodgkin lymphoma, un specified Hodgkin lymphoma type, unspecified body region (HCC) (Primary Dx) Start: 12-18-2024 End: 12-18-2024 ambulatory RG CATRACHITO Facility:[facility] Start: 12-02-2024 End: 12-11-2024 Telephone encounter Rg Winston MD Work Phone: Radiation Oncology Start: 11-17-2024 End: 11-17-2024 ambulatory RG CATRACHITO Facility:[facility] Start: 11-14-2024 End: 11-14-[address] Work Phone: Nutrition Therapy Start: 11-14-2024 End: 11-14-2024 Nutrition therapy Margo Schumacher RD Work Phone: Nutrition Therapy Comment on above: Nutrition Telephone (No answer/) Start: 11-14-2024 End: 11-14-2024 ambulatory RG CATRACHITO Facility:[facility] Start: 11-13-2024 End: 11-13-2024 Patient encounter procedure Rg Winston MD Work Phone: Radiation Oncology Comment on above: Hodgkin lymphoma, un specified Hodgkin lymphoma type, unspecified body region (HCC) (Primary Dx) Start: 11-13-2024 End: 11-13-2024 ambulatory RG CATRACHITO Facility:[facility] Start: 11-12-2024 End: 11-12-2024 ambulatory RG CATRACHITO Facility:[facility] Start: 11-11-2024 End: 11-11-2024 ambulatory RG CATRACHITO Facility:[facility] Start: 11-10-2024 End: 11-10-2024 ambulatory RG CATRACHITO Facility:[facility] Start: 11-07-2024 End: 11-07-2024 ambulatory RG CATRACHITO Facility:[facility] Start: 11-06-2024 End: 11-06-2024 ambulatory RG CATRACHITO Facility:[facility] Start: 11-05-2024 End: 11-05-2024 Patient encounter procedure Rg Winston MD Work Phone: Radiation Oncology Comment on above: Hodgkin lymphoma, un specified Hodgkin lymphoma type, unspecified body region (HCC) (Primary Dx) Start: 11-05-2024 End: 11-05-2024 ambulatory RG CATRACHITO Facility:[facility] Start: 11-04-2024 End: 11-04-2024 ambulatory RG CATRACHITO Facility:[facility] Start: 11-03-2024 End: 11-03-2024 ambulatory RG CATRACHITO Facility:[facility] Start: 10-31-2024 End: 10-31-2024 ambulatory RG CATRACHITO Facility:[facility] Start: 10-30-2024 End: 10-30-2024 ambulatory RG CATRACHITO Facility:[facility] Start: 10-29-2024 End: 10-29-2024 Patient encounter procedure Rg Winston MD Work Phone: Radiation Oncology Comment on above: Hodgkin lymphoma, un specified Hodgkin lymphoma type, unspecified body region (HCC) (Primary Dx) Start: 10-29-2024 End: 10-29-2024 ambulatory RG CATRACHITO Facility:[facility] Start: 10-28-2024 End: 10-28-2024 ambulatory RG CATRACHITO Facility:[facility] Start: 10-27-2024 End: 10-27-2024 ambulatory RG CATRACHITO Facility:[facility] Start: 10-24-2024 End: 10-24-2024 ambulatory RG CATRACHITO Facility:[facility] Start: 10-23-2024 End: 10-23-2024 ambulatory RG CATRACHITO Facility:[facility] Start: 10-22-2024 End: 10-22-2024 ambulatory RG CATRACHITO Facility:[facility] Start: 10-21-2024 End: 10-21-2024 ambulatory RG CATRACHITO Facility:[facility] Start: 10-21-2024 End: 10-21-2024 Patient encounter procedure Rg Winston MD Work Phone: Radiation Oncology Comment on above: Hodgkin lymphoma, un specified Hodgkin lymphoma type, unspecified body region (HCC) (Primary Dx) Start: 10-08-2024 End: 10-08-2024 Patient encounter procedure [facility] Provider [facility] Start: 10-07-2024 End: 10-21-2024 Patient encounter procedure Rg Winston MD Work Phone: Radiation Oncology Start: 10-07-2024 End: 10-21-2024 Radiation Oncology Note Rg Winston MD Work Phone: Radiation Oncology Comment on above: Simulation Note Treatment Planning Start: 10-07-2024 End: 10-07-2024 ambulatory RG WINSTON Facility:[facility] Start: 10-07-2024 End: 10-07-2024 Nursing evaluation of patient and report Nurse Magalie Buckley Work Phone: Radiation Oncology Comment on above: Hodgkin lymphoma, un specified Hodgkin lymphoma type, unspecified body region (HCC) (Primary Dx) Start: 09-26-2024 End: 09-26-[address] Work Phone: Nutrition Therapy Start: 09-26-2024 End: 09-26-2024 Nutrition therapy Margo Schumacher RD Work Phone: Nutrition Therapy Comment on above: Nutrition Telephone Start: 09-25-2024 End: 10-01-2024 Telephone encounter Rg Winston MD Work Phone: Radiation Oncology Comment on above: Future Appointment ( Schedule Simulation) Start: 09-25-2024 End: 09-26-2024 ambulatory Coty Chan RN Radiation Oncology Comment on above: Patient Education Start: 09-25-2024 End: 09-25-2024 Patient encounter procedure Rg Winston MD Work Phone: Radiation Oncology Comment on above: Hodgkin lymphoma, un specified Hodgkin lymphoma type, unspecified body region (HCC) (Primary Dx) Start: 09-23-2024 End: 09-23-2024 Telephone encounter lCeve Quinn PT Work Phone: [facility] Comment on above: Check PT status Start: 09-19-2024 End: 09-19-2024 Clinical Support Pilar HATHAWAY Work Phone: [facility] Comment on above: Sensorineural hearin g loss (SNHL) of both ears (Primary Dx) Start: 09-15-2024 End: 09-15-2024 ambulatory [facility] Start: 09-08-2024 End: 09-08-2024 Telephone encounter Regis Ibarra MD Work Phone: [facility] Start: 09-01-2024 End: 09-01-2024 Bamboo flowsheet Cleve Quinn PT Work Phone: [facility] Start: 09-01-2024 End: 09-01-2024 Bamboo flowsheet Cleve Quinn PT Work Phone: [facility] Start: 09-01-2024 End: 09-01-2024 ambulatory Cleve Quinn PT Work Phone: [facility] Comment on above: Polyneuropathy (Prim benoit Dx); Poor balance; Weakness of both lower extremities Start: 08-22-2024 End: 08-22-2024 Bamboo flowsheet Aureaigor Sybley EUCLID OPERATOR [facility] Start: 08-22-2024 End: 08-22-2024 Bamboo flowsheet Aurea Kelbley EUCLID OPERATOR [facility] Start: 08-22-2024 End: 08-22-2024 ambulatory Aureaigor Sybley EUCLID OPERATOR [facility] Comment on above: Polyneuropathy (Prim benoit Dx); Poor balance; Weakness of both lower extremities Start: 08-20-2024 End: 08-20-2024 ambulatory Cleve Quinn PT Work Phone: [facility] Comment on above: Polyneuropathy (Prim benoit Dx); Poor balance; Weakness of both lower extremities Start: 08-20-2024 End: 08-20-2024 Bamboo flowsheet lCeve Quinn PT Work Phone: [facility] Start: 08-20-2024 End: 08-20-2024 Bamboo flowsheet Cleve Quinn PT Work Phone: [facility] Start: 08-15-2024 End: 08-15-2024 Telephone encounter Regis Ibarra MD Work Phone: [facility] Start: 08-13-2024 End: 08-13-2024 Telephone encounter Regis Ibarra MD Work Phone: [facility] Comment on above: Need office notes fa xed Start: 08-12-2024 End: 08-12-2024 Clinisync Result Encounter Christopher Deepa DO Work Phone: [facility] External Department Unsolicited Start: 08-12-2024 End: 08-12-2024 Clinisync Result Encounter Christopher Deepa DO Work Phone: [facility] Unsolicited Start: 08-12-2024 End: 08-12-2024 Telephone encounter Regis Ibarra MD Work Phone: [facility] Start: 08-07-2024 End: 08-07-2024 Bamboo flowsheet Christopher Deepa DO Work Phone: [facility] Start: 08-07-2024 End: 08-07-2024 Bamboo flowsheet Christopher Deepa DO Work Phone: [facility] Start: 08-07-2024 End: 08-07-2024 Office outpatient visit 25 minutes Christopher Deepa DO Work Phone: [facility] Comment on above: Lymphoma, unspecifie d body region, unspecified lymphoma type (CMS/HCC) (Primary Dx); Malnutrition, unspecified type (CMS/HCC); Polyneuropathy Start: 08-07-2024 End: 08-07-2024 ambulatory CHRISTOPHER DEEPA Not Available Start: 07-29-2024 End: 07-29-2024 Office outpatient new 45 minutes Regis Ibarra MD Work Phone: [facility] Comment on above: Sensorineural hearin g loss, asymmetrical (Primary Dx); Vestibular schwannoma (CMS-HCC); Hodgkin lymphoma, unspecified Hodgkin lymphoma type, unspecified body region (CMS-HCC) Start: 07-10-2024 End: 07-10-2024 Bamboo flowsheet Christopher Deepa DO Work Phone: [facility] Start: 07-10-2024 End: 07-10-2024 Bamboo flowsheet Shelby Arenas DO Work Phone: [facility] Start: 07-10-2024 End: 07-10-2024 Patient encounter procedure Shelby Arenas DO Work Phone: [facility] Comment on above: Weakness (Primary Dx ); Polyneuropathy Start: 07-10-2024 End: 07-10-2024 ambulatory SHELBY ARENAS Not Available Start: 07-02-2024 End: 07-02-2024 Patient encounter procedure Lillian Nagel AUD Work Phone: [facility] Comment on above: Sensorineural hearin g loss, bilateral (Primary Dx) Start: 07-02-2024 End: 07-02-2024 ambulatory LILLIAN NAGEL Not Available Start: 07-02-2024 End: 07-02-2024 Bamboo flowsheet Lillian Nagel AUD Work Phone: [facility] Start: 07-02-2024 End: 07-02-2024 Bamboo flowsheet Lillian Nagel AUD Work Phone: [facility] Start: 06-27-2024 End: 06-27-2024 Bamboo flowsheet Lillian Nagel AUD Work Phone: [facility] Start: 06-27-2024 End: 06-27-2024 Bamboo flowsheet Lillian Nagel AUD Work Phone: [facility] Start: 06-27-2024 End: 06-27-2024 Patient encounter procedure Lillian Nagel AUD Work Phone: [facility] Comment on above: Sensorineural hearin g loss, bilateral (Primary Dx) Start: 06-27-2024 End: 06-27-2024 ambulatory LILLIAN NAGEL Not Available Start: 06-19-2024 End: 06-19-2024 ambulatory [facility] Start: 06-17-2024 End: 06-17-2024 Bamboo flowsheet Shelby Arenas DO Work Phone: [facility] Start: 06-17-2024 End: 06-17-2024 Bamboo flowsheet Shelby Arenas DO Work Phone: [facility] Start: 06-17-2024 End: 06-17-2024 Office outpatient new 60 minutes Shelby Arenas DO Work Phone: [facility] Comment on above: Malnutrition, unspec ified type (CMS/HCC) (Primary Dx); Weakness; History of benign schwannoma; Lymphoma, unspecified body region, unspecified lymphoma type (CMS/HCC) Start: 06-17-2024 End: 06-17-2024 ambulatory MEDARDOEDWARD DEEPA Not Available Start: 06-16-2024 End: 06-16-2024 Patient encounter procedure Kayce Hathaway [facility] HATHAWAY Comment on above: 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) Start: 06-16-2024 End: 06-16-2024 ambulatory CLEVE QUINN Not Available Start: 06-09-2024 End: 06-09-2024 ambulatory Moody POP Facility:[facility] Start: 06-09-2024 End: 06-09-2024 Patient encounter procedure Moody POP [facility] Start: 06-03-2024 End: 06-04-2024 ambulatory Jassi ALEGRIA Facility:CD:[id number] Start: 06-03-2024 End: 06-03-2024 Patient encounter procedure Jassi ALEGRIA [facility] [place] Start: 05-29-2024 End: 05-29-2024 Patient encounter procedure DO González Moon Work Phone: [facility] [place] Work Phone: Start: 05-29-2024 End: 05-29-2024 ambulatory DO González Kuns Work Phone: [facility] Work Phone: Start: 05-26-2024 End: [...] End: 04-30-2024 ambulatory Jassi R NILL Facility:[facility] Start: 04-30-2024 End: 04-30-2024 Patient encounter procedure Jassi R NILL [facility] Start: 04-28-2024 ambulatory Jassi NILL Facility:[facility] Start: 04-23-2024 End: 04-23-2024 ambulatory DO González Kuns Work Phone: [facility] Work Phone: Start: 04-23-2024 End: 04-23-2024 Departed Referred DO González Kuns Work Phone: [facility] Start: 04-23-2024 ambulatory Jassi NILL Facility:[facility] Start: 04-22-2024 End: 04-23-2024 ambulatory Jassi R NILL Facility:CD:[id number] Start: 04-21-2024 Non-patient / Non-visit DO Felipa tt Kuns Work Phone: [facility] Work Phone: Start: 04-11-2024 End: 04-11-2024 ambulatory DO González Moon Work Phone: [facility] Work Phone: Start: 04-11-2024 End: 04-11-2024 Departed Referred DO González Harriss Work Phone: [facility] Start: 03-28-2024 End: 03-28-2024 ambulatory [facility] Start: 02-25-2024 End: 02-25-2024 ambulatory [facility] Start: 02-11-2024 End: 02-11-2024 ambulatory Moody POP Facility:CD:[id number] Start: 01-21-2024 End: 01-21-2024 ambulatory Moody POP Facility:[facility] Start: 01-21-2024 End: 01-21-2024 Patient encounter procedure Moody POP [facility] Start: 09-12-2023 ambulatory Jassi ALEGRIA Facility:[facility] [place] Start: 08-26-2021 End: 08-26-2021 ambulatory AILIN BAKER Facility:[facility] Start: 02-23-2021 ambulatory AILIN BAKER Facility:[facility] Start: 12-06-2020 End: 12-07-2020 ambulatory ILAN TODD Facility:[facility] Start: 10-07-2020 Encounter for genera l adult medical examination without abnormal findings AILIN BAKER [facility] Start: 10-01-2020 End: 10-02-2020 ambulatory AILIN BAKER Facility:[facility] Start: 10-01-2020 End: 10-02-2020 Encounter for general adult medical examination without abnormal findings AILNI BAKER Facility:[facility] Start: 2017 End: 08-03-2017 Ambulatory PROVIDER UNKNOWN Facility:[facility] Start: 07-24-2017 End: 07-25-2017 Ambulatory DEFAULT PHYSICIAN Facility:[facility] Start: 07-19-2017 End: 07-20-2017 Ambulatory DEFAULT PHYSICIAN Facility:[facility] Start: 06-18-2017 End: 06-19-2017 Ambulatory DEFAULT PHYSICIAN Facility:[facility] Procedures Date Procedure Procedure Detail Performing Clinician Start: 08-12-2024 MLR HEMOGLOBIN A1C Chri yohan Arenas DO Work Phone: Start: 07-10-2024 End: 07-10-2024 Needle emg ea extremty w/paraspinl area complete Faviantorito Arenas DO Work Phone: Start: 06-04-2024 Insertion of implant able venous access port Moody POP Start: 05-29-2024 XR pre/post mri xray DO Gonzálezisaias Moon Work Phone: Start: 05-29-2024 MRI of cervical spin e with contrast DO González Moon Work Phone: Start: 05-29-2024 MRI of head DO González call Work Phone: Start: 04-23-2024 Incisional biopsy Sudhir ALEGRIA Start: 08-26-2021 PSA screening AILIN KHAN Comment on above: Performed By: #### P SASC #### [facility] [address] [place] [address] Dr. Forrest Lauren Start: 10-01-2020 PSA screening AILIN KHAN Comment on above: Performed By: #### U TARIK, CMP, T7, PSASC, TSH, LIPID #### [facility] [address] [id number] Matias Rivas Start: 08-06-2013 Colonoscopy Moody ASHER Start: 08-06-2004 Neoplasm of brain (disorder) Moody POP Back structure, excl uding neck (body structure) Moody POP Removal of acoustic neuroma Jassi ALEGRIA Spinal arthrodesis Jassi N ILL Tonsillectomy Moody POP Plan of Treatment Date Care Activity Detail Author Start: 07-31-2025 Tobacco Screening Tobacco Screening [facility] Start: 07-29-2025 Adult BMI Screening Adult BMI Screen ing [facility] Start: 07-29-2025 Tobacco Screening Tobacco Screening [facility] Start: 04-20-2025 End: 04-20-2025 Patient encounter procedure 04/20/2025 10:00 AM EDT Office Visit Radiation Oncology [address] [address] Rg Winston MD [address] [place] [address] 4 month follow up Radiation Oncology Comment on above: 4 month follow up Start: 04-06-2025 Influenza vaccination Influenz a Vaccine (Season Ended) [facility] Start: 12-18-2024 End: 12-18-2024 Patient encounter procedure 12/18/2024 10:30 AM EDT Office Visit Radiation Oncology [address] [place] [address] Rg Winston MD [address] [place] [address] final radiation follow up Radiation Oncology Comment on above: final radiation foll ow up Start: 12-15-2024 End: 12-15-2024 Patient encounter procedure 12/15/2024 4:00 PM EDT Office Visit Radiation Oncology [address] [place] [address] Rg Winston MD [address] [address] final radiation follow up Radiation Oncology Comment on above: final radiation foll ow up Start: 11-19-2024 End: 11-19-2024 Patient encounter procedure 11/19/2024 10:00 AM EDT Office Visit Radiation Oncology [address] [place] [address] Rg Winston MD [address] [address] Location: [facility] Radiation Oncology Comment on above: Location: [facility] Start: 11-17-2024 End: 11-17-2024 Patient encounter procedure 11/17/2024 9:45 AM EDT Appointment Radiation Oncology [address] [place] [address] rt axilla/ neck Radiation Oncology Comment on above: rt axilla/ neck Start: 11-14-2024 End: 11-14-2024 Patient encounter procedure 11/14/2024 2:15 PM EDT Education Nutrition Therapy [address] [place] [address] [place] [address] Nutrition consult Nutrition Therapy Comment on above: Nutrition consult Start: 11-14-2024 End: 11-14-2024 Patient encounter procedure 11/14/2024 9:45 AM EDT Appointment Radiation Oncology [address] [place] [address] rt axilla/ neck Radiation Oncology Comment on above: rt axilla/ neck Start: 11-13-2024 End: 11-13-2024 Patient encounter procedure 11/13/2024 9:45 AM EDT Appointment Radiation Oncology [address] [place] [address] rt axilla/ neck Radiation Oncology Comment on above: rt axilla/ neck Start: 11-12-2024 End: 11-12-2024 Patient encounter procedure Radiation Oncology Comment on above: rt axilla/ neck Location: [facility] RE[facility] Start: 11-11-2024 End: 11-11-2024 Patient encounter procedure 11/11/2024 9:45 AM EDT Appointment Radiation Oncology [address] [place] [address] rt axilla/ neck Radiation Oncology Comment on above: rt axilla/ neck Start: 11-10-2024 End: 11-10-2024 Patient encounter procedure 11/10/2024 9:45 AM EDT Appointment Radiation Oncology [address] [place] [address] rt axilla/ neck Radiation Oncology Comment on above: rt axilla/ neck Start: 11-07-2024 End: 11-07-2024 Patient encounter procedure 11/07/2024 9:45 AM EDT Appointment Radiation Oncology [address] [place] [address] rt axilla/ neck Radiation Oncology Comment on above: rt axilla/ neck Start: 11-06-2024 End: 11-06-2024 Patient encounter procedure 11/06/2024 9:45 AM EDT Appointment Radiation Oncology [address] [place] [address] rt axilla/ neck Radiation Oncology Comment on above: rt axilla/ neck Start: 11-05-2024 End: 11-05-2024 Patient encounter procedure Radiation Oncology Comment on above: rt axilla/ neck Location: [facility] T[facility] REV Start: 11-04-2024 End: 11-04-2024 Patient encounter procedure 11/04/2024 9:45 AM EDT Appointment Radiation Oncology [address] [place] [address] rt axilla/ neck Radiation Oncology Comment on above: rt axilla/ neck Start: 11-03-2024 End: 11-03-2024 Patient encounter procedure 11/03/2024 3:45 PM EDT Office Visit [facility] [address] [place] [phone] Jassi Yanes MD [address] [place] [address] [address] [place] [address] [facility] Start: 10-21-2024 End: 10-21-2024 Patient encounter procedure Radiation Oncology Comment on above: NEW START AXILLA Axilla- would like m chencho Start: 10-20-2024 End: 10-20-2024 Patient encounter procedure Radiation Oncology Comment on above: NEW START AXILLA- SA R PT Axilla- would like m ornings- ANN PT Start: 10-07-2024 End: 10-07-2024 Patient encounter procedure 10/07/2024 1:30 PM EST Office Visit Radiation Oncology [address] [place] [address] Rg Winston MD [address] [place] [address] RT AXILLA/NECK W/ IV - CONSENT DONE Radiation Oncology Comment on above: RT AXILLA/NECK W/ IV - CONSENT DONE Start: 10-07-2024 End: 10-07-2024 Nursing evaluation of patient and report 10/07/2024 1:15 PM EST Nurse Visit Radiation Oncology [address] [place] [address] [place], [place] [id number] Ina, Nurse Radt [address] [place] [address] Nurse Visit Radiation Oncology Comment on above: Nurse Visit Start: 09-26-2024 End: 09-26-2024 Nutrition therapy 09/26/2024 1:30 PM EST Education Nutrition Therapy [address] [place] [address] [place] [address] Arrived Nutrition Therapy Comment on above: Arrived Start: 09-19-2024 End: 09-19-2024 Clinical Support 09/19/2024 9:00 AM EST Clinical Support [facility] [address] [facility] [address] [place] [address] Pilar Avina AUD [address] [place] [address] [facility] Start: 09-05-2024 Screening for malign ant neoplasm of colon [facility] Start: 09-04-2024 End: 09-04-2024 Patient encounter procedure [facility] Start: 09-01-2024 End: 09-01-2024 ambulatory [facility] Comment on above: Arrived Start: 08-29-2024 End: 08-29-2024 ambulatory 08/29/2024 9:00 AM EST Treatment [facility] [address] [place] [address] Aurea Sanchez, EUCLID OPERATOR [facility] Start: 08-27-2024 End: 08-27-2024 ambulatory 08/27/2024 9:00 AM EST Treatment [facility] [address] [place] [address] Aurea Sanchez, EUCLID OPERATOR [facility] Start: 08-22-2024 End: 08-22-2024 ambulatory [facility] Comment on above: Polyneuropathy (Prim benoit Dx); Poor balance; Weakness of both lower extremities Start: 08-07-2024 End: 08-07-2025 Cobalamin (Vitamin B12) [Mass/volume] in Serum or Plasma Vitamin B12 Lab Routine Lymphoma, unspecified body region, unspecified lymphoma type (CMS/HCC) Expected: 08/07/2024 (Approximate), Expires: 08/07/2025 [facility] Comment on above: Expected: 08/07/2024 (Approximate), Expires: 08/07/2025 Start: 08-07-2024 End: 08-07-2025 Copper, serum Copper, serum Lab Routine Lymphoma, unspecified body region, unspecified lymphoma type (CMS/HCC) Expected: 08/07/2024 (Approximate), Expires: 08/07/2025 [facility] Comment on above: Expected: 08/07/2024 (Approximate), Expires: 08/07/2025 Start: 08-07-2024 End: 08-07-2025 Hemoglobin A1c/Hemoglobin.total in Blood Hemoglobin A1c Lab Routine Lymphoma, unspecified body region, unspecified lymphoma type (CMS/HCC) Expected: 08/07/2024 (Approximate), Expires: 08/07/2025 [facility] Work Phone: Comment on above: Expected: 08/07/2024 [...] Start: 08-07-2024 End: 08-07-2024 Patient encounter procedure [facility] Comment on above: Arrived Start: 08-06-2024 Advance Directive Discussion Advance Directive Discussion [facility] Start: 07-10-2024 End: 07-10-2024 Patient encounter procedure [facility] [address] Comment on above: Arrived Start: 07-02-2024 End: 07-02-2024 Patient encounter procedure [facility] Comment on above: Arrived Start: 06-27-2024 End: 06-27-2024 Patient encounter procedure 06/27/2024 9:00 AM EST Office Visit [facility] [address] [place] [address] Lillian Nagel, AUD [address] [facility] [place] [address] Arrived [facility] Comment on above: Arrived Start: 06-17-2024 End: 06-17-2025 EMG 2 Extremities EMG 2 Extremities Neurology Routine Weakness Expected: 06/17/2024, Expires: [facility] Work Phone: Comment on above: Expected: 06/17/2024 , Expires: 06/17/2025 Start: 06-16-2024 End: 06-16-2024 Patient encounter procedure 06/16/2024 3:00 PM EST Office Visit [facility] [address] [facility] [place] [address] [facility] Start: 06-05-2024 End: 06-05-2024 Patient encounter procedure 06/05/2024 11:00 AM EDT Office Visit [facility] [address] [facility] [address] [place] [address] Shelby Arenas DO [address] [place], [place] [id number] [facility] Start: 04-06-2024 Covid-19 Vaccine ( season) Covid-19 Vaccine ( season) [facility] Start: 04-06-2024 Influenza vaccination P [facility] Start: 2021 Fall Risk Screening Fall Risk Screen ing [facility] Start: 07-19-2018 Pneumococcal Vaccine : 50+ (2 of 2 - PCV) Pneumococcal Vaccine: 50+ (2 of 2 - PCV) [facility] Start: 2016 RSV Vaccine (1 - Ris k 60-74 years 1-dose series) RSV Vaccine (1 - Risk 60-74 years 1-dose series) [facility] Start: 2011 Prostate specific an tigen measurement Prostate Cancer Screening Discussion [facility] Start: 10-02-2008 Diabetes Screening Diabetes Screenin g [facility] Start: 2006 Administration of varicella zoster vaccine Zoster (Shingles) Vaccine (1 of 2) [facility] Start: 2006 Shingrix Vaccine (1 of 2) Olivares grix Vaccine (1 of 2) [facility] Start: 2001 Prostate specific an tigen measurement Prostate Cancer Screening Discussion [facility] Start: 2001 Screening for malign ant neoplasm of colon [facility] Start: 1991 Lipid panel Lipid Screening [facility] Start: 1975 Administration of varicella zoster vaccine Zoster (Shingles) Vaccine (1 of 2) [facility] Start: 1975 DTaP,Tdap and Td Vac cines (1 - Tdap) DTaP,Tdap and Td Vaccines (1 - Tdap) [facility] Start: 1975 Shingrix Vaccine (1 of 2) Olivares grix Vaccine (1 of 2) [facility] Start: 1975 Urine microalbumin profile DTaP,Tdap,Td Vaccine (1 - Tdap) [facility] Start: 1974 Anxiety Screening Anxiety Screening [facility] Start: 1974 Depression Screening Depression Scre ening [facility] Start: 1974 Hepatitis C screening Hepatitis C Sc reening [facility] Start: 1968 Depression Screening Depression Scre ening [facility] Start: 1961 Covid-19 Vaccine (#1) Covid-19 Vacci ne (#1) [facility] Auditory function tests Auditory function tests Audiology Routine 05/26/2024 1:35 PM EDT [facility] Work Phone: Payers Date Payer Category Payer Medicare [employer]ARE [id number] 2023 Medicare (Managed Care) [id number] 2023 Private Health Insurance [id number] [address] [facility] [id number] 1959 Medicare [id number] 1958 Self-pay 1955 Unknown [id number] 2.16.840.1.738327.3.579. 2.593 1956 Unknown [id number] 2.16.840.1.988412.3.579. 2.593 1956 Unknown [id number] 2.16.840.1.758926.3.579. 2.593 1956 Unknown [id number] 2.16.840.1.236018.3.579. 2.593 1956 Unknown [id number] 2.16.840.1.399261.3.579. 2.727 1956 Unknown [id number] 2.16.840.1.153525.3.579. 2.727 1956 Unknown [id number] 2.16.840.1.195617.3.579. 2.727 1956 Unknown [id number] 2.16.840.1.692958.3.579. 2.727 1956 Unknown [id number] 2.16.840.1.894121.3.579. 2.727 1956 Unknown [id number] 2.16.840.1.896234.3.579. 2.727 1956 Unknown [id number] 2.16.840.1.083050.3.579. 2.727 1956 Unknown [id number] 2.16.840.1.345135.3.579. 2.727 1956 Unknown [id number] 2.16.840.1.467143.3.579. 2.1259 1956 Unknown [id number] 2.16.840.1.306009.3.579. 2.1259 1956 Unknown [id number] 2.16.840.1.615890.3.579. 2.125 1956 Unknown [id number] 2.16.840.1.491193.3.579. 2.1258 1956 Unknown [id number] 2.16.840.1.964330.3.579. 2.1259 1956 Unknown [id number] 2.16.840.1.523190.3.579. 2.125 1956 Unknown [id number] 2.16.840.1.589982.3.579. 2.125 1956 Unknown [id number] 2.16.840.1.052653.3.579. 2.125 1956 Unknown [id number] 2.16.840.1.913545.3.579. 2.1259 1956 Unknown [id number] 2.16.840.1.328045.3.579. 2.1259 Private Health Insurance [facility] [id number] Unknown Unknown [place] BC/BS [id number] Unknown [id number] 2.16.840.1.355245.3.579. 2.531 Unknown [id number] 2.16.840.1.105466.3.579. 2.531 Unknown [id number] 2.16.840.1.899429.3.579. 2.531 Social History Date Type Detail Facility Start: 01-21-2024 End: 09-25-2024 Tobacco smoking status Never smoked tobacco (finding) [facility] Tobacco smoking status Never [facility] Start: 07-29-2024 End: 09-25-2024 Sex Assigned At Male [facility] Start: 1955 Sex Assigned At Male [facility] Tobacco smoking status NH[facility] Tobacco smoking consumption unknown [facility] Start: 1955 Sex assigned at Not on file [facility] Start: 07-29-2024 End: 09-25-2024 Tobacco use and exposure Smokeless tobacco non-user [facility] Start: 07-31-2024 Alcoholic beverage intake Lifetime non-drinker (finding) [facility] Start: 07-29-2024 End: 09-25-2024 History of Social function [facility] Start: 05-15-2024 Sex Male (finding) [facility] Start: 05-15-2024 Gender identity Identifies as male gender (finding) [facility] Start: 05-15-2024 Sexual orientation Heterosexual (fin ding) [facility] Start: 09-25-2024 End: 11-05-2024 Alcoholic beverage intake Ex-drinker (finding) [facility] NEGATED: Highlighted rowStart: NINF History of tobacco use Passive smoker [facility] Functional Status Date Assessment Result Facility 06-03-2024 Functional Status N/A [facility] [place] 04-30-2024 Functional Status N/A [facility] [place] 01-21-2024 Functional Status N/A [facility] Clinical Notes 01-21-2024 to 12-18-2024 Rg Winston MD - 12/18/2024 11:59 PM EDTTelephone Encounter - Ana Paula Chauhan RN - 12/09/2024 4:03 PM EDTTelephone Encounter - Ana Paula Chauhan RN - 12/09/2024 4:03 PM EDTPatient Instructions Note Date & Type Note Facility 12-18-2024 Note HNO ID: [id number] Author: RG WINSTON MD Service: ? Author Type: Physician Type: Progress Notes Filed: 01/13/2025 03:50 Note Text: Radiation Oncology - Follow Up Note PATIENT NAME: Nabeel Tran PATIENT DIAGNOSIS/PATIENT IDENTIFICATION: Mr. 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 He completed a total of 4 cycles of ABVD under the care of Dr. Donnelly at [facility] and repeat pet imaging after the third cycle on 09/08/2024 noted excellent metabolic response (Deauville 3). He completed a course of consolidative radiation therapy to the right axilla and neck on 11/17/2024 (3600 cGy delivered in 20 fractions). Mr. Tran returns to clinic today for routine follow-up approximately one month after the completion of his radiation treatments. In the interim, he had initial posttreatment imaging with PET/CT on 12/15/2024 which showed significant improvement of the right supraclavicular and axillary ymphadenopathy with one residual enlarged lymph node with SUV of 2.2 from previous value of 2.8 on preradiation scan from 09/08/2024 Today he reports doing well and denies any pain or discomfort in the right axilla/neck and no skin irritation or breakdown. His range of motion remains unchanged and he notes no signs of lymphedema. He notes no new lumps or bumps in the treatment area or elsewhere. He did start steroids which he notes improvement in his skin rash and itching. He endorses stable energy appetite and hydration with stable weight. After reviewing the images and discussion with Dr. Donnelly, we agreed to repeat his imaging in 2 to 3 months to note stability. I will plan to see him back in approximately 4 months and he will follow with Dr. Donnelly scheduled for continued evaluation and surveillance including imaging. The patient is aware to contact the clinic in the interim should any questions or concerns arise. Thank you for allowing us to participate in the care of this patient. RADIOLOGIC DATA: PET/CT (12/15/2024) Signed by: Rg Winston MD This document has been created with the use of voice recognition technology. It may contain inaccuracies, misspellings, inaccurate syntax or inappropriate word context that are a result of the inadequacies/shortcomings of said technology/software. [facility] 12-18-2024 History of Present illness Narrative Radiation Oncology - Follow Up Note PATIENT NAME: Nabeel Tran PATIENT Signed by: Rg Winston MD This document has been created with the use of voice recognition technology. It may contain inaccuracies, misspellings, inaccurate syntax or inappropriate word context that are a result of the inadequacies/shortcomings of said technology/software. documented in this encounter [facility] 12-09-2024 Telephone encounter Note I left another message for Nabeel to return my call. Ana Paula Chauhan RN [facility] 12-09-2024 Miscellaneous Notes I left another message for Nabeel to return my call. Ana Paula Chauhan RN I called and left a message for Nabeel to call back for an update post radiation completion. Ana Paula Chauhan RN documented in this encounter [facility] 12-02-2024 Telephone encounter Note I called and left a message for Nabeel to call back for an update post radiation completion. Ana Paula Chauhan RN [facility] 11-17-2024 Note HNO ID: [id number] Author: RG WINSTON MD Service: ? Author Type: Physician Type: Progress Notes Filed: 11/27/2024 04:40 Note Text: [facility] Radiation Oncology Department RADIATION ONCOLOGY - COMPLETION NOTE PATIENT: NABEEL TRAN.: 1955 DATES OF TREATMENT: 10-21-2024 to 11-17-2024 DIAGNOSIS: Mr. 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 He completed a total of 4 cycles of ABVD under the care of Dr. Donnelly at [facility] and repeat pet imaging after the third cycle on 09/08/2024 noted excellent metabolic response (Deauville 3). AREA TREATED: Right Axilla/Neck DELIVERED DOSE: 3,600 cGy in 20 fractions, 2 Barr, X06 AND X15 with daily CBCT guidance TOTAL: 3,600 cGy delivered in 20 fractions ELAPSED TIME: 27 days. CLINICAL SUMMARY: The patient tolerated course of consolidative radiation therapy to the right axilla/neck well with mild treatment-related fatigue and dermatitis as expected. No other significant issues. The patient was able to complete treatment as intended without break interruption or modification of prescription plan. The patient will be evaluated in 2-3 weeks for postradiation follow-up and will follow with Dr. Donnelly as scheduled for continued evaluation and surveillance including initial post-treatment imaging to assess treatment response. Staff Physician Rg Winston M.D. / KAR 54:40 AM Electronically Signed cc: Sonia Donnelly MD ([place]) Ailin Green, LATASHA [address] [place] [address], [place] [address] [facility] 11-14-2024 Note Education (NUTRSA) NABEEL TRAN ([id number]) 1955 M Date Time Provider Department 11/14/24 2:15 PM MARGO SCHUMACHER Reason for Visit: Nutrition Telephone [2013] Cmt: No answer Visit Diagnosis:Hodgkin lymphoma, unspecified Hodgkin lymphoma type, unspecified body region (HCC) [C81.90] Order(s):CONSULT TO ONCOLOGY NUTRITION [3870355] Order #: [id number]: 1 During your visit today, we recorded the following information about you: Allergies As of Date: 11/14/2024 Noted Allergy Reaction NO KNOWN DRUG ALLERGIES 07/24/2005 no latex allergy [Other] 07/24/2005 Date Reviewed: 11/13/2024 Reviewed by: Coty Chan, RN - Fully Assessed Prescriptions as of 11/17/2024 - atorvastatin (LIPITOR) 10 mg tablet Take 10 mg by mouth. - liothyronine (CYTOMEL) 5 mcg tablet Take 10 mcg by mouth. - dilTIAZem CD (CARDIZEM CD, CARTIA XT) 240 mg 24 hr capsule Take 240 mg by mouth. - apixaban (ELIQUIS) 5 mg tab(s) Take 5 mg by mouth. - insulin glargine (LANTUS) 100 unit/mL injection Inject subcutaneously. - metoprolol tartrate, short acting, (LOPRESSOR) 25 mg tablet Take 50 mg by mouth. - ondansetron orally disintegrating (ZOFRAN ODT) 4 mg disintegrating tablet Take 4 mg by mouth at bedtime as needed. - pantoprazole DR (PROTONIX) 40 mg tablet 40 mg. Encounter Status:Closed by MARGO SCHUMACHER on 11/17/24 [facility] 11-14-2024 Note HNO ID: [id number] Author: MARGO SCHUMACHER RD Service: ? Author Type: Registered Dietitian Type: Progress Notes Filed: 11/17/2024 08:01 Note Text: Oncology Nutrition Therapy Reassessment I have communicated my name and active licensure. The patient's identity and physical location were verified at the time of this visit. Either the patient or their legal physician representative has been informed of the risks and benefits of -- and alternatives to -- treatment through a remote evaluation and consents to proceed with the evaluation remotely. 141- called pt for scheduled phone appointment. No answer, left message with return contact information. Signed by: Margo Schumacher RD, ZENY, JUSTINE [facility] 11-14-2024 History of Present illness Narrative Oncology Nutrition Therapy Reassessment I have communicated my name and active licensure. The patient's identity and physical location were verified at the time of this visit. Either the patient or their legal physician representative has been informed of the risks and benefits of -- and alternatives to -- treatment through a remote evaluation and consents to proceed with the evaluation remotely. [phone]- called pt for scheduled phone appointment. No answer, left message with return contact information. Signed by: Margo Schumacher RD, JUSTINE MOURA documented in this encounter [facility] 11-13-2024 Note HNO ID: [id number] Author: RG WINSTON MD Service: ? Author Type: Physician Type: Progress Notes Filed: 11/24/2024 22:41 Note Text: Radiation Oncology - On Treatment Review (OTR) Note PATIENT NAME: Nabeel Tran PATIENT DIAGNOSIS: Mr. 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 He completed a total of 4 cycles of ABVD under the care of Dr. Donnelly at [facility] and repeat pet imaging after the third cycle on 09/08/2024 noted excellent metabolic response (Deauville 3). COURSE: Consolidative AREA TREATED: Right axilla/neck CURRENT DOSE: 60093 cGy in 18 fx PLANNED DOSE: 3600 cGy in 20 fx SUBJECTIVE: Tolerating XRT well and reports no pain or discomfort in the treatment area with some slight skin erythema but no breakdown. His range of motion of the right upper extremity is stable with intact strength/use. He feels that his energy is improving with good appetite and hydration and stable weight. He notes continued generalized itching. EXAM: KPS: 90 General Appearance: Alert and oriented. No acute distress. Radiation dermatitis: Minimal IMAGING/LAB RESULTS: None Treatment chart checked: Yes Patient treatment site reviewed and verified:Yes Port films reviewed and current:Yes Medications started: None ASSESSMENT/PLAN: Clinically stable. Toxicity within expected parameters. Continue radiation treatment as planned. Rg Winston MD [facility] 11-13-2024 History of Present illness Narrative Radiation Oncology - On Treatment Review (OTR) Note PATIENT NAME: Nabeel Tran PATIENT DIAGNOSIS: Mr. 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 He completed a total of 4 cycles of ABVD under the care of Dr. Donnelly at [facility] and repeat pet imaging after the third cycle on 09/08/2024 noted excellent metabolic response (Deauville 3). COURSE: Consolidative AREA TREATED: Right axilla/neck CURRENT DOSE: 75355 cGy in 18 fx PLANNED DOSE: 3600 cGy in 20 fx SUBJECTIVE: Tolerating XRT well and reports no pain or discomfort in the treatment area with some slight skin erythema but no breakdown. His range of motion of the right upper extremity is stable with intact strength/use. He feels that his energy is improving with good appetite and hydration and stable weight. He notes continued generalized itching. EXAM: KPS: 90 General Appearance: Alert and oriented. No acute distress. Radiation dermatitis: Minimal IMAGING/LAB RESULTS: None Treatment chart checked: Yes Patient treatment site reviewed and verified:Yes Port films reviewed and current:Yes Medications started: None ASSESSMENT/PLAN: Clinically stable. Toxicity within expected parameters. Continue radiation treatment as planned. Rg Winston MD documented in this encounter [facility] 11-05-2024 Note HNO ID: [id number] Author: RG WINSTON MD Service: ? Author Type: Physician Type: Progress Notes Filed: 11/18/2024 04:46 Note Text: Radiation Oncology - On Treatment Review (OTR) Note PATIENT NAME: Nabeel Tran PATIENT DIAGNOSIS: Mr. 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 He completed a total of 4 cycles of ABVD under the care of Dr. Donnelly at [facility] and repeat pet imaging after the third cycle on 09/08/2024 noted excellent metabolic response (Deauville 3). COURSE: Consolidative AREA TREATED: Right axilla/neck CURRENT DOSE: 2160 cGy in 12 fx PLANNED DOSE: 3600 cGy in 20 fx SUBJECTIVE: Tolerating XRT well and denies any pain or discomfort in the treatment area or any skin irritation/breakdown with stable range of motion of the right upper extremity. He has noted some generalized itching which has been responding somewhat to Benadryl. EXAM: KPS: 90 General Appearance: Alert and oriented. No acute distress. Radiation dermatitis: No IMAGING/LAB RESULTS: None Treatment chart checked: Yes Patient treatment site reviewed and verified:Yes Port films reviewed and current:Yes Medications started: None ASSESSMENT/PLAN: Clinically stable. Toxicity within expected parameters. Continue radiation treatment as planned. As his generalized itching would not be a result of the radiation treatments, he was advised to meet with his primary care physician to further investigate if it persists. Rg Winston MD [facility] 11-05-2024 History of Present illness Narrative Radiation Oncology - On Treatment Review (OTR) Note PATIENT NAME: Nabeel Tran PATIENT Rg Winston MD documented in this encounter [facility] 10-29-2024 Note HNO ID: [id number] Author: RG WINSTON MD Service: ? Author Type: Physician Type: Progress Notes Filed: 11/10/2024 22:54 Note Text: Radiation Oncology - On Treatment Review (OTR) Note PATIENT NAME: Nabeel Tran PATIENT DIAGNOSIS: Mr. 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 He completed a total of 4 cycles of ABVD under the care of Dr. Donnelly at [facility] and repeat pet imaging after the third cycle on 09/08/2024 noted excellent metabolic response (Deauville 3). COURSE: Consolidative AREA TREATED: Right axilla/neck CURRENT DOSE: 1260 cGy in 7 fx PLANNED DOSE: 3600 cGy in 20 fx SUBJECTIVE: Tolerating RT well and reports no significant changes from last week and reports no pain or discomfort in the area of the axilla or neck and notes no skin irritation/breakdown or any new lumps or bumps. He has stable range of motion of the right upper extremity. He endorses stable energy appetite and hydration with stable weight. EXAM: KPS: 90 General Appearance: Alert and oriented. No acute distress. Radiation dermatitis: No IMAGING/LAB RESULTS: None Treatment chart checked: Yes Patient treatment site reviewed and verified:Yes Port films reviewed and current:Yes Medications started: None ASSESSMENT/PLAN: Clinically stable. Toxicity within expected parameters. Continue radiation treatment as planned. Rg Winston MD [facility] 10-29-2024 History of Present illness Narrative Radiation Oncology - On Treatment Review (OTR) Note PATIENT NAME: Nabeel Tran PATIENT DIAGNOSIS: Mr. 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 He completed a total of 4 cycles of ABVD under the care of Dr. Donnelly at [facility] and repeat pet imaging after the third cycle on 09/08/2024 noted excellent metabolic response (Deauville 3). COURSE: Consolidative AREA TREATED: Right axilla/neck CURRENT DOSE: 1260 cGy in 7 fx PLANNED DOSE: 3600 cGy in 20 fx SUBJECTIVE: Tolerating RT well and reports no significant changes from last week and reports no pain or discomfort in the area of the axilla or neck and notes no skin irritation/breakdown or any new lumps or bumps. He has stable range of motion of the right upper extremity. He endorses stable energy appetite and hydration with stable weight. EXAM: KPS: 90 General Appearance: Alert and oriented. No acute distress. Radiation dermatitis: No IMAGING/LAB RESULTS: None Treatment chart checked: Yes Patient treatment site reviewed and verified:Yes Port films reviewed and current:Yes Medications started: None ASSESSMENT/PLAN: Clinically stable. Toxicity within expected parameters. Continue radiation treatment as planned. Rg Winston MD documented in this encounter [facility] 10-21-2024 Note HNO ID: [id number] Author: RG WINSTON MD Service: ? Author Type: Physician Type: Progress Notes Filed: 11/03/2024 23:33 Note Text: Radiation Oncology - On Treatment Review (OTR) Note PATIENT NAME: Nabeel Tran PATIENT DIAGNOSIS: Mr. 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 He completed a total of 4 cycles of ABVD under the care of Dr. Donnelly at [facility] and repeat pet imaging after the third cycle on 09/08/2024 noted excellent metabolic response (Deauville 3). COURSE: Consolidative AREA TREATED: Right axilla/neck CURRENT DOSE: 180 cGy in 1 fx PLANNED DOSE: 3600 cGy in 20 fx SUBJECTIVE: Tolerated first fraction of XRT well and reports no significant changes for the time of simulation. Today he denies any pain or discomfort in the treatment area and reports no new lumps or bumps in the axilla and notes good range of motion of the left upper extremity. He endorses good energy appetite and hydration with stable weight. EXAM: KPS: 90 General Appearance: Alert and oriented. No acute distress. Radiation dermatitis: No IMAGING/LAB RESULTS: None Treatment chart checked: Yes Patient treatment site reviewed and verified:Yes Port films reviewed and current:Yes Medications started: None ASSESSMENT/PLAN: Clinically stable. No signs of toxicity. Continue radiation treatment as planned. We reviewed general precautions/instructions during radiation treatment to the axilla/neck as well as the potential acute toxicities during treatment and their time course. Discussed the importance of a well-balanced diet, hydration, and exercise/activity as tolerated through the course of treatment. Rg Winston MD [facility] 10-21-2024 History of Present illness Narrative Radiation Oncology - On Treatment Review (OTR) Note PATIENT NAME: Nabeel Tran PATIENT DIAGNOSIS: Mr. 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 He completed a total of 4 cycles of ABVD under the care of Dr. Donnelly at [facility] and repeat pet imaging after the third cycle on 09/08/2024 noted excellent metabolic response (Deauville 3). COURSE: Consolidative AREA TREATED: Right axilla/neck CURRENT DOSE: 180 cGy in 1 fx PLANNED DOSE: 3600 cGy in 20 fx SUBJECTIVE: Tolerated first fraction of XRT well and reports no significant changes for the time of simulation. Today he denies any pain or discomfort in the treatment area and reports no new lumps or bumps in the axilla and notes good range of motion of the left upper extremity. He endorses good energy appetite and hydration with stable weight. EXAM: KPS: 90 General Appearance: Alert and oriented. No acute distress. Radiation dermatitis: No IMAGING/LAB RESULTS: None Treatment chart checked: Yes Patient treatment site reviewed and verified:Yes Port films reviewed and current:Yes Medications started: None ASSESSMENT/PLAN: Clinically stable. No signs of toxicity. Continue radiation treatment as planned. We reviewed general precautions/instructions during radiation treatment to the axilla/neck as well as the potential acute toxicities during treatment and their time course. Discussed the importance of a well-balanced diet, hydration, and exercise/activity as tolerated through the course of treatment. Rg Winston MD documented in this encounter [facility] 10-07-2024 History of Present illness Narrative NABEEL TRAN [id number] 10/07/2024 [facility] Radiation Oncology Department SIMULATION NOTE DATE OF SIMULATION: 10/07/2024 THERAPIST: Marjan Werner MACHINE: Siemens NanoMedical Systemsgraph mCT DIAGNOSIS: Other classical Hodgkin lymphoma, 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C81.74 AREA: Axilla CONTRAST: IV 50 cc omni injected via the right ac Consent in Epic: Yes PATIENT POSITION: Supine. FIXATION DEVICE: In order to achieve accurate and reproducible treatments, the patient is immobilized with orfit AIO A time-out was conducted and recorded by the therapist. CT scan was completed for target localization and planning. Field arrangement will be determined after plan has been completed. The patient is scheduled for a verification simulation on the treatment machine to ensure proper set-up and field arrangement is correct prior to the first treatment of primary and boost barr if applicable. Patient education will be completed per nursing. Electronically Signed Rg Winston M.D. / CDT 56:24 PM documented in this encounter [facility] 10-07-2024 History of Present illness Narrative NABEEL TRAN [id number] 10/07/2024 [facility] Department of Radiation Oncology Treatment Planning Note For reasons stated in the consult note, Nabeel Tran is a candidate for radiation therapy. Based on review and interpretation of the relevant diagnostic studies together with the exam findings, Nabeel Tran was simulated on 10/07/2024 at which time the target volume and/or requisite barr were delineated, as indicated in the simulation note, to be treated according to the prescription. The treatment target and organs at risk were contoured on the simulation scan using the fused PET /. Special consideration to these and other structures was given in light of the potential for increased toxicities. After reviewing multiple treatment plans with dosimetry, the best plan was approved to deliver the prescribed course of radiation to the target area using 3D planning to allow for the best isodose distribution, treating to the 98.5% isodose line with 6 and 15MV and 2 barr. Custom MLCs wedges asym jaws were the treatment devices used to shape/modify the beams. Limiting dose to normal tissue was confirmed upon review of the calculated dose volume histogram. A completed summary of this plan dated 10/20/2024 incorporated herein by reference includes dose, beam arrangements, energy, blocking, isodose distribution, and/or ports and DVH. Electronically Signed Rg Winston M.D. 2:58 PM documented in this encounter [facility] 10-07-2024 Note HNO ID: [id number] Author: RG WINSTON MD Service: ? Author Type: Physician Type: Progress Notes Filed: 10/08/2024 18:24 Note Text: NABEEL TRAN Hector [id number] 10/07/2024 [facility] Radiation Oncology Department SIMULATION NOTE DATE OF SIMULATION: 10/07/2024 THERAPIST: Marjan Werner MACHINE: [employer] DIAGNOSIS: Other classical Hodgkin lymphoma, 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C81.74 AREA: Axilla CONTRAST: IV 50 cc omni injected via the right ac Consent in Epic: Yes PATIENT POSITION: Supine. FIXATION DEVICE: In order to achieve accurate and reproducible treatments, the patient is immobilized with orfit AIO A time-out was conducted and recorded by the therapist. CT scan was completed for target localization and planning. Field arrangement will be determined after plan has been completed. The patient is scheduled for a verification simulation on the treatment machine to ensure proper set-up and field arrangement is correct prior to the first treatment of primary and boost barr if applicable. Patient education will be completed per nursing. Electronically Signed Rg Winston M.D. / CDT 56:24 PM [facility] 10-07-2024 Note HNO ID: [id number] Author: RG WINSTON MD Service: ? Author Type: Physician Type: Progress Notes Filed: 10/20/2024 12:58 Note Text: ZEESHAN TRANEN W [id number] 10/07/2024 [facility] Department of Radiation Oncology Treatment Planning Note For reasons stated in the consult note, Nabeel Tran is a candidate for radiation therapy. Based on review and interpretation of the relevant diagnostic studies together with the exam findings, Nabeel Tran was simulated on 10/07/2024 at which time the target volume and/or requisite barr were delineated, as indicated in the simulation note, to be treated according to the prescription. The treatment target and organs at risk were contoured on the simulation scan using the fused PET /. Special consideration to these and other structures was given in light of the potential for increased toxicities. After reviewing multiple treatment plans with dosimetry, the best plan was approved to deliver the prescribed course of radiation to the target area using 3D planning to allow for the best isodose distribution, treating to the 98.5% isodose line with 6 and 15MV and 2 barr. Custom MLCs wedges asym jaws were the treatment devices used to shape/modify the beams. Limiting dose to normal tissue was confirmed upon review of the calculated dose volume histogram. A completed summary of this plan dated 10/20/2024 incorporated herein by reference includes dose, beam arrangements, energy, blocking, isodose distribution, and/or ports and DVH. Electronically Signed Rg Winston M.D. 2:58 PM [facility] 10-01-2024 Telephone encounter Note Called and spoke to Nabeel's . She confirmed his appointment times for 10/07/24 with an arrival of 1:00 PM and no special instructions. A nurse visit was added to the schedule for 1:15PM Mady Woodson PSS [facility] 10-01-2024 Miscellaneous Notes Called and spoke to Nabeel's . She confirmed his appointment times for 10/07/24 with an arrival of 1:00 PM and no special instructions. A nurse visit was added to the schedule for 1:15PM Mady Woodson PSS Sim scheduled on 10/07/24 at 1:30pm PSS - Please schedule nurse visit at 1:15 & notify pt of 1:00pm arrival time, no special instructions. Thanks! Kathleen Werner, RT(R)(T) Rad ed and Nutri scheduled Rad Ed today Dietary Eval Schedule Simulation treating R Axilla and Neck with IV Contrast- plan for possible 5 point mask- 20 Fx Sim on 10/06 Consent is Signed *Pt does have onbody glucose monitor-- he and were instructed on need to remove and of need to do finger stick blood sugars* Plan start 10/20 Coty Chan, RN documented in this encounter [facility] 10-01-2024 Telephone encounter Note Sim scheduled on 10/07/24 at 1:30pm PSS - Please schedule nurse visit at 1:15 & notify pt of 1:00pm arrival time, no special instructions. Thanks! Kathleen Werner RT(R)(T) [facility] Work Phone: 09-26-[address] - 09/26/2024 1:51 PM EST -aim for liberalized diet approach -aim for small frequent meals/snacks - eat around the clock every 2-3 hours versus waiting on hunger cues -include lean protein source at each meal/snack -encouraged adequate hydration -aim for 60-64 ounces non-caffeine containing fluids -discussed oral nutrition supplements -recommend switching from ensure original to ensure plus or high protein -incorporate calorie/protein boosting techniques at meals/snacks -whole milk, full fat dairy, cream, butter/margarine, full fat blackwood/dressing/condiments, oils, avocado, peanut butter, etc. documented in this encounter [facility] 09-26-2024 Note Education (NUTRSA) CHELSEANABEEL ([id number]) 1955 M Date Time Provider Department 09/26/24 1:30 PM MARGO SCHUMACHER Reason for Visit: Nutrition Telephone [2013] Primary Visit Diagnosis:Hodgkin lymphoma, unspecified Hodgkin lymphoma type, unspecified body region (HCC) [C81.90] During your visit today, we recorded the following information about you: Allergies As of Date: 09/26/2024 Noted Allergy Reaction NO KNOWN DRUG ALLERGIES 07/24/2005 no latex allergy [Other] 07/24/2005 Date Reviewed: 09/26/2024 Reviewed by: Margo Schumacher RD - Fully Assessed Prescriptions as of 09/26/2024 - atorvastatin (LIPITOR) 10 mg tablet Take 10 mg by mouth. - liothyronine (CYTOMEL) 5 mcg tablet Take 10 mcg by mouth. - dilTIAZem CD (CARDIZEM CD, CARTIA XT) 240 mg 24 hr capsule Take 240 mg by mouth. - apixaban (ELIQUIS) 5 mg tab(s) Take 5 mg by mouth. - insulin glargine (LANTUS) 100 unit/mL injection Inject subcutaneously. - metoprolol tartrate, short acting, (LOPRESSOR) 25 mg tablet Take 50 mg by mouth. - ondansetron orally disintegrating (ZOFRAN ODT) 4 mg disintegrating tablet Take 4 mg by mouth at bedtime as needed. - pantoprazole DR (PROTONIX) 40 mg tablet 40 mg. Encounter Status:Closed by MARGO SCHUMACHER on 09/26/24 [facility] 09-26-2024 Telephone encounter Note Rad ed and Nutri scheduled [facility] 09-26-2024 Note HNO ID: [id number] Author: MARGO SCHUMACHER RD Service: ? Author Type: Registered Dietitian Type: Progress Notes Filed: 09/26/2024 13:51 Note Text: Oncology Nutrition Therapy Initial Assessment I have communicated my name and active licensure. The patient's identity and physical location were verified at the time of this visit. Either the patient or their legal physician representative has been informed of the risks and benefits of -- and alternatives to -- treatment through a remote evaluation and consents to proceed with the evaluation remotely. RECOMMENDED MALNUTRITION DIAGNOSIS: UNABLE TO IDENTIFY MALNUTRITION AT THIS TIME due to no nfpe, limited diet recall Nutrition Diagnosis: Increased protein and energy needs related to hypermetabolic disease process as evidenced by need for weight maintenance and preservation of muscle mass. Nutrition Intervention: -aim for liberalized diet approach -aim for small frequent meals/snacks - eat around the clock every 2-3 hours versus waiting on hunger cues -include lean protein source at each meal/snack -encouraged adequate hydration -aim for 60-64 ounces non-caffeine containing fluids -discussed oral nutrition supplements -recommend switching from ensure original to ensure plus or high protein -incorporate calorie/protein boosting techniques at meals/snacks -whole milk, full fat dairy, cream, butter/margarine, full fat blackwood/dressing/condiments, oils, avocado, peanut butter, etc. -provided contact information for any further questions/concerns Nutrition Monitoring AND Evaluation: -PO Intake -Wt status -BM's -Supplement tolerance/acceptance -Biochemical Markers -Plan of care Patient's current symptoms are: GI: diarrhea Behavioral: altered appetite Patient presents for nutrition counseling for: Hodgkin lymphoma Current Treatment: per chart review, plans for RT treating the right axilla and neck with anticipated start date 10/20/24 Previous Treatment(s): ABVD (doxorubicin, bleomycin, vinblastine, dacarbazine) Medical Oncologist: Dr. Donnelly at the [facility] Radiation Oncologist: Dr. Winston PMHx: insulin dependent diabetes per Pt is LAC VIEUX but is able to verify his name AND . Pt gives me permission to only speak to his during this call. No swallowing difficulty reported, focusing on soft foods. Pt's states pt has been pretty sick from chemotherapy. Pt often c/o stomach aches, diarrhea (takes imodium as needed), fatigue, headaches, doesn't want to eat. She further states pt kind of shuts down. This will last for 3-4 days. tries to get him to accept applesauce, jello, etc. He does drink ensure original daily. Reviewed with pt importance of adequate calories/protein and preserving lean muscle mass. Reviewed above interventions, problem solved with pt on ways to meet recommendations, and answered all of patient's questions. Thank you for allowing me to participate in the care of this pt. Readiness to Learn: Cognitive ability: Alert and oriented Motivation to learn: Interested Family support: High - Very involved in pt care Instruction provided to: Family member Patient learns best by: Individual Instruction Factors affecting learning: None Physical limitations affecting learning: Sensory Deficit Hearing: Hard of Hearing Educational materials provided: none this visit Anthropometrics: Height: Last 1 Encounter Ht Readings: Date: Ht: 09/25/2024 189.2 cm (6' 2.5 ) Current weight: Last 1 Encounter Wt Readings: Date: Wt: 09/25/2024 85.4 kg (188 lb 4.4 oz) Estimated body mass index is 23.85 kg/m? as calculated from the following: Height as of 09/25/24: 189.2 cm (6' 2.5 ). Weight as of 09/25/24: 85.4 kg (188 lb 4.4 oz). Resting Metabolic Rate: 1706 Weight Change: Per , pt weight 3 mo ago was 158#. He has been slowly gaining. Dosing Weight: 85.4 kg Estimated kilocalorie needs: 4684-4556 kilocalories determined by 25-30 kcal/kg Estimated protein needs: 85-111 grams determined by 1.0-1.3 g/kg Dosing weight Estimated fluid needs: ~7451-3911 milliliters based on 1 mL per kcal (unless otherwise indicated) Nutrition Focused Physical Exam: Unable to perform exam due to patient unable to participate due to encounter type, will re-attempt during reassessment. Potential Signs of Inflammation: chronic condition Allergies: No Known Drug Allergies and No Latex Allergy [Other] Medications: Current Outpatient Medications Medication Sig Dispense Refill atorvastatin (LIPITOR) 10 mg tablet Take 10 mg by mouth. liothyronine (CYTOMEL) 5 mcg tablet Take 10 mcg by mouth. dilTIAZem CD (CARDIZEM CD, CARTIA XT) 240 mg 24 hr capsule Take 240 mg by mouth. apixaban (ELIQUIS) 5 mg tab(s) Take 5 mg by mouth. insulin glargine (LANTUS) 100 unit/mL injection Inject subcutaneously. metoprolol tartrate, short acting, (LOPRESSOR) 25 mg tablet Take 50 mg by mouth. ondansetron orally disin (more content not included)... [facility] 09-26-2024 History of Present illness Narrative Oncology Nutrition Therapy Initial Assessment I have communicated my name and active licensure. The patient's identity and physical location were verified at the time of this visit. Either the patient or their legal physician representative has been informed of the risks and benefits of -- and alternatives to -- treatment through a remote evaluation and consents to proceed with the evaluation remotely. RECOMMENDED MALNUTRITION DIAGNOSIS: UNABLE TO IDENTIFY MALNUTRITION AT THIS TIME due to no nfpe, limited diet recall Nutrition Diagnosis: Increased protein and energy needs related to hypermetabolic disease process as evidenced by need for weight maintenance and preservation of muscle mass. Nutrition Intervention: -aim for liberalized diet approach -aim for small frequent meals/snacks - eat around the clock every 2-3 hours versus waiting on hunger cues -include lean protein source at each meal/snack -encouraged adequate hydration -aim for 60-64 ounces non-caffeine containing fluids -discussed oral nutrition supplements -recommend switching from ensure original to ensure plus or high protein -incorporate calorie/protein boosting techniques at meals/snacks -whole milk, full fat dairy, cream, butter/margarine, full fat blackwood/dressing/condiments, oils, avocado, peanut butter, etc. -provided contact information for any further questions/concerns Nutrition Monitoring & Evaluation: -PO Intake -Wt status -BM's -Supplement tolerance/acceptance -Biochemical Markers -Plan of care Patient's current symptoms are: GI: diarrhea Behavioral: altered appetite Patient presents for nutrition counseling for: Hodgkin lymphoma Current Treatment: per chart review, plans for RT treating the right axilla and neck with anticipated start date 10/20/24 Previous Treatment(s): ABVD (doxorubicin, bleomycin, vinblastine, dacarbazine) Medical Oncologist: Dr. Donnelly at the [facility] Radiation Oncologist: Dr. Winston PMHx: insulin dependent diabetes per Pt is LAC VIEUX but is able to verify his name & . Pt gives me permission to only speak to his during this call. No swallowing difficulty reported, focusing on soft foods. Pt's states pt has been pretty sick from chemotherapy. Pt often c/o stomach aches, diarrhea (takes imodium as needed), fatigue, headaches, doesn't want to eat. She further states pt kind of shuts down. This will last for 3-4 days. tries to get him to accept applesauce, jello, etc. He does drink ensure original daily. Reviewed with pt importance of adequate calories/protein and preserving lean muscle mass. Reviewed above interventions, problem solved with pt on ways to meet recommendations, and answered all of patient's questions. Thank you for allowing me to participate in the care of this pt. Readiness to Learn: Cognitive ability: Alert and oriented Motivation to learn: Interested Family support: High - Very involved in pt care Instruction provided to: Family member Patient learns best by: Individual Instruction Factors affecting learning: None Physical limitations affecting learning: Sensory Deficit Hearing: Hard of Hearing Educational materials provided: none this visit Anthropometrics: Height: Last 1 Encounter Ht Readings: Date: Ht: 09/25/2024 189.2 cm (6' 2.5 ) Current weight: Last 1 Encounter Wt Readings: Date: Wt: 09/25/2024 85.4 kg (188 lb 4.4 oz) Estimated body mass index is 23.85 kg/m as calculated from the following: Height as of 09/25/24: 189.2 cm (6' 2.5 ). Weight as of 09/25/24: 85.4 kg (188 lb 4.4 oz). Resting Metabolic Rate: 1706 Weight Change: Per , pt weight 3 mo ago was 158#. He has been slowly gaining. Dosing Weight: 85.4 kg Estimated kilocalorie needs: 7756-4678 kilocalories determined by 25-30 kcal/kg Estimated protein needs: 85-111 grams determined by 1.0-1.3 g/kg Dosing weight Estimated fluid needs: ~6442-3713 milliliters based on 1 mL per kcal (unless otherwise indicated) Nutrition Focused Physical Exam: Unable to perform exam due to patient unable to participate due to encounter type, will re-attempt during reassessment. Potential Signs of Inflammation: chronic condition Allergies: No Known Drug Allergies and No Latex Allergy [Other] Medications: Current Outpatient Medications Medication Sig Dispense Refill atorvastatin (LIPITOR) 10 mg tablet Take 10 mg by mouth. liothyronine (CYTOMEL) 5 mcg tablet Take 10 mcg by mouth. dilTIAZem CD (CARDIZEM CD, CARTIA XT) 240 mg 24 hr capsule Take 240 mg by mouth. apixaban (ELIQUIS) 5 mg tab(s) Take 5 mg by mouth. insulin glargine (LANTUS) 100 unit/mL injection Inject subcutaneously. metoprolol tartrate, short acting, (LOPRESSOR) 25 mg tablet Take 50 mg by mouth. ondansetron orally disintegrating (ZOFRAN ODT) 4 mg disintegrating tablet Take 4 mg by mouth at bedtime as needed. pantoprazole DR (PROTONIX) 40 mg tablet 40 mg. No current facility-administered medications for this visit. Need for Follow up: will continue to follow Referred by: Catrachito WATERMAN Billing Type: Initial Assess/15 min 1 unit Time Spent with Patient: 15 minutes Signed by: Margo Schumacher RD, MANAGER AMBULATORY, LD documented in this encounter [facility] 09-25-2024 Note HNO ID: [id number] Author: RG WINSTON MD Service: ? Author Type: Physician Type: Progress Notes Filed: 10/21/2024 08:06 Note Text: Radiation Oncology - New Patient/Consult Note PATIENT NAME: Nabeel Tran PATIENT REQUESTING PHYSICIAN: Dr. Sonia Donnelly DIAGNOSIS: Stage II, classical Hodgkin's Lymphoma arising from the right axilla/neck (bulky) PATIENT IDENTIFICATION: This patient was seen in the Department of Radiation Oncology at the [facility] with Rg Winston MD. He was accompanied today by his family. Final recommendations will be communicated back to the requesting physician by way of the shared medical record, or letter to requesting physician via [place] mail. HISTORY OF PRESENT ILLNESS: Mr. 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 Ultrasound at the time from 03/25/2024 described a large heterogenous predominantly hypoechoic masses and subsequent CT of the chest from 03/29/2024 further noted numerous enlarged lymph nodes in the right axilla concerning for lymphoma with the largest measuring 6 cm. Ultrasound-guided biopsy of the note from 04/11/2024 described malignancy consistent with atypical lymphoproliferative disorder after second review through [facility]. 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 PET/CT was obtained on 05/12/2024 describing multiple metabolically active right supraclavicular, right axillary and right sup pectoral lymph nodes consistent with lymphoma with no other evidence of disease above or below the diaphragm. The patient then completed a course of systemic therapy with Dr. Donnelly consisting of 3 cycles of ABVD followed by repeat PET scan on 09/08/2024 showing excellent metabolic response rated at Deauville 3. He then completed a fourth and final cycle of ABVD and is referred today to the radiation medicine clinic to have a discussion regarding the role of radiation therapy in the consolidative treatment of his Hodgkin's lymphoma. INTERVAL HISTORY: The patient notes that his axillary and neck disease was never painful and never involve the skin and began drinking with his systemic therapy. He does note an approximate 100 pound weight loss over the past 8 months. He tolerated systemic therapy fairly well but did note diarrhea headaches as well as stomach discomfort and fatigue. PAST MEDICAL HISTORY: PAST MEDICAL HISTORY Diagnosis Date Atrial fibrillation (HCC) Deaf, right Diabetes mellitus (HCC) Heart murmur Hodgkin's lymphoma (HCC) Other and unspecified disc disorder of unspecified region Intervertebral disc disorders PAST SURGICAL HISTORY: PAST SURGICAL HISTORY Procedure Laterality Date AUDITORY EVOKED POTENTIAL FOR RETROCOCHLEAR ASSESSMENT acoustic neuroma LAMINECTOMY W/O FFD 08/07 VERT SEG LUMBAR Laminectomy, lumbar TONSILLECTOMY PRIMARY/SECONDARY Tonsillectomy FAMILY HISTORY: FAMILY HISTORY Problem Relation Age of Onset Alcohol/Drug Father SOCIAL HISTORY: Mr. Tran is , has 2 children, and lives in the [place], [place] area. 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 He denies tobacco or alcohol use. RADIATION HISTORY: The patient denies any history of therapeutic radiation. ALLERGIES: ALLERGIES Allergen Reactions No Known Drug Aller* No Latex Allergy [O* MEDICATIONS: Current Outpatient Medications: atorvastatin (LIPITOR) 10 mg tablet liothyronine (CYTOMEL) 5 mcg tablet dilTIAZem CD (CARDIZEM CD, CARTIA XT) 240 mg 24 hr capsule apixaban (ELIQUIS) 5 mg tab(s) insulin glargine (LANTUS) 100 unit/mL injection metoprolol tartrate, short acting, (LOPRESSOR) 25 mg tablet ondansetron orally disintegrating (ZOFRAN ODT) 4 mg disintegrating tablet pantoprazole DR (PROTONIX) 40 mg tablet PHYSICAL EXAMINATION: GENERAL: middle-aged gentleman the morning sitting in chair, in no acute distress. VITALS: BP 110/63 Pulse 62 Temp 96.8 Resp 16 Ht 6' 2.5 (1.89m) Wt 188 lb 4.4 oz (85.4kg) SpO2 98% BMI 23.86 kg/(m2). KPS: 90 HEENT: NC/AT, anicteric sclera HEART: S1S2 LUNGS: non-labored breathing ABDOMEN: soft MUSCULOSKELETAL: no peripheral edema, moves all extremities. NEURO: no focal deficit; AANDO X3. PATHOLOGIC DATA: 04/23/2024 RADIOLOGIC DATA: PET/CT (05/12/2024) PET/CT (09/08/2024) IMPRESSION: Mr. 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 He completed a total of 4 cycles of ABVD under the care of Dr. Donnelly at [facility] and repeat pet imaging after the third cycle on 09/08/2024 noted excellent metabolic response (more content not included)... [facility] 09-25-2024 History of Present illness Narrative Images from the original note were not included. Radiation Oncology - New Patient/Consult Note PATIENT NAME: Nabeel Tran PATIENT Signed: Rg Winston MD I spent a total of 60 minutes on the date of the service which included preparing to see the patient, [id number] patient care, and counseling and educating the patient/family/caregiver. This document has been created with the use of voice recognition technology. It may contain inaccuracies, misspellings, inaccurate syntax or inappropriate word context that are a result of the inadequacies/shortcomings of said technology/software. Pacemaker/Defibrillator? No Previous Cancer(s)? No Previous Radiation? No Lupus/Scleroderma? No On body monitoring device? Yes, G7 device for glucose monitoring. Was notified of need to remove prior to simulation/treatment. Was also notified of need to do finger stick blood sugars throughout. and pt aware. Coty Chan RN documented in this encounter [facility] 09-25-2024 History of Present illness Narrative Radiation Therapy - Patient Education Note PATIENT NAME: Nabeel Tran PATIENT September 25, 2024 [facility] FACILITY/LOCATION: [facility] READINESS TO LEARN Cognitive Ability: Alert and oriented Motivation to learn: Interested Family Support: High - Very involved in pt care Instruction provide to: Patient and family member Patient learns best by: Written Instruction - Hand-outs Factors effecting learning: None Physical limitations effecting learning: Sensory Deficit Hearing: Hard of Hearing LEARNING RESPONSE Diagnosis: Pt educated today for radiation therapy to head and neck. Education Topic/Teaching Points: Radiation therapy, Side effects, and OTV: Method of instruction: Written instruction/Handouts Patient /Family response: Patient and family verbalized understanding of radiation treatments, side effects, OTV, and transportation. Follow-up plan: Recommend - Recommend continued instruction and follow up as directed Supplemental material: Informational handouts on Head and neck packet. Referral (recommendation): Dietitian Was PED reviewed? Yes Patient has an Onbody or Implanted device: Yes, person notified was: Dr Winston/ Radiation therapist. Signed by: Coty Chan RN documented in this encounter [facility] 09-25-2024 Note HNO ID: [id number] Author: COTY CHAN RN Service: ? Author Type: Registered Nurse Type: Progress Notes Filed: 09/26/2024 08:31 Note Text: Radiation Therapy - Patient Education Note PATIENT NAME: Nabeel Tran PATIENT September 25, 2024 [facility] FACILITY/LOCATION: [facility] READINESS TO LEARN Cognitive Ability: Alert and oriented Motivation to learn: Interested Family Support: High - Very involved in pt care Instruction provide to: Patient and family member Patient learns best by: Written Instruction - Hand-outs Factors effecting learning: None Physical limitations effecting learning: Sensory Deficit Hearing: Hard of Hearing LEARNING RESPONSE Diagnosis: Pt educated today for radiation therapy to head and neck. Education Topic/Teaching Points: Radiation therapy, Side effects, and OTV: Method of instruction: Written instruction/Handouts Patient /Family response: Patient and family verbalized understanding of radiation treatments, side effects, OTV, and transportation. Follow-up plan: Recommend - Recommend continued instruction and follow up as directed Supplemental material: Informational handouts on Head and neck packet. Referral (recommendation): Dietitian Was PED reviewed? Yes Patient has an Onbody or Implanted device: Yes, person notified was: Dr Winston/ Radiation therapist. Signed by: Coty Chan RN [facility] 09-25-2024 Telephone encounter Note Rad Ed today Dietary Eval Schedule Simulation treating R Axilla and Neck with IV Contrast- plan for possible 5 point mask- 20 Fx Sim on 10/06 Consent is Signed *Pt does have onbody glucose monitor-- he and were instructed on need to remove and of need to do finger stick blood sugars* Plan start 10/20 Coty Chan RN [facility] 09-25-2024 Note HNO ID: [id number] Author: COTY CHAN RN Service: ? Author Type: Registered Nurse Type: Progress Notes Filed: 10/20/2024 23:58 Note Text: Pacemaker/Defibrillator? No Previous Cancer(s)? No Previous Radiation? No Lupus/Scleroderma? No On body monitoring device? Yes, G7 device for glucose monitoring. Was notified of need to remove prior to simulation/treatment. Was also notified of need to do finger stick blood sugars throughout. and pt aware. Coty Chan RN [facility] 09-25-2024 Note Education ([facility]) CHELSEANABEEL W ([id number]) 1955 M Date Time Provider Department 09/25/24 COTY CHAN Reason for Visit: Patient Education [91] During your visit today, we recorded the following information about you: Allergies As of Date: 09/25/2024 Noted Allergy Reaction NO KNOWN DRUG ALLERGIES 07/24/2005 no latex allergy [Other] 07/24/2005 Date Reviewed: 10/08/2006 Reviewed by: Washington Estrada Ma - Reviewed Prescriptions as of 09/26/2024 - atorvastatin (LIPITOR) 10 mg tablet Take 10 mg by mouth. - liothyronine (CYTOMEL) 5 mcg tablet Take 10 mcg by mouth. - dilTIAZem CD (CARDIZEM CD, CARTIA XT) 240 mg 24 hr capsule Take 240 mg by mouth. - apixaban (ELIQUIS) 5 mg tab(s) Take 5 mg by mouth. - insulin glargine (LANTUS) 100 unit/mL injection Inject subcutaneously. - metoprolol tartrate, short acting, (LOPRESSOR) 25 mg tablet Take 50 mg by mouth. - ondansetron orally disintegrating (ZOFRAN ODT) 4 mg disintegrating tablet Take 4 mg by mouth at bedtime as needed. - pantoprazole DR (PROTONIX) 40 mg tablet 40 mg. Encounter Status:Closed by COTY CHAN on 09/26/24 [facility] 09-23-2024 Telephone encounter Note Called to check on PT status re: his last PT was 09/01. Silvana noted w/ Chemo treatment and radiation following, is taking a lot out of Nabeel; she does not feel cont on w/ PT right now he's able. I told her if PT is needed not to hesitate and contact and pending w/ referring provider continuation could be suitable. [facility] 09-23-2024 Miscellaneous Notes Called to check on PT status re: his last PT was 09/01. Silvana noted w/ Chemo treatment and radiation following, is taking a lot out of Nabeel; she does not feel cont on w/ PT right now he's able. I told her if PT is needed not to hesitate and contact and pending w/ referring provider continuation could be suitable. documented in this encounter [facility] 09-19-2024 History of Present illness Narrative AUDIOLOGIC EVALUATION & HEARING AID EVALUATION Nabeel Tran, 69 y.o., was seen at our office for an audiologic assessment. His reports he had a right acoustic neuroma removed about 20 years ago and lost all hearing in his right ear with the surgery. His hearing in his left ear has gradually declined over the years. He tried hearing aids in May but he wasn't hearing any better and they returned them. His thinks it was a CROS over hearing aid at the time. He is currently undergoing cancer treatment (chemotherapy). He denies otalgia, otorrhea, tinnitus, and aural fullness. His and Nabeel note he is struggling significantly to hear during daily life. They are here to discuss amplification options for Nabeel. An updated hearing test of his left ear was completed today, as Nabeel reports the hearing in his left ear seems worse than when it was tested at [facility] in May 2024. Otoscopic Evaluation: Right Ear: Unremarkable Left Ear: Unremarkable Immittance Measures: Right Ear: DNT Left Ear: Type A Pure Tone Audiometry: Right Ear: DNT, known profound SNHL for 20+ years, well documented Left Ear: Moderate sloping to severe SNHL Reliability: good Speech Audiometry: SRT/EUCLID OPERATOR in good agreement for the left ear WRS: Right Ear: DNT Left Ear: Very poor (16%) - without visual cues Left Ear: Fair (68%) - with visual cues RECOMMENDATIONS & HEARING AID EVALUATION: Mr. Tran was informed of the test results today. It is recommended he follow up for a repeat hearing test if any changes in hearing, tinnitus, or other otologic symptoms are noted. Different communication strategies, such as asking others to speak slower, looking at the person speaking, being in the same room, decreasing background noise and getting one's attention before speaking, were discussed in great detail. As shown by his word recognition testing today, he is able to understand best when he has visual cues to aid him. Discussed being an advocate for himself and letting others know when he did not understand them or if he needs them to speak slower/repeat what they said. He was able to demo a left ear Phonak Corin BTE during counseling today. He felt he was hearing better with the power BTE than he was with the CROS he tried in the Fall. He likes the idea of a rechargeable BTE and connection to his iPhone. We discussed in addition, he could likely benefit from the use of assistive listening devices such as a caption phone, a Phonak RemoteMic, and/or a TV Connector. These devices would work with the current hearing aid to allow for a better speech to noise ratio to aid in his understanding of speech/TV over a distance. It was determined however, he has a benefit through [facility] [employer], and he would be unable to use his benefit at our office. We discussed talking to a [facility] provider about a power BTE that would be covered by his benefit and be similar to the Phonak Corin. If he wants to order a hearing aid through our office it would be an out of pocket expense. His will look into some of this at this time. We also discussed an over the counter aid or a pocket talker to help him hear/engage with others in the interim. Based on today's testing, he is a cochlear implant candidate in his left ear. We discussed the basics of cochlear implants and how they work. In the future, he may be interested in discussing this further, however, not at this time due to his ongoing cancer treatment. Katarina Chew, DIANE-A Sprinkler Driver documented in this encounter [facility] 09-15-2024 Note [place] [facility] - [facility] Subjective Nabeel Tran is a 69 y.o. year old male patient being seen for 3 mo follow up hypertension, SOB, and valve disorder. Dr. Bender stopped his losartan at last apt in Jun 2024 due to hypotension. says BP has been around 110/60's at home. He had repeat echo and labs last month. He denies chest pain, SOB, palpitations, lightheadedness/syncope, and bleeding on Eliquis. Patient Active Problem List Diagnosis ENE (obstructive sleep apnea) Non-rheumatic mitral regurgitation Nonrheumatic aortic valve insufficiency Primary hypertension Acoustic neuroma (CMS/HCC) Anxiety BPH with obstruction/lower urinary tract symptoms Diabetes mellitus (CMS/HCC) Glucosuria History of brain tumor Hyperlipidemia Lymphadenopathy, axillary Nodular sclerosis Hodgkin lymphoma of lymph nodes of upper extremity (CMS/HCC) Non-Hodgkin lymphoma (CMS/HCC) OAB (overactive bladder) Poor venous access Pulmonary arterial hypertension (CMS/HCC) Screening PSA (prostate specific antigen) Family History Problem Relation Name Age of Onset Coronary artery disease Mother Social History Tobacco Use Smoking status: Never Smokeless tobacco: Never Substance Use Topics Alcohol use: Yes Comment: occasional HPI Nabeel is seen in follow-up. He has prior history of hypertension for [...] stop it due to excessive urination. At visit of 02/25/2024 I reduced amlodipine due to dizziness and lightheadedness. At visit of 03/28/2024 and due to LDL being very low and mild elevation of liver enzymes, I reduced atorvastatin to 10 mg daily. He has lymphoma. He underwent a port placement and then was admitted to the [facility] on 06/13/2024 with atrial fibrillation and rapid ventricular response with significant weakness with ambulation and shortness of breath and low blood pressure. He was treated with intravenous Cardizem. He was started on anticoagulation therapy with Eliquis. he finished chemotherapy and they will decide on further treatment depending on the results of the PET scan. An event monitor July 2024 showed evidence of atrial fibrillation. Today he reports that he has been doing reasonably well. He does have fatigue and feels tired but he does not have shortness of breath, chest pain or leg edema. He does not feel palpitations. Review of Systems Constitutional: Positive for malaise/fatigue and weight gain (22# since Jun 2024). HENT: Positive for hearing loss. Musculoskeletal: Positive for muscle weakness. Neurological: Positive for weakness. All other systems reviewed and are negative. Objective Visit Vitals BP 108/70 (BP Location: Left arm, Patient Position: Sitting) Pulse 65 Ht 1.88 m (6' 2 ) Wt 81.6 kg (180 lb) SpO2 99% BMI 23.11 kg/m??? Smoking Status Never BSA 2.06 m??? Physical Exam Constitutional: Appearance: He is well-developed. He is not ill-appearing. HENT: Head: Normocephalic and atraumatic. Nose: Nose normal. Eyes: General: No scleral icterus. Pupils: Pupils are equal, round, and reactive to light. Neck: Thyroid: No thyromegaly. Vascular: No JVD. Cardiovascular: Rate and Rhythm: Normal rate and regular rhythm. Pulses: Radial pulses are 2+ on the [...] General: No swelling. Cervical back: Neck supple. Comments: Uses a cane to assist with ambulation Skin: General: Skin is warm and dry. Neurological: General: No focal deficit present. Mental Status: He is alert and oriented to person, place, and time. Psychiatric: Mood and Affect: Mood normal. Behavior: Behavior is cooperative. Judgment: Judgment normal. Allergies Allergies Allergen Reactions Jardiance [Empagl (more content not included)... [facility] 09-08-2024 Miscellaneous Notes MRI Brain in May 2024 with no left sided abnormalities noted. Right IAC enhancement, right cochlear and CN 7 enhancement. Please schedule patient for follow up with Dr. Yanes. documented in this encounter [facility] 09-08-2024 Telephone encounter Note MRI Brain in May 2024 with no left sided abnormalities noted. Right IAC enhancement, right cochlear and CN 7 enhancement. Please schedule patient for follow up with Dr. Yanes. [facility] 09-08-2024 Miscellaneous Notes Ok Cooper, doesn't look like we have the MRI brain report. Can you look into it? Thank you documented in this encounter [facility] 09-08-2024 Telephone encounter Note Ok oCoper, doesn't look like we have the MRI brain report. Can you look into it? Thank you [facility] 09-01-2024 History of Present illness Narrative Images from the original note were not included. Physical Therapy Treatment Visit Patient Name: Nabeel Tran Today's Date: 09/01/24 Encounter Diagnoses Name Primary? Polyneuropathy Yes Poor balance Weakness of both lower extremities Visit number: 3 ( of 6 visits) Timed Code Treatment: 45 minutes Total Treatment Time: 55 minutes Time In: 1055 AM Time Out: 1150 AM History: Pt. Presents to PT with c/c [...] in left ear. Dont over exert. Cancer. A-Fib with heart murmur Subjective Pt. Reports feeling better today but was sick all last week due to chemo treatment. Pain: denies any present pain Objective: PT Evaluation (08/20/24) LE ROM: grossly WFL LE strength: right LE 4-/5, left LE 4-/5 Observation: bilateral LE atrophy (quadriceps/gluteal) Gait: shuffling gait pattern Functional: moderate use of bilateral UE with sit to stand transfers Balance: fair dynamic standing balance Treatment: Manual Therapy: Passive ROM, Joint mobilization, Soft Tissue Mobilization, Myofascial Release, Muscle Energy Technique, Neural Mobilization, Myofascial Cupping, Dry Needling, IASTM, and Scar mobilization Therapeutic Exercise: (30 minutes supervised) Guided pt through ther and flex ex per grid to improve LE Strength, Endurance, Flexibility, ROM, HEP, Neural Mobilization, Power, and Core Stability; Nustep ( 10 minutes unsupervised) seat set to 28 hills level 3 to improve endurance Therapeutic Activity: (10 minutes unsupervised ) Exercises to improve dynamic activities, functional tasks, functional mobility to return to prior activity level Gait Training: Neuromuscular re-education: Balance Training, Muscle Facilitation, Dynamic Stability, Core Stabilization, and Blood Flow Restriction Training (BFRT) Modalities: Heat, Ice, Electrical Stimulation, Ultrasound, Cervical Mechanical Traction, Lumbar Mechanical Traction, Iontophoresis, and Fluidotherapy Assessment: Pt has participated in 3 PT session with start of POC on 08/20/24 for LE weakness and balance. Pt continues to demonstrates stride length. Good effort with all ther ex but required multiple rest breaks. Outcome Measure: 34/80 Short Term Goal: To be met in 2 weeks Goal 1: Pt to be instructed in home exercise program. Fpc Goals: To be met in 10 weeks [...] sign below. Date: documented in this encounter [facility] 08-20-2024 History of Present illness Narrative Physical [...] to be instructed in home exercise program. Content Management Specialist Goals: To be met in 10 weeks [...] sign below. Date: documented in this encounter [facility] 08-15-2024 Miscellaneous Notes Thank you Allison. I [...] do. documented in this encounter [facility] 08-15-2024 Telephone encounter Note Thank you Allison. I do not see a report for the MRI Brain. Do we have that radiology report? [facility] 08-15-2024 Telephone encounter Note I just looked and it looks like they never faxed that one or it got lost. I can call to have them resend it or it looks like it is in under the imaging. Let me know what you would like me to do. [facility] 08-13-2024 Miscellaneous Notes [facility] - [place] called 08/13, patient saw Dr. Ibarra on 07/29/24. [place] needs office notes faxed to [phone]. Faxed over office not to number provided. documented in this encounter [facility] 08-13-2024 Telephone encounter Note [facility] - [place] called 08/13, patient saw Dr. Ibarra on 07/29/24. [place] needs office notes faxed to [phone]. [facility] 08-13-2024 Telephone encounter Note Faxed over office not to number provided. [facility] 08-12-2024 Miscellaneous Notes Just wanted to check if anyone had gotten his head and neck imaging from the outside hospital back? documented in this encounter [facility] 08-12-2024 Telephone encounter Note Just wanted to check if anyone had gotten his head and neck imaging from the outside hospital back? [facility] 08-07-2024 History of Present illness Narrative Images [...] CN II: Visual acuity is normal. Visual barr full to confrontation. CN III, IV, : [...] , wrist extensors , wrist flexor , digital librarian strength 4-/5. LUE Strength deltoid , biceps , triceps , wrist extensors , wrist flexor , digital librarian strength 4-/5. RLE Strength illopsoas, quadriceps, tibialis [...] reflex 1+ . Flowers's sign negative. Coordination: Nwvbcr-[id number] testing and rapid alternating movements are normal [...] and return instructions documented in this encounter [facility] 07-29-2024 History of Present illness Narrative Images from the original note were not included. [facility] [address] [place] [id number] SUBJECTIVE: Patient ID ([id number]): Nabeel Tran is a 68 y.o. male presents today for Chief Complaint Patient presents with Cerumen Impaction Bilateral Hearing Loss Laterality HPI: Nabeel is presenting today with bilateral profound hearing loss. He had an acoustic neuroma resected at the [facility] about 20 years ago on the right [...] HISTORY: Past Medical History: Diagnosis Date Cancer ([facility]-HCC) Past Surgical History: Procedure Laterality Date TUNNEL [...] resected 20 years ago at the [facility] presenting for left-sided sensorineural hearing loss, ongoing [...] this chart were generated using voice recognition [employer] dictation software. Although every effort was made to ensure the accuracy of this automated propeller mechanic, some errors in propeller mechanic may have occurred. documented in this encounter [facility] 07-10-2024 History of Present illness Narrative Images from the original note were not included. Reason for Appointment: EMG Patient: Nabeel Tran : 1955 EMG Computer: [employer] Referring Physician: Dr. Shelby Arenas EMG: BLE supervisor putty and caluking: Gilbert Gaffney RT(R) Office Location: [place] Reason for EMG: c/o numbness/tingling in bilateral feet. Hx of surgery to low back. Pt currently undergoing chemo. Hx of DM. Taking Eliquis. Comments: Procedure was explained to the patient & who expressed understanding. Patient appeared to have tolerated the test well despite some discomfort due to the nature of the test. documented in this encounter [facility] 07-02-2024 History of Present illness Narrative HAP: [...] offered the opportunity to try a different staking engineer to see if he would perceive success. Patient would prefer to return the instruments. A return was processed in [employer] portal. Informed patient he will be refunded by [employer]. Gave his the [employer] number in the event they needed to discuss the refund process. Patient to let us know if he would like to try [employer] devices again in the future. documented in this encounter [facility] 06-27-2024 History of Present illness Narrative HAP: [...] the trial period. documented in this encounter [facility] 06-19-2024 Note [place] [facility] Subjective Nabeel Tran is [...] morning., Disp: , (more content not included)... [facility] 06-17-2024 History of Present illness Narrative Images from the original note were not included. Chief complaint: Unsteadiness and generalized weakness and falls Subjective Nabeel Tran, 68 y.o., male Nabeel presents today for a neurological consultation at the request of Ailin Green CNP for unsteady gait, generlized weakness, falls. Pt was seen at [facility] labs, U/A, PET scan, ECG and [...] CN II: Visual acuity is normal. Visual barr full to confrontation. CN III, IV, : [...] , wrist extensors , wrist flexor , digital librarian strength 4-/5. LUE Strength deltoid , biceps , triceps , wrist extensors , wrist flexor , digital librarian strength 4-/5. RLE Strength illopsoas, quadriceps, tibialis [...] reflex 2+ . Flowers's sign negative. Coordination: Yzaxsb-fj-kenz testing and rapid alternating movements are normal [...] and return instructions documented in this encounter [facility] 06-16-2024 History of Present illness Narrative Patient [...] The right CROS was coupled to 2S metallurgist process with a 10 mm open dome. The left hearing aid was coupled to a [employer] custom canal lock earmold. Patient does not use a smart phone. Patient did not want to schedule a follow up due to his health and many appointments. Patient's states she will call for follow up. Cosigned by FRANKIE Spears at 06/17/2024 11:28 AM EST documented in this encounter [facility] 06-03-2024 Note General Surgery Offi ce/Clinic Note [...] nodes of axilla and upper limb) plan tfwbmk-q-qmeu insertion for chemotherapy; informed consent obtained. Ancef [...] Tobacco Use:. House (more content not included)... [facility] [...] is eligible for hearing aids through his [facility] [employer] Benefit. Recommend a custom mold for the left ear. Ear impression taken of left ear without incident. Pt ordered mid level technology. Order completed in [employer] portal and pt scheduled for HAF 06-16-24 in [place]. documented in this encounter [facility] 03-28-2024 Note [place] [facility] Subjective Nabeel Tran is [...] HDL 42. TSH (more content not included)... [facility] 02-25-2024 Note [place] [facility] Subjective Nabeel Tran is [...] platelets 256, potassium (more content not included)... [facility] 02-15-2024 Hospital Discharge instructions Follow Up Care 02/15/2024 09:24:50 With:DONN ELLIS, Moody Aranda, URL Address: [facility] [address] , [place] [address]- When: Unknown [facility] 01-21-2024 Note Chief Complaint Referral *LUTs HPI [...] urethra. Follow these instructions at home: Take ioqh-kve-lbuspye and prescription medicines only as told by [...] provider. Document Revised: 02/08/2022 Document Reviewed: 02/08/2022 [email or web address] Patient Education 2022 [email or web address] Follow Up Care 09/13/2023 09:26:56 With:Moody POP MD, URL Address: [facility] [address], [place] [address]- When: Unknown [facility] Evaluation + Plan note No data available for this section [facility] Evaluation + Plan note Future Appointments Appointment Date:06/09/2024 10:45:00 AM Scheduled Provider:Moody POP MD Location:[facility] Appointment Type:URO Office Visit [facility] [place] Evaluation note No assessment inform ation available [facility] Work Phone: Evaluation note Diagnosis Sudden idiopathic [...] body region (CMS-HCC) documented [facility] this encounter [facility]* Diagnosis Lymphoma, unspecified body region, unspecified lymphoma type (CMS/HCC)- Primary Malnutrition, unspecified type (CMS/HCC) Polyneuropathy Unspecified hereditary and idiopathic peripheral neuropathy [facility] Diagnosis Polyneuropathy- Primary Unspecified hereditary and idiopathic peripheral neuropathy Poor balance Weakness of both lower extremities [facility] Diagnosis Polyneuropathy- Primary Unspecified hereditary and idiopathic peripheral neuropathy Poor balance Weakness of both lower extremities [facility] Diagnosis Polyneuropathy- Primary Unspecified hereditary and idiopathic peripheral neuropathy Poor balance Weakness of both lower extremities documented in this encounter [facility] note* Diagnosis Sensorineural hearing loss (SNHL) of both ears- Primary documented in this encounter [facility]* Diagnosis Hodgkin lymphoma, unspecified Hodgkin lymphoma type, unspecified body region (HCC)- Primary documented in this encounter [facility] note* Diagnosis Hodgkin lymphoma, unspecified Hodgkin lymphoma type, unspecified body region (HCC)- Primary documented in this encounter [facility] note* Diagnosis Hodgkin lymphoma, unspecified Hodgkin lymphoma type, unspecified body region (HCC)- Primary documented in this encounter [facility] note* Diagnosis Hodgkin lymphoma, unspecified Hodgkin lymphoma type, unspecified body region (HCC)- Primary documented in this encounter [facility] note* Diagnosis Hodgkin lymphoma, unspecified Hodgkin lymphoma type, unspecified body region (HCC)- Primary documented in this encounter [facility] note* Diagnosis Hodgkin lymphoma, unspecified Hodgkin lymphoma type, unspecified body region (HCC) documented in this encounter [facility] note* Diagnosis Hodgkin lymphoma, unspecified Hodgkin lymphoma type, unspecified body region (HCC)- Primary documented in this encounter [facility] Discharge instructions No data available for this section [facility] General Surgery [place] InstructionsNot on filedocumented in this encounter [facility] filedocumented in this encounter [facility] filedocumented in this [facility] No data available for this section [facility] reason for visit Narrative* Consultation (Routine) - Closed Specialty Diagnoses / Procedures Referred By Contac t Referred To Contact Neurology Diagnoses Unsteadiness on feet Weakness Procedures IA OFFICE/OUTPATIENT NEW LOW MDM 30 MINUTES Ailin Green MD [address] [place] [address] Phone: tel: fax: Nabeel New MD [address] [place] [address] Phone: tel: fax: Referral ID Status Reason Start Date Expiration Date V isits Requested Visits Authorized [id number] Closed Consult and Treat 05/16/2024 11/12/2024 1 1 [facility] N[facility]* Consultation (Routine) - Pending Review Specialty Diagnoses / Procedures Referred By Celine t Referred To Contact Physical Therapy Diagnoses Polyneuropathy Procedures IA OFFICE/OUTPATIENT NEW HIGH MDM 60 MINUTES Shelby Arenas, DO [address] [place] [address] Phone: tel: fax: [facility] [address] [address] Phone: tel: fax: Referral ID Status Reason Start Date Expiration Date Visits Requested Visits Authorized [id number] Pending Review Specialty Services Required 08/20/2024 02/03/2025 1 3 [facility] Narrative* Consultation (Routine) - Authorized Specialty Diagnoses / Procedures Referred By Celine t Referred To Contact Physical Therapy Diagnoses Polyneuropathy Procedures IA OFFICE/OUTPATIENT NEW HIGH MDM 60 MINUTES Shelby Arenas, DO [address] [place] [address] Phone: tel: fax: [facility] [address] [facility] [address] [place] [address] Phone: tel: fax: Referral ID Status Reason Start Date Expiration Date Visits Requested Visits Authorized [id number] Authorized Specialty Services Required 08/20/2024 02/03/2025 6 [...] and content) DATE CREATED AUTHOR 01/29/2018 [facility] DATE CREATED AUTHOR AUTHOR'S ORGANIZ ATION 09/01/2021 [facility] DATE CREATED AUTHOR AUTHOR'S ORGANIZ ATION 06/08/2024 [facility] DATE CREATED AUTHOR AUTHOR'S ORGANIZ ATION 06/11/2024 [facility] DATE CREATED AUTHOR AUTHOR'S ORGANIZ ATION 09/02/2024 [facility] DATE CREATED AUTHOR AUTHOR'S ORGANIZ ATION 09/16/2024 [facility] DATE CREATED AUTHOR AUTHOR'S ORGANIZ ATION 01/14/2025 [facility] Patient Care team informatio [...] Member Role Status Dates Jassi Alegria MD FACS Attending Provider Active Start: April [...] González Moon DO Primary Care Provider Active Ton Cylinder Inspector Relationship Specialty Start Date End Date Ailin Green MD [address] [place] [address] Referring Physician Family Medicine 05/16/24 Ailin Green MD [address] [place] [address] Referring Physician Family Medicine 05/26/24 Ton Cylinder Inspector Relationship Specialty Start Date End Date Ailin Green MD [address] [place] [address] Referring Physician Family Medicine 05/16/24 Ailin Green MD [address] [place], [place] [phone] Referring Physician Family Medicine 05/26/24 Ton Cylinder Inspector Relationship Specialty Start Date End Date Jah Damian MD [address] [place] [phone] PCP - General Family Medicine 06/16/24 Ailin Green MD [address] [place] [address] Referring Physician Family Medicine 05/16/24 Ailin Green MD [address] [place] [address] Referring Physician Family Medicine 05/26/24 Ton Cylinder Inspector Relationship Specialty Start Date End Date Jah Damian MD [address] [place] [phone] PCP - General Family Medicine 06/16/24 Ailin Green MD [address] [place] [address] Referring Physician Family Medicine 05/16/24 Ailin Green MD [address] [place] [address] Referring Physician Family Medicine 05/26/24 Ton Cylinder Inspector Relationship Specialty Start Date End Date Jah Damian MD [address] [place] [address] PCP - General Family Medicine 06/16/24 Ailin Green MD [address] [place] [phone] Referring Physician Family Medicine 05/16/24 Ailin Green MD [address] [place] [address] Referring Physician Family Medicine 05/26/24 Ton Cylinder Inspector Relationship Specialty Start Date End Date Jah Damian MD [address] [place] [phone] PCP - General Family Medicine 06/16/24 Ailin Green MD [address] [place] [address] Referring Physician Family Medicine 05/16/24 Ailin Green MD [address] [place] [address] Referring Physician Family Medicine 05/26/24 Ton Cylinder Inspector Relationship Specialty [place] [address] [place] [address], [place] [phone] PCP - General Family Medicine 06/16/24 [place] [address] [place] [address] Referring Physician Family Medicine 05/16/24 Ailin Green MD [address] [place], [place] [phone] Referring Physician Family Medicine 05/26/24 Ton Cylinder Inspector Relationship Specialty Start Date End Date Jah Damian MD [address] [place], [place] [phone] PCP - General Family Medicine 06/16/24 Ailin Green MD [address] [place], [place] [phone] Referring Physician Family Medicine 05/16/24 Ailin Green MD [address] [place] [address] Referring Physician Family Medicine 05/26/24 Ton Cylinder Inspector Relationship Specialty Start Date End Date Jah Damian MD [address] [place], [place] [phone] PCP - General Family Medicine 06/16/24 Ailin Green MD [address] [place] [address] Referring Physician Family Medicine 05/16/24 Ailin Green MD [address] [place] [address] Referring Physician Family Medicine 05/26/24 Ton Cylinder Inspector Relationship Specialty Start Date End Date Ailin Green MD [address] [place] [address] Referring Physician Family Medicine 05/16/24 Ailin Green MD [address] [place] [address] Referring Physician Family Medicine 05/26/24 Shelby Arenas DO [address] [address] Referring Physician Neurology 08/07/24 Ton Cylinder Inspector Relationship Specialty Start Date End Date Ailin Green MD [address] [place] [address] Referring Physician Family Medicine 05/16/24 [place] [address] [place] [address] Referring Physician Family Medicine 05/26/24 Shelby Arenas DO [address] [address] Referring Physician Neurology 08/07/24 Ton Cylinder Inspector Relationship Specialty [place] [address] [place] [address] Referring Physician Family Medicine 05/16/24 Ailin Green MD [address] [place] [address] Referring Physician Family Medicine 05/26/24 Shelby Arenas DO [address] [address] Referring Physician Neurology 08/07/24 Ton Cylinder Inspector Relationship Specialty Start Date End Date Ailin Green MD [address] [place] [address] Referring Physician Family Medicine 05/16/24 Ailin Green MD [address] [place] [address] Referring Physician Family Medicine 05/26/24 Shelby Arenas DO [address] [address] Referring Physician Neurology 08/07/24 Ton Cylinder Inspector Relationship Specialty Start Date End Date Ailin Green MD [address] [place] [address] Referring Physician Family Medicine 05/16/24 [place] [address] [place] [address] Referring Physician Family Medicine 05/26/24 Shelby Arenas DO [address] [address] Referring Physician Neurology 08/07/24 Ton Cylinder Inspector Relationship Specialty Start [place] [address] [place] [address] Referring Physician Family Medicine 05/16/24 Ailin Green MD [address] [place] [address] Referring Physician Family Medicine 05/26/24 Shelby Arenas DO [address] [address] Referring Physician Neurology 08/07/24 Ton Cylinder Inspector Relationship Specialty Start Date End Date Ailin Green MD [address] [place] [address] Referring Physician Family Medicine 05/16/24 Ailin Green MD [address] [place] [address] Referring Physician Family Medicine 05/26/24 Shelby Arenas DO [address] [address] Referring Physician Neurology 08/07/24 Ton Cylinder Inspector Relationship Specialty Start [place] [address] [place] [address] Referring Physician Family Medicine 05/16/24 [place] [address] [place] [address] Referring Physician Family Medicine 05/26/24 Shelby Arenas DO [address] [address] Referring Physician Neurology 08/07/24 Ton Cylinder Inspector Relationship Specialty Start [place] [address] [place] [address] Referring Physician Family Medicine 05/16/24 Ailin Green MD [address] [place] [address] Referring Physician Family Medicine 05/26/24 Shelby Arenas DO [address] [address] Referring Physician Neurology 08/07/24 Ton Cylinder Inspector Relationship Specialty Start Date End Date Ailin Green MD [address] [place] [address] Referring Physician Family Medicine 05/16/24 Ailin Green MD [address] [place] [address] Referring Physician Family Medicine 05/26/24 Shelby Arenas DO [address] [phone] Referring Physician Neurology 08/07/24 Ton Cylinder Inspector Relationship Specialty Start Date End Date Margo Sch[address] [place] [address] Registered Dietitian Nutrition 09/26/24 Ton Cylinder Inspector Relationship Specialty Start Date End Date Margo Schumacher [address] [place] [address] Registered Dietitian Nutrition 09/26/24 Ton Cylinder Inspector Relationship Specialty Start Date End Date Margo Schumacher RD [address] [place], [place] [phone] Registered Dietitian Nutrition 09/26/24 Ton Cylinder Inspector Relationship Specialty Start Date End Date Margo Schumacher [address] [place] [address] Registered Dietitian Nutrition 09/26/24 Ton Cylinder Inspector Relationship Specialty Start Date End Date Margo Schumacher RD [address] [place], [place] [phone] Registered Dietitian Nutrition 09/26/24 Ton Cylinder Inspector Relationship Specialty Start Date End Date Margo Schumacher [address] [place] [address] Registered Dietitian Nutrition 09/26/24 Ton Cylinder Inspector Relationship Specialty Start Date End Date Margo Schumacher RD [address] [place] [address] Registered Dietitian Nutrition 09/26/24 Ton Cylinder Inspector Relationship Specialty Start Date End Date Margo Schumacher [address] [place] [address] Registered Dietitian Nutrition 09/26/24 Ton Cylinder Inspector Relationship Specialty Start Date End Date Margo Schumacher [address] [place] [address] Registered Dietitian Nutrition 09/26/24 Ton Cylinder Inspector Relationship Specialty Start Date End Date Ailin Green, RADIATION ONCOLOGY THERAPIST [address] [place], [place] [phone] PCP - General Internal Medicine 12/18/[address] [place] [address] Registered Dietitian Nutrition 09/26/24 Goals (unrecognized section and content) Goals may be documented in a n alternate section Reason for Visit (unrecogniz ed section and content) Reason Comments Cerumen Impaction Bilateral Hearing Loss Laterality Reason Onset Date Comments Need office notes faxed 08/13/2024 Reason Comments Hearing Problem Reason Onset Date Comments Check PT status 09/23/2024 Reason Comments Patient Education Reason Comments Nutrition Telephone Reason Comments Future Appointment Schedule Simulation Reason Comments Lymphoma Reason Comments Radiotherapy On-treatment Visit Reason Comments Nutrition Telephone No answer Reason Comments Hodgkin's Disease Source Comments (unrecognize d section and content) In the event this informatio n is protected by the Federal Confidentiality of Alcohol and Drug Abuse Patient Records regulations: The Federal rules restrict any use of the information to criminally investigate or prosecute any alcohol or drug abuse patient.[facility] HealthIn the event this information is protected by the Federal Confidentiality of Alcohol and Drug Abuse Patient Records regulations: The Federal rules restrict any use of the information to criminally investigate or prosecute any alcohol or drug abuse patient.[facility] HealthIn the event this information is protected by the Federal Confidentiality of Alcohol and Drug Abuse Patient Records regulations: The Federal rules restrict any use of the information to criminally investigate or prosecute any alcohol or drug abuse patient.[facility] HealthIn the event this information is protected by the Federal Confidentiality of Alcohol and Drug Abuse Patient Records regulations: The Federal rules restrict any use of the information to criminally investigate or prosecute any alcohol or drug abuse patient.[facility] HealthIn the event this information is protected by the Federal Confidentiality of Alcohol and Drug Abuse Patient Records regulations: The Federal rules restrict any use of the information to criminally investigate or prosecute any alcohol or drug abuse patient.[facility] HealthIn the event this information is protected by the Federal Confidentiality of Alcohol and Drug Abuse Patient Records regulations: The Federal rules restrict any use of the information to criminally investigate or prosecute any alcohol or drug abuse patient.[facility] HealthIn the event this information is protected by the Federal Confidentiality of Alcohol and Drug Abuse Patient Records regulations: The Federal rules restrict any use of the information to criminally investigate or prosecute any alcohol or drug abuse patient.[facility] HealthIn the event this information is protected by the Federal Confidentiality of Alcohol and Drug Abuse Patient Records regulations: The Federal rules restrict any use of the information to criminally investigate or prosecute any alcohol or drug abuse patient.[facility] HealthIn the event this information is protected by the Federal Confidentiality of Alcohol and Drug Abuse Patient Records regulations: The Federal rules restrict any use of the information to criminally investigate or prosecute any alcohol or drug abuse patient.[facility] HealthIn the event this information is protected by the Federal Confidentiality of Alcohol and Drug Abuse Patient Records regulations: The Federal rules restrict any use of the information to criminally investigate or prosecute any alcohol or drug abuse patient.[facility] HealthIn the event this information is protected by the Federal Confidentiality of Alcohol and Drug Abuse Patient Records regulations: The Federal rules restrict any use of the information to criminally investigate or prosecute any alcohol or drug abuse patient.[facility] HealthIn the event this information is protected by the Federal Confidentiality of Alcohol and Drug Abuse Patient Records regulations: The Federal rules restrict any use of the information to criminally investigate or prosecute any alcohol or drug abuse patient.[facility] HealthIn the event this information is protected by the Federal Confidentiality of Alcohol and Drug Abuse Patient Records regulations: The Federal rules restrict any use of the information to criminally investigate or prosecute any alcohol or drug abuse patient.[facility] HealthIn the event this information is protected by the Federal Confidentiality of Alcohol and Drug Abuse Patient Records regulations: The Federal rules restrict any use of the information to criminally investigate or prosecute any alcohol or drug abuse patient.[facility] HealthIn the event this information is protected by the Federal Confidentiality of Alcohol and Drug Abuse Patient Records regulations: The Federal rules restrict any use of the information to criminally investigate or prosecute any alcohol or drug abuse patient.[facility] FOR RECORDS PERTAINING TO PATIENTS WHO ARE [...] BE BASED ON THE PRIMARY CLINICAL RECORDS. [facility] [employer] [facility]. provides no warranty or guarantee of the accuracy or completeness of information in this document.
[2025-02-20 13:53] LABS: Alanine Aminotransferase 44 U/L (16-63); Albumin Globulin Ratio 1.1; Albumin Level 3.6 g/dL (3.4-5.0); Alkaline Phosphatase 85 U/L (46-116); Anion Gap 10.9; Aspartate Amino Transferase 30 U/L (15-37); Blood Urea Nitrogen 20.0 mg/dL (7.0-18.0); Calcium 9.3 mg/dL (8.5-10.1); Carbon Dioxide 32.6 mmol/L (21.0-32.0); Chloride 106 mmol/L (98-107); Estimated GFR (African America >60 (>=60 mL/min/1.73m^2); Estimated GFR (Non-African Ame >60 (>=60 mL/min/1.73m^2); Globulin 3.4 g/dL; Glucose 121 mg/dL (74-106); Potassium 4.5 mmol/L (3.5-5.1); Sodium 145 mmol/L (136-145); Total Protein 7.0 g/dL (6.4-8.2)
== END 2025-02-20 13:20 | disposition home or self-care (01) ==
LOC: LAB 13:19
PROVIDERS: PCP Nurse Practitioner Family; Visit Provider Internal Medicine Hematology & Oncology
DX: C85.11 Unspecified B-cell lymphoma, lymph nodes of head, face, and neck (principal); R74.01 Elevation of levels of liver transaminase levels; D50.9 Iron deficiency anemia, unspecified; D64.9 Anemia, unspecified; C81.18 Nodular sclerosis Hodgkin lymphoma, lymph nodes of multiple sites; R11.2 Nausea with vomiting, unspecified; D70.1 Agranulocytosis secondary to cancer chemotherapy; Z79.899 Other long term (current) drug therapy; I34.0 Nonrheumatic mitral (valve) insufficiency; I35.0 Nonrheumatic aortic (valve) stenosis; I35.1 Nonrheumatic aortic (valve) insufficiency
CPT/HCPCS: 36415; 70492; 71270; 80053; 83615; 85025; 93306; Q9967

== ENCOUNTER 2025-02-20 13:25 | Outpatient (OUT) | payer MEDICARE, SELFPAY ==
--- OUTSIDE RECORDS SUMMARY | 2025-01-26 05:00 | XMS_ITS ---
Author Organization The [facility] in [place] Address [address] [place] [address] Care Team Providers Care Tree Fruit And Nut Farming Supervisor Name Role Phone Ailin España Primary Care Provider Sonia Donnelly Unavailable [phone] REASON FOR VISIT CL.5 Encounters Encounter Location Date Provider Diagnosis [facility] [address] [place] [phone] 01/26/2025 Sonia Donnelly Plan Of Treatment Next Appt Details Provider Name:Sonia Donnelly , 06/09/2025 11:00:00 AM, [address] [place] [address], [phone], Progress Notes * Hoang BONILLA WDOB: [birth year] (69 yo M)Acc No.[id number]:01/26/2025 UNLOCKED PROGRESS NOTE Progress Note Patient: Hoang IVORY Provider: Oneyda Donnelly M.D. :1955 A ge:69 Y S ex:Male Date:01/26/2025 Address:[address], [id number] Pcp:Ailin España Subjective: * Chief Complaints: * 1 . CL.5. * Medical History: Objective: * Vitals: Assessment: Plan: * Treatment: * * Electronic signature of Merly Donnelly MD, [id number] on 02/20/2025 at 01:27 PM EDT Sign off status: Pending Visit Status: P EN (Pending) * Provider: Oneyda Donnelly M.D. Date: 0 01/26/2025 Generated for Edwin perez/Asim/Griselda on: 0 02/20/2025 01:27 PM EDT
--- OUTSIDE RECORDS SUMMARY | 2025-02-17 05:30 | XMS_ITS ---
Author Organization The [facility] in [place] Address [address] [place] [address] Care Team Providers Care Exhauster Name Role Phone Ailin España Primary Care Provider [phone] Sonia Donnelly Unavailable [phone] REASON FOR VISIT MD Encounters Encounter Location Date Provider Diagnosis [facility] [address] [place] [address] 02/17/2025 Sonia Donnelly Plan Of Treatment Next Appt Details Provider Name:Sonia Donnelly , 06/09/2025 11:00:00 AM, [address] [place] [address], [phone], Progress Notes * KIMMAIDAYoni MCKEONen WDOB: [birth year] (69 yo M)Acc No.[id number]:02/17/2025 UNLOCKED PROGRESS NOTE Progress Notes Patient: Hoang IVORY Provider: Oneyda Donnelly M.D. :1955 A ge:69 Y S ex:Male Date:02/17/2025 Address:[address] [place], [id number] Pcp:Ailin España Subjective: * Chief Complaints: * 1 . MD. * Medical History: Objective: * Vitals: Assessment: Plan: * Treatment: * * Electronic signature of Merly Donnelly MD, [id number] on 02/20/2025 at 01:27 PM EDT Sign off status: Pending Visit Status: P EN (Pending) * Provider: Oneyda Donnelly M.D. Date: 02/17/2025 Generated for Edwin perez/Asim/Griselda on: 02/20/2025 01:27 PM EDT
--- OUTSIDE RECORDS SUMMARY | 2025-02-20 13:28 | XMS_ITS | Patient Health Record ---
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 Upholsterer Name Role Phone Ailin Green Primary Care Provider [phone] Sonia Donnelly Unavailable [phone] Allergies No Known Allergies Results Component Value Reference Range Notes IRON Reviewed date:04/18/2024 01:44:59 PM Interpretation: Performing Lab: Notes/Report: [facility] , Iron 21.0 65.0-175.0 ug/dL Performing Lab: see note ML - [facility] FREE T3 Reviewed date:03/24/2024 12:38:02 PM Interpretation: Performing Lab: Notes/Report: [facility] , Free T3 1.25 2.18-3.98 pg/mL Performing Lab: see note - [facility] LB INSULIN Reviewed date:03/24/2024 12:38:01 PM Interpretation: Performing Lab: Notes/Report: [facility] , Insulin 6.7 2.6-24.9 uIU/mL Performed at: - [facility] [address] [id number] Testboard Operator: Neville Long PhD, Phone: [phone] Performing Lab: see note - [facility] LB T4 Reviewed date:03/24/2024 12:38:02 PM Interpretation: Performing Lab: Notes/Report: [facility] , T4 Thyroxine 5.50 4.50-12.10 ug/dL Performing Lab: see note ML - [facility] LB TSH Reviewed date:03/24/2024 12:38:02 PM Interpretation: Performing Lab: Notes/Report: [facility] , Thyroid Stimulating Hormone 1.084 0.358-3.740 uIU/mL Performing Lab: see note ML - [facility] LB US extremity nonvascular LT Reviewed date:03/25/2024 02:21:33 PM Interpretation: Performing Lab: Notes/Report: Source Facility: [facility] [place] [address] [place] [address] Ultrasound Report Signed Patient: NABEEL TRAN MR#: [id number] : 1955 Acct:[id number] Age/Sex: 68 / M ADM Date: 03/25/24 Loc: US Attending Dr: AILIN GREEN Ordering Physician: AILIN GREEN Date of Service: 03/25/24 Procedure(s): US extremity nonvascular RT Accession Number(s): [id number] cc: AILIN GREEN [place] [address] Patient Name: NABEEL TRAN MRN: [id number] date: 1955 Sex: M Assigned Patient Location: Current Patient Location: US Accession/Order Number: [id number] Exam Date: 03/25/2024 09:30 Report Date: 03/25/2024 12:13 At the request of: AILIN GREEN Procedure: US extremity nonvascular RT EXAM: US extremity nonvascular RT. HISTORY: Right Armpit Lump R22.31. COMPARISON: None. TECHNIQUE: Gil-scale and color Doppler imaging was used to evaluate the area of interest. FINDINGS: Within the axillary region there are enlarged heterogeneous predominantly hypoechoic masses, the largest of which measures 5.8 x 4.2 x 3.7 cm. A second measures 3.6 x 3.4 x 2.5 cm. These most likely represent enlarged axillary lymph nodes. Recommend CT scan of the chest for further evaluation. US/US extremity nonvascular RT IMPRESSION: Probable enlarged lymph nodes at the area of interest. Recommend CT of the chest for further evaluation. Electronically authenticated by: Barrett ROSENBERG Date: 03/25/2024 12:13 Dictated By: Barrett Rosenberg M.D. Signed By: 03/25/241214 DD/ 12 TD/TT: Groundwater Monitoring Technician: [address] [address] Ultrasound Report Signed Patient: RUDDY TRAN MR#: [id number] : 1955 Acct:[id number] Age/Sex: 68 / M ADM Date: 03/25/24 Loc: US Attending Dr: AILIN GREEN Ordering Physician: AILIN GREEN Date of Service: 03/25/24 Procedure(s): US extremity nonvascular RT Accession Number(s): [id number] cc: AILIN GREEN [place] [address] Patient Name: NABEEL TRAN MRN: [id number] date: 1955 Sex: M Assigned Patient Location: US Current Patient Loca tion: US Accession/Order Numb er: [id number] Exam Date: 03/25/2024 09:30 Report Date: 03/25/2024 12:13 At the request of: AILIN GREEN Procedure: US extrem ity nonvascular RT EXAM: US extremity nonvascular RT. HISTORY: Right Armpi t Lump R22.31. COMPARISON: None. TECHNIQUE: Gil-scal e and color Doppler imaging was used to evaluate the area of interest. FINDINGS: Within the axillary region there are enlarged heterogeneous predominantly hypoec hoic masses, the largest of which measures 5.8 x 4.2 x 3.7 cm. A second measure s 3.6 x 3.4 x 2.5 cm. These most likely represent enlarged axillary lymph nodes . Recommend CT scan of the chest for further evaluation. U S/US extremity nonvascular RT IMPRESSION: Probable enlarged ly mph nodes at the area of interest. Recommend CT of the chest for further evaluation. Electronically authenticated by: Barrett ROSENBERG Date: 03/25/2024 12:13 Dictated By: Barrett Rosenberg M.D. Signed By: 03/25/241214 DD/ 1213 TD/TT: Groundwater Monitoring Technician: CT CHEST W CON Reviewed date:04/01/2024 10:35:45 AM Interpretation: Performing Lab: Notes/Report: Source Facility: [place] [address] CT Scan Report Signed Patient: NABEEL TRAN MR#: [id number] : 1955 Acct:[id number] Age/Sex: 68 / M ADM Date: 03/29/24 Loc: CT Attending Dr: AILIN GREEN Ordering Physician: AILIN GREEN Date of Service: 03/29/24 Procedure(s): CT chest w con Accession Number(s): [id number] cc: AILIN GREEN [place] [address] Patient Name: NABEEL TRAN MRN: [id number] date: 1955 Sex: M Assigned Patient Location: CT Current Patient Location: Accession/Order Number: [id number] Exam Date: 03/29/2024 10:38 Report Date: 04/01/2024 05:20 At the request of: AILIN GREEN Procedure: CT chest w con EXAMINATION: CT chest w con HISTORY: ENLARGED LYMPH NODE ; right axilla mass/lump for several months COMPARISON: No relevant comparison available. TECHNIQUE: Multi-planar CT images were obtained without and/or with IV contrast as indicated by examination type. Axial, Coronal, and Sagittal images. Dose reduction techniques were achieved by using automated exposure control and/or adjustment of mA and/or kV according to patient size and/or use of iterative reconstruction technique. FINDINGS: LUNGS: Calcified granulomas within posterior left lung base. No acute infiltrates or suspicious nodules. PLEURA: No mass, effusion, or pneumothorax. VASCULATURE: No abnormality. MAGALIE: Calcified left hilar lymph nodes. MEDIASTINUM: Calcified left hilar lymph nodes. CARDIAC: No enlargement or pericardial thickening.. Coronary artery calcifications: AORTA: No aneurysm or dissection. CHEST WALL: Numerous enlarged lymph nodes within right axilla, largest is 6.0 cm in long axis. BONES: No bone lesion or fracture. LIMITED ABDOMEN: Elevated left hemidiaphragm. Limited images of the upper abdomen. OTHER: Negative. CT/CT chest w con IMPRESSION: 1. Right axilla marked lymphadenopathy of uncertain etiology. No involvement of the lower neck, supraclavicular, or mediastinum. No appreciable mass of the chest wall. Consider ultrasound-guided tissue sampling. 2. Chronic granulomatous disease. 3. Elevated left hemidiaphragm; positioning versus diaphragm paralysis. Electronically authenticated by: NABEEL STRANGE Date: 04/01/2024 05:20 Dictated By: Nabeel Strange M.D. Signed By: 04/01/24521 DD/ 9 TD/TT: Groundwater Monitoring Technician: [place] [id number] CT Scan Report Signed Patient: RUDDY TRAN MR#: [id number] : 1955 Acct:[id number] Age/Sex: 68 / M ADM Date: 03/29/24 Loc: CT Attending Dr: AILIN GREEN Ordering Physician: AILIN GREEN Date of Service: 03/29/24 Procedure(s): CT is[place] st w con Accession Number(s): [id number] cc: AILIN GREEN [address] [address] Patient Name: NABEEL TRAN MRN: [id number]:[id number] date: 1955 Sex: M Assigned Patient Location: CT Current Patient Location: Accession/Order Numb er: [id number] Exam Date: 03/29/2024 10:38 Report Date: 04/01/2024 05:20 At the request of: AILIN GREEN Procedure: CT chest w con EXAMINATION: CT ches t w con HISTORY: ENLARGED LY MPH NODE ; right axilla mass/lump for several months COMPARISON: No relev ant comparison available. TECHNIQUE: Multi-nehal yulissa CT images were obtained without and/or with IV contrast as indicated by examination type. Axial, Coronal, and Sagittal images. Dose reduction techniques were achieved by using automated exposure control and/or adjustment of mA and /or kV according to patient size and/or use of iterative reconstruction technique. FINDINGS: LUNGS: Calcified granulomas within posterior left lung base. No acute infiltrates or suspi cious nodules. PLEURA: No mass, effusion, or pneumothorax. VASCULATURE: No abnormality. MAGALIE: Calcified left hilar lymph nodes. MEDIASTINUM: Calcifi ed left hilar lymph nodes. CARDIAC: No enlargem ent or pericardial thickening.. Coronary artery calcifications: AORTA: No aneurysm o r dissection. CHEST WALL: Numerous enlarged lymph nodes within right axilla, largest is 6.0 cm in long axis. BONES: No bone lesio n or fracture. LIMITED ABDOMEN: Jennifer vated left hemidiaphragm. Limited images of the upper abdomen. OTHER: Negative. C T/CT chest w con IMPRESSION: 1. Right axilla tony ed lymphadenopathy of uncertain etiology. No involvement of the lower neck, supraclavicular, or mediastinum. No appreciable mass of the chest wall. Consider ultrasound-guided tissue sampling. 2. Chronic granuloma tous disease. 3. Elevated left hemidiaphragm; positioning versus diaphragm paralysis. Electronically authenticated by: NABEEL STRANGE Date: 04/01/2024 05:20 Dictated By: Nabeel Strange M.D. Signed By: 04/01/2422 DD/ TD/TT: Groundwater Monitoring Technician: IVETTE T3 Reviewed date:04/18/2024 01:44:59 PM Interpretation: Performing Lab: Notes/Report: [facility] , Free T3 1.01 2.18-3.98 pg/mL Performing Lab: see note ML - [facility] LB GLYCOHEMOGLOBIN A1C Reviewed date:04/18/2024 01:44:59 PM Interpretation: Performing Lab: Notes/Report: [facility] , Glycohemoglobin A1C 11.2 4.5-6.2 % ADA RECOMMENDED LIMIT 4.0 - 6.0 ADA THERAPEUTIC TARGET < 7.0 ACTION SUGGESTED > 7.0 Estimated Average Glucose 275 Performing Lab: see note ML - [facility] LB PROF 14(COMP METB) Reviewed date:04/18/2024 01:44:59 PM Interpretation: Performing Lab: Notes/Report: [facility] , Sodium 130 136-145 mmol/L Potassium 4.2 3.5-5.1 mmol/L Chloride 93 98-107 mmol/L Carbon Dioxide 34.5 21.0-32.0 mmol/L Anion Gap 6.7 Glucose 169 74-106 mg/dL Blood Urea Nitrogen 12.0 7.0-18.0 mg/dL Creatinine 0.95 0.70-1.30 mg/dL Estimated GFR ( Samantha >60 >=60 Estimated GFR (Non- Aury >60 >=60 BUN Creatinine Ratio 12.6 Calcium 9.7 8.5-10.1 mg/dL Bilirubin Total 0.7 0.2-1.0 mg/dL Aspartate Amino Transferase 82 15-37 U/L Alanine Aminotransferase 148 16-63 U/L Alkaline Phosphatase 312 46-116 U/L Total Protein 8.1 6.4-8.2 g/dL Albumin Level 1.9 3.4-5.0 g/dL Globulin 6.2 Albumin Globulin Ratio 0.3 Performing Lab: see note ML - [facility] LB T4 Reviewed date:04/18/2024 01:44:59 PM Interpretation: Performing Lab: Notes/Report: [facility] , T4 Thyroxine 6.80 4.50-12.10 ug/dL Performing Lab: see note ML - [facility] LB TSH Reviewed date:04/18/2024 01:44:59 PM Interpretation: Performing Lab: Notes/Report: [facility] , Thyroid Stimulating Hormone 0.919 0.358-3.740 uIU/mL Performing Lab: see note ML - [facility] LB Manual Differential Reviewed date:04/18/2024 01:44:59 PM Interpretation: Performing Lab: Notes/Report: [facility] , Segmented Neutrophils % Manual 73.0 43.0-75.0 Lymphocytes Percent Manual 15.0 20.5-60.0 % Monocytes Percent Manual 11.0 1.7-12.0 % Eosinophils Percent Manual 1.0 0.9-7.0 % Basophils Percent Manual 0.0 0.2-2.0 % Segmented Neut Absolute Manual 7.73 1.4-6.5 10 3/uL Lymphocytes Absolute Manual 1.59 1.20-3.80 10 3/uL Monocytes Absolute Manual 1.16 0.30-0 .80 10 3/uL Eosinophils Absolute Manual 0.10 0.00-0.70 10 3/uL Basophils Abs Manual 0.00 0.00-0.10 1 0 3/uL Performing Lab: see note - [facility] LB PROF 14(COMP METB) Reviewed date:04/21/2024 09:21:08 PM Interpretation: Performing Lab: Notes/Report: [facility] , Sodium 125 136-145 mmol/L Potassium 4.4 3.5-5.1 mmol/L Chloride 90 98-107 mmol/L Carbon Dioxide 32.5 21.0-32.0 mmol/L Anion Gap 6.9 Glucose 297 74-106 mg/dL Blood Urea Nitrogen 13.0 7.0-18.0 mg/dL Creatinine 1.09 0.70-1.30 mg/dL Estimated GFR ( Samantha >60 >=60 Estimated GFR (Non- Aury >60 >=60 BUN Creatinine Ratio 11.9 Calcium 9.4 8.5-10.1 mg/dL Bilirubin Total 0.7 0.2-1.0 mg/dL Aspartate Amino Transferase 124 15-37 U/L Alanine Aminotransferase 159 16-63 U/L Alkaline Phosphatase 326 46-116 U/L Total Protein 8.2 6.4-8.2 g/dL Albumin Level 1.8 3.4-5.0 g/dL Globulin 6.4 Albumin Globulin Ratio 0.3 Performing Lab: see note - [facility] LB Osmolality Reviewed date:04/25/2024 08:27:07 AM Interpretation: Performing Lab: Notes/Report: [facility] , Osmolality 283 280-301 mOsmol/kg Performed at: [address] [id number] Testboard Operator: Ash Wilcox MD, Phone: [phone] Performing Lab: see note [facility] Cortisol Reviewed date:04/22/2024 09:19:24 AM Interpretation: Performing Lab: Notes/Report: [facility] , Cortisol 32.2 6.2-19.4 ug/dL Please Note: The reference interval and flagging for this test is for an AM collection. If this is a PM collection please use: Cortisol PM: 2.3-11.9 Performed at: [address] [id number] Testboard Operator: Neville Long PhD, Phone: [phone] Performing Lab: see note LC - [facility] LB ECG 12 lead Reviewed date:04/22/2024 07:36:22 AM Interpretation: Performing Lab: Notes/Report: Source Facility: [place] [address] [place] [address] Electrocardiograph Report Signed Patient: NABEEL TRAN MR#: [id number] : 1955 Acct:[id number] Age/Sex: 68 / M ADM Date: 04/21/24 Loc: MS 231-[address]: Jah Damian M.D. 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 Signed By: 04/21/242311 DD/ 1326 TD/TT: Groundwater Monitoring Technician: [place] [address] Electrocardiograph Report Signed Patient: RUDDY TRAN MR#: [id number] : 1955 Acct:[id number] Age/Sex: 68 / M ADM Date: 04/21/24 Loc: MS 231-[address]: Chioma Damian M.D. 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 Signed By: 04/21/242311 DD/ 132 TD/TT: Groundwater Monitoring Technician: CT head/brain wo con Reviewed date:04/21/2024 02:58:40 PM Interpretation: Performing Lab: Notes/Report: Source Facility: [place] [address] CT Scan Report Signed Patient: NABEEL TRAN MR#: [id number] : 1955 Acct:[id number] Age/Sex: 68 / M ADM Date: 04/21/24 Loc: ER Attending Dr: Ordering Physician: Lauro Altamirano Date of Service: 04/21/24 Procedure(s): CT head/brain wo con Accession Number(s): [id number] cc: AILIN GREEN [place] [address] Patient Name: NABEEL TRAN MRN: [id number] date: 1955 Sex: M Assigned Patient Location: ER Current Patient Location: ER Accession/Order Number: [id number] Exam Date: 04/21/2024 13:54 Report Date: 04/21/2024 14:23 At the request of: LAURO ALTAMIRANO Procedure: CT head/brain wo con CT head/brain wo con, 04/21/2024 1:54 PM EDT INDICATION: Ataxia, fatigue COMPARISON: There is no appropriate prior study for comparison. TECHNIQUE: Axial CT images of the brain from skull base to vertex, including portions of the face and sinuses, were obtained without contrast . Multiplanar reformatted images were generated and reviewed as needed. Dose reduction techniques were achieved by using automated exposure control and/or adjustment of mA and/or kV according to patient size and/or use of iterative reconstruction technique. FINDINGS: The cerebral sulci as well as ventricular system are appropriate for age. There is no intracranial mass, mass effect, midline shift, intra or extra-axial fluid collection or hemorrhage. A retention cyst within the left maxillary sinus is noted. The visualized portions of orbits, left mastoid air cells as well as paranasal sinuses are unremarkable. Status post right partial mastoidectomy and right suboccipital craniotomy. There is no suspicious osteolytic or osteoblastic lesion. CT/CT head/brain wo con IMPRESSION: No acute intracranial process is noted. Electronically authenticated by: CONNER COLBY Date: 04/21/2024 14:23 Dictated By: Conner Colby M.D. Signed By: 04/21/24 1425 DD/ 1423 TD/TT: Groundwater Monitoring Technician: [place] [address] CT Scan Report Signed Patient: RUDDY TRAN MR#: [id number] : 1955 Acct:[id number] Age/Sex: 68 / M ADM Date: 04/21/24 Loc: ER Attending Dr: Ordering Physician: Lauro Altamirano Date of Service: 04/21/24 Procedure(s): CT head/brain wo con Accession Number(s): [id number] cc: AILIN GREEN [address] [address] Patient Name: NABEEL TRAN MRN: [id number] date: 1955 Sex: M Assigned Patient Location: ER Current Patient Loca tion: ER Accession/Order Numb er: [id number] Exam Date: 04/21/2024 13:54 Report Date: 04/21/2024 14:23 At the request of: LAURO ALTAMIRANO Procedure: CT head/b rain wo con CT head/brain wo con , 04/21/2024 1:54 PM EDT INDICATION: Ataxia, fatigue COMPARISON: There is no appropriate prior study for comparison. TECHNIQUE: Axial CT images of the brain from skull base to vertex, including portions of the face and sinuses, were obtained without contrast . Multiplanar reformatted images w ere generated and reviewed as needed. Dose reduction techn iques were achieved by using automated exposure control and/or adjustment of mA and/or kV according to patient size and/or use of iterative reconstruc tion technique. FINDINGS: The cerebral sulci a s well as ventricular system are appropriate for age. There is no intracra nial mass, mass effect, midline shift, intra or extra-axial fluid collection or hemorrhage. A retention cyst wit hin the left maxillary sinus is noted. The visualized porti ons of orbits, left mastoid air cells as well as paranasal sinuses are unremark able. Status post right partial mastoidectomy and right suboccipital craniotomy. There is no suspicio us osteolytic or osteoblastic lesion. C T/CT head/brain wo con IMPRESSION: No acute intracrania l process is noted. Electronically authenticated by: CONNER COLBY Date: 04/21/2024 14:23 Dictated By: Angelina Colby M.D. Signed By: 04/21/24 1425 DD/ 1423 TD/TT: Groundwater Monitoring Technician: AMMONIA Reviewed date:04/21/2024 09:21:08 PM Interpretation: Performing Lab: Notes/Report: [facility] , Ammonia <10 11-32 umol/L Performing Lab: see note ML - [facility] LB AMYLASE Reviewed date:04/21/2024 09:21:08 PM Interpretation: Performing Lab: Notes/Report: [facility] , Amylase 48 25-115 U/L Performing Lab: see note ML - [facility] LB BNP Reviewed date:04/21/2024 09:21:08 PM Interpretation: Performing Lab: Notes/Report: [facility] , NT Pro B Type Natriuretic Pept 441.0 <=900.0 pg/mL Performing Lab: see note ML - [facility] LB LIPASE Reviewed date:04/21/2024 09:21:08 PM Interpretation: Performing Lab: Notes/Report: [facility] , Lipase 58.0 16.0-77.0 U/L Performing Lab: see note ML - [facility] LB MAGNESIUM Reviewed date:04/21/2024 09:21:08 PM Interpretation: Performing Lab: Notes/Report: [facility] , Magnesium 1.8 1.8-2.4 mg/dL Performing Lab: see note ML - [facility] LB PTT Reviewed date:04/21/2024 09:21:08 PM Interpretation: Performing Lab: Notes/Report: [facility] , Partial Thromboplastin Time 37.1 22.3-36.2 sec Performing Lab: see note ML - [facility] LB Prothrombin Time INR Reviewed date:04/21/2024 09:21:08 PM Interpretation: Performing Lab: Notes/Report: [facility] , Prothrombin Time 12.2 9.0-11.6 sec INR 1.17 DESIRED INR: 2.0-3.0 CONDITIONS NOT LISTED BELOW 2.5-3.5 FOR PROSTHETIC HEART VALVE REPLACEMENT 2.5-3.5 RECURRENT THROMBOSIS Performing Lab: see note ML - [facility] CT abdomen pelvis w con Reviewed date:04/21/2024 09:21:08 PM Interpretation: Performing Lab: Notes/Report: Source Facility: [place] [address] [place] [address] CT Scan Report Signed Patient: NABEEL TRAN MR#: [id number] : 1955 Acct:[id number] Age/Sex: 68 / M ADM Date: 04/21/24 Loc: MS 231-[address]: Jah Damian M.D. Ordering Physician: Jah Damian M.D. Date of Service: 04/21/24 Procedure(s): CT abdomen pelvis w con Accession Number(s): [id number] cc: AILIN GREEN [place] [address] Patient Name: NABEEL TRAN MRN: [facility]:[id number] date: 1955 Sex: M Assigned Patient Location: MS Current Patient Location: MS Accession/Order Number: [id number] Exam Date: 04/21/2024 17:48 Report Date: 04/21/2024 19:22 At the request of: JAH DAMIAN Procedure: CT abdomen pelvis w con CT ABDOMEN/PELVIS WITH IV CONTRAST. INDICATION: Abd Pain elkevated liver function tests. COMPARISON: There are no other studies available for comparison. TECHNIQUE: Contiguous axial images were obtained from the lung bases to the pelvic floor following the intravenous administration of contrast. Coronal and sagittal reformations are provided. FINDINGS: LOWER LUNGS: Clear. LIVER/BILIARY TREE: No mass. No intrahepatic ductal dilatation. Hepatomegaly. GALLBLADDER: No significant gallbladder wall thickening. No radiopaque stone. CBD: Normal CBD. SPLEEN: Normal in size. PANCREAS: No acute findings. No peripancreatic fluid or inflammation. No pancreatic duct dilatation. No discrete mass. ADRENALS: Normal. KIDNEYS: There are several bilateral renal cysts measuring up to 4 cm per No hydronephrosis. No radiopaque calculus. STOMACH AND BOWEL: Stomach is unremarkable. There are mildly dilated bowel loops. No bowel wall thickening. There is oral contrast in the small bowel. APPENDIX: Normal appendix. PERITONEAL CAVITY: No fluid. No fat stranding. ABDOMINAL WALL: No subcutaneous stranding. No subcutaneous fluid collection. LYMPH NODES: No mesenteric or retroperitoneal lymphadenopathy by CT criteria. ABDOMINAL AORTA: No aneurysm. PELVIS: No acute abnormality. Prostatomegaly. MUSCULOSKELETAL: No acute osseous abnormality. CT/CT abdomen pelvis w con IMPRESSION: 1. Mildly dilated bowel loops probably an ileus.. 2. Hepatomegaly. Electronically authenticated by: PIOTR BRADY Date: 04/21/2024 19:22 Dictated By: Piotr Brady M.D. Signed By: 04/21/241923 DD/ 21 TD/TT: Groundwater Monitoring Technician: The [address] [address] [address] Scan Report Signed Patient: RUDDY TRAN MR#: [id number] : 1955 Acct:[id number] Age/Sex: 68 / M ADM Date: 04/21/24 Loc: MS 231-[address]: Chioma Damian M.D. Ordering Physician: Jah Damian M.D. Date of Service: 04/21/24 Procedure(s): CT abd omen pelvis w con Accession Number(s): [id number] cc: PETERAILIN [facility] [address] [id number] Patient Name: NABEEL TRAN MRN: [facility]:[id number] date: 1955 Sex: M Assigned Patient Location: MS Current Patient Loca tion: MS Accession/Order Numb er: [id number] Exam Date: 04/21/2024 17:48 Report Date: 04/21/2024 19:22 At the request of: JAH DAMIAN Procedure: CT abdome n pelvis w con CT ABDOMEN/PELVIS WI TH IV CONTRAST. INDICATION: Abd Pain elkevated liver function tests. COMPARISON: There ar e no other studies available for comparison. TECHNIQUE: Contiguou s axial images were obtained from the lung bases to the pelvic floor followi ng the intravenous administration of contrast. Coronal and sagittal reformation s are provided. FINDINGS: LOWER LUNGS: Clear. LIVER/BILIARY TREE: No mass. No intrahepatic ductal dilatation. Hepatomegaly. GALLBLADDER: No significant gallbladder wall thickening. No radiopaque stone. CBD: Normal CBD. SPLEEN: Normal in size. PANCREAS: No acute findings. No peripancreatic fluid or inflammation. No pancreatic duct dilatation. No discrete mass. ADRENALS: Normal. KIDNEYS: There are several bilateral renal cysts measuring up to 4 cm per No hydronephrosis. No radiopaque calculus. STOMACH AND BOWEL: Stomach is unremarkable. There are mildly dilated bowel loops. No bowel wall thickening. There is oral contrast in the small bowel. APPENDIX: Normal appendix. PERITONEAL CAVITY: N o fluid. No fat stranding. ABDOMINAL WALL: No subcutaneous stranding. No subcutaneous fluid collection. LYMPH NODES: No mesenteric or retroperitoneal lymphadenopathy by CT criteria. ABDOMINAL AORTA: No aneurysm. PELVIS: No acute abnormality. Prostatomegaly. MUSCULOSKELETAL: No acute osseous abnormality. C T/CT abdomen pelvis w con IMPRESSION: 1. Mildly dilated luz elena wel loops probably an ileus.. 2. Hepatomegaly. Electronically authenticated by: PIOTR BRAYD Date: 04/21/2024 19:22 Dictated By: Barrett Brady M.D. Signed By: 04/21/241923 DD/ 21 TD/TT: [employer] Monitoring Technician: CBC AUTO DIFF Reviewed date:04/22/2024 07:36:22 AM Interpretation: Performing Lab: Notes/Report: [facility] , White Blood Count 8.9 4.0-11.0 10 3/uL Red Blood Count 4.60 4.70-6.10 10 6/uL Hemoglobin 11.2 14.0-18.0 g/dL Hematocrit 36.1 42.0-54.0 % Mean Corpuscular Volume 78.5 80.0-94.0 fL Mean Corpuscular Hemoglobin 24.3 25.9-34.0 pg Mean Corpuscular HGB Conc 31.0 29.9-35.2 g/dL Red Cell Distribution Width 16.0 11.0-15.0 % Platelet Count 372 150-450 10 3/uL Mean Platelet Volume 8.6 9.5-13.5 fL Neutrophils Percent Auto 71.5 43.0-75.0 % Lymphocytes Percent Auto 11.9 20.5-60.0 % Monocytes Percent Auto 14.3 1.7-12.0 % Eosinophils Percent Auto 1.1 0.9-7.0 % Basophils Percent Auto 0.4 0.2-2.0 % Immature Granulocytes Pct Auto 0.8 0.0-0.5 % Neutrophils Absolute Auto 6.4 1.4-6.5 10 3/uL Lymphocytes Absolute Auto 1.1 1.2-3.8 10 3/uL Monocytes Absolute Auto 1.3 0.3-0.8 10 3/uL Eosinophils Absolute Auto 0.1 0.0-0.7 10 3/uL Basophils Absolute Auto 0.0 0.0-0.1 10 3/uL Immature Granulocytes Abs Auto 0.07 0.00-0.03 10 3/uL Performing Lab: see note ML - [facility] LB PROF 14(COMP METB) Reviewed date:04/22/2024 07:36:22 AM Interpretation: Performing Lab: Notes/Report: [facility] , Sodium 133 136-145 mmol/L Potassium 4.1 3.5-5.1 mmol/L Chloride 96 98-107 mmol/L Carbon Dioxide 29.8 21.0-32.0 mmol/L Anion Gap 11.3 Glucose 167 74-106 mg/dL Blood Urea Nitrogen 11.0 7.0-18.0 mg/dL Creatinine 0.88 0.70-1.30 mg/dL Estimated GFR ( Samantha >60 >=60 Estimated GFR (Non- Aury >60 >=60 BUN Creatinine Ratio 12.5 Calcium 9.3 8.5-10.1 mg/dL Bilirubin Total 0.6 0.2-1.0 mg/dL Aspartate Amino Transferase 112 15-37 U/L Alanine Aminotransferase 135 16-63 U/L Alkaline Phosphatase 296 46-116 U/L Total Protein 7.0 6.4-8.2 g/dL Albumin Level 1.6 3.4-5.0 g/dL Globulin 5.4 Albumin Globulin Ratio 0.3 Performing Lab: see note ML - [facility] UA RANDOM W or MICROSCOPIC Reviewed date:04/22/2024 03:30:52 PM Interpretation: Performing Lab: Notes/Report: [facility] , Color Urine YELLOW YELLOW Clarity Urine CLEAR CLEAR Specific [place] Urine 1.020 1.005-1.025 pH Urine 6.0 5.0-9.0 Protein Urine NEGATIVE NEG/TRACE mg/dL Glucose Urine UA NEGATIVE NEGATIVE mg/dL Bilirubin Urine NEGATIVE NEGATIVE Ketones Urine NEGATIVE NEGATIVE mg/dL Blood Urine TRACE-L NEGATIVE Nitrite Urine NEGATIVE NEGATIVE Urobilinogen Urine 4.0 0.2-1.0 EU/dL Leukocyte Esterase Urine NEGATIVE NEGATIVE WBC Urine NONE SEEN NONE SEEN #/HPF RBC Urine 0-2 0-2 #/HPF Bacteria Urine NONE SEEN NONE SEEN #/HPF Mucus Urine TRACE NONE SEEN Squamous Epithelial Cell Urine FEW NONE/RARE #/LPF Crystals Seen? Seen None Seen #/HPF Uric Acid Crystals Urine MANY Urine Culture Indicated ALREADY ORDERED Performing Lab: see note ML - [facility] LB Sodium Urine Random Reviewed date:04/22/2024 03:16:03 PM Interpretation: Performing Lab: Notes/Report: [facility] , Sodium Urine Random 74 30-90 mmol/L Performing Lab: see note - [facility] LB Osmolality, Urine Reviewed date:04/23/2024 10:18:32 AM Interpretation: Performing Lab: Notes/Report: [facility] , Osmolality, Urine 483 . mOsmol/kg 24 hr : 300 - 900 Random: 50 - 1400 After 12hr fluid restriction: >850 Performed at: [address] [id number] Testboard Operator: Ash Wilcox MD, Phone: [phone] Performing Lab: see note [facility] PROF 14(COMP METB) Reviewed date:04/23/2024 05:50:41 PM Interpretation: Performing Lab: Notes/Report: [facility] , Sodium 136 136-145 mmol/L Potassium 3.6 3.5-5.1 mmol/L Chloride 100 98-107 mmol/L Carbon Dioxide 27.5 21.0-32.0 mmol/L Anion Gap 12.1 Glucose 88 74-106 mg/dL Blood Urea Nitrogen 9.0 7.0-18.0 mg/dL Creatinine 0.68 0.70-1.30 mg/dL Estimated GFR ( Samantha >60 >=60 Estimated GFR (Non- Aury >60 >=60 BUN Creatinine Ratio 13.2 Calcium 8.9 8.5-10.1 mg/dL Bilirubin Total 0.5 0.2-1.0 mg/dL Aspartate Amino Transferase 65 15-37 U/L Alanine Aminotransferase 103 16-63 U/L Alkaline Phosphatase 254 46-116 U/L Total Protein 6.6 6.4-8.2 g/dL Albumin Level 1.5 3.4-5.0 g/dL Globulin 5.1 Albumin Globulin Ratio 0.3 Performing Lab: see note ML - [facility] LB LAB TESTING Reviewed date:06/04/2024 01:55:35 PM Interpretation: Performing Lab: Notes/Report: [id number] Sedimentation Rate, Modified [place] [facility] , Miscellaneous Test COMMENT . Test Ordered: [id number] Sedimentation Rate-[place] Sedimentation Rate-[place] 120 [H ] mm/hr CB Reference Range: 0-30 Performed at: [facility] [address] [id number] Testboard Operator: Neville Long PhD, Phone: [phone] Performing Lab: see note [facility] LB LDH Reviewed date:06/04/2024 01:55:35 PM Interpretation: Performing Lab: Notes/Report: [facility] , Lactate Dehydrogenase 197 85-227 U/L Performing Lab: see note ML - [facility] LB PROF 14(COMP METB) Reviewed date:06/04/2024 01:55:35 PM Interpretation: Performing Lab: Notes/Report: [facility] , Sodium 134 136-145 mmol/L Potassium 3.7 3.5-5.1 mmol/L Chloride 95 98-107 mmol/L Carbon Dioxide 27.7 21.0-32.0 mmol/L Anion Gap 15.0 Glucose 171 74-106 mg/dL Blood Urea Nitrogen 15.0 7.0-18.0 mg/dL Creatinine 0.99 0.70-1.30 mg/dL Estimated GFR ( Samantha >60 >=60 mL/min/1.73m 2 Estimated GFR (Non- Aury >60 >=60 mL/min/1.73m 2 BUN Creatinine Ratio 15.2 Calcium 10.1 8.5-10.1 mg/dL Bilirubin Total 0.7 0.2-1.0 mg/dL Aspartate Amino Transferase 63 15-37 U/L Alanine Aminotransferase 80 16-63 U/L Alkaline Phosphatase 246 46-116 U/L Total Protein 9.0 6.4-8.2 g/dL Albumin Level 2.2 3.4-5.0 g/dL Globulin 6.8 Albumin Globulin Ratio 0.3 Performing Lab: see note ML - [facility] RT pulmonary function test Reviewed date:06/04/2024 01:55:35 PM Interpretation: Performing Lab: Notes/Report: Source Facility: [facility]-[address] [place] [address] [place] [address] Respiratory Report Signed Patient: NABEEL TRAN MR#: [id number] : 1955 Acct:[id number] Age/Sex: 68 / M ADM Date: 05/20/24 Loc: CARD Attending Dr: Sonia Donnelly M.D. Ordering Physician: Sonia Donnelly M.D. 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 Findings were considered accurate and reproducible, with exception of DLCO which did not meet ATS standards. Both pre- and post-bronchodilator values utilized for spirometry. Spirometry (based on pre-bronchodilator values): -FEV1/FVC: Normal @ 86% -FEV1: Moderately reduced @ 61% -FVC: Severely reduced @ 52% -There is a paradoxical bronchodilator response. Lung volumes by plethysmography (based on pre-bronchodilator values): -RV: Increased @ 168% -TLC: Normal @ 85% Diffusion capacity: -DLCO: Moderate reduction @ 58% when corrected for Hb 13.7g/dL Flow-volume loop: -Severe restrictive pattern with abnormal spikes in the expiratory limb suggestive of a glottic maneuver (e.g. cough) Impressions: -Severe restrictive pattern with spirometry with normal lung volume (TLC) suggests chest wall or neuromuscular-type pattern. Moderately severe DLCO may indicate underlying cardiopulmonary vascular disease or early emphysema, though TLC remains normal. This may also be artificially decreased due to inability to meet ATS standards for DLCO. Clinical correlation required. Electronically Signed On 05-20-2024 14:50:42 EDT by Leroy Torres Dictated By: Leroy Torres D.O. Signed By: 05/20/24 1451 05/20/24 1451 DD/ 0906 TD/TT: Groundwater Monitoring Technician: [place] [address] Respiratory Report Signed Patient: RUDDY TRAN MR#: [id number] : 1955 Acct:[id number] Age/Sex: 68 / M ADM Date: 05/20/24 Loc: CARD Attending Dr: Liu Donnelly M.D. Ordering Physician: Sonia Donnelly M.D. 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 Findings were considered accu rate and reproducible, with exception of DLCO which did not meet ATS standar ds. Both pre- and post-bronchodilator values utilized for spirometry. Spirometry (based on pre-bronchodilator values): -FEV1/FVC: Normal @ 86% -FEV1: Moderately re duced @ 61% -FVC: Severely reduc ed @ 52% -There is a paradoxi hayley bronchodilator response. Lung volumes by plethysmography (based on pre-bronchodilator values): -RV: Increased @ 168% -TLC: Normal @ 85% Diffusion capacity: -DLCO: Moderate redu ction @ 58% when corrected for Hb 13.7g/dL Flow-volume loop: -Severe restrictive pattern with abnormal spikes in the expiratory limb suggestive of a glot tic maneuver (e.g. cough) Impressions: -Severe restrictive pattern with spirometry with normal lung volume (TLC) suggests chest wall or neuromuscular-type pattern. Moderately severe DLCO may indicate underly ing cardiopulmonary vascular disease or early emphysema, though TLC remains normal. This may also be artificially decreased due to inability to meet AT S standards for DLCO. Clinical correlation required. Electronically Marsha d On 05-20-2024 14:50:42 EDT by Leroy Torres Dictated By: Casey Torres D.O. Signed By: 05/20/24145005/20/24 145 DD/ 5 TD/TT: Groundwater Monitoring Technician: HERMELINDO echo doppler complete Reviewed date:06/04/2024 01:55:35 PM Interpretation: Performing Lab: Notes/Report: Source Facility: [facility]-[address] [place] [address] [place] [address] Cardiology Report Signed Patient: NABEEL TRAN MR#: [id number] : 1955 Acct:[id number] Age/Sex: 68 / M ADM Date: 05/23/24 Loc: CARD Attending Dr: Sonia Donnelly M.D. Ordering Physician: Sonia Donnelly M.D. Date of Service: 05/23/24 Procedure(s): CA echo doppler complete Accession Number(s): [id number] cc: AILIN GREEN ; Sonia Donnelly M.D. Patient Name: NABEEL TRAN MR#: [id number] : 1955 Exam Date: 05/23/2024 Ordering Doctor: SONIA DONNELLY ECHOCARDIOGRAM REPORT PROCEDURE: CA ECHO DOPPLER COMPLETE INDICATIONS: Cardiotoxic chemotherapy - Hodgkin lymphoma, diabetes COMPARISON: None. DESCRIPTION: COMPLETE ECHOCARDIOGRAM Real-time transthoracic echocardiography with 2D, M-mode, spectral and color flow Doppler performed. QUALITY: Technical quality was good. LEFT VENTRICLE: Normal chamber size. Mild concentric left ventricular hypertrophy. LV EF: Global left ventricular systolic function is lower limits or normal; ejection fraction is estimated to be 50%. No significant wall motion abnormalities. DIASTOLIC: Normal diastolic function. ATRIAL SEPTUM: Inadequately seen. LEFT ATRIUM: Moderate dilatation. RIGHT ATRIUM: Mild dilatation. RIGHT VENTRICLE: Normal chamber size. Normal right ventricular systolic function. TRICUSPID VALVE: Normal mobility and thickness. Mild regurgitation. No evidence of pulmonary hypertension. RVSP 32 mmHg. MITRAL VALVE: Normal mobility and thickness. No evidence of mitral valve stenosis. There is no mitral annular calcification. Mild mitral regurgitation. AORTIC VALVE: Normal trileaflet appearance. Mildly calcified aortic valve with diminished mobility. Doppler velocity suggests mild aortic valve stenosis. DVI 0.4. No aortic regurgitation. AORTIC ROOT: Normal diameter and appearance. PULMONIC VALVE: Not well visualized. PERICARDIUM: No evidence of pericardial effusion. IVC: Not well visualized. CONCLUSION: 1. Global left ventricular systolic is lower limits of normal; ejection fraction is estimated to be 50% 2. Normal right ventricular size and systolic function 3. Biatrial dilatation 4. Mild concentric left ventricular hypertrophy 5. Mild mitral regurgitation 6. Mild aortic stenosis 7. Mild tricuspid regurgitation Adult Echocardiography Procedure Report Left Ventricle LVEDD (3.7 - 5.6 cm): 4.31 cm LVESD (2.2 - 4.0 cm): 2.44 cm LVIVS thickness (0.6 - 1.2 cm): 1.04 cm LVPW thickness (0.5 - 1.0 cm): 1.30 cm e': 0.21 m/s E - e': 3.99 LVOT Max Gradient: 3.15 mm[Hg] LVOT Area (cm2): 0.89 m/s Peak Velocity (LVOT): 0.89 m/s Mean Velocity (LVOT): 0.57 m/s LVOT Diameter 1.98 cm Left Atrium LA Volume Index (2D A2C): 47.66 ml/m2 Left Atrium Systolic Dimension: 3.42 cm Mitral Valve MV E to A Ratio: 1.12 Mitral Valve A-Wave Peak Velocity: 0.76 m/s Mitral Valve E-Wave Peak Velocity: 0.86 m/s Right Ventricle Aorta AO Root Diam: 3.07 cm Aortic Valve AoV Area (Peak Walt): 1.28 cm2, 2.09 cm2 AoV Area (VTI): 1.16 cm2, 2.02 cm2 Peak Velocity(Antegrade Flow): 1.30 m/s, 2.13 m/s Peak Gradient(Antegrade Flow): 6.77 mm[Hg], 18.20 mm[Hg] Mean Velocity(Antegrade Flow): 0.77 m/s, 1.08 m/s Mean Gradient(Antegrade Flow): 2.98 mm[Hg], 6.33 mm[Hg] Velocity Time Integral: 22.35 cm, 38.71 cm Tricuspid Valve Peak Velocity (Regurgitant Flow): 2.45 m/s, 2.44 m/s Pulmonic Valve Right Atrium Right Atrium Systolic Pressure: 56.29 ml, 56.29 ml Dictated by: Deena Tilley M.D. on 05/23/2024 at 17:07 Approved by: Deena Tilley M.D. on 05/23/2024 at 17:24 Dictated By: Deena Tilley M.D. Signed By: 05/23/241724 DD/ 23 TD/TT: Groundwater Monitoring Technician: [place] [address] Cardiology Report Signed Patient: RUDDY TRAN MR#: [id number] : 1955 Acct:[id number] Age/Sex: 68 / M ADM Date: 05/23/24 Loc: CARD Attending Dr: Liu Donnelly M.D. Ordering Physician: Sonia Donnelly M.D. Date of Service: 05/23/24 Procedure(s): CA ech o doppler complete Accession Number(s): [id number] cc: AILIN GREEN ; Sonia Donnelly M.D. Patient Name: NABEEL TRAN MR#: [id number] : 1955 Exam Date: 05/23/2024 Ordering Doctor: RONNI DONNELLY ECHOCARDIOGRAM REPORT PROCEDURE: CA ECHO DOPPLER COMPLETE INDICATIONS: Cardiot oxic chemotherapy - Hodgkin lymphoma, diabetes COMPARISON: None. DESCRIPTION: COMPLET E ECHOCARDIOGRAM Real-time transthoracic echocardiography wit h 2D, M-mode, spectral and color flow Doppler performed. QUALITY: Technical quality was good. LEFT VENTRICLE: Norm al chamber size. Mild concentric left ventricular hypertrophy. LV EF: Global left ventricular systolic function is lower limits or normal; ejection fra ction is estimated to be 50%. No significant wall motion abnormalities. DIASTOLIC: Normal diastolic function. ATRIAL SEPTUM: Inadequately seen. LEFT ATRIUM: Moderat e dilatation. RIGHT ATRIUM: Mild dilatation. RIGHT VENTRICLE: Nor mal chamber size. Normal right ventricular systolic function. TRICUSPID VALVE: Nor mal mobility and thickness. Mild regurgitation. No evidence of pulmonar y hypertension. RVSP 32 mmHg. MITRAL VALVE: Normal mobility and thickness. No evidence of mitral valve stenosis. There is n o mitral annular calcification. Mild mitral regurgitation. AORTIC VALVE: Normal trileaflet appearance. Mildly calcified aortic valve with diminished mobi lity. Doppler velocity suggests mild aortic valve stenosis. DVI 0.4. N o aortic regurgitation. AORTIC ROOT: Normal diameter and appearance. PULMONIC VALVE: Not well visualized. PERICARDIUM: No evid ence of pericardial effusion. IVC: Not well visualized. CONCLUSION: 1. Global left ventricular systolic is lower limits of normal; ejection fraction is estimate d to be 50% 2. Normal right ventricular size and systolic function 3. Biatrial dilatation 4. Mild concentric l eft ventricular hypertrophy 5. Mild mitral regurgitation 6. Mild aortic stenosis 7. Mild tricuspid regurgitation Adult Echocardiograp hy Procedure Report Left Ventricle LVEDD (3.7 - 5.6 cm) : 4.31 cm LVESD (2.2 - 4.0 cm) : 2.44 cm LVIVS thickness (0.6 - 1.2 cm): 1.04 cm LVPW thickness (0.5 - 1.0 cm): 1.30 cm e': 0.21 m/s E - e': 3.99 LVOT Max Gradient: 3 .15 mm[Hg] LVOT Area (cm2): 0.89 m/s Peak Velocity (LVOT) : 0.89 m/s Mean Velocity (LVOT) : 0.57 m/s LVOT Diameter 1.98 cm Left Atrium LA Volume Index (2D A2C): 47.66 ml/m2 Left Atrium Systolic Dimension: 3.42 cm Mitral Valve MV E to A Ratio: 1.12 Mitral Valve A-Wave Peak Velocity: 0.76 m/s Mitral Valve E-Wave Peak Velocity: 0.86 m/s Right Ventricle Aorta AO Root Diam: 3.07 cm Aortic Valve AoV Area (Peak Walt): 1.28 cm2, 2.09 cm2 AoV Area (VTI): 1.16 cm2, 2.02 cm2 Peak Velocity(Antegr julien Flow): 1.30 m/s, 2.13 m/s Peak Gradient(Antegr julien Flow): 6.77 mm[Hg], 18.20 mm[Hg] Mean Velocity(Antegr julien Flow): 0.77 m/s, 1.08 m/s Mean Gradient(Antegr julien Flow): 2.98 mm[Hg], 6.33 mm[Hg] Velocity Time Integr al: 22.35 cm, 38.71 cm Tricuspid Valve Peak Velocity (Regurgitant Flow): 2.45 m/s, 2.44 m/s Pulmonic Valve Right Atrium Right Atrium Systoli c Pressure: 56.29 ml, 56.29 ml Dictated by: Deena Tilley M.D. on 05/23/2024 at 17:07 Approved by: Deena Tilley M.D. on 05/23/2024 at 17:24 Dictated By: Deena Tilley M.D. Signed By: 05/23/241724 DD/ 23 TD/TT: Groundwater Monitoring Technician: MAGNESIUM Reviewed date:06/04/2024 12:14:13 PM Interpretation: Performing Lab: Notes/Report: [facility] , Magnesium 1.9 1.8-2.4 mg/dL Performing Lab: see note ML - [facility] LB PROF CHEM 8 (BAS METB) Reviewed date:06/04/2024 12:13:38 PM Interpretation: Performing Lab: Notes/Report: [facility] , Sodium 136 136-145 mmol/L Potassium 5.0 3.5-5.1 mmol/L SPECIMEN SLIG HTLY HEMOLYZED Chloride 98 98-107 mmol/L Carbon Dioxide 26.2 21.0-32.0 mmol/L Anion Gap 16.8 Glucose 175 74-106 mg/dL Blood Urea Nitrogen 13.0 7.0-18.0 mg/dL Creatinine 0.84 0.70-1.30 mg/dL Estimated GFR ( Samantha >60 >=60 mL/min/1.73m 2 Estimated GFR (Non- Aury >60 >=60 mL/min/1.73m 2 BUN Creatinine Ratio 15.5 Calcium 8.9 8.5-10.1 mg/dL Performing Lab: see note ML - [facility] CA echo limited Reviewed date:06/05/2024 08:09:31 AM Interpretation: Performing Lab: Notes/Report: Source Facility: [facility]-[address] [place] [address] [place] [address] Cardiology Report Signed Patient: NABEEL TRAN MR#: [id number] : 1955 Acct:[id number] Age/Sex: 68 / M ADM Date: 06/04/24 Loc: ICU 271-[address]: Florina Melissa D.O. Ordering Physician: Florina Melissa D.O. Date of Service: 06/04/24 Procedure(s): CA echo limited Accession Number(s): [id number] cc: AILIN GREEN ; Florina Melissa D.O. Patient Name: NABEEL TRAN MR#: [id number] : 1955 Exam Date: 06/04/2024 Ordering Doctor: FLORINA MELISSA . ECHOCARDIOGRAM REPORT PROCEDURE: CA ECHO LIMITED INDICATIONS: SVT, shortness of breath COMPARISON: None. DESCRIPTION: Limited ECHOCARDIOGRAM Real-time transthoracic echocardiography with 2D and M-mode performed. QUALITY: Technical quality was good. LEFT VENTRICLE: Normal chamber size. Mild to moderate concentric left ventricle hypertrophy. Global left ventricular systolic function is normal. Visual estimation of left ventricular ejection fraction is 55-60%.No regional wall motion abnormalities. LV EF: DIASTOLIC: ATRIAL SEPTUM: LEFT ATRIUM: Moderate dilatation. RIGHT ATRIUM: Moderate dilatation. RIGHT VENTRICLE: Normal chamber size. Normal right ventricular systolic function. TRICUSPID VALVE: Normal mobility and thickness. MITRAL VALVE: Mildly thickened with normal mobility. There is no mitral annular calcification. AORTIC VALVE: Normal trileaflet appearance. Mildly calcified aortic valve. AORTIC ROOT: Normal diameter and appearance. PULMONIC VALVE: Not well visualized. PERICARDIUM: No evidence of pericardial effusion. IVC: Not well visualized. PLEURA: CONCLUSION: Normal left ventricle chamber size. Mild to moderate concentric left ventricle hypertrophy. Global Left ventricle systolic function is normal. Visual estimation of left ventricular ejection fraction is 55-60%.No regional wall motion abnormalities. Mildly calcified aortic valve. Adult Echocardiography Procedure Report Left Ventricle LVEDD (3.7 - 5.6 cm): 4.92 cm LVESD (2.2 - 4.0 cm): 3.57 cm LVIVS thickness (0.6 - 1.2 cm): 1.55 cm LVPW thickness (0.5 - 1.0 cm): 1.27 cm e': E - e': LVOT Max Gradient: LVOT Area (cm2): Peak Velocity (LVOT): Mean Velocity (LVOT): LVOT Diameter 2.48 cm Left Ventricular Ejection Fraction: 64.23 % Left Atrium LA Volume Index (2D A2C): 51.08 ml/m2 Left Atrium Systolic Dimension: 3.87 cm Mitral Valve MV E to A Ratio: MV Max Gradient: MV Mean Gradient: Mitral Valve A-Wave Peak Velocity: Mitral Valve E-Wave Peak Velocity: Cardiovascular Orifice Area: Right Ventricle RV Internal Diastolic Dimension: 3.47 cm Aorta AO Root Diam: 2.88 cm Ascending Ao Diam: Aortic Valve AoV Area (Peak Walt): AoV Area (VTI): Deceleration [place]: Pressure Half-Time: Peak Velocity(Antegrade Flow): Peak Gradient(Antegrade Flow): Mean Velocity(Antegrade Flow): Mean Gradient(Antegrade Flow): Velocity Time Integral: Tricuspid Valve Peak Velocity (Regurgitant Flow): Peak Velocity: Pulmonic Valve Mean Gradient: Mean Velocity: Peak Velocity: Peak Gradient: Right Atrium Right Atrium Systolic Pressure: 54.46 ml, 54.46 ml Dictated by: Albina Chris MD on 06/04/2024 at 17:10 Approved by: Albina Chris MD on 06/04/2024 at 17:17 Dictated By: Albina Chris M.D. Signed By: 06/04/241717 DD/ 16 TD/TT: Groundwater Monitoring Technician: [place] [address] Cardiology Report Signed Patient: RUDDY TRAN MR#: [id number] : 1955 Acct:[id number] Age/Sex: 68 / M ADM Date: 06/04/24 Loc: ICU 271-[address]: Esau Melissa D.O. Ordering Physician: Florina Melissa D.O. Date of Service: 06/04/24 Procedure(s): CA ech o limited Accession Number(s): [id number] cc: AILIN GREEN ; Florina Melissa D.O. Patient Name: NABEEL TRAN MR#: [id number] : 1955 Exam Date: 06/04/2024 Ordering Doctor: EILEEN MELISSA . ECHOCARDIOGRAM REPORT PROCEDURE: CA ECHO LIMITED INDICATIONS: SVT, shortness of breath COMPARISON: None. DESCRIPTION: Limited ECHOCARDIOGRAM Real-time transthoracic echocardiography wit h 2D and M-mode performed. QUALITY: Technical quality was good. LEFT VENTRICLE: Norm al chamber size. Mild to moderate concentric left ventricle hypertroph y. Global left ventricular systolic function is normal. Visual estimation of left ventricular ejection fraction is 55-60%.No regional wall motion abnormalities. LV EF: DIASTOLIC: ATRIAL SEPTUM: LEFT ATRIUM: Moderat e dilatation. RIGHT ATRIUM: Modera te dilatation. RIGHT VENTRICLE: Nor mal chamber size. Normal right ventricular systolic function. TRICUSPID VALVE: Nor mal mobility and thickness. MITRAL VALVE: Mildly thickened with normal mobility. There is no mitral annular calcification. AORTIC VALVE: Normal trileaflet appearance. Mildly calcified aortic valve. AORTIC ROOT: Normal diameter and appearance. PULMONIC VALVE: Not well visualized. PERICARDIUM: No evid ence of pericardial effusion. IVC: Not well visualized. PLEURA: CONCLUSION: Normal left ventricl e chamber size. Mild to moderate concentric left ventricle hypertrophy. Global Left ventricle systo lic function is normal. Visual estimation of left ventricular ejection fraction is 55-60%.No regional wall motion abnormalities. Mildly calcified aor tic valve. Adult Echocardiograp hy Procedure Report Left Ventricle LVEDD (3.7 - 5.6 cm) : 4.92 cm LVESD (2.2 - 4.0 cm) : 3.57 cm LVIVS thickness (0.6 - 1.2 cm): 1.55 cm LVPW thickness (0.5 - 1.0 cm): 1.27 cm e': E - e': LVOT Max Gradient: LVOT Area (cm2): Peak Velocity (LVOT): Mean Velocity (LVOT): LVOT Diameter 2.48 cm Left Ventricular Eje ction Fraction: 64.23 % Left Atrium LA Volume Index (2D A2C): 51.08 ml/m2 Left Atrium Systolic Dimension: 3.87 cm Mitral Valve MV E to A Ratio: MV Max Gradient: MV Mean Gradient: Mitral Valve A-Wave Peak Velocity: Mitral Valve E-Wave Peak Velocity: Cardiovascular Orifi ce Area: Right Ventricle RV Internal Diastoli c Dimension: 3.47 cm Aorta AO Root Diam: 2.88 cm Ascending Ao Diam: Aortic Valve AoV Area (Peak Walt): AoV Area (VTI): Deceleration Red [place]: Pressure Half-Time: Peak Velocity(Antegr julien Flow): Peak Gradient(Antegr julien Flow): Mean Velocity(Antegr julien Flow): Mean Gradient(Antegr julien Flow): Velocity Time Integral: Tricuspid Valve Peak Velocity (Regurgitant Flow): Peak Velocity: Pulmonic Valve Mean Gradient: Mean Velocity: Peak Velocity: Peak Gradient: Right Atrium Right Atrium Systoli c Pressure: 54.46 ml, 54.46 ml Dictated by: Albina Chris MD on 06/04/2024 at 17:10 Approved by: Albina Chris MD on 06/04/2024 at 17:17 Dictated By: Albina Chris M.D. Signed By: 06/04/241717 DD/ 16 TD/TT: Groundwater Monitoring Technician: XR chest 1V Reviewed date:06/04/2024 12:13:07 PM Interpretation: Performing Lab: Notes/Report: Source Facility: [place] [address] XRay Report Signed Patient: NABEEL TRAN MR#: [id number] : 1955 Acct:[id number] Age/Sex: 68 / M ADM Date: 06/04/24 Loc: ICU 271-[address]: Everett Clemens M.D. Ordering Physician: vEerett Clemens M.D. Date of Service: 06/04/24 Procedure(s): XR chest 1V Accession Number(s): [id number] cc: AILIN GREEN ; Everett Clemens M.D. [place] [address] Patient Name: NABEEL TRAN MRN: [id number] date: 1955 Sex: M Assigned Patient Location: [facility] Current Patient Location: [facility] Accession/Order Number: [id number] Exam Date: 06/04/2024 11:33 Report Date: 06/04/2024 12:04 At the request of: EVERETT CLEMENS Procedure: XR chest 1V EXAMINATION: XR chest 1V HISTORY: s/p port placement COMPARISON: XR chest 12/06/2020 FINDINGS: LUNGS: Chronically elevated left hemidiaphragm with trace amount left basilar atelectasis. VASCULATURE: No increased pulmonary vasculature. PLEURA: No pneumothorax, effusion, or pleural thickening. CARDIAC: No cardiomegaly or cardiac silhouette abnormality. MEDIASTINUM: No visible mass or adenopathy. BONES: No fracture or visible bone lesion. OTHER: Right Port-A-Cath with distal tip in superior vena cava near the cavoatrial junction. XR/XR chest 1V IMPRESSION: 1. Right Port-A-Cath placement. No appreciable acute abnormality. 2. Stable chronic left lung base findings. Electronically authenticated by: NABEEL STRANGE Date: 06/04/2024 12:04 Dictated By: Nabeel Strange M.D. Signed By: 06/04/241205 DD/ 03 TD/TT: Groundwater Monitoring Technician: [place] [address] XRay Report Signed Patient: RUDDY TRAN MR#: [id number] : 1955 Acct:[id number] Age/Sex: 68 / M ADM Date: 06/04/24 Loc: ICU 271-[address]: Karl Clemens M.D. Ordering Physician: Everett Clemens M.D. Date of Service: 06/04/24 Procedure(s): XR chest 1V Accession Number(s): [id number] cc: AILIN GREEN ; Everett Clemens M.D. [place] [address] Patient Name: NABEEL TRAN MRN: [id number] date: 1955 Sex: M Assigned [facility] Current Patient Loca tion: [facility] Accession/Order Numb er: [id number] Exam Date: 11:33 Report Date: 06/04/2024 12:04 At the request of: EVERETT CLEMENS Procedure: XR chest 1V EXAMINATION: XR chest 1V HISTORY: s/p port placement COMPARISON: XR chest 12/06/2020 FINDINGS: LUNGS: Chronically elevated left hemidiaphragm with trace amount left basilar atelectasis. VASCULATURE: No incr eased pulmonary vasculature. PLEURA: No pneumotho rax, effusion, or pleural thickening. CARDIAC: No cardiome tamy or cardiac silhouette abnormality. MEDIASTINUM: No visi ble mass or adenopathy. BONES: No fracture o r visible bone lesion. OTHER: Right Port-A- Cath with distal tip in superior vena cava near the cavoatrial junction. X R/XR chest 1V IMPRESSION: 1. Right Port-A-Cath placement. No appreciable acute abnormality. 2. Stable chronic le ft lung base findings. Electronically authenticated by: NABEEL STRANGE Date: 06/04/2024 12:04 Dictated By: Nabeel Strange M.D. Signed By: 06/04/24 1206 DD/ 1204 TD/TT: Groundwater Monitoring Technician: ECG 12 lead Reviewed date:06/05/2024 08:09:30 AM Interpretation: Performing Lab: Notes/Report: Source Facility: [place] [address] Electrocardiograph Report Signed Patient: NABEEL TRAN MR#: [id number] : 1955 Acct:[id number] Age/Sex: 68 / M ADM Date: 06/04/24 Loc: ICU [address]: Florina Melissa D.O. Ordering Physician: Florina Melissa D.O. Date of Service: 06/04/24 Procedure(s): ECG 12 lead Accession Number(s): [id number] cc: [facility] Test Date: 2024-06-04 Pat Name: NABEEL TRAN Department: Room: [facility] Gender: Male Accounting Reconciliation Clerk: : 1955 Requested By: AILIN GREEN Order Number: [id number] Reading MD: NITO SUNSHINE Measurements Intervals [place]flower Rate: 133 P: -01559 MA: -85116 QRS: 10 QRSD: 86 T: 1 QT: 344 QTc: 422 Interpretive Statements 1420 Undetermined rhythm (Possible supraventricular tachycardia) 3614 Cannot rule out inferior myocardial infarction, age undetermined 5222 Moderate voltage criteria for LVH, may be normal variant 0104 ELECTRODE(S) DETACHED ... Repeat ECG is requested 9150 abnormal ECG Electronically Signed On 06-04-2024 23:27:39 EDT by NITO SUNSHINE Dictated By: Nito Sunshine D.O. Signed By: 06/04/24 4608 DD/ 1620 TD/TT: Groundwater Monitoring Technician: [place] [address] Electrocardiograph Report Signed Patient: RUDDY TRAN MR#: [id number] : 1955 Acct:[id number] Age/Sex: 68 / M ADM Date: 06/04/24 Loc: ICU 271-[address]: Esau Melissa D.O. Ordering Physician: Florina Melissa D.O. Date of Service: 06/04/24 Procedure(s): ECG 12 lead Accession Number(s): [id number] cc: [facility] Test Date: 2024-06-04 Pat Name: NABEEL LAMAR Department: 97 Room: [facility] Gender: Male Accounting Reconciliation Clerk: : 1955 Requ ested By: AILIN GREEN Order Number: [id number] Reading MD: NITO SUNSHINE Measurements Intervals [place]flower Rate: 133 P: -41196 MA: -16287 QRS: 10 QRSD: 86 T: 1 QT: 344 QTc: 422 Interpretive Statements 1420 Undetermined rh ythm (Possible supraventricular tachycardia) 3614 Cannot rule out inferior myocardial infarction, age undetermined 5222 Moderate voltag e criteria for LVH, may be normal variant 0104 ELECTRODE(S) DETACHED ... Repeat ECG is requested 9150 abnormal ECG Electronically Marsha d On 06-04-2024 23:27:39 EDT by NITO SUNSHINE Dictated By: Nito Sunshine D.O. Signed By: 06/04/248 DD/ 1620 TD/TT: Groundwater Monitoring Technician: PROF Lemos(COMP METB) Reviewed date:06/15/2024 05:37:58 PM Interpretation: Performing Lab: Notes/Report: [facility] , Sodium 141 136-145 mmol/L Potassium 4.2 3.5-5.1 mmol/L Chloride 103 98-107 mmol/L Carbon Dioxide 31.7 21.0-32.0 mmol/L Anion Gap 10.5 Glucose 128 74-106 mg/dL Blood Urea Nitrogen 21.0 7.0-18.0 mg/dL Creatinine 0.85 0.70-1.30 mg/dL Estimated GFR ( Samantha >60 >=60 mL/min/1.73m 2 Estimated GFR (Non- Aury >60 >=60 mL/min/1.73m 2 BUN Creatinine Ratio 24.7 Calcium 9.5 8.5-10.1 mg/dL Bilirubin Total 0.5 0.2-1.0 mg/dL Aspartate Amino Transferase 40 15-37 U/L Alanine Aminotransferase 39 16-63 U/L Alkaline Phosphatase 356 46-116 U/L Total Protein 7.1 6.4-8.2 g/dL Albumin Level 1.3 3.4-5.0 g/dL Globulin 5.8 Albumin Globulin Ratio 0.2 Performing Lab: see note ML - [facility] LB BNP Reviewed date:06/15/2024 05:37:58 PM Interpretation: Performing Lab: Notes/Report: [facility] , NT Pro B Type Natriuretic Pept 704.0 <=900.0 pg/mL Performing Lab: see note ML - [facility] LB CBC AUTO DIFF Reviewed date:06/15/2024 05:37:58 PM Interpretation: Performing Lab: Notes/Report: [facility] , White Blood Count 7.0 4.0-11.0 10 3/uL Red Blood Count 4.66 4.70-6.10 10 6/uL Hemoglobin 10.9 14.0-18.0 g/dL Hematocrit 36.3 42.0-54.0 % Mean Corpuscular Volume 77.9 80.0-94.0 fL Mean Corpuscular Hemoglobin 23.4 25.9-34.0 pg Mean Corpuscular HGB Conc 30.0 29.9-35.2 g/dL Red Cell Distribution Width 16.9 11.0-15.0 % Platelet Count 369 150-450 10 3/uL Mean Platelet Volume 9.2 9.5-13.5 fL Neutrophils Percent Auto 87.9 43.0-75.0 % Lymphocytes Percent Auto 9.5 20.5-60.0 % Monocytes Percent Auto 1.6 1.7-12.0 % Eosinophils Percent Auto 0.4 0.9-7.0 % Basophils Percent Auto 0.3 0.2-2.0 % Immature Granulocytes Pct Auto 0.3 0.0-0.5 % Neutrophils Absolute Auto 6.1 1.4-6.5 10 3/uL Lymphocytes Absolute Auto 0.7 1.2-3.8 10 3/uL Monocytes Absolute Auto 0.1 0.3-0.8 10 3/uL Eosinophils Absolute Auto 0.0 0.0-0.7 10 3/uL Basophils Absolute Auto 0.0 0.0-0.1 10 3/uL Immature Granulocytes Abs Auto 0.02 0.00-0.03 10 3/uL Performing Lab: see note ML - [facility] LB PROF 14(COMP METB) Reviewed date:06/15/2024 05:37:58 PM Interpretation: Performing Lab: Notes/Report: [facility] , Sodium 139 136-145 mmol/L Potassium 3.9 3.5-5.1 mmol/L Chloride 104 98-107 mmol/L Carbon Dioxide 30.3 21.0-32.0 mmol/L Anion Gap 8.6 Glucose 233 74-106 mg/dL Blood Urea Nitrogen 20.0 7.0-18.0 mg/dL Creatinine 0.86 0.70-1.30 mg/dL Estimated GFR ( Samantha >60 >=60 mL/min/1.73m 2 Estimated GFR (Non- Aury >60 >=60 mL/min/1.73m 2 BUN Creatinine Ratio 23.3 Calcium 9.3 8.5-10.1 mg/dL Bilirubin Total 0.7 0.2-1.0 mg/dL Aspartate Amino Transferase 36 15-37 U/L Alanine Aminotransferase 30 16-63 U/L Alkaline Phosphatase 298 46-116 U/L Total Protein 6.8 6.4-8.2 g/dL Albumin Level 1.4 3.4-5.0 g/dL Globulin 5.4 Albumin Globulin Ratio 0.3 Performing Lab: see note ML - [facility] Prothrombin Time INR Reviewed date:06/15/2024 05:37:58 PM Interpretation: Performing Lab: Notes/Report: [facility] , Prothrombin Time 11.5 9.0-11.6 sec INR 1.09 DESIRED INR: 2.0-3.0 CONDITIONS NOT LISTED BELOW 2.5-3.5 FOR PROSTHETIC HEART VALVE REPLACEMENT 2.5-3.5 RECURRENT THROMBOSIS Performing Lab: see note ML - [facility] Troponin I High Sensitivity Reviewed date:06/15/2024 05:37:58 PM Interpretation: Performing Lab: Notes/Report: [facility] , Troponin I High Sensitivity 6.8 4.0-76.1 pg/mL CUT-OFF POINTS HAVE BEEN ESTABLISHED BASED ON THE FOURTH UNIVERSAL DEFINITION OF MYOCARDIAL INFARCTION. THE UPPER REFERENCE LIMIT (URL) OF TROPONIN, DEFINED THE 99TH PERCENTILE OF cTnI DISTRIBUTION IN A REFERENCE POPULATION, HAS BEEN CONFIRMED THE DECISION THRESHOLD FOR MO DIAGNOSIS. 99TH PERCENTILE = 76.2 PG/ML NOTE: HIGH-SENSITIVITY TROPONIN ASSAY IS NOT INTENDED TO BE USED IN ISOLATION BUT SHOULD BE INTERPRETED IN CONJUNCTION WITH OTHER DIAGNOSTIC AND CLINICAL INFORMATION. Performing Lab: see note ML - [facility] LB ECG 12 lead Reviewed date:06/15/2024 05:37:58 PM Interpretation: Performing Lab: Notes/Report: Source Facility: [place] [address] [place] [address] Electrocardiograph Report Signed Patient: NABEEL TRAN MR#: [id number] : 1955 Acct:[id number] Age/Sex: 68 / M ADM Date: 06/13/24 Loc: ICU 271-[address]: Jah Damian M.D. Ordering Physician: Evelyn Dumont Date of Service: 06/13/24 Procedure(s): ECG 12 lead Accession Number(s): [id number] cc: [facility] Test Date: 2024-06-13 Pat Name: NABEEL TRAN Department: Room: - Gender: Male Accounting Reconciliation Clerk: : 1955 Requested By: AILIN GREEN Order Number: [id number] Reading MD: JAH DAMIAN Measurements Intervals [place]flower Rate: 157 P: 240 MA: 134 QRS: 18 QRSD: 84 T: 109 QT: 302 QTc: 390 Interpretive Statements 1220 Rapid atrial rhythm [address] depression [address] Twave abnormality 9140 abnormal rhythm ECG Compared to ECG 06/04/2024 16:20:31 ST (T wave) deviation now present Myocardial infarct finding no longer present Left ventricular hypertrophy no longer present Electronically Signed On 06-14-2024 6:29:39 EST by JAH DAMIAN Dictated By: Jah Dmaian M.D. Signed By: 06/14/24 0629 DD/ 1619 TD/TT: Groundwater Monitoring Technician: [place] [address] Electrocardiograph Report Signed Patient: RUDDY TRAN MR#: [id number] : 1955 Acct:[id number] Age/Sex: 68 / M ADM Date: 06/13/24 Loc: ICU 271-[address]: Chioma Damian M.D. Ordering Physician: Evelyn Dumont Date of Service: 06/13/24 Procedure(s): ECG 12 lead Accession Number(s): [id number] cc: [facility] Test Date: 2024-06-13 Pat Name: NABEEL LAMAR Department: 97 Room: - Gender: Male Accounting Reconciliation Clerk: : 1955 Requ ested By: AILIN GREEN Order Number: [id number] Reading MD: JAH DAMIAN Measurements Intervals [place] Rate: 157 P: 240 MA: 134 QRS: 18 QRSD: 84 T: 109 QT: 302 QTc: 390 Interpretive Statements 1220 Rapid atrial rhythm [address] depression [address] [place]ave abnormality 9140 abnormal [facility] ECG Compared to ECG 06/04/2024 16:20:31 ST (T wave) deviatio n now present Myocardial infarct finding no longer present Left ventricular hypertrophy no longer present Electronically Marsha d On 06-14-2024 6:29:39 EST by JAH DAMIAN Dictated By: Unique Damian M.D. Signed By: 06/14/24 0629 DD/ 1619 TD/TT: Groundwater Monitoring Technician: CBC AUTO DIFF Reviewed date:06/15/2024 05:37:58 PM Interpretation: Performing Lab: Notes/Report: [facility] , White Blood Count 5.8 4.0-11.0 10 3/uL Red Blood Count 4.25 4.70-6.10 10 6/uL Hemoglobin 10.0 14.0-18.0 g/dL Hematocrit 33.4 42.0-54.0 % Mean Corpuscular Volume 78.6 80.0-94.0 fL Mean Corpuscular Hemoglobin 23.5 25.9-34.0 pg Mean Corpuscular HGB Conc 29.9 29.9-35.2 g/dL Red Cell Distribution Width 16.9 11.0-15.0 % Platelet Count 310 150-450 10 3/uL Mean Platelet Volume 9.6 9.5-13.5 fL Neutrophils Percent Auto 87.3 43.0-75.0 % Lymphocytes Percent Auto 9.7 20.5-60.0 % Monocytes Percent Auto 1.6 1.7-12.0 % Eosinophils Percent Auto 0.5 0.9-7.0 % Basophils Percent Auto 0.2 0.2-2.0 % Immature Granulocytes Pct Auto 0.7 0.0-0.5 % Neutrophils Absolute Auto 5.0 1.4-6.5 10 3/uL Lymphocytes Absolute Auto 0.6 1.2-3.8 10 3/uL Monocytes Absolute Auto 0.1 0.3-0.8 10 3/uL Eosinophils Absolute Auto 0.0 0.0-0.7 10 3/uL Basophils Absolute Auto 0.0 0.0-0.1 10 3/uL Immature Granulocytes Abs Auto 0.04 0.00-0.03 10 3/uL Performing Lab: see note ML - [facility] LB MAGNESIUM Reviewed date:06/15/2024 05:37:58 PM Interpretation: Performing Lab: Notes/Report: [facility] , Magnesium 2.1 1.8-2.4 mg/dL Performing Lab: see note ML - [facility] LB PROF CHEM 8 (BAS METB) Reviewed date:06/15/2024 05:37:58 PM Interpretation: Performing Lab: Notes/Report: [facility] , Sodium 140 136-145 mmol/L Potassium 4.1 3.5-5.1 mmol/L Chloride 103 98-107 mmol/L Carbon Dioxide 32.1 21.0-32.0 mmol/L Anion Gap 9.0 Glucose 247 74-106 mg/dL Blood Urea Nitrogen 18.0 7.0-18.0 mg/dL Creatinine 0.84 0.70-1.30 mg/dL Estimated GFR ( Samantha >60 >=60 mL/min/1.73m 2 Estimated GFR (Non- Aury >60 >=60 mL/min/1.73m 2 BUN Creatinine Ratio 21.4 Calcium 8.5 8.5-10.1 mg/dL Performing Lab: see note ML - [facility] LB PTT Reviewed date:06/15/2024 05:37:58 PM Interpretation: Performing Lab: Notes/Report: [facility] , Partial Thromboplastin Time 36.5 22.3-36.2 sec Performing Lab: see note - [facility] LB Prothrombin Time INR Reviewed date:06/15/2024 05:37:58 PM Interpretation: Performing Lab: Notes/Report: [facility] , Prothrombin Time 11.1 9.0-11.6 sec INR 1.05 DESIRED INR: 2.0-3.0 CONDITIONS NOT LISTED BELOW 2.5-3.5 FOR PROSTHETIC HEART VALVE REPLACEMENT 2.5-3.5 RECURRENT THROMBOSIS Performing Lab: see note - [facility] LB CBC AUTO DIFF Reviewed date:06/15/2024 05:37:58 PM Interpretation: Performing Lab: Notes/Report: [facility] , White Blood Count 5.8 4.0-11.0 10 3/uL Red Blood Count 4.20 4.70-6.10 10 6/uL Hemoglobin 9.7 14.0-18.0 g/dL Hematocrit 32.7 42.0-54.0 % Mean Corpuscular Volume 77.9 80.0-94.0 fL Mean Corpuscular Hemoglobin 23.1 25.9-34.0 pg Mean Corpuscular HGB Conc 29.7 29.9-35.2 g/dL Red Cell Distribution Width 16.6 11.0-15.0 % Platelet Count 297 150-450 10 3/uL Mean Platelet Volume 9.4 9.5-13.5 fL Neutrophils Percent Auto 86.3 43.0-75.0 % Lymphocytes Percent Auto 10.6 20.5-60.0 % Monocytes Percent Auto 1.6 1.7-12.0 % Eosinophils Percent Auto 0.7 0.9-7.0 % Basophils Percent Auto 0.3 0.2-2.0 % Immature Granulocytes Pct Auto 0.5 0.0-0.5 % Neutrophils Absolute Auto 5.0 1.4-6.5 10 3/uL Lymphocytes Absolute Auto 0.6 1.2-3.8 10 3/uL Monocytes Absolute Auto 0.1 0.3-0.8 10 3/uL Eosinophils Absolute Auto 0.0 0.0-0.7 10 3/uL Basophils Absolute Auto 0.0 0.0-0.1 10 3/uL Immature Granulocytes Abs Auto 0.03 0.00-0.03 10 3/uL Performing Lab: see note ML - [facility] LB PROF 14(COMP METB) Reviewed date:06/15/2024 05:37:58 PM Interpretation: Performing Lab: Notes/Report: [facility] , Sodium 139 136-145 mmol/L Potassium 3.9 3.5-5.1 mmol/L Chloride 101 98-107 mmol/L Carbon Dioxide 32.4 21.0-32.0 mmol/L Anion Gap 9.5 Glucose 117 74-106 mg/dL Blood Urea Nitrogen 20.0 7.0-18.0 mg/dL Creatinine 0.67 0.70-1.30 mg/dL Estimated GFR ( Samantha >60 >=60 mL/min/1.73m 2 Estimated GFR (Non- Aury >60 >=60 mL/min/1.73m 2 BUN Creatinine Ratio 29.9 Calcium 9.1 8.5-10.1 mg/dL Bilirubin Total 0.6 0.2-1.0 mg/dL Aspartate Amino Transferase 21 15-37 U/L Alanine Aminotransferase 21 16-63 U/L Alkaline Phosphatase 230 46-116 U/L Total Protein 6.3 6.4-8.2 g/dL Albumin Level 1.4 3.4-5.0 g/dL Globulin 4.9 Albumin Globulin Ratio 0.3 Performing Lab: see note ML - [facility] LB CBC AUTO DIFF Reviewed date:08/18/2024 08:27:53 AM Interpretation: Performing Lab: Notes/Report: [facility] , White Blood Count 1.5 4.0-11.0 10 3/uL Red Blood Count 4.61 4.70-6.10 10 6/uL Hemoglobin 10.6 14.0-18.0 g/dL Hematocrit 35.7 42.0-54.0 % Mean Corpuscular Volume 77.4 80.0-94.0 fL Mean Corpuscular Hemoglobin 23.0 25.9-34.0 pg Mean Corpuscular HGB Conc 29.7 29.9-35.2 g/dL Red Cell Distribution Width 16.1 11.0-15.0 % Platelet Count 330 150-450 10 3/uL Mean Platelet Volume 9.5 9.5-13.5 fL Performing Lab: see note ML - [facility] LB PROF 14(COMP METB) Reviewed date:08/18/2024 08:27:53 AM Interpretation: Performing Lab: Notes/Report: [facility] , Sodium 142 136-145 mmol/L Potassium 3.5 3.5-5.1 mmol/L Chloride 101 98-107 mmol/L Carbon Dioxide 30.5 21.0-32.0 mmol/L Anion Gap 14.0 Glucose 129 74-106 mg/dL Blood Urea Nitrogen 15.0 7.0-18.0 mg/dL Creatinine 0.81 0.70-1.30 mg/dL Estimated GFR ( Samantha >60 >=60 mL/min/1.73m 2 Estimated GFR (Non- Aury >60 >=60 mL/min/1.73m 2 BUN Creatinine Ratio 18.5 Calcium 8.6 8.5-10.1 mg/dL Bilirubin Total 0.5 0.2-1.0 mg/dL Aspartate Amino Transferase 17 15-37 U/L Alanine Aminotransferase 22 16-63 U/L Alkaline Phosphatase 228 46-116 U/L Total Protein 7.0 6.4-8.2 g/dL Albumin Level 1.8 3.4-5.0 g/dL Globulin 5.2 Albumin Globulin Ratio 0.3 Performing Lab: see note ML - [facility] LB CBC AUTO DIFF Reviewed date:08/18/2024 08:27:53 AM Interpretation: Performing Lab: Notes/Report: [facility] , White Blood Count 1.7 4.0-11.0 10 3/uL Red Blood Count 4.45 4.70-6.10 10 6/uL Hemoglobin 10.5 14.0-18.0 g/dL Hematocrit 35.0 42.0-54.0 % Mean Corpuscular Volume 78.7 80.0-94.0 fL Mean Corpuscular Hemoglobin 23.6 25.9-34.0 pg Mean Corpuscular HGB Conc 30.0 29.9-35.2 g/dL Red Cell Distribution Width 18.4 11.0-15.0 % Platelet Count 399 150-450 10 3/uL Mean Platelet Volume 9.4 9.5-13.5 fL Performing Lab: see note ML - [facility] LB FERRITIN Reviewed date:08/18/2024 08:27:53 AM Interpretation: Performing Lab: Notes/Report: [facility] , Ferritin 1497.0 26.0-388.0 ng/mL Performing Lab: see note - [facility] LB IRON AND TIBC Reviewed date:08/18/2024 08:27:53 AM Interpretation: Performing Lab: Notes/Report: [facility] , Iron 54.0 65.0-175.0 ug/dL Total Iron Binding Capacity 204.0 250.0-450.0 ug/dL Percent Iron Saturation 26.5 Performing Lab: see note - [facility] LB MAGNESIUM Reviewed date:08/18/2024 08:27:53 AM Interpretation: Performing Lab: Notes/Report: [facility] , Magnesium 1.9 1.8-2.4 mg/dL Performing Lab: see note [facility] LB PROF 14(COMP METB) Reviewed date:08/18/2024 08:27:53 AM Interpretation: Performing Lab: Notes/Report: [facility] , Sodium 141 136-145 mmol/L Potassium 3.4 3.5-5.1 mmol/L Chloride 104 98-107 mmol/L Carbon Dioxide 29.3 21.0-32.0 mmol/L Anion Gap 11.1 Glucose 191 74-106 mg/dL Blood Urea Nitrogen 12.0 7.0-18.0 mg/dL Creatinine 0.76 0.70-1.30 mg/dL Estimated GFR ( Samantha >60 >=60 mL/min/1.73m 2 Estimated GFR (Non- Aury >60 >=60 mL/min/1.73m 2 BUN Creatinine Ratio 15.8 Calcium 8.5 8.5-10.1 mg/dL Bilirubin Total 0.3 0.2-1.0 mg/dL Aspartate Amino Transferase 15 15-37 U/L Alanine Aminotransferase 14 16-63 U/L Alkaline Phosphatase 157 46-116 U/L Total Protein 6.4 6.4-8.2 g/dL Albumin Level 1.8 3.4-5.0 g/dL Globulin 4.6 Albumin Globulin Ratio 0.4 Performing Lab: see note ML - [facility] LB Manual Differential Reviewed date:08/18/2024 08:27:53 AM Interpretation: Performing Lab: Notes/Report: [facility] , Segmented Neutrophils % Manual 12.0 43.0-75.0 Lymphocytes Percent Manual 48.0 20.5-60.0 % Monocytes Percent Manual 32.0 1.7-12.0 % Eosinophils Percent Manual 6.0 0.9-7.0 % Basophils Percent Manual 2.0 0.2-2.0 % Segmented Neut Absolute Manual 0.20 1.4-6.5 10 3/uL Lymphocytes Absolute Manual 0.81 1.20-3.80 10 3/uL Monocytes Absolute Manual 0.54 0.30-0 .80 10 3/uL Eosinophils Absolute Manual 0.10 0.00-0.70 10 3/uL Basophils Abs Manual 0.03 0.00-0.10 1 0 3/uL Poikilocytosis 1+ Anisocytosis 1+ Tear Drop Cells 1+ Acanthocytes 1+ Performing Lab: see note ML - [facility] LB CBC AUTO DIFF Reviewed date:08/18/2024 08:27:53 AM Interpretation: Performing Lab: Notes/Report: [facility] , White Blood Count 29.1 4.0-11.0 10 3/uL Red Blood Count 4.66 4.70-6.10 10 6/uL Hemoglobin 11.3 14.0-18.0 g/dL Hematocrit 37.4 42.0-54.0 % Mean Corpuscular Volume 80.3 80.0-94.0 fL Mean Corpuscular Hemoglobin 24.2 25.9-34.0 pg Mean Corpuscular HGB Conc 30.2 29.9-35.2 g/dL Red Cell Distribution Width 20.3 11.0-15.0 % Platelet Count 421 150-450 10 3/uL Mean Platelet Volume 9.0 9.5-13.5 fL Performing Lab: see note ML - [facility] LB LDH Reviewed date:08/18/2024 08:27:53 AM Interpretation: Performing Lab: Notes/Report: [facility] , Lactate Dehydrogenase 190 85-227 U/L Performing Lab: see note - [facility] PROF 14(COMP METB) Reviewed date:08/18/2024 08:27:53 AM Interpretation: Performing Lab: Notes/Report: [facility] , Sodium 140 136-145 mmol/L Potassium 3.9 3.5-5.1 mmol/L Chloride 103 98-107 mmol/L Carbon Dioxide 28.5 21.0-32.0 mmol/L Anion Gap 12.4 Glucose 244 74-106 mg/dL Blood Urea Nitrogen 15.0 7.0-18.0 mg/dL Creatinine 0.79 0.70-1.30 mg/dL Estimated GFR ( Samantha >60 >=60 mL/min/1.73m 2 Estimated GFR (Non- Aury >60 >=60 mL/min/1.73m 2 BUN Creatinine Ratio 19.0 Calcium 8.5 8.5-10.1 mg/dL Bilirubin Total 0.3 0.2-1.0 mg/dL Aspartate Amino Transferase 16 15-37 U/L Alanine Aminotransferase 14 16-63 U/L Alkaline Phosphatase 170 46-116 U/L Total Protein 6.5 6.4-8.2 g/dL Albumin Level 2.3 3.4-5.0 g/dL Globulin 4.2 Albumin Globulin Ratio 0.5 Performing Lab: see note ML - [facility] LB Manual Differential Reviewed date:08/18/2024 08:27:53 AM Interpretation: Performing Lab: Notes/Report: [facility] , Segmented Neutrophils % Manual 62.0 43.0-75.0 Band Neutrophils % 3.0 0-5 % Lymphocytes Percent Manual 15.0 20.5-60.0 % Monocytes Percent Manual 17.0 1.7-12.0 % Eosinophils Percent Manual 0.0 0.9-7.0 % Basophils Percent Manual 1.0 0.2-2.0 % Metamyelocytes % 1.0 Myelocytes % Manual 1.0 Segmented Neut Absolute Manual 11.59 1.4-6.5 10 3/uL Band Neutrophils Absolute 0.6 0.0-0.3 10 3/uL Lymphocytes Absolute Manual 2.80 1.20-3.80 10 3/uL Monocytes Absolute Manual 3.17 0.30-0 .80 10 3/uL Eosinophils Absolute Manual 0.00 0.00-0.70 10 3/uL Basophils Abs Manual 0.18 0.00-0.10 1 0 3/uL Metamyelocytes Absolute Manual 0.18 Myelocytes Absolute Manual 0.18 Nucleated Red Blood Cells 2 Anisocytosis 1+ Microcytosis 1+ Performing Lab: see note ML - [facility] LB CBC AUTO DIFF Reviewed date:08/18/2024 08:27:53 AM Interpretation: Performing Lab: Notes/Report: [facility] , White Blood Count 2.5 4.0-11.0 10 3/uL Red Blood Count 4.45 4.70-6.10 10 6/uL Hemoglobin 11.5 14.0-18.0 g/dL Hematocrit 37.0 42.0-54.0 % Mean Corpuscular Volume 83.1 80.0-94.0 fL Mean Corpuscular Hemoglobin 25.8 25.9-34.0 pg Mean Corpuscular HGB Conc 31.1 29.9-35.2 g/dL Red Cell Distribution Width 24.2 11.0-15.0 % Platelet Count 349 150-450 10 3/uL Mean Platelet Volume 9.8 9.5-13.5 fL Performing Lab: see note [facility] LB Manual Differential Reviewed date:08/18/2024 08:27:53 AM Interpretation: Performing Lab: Notes/Report: [facility] , Segmented Neutrophils % Manual 21.0 43.0-75.0 Lymphocytes Percent Manual 42.0 20.5-60.0 % Monocytes Percent Manual 20.0 1.7-12.0 % Eosinophils Percent Manual 11.0 0.9-7.0 % Basophils Percent Manual 6.0 0.2-2.0 % Segmented Neut Absolute Manual 0.52 1.4-6.5 10 3/uL Lymphocytes Absolute Manual 1.05 1.20-3.80 10 3/uL Monocytes Absolute Manual 0.50 0.30-0 .80 10 3/uL Eosinophils Absolute Manual 0.27 0.00-0.70 10 3/uL Basophils Abs Manual 0.15 0.00-0.10 1 0 3/uL Performing Lab: see note - [facility] LB CBC AUTO DIFF Reviewed date:08/18/2024 08:27:53 AM Interpretation: Performing Lab: Notes/Report: [facility] , White Blood Count 4.9 4.0-11.0 10 3/uL Red Blood Count 4.32 4.70-6.10 10 6/uL Hemoglobin 11.3 14.0-18.0 g/dL Hematocrit 36.9 42.0-54.0 % Mean Corpuscular Volume 85.4 80.0-94.0 fL Mean Corpuscular Hemoglobin 26.2 25.9-34.0 pg Mean Corpuscular HGB Conc 30.6 29.9-35.2 g/dL Red Cell Distribution Width 24.3 11.0-15.0 % Platelet Count 341 150-450 10 3/uL Mean Platelet Volume 10.0 9.5-13.5 fL Neutrophils Percent Auto 34.2 43.0-75.0 % Lymphocytes Percent Auto 27.8 20.5-60.0 % Monocytes Percent Auto 25.4 1.7-12.0 % Eosinophils Percent Auto 9.5 0.9-7.0 % Basophils Percent Auto 1.2 0.2-2.0 % Immature Granulocytes Pct Auto 1.9 0.0-0.5 % Neutrophils Absolute Auto 1.7 1.4-6.5 10 3/uL Lymphocytes Absolute Auto 1.4 1.2-3.8 10 3/uL Monocytes Absolute Auto 1.2 0.3-0.8 10 3/uL Eosinophils Absolute Auto 0.5 0.0-0.7 10 3/uL Basophils Absolute Auto 0.1 0.0-0.1 10 3/uL Immature Granulocytes Abs Auto 0.09 0.00-0.03 10 3/uL Performing Lab: see note ML - [facility] LB CBC AUTO DIFF Reviewed date:08/18/2024 08:27:53 AM Interpretation: Performing Lab: Notes/Report: [facility] , White Blood Count 12.1 4.0-11.0 10 3/uL Red Blood Count 4.55 4.70-6.10 10 6/uL Hemoglobin 12.2 14.0-18.0 g/dL Hematocrit 39.0 42.0-54.0 % Mean Corpuscular Volume 85.7 80.0-94.0 fL Mean Corpuscular Hemoglobin 26.8 25.9-34.0 pg Mean Corpuscular HGB Conc 31.3 29.9-35.2 g/dL Red Cell Distribution Width 23.6 11.0-15.0 % Platelet Count 328 150-450 10 3/uL Mean Platelet Volume 9.8 9.5-13.5 fL Performing Lab: see note ML - [facility] LB LDH Reviewed date:08/18/2024 08:27:53 AM Interpretation: Performing Lab: Notes/Report: [facility] , Lactate Dehydrogenase 194 85-227 U/L Performing Lab: see note ML - [facility] LB MAGNESIUM Reviewed date:08/18/2024 08:27:53 AM Interpretation: Performing Lab: Notes/Report: [facility] , Magnesium 1.8 1.8-2.4 mg/dL Performing Lab: see note - [facility] LB PROF 14(COMP METB) Reviewed date:08/18/2024 08:27:53 AM Interpretation: Performing Lab: Notes/Report: [facility] , Sodium 143 136-145 mmol/L Potassium 4.2 3.5-5.1 mmol/L Chloride 107 98-107 mmol/L Carbon Dioxide 30.5 21.0-32.0 mmol/L Anion Gap 9.7 Glucose 107 74-106 mg/dL Blood Urea Nitrogen 19.0 7.0-18.0 mg/dL Creatinine 0.95 0.70-1.30 mg/dL Estimated GFR ( Samantha >60 >=60 mL/min/1.73m 2 Estimated GFR (Non- Aury >60 >=60 mL/min/1.73m 2 BUN Creatinine Ratio 20.0 Calcium 8.9 8.5-10.1 mg/dL Bilirubin Total 0.3 0.2-1.0 mg/dL Aspartate Amino Transferase 17 15-37 U/L Alanine Aminotransferase 16 16-63 U/L Alkaline Phosphatase 98 46-116 U/L Total Protein 6.2 6.4-8.2 g/dL Albumin Level 2.8 3.4-5.0 g/dL Globulin 3.4 Albumin Globulin Ratio 0.8 Performing Lab: see note ML - [facility] LB Manual Differential Reviewed date:08/18/2024 08:27:53 AM Interpretation: Performing Lab: Notes/Report: [facility] , Segmented Neutrophils % Manual 67.0 43.0-75.0 Band Neutrophils % 4.0 0-5 % Lymphocytes Percent Manual 14.0 20.5-60.0 % Monocytes Percent Manual 10.0 1.7-12.0 % Eosinophils Percent Manual 4.0 0.9-7.0 % Basophils Percent Manual 0.0 0.2-2.0 % Metamyelocytes % 1.0 Segmented Neut Absolute Manual 8.10 1.4-6.5 10 3/uL Band Neutrophils Absolute 0.5 0.0-0.3 10 3/uL Lymphocytes Absolute Manual 1.69 1.20-3.80 10 3/uL Monocytes Absolute Manual 1.21 0.30-0 .80 10 3/uL Eosinophils Absolute Manual 0.48 0.00-0.70 10 3/uL Basophils Abs Manual 0.00 0.00-0.10 1 0 3/uL Metamyelocytes Absolute Manual 0.12 Anisocytosis 2+ Performing Lab: see note - [facility] LB LDH Reviewed date:08/18/2024 08:27:53 AM Interpretation: Performing Lab: Notes/Report: [facility] , Lactate Dehydrogenase 176 85-227 U/L Performing Lab: see note [facility] LB PROF 14(COMP METB) Reviewed date:08/18/2024 08:27:53 AM Interpretation: Performing Lab: Notes/Report: [facility] , Sodium 144 136-145 mmol/L Potassium 4.0 3.5-5.1 mmol/L Chloride 108 98-107 mmol/L Carbon Dioxide 31.4 21.0-32.0 mmol/L Anion Gap 8.6 Glucose 136 74-106 mg/dL Blood Urea Nitrogen 15.0 7.0-18.0 mg/dL Creatinine 0.88 0.70-1.30 mg/dL Estimated GFR ( Samantha >60 >=60 mL/min/1.73m 2 Estimated GFR (Non- Aury >60 >=60 mL/min/1.73m 2 BUN Creatinine Ratio 17.0 Calcium 8.8 8.5-10.1 mg/dL Bilirubin Total 0.2 0.2-1.0 mg/dL Aspartate Amino Transferase 17 15-37 U/L Alanine Aminotransferase 21 16-63 U/L Alkaline Phosphatase 124 46-116 U/L Total Protein 6.5 6.4-8.2 g/dL Albumin Level 3.1 3.4-5.0 g/dL Globulin 3.4 Albumin Globulin Ratio 0.9 Performing Lab: see note - [facility] LB COPPER, SERUM or PLASMA Reviewed date:08/18/2024 08:27:53 AM Interpretation: Performing Lab: Notes/Report: [facility] , Copper Level 132 69-132 ug/dL This test was developed and its performance characteristics determined by [facility]. It has not been cleared or approved by the Food and Drug Administration. Detection Limit = 5 Performed at: [address] [id number] Testboard Operator: Ash Wilcox MD, Phone: [phone] Performing Lab: see note [facility] GLYCOHEMOGLOBIN A1C Reviewed date:08/12/2024 04:06:55 PM Interpretation: Performing Lab: Notes/Report: [facility] , Glycohemoglobin A1C 6.0 4.5-6.2 % ADA RECOMMENDED LIMIT 4.0 - 6.0 ADA THERAPEUTIC TARGET < 7.0 ACTION SUGGESTED > 7.0 Estimated Average Glucose 126 Performing Lab: see note - [facility] LB TSH Reviewed date:08/12/2024 04:06:27 PM Interpretation: Performing Lab: Notes/Report: [facility] , Thyroid Stimulating Hormone 1.628 0.358-3.740 uIU/mL Performing Lab: see note - [facility] Vitamin B6, Plasma Reviewed date:08/15/2024 02:42:20 PM Interpretation: Performing Lab: Notes/Report: [facility] , Vitamin B6, Plasma 2.3 3.4-65.2 ug/L This test was developed and its performance characteristics determined by [facility]. It has not been cleared or approved by the Food and Drug Administration. Deficiency: <3.4 Marginal: 3.4 - 5.1 Adequate: >5.1 Performed at: [address] [id number] Testboard Operator: Ash Wilcox MD, Phone: [phone] Performing Lab: see note [facility] Rapid Plasma Reagin, Quant Reviewed date:08/18/2024 08:27:53 AM Interpretation: Performing Lab: Notes/Report: [facility] , Rapid Plasma Reagin, Quant Non Reactive NonRea<1:1 titer Please Note: This test does not meet current guidelines for screening and diagnosis of syphilis. This test is intended for following treatment response in patients being treated for syphilis infection. To screen for syphilis infection, a reflex cascade that includes both RPR and a treponema-specific assay should be utilized, such as Treponema pallidum (Syphilis) Screening [place] (136278) or Rapid Plasma Reagin (RPR) Test With Reflex to Quantitative RPR and Confirmatory Treponema pallidum Antibodies (086688). Performed at: [address] [id number] Testboard Operator: Neville Long PhD, Phone: [phone] Performing Lab: see note - [facility] LB Immunofixation, Serum Reviewed date:08/18/2024 08:27:53 AM Interpretation: Performing Lab: Notes/Report: [facility] , Immunofixation Result, Serum Comment: . Presence of monoclonal protein is unclear at this time. Suggest repeat in 3 to 6 months if clinically indicated. Immunoglobulin G, Qn, Serum 480 491-7822 mg/dL Immunoglobulin A, Qn, Serum 132 61-437 mg/dL Immunoglobulin M, Qn, Serum 26 20-172 mg/dL Result confirmed on concentration. Performed at: [facility] [employer] [id number] Testboard Operator: Neville Long PhD, Phone: [phone] Performing Lab: see note - [facility] LB CRP Reviewed date:08/18/2024 08:27:53 AM Interpretation: Performing Lab: Notes/Report: [facility] , C Reactive Protein 0.60 <=0.50 mg/dL Performing Lab: see note ML - [facility] LB IRON AND TIBC Reviewed date:08/18/2024 08:27:53 AM Interpretation: Performing Lab: Notes/Report: [facility] , Iron 130.0 65.0-175.0 ug/dL Total Iron Binding Capacity 279.0 250.0-450.0 ug/dL Percent Iron Saturation 46.6 Performing Lab: see note ML - [facility] LB Erythrocyte Sedimentation Ra te Reviewed date:08/18/2024 08:27:53 AM Interpretation: Performing Lab: Notes/Report: [facility] , Erythrocyte Sedimentation Rate 41 <=20 mm/hr Performing Lab: see note ML - [facility] LB Manual Differential (Not yet reviewed by provider) Interpretation: Performing Lab: Notes/Report: [facility] , Segmented Neutrophils % Manual 63.0 43.0-75.0 Band Neutrophils % 6.0 0-5 % Lymphocytes Percent Manual 12.0 20.5-60.0 % Monocytes Percent Manual 16.0 1.7-12.0 % Eosinophils Percent Manual 1.0 0.9-7.0 % Basophils Percent Manual 1.0 0.2-2.0 % Myelocytes % Manual 1.0 Segmented Neut Absolute Manual 8.50 1.4-6.5 10 3/uL Band Neutrophils Absolute 0.8 0.0-0.3 10 3/uL Lymphocytes Absolute Manual 1.62 1.20-3.80 10 3/uL Monocytes Absolute Manual 2.16 0.30-0 .80 10 3/uL Eosinophils Absolute Manual 0.13 0.00-0.70 10 3/uL Basophils Abs Manual 0.13 0.00-0.10 1 0 3/uL Myelocytes Absolute Manual 0.13 Poikilocytosis 1+ Anisocytosis 1+ Tear Drop Cells 1+ Performing Lab: see note ML - [facility] LB CBC AUTO DIFF (Not yet revie wed by provider) Interpretation: Performing Lab: Notes/Report: [facility] , White Blood Count 18.1 4.0-11.0 10 3/uL Red Blood Count 4.72 4.70-6.10 10 6/uL Hemoglobin 13.9 14.0-18.0 g/dL Hematocrit 42.8 42.0-54.0 % Mean Corpuscular Volume 90.7 80.0-94.0 fL Mean Corpuscular Hemoglobin 29.4 25.9-34.0 pg Mean Corpuscular HGB Conc 32.5 29.9-35.2 g/dL Red Cell Distribution Width 19.3 11.0-15.0 % Platelet Count 368 150-450 10 3/uL Mean Platelet Volume 9.5 9.5-13.5 fL Performing Lab: see note ML - [facility] LB LDH (Not yet reviewed by pro vider) Interpretation: Performing Lab: Notes/Report: [facility] , Lactate Dehydrogenase 158 85-227 U/L Performing Lab: see note - [facility] LB PROF 14(COMP METB) (Not yet reviewed by provider) Interpretation: Performing Lab: Notes/Report: [facility] , Sodium 139 136-145 mmol/L Potassium 4.1 3.5-5.1 mmol/L Chloride 105 98-107 mmol/L Carbon Dioxide 30.0 21.0-32.0 mmol/L Anion Gap 8.1 Glucose 158 74-106 mg/dL Blood Urea Nitrogen 19.0 7.0-18.0 mg/dL Creatinine 0.92 0.70-1.30 mg/dL Estimated GFR ( Samantha >60 >=60 mL/min/1.73m 2 Estimated GFR (Non- Aury >60 >=60 mL/min/1.73m 2 BUN Creatinine Ratio 20.7 Calcium 9.0 8.5-10.1 mg/dL Bilirubin Total 0.3 0.2-1.0 mg/dL Aspartate Amino Transferase 21 15-37 U/L Alanine Aminotransferase 30 16-63 U/L Alkaline Phosphatase 121 46-116 U/L Total Protein 6.3 6.4-8.2 g/dL Albumin Level 3.2 3.4-5.0 g/dL Globulin 3.1 Albumin Globulin Ratio 1.0 Performing Lab: see note ML - [facility] LB CBC AUTO DIFF (Not yet revie wed by provider) Interpretation: Performing Lab: Notes/Report: [facility] , White Blood Count 17.5 4.0-11.0 10 3/uL Red Blood Count 4.54 4.70-6.10 10 6/uL Hemoglobin 13.6 14.0-18.0 g/dL Hematocrit 41.5 42.0-54.0 % Mean Corpuscular Volume 91.4 80.0-94.0 fL Mean Corpuscular Hemoglobin 30.0 25.9-34.0 pg Mean Corpuscular HGB Conc 32.8 29.9-35.2 g/dL Red Cell Distribution Width 16.8 11.0-15.0 % Platelet Count 220 150-450 10 3/uL Mean Platelet Volume 10.0 9.5-13.5 fL Neutrophils Percent Auto 79.4 43.0-75.0 % Lymphocytes Percent Auto 7.7 20.5-60.0 % Monocytes Percent Auto 8.5 1.7-12.0 % Eosinophils Percent Auto 2.7 0.9-7.0 % Basophils Percent Auto 0.9 0.2-2.0 % Immature Granulocytes Pct Auto 0.8 0.0-0.5 % Neutrophils Absolute Auto 13.9 1.4-6.5 10 3/uL Lymphocytes Absolute Auto 1.3 1.2-3.8 10 3/uL Monocytes Absolute Auto 1.5 0.3-0.8 10 3/uL Eosinophils Absolute Auto 0.5 0.0-0.7 10 3/uL Basophils Absolute Auto 0.2 0.0-0.1 10 3/uL Immature Granulocytes Abs Auto 0.14 0.00-0.03 10 3/uL Performing Lab: see note ML - [facility] LB LDH (Not yet reviewed by pro vider) Interpretation: Performing Lab: Notes/Report: [facility] , Lactate Dehydrogenase 129 85-227 U/L Performing Lab: see note ML - [facility] LB MAGNESIUM (Not yet reviewed by provider) Interpretation: Performing Lab: Notes/Report: [facility] , Magnesium 1.9 1.8-2.4 mg/dL Performing Lab: see note ML - [facility] LB PROF 14(COMP METB) (Not yet reviewed by provider) Interpretation: Performing Lab: Notes/Report: [facility] , Sodium 141 136-145 mmol/L Potassium 4.4 3.5-5.1 mmol/L Chloride 107 98-107 mmol/L Carbon Dioxide 30.4 21.0-32.0 mmol/L Anion Gap 8.0 Glucose 125 74-106 mg/dL Blood Urea Nitrogen 16.0 7.0-18.0 mg/dL Creatinine 0.78 0.70-1.30 mg/dL Estimated GFR ( Samantha >60 >=60 mL/min/1.73m 2 Estimated GFR (Non- Aury >60 >=60 mL/min/1.73m 2 BUN Creatinine Ratio 20.5 Calcium 8.8 8.5-10.1 mg/dL Bilirubin Total 0.4 0.2-1.0 mg/dL Aspartate Amino Transferase 27 15-37 U/L Alanine Aminotransferase 36 16-63 U/L Alkaline Phosphatase 104 46-116 U/L Total Protein 6.3 6.4-8.2 g/dL Albumin Level 3.2 3.4-5.0 g/dL Globulin 3.1 Albumin Globulin Ratio 1.0 Performing Lab: see note ML - [facility] LB Manual Differential (Not yet reviewed by provider) Interpretation: Performing Lab: Notes/Report: [facility] , Segmented Neutrophils % Manual 40.0 43.0-75.0 Lymphocytes Percent Manual 24.0 20.5-60.0 % Monocytes Percent Manual 22.0 1.7-12.0 % Eosinophils Percent Manual 12.0 0.9-7.0 % Basophils Percent Manual 2.0 0.2-2.0 % Segmented Neut Absolute Manual 0.92 1.4-6.5 10 3/uL Lymphocytes Absolute Manual 0.55 1.20-3.80 10 3/uL Monocytes Absolute Manual 0.50 0.30-0 .80 10 3/uL Eosinophils Absolute Manual 0.27 0.00-0.70 10 3/uL Basophils Abs Manual 0.04 0.00-0.10 1 0 3/uL Performing Lab: see note ML - [facility] LB CBC AUTO DIFF (Not yet revie wed by provider) Interpretation: Performing Lab: Notes/Report: [facility] , White Blood Count 7.6 4.0-11.0 10 3/uL Red Blood Count 4.58 4.70-6.10 10 6/uL Hemoglobin 13.8 14.0-18.0 g/dL Hematocrit 42.8 42.0-54.0 % Mean Corpuscular Volume 93.4 80.0-94.0 fL Mean Corpuscular Hemoglobin 30.1 25.9-34.0 pg Mean Corpuscular HGB Conc 32.2 29.9-35.2 g/dL Red Cell Distribution Width 13.9 11.0-15.0 % Platelet Count 204 150-450 10 3/uL Mean Platelet Volume 10.0 9.5-13.5 fL Neutrophils Percent Auto 63.6 43.0-75.0 % Lymphocytes Percent Auto 8.2 20.5-60.0 % Monocytes Percent Auto 7.9 1.7-12.0 % Eosinophils Percent Auto 19.6 0.9-7.0 % Basophils Percent Auto 0.4 0.2-2.0 % Immature Granulocytes Pct Auto 0.3 0.0-0.5 % Neutrophils Absolute Auto 4.8 1.4-6.5 10 3/uL Lymphocytes Absolute Auto 0.6 1.2-3.8 10 3/uL Monocytes Absolute Auto 0.6 0.3-0.8 10 3/uL Eosinophils Absolute Auto 1.5 0.0-0.7 10 3/uL Basophils Absolute Auto 0.0 0.0-0.1 10 3/uL Immature Granulocytes Abs Auto 0.02 0.00-0.03 10 3/uL Performing Lab: see note ML - [facility] LB CRP (Not yet reviewed by pro vider) Interpretation: Performing Lab: Notes/Report: [facility] , C Reactive Protein <0.50 <=0.50 mg/dL Performing Lab: see note ML - [facility] LB IRON AND TIBC (Not yet revie wed by provider) Interpretation: Performing Lab: Notes/Report: [facility] , Iron 104.0 65.0-175.0 ug/dL Total Iron Binding Capacity 268.0 250.0-450.0 ug/dL Percent Iron Saturation 38.8 Performing Lab: see note ML - [facility] LB LDH (Not yet reviewed by pro vider) Interpretation: Performing Lab: Notes/Report: [facility] , Lactate Dehydrogenase 208 85-227 U/L Performing Lab: see note ML - [facility] LB PROF 14(COMP METB) (Not yet reviewed by provider) Interpretation: Performing Lab: Notes/Report: [facility] , Sodium 146 136-145 mmol/L Potassium 4.1 3.5-5.1 mmol/L Chloride 110 98-107 mmol/L Carbon Dioxide 29.8 21.0-32.0 mmol/L Anion Gap 10.3 Glucose 113 74-106 mg/dL Blood Urea Nitrogen 20.0 7.0-18.0 mg/dL Creatinine 0.85 0.70-1.30 mg/dL Estimated GFR ( Samantha >60 >=60 mL/min/1.73m 2 Estimated GFR (Non- Aury >60 >=60 mL/min/1.73m 2 BUN Creatinine Ratio 23.5 Calcium 9.2 8.5-10.1 mg/dL Bilirubin Total 0.5 0.2-1.0 mg/dL Aspartate Amino Transferase 22 15-37 U/L Alanine Aminotransferase 29 16-63 U/L Alkaline Phosphatase 82 46-116 U/L Total Protein 6.3 6.4-8.2 g/dL Albumin Level 3.1 3.4-5.0 g/dL Globulin 3.2 Albumin Globulin Ratio 1.0 Performing Lab: see note ML - [facility] LB Erythrocyte Sedimentation Ra te (Not yet reviewed by provider) Interpretation: Performing Lab: Notes/Report: [facility] , Erythrocyte Sedimentation Rate 11 <=20 mm/hr Performing Lab: see note - [facility] LB CBC AUTO DIFF (Not yet revie wed by provider) Interpretation: Performing Lab: Notes/Report: [facility] , White Blood Count 5.6 4.0-11.0 10 3/uL Red Blood Count 4.79 4.70-6.10 10 6/uL Hemoglobin 14.7 14.0-18.0 g/dL Hematocrit 43.9 42.0-54.0 % Mean Corpuscular Volume 91.6 80.0-94.0 fL Mean Corpuscular Hemoglobin 30.7 25.9-34.0 pg Mean Corpuscular HGB Conc 33.5 29.9-35.2 g/dL Red Cell Distribution Width 13.2 11.0-15.0 % Platelet Count 183 150-450 10 3/uL Mean Platelet Volume 9.8 9.5-13.5 fL Neutrophils Percent Auto 67.1 43.0-75.0 % Lymphocytes Percent Auto 14.0 20.5-60.0 % Monocytes Percent Auto 10.8 1.7-12.0 % Eosinophils Percent Auto 7.2 0.9-7.0 % Basophils Percent Auto 0.5 0.2-2.0 % Immature Granulocytes Pct Auto 0.4 0.0-0.5 % Neutrophils Absolute Auto 3.7 1.4-6.5 10 3/uL Lymphocytes Absolute Auto 0.8 1.2-3.8 10 3/uL Monocytes Absolute Auto 0.6 0.3-0.8 10 3/uL Eosinophils Absolute Auto 0.4 0.0-0.7 10 3/uL Basophils Absolute Auto 0.0 0.0-0.1 10 3/uL Immature Granulocytes Abs Auto 0.02 0.00-0.03 10 3/uL Performing Lab: see note - [facility] LB LDH (Not yet reviewed by pro vider) Interpretation: Performing Lab: Notes/Report: [facility] , Lactate Dehydrogenase 136 85-227 U/L Performing Lab: see note - [facility] LB PROF 14(COMP METB) (Not yet reviewed by provider) Interpretation: Performing Lab: Notes/Report: [facility] , Sodium 144 136-145 mmol/L Potassium 4.0 3.5-5.1 mmol/L Chloride 107 98-107 mmol/L Carbon Dioxide 30.9 21.0-32.0 mmol/L Anion Gap 10.1 Glucose 84 74-106 mg/dL Blood Urea Nitrogen 18.0 7.0-18.0 mg/dL Creatinine 0.82 0.70-1.30 mg/dL Estimated GFR ( Samantha >60 >=60 mL/min/1.73m 2 Estimated GFR (Non- Aury >60 >=60 mL/min/1.73m 2 BUN Creatinine Ratio 22.0 Calcium 9.0 8.5-10.1 mg/dL Bilirubin Total 0.4 0.2-1.0 mg/dL Aspartate Amino Transferase 21 15-37 U/L Alanine Aminotransferase 30 16-63 U/L Alkaline Phosphatase 66 46-116 U/L Total Protein 6.4 6.4-8.2 g/dL Albumin Level 3.2 3.4-5.0 g/dL Globulin 3.2 Albumin Globulin Ratio 1.0 Performing Lab: see note ML - [facility] LB CBC AUTO DIFF (Not yet revie wed by provider) Interpretation: Performing Lab: Notes/Report: [facility] , White Blood Count 7.4 4.0-11.0 10 3/uL Red Blood Count 5.10 4.70-6.10 10 6/uL Hemoglobin 15.6 14.0-18.0 g/dL Hematocrit 46.0 42.0-54.0 % Mean Corpuscular Volume 90.2 80.0-94.0 fL Mean Corpuscular Hemoglobin 30.6 25.9-34.0 pg Mean Corpuscular HGB Conc 33.9 29.9-35.2 g/dL Red Cell Distribution Width 13.2 11.0-15.0 % Platelet Count 205 150-450 10 3/uL Mean Platelet Volume 9.8 9.5-13.5 fL Neutrophils Percent Auto 71.3 43.0-75.0 % Lymphocytes Percent Auto 13.2 20.5-60.0 % Monocytes Percent Auto 9.5 1.7-12.0 % Eosinophils Percent Auto 5.0 0.9-7.0 % Basophils Percent Auto 0.7 0.2-2.0 % Immature Granulocytes Pct Auto 0.3 0.0-0.5 % Neutrophils Absolute Auto 5.2 1.4-6.5 10 3/uL Lymphocytes Absolute Auto 1.0 1.2-3.8 10 3/uL Monocytes Absolute Auto 0.7 0.3-0.8 10 3/uL Eosinophils Absolute Auto 0.4 0.0-0.7 10 3/uL Basophils Absolute Auto 0.1 0.0-0.1 10 3/uL Immature Granulocytes Abs Auto 0.02 0.00-0.03 10 3/uL Performing Lab: see note ML - [facility] LB LDH (Not yet reviewed by pro vider) Interpretation: Performing Lab: Notes/Report: [facility] , Lactate Dehydrogenase 126 85-227 U/L Performing Lab: see note ML - [facility] LB PROF 14(COMP METB) (Not yet reviewed by provider) Interpretation: Performing Lab: Notes/Report: [facility] , Sodium 144 136-145 mmol/L Potassium 4.2 3.5-5.1 mmol/L Chloride 105 98-107 mmol/L Carbon Dioxide 33.7 21.0-32.0 mmol/L Anion Gap 9.5 Glucose 101 74-106 mg/dL Blood Urea Nitrogen 29.0 7.0-18.0 mg/dL Creatinine 0.85 0.70-1.30 mg/dL Estimated GFR ( Samantha >60 >=60 mL/min/1.73m 2 Estimated GFR (Non- Aury >60 >=60 mL/min/1.73m 2 BUN Creatinine Ratio 34.1 Calcium 9.2 8.5-10.1 mg/dL Bilirubin Total 0.6 0.2-1.0 mg/dL Aspartate Amino Transferase 26 15-37 U/L Alanine Aminotransferase 30 16-63 U/L Alkaline Phosphatase 83 46-116 U/L Total Protein 7.0 6.4-8.2 g/dL Albumin Level 3.6 3.4-5.0 g/dL Globulin 3.4 Albumin Globulin Ratio 1.1 Performing Lab: see note ML - [facility] LB CBC AUTO DIFF (Not yet revie wed by provider) Interpretation: Performing Lab: Notes/Report: [facility] , White Blood Count 7.3 4.0-11.0 10 3/uL Red Blood Count 4.96 4.70-6.10 10 6/uL Hemoglobin 15.1 14.0-18.0 g/dL Hematocrit 45.4 42.0-54.0 % Mean Corpuscular Volume 91.5 80.0-94.0 fL Mean Corpuscular Hemoglobin 30.4 25.9-34.0 pg Mean Corpuscular HGB Conc 33.3 29.9-35.2 g/dL Red Cell Distribution Width 13.6 11.0-15.0 % Platelet Count 209 150-450 10 3/uL Mean Platelet Volume 9.7 9.5-13.5 fL Neutrophils Percent Auto 68.8 43.0-75.0 % Lymphocytes Percent Auto 14.3 20.5-60.0 % Monocytes Percent Auto 9.8 1.7-12.0 % Eosinophils Percent Auto 5.9 0.9-7.0 % Basophils Percent Auto 0.7 0.2-2.0 % Immature Granulocytes Pct Auto 0.5 0.0-0.5 % Neutrophils Absolute Auto 5.0 1.4-6.5 10 3/uL Lymphocytes Absolute Auto 1.1 1.2-3.8 10 3/uL Monocytes Absolute Auto 0.7 0.3-0.8 10 3/uL Eosinophils Absolute Auto 0.4 0.0-0.7 10 3/uL Basophils Absolute Auto 0.1 0.0-0.1 10 3/uL Immature Granulocytes Abs Auto 0.04 0.00-0.03 10 3/uL Performing Lab: see note ML - [facility] LB LDH (Not yet reviewed by pro vider) Interpretation: Performing Lab: Notes/Report: [facility] , Lactate Dehydrogenase 127 85-227 U/L Performing Lab: see note ML - [facility] LB PROF 14(COMP METB) (Not yet reviewed by provider) Interpretation: Performing Lab: Notes/Report: [facility] , Sodium 144 136-145 mmol/L Potassium 4.0 3.5-5.1 mmol/L Chloride 107 98-107 mmol/L Carbon Dioxide 29.3 21.0-32.0 mmol/L Anion Gap 11.7 Glucose 108 74-106 mg/dL Blood Urea Nitrogen 22.0 7.0-18.0 mg/dL Creatinine 0.85 0.70-1.30 mg/dL Estimated GFR ( Samantha >60 >=60 mL/min/1.73m 2 Estimated GFR (Non- Aury >60 >=60 mL/min/1.73m 2 BUN Creatinine Ratio 25.9 Calcium 9.3 8.5-10.1 mg/dL Bilirubin Total 0.7 0.2-1.0 mg/dL Aspartate Amino Transferase 26 15-37 U/L Alanine Aminotransferase 42 16-63 U/L Alkaline Phosphatase 89 46-116 U/L Total Protein 6.8 6.4-8.2 g/dL Albumin Level 3.4 3.4-5.0 g/dL Globulin 3.4 Albumin Globulin Ratio 1.0 Performing Lab: see note ML - [facility] LB FERRITIN (Not yet reviewed b y provider) Interpretation: Performing Lab: Notes/Report: [facility] , Ferritin 158.0 26.0-388.0 ng/mL Performing Lab: see note ML - [facility] LB CBC AUTO DIFF (Not yet revie wed by provider) Interpretation: Performing Lab: Notes/Report: [facility] , White Blood Count 2.3 4.0-11.0 10 3/uL Red Blood Count 4.32 4.70-6.10 10 6/uL Hemoglobin 12.9 14.0-18.0 g/dL Hematocrit 38.8 42.0-54.0 % Mean Corpuscular Volume 89.8 80.0-94.0 fL Mean Corpuscular Hemoglobin 29.9 25.9-34.0 pg Mean Corpuscular HGB Conc 33.2 29.9-35.2 g/dL Red Cell Distribution Width 15.8 11.0-15.0 % Platelet Count 215 150-450 10 3/uL Mean Platelet Volume 10.2 9.5-13.5 fL Performing Lab: see note ML - [facility] LB PROF 14(COMP METB) (Not yet reviewed by provider) Interpretation: Performing Lab: Notes/Report: [facility] , Sodium 141 136-145 mmol/L Potassium 4.1 3.5-5.1 mmol/L Chloride 107 98-107 mmol/L Carbon Dioxide 32.1 21.0-32.0 mmol/L Anion Gap 6.0 Glucose 144 74-106 mg/dL Blood Urea Nitrogen 21.0 7.0-18.0 mg/dL Creatinine 0.82 0.70-1.30 mg/dL Estimated GFR ( Samantha >60 >=60 mL/min/1.73m 2 Estimated GFR (Non- Aury >60 >=60 mL/min/1.73m 2 BUN Creatinine Ratio 25.6 Calcium 9.2 8.5-10.1 mg/dL Bilirubin Total 0.3 0.2-1.0 mg/dL Aspartate Amino Transferase 24 15-37 U/L Alanine Aminotransferase 32 16-63 U/L Alkaline Phosphatase 109 46-116 U/L Total Protein 6.4 6.4-8.2 g/dL Albumin Level 3.1 3.4-5.0 g/dL Globulin 3.3 Albumin Globulin Ratio 0.9 Performing Lab: see note ML - [facility] LB PET skull to mid thigh (Not yet reviewed by provider) Interpretation: Performing Lab: Notes/Report: Source Facility: [place] [address] PET Report Signed Patient: NABEEL TRAN MR#: [id number] : 1955 Acct:[id number] Age/Sex: 69 / M ADM Date: 09/08/24 Loc: PETCT Attending Dr: Sonia Donnelly M.D. Ordering Physician: Sonia Donnelly M.D. Date of Service: 09/08/24 Procedure(s): PET skull to mid thigh Accession Number(s): [id number] cc: AILIN GREEN ; Sonia Donnelly M.D. [facility] [place] [address] Patient Name: NABEEL TRAN MRN: [id number] date: 1955 Sex: M Assigned Patient Location: PETCT Current Patient Location: PETCT Accession/Order Number: [id number] Exam Date: 09/08/2024 15:00 Report Date: 09/15/2024 15:02 At the request of: SNOIA DONNELLY Procedure: PET skull to mid thigh PET/CT: HISTORY: Lymphoma, status post chemotherapy. COMPARISON: PET/CT 05/12/2024. TECHNIQUE: The patient was injected with 13.62 mCi of F-18 fluorodeoxyglucose (FDG), and an emission scan was performed from the vertex of the skull to the mid thigh. Noncontrast CT was performed for attenuation correction and anatomic localization. The blood glucose level was 131 mg/dl. The uptake time was 52 minutes. FINDINGS: HEAD AND NECK: The previously seen hypermetabolic right supraclavicular lymphadenopathy has resolved. CHEST: The SUVmax of the mediastinum = 2.1 using the patient's body weight as the normalization method. Hypermetabolic right axillary and subpectoral lymphadenopathy have markedly improved and nearly resolved. There is a residual lymph node on image 131, SUV max 2.8, previously 20.2 measuring 2.3 x 1.2 cm in size, previously 3.9 x 2.7 cm. There is no other hypermetabolic lymphadenopathy. ABDOMEN AND PELVIS: There is a physiologic distribution of activity within the liver, spleen, adrenal glands, urinary tract and bowel, with no hypermetabolic foci. MUSCULOSKELETAL SYSTEM: There is mild to moderate diffuse increased activity in the bone marrow consistent with reactive hyperplasia which may be related to anemia, prior chemotherapy and/or administration of bone marrow stimulating drugs. This appears slightly asymmetric in the left sacrum on image 265, SUV max 4.2. ADDITIONAL CT FINDINGS: There is a nonhypermetabolic 1 cm left thyroid nodule which is likely stable. No follow-up is required per ACR guidelines. There is a right chest central venous access port with tip in the SVC. There is low attenuation of blood in the cardiac chambers consistent with anemia. There is mild to moderate atelectasis and/or scarring at the bilateral lung bases. There are a few bilateral renal cysts, right greater than left measuring up to 4.1 cm. There is diffuse atherosclerotic calcification of the aorta, iliac and femoral arteries. There is a large amount of stool in the colon. There is a small fat-containing left inguinal hernia. PET/PET skull to mid thigh IMPRESSION: 1. The hypermetabolic right supraclavicular, axillary and subpectoral lymphadenopathy appears mostly resolved except for a residual lymph node which shows uptake slightly more intense than the mediastinum and similar to the liver activity. This is consistent with a Deauville score of 3 which usually indicates a complete metabolic response to therapy except in certain clinical trials where discontinuation of therapy is being considered. 2. 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 Activity is slightly asymmetric in the left sacrum however this is favored to be due to heterogeneous reactive bone marrow. Consider MRI and/or attention on follow-up PET/CT. 3. Additional CT findings as described above. Electronically authenticated by: NABEEL HADLEY Date: 09/15/2024 15:02 Dictated By: Nabeel Hadley M.D. Signed By: 09/15/24 1505 DD/ 1502 TD/TT: [employer] Monitoring Technician: [place] [address] PET Report Signed Patient: RUDDY TRAN MR#: [id number] : 1955 Acct:[id number] Age/Sex: 69 / M ADM Date: 09/08/24 Loc: PETCT Attending Dr: Liu Donnelly M.D. Ordering Physician: Sonia Donnelly M.D. Date of Service: 09/08/24 Procedure(s): PET sk ull to mid thigh Accession Number(s): [id number] cc: AILIN GREEN ; Sonia Donnelly M.D. [address] [id number] Patient Name: NABEEL TRAN MRN: [id number] date: 1955 Sex: M Assigned Patient Location: PETCT Current Patient Loca tion: PETCT Accession/Order Numb er: [id number] Exam Date: 09/08/2024 15:00 Report Date: 09/15/2024 15:02 At the request of: SONIA DONNELLY Procedure: PET skull to mid thigh PET/CT: HISTORY: Lymphoma, s tatus post chemotherapy. COMPARISON: PET/CT 05/12/2024. TECHNIQUE: The patie nt was injected with 13.62 mCi of F-18 fluorodeoxyglucose (FDG), and an emissi on scan was performed from the vertex of the skull to the mid thigh. Noncontra st CT was performed for attenuation correction and anatomic localization. The bl ood glucose level was 131 mg/dl. The uptake time was 52 minutes. FINDINGS: HEAD AND NECK: The previously seen hypermetabolic right supraclavicular lymphadenopathy has resolved. CHEST: The SUVmax of the mediastinum = 2.1 using the patient's body weight as the normalization me thod. Hypermetabolic right axillary and subpectoral lymphadenopathy have markedly improved and nearly resolved. There is a residual lymph node on image 131, SUV max 2.8, previously 20.2 measuring 2.3 x 1.2 cm in size, previously 3.9 x 2.7 cm. There is no other hypermetabolic lymphadenopathy. ABDOMEN AND PELVIS: There is a physiologic distribution of activity within the liver, spleen, adren al glands, urinary tract and bowel, with no hypermetabolic foci. MUSCULOSKELETAL SYST EM: There is mild to moderate diffuse increased activity in the bone marrow consistent with reactive hyperplasia which may be related to anemia, prior chemotherapy and/or administration of bone marrow stimulating drugs. This appears slightly asymmetric in the left sacrum on image 265, SUV max 4.2. ADDITIONAL CT FINDIN GS: There is a nonhypermetabolic 1 cm left thyroid nodule which is likely stab le. No follow-up is required per ACR guidelines. There is a right chest central venous access port with tip in the SVC. There is low attenuation of blood in the cardiac chambers consistent with anemia. There is mild to moderate atelectasis and/or scarring at the bilateral lung bases. There are a few bilateral renal cysts, right greater than left measuring up to 4.1 cm. There is diffuse atherosclerotic calcification of the aorta, iliac and femoral arteries. Th ere is a large amount of stool in the colon. There is a small fat-containing left inguinal hernia. PET/PET skull to mid thigh IMPRESSION: 1. The hypermetaboli c right supraclavicular, axillary and subpectoral lymphadenopathy appe ars mostly resolved except for a residual lymph node which shows uptake slightl y more intense than the mediastinum and similar to the liver activity. This is consistent with a Deauville score of 3 which usually indicates a complete metabolic response to therapy except in certain clinical trials where discontinuation of therapy is being considered. 2. Findings consiste nt with reactive bone marrow hyperplasia. Activity is slightly asymmetric in the left sacrum however this is favored to be due to heterogeneous reacti ve bone marrow. Consider MRI and/or attention on follow-up PET/CT. 3. Additional CT fin dings as described above. Electronically authenticated by: NABEEL HADLEY Date: 09/15/2024 15:02 Dictated By: Jhonatan Hadley M.D. Signed By: 09/15/24 1505 DD/ 150 TD/TT: [employer] Monitoring Technician: Manual Differential (Not yet reviewed by provider) Interpretation: Performing Lab: Notes/Report: [facility] , Segmented Neutrophils % Manual 62.0 43.0-75.0 Band Neutrophils % 5.0 0-5 % Lymphocytes Percent Manual 13.0 20.5-60.0 % Monocytes Percent Manual 12.0 1.7-12.0 % Eosinophils Percent Manual 5.0 0.9-7.0 % Basophils Percent Manual 3.0 0.2-2.0 % Segmented Neut Absolute Manual 11.22 1.4-6.5 10 3/uL Band Neutrophils Absolute 0.9 0.0-0.3 10 3/uL Lymphocytes Absolute Manual 2.35 1.20-3.80 10 3/uL Monocytes Absolute Manual 2.17 0.30-0 .80 10 3/uL Eosinophils Absolute Manual 0.90 0.00-0.70 10 3/uL Basophils Abs Manual 0.54 0.00-0.10 1 0 3/uL Poikilocytosis 1+ Anisocytosis 1+ Tear Drop Cells 1+ Performing Lab: see note ML - [facility] LB CA echo doppler complete Reviewed date:08/27/2024 12:32:14 PM Interpretation: Performing Lab: Notes/Report: Source Facility: [facility]-[address] [place] [address] [place] [address] Cardiology Report Signed Patient: NABEEL TRAN MR#: [id number] : 1955 Acct:[id number] Age/Sex: 69 / M ADM Date: 08/25/24 Loc: CARD Attending Dr: FABIOLA BENDER Ordering Physician: FABIOLA BENDER Date of Service: 08/25/24 Procedure(s): CA echo doppler complete Accession Number(s): [id number] cc: FABIOLA BENDER; PETERAILIN Patient Name: NABEEL TRAN MR#: [id number] : 1955 Exam Date: 08/25/2024 Ordering Doctor: FABIOLA BENDER M.D. ECHOCARDIOGRAM REPORT PROCEDURE: CA ECHO DOPPLER COMPLETE INDICATIONS: Dyspnea on exertion, Hodgkins lymphoma - chemotherapy, diabetes COMPARISON: None. DESCRIPTION: COMPLETE ECHOCARDIOGRAM Real-time transthoracic echocardiography with 2D, M-mode, spectral and color flow Doppler performed. QUALITY: Technical quality was good. LEFT VENTRICLE: Normal chamber size. Moderate concentric hypertrophy. Normal systolic function. LV EF: Normal left ventricular ejection fraction, (>55%). DIASTOLIC: Diastolic function is indeterminate. ATRIAL SEPTUM: LEFT ATRIUM: Moderate dilatation. RIGHT ATRIUM: Moderate dilatation. RIGHT VENTRICLE: Normal chamber size. Normal right ventricular systolic function. TRICUSPID VALVE: Normal mobility and thickness. No stenosis with trivial regurgitation. No evidence of pulmonary hypertension. RVSP 30 mmHg MITRAL VALVE: Mildly thickened with normal mobility. No evidence of mitral valve stenosis. There is no mitral annular calcification. Mild to moderate eccentric mitral regurgitation. AORTIC VALVE: Normal trileaflet appearance. Mildly calcified right and noncoronary cusps of the aortic valve. Mildly diminished mobility. Doppler velocity suggest mild aortic valve stenosis. DVI 0.4, REBEKAH 1.6 cm2. Mild aortic regurgitation. AORTIC ROOT: Normal diameter and appearance. PULMONIC VALVE: Normal thickness and mobility. No stenosis. No regurgitation. PERICARDIUM: No evidence of pericardial effusion. IVC: Not well visualized. PLEURA: CONCLUSION: 1. Mild concentric left ventricular hypertrophy with normal systolic function. LVEF is estimated at 60%. 2. Normal right ventricular size and systolic function. 3. Moderate biatrial dilatation. 4. Calcified aortic valve with mild stenosis and regurgitation. 5. Mild to moderate eccentric mitral regurgitation. 6. Normal right-sided pressures. Adult Echocardiography Procedure Report Left Ventricle LVEDD (3.7 - 5.6 cm): 4.62 cm LVESD (2.2 - 4.0 cm): 3.35 cm LVIVS thickness (0.6 - 1.2 cm): 1.81 cm LVPW thickness (0.5 - 1.0 cm): 1.25 cm e': 0.12 m/s E - e': 7.68 LVOT Max Gradient: 2.59 mm[Hg] LVOT Area (cm2): 0.80 m/s Peak Velocity (LVOT): 0.80 m/s Mean Velocity (LVOT): 0.54 m/s LVOT Diameter 2.24 cm Left Atrium LA Volume Index (2D A2C): 55.79 ml/m2 Left Atrium Systolic Dimension: 3.60 cm Mitral Valve MV E to A Ratio: 1.31 Mitral Valve A-Wave Peak Velocity: 0.69 m/s Mitral Valve E-Wave Peak Velocity: 0.91 m/s Right Ventricle Aorta AO Root Diam: 3.73 cm Aortic Valve AoV Area (Peak Walt): 1.55 cm2, 1.60 cm2 AoV Area (VTI): 1.63 cm2, 1.79 cm2 Deceleration Red Willow: 2.62 m/s2 Pressure Half-Time: 478.16 ms Peak Velocity(Antegrade Flow): 1.99 m/s, 2.04 m/s Peak Gradient(Antegrade Flow): 15.79 mm[Hg], 16.66 mm[Hg] Mean Velocity(Antegrade Flow): 1.33 m/s, 1.35 m/s Mean Gradient(Antegrade Flow): 8.25 mm[Hg], 8.49 mm[Hg] Velocity Time Integral: 40.33 cm, 44.26 cm Tricuspid Valve Peak Velocity (Regurgitant Flow): 2.59 m/s, 2.40 m/s Pulmonic Valve Mean Gradient: 1.71 mm[Hg] Mean Velocity: 0.60 m/s Peak Velocity: 0.96 m/s, 0.93 m/s Peak Gradient: 3.43 mm[Hg], 3.67 mm[Hg] Right Atrium Right Atrium Systolic Pressure: 48.61 ml, 48.61 ml Dictated by: Jerod Manuel M.D. on 08/26/2024 at 19:01 Approved by: Jerod Manuel M.D. on 08/26/2024 at 19:06 Dictated By: JEROD MANUEL Signed By: 08/26/241906 DD/ 05 TD/TT: Groundwater Monitoring Technician: [place] [address] Cardiology Report Signed Patient: RUDDY TRAN MR#: [id number] : 1955 Acct:[id number] Age/Sex: 69 / M ADM Date: 08/25/24 Loc: CARD Attending Dr: DESI BENDER Ordering Physician: FABIOLA BENDER Date of Service: 08/25/24 Procedure(s): CA ech o doppler complete Accession Number(s): [id number] cc: REAL BENDER; AILIN GREEN Patient Name: NABEEL TRAN MR#: [id number] : 1955 Exam Date: 08/25/2024 Ordering Doctor: CLIFTON BENDER M.D. ECHOCARDIOGRAM REPORT PROCEDURE: CA ECHO DOPPLER COMPLETE INDICATIONS: Dyspnea on exertion, Hodgkins lymphoma - chemotherapy, diabetes COMPARISON: None. DESCRIPTION: COMPLET E ECHOCARDIOGRAM Real-time transthoracic echocardiography wit h 2D, M-mode, spectral and color flow Doppler performed. QUALITY: Technical quality was good. LEFT VENTRICLE: Norm al chamber size. Moderate concentric hypertrophy. Normal systolic function. LV EF: Normal left ventricular ejection fraction, (>55%). DIASTOLIC: Diastolic function is indeterminate. ATRIAL SEPTUM: LEFT ATRIUM: Moderat e dilatation. RIGHT ATRIUM: Modera te dilatation. RIGHT VENTRICLE: Nor mal chamber size. Normal right ventricular systolic function. TRICUSPID VALVE: Nor mal mobility and thickness. No stenosis with trivial regurgitation. No evidence of pulmonary hypertension. RVSP 30 mmHg MITRAL VALVE: Mildly thickened with normal mobility. No evidence of mitral valve stenosi s. There is no mitral annular calcification. Mild to moderate eccentric m itral regurgitation. AORTIC VALVE: Normal trileaflet appearance. Mildly calcified right and noncoronary cusps of the aortic valve. Mildly diminished mobility. Doppler velocity suggest mil d aortic valve stenosis. DVI 0.4, REBEKAH 1.6 cm2. Mild aortic regurgitation. AORTIC ROOT: Normal diameter and appearance. PULMONIC VALVE: Norm al thickness and mobility. No stenosis. No regurgitation. PERICARDIUM: No evid ence of pericardial effusion. IVC: Not well visualized. PLEURA: CONCLUSION: 1. Mild concentric l eft ventricular hypertrophy with normal systolic function. LVEF is estimated at 60%. 2. Normal right ventricular size and systolic function. 3. Moderate biatrial dilatation. 4. Calcified aortic valve with mild stenosis and regurgitation. 5. Mild to moderate eccentric mitral regurgitation. 6. Normal right-side d pressures. Adult Echocardiograp hy Procedure Report Left Ventricle LVEDD (3.7 - 5.6 cm) : 4.62 cm LVESD (2.2 - 4.0 cm) : 3.35 cm LVIVS thickness (0.6 - 1.2 cm): 1.81 cm LVPW thickness (0.5 - 1.0 cm): 1.25 cm e': 0.12 m/s E - e': 7.68 LVOT Max Gradient: 2 .59 mm[Hg] LVOT Area (cm2): 0.80 m/s Peak Velocity (LVOT) : 0.80 m/s Mean Velocity (LVOT) : 0.54 m/s LVOT Diameter 2.24 cm Left Atrium LA Volume Index (2D A2C): 55.79 ml/m2 Left Atrium Systolic Dimension: 3.60 cm Mitral Valve MV E to A Ratio: 1.31 Mitral Valve A-Wave Peak Velocity: 0.69 m/s Mitral Valve E-Wave Peak Velocity: 0.91 m/s Right Ventricle Aorta AO Root Diam: 3.73 cm Aortic Valve AoV Area (Peak Walt): 1.55 cm2, 1.60 cm2 AoV Area (VTI): 1.63 cm2, 1.79 cm2 Deceleration Red Willow: 2.62 m/s2 Pressure Half-Time: 478.16 ms Peak Velocity(Antegr julien Flow): 1.99 m/s, 2.04 m/s Peak Gradient(Antegr julien Flow): 15.79 mm[Hg], 16.66 mm[Hg] Mean Velocity(Antegr julien Flow): 1.33 m/s, 1.35 m/s Mean Gradient(Antegr julien Flow): 8.25 mm[Hg], 8.49 mm[Hg] Velocity Time Integr al: 40.33 cm, 44.26 cm Tricuspid Valve Peak Velocity (Regurgitant Flow): 2.59 m/s, 2.40 m/s Pulmonic Valve Mean Gradient: 1.71 mm[Hg] Mean Velocity: 0.60 m/s Peak Velocity: 0.96 m/s, 0.93 m/s Peak Gradient: 3.43 mm[Hg], 3.67 mm[Hg] Right Atrium Right Atrium Systoli c Pressure: 48.61 ml, 48.61 ml Dictated by: Jerod Manuel M.D. on 08/26/2024 at 19:01 Approved by: Jerod Manuel M.D. on 08/26/2024 at 19:06 Dictated By: JEROD MANUEL Signed By: 08/26/241906 DD/ 05 TD/TT: Ground[employer] Monitoring Technician: PROF Lemos(COMP METB) (Not yet reviewed by provider) Interpretation: Performing Lab: Notes/Report: [facility] , Sodium 140 136-145 mmol/L Potassium 4.1 3.5-5.1 mmol/L Chloride 106 98-107 mmol/L Carbon Dioxide 32.1 21.0-32.0 mmol/L Anion Gap 6.0 Glucose 128 74-106 mg/dL Blood Urea Nitrogen 15.0 7.0-18.0 mg/dL Creatinine 0.86 0.70-1.30 mg/dL Estimated GFR ( Samantha >60 >=60 mL/min/1.73m 2 Estimated GFR (Non- Aury >60 >=60 mL/min/1.73m 2 BUN Creatinine Ratio 17.4 Calcium 9.1 8.5-10.1 mg/dL Bilirubin Total 0.3 0.2-1.0 mg/dL Aspartate Amino Transferase 21 15-37 U/L Alanine Aminotransferase 20 16-63 U/L Alkaline Phosphatase 119 46-116 U/L Total Protein 6.5 6.4-8.2 g/dL Albumin Level 3.2 3.4-5.0 g/dL Globulin 3.3 Albumin Globulin Ratio 1.0 Performing Lab: see note ML - [facility] LB LDH (Not yet reviewed by pro vider) Interpretation: Performing Lab: Notes/Report: [facility] , Lactate Dehydrogenase 162 85-227 U/L Performing Lab: see note ML - [facility] LB CBC AUTO DIFF (Not yet revie wed by provider) Interpretation: Performing Lab: Notes/Report: [facility] , White Blood Count 13.5 4.0-11.0 10 3/uL Red Blood Count 4.63 4.70-6.10 10 6/uL Hemoglobin 13.1 14.0-18.0 g/dL Hematocrit 41.0 42.0-54.0 % Mean Corpuscular Volume 88.6 80.0-94.0 fL Mean Corpuscular Hemoglobin 28.3 25.9-34.0 pg Mean Corpuscular HGB Conc 32.0 29.9-35.2 g/dL Red Cell Distribution Width 21.1 11.0-15.0 % Platelet Count 337 150-450 10 3/uL Mean Platelet Volume 10.0 9.5-13.5 fL Performing Lab: see note ML - [facility] LB FERRITIN Reviewed date:08/18/2024 08:27:53 AM Interpretation: Performing Lab: Notes/Report: [facility] , Ferritin 1227.0 26.0-388.0 ng/mL Performing Lab: see note - [facility] LB Vitamin B12 Reviewed date:08/13/2024 09:05:33 AM Interpretation: Performing Lab: Notes/Report: [facility] , Vitamin B12 4539 126-6486 pg/mL Performed at: [facility] [address] [id number] Testboard Operator: Neville Long PhD, Phone: [phone] Performing Lab: see note - [facility] LB Manual Differential Reviewed date:08/18/2024 08:27:53 AM Interpretation: Performing Lab: Notes/Report: [facility] , Segmented Neutrophils % Manual 60.0 43.0-75.0 Band Neutrophils % 2.0 0-5 % Lymphocytes Percent Manual 18.0 20.5-60.0 % Monocytes Percent Manual 10.0 1.7-12.0 % Eosinophils Percent Manual 2.0 0.9-7.0 % Basophils Percent Manual 4.0 0.2-2.0 % Metamyelocytes % 1.0 Myelocytes % Manual 3.0 Segmented Neut Absolute Manual 10.14 1.4-6.5 10 3/uL Band Neutrophils Absolute 0.3 0.0-0.3 10 3/uL Lymphocytes Absolute Manual 3.04 1.20-3.80 10 3/uL Monocytes Absolute Manual 1.69 0.30-0 .80 10 3/uL Eosinophils Absolute Manual 0.33 0.00-0.70 10 3/uL Basophils Abs Manual 0.67 0.00-0.10 1 0 3/uL Metamyelocytes Absolute Manual 0.16 Myelocytes Absolute Manual 0.50 Nucleated Red Blood Cells 1 Anisocytosis 1+ Performing Lab: see note ML - [facility] LB CBC AUTO DIFF Reviewed date:08/18/2024 08:27:53 AM Interpretation: Performing Lab: Notes/Report: [facility] , White Blood Count 16.9 4.0-11.0 10 3/uL Red Blood Count 4.76 4.70-6.10 10 6/uL Hemoglobin 13.0 14.0-18.0 g/dL Hematocrit 41.9 42.0-54.0 % Mean Corpuscular Volume 88.0 80.0-94.0 fL Mean Corpuscular Hemoglobin 27.3 25.9-34.0 pg Mean Corpuscular HGB Conc 31.0 29.9-35.2 g/dL Red Cell Distribution Width 22.3 11.0-15.0 % Platelet Count 354 150-450 10 3/uL Mean Platelet Volume 10.0 9.5-13.5 fL Performing Lab: see note ML - [facility] LB PROF 14(COMP METB) Reviewed date:08/18/2024 08:27:53 AM Interpretation: Performing Lab: Notes/Report: [facility] , Sodium 143 136-145 mmol/L Potassium 4.1 3.5-5.1 mmol/L Chloride 107 98-107 mmol/L Carbon Dioxide 28.2 21.0-32.0 mmol/L Anion Gap 11.9 Glucose 139 74-106 mg/dL Blood Urea Nitrogen 15.0 7.0-18.0 mg/dL Creatinine 0.96 0.70-1.30 mg/dL Estimated GFR ( Samantha >60 >=60 mL/min/1.73m 2 Estimated GFR (Non- Aury >60 >=60 mL/min/1.73m 2 BUN Creatinine Ratio 15.6 Calcium 8.9 8.5-10.1 mg/dL Bilirubin Total 0.6 0.2-1.0 mg/dL Aspartate Amino Transferase 11 15-37 U/L Alanine Aminotransferase 21 16-63 U/L Alkaline Phosphatase 108 46-116 U/L Total Protein 6.1 6.4-8.2 g/dL Albumin Level 2.8 3.4-5.0 g/dL Globulin 3.3 Albumin Globulin Ratio 0.8 Performing Lab: see note ML - The [facility] Reviewed date:08/18/2024 08:27:53 AM Interpretation: Performing Lab: Notes/Report: [facility] , Lactate Dehydrogenase 126 85-227 U/L Performing Lab: see note ML - [facility] CA 30 day event monitor Reviewed date:07/11/2024 10:40:15 AM Interpretation: Performing Lab: Notes/Report: Source Facility: [address] [place] [address] Cardiology Report Signed Patient: NABEEL TRAN MR#: [id number] : 1955 Acct:[id number] Age/Sex: 68 / M ADM Date: 06/04/24 Loc: ICU [address]: Florina Melissa D.O. Ordering Physician: Florina Melissa D.O. Date of Service: 06/05/24 Procedure(s): CA 30 day event monitor Accession Number(s): [id number] cc: AILIN GREEN ; Florina Melissa D.O. 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: : 1955 Requested By: 1838 Order Number: [id number] Reading MD: NITO SUNSHINE Interpretive Statements Predominant rhythm is sinus with average rate of 97 bpm Tachycardia: (30% total burden) - max rate of 209 bpm Bradycardia - min rate of 47 bpm Ventricular ectopy - 81,989 total, 2% total burden NSVT - 2 episode of 4 beat VT Supraventricular ectopy - 860,628 total, 23% total burden Atrial Fibrillation - 1% total burden w/ duration of 7h 57min Impression: Predominant rhythm is sinus w/ average rate of 97 bpm (tachycardia 30% burden) 2 episode of 4 beat VT Atrial fibrillation: 1% total burden Fastest rate 209 bpm (AFib) and slowest rate 47 bpm 81,989 VE, 2% total burden 860,628 SVE, 23% total burden No blocks or pauses Electronically Signed On 07-10-2024 20:44:15 EST by NITO SUNSHINE Dictated By: Nito Sunshine D.O. Signed By: 07/10/24204307/10/242043 DD/ TD/TT: Groundwater Monitoring Technician: [place] [address] Cardiology Report Signed Patient: RUDDY TRAN MR#: [id number] : 1955 Acct:[id number] Age/Sex: 68 / M ADM Date: 06/04/24 Loc: ICU [address]: Esau Melissa D.O. Ordering Physician: Florina Melissa D.O. Date of Service: 06/05/24 Procedure(s): CA 30 day event monitor Accession Number(s): [id number] cc: AILIN GREEN ; Florina Melissa D.O. 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: : 1955 Requ ested By: 1838 Order Number: [id number] Reading MD: NITO SUNSHINE Interpretive Statements Predominant rhythm i s sinus with average rate of 97 bpm Tachycardia: (30% to jojo burden) - max rate of 209 bpm Bradycardia - min rate of 47 bpm Ventricular ectopy - 81,989 total, 2% t otal burden NSVT - 2 episode of 4 beat VT Supraventricular ectopy - 860,628 total, 23% total burden Atrial Fibrillation - 1% total burden w/ duration of 7h 57min Impression: Predominant rhythm i s sinus w/ average rate of 97 bpm (tachycardia 30% burden) 2 episode of 4 beat VT Atrial fibrillation: 1% total burden Fastest rate 209 bpm (AFib) and slowest rate 47 bpm 81,989 VE, 2% total burden 860,628 SVE, 23% tot al burden No blocks or pauses Electronically Marsha d On 07-10-2024 20:44:15 EST by NITO SUNSHINE Dictated By: Nito Sunshine D.O. Signed By: 07/10/24204307/10/242043 DD/ 0755 TD/TT: Groundwater Monitoring Technician: CBC AUTO DIFF Reviewed date:08/18/2024 08:27:53 AM Interpretation: Performing Lab: Notes/Report: [facility] , White Blood Count 18.7 4.0-11.0 10 3/uL Red Blood Count 4.72 4.70-6.10 10 6/uL Hemoglobin 11.6 14.0-18.0 g/dL Hematocrit 37.9 42.0-54.0 % Mean Corpuscular Volume 80.3 80.0-94.0 fL Mean Corpuscular Hemoglobin 24.6 25.9-34.0 pg Mean Corpuscular HGB Conc 30.6 29.9-35.2 g/dL Red Cell Distribution Width 20.8 11.0-15.0 % Platelet Count 345 150-450 10 3/uL Mean Platelet Volume 9.3 9.5-13.5 fL Performing Lab: see note - [facility] Manual Differential Reviewed date:08/18/2024 08:27:53 AM Interpretation: Performing Lab: Notes/Report: [facility] , Segmented Neutrophils % Manual 71.0 43.0-75.0 Band Neutrophils % 12.0 0-5 % Lymphocytes Percent Manual 10.0 20.5-60.0 % Monocytes Percent Manual 6.0 1.7-12.0 % Eosinophils Percent Manual 0.0 0.9-7.0 % Basophils Percent Manual 0.0 0.2-2.0 % Segmented Neut Absolute Manual 20.66 1.4-6.5 10 3/uL Band Neutrophils Absolute 3.5 0.0-0.3 10 3/uL Lymphocytes Absolute Manual 2.91 1.20-3.80 10 3/uL Monocytes Absolute Manual 1.74 0.30-0 .80 10 3/uL Eosinophils Absolute Manual 0.00 0.00-0.70 10 3/uL Basophils Abs Manual 0.00 0.00-0.10 1 0 3/uL Performing Lab: see note - [facility] Manual Differential Reviewed date:08/18/2024 08:27:53 AM Interpretation: Performing Lab: Notes/Report: [facility] , Segmented Neutrophils % Manual 46.0 43.0-75.0 Lymphocytes Percent Manual 46.0 20.5-60.0 % Monocytes Percent Manual 2.0 1.7-12.0 % Eosinophils Percent Manual 2.0 0.9-7.0 % Basophils Percent Manual 4.0 0.2-2.0 % Segmented Neut Absolute Manual 0.69 1.4-6.5 10 3/uL Lymphocytes Absolute Manual 0.69 1.20-3.80 10 3/uL Monocytes Absolute Manual 0.03 0.30-0 .80 10 3/uL Eosinophils Absolute Manual 0.03 0.00-0.70 10 3/uL Basophils Abs Manual 0.06 0.00-0.10 1 0 3/uL Microcytosis 1+ Performing Lab: see note ML - [facility] ECG 12 lead Reviewed date:06/15/2024 05:37:58 PM Interpretation: Performing Lab: Notes/Report: Source Facility: [address] [place] [address] Electrocardiograph Report Signed Patient: NABEEL TRAN MR#: [id number] : 1955 Acct:[id number] Age/Sex: 68 / M ADM Date: 06/13/24 Loc: ICU 271-[address]: Jah Damian M.D. 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 Signed By: 06/14/24629 DD/ 34 TD/TT: Groundwater Monitoring Technician: [place] [address] Electrocardiograph Report Signed Patient: RUDDY TRAN MR#: [id number] : 1955 Acct:[id number] Age/Sex: 68 / M ADM Date: 06/13/24 Loc: ICU 271-[address]: Chioma Damian M.D. 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 Signed By: 06/14/24629 DD/ 34 TD/TT: Groundwater Monitoring Technician: NORA quach 1V Reviewed date:06/15/2024 05:37:58 PM Interpretation: Performing Lab: Notes/Report: Source Facility: [address] [place] [address] XRay Report Signed Patient: NABEEL TRAN MR#: [id number] : 1955 Acct:[id number] Age/Sex: 68 / M ADM Date: 06/13/24 Loc: ER Attending Dr: Ordering Physician: Evelyn Dumont Date of Service: 06/13/24 Procedure(s): XR chest 1V Accession Number(s): [id number] cc: AILIN Hernandez [address] [address] Patient Name: NABEEL TRAN MRN: [id number] date: 1955 Sex: M Assigned Patient Location: ER Current Patient Location: ER Accession/Order Number: [id number] Exam Date: 06/13/2024 16:38 Report Date: 06/13/2024 17:49 At the request of: EVELYN DUMONT Procedure: XR chest 1V EXAM: XR chest 1V HISTORY: AFIB COMPARISON: 06/04/2024 TECHNIQUE: Chest X-ray AP, 1 view FINDINGS: Support devices: Right internal jugular approach Mediport catheter is unchanged in position. Lungs/pleura: Persistent elevated left hemidiaphragm due to gaseous distention of splenic flexure. No consolidation, effusion, or pneumothorax. Heart and mediastinum: Normal contours. Bones: No acute abnormality identified. XR/XR chest 1V Impression: No radiographic evidence of acute cardiopulmonary process. Electronically authenticated by: NANCY YI Date: 06/13/2024 17:49 Dictated By: Nancy Yi M.D. Signed By: 06/13/24 175 DD/ 174 TD/TT: Groundwater Monitoring Technician: [place] [address] XRay Report Signed Patient: RUDDY TRAN MR#: [id number] : 1955 Acct:[id number] Age/Sex: 68 / M ADM Date: 06/13/24 Loc: ER Attending Dr: Ordering Physician: Evelyn Dumont Date of Service: 06/13/24 Procedure(s): XR chest 1V Accession Number(s): [id number] cc: Evelyn GREENAILIN [address] [id number] Patient Name: NABEEL TRAN MRN: [id number] date: 1955 Sex: M Assigned Patient Location: ER Current Patient Loca tion: ER Accession/Order Numb er: [id number] Exam Date: 16:38 Report Date: 06/13/2024 17:49 At the request of: EVELYN DUMONT Procedure: XR chest 1V EXAM: XR chest 1V HISTORY: AFIB COMPARISON: 06/04/2024 TECHNIQUE: Chest X-r ay AP, 1 view FINDINGS: Support devices: Rig ht internal jugular approach Mediport catheter is unchanged in position. Lungs/pleura: Persis tent elevated left hemidiaphragm due to gaseous distention of splenic flexure. No consolidation, effusion, or pneumothorax. Heart and mediastinu m: Normal contours. Bones: No acute abnormality identified. X R/XR chest 1V Impression: No radiographic evid ence of acute cardiopulmonary process. Electronically authenticated by: NANCY YI Date: 06/13/2024 17:49 Dictated By: Nancy Yi M.D. Signed By: 06/13/241750 DD/ 48 TD/TT: Groundwater Monitoring Technician: MAGNESIUM Reviewed date:06/15/2024 05:37:58 PM Interpretation: Performing Lab: Notes/Report: [facility] , Magnesium 2.2 1.8-2.4 mg/dL Performing Lab: see note ML - [facility] CBC AUTO DIFF Reviewed date:06/15/2024 05:37:58 PM Interpretation: Performing Lab: Notes/Report: [facility] , White Blood Count 11.7 4.0-11.0 10 3/uL Red Blood Count 4.99 4.70-6.10 10 6/uL Hemoglobin 11.7 14.0-18.0 g/dL Hematocrit 38.9 42.0-54.0 % Mean Corpuscular Volume 78.0 80.0-94.0 fL Mean Corpuscular Hemoglobin 23.4 25.9-34.0 pg Mean Corpuscular HGB Conc 30.1 29.9-35.2 g/dL Red Cell Distribution Width 17.1 11.0-15.0 % Platelet Count 470 150-450 10 3/uL Mean Platelet Volume 9.5 9.5-13.5 fL Neutrophils Percent Auto 88.1 43.0-75.0 % Lymphocytes Percent Auto 8.5 20.5-60.0 % Monocytes Percent Auto 2.6 1.7-12.0 % Eosinophils Percent Auto 0.3 0.9-7.0 % Basophils Percent Auto 0.1 0.2-2.0 % Immature Granulocytes Pct Auto 0.4 0.0-0.5 % Neutrophils Absolute Auto 10.3 1.4-6.5 10 3/uL Lymphocytes Absolute Auto 1.0 1.2-3.8 10 3/uL Monocytes Absolute Auto 0.3 0.3-0.8 10 3/uL Eosinophils Absolute Auto 0.0 0.0-0.7 10 3/uL Basophils Absolute Auto 0.0 0.0-0.1 10 3/uL Immature Granulocytes Abs Auto 0.05 0.00-0.03 10 3/uL Performing Lab: see note ML - [facility] PROF 14(COMP METB) Reviewed date:06/15/2024 05:37:58 PM Interpretation: Performing Lab: Notes/Report: [facility] , Sodium 135 136-145 mmol/L Potassium 3.8 3.5-5.1 mmol/L Chloride 97 98-107 mmol/L Carbon Dioxide 30.2 21.0-32.0 mmol/L Anion Gap 11.6 Glucose 149 74-106 mg/dL Blood Urea Nitrogen 11.0 7.0-18.0 mg/dL Creatinine 0.82 0.70-1.30 mg/dL Estimated GFR ( Samantha >60 >=60 mL/min/1.73m 2 Estimated GFR (Non- Aury >60 >=60 mL/min/1.73m 2 BUN Creatinine Ratio 13.4 Calcium 9.3 8.5-10.1 mg/dL Bilirubin Total 0.8 0.2-1.0 mg/dL Aspartate Amino Transferase 71 15-37 U/L Alanine Aminotransferase 44 16-63 U/L Alkaline Phosphatase 435 46-116 U/L Total Protein 7.3 6.4-8.2 g/dL Albumin Level 1.2 3.4-5.0 g/dL Globulin 6.1 Albumin Globulin Ratio 0.2 Performing Lab: see note ML - [facility] Reviewed date:06/15/2024 05:37:58 PM Interpretation: Performing Lab: Notes/Report: [facility] , Lactate Dehydrogenase 180 85-227 U/L Performing Lab: see note - [facility] CBC AUTO DIFF Reviewed date:06/15/2024 05:37:58 PM Interpretation: Performing Lab: Notes/Report: [facility] , White Blood Count 10.8 4.0-11.0 10 3/uL Red Blood Count 4.75 4.70-6.10 10 6/uL Hemoglobin 11.4 14.0-18.0 g/dL Hematocrit 36.8 42.0-54.0 % Mean Corpuscular Volume 77.5 80.0-94.0 fL Mean Corpuscular Hemoglobin 24.0 25.9-34.0 pg Mean Corpuscular HGB Conc 31.0 29.9-35.2 g/dL Red Cell Distribution Width 16.9 11.0-15.0 % Platelet Count 483 150-450 10 3/uL Mean Platelet Volume 9.2 9.5-13.5 fL Neutrophils Percent Auto 75.3 43.0-75.0 % Lymphocytes Percent Auto 11.9 20.5-60.0 % Monocytes Percent Auto 11.3 1.7-12.0 % Eosinophils Percent Auto 0.6 0.9-7.0 % Basophils Percent Auto 0.3 0.2-2.0 % Immature Granulocytes Pct Auto 0.6 0.0-0.5 % Neutrophils Absolute Auto 8.1 1.4-6.5 10 3/uL Lymphocytes Absolute Auto 1.3 1.2-3.8 10 3/uL Monocytes Absolute Auto 1.2 0.3-0.8 10 3/uL Eosinophils Absolute Auto 0.1 0.0-0.7 10 3/uL Basophils Absolute Auto 0.0 0.0-0.1 10 3/uL Immature Granulocytes Abs Auto 0.06 0.00-0.03 10 3/uL Performing Lab: see note ML - [facility] PROF 14(COMP METB) Reviewed date:06/05/2024 08:09:30 AM Interpretation: Performing Lab: Notes/Report: [facility] , Sodium 137 136-145 mmol/L Potassium 3.5 3.5-5.1 mmol/L Chloride 99 98-107 mmol/L Carbon Dioxide 30.6 21.0-32.0 mmol/L Anion Gap 10.9 Glucose 152 74-106 mg/dL Blood Urea Nitrogen 11.0 7.0-18.0 mg/dL Creatinine 0.72 0.70-1.30 mg/dL Estimated GFR ( Samantha >60 >=60 mL/min/1.73m 2 Estimated GFR (Non- Aury >60 >=60 mL/min/1.73m 2 BUN Creatinine Ratio 15.3 Calcium 9.0 8.5-10.1 mg/dL Bilirubin Total 0.6 0.2-1.0 mg/dL Aspartate Amino Transferase 47 15-37 U/L Alanine Aminotransferase 34 16-63 U/L Alkaline Phosphatase 324 46-116 U/L Total Protein 6.6 6.4-8.2 g/dL Albumin Level 1.2 3.4-5.0 g/dL Globulin 5.4 Albumin Globulin Ratio 0.2 Performing Lab: see note ML - [facility] MAGNESIUM Reviewed date:06/05/2024 08:09:30 AM Interpretation: Performing Lab: Notes/Report: [facility] , Magnesium 1.8 1.8-2.4 mg/dL Performing Lab: see note ML - [facility] CBC AUTO DIFF Reviewed date:06/05/2024 08:09:30 AM Interpretation: Performing Lab: Notes/Report: [facility] , White Blood Count 9.1 4.0-11.0 10 3/uL Red Blood Count 4.13 4.70-6.10 10 6/uL Hemoglobin 9.7 14.0-18.0 g/dL Hematocrit 31.9 42.0-54.0 % Mean Corpuscular Volume 77.2 80.0-94.0 fL Mean Corpuscular Hemoglobin 23.5 25.9-34.0 pg Mean Corpuscular HGB Conc 30.4 29.9-35.2 g/dL Red Cell Distribution Width 16.5 11.0-15.0 % Platelet Count 373 150-450 10 3/uL Mean Platelet Volume 8.9 9.5-13.5 fL Neutrophils Percent Auto 76.8 43.0-75.0 % Lymphocytes Percent Auto 10.4 20.5-60.0 % Monocytes Percent Auto 11.7 1.7-12.0 % Eosinophils Percent Auto 0.2 0.9-7.0 % Basophils Percent Auto 0.3 0.2-2.0 % Immature Granulocytes Pct Auto 0.6 0.0-0.5 % Neutrophils Absolute Auto 7.0 1.4-6.5 10 3/uL Lymphocytes Absolute Auto 0.9 1.2-3.8 10 3/uL Monocytes Absolute Auto 1.1 0.3-0.8 10 3/uL Eosinophils Absolute Auto 0.0 0.0-0.7 10 3/uL Basophils Absolute Auto 0.0 0.0-0.1 10 3/uL Immature Granulocytes Abs Auto 0.05 0.00-0.03 10 3/uL Performing Lab: see note ML - [facility] ECG 12 lead Reviewed date:06/05/2024 08:09:31 AM Interpretation: Performing Lab: Notes/Report: Source Facility: [place] [address] Electrocardiograph Report Signed Patient: NABEEL TRAN MR#: [id number] : 1955 Acct:[id number] Age/Sex: 68 / M ADM Date: 06/04/24 Loc: ICU 271-[address]: Florina Melissa D.O. Ordering Physician: Johnathan Triplett M.D. 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 Signed By: 06/04/242324 DD/ 1111 TD/TT: Groundwater Monitoring Technician: [place] [address] Electrocardiograph Report Signed Patient: RUDDY TRAN MR#: [id number] : 1955 Acct:[id number] Age/Sex: 68 / M ADM Date: 06/04/24 Loc: ICU 271-[address]: Esau Melissa D.O. Ordering Physician: Johnathan Triplett M.D. 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 Signed By: 06/04/242324 DD/ 1111 TD/TT: Groundwater Monitoring Technician: Troponin I High Sensitivity Reviewed date:06/04/2024 01:55:35 PM Interpretation: Performing Lab: Notes/Report: [facility] , Troponin I High Sensitivity 10.3 4.0-76.1 pg/mL CUT-OFF POINTS HAVE BEEN ESTABLISHED BASED ON THE FOURTH UNIVERSAL DEFINITION OF MYOCARDIAL INFARCTION. THE UPPER REFERENCE LIMIT (URL) OF TROPONIN, DEFINED THE 99TH PERCENTILE OF cTnI DISTRIBUTION IN A REFERENCE POPULATION, HAS BEEN CONFIRMED THE DECISION THRESHOLD FOR MO DIAGNOSIS. 99TH PERCENTILE = 76.2 PG/ML NOTE: HIGH-SENSITIVITY TROPONIN ASSAY IS NOT INTENDED TO BE USED IN ISOLATION BUT SHOULD BE INTERPRETED IN CONJUNCTION WITH OTHER DIAGNOSTIC AND CLINICAL INFORMATION. Performing Lab: see note ML - [facility] TSH Reviewed date:06/04/2024 01:58:05 PM Interpretation: Performing Lab: Notes/Report: [facility] , Thyroid Stimulating Hormone 0.348 0.358-3.740 uIU/mL Performing Lab: see note ML - [facility] LB CBC AUTO DIFF Reviewed date:06/04/2024 01:55:35 PM Interpretation: Performing Lab: Notes/Report: [facility] , White Blood Count 10.8 4.0-11.0 10 3/uL Red Blood Count 4.06 4.70-6.10 10 6/uL Hemoglobin 9.6 14.0-18.0 g/dL Hematocrit 31.4 42.0-54.0 % Mean Corpuscular Volume 77.3 80.0-94.0 fL Mean Corpuscular Hemoglobin 23.6 25.9-34.0 pg Mean Corpuscular HGB Conc 30.6 29.9-35.2 g/dL Red Cell Distribution Width 16.5 11.0-15.0 % Platelet Count 374 150-450 10 3/uL Mean Platelet Volume 8.6 9.5-13.5 fL Neutrophils Percent Auto 78.8 43.0-75.0 % Lymphocytes Percent Auto 9.6 20.5-60.0 % Monocytes Percent Auto 10.7 1.7-12.0 % Eosinophils Percent Auto 0.1 0.9-7.0 % Basophils Percent Auto 0.3 0.2-2.0 % Immature Granulocytes Pct Auto 0.5 0.0-0.5 % Neutrophils Absolute Auto 8.5 1.4-6.5 10 3/uL Lymphocytes Absolute Auto 1.0 1.2-3.8 10 3/uL Monocytes Absolute Auto 1.2 0.3-0.8 10 3/uL Eosinophils Absolute Auto 0.0 0.0-0.7 10 3/uL Basophils Absolute Auto 0.0 0.0-0.1 10 3/uL Immature Granulocytes Abs Auto 0.05 0.00-0.03 10 3/uL Performing Lab: see note ML - [facility] BNP Reviewed date:06/04/2024 01:58:05 PM Interpretation: Performing Lab: Notes/Report: [facility] , NT Pro B Type Natriuretic Pept 294.0 <=900.0 pg/mL Performing Lab: see note - [facility] Lupus Anticoagulant Reflex Reviewed date:06/04/2024 01:55:35 PM Interpretation: Performing Lab: Notes/Report: [facility] , PTT-LA 44.3 0.0-43.5 sec PTT-LA Mix 42.9 0.0-40.5 sec Hexagonal Phase Phospholipid 3 0-11 sec dRVVT 47.8 0.0-47.0 sec dRVVT Mix 42.6 0.0-40.4 sec dRVVT Confirm 1.0 0.8-1.2 ratio Lupus Reflex Interpretation Comment: . No lupus anticoagulant was detected. Mixing studies suggest the presence of an inhibitor. It should be noted that mixing studies performed on samples with minimally extended aPTT results can be equivocal. Normal plasma can overcome weak inhibitors, also resulting in a correction of the mixing study. The pattern observed could be caused by a specific factor inhibitor, dabigatran (a direct thrombin inhibitor anticoagulant), or a direct Xa inhibitor anticoagulant therapy such as rivaroxaban, apixaban or edoxaban. As antibody titers may fluctuate with time, repeat testing may be indicated and ideally should be performed in the absence of anticoagulant therapy. Performed at: [address] [id number] Testboard Operator: Ash Wilcox MD, Phone: [phone] Performing Lab: see note [facility] Hep B Core Ab, Tot Reviewed date:06/04/2024 01:55:35 PM Interpretation: Performing Lab: Notes/Report: [facility] , Hep B Core Ab, Tot Negative Negative Performed at: [address] [id number] Testboard Operator: Neville Long PhD, Phone: [phone] Performing Lab: see note [facility] Hepatitis B Surf Ab Quant Reviewed date:06/04/2024 01:55:35 PM Interpretation: Performing Lab: Notes/Report: [facility] , Hepatitis B Surf Ab Quant <3.5 Immuni ty>10 mIU/mL Status of Immunity Anti-HBs Level Inconsistent with Immunity 0.0 - 10.0 Consistent with Immunity >10.0 Performing Lab: see note LC - [facility] LB HBsAg Screen Reviewed date:06/04/2024 01:55:35 PM Interpretation: Performing Lab: Notes/Report: [facility] , HBsAg Screen Negative Negative Performing Lab: see note LC - [facility] LB CBC AUTO DIFF Reviewed date:06/04/2024 01:55:35 PM Interpretation: Performing Lab: Notes/Report: [facility] , White Blood Count 11.7 4.0-11.0 10 3/uL Red Blood Count 5.64 4.70-6.10 10 6/uL Hemoglobin 13.7 14.0-18.0 g/dL Hematocrit 44.6 42.0-54.0 % Mean Corpuscular Volume 79.1 80.0-94.0 fL Mean Corpuscular Hemoglobin 24.3 25.9-34.0 pg Mean Corpuscular HGB Conc 30.7 29.9-35.2 g/dL Red Cell Distribution Width 16.4 11.0-15.0 % Platelet Count 501 150-450 10 3/uL Mean Platelet Volume 8.8 9.5-13.5 fL Neutrophils Percent Auto 79.7 43.0-75.0 % Lymphocytes Percent Auto 9.7 20.5-60.0 % Monocytes Percent Auto 9.1 1.7-12.0 % Eosinophils Percent Auto 0.3 0.9-7.0 % Basophils Percent Auto 0.6 0.2-2.0 % Immature Granulocytes Pct Auto 0.6 0.0-0.5 % Neutrophils Absolute Auto 9.3 1.4-6.5 10 3/uL Lymphocytes Absolute Auto 1.1 1.2-3.8 10 3/uL Monocytes Absolute Auto 1.1 0.3-0.8 10 3/uL Eosinophils Absolute Auto 0.0 0.0-0.7 10 3/uL Basophils Absolute Auto 0.1 0.0-0.1 10 3/uL Immature Granulocytes Abs Auto 0.07 0.00-0.03 10 3/uL Performing Lab: see note ML - [facility] LB PET skull to mid thigh Reviewed date:06/04/2024 01:55:35 PM Interpretation: Performing Lab: Notes/Report: Source Facility: [address] [place] [address] PET Report Signed Patient: NABEEL TRAN MR#: [id number] : 1955 Acct:[id number] Age/Sex: 68 / M ADM Date: 05/12/24 Loc: PETCT Attending Dr: Sonia Donnelly M.D. Ordering Physician: Sonia Donnelly M.D. Date of Service: 05/12/24 Procedure(s): PET skull to mid thigh Accession Number(s): [id number] cc: AILIN GREEN ; Sonia Donnelly M.D. [place] [address] Patient Name: NABEEL TRAN MRN: [facility]:[id number] date: 1955 Sex: M Assigned Patient Location: PETCT Current Patient Location: PETCT Accession/Order Number: [id number] Exam Date: 05/12/2024 15:27 Report Date: 05/14/2024 16:07 At the request of: SONIA DONNELLY Procedure: PET skull to mid thigh NUCLEAR MEDICINE PET/CT HISTORY: Non-Hodgkin's lymphoma. COMPARISON: CT abdomen and pelvis 04/21/2024. CT chest 03/29/2024. METHOD: 15.21 mCi of F-18 FDG was administered intravenously. Blood sugar level at the time of the injection: 142. At 52 minutes from injection, PET images were obtained from the skull base through the midthigh levels in the axial plane. Reformatted images were performed in the sagittal and coronal planes. A low-dose, noncontrast CT scan was performed for attenuation correction and anatomical localization. A low dose, noncontrast and nondiagnostic CT scan was performed for attenuation correction and anatomic localization. Mediastinal blood pool SUV max 2.4 using the patient's body weight as the normalization method. FINDINGS: HEAD AND NECK: There are multiple right supraclavicular metabolically active lymph nodes, the largest measuring 1.2 x 1.4 cm with a maximum SUV of 5.9. CHEST: There are significant multiple right axillary and right subpectoral metabolically active lymph nodes, the largest measuring 3.4 x 1.7 cm with a maximum SUV of 12.5. The major airways are patent. There is no pericardial effusion. There is no evidence of abnormal metabolic uptake in the esophagus. There is no evidence of abnormal metabolic uptake in the lung parenchyma. There are no pleural effusions. There is no pneumothorax. ABDOMEN AND PELVIS: There is no evidence of abnormal metabolic activity in the liver or adrenal glands. There is no evidence of abnormal metabolic active lymph nodes in the abdomen or pelvis. There is no free fluid. There is physiologic uptake in the urinary system and bowel. There are right renal cysts. The prostate is enlarged. MUSCULOSKELETAL: There is no evidence of abnormal metabolically active bony lesions. PET/PET skull to mid thigh IMPRESSION: Multiple metabolically active right supraclavicular, right axillary, and right subpectoral lymph nodes consistent with lymphoma. No evidence of metabolically active lymphadenopathy below the diaphragm. Prostatomegaly. Right renal cysts. Deauville Score = 4 Electronically authenticated by: KASI SANCHEZ Date: 05/14/2024 16:07 Dictated By: Kasi Sanchez M.D. Signed By: 05/14/24 1610 DD/ 1607 TD/TT: Groundwater Monitoring Technician: [place] [address] PET Report Signed Patient: RUDDY TRAN MR#: [id number] : 1955 Acct:[id number] Age/Sex: 68 / M ADM Date: 05/12/24 Loc: PETCT Attending Dr: Liu Donnelly M.D. Ordering Physician: Sonia Donnelly M.D. Date of Service: 05/12/24 Procedure(s): PET sk ull to mid thigh Accession Number(s): [id number] cc: AILIN GREEN ; Sonia Donnelly M.D. [address] [address] Patient Name: NABEEL TRAN MRN: [facility]:[id number] date: 1955 Sex: M Assigned Patient Location: PETCT Current Patient Loca tion: PETCT Accession/Order Numb er: [id number] Exam Date: 15:27 Report Date: 05/14/2024 16:07 At the request of: SONIA DONNELLY Procedure: PET skull to mid thigh NUCLEAR MEDICINE PET/CT HISTORY: Non-Hodgkin 's lymphoma. COMPARISON: CT abdom en and pelvis 04/21/2024. CT chest 03/29/2024. METHOD: 15.21 mCi of F-18 FD G was administered intravenously. Blood sugar level at the time of the injectio n: 142. At 52 minutes from injection, PET images were obtained from the sk ull base through the midthigh levels in the axial plane. Reformatted images w ere performed in the sagittal and coronal planes. A low-dose, noncontras t CT scan was performed for attenuation correction and anatomical localizat ion. A low dose, noncontrast and nondiagnostic CT scan was performed for attenu ation correction and anatomic localization. Mediastinal blood po ol SUV max 2.4 using the patient's body weight as the normalization method. FINDINGS: HEAD AND NECK: There are multiple right supraclavicular metabolically active lymph nodes, the lar gest measuring 1.2 x 1.4 cm with a maximum SUV of 5.9. CHEST: There are significant multiple right axillary and right subpectoral metabolically active lymph nodes, the largest measuring 3.4 x 1.7 cm with a maximum SUV of 12.5. The major airways are patent. There is no pericardial effusion. There is n o evidence of abnormal metabolic uptake in the esophagus. There is no evidence of abnormal metabolic uptake in the lung parenchyma. There are no pleural effus ions. There is no pneumothorax. ABDOMEN AND PELVIS: There is no evidence of abnormal metabolic activity in the liver or adrenal gla nds. There is no evidence of abnormal metabolic active lymph nodes in the abdomen or pelvis. There is no free fluid. There is physiologic uptake i n the urinary system and bowel. There are right renal cysts. The prostate is enlarged. MUSCULOSKELETAL: The re is no evidence of abnormal metabolically active bony lesions. PET/PET skull to mid thigh IMPRESSION: Multiple metabolical ly active right supraclavicular, right axillary, and right subpectoral lymph no maria g consistent with lymphoma. No evidence of metabolically active lymphadenopathy below the diaphragm. Prostatomegaly. Right renal cysts. Deauville Score = 4 Electronically authenticated by: KASI SANCHEZ Date: 05/14/2024 16:07 Dictated By: Kasi Sanchez M.D. Signed By: 05/14/24 1610 DD/ 1606 TD/TT: Groundwater Monitoring Technician: CBC AUTO DIFF Reviewed date:04/23/2024 05:50:41 PM Interpretation: Performing Lab: Notes/Report: [facility] , White Blood Count 8.2 4.0-11.0 10 3/uL Red Blood Count 4.50 4.70-6.10 10 6/uL Hemoglobin 11.0 14.0-18.0 g/dL Hematocrit 35.2 42.0-54.0 % Mean Corpuscular Volume 78.2 80.0-94.0 fL Mean Corpuscular Hemoglobin 24.4 25.9-34.0 pg Mean Corpuscular HGB Conc 31.3 29.9-35.2 g/dL Red Cell Distribution Width 16.2 11.0-15.0 % Platelet Count 373 150-450 10 3/uL Mean Platelet Volume 8.8 9.5-13.5 fL Neutrophils Percent Auto 70.1 43.0-75.0 % Lymphocytes Percent Auto 14.9 20.5-60.0 % Monocytes Percent Auto 13.2 1.7-12.0 % Eosinophils Percent Auto 0.7 0.9-7.0 % Basophils Percent Auto 0.5 0.2-2.0 % Immature Granulocytes Pct Auto 0.6 0.0-0.5 % Neutrophils Absolute Auto 5.7 1.4-6.5 10 3/uL Lymphocytes Absolute Auto 1.2 1.2-3.8 10 3/uL Monocytes Absolute Auto 1.1 0.3-0.8 10 3/uL Eosinophils Absolute Auto 0.1 0.0-0.7 10 3/uL Basophils Absolute Auto 0.0 0.0-0.1 10 3/uL Immature Granulocytes Abs Auto 0.05 0.00-0.03 10 3/uL Performing Lab: see note ML - [facility] LB URIC ACID SERUM Reviewed date:04/23/2024 05:50:41 PM Interpretation: Performing Lab: Notes/Report: [facility] , Uric Acid 2.5 3.5-7.2 mg/dL Performing Lab: see note ML - [facility] LB LDH Reviewed date:04/23/2024 05:50:41 PM Interpretation: Performing Lab: Notes/Report: [facility] , Lactate Dehydrogenase 204 85-227 U/L Performing Lab: see note ML - [facility] LB Urine Culture, Routine Reviewed date:04/24/2024 04:45:33 PM Interpretation: Performing Lab: Notes/Report: [facility] , Urine Culture, Routine See Below For Report Urine Culture, Routine Urine Culture, Routine No growth Urine Culture, Routine Urine Culture, Routine Performed at: [facility] Urine Culture, Routine Urine Culture, Routine [address] [place] [id number] Urine Culture, Routine Urine Culture, Routine Testboard Operator: Jose Long PhD, Phone: [phone] Urine Culture, Routine Performing Lab: see note LC - [facility] LB SEE REPORT - Hatchery Manager Id information not found for OBX-specific bee producer legend EBV Antibody Profile Reviewed date:04/23/2024 08:50:57 AM Interpretation: Performing Lab: Notes/Report: [facility] , EBV Ab VCA, IgM <36.0 0.0-35.9 U/mL Negative <36.0 Equivocal 36.0 - 43.9 Positive >43.9 EBV Ab VCA, IgG >600.0 0.0-17.9 U/mL Negative <18.0 Equivocal 18.0 - 21.9 Positive >21.9 EBV Nuclear Antigen Ab, IgG 220.0 0.0-17.9 U/mL Negative <18.0 Equivocal 18.0 - 21.9 Positive >21.9 Interpretation: Comment . EBV Interpretation Chart [place]: Antibody Present + Antibody Absent - Interpretation VCA-IgM VCA-IgG EBNA-IgG No previous infection/ - - - Susceptible Primary infection (new + + - or recent) Past Infection +or- + + See comment below* + - - *Results indicate infection with EBV at some time however cannot predict the timing of the infection since antibodies to EBNA usually develop after primary infection or, alternatively, approximately 5-10% of patients with EBV never develop antibodies to EBNA. Performed at: CB - [facility] [address] [id number] Testboard Operator: Neville Long PhD, Phone: [phone] Performing Lab: see note - [facility] LB CBC AUTO DIFF Reviewed date:04/21/2024 03:00:17 PM Interpretation: Performing Lab: Notes/Report: [facility] , White Blood Count 9.5 4.0-11.0 10 3/uL Red Blood Count 5.23 4.70-6.10 10 6/uL Hemoglobin 13.0 14.0-18.0 g/dL Hematocrit 41.2 42.0-54.0 % Mean Corpuscular Volume 78.8 80.0-94.0 fL Mean Corpuscular Hemoglobin 24.9 25.9-34.0 pg Mean Corpuscular HGB Conc 31.6 29.9-35.2 g/dL Red Cell Distribution Width 16.1 11.0-15.0 % Platelet Count 413 150-450 10 3/uL Mean Platelet Volume 8.6 9.5-13.5 fL Neutrophils Percent Auto 74.5 43.0-75.0 % Lymphocytes Percent Auto 12.0 20.5-60.0 % Monocytes Percent Auto 12.0 1.7-12.0 % Eosinophils Percent Auto 0.3 0.9-7.0 % Basophils Percent Auto 0.4 0.2-2.0 % Immature Granulocytes Pct Auto 0.8 0.0-0.5 % Neutrophils Absolute Auto 7.1 1.4-6.5 10 3/uL Lymphocytes Absolute Auto 1.1 1.2-3.8 10 3/uL Monocytes Absolute Auto 1.1 0.3-0.8 10 3/uL Eosinophils Absolute Auto 0.0 0.0-0.7 10 3/uL Basophils Absolute Auto 0.0 0.0-0.1 10 3/uL Immature Granulocytes Abs Auto 0.08 0.00-0.03 10 3/uL Performing Lab: see note ML - [facility] LB CBC AUTO DIFF Reviewed date:04/18/2024 01:44:59 PM Interpretation: Performing Lab: Notes/Report: [facility] , White Blood Count 10.6 4.0-11.0 10 3/uL Red Blood Count 5.19 4.70-6.10 10 6/uL Hemoglobin 12.7 14.0-18.0 g/dL Hematocrit 41.1 42.0-54.0 % Mean Corpuscular Volume 79.2 80.0-94.0 fL Mean Corpuscular Hemoglobin 24.5 25.9-34.0 pg Mean Corpuscular HGB Conc 30.9 29.9-35.2 g/dL Red Cell Distribution Width 16.2 11.0-15.0 % Platelet Count 434 150-450 10 3/uL Mean Platelet Volume 8.7 9.5-13.5 fL Performing Lab: see note ML - [facility] LB US biopsy lymph node Reviewed date:04/29/2024 03:59:08 PM Interpretation: Performing Lab: Notes/Report: Source Facility: [facility]-[address] [place] [address] [place] [address] Ultrasound Report Signed with [place] Patient: NABEEL TRAN MR#: [id number] : 1955 Acct:[id number] Age/Sex: 68 / M ADM Date: 04/11/24 Loc: US Attending Dr: AILIN GREEN Ordering Physician: AILIN GREEN Date of Service: 04/11/24 Procedure(s): US biopsy lymph node Accession Number(s): [id number] cc: AILIN GREEN ADDENDUM [facility] [place] [address] Patient Name: NABEEL TRAN MRN: [id number] date: 1955 Sex: M Assigned Patient Location: US Current Patient Location: Accession/Order Number: [id number] Exam Date: 04/11/2024 09:30 Report Date: 04/20/2024 18:51 At the request of: AILIN GREEN Procedure: US biopsy lymph node Begin Addendum #1 COLLECTED DATE: 04/11/2024 Final Diagnosis Report for [facility] [place], [place] Pathological Diagnosis: A. Right axillary lymph node core biopsy: Consistent with atypical lymphoproliferative disorder. B. Pending flow cytometry analysis to follow. 04/18/2024 Faxed to Ailin Green NP. Verified with staff that report was present in office. Original Report EXAMINATION: US biopsy lymph node HISTORY: Enlarged Lymph Node COMPARISON: CT chest 03/29/2024, ultrasound extremity nonvascular right 03/25/2024 TECHNIQUE: After obtaining informed consent, ultrasound-guided fine needle aspiration was performed in the usual sterile manner. FINDINGS: IMAGING: Ultrasound. BIOPSY NEEDLE: 17-gauge spring-loaded core biopsy needle LOCATION: Right axilla 6. 1 cm enlarged lymph node versus mass. SPECIMEN TYPE: Cellular tissue. LOCAL ANESTHETIC: Buffered Xylocaine. COMPLICATIONS: None. LABORATORY: Prepared slide smears and washings for cell block evaluation. OTHER: Negative. PATHOLOGY: Pending. An addendum will be added when results are available. Addendum Dictated By: Nabeel Strange M.D. Addendum Signed By: <Electronically signed by Nabeel Strange M.D.> 04/29/24903 Addendum Cosigned By: DD/ TD/TT: / ADDENDUM US/US biopsy lymph node IMPRESSION: 1. Uneventful ultrasound guided fine needle aspiration (FNA). 2. Pathology results are pending. Electronically authenticated by: NABEEL STRANGE Date: 04/20/2024 18:51 Addendum Dictated By: Nabeel Strange M.D. Addendum Signed By: <Electronically signed by Nabeel Strange M.D.> 04/29/24903 Addendum Cosigned By: DD/ TD/TT: / [place] [address] Patient Name: NABEEL TRAN MRN: [id number] date: 1955 Sex: M Assigned Patient Location: US Current Patient Location: Accession/Order Number: [id number] Exam Date: 04/11/2024 09:30 Report Date: 04/11/2024 11:48 At the request of: AILIN GREEN Procedure: US biopsy lymph node EXAMINATION: US biopsy lymph node HISTORY: Enlarged Lymph Node COMPARISON: CT chest 03/29/2024, ultrasound extremity nonvascular right 03/25/2024 TECHNIQUE: After obtaining informed consent, ultrasound-guided fine needle aspiration was performed in the usual sterile manner. FINDINGS: IMAGING: Ultrasound. BIOPSY NEEDLE: 17-gauge spring-loaded core biopsy needle LOCATION: Right axilla 6.1 cm enlarged lymph node versus mass. SPECIMEN TYPE: Cellular tissue. LOCAL ANESTHETIC: Buffered Xylocaine. COMPLICATIONS: None. LABORATORY: Prepared slide smears and washings for cell block evaluation. OTHER: Negative. PATHOLOGY: Pending. An addendum will be added when results are available. US/US biopsy lymph node IMPRESSION: 1. Uneventful ultrasound guided fine needle aspiration (FNA). 2. Pathology results are pending. Electronically authenticated by: NABEEL STRANGE Date: 04/11/2024 11:48 Dictated By: Nabeel Strange M.D. Signed By: 04/11/24 1150 DD/ 1148 TD/TT: Groundwater Monitoring Technician: [place] [address] Ultrasound Report Signed with Addenda Patient: RUDDY TRAN MR#: [id number] : 1955 Acct:[id number] Age/Sex: 68 / M ADM Date: 04/11/24 Loc: US Attending Dr: AILIN GREEN Ordering Physician: AILIN GREEN Date of Service: 04/11/24 Procedure(s): US bio psy lymph node Accession Number(s): [id number] cc: AILIN GREEN ADDENDUM [facility] [place] [id number] Patient Name: NABEEL TRAN MRN: [id number] date: 1955 Sex: M Assigned Patient Location: US Current Patient Location: Accession/Order Numb er: [id number] Exam Date: 04/11/2024 09:30 Report Date: 04/20/2024 18:51 At the request of: AILIN GREEN Procedure: US biopsy lymph node Begin Addendum #1 COLLECTED DATE: 04/11/2024 Final Diagnosis Report for [facility] [place], [place] Pathological Diagnosis: A. Right axillary ly mph node core biopsy: Consistent with atypical lymphoproliferative disorder. B. Pending flow cyto metry analysis to follow. 04/18/2024 Faxed to Angelina Green NP. Verified with staff that report was present in office. Original Report EXAMINATION: US biop sy lymph node HISTORY: Enlarged Ly mph Node COMPARISON: CT chest 03/29/2024, ultrasound extremity nonvascular right 03/25/2024 TECHNIQUE: After obtaining informed consent, ultrasound-guided fine needle aspiration was perfo rmed in the usual sterile manner. FINDINGS: IMAGING: Ultrasound. BIOPSY NEEDLE: 17-ga uge spring-loaded core biopsy needle LOCATION: Right axil la 6. 1 cm enlarged lymph node versus mass. SPECIMEN TYPE: Cellu lar tissue. LOCAL ANESTHETIC: Buffered Xylocaine. COMPLICATIONS: None. LABORATORY: Prepared slide smears and washings for cell block evaluation. OTHER: Negative. PATHOLOGY: Pending. An addendum will be added when results are available. Addendum Dictated By : Nabeel Strange M.D. Addendum Signed By: <Electronically signed by Nabeel Strange M.D.> 04/29/24903 Addendum Cosigned By: DD/ TD/TT: / ADDENDUM U S/ biopsy lymph node IMPRESSION: 1. Uneventful ultras ound guided fine needle aspiration (FNA). 2. Pathology results are pending. Electronically authenticated by: NABEEL STRANGE Date: 04/20/2024 18:51 Addendum Dictated By : Nabeel Strange M.D. Addendum Signed By: <Electronically signed by Nabeel Strange M.D.> 04/29/24903 Addendum Cosigned By: DD/ TD/TT: / [address] [address] Patient Name: NABEEL TRAN MRN: [id number] date: 1955 Sex: M Assigned Patient Location: US Current Patient Location: Accession/Order Numb er: [id number] Exam Date: 04/11/2024 09:30 Report Date: 04/11/2024 11:48 At the request of: AILIN GREEN Procedure: US biopsy lymph node EXAMINATION: US biop sy lymph node HISTORY: Enlarged Ly mph Node COMPARISON: CT chest 03/29/2024, ultrasound extremity nonvascular right 03/25/2024 TECHNIQUE: After obtaining informed consent, ultrasound-guided fine needle aspiration was perfo rmed in the usual sterile manner. FINDINGS: IMAGING: Ultrasound. BIOPSY NEEDLE: 17-ga uge spring-loaded core biopsy needle LOCATION: Right axil la 6.1 cm enlarged lymph node versus mass. SPECIMEN TYPE: Cellu lar tissue. LOCAL ANESTHETIC: Buffered Xylocaine. COMPLICATIONS: None. LABORATORY: Prepared slide smears and washings for cell block evaluation. OTHER: Negative. PATHOLOGY: Pending. An addendum will be added when results are available. U S/US biopsy lymph node IMPRESSION: 1. Uneventful ultras ound guided fine needle aspiration (FNA). 2. Pathology results are pending. Electronically authenticated by: NABEEL STRANGE Date: 04/11/2024 11:48 Dictated By: Nabeel Strange M.D. Signed By: 04/11/24 1150 DD/ 1148 TD/TT: Groundwater Monitoring Technician: Occult Blood* Reviewed date:03/24/2024 12:38:01 PM Interpretation: Performing Lab: Notes/Report: [facility] , Occult Blood Negative Performing Lab: see note ML - [facility] LB URIC ACID SERUM Reviewed date:03/24/2024 12:38:02 PM Interpretation: Performing Lab: Notes/Report: [facility] , Uric Acid 3.1 3.5-7.2 mg/dL Performing Lab: see note ML - [facility] LB PSA SCREENING Reviewed date:03/24/2024 12:38:02 PM Interpretation: Performing Lab: Notes/Report: [facility] , Prostate Specific Antigen Scrn 2.44 <=4.00 ng/mL Performing Lab: see note ML - [facility] LB PROF 14(COMP METB) Reviewed date:03/24/2024 12:38:02 PM Interpretation: Performing Lab: Notes/Report: [facility] , Sodium 133 136-145 mmol/L Potassium 4.6 3.5-5.1 mmol/L Chloride 94 98-107 mmol/L Carbon Dioxide 30.2 21.0-32.0 mmol/L Anion Gap 13.4 Glucose 339 74-106 mg/dL Blood Urea Nitrogen 12.0 7.0-18.0 mg/dL Creatinine 0.99 0.70-1.30 mg/dL Estimated GFR ( Samantha >60 >=60 Estimated GFR (Non- Aury >60 >=60 BUN Creatinine Ratio 12.1 Calcium 9.5 8.5-10.1 mg/dL Bilirubin Total 0.8 0.2-1.0 mg/dL Aspartate Amino Transferase 40 15-37 U/L Alanine Aminotransferase 80 16-63 U/L Alkaline Phosphatase 128 46-116 U/L Total Protein 8.0 6.4-8.2 g/dL Albumin Level 2.4 3.4-5.0 g/dL Globulin 5.6 Albumin Globulin Ratio 0.4 Performing Lab: see note ML - [facility] LB LIPID PROFILE Reviewed date:03/24/2024 12:38:02 PM Interpretation: Performing Lab: Notes/Report: [facility] , Triglycerides 91 <=150 mg/dL Cholesterol 86 <=200 mg/dL HDL Cholesterol 42 40-60 mg/dL > or =60 mg/dl - LOW CARDIOVASCULAR RISK <40 mg/dl - HIGH CARDIOVASCULAR RISK LDL Cholesterol Calculated 25.8 <100 mg/dl OPTIMAL 100-129 mg/dl NEAR OR ABOVE OPTIMAL 130-159 mg/dl BORDERLINE HIGH 160-189 mg/dl HIGH >190 mg/dl VERY HIGH VLDL CHOLESTEROL 18.2 Chol HDL Ratio 2.0 3.3 - 4.4 LOW RISK 4.4 - 7.1 AVERAGE RISK 7.1 - 11.0 MODERATE RISK >11.0 HIGH RISK Performing Lab: see note ML - [facility] LB GLYCOHEMOGLOBIN A1C Reviewed date:03/24/2024 12:38:02 PM Interpretation: Performing Lab: Notes/Report: [facility] , Glycohemoglobin A1C 12.2 4.5-6.2 % ADA RECOMMENDED LIMIT 4.0 - 6.0 ADA THERAPEUTIC TARGET < 7.0 ACTION SUGGESTED > 7.0 Estimated Average Glucose 303 Performing Lab: see note ML - [facility] LB CBC AUTO DIFF Reviewed date:03/24/2024 12:38:02 PM Interpretation: Performing Lab: Notes/Report: [facility] , White Blood Count 9.6 4.0-11.0 10 3/uL Red Blood Count 5.08 4.70-6.10 10 6/uL Hemoglobin 12.8 14.0-18.0 g/dL Hematocrit 40.9 42.0-54.0 % Mean Corpuscular Volume 80.5 80.0-94.0 fL Mean Corpuscular Hemoglobin 25.2 25.9-34.0 pg Mean Corpuscular HGB Conc 31.3 29.9-35.2 g/dL Red Cell Distribution Width 16.2 11.0-15.0 % Platelet Count 355 150-450 10 3/uL Mean Platelet Volume 9.3 9.5-13.5 fL Neutrophils Percent Auto 72.2 43.0-75.0 % Lymphocytes Percent Auto 14.5 20.5-60.0 % Monocytes Percent Auto 11.6 1.7-12.0 % Eosinophils Percent Auto 0.5 0.9-7.0 % Basophils Percent Auto 0.6 0.2-2.0 % Immature Granulocytes Pct Auto 0.6 0.0-0.5 % Neutrophils Absolute Auto 6.9 1.4-6.5 10 3/uL Lymphocytes Absolute Auto 1.4 1.2-3.8 10 3/uL Monocytes Absolute Auto 1.1 0.3-0.8 10 3/uL Eosinophils Absolute Auto 0.1 0.0-0.7 10 3/uL Basophils Absolute Auto 0.1 0.0-0.1 10 3/uL Immature Granulocytes Abs Auto 0.06 0.00-0.03 10 3/uL Performing Lab: see note ML - [facility] LB CA echo doppler complete Reviewed date:03/07/2024 11:34:48 AM Interpretation: Performing Lab: Notes/Report: Source Facility: [facility]-[address] [place] [address] [place] [address] Cardiology Report Signed Patient: NABEEL TRAN MR#: [id number] : 1955 Acct:[id number] Age/Sex: 68 / M ADM Date: 03/06/24 Loc: CARD Attending Dr: JEROD MANUEL Ordering Physician: JEROD MANUEL Date of Service: 03/06/24 Procedure(s): CA echo doppler complete Accession Number(s): [id number] cc: AILIN GREEN ; JEROD MANUEL Patient Name: NABEEL TRAN MR#: [id number] : 1955 Exam Date: 03/06/2024 Ordering Doctor: DR JEROD MANUEL M.D. ECHOCARDIOGRAM REPORT PROCEDURE: CA ECHO DOPPLER COMPLETE INDICATIONS: Aortic regurgitation, Mitral regurgitation, dyspnea, hypertension, diabetes COMPARISON: None. DESCRIPTION: COMPLETE ECHOCARDIOGRAM Real-time transthoracic echocardiography with 2D, M-mode, spectral and color flow Doppler performed. QUALITY: Technical quality was good. LEFT VENTRICLE: Normal chamber size. Mild concentric left ventricular hypertrophy. LV EF: Global left ventricular systolic function is hyperdynamic; visually estimated ejection fraction is 65 to 70%. No obvious wall motion abnormalities. DIASTOLIC: Normal diastolic function. ATRIAL SEPTUM: Inadequately seen. LEFT ATRIUM: Moderate dilatation. RIGHT ATRIUM: Mild dilatation. RIGHT VENTRICLE: Normal chamber size. Normal right ventricular systolic function. TRICUSPID VALVE: Normal mobility and thickness. Mild regurgitation. No evidence of pulmonary hypertension. RVSP 34 mmHg MITRAL VALVE: Normal mobility and thickness. No evidence of mitral valve stenosis. There is no mitral annular calcification. Mild mitral regurgitation. AORTIC VALVE: Normal trileaflet appearance. Mildly calcified aortic valve. Doppler velocity suggests mild aortic valve stenosis. DVI 0.5, REBEKAH 1.9 cm2. Trivial aortic regurgitation. AORTIC ROOT: Normal diameter and appearance. PULMONIC VALVE: Normal thickness and mobility. No stenosis. No regurgitation. PERICARDIUM: No evidence of pericardial effusion. IVC: Not well visualized. CONCLUSION: 1. Global left ventricular systolic function is hyperdynamic; visually estimated ejection fraction 65 to 70% 2. Normal right ventricular size and systolic function 3. Mild left ventricular hypertrophy 4. Biatrial enlargement 5. Normal diastolic function 6. Mild mitral regurgitation 7. Mild tricuspid regurgitation 8. Mild aortic valve stenosis Adult Echocardiography Procedure Report Left Ventricle LVEDD (3.7 - 5.6 cm): 4.71 cm LVESD (2.2 - 4.0 cm): 2.73 cm LVIVS thickness (0.6 - 1.2 cm): 1.14 cm LVPW thickness (0.5 - 1.0 cm): 1.20 cm e': 0.12 m/s E - e': 7.63 LVOT Max Gradient: 8.76 mm[Hg], 4.03 mm[Hg] LVOT Area (cm2): 1.24 m/s Peak Velocity (LVOT): 1.48 m/s, 1.00 m/s Mean Velocity (LVOT): 0.66 m/s LVOT Diameter 2.18 cm Left Atrium LA Volume Index (2D A2C): 46.26 ml/m2 Left Atrium Systolic Dimension: 3.29 cm Mitral Valve MV E to A Ratio: 1.25, 1.10 Mitral Valve A-Wave Peak Velocity: 0.79 m/s Mitral Valve E-Wave Peak Velocity: 0.93 m/s Right Ventricle Aorta AO Root Diam: 3.83 cm Ascending Ao Diam: 2.86 cm Aortic Valve AoV Area (Peak Walt): 1.85 cm2, 2.04 cm2, 1.64 cm2 AoV Area (VTI): 1.90 cm2, 2.21 cm2, 1.60 cm2 Peak Velocity(Antegrade Flow): 2.72 m/s, 2.29 m/s Peak Gradient(Antegrade Flow): 29.53 mm[Hg], 21.04 mm[Hg] Mean Velocity(Antegrade Flow): 1.70 m/s, 1.71 m/s Mean Gradient(Antegrade Flow): 13.30 mm[Hg], 12.86 mm[Hg] Velocity Time Integral: 43.59 cm, 44.47 cm Tricuspid Valve Peak Velocity (Regurgitant Flow): 2.55 m/s, 2.37 m/s, 2.41 m/s, 2.35 m/s, 2.57 m/s, 2.77 m/s, 2.69 m/s Pulmonic Valve Peak Velocity: 0.99 m/s Peak Gradient: 4.86 mm[Hg], 3.68 mm[Hg], 3.84 mm[Hg], 3.51 mm[Hg] Right Atrium Right Atrium Systolic Pressure: 59.78 ml, 59.78 ml Dictated by: Deena Tilley M.D. on 03/07/2024 at 09:16 Approved by: Deena Tilley M.D. on 03/07/2024 at 09:27 Dictated By: Deena Tilley M.D. Signed By: 03/07/24927 DD/ 6 TD/TT: Groundwater Monitoring Technician: The [address] [address] Cardiology Report Signed Patient: RUDDY TRAN MR#: [id number] : 1955 Acct:[id number] Age/Sex: 68 / M ADM Date: 03/06/24 Loc: CARD Attending Dr: JEROD MANUEL Ordering Physician: JEROD MANUEL Date of Service: 03/06/24 Procedure(s): CA ech o doppler complete Accession Number(s): [id number] cc: AILIN GREEN ; JEROD MANUEL Patient Name: NABEEL TRAN MR#: [id number] : 1955 Exam Date: 03/06/2024 Ordering Doctor: DR JEROD MANUEL M.D. ECHOCARDIOGRAM REPORT PROCEDURE: CA ECHO DOPPLER COMPLETE INDICATIONS: Aortic regurgitation, Mitral regurgitation, dyspnea, hypertension, diabetes COMPARISON: None. DESCRIPTION: COMPLET E ECHOCARDIOGRAM Real-time transthoracic echocardiography wit h 2D, M-mode, spectral and color flow Doppler performed. QUALITY: Technical quality was good. LEFT VENTRICLE: Norm al chamber size. Mild concentric left ventricular hypertrophy. LV EF: Global left ventricular systolic function is hyperdynamic; visually estimated ejection fraction is 65 to 70%. No obvious wall motion abnormalities. DIASTOLIC: Normal diastolic function. ATRIAL SEPTUM: Inadequately seen. LEFT ATRIUM: Moderat e dilatation. RIGHT ATRIUM: Mild dilatation. RIGHT VENTRICLE: Nor mal chamber size. Normal right ventricular systolic function. TRICUSPID VALVE: Nor mal mobility and thickness. Mild regurgitation. No evidence of pulmonar y hypertension. RVSP 34 mmHg MITRAL VALVE: Normal mobility and thickness. No evidence of mitral valve stenosis. There is n o mitral annular calcification. Mild mitral regurgitation. AORTIC VALVE: Normal trileaflet appearance. Mildly calcified aortic valve. Doppler velocity sug gests mild aortic valve stenosis. DVI 0.5, REBEKAH 1.9 cm2. Trivial aortic regurgitation. AORTIC ROOT: Normal diameter and appearance. PULMONIC VALVE: Norm al thickness and mobility. No stenosis. No regurgitation. PERICARDIUM: No evid ence of pericardial effusion. IVC: Not well visualized. CONCLUSION: 1. Global left ventricular systolic function is hyperdynamic; visually estimated ejection fraction 65 to 70% 2. Normal right ventricular size and systolic function 3. Mild left ventric ular hypertrophy 4. Biatrial enlargement 5. Normal diastolic function 6. Mild mitral regurgitation 7. Mild tricuspid regurgitation 8. Mild aortic valve stenosis Adult Echocardiograp hy Procedure Report Left Ventricle LVEDD (3.7 - 5.6 cm) : 4.71 cm LVESD (2.2 - 4.0 cm) : 2.73 cm LVIVS thickness (0.6 - 1.2 cm): 1.14 cm LVPW thickness (0.5 - 1.0 cm): 1.20 cm e': 0.12 m/s E - e': 7.63 LVOT Max Gradient: 8 .76 mm[Hg], 4.03 mm[Hg] LVOT Area (cm2): 1.24 m/s Peak Velocity (LVOT) : 1.48 m/s, 1.00 m/s Mean Velocity (LVOT) : 0.66 m/s LVOT Diameter 2.18 cm Left Atrium LA Volume Index (2D A2C): 46.26 ml/m2 Left Atrium Systolic Dimension: 3.29 cm Mitral Valve MV E to A Ratio: 1.2 5, 1.10 Mitral Valve A-Wave Peak Velocity: 0.79 m/s Mitral Valve E-Wave Peak Velocity: 0.93 m/s Right Ventricle Aorta AO Root Diam: 3.83 cm Ascending Ao Diam: 2 .86 cm Aortic Valve AoV Area (Peak Walt): 1.85 cm2, 2.04 cm2, 1.64 cm2 AoV Area (VTI): 1.90 cm2, 2.21 cm2, 1.60 cm2 Peak Velocity(Antegr julien Flow): 2.72 m/s, 2.29 m/s Peak Gradient(Antegr julien Flow): 29.53 mm[Hg], 21.04 mm[Hg] Mean Velocity(Antegr julien Flow): 1.70 m/s, 1.71 m/s Mean Gradient(Antegr julien Flow): 13.30 mm[Hg], 12.86 mm[Hg] Velocity Time Integr al: 43.59 cm, 44.47 cm Tricuspid Valve Peak Velocity (Regurgitant Flow): 2.55 m/s, 2.37 m/s, 2.41 m/s, 2.35 m/s, 2.57 m/s, 2.77 m/s, 2.69 m/s Pulmonic Valve Peak Velocity: 0.99 m/s Peak Gradient: 4.86 mm[Hg], 3.68 mm[Hg], 3.84 mm[Hg], 3.51 mm[Hg] Right Atrium Right Atrium Systoli c Pressure: 59.78 ml, 59.78 ml Dictated by: Deena Tilley M.D. on 03/07/2024 at 09:16 Approved by: Deena Tilley M.D. on 03/07/2024 at 09:27 Dictated By: Deena Tilley M.D. Signed By: 03/07/24927 DD/ 6 TD/TT: Groundwater Monitoring Technician: PET skull to mid thigh (Not yet reviewed by provider) Interpretation: Performing Lab: Notes/Report: Source Facility: [place] [address] PET Report Signed Patient: NABEEL TRAN MR#: [id number] : 1955 Acct:[id number] Age/Sex: 69 / M ADM Date: 12/15/24 Loc: PETCT Attending Dr: Sonia Donnelly M.D. Ordering Physician: Sonia Donnelly M.D. Date of Service: 12/15/24 Procedure(s): PET skull to mid thigh Accession Number(s): [id number] cc: AILIN GREEN Apoorva M.D. [place] [address] Patient Name: NABEEL TRAN MRN: [id number] date: 1955 Sex: M Assigned Patient Location: PETCT Current Patient Location: Accession/Order Number: [id number] Exam Date: 12/16/2024 09:23 Report Date: 12/16/2024 09:43 At the request of: SONIA DONNELLY MD Procedure: PET skull to mid thigh PET/CT WITH FUSION COMPARISON: 05/12/2024 CLINICAL DATA: Follow-up lymphoma Following the intravenous administration of 12.91 mCi of FDG, SPECT imaging in 3 planes was performed from the level the orbits through the groin. Patient's blood glucose level at the time of injection was 116 mg/dL. Spiral unenhanced CT was also performed for anatomic localization. The PET and CT images were fused. This CT exam was performed using one or more following dose reduction techniques: Automated exposure control, adjustment of the mA and/or kV according to patient size, or use of iterative reconstruction technique. NECK: No residual enlarged or hypermetabolic lymph nodes are identified. Mild physiologic activity is seen at the thyroid lobes. CHEST: No enlarged or hypermetabolic mediastinal or hilar lymph nodes are present. There are calcified hilar granulomas, greater on the left. There are hemostasis clips at the right axilla. There is one residual enlarged lymph node with SUV of 2.2. There is significant improvement of other adenopathy seen at that site at the time of the comparison. No other residual hypermetabolism is present. There is atelectasis and/or scarring at the lower lungs and a left lower lobe calcified granuloma. ABDOMEN/PELVIS: There are no hypermetabolic hepatic or adrenal lesions. There are no enlarged or hypermetabolic abdominal or pelvic lymph nodes. There is physiologic activity involving the urinary tract and bowel. There are multiple renal hypodensities suggesting potential cysts. There is a tiny umbilical hernia containing fat. There is enlarged prostate with calcifications. PET/PET skull to mid thigh IMPRESSION: SIGNIFICANT IMPROVEMENT OF RIGHT SUPRACLAVICULAR AND AXILLARY ADENOPATHY WITH ONE RESIDUAL ENLARGED AXILLARY LYMPH NODE WITH SUV OF 2.2 Deauville score 2 Impression dictated by: Evelyn Guidry M.D. 12/16/2024 9:43 AM Dictation Location: [place] [address] Electronically authenticated by: [id number] Y Date: 12/16/2024 09:43 Dictated By: Evelyn Guidry M.D. 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 Ordering Physician: Sonia Donnelly M.D. Date of Service: 12/15/24 Procedure(s): PET sk ull to mid thigh Accession Number(s): [id number] cc: AILIN GREEN ; Sonia Donnelly M.D. The [address] [address] Patient Name: NABEEL TRAN MRN: [id number] date: 1955 Sex: M Assigned Patient Location: PETCT Current Patient Location: Accession/Order Numb er: [id number] Exam Date: 12/16/2024 09:23 Report Date: 12/16/2024 09:43 At the request of: SONIA DONNELLY MD Procedure: PET skull to mid thigh PET/CT WITH FUSION COMPARISON: 05/12/2024 CLINICAL DATA: Follo w-up lymphoma Following the intrav enous administration of 12.91 mCi of FDG, SPECT imaging in 3 planes was perform ed from the level the orbits through the groin. Patient's blood glucose level at the time of injection was 116 mg/dL. Spiral unenhanced CT was also performe d for anatomic localization. The PET and CT images were fused. This CT exam was performed using one or more following dose reduction techniques: Automate d exposure control, adjustment of the mA and/or kV according to patient size, or use of iterative reconstruction technique. NECK: No residual enlarged or hypermetabolic lymph nodes are identified. Mild physiologic act ivity is seen at the thyroid lobes. CHEST: No enlarged o r hypermetabolic mediastinal or hilar lymph nodes are present. There are calcified hilar granulomas, greater on the left. There are hemostasis clips at the right axilla. There is one residual enlarged lymph node with SUV of 2.2. There is significant improvement of other adenopathy seen at t [facility] site at the time of the comparison. No other residual hypermetabolism is present. There is atelectasis and/or scarring at the lower lungs and a left low er lobe calcified granuloma. ABDOMEN/PELVIS: Ther e are no hypermetabolic hepatic or adrenal lesions. There are no enlarged or hypermetabolic abdominal or pelvic lymph nodes. There is physiologic activity involving the urinary tract and bowel. There are multiple renal hypodensities suggesting potential cysts. There is a tiny umbilical hernia containing fat. There is enlarged prostate with calcifications. PET/PET skull to mid thigh IMPRESSION: SIGNIFICANT IMPROVEM ENT OF RIGHT SUPRACLAVICULAR AND AXILLARY ADENOPATHY WITH ONE RESIDUAL ENLARGE D AXILLARY LYMPH NODE WITH SUV OF 2.2 Deauville score 2 Impression dictated by: Evelyn Guidry M.D. 12/16/2024 9:43 AM Dictation Location: [place] [address] Electronically authenticated by: [id number] Y Date: 12/16/2024 09:43 Dictated By: Evelyn Guidry M.D. Signed By: 12/16/24 0945 DD/ 0943 TD/TT: Groundwater Monitoring Technician: Reason For Referral Diagnosis 1 Hearing loss (H91.90 ) Referral Organization [facility] Referring Provider First Name Ailin Referring Provider Last Name Peter Referring Provider [facility] icine Referred Provider Eddie Sun Referred Provider Specialty Otolaryngolo gy Referral Priority Routine Diagnosis 1 Unsteady gait (R26.8 1) Referral Organization [facility] Referring Provider First Name Ailin Referring Provider Last Name Peter Referring Provider [facility] icine Referred Provider [facility] Physical [facility]rap y Referred Provider Specialty Physical Med icine and Rehabilitation Referral Priority Routine Reason please schedule JOAQUIN Diagnosis 1 Unsteady gait (R26.8 1) Diagnosis 2 Generalized weakness (R53.1) Referral Organization [facility] Referring Provider First Name Ailin Referring Provider Last Name Peter Referring Provider [facility] icine Referred Provider Kathleen Chester Referred Provider Specialty Neurology Referral Priority Routine Diagnosis 1 Hearing loss (H91.90 ) Diagnosis 2 Bilateral impacted c erumen (H61.23) Referral Organization [facility] Referring Provider First Name Ailin Referring Provider Last Name Peter Referring Provider Speciality Family [facility] laurie Referred Provider Fabiola Larkin Referred Provider Specialty Otolaryngolo gy Referral Priority Routine Medications Medication SIG (Take, Route, Frequency, Duration) Notes Start Date End Date Status Dexcom G7 Sensor - Use 1 senor every 10 days for 90 days 08/08/2024 Active dilTIAZem HCl ER 240 MG 1 tablet Orally Once a day for 90 days 07/24/2024 Active Pantoprazole Sodium 40 MG 1 tablet 1/2 t o 1 hour before morning meal Orally Once a day Active Dexcom G7 Almond Paste Molder - Use transmitter to monitor glucose daily DX E11.9 for 365 days 08/08/2024 Active Lantus SoloStar 100 UNIT/ML Inject 14 units Subcutaneous at bedtime DX:E11.9 for 90 days Active Eliquis 5 MG as directed Orally b id for 90 days 07/24/2024 Active Liothyronine Sodium 5 MCG 2 tablets on a n empty stomach Orally Once a day for 30 days 05/30/2024 Active Metoprolol Tartrate 50 MG 1 tablet with food Orally Twice a day for 90 days 06/10/2024 Active Pen Tsaile 32G X 5 MM Use pen needles o n insulin once daily DX E11.9 for 90 days 05/30/2024 Active Glucagon Emergency 1 MG as directed Inje ction as needed 04/04/2024 Active Carafate 1 GM 1 tablet on an empty stomach Orally three times daily Active Atorvastatin Calcium 40 MG TAKE 1 TABLET BY MOUTH EVERY NIGHT AT BEDTIME for 90 Active PreserVision AREDS OTC A ctive Ondansetron HCl 4 MG TAKE 1 TABLET BY MO [facility] ONCE DAILY NEEDED for 60 Active Januvia 100 MG TAKE 1 TABLET BY PRAVIN TH ONCE DAILY for 90 Active Social History Tobacco Use: Social History Observation Description Date Details (start date - stop date) Never Smoker NA - NA Tobacco Use/Smoking Question Answer Notes Patient is a nonsmoker Alcohol Screen (Audit-C) Question Answer Notes Did you have a drink containing alcohol in the p ast year? No Points 0 Interpretation Negative AUDIT-C (Standard) Question Answer Notes Did you have a drink containing alcohol in the p ast year? No Points 0 Interpretation Negative Problems Problem Type SNOMED Code ICD Code Onset Dates Problem Status W/U Status Risk Notes Problem [id number] Hodgkin lymphoma , unspecified, unspecified site (C81.90) Active confirmed Problem Claustrophobia (54343709) Claustrophobia (F40.240) Active confirmed Problem Hypothyroidism (41272701) Hypothyroidism (E03.9) Active confirmed Problem Atrial fibrillation (disorder) (72400161) Afib (I48.91) Active confirmed Problem Hypertension (63272672) HTN (hypertension) (I10) Active confirmed Problem Anemia (774419243) Anemia (D64.9) Active confir med Problem Peripheral neuropathy (274534186) Peripheral neuropathy (G62.9) Active confirmed Problem Atrial fibrillation (99735610) Atrial fibrillation (I48.91) Active confirmed Problem Hearing loss (61822069) Hearing loss (H91.90) Active confirmed Problem Acquired hypothyroidism (042523131) Acquired hypothyroidism (E03.9) Active confirmed Problem Iron deficiency anemia (23713103) Iron deficiency anemia (D50.9) Active confirmed Problem Glucosuria (99269260) Glucosuria (R81) Active confirmed Problem Supraventricular arrhythmia (79402286) Supraventricular arrhythmia (I49.9) Active confirmed Problem Unsteady gait (40576490) Unsteady gait (R26.81) Active confirmed Problem Acoustic neuroma (838622522) Acoustic neuroma (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.3) Active confirmed Problem Hodgkin lymphoma (1629393116) Hodgkin lymphoma (C81.90) Active confirmed Problem Hearing loss (79076231) Deafness in right ear (H91.91) Active confirmed Problem Adult failure to thrive syndrome (453320573) Failure to thrive in adult (R62.7) Active confirmed Problem Lower urinary tract symptoms due to benign prostatic hypertrophy (27410325830458) BPH with obstruction/lower urinary tract symptoms (N40.1) Active confirmed Problem Severe protein calorie malnutrition (178646254) Severe protein-calorie malnutrition (E43) Active confirmed Problem Tunneled central venous catheter in situ (417233588) Port-a-cath in place (Z95.828) Active confirmed Problem Hodgkins lymphom a (C81.90) Active confirmed Problem Lower urinary tract obstructive syndrome (67898411) Lower urinary obstructive symptom (N13.9) Active confirmed Problem Lung function restrictive (finding) (288172215) Restrictive pattern present on pulmonary function testing (R94.2) Active confirmed Problem Diabetes mellitus (69734824) Diabetes mellitus (E11.9) Active confirmed Problem Hyperglycemia due to diabetes mellitus (100170819) Hyperglycemia due to diabetes mellitus (E11.65) Active confirmed Vital Signs Blood pressure diastolic 58 mm Hg 08/13/2024 Height 74 in 08/13/2024 Blood pressure systolic 100 mm Hg 08/13/2024 Weight 179.2 lbs 08/13/2024 BMI 23.01 kg/m2 08/13/2024 Procedures Procedure Date Ordered Date Performed Result Body Sit e Cerumen Removal - performed 05/01/2024 N/A Encounters Encounter Location Date Provider Diagnosis [facility] [address] [place] [address] 07/24/2024 Ailin Green [facility] [address] [place] [address] 07/24/2024 Ailin Green [facility] [address] [place] [address] 08/07/2024 Ailin Green [facility] [address] [place] [address] 08/12/2024 Ailin Green [facility] [address] [place] [address] 08/13/2024 Ailin Green [facility] [address] [place] [address] 11/11/2024 Ailin Green [facility] [address] [place] [address] 06/12/2024 Ailin Green [facility] [address] [place] [address] 06/13/2024 Ailin Green [facility] [address] [place] [address] 06/17/2024 Ailin Green [facility] [address] [place] [address] 06/20/2024 Ailin Green [facility] [address] [place] [address] 06/23/2024 Ailin Green [facility] [address] [facility] [place] [address] 07/17/2024 Ailin Green [facility] [address] [facility] [place] [facility] [place] [address] 05/28/2024 Ailin Green [facility] [address] [facility] [place] [address] 05/30/2024 Ailin Green Hyperglycemia due to diabetes mellitus E11.65 and HTN (hypertension) I10 [facility] [address] [facility] [place] [facility] [place] [address] 05/30/2024 Ailin Green Nausea R11.0 and Hyperglycemia due to diabetes mellitus E11.65 [facility] [address] [facility] [place] [address] 06/05/2024 Ailin Green [facility] [address] [facility] [place] [facility] [place] [address] 06/06/2024 Ailin Green Hyperglycemia due to diabetes mellitus E11.65 [facility] [address] [facility] [place] [address] 06/10/2024 Ailin Green [facility] [address] [facility] [place] [place] [address] 04/23/2024 Ailin Green [facility] [address] [facility] [place] [address] 04/24/2024 Ailin Green Hearing loss H91.90 [facility] [address] [facility] [place] [place] [address] 05/01/2024 Ailin Green [facility] [address] [place] [place] [place] [address] 05/12/2024 Ailin Green [facility] [address] [place] [place] [place] [address] 05/15/2024 Ailin Green Unsteady gait R26.81 ; Generalized weakness R53.1 ; Hearing loss H91.90 and Bilateral impacted cerumen H61.23 [facility] [address] [place] [place] [place] [address] 05/19/2024 Ailin Green [facility] [address] [place] [place] [place] [address] 04/01/2024 Ailin Green [facility] [address] [place] [place] [place] [address] 04/04/2024 Ailin Green [facility] [address] [place] [facility] [place] [address] 04/11/2024 Ailin Green Hyperglycemia due to diabetes mellitus E11.65 [facility] [address] [place] [facility] [place] [address] 04/18/2024 Ailin Green Elevated liver enzym es R74.8 and Acoustic neuroma D33.3 [facility] [address] [facility] [place] [place] [address] 04/21/2024 Aliin Green Iron deficiency anem ia D50.9 and Hyponatremia E87.1 [facility] [address] [facility] [place] [place] [address] 04/23/2024 Ailin Green [facility] [address] [place] [place] [address] 03/19/2024 Ailin Green [facility] [address] [place] [place] [place] [address] 03/21/2024 Ailin Green Hyperglycemia due to diabetes mellitus E11.65 [facility] [address] [place] [place] [place] [address] 03/24/2024 Ailin Green [facility] [address] [place] [place] [address] 03/25/2024 Ailin Green Enlarged lymph node R59.1 [facility] [address] [facility] [place] [address] 03/28/2024 Ailin Green Hyperglycemia due to diabetes mellitus E11.65 [facility] [address] [place] [address] 07/01/2024 Sonia Donnelly [facility] [address] [place] [address] 07/15/2024 Sonia Andrzej [facility] [address] [facility] [place] [address] 08/13/2024 Ailin Green Diabetes mellitus E1 1.9 ; Hearing loss H91.90 and Unsteady gait R26.81 [facility] [address] [facility] [place] [address] 05/01/2024 Ailin Green Nausea R11.0 ; Cerum en impaction H61.20 ; HTN (hypertension) I10 ; Claustrophobia F40.240 and Bilateral impacted cerumen H61.23 [facility] [address] [facility] [place] [address] 03/19/2024 Ailin Green HTN (hypertension) I 10 ; Hearing loss H91.90 ; Lump in armpit, right R22.31 ; Hyperglycemia due to diabetes mellitus E11.65 ; Weight loss R63.4 and Phlegm in throat R09.89 [facility] [address] [facility] [place] [address] 04/16/2024 Ailin Green Weight loss R63.4 ; Low BP I95.9 and Fatigue R53.83 [facility] [address] [place] [address] 07/22/20[facility] [address] [place] [address] 08/19/2024 Sonia Andrzej [facility] [address] [place] [address] 11/18/2024 Sonia Andrzej [facility] [address] [place] [address] 09/23/2024 Sonia Andrzej [facility] [address] [place] [address] 05/27/2024 Sonia Andrzej [facility] [address] [place] [address] 06/10/2024 Sonia Andrzej [facility] [address] [place] [address] 06/24/2024 Sonia Andrzej [facility] [address] [place] [address] 04/29/2024 Soniaethan Donnelly [facility] [address] [place] [address] 05/15/2024 Soniaethan Donnelly [facility] [address] [place] [address] 07/01/2024 Soniaethan Donnelly [facility] [address] [place] [address] 12/23/2024 Soniaethan Donnelly [facility] [address] [place] [address] 02/17/2025 Soniaethan Donnelly [facility] [address] [place] [address] 09/02/2024 Soniaethan Donnelly [facility] [address] [place] [address] 07/22/2024 Soniaethan Donnelly [facility] [address] [place] [address] 01/26/2025 Soniaethan Donnelly [facility] [address] [place] [address] 07/16/2024 Soniaethan Donnelly [facility] [address] [place] [address] 07/17/2024 Soniaethan Donnelly [facility] [address] [place] [address] 08/05/2024 Soniaethan Donnelly [facility] [address] [place] [address] 08/19/2024 Soniaethan Donnelly [facility] [address] [place] [address] 09/02/2024 Sonia Andrzej [facility] [address] [place] [address] 09/23/2024 Soniaethan Donnelly [facility] [address] [place] [address] 10/07/2024 Soniaethan Donnelly [facility] [address] [place] [address] 06/10/2024 Sonia Donnelly [facility] [address] [place] [address] 06/17/2024 Sonia Donnelly Assessments Encounter Date Diagnosis (ICD Code) Assessment Notes Treatment Notes Treatment Clinical Notes Section Notes 03/19/2024 HTN (hypertension) (ICD-10 - I10) decrease dose amlodipine to 5 mg 03/19/2024 Hearing loss (ICD-10 - H91.90) debrox left ear OTC fu ENT, has apt already 04/16/2024 Weight loss (ICD-10 - R63.4) loss of appetite yesterday ate 2 eggs, applesauce for lunch that was it 04/16/2024 Low BP (ICD-10 - I95.9) saw cardiology 03/28 last stopped amlodipine due to low BP, patient not sure if he stopped taking will call with med list 03/21/2024 Hyperglycemia due to diabetes mellitus (ICD-10 - E11.65) 03/25/2024 Enlarged lymph node (ICD-10 - R59.1) 03/28/2024 Hyperglycemia due to diabetes mellitus (ICD-10 - E11.65) 04/11/2024 Hyperglycemia due to diabetes mellitus (ICD-10 - E11.65) 04/18/2024 Elevated liver enzymes (ICD-10 - R74.8) 04/18/2024 Acoustic neuroma (ICD-10 - D33.3) 04/21/2024 Iron deficiency anemia (ICD-10 - D50.9) 04/21/2024 Hyponatremia (ICD-10 - E87.1) 04/24/2024 Hearing loss (ICD-10 - H91.90) 05/15/2024 Unsteady gait (ICD-10 - R26.81) 05/15/2024 Generalized weakness (ICD-10 - R53.1) 05/01/2024 Nausea (ICD-10 - R11.0) 05/01/2024 Cerumen impaction (ICD-10 - H61.20) ear wash done here 08/13/2024 Diabetes mellitus (ICD-10 - E11.9) BS at goal now taking Januvia and Lantus 14 units 05/30/2024 Hyperglycemia due to diabetes mellitus (ICD-10 - E11.65) 05/30/2024 Nausea (ICD-10 - R11.0) 06/06/2024 Hyperglycemia due to diabetes mellitus (ICD-10 - E11.65) 05/30/2024 Hyperglycemia due to diabetes mellitus (ICD-10 - E11.65) 05/30/2024 HTN (hypertension) (ICD-10 - I10) 08/13/2024 Hearing loss (ICD-10 - H91.90) states getting worse not wearing hearing aids has fu with ENT [place] upcoming 05/01/2024 HTN (hypertension) (ICD-10 - I10) BP still low decrease losartan, states stopped amlodipine monitor and report BP next week 05/15/2024 Hearing loss (ICD-10 - H91.90) 04/16/2024 Fatigue (ICD-10 - R53.83) labs defers PT at this time increase calorie intake 03/19/2024 Lump in armpit, right (ICD-10 - R22.31) US 03/19/2024 Hyperglycemia due to diabetes mellitus (ICD-10 - E11.65) add Lantus continue monitor BS, report next week pharmacy or here for help with insulin administration if needed, voices understanding 05/15/2024 Bilateral impacted cerumen (ICD-10 - H61.23) 05/01/2024 Claustrophobia (ICD-10 - F40.240) upcoming MRI, PET 08/13/2024 Unsteady gait (ICD-10 - R26.81) willing to start PT now, Dr Arenas ordered pt states 05/01/2024 Bilateral impacted cerumen (ICD-10 - H61.23) 03/19/2024 Weight loss (ICD-10 - R63.4) continue to monitor wt increase protein, small frequent meals fu one month related to high BS? 03/19/2024 Phlegm in throat (ICD-10 - R09.89) if not improving with medication, discuss with ENT, has upcoming apt month or so also some change in voice, hoarseness 04/16/2024 Other discussed ER for eval, patient resistant to idea encouraged to go to ER if feeling worse, sx worsen 05/01/2024 Other monitor BS and report next week Plan Of Treatment Pending Test Test Name Order Date CMP (COMPLETE METABOLIC PANEL) CMP (COMPLETE METABOLIC PANEL) CMP (COMPLETE METABOLIC PANEL) UA (URINALYSIS, COMPLETE) 08/30/2023 HEMOGLOBIN A1C (GLYCO) 08/30/2023 HEMOGLOBIN A1C (GLYCO) 03/19/2024 HEMOGLOBIN A1C (GLYCO) 04/16/2024 INSULIN, TOTAL 03/19/2024 INSULIN, TOTAL 08/30/2023 LIPID PANEL (CHOL/TRIG/HDL/LDL) 08/30/19 LIPID PANEL (CHOL/TRIG/HDL/LDL) 03/19/20 CBC WITH DIFF 03/19/2024 CBC WITH DIFF 08/30/2023 CBC WITH DIFF 04/16/2024 PSA, PROSTATE-SPECIFIC ANTIGEN URIC ACID 08/30/2023 URIC ACID 03/19/2024 CT Abdomen and Pelvis w/contrast * 04/18 CT Chest w/contrast * 03/25/2024 MRI Brain w/o contrast 04/18/2024 Cerumen Removal - performed 05/01/2024 URINE CULTURE 08/30/2023 PSA, TOTAL 03/19/2024 STOOL OCCULT BLOOD 03/19/2024 STOOL OCCULT BLOOD 08/30/2023 CBC AUTO DIFF 08/19/2024 CBC AUTO DIFF 10/07/2024 CBC AUTO DIFF 09/02/2024 CBC AUTO DIFF 09/23/2024 CBC AUTO DIFF 11/18/2024 CBC AUTO DIFF 12/23/2024 CBC AUTO DIFF 01/26/2025 CBC AUTO DIFF 02/17/2025 CRP 11/18/2024 FERRITIN 11/18/2024 HEPATITIS PANEL, ACUTE 04/18/2024 IRON AND TIBC 11/18/2024 LDH 02/17/2025 LDH 12/23/2024 LDH 01/26/2025 LDH 09/02/2024 LDH 08/19/2024 LDH 09/23/2024 LDH 11/18/2024 MAGNESIUM 10/07/2024 PROF 14(COMP METB) 11/18/2024 PROF 14(COMP METB) 10/07/2024 PROF 14(COMP METB) 09/02/2024 PROF 14(COMP METB) 09/23/2024 PROF 14(COMP METB) 01/26/2025 PROF 14(COMP METB) 02/17/2025 PROF 14(COMP METB) 12/23/2024 PROF 14(COMP METB) 08/19/2024 US BLADDER 08/30/2023 US EXT NON VASC LIMITED RT 03/19/2024 THYROID PANEL (T4/TSH/FREE T3) 4 THYROID PANEL (T4/TSH/FREE T3) THYROID PANEL (T4/TSH/FREE T3) 4 Erythrocyte Sedimentation Rate 5 Manual Differential 09/02/2024 Manual Differential 08/19/2024 Manual Differential 10/07/2024 PET skull to mid thigh 09/15/2024 PET skull to mid thigh 12/16/2024 CEA 04/18/2024 CA 19-9 04/18/2024 Next Appt Details Provider Name:Sonia Donnelly , 06/09/2025 11:00:00 AM, [address] [place], [address], Insurance Providers Payer Name Payer Address Payer Phone Subscriber Number Group Number Insured Name Patient Relationship to Insured Coverage Start Date Coverage End Date [facility] [employer] [address] [address] [place] [address] [phone] [id number] Nabeel Tran Self - patient is the insured 4 Medical (General) History Medical History History ICD Code Anxiety F41.9 COVID-19 U07.1 Diabetes mellitus E11.9 Hyperlipidemia E78.5 Hypertension I10 Mitral valve regurgitation I34.0 Obstructive sleep apnea G47.33 Pulmonary artery hypertension I27.21 HX Brain Tumor BPH with obstruction/ lower urinary trac t symptoms overactive bladder glucosuria Surgical History Surgery Date(Month/Year) Brain Tumor Removal 2004 Herniated Disc Repair- L4-L5 port placement 06/29 Hospitalization History Reason Date(Month/Year) Lumbar Repair Brain Tumor Removal
--- NOTE | 2025-02-20 14:10 | CA_ITS ---
Patient Name: NABEEL TRAN MR#: [id number] : 1955 Exam Date: 02/20/2025 Ordering Doctor: DR JEROD MANUEL M.D. ECHOCARDIOGRAM REPORT PROCEDURE: CA ECHO DOPPLER COMPLETE INDICATIONS: Aortic and Mitral regurgitation, Aortic stenosis COMPARISON: None. DESCRIPTION: COMPLETE ECHOCARDIOGRAM Real-time transthoracic echocardiography with 2D, M-mode, spectral and color flow Doppler performed. QUALITY: Technical quality was good. LEFT VENTRICLE: Normal chamber size. Mild concentric left ventricular hypertrophy. Global left ventricular systolic function is normal without segmental motion abnormalities. Calculated left ventricular ejection fraction is 65%. LV EF: 65% DIASTOLIC: Normal diastolic function. ATRIAL SEPTUM: Appears intact LEFT ATRIUM: Moderate dilatation. RIGHT ATRIUM: Mild dilatation. RIGHT VENTRICLE: Normal chamber size. Normal right ventricular systolic function. TRICUSPID VALVE:Normal mobility and thickness. No stenosis with mild regurgitation. No evidence of pulmonary hypertension. RVSP 32mmHg. MITRAL VALVE: Mildly thickened with normal mobility with possible prolapse. No evidence of mitral valve stenosis. There is no mitral annular calcification. Mild to moderate eccentric mitral regurgitation. AORTIC VALVE: Normal trileaflet appearance. Mildly calcified aortic valve. Mildly diminished mobility. Doppler velocity suggest mild aortic valve stenosis. DVI 0.4, REBEKAH 1.6cm2, Peak velocity 2.3m/s, Peak and mean gradient 21/10mmHg. mild aortic regurgitation. AORTIC ROOT: Normal diameter and appearance. PULMONIC VALVE:Normal thickness and mobility. No stenosis. No regurgitation. PERICARDIUM: No evidence of pericardial effusion. IVC: Not well visualized. PLEURA: CONCLUSION: Mild concentric left ventricle hypertrophy Normal left ventricular systolic function without wall motion abnormalities, ejection fraction 65% Normal left ventricular diastolic function Normal right ventricle size and systolic function Normal right sided pressures Thickened mitral valve with possible prolapse Mild to moderate eccentric mitral regurgitation Mild aortic stenosis Mild aortic regurgitation Mild tricuspid regurgitation Adult Echocardiography Procedure Report Left Ventricle LVEDD (3.7 - 5.6 cm): 5.11 cm LVESD (2.2 - 4.0 cm): 3.43 cm LVIVS thickness (0.6 - 1.2 cm): 1.24 cm LVPW thickness (0.5 - 1.0 cm): 1.29 cm e': 0.13 m/s E - e': 7.69 LVOT Max Gradient: 3.42 mm[Hg], 2.53 mm[Hg] LVOT Area (cm2): 0.86 m/s Peak Velocity (LVOT): 0.92 m/s, 0.80 m/s Mean Velocity (LVOT): 0.55 m/s LVOT Diameter 2.40 cm Left Ventricular Ejection Fraction: 64.91 % Left Atrium LA Volume Index (2D A2C): 53.57 ml/m2 Left Atrium Systolic Dimension: 4.66 cm Mitral Valve MV E to A Ratio: 1.33 Mitral Valve A-Wave Peak Velocity: 0.77 m/s Mitral Valve E-Wave Peak Velocity: 1.03 m/s Right Ventricle RV Internal Diastolic Dimension: 3.62 cm Aorta AO Root Diam: 3.67 cm Ascending Ao Diam: 3.22 cm Aortic Valve AoV Area (Peak Walt): 1.79 cm2, 1.81 cm2, 1.64 cm2 AoV Area (VTI): 1.84 cm2, 1.76 cm2, 1.81 cm2 Peak Velocity(Antegrade Flow): 2.31 m/s, 2.20 m/s, 2.00 m/s Peak Gradient(Antegrade Flow): 21.35 mm[Hg], 19.38 mm[Hg], 16.04 mm[Hg] Mean Velocity(Antegrade Flow): 1.50 m/s, 1.48 m/s, 1.12 m/s Mean Gradient(Antegrade Flow): 10.42 mm[Hg], 10.11 mm[Hg], 6.51 mm[Hg] Velocity Time Integral: 52.44 cm, 47.90 cm, 45.64 cm Tricuspid Valve Peak Velocity (Regurgitant Flow): 2.46 m/s, 2.66 m/s, 2.71 m/s Pulmonic Valve Mean Gradient: 2.01 mm[Hg], 1.38 mm[Hg] Mean Velocity: 0.65 m/s, 0.53 m/s Peak Velocity: 1.02 m/s Peak Gradient: 5.02 mm[Hg], 3.32 mm[Hg] Right Atrium Right Atrium Systolic volume 34.31 ml, 34.31 ml Dictated by: Albina Chris MD on 02/22/2025 at 17:52 Approved by: Albina Chris MD on 02/22/2025 at 18:04
== END 2025-02-20 13:26 | disposition home or self-care (01) ==
LOC: CARD 13:25
PROVIDERS: PCP Nurse Practitioner Family; Visit Provider Internal Medicine Interventional Cardiology
DX: I34.0 Nonrheumatic mitral (valve) insufficiency (principal); I35.0 Nonrheumatic aortic (valve) stenosis; I35.1 Nonrheumatic aortic (valve) insufficiency
CPT/HCPCS: 93306

== ENCOUNTER 2025-03-23 08:24 | Outpatient (RCR) | payer MEDICARE, SELFPAY ==
[2025-03-23] MEDS: HEPARIN SODIUM (PORCINE) PF LOCK FLUSH 500 UNIT/5 ML SYRINGE IV (11:53)
== END 2025-04-05 23:59 | disposition home or self-care (01) ==
LOC: HEMC 08:24
PROVIDERS: PCP Nurse Practitioner Family; Visit Provider Internal Medicine Hematology & Oncology
DX: E78.2 Mixed hyperlipidemia (principal); C85.11 Unspecified B-cell lymphoma, lymph nodes of head, face, and neck; R74.01 Elevation of levels of liver transaminase levels; D50.9 Iron deficiency anemia, unspecified; D64.9 Anemia, unspecified; C81.18 Nodular sclerosis Hodgkin lymphoma, lymph nodes of multiple sites; R11.2 Nausea with vomiting, unspecified; D70.1 Agranulocytosis secondary to cancer chemotherapy; Z79.899 Other long term (current) drug therapy
CPT/HCPCS: 36415; 51702; 80061; J1642

== ENCOUNTER 2025-03-23 11:19 | Outpatient (OUT) | payer MEDICARE, SELFPAY ==
--- OUTSIDE RECORDS SUMMARY | 2025-01-26 05:00 | XMS_ITS ---
Author Organization The [facility] in [place] Address [address] [place] [address] Care Team Providers Care Distribution Specialist Name Role Phone Ailin España Primary Care Provider [phone] Sonia Donnelly Unavailable [phone] REASON FOR VISIT CL.5 Encounters Encounter Location Date Provider Diagnosis [facility] [address] [place] [phone] 01/26/2025 Sonia Donnelly Plan Of Treatment Next Appt Details Provider Name:Sonia Donnelly , 06/09/2025 11:00:00 AM, [address] [place] [address], [phone], Progress Notes * Hoang BONILLA WDOB: [birth year] (69 yo M)Acc No.[id number]:01/26/2025 UNLOCKED PROGRESS NOTE Progress Note Patient: Hoang IVORY Provider: Oneyda Donnelly M.D. :1955 A ge:69 Y S ex:Male Date:01/26/2025 Address:[address], [id number] Pcp:Ailin España Subjective: * Chief Complaints: * 1 . CL.5. * Medical History: Objective: * Vitals: Assessment: Plan: * Treatment: * * Electronic signature of Merly Donnelly MD, [id number] on 03/23/2025 at 11:21 AM EDT Sign off status: Pending Visit Status: P EN (Pending) * Provider: Oneyda Donnelly M.D. Date: 0 01/26/2025 Generated for Edwin perez/Asim/Griselda on: 0 03/23/2025 11:21 AM EDT
--- OUTSIDE RECORDS SUMMARY | 2025-02-17 05:30 | XMS_ITS ---
Author Organization The [facility] in [place] Address [address] [place] [address] Care Team Providers Care Clinical Support Manager Name Role Phone Ailin España Primary Care Provider Sonia Donnelly Unavailable [phone] REASON FOR VISIT MD Encounters Encounter Location Date Provider Diagnosis [facility] [address] [place] [phone] 02/17/2025 Sonia Donnelly Plan Of Treatment Next Appt Details Provider Name:Sonia Donnelly , 06/09/2025 11:00:00 AM, [address] [place], [address], Progress Notes * Yoni BONILLAen WDOB: [birth year] (69 yo M)Acc No.[id number]:02/17/2025 UNLOCKED PROGRESS NOTE Progress Notes Patient: Hoang IVORY Provider: Oneyda Donnelly M.D. :1955 A ge:69 Y S ex:Male Date:02/17/2025 Address:[address] [place], [id number] Pcp:Ailin España Subjective: * Chief Complaints: * 1 . MD. * Medical History: Objective: * Vitals: Assessment: Plan: * Treatment: * * Electronic signature of Merly Donnelly MD, [id number] on 03/23/2025 at 11:22 AM EDT Sign off status: Pending Visit Status: P EN (Pending) * Provider: Oneyda Donnelly M.D. Date: 0 02/17/2025 Generated for Edwin perez/Asim/Griselda on: 0 03/23/2025 11:22 AM EDT
--- OUTSIDE RECORDS SUMMARY | 2025-02-27 07:10 | XMS_ITS ---
Author Organization [facility] Address [address] [place] [address] Care Team Providers Care Reject Opener And Filler Name Role Phone Ailin España Primary Care Provider REASON FOR VISIT due for 6mo appointment Encounters Encounter Location Date Provider Diagnosis [facility] Medicine [address] [place] [address] 02/27/2025 Ailin España Plan Of Treatment Next Appt Details Provider Name:Sonia Donnelly , 06/09/2025 11:00:00 AM, [address] [place], [address], Progress Notes * Hoang BONILLA WDOB: [birth year] (69 yo M)Acc No.[id number]:02/27/2025 Patient: Jhonatan PARRISH Hoang Young :1955 A ge:69 Y S ex:Male Address:[address] [facility] [address] * true * Date: Generated for Printi ng/Faxing/eTransmitting on: 0 03/23/2025 10:42 AM EDT
--- OUTSIDE RECORDS SUMMARY | 2025-03-23 11:21 | XMS_ITS | Encounter Summary ---
Author Organization [employer] Address [id number] [address] [place] [address] Care Team Providers Care Supervisor Quality Control Name Role Phone Unavailable Primary Care Provider Unavailabl e Encounter Details Date Type Department Care Team (Late st Contact Info) Description 06/23/2024 Telephone [facility] [address] [place] [address] No Pcp, [place] [address] Social History Tobacco Use Types Packs/Day Years Used Date Smoking Tobacco: Never Assessed Sex and Gender Information Value Date Recorded Sex Assigned at Male 05/15/2024 2:41 PM EDT Legal Sex Male 2:40 PM EDT Gender Identity Male 05/15/2024 2:41 PM EDT Sexual Orientation Straight 05/15/2024 2: 41 PM EDT documented as of this encounter Miscellaneous Notes * Telephone Encounter - Shakila Devries - 06/23/2024 1:55 PM EST Patient called 06/23 to schedule an appointment for hearing loss and impacted cerumen of the left ear. She stated he had a hearing test completed at [facility] on 05/26. Is this an acceptable audio? Please advise * Telephone Encounter - Dee Pineda CMA - 06/23/2024 1:55 PM EST Yes, hearing tests are good for 6 months please get patient in with a provider before the 6 months are up. Also please ask patient to bring hearing test results with them to appointment thanks documented in this encounter Plan of Treatment Not on file documented as of this encounter Visit Diagnoses Not on filedocumented in this encounter
--- OUTSIDE RECORDS SUMMARY | 2025-03-23 11:21 | XMS_ITS | Encounter Summary ---
Author Organization [facility] [employer] Address [id number] [address] [place] [address] Care Team Providers Care Visual Lead Name Role Phone Unavailable Primary Care Provider Unavailabl e Encounter Details Date Type Department Care Team (Late st Contact Info) Description 08/13/2024 Orders Only [facility] Center - ENT [address] [place] [address] External, Scanning Provider Social History Tobacco Use Types Packs/Day Years Used Date Smoking Tobacco: Never Smokeless Tobacco: Never Alcohol Use Standard Drinks/Week Comments Never 0 (1 standard drink = 0.6 oz pur e alcohol) Sex and Gender Information Value Date Recorded Sex Assigned at Male 05/15/2024 2:41 PM EDT Legal Sex Male 2:40 PM EDT Gender Identity Male 05/15/2024 2:41 PM EDT Sexual Orientation Straight 05/15/2024 2: 41 PM EDT documented as of this encounter Plan of Treatment Not on file documented as of this encounter Procedures Procedure Name Priority Date/Time Associated Diagnosis Comments MR CERVICAL SPINE W WO CONT Routine 08/13/2024 9:51 AM EST documented in this encounter Results * MR cervical spine with and without contrast (08/13/2024 9:51 AM EST) Anatomical Region Laterality Modality MSK, Neuro, Spine, C-spine, Spine Covera N/A Magnetic Resonance us Scanning Provider External IMG MRI ORDERABLES Fi nal Result documented in this encounter Visit Diagnoses Not on filedocumented in this encounter
--- OUTSIDE RECORDS SUMMARY | 2025-03-23 11:23 | XMS_ITS | Clinical Summary ---
Author Organization [facility] Address [address] [place] [address] Care Team Providers Care Supervisor Keymodule Assembly Name Role Phone Margo Beckman EDU Unavailable [phone] Ailin España CNP Primary Care Provider [phone] Allergies Active Allergy Reactions Criticality Noted Date Comments No Known Drug Allergies 07/24/2005 no latex allergy [Other] 07/24/2005 Medications atorvastatin (LIPITOR) 10 mg tablet Take 10 mg by mouth. 4 03/28/20 25 Active liothyronine (CYTOMEL) 5 mcg tablet Take 10 mcg by mouth. Active dilTIAZem CD (CARDIZEM CD, CARTIA XT) 240 mg 24 hr capsule Take 240 mg by mouth. 4 Active apixaban (ELIQUIS) 5 mg tab(s) Take 5 mg by mouth. 4 Active insulin glargine (LANTUS) 100 unit/mL injection Inject subcutaneous ly. Active metoprolol tartrate, short acting, (LOPRESSOR) 25 mg tablet Take 50 mg by mouth. 4 Active ondansetron orally disintegrating (ZOFRAN ODT) 4 mg disintegrating tablet Take 4 mg by mouth at bedtime as needed. [address] (PROTONIX) 40 mg tablet 40 mg. 4 Active Family History Medical History Relation Comments Alcohol/Drug Father Relation Status Comments Father Social History Tobacco Use Types Packs/Day Years Used Date Smoking Tobacco: Never Passive Smoke Exposure: Never Smokeless Tobacco: Never Tobacco Cessation:Counseling Given: Not Answered Alcohol Use Standard Drinks/Week Comments Not Currently 0 (1 standard drink = 0.6 oz pure alcohol) occasionally 2-3 beers every 2 weeks varies Area Deprivation Index Answer Date Boris rded National Score (1-100), lower number is lower ri sk 71 09/25/2024 State Score (1-10), lower number is lower risk 5 09/25/2024 Data from: https://www.neighborhoodatlas.medicine.[facility]/. Last address used for calculation [address] 09/25/2024 Sex and Gender Information Value Date Recorded Sex Assigned at Not on file Legal Sex Male 7:33 AM EST Gender Identity Not on file Sexual Orientation Not on file Last Filed Vital Signs Vital Sign Reading Time Taken Comments Blood Pressure 113/65 12/18/2024 10:31 AM EDT Pulse 59 12/18/2024 10:31 AM EDT Temperature 36.3 C (97.3 F) 11/13/2024 10:00 AM EDT Respiratory Rate 18 12/18/2024 10:31 AM EDT Oxygen Saturation 98% 12/18/2024 10:31 AM EDT Inhaled Oxygen Concentration - - Weight 84.2 kg (185 lb 10 oz) 12/18/2024 10:31 A M EDT Height 189.2 cm (6' 2.5 ) 09/25/2024 9:12 AM EST Body Mass Index 23.51 09/25/2024 9:12 AM EST Plan of Treatment Upcoming Encounters Date Type Department Care Team (Late st Contact Info) Description 04/20/2025 10:00 AM EDT Office Visit Radiation Oncology [address] [place] [address] Rg Browne MD [address] [place] [address] 4 month follow up Health Maintenance Due Date Last Done Comments Anxiety Screening 1974 Depression Screening 1974 Hepatitis C Screening 1974 DTaP,Tdap,Td Vaccine (1 - Tdap) [address] Colonography 2001 Colonoscopy 2001 Fecal Occult Blood 2001 Prostate Cancer Screening Discussion 2001 Sigmoidoscopy 2001 Shingrix Vaccine (1 of 2) 2006 Diabetes Screening 10/02/2008 10/02/2005, 0 10/01/2005, 09/30/2005, Additional history exists RSV Vaccine (1 - Risk 60-74 years 1-dose series) 2016 Pneumococcal Vaccine: 50+ (2 of 2 - PCV) 07/19/2018 07/19/2017 Advance Directive Discussion 08/06/2024 Medicare Advantage Annual We llness Visit 08/06/2024 Cologuard (FIT-DNA) 09/05/2024 09/05/2021 Colorectal Cancer Screening 09/05/2024 Influenza Vaccine (#1) 2025 Procedures Procedure Name Priority Date/Time Associated Diagnosis Comments BASIC METABOLIC PANEL 10/02/2005 7:33 AM EST from Last 3 Months or Most Recently Relevant to Health Maintenance Results * (ABNORMAL) BASIC METABOLIC PNL (10/02/2005 7:33 AM EST) Glucose 118(A) 65 - 100 mg/dL [facility] BUN 18 10 - 25 mg/dL [facility] Creatinine 0.9 0.7 - 1.4 mg/dL [facility] Sodium 138 135 - 146 mmol/L [facility] Potassium 4.4 3.5 - 5.0 mmol/L [facility] Chloride 97(A) 98 - 110 mmol/L [facility] CO2 30 23 - 32 mmol/L [facility] Anion Gap 11 0 - 15 mmol/L [facility] Calcium 9.7 8.5 - 10.5 mg/dL [facility] 10/02/2005 7:33 AM EST us Carlos Alberto Woodson (Hist) [facility] Final Res ult [facility] [address] [place] [address] from Last 3 Months or Most Recently Relevant to Health Maintenance Insurance [facility] MEDICARE ADVANTAGE PPO Care Teams Supervisor Keymodule Assembly Relationship Specialty Start Date End Date Ailin España CNP [address] [place] [address] PCP - General Internal Medicine 12/18/[address] [place] [address] [place] [address] Registered Dietitian Nutrition 09/26/24
--- OUTSIDE RECORDS SUMMARY | 2025-03-23 11:23 | XMS_ITS | Encounter Summary ---
Author Organization [facility] Address [facility] [place] [address] Care Team Providers Care Clothes Designer Name Role Phone Margo Beckman EDU Unavailable [phone] Ailin España CNP Primary Care Provider + Source Comments In the event this information is protected by the Federal Confidentiality of Alcohol and Drug AbusePatient Records regulations: The Federal rules restrict any use of the information to criminally investigate or prosecute any alcohol or drug abuse patient.[facility] Encounter Details Date Type Department Care Team (Late st Contact Info) Description 05/05/2024 Lab Requisition [facility] [address] [place] [address] Kin Lauren MD [address] [place] [address] Person encountering health services to consult on behalf of another person Social History Tobacco Use Types Packs/Day Years Used Date Smoking Tobacco: Never Alcohol Use Standard Drinks/Week Comments Yes 0 (1 standard drink = 0.6 oz pure alcohol) occasionally 2-3 beers every 2 weeks varies Sex and Gender Information Value Date Recorded Sex Assigned at Not on file Legal Sex Male 7:33 AM EST Gender Identity Not on file Sexual Orientation Not on file documented as of this encounter Plan of Treatment Upcoming Encounters Date Type Department Care Team (Late st Contact Info) Description 04/20/2025 10:00 AM EDT Office Visit Radiation Oncology [address] [place] [address] Rg Browne MD [address] [place] [address] 4 month follow up documented as of this encounter Procedures Procedure Name Priority Date/Time Associated Diagnosis Comments SURGICAL PATHOLOGY REFERENCE LAB CONSULT Routine 05/05/2024 4:52 PM EDT Person encountering health services to consult on behalf of another person documented in this encounter Results * SURGICAL PATHOLOGY REFERENCE LAB CONSULT (05/05/2024 4:52 PM EDT) Case Report Surgical Pathology Report Case: [id number] Authorizing Provider: Kin Lauren MD Collected: 05/05/2024 04:52 PM Ordering Location: [facility] Received: 05/05/2024 04:52 PM [facility] Pathologist: Lory Vick MD, PhD Specimen: Slide(s), 18 SLIDES [id number] 05/14/2024 4:02 PM EDT [facility] FINAL DIAGNOSIS Outside slides ([id number]; 04/23/2024) from [facility], [place], [place]. A. Lymph node, right axillary, excisional biopsy: - Predominantly reactive lymphoid proliferation with a single focus of atypical FX48-[id number] lymphocytes. - See comment. ABO 05/13/2024 05/14/2024 4:02 PM EDT [facility] at 1643 EDT Diagnosis Comment Per the provided report, flow cytometric analysis detected no significant immunophenotypic abnormalities on the lymphocytes, with a CD4:CD8 ratio 4.4. Overall, the morphologic and immunophenotypic findings described below are consistent with an atypical lymphoid proliferation predominantly composed of reactive changes with a single focus of large HP55-wjsuopnz lymphocytes. Morphologically and immunophenotypicall y, these large atypical cells are compatible with Hodgkin and Neto-Jude cells/variants. However, this tiny, focal involvement is unusual. If the patient has additional lymphadenopathy, biopsy of another site is recommended to definitely diagnose involvement by a Hodgkin lymphoma. Correlation with imaging studies is strongly recommended. This case was also reviewed by Dr. Mare Pierce ([facility] hematopathology section), who agrees with the above interpretation and final diagnosis. Thank you for sending this case in consultation. Please contact the Hematopathology Consult Service at [phone] for any questions or if additional follow-up information becomes available. Laboratory Developed Test (LDT) Disclaimer: Performance characteristics of immunohistochemical , immunofluorescent and chromogenic in-situ hybridization tests have been determined by the performing laboratory within [facility] Pathology and Laboratory Medicine Department ([facility], [facility], [facility], [facility], [facility], [facility], or [facility]) in a manner consistent with CLIA requirements. One or more of these tests have not been cleared or approved by the FDA. [facility] is regulated under CLIA as qualified to perform high-complexity testing. These tests are used for clinical purposes. They should not be regarded as investigational or for research. Positive and negative controls stain appropriately. 05/14/2024 4:02 PM EDT [facility] Microscopic Description H&E-stained sections demonstrate fibroadipose tissue and probable fragmented [...] in situ hybridization stains were performed at [facility] on the requested block A2. The [...] the focal area with atypical large lymphocytes. 05/14/2024 4:02 PM EDT [facility] Clinical History CONSULT REQUESTED 05/14/2024 4:02 PM T [facility] Performing Lab Diagnostic interpretation performed at: [facility], [address] [place] [address], [address] [id number] [employer] Research Associate: Ramiro Degroot MD 05/14/2024 4:02 PM EDT [facility] Addendum Repeat MUM1 immunostain does in fact stain the focal large atypical cells. No change in final diagnosis. ABO 05/14/2024 05/14/2024 4:02 PM EDT [facility] Addendum electronically signed by Lory Vick MD, PhD on 05/14/2024 at 1602 EDT Blocks or Slides MICROSCOPE SLIDE / Unknown 05/05/2024 4:52 PM EDT 05/05/2024 4:52 PM EDT [facility] G[facility] Lauren MD SURGICAL PATHOLOGY Edited R esult - Final [facility] [address] [facility] [address] [place] [address], documented in this encounter Visit Diagnoses Diagnosis Person encountering health services to consult on behalf of another person Other person consulting on behalf of another person documented in this encounter Care Teams Clothes Designer Relationship Specialty Start Date End Date Ailin España CNP [address] [place] [address] PCP - General Internal Medicine 12/18/[address] [place] [address] [place] [address] Registered Dietitian Nutrition 09/26/24 documented as of this encounter
--- OUTSIDE RECORDS SUMMARY | 2025-03-23 11:23 | XMS_ITS | Encounter Summary ---
Author Organization [employer] Address [id number] [address] [place] [address] Care Team Providers Care Polls Or Surveys Interviewer Name Role Phone Unavailable Primary Care Provider Unavailabl e Reason for Referral * Specialty Diagnoses / Procedures Referred By Celine horton Referred To Contact Vascular Surgery [facility] [address] [place] [address] Phone: tel: fax: Referral ID Status Reason Start Date Expiration Date Visits Re quested Visits Authorized Encounter Details Date Type Department Care Team (Late st Contact Info) Description 05/22/2024 Orders Only [facility] [address] [place] [address] Jah Damian MD [address] [place] [address] Social History Tobacco Use Types Packs/Day Years [...] Procedure Name Priority Date/Time Associated Diagnosis Comments AMB REFERRAL TO VASCULAR SURGERY Routine 05/21/2024 3:22 PM EDT documented in this encounter Results * Ambulatory referral to Vascular Surgery (05/21/2024 3:22 PM EDT) us Jah Damian MD OUTPATIENT REFERRAL ORDERABLES Final Result Performing Organization Address City/State/[facility] Co de Phone Number MANUALLY TRANSCRIBED RESULTS documented in this encounter Visit Diagnoses Not on filedocumented in this encounter
--- OUTSIDE RECORDS SUMMARY | 2025-03-23 11:23 | XMS_ITS | Patient Health Record ---
Author Organization [facility] in [place] Address [address] [place] [address] Care Team Providers Care Paper Folder Name Role Phone Ailin Green Primary Care Provider Andrzej Sonia Unavailable [phone] Allergies No Known Allergies Results Component Value Reference Range Notes US extremity nonvascular LT Reviewed date:03/25/2024 02:21:33 PM Interpretation: Performing Lab: Notes/Report: Source Facility: [place] [address] Ultrasound Report Signed Patient: NABEEL TRAN MR#: [id number] : 1955 Acct:[id number] Age/Sex: 68 / M ADM Date: 03/25/24 Loc: US Attending Dr: AILIN GREEN Ordering Physician: AILIN GREEN Date of Service: 03/25/24 Procedure(s): US extremity nonvascular RT Accession Number(s): [id number] cc: AILIN GREEN [place] [id number] Patient Name: NABEEL TRAN MRN: TBH:[id number] date: 1955 Sex: M Assigned Patient Location: US Current Patient Location: US Accession/Order Number: [id number] Exam Date: 03/25/2024 09:30 Report Date: 03/25/2024 [...] for further evaluation. Electronically authenticated by: Barrett ROSENEBRG Date: 03/25/2024 12:13 Dictated By: Barrett Rosenbreg M.D. Signed By: 03/25/24 1215 DD/ 1213 TD/TT: Bench Manager: [place] [address] Ultrasound Report Signed Patient: RUDDY TRAN MR#: [id number] : 1955 Acct:[id number] Age/Sex: 68 / M ADM Date: 03/25/24 Loc: US Attending Dr: AILIN GREEN Ordering Physician: IALIN GREEN Date of Service: 03/25/24 Procedure(s): US extremity nonvascular RT Accession Number(s): [id number] cc: AILIN GREEN [address] [address] Patient Name: NABEEL TRAN MRN: TBH:[id number] date: 1955 Sex: M Assigned Patient Location: US Current Patient Loca tion: US Accession/Order Numb er: [id number] Exam Date: 03/25/2024 09:30 Report Date: 03/25/2024 [...] Dictated By: Barrett Rosenberg M.D. Signed By: 03/25/24 1215 DD/ 1213 TD/TT: Bench Manager: GLYCOHEMOGLOBIN A1C Reviewed date:04/18/2024 01:44:59 PM Interpretation: Performing Lab: Notes/Report: [facility] , Glycohemoglobin A1C 11.2 4.5-6.2 % ADA RECOMMENDED LIMIT 4.0 - 6.0 ADA THERAPEUTIC TARGET < 7.0 ACTION SUGGESTED > 7.0 Estimated Average Glucose 275 Performing Lab: see note - [facility] LB Manual Differential Reviewed date:04/18/2024 01:44:59 PM Interpretation: Performing Lab: Notes/Report: [facility] , Segmented Neutrophils % Manual 73.0 [...] 0 3/uL Performing Lab: see note - [facility] LB CT head/brain wo con Reviewed date:04/21/2024 02:58:40 PM Interpretation: Performing Lab: Notes/Report: Source Facility: [place] [address] CT Scan Report Signed Patient: NABEEL TRAN MR#: [id number] : 1955 Acct:[id number] Age/Sex: 68 / M ADM Date: 04/21/24 Loc: ER Attending Dr: Ordering Physician: Lauro Altamirano Date of Service: 04/21/24 Procedure(s): CT head/brain wo con Accession Number(s): [id number] cc: AILIN GREEN [place] [address] Patient Name: NABEEL TRAN MRN: [id number] date: 1955 Sex: M Assigned Patient Location: ER Current Patient Location: ER Accession/Order Number: [id number] Exam Date: 04/21/2024 13:54 Report Date: 04/21/2024 [...] Signed By: 04/21/24 1425 DD/ 1423 TD/TT: Bench Manager: [address] [address] [address] Scan Report Signed Patient: RUDDY TRAN MR#: [id number] : 1955 Acct:[id number] Age/Sex: 68 / M ADM Date: 04/21/24 Loc: ER Attending Dr: Ordering Physician: Lauro Altamirano Date of Service: 04/21/24 Procedure(s): CT head/brain wo con Accession Number(s): [id number] cc: ALIIN GREEN [address] [address] Patient Name: NABEEL TRAN MRN: TBH:[id number] date: 1955 Sex: M Assigned Patient Location: ER Current Patient Loca tion: ER Accession/Order Numb er: [id number] Exam Date: 04/21/2024 13:54 Report Date: 04/21/2024 [...] Colby M.D. Signed By: 04/21/24 1425 DD/ 22 TD/TT: Bench Manager: AMMONIA Reviewed date:04/21/2024 09:21:08 PM Interpretation: Performing Lab: Notes/Report: [facility] , Ammonia <10 11-32 umol/L Performing Lab: see note ML - [facility] LB AMYLASE Reviewed date:04/21/2024 09:21:08 PM Interpretation: Performing Lab: Notes/Report: [facility] , Amylase 48 25-115 U/L Performing Lab: see note ML - [facility] LB BNP Reviewed date:04/21/2024 09:21:08 PM Interpretation: Performing Lab: Notes/Report: [facility] , NT Pro B Type Natriuretic Pept 441.0 <=900.0 pg/mL Performing Lab: see note ML - [facility] LB LIPASE Reviewed date:04/21/2024 09:21:08 PM Interpretation: Performing Lab: Notes/Report: [facility] , Lipase 58.0 16.0-77.0 U/L Performing Lab: see note ML - [facility] LB MAGNESIUM Reviewed date:04/21/2024 09:21:08 PM Interpretation: Performing Lab: Notes/Report: [facility] , Magnesium 1.8 1.8-2.4 mg/dL Performing Lab: see note ML - [facility] LB CT abdomen pelvis w con Reviewed date:04/21/2024 09:21:08 PM Interpretation: Performing Lab: Notes/Report: Source Facility: [facility] [place] [address] [place] [address] CT Scan Report Signed Patient: NABEEL TRAN MR#: [id number] : 1955 Acct:[id number] Age/Sex: 68 / M ADM Date: 04/21/24 Loc: MS 231-[address]: Jason Damian M.D. Ordering Physician: Jason Damian M.D. Date of Service: 04/21/24 Procedure(s): CT abdomen pelvis w con Accession Number(s): [id number] cc: AILIN GREEN [facility] [address] [place] [address] Patient Name: NABEEL TRAN MRN: [facility]:[id number] date: 1955 Sex: M Assigned Patient Location: MS Current Patient Location: MS Accession/Order Number: [id number] Exam Date: 04/21/2024 17:48 Report Date: 04/21/2024 19:22 At the request of: JASON DAMIAN Procedure: CT abdomen pelvis w con [...] M.D. Signed By: 04/21/241923 DD/ 21 TD/TT: Bench Manager: [address] [address] [address] Scan Report Signed Patient: RUDDY TRAN MR#: [id number] : 1955 Acct:[id number] Age/Sex: 68 / M ADM Date: 04/21/24 Loc: MS 231-[address]: Chioma Damian M.D. Ordering Physician: Jason Damian M.D. Date of Service: 04/21/24 Procedure(s): CT abd omen pelvis w con Accession Number(s): [id number] cc: AILIN GREEN [place] [address] Patient Name: NABEEL TRAN MRN: [id number] date: 1955 Sex: M Assigned Patient Location: MS Current Patient Loca tion: MS Accession/Order Numb er: [id number] Exam Date: 04/21/2024 17:48 Report Date: 04/21/2024 19:22 At the request of: JASON DAMIAN Procedure: CT abdome n pelvis w [...] PIOTR BRADY Date: 04/21/2024 19:22 Dictated By: Barrett Brady M.D. Signed By: 04/21/241923 DD/ 21 TD/TT: Bench Manager: NEEMA RANDOM W or MICROSCOPIC Reviewed date:04/22/2024 03:30:52 PM Interpretation: Performing Lab: Notes/Report: [facility] , Color Urine YELLOW YELLOW Clarity Urine CLEAR CLEAR Specific [place] Urine 1.020 1.005-1.025 pH Urine 6.0 5.0-9.0 [...] ORDERED Performing Lab: see note ML - [facility] LB Osmolality, Urine Reviewed date:04/23/2024 10:18:32 AM Interpretation: Performing Lab: Notes/Report: [facility] , Osmolality, Urine 483 . mOsmol/kg 24 hr : 300 - 900 Random: 50 - 1400 After 12hr fluid restriction: >850 Performed at: - [facility] [address] [id number] Water Control Station Engineer: Ash Wilcox MD, Phone: [phone] Performing Lab: see note - [facility] LB CBC AUTO DIFF Reviewed date:06/04/2024 01:55:35 PM Interpretation: Performing Lab: Notes/Report: [facility] , White Blood Count 10.8 4.0-11.0 [...] Performing Lab: see note ML - [facility] LB MAGNESIUM Reviewed date:06/04/2024 12:14:13 PM Interpretation: Performing Lab: Notes/Report: [facility] , Magnesium 1.9 1.8-2.4 mg/dL Performing Lab: see note ML - [facility] LB PROF CHEM 8 (BAS METB) Reviewed date:06/04/2024 12:13:38 PM Interpretation: Performing Lab: Notes/Report: [facility] , Sodium 136 136-145 mmol/L Potassium [...] mg/dL Performing Lab: see note ML - [facility] Troponin I High Sensitivity Reviewed date:06/04/2024 01:55:35 PM Interpretation: Performing Lab: Notes/Report: [facility] , Troponin I High Sensitivity 10.3 4.0-76.1 pg/mL CUT-OFF POINTS HAVE BEEN ESTABLISHED BASED ON THE FOURTH UNIVERSAL DEFINITION OF MYOCARDIAL INFARCTION. THE UPPER REFERENCE LIMIT (URL) OF TROPONIN, DEFINED THE 99TH PERCENTILE OF cTnI DISTRIBUTION IN A REFERENCE POPULATION, HAS BEEN CONFIRMED THE DECISION THRESHOLD FOR [place] DIAGNOSIS. 99TH PERCENTILE = 76.2 PG/ML NOTE: HIGH-SENSITIVITY TROPONIN ASSAY IS NOT INTENDED TO BE USED IN ISOLATION BUT SHOULD BE INTERPRETED IN CONJUNCTION WITH OTHER DIAGNOSTIC AND CLINICAL INFORMATION. Performing Lab: see note ML - [facility] CA echo limited Reviewed date:06/05/2024 08:09:31 AM Interpretation: Performing Lab: Notes/Report: Source Facility: [facility] [place] [address] [place] [address] Cardiology Report Signed Patient: NABEEL TRAN MR#: [id number] : 1955 Acct:[id number] Age/Sex: 68 / M ADM Date: 06/04/24 Loc: ICU 271-[address]: Florina Melissa D.O. Ordering Physician: Florina Melissa D.O. Date of Service: 06/04/24 Procedure(s): CA echo limited Accession Number(s): [id number] cc: AILIN GREEN ; Flroina Melissa D.O. Patient Name: NABEEL TRAN MR#: [id number] : 1955 Exam Date: 06/04/2024 Ordering Doctor: [...] Area (Peak Walt): AoV Area (VTI): Deceleration Fallon: Pressure Half-Time: Peak Velocity(Antegrade Flow): Peak Gradient(Antegrade [...] M.D. Signed By: 06/04/241717 DD/ 16 TD/TT: Bench Manager: [place] [address] Cardiology Report Signed Patient: RUDDY TRAN MR#: [id number] : 1955 Acct:[id number] Age/Sex: 68 / M ADM Date: 06/04/24 Loc: ICU 271-[address]: Esau Melissa D.O. Ordering Physician: Florina Melissa D.O. Date of Service: 06/04/24 Procedure(s): CA ech o limited Accession Number(s): [id number] cc: AILIN GREEN ; Florina Melissa D.O. Patient Name: NABEEL TRAN MR#: [id number] : 1955 Exam Date: 06/04/2024 Ordering Doctor: [...] Area (Peak Walt): AoV Area (VTI): Deceleration Fallon: Pressure Half-Time: Peak Velocity(Antegr julien Flow): Peak [...] M.D. Signed By: 06/04/241717 DD/ 16 TD/TT: Bench Manager: CBC AUTO DIFF Reviewed date:06/15/2024 05:37:58 PM Interpretation: Performing Lab: Notes/Report: [facility] , White Blood Count 10.8 4.0-11.0 [...] 3/uL Performing Lab: see note ML - [facility] LB CBC AUTO DIFF Reviewed date:06/15/2024 05:37:58 PM Interpretation: Performing Lab: Notes/Report: [facility] , White Blood Count 11.7 4.0-11.0 [...] Performing Lab: see note ML - [facility] LB BNP Reviewed date:06/15/2024 05:37:58 PM Interpretation: Performing Lab: Notes/Report: [facility] , NT Pro B Type Natriuretic Pept 704.0 <=900.0 pg/mL Performing Lab: see note ML - [facility] LB PROF 14(COMP METB) Reviewed date:06/15/2024 05:37:58 PM Interpretation: Performing Lab: Notes/Report: [facility] , Sodium 139 136-145 mmol/L Potassium [...] 0.3 Performing Lab: see note ML - [facility] Prothrombin Time INR Reviewed date:06/15/2024 05:37:58 PM Interpretation: Performing Lab: Notes/Report: [facility] , Prothrombin Time 11.5 9.0-11.6 sec INR 1.09 DESIRED INR: 2.0-3.0 CONDITIONS NOT LISTED BELOW 2.5-3.5 FOR PROSTHETIC HEART VALVE REPLACEMENT 2.5-3.5 RECURRENT THROMBOSIS Performing Lab: see note ML - [facility] Troponin I High Sensitivity Reviewed date:06/15/2024 05:37:58 PM Interpretation: Performing Lab: Notes/Report: [facility] , Troponin I High Sensitivity 6.8 4.0-76.1 pg/mL CUT-OFF POINTS HAVE BEEN ESTABLISHED BASED ON THE FOURTH UNIVERSAL DEFINITION OF MYOCARDIAL INFARCTION. THE UPPER REFERENCE LIMIT (URL) OF TROPONIN, DEFINED THE 99TH PERCENTILE OF cTnI DISTRIBUTION IN A REFERENCE POPULATION, HAS BEEN CONFIRMED THE DECISION THRESHOLD FOR [place] DIAGNOSIS. 99TH PERCENTILE = 76.2 PG/ML NOTE: HIGH-SENSITIVITY TROPONIN ASSAY IS NOT INTENDED TO BE USED IN ISOLATION BUT SHOULD BE INTERPRETED IN CONJUNCTION WITH OTHER DIAGNOSTIC AND CLINICAL INFORMATION. Performing Lab: see note ML - [facility] LB ECG 12 lead Reviewed date:06/15/2024 05:37:58 PM Interpretation: Performing Lab: Notes/Report: Source Facility: [facility]-[address] [place] [address] [place] [address] Electrocardiograph Report Signed Patient: NABEEL TRAN MR#: [id number] : 1955 Acct:[id number] Age/Sex: 68 / M ADM Date: 06/13/24 Loc: ICU 271-[address]: Jason Damian M.D. Ordering Physician: Evelyn Dumont Date of Service: 06/13/24 Procedure(s): ECG 12 lead Accession Number(s): [id number] cc: [facility] Test Date: 2024-06-13 Pat Name: NABEEL TRAN Department: Room: - Gender: Male Registered Private Duty Nurse: : 1955 Requested By: 0923 Order Number: [id number] Reading MD: JASON DAMIAN Measurements Intervals [place] Rate: 120 P: 150 MO: 214 QRS: 28 QRSD: 88 T: 90 QT: 312 QTc: 384 Interpretive Statements 1220 Rapid atrial rhythm 1470 with occasional supraventricular premature complexes 2231 First degree AV block 4068 Nonspecific Twave abnormality 9150 abnormal ECG Compared to ECG 06/13/2024 16:19:31 First degree AV block now present ST (T wave) deviation no longer present Electronically Signed On 06-14-2024 6:29:56 EST by JASON DAMIAN Dictated By: Jason Damian M.D. Signed By: 06/14/24 0630 DD/ 1835 TD/TT: Bench Manager: [address] [place] [id number] Electrocardiograph Report Signed Patient: RUDDY TRAN MR#: [id number] : 1955 Acct:[id number] Age/Sex: 68 / M ADM Date: 06/13/24 Loc: ICU 271-[address]: Chioma Damian M.D. Ordering Physician: Evelyn Dumont Date of Service: 06/13/24 Procedure(s): ECG 12 lead Accession Number(s): [id number] cc: [facility] Test Date: 2024-06-13 Pat Name: NABEEL LAMAR Department: 97 Room: - Gender: Male Registered Private Duty Nurse: : 1955 Requ ested By: 0923 Order Number: [id number] Reading MD: JASON DAMIAN Measurements Intervals [place] Rate: 120 P: 150 MO: 214 QRS: 28 QRSD: 88 T: 90 [...] Marsha d On 06-14-2024 6:29:56 EST by JASON DAMIAN Dictated By: Unique Damian M.D. Signed By: 06/14/24629 DD/ 34 TD/TT: Bench Manager: CBC AUTO DIFF Reviewed date:08/18/2024 08:27:53 AM Interpretation: Performing Lab: Notes/Report: [facility] , White Blood Count 1.7 4.0-11.0 [...] Performing Lab: see note ML - [facility] LB Manual Differential Reviewed date:08/18/2024 08:27:53 AM Interpretation: Performing Lab: Notes/Report: [facility] , Segmented Neutrophils % Manual 71.0 [...] Performing Lab: see note ML - [facility] LB CA 30 day event monitor Reviewed date:07/11/2024 10:40:15 AM Interpretation: Performing Lab: Notes/Report: Source Facility: [place] [address] [place] [address] Cardiology Report Signed Patient: NABEEL TRAN MR#: [id number] : 1955 Acct:[id number] Age/Sex: 68 / M ADM Date: 06/04/24 Loc: ICU [address]: Florina Melissa D.O. Ordering Physician: Florina Melissa D.O. Date of Service: 06/05/24 Procedure(s): CA 30 day event monitor Accession Number(s): [id number] cc: AILIN GREEN ; Florina Melissa D.O. [facility] Test Date: 2024-07-09 Pat Name: NABEEL TRAN Department: Room: [facility] Gender: Male Registered Private Duty Nurse: : 1955 Requested By: 1838 Order Number: [id number] Reading MD: NITO SUNSHINE Interpretive Statements Predominant [...] Nito Sunshine D.O. Signed By: 07/10/24204307/10/242043 DD/ 4 TD/TT: Bench Manager: [place] [address] Cardiology Report Signed Patient: RUDDY TRAN MR#: [id number] : 1955 Acct:[id number] Age/Sex: 68 / M ADM Date: 06/04/24 Loc: ICU [address]: Esau Melissa D.O. Ordering Physician: Florina Melissa D.O. Date of Service: 06/05/24 Procedure(s): CA 30 day event monitor Accession Number(s): [id number] cc: AILIN GREEN ; Florina Melissa D.O. [facility] Test Date: 2024-07-09 Pat Name: NABEEL LAMAR Department: 97 Room: [facility] Gender: Male Registered Private Duty Nurse: : 1955 Requested By: 1838 Order Number: [id number] Reading MD: NITO SUNSHINE Interpretive Statements Predominant [...] Nito Sunshine D.O. Signed By: 07/10/24204307/10/242043 DD/ 4 TD/TT: Bench Manager: WILFRIDO Reviewed date:08/18/2024 08:27:53 AM Interpretation: Performing Lab: Notes/Report: [facility] , Lactate Dehydrogenase 194 85-227 U/L Performing Lab: see note ML - [facility] LB MAGNESIUM Reviewed date:08/18/2024 08:27:53 AM Interpretation: Performing Lab: Notes/Report: [facility] , Magnesium 1.8 1.8-2.4 mg/dL Performing Lab: see note - [facility] LB PROF 14(COMP METB) Reviewed date:08/18/2024 08:27:53 AM Interpretation: Performing Lab: Notes/Report: [facility] , Sodium 143 136-145 mmol/L Potassium 4.2 3.5-5.1 mmol/L Chloride 107 98-107 mmol/L Carbon Dioxide 30.5 21.0-32.0 mmol/L Anion Gap 9.7 Glucose 107 74-106 mg/dL Blood Urea Nitrogen 19.0 7.0-18.0 mg/dL Creatinine 0.95 0.70-1.30 mg/dL Estimated GFR ( Samantha >60 >=60 mL/min/1.73m 2 Estimated GFR (Non- Uary >60 >=60 mL/min/1.73m 2 BUN Creatinine Ratio 20.0 Calcium 8.9 8.5-10.1 mg/dL Bilirubin Total 0.3 0.2-1.0 mg/dL Aspartate Amino Transferase 17 15-37 U/L Alanine Aminotransferase 16 16-63 U/L Alkaline Phosphatase 98 46-116 U/L Total Protein 6.2 6.4-8.2 g/dL Albumin Level 2.8 3.4-5.0 g/dL Globulin 3.4 Albumin Globulin Ratio 0.8 Performing Lab: see note - [facility] LB Manual Differential Reviewed date:08/18/2024 08:27:53 AM Interpretation: Performing Lab: Notes/Report: [facility] , Segmented Neutrophils % Manual 60.0 [...] 1 Anisocytosis 1+ Performing Lab: see note - [facility] LB Vitamin B6, Plasma Reviewed date:08/15/2024 02:42:20 PM Interpretation: Performing Lab: Notes/Report: [facility] , Vitamin B6, Plasma 2.3 3.4-65.2 ug/L This test was developed and its performance characteristics determined by [facility]. It has not been cleared or approved by the Food and Drug Administration. Deficiency: <3.4 Marginal: 3.4 - 5.1 Adequate: >5.1 Performed at: [address] [id number] Water Control Station Engineer: Ash Wilcox MD, Phone: [phone] Performing Lab: see note - [facility] LB CBC AUTO DIFF Reviewed date:08/18/2024 08:27:53 AM Interpretation: Performing Lab: Notes/Report: [facility] , White Blood Count 12.1 4.0-11.0 [...] fL Performing Lab: see note ML - [facility] LB CBC AUTO DIFF Reviewed date:08/18/2024 08:27:53 AM Interpretation: Performing Lab: Notes/Report: [facility] , White Blood Count 4.9 4.0-11.0 [...] 3/uL Performing Lab: see note ML - [facility] LB Manual Differential Reviewed date:08/18/2024 08:27:53 AM Interpretation: Performing Lab: Notes/Report: [facility] , Segmented Neutrophils % Manual 21.0 [...] 0 3/uL Performing Lab: see note - [facility] PROF 14(COMP METB) Reviewed date:08/18/2024 08:27:53 AM Interpretation: Performing Lab: Notes/Report: [facility] , Sodium 143 136-145 mmol/L Potassium [...] Globulin Ratio 0.8 Performing Lab: see note - [facility] LDH Reviewed date:08/18/2024 08:27:53 AM Interpretation: Performing Lab: Notes/Report: [facility] , Lactate Dehydrogenase 126 85-227 U/L Performing Lab: see note - [facility] CBC AUTO DIFF Reviewed date:08/18/2024 08:27:53 AM Interpretation: Performing Lab: Notes/Report: [facility] , White Blood Count 2.5 4.0-11.0 [...] 9.8 9.5-13.5 fL Performing Lab: see note - [facility] LB Erythrocyte Sedimentation Ra te Reviewed date:08/18/2024 08:27:53 AM Interpretation: Performing Lab: Notes/Report: [facility] , Erythrocyte Sedimentation Rate 41 <=20 mm/hr Performing Lab: see note ML - [facility] LB Manual Differential Reviewed date:08/18/2024 08:27:53 AM Interpretation: Performing Lab: Notes/Report: [facility] , Segmented Neutrophils % Manual 62.0 [...] Performing Lab: see note ML - [facility] LB PROF 14(COMP METB) Reviewed date:08/18/2024 08:27:53 AM Interpretation: Performing Lab: Notes/Report: [facility] , Sodium 140 136-145 mmol/L Potassium [...] 0.5 Performing Lab: see note ML - [facility] LB LDH Reviewed date:08/18/2024 08:27:53 AM Interpretation: Performing Lab: Notes/Report: [facility] , Lactate Dehydrogenase 190 85-227 U/L Performing Lab: see note ML - [facility] LB CBC AUTO DIFF Reviewed date:08/18/2024 08:27:53 AM Interpretation: Performing Lab: Notes/Report: [facility] , White Blood Count 18.7 4.0-11.0 10 [...] 9.3 9.5-13.5 fL Performing Lab: see note [facility] CBC AUTO DIFF Reviewed date:08/18/2024 08:27:53 AM Interpretation: Performing Lab: Notes/Report: [facility] , White Blood Count 29.1 4.0-11.0 [...] 9.0 9.5-13.5 fL Performing Lab: see note [facility] LB Manual Differential Reviewed date:08/18/2024 08:27:53 AM Interpretation: Performing Lab: Notes/Report: [facility] , Segmented Neutrophils % Manual 12.0 [...] 1+ Acanthocytes 1+ Performing Lab: see note - [facility] LB PROF 14(COMP METB) Reviewed date:08/18/2024 08:27:53 AM Interpretation: Performing Lab: Notes/Report: [facility] , Sodium 141 136-145 mmol/L Potassium [...] 0.4 Performing Lab: see note ML - [facility] LB MAGNESIUM Reviewed date:08/18/2024 08:27:53 AM Interpretation: Performing Lab: Notes/Report: [facility] , Magnesium 1.9 1.8-2.4 mg/dL Performing Lab: see note ML - [facility] LB IRON AND TIBC Reviewed date:08/18/2024 08:27:53 AM Interpretation: Performing Lab: Notes/Report: [facility] , Iron 54.0 65.0-175.0 ug/dL Total Iron Binding Capacity 204.0 250.0-450.0 ug/dL Percent Iron Saturation 26.5 Performing Lab: see note ML - [facility] LB PET skull to mid thigh (Not yet reviewed by provider) Interpretation: Performing Lab: Notes/Report: Source Facility: [facility]-[address] [place] [address] [place] [address] PET Report Signed Patient: NABEEL TRAN MR#: [id number] : 1955 Acct:[id number] Age/Sex: 69 / M ADM Date: 09/08/24 Loc: PETCT Attending Dr: Sonia Donnelly M.D. Ordering Physician: Sonia Donnelly M.D. Date of Service: 09/08/24 Procedure(s): PET skull to mid thigh Accession Number(s): [id number] cc: AILIN GREEN ; Sonia Donnelly M.D. [place] [address] Patient Name: NABEEL TRAN MRN: [id number] date: 1955 Sex: M Assigned Patient Location: PETCT Current Patient Location: PETCT Accession/Order Number: [id number] Exam Date: 09/08/2024 15:00 Report Date: 09/15/2024 [...] NABEEL HADLEY Date: 09/15/2024 15:02 Dictated By: Nabele Hadley M.D. Signed By: 09/15/24 1505 DD/ 1502 TD/TT: Bench Manager: [place] [address] PET Report Signed Patient: RUDDY TRAN MR#: [id number] : 1955 Acct:[id number] Age/Sex: 69 / M ADM Date: 09/08/24 Loc: PETCT Attending Dr: Liu Donnelly M.D. Ordering Physician: Sonia Donnelly M.D. Date of Service: 09/08/24 Procedure(s): PET sk ull to mid thigh Accession Number(s): [id number] cc: AILIN GREEN ; Sonia Donnelly M.D. [place] [id number] Patient Name: NABEEL TRAN MRN: [id number] date: 1955 Sex: M Assigned Patient Location: PETCT Current Patient Loca tion: PETCT Accession/Order Numb er: [id number] Exam Date: 09/08/2024 15:00 Report Date: 09/15/2024 [...] Signed By: 09/15/24 1505 DD/ 1502 TD/TT: Bench Manager: FERRITIN Reviewed date:08/18/2024 08:27:53 AM Interpretation: Performing Lab: Notes/Report: [facility] , Ferritin 1497.0 26.0-388.0 ng/mL Performing Lab: see note ML - [facility] LB LDH (Not yet reviewed by pro vider) Interpretation: Performing Lab: Notes/Report: [facility] , Lactate Dehydrogenase 129 85-227 U/L Performing Lab: see note ML - [facility] LB PROF 14(COMP METB) (Not yet reviewed by provider) Interpretation: Performing Lab: Notes/Report: [facility] , Sodium 141 136-145 mmol/L Potassium [...] 0.9 Performing Lab: see note ML - [facility] LB Manual Differential Reviewed date:08/18/2024 08:27:53 AM Interpretation: Performing Lab: Notes/Report: [facility] , Segmented Neutrophils % Manual 46.0 [...] 1+ Performing Lab: see note ML - [facility] LB PROF 14(COMP METB) Reviewed date:08/18/2024 08:27:53 AM Interpretation: Performing Lab: Notes/Report: [facility] , Sodium 142 136-145 mmol/L Potassium [...] 0.3 Performing Lab: see note ML - [facility] LB CBC AUTO DIFF Reviewed date:08/18/2024 08:27:53 AM Interpretation: Performing Lab: Notes/Report: [facility] , White Blood Count 1.5 4.0-11.0 [...] fL Performing Lab: see note ML - [facility] LB PROF 14(COMP METB) Reviewed date:06/15/2024 05:37:58 PM Interpretation: Performing Lab: Notes/Report: [facility] , Sodium 139 136-145 mmol/L Potassium [...] Performing Lab: see note ML - [facility] LB CBC AUTO DIFF Reviewed date:06/15/2024 05:37:58 PM Interpretation: Performing Lab: Notes/Report: [facility] , White Blood Count 5.8 4.0-11.0 [...] 10 3/uL Performing Lab: see note - [facility] Prothrombin Time INR Reviewed date:06/15/2024 05:37:58 PM Interpretation: Performing Lab: Notes/Report: [facility] , Prothrombin Time 11.1 9.0-11.6 sec INR 1.05 DESIRED INR: 2.0-3.0 CONDITIONS NOT LISTED BELOW 2.5-3.5 FOR PROSTHETIC HEART VALVE REPLACEMENT 2.5-3.5 RECURRENT THROMBOSIS Performing Lab: see note - [facility] PTT Reviewed date:06/15/2024 05:37:58 PM Interpretation: Performing Lab: Notes/Report: [facility] , Partial Thromboplastin Time 36.5 22.3-36.2 sec Performing Lab: see note [facility] PROF CHEM 8 (BAS METB) Reviewed date:06/15/2024 05:37:58 PM Interpretation: Performing Lab: Notes/Report: [facility] , Sodium 140 136-145 mmol/L Potassium [...] 8.5 8.5-10.1 mg/dL Performing Lab: see note - [facility] MAGNESIUM Reviewed date:06/15/2024 05:37:58 PM Interpretation: Performing Lab: Notes/Report: [facility] , Magnesium 2.1 1.8-2.4 mg/dL Performing Lab: see note [facility] CBC AUTO DIFF Reviewed date:06/15/2024 05:37:58 PM Interpretation: Performing Lab: Notes/Report: [facility] , White Blood Count 5.8 4.0-11.0 [...] Performing Lab: see note ML - [facility] LB XR chest 1V Reviewed date:06/15/2024 05:37:58 PM Interpretation: Performing Lab: Notes/Report: Source Facility: [facility]-[address] [place] [address] [place] [address] XRay Report Signed Patient: NABEEL TRAN MR#: [id number] : 1955 Acct:[id number] Age/Sex: 68 / M ADM Date: 06/13/24 Loc: ER Attending Dr: Ordering Physician: Evelyn Dumont Date of Service: 06/13/24 Procedure(s): XR chest 1V Accession Number(s): [id number] cc: AILIN Hernandez [place] [id number] Patient Name: NABEEL TRAN MRN: [id number] date: 1955 Sex: M Assigned Patient Location: ER Current Patient Location: ER Accession/Order Number: [id number] Exam Date: 06/13/2024 16:38 Report Date: 06/13/2024 [...] Nancy Yi M.D. Signed By: 06/13/241750 DD/ 174 TD/TT: Bench Manager: [place] [address] XRay Report Signed Patient: RUDDY TRAN MR#: [id number] : 1955 Acct:[id number] Age/Sex: 68 / M ADM Date: 06/13/24 Loc: ER Attending Dr: Ordering Physician: Evelyn Dumont Date of Service: 06/13/24 Procedure(s): XR chest 1V Accession Number(s): [id number] cc: AILIN Hernandez [place] [id number] Patient Name: NABEEL TRAN MRN: [id number] date: 1955 Sex: M Assigned Patient Location: ER Current Patient Loca tion: ER Accession/Order Numb er: [id number] Exam Date: 16:38 Report Date: 06/13/2024 17:49 [...] Signed By: 06/13/24 175 DD/ 174 TD/TT: Bench Manager: ECG 12 lead Reviewed date:06/15/2024 05:37:58 PM Interpretation: Performing Lab: Notes/Report: Source Facility: [place] [address] Electrocardiograph Report Signed Patient: NABEEL TRAN MR#: [id number] : 1955 Acct:[id number] Age/Sex: 68 / M ADM Date: 06/13/24 Loc: ICU 271-[address]: Jason Damian M.D. Ordering Physician: Evelyn Dumont Date of Service: 06/13/24 Procedure(s): ECG 12 lead Accession Number(s): [id number] cc: [facility] Test Date: 2024-06-13 Pat Name: NABEEL TRAN Department: Room: - Gender: Male Registered Private Duty Nurse: : 1955 Requested By: AILIN GREEN Order Number: [id number] Reading MD: JASON DAMIAN Measurements Intervals [place] Rate: 157 P: 240 MO: 134 QRS: 18 QRSD: 84 T: 109 QT: 302 QTc: 390 Interpretive Statements 1220 Rapid atrial rhythm [address] depression [address] [place] abnormality 9140 abnormal rhythm ECG Compared to ECG 06/04/2024 16:20:31 ST (T wave) deviation now present Myocardial infarct finding no longer present Left ventricular hypertrophy no longer present Electronically Signed On 06-14-2024 6:29:39 EST by JASON DAMIAN Dictated By: Jason Damian M.D. Signed By: 06/14/24628 DD/ 18 TD/TT: Bench Manager: [place] [address] Electrocardiograph Report Signed Patient: RUDDY TRAN MR#: [id number] : 1955 Acct:[id number] Age/Sex: 68 / M ADM Date: 06/13/24 Loc: ICU 271-[address]: Chioma Damian M.D. Ordering Physician: Evelyn Dumont Date of Service: 06/13/24 Procedure(s): ECG 12 lead Accession Number(s): [id number] cc: [facility] Test Date: 2024-06-13 Pat Name: NABEEL LAMAR Department: 97 Room: - Gender: Male Registered Private Duty Nurse: : 1955 Requ ested By: AILIN GREEN Order Number: [id number] Reading MD: JASON DAMIAN Measurements Intervals [place] Rate: 157 P: 240 MO: 134 QRS: 18 QRSD: 84 T: 109 QT: 302 QTc: 390 Interpretive Statements 1220 Rapid atrial rhythm [address] depression [address] [place] abnormality 9140 abnormal rhy [facility] ECG Compared to ECG 06/04/2024 16:20:31 ST (T wave) deviatio n now present Myocardial infarct finding no longer present Left ventricular hypertrophy no longer present Electronically Marsha d On 06-14-2024 6:29:39 EST by JASON DAMIAN Dictated By: Unique Damian M.D. Signed By: 06/14/24628 DD/ 18 TD/TT: Bench Manager: CBC AUTO DIFF (Not yet revie wed by provider) Interpretation: Performing Lab: Notes/Report: [facility] , White Blood Count 5.6 4.0-11.0 [...] Performing Lab: see note ML - [facility] LB LDH (Not yet reviewed by pro vider) Interpretation: Performing Lab: Notes/Report: [facility] , Lactate Dehydrogenase 136 85-227 U/L Performing Lab: see note ML - [facility] LB PROF 14(COMP METB) (Not yet reviewed by provider) Interpretation: Performing Lab: Notes/Report: [facility] , Sodium 144 136-145 mmol/L Potassium [...] 1.0 Performing Lab: see note ML - [facility] LB CBC AUTO DIFF Reviewed date:06/15/2024 05:37:58 PM Interpretation: Performing Lab: Notes/Report: [facility] , White Blood Count 7.0 4.0-11.0 [...] Performing Lab: see note ML - [facility] LB LDH (Not yet reviewed by pro vider) Interpretation: Performing Lab: Notes/Report: [facility] , Lactate Dehydrogenase 126 85-227 U/L Performing Lab: see note ML - [facility] LB PROF 14(COMP METB) (Not yet reviewed by provider) Interpretation: Performing Lab: Notes/Report: [facility] , Sodium 144 136-145 mmol/L Potassium [...] Performing Lab: see note ML - [facility] LB CBC AUTO DIFF (Not yet revie wed by provider) Interpretation: Performing Lab: Notes/Report: [facility] , White Blood Count 7.3 4.0-11.0 [...] Performing Lab: see note ML - [facility] LB PROF 14(COMP METB) Reviewed date:06/15/2024 05:37:58 PM Interpretation: Performing Lab: Notes/Report: [facility] , Sodium 141 136-145 mmol/L Potassium [...] 0.2 Performing Lab: see note ML - [facility] LB MAGNESIUM Reviewed date:06/15/2024 05:37:58 PM Interpretation: Performing Lab: Notes/Report: [facility] , Magnesium 2.2 1.8-2.4 mg/dL Performing Lab: see note ML - [facility] LB CBC AUTO DIFF (Not yet revie wed by provider) Interpretation: Performing Lab: Notes/Report: [facility] , White Blood Count 7.2 4.0-11.0 10 3/uL Red Blood Count 5.09 4.70-6.10 10 6/uL Hemoglobin 15.5 14.0-18.0 g/dL Hematocrit 46.7 42.0-54.0 % Mean Corpuscular Volume 91.7 80.0-94.0 fL Mean Corpuscular Hemoglobin 30.5 25.9-34.0 pg Mean Corpuscular HGB Conc 33.2 29.9-35.2 g/dL Red Cell Distribution Width 13.2 11.0-15.0 % Platelet Count 190 150-450 10 3/uL Mean Platelet Volume 9.2 9.5-13.5 fL Neutrophils Percent Auto 69.9 43.0-75.0 % Lymphocytes Percent Auto 13.6 20.5-60.0 % Monocytes Percent Auto 9.7 1.7-12.0 % Eosinophils Percent Auto 5.8 0.9-7.0 % Basophils Percent Auto 0.6 0.2-2.0 % Immature Granulocytes Pct Auto 0.4 0.0-0.5 % Neutrophils Absolute Auto 5.1 1.4-6.5 10 3/uL Lymphocytes Absolute Auto 1.0 1.2-3.8 10 3/uL Monocytes Absolute Auto 0.7 0.3-0.8 10 3/uL Eosinophils Absolute Auto 0.4 0.0-0.7 10 3/uL Basophils Absolute Auto 0.0 0.0-0.1 10 3/uL Immature Granulocytes Abs Auto 0.03 0.00-0.03 10 3/uL Performing Lab: see note ML - [facility] LB PROF 14(COMP METB) Reviewed date:06/15/2024 05:37:58 PM Interpretation: Performing Lab: Notes/Report: [facility] , Sodium 135 136-145 mmol/L Potassium [...] 0.2 Performing Lab: see note ML - [facility] LB LDH Reviewed date:06/15/2024 05:37:58 PM Interpretation: Performing Lab: Notes/Report: [facility] , Lactate Dehydrogenase 180 85-227 U/L Performing Lab: see note ML - [facility] LB CT soft tissue neck w con (N ot yet reviewed by provider) Interpretation: Performing Lab: Notes/Report: Source Facility: [facility]-[address] [place] [address] [place] [address] CT Scan Report Signed Patient: NABEEL TRAN MR#: [id number] : 1955 Acct:[id number] Age/Sex: 69 / M ADM Date: 02/20/25 Loc: LAB Attending Dr: Sonia Donnelly M.D. Ordering Physician: Sonia Donnelly M.D. Date of Service: 02/20/25 Procedure(s): CT soft tissue neck wo/w con Accession Number(s): [id number] cc: AILIN GREEN [address] [address] Patient Name: NABEEL TRAN MRN: [id number] date: 1955 Sex: M Assigned Patient Location: LAB Current Patient Location: CARD Accession/Order Number: [id number] Exam Date: 02/20/2025 16:33 Report Date: 02/20/2025 16:43 At the request of: SONIA DONNELLY MD Procedure: CT soft tissue neck wo/w con CT soft tissue neck wo/w con 02/20/2025 2:20 PM SIGNS AND SYMPTOMS: B Cell Lymphoma , Nodular Sclerosis Hodgkin Lymphoma TECHNIQUE: Multidetector CT axial slices of the soft tissues of the neck were obtained without and with IV contrast. Sagittal and coronal reformats were reconstructed. CT was performed with one or more of the following dose reduction techniques: Automated exposure control, adjustment of the mA and/or kV according to patient size, or use of iterative reconstruction technique. COMPARISON: PET/CT 12/15/2024 FINDINGS: The nasopharynx, oropharynx, hypopharynx, glottic, and subglottic regions are unremarkable. The parotid glands, submandibular, and the thyroid gland are within normal limits. Prepontine cistern calcific density noted unclear if this is vascular in etiology. 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 Left mastoid is clear. The visualized lung parenchyma shows no acute pathology. Reversal normal cervical lordosis. Multilevel disc osteophyte complex infiltration identified. Right-sided Mediport/be reported by 7 5 partially visualized. No pathologic adenopathy identified with neck. Mildly prominent submental lymph node noted CT/CT soft tissue neck wo/w con IMPRESSION: No evidence of lymphoma within the neck. 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 Impression dictated by: Leno Landry M.D. 02/20/2025 4:43 PM Dictation Location: [place] [address] Electronically authenticated by: [id number] Y Date: 02/20/2025 16:43 Dictated By: Leno Landry M.D. Signed By: 02/20/251645 DD/ 42 TD/TT: Bench Manager: [place] [address] CT Scan Report Signed Patient: RUDDY TRAN MR#: [id number] : 1955 Acct:[id number] Age/Sex: 69 / M ADM Date: 02/20/25 Loc: LAB Attending Dr: Liu Donnelly M.D. Ordering Physician: Sonia Donnelly M.D. Date of Service: 02/20/25 Procedure(s): CT sof t tissue neck wo/w con Accession Number(s): [id number] cc: AILIN GREEN [place] [address] Patient Name: NABEEL TRAN MRN: [id number] date: 1955 Sex: M Assigned Patient Location: LAB Current Patient Loca tion: CARD Accession/Order Numb er: [id number] Exam Date: 02/20/2025 16:33 Report Date: 02/20/2025 16:43 At the request of: SONIA DONNELLY MD Procedure: CT soft t issue neck wo/w con CT soft tissue neck wo/w con 02/20/2025 2:20 PM SIGNS AND SYMPTOMS: B Cell Lymphoma , No dular Sclerosis Hodgkin Lymphoma TECHNIQUE: Multidete ctor CT axial slices of the soft tissues of the neck were obtained without and with IV contrast. Sagittal and coronal reformats were reconstructed. CT wa s performed with one or more of the following dose reduction techniques : Automated exposure control, adjustment of the mA and/or kV according to lia ent size, or use of iterative reconstruction technique. COMPARISON: PET/CT 12/15/2024 FINDINGS: The nasopharynx, oropharynx, hypopharynx, glottic, and subglottic regions are unremarkable. The parotid glands, submandibular, and the thyroid gland are within normal limits. Prepontine cistern calcific density noted unclear if this is vascular in etiology. Thrombosed aneurysm could be considered right-sided canal wa ll up mastoidectomy with debris within the mastoidectomy bowl.. Left mastoid is clear. The visualized lung parenchyma shows no acute pathology. Reversal normal cerv ical lordosis. Multilevel disc osteophyte complex infiltration identif ied. Right-sided Mediport/be reported by 7 5 partially visualized. No patho logic adenopathy identified with neck. Mildly prominent submental lymph node noted C T/CT soft tissue neck wo/w con IMPRESSION: No evidence of lymph kinsey within the neck. Stable submental lym ph node when compared to recent PET/CT Prepontine cistern calcific densities unclear if this is a partially thrombosed aneurysm, correlate with history. Impression dictated by: Leno Landry M.D. 02/20/2025 4:43 PM Dictation Location: [place] [address] Electronically authenticated by: [id number] Y Date: 02/20/2025 16:43 Dictated By: Cee Landry M.D. Signed By: 02/20/251645 DD/ 164 TD/TT: Bench Manager: CT chest wo/w con (Not yet r eviewed by provider) Interpretation: Performing Lab: Notes/Report: Source Facility: [place] [address] CT Scan Report Signed Patient: NABEEL TRAN MR#: [id number] : 1955 Acct:[id number] Age/Sex: 69 / M ADM Date: 02/20/25 Loc: LAB Attending Dr: Sonia Donnelly M.D. Ordering Physician: Sonia Donnelly M.D. Date of Service: 02/20/25 Procedure(s): CT chest wo/w con Accession Number(s): [id number] cc: AILIN GREEN [place] [address] Patient Name: NABEEL TRAN MRN: [id number] date: 1955 Sex: M Assigned Patient Location: LAB Current Patient Location: CARD Accession/Order Number: [id number] Exam Date: 02/20/2025 16:53 Report Date: 02/20/2025 17:01 At the request of: SONIA DONNELLY MD Procedure: CT chest wo/w con CT CHEST WITH AND WITHOUT INTRAVENOUS CONTRAST: CLINICAL HISTORY: B Cell Lymphoma , Nodular Sclerosis Hodgkin Lymphoma COMPARISON: 03/29/2024 TECHNIQUE: Spiral images were obtained through the chest with and without intravenous administration of IV contrast. This CT exam was performed using one or more following dose reduction techniques: Automated exposure control, adjustment of the mA and/or kV according to patient size, or use of iterative reconstruction technique. FINDINGS: Mediastinum:Cardiac megaly. No pericardial effusion. Coronary artery calculations. Calcified granulomatous left hilar region. No pathologically enlarged mediastinal or hilar nodes. A large right axilla Lungs:Bibasilar atelectasis and or scarring. Trace effusions. Left lower lobe calcified granulomatous. There are groundglass opacities right upper lobe noted with slight nodular configuration. Right-sided Mediport represent Mcqafx-e-Knzc device identified tip cavoatrial junction. Abd:[Upper abdominal images grossly unremarkable as visualized.] Soft tissues/Bones: [] A large right axillary lymph node measuring 3 cm in greatest dimension.. Right axillary surgical clips and or biopsy clips noted. Multilevel degenerative changes throughout the thoracic spine with multilevel disc osteophyte complex is noted. CT/CT chest wo/w con IMPRESSION: Nonspecific groundglass parenchymal opacity involving right upper lobe. This could be infectious or inflammatory in etiology. Recommend 3 month follow-up to document resolution following medical treatment course. Impression dictated by: Leno Landry M.D. 02/20/2025 5:01 PM Dictation Location: [place] [address] Electronically authenticated by: [id number] Y Date: 02/20/2025 17:01 Dictated By: Leno Landry M.D. Signed By: 02/20/25 1704 DD/ 00 TD/TT: Bench Manager: [place] [address] CT Scan Report Signed Patient: RUDDY TRAN MR#: [id number] : 1955 Acct:[id number] Age/Sex: 69 / M ADM Date: 02/20/25 Loc: LAB Attending Dr: Liu Donnelly M.D. Ordering Physician: Sonia Donnelly M.D. Date of Service: 02/20/25 Procedure(s): CT [place] st wo/w con Accession Number(s): [id number] cc: AILIN GREEN [place] [address] Patient Name: NABEEL TRAN MRN: [id number] date: 1955 Sex: M Assigned Patient Location: LAB Current Patient Loca tion: CARD Accession/Order Numb er: [id number] Exam Date: 02/20/2025 16:53 Report Date: 02/20/2025 17:01 At the request of: SONIA DONNELLY MD Procedure: CT chest wo/w con CT CHEST WITH AND WI THOUT INTRAVENOUS CONTRAST: CLINICAL HISTORY: B Cell Lymphoma , Nodular Sclerosis Hodgkin Lymphoma COMPARISON: 03/29/2024 TECHNIQUE: Spiral im ages were obtained through the chest with and without intravenous administration of IV contrast. This CT exam was performed using one or more followin g dose reduction techniques: Automated exposure control, adjustment of the mA and/or kV according to patient size, or use of iterative reconstruction technique. FINDINGS: Mediastinum:Cardiac megaly. No pericardial effusion. Coronary artery calculations. Calcif ied granulomatous left hilar region. No pathologically enlarged mediastinal or hilar nodes. A large right axilla Lungs:Bibasilar atelectasis and or scarring. Trace effusions. Left lower lobe calcified granulomatous. There are groundglass opacities right upper lobe noted with slig ht nodular configuration. Right-sided Mediport represent Gwhhlw-p-Rxav device identified tip cavoatrial junction. Abd:[Upper abdominal images grossly unremarkable as visualized.] Soft tissues/Bones: [] A large right axillary lymph node measuring 3 cm in greatest dimension.. Right axillary surgical clips and or biopsy clips noted. Multilevel degenerat radha changes throughout the thoracic spine with multilevel disc osteophyte comp ila is noted. C T/CT chest wo/w con IMPRESSION: Nonspeci fic groundglass parenchymal opacity involving right upper lobe. This could be infectious or inflammatory in etiology. Recommend 3 month follow-up to document resolution following medical treatment course. Impression dictated by: Leno Landry M.D. 02/20/2025 5:01 PM Dictation Location: [place] [address] Electronically authenticated by: [id number] Y Date: 02/20/2025 17:01 Dictated By: Cee Landry M.D. Signed By: 02/20/251703 DD/ 00 TD/TT: Bench Manager: PROF [place](COMP METB) Reviewed date:06/05/2024 08:09:30 AM Interpretation: Performing Lab: Notes/Report: [facility] , Sodium 137 136-145 mmol/L Potassium [...] Performing Lab: see note ML - [facility] LB MAGNESIUM Reviewed date:06/05/2024 08:09:30 AM Interpretation: Performing Lab: Notes/Report: [facility] , Magnesium 1.8 1.8-2.4 mg/dL Performing Lab: see note ML - [facility] LB CBC AUTO DIFF Reviewed date:06/05/2024 08:09:30 AM Interpretation: Performing Lab: Notes/Report: [facility] , White Blood Count 9.1 4.0-11.0 [...] Performing Lab: see note ML - [facility] LB ECG 12 lead Reviewed date:06/05/2024 08:09:30 AM Interpretation: Performing Lab: Notes/Report: Source Facility: [facility]-[address] [place] [address] [place] [address] Electrocardiograph Report Signed Patient: NABEEL TRAN MR#: [id number] : 1955 Acct:[id number] Age/Sex: 68 / M ADM Date: 06/04/24 Loc: ICU 271-1 Attending : Florina Melissa D.O. Ordering Physician: Florina Melissa D.O. Date of Service: 06/04/24 Procedure(s): ECG 12 lead Accession Number(s): [id number] cc: [facility] Test Date: 2024-06-04 Pat Name: NABEEL TRAN Department: Room: [facility] Gender: Male Registered Private Duty Nurse: : 1955 Requested By: AILIN GREEN Order Number: [id number] Reading MD: NITO SUNSHINE Measurements Intervals [place] Rate: 133 P: -25270 MO: -35637 QRS: 10 QRSD: 86 T: 1 QT: [...] By: Nito Sunshine D.O. Signed By: 06/04/24 2328 DD/ 1620 TD/TT: Bench Manager: [place] [address] Electrocardiograph Report Signed Patient: RUDDY TRAN MR#: [id number] : 1955 Acct:[id number] Age/Sex: 68 / M ADM Date: 06/04/24 Loc: ICU 271- Attending Dr: Esau Melissa D.O. Ordering Physician: Florina Melissa D.O. Date of Service: 06/04/24 Procedure(s): ECG 12 lead Accession Number(s): [id number] cc: [facility] Test Date: 2024-06-04 Pat Name: NABEEL LAMAR Department: 97 Room: [facility] Gender: Male Registered Private Duty Nurse: : 1955 Requ ested By: AILIN GREEN Order Number: [id number] Reading MD: NITO SUNSHINE Measurements Intervals [place] Rate: 133 P: -26748 MO: -30026 QRS: 10 QRSD: 86 T: 1 QT: [...] Dictated By: Nito Sunshine D.O. Signed By: 06/04/242327 DD/ 1620 TD/TT: Bench Manager: XR chest 1V Reviewed date:06/04/2024 12:13:07 PM Interpretation: Performing Lab: Notes/Report: Source Facility: [place] [address] XRay Report Signed Patient: NABEEL TRAN MR#: [id number] : 1955 Acct:[id number] Age/Sex: 68 / M ADM Date: 06/04/24 Loc: ICU 271-[address]: Everett Clemens M.D. Ordering Physician: Everett Clemens M.D. Date of Service: 06/04/24 Procedure(s): XR chest 1V Accession Number(s): [id number] cc: AILIN GREEN ; Everett Clemens M.D. [place] [id number] Patient Name: NABEEL TRAN MRN: [id number] date: 1955 Sex: M Assigned Patient Location: [facility] Current Patient Location: [facility] Accession/Order Number: [id number] Exam Date: 06/04/2024 11:33 Report Date: 06/04/2024 [...] M.D. Signed By: 06/04/241205 DD/ 03 TD/TT: Bench Manager: [place] [address] XRay Report Signed Patient: RUDDY TRAN MR#: [id number] : 1955 Acct:[id number] Age/Sex: 68 / M ADM Date: 06/04/24 Loc: ICU 271-1 Attending Dr: Karl Clemens M.D. Ordering Physician: Everett Clemens M.D. Date of Service: 06/04/24 Procedure(s): XR chest 1V Accession Number(s): [id number] cc: AILIN GREEN ; Everett Clemens M.D. [place] [address] Patient Name: NABEEL TRAN MRN: [facility]:[id number] date: 1955 Sex: M Assigned Patient Location: [facility] Current Patient Loca tion: [facility] Accession/Order Numb er: [id number] Exam Date: 11:33 Report Date: 06/04/2024 12:04 [...] By: Nabeel Strange M.D. Signed By: 06/04/24 120 DD/ 03 TD/TT: Bench Manager: ECG 12 lead Reviewed date:06/05/2024 08:09:31 AM Interpretation: Performing Lab: Notes/Report: Source Facility: [place] [address] Electrocardiograph Report Signed Patient: NABEEL TRAN MR#: [id number] : 1955 Acct:[id number] Age/Sex: 68 / M ADM Date: 06/04/24 Loc: ICU 271-[address]: Florina Melissa D.O. Ordering Physician: Johnathan Triplett M.D. Date of Service: 06/04/24 Procedure(s): ECG 12 lead Accession Number(s): [id number] cc: [facility] Test Date: 2024-06-04 Pat Name: NABEEL TRAN Department: Room: - Gender: Male Registered Private Duty Nurse: : 1955 Requested By: EVERETT CLEMENS Order Number: [id number] Reading MD: NITO SUNSHINE Measurements Intervals [place] Rate: 98 P: 68 MO: 171 QRS: 40 QRSD: 96 T: 63 QT: 378 QTc: 483 Interpretive Statements SINUS RHYTHM WITH FREQUENT SUPRAVENTRICULAR PREMATURE COMPLEXES ABNORMAL RHYTHM ECG Compared to ECG 04/21/2024 13:26:07 No significant changes Electronically Signed On 06-04-2024 23:25:32 EDT by NITO SUNSHINE Dictated By: Nito Sunshine D.O. Signed By: 06/04/242324 DD/ 1111 TD/TT: Bench Manager: [place] [address] Electrocardiograph Report Signed Patient: RUDDY TRAN MR#: [id number] : 1955 Acct:[id number] Age/Sex: 68 / M ADM Date: 06/04/24 Loc: ICU 271-[address]: Esau Melissa D.O. Ordering Physician: Johnathan rTiplett M.D. Date of Service: 06/04/24 Procedure(s): ECG 12 lead Accession Number(s): [id number] cc: [facility] Test Date: 2024-06-04 Pat Name: NABEEL LAMAR Department: 97 Room: - Gender: Male Registered Private Duty Nurse: : 1955 Requ ested By: EVERETT CLEMENS Order Number: [id number] Reading MD: NITO SUNSHINE Measurements Intervals [place] Rate: 98 P: 68 MO: 171 QRS: 40 QRSD: 96 T: 63 QT: 378 QTc: 483 Interpretive Statements SINUS RHYTHM WITH FREQUENT SUPRAVENTRICULAR PREMATURE COMPLEXES ABNORMAL RHYTHM ECG Compared to ECG 04/21/2024 13:26:07 No significant changes Electronically Marsha d On 06-04-2024 23:25:32 EDT by NITO SUNSHINE Dictated By: Nito Sunshine D.O. Signed By: 06/04/242324 DD/ 1111 TD/TT: Bench Manager: TSH Reviewed date:06/04/2024 01:58:05 PM Interpretation: Performing Lab: Notes/Report: [facility] , Thyroid Stimulating Hormone 0.348 0.358-3.740 uIU/mL Performing Lab: see note ML - [facility] LB BNP Reviewed date:06/04/2024 01:58:05 PM Interpretation: Performing Lab: Notes/Report: [facility] , NT Pro B Type Natriuretic Pept 294.0 <=900.0 pg/mL Performing Lab: see note ML - [facility] LB CA echo doppler complete Reviewed date:06/04/2024 01:55:35 PM Interpretation: Performing Lab: Notes/Report: Source Facility: [place] [address] [place] [address] Cardiology Report Signed Patient: NABEEL TRAN MR#: [id number] : 1955 Acct:[id number] Age/Sex: 68 / M ADM Date: 05/23/24 Loc: CARD Attending Dr: Sonia Donnelly M.D. Ordering Physician: Sonia Donnelly M.D. Date of Service: 05/23/24 Procedure(s): CA echo doppler complete Accession Number(s): [id number] cc: AILIN GREEN ; Sonia Donnelly M.D. Patient Name: NABEEL TRAN MR#: [id number] : 1955 Exam Date: 05/23/2024 Ordering Doctor: [...] M.D. Signed By: 05/23/241724 DD/ 23 TD/TT: Bench Manager: [place] [address] Cardiology Report Signed Patient: RUDDY TRAN MR#: [id number] : 1955 Acct:[id number] Age/Sex: 68 / M ADM Date: 05/23/24 Loc: CARD Attending Dr: Liu Donnelly M.D. Ordering Physician: Sonia Donnelly M.D. Date of Service: 05/23/24 Procedure(s): CA ech o doppler complete Accession Number(s): [id number] cc: AILIN GREEN ; Sonia Donnelly M.D. Patient Name: NABEEL TRAN MR#: [id number] : 1955 Exam Date: 05/23/2024 Ordering Doctor: [...] M.D. Signed By: 05/23/241724 DD/ 23 TD/TT: Bench Manager: RT pulmonary function test Reviewed date:06/04/2024 01:55:35 PM Interpretation: Performing Lab: Notes/Report: Source Facility: [place] [address] Respiratory Report Signed Patient: NABEEL TRAN MR#: [id number] : 1955 Acct:[id number] Age/Sex: 68 / M ADM Date: 05/20/24 Loc: CARD Attending Dr: Sonia Donnelly M.D. Ordering Physician: Sonia Donnelly M.D. Date of Service: 05/20/24 Procedure(s): RT pulmonary function test Accession Number(s): [id number] cc: [facility] Test Date: 2024-05-20 Pat Name: NABEEL TRAN Department: Room: - Gender: Male Registered Private Duty Nurse: Evelyn Frances RRT : 1955 Requested By: Sonia Donnelly Order Number: [id number] Vy MD: Leroy Torres Interpretive Statements Pulmonary function [...] Signed By: 05/20/24 1451 05/20/24 1451 DD/ TD/TT: Bench Manager: [place] [address] Respiratory Report Signed Patient: RUDDY TRAN MR#: [id number] : 1955 Acct:[id number] Age/Sex: 68 / M ADM Date: 05/20/24 Loc: CARD Attending Dr: Liu Donnelly M.D. Ordering Physician: Sonia Donnelly M.D. Date of Service: 05/20/24 Procedure(s): RT pulmonary function test Accession Number(s): [id number] cc: [facility] Test Date: 2024-05-20 Pat Name: NABEEL LAMAR Department: 97 Room: - Gender: Male Techni marjorie: Evelyn Frances RRT : 1955 Requ ested By: Sonia Donnelly Order Number: [id number] Reading MD: Leroy Torres Interpretive Statements Pulmonary [...] Dictated By: Casey Torres D.O. Signed By: 05/20/24145005/20/241450 DD/ 5 TD/TT: Bench Manager: Lupus Anticoagulant Reflex Reviewed date:06/04/2024 01:55:35 PM [...] the absence of anticoagulant therapy. Performed at: - [facility] [id number] Water Control Station Engineer: Ash Wilcox MD, Phone: [phone] Performing Lab: see note LC - [facility] LB Hep B Core Ab, Tot Reviewed date:06/04/2024 01:55:35 PM Interpretation: Performing Lab: Notes/Report: [facility] , Hep B Core Ab, Tot Negative Negative Performed at: CB - [facility] [place] [address], [place], [place] [id number] Water Control Station Engineer: Neville Long PhD, Phone: [phone] Performing Lab: see note [facility] LB Hepatitis B Surf Ab Quant Reviewed date:06/04/2024 01:55:35 PM Interpretation: Performing Lab: Notes/Report: [facility] , Hepatitis B Surf Ab Quant <3.5 Immuni ty>10 mIU/mL Status of Immunity Anti-HBs Level Inconsistent with Immunity 0.0 - 10.0 Consistent with Immunity >10.0 Performing Lab: see note [facility] LB HBsAg Screen Reviewed date:06/04/2024 01:55:35 PM Interpretation: Performing Lab: Notes/Report: [facility] , HBsAg Screen Negative Negative Performing Lab: see note [facility] PROF 14(COMP METB) Reviewed date:06/04/2024 01:55:35 PM Interpretation: Performing Lab: Notes/Report: [facility] , Sodium 134 136-145 mmol/L Potassium [...] Ratio 0.3 Performing Lab: see note - [facility] LB LDH Reviewed date:06/04/2024 01:55:35 PM Interpretation: Performing Lab: Notes/Report: [facility] , Lactate Dehydrogenase 197 85-227 U/L Performing Lab: see note ML - [facility] LB LAB TESTING Reviewed date:06/04/2024 01:55:35 PM Interpretation: Performing Lab: Notes/Report: [id number] Sedimentation Rate, Modified [place] [facility] , Miscellaneous Test COMMENT . Test Ordered: 109636 Sedimentation Rate-[place] Sedimentation Rate-[place] 120 [H ] mm/hr CB Reference Range: 0-30 Performed at: CB - [facility] [address] [id number] Water Control Station Engineer: Neville Long PhD, Phone: [phone] Performing Lab: see note - [facility] LB CBC AUTO DIFF Reviewed date:06/04/2024 01:55:35 PM Interpretation: Performing Lab: Notes/Report: [facility] , White Blood Count 11.7 4.0-11.0 [...] Performing Lab: see note ML - [facility] PET skull to mid thigh Reviewed date:06/04/2024 01:55:35 PM Interpretation: Performing Lab: Notes/Report: Source Facility: [place] [address] PET Report Signed Patient: NABEEL TRAN MR#: [id number] : 1955 Acct:[id number] Age/Sex: 68 / M ADM Date: 05/12/24 Loc: PETCT Attending Dr: Sonia Donnelly M.D. Ordering Physician: Sonia Donnelly M.D. Date of Service: 05/12/24 Procedure(s): PET skull to mid thigh Accession Number(s): [id number] cc: AILIN GREEN ; Sonia Donnelly M.D. [place] [address] Patient Name: NABEEL TRAN MRN: [id number] date: 1955 Sex: M Assigned Patient Location: PETCT Current Patient Location: PETCT Accession/Order Number: [id number] Exam Date: 05/12/2024 15:27 Report Date: 05/14/2024 [...] Signed By: 05/14/24 1610 DD/ 1607 TD/TT: Bench Manager: [place] [address] PET Report Signed Patient: RUDDY TRAN MR#: [id number] : 1955 Acct:[id number] Age/Sex: 68 / M ADM Date: 05/12/24 Loc: PETCT Attending Dr: Liu Donnelly M.D. Ordering Physician: Sonia Donnelly M.D. Date of Service: 05/12/24 Procedure(s): PET sk ull to mid thigh Accession Number(s): [id number] cc: AILIN GREEN ; Sonia Donnelly M.D. The [place] [id number] Patient Name: NABEEL TRAN MRN: [id number] date: 1955 Sex: M Assigned Patient Location: PETCT Current Patient Loca tion: PETCT Accession/Order Numb er: [id number] Exam Date: 15:27 Report Date: 05/14/2024 16:07 [...] Sanchez M.D. Signed By: 05/14/24 1610 DD/ 1600 TD/TT: Bench Manager: PROF Lemos(COMP METB) Reviewed date:04/23/2024 05:50:41 PM Interpretation: Performing Lab: Notes/Report: [facility] , Sodium 136 136-145 mmol/L Potassium 3.6 [...] Performing Lab: see note ML - [facility] LB CBC AUTO DIFF Reviewed date:04/23/2024 05:50:41 PM Interpretation: Performing Lab: Notes/Report: [facility] , White Blood Count 8.2 4.0-11.0 10 [...] 3/uL Performing Lab: see note ML - [facility] LB URIC ACID SERUM Reviewed date:04/23/2024 05:50:41 PM Interpretation: Performing Lab: Notes/Report: [facility] , Uric Acid 2.5 3.5-7.2 mg/dL Performing Lab: see note ML - [facility] LB LDH Reviewed date:04/23/2024 05:50:41 PM Interpretation: Performing Lab: Notes/Report: [facility] , Lactate Dehydrogenase 204 85-227 U/L Performing Lab: see note - [facility] LB Urine Culture, Routine Reviewed date:04/24/2024 04:45:33 PM Interpretation: Performing Lab: Notes/Report: [facility] , Urine Culture, Routine See Below For Report Urine Culture, Routine Urine Culture, Routine No growth Urine Culture, Routine Urine Culture, Routine Performed at: [facility] Urine Culture, Routine Urine Culture, Routine [address] [place], [place] [id number] Urine Culture, Routine Urine Culture, Routine Water Control Station Engineer: Jose Long PhD, Phone: [phone] Urine Culture, Routine Performing Lab: see note LC - [facility] LB SEE REPORT - Basket Mender Id information not found for OBX-specific livestock producer legend Sodium Urine Random Reviewed date:04/22/2024 03:16:03 PM Interpretation: Performing Lab: Notes/Report: [facility] , Sodium Urine Random 74 30-90 mmol/L Performing Lab: see note ML - [facility] LB PROF 14(COMP METB) Reviewed date:04/22/2024 07:36:22 AM Interpretation: Performing Lab: Notes/Report: [facility] , Sodium 133 136-145 mmol/L Potassium [...] 0.3 Performing Lab: see note ML - [facility] LB CBC AUTO DIFF Reviewed date:04/22/2024 07:36:22 AM Interpretation: Performing Lab: Notes/Report: [facility] , White Blood Count 8.9 4.0-11.0 [...] 3/uL Performing Lab: see note ML - [facility] LB Prothrombin Time INR Reviewed date:04/21/2024 09:21:08 PM Interpretation: Performing Lab: Notes/Report: [facility] , Prothrombin Time 12.2 9.0-11.6 sec INR 1.17 DESIRED INR: 2.0-3.0 CONDITIONS NOT LISTED BELOW 2.5-3.5 FOR PROSTHETIC HEART VALVE REPLACEMENT 2.5-3.5 RECURRENT THROMBOSIS Performing Lab: see note ML - [facility] LB PTT Reviewed date:04/21/2024 09:21:08 PM Interpretation: Performing Lab: Notes/Report: [facility] , Partial Thromboplastin Time 37.1 22.3-36.2 sec Performing Lab: see note - [facility] LB ECG 12 lead Reviewed date:04/22/2024 07:36:22 AM Interpretation: Performing Lab: Notes/Report: Source Facility: [facility] [place] [address] [place] [address] Electrocardiograph Report Signed Patient: NABEEL TRAN MR#: [id number] : 1955 Acct:[id number] Age/Sex: 68 / M ADM Date: 04/21/24 Loc: MS 231-[address]: Jason Damian M.D. Ordering Physician: Lauro Altamirano Date of Service: 04/21/24 Procedure(s): ECG 12 lead Accession Number(s): [id number] cc: [facility] Test Date: 2024-04-21 Pat Name: NABEEL TRAN Department: Room: - Gender: Male Registered Private Duty Nurse: : 1955 Requested By: AILIN GREEN Order Number: [id number] Reading MD: NITO SUNSHINE Measurements Intervals [place] Rate: 91 P: 54 MO: 176 QRS: 30 QRSD: 88 T: 39 QT: 358 QTc: 406 Interpretive Statements 1100 Sinus rhythm 1974 with frequent ectopic premature complexes 4068 Nonspecific Twave abnormality 9140 abnormal rhythm ECG No previous ECG available for comparison Electronically Signed On 04-21-2024 23:12:11 EDT by NITO SUNSHINE Dictated By: Nito Sunshine D.O. Signed By: 04/21/242311 DD/ 1326 TD/TT: Bench Manager: [place] [address] Electrocardiograph Report Signed Patient: RUDDY TRAN MR#: [id number] : 1955 Acct:[id number] Age/Sex: 68 / M ADM Date: 04/21/24 Loc: MS 231-[address]: Chioma Damian M.D. Ordering Physician: Lauro Altamirano Date of Service: 04/21/24 Procedure(s): ECG 12 lead Accession Number(s): [id number] cc: [facility] Test Date: 2024-04-21 Pat Name: NABEEL LAMAR Department: 97 Room: - Gender: Male Registered Private Duty Nurse: : 1955 Requ ested By: AILIN GREEN Order Number: [id number] Reading MD: NITO SUNSHINE Measurements Intervals [place] Rate: 91 P: 54 MO: 176 QRS: 30 QRSD: 88 T: 39 QT: 358 QTc: 406 Interpretive Statements 1100 Sinus rhythm 1974 with frequent ectopic premature complexes 4068 Nonspecific Twa ve abnormality 9140 abnormal rhy thm ECG No previous ECG avai lable for comparison Electronically Marsha d On 04-21-2024 23:12:11 EDT by NITO SUNSHINE Dictated By: Nito Sunshine D.O. Signed By: 04/21/242311 DD/ 1326 TD/TT: Bench Manager: EBV Antibody Profile Reviewed date:04/23/2024 08:50:57 AM [...] never develop antibodies to EBNA. Performed at: [address] [id number] Water Control Station Engineer: Neville Long PhD, Phone: [phone] Performing Lab: see note [facility] LB Cortisol Reviewed date:04/22/2024 09:19:24 AM Interpretation: Performing Lab: Notes/Report: [facility] , Cortisol 32.2 6.2-19.4 ug/dL Please Note: The reference interval and flagging for this test is for an AM collection. If this is a PM collection please use: Cortisol PM: 2.3-11.9 Performed at: - [facility] [id number] Water Control Station Engineer: Neville Long PhD, Phone: [phone] Performing Lab: see note [facility] Osmolality Reviewed date:04/25/2024 08:27:07 AM Interpretation: Performing Lab: Notes/Report: [facility] , Osmolality 283 280-301 mOsmol/kg Performed at: [facility] [address] [id number] Water Control Station Engineer: Ash Wilcox MD, Phone: [phone] Performing Lab: see note [facility] PROF 14(COMP METB) Reviewed date:04/21/2024 09:21:08 PM Interpretation: Performing Lab: Notes/Report: [facility] , Sodium 125 136-145 mmol/L Potassium [...] Ratio 0.3 Performing Lab: see note - [facility] LB CBC AUTO DIFF Reviewed date:04/21/2024 03:00:17 PM Interpretation: Performing Lab: Notes/Report: [facility] , White Blood Count 9.5 4.0-11.0 [...] 3/uL Performing Lab: see note ML - [facility] LB TSH Reviewed date:04/18/2024 01:44:59 PM Interpretation: Performing Lab: Notes/Report: [facility] , Thyroid Stimulating Hormone 0.919 0.358-3.740 uIU/mL Performing Lab: see note ML - [facility] LB T4 Reviewed date:04/18/2024 01:44:59 PM Interpretation: Performing Lab: Notes/Report: [facility] , T4 Thyroxine 6.80 4.50-12.10 ug/dL Performing Lab: see note - [facility] LB PROF 14(COMP METB) Reviewed date:04/18/2024 01:44:59 PM Interpretation: Performing Lab: Notes/Report: [facility] , Sodium 130 136-145 mmol/L Potassium [...] 0.3 Performing Lab: see note ML - [facility] FREE T3 Reviewed date:04/18/2024 01:44:59 PM Interpretation: Performing Lab: Notes/Report: [facility] , Free T3 1.01 2.18-3.98 pg/mL Performing Lab: see note ML - [facility] CBC AUTO DIFF Reviewed date:04/18/2024 01:44:59 PM Interpretation: Performing Lab: Notes/Report: [facility] , White Blood Count 10.6 4.0-11.0 [...] 8.7 9.5-13.5 fL Performing Lab: see note - [facility] US biopsy lymph node Reviewed date:04/29/2024 03:59:08 PM Interpretation: Performing Lab: Notes/Report: Source Facility: [facility]-[address] [place] [address] [address] Ultrasound Report Signed with Addenda Patient: NABEEL TRAN MR#: [id number] : 1955 Acct:[id number] Age/Sex: 68 / M ADM Date: 04/11/24 Loc: US Attending Dr: AILIN GREEN Ordering Physician: AILIN GREEN Date of Service: 04/11/24 Procedure(s): US biopsy lymph node Accession Number(s): [id number] cc: AILIN GREEN ADDENDUM The [address] [address] Patient Name: NABEEL TRAN MRN: [id number] date: 1955 Sex: M Assigned Patient Location: US Current Patient Location: Accession/Order Number: [id number] Exam Date: 04/11/2024 09:30 Report Date: 04/20/2024 18:51 At the request of: AILIN GREEN Procedure: US biopsy lymph node Begin Addendum #1 COLLECTED DATE: 04/11/2024 Final Diagnosis Report for [facility] [place], [place] Pathological Diagnosis: A. Right axillary lymph [...] 04/29/24903 Addendum Cosigned By: DD/ TD/TT: / [place] [address] Patient Name: NABEEL TRAN MRN: [id number] date: 1955 Sex: M Assigned Patient Location: US Current Patient Location: Accession/Order Number: [id number] Exam Date: 04/11/2024 09:30 Report Date: 04/11/2024 [...] Signed By: 04/11/24 1150 DD/ 1148 TD/TT: Bench Manager: The [address] [address] Ultrasound Report Signed with [place] Patient: RUDDY TRAN MR#: [id number] : 1955 Acct:[id number] Age/Sex: 68 / M ADM Date: 04/11/24 Loc: US Attending Dr: AILIN GREEN Ordering Physician: AILIN GREEN Date of Service: 04/11/24 Procedure(s): US bio psy lymph node Accession Number(s): [id number] cc: AILIN GREEN ADDENDUM The [address] [address] Patient Name: NABEEL TRAN MRN: [id number] date: 1955 Sex: M Assigned Patient Location: US Current Patient Location: Accession/Order Numb er: [id number] Exam Date: 04/11/2024 09:30 Report Date: 04/20/2024 18:51 At the request of: AILIN GREEN Procedure: US biopsy lymph node Begin Addendum #1 COLLECTED DATE: 04/11/2024 Final Diagnosis Report for [facility] [place], [place] Pathological Diagnosis: A. Right axillary ly [...] Addendum Cosigned By: DD/ TD/TT: / ADDENDUM S/ biopsy lymph node IMPRESSION: 1. Uneventful ultras ound guided fine needle aspiration (FNA). 2. Pathology results are pending. Electronically authenticated by: NABEEL STRANGE Date: 04/20/2024 18:51 Addendum Dictated By : Nabeel Strange M.D. Addendum Signed By: <Electronically signed by Nabeel Strange M.D.> 04/29/24[address] Addendum Cosigned By: DD/ TD/TT: / [place] [address] Patient Name: NABEEL TRAN MRN: [id number] date: 1955 Sex: M Assigned Patient Location: Current Patient Location: Accession/Order Numb er: [id number] Exam Date: 04/11/2024 09:30 Report Date: 04/11/2024 [...] Signed By: 04/11/24 1150 DD/ 1148 TD/TT: Bench Manager: CT CHEST W CON Reviewed date:04/01/2024 10:35:45 AM Interpretation: Performing Lab: Notes/Report: Source Facility: [place] [address] CT Scan Report Signed Patient: NABEEL TRAN MR#: [id number] : 1955 Acct:[id number] Age/Sex: 68 / M ADM Date: 03/29/24 Loc: CT Attending Dr: AILIN GREEN Ordering Physician: AILIN GREEN Date of Service: 03/29/24 Procedure(s): CT chest w con Accession Number(s): [id number] cc: AILIN GREEN [place] [address] Patient Name: NABEEL TRAN MRN: [id number] date: 1955 Sex: M Assigned Patient Location: CT Current Patient Location: Accession/Order Number: [id number] Exam Date: 03/29/2024 10:38 Report Date: 04/01/2024 [...] M.D. Signed By: 04/01/24521 DD/ 9 TD/TT: Bench Manager: [place] [address] CT Scan Report Signed Patient: RUDDY TRAN MR#: [id number] : 1955 Acct:[id number] Age/Sex: 68 / M ADM Date: 03/29/24 Loc: CT Attending Dr: AILIN GREEN Ordering Physician: AILIN GREEN Date of Service: 03/29/24 Procedure(s): CT [place] [facility] w con Accession Number(s): [id number] cc: AILIN GREEN [place] [address] Patient Name: NABEEL TRAN MRN: [id number] date: 1955 Sex: M Assigned Patient Location: CT Current Patient Location: Accession/Order Numb er: [id number] Exam Date: 03/29/2024 10:38 Report Date: 04/01/2024 [...] Dictated By: Nabeel Strange M.D. Signed By: 04/01/24 0522 DD/ 0520 TD/TT: Bench Manager: Occult Blood* Reviewed date:03/24/2024 12:38:01 PM Interpretation: Performing Lab: Notes/Report: [facility] , Occult Blood Negative Performing Lab: see note ML - [facility] LB IRON Reviewed date:04/18/2024 01:44:59 PM Interpretation: Performing Lab: Notes/Report: [facility] , Iron 21.0 65.0-175.0 ug/dL Performing Lab: see note ML - [facility] LB Rapid Plasma Reagin, Quant Reviewed date:08/18/2024 08:27:53 AM Interpretation: Performing Lab: Notes/Report: [facility] , Rapid Plasma Reagin, Quant Non Reactive [...] utilized, such as Treponema pallidum (Syphilis) Screening [place] (977417) or Rapid Plasma Reagin (RPR) Test With Reflex to Quantitative RPR and Confirmatory Treponema pallidum Antibodies (993914). Performed at: [address] [id number] Water Control Station Engineer: Neville Long PhD, Phone: [phone] Performing Lab: see note [facility] TSH Reviewed date:08/12/2024 04:06:27 PM Interpretation: Performing Lab: Notes/Report: [facility] , Thyroid Stimulating Hormone 1.628 0.358-3.740 uIU/mL Performing Lab: see note ML - [facility] LB GLYCOHEMOGLOBIN A1C Reviewed date:08/12/2024 04:06:55 PM Interpretation: Performing Lab: Notes/Report: [facility] , Glycohemoglobin A1C 6.0 4.5-6.2 % ADA RECOMMENDED LIMIT 4.0 - 6.0 ADA THERAPEUTIC TARGET < 7.0 ACTION SUGGESTED > 7.0 Estimated Average Glucose 126 Performing Lab: see note - [facility] LB COPPER, SERUM or PLASMA Reviewed date:08/18/2024 08:27:53 AM Interpretation: Performing Lab: Notes/Report: [facility] , Copper Level 132 69-132 ug/dL This test was developed and its performance characteristics determined by [facility]. It has not been cleared or approved by the Food and Drug Administration. Detection Limit = 5 Performed at: [address] [id number] Water Control Station Engineer: Ash Wilcox MD, Phone: [phone] Performing Lab: see note [facility] PROF 14(COMP METB) Reviewed date:08/18/2024 08:27:53 AM Interpretation: Performing Lab: Notes/Report: [facility] , Sodium 144 136-145 mmol/L Potassium [...] 0.9 Performing Lab: see note ML - [facility] LB LDH Reviewed date:08/18/2024 08:27:53 AM Interpretation: Performing Lab: Notes/Report: [facility] , Lactate Dehydrogenase 176 85-227 U/L Performing Lab: see note ML - [facility] LB CBC AUTO DIFF Reviewed date:08/18/2024 08:27:53 AM Interpretation: Performing Lab: Notes/Report: [facility] , White Blood Count 16.9 4.0-11.0 [...] 10.0 9.5-13.5 fL Performing Lab: see note - [facility] LB Manual Differential Reviewed date:08/18/2024 08:27:53 AM Interpretation: Performing Lab: Notes/Report: [facility] , Segmented Neutrophils % Manual 67.0 [...] 0.12 Anisocytosis 2+ Performing Lab: see note ML - [facility] LB Immunofixation, Serum Reviewed date:08/18/2024 08:27:53 AM Interpretation: Performing Lab: Notes/Report: [facility] , Immunofixation Result, Serum Comment: . Presence of monoclonal protein is unclear at this time. Suggest repeat in 3 to 6 months if clinically indicated. Immunoglobulin G, Qn, Serum 528 024-5051 mg/dL Immunoglobulin A, Qn, Serum 132 61-437 mg/dL Immunoglobulin M, Qn, Serum 26 20-172 mg/dL Result confirmed on concentration. Performed at: [facility] [id number] Water Control Station Engineer: Neville Long PhD, Phone: [phone] Performing Lab: see note - [facility] LB Vitamin B12 Reviewed date:08/13/2024 09:05:33 AM Interpretation: Performing Lab: Notes/Report: [facility] , Vitamin B12 1798 785-5298 pg/mL Performed at: [address] [id number] [employer] Control Station Engineer: Neville Long PhD, Phone: [phone] Performing Lab: see note LC - [facility] LB CRP Reviewed date:08/18/2024 08:27:53 AM Interpretation: Performing Lab: Notes/Report: [facility] , C Reactive Protein 0.60 <=0.50 mg/dL Performing Lab: see note ML - [facility] LB FERRITIN Reviewed date:08/18/2024 08:27:53 AM Interpretation: Performing Lab: Notes/Report: [facility] , Ferritin 1227.0 26.0-388.0 ng/mL Performing Lab: see note ML - [facility] LB IRON AND TIBC Reviewed date:08/18/2024 08:27:53 AM Interpretation: Performing Lab: Notes/Report: [facility] , Iron 130.0 65.0-175.0 ug/dL Total Iron Binding Capacity 279.0 250.0-450.0 ug/dL Percent Iron Saturation 46.6 Performing Lab: see note ML - [facility] LB CBC AUTO DIFF (Not yet revie wed by provider) Interpretation: Performing Lab: Notes/Report: [facility] , White Blood Count 13.5 4.0-11.0 10 [...] Performing Lab: see note ML - [facility] LB LDH (Not yet reviewed by pro vider) Interpretation: Performing Lab: Notes/Report: [facility] , Lactate Dehydrogenase 162 85-227 U/L Performing Lab: see note ML - [facility] LB PROF 14(COMP METB) (Not yet reviewed by provider) Interpretation: Performing Lab: Notes/Report: [facility] , Sodium 140 136-145 mmol/L Potassium [...] 1.0 Performing Lab: see note ML - [facility] LB Manual Differential (Not yet reviewed by provider) Interpretation: Performing Lab: Notes/Report: [facility] , Segmented Neutrophils % Manual 63.0 [...] 1+ Performing Lab: see note ML - [facility] LB CA echo doppler complete Reviewed date:08/27/2024 12:32:14 PM Interpretation: Performing Lab: Notes/Report: Source Facility: [place] [address] Cardiology Report Signed Patient: NABEEL TRAN MR#: [id number] : 1955 Acct:[id number] Age/Sex: 69 / M ADM Date: 08/25/24 Loc: CARD Attending Dr: FABIOLA BENDER Ordering Physician: FABIOLA BENDER Date of Service: 08/25/24 Procedure(s): CA echo doppler complete Accession Number(s): [id number] cc: FABIOLA BENDER; AILIN GREEN Patient Name: NABEEL TRAN MR#: [id number] : 1955 Exam Date: 08/25/2024 Ordering Doctor: [...] Area (VTI): 1.63 cm2, 1.79 cm2 Deceleration Fallon: 2.62 m/s2 Pressure Half-Time: 478.16 ms Peak [...] MANUEL Signed By: 08/26/241906 DD/ 05 TD/TT: Bench Manager: [place] [address] Cardiology Report Signed Patient: RUDDY TRAN MR#: [id number] : 1955 Acct:[id number] Age/Sex: 69 / M ADM Date: 08/25/24 Loc: CARD Attending Dr: DESI BENDER Ordering Physician: FABIOLA BENDER Date of Service: 08/25/24 Procedure(s): CA ech o doppler complete Accession Number(s): [id number] cc: REAL BENDER; AILIN GREEN Patient Name: NABEEL TRAN MR#: [id number] : 1955 Exam Date: 08/25/2024 Ordering Doctor: [...] Area (VTI): 1.63 cm2, 1.79 cm2 Deceleration Fallon: 2.62 m/s2 Pressure Half-Time: 478.16 ms Peak [...] MANUEL Signed By: 08/26/241906 DD/ 05 TD/TT: Bench Manager: CBC AUTO DIFF (Not yet revie wed by provider) Interpretation: Performing Lab: Notes/Report: [facility] , White Blood Count 18.1 4.0-11.0 [...] Performing Lab: see note ML - [facility] LB LDH (Not yet reviewed by pro vider) Interpretation: Performing Lab: Notes/Report: [facility] , Lactate Dehydrogenase 158 85-227 U/L Performing Lab: see note ML - [facility] LB PROF 14(COMP METB) (Not yet reviewed by provider) Interpretation: Performing Lab: Notes/Report: [facility] , Sodium 139 136-145 mmol/L Potassium [...] Performing Lab: see note ML - [facility] LB Manual Differential (Not yet reviewed by provider) Interpretation: Performing Lab: Notes/Report: [facility] , Segmented Neutrophils % Manual 62.0 [...] Performing Lab: see note ML - [facility] LB CBC AUTO DIFF (Not yet revie wed by provider) Interpretation: Performing Lab: Notes/Report: [facility] , White Blood Count 17.5 4.0-11.0 [...] Performing Lab: see note ML - [facility] LB CBC AUTO DIFF (Not yet revie wed by provider) Interpretation: Performing Lab: Notes/Report: [facility] , White Blood Count 2.3 4.0-11.0 [...] 10.2 9.5-13.5 fL Performing Lab: see note - [facility] LB MAGNESIUM (Not yet reviewed by provider) Interpretation: Performing Lab: Notes/Report: [facility] , Magnesium 1.9 1.8-2.4 mg/dL Performing Lab: see note - [facility] LB PROF 14(COMP METB) (Not yet reviewed by provider) Interpretation: Performing Lab: Notes/Report: [facility] , Sodium 141 136-145 mmol/L Potassium [...] Performing Lab: see note ML - [facility] LB Manual Differential (Not yet reviewed by provider) Interpretation: Performing Lab: Notes/Report: [facility] , Segmented Neutrophils % Manual 40.0 [...] Performing Lab: see note ML - [facility] LB CBC AUTO DIFF (Not yet revie wed by provider) Interpretation: Performing Lab: Notes/Report: [facility] , White Blood Count 7.6 4.0-11.0 [...] 3/uL Performing Lab: see note ML - [facility] LB CRP (Not yet reviewed by pro vider) Interpretation: Performing Lab: Notes/Report: [facility] , C Reactive Protein <0.50 <=0.50 mg/dL Performing Lab: see note ML - [facility] LB FERRITIN (Not yet reviewed b y provider) Interpretation: Performing Lab: Notes/Report: [facility] , Ferritin 158.0 26.0-388.0 ng/mL Performing Lab: see note ML - [facility] LB IRON AND TIBC (Not yet revie wed by provider) Interpretation: Performing Lab: Notes/Report: [facility] , Iron 104.0 65.0-175.0 ug/dL Total Iron Binding Capacity 268.0 250.0-450.0 ug/dL Percent Iron Saturation 38.8 Performing Lab: see note ML - [facility] LB LDH (Not yet reviewed by pro vider) Interpretation: Performing Lab: Notes/Report: [facility] , Lactate Dehydrogenase 208 85-227 U/L Performing Lab: see note ML - [facility] LB PROF 14(COMP METB) (Not yet reviewed by provider) Interpretation: Performing Lab: Notes/Report: [facility] , Sodium 146 136-145 mmol/L Potassium [...] Performing Lab: see note ML - [facility] LB Erythrocyte Sedimentation Ra te (Not yet reviewed by provider) Interpretation: Performing Lab: Notes/Report: [facility] , Erythrocyte Sedimentation Rate 11 <=20 mm/hr Performing Lab: see note ML - [facility] LB PET skull to mid thigh (Not yet reviewed by provider) Interpretation: Performing Lab: Notes/Report: Source Facility: [facility] [place] [address] [place] [address] PET Report Signed Patient: NABEEL TRAN MR#: [id number] : 1955 Acct:[id number] Age/Sex: 69 / M ADM Date: 12/15/24 Loc: PETCT Attending Dr: Sonia Donnelly M.D. Ordering Physician: Sonia Donnelly M.D. Date of Service: 12/15/24 Procedure(s): PET skull to mid thigh Accession Number(s): [id number] cc: AILIN GREEN ; Sonia Donnelly M.D. [place] [address] Patient Name: NABEEL TRAN MRN: [id number] date: 1955 Sex: M Assigned Patient Location: PETCT Current Patient Location: Accession/Order Number: [id number] Exam Date: 12/16/2024 09:23 Report Date: 12/16/2024 [...] Guidry M.D. 12/16/2024 9:43 AM Dictation Location: [place] [address] Electronically authenticated by: [id number] Y Date: 12/16/2024 09:43 Dictated By: Evelyn Guidry M.D. Signed By: 12/16/24 0945 DD/ TD/TT: Bench Manager: [place] [address] PET Report Signed Patient: RUDDY TRAN MR#: [id number] : 1955 Acct:[id number] Age/Sex: 69 / M ADM Date: 12/15/24 Loc: PETCT Attending Dr: Liu Donnelly M.D. Ordering Physician: Sonia Donnelly M.D. Date of Service: 12/15/24 Procedure(s): PET sk ull to mid thigh Accession Number(s): [id number] cc: AILIN GREEN ; Sonia Donnelly M.D. [place] [id number] Patient Name: NABEEL TRAN MRN: [id number] date: 1955 Sex: M Assigned Patient Location: PETCT Current Patient Location: Accession/Order Maricarmen er: [id number] Exam Date: 12/16/2024 09:23 Report Date: 12/16/2024 [...] improvement of other adenopathy seen at t hat site at the time of the comparison. [...] Guidry M.D. 12/16/2024 9:43 AM Dictation Location: [place] [address] Electronically authenticated by: [id number] Y Date: 12/16/2024 09:43 Dictated By: Evelyn Guidry M.D. Signed By: 12/16/2445 DD/ 2 TD/TT: Bench Manager: CBC AUTO DIFF (Not yet revie wed by provider) Interpretation: Performing Lab: Notes/Report: [facility] , White Blood Count 7.4 4.0-11.0 [...] Performing Lab: see note ML - [facility] LB LDH (Not yet reviewed by pro vider) Interpretation: Performing Lab: Notes/Report: [facility] , Lactate Dehydrogenase 127 85-227 U/L Performing Lab: see note ML - [facility] LB PROF 14(COMP METB) (Not yet reviewed by provider) Interpretation: Performing Lab: Notes/Report: [facility] , Sodium 144 136-145 mmol/L Potassium [...] Performing Lab: see note ML - [facility] LB LDH (Not yet reviewed by pro vider) Interpretation: Performing Lab: Notes/Report: [facility] , Lactate Dehydrogenase 137 85-227 U/L Performing Lab: see note ML - [facility] LB PROF 14(COMP METB) (Not yet reviewed by provider) Interpretation: Performing Lab: Notes/Report: [facility] , Sodium 145 136-145 mmol/L Potassium 4.5 3.5-5.1 mmol/L Chloride 106 98-107 mmol/L Carbon Dioxide 32.6 21.0-32.0 mmol/L Anion Gap 10.9 Glucose 121 74-106 mg/dL Blood Urea Nitrogen 20.0 7.0-18.0 mg/dL Creatinine 0.88 0.70-1.30 mg/dL Estimated GFR ( Samantha >60 >=60 mL/min/1.73m 2 Estimated GFR (Non- Aury >60 >=60 mL/min/1.73m 2 BUN Creatinine Ratio 22.7 Calcium 9.3 8.5-10.1 mg/dL Bilirubin Total 0.9 0.2-1.0 mg/dL Aspartate Amino Transferase 30 15-37 U/L Alanine Aminotransferase 44 16-63 U/L Alkaline Phosphatase 85 46-116 U/L Total Protein 7.0 6.4-8.2 g/dL Albumin Level 3.6 3.4-5.0 g/dL Globulin 3.4 Albumin Globulin Ratio 1.1 Performing Lab: see note ML - [facility] CA echo doppler complete Reviewed date:02/23/2025 04:55:18 PM Interpretation: Performing Lab: Notes/Report: Source Facility: [place] [address] Cardiology Report Signed Patient: NABEEL TRAN MR#: [id number] : 1955 Acct:[id number] Age/Sex: 69 / M ADM Date: 02/20/25 Loc: CARD Attending Dr: JEROD MANUEL Ordering Physician: JEROD MANUEL Date of Service: 02/20/25 Procedure(s): CA echo doppler complete Accession Number(s): [id number] cc: AILIN GREEN ; JEROD MANUEL Patient Name: NABEEL TRAN MR#: [id number] : 1955 Exam Date: 02/20/2025 Ordering Doctor: DR JEROD MANUEL M.D. ECHOCARDIOGRAM REPORT PROCEDURE: CA ECHO DOPPLER COMPLETE INDICATIONS: Aortic and Mitral regurgitation, Aortic stenosis COMPARISON: None. DESCRIPTION: COMPLETE ECHOCARDIOGRAM Real-time transthoracic echocardiography with 2D, M-mode, spectral and color flow Doppler performed. QUALITY: Technical quality was good. LEFT VENTRICLE: Normal chamber size. Mild concentric left ventricular hypertrophy. Global left ventricular systolic function is normal without segmental motion abnormalities. Calculated left ventricular ejection fraction is 65%. LV EF: 65% DIASTOLIC: Normal diastolic function. ATRIAL SEPTUM: Appears intact LEFT ATRIUM: Moderate dilatation. RIGHT ATRIUM: Mild dilatation. RIGHT VENTRICLE: Normal chamber size. Normal right ventricular systolic function. TRICUSPID VALVE:Normal mobility and thickness. No stenosis with mild regurgitation. No evidence of pulmonary hypertension. RVSP 32mmHg. MITRAL VALVE: Mildly thickened with normal mobility with possible prolapse. No evidence of mitral valve stenosis. There is no mitral annular calcification. Mild to moderate eccentric mitral regurgitation. AORTIC VALVE: Normal trileaflet appearance. Mildly calcified aortic valve. Mildly diminished mobility. Doppler velocity suggest mild aortic valve stenosis. DVI 0.4, REBEKAH 1.6cm2, Peak velocity 2.3m/s, Peak and mean gradient 21/10mmHg. mild aortic regurgitation. AORTIC ROOT: Normal diameter and appearance. PULMONIC VALVE:Normal thickness and mobility. No stenosis. No regurgitation. PERICARDIUM: No evidence of pericardial effusion. IVC: Not well visualized. PLEURA: CONCLUSION: Mild concentric left ventricle hypertrophy Normal left ventricular systolic function without wall motion abnormalities, ejection fraction 65% Normal left ventricular diastolic function Normal right ventricle size and systolic function Normal right sided pressures Thickened mitral valve with possible prolapse Mild to moderate eccentric mitral regurgitation Mild aortic stenosis Mild aortic regurgitation Mild tricuspid regurgitation Adult Echocardiography Procedure Report Left Ventricle LVEDD (3.7 - 5.6 cm): 5.11 cm LVESD (2.2 - 4.0 cm): 3.43 cm LVIVS thickness (0.6 - 1.2 cm): 1.24 cm LVPW thickness (0.5 - 1.0 cm): 1.29 cm e': 0.13 m/s E - e': 7.69 LVOT Max Gradient: 3.42 mm[Hg], 2.53 mm[Hg] LVOT Area (cm2): 0.86 m/s Peak Velocity (LVOT): 0.92 m/s, 0.80 m/s Mean Velocity (LVOT): 0.55 m/s LVOT Diameter 2.40 cm Left Ventricular Ejection Fraction: 64.91 % Left Atrium LA Volume Index (2D A2C): 53.57 ml/m2 Left Atrium Systolic Dimension: 4.66 cm Mitral Valve MV E to A Ratio: 1.33 Mitral Valve A-Wave Peak Velocity: 0.77 m/s Mitral Valve E-Wave Peak Velocity: 1.03 m/s Right Ventricle RV Internal Diastolic Dimension: 3.62 cm Aorta AO Root Diam: 3.67 cm Ascending Ao Diam: 3.22 cm Aortic Valve AoV Area (Peak Walt): 1.79 cm2, 1.81 cm2, 1.64 cm2 AoV Area (VTI): 1.84 cm2, 1.76 cm2, 1.81 cm2 Peak Velocity(Antegrade Flow): 2.31 m/s, 2.20 m/s, 2.00 m/s Peak Gradient(Antegrade Flow): 21.35 mm[Hg], 19.38 mm[Hg], 16.04 mm[Hg] Mean Velocity(Antegrade Flow): 1.50 m/s, 1.48 m/s, 1.12 m/s Mean Gradient(Antegrade Flow): 10.42 mm[Hg], 10.11 mm[Hg], 6.51 mm[Hg] Velocity Time Integral: 52.44 cm, 47.90 cm, 45.64 cm Tricuspid Valve Peak Velocity (Regurgitant Flow): 2.46 m/s, 2.66 m/s, 2.71 m/s Pulmonic Valve Mean Gradient: 2.01 mm[Hg], 1.38 mm[Hg] Mean Velocity: 0.65 m/s, 0.53 m/s Peak Velocity: 1.02 m/s Peak Gradient: 5.02 mm[Hg], 3.32 mm[Hg] Right Atrium Right Atrium Systolic volume 34.31 ml, 34.31 ml Dictated by: Albina Chris MD on 02/22/2025 at 17:52 Approved by: Albina Chris MD on 02/22/2025 at 18:04 Dictated By: Albina Chris M.D. Signed By: 02/22/251805 DD/ 03 TD/TT: Bench Manager: [place] [address] Cardiology Report Signed Patient: RUDDY TRAN MR#: [id number] : 1955 Acct:[id number] Age/Sex: 69 / M ADM Date: 02/20/25 Loc: CARD Attending Dr: JEROD MANUEL Ordering Physician: JEROD MANUEL Date of Service: 02/20/25 Procedure(s): CA ech o doppler complete Accession Number(s): [id number] cc: AILIN GREEN ; JEROD MANUEL Patient Name: NABEEL TRAN MR#: [id number] : 1955 Exam Date: 02/20/2025 Ordering Doctor: DR JEROD MANUEL M.D. ECHOCARDIOGRAM REPORT PROCEDURE: CA ECHO DOPPLER COMPLETE INDICATIONS: Aortic and Mitral regurgitation, Aortic stenosis COMPARISON: None. DESCRIPTION: COMPLET E ECHOCARDIOGRAM Real-time transthoracic echocardiography wit h 2D, M-mode, spectral and color flow Doppler performed. QUALITY: Technical quality was good. LEFT VENTRICLE: Norm al chamber size. Mild concentric left ventricular hypertrophy. Global left ventricular systolic function is normal without segmental motion abnormalities. Calculated left ventricular ejection fraction is 65%. LV EF: 65% DIASTOLIC: Normal diastolic function. ATRIAL SEPTUM: Appea rs intact LEFT ATRIUM: Moderat e dilatation. RIGHT ATRIUM: Mild dilatation. RIGHT VENTRICLE: Nor mal chamber size. Normal right ventricular systolic function. TRICUSPID VALVE:Norm al mobility and thickness. No stenosis with mild regurgitation. No evidence of pulmonary hypertension. RVSP 32mmHg. MITRAL VALVE: Mildly thickened with normal mobility with possible prolapse. No evidenc e of mitral valve stenosis. There is no mitral annular calcification. Mild to moderate eccentric mitral regurgitation. AORTIC VALVE: Normal trileaflet appearance. Mildly calcified aortic valve. Mildly diminished mobility. Doppler velocity suggest mild aortic valve stenosis. DVI 0.4, A VA 1.6cm2, Peak velocity 2.3m/s, Peak and mean gradient 21/10mmHg. mild aort ic regurgitation. AORTIC ROOT: Normal diameter and appearance. PULMONIC VALVE:Binta l thickness and mobility. No stenosis. No regurgitation. PERICARDIUM: No evid ence of pericardial effusion. IVC: Not well visualized. PLEURA: CONCLUSION: Mild concentric left ventricle hypertrophy Normal left ventricu lar systolic function without wall motion abnormalities, ejection fraction 65% Normal left ventricu lar diastolic function Normal right ventric le size and systolic function Normal right sided pressures Thickened mitral isrrael ve with possible prolapse Mild to moderate eccentric mitral regurgitation Mild aortic stenosis Mild aortic regurgitation Mild tricuspid regurgitation Adult Echocardiograp hy Procedure Report Left Ventricle LVEDD (3.7 - 5.6 cm) : 5.11 cm LVESD (2.2 - 4.0 cm) : 3.43 cm LVIVS thickness (0.6 - 1.2 cm): 1.24 cm LVPW thickness (0.5 - 1.0 cm): 1.29 cm e': 0.13 m/s E - e': 7.69 LVOT Max Gradient: 3 .42 mm[Hg], 2.53 mm[Hg] LVOT Area (cm2): 0.86 m/s Peak Velocity (LVOT) : 0.92 m/s, 0.80 m/s Mean Velocity (LVOT) : 0.55 m/s LVOT Diameter 2.40 cm Left Ventricular Eje ction Fraction: 64.91 % Left Atrium LA Volume Index (2D A2C): 53.57 ml/m2 Left Atrium Systolic Dimension: 4.66 cm Mitral Valve MV E to A Ratio: 1.33 Mitral Valve A-Wave Peak Velocity: 0.77 m/s Mitral Valve E-Wave Peak Velocity: 1.03 m/s Right Ventricle RV Internal Diastoli c Dimension: 3.62 cm Aorta AO Root Diam: 3.67 cm Ascending Ao Diam: 3 .22 cm Aortic Valve AoV Area (Peak Walt): 1.79 cm2, 1.81 cm2, 1.64 cm2 AoV Area (VTI): 1.84 cm2, 1.76 cm2, 1.81 cm2 Peak Velocity(Antegr julien Flow): 2.31 m/s, 2.20 m/s, 2.00 m/s Peak Gradient(Antegr julien Flow): 21.35 mm[Hg], 19.38 mm[Hg], 16.04 mm[Hg] Mean Velocity(Antegr julien Flow): 1.50 m/s, 1.48 m/s, 1.12 m/s Mean Gradient(Antegr julien Flow): 10.42 mm[Hg], 10.11 mm[Hg], 6.51 mm[Hg] Velocity Time Integr al: 52.44 cm, 47.90 cm, 45.64 cm Tricuspid Valve Peak Velocity (Regurgitant Flow): 2.46 m/s, 2.66 m/s, 2.71 m/s Pulmonic Valve Mean Gradient: 2.01 mm[Hg], 1.38 mm[Hg] Mean Velocity: 0.65 m/s, 0.53 m/s Peak Velocity: 1.02 m/s Peak Gradient: 5.02 mm[Hg], 3.32 mm[Hg] Right Atrium Right Atrium Systoli c volume 34.31 ml, 34.31 ml Dictated by: Albina Chris MD on 02/22/2025 at 17:52 Approved by: Albina Chris MD on 02/22/2025 at 18:04 Dictated By: Albina Chris M.D. Signed By: 02/22/251805 DD/ 03 TD/TT: Bench Manager: Reason For Referral Diagnosis 1 Hearing loss (H91.90 ) Referral Organization [facility] Referring Provider First Name Ailin Referring Provider Last Name Taco Referring Provider [facility] Referred Provider Eddie Sun Referred Provider Specialty Otolaryngolo gy Referral Priority Routine Diagnosis 1 Unsteady gait (R26.8 1) Referral Organization [facility] Referring Provider First Name Ailin Referring Provider Last Name [facility] Referring Provider [facility] Referred Provider [facility], Physical Therap y Referred Provider Specialty Physical Med icine and Rehabilitation Referral Priority Routine Reason please schedule JOAQUIN Diagnosis 1 Unsteady gait (R26.8 1) Diagnosis 2 Generalized weakness (R53.1) Referral Organization [facility] Referring Provider First Name Ailin Referring Provider Last Name [facility] Referring Provider [facility] Referred Provider Kathleen Chester Referred Provider Specialty Neurology Referral Priority Routine Diagnosis 1 Hearing loss (H91.90 ) Diagnosis 2 Bilateral impacted c erumen (H61.23) Referral Organization [facility] Referring Provider First Name Ailin Referring Provider Last Name [facility] Referring Provider [facility] Referred Provider Fabiola Larkin Referred Provider Specialty [...] Orally Once a day Active Dexcom G7 Refractive Surgeon - Use transmitter to monitor glucose daily [...] day for 90 days 06/10/2024 Active Pen [place] 32G X 5 MM Use pen needles [...] 4 MG TAKE 1 TABLET BY MO UTH ONCE DAILY NEEDED for 60 Active Januvia [...] Problem Status W/U Status Risk Notes Problem [id number] Hodgkin lymphoma , unspecified, unspecified site (C81.90) Active confirmed Problem Claustrophobia (21371278) Claustrophobia (F40.240) Active confirmed Problem Hypothyroidism (96123090) Hypothyroidism (E03.9) Active confirmed Problem Atrial fibrillation (disorder) (89570212) Afib (I48.91) Active confirmed Problem Hypertension (43645624) HTN (hypertension) (I10) Active confirmed Problem Anemia (083093204) Anemia (D64.9) Active confir med Problem Peripheral neuropathy (340290786) Peripheral neuropathy (G62.9) Active confirmed Problem Atrial fibrillation (63344752) Atrial fibrillation (I48.91) Active confirmed Problem Hearing loss (38431132) Hearing loss (H91.90) Active confirmed Problem Acquired hypothyroidism (315113979) Acquired hypothyroidism (E03.9) Active confirmed Problem Iron deficiency anemia (45842043) Iron deficiency anemia (D50.9) Active confirmed Problem Glucosuria (73149368) Glucosuria (R81) Active confirmed Problem Supraventricular arrhythmia (05088875) Supraventricular arrhythmia (I49.9) Active confirmed Problem Unsteady gait (78902095) Unsteady gait (R26.81) Active confirmed Problem Acoustic neuroma (722823372) Acoustic neuroma (D33.3) Active confirmed Problem Hodgkin lymphoma (3144473355) Hodgkin lymphoma (C81.90) Active confirmed Problem Hearing loss (30778466) Deafness in right ear (H91.91) Active confirmed Problem Adult failure to thrive syndrome (381264739) Failure to thrive in adult (R62.7) Active confirmed Problem Lower urinary tract symptoms due to benign prostatic hypertrophy (12710364404732) BPH with obstruction/lower urinary tract symptoms (N40.1) Active confirmed Problem Severe protein calorie malnutrition (126798338) Severe protein-calorie malnutrition (E43) Active confirmed Problem Tunneled central venous catheter in situ (709456800) Port-a-cath in place (Z95.828) Active confirmed Problem Hodgkins lymphom a (C81.90) Active confirmed Problem Lower urinary tract obstructive syndrome (03114372) Lower urinary obstructive symptom (N13.9) Active confirmed Problem Lung function restrictive (finding) (278711390) Restrictive pattern present on pulmonary function testing (R94.2) Active confirmed Problem Diabetes mellitus (83665460) Diabetes mellitus (E11.9) Active confirmed Problem Hyperglycemia due to diabetes mellitus (540882084) Hyperglycemia due to diabetes mellitus (E11.65) Active confirmed Vital Signs Blood pressure diastolic 58 mm Hg 08/13/2024 Height 74 in 08/13/2024 Blood pressure systolic 100 mm Hg 08/13/2024 Weight 179.2 lbs 08/13/2024 BMI 23.01 kg/m2 08/13/2024 Procedures Procedure Date Ordered Date Performed Result Body Sit e Cerumen Removal - performed 05/01/2024 N/A Encounters Encounter Location Date Provider Diagnosis [facility] [address] [place] [address] 02/27/2025 Ailin Green [facility] [address] [place] [address] 07/24/2024 Ailin Green [facility] [address] [place] [address] 07/24/[address] [facility] [address] [place] [address] 08/07/[address] [facility] [address] [place] [address] 08/12/[address] [facility] [address] [place] [address] 08/13/[address] [facility] [address] [place] [address] 11/11/[address] [facility] [address] [place] [address] 06/12/[address] [facility] [address] [place] [address] 06/13/2024 Ailin Green [facility] [address] [place] [address] 06/17/[address] [facility] [address] [place] [address] 06/20/[address] [facility] [address] [place] [address] 06/23/[address] [facility] [address] [place] [address] 07/17/2024 Ailin Green [facility] [address] [place] [address] 05/28/[address] [facility] [address] [place] [address] 05/30/2024 Ailin Green Hyperglycemia due to diabetes mellitus E11.65 and HTN (hypertension) I10 [facility] [address] [place] [address] 05/30/2024 Ailin Green Nausea R11.0 and Hyperglycemia due to diabetes mellitus E11.65 [facility] [address] [facility] [place] [address] 06/05/2024 Ailin Green [facility] [address] [facility] [place] [address] 06/06/2024 Ailin Green Hyperglycemia due to diabetes mellitus E11.65 [facility] [address] [facility] [place] [address] 06/10/[address] [facility] [address] [facility] [place] [address] 04/23/[address] [facility] [address] [facility] [place] [address] 04/24/2024 Ailin Green Hearing loss H91.90 [facility] [address] [facility] [place] [address] 05/01/[address] [facility] [address] [facility] [place] [address] 05/12/[address] [facility] [address] [facility] [place] [address] 05/15/2024 Ailin Green Unsteady gait R26.81 ; Generalized weakness R53.1 ; Hearing loss H91.90 and Bilateral impacted cerumen H61.23 [facility] [address] [facility] [place] [address] 05/19/[address] [facility] [address] [facility] [place] [address] 04/01/[address] [facility] [address] [facility] [place] [address] 04/04/2024 Ailin Green [facility] [address] [facility] [place] [address] 04/11/2024 Ailin Green Hyperglycemia due to diabetes mellitus E11.65 [facility] [address] [facility] [place] [address] 04/18/2024 Ailin Green Elevated liver enzym es R74.8 and Acoustic neuroma D33.3 [facility] [address] [facility] [place] [address] 04/21/2024 Ailin Green Iron deficiency anem ia D50.[address] [facility] [address] [facility] [place] [address] 04/23/[address] [facility] [address] [facility] [place] [address] 03/24/[address] [facility] [address] [facility] [place] [address] 03/25/2024 Ailin Green Enlarged lymph node R59.1 [facility] [address] [facility] [place] [address] 03/28/2024 Ailin Green Hyperglycemia due to diabetes mellitus E11.[address] [facility] [address] [facility] [place] [address] 07/01/2024 [facility] [address] [facility] [place] [address] 07/15/2024 Sonia [facility] [address] [facility] [place] [address] 08/13/2024 Ailin Green Diabetes mellitus E1 1.9 ; Hearing loss H91.90 and Unsteady gait R26.81 [facility] [address] [facility] [place] [address] 05/01/2024 Ailin Green Nausea R11.0 ; Cerum en impaction H61.20 ; HTN (hypertension) I10 ; Claustrophobia F40.240 and Bilateral impacted cerumen H61.23 [facility] [address] [place] [address] 04/16/2024 Ailin Green Weight loss R63.4 ; Low BP I95.9 and Fatigue R53.[address] [facility] [address] [facility] [place] [address] 07/22/2024 [facility] [address] [facility] [place] [address] 08/19/[address] [facility] [address] [facility] [place] [address] 11/18/[address] [facility] [address] [facility] [place] [address] 09/23/[address] [facility] [address] [facility] [place] [address] 05/27/[address] [facility] [address] [facility] [place] [address] 06/10/[address] [facility] [address] [facility] [place] [address] 06/24/[address] [facility] [address] [facility] [place] [address] 04/29/2024 Sonia Andrzej [facility] [address] [facility] [place] [address] 05/15/2024 Sonia Andrzej [facility] [address] [facility] [place] [address] 07/01/2024 Sonia Andrzej [facility] [address] [facility] [place] [address] 12/23/[address] [facility] [address] [facility] [place] [address] 02/17/[address] [facility] [address] [facility] [place] [address] 09/02/[address] [facility] [address] [facility] [place] [address] 07/22/[address] [facility] [address] [facility] [place] [address] 01/26/[address] [facility] [address] [facility] [place] [address] 07/16/[address] [facility] [address] [facility] [place] [address] 07/17/[address] [facility] [address] [facility] [place] [address] 08/05/2024 [facility] [address] [facility] [place] [address] 08/19/2024 [facility] [address] [facility] [place] [address] 09/02/2024 [facility] [address] [place] [address] 09/23/2024 [facility] [address] [facility] [place] [address] 10/07/2024 [facility] [address] [place] [address] 06/10/2024 [facility] [address] [place] [address] 06/17/2024 Sonia Donnelly Assessments Encounter Date Diagnosis (ICD Code) Assessment Notes Treatment Notes Treatment Clinical Notes Section Notes 04/16/2024 Weight loss (ICD-10 - R63.4) loss of appetite yesterday ate 2 eggs, applesauce for lunch that was it 04/16/2024 Low BP (ICD-10 - I95.9) saw cardiology 03/28 last stopped amlodipine due to low BP, patient not sure if he stopped taking will call with med list 03/25/2024 Enlarged lymph node (ICD-10 - R59.1) [...] wearing hearing aids has fu with ENT [place] upcoming 05/01/2024 HTN (hypertension) (ICD-10 - I10) BP still low decrease losartan, states stopped amlodipine monitor and report BP next week 05/15/2024 Hearing loss (ICD-10 - H91.90) 04/16/2024 Fatigue (ICD-10 - R53.83) labs defers PT at this time increase calorie intake 05/15/2024 Bilateral impacted cerumen (ICD-10 - H61.23) 05/01/2024 Claustrophobia (ICD-10 - F40.240) upcoming MRI, PET 08/13/2024 Unsteady gait (ICD-10 - R26.81) willing to start PT now, Dr Arenas ordered pt states 05/01/2024 Bilateral impacted cerumen (ICD-10 - H61.23) 04/16/2024 Other discussed ER for eval, patient resistant to idea encouraged to go to ER if feeling worse, sx worsen 05/01/2024 Other monitor BS and report next week Plan Of Treatment Pending Test Test Name Order Date CMP (COMPLETE METABOLIC PANEL) 4 CMP (COMPLETE METABOLIC PANEL) 4 CMP (COMPLETE METABOLIC PANEL) 4 UA (URINALYSIS, COMPLETE) 08/30/2023 HEMOGLOBIN A1C (GLYCO) [...] AUTO DIFF 01/26/2025 CBC AUTO DIFF 02/17/2025 CBC AUTO DIFF 02/20/2025 CRP 11/18/2024 FERRITIN 11/18/2024 HEPATITIS PANEL, ACUTE 04/18/2024 IRON AND TIBC 11/18/2024 LDH 12/23/2024 LDH 01/26/2025 LDH 09/02/2024 LDH 08/19/2024 LDH 09/23/2024 LDH 11/18/2024 LDH 02/20/2025 LDH 02/17/2025 MAGNESIUM 10/07/2024 PROF 14(COMP METB) 11/18/2024 PROF 14(COMP METB) 10/07/2024 PROF 14(COMP METB) 09/02/2024 PROF 14(COMP METB) 09/23/2024 PROF 14(COMP METB) 01/26/2025 PROF 14(COMP METB) 02/20/2025 PROF 14(COMP METB) 02/17/2025 PROF 14(COMP METB) 12/23/2024 PROF 14(COMP METB) 08/19/2024 US BLADDER 08/30/2023 US EXT NON VASC LIMITED RT 03/19/2024 THYROID PANEL (T4/TSH/FREE T3) 4 THYROID PANEL (T4/TSH/FREE T3) 4 THYROID PANEL (T4/TSH/FREE T3) 4 Erythrocyte Sedimentation Rate 5 Manual Differential 09/02/2024 Manual Differential 08/19/2024 Manual Differential 10/07/2024 PET skull to mid thigh 09/15/2024 PET skull to mid thigh 12/16/2024 CEA 04/18/2024 CA 19-9 04/18/2024 CT soft tissue neck w con 02/20/2025 CT chest wo/w con 02/20/2025 Next Appt Details Provider Name:Sonia Donnelly , 06/09/2025 11:00:00 AM, [address] [place], [address], Insurance Providers Payer Name Payer Address Payer Phone Subscriber Number Group Number Insured Name Patient Relationship to Insured Coverage Start Date Coverage End Date [facility] [employer] [address] [address] [place] [address] [id number] Nabeel Tran Self - patient is the [...]
--- OUTSIDE RECORDS SUMMARY | 2025-03-23 11:23 | XMS_ITS | Encounter Summary ---
Author Organization [facility] Address [facility] [place] [address] Care Team Providers Care Molybdenum Steamer Operator Name Role Phone Margo Beckman EDU Unavailable [phone] Ailin España CNP Primary Care Provider + Source Comments In the event this information is protected by the Federal Confidentiality of Alcohol and Drug AbusePatient Records regulations: The Federal rules restrict any use of the information to criminally investigate or prosecute any alcohol or drug abuse patient.[facility] Encounter Details Date Type Department Care Team (Late st Contact Info) Description 04/18/2024 Lab Requisition [facility] [address] [place] [address] Kin Lauren MD [address] [place] [address] Person encountering health services to consult on [...] AM EDT Office Visit Radiation Oncology [address] [place] [address] Rg Browne MD [address] [place] [address] 4 month follow up documented as of this encounter Procedures Procedure Name Priority Date/Time Associated Diagnosis Comments SURGICAL PATHOLOGY REFERENCE LAB CONSULT Routine 04/18/2024 8:55 AM EDT Person encountering health services to consult on behalf of another person documented in this encounter Results * SURGICAL PATHOLOGY REFERENCE LAB CONSULT (04/18/2024 8:55 AM EDT) Case Report Surgical Pathology Report Case: [id number] Authorizing Provider: Kin Lauren MD Collected: 04/18/2024 08:55 AM Ordering Location: [facility] Received: 04/18/2024 08:55 AM [facility] Pathologist: Crystal Mesa MD, PhD Specimen: Slide(s), 2 SLIDES [id number] 04/18/2024 5:40 PM EDT [facility] FINAL DIAGNOSIS A. Outside materials received from [facility], [place], [place] (External ID [id number], 04/14/24) Right axillary lymph node, core biopsy: -Extremely limited specimen compatible with malignancy, see comment. [facility] April 18, 2024 04/18/2024 5:40 PM EDT [facility] at 3488 EDT Diagnosis Comment Thank you for sharing this case in consultation. Per report, flow cytometry was sent on this specimen but is not yet available. The specimen is cut through on an initial deeper level section received. Greater sampling is recommended if feasible, if it is clinically indicated to further characterize this process. Please do not hesitate to contact the Hematopathology Consult Service at [phone] for any questions or if additional follow-up information becomes available. 04/18/2024 5:40 PM EDT [facility] Microscopic Description Histologic sections demonstrate multiple scant fragments of [...] exhausted to further characterize this limited sample. 04/18/2024 5:40 PM EDT [facility] Clinical History CONSULT REQUESTED 04/18/2024 5:40 PM EDT [facility] Performing Lab Diagnostic interpretation performed at: [facility], [address] [place] [address] CLIA# [id number] Landscape Architect And Planner: Ramiro Degroot MD 04/18/2024 5:40 PM EDT [facility] Blocks or Slides MICROSCOPE SLIDE / Unknown 04/18/2024 8:55 AM EDT 04/18/2024 8:55 AM EDT us [facility] Gama Lauren MD SURGICAL PATHOLOGY Final Re sult [facility] [address] [place] [address] documented in this encounter Visit Diagnoses Diagnosis Person encountering health services to consult on behalf of another person Other person consulting on behalf of another person documented in this encounter Care Teams Molybdenum Steamer Operator Relationship Specialty Start Date End Date Ailin España CNP [address] [place] [address] PCP - General Internal Medicine 12/18/[address] [place] [address] [place] [address] Registered Dietitian Nutrition 09/26/24 documented as of this encounter
--- OUTSIDE RECORDS SUMMARY | 2025-03-23 11:28 | XMS_ITS | CCD ---
Author Organization [facility] Care Team Providers Care Adjunct Latin Professor Name Role Phone PHYSICIAN, DEFAULT Unavailable Unavailable PHYSICIAN, DEFAULT Unavailable Unavailable PHYSICIAN, DEFAULT Unavailable Unavailable PHYSICIAN, DEFAULT Unavailable Unavailable PHYSICIAN, DEFAULT Unavailable Unavailable PHYSICIAN, DEFAULT Unavailable Unavailable UNKNOWN, PROVIDER Unavailable Unavailable UNKNOWN, PROVIDER Unavailable Unavailable NEVILLE MATA Unavailable Unavailable NEVILLE MATA Unavailable Unavailable SAMUEL, AILIN Admitting Unavailable AILIN BAKER Attending Unavailable SAMUEL, AILIN Primary Care Unavailable SAMUEL, AILIN Admitting Unavailable AILIN BAKER Attending Unavailable ELIANA BAKERELA Consulting Unavailable SAMUEL, AILIN Primary Care Unavailable AILIN BAKER Attending Unavailable NEVILLE MATA Primary Care Unavailable SAMUEL, AILIN Consulting Unavailable SAMUEL, AILIN Admitting Unavailable ILAN TODD Attending Unavailable ILAN TODD Consulting Unavailable ILAN TODD Admitting Unavailable SAMUEL, AILIN Primary Care Unavailable AMARIS WALKER Consulting Unavailable AILIN GREEN Primary Care Physician DO González Moon Primary Care Provider [phone] MD Nabeel Strange Attending Provider MD Jassi Alegria Attending Provider Peter ELLIS Ailin Unavailable Peter ELLIS Ailin Unavailable MD Sonia Donnelly Attending Provider MEHRDAD Green Primary Care Provider Jassi Alegria Attending Unavailable Jassi Alegria Admitting Unavailable González Moon Primary Care Unavailable Nabeel Strange Admitting Unavailable Nabeel Strange Attending Unavailable Ailin Green Primary Care Unavailable Sonia Donnelly Attending Unavailable Sonia Donnelly Admitting Unavailable Jassi ALEGRIA Attending Unavailable NILL, Jassi R Attending Unavailable NILL, Jassi R Attending Unavailable NILL, Jassi R Attending Unavailable Moody OPP R Attending Unavailable DONN, Moody Aranda Attending Unavailable AILIN GREEN S Referring Unavailable NILRufus, Jassi R Attending Unavailable Moody POP Attending Unavailable Jah Damian MD Primary Care Provider [phone] Primary Care Provider Unavailbraeden Arenas DO, Christopher Unavailable [phone] CLEVE QUINN Attending Unavailable DEEPA, CHRISTOPHER Referring Unavailable YANNA HARRISON Attending Unavailable DEEPA, CHRISTOPHER Attending Unavailable PETER, AILIN Referring Unavailable LILLIAN NAGEL Attending Unavailable LILLIAN NAGEL Attending Unavailable DEEPA, CHRISTOPHER Attending Unavailable DEEPA, CHRISTOPHER Attending Unavailable CLEVE QUINN Attending Unavailable DEEPA, CHRISTOPHER Referring Unavailable AUREA SANCHEZ Attending Unavailable DEEPA, CHRISTOPHER Referring Unavailable Unavailable Primary Care Provider UnavailMargo Garcia RD Unavailable Ailin Green CNP S Primary Care Provider [phone] CATRACHITO, RG Referring Unavailable CATRACHITO, RG Referring Unavailable CATRACHITO, RG Attending Unavailable MEI, SONIA Referring Unavailable CATRACHITO, RG Referring Unavailable [...] RG Attending Unavailable CATRACHITO, RG Referring Unavailable ELIANA GREENELA S Primary Care Unavailable CATRACHITO, RG Referring [...] RG Referring Unavailable CATRACHITO, RG Referring Unavailable JEROD STATON Attending Unavailable FABIOLA BENDER Attending Unavailable JEROD STATON Attending Unavailable Allergies Allergy Classification Reported Allergen(s) Allergy Type Date of Onset Reaction(s) Facility (2 sources) No Known Allergies; Translations: [No Known Allergies] Propensity to adverse reactions (disorder) 7 [facility] Repository (1 source) Unable to Assess Drug allergy (disorder) 4 [facility] Repository (1 source) No Known Medication Allergies; Translations: [No Known Medication Allergies] Propensity to adverse reactions (disorder) [facility] Repository (15 sources) no latex allergy [Other] Propensity to adverse reactions 5 [facility] (1 source) OTHER; Translations: [OTHER] Propensity to adverse reactions (disorder) 5 [facility] Repository (1 source) empagliflozin; Translations: [EMPAGLIFLOZIN] Drug Allergy 4 [facility] Repository Medications Current Medications Medication [...] Active Start: 06-15-2024 take 1 capsule by [facility] every twenty-four hours in the morning dilTIAZem [...] day(s), # 90 cap(s), Refills(s) 3, Pharmacy: [facility], 187, cm, 01/21/24 11:48:00 EDT, [...] completed, # 2 tab(s), Refills(s) 0, Pharmacy: [id number], 187, cm, 01/21/24 11:48:00 EDT, Height/Length [...] other benign neoplasm] 06-17-2024 Episodic Cardiac dysrhythmias (2 sources) Paroxysmal atrial fibrillation; Translations: [Paroxysmal atrial fibrillation] Onset: 09-15-2024 Chronic Diabetes mellitus without complication (5 sources) [...] (current) use of oral hypoglycemic drugs; Translations: [FCI (CURRENT) USE OF ORAL 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 DRUGS] Onset: 2017 Unclassified (4 sources) Patient encounter status 01-21-2024 Viral infection (1 source) COVID-19; Translations: [COVID-19] Onset: 12-08-2020 Past or Other Problems Problem Classification Problem Date Documented Da te Episodic/Chronic Complications of surgical procedures or medical care (2 sources) Hypotension due to drugs; Translations: [Hypotension due to drugs] Onset: 03-28-2024 Episodic Other aftercare (1 source) custodial (current) use of aspirin; Translations: [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 (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) USE OF ASPIRIN] Onset: 2017 Episodic Other lower respiratory disease (3 sources) Shortness of breath; Translations: [SHORTNESS OF BREATH] Onset: 2017 Episodic Other lower respiratory disease (3 sources) Cough; Translations: [COUGH] Onset: 12-06-2020 Episodic Results Test Name Value Interpretation Reference Range Facility Orders Onlyon 02-23-2025 Orders Only [id number] Allen Tran 1955 M Date Provider Department Center 02/23/2025 [id number], HISTORICAL ELIAS Rosario Family History Problem Relation Age of Onset Coronary artery disease Mother Family Status - Relation Status Age at Mother Normal [facility] CNOVon 12-18-2024 CNOV Office Visit (RADTSA ) NABEEL TRAN ([id number]) 1955 M Date Time Provider Department 12/18/24 10:30 AM RG WINSOTN During your visit today, we recorded the [...] under the care of Dr. Donnelly at [facility] and repeat pet imaging after the [...] of said technology/software. Referring Provider: RG WINSTON [[id number]] Allergies As of Date: 12/18/2024 Noted Allergy [...] for Encounter Date Provider Department Center 12/18/2024 [id number] WINSTON Encounter Status:Closed by [facility]INSTON [facility]RADTSA[facility] NABEEL TRAN ([id number]) 1955 M Date Time Provider Department 12/02/24 RG WINSTON RADTSA During your visit today, [...] Status:Closed by ANA PAULA CHAUHAN on 12/11/24 Normal [facility] CNOVon 11-13-2024 CNOV Office Visit (RADTSA ) NABEEL TRAN ([id number]) 1955 M Date Time Provider Department 11/13/24 10:00 AM RG WINSTON RADTSA During your [...] under the care of Dr. Donnelly at [facility] and repeat pet imaging after the third cycle on 09/08/2024 noted excellent metabolic response (Deauville 3). COURSE: Consolidative AREA TREATED: Right axilla/neck CURRENT DOSE: 55231 cGy in 18 fx PLANNED DOSE: 3600 [...] Rg Winston MD Referring Provider: RG WINSTON [[id number]] Allergies As of Date: 11/13/2024 Noted Allergy Reaction NO KNOWN DRUG ALLERGIES 07/24/2005 no latex allergy [Other] 07/24/2005 Date Reviewed: 11/13/2024 Reviewed by: Coty Chan RN - Fully [...] Encounter Status:Closed by RG WINSTON on 11/24/24 [facility] CNOVon 11-05-2024 CNOV Office Visit (RADTSA ) NABEEL TRAN ([id number]) 1955 M Date Time Provider Department 11/05/24 [...] under the care of Dr. Donnelly at [facility] and repeat pet imaging after the [...] Encounter Status:Closed by RG WINSTON on 11/17/24 [facility] CNOVon 10-29-2024 CNOV Office Visit (RADTSA ) CHELSEANABEEL Young ([id number]) 1955 M Date Time Provider Department 10/29/24 10:00 AM RG WINSTON During your visit [...] under the care of Dr. Donnelly at [facility] and repeat pet imaging after the [...] Encounter Status:Closed by RG WINSTON on 11/10/24 [facility] CNOVon 10-21-2024 CNOV Office Visit (RADTSA ) NABEEL TRAN ([id number]) 1955 M Date Time Provider Department 10/21/24 1:15 PM RG WINSTON RADTSA During your visit today, [...] under the care of Dr. Donnelly at [facility] and repeat pet imaging after the [...] Assessed Reason for Visit: Radiotherapy On-treatment Visit [172] Primary Visit Diagnosis:Hodgkin lymphoma, unspecified Hodgkin lymphoma [...] Encounter Status:Closed by RG WINSTON on 11/03/24 [facility]20[facility]JYOTIA[facility] NABEEL TRAN ([id number]) 1955 Date Time Provider Department 10/07/24 1:15 PM [...] Status:Closed by ANA PAULA CHAUHAN on 10/08/24 [facility] CNOVon 09-25-2024 CNOV Office Visit (RADTSA ) NABEEL RTAN ([id number]) 1955 M Date Time Provider Department 09/25/24 9:00 AM RG WINSTON During your visit today, we recorded the following information about you: Temperature Pulse Respiration Blood pressure 96.8 degrees 62/minute 16/minute 110/63 Weight Height 85.4 kg 1.892 m Weyer, Coty, RN 10/20/2024 11:58 PM Signed Pacemaker/Defibrillator? No Previous Cancer(s)? No Previous Radiation? No Lupus/Scleroderma? No On body monitoring device? Yes, G7 device for glucose monitoring. Was notified of need to remove prior to simulation/treatment. Was also notified of need to do finger stick blood sugars throughout. and pt aware. BRANDAN Yin Saju, MD 10/21/2024 8:06 AM Addendum Radiation Oncology - New Patient/Consult Note PATIENT NAME: Nabeel Tran PATIENT REQUESTING PHYSICIAN: Dr. 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 He was accompanied today by his family. Final recommendations will be communicated back to the requesting physician by way of the shared medical record, or letter to requesting physician via US mail. HISTORY OF PRESENT ILLNESS: Mr. Tran is a 69-year old gentleman [place], [place] with a history of hearing loss [...] atypical lymphoproliferative disorder after second review through [facility]. A second core biopsy was obtained on [...] 09/08/2024 showing excellent metabolic response [facility] at [facility]. He then completed a fourth and [...] has 2 children, and lives in the [facility]. 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 He denies tobacco or alcohol use. [...] BMI 23 (more content not included)... Normal [facility] CNPNon 09-25-2024 CNPN Telephone (RADTSA) JUANYNABEEL MCKEON ([id number]) 1955 M Date Time Provider Department 09/25/24 RG WINSTON During your visit today, we [...] Status:Closed by MARJAN AVILA on 10/01/24 Normal [facility] Office Visiton 09-15-2024 Follow-up visit [id number] Allen Tran W 1955 Date Provider Department Center 09/15/2024 367-JEROD STATON ELIAS Pierce [facility] 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, motor predominant and severe Can not exclude radiculopathy [facility] NVC 9-10 Nerveson 07-10-2024 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, motor predominant and severe Can not exclude radiculopathy [facility] Office Visiton 06-19-2024 Follow-up visit [id number] Allen Tran W 1955 Date Provider Department Center 06/19/2024 [id number]-FABIOLA BENDER ELIAS [facility] Family History Problem Relation Age of Onset Coronary artery disease Mother Family Status - Relation Status Age at Mother Level of Service:29320 [place] OFFICE/OUTPATIENT ESTABLISHED LOW MDM 20 MIN Normal [facility] Orders Onlyon 06-19-2024 Orders Only [id number] Allen Tran 1955 M Date Provider Department Center 06/19/2024 JOSE ALFREDO GARCIA ELIAS [facility] Family History Problem Relation Age of Onset Coronary artery disease Mother Family Status - Relation Status Age at Mother Normal [facility] ISTAT XRay CREon 05-29-2024 ISTAT GFR > 60.0 Normal [facility] Comment on above: Result Comment: PERF ORMED BY: [place] [address] PATHOLOGIST CONTRACT RUNNER KASSI WATERS M.D. Performed By: #### I SCRE #### [address] MR head/brain wo/w conon MR head/brain wo/w con [facility] Main [place] [address] [place] [address] MRI Report Signed Patient: Nabeel Tran MR#: [id number] : 1955 Acct:[id number] Age/Sex: 68 / M ADM Date: 05/29/24 Loc: MR Room: Type: [facility] Attending Dr: Sonia Donnelly MD Copies to: [...] Alexis Patel M.D.05/29/2024 1:38 PM Dictation Location: [place] [address] Transcribed By: [facility] 05/29/24 1338 Dictated By: Alexis Patel II, MD 05/29/24 1325 Signed By: 05/29/24 1336 Normal [facility] No Panel InformationOrdered By: Sonia Donnelly on 05-29-2024 Bedside Estimated GFR (eGFR) > 60.0 [facility] Whole blood creatinine measu rementOrdered By: Sonia Donnelly on 05-29-2024 Creatinine [Mass/Vol] 0.8 mg/dL Normal 0.6-1.3 [facility] Comment on above: ER/ESD physician is notified/shown all ISTAT results.Critical values may be confirmed by laboratory testing ifdeemed necessary by ER attending doctor. Result Comment: ER/E [place] physician is notified/shown all ISTAT results. Critical values may be confirmed by laboratory testing if deemed necessary by ER attending doctor. Performed By: #### I SCRE #### [address] XR pre/post mri xrayon 05-29 XR pre/post mri xray [facility] [place] [address] [place] [address] MRI Report Signed Patient: Nabeel Tran MR#: [id number] : 1955 Acct:[id number] Age/Sex: 68 / M ADM Date: 05/29/24 Loc: Room: Type: [facility] Attending Dr: Sonia Donnelly MD Copies to: Sonia Donnelly MD Ordering Provider: Sonia Donnelly MD Date of Service: 05/29/24 MR/MR cervical spine wo/w con: C85.90, C85.94, C85.11 ([id number]) XR/XR pre/post mri xray: C85.90, C85.94, C85.11 [...] Alexis Patel M.D.05/29/2024 1:00 PM Dictation Location: [place] [address] Transcribed By: [facility] 05/29/24 1300 Dictated By: Alexis Patel II, MD 05/29/24 1254 Signed By: 05/29/24 1300 Normal [facility] SURGICAL PATHOLOGY REFERENCE LAB CONSULTon 05-05-2024 ADDENDUM 1: Normal [facility] Comment on above: Order Comment: Speci men Type: FORMALIN-FIXED PARAFFIN-EMBEDDED TISSUE SPECIMENOrdering Facility: [facility] Address: [address] [place] [address] [place] [address] Result Comment: Repe at MUM1 immunostain does in fact stain the focal large atypical cells. No change in final diagnosis. ABO 05/14/2024 Addendum electronically signed by Lory Vick MD, PhD on 05/14/2024 at 4:02 PM Performed By: #### L [id number] ####[facility] LAB[facility] [id number] [place] [address] [place] CASE REPORT Normal [facility] Comment on above: Order Comment: Speci men Type: FORMALIN-FIXED PARAFFIN-EMBEDDED TISSUE SPECIMENOrdering Facility: [facility] Address: [address] [place], [place] [address] [address] Result Comment: Surg [facility] Pathology Report Case: [id number] Authorizing Provider: Kin Lauren MD Collected: 05/05/2024 04:52 PM Ordering Location: [facility] Received: 05/05/2024 04:52 PM [facility] Pathologist: Lory Vick MD, PhD Specimen: Slide(s), 18 SLIDES [id number] Performed By: #### L [id number] ####[facility] LABCLIA [id number] [place] [address] [place] CLINICAL HISTORY CONSULT REQUESTED Normal [facility] Comment on above: Order Comment: Speci men Type: FORMALIN-FIXED PARAFFIN-EMBEDDED TISSUE SPECIMENOrdering Facility: [facility] Address: [address] [place], [place] [address] [id number] Performed By: #### L [id number] ####[facility] LABIA [id number] [address] [place] DIAGNOSIS COMMENT Normal [facility] Comment on above: Order Comment: Speci men Type: FORMALIN-FIXED PARAFFIN-EMBEDDED TISSUE SPECIMENOrdering Facility: [facility] Address: [facility] [place] [id number] Result Comment: Per the provided report, flow cytometric analysis detected no significant immunophenotypic abnormalities on the lymphocytes, with a CD4:CD8 ratio 4.4. Overall, the morphologic and immunophenotypic findings described below are consistent with an atypical lymphoid proliferation predominantly composed of reactive changes with a single focus of large SA58-akryguyg lymphocytes. Morphologically and immunophenotypically, these large atypical cells are compatible with Hodgkin and Neto-Jude cells/variants. However, this tiny, focal involvement is unusual. If the patient has additional lymphadenopathy, biopsy of another site is recommended to definitely diagnose involvement by a Hodgkin lymphoma. Correlation with imaging studies is strongly recommended. This case was also reviewed by Dr. Mare Pierce ([facility] hematopathology section), who agrees with the above interpretation and final diagnosis. Thank you for sending this case in consultation. Please contact the Hematopathology Consult Service at [phone] for any questions or if additional follow-up information becomes available. Laboratory Developed Test (LDT) Disclaimer: Performance characteristics of immunohistochemical, immunofluorescent and chromogenic in-situ hybridization tests have been determined by the performing laboratory within [facility]???s [facility] Pathology and Laboratory Medicine Department ([facility], [facility], [facility], [facility], [facility], [facility], or [facility]) in a manner consistent with CLIA requirements. One or more of these tests have not been cleared or approved by the FDA. [facility] is regulated under CLIA as qualified to perform high-complexity testing. These tests are used for clinical purposes. They should not be regarded as investigational or for research. Positive and negative controls stain appropriately. Performed By: #### L [id number] ####[facility] LABCLIA [id number] [place] [address] [place] FINAL DIAGNOSIS Normal [facility] Comment on above: Order Comment: Speci men Type: FORMALIN-FIXED PARAFFIN-EMBEDDED TISSUE SPECIMENOrdering Facility: [facility] Address: [facility] [place] [address] Result Comment: Outs roberto slides ([id number]; 04/23/2024) from [facility], [place], [place]. A. Lymph node, right axillary, excisional biopsy: - Predominantly reactive lymphoid proliferation with a single focus of atypical FC54-bounthfz lymphocytes. - See comment. ABO 05/13/2024 Performed By: #### L [id number] ####[facility] LABCLIA [id number] [address] [place] FINAL PERFORMING LAB Normal [facility] Comment on above: Order Comment: Speci men Type: FORMALIN-FIXED PARAFFIN-EMBEDDED TISSUE SPECIMENOrdering Facility: [facility] Address: [facility] [place] [address] Result Comment: Diag nostic interpretation performed at: [facility], [address] [place] [address] CLIA# [id number] Setter Off: Ramiro Degroot MD Performed By: #### L [id number] ####[facility] LABCLIA [id number] [address] MICROSCOPIC DESCRIPTION Normal [facility] Comment on above: Order Comment: Speci men Type: FORMALIN-FIXED PARAFFIN-EMBEDDED TISSUE SPECIMENOrdering Facility: [facility] Address: [facility] [place] [address] Result Comment: H&E- stained sections demonstrate fibroadipose [...] in situ hybridization stains were performed at [facility] on the requested block A2. The [...] atypical large lymphocytes. Performed By: #### L [id number] ####[facility] [id number] [place] [address] [place] Ambulatory Visit Summaryon 0 04-30-2024 Ambulatory Visit [...] ELLIS, Moody Aranda Where: [facility] [address] [place] [address] [place] [address]- Medications What How Much When Instructions Unchanged [...] for choosing us for your care. Normal [facility] General Surgery Office/Clini c Noteon 04-30-2024 General Surgery Office/Clinic Note General Surgery Office/Clinic Note Chief Complaint post operative follow up HPI Staff 7 day post operative follow up post incisional biopsy right axilla adenopathy completed while inpatient at [facility]. Denies soreness, bleeding or drainage. History [...] 04/30/2024 Family History Heart disease: Mother. Normal [facility] Comment on above: Result Comment: Elec tronically Signed By: AIRAM ELLIS, Jassi Nazario.br\Date and Time Signed: 04/30/24 14:51 EDT Robert 04-23-2024 L Specimen: [id number] R eceived: 04/23/24 Status: MERNA Montemayor Num: [id number] Spec Type: Surgical Subm Dr: Jassi Alegria MD FACS Tissues: A Lymph Node - Biopsy (Needle or Incisional) (R AXILLARY LYMPH NODE BX) Procedures: CD45/2, HE/4, Gross/Micro L4, AE1-AE3, BCL-2, BCL-6, CD10, CD20, CD23, CD3, CD30/2, CD5, PAX5/2 Age/ Patient Sex Location Account Attending Physician Nabeel Tran 68/M LABELL [id number] Jassi Alegria MD FACS SPEC NUM: [id number] RECD: 04/23/24 STATUS: MERNA MONTEMAYOR NUM: [id number] RANJITH: 04/23/24-[address]: Jassi Alegria MD FACS ENTERED: 04/23/[address] [facility] [address]: SPEC TYPE: Surgical DEPT: LUANA MOYER ENTERED BY: [id number] RECV BY: [id number] ORDERED: CD45/2, HE/4, Gross/Micro L4, AE1-AE3, BCL-2, BCL-6, CD10, CD20, CD23, CD3, CD30/2, CD5, PAX5/2 ORDERED: CD45/2, HE/4, Gross/Micro L4, AE1-AE3, BCL-2, BCL-6, CD10, CD20, CD23, CD3, CD30/2, CD5, PAX5/2, USS/7 Supplemental Report Addendum 3 Entered: 05/15/24-1014 Supplemental for addended consultation report from [facility] Addendum -Repeat MUM1 immunostain does in fact stain the focal large atypical cells -No change in final diagnosis Addendum Signed (signature on file) Kin-Gama Lauren MD 05/15/24 1014 -- Addendum 2 Entered: 05/14/248086 Supplemental for findings of consultation report from [facility]: -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 -- Specimen: [id number] Received: 04/23/24 Status: MERNA Montemayor Num: [id number] Spec Type: Surgical Subm Dr: Jassi Alegria MD FACS Tissues: A Lymph Node - Biopsy (Needle or Incisional) (R AXILLARY LYMPH NODE BX) Procedures: CD45/2, HE/4, Gross/Micro L4, AE1-AE3, BCL-2, BCL-6, CD10, CD20, CD23, CD3, CD30/2, CD5, PAX5/2 -- Patient: Nabeel Tran [id number] (Continued) -- Specimen: [id number] Received: 04/23/24 (Continued) Supplemental Report (Continued) Signed (signature on file) Trinity Lauren MD 05/01/24 1651 -- Specimen: [id number] Received: 04/23/24 Status: MERNA Montemayor Num: [id number] Spec Type: Surgical Subm Dr: Jassi Alegria MD FACS Tissues: A Lymph Node - Biopsy (Needle or Incisional) (R AXILLARY LYMPH NODE BX) Procedures: CD45/2, HE/4, Gross/Micro L4, AE1-AE3, BCL-2, BCL-6, CD10, CD20, CD23, CD3, CD30/2, CD5, PAX5/2 -- Patient: AsiyabellegiaNabeel W [id number] (Continued) -- Specimen: [id number] Received: 04/23/241322 (Continued) Supplemental Report (Continued) lymphocytes -See comment Addendum Signed (signature on file) Trinity Lauren MD 05/14/24 1437 -- Addendum 1 Entered: 05/07/24 Supplemental for findings of Flow Cytometry report from [facility] -No significant lymphoid immunophenotypic abnormalities detected Addendum Signed (signature on file)Kavon Lauren MD 05/07/24943 -- Pathological Diagnosis Right axillary lymph node, [...] content not included)... Normal [facility] SURGICAL PATHOLOGY REFERENCE LAB CONSULTon 04-18-2024 CASE REPORT Normal [facility] Comment on above: Order Comment: Speci men Type: FORMALIN-FIXED PARAFFIN-EMBEDDED TISSUE SPECIMENOrdering Facility: [facility] Address: [address] [place] [phone] Result Comment: Surg [facility] Pathology Report Case: [id number] Authorizing Provider: Kin Lauren MD Collected: 04/18/2024 08:55 AM Ordering Location: [facility] Main Received: 04/18/2024 08:55 AM [facility] Laboratory Pathologist: Crystal Mesa MD, PhD Specimen: Slide(s), 2 SLIDES [id number] Performed By: #### L [id number] ####[facility] LABCLIA [id number] [address] [place] CLINICAL HISTORY CONSULT REQUESTED Normal [facility] Comment on above: Order Comment: Speci men Type: FORMALIN-FIXED PARAFFIN-EMBEDDED TISSUE SPECIMENOrdering Facility: [facility] Address: [address] [place], [place] [phone] Performed By: #### L [id number] ####[facility] LABCLIA [id number] [address] DIAGNOSIS COMMENT Normal [facility] Comment on above: Order Comment: Speci men Type: FORMALIN-FIXED PARAFFIN-EMBEDDED TISSUE SPECIMENOrdering Facility: [facility] Address: [address] [place], [place] [phone] Result Comment: Than k you for sharing [...] to contact the Hematopathology Consult Service at [phone] for any questions or if additional follow-up information becomes available. Performed By: #### L [id number] ####[facility] LABCLIA [id number] [address] FINAL DIAGNOSIS Normal [facility] Comment on above: Order Comment: Speci men Type: FORMALIN-FIXED PARAFFIN-EMBEDDED TISSUE SPECIMENOrdering Facility: [facility] Address: [address] [place] [phone] Result Comment: A. O utside materials received from [facility], [place], [place] (External ID [id number], 04/14/24) Right axillary lymph node, core biopsy: -Extremely limited specimen compatible with malignancy, see comment. [facility] April 18, 2024 Performed By: #### L [id number] ####[facility] LABCLIA [id number] [address] [place] FINAL PERFORMING LAB Normal [facility] Comment on above: Order Comment: Speci men Type: FORMALIN-FIXED PARAFFIN-EMBEDDED TISSUE SPECIMENOrdering Facility: [facility] Address: [address] [place], [place] [id number] Result Comment: Diag nostic interpretation performed at: [facility], [address] [facility] [place], [place] [address] CLIA# [id number] Setter Off: Ramiro Degroot MD Performed By: #### L [id number] ####[facility] LABIA [id number] [address] MICROSCOPIC DESCRIPTION Histologic sections demonstrate multiple [...] to further characterize this limited sample. Normal [facility] Comment on above: Order Comment: Speci men Type: FORMALIN-FIXED PARAFFIN-EMBEDDED TISSUE SPECIMENOrdering Facility: [facility] Address: [address] [place] [address] Performed By: #### L [id number] ####[facility] LABIA [id number] [address] [place] Robert 04-11-2024 L Specimen: [id number] R eceived: 04/14/24 Status: MERNA Miguel Num: [id number] Spec Type: Surgical Subm Dr: Nabeel Strange MD Tissues: A Lymph Node - Biopsy (Needle or Incisional) (R AXILLA LYMPH NODE) B Gross Only (LYMPH NODE) Procedures: HE/2, Gross/Micro L4, Level 1 Gross Age/ Patient Sex Location Account Attending Physician Nabeel Tran 68/M LABELL [id number] Nabeel Strange MD SPEC NUM: [id number] RECD: 04/14/24 STATUS: MERNA MONTEMAYOR NUM: [id number] RANJITH: 04/11/24 DR: Nabeel Strange MD ENTERED: 04/14/[address] [facility] [address]: Stan,Lab SPEC TYPE: Surgical DEPT: LUANA MOYER ENTERED BY: [id number] RECV BY: [id number] ORDERED: HE/2, Gross/Micro L4, Level 1 Gross ORDERED: HE/2, Gross/Micro L4, Level 1 Gross Supplemental Report Addendum 2 Entered: 04/21/24 Supplemental for findings of consultation report from [facility]: A, -Extremity limited specimen compatible with malignancy, see comment Addendum Signed (signature on file) Chin-aGma Lauren MD 04/21/24 1307 -- Addendum 1 Entered: 04/18/249382 Supplemental for findings of flow cytometry report from [facility]: -Tests canceled -This test is canceled due to poor sample quality / poor viability -- Specimen: [id number] Received: 04/14/24 Status: MERNA Montemayor Num: [id number] Spec Type: Surgical Subm Dr: Nabeel Strange MD Tissues: A Lymph Node - Biopsy (Needle or Incisional) (R AXILLA LYMPH NODE) B Gross Only (LYMPH NODE) Procedures: HE/2, Gross/Micro L4, Level 1 Gross -- Patient: Nabeel Tran [id number] (Continued) -- Specimen: [id number] Received: 04/14/24 (Continued) Supplemental Report (Continued) Signed (signature on file) Trinity Lauren MD 04/17/24 1127 -- Specimen: [id number] Received: 04/14/24 Status: MERNA Montemayor Num: [id number] Spec Type: Surgical Subm Dr: Nabeel Strange MD Tissues: A Lymph Node - Biopsy (Needle or Incisional) (R AXILLA LYMPH NODE) B Gross Only (LYMPH NODE) Procedures: HE/2, Gross/Micro L4, Level 1 Gross -- Patient: Nabeel Tran [id number] (Continued) -- Specimen: [id number] Received: 04/14/24-1045 (Continued) Supplemental Report (Continued) Addendum [...] to an outside facility. DM -- Specimen: [id number] Received: 04/14/24 Status: MERNA Montemayor Num: [id number] Spec Type: Surgical Subm Dr: Nabeel Strange MD Tissues: A Lymph Node - Biopsy (Needle or Incisio (more content not included)... Normal [facility] Office Visiton 03-28-2024 Follow-up visit [id number] Allen Tran 1955 M Date Provider Department [place] 03/28/2024 JEROD BANKS ELIAS Rosario Family History Problem Relation Age of Onset Coronary artery disease Mother Family Status - Relation Status Age at Mother Level of Service:[address] [place] OFFICE/OUTPATIENT ESTABLISHED MOD MDM 30 MIN Normal [facility] Insurance Correspondenceon 0 01-30-2024 Insurance Correspondence [id number]#1.00TIFF Normal [facility] Consent for Procedure/Surger yon 01-22-2024 Consent for Procedure/Surgery [id number]#1.00TIFF Normal [facility] Physician Referralon 024 Physician Referral [id number]#1.00TIFF Normal [facility] Screenson 01-22-2024 Screens [id number]#1.00TIFF Normal [facility] Ambulatory Visit Summaryon 0 01-21-2024 Ambulatory [...] [facility] [address], [place] [address]- Medications What When Instructions Unchanged amlodipine (amLODIPine [...] urine (ur (more content not included)... Normal [facility] Patient Educationon 01-21-20 Patient Education Urology Benign [...] Follow these instructions at home: ? Take rhvv-ebr-bcotgcc and prescription medicines only as told by [...] the medicine (more content not included)... Normal [facility] INSULINon 08-27-2021 Insulin 19.2 uIU/mL Normal 2.6-24.9 [facility] Comment on above: Performed By: #### I NSULIN #### [facility] [address] [place] [address] Dr. Forrest Lauren CBC AUTO DIFFon 08-26-2021 BASO # 0.1 103/ul Normal 0.0-0.1 [facility] Comment on above: Performed By: #### P SASC #### [facility] [address] [place] [address] Dr. Forrest Lauren Basophils/100 WBC (Bld) 0.8 % Normal 0.2-2.0 [facility] Comment on above: Performed By: #### P SASC #### [facility] [address] [place] [address] [address] Forrest Lauren EO # 0.4 103/ul Normal 0.0-0.7 [facility] Comment on above: Performed By: #### P SASC #### [facility] [address] [place] [address] Dr. Forrest Lauren Eosinophils/100 WBC (Bld) 4.8 % Normal 0.9-7.0 [facility] Comment on above: Performed By: #### P SASC #### [facility] [address] [place] [address] Dr. Forrest Lauren Erythrocyte distribution width (RBC) [Ratio] 12.7 % Normal 11.0-15.0 [facility] Comment on above: Performed By: #### P SASC #### [facility] [address] [place] [address] [address] Forrest Lauren Hematocrit (Bld) [Volume fraction] 48.3 % Normal 42.0-54.0 [facility] Comment on above: Performed By: #### P SASC #### [facility] [address] [place] [address] Dr. Forrest Lauren Hemoglobin (Bld) [Mass/Vol] 16.4 g/dL Normal 14.0-18.0 [facility] Comment on above: Performed By: #### P SASC #### [facility] [address] [place] [address] [address] Forrest Lauren IG # 0.05 10e3/ul Critically high 0.00-0.03 [facility] Comment on above: Performed By: #### P SASC #### [facility] [address] [place] [address] Dr. Forrest Lauren IG % 0.6 % Critically high 0.0-0.5 [facility] Comment on above: Performed By: #### P SASC #### [facility] [address] [place] [address] Dr. Forrest Lauren LYMPH # 2.0 103/ul Normal 1.2-3.8 [facility] Comment on above: Performed By: #### P SASC #### [facility] [address] [place] [address] Dr. Forrest Lauren Lymphocytes/100 WBC (Bld) 22.6 % Normal 20.5-60.0 [facility] Comment on above: Performed By: #### P SASC #### [facility] [address] [place] [address] Dr. Forrest Lauren MANUAL DIFF REQ NO Normal [facility] Comment on above: Performed By: #### P SASC #### [facility] [address] [place] [address] Dr. Forrest Lauren MCH (RBC) [Entitic mass] 29.8 pg Normal 25.9-34.0 [facility] Comment on above: Performed By: #### P SASC #### [facility] [address] [place] [address] [address] Forrest Lauren MCHC (RBC) [Mass/Vol] 34.0 g/dL Normal 29.9-35.2 [facility] Comment on above: Performed By: #### P SASC #### [facility] [address] [place] [address] [address] Forrest Lauren MCV (RBC) [Entitic vol] 87.8 fL Normal 80.0-94.0 [facility] Comment on above: Performed By: #### P SASC #### [facility] [address] [place] [address] [address] Forrest Lauren MONO # 0.7 103/ul Normal 0.3-0.8 [facility] Comment on above: Performed By: #### P SASC #### [facility] [address] [place] [address] Dr. Forrest Lauren Monocytes/100 WBC (Bld) 8.0 % Normal 1.7-12.0 [facility] Comment on above: Performed By: #### P SASC #### [facility] [address] [place] [address] Dr. Forrest Lauren NEUT # 5.7 103/ul Normal 1.4-6.5 [facility] Comment on above: Performed By: #### P SASC #### [facility] [address] [place] [address] Dr. Forrest Lauren Neutrophils/100 WBC (Bld) 63.2 % Normal 43.0-75.0 [facility] Comment on above: Performed By: #### P SASC #### [facility] [address] [place] [address] Dr. Forrest Lauren Platelet mean volume (Bld) [Entitic vol] 9.7 fL Normal 9.5-13.5 [facility] Comment on above: Performed By: #### P SASC #### [facility] [address] [place] [address] Dr. Forrest Lauren PLT 242 103/ul Normal 150-450 [facility] Comment on above: Performed By: #### P SASC #### [facility] [address] [place] [address] [address] Forrest Lauren RBC 5.50 106/ul Normal 4.70-6.10 [facility] Comment on above: Performed By: #### P SASC #### [facility] [address] [place] [address] Dr. Forrest Lauren WBC 9.0 103/ul Normal 4.0-11.0 [facility] Comment on above: Performed By: #### P SASC #### [facility] [address] [place] [address] Dr. Forrest Lauren GLYCOHEMOGLOBIN A1Con 2021 ADA RECOMMENDATION ADA THERAPEUTIC TARG ET 6.0 - 7.0 ACTION SUGGESTED > 7.0 Normal [facility] Comment on above: Performed By: #### A 1C #### [facility] [address] [place] [address] Dr. Forrest Lauren Glucose [Mass/Vol] 194 mg/dL Normal [facility] Comment on above: Performed By: #### A 1C #### [facility] [address] [place] [address] Dr. Forrest Lauren HbA1c (Bld) [Mass fraction] 8.4 % Critically high <=6.0 [facility] Comment on above: Performed By: #### A 1C #### [facility] [address] [place] [address] Dr. Forrest Lauren LIPID PROFILEon 08-26-2021 CHOL-HDL RATIO NORM SEE BELOW Normal [facility] Comment on above: Result Comment: 3.3 - 4.4 LOW RISK 4.4 - 7.1 AVERAGE RISK 7.1 - 11.0 MODERATE RISK >11.0 HIGH RISK Performed By: #### P SASC #### [facility] [address] [place] [address] Dr. Forrest Lauren Cholesterol [Mass/Vol] 117 mg/dL Normal <=200 [facility] Comment on above: Performed By: #### P SASC #### [facility] [address] [place] [address] Dr. Forrest Lauren Cholesterol in HDL [Mass/Vol] 43 mg/dL Normal [facility] Comment on above: Performed By: #### P SASC #### [facility] [address] [place] [address] [address] Forrest Lauren Cholesterol in LDL [Mass/Vol] 45.6 mg/dL Normal [facility] Comment on above: Performed By: #### P SASC #### [facility] [address] [place] [address] [address] Forrest Lauren Cholesterol.total/C holesterol in HDL [Mass ratio] 2.7 {ratio} Normal [facility] Comment on above: Performed By: #### P SASC #### [facility] [address] [place] [address] [address] Forrest Lauren HDL NORMAL > or = 60 mg/dl - LO W CARDIOVASCULAR RISK <40 mg/dl - HIGH CARDIOVASCULAR RISK Normal [facility] Comment on above: Performed By: #### P SASC #### [facility] [address] [place] [address] [address] Forrest Lauren LDL CALC NORMAL SEE BELOW Normal [facility] Comment on above: Result Comment: <100 mg/dl OPTIMAL 100 - 129 mg/dl NEAR OR ABOVE OPTIMAL 130 - 159 mg/dl BORDERLINE HIGH 160 - 189 mg/dl HIGH >190 mg/dl VERY HIGH Performed By: #### P SASC #### [facility] [address] [place] [address] [address] Forrest Lauren Triglyceride [Mass/Vol] 142 mg/dL Normal <=150 [facility] Comment on above: Performed By: #### P SASC #### [facility] [address] [place] [address] [address] Forrest Lauren VLDL CALC 28.4 mg/dL Normal [facility] Comment on above: Performed By: #### P SASC #### [facility] [address] [place] [address] [address] Forrest Lauren PROF 14(COMP METB)on 022 Albumin [Mass/Vol] 4.1 g/dL Normal 3.5-5.0 [facility] Comment on above: Performed By: #### P SASC #### [facility] [address] [place] [address] Dr. Forrest Lauren Albumin/Globulin [Mass ratio] 1.2 {ratio} Normal [facility] Comment on above: Performed By: #### P SASC #### [facility] [address] [place] [address] [address] Forrest Lauren ALP [Catalytic activity/Vol] 82 U/L Normal 38-126 [facility] Comment on above: Performed By: #### P SASC #### [facility] [address] [place] [address] [address] Forrest Lauren ALT [Catalytic activity/Vol] 38 U/L Normal 21-72 [facility] Comment on above: Performed By: #### P SASC #### [facility] [address] [place] [address] Dr. Forrest Lauren Anion gap [Moles/Vol] 12.7 mmol/L Normal [facility] Comment on above: Performed By: #### P SASC #### [facility] [address] [place] [address] Dr. Forrest Lauren AST [Catalytic activity/Vol] 18 U/L Normal 17-59 [facility] Comment on above: Performed By: #### P SASC #### [facility] [address] [place] [address] Dr. Forrest Lauren Bilirubin [Mass/Vol] 1.2 mg/dL Normal 0.2-1.3 [facility] Comment on above: Performed By: #### P SASC #### [facility] [address] [place] [address] Dr. Forrest Lauren Calcium [Mass/Vol] 9.7 mg/dL Normal 8.4-10.2 [facility] Comment on above: Performed By: #### P SASC #### [facility] [address] [place] [address] Dr. Forrest Lauren Chloride [Moles/Vol] 102 mmol/L Normal 98-107 [facility] Comment on above: Performed By: #### P SASC #### [facility] [address] [place] [address] [address] Forrest Lauren CO2 [Moles/Vol] 30.6 mmol/L Critically high 22.0-30.0 [facility] Comment on above: Performed By: #### P SASC #### [facility] [address] [place] [address] [address] Forrest Lauren Creatinine [Mass/Vol] 1.09 mg/dL Normal 0.66-1.25 [facility] Comment on above: Performed By: #### P SASC #### [facility] [address] [place] [address] [address] Forrest Lauren EGFR-AF [place] >60 Normal >=60 [facility] Comment on above: Performed By: #### P SASC #### [facility] [address] [place] [address] [address] Forrest Lauren EGFR-NON AF [place] >60 Normal >=60 [facility] Comment on above: Performed By: #### P SASC #### [facility] [address] [place] [address] [address] Forrest Lauren Globulin (S) [Mass/Vol] 3.4 g/dL Normal [facility] Comment on above: Performed By: #### P SASC #### [facility] [address] [place] [address] [address] Forrest Lauren Glucose [Mass/Vol] 238 mg/dL Critically high 74-106 [facility] Comment on above: Performed By: #### P SASC #### [facility] [address] [place] [address] [address] Forrest Lauren Potassium [Moles/Vol] 4.3 mmol/L Normal 3.4-5.0 [facility] Comment on above: Performed By: #### P SASC #### [facility] [address] [place] [address] [address] Forrest Lauren Protein [Mass/Vol] 7.5 g/dL Normal 6.1-8.2 [facility] Comment on above: Performed By: #### P SASC #### [facility] [address] [place] [address] [address] Forrest Lauren Sodium [Moles/Vol] 141 mmol/L Normal 137-145 [facility] Comment on above: Performed By: #### P SASC #### [facility] [address] [place] [address] [address] Forrest Lauren Urea nitrogen [Mass/Vol] 20.0 mg/dL Normal 9.0-20.0 [facility] Comment on above: Performed By: #### P SASC #### [facility] [address] [place] [address] Dr. Forrest Lauren Urea nitrogen/Creatinine [Mass ratio] 18.3 mg/mg Normal [facility] Comment on above: Performed By: #### P SASC #### [facility] [address] [place] [address] [address] Forrest Lauren URIC ACID SERUMon 08-26-2021 Urate [Mass/Vol] 4.8 mg/dL Normal 3.5-8.5 [facility] Comment on above: Performed By: #### P SASC #### [facility] [address] [place] [address] Dr. Forrest Lauren Covid-19 PCR ([facility]on Sample Type Test performed using RT-PCR from a nasopharyngeal collected specimen. Normal [facility] Comment on above: Performed By: #### P SASC #### [facility] [address] [place] [address] [address] Forrest Lauren SARS-CoV-2 (COVID-19) RNA MERA+probe Ql (Unsp spec) Detected Abnormal NOT DETECTED [facility] Comment on above: Result Comment: This test is not yet approved or cleared by the [place] FDA. When there are no FDA-approved or cleared tests available, and other criteria are met, FDA can make tests available under an emergency access mechanism called an Emergency Use Authorization (EUA). The EUA for this test is supported by the [employer] Manager of Health and Human Service's (HHS's) [...] used). Performed By: #### P SASC #### [facility] [address] [place] [address] Dr. Forrest Lauren POINT OF CARE GLUCOSEon 05-0 Glucose [Mass/Vol] 255 mg/dL Critically high 74-106 [facility] Comment on above: Performed By: #### P OCGLUC #### [facility] [address] [place] [address] Matiaswali Rivas XR CHEST 1 Von 12-07-2020 XR [...] AMARIS WALKER Date: 2020-12-06 22:04 Normal [facility] INSULINon 10-02-2020 Insulin 16.9 uIU/mL Normal 2.6-24.9 [facility] Comment on above: Performed By: #### P SASC #### [facility] [address] [place] [address] Dr. Forrest Lauren CBC AUTO DIFFon 10-01-2020 BASO # 0.1 103/ul Normal 0.0-0.1 [facility] Comment on above: Performed By: #### C BC #### [facility] [address] [place] [address] Matias Rivas Basophils/100 WBC (Bld) 0.6 % Normal 0.2-2.0 [facility] Comment on above: Performed By: #### C BC #### [facility] [address] [place] [address] Matias Rivas EO # 0.4 103/ul Normal 0.0-0.7 [facility] Comment on above: Performed By: #### C BC #### [facility] [address] [place] [address] Matias Rivas Eosinophils/100 WBC (Bld) 4.2 % Normal 0.9-7.0 [facility] Comment on above: Performed By: #### C BC #### [facility] [address] [place] [address] Matiaswali Rivas Erythrocyte distribution width (RBC) [Ratio] 13.1 % Normal 11.0-15.0 [facility] Comment on above: Performed By: #### C BC #### [facility] [address] [place] [address] Matias Evelyn Hematocrit (Bld) [Volume fraction] 50.2 % Normal 42.0-54.0 [facility] Comment on above: Performed By: #### C BC #### [facility] [address] [place] [address] Matiaswali Rivas Hemoglobin (Bld) [Mass/Vol] 16.6 g/dL Normal 14.0-18.0 [facility] Comment on above: Performed By: #### C BC #### [facility] [address] [place] [address] Matias Evelyn IG # 0.05 10e3/ul Critically high 0.00-0.03 [facility] Comment on above: Performed By: #### C BC #### [facility] [address] [place] [address] Matias Evelyn IG % 0.6 % Critically high 0.0-0.5 [facility] Comment on above: Performed By: #### C BC #### [facility] [address] [place] [address] Matias Evelyn LYMPH # 1.9 103/ul Normal 1.2-3.8 [facility] Comment on above: Performed By: #### C BC #### [facility] [address] [place] [address] Matias Rodasen Lymphocytes/100 WBC (Bld) 22.2 % Normal 20.5-60.0 [facility] Comment on above: Performed By: #### C BC #### [facility] [address] [place] [address] Matiaswali Rodasen MANUAL DIFF REQ NO Normal [facility] Comment on above: Performed By: #### C BC #### [facility] [address] [id number] Matias Rivas MCH (RBC) [Entitic mass] 29.4 pg Normal 25.9-34.0 [facility] Comment on above: Performed By: #### C BC #### [facility] [address] [place], [place] [id number] Matias Rivas MCHC (RBC) [Mass/Vol] 33.1 g/dL Normal 29.9-35.2 [facility] Comment on above: Performed By: #### C BC #### [facility] [address] [place], [place] [id number] Matias Rivas MCV (RBC) [Entitic vol] 88.8 fL Normal 80.0-94.0 [facility] Comment on above: Performed By: #### C BC #### [facility] [address] [place] [address] Matias Rivas MONO # 0.7 103/ul Normal 0.3-0.8 [facility] Comment on above: Performed By: #### C BC #### [facility] [address] [place], [place] [id number] Matias Rivas Monocytes/100 WBC (Bld) 7.7 % Normal 1.7-12.0 [facility] Comment on above: Performed By: #### C BC #### [facility] [address] [place], [place] [id number] Matias Rivas NEUT # 5.7 103/ul Normal 1.4-6.5 [facility] Comment on above: Performed By: #### C BC #### [facility] [address] [place], [place] [id number] Matias Rivas Neutrophils/100 WBC (Bld) 64.7 % Normal 43.0-75.0 [facility] Comment on above: Performed By: #### C BC #### [facility] [address] [place], [place] [id number] Matias Rivas Platelet mean volume (Bld) [Entitic vol] 10.4 fL Normal 9.5-13.5 [facility] Comment on above: Performed By: #### C BC #### [facility] [address] [place], [place] [address] Matias Evelyn PLT 243 103/ul Normal 150-450 [facility] Comment on above: Performed By: #### C BC #### [facility] [address] [place], [place] [address] Matias Evelyn RBC 5.65 106/ul Normal 4.70-6.10 [facility] Comment on above: Performed By: #### C BC #### [facility] [address] [place], [place] [address] Matias Evelyn WBC 8.7 103/ul Normal 4.0-11.0 [facility] Comment on above: Performed By: #### C BC #### [facility] [address] [place], [place] [address] Matiaswali Rodasen FREE THYROXINE INDEX T7on FTI 2.11 Normal [facility] Comment on above: Performed By: #### U TARIK, CMP, T7, PSASC, TSH, LIPID #### [facility] [address] [place], [place] [address] Matias Evelyn T3U 34.0 % Normal 23.5-40.5 [facility] Comment on above: Performed By: #### U TARIK, CMP, T7, PSASC, TSH, LIPID #### [facility] [address] [place], [place] [address] Matias Evelyn T4 [Mass/Vol] 6.20 ug/dL Normal 5.53-11.00 [facility] Comment on above: Performed By: #### U TARIK, CMP, T7, PSASC, TSH, LIPID #### [facility] [address] [place], [place] [address] Matias Evelyn GLYCOHEMOGLOBIN A1Con 2020 ADA RECOMMENDATION ADA THERAPEUTIC TARG ET 6.0 - 7.0 ACTION SUGGESTED > 7.0 Normal [facility] Comment on above: Performed By: #### A 1C #### [facility] [address] [place] [address] Matias Evelyn Glucose [Mass/Vol] 266 mg/dL Normal [facility] Comment on above: Performed By: #### A 1C #### [facility] [address] [address] Matias Rivas HbA1c (Bld) [Mass fraction] 10.9 % Critically high <=6.0 [facility] Comment on above: Performed By: #### A 1C #### [facility] [address] [address] Matias Rivas LIPID PROFILEon 10-01-2020 CHOL-HDL RATIO NORM SEE BELOW Normal [facility] Comment on above: Result Comment: 3.3 - 4.4 LOW RISK 4.4 - 7.1 AVERAGE RISK 7.1 - 11.0 MODERATE RISK >11.0 HIGH RISK Performed By: #### P SASC #### [facility] [address] [place] [address] Dr. Forrest Lauren Cholesterol [Mass/Vol] 110 mg/dL Normal <=200 [facility] Comment on above: Performed By: #### P SASC #### [facility] [address] [place] [address] Dr. Forrest Lauren Cholesterol in HDL [Mass/Vol] 36 mg/dL Normal [facility] Comment on above: Performed By: #### P SASC #### [facility] [address] [place] [address] Dr. Forrest Lauren Cholesterol in LDL [Mass/Vol] 36.2 mg/dL Normal [facility] Comment on above: Performed By: #### P SASC #### [facility] [address] [address] [address] Forrest Lauren Cholesterol.total/C holesterol in HDL [Mass ratio] 3.1 {ratio} Normal [facility] Comment on above: Performed By: #### P SASC #### [facility] [address] [place] [address] Dr. Forrest Lauren HDL NORMAL > or = 60 mg/dl - LO W CARDIOVASCULAR RISK <40 mg/dl - HIGH CARDIOVASCULAR RISK Normal [facility] Comment on above: Performed By: #### P SASC #### [facility] [address] [place] [address] Dr. Forrest Lauren LDL CALC NORMAL SEE BELOW Normal [facility] Comment on above: Result Comment: <100 mg/dl OPTIMAL 100 - 129 mg/dl NEAR OR ABOVE OPTIMAL 130 - 159 mg/dl BORDERLINE HIGH 160 - 189 mg/dl HIGH >190 mg/dl VERY HIGH Performed By: #### P SASC #### [facility] [address] [address] [address] Forrest Lauren Triglyceride [Mass/Vol] 189 mg/dL Critically high <=150 [facility] Comment on above: Performed By: #### P SASC #### [facility] [address] [address] [address] Forrest Lauren VLDL CALC 37.8 mg/dL Normal [facility] Comment on above: Performed By: #### P SASC #### [facility] [address] [address] [address] Forrest Lauren PROF 14(COMP METB)on 021 Albumin [Mass/Vol] 4.1 g/dL Normal 3.5-5.0 [facility] Comment on above: Performed By: #### U TARIK, CMP, T7, PSASC, TSH, LIPID #### [facility] [address] [address] Matias Rivas Albumin/Globulin [Mass ratio] 1.2 {ratio} Normal [facility] Comment on above: Performed By: #### U TARIK, CMP, T7, PSASC, TSH, LIPID #### [facility] [address] [address] Matias Rivas ALP [Catalytic activity/Vol] 80 U/L Normal 38-126 [facility] Comment on above: Performed By: #### U TARIK, CMP, T7, PSASC, TSH, LIPID #### [facility] [address] [address] Matias Rivas ALT [Catalytic activity/Vol] 42 U/L Normal 21-72 [facility] Comment on above: Performed By: #### U TARIK, CMP, T7, PSASC, TSH, LIPID #### [facility] [address] [address] Matias Evelyn Anion gap [Moles/Vol] 12.3 mmol/L Normal [facility] Comment on above: Performed By: #### U TARIK, CMP, T7, PSASC, TSH, LIPID #### [facility] [address] [address] Matisa Evelyn AST [Catalytic activity/Vol] 24 U/L Normal 17-59 [facility] Comment on above: Performed By: #### U TARIK, CMP, T7, PSASC, TSH, LIPID #### [facility] [address] [address] Matias Evelyn Bilirubin [Mass/Vol] 1.3 mg/dL Normal 0.2-1.3 [facility] Comment on above: Performed By: #### U TARIK, CMP, T7, PSASC, TSH, LIPID #### [facility] [address] [place] [address] Matias Evelyn Calcium [Mass/Vol] 9.3 mg/dL Normal 8.4-10.2 [facility] Comment on above: Performed By: #### U TARIK, CMP, T7, PSASC, TSH, LIPID #### [facility] [address] [place] [address] Matias Evelyn Chloride [Moles/Vol] 103 mmol/L Normal 98-107 [facility] Comment on above: Performed By: #### U TARIK, CMP, T7, PSASC, TSH, LIPID #### [facility] [address] [address] Matias Evelyn CO2 [Moles/Vol] 30.0 mmol/L Normal 22.0-30.0 [facility] Comment on above: Performed By: #### U TARIK, CMP, T7, PSASC, TSH, LIPID #### [facility] [address] [address] Matias Evelyn Creatinine [Mass/Vol] 1.20 mg/dL Normal 0.66-1.25 [facility] Comment on above: Performed By: #### U TARIK, CMP, T7, PSASC, TSH, LIPID #### [facility] [address] [place], [place] [address] Matias Evelyn EGFR-AF [place] >60 Normal >=60 [facility] Comment on above: Performed By: #### U TARIK, CMP, T7, PSASC, TSH, LIPID #### [facility] [address] [address] Matias Evelyn EGFR-NON AF [place] >60 Normal >=60 [facility] Comment on above: Performed By: #### U TARIK, CMP, T7, PSASC, TSH, LIPID #### [facility] [address] [address] Matias Evelyn Globulin (S) [Mass/Vol] 3.5 g/dL Normal [facility] Comment on above: Performed By: #### U TARIK, CMP, T7, PSASC, TSH, LIPID #### [facility] [address] [address] Matias Evelyn Glucose [Mass/Vol] 269 mg/dL Critically high 74-[address] [facility] Comment on above: Performed By: #### U TARIK, CMP, T7, PSASC, TSH, LIPID #### [facility] [address] [address] Matias Evelyn Potassium [Moles/Vol] 4.3 mmol/L Normal 3.4-5.0 [facility] Comment on above: Performed By: #### U TARIK, CMP, T7, PSASC, TSH, LIPID #### [facility] [address] [address] Matias Evelyn Protein [Mass/Vol] 7.6 g/dL Normal 6.1-8.2 [facility] Comment on above: Performed By: #### U TARIK, CMP, T7, PSASC, TSH, LIPID #### [facility] [address] [address] Matias Evelyn Sodium [Moles/Vol] 141 mmol/L Normal 137-145 [facility] Comment on above: Performed By: #### U TARIK, CMP, T7, PSASC, TSH, LIPID #### [facility] [address] [address] Matias Evelyn Urea nitrogen [Mass/Vol] 17.0 mg/dL Normal 9.0-20.0 [facility] Comment on above: Performed By: #### U TARIK, CMP, T7, PSASC, TSH, LIPID #### [facility] [address] [address] Matias Rivas Urea nitrogen/Creatinine [Mass ratio] 14.2 mg/mg Normal [facility] Comment on above: Performed By: #### U TARIK, CMP, T7, PSASC, TSH, LIPID #### [facility] [address] [address] Matias Rivas TSHon 10-01-2020 TSH 1.574 uIU/mL Normal 0.470-4.68 0 [facility] Comment on above: Performed By: #### P SASC #### [facility] [address] [place] [address] Dr. Forrest Lauren TSH RANGE SEE BELOW Normal [facility] Comment on above: Result Comment: <0.3 4 UIU/ml HYPERTHYROID 0.34-5.60 UIU/ml EUTHYROID >5.60 UIU/ml HYPOTHYROID Performed By: #### P SASC #### [facility] [address] [address] [address] Forrest Lauren URIC ACID SERUMon 10-01-2020 Urate [Mass/Vol] 4.8 mg/dL Normal 3.5-8.5 [facility] Comment on above: Performed By: #### P SASC #### [facility] [address] [address] [address] Forrest Lauren Cardiovascular Lab Reporton 08-03-2017 Cardiovascular Lab Report [id number] Physician: Jerod Miller M.D.Medicine Service Date: 2017Division of Birthdate: 6Cardiology Room #: [facility]Services[facility] [place], [place] [address]Ravlu Fax Cardiovascular Laboratory ReportINDICATION: Nabeel Tran is [...] the right internal jugular vein and a 6-Citizen Of [place] x 11cm sheath was placed. A 6-[place]izen [place] Griffith catheter was used for right heartcatheterization with measurement of pressures and calculation of cardiacoutput using the estimated Luke method. Griffith catheter was removed.Using ultrasound guidance and micropuncture technique, access was obtainedin the left radial artery and a 6-Citizen [place] x 11 cm Hydrophilic sheath wasadvanced. Verapamil [...] 08/02/2017/02:42 P/Jerod Staton M.D.Date Trans: 08/03/2017 11:29 [id number]: Neville Mata D.O. [address] [place] [address] Normal [facility] Vital Signs Date Time Vital Sign Value Performing Clinician Faci lity 12-18-2024 10:31-0400 Body mass index (BMI) [Ratio] 23.51 kg/m2 Rg Winston MD Work Phone: [facility] 12-18-2024 10:31-0400 Body weight 84.2 kg Rg Winston MD Work Phone: [facility] 12-18-2024 10:31-0400 Diastolic blood pressure 65 mm[Hg] Rg Winston MD Work Phone: [facility] 12-18-2024 10:31-0400 Heart rate 59 /min Rg Winston MD Work Phone: [facility] 12-18-2024 10:31-0400 Respiratory rate 18 /min Rg Winston MD Work Phone: [facility] 12-18-2024 10:31-0400 SaO2% (BldA) [Mass fraction] 98 % Rg Winston MD Work Phone: [facility] 12-18-2024 10:31-0400 Systolic blood pressure 113 mm[Hg] Rg Winston MD Work Phone: [facility] 11-13-2024 10:00-0400 Body mass index (BMI) [Ratio] 22.98 kg/m2 Rg Winston MD Work Phone: [facility] 11-13-2024 10:00-0400 Body temperature 97.3 [degF] Rg Winston MD Work Phone: [facility] 11-13-2024 10:00-0400 Body weight 82.3 kg Rg Winston MD Work Phone: [facility] 11-13-2024 10:00-0400 Diastolic blood pressure 87 mm[Hg] Rg Winston MD Work Phone: [facility] 11-13-2024 10:00-0400 Heart rate 66 /min Rg Winston MD Work Phone: [facility] 11-13-2024 10:00-0400 Respiratory rate 16 /min Rg Winston MD Work Phone: [facility] 11-13-2024 10:00-0400 SaO2% (BldA) [Mass fraction] 99 % Rg Winston MD Work Phone: [facility] 11-13-2024 10:00-0400 Systolic blood pressure 121 mm[Hg] Rg Winston MD Work Phone: [facility] 11-05-2024 09:59-0400 Body mass index (BMI) [Ratio] 23.07 kg/m2 Rg Winston MD Work Phone: [facility] 11-05-2024 09:59-0400 Body temperature 97.9 [degF] Rg Winston MD Work Phone: [facility] 11-05-2024 09:59-0400 Body weight 82.6 kg Rg Winston MD Work Phone: [facility] 11-05-2024 09:59-0400 Diastolic blood pressure 69 mm[Hg] Rg Winston MD Work Phone: [facility] 11-05-2024 09:59-0400 Heart rate 65 /min Rg Winston MD Work Phone: [facility] 11-05-2024 09:59-0400 Respiratory rate 16 /min Rg Winston MD Work Phone: [facility] 11-05-2024 09:59-0400 SaO2% (BldA) [Mass fraction] 97 % Rg Winston MD Work Phone: [facility] 11-05-2024 09:59-0400 Systolic blood pressure 121 mm[Hg] Rg Winston MD Work Phone: [facility] 10-29-2024 10:23-0400 Body mass index (BMI) [Ratio] 23.26 kg/m2 Rg Winston MD Work Phone: [facility] 10-29-2024 10:23-0400 Body temperature 97.5 [degF] Rg Winston MD Work Phone: [facility] 10-29-2024 10:23-0400 Body weight 83.3 kg Rg Winston MD Work Phone: [facility] 10-29-2024 10:23-0400 Diastolic blood pressure 60 mm[Hg] Rg Winston MD Work Phone: [facility] 10-29-2024 10:23-0400 Heart rate 64 /min Rg Winston MD Work Phone: [facility] 10-29-2024 10:23-0400 Respiratory rate 16 /min Rg Winston MD Work Phone: [facility] 10-29-2024 10:23-0400 SaO2% (BldA) [Mass fraction] 99 % Rg Winston MD Work Phone: [facility] 10-29-2024 10:23-0400 Systolic blood pressure 95 mm[Hg] Rg Winston MD Work Phone: [facility] 10-21-2024 13:45-0400 Body mass index (BMI) [Ratio] 23.54 kg/m2 Rg Winston MD Work Phone: [facility] 10-21-2024 13:45-0400 Body temperature 97.81 [degF] Rg Winston MD Work Phone: [facility] 10-21-2024 13:45-0400 Body weight 84.3 kg Rg Winston MD Work Phone: [facility] 10-21-2024 13:45-0400 Diastolic blood pressure 70 mm[Hg] Rg Winston MD Work Phone: [facility] 10-21-2024 13:45-0400 Heart rate 61 /min Rg Winston MD Work Phone: [facility] 10-21-2024 13:45-0400 Respiratory rate 18 /min Rg Winston MD Work Phone: [facility] 10-21-2024 13:45-0400 SaO2% (BldA) [Mass fraction] 95 % Rg Winston MD Work Phone: [facility] 10-21-2024 13:45-0400 Systolic blood pressure 130 mm[Hg] Rg Winston MD Work Phone: [facility] 09-25-2024 09:12-0500 Body height 189.2 cm Rg Winston MD Work Phone: [facility] 09-25-2024 09:12-0500 Body mass index (BMI) [Ratio] 23.85 kg/m2 Rg Winston MD Work Phone: [facility] 09-25-2024 09:12-0500 Body temperature 96.8 [degF] Rg Winston MD Work Phone: [facility] 09-25-2024 09:12-0500 Body weight 85.4 kg Rg Winston MD Work Phone: [facility] 09-25-2024 09:12-0500 Diastolic blood pressure 63 mm[Hg] Rg Winston MD Work Phone: [facility] 09-25-2024 09:12-0500 Heart rate 62 /min Rg Winston MD Work Phone: [facility] 09-25-2024 09:12-0500 Respiratory rate 16 /min Rg Winston MD Work Phone: [facility] 09-25-2024 09:12-0500 SaO2% (BldA) [Mass fraction] 98 % Rg Winston MD Work Phone: [facility] 09-25-2024 09:12-0500 Systolic blood pressure 110 mm[Hg] Rg Winston MD Work Phone: [facility] 08-07-2024 10:05-0500 Body mass index (BMI) [Ratio] 23.57 kg/m2 Christopher Deepa DO Work Phone: [facility] 08-07-2024 10:05-0500 Body weight 83.28 kg Christopher Deepa DO Work Phone: [facility] 08-07-2024 10:05-0500 Diastolic blood pressure 62 mm[Hg] Christopher Deepa DO Work Phone: [facility] 08-07-2024 10:05-0500 Heart rate 74 /min Christopher Deepa DO Work Phone: [facility] 08-07-2024 10:05-0500 SaO2% (BldA) [Mass fraction] 96 % Christopher Deepa DO Work Phone: [facility] 08-07-2024 10:05-0500 Systolic blood pressure 90 mm[Hg] Christopher Deepa DO Work Phone: [facility] 07-29-2024 09:12-0500 Body height 188 cm Regis Ibarra MD Work Phone: [facility] [employer] [facility] 07-29-2024 09:12-0500 Body mass index (BMI) [Ratio] 22.7 kg/m2 Regis Ibarra MD Work Phone: [facility] 07-29-2024 09:12-0500 Body temperature 97.3 [degF] Regis Ibarra MD Work Phone: [facility] 07-29-2024 09:12-0500 Body weight 80.2 kg Regis Ibarra MD Work Phone: [facility] 06-17-2024 12:25-0500 Body height 188 cm Christopher Deepa DO Work Phone: [facility] 06-17-2024 12:25-0500 Body mass index (BMI) [Ratio] 20.29 kg/m2 Christopher Deepa DO Work Phone: [facility] 06-17-2024 12:25-0500 Body weight 71.67 kg Christopher Deepa DO Work Phone: [facility] 06-17-2024 12:25-0500 Diastolic blood pressure 75 mm[Hg] Christopher Deepa DO Work Phone: [facility] 06-17-2024 12:25-0500 Heart rate 98 /min Christopher Deepa DO Work Phone: [facility] 06-17-2024 12:25-0500 SaO2% (BldA) [Mass fraction] 93 % Christopher Deepa DO Work Phone: [facility] 06-17-2024 12:25-0500 Systolic blood pressure 118 mm[Hg] Christopher Deepa DO Work Phone: [facility] 06-03-2024 09:54-0400 Diastolic blood pressure 68 mm[Hg] Jassi ALEGRIA [facility] 06-03-2024 09:54-0400 Heart rate 105 /min Jassi ALEGRIA [facility] 06-03-2024 09:54-0400 Respiratory rate 16 /min Jassi ALEGRIA [facility] 06-03-2024 09:54-0400 Systolic blood pressure 103 mm[Hg] Jassi ALEGRIA [facility] 05-29-2024 06:42-0400 Body height 190.5 cm DO González [employer] Work Phone: [facility] 05-29-2024 06:42-0400 Body weight 78.47 kg DO González [employer] Work Phone: [facility] 01-21-2024 11:44-0400 Blood Pressure Location [facility] 01-21-2024 11:44-0400 Diastolic blood pressure 72 mm[Hg] [facility] 01-21-2024 11:44-0400 Heart rate 70 /min [facility] 01-21-2024 11:44-0400 Respiratory rate 16 /min [facility] 01-21-2024 11:44-0400 Systolic blood pressure 108 mm[Hg] [place] [facility] Encounters Encounter Date Encounter Type Care Provider Facility Start: 12-18-2024 End: 12-18-2024 Patient encounter procedure Rg Winston MD Work Phone: [facility] Comment on above: Hodgkin lymphoma, un specified Hodgkin lymphoma type, unspecified body region (HCC) (Primary Dx) Start: 12-18-2024 End: 12-18-2024 ambulatory RG WINSTON Facility:[facility] Start: 12-02-2024 End: 12-11-2024 Telephone encounter Rg Winston MD Work Phone: [facility]cology Start: 11-17-2024 End: 11-17-2024 ambulatory RG CATRACHITO Facility:[facility] Start: 11-14-2024 End: 11-14-[address] Work Phone: Nutrition Therapy Start: 11-14-2024 End: 11-14-2024 Nutrition therapy Margo Schumacher RD Work Phone: Nutrition Therapy Comment on above: Nutrition Telephone (No answer/) Start: 11-14-2024 End: 11-14-2024 ambulatory RG CATRACHITO Facility:[facility] Start: 11-13-2024 End: 11-13-2024 Patient encounter procedure Rg Winston MD Work Phone: [facility] Comment on above: Hodgkin lymphoma, un specified Hodgkin lymphoma type, unspecified body region (HCC) (Primary Dx) Start: 11-13-2024 End: 11-13-2024 ambulatory RG CATRACHITO Facility:[facility] Start: 11-12-2024 End: 11-12-2024 ambulatory RG CATRACHITO Facility:[facility] Start: 11-11-2024 End: 11-11-2024 ambulatory RG CATRACHITO Facility:[facility] Start: 11-10-2024 End: 11-10-2024 ambulatory RG CATRACHITO Facility:[facility] Start: 11-07-2024 End: 11-07-2024 ambulatory RG CATRACHITO Facility:[facility] Start: 11-06-2024 End: 11-06-2024 ambulatory RG CATRACHITO Facility:[facility] Start: 11-05-2024 End: 11-05-2024 Patient encounter procedure Rg Winston MD Work Phone: [facility]iation Oncology Comment on above: Hodgkin lymphoma, un specified Hodgkin lymphoma type, unspecified body region (HCC) (Primary Dx) Start: 11-05-2024 End: 11-05-2024 ambulatory RG CATRACHITO Facility:[facility] Start: 11-04-2024 End: 11-04-2024 ambulatory RG CATRACHITO Facility:[facility] Start: 11-03-2024 End: 11-03-2024 ambulatory RG CATRACHITO Facility:[facility] Start: 10-31-2024 End: 10-31-2024 ambulatory RG CATRACHITO Facility:[facility] Start: 10-30-2024 End: 10-30-2024 ambulatory RG CATRACHITO Facility:[facility] Start: 10-29-2024 End: 10-29-2024 Patient encounter procedure Rg Winston MD Work Phone: Radiation Oncology Comment on above: Hodgkin lymphoma, un specified Hodgkin lymphoma type, unspecified body region (HCC) (Primary Dx) Start: 10-29-2024 End: 10-29-2024 ambulatory RG CATRACHITO Facility:[facility] Start: 10-28-2024 End: 10-28-2024 ambulatory RG CATRACHITO Facility:[facility] Start: 10-27-2024 End: 10-27-2024 ambulatory RG CATRACHITO Facility:[facility] Start: 10-24-2024 End: 10-24-2024 ambulatory RG CATRACHITO Facility:[facility] Start: 10-23-2024 End: 10-23-2024 ambulatory RG CATRACHITO Facility:[facility] Start: 10-22-2024 End: 10-22-2024 ambulatory RG CATRACHITO Facility:[facility] Start: 10-21-2024 End: 10-21-2024 ambulatory RG CATRACHITO Facility:[facility] Start: 10-21-2024 End: 10-21-2024 Patient encounter procedure Rg Winston MD Work Phone: Radiation Oncology Comment on above: Hodgkin lymphoma, un specified Hodgkin lymphoma type, unspecified body region (HCC) (Primary Dx) Start: 10-08-2024 End: 10-08-2024 Patient encounter procedure [facility] Provider [facility] Start: 10-07-2024 End: 10-21-2024 Patient encounter procedure Rg Winston MD Work Phone: [facility]cology Start: 10-07-2024 End: 10-21-2024 Radiation Oncology Note Rg Winston MD Work Phone: Radiation Oncology Comment on above: Simulation Note Treatment Planning Start: 10-07-2024 End: 10-07-2024 ambulatory RG WINSTON Facility:[facility] Start: 10-07-2024 End: 10-07-2024 Nursing evaluation [...] Dx) Start: 09-23-2024 End: 09-23-2024 Telephone encounter Cleve Quinn PT Work Phone: [facility] Comment on above: Check PT status Start: 09-19-2024 End: 09-19-2024 Clinical Support Pilar HATHAWAY Work Phone: [facility] Comment on above: Sensorineural hearin g loss (SNHL) of both ears (Primary Dx) Start: 09-15-2024 End: 09-15-2024 ambulatory [facility] Start: 09-08-2024 End: 09-08-2024 Telephone encounter Regis [...] extremities Start: 08-22-2024 End: 08-22-2024 Bamboo flowsheet Aurea Sanchez BUDGET ENGINEER [facility] Start: 08-22-2024 End: 08-22-2024 Bamboo flowsheet Aurea Sanchez BUDGET ENGINEER [facility] Start: 08-22-2024 End: 08-22-2024 ambulatory Aurea Sanchez BUDGET ENGINEER [facility] Comment on above: Polyneuropathy [...] Telephone encounter Regis [facility]barra [facility] Start: 08-13-2024 End: 08-13-2024 Telephone encounter Regis Ibarra MD [facility] Comment on above: Need office notes fa xed Start: 08-12-2024 End: 08-12-2024 Clinisync Result Encounter Christopher Deepa DO Work Phone: [facility] External Department Unsolicited Start: 08-12-2024 End: 08-12-2024 Clinisync Result Encounter Christopher Deepa DO Work Phone: [facility] Unsolicited Start: 08-12-2024 End: 08-12-2024 Telephone encounter Regis Ibarra MD Work Phone: [facility] Start: 08-07-2024 End: 08-07-2024 Bamboo flowsheet Christopher Deepa DO Work Phone: [facility] Start: 08-07-2024 End: 08-07-2024 Bamboo flowsheet Christopher Deepa DO Work Phone: [facility] Start: 08-07-2024 End: 08-07-2024 Office outpatient visit 25 minutes Christopher Deepa DO Work Phone: [facility] Comment on above: Lymphoma, unspecifie d body region, unspecified lymphoma type (CMS/HCC) (Primary Dx); Malnutrition, unspecified type (CMS/HCC); Polyneuropathy Start: 08-07-2024 End: 08-07-2024 ambulatory [facility] Not Available Start: 07-29-2024 End: 07-29-2024 Office outpatient new 45 minutes Regis Ibarra MD Work Phone: [facility] Comment on above: Sensorineural hearin g loss, asymmetrical (Primary Dx); Vestibular schwannoma (CMS-HCC); Hodgkin lymphoma, unspecified Hodgkin lymphoma type, unspecified body region (CMS-HCC) Start: 07-10-2024 End: 07-10-2024 Bamboo flowsheet Christopher Deepa DO Work Phone: [facility] Start: 07-10-2024 End: 07-10-2024 Bamboo flowsheet Christopher Deepa DO Work Phone: [facility] Start: 07-10-2024 End: 07-10-2024 Patient encounter procedure Shelby Arenas DO [facility] Comment on above: Weakness (Primary Dx ); Polyneuropathy Start: 07-10-2024 End: 07-10-2024 ambulatory [facility] Not Available Start: 07-02-2024 End: 07-02-2024 Patient encounter procedure Lillian Nagel AUD Work Phone: [facility] Comment on above: Sensorineural hearin g loss, bilateral (Primary Dx) Start: 07-02-2024 End: 07-02-2024 ambulatory LILLIAN NAGEL Not Available Start: 07-02-2024 End: 07-02-2024 Bamboo flowsheet Lillian Nagel AUD Work Phone: [facility] Start: 07-02-2024 End: 07-02-2024 Bamboo [...] Not Available Start: 06-19-2024 End: 06-19-[address] [facility] Start: 06-17-2024 End: 06-17-2024 Bamboo flowsheet Shelby Grahamett DO Work Phone: [facility] Start: 06-17-2024 End: 06-17-2024 Bamboo flowsheet Shelby Arenas DO Work Phone: 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) Start: 06-16-2024 End: 06-16-2024 ambulatory CLEVE KAI Not Available Start: 06-09-2024 End: 06-09-2024 ambulatory Moody POP Facility:[facility] Start: 06-09-2024 End: 06-09-2024 Patient encounter procedure Moody POP [facility] Start: 06-03-2024 End: 06-04-2024 ambulatory Jassi ALEGRIA Facility:CD:[id number] Start: 06-03-2024 End: 06-03-2024 Patient encounter procedure Jassi ALEGRIA [facility] [place] Start: 05-29-2024 End: 05-29-2024 Patient encounter procedure DO González Moon Work Phone: [facility] Main [place] Work Phone: Start: 05-29-2024 End: 05-29-2024 ambulatory DO González Kuns Work Phone: [facility] Work Phone: Start: 05-26-2024 End: [...] End: 04-30-2024 Patient encounter procedure Jassi ALEGRIA [facility] [place] Start: 04-28-2024 ambulatory Jassi NILL Facility:[facility] Start: 04-23-2024 End: 04-23-2024 ambulatory DO González Kuns Work Phone: [facility] Work Phone: Start: 04-23-2024 End: 04-23-2024 Departed Referred DO González Kuns Work Phone: [facility] Start: 04-23-2024 ambulatory Jassi NILL Facility:[facility] Johnson Start: 04-22-2024 End: 04-23-2024 ambulatory Jassi R NILL Facility:CD:[id number] Start: 04-21-2024 Non-patient / Non-visit DO Felipa tt Kuns Work Phone: [facility] Work Phone: Start: 04-11-2024 End: 04-11-2024 ambulatory DO Gonzálezisaias Moon Work Phone: [facility] Work Phone: Start: 04-11-2024 End: 04-11-2024 Departed Referred DO González Harriss Work Phone: [facility] Start: 03-28-2024 End: 03-28-2024 ambulatory [facility] Start: 02-11-2024 End: 02-11-2024 ambulatory Moody R DONN Facility:CD:[id number] Start: 01-21-2024 End: 01-21-2024 ambulatory Moody Rosi DONN Facility:[facility] Start: 01-21-2024 End: 01-21-2024 Patient encounter procedure Moody R DONN [facility] Start: 09-12-2023 ambulatory Jassi ALEGRIA Facility:[facility] Start: 08-26-2021 End: 08-26-2021 ambulatory AILIN BAKER Facility:H1 Start: 02-23-2021 ambulatory AILIN BAKER Facility:H 1 Start: 12-06-2020 End: 12-07-2020 ambulatory ILAN TODD Facility:H1 Start: 10-07-2020 Encounter for genera l adult medical examination without abnormal findings AILIN BAKER [facility] Start: 10-01-2020 End: 10-02-2020 ambulatory AILIN BAKER Facility:H1 Start: 10-01-2020 End: 10-02-2020 Encounter for general adult medical examination without abnormal findings AILIN BAKER Facility:H1 Start: 2017 End: 08-03-2017 Ambulatory PROVIDER UNKNOWN Facility:[facility] Start: 07-24-2017 End: 07-25-2017 Ambulatory DEFAULT PHYSICIAN Facility:[facility] Start: 07-19-2017 End: 07-20-2017 Ambulatory DEFAULT PHYSICIAN Facility:[facility] Start: 06-18-2017 End: 06-19-2017 Ambulatory DEFAULT PHYSICIAN Facility:[facility] Procedures Date Procedure Procedure Detail Performing Clinician Start: 08-12-2024 MLR HEMOGLOBIN A1C Chri stopher Deepa DO Work Phone: Start: 07-10-2024 End: 07-10-2024 [...] above: Performed By: #### P SASC #### [facility] [address] [address] [address] Forrest Lauren Start: 10-01-2020 PSA screening AILIN KHAN Comment on above: Performed By: #### U TARIK, CMP, T7, PSASC, TSH, LIPID #### [facility] [address] [place], [place] [address] Matias Rivas Start: 08-06-2013 Colonoscopy Moody ASHER Start: 08-06-2004 Neoplasm of brain (disorder) Moodyarnol POP Back structure, excl uding neck (body structure) Moodyarnol POP Removal of acoustic neuroma Jassi ALEGRIA Spinal arthrodesis Jassi INFANTE Tonsillectomy Moodyarnol POP Plan of Treatment Date Care Activity Detail Author Start: 07-31-2025 [facility] Start: 07-29-2025 Adult BMI Screening Adult BMI Screen ing [facility] Start: 07-29-2025 Tobacco Screening Tobacco Screening [facility] Start: 04-20-2025 End: 04-20-2025 Patient encounter procedure 04/20/2025 10:00 AM EDT Office Visit Radiation Oncology [address] [place] [address] Rg Winston MD [address] [place] [address] 4 month follow up Radiation Oncology Comment on above: 4 month follow up Start: 04-06-2025 Influenza vaccination Influenz a Vaccine (Season Ended) [facility] Start: 12-18-2024 End: 12-18-2024 Patient encounter procedure 12/18/2024 10:30 AM EDT Office Visit Radiation Oncology [address] [place] [address] Rg Winston MD [address] [place] [address] final radiation follow up Radiation Oncology Comment on above: final radiation foll ow up Start: 12-15-2024 End: 12-15-2024 Patient encounter procedure 12/15/2024 4:00 PM EDT Office Visit Radiation Oncology [address] [place] [address] Rg Winston MD [address] [place] [address] final radiation follow up Radiation Oncology Comment on above: final radiation foll ow up Start: 11-19-2024 End: 11-19-2024 Patient encounter procedure 11/19/2024 10:00 AM EDT Office Visit Radiation Oncology [address] [place] [address] Rg Winston MD [address] [place] [address] Location: [facility] Radiation Oncology Comment on above: Location: [facility] Start: 11-17-2024 End: 11-17-2024 Patient encounter procedure 11/17/2024 9:45 AM EDT Appointment Radiation Oncology [address] [place] [address] rt axilla/ neck Radiation Oncology Comment on above: rt axilla/ neck Start: 11-14-2024 End: 11-14-2024 Patient encounter procedure 11/14/2024 2:15 PM EDT Education Nutrition Therapy [address] [place] [address] [place] [address] Nutrition consult Nutrition Therapy Comment on above: Nutrition consult Start: 11-14-2024 End: 11-14-2024 Patient encounter procedure 11/14/2024 9:45 AM EDT Appointment Radiation Oncology [address] [place] [address] rt axilla/ neck Radiation Oncology Comment on above: rt axilla/ neck Start: 11-13-2024 End: 11-13-2024 Patient encounter procedure 11/13/2024 9:45 AM EDT Appointment Radiation Oncology [address] [place] [address] rt axilla/ neck Radiation Oncology Comment on above: rt axilla/ neck Start: 11-12-2024 End: 11-12-2024 Patient encounter procedure Radiation Oncology Comment on above: rt axilla/ neck Location: [facility] Start: 11-11-2024 End: 11-11-2024 Patient encounter procedure 11/11/2024 9:45 AM EDT Appointment Radiation Oncology [address] [place] [address] rt axilla/ neck Radiation Oncology Comment on above: rt axilla/ neck Start: 11-10-2024 End: 11-10-2024 Patient encounter procedure 11/10/2024 9:45 AM EDT Appointment Radiation Oncology [address] [place] [address] rt axilla/ neck Radiation Oncology Comment on above: rt axilla/ neck Start: 11-07-2024 End: 11-07-2024 Patient encounter procedure 11/07/2024 9:45 AM EDT Appointment Radiation Oncology [address] [place] [address] rt axilla/ neck Radiation Oncology Comment on above: rt axilla/ neck Start: 11-06-2024 End: 11-06-2024 Patient encounter procedure 11/06/2024 9:45 AM EDT Appointment Radiation Oncology [address] [place] [address] rt axilla/ neck Radiation Oncology Comment on above: rt axilla/ neck Start: 11-05-2024 End: 11-05-2024 Patient encounter procedure Radiation Oncology Comment on above: rt axilla/ neck Location: [facility] T[facility] RE[facility] Start: 11-04-2024 End: 11-04-2024 Patient encounter procedure 11/04/2024 9:45 AM EDT Appointment Radiation Oncology [address] [place] [address] rt axilla/ neck Radiation Oncology Comment on above: rt axilla/ neck Start: 11-03-2024 End: 11-03-2024 Patient encounter procedure 11/03/2024 3:45 PM EDT Office Visit [facility] [place] [address] Jassi Yanes MD [address] [place] [address] [facility] Start: 10-21-2024 End: 10-21-2024 Patient encounter procedure Radiation Oncology Comment on above: [place] AXILLA Axilla- would like m ornings Start: 10-20-2024 End: 10-20-2024 Patient encounter procedure Radiation Oncology Comment on above: [place] AXILLA- SA R PT Axilla- would like m ornings- ANN PT Start: 10-07-2024 End: 10-07-2024 Patient encounter procedure 10/07/2024 1:30 PM EST Office Visit Radiation Oncology [address] [place] [address] Rg Winston MD [address] [place] [address] RT AXILLA/NECK W/ IV - CONSENT DONE Radiation Oncology Comment on above: RT AXILLA/NECK W/ IV - CONSENT DONE Start: 10-07-2024 End: 10-07-2024 Nursing evaluation of patient and report 10/07/2024 1:15 PM EST Nurse Visit Radiation Oncology [address] [place] [address] Ina, Nurse Radt [address] [place] [address] Nurse Visit Radiation Oncology Comment on above: Nurse Visit Start: 09-26-2024 End: 09-26-2024 Nutrition therapy 09/26/2024 1:30 PM EST Education Nutrition Therapy [address] [place] [address] Margo Schumacher, RD [address] [place] [address] Arrived Nutrition Therapy Comment on above: Arrived Start: 09-19-2024 End: 09-19-2024 Clinical Support 09/19/2024 9:00 AM EST Clinical Support [facility] [address] [place] [address] Pilar Avina, [facility] [address] [place], [place] [id number] [facility] Start: 09-05-2024 Screening for malign ant neoplasm of colon [facility] Start: 09-04-2024 End: 09-04-2024 Patient encounter procedure [facility] Start: 09-01-2024 End: 09-01-2024 ambulatory [facility] Comment on above: Arrived Start: 08-29-2024 End: 08-29-2024 ambulatory 08/29/2024 9:00 AM EST Treatment [facility] [address] [place] [address] Aurea Sanchez, MARCEL [facility] Start: 08-27-2024 End: 08-27-2024 ambulatory 08/27/2024 9:00 AM EST Treatment [facility] [address] [place] [address] Aurea Sanchez, BUDGET ENGINEER [facility] Start: 08-22-2024 End: 08-22-2024 ambulatory [facility] Comment on above: Polyneuropathy (Prim benoit Dx); Poor balance; Weakness of both lower extremities Start: 08-07-2024 End: 08-07-2025 Cobalamin (Vitamin B12) [Mass/volume] in Serum or Plasma Vitamin B12 Lab Routine Lymphoma, unspecified body region, unspecified lymphoma type (CMS/HCC) Expected: 08/07/2024 (Approximate), Expires: 08/07/2025 [facility] Comment on above: Expected: 08/07/2024 (Approximate), Expires: 08/07/2025 Start: 08-07-2024 End: 08-07-2025 Copper, serum Copper, serum Lab Routine Lymphoma, unspecified body region, unspecified lymphoma type (CMS/HCC) Expected: 08/07/2024 (Approximate), Expires: 08/07/2025 [facility] Comment on above: Expected: 08/07/2024 (Approximate), Expires: 08/07/2025 Start: 08-07-2024 End: 08-07-2025 Hemoglobin A1c/Hemoglobin.total in Blood Hemoglobin A1c Lab Routine Lymphoma, unspecified body region, unspecified lymphoma type (CMS/HCC) Expected: 08/07/2024 (Approximate), Expires: 08/07/2025 [facility] Work Phone: Comment on above: Expected: 08/07/2024 (Approximate), Expires: 08/07/2025 Start: 08-07-2024 End: 08-07-2025 Immunofixation electrophoresis Immunofixation electrophoresis Lab Routine Lymphoma, unspecified body region, unspecified lymphoma type (CMS/HCC) Expected: 08/07/2024 (Approximate), Expires: 08/07/2025 [facility] Comment on above: Expected: 08/07/2024 (Approximate), [...] Start: 08-07-2024 End: 08-07-2024 Patient encounter procedure [facility] Comment on above: Arrived Start: 08-06-2024 Advance Directive Discussion Advance Directive Discussion [facility] Start: 07-10-2024 End: 07-10-2024 Patient encounter procedure [facility] Comment on above: Arrived Start: 07-02-2024 End: 07-02-2024 Patient encounter procedure [facility] Comment on above: Arrived Start: 06-27-2024 End: 06-27-2024 Patient encounter procedure 06/27/2024 9:00 AM EST Office Visit [facility] WEEKS [facility] [address] [facility] [place] [phone] Lillian Nagel AUD [address] [address] Arrived KAYCE HATHAWAY Comment on above: Arrived Start: 06-17-2024 End: 06-17-2025 EMG 2 Extremities EMG 2 Extremities Neurology Routine Weakness Expected: 06/17/2024, Expires: 06/17/2025 [facility] Work Phone: Comment on above: Expected: 06/17/2024 , Expires: 06/17/2025 Start: 06-16-2024 End: 06-16-2024 Patient encounter procedure 06/16/2024 3:00 PM EST Office Visit [facility] [address] [facility] [place] [id number] [facility] Start: 06-05-2024 End: 06-05-2024 Patient encounter procedure 06/05/2024 11:00 AM EDT Office Visit [facility] [address] [place] [phone] Shelby Arenas DO [address] [place] [address] [facility] Start: 04-06-2024 Covid-19 Vaccine ( season) Covid-19 Vaccine ( season) [facility] Start: 04-06-2024 Influenza vaccination P [facility] Start: 2021 Fall Risk Screening Fall Risk Screen ing [facility] Start: 07-19-2018 Pneumococcal Vaccine : 50+ (2 of 2 - PCV) Pneumococcal Vaccine: 50+ (2 of 2 - PCV) [facility] Start: 2016 RSV Vaccine (1 - Ris k 60-74 years 1-dose series) RSV Vaccine (1 - Risk 60-74 years 1-dose series) [facility] Start: 2011 Prostate specific an tigen measurement Prostate Cancer Screening Discussion [facility] Start: 10-02-2008 Diabetes Screening Diabetes Screenin g [facility] Start: 2006 Administration of varicella zoster vaccine Zoster (Shingles) Vaccine (1 of 2) [facility] Start: 2006 Shingrix Vaccine (1 of 2) Olivares grix Vaccine (1 of 2) [facility] Start: 2001 Prostate specific an tigen measurement Prostate Cancer Screening Discussion [facility] Start: 2001 Screening for malign ant neoplasm of colon [facility] Start: 1991 Lipid panel Lipid Screening [facility] Start: 1975 Administration of varicella zoster vaccine Zoster (Shingles) Vaccine (1 of 2) [facility] Start: 1975 DTaP,Tdap and Td Vac cines (1 - Tdap) DTaP,Tdap and Td Vaccines (1 - Tdap) [facility] Start: 1975 Shingrix Vaccine (1 of 2) Olivares grix Vaccine (1 of 2) [facility] Start: 1975 Urine microalbumin profile DTaP,Tdap,Td Vaccine (1 - Tdap) [facility] Start: 1974 Anxiety Screening Anxiety Screening [facility] Start: 1974 Depression Screening Depression Scre ening [facility] Start: 1974 Hepatitis C screening Hepatitis C Sc reening [facility] Start: 1968 Depression Screening Depression Scre ening [facility] Start: 1961 Covid-19 Vaccine (#1) Covid-19 Vacci ne (#1) [facility] Auditory function tests Auditory function tests Audiology Routine 05/26/2024 1:35 PM EDT [facility] Work Phone: Payers Date Payer Category Payer Medicare [employer] MEDICARE [id number] 2023 Medicare (Managed Care) [id number] 2023 Private Health Insurance [id number] 1959 [facility] [id number] 1959 Medicare [id number] 1959 Self-pay 1956 Unknown [id number] 2.16.840.1.342217.3.579. 2.593 1956 Unknown [id number] 2.16.840.1.487374.3.579. 2.593 1956 Unknown [id number] 2.16.840.1.091511.3.579. 2.593 1956 Unknown [id number] 2.16.840.1.911062.3.579. 2.593 1956 Unknown [id number] 2.16.840.1.851176.3.579. 2.727 1956 Unknown [id number] 2.16.840.1.134533.3.579. 2.727 1956 Unknown [id number] 2.16.840.1.147877.3.579. 2.727 1956 Unknown [id number] 2.16.840.1.067214.3.579. 2.727 1956 Unknown [id number] 2.16.840.1.450216.3.579. 2.727 1956 Unknown [id number] 2.16.840.1.800243.3.579. 2.727 1956 Unknown [id number] 2.16.840.1.496349.3.579. 2.727 1956 Unknown [id number] 2.16.840.1.933207.3.579. 2.727 1956 Unknown [id number] 2.16.840.1.716679.3.579. 2.1259 1956 Unknown [id number] 2.16.840.1.807378.3.579. 2.1259 1956 Unknown [id number] 2.16.840.1.304756.3.579. 2.9 1956 Unknown [id number] 2.16.840.1.161290.3.579. 2.1258 1956 Unknown [id number] 2.16.840.1.970792.3.579. 2.1258 1956 Unknown [id number] 2.16.840.1.693503.3.579. 2.1258 1956 Unknown [id number] 2.16.840.1.475643.3.579. 2.1258 1956 Unknown [id number] 2.16.840.1.616374.3.579. 2.1258 1956 Unknown [id number] 2.16.840.1.374920.3.579. 2.1258 1956 Unknown [id number] 2.16.840.1.038767.3.579. 2.1259 Private Health Insurance [facility] [id number] Unknown Unknown [place] [id number] Unknown [id number] 2.16.840.1.938437.3.579. 2.531 Unknown [id number] 2.16.840.1.527030.3.579. 2.531 Unknown [id number] 2.16.840.1.895149.3.579. 2.531 Social History Date Type Detail Facility Start: 01-21-2024 End: 09-25-2024 Tobacco smoking status Never smoked tobacco (finding) [facility] Tobacco smoking status Never [facility] Start: 07-29-2024 End: 09-25-2024 Sex Assigned At Male [facility] Start: 1955 Sex Assigned At Male F [facility] Tobacco smoking status NHIS Tobacco smoking consumption unknown [facility] Start: 1955 Sex assigned at Not on file [facility] Start: 07-29-2024 End: 09-25-2024 Tobacco use and exposure Smokeless tobacco non-user [facility] Start: 07-31-2024 Alcoholic beverage intake Lifetime non-drinker (finding) [facility] Start: 07-29-2024 End: 09-25-2024 History of Social function [facility] Start: 05-15-2024 Sex Male (finding) [facility] Start: 05-15-2024 Gender identity Identifies as male gender (finding) [facility] Start: 05-15-2024 Sexual orientation Heterosexual (fin ding) [facility] Start: 09-25-2024 End: 11-05-2024 Alcoholic beverage intake Ex-drinker (finding) [facility] NEGATED: Highlighted rowStart: NINF History of tobacco use Passive smoker [facility] Functional Status Date Assessment Result Facility 06-03-2024 Functional Status N/A [facility] [place] 04-30-2024 Functional Status N/A [facility] [place] 01-21-2024 Functional Status N/A [facility] Clinical Notes 01-21-2024 to 12-18-2024 Rg Winston MD - 12/18/2024 11:59 PM EDTTelephone Encounter - Ana Paula Chauhan RN - 12/09/2024 4:03 PM EDTTelephone Encounter - Ana Paula Chauhan RN - 12/09/2024 4:03 PM EDTPatient Instructions Note Date & Type Note Facility 12-18-2024 Note HNO ID: [id number] Author: RG WINSTON MD Service: ? Author [...] under the care of Dr. Donnelly at [facility] and repeat pet imaging after the [...] result of the inadequacies/shortcomings of said technology/software. [employer] [facility] [facility] History of Present illness Narrative Radiation Oncology - Follow Up Note PATIENT NAME: Nabeel Tran PATIENT Signed by: Rg Winston MD This document has been created with the use of voice recognition technology. It may contain inaccuracies, misspellings, inaccurate syntax or inappropriate word context that are a result of the inadequacies/shortcomings of said technology/software. documented in this encounter [facility] 12-09-2024 Telephone encounter Note I left another message for Nabeel to return my call. Ana Paula Chauhan RN [facility] 12-09-2024 Miscellaneous Notes I left another message for Nabeel to return my call. Ana Paula Chauhan RN I called and left a message for Nabeel to call back for an update post radiation completion. Ana Paula Chauhan RN documented in this encounter [facility] 12-02-2024 Telephone encounter Note I called and left a message for Nabeel to call back for an update post radiation completion. Ana Paula Chauhan RN [facility] 11-17-2024 Note HNO ID: [id number] Author: RG WINSTON MD Service: ? Author Type: Physician Type: Progress Notes Filed: 11/27/2024 04:40 Note Text: [facility] Radiation Oncology Department RADIATION ONCOLOGY - COMPLETION NOTE PATIENT: NABEEL TRAN: 1955 DATES OF TREATMENT: 10-21-2024 to 11-17-2024 DIAGNOSIS: Mr. 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 He completed a total of 4 cycles of ABVD under the care of Dr. Donnelly at [facility] and repeat pet imaging after the [...] response. Staff Physician Rg Winston M.D. / KG 54:40 AM Electronically Signed cc: Sonia Donnelly MD ([place]llin) Ailin Green, LATASHA [address] [place] [address] [place] [id number] [facility] 11-14-2024 Note Education (NUTRSA) NABEEL TRAN ([id number]) 1955 M Date Time Provider Department 11/14/24 2:15 PM MARGO SCHUMACHER Reason for Visit: Nutrition Telephone [2013] Cmt: No answer Visit Diagnosis:Hodgkin lymphoma, unspecified Hodgkin lymphoma type, unspecified body region (HCC) [C81.90] Order(s):CONSULT TO ONCOLOGY NUTRITION [2622429] Order #: [id number]: 1 During your visit today, we recorded [...] Encounter Status:Closed by MARGO SCHUMACHER on 11/17/24 [facility] 11-14-2024 Note HNO ID: [id number] Author: MARGO SCHUMACHER RD Service: ? Author Type: Registered Dietitian Type: Progress Notes Filed: 11/17/2024 08:01 Note Text: Oncology Nutrition Therapy Reassessment I have communicated my name and active licensure. The patient's identity and physical location were verified at the time of this visit. Either the patient or their legal software sales representative has been informed of the risks and benefits of -- and alternatives to -- treatment through a remote evaluation and consents to proceed with the evaluation remotely. 6423- called pt for scheduled phone appointment. No answer, left message with return contact information. Signed by: Margo Schumacher RD, GROUND SOURCE HEAT PUMP TECHNICIAN, LD [facility] 11-14-2024 History of Present illness Narrative Oncology Nutrition Therapy Reassessment I have communicated my name and active licensure. The patient's identity and physical location were verified at the time of this visit. Either the patient or their legal software sales representative has been informed of the risks and benefits of -- and alternatives to -- treatment through a remote evaluation and consents to proceed with the evaluation remotely. 1415- called pt for scheduled phone appointment. No answer, left message with return contact information. Signed by: Margo Schumacher RD, GROUND SOURCE HEAT PUMP TECHNICIANJUSTINE documented in this encounter [facility] 11-13-2024 Note HNO ID: [id number] Author: RG WINSTON MD Service: ? Author [...] under the care of Dr. Donnelly at [facility] and repeat pet imaging after the third cycle on 09/08/2024 noted excellent metabolic response (Deauville 3). COURSE: Consolidative AREA TREATED: Right axilla/neck CURRENT DOSE: 59859 cGy in 18 fx PLANNED DOSE: 3600 [...] radiation treatment as planned. Rg Winston MD [facility] 11-13-2024 History of Present illness Narrative Radiation [...] under the care of Dr. Donnelly at [facility] and repeat pet imaging after the third cycle on 09/08/2024 noted excellent metabolic response (Deauville 3). COURSE: Consolidative AREA TREATED: Right axilla/neck CURRENT DOSE: 14229 cGy in 18 fx PLANNED DOSE: 3600 [...] Rg Winston MD documented in this encounter [facility] 11-05-2024 Note HNO ID: [id number] Author: RG WINSTON MD Service: ? Author [...] under the care of Dr. Donnelly at [facility] and repeat pet imaging after the [...] investigate if it persists. Rg Winston MD [facility] 11-05-2024 History of Present illness Narrative Radiation Oncology - On Treatment Review (OTR) Note PATIENT NAME: Nabeel Tran PATIENT Rg Winston MD documented in this encounter [facility] 10-29-2024 Note HNO ID: [id number] Author: RG WINSTON MD Service: ? Author [...] under the care of Dr. Donnelly at [facility] and repeat pet imaging after the [...] expected parameters. Continue radiation treatment as planned. gR Winston MD [facility] 10-29-2024 History of Present illness Narrative Radiation Oncology - On Treatment Review (OTR) Note PATIENT NAME: Nabeel Tran PATIENT DIAGNOSIS: Mr. 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 He completed a total of 4 cycles of ABVD under the care of Dr. Donnelyl at [facility] and repeat pet imaging after the [...] Rg Winston MD documented in this encounter [facility] 10-21-2024 Note HNO ID: [id number] Author: RG WINSTON MD Service: ? Author [...] under the care of Dr. Donnelly at [facility] and repeat pet imaging after the [...] the course of treatment. Rg Winston MD [facility] 10-21-2024 History of Present illness Narrative Radiation [...] under the care of Dr. Donnelly at [facility] and repeat pet imaging after the [...] Rg Winston MD documented in this encounter [facility] 10-07-2024 History of Present illness Narrative NABEEL TRAN [id number] 10/07/2024 [facility] Radiation Oncology Department SIMULATION NOTE DATE OF SIMULATION: 10/07/2024 THERAPIST: Marjan Werner MACHINE: Only-apartments DIAGNOSIS: Other classical Hodgkin lymphoma, lymph nodes [...] CDT 56:24 PM documented in this encounter [facility] 10-07-2024 History of Present illness Narrative NABEEL TRAN [id number] 10/07/2024 [facility] Department of Radiation Oncology Treatment Planning Note [...] M.D. 2:58 PM documented in this encounter [facility] 10-07-2024 Note HNO ID: [id number] Author: RG WINSTON MD Service: ? Author Type: Physician Type: Progress Notes Filed: 10/08/2024 18:24 Note Text: NABEEL TRAN W [id number] 10/07/2024 [facility] Radiation Oncology Department SIMULATION NOTE DATE OF SIMULATION: 10/07/2024 THERAPIST: Marjan Werner MACHINE: Only-apartments DIAGNOSIS: Other classical Hodgkin lymphoma, lymph nodes [...] Rg Winston M.D. / CDT 56:24 PM [facility] 10-07-2024 Note HNO ID: [id number] Author: RG WINSTON MD Service: ? Author Type: Physician Type: Progress Notes Filed: 10/20/2024 12:58 Note Text: NABEEL TRAN W [id number] 10/07/2024 [facility] Department of Radiation Oncology Treatment Planning Note [...] Electronically Signed Rg Winston M.D. 2:58 PM [facility] 10-01-2024 Telephone encounter Note Called and spoke to Nabeel's . She confirmed his appointment times for 10/07/24 with an arrival of 1:00 PM and no special instructions. A nurse visit was added to the schedule for 1:15PM Mady Woodson PSS [facility] 10-01-2024 Miscellaneous Notes Called and spoke to [...] Coty Chan, RN documented in this encounter [facility] 10-01-2024 Telephone encounter Note Sim scheduled on 10/07/24 at 1:30pm PSS - Please schedule nurse visit at 1:15 & notify pt of 1:00pm arrival time, no special instructions. Thanks! Kathleen Werner RT(R)(T) [facility] Work Phone: 09-26-[address] [...] peanut butter, etc. documented in this encounter [facility] 09-26-2024 Note Education (NUTRSA) NABEEL TRAN ([id number]) 1955 M Date Time Provider Department 09/26/24 [...] Encounter Status:Closed by MARGO SCHUMACHER on 09/26/24 [facility] 09-26-2024 Telephone encounter Note Rad ed and Nutri scheduled [facility] 09-26-2024 Note HNO ID: [id number] Author: MARGO SCHUMACHER RD Service: ? Author Type: Registered Dietitian Type: Progress Notes Filed: 09/26/2024 13:51 Note Text: Oncology Nutrition Therapy Initial Assessment I have communicated my name and active licensure. The patient's identity and physical location were verified at the time of this visit. Either the patient or their legal software sales representative has been informed of the risks [...] dacarbazine) Medical Oncologist: Dr. Donnelly at the [facility] Radiation Oncologist: Dr. Winston PMHx: insulin dependent diabetes per Pt is [place] but is able to verify his name [...] Dosing Weight: 85.4 kg Estimated kilocalorie needs: 2964-9253 kilocalories determined by 25-30 kcal/kg Estimated protein needs: 85-111 grams determined by 1.0-1.3 g/kg Dosing weight Estimated fluid needs: ~3716-2454 milliliters based on 1 mL per kcal [...] ondansetron orally disin (more content not included)... [facility] 09-26-2024 History of Present illness Narrative Oncology Nutrition Therapy Initial Assessment I have communicated my name and active licensure. The patient's identity and physical location were verified at the time of this visit. Either the patient or their legal software sales representative has been informed of the risks [...] dacarbazine) Medical Oncologist: Dr. Donnelly at the [facility] Radiation Oncologist: Dr. Winston PMHx: insulin dependent diabetes per Pt is [place] but is able to verify his name [...] Dosing Weight: 85.4 kg Estimated kilocalorie needs: 2037-6497 kilocalories determined by 25-30 kcal/kg Estimated protein needs: 85-111 grams determined by 1.0-1.3 g/kg Dosing weight Estimated fluid needs: ~9171-9388 milliliters based on 1 mL per kcal [...] 15 minutes Signed by: Margo Schumacher RD, GROUND SOURCE HEAT PUMP TECHNICIAN, LD documented in this encounter [facility] 09-25-2024 Note HNO ID: [id number] Author: RG WINSTON MD Service: ? Author Type: Physician Type: Progress Notes Filed: 10/21/2024 08:06 Note Text: Radiation Oncology - New Patient/Consult Note PATIENT NAME: Nabeel Tran PATIENT REQUESTING PHYSICIAN: Dr. 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 He was accompanied today by his family. Final recommendations will be communicated back to the requesting physician by way of the shared medical record, or letter to requesting physician via US mail. HISTORY OF PRESENT ILLNESS: Mr. Tran is a 69-year old gentleman [place], [place] with a history of hearing loss [...] atypical lymphoproliferative disorder after second review through [facility]. A second core biopsy was obtained on [...] has 2 children, and lives in the [facility]. 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 He denies tobacco or alcohol use. [...] under the care of Dr. Donnelly at [facility] and repeat pet imaging after the third cycle on 09/08/2024 noted excellent metabolic response (more content not included)... [facility] 09-25-2024 History of Present illness Narrative Images from the original note were not included. Radiation Oncology - New Patient/Consult Note PATIENT NAME: Nabeel Tran PATIENT Signed: Rg Winston MD I spent a total of 60 minutes on the date of the service which included preparing to see the patient, [id number] patient care, and counseling and educating the [...] Coty Chan RN documented in this encounter [facility] 09-25-2024 History of Present illness Narrative Radiation Therapy - Patient Education Note PATIENT NAME: Nabeel Tran PATIENT September 25, 2024 [facility] FACILITY/LOCATION: [facility] [place] READINESS TO LEARN Cognitive Ability: Alert and [...] Coty Chan RN documented in this encounter [facility] 09-25-2024 Note HNO ID: [id number] Author: COTY CHAN RN Service: ? Author Type: Registered Nurse Type: Progress Notes Filed: 09/26/2024 08:31 Note Text: Radiation Therapy - Patient Education Note PATIENT NAME: Nabeel Tran PATIENT September 25, 2024 [facility] FACILITY/LOCATION: [facility] [place] READINESS TO LEARN Cognitive Ability: Alert and [...] Radiation therapist. Signed by: Coty Chan RN [facility] 09-25-2024 Telephone encounter Note Rad Ed today Dietary Eval Schedule Simulation treating R Axilla and Neck with IV Contrast- plan for possible 5 point mask- 20 Fx Sim on 10/06 Consent is Signed *Pt does have onbody glucose monitor-- he and were instructed on need to remove and of need to do finger stick blood sugars* Plan start 10/20 Coty Chan RN [facility] 09-25-2024 Note HNO ID: [id number] Author: COTY CHAN RN Service: ? Author [...] throughout. and pt aware. Coty Chan RN [facility] 09-25-2024 Note Education ([place] [employer]) NABEEL TRAN ([id number]) 1955 M Date Time Provider Department 09/25/24 [...] Encounter Status:Closed by COTY CHAN on 09/26/24 [facility] 09-23-2024 Telephone encounter Note Called to check [...] w/ referring provider continuation could be suitable. [facility] 09-23-2024 Miscellaneous Notes Called to check on [...] could be suitable. documented in this encounter [facility] 09-19-2024 History of Present illness Narrative AUDIOLOGIC [...] worse than when it was tested at [facility] in May 2024. 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 Katarina Chew, DIANE-A Water Filterer Helper documented in this encounter [facility] [employer] [facility] 09-15-2024 Note [place] [facility] Subjective Nabeel Tran is a 69 y.o. [...] placement and then was admitted to the [facility] on 06/13/2024 with atrial fibrillation and [...] Reactions Jardiance [Empagl (more content not included)... [facility] 09-08-2024 Miscellaneous Notes MRI Brain in May 2024 with no left sided abnormalities noted. Right IAC enhancement, right cochlear and CN 7 enhancement. Please schedule patient for follow up with Dr. Yanes. documented in this encounter [facility] 09-08-2024 Telephone encounter Note MRI Brain in May 2024 with no left sided abnormalities noted. Right IAC enhancement, right cochlear and CN 7 enhancement. Please schedule patient for follow up with Dr. Yanes. [facility] 09-08-2024 Miscellaneous Notes Hi Allison, doesn't look like we have the MRI brain report. Can you look into it? Thank you documented in this encounter [facility] 09-08-2024 Telephone encounter Note Hi Allison, doesn't look like we have the MRI brain report. Can you look into it? Thank you [facility] 09-01-2024 History of Present illness Narrative Images [...] to be instructed in home exercise program. Alf Goals: To be met in 10 weeks [...] sign below. Date: documented in this encounter [facility] 08-20-2024 History of Present illness Narrative Physical [...] LE strength, balance, and endurance. Outcome Measure: 34 Short Term Goal: To be met in 2 weeks Goal 1: Pt to be instructed in home exercise program. Electronic Resources Librarian Goals: To be met in 10 weeks [...] sign below. Date: documented in this encounter [facility] 08-15-2024 Miscellaneous Notes Thank you Allison. [...] me to do. documented in this encounter [facility] 08-15-2024 Telephone encounter Note Thank you Allison. I do not see a report for the MRI Brain. Do we have that radiology report? [facility] 08-15-2024 Telephone encounter Note I just looked and it looks like they never faxed that one or it got lost. I can call to have them resend it or it looks like it is in under the imaging. Let me know what you would like me to do. [facility] 08-13-2024 Miscellaneous Notes Ailin Green's Office - Lorna called 08/13, patient saw Dr. Ibarra on 07/29/24. Lorna needs office notes faxed to [phone]. Faxed over office not to number provided. documented in this encounter [facility] 08-13-2024 Telephone encounter Note Ailin Green's Office - Lorna called 08/13, patient saw Dr. Ibarra on 07/29/24. [facility] office notes faxed to [phone]. [facility] 08-13-2024 Telephone encounter Note Faxed over office not to number provided. [facility] 08-12-2024 Miscellaneous Notes Just wanted to check if anyone had gotten his head and neck imaging from the outside hospital back? documented in this encounter [facility] 08-12-2024 Telephone encounter Note Just wanted to check if anyone had gotten his head and neck imaging from the outside hospital back? [facility] 08-07-2024 History of Present illness Narrative Images from the original note were not included. Chief complaint: Unsteadiness and generalized weakness and falls Subjective Nabeel Young Juanygia, 69 y.o., male Patient presents today for [...] , wrist extensors , wrist flexor , ibm mainframe systems programmer strength 4-/5. LUE Strength deltoid , biceps , triceps , wrist extensors , wrist flexor , ibm mainframe systems programmer strength 4-/5. RLE Strength illopsoas, quadriceps, tibialis [...] reflex 1+ . Flowers's sign negative. Coordination: Beyvwb-ok-ufyc testing and rapid alternating movements are normal [...] and return instructions documented in this encounter [facility] 07-29-2024 History of Present illness Narrative Images from the original note were not included. [facility] [address] [place] [id number] SUBJECTIVE: Patient ID (1955): Nabeel Tran is a 68 y.o. male presents today for Chief Complaint Patient presents with Cerumen Impaction Bilateral Hearing Loss Laterality HPI: Nabeel is presenting today with bilateral profound hearing loss. 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 Although every effort was made to ensure the accuracy of this automated speech communication instructor, some errors in speech communication instructor may have occurred. documented in this encounter [facility] 07-10-2024 History of Present illness Narrative Images from the original note were not included. Reason for Appointment: EMG Patient: Nabeel Tran : 1955 EMG Computer: Humble Bundle Referring Physician: Dr. Shelby Arenas EMG: BLE cake stripper: Gilbert Gaffney RT(R) Office Location: [place] Reason for EMG: c/o numbness/tingling in bilateral feet. Hx of surgery to low back. Pt currently undergoing chemo. Hx of DM. Taking Eliquis. Comments: Procedure was explained to the patient & who expressed understanding. Patient appeared to have tolerated the test well despite some discomfort due to the nature of the test. documented in this encounter [facility] 07-02-2024 History of Present illness Narrative [...] offered the opportunity to try a different barrel washer machine to see if he would perceive success. Patient would prefer to return the instruments. A return was processed in [employer] portal. Informed patient he will be refunded by [employer]. Gave his the [facility] number in the event they needed to discuss the refund process. Patient to let us know if he would like to try [employer] devices again in the future. documented in this encounter [facility] 06-27-2024 History of Present illness Narrative [...] the trial period. documented in this encounter [facility] 06-19-2024 Note [place] [facility] Subjective Nabeel Tran is a 68 [...] morning., Disp: , (more content not included)... [facility] 06-17-2024 History of Present illness Narrative Images from the original note were not included. Chief complaint: Unsteadiness and generalized weakness and falls Subjective Nabeelchelsi Tran, 68 y.o., male Nabeel presents today for a neurological consultation at the request of Ailin Green CNP for unsteady gait, generlized weakness, falls. Pt was seen at [facility] labs, U/A, PET scan, ECG and [...] , wrist extensors , wrist flexor , ibm mainframe systems programmer strength 4-/5. LUE Strength deltoid , biceps , triceps , wrist extensors , wrist flexor , ibm mainframe systems programmer strength 4-/5. RLE Strength illopsoas, quadriceps, tibialis [...] reflex 2+ . Flowers's sign negative. Coordination: Kxmmfp-rl-yghk testing and rapid alternating movements are normal [...] and return instructions documented in this encounter [facility] 06-16-2024 History of Present illness Narrative [...] The right CROS was coupled to 2S aligner barrel and receiver with a 10 mm open dome. The left hearing aid was coupled to a [employer] custom canal lock earmold. Patient does not use a smart phone. Patient did not want to schedule a follow up due to his health and many appointments. Patient's states she will call for follow up. Cosigned by FRANKIE Spears at 06/17/2024 11:28 AM EST documented in this encounter [facility] 06-03-2024 Note General Surgery Offi ce/Clinic [...] nodes of axilla and upper limb) plan kazffb-[id number] insertion for chemotherapy; informed consent obtained. Ancef [...] Tobacco Use:. House (more content not included)... [facility] Comment on above: Result Comment: Elec [...] is eligible for hearing aids through his [facility] [employer] Benefit. Recommend a custom mold for the left ear. Ear impression taken of left ear without incident. Pt ordered mid level technology. Order completed in [employer] portal and pt scheduled for HAF 06-16-24 in [place]. documented in this encounter [facility] 03-28-2024 Note [place] [facility] Subjective Nabeel Tran is a 68 [...] HDL 42. TSH (more content not included)... [facility] 02-15-2024 Hospital Discharge instructions Follow Up Care 02/15/2024 09:24:50 With:DONN ELLIS, Moody Aranda, URL Address: [facility] [address], [place] [address]- When: Unknown [facility] 01-21-2024 Note Chief Complaint Referral *LUTs [...] neoplasm of prostat (more content not included)... [facility] Comment on above: Result Comment: Elec tronically Signed By: DONN ELLIS, Moody Aranda\.br\Date and Time Signed: 01/21/24 12:46 EDT\.br\Electronically Co-Signed [...] urethra. Follow these instructions at home: Take jole-[id number]-[id number] and prescription medicines only as told by [...] provider. Document Revised: 02/08/2022 Document Reviewed: 02/08/2022 [employer] Patient Education 2022 99 Fahrenheit. Follow Up Care 09/13/2023 09:26:56 With:Moody POP MD, URL Address: [facility] [address] , [place] [address]- When: Unknown [facility] Evaluation + Plan note No data available for this section [facility] Evaluation + Plan note Future Appointments Appointment Date:06/09/2024 10:45:00 AM Scheduled Provider:Moody POP MD Location:[facility] Appointment Type:URO Office Visit [facility] Evaluation note No assessment inform ation available [facility] Work Phone: Evaluation note Diagnosis Sudden [...] loss, bilateral- Primary documented in this encounter [facility] HealthcareEvaluation note* Diagnosis Sensorineural hearing loss, bilateral- Primary documented in this encounter [facility] HealthcareEvaluation note* Diagnosis Weakness- Primary Other malaise and fatigue Polyneuropathy Unspecified hereditary and idiopathic peripheral neuropathy documented in this encounter [facility] HealthcareEvaluation note* Diagnosis Sensorineural hearing loss, asymmetrical- Primary 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 Hodgkin lymphoma, unspecified Hodgkin lymphoma type, unspecified body region (CMS-HCC) documented in this encounter [facility]* Diagnosis Lymphoma, unspecified body region, unspecified lymphoma type (CMS/HCC)- Primary Malnutrition, unspecified type (CMS/HCC) Polyneuropathy Unspecified hereditary and idiopathic peripheral neuropathy documented in this encounter [facility] HealthcareEvaluation note* Diagnosis Polyneuropathy- Primary Unspecified hereditary and idiopathic peripheral neuropathy Poor balance Weakness of both lower extremities documented in this encounter [facility] HealthcareEvaluation note* Diagnosis Polyneuropathy- Primary Unspecified hereditary and idiopathic peripheral neuropathy Poor balance Weakness of both lower extremities documented in this encounter [facility] HealthcareEvaluation note* Diagnosis Polyneuropathy- Primary Unspecified hereditary and idiopathic peripheral neuropathy Poor balance Weakness of both lower extremities documented in this encounter [facility] HealthcareEvaluation note* Diagnosis Sensorineural hearing loss (SNHL) of both ears- Primary documented in this encounter [facility]* Diagnosis Hodgkin lymphoma, unspecified Hodgkin lymphoma type, unspecified body region (HCC)- Primary [facility] Diagnosis Hodgkin lymphoma, unspecified Hodgkin lymphoma type, unspecified body region (HCC)- Primary documented in this encounter [facility] note* Diagnosis Hodgkin lymphoma, unspecified Hodgkin lymphoma type, unspecified body region (HCC)- Primary documented in this encounter [facility] note* Diagnosis Hodgkin lymphoma, unspecified Hodgkin lymphoma type, unspecified body region (HCC)- Primary documented in this encounter [facility] note* Diagnosis Hodgkin lymphoma, unspecified Hodgkin lymphoma type, unspecified body region (HCC)- Primary documented in this encounter [facility] note* Diagnosis Hodgkin lymphoma, unspecified Hodgkin lymphoma type, unspecified body region (HCC) documented in this encounter [facility] note* Diagnosis Hodgkin lymphoma, unspecified Hodgkin lymphoma type, unspecified body region (HCC)- Primary documented in this encounter [facility] Discharge instructions No data available for this section [facility] InstructionsNot on filedocumented in this encounter [facility] filedocumented in this encounter [facility] filedocumented in this encounter [facility] No data available for this section [facility] reason for visit Narrative* Consultation (Routine) - Closed Specialty Diagnoses / Procedures Referred By Celine horton Referred To Contact Neurology Diagnoses Unsteadiness on feet Weakness Procedures [place] OFFICE/OUTPATIENT NEW LOW MDM 30 MINUTES Ailin Green MD [address] [place] [address] Phone: tel:[phone] fax: Nabeel New MD [address] [place] [address] Phone: tel: fax: Referral ID Status Reason Start Date Expiration Date V isits Requested Visits Authorized [id number] Closed Consult and Treat 05/16/2024 11/12/2024 1 1 [facility] N[facility]* Consultation (Routine) - Pending Review Specialty Diagnoses / Procedures Referred By Celine horton Referred To Contact Physical Therapy Diagnoses Polyneuropathy Procedures [place] OFFICE/OUTPATIENT NEW HIGH MDM 60 MINUTES Shelby Arenas, DO [address] [place] [address] Phone: tel: fax: [facility] [address] [address] Phone: tel: fax: Referral ID Status Reason Start Date Expiration Date Visits Requested Visits Authorized [id number] Pending Review Specialty Services Required 08/20/2024 02/03/2025 1 3 [facility] Narrative* Consultation (Routine) - Authorized Specialty Diagnoses / Procedures Referred By Celine horton Referred To Contact Physical Therapy Diagnoses Polyneuropathy Procedures [place] OFFICE/OUTPATIENT NEW HIGH MDM 60 MINUTES Shelby Arenas, DO [address] [place] [address] Phone: tel: fax: [facility] [address] [address] Phone: tel: fax: Referral ID Status Reason Start Date Expiration Date Visits Requested Visits Authorized [id number] Authorized Specialty Services Required 08/20/2024 02/03/2025 6 [...] CREATED AUTHOR AUTHOR'S ORGANIZ ATION 09/01/2021 [facility] DATE CREATED AUTHOR AUTHOR'S ORGANIZ ATION 06/08/2024 [facility] DATE CREATED AUTHOR AUTHOR'S ORGANIZ ATION 06/11/2024 [facility] DATE CREATED AUTHOR AUTHOR'S ORGANIZ ATION 09/02/2024 [facility] EPIC DATE CREATED AUTHOR AUTHOR'S ORGANIZ ATION 01/14/2025 [facility] DATE CREATED AUTHOR AUTHOR'S ORGANIZ ATION 02/27/2025 [facility] Patient Care team informatio n (unrecognized [...] Member Role Status Dates Jassi Alegria MD [facility] Attending Provider Active Start: April 23, 2024 End: April 23, 2024 Team Status: Inactive Member Role Status Dates Sonia Donnelly MD Attending Provider Active St art: May 29, 2024 End: May 29, 2024 Ailin Green NP-[facility]ardo Primary Care Provider Active Start: May 29, 2024 End: May 29, 2024 Team Status: Active Member Role Status Dates González Moon DO Primary Care Provider Active Adjunct Latin Professor Relationship Specialty Start Date End Date Ailin Green MD [address] [place] [address] Referring Physician Family Medicine 05/16/24 Ailin Green MD [address] [place] [address] Referring Physician Family Medicine 05/26/24 Adjunct Latin Professor Relationship Specialty Start Date End Date Ailin Green MD [address] [place] [address] Referring Physician Family Medicine 05/16/24 [place] [address] [place] [address] Referring Physician Family Medicine 05/26/24 Adjunct Latin Professor Relationship Specialty [place] [address] [place], [place] [phone] PCP - General Family Medicine 06/16/24 Ailin Green MD [address] [place], [place] [phone] Referring Physician Family Medicine 05/16/24 Aliin Green MD [address] [place], [place] [phone] Referring Physician Family Medicine 05/26/24 Adjunct Latin Professor Relationship Specialty Start Date End Date Jah Damian MD [address] [place], [place] [phone] PCP - General Family Medicine 06/16/24 Ailin Green MD [address] [place] [address] Referring Physician Family Medicine 05/16/24 [place] [address] [place] [address] Referring Physician Family Medicine 05/26/24 Adjunct Latin Professor Relationship Specialty Start Date End Date Jah Damian MD [address] [place] [address] PCP - General Family Medicine 06/16/24 Ailin Green MD [address] [place] [address] Referring Physician Family Medicine 05/16/24 Ailin Green MD [address] [place] [address] Referring Physician Family Medicine 05/26/24 Adjunct Latin Professor Relationship Specialty Start Date End Date Jah Damian MD [address] [facility] [place] [address] PCP - General Family Medicine 06/16/24 Ailin Green MD [address] [place] [address] Referring Physician Family Medicine 05/16/24 Ailin Green MD [address] [place] [address] Referring Physician Family Medicine 05/26/24 Adjunct Latin Professor Relationship Specialty Start Date End Date Jah Damian MD [address] [facility] [address] PCP - General Family Medicine 06/16/24 Ailin Green MD [address] [place] [address] Referring Physician Family Medicine 05/16/24 Ailin Green MD [address] [facility] [place] [address] Referring Physician Family Medicine 05/26/24 Adjunct Latin Professor Relationship Specialty Start Date End Date Jah Damian MD [address] [facility] [address] PCP - General Family Medicine 06/16/24 Ailin Green MD [address] [place] [address] Referring Physician Family Medicine 05/16/24 Ailin Green MD [address] [place] [address] Referring Physician Family Medicine 05/26/24 Adjunct Latin Professor Relationship Specialty Start Date End Date Jah Damian MD [address] [place] [phone] PCP - General Family Medicine 06/16/24 Ailin Green MD [address] [place] [address] Referring Physician Family Medicine 05/16/24 [place] [address] [place] [address] Referring Physician Family Medicine 05/26/24 Adjunct Latin Professor Relationship Specialty [place] [address] [place] [address] Referring Physician Family Medicine 05/16/24 [place] [address] [place] [address] Referring Physician Family Medicine 05/26/24 Shelby Arenas DO [address] [address] Referring Physician Neurology 08/07/24 Adjunct Latin Professor Relationship Specialty Start Date End Date Ailin Green MD [address] [place] [address] Referring Physician Family Medicine 05/16/24 [place] [address] [place] [address] Referring Physician Family Medicine 05/26/24 Shelby Arenas DO [address] [place] [phone] Referring Physician Neurology 08/07/24 Adjunct Latin Professor Relationship Specialty [place] [address] [place] [address] Referring Physician Family Medicine 05/16/24 Ailin Green MD [address] [place] [address] Referring Physician Family Medicine 05/26/24 Shelby Arenas DO [address] [place] [phone] Referring Physician Neurology 08/07/24 Adjunct Latin Professor Relationship Specialty Start Date End Date Ailin Green MD [address] [place] [address] Referring Physician Family Medicine 05/16/24 [place] [address] [place] [address] Referring Physician Family Medicine 05/26/24 Shelby Arenas DO [address] [address] Referring Physician Neurology 08/07/24 Adjunct Latin Professor Relationship Specialty Start Date End Date Ailin Green MD [address] [place] [address] Referring Physician Family Medicine 05/16/24 Ailin Green MD [address] [place] [address] Referring Physician Family Medicine 05/26/24 Shelby Arenas DO [address] [place] [phone] Referring Physician Neurology 08/07/24 Adjunct Latin Professor Relationship Specialty Start Date End Date Ailin Green MD [address] [place] [address] Referring Physician Family Medicine 05/16/24 Ailin Green MD [address] [place] [address] Referring Physician Family Medicine 05/26/24 Shelby Arenas DO [address] [place] [phone] Referring Physician Neurology 08/07/24 Adjunct Latin Professor Relationship Specialty Start Date End Date Ailin Green MD [address] [place] [address] Referring Physician Family Medicine 05/16/24 [place] [address] [place] [address] Referring Physician Family Medicine 05/26/24 Shelby Arenas DO [address] [address] Referring Physician Neurology 08/07/24 Adjunct Latin Professor Relationship Specialty Start Date End Date Ailin Green MD [address] [place] [address] Referring Physician Family Medicine 05/16/24 Ailin Green MD [address] [place] [address] Referring Physician Family Medicine 05/26/24 Shelby Arenas DO [address] [address] Referring Physician Neurology 08/07/24 Adjunct Latin Professor Relationship Specialty Start Date End Date Ailin Green MD [address] [place] [address] Referring Physician Family Medicine 05/16/24 [place] [address] [place] [address] Referring Physician Family Medicine 05/26/24 Shelby Arenas DO [address] [address] Referring Physician Neurology 08/07/24 Adjunct Latin Professor Relationship Specialty Start Date End Date Ailin Green MD [address] [place] [address] Referring Physician Family Medicine 05/16/24 Ailin Green MD [address] [place] [address] Referring Physician Family Medicine 05/26/24 Shelby Arenas DO [address] [address] Referring Physician Neurology 08/07/24 Adjunct Latin Professor Relationship Specialty Start Date End Date Margo Sch[address] [place] [address] Registered Dietitian Nutrition 09/26/24 Adjunct Latin Professor Relationship Specialty Start Date End Date KarunaMargo RD [address] [place] [address] Registered Dietitian Nutrition 09/26/24 Adjunct Latin Professor Relationship Specialty Start Date End Date Margo Schumacher [address] [place] [address] Registered Dietitian Nutrition 09/26/24 Adjunct Latin Professor Relationship Specialty Start Date End Date Margo Schumacher [address] [place] [address] Registered Dietitian Nutrition 09/26/24 Adjunct Latin Professor Relationship Specialty Start Date End Date Margo Schumacher [address] [place] [address] Registered Dietitian Nutrition 09/26/24 Adjunct Latin Professor Relationship Specialty Start Date End Date Margo Schumacher [address] [place] [address] Registered Dietitian Nutrition 09/26/24 Adjunct Latin Professor Relationship Specialty Start Date End Date Margo Schumacher [address] [place] [address] Registered Dietitian Nutrition 09/26/24 Adjunct Latin Professor Relationship Specialty Start Date End Date Margo Schumacher [address] [place] [address] Registered Dietitian Nutrition 09/26/24 Adjunct Latin Professor Relationship Specialty Start Date End Date Margo Schumacher [address] [place] [address] Registered Dietitian Nutrition 09/26/24 Adjunct Latin Professor Relationship Specialty Start Date End Date Peter Ailin LATASHA Israel [address] [place] [address] PCP - General Internal Medicine 12/18/[address] [place] [address] [place] [address] Registered Dietitian Nutrition 09/26/24 Goals (unrecognized section [...] or prosecute any alcohol or drug abuse patient.[facility] Center[facility] the event this information is protected by the Federal Confidentiality of Alcohol and Drug Abuse Patient Records regulations: The Federal rules restrict any use of the information to criminally investigate or prosecute any alcohol or drug abuse patient.[facility] Center[facility] the event this information is protected by the Federal Confidentiality of Alcohol and Drug Abuse Patient Records regulations: The Federal rules restrict any use of the information to criminally investigate or prosecute any alcohol or drug abuse patient.[facility] Center[facility] the event this information is protected by the Federal Confidentiality of Alcohol and Drug Abuse Patient Records regulations: The Federal rules restrict any use of the information to criminally investigate or prosecute any alcohol or drug abuse patient.[facility] CenterIn the event this information is protected by the Federal Confidentiality of Alcohol and Drug Abuse Patient Records regulations: The Federal rules restrict any use of the information to criminally investigate or prosecute any alcohol or drug abuse patient.[facility] CenterIn the event this information is protected by the Federal Confidentiality of Alcohol and Drug Abuse Patient Records regulations: The Federal rules restrict any use of the information to criminally investigate or prosecute any alcohol or drug abuse patient.[facility] CenterIn the event this information is protected by the Federal Confidentiality of Alcohol and Drug Abuse Patient Records regulations: The Federal rules restrict any use of the information to criminally investigate or prosecute any alcohol or drug abuse patient.[facility] CenterIn the event this information is protected by the Federal Confidentiality of Alcohol and Drug Abuse Patient Records regulations: The Federal rules restrict any use of the information to criminally investigate or prosecute any alcohol or drug abuse patient.[facility] CenterIn the event this information is protected by the Federal Confidentiality of Alcohol and Drug Abuse Patient Records regulations: The Federal rules restrict any use of the information to criminally investigate or prosecute any alcohol or drug abuse patient.[facility] CenterIn the event this information is protected by the Federal Confidentiality of Alcohol and Drug Abuse Patient Records regulations: The Federal rules restrict any use of the information to criminally investigate or prosecute any alcohol or drug abuse patient.[facility] CenterIn the event this information is protected by the Federal Confidentiality of Alcohol and Drug Abuse Patient Records regulations: The Federal rules restrict any use of the information to criminally investigate or prosecute any alcohol or drug abuse patient.[facility] CenterIn the event this information is protected by the Federal Confidentiality of Alcohol and Drug Abuse Patient Records regulations: The Federal rules restrict any use of the information to criminally investigate or prosecute any alcohol or drug abuse patient.[facility] CenterIn the event this information is protected by the Federal Confidentiality of Alcohol and Drug Abuse Patient Records regulations: The Federal rules restrict any use of the information to criminally investigate or prosecute any alcohol or drug abuse patient.[facility] CenterIn the event this information is protected by the Federal Confidentiality of Alcohol and Drug Abuse Patient Records regulations: The Federal rules restrict any use of the information to criminally investigate or prosecute any alcohol or drug abuse patient.[facility] CenterIn the event this information is protected by the Federal Confidentiality of Alcohol and Drug Abuse Patient Records regulations: The Federal rules restrict any use of the information to criminally investigate or prosecute any alcohol or drug abuse patient.[facility] FOR RECORDS PERTAINING TO PATIENTS WHO ARE [...] BE BASED ON THE PRIMARY CLINICAL RECORDS. [facility] [employer] [facility]. provides no warranty or guarantee of the accuracy or completeness of information in this document.
[2025-03-23 11:58] LABS: Cholesterol 126 mg/dL (<=200); HDL Cholesterol 49 mg/dL (40-60); Triglycerides 124 mg/dL (<=150); VLDL CHOLESTEROL 24.8 mg/dL
== END 2025-03-23 11:20 | disposition home or self-care (01) ==
LOC: LAB 11:20
PROVIDERS: PCP Nurse Practitioner Family; Visit Provider Internal Medicine Interventional Cardiology
DX: E78.2 Mixed hyperlipidemia (principal)
CPT/HCPCS: 36415; 80061

== ENCOUNTER 2025-04-22 10:01 | Outpatient (OUT) | payer MEDICARE, SELFPAY ==
--- OUTSIDE RECORDS SUMMARY | 2024-11-18 09:00 | XMS_ITS ---
Author Organization The [facility] in [place] Address [address] [place] [address] Care Team Providers Care Linen Aide Name Role Phone Ailin España Primary Care Provider Sonia Donnelly Unavailable [phone] REASON FOR VISIT MD Encounters Encounter Location Date Provider Diagnosis [facility] [address] [place] [phone] 11/18/2024 Sonia Donnelly Plan Of Treatment Next Appt Details Provider Name:Sonia Donnelly , 06/09/2025 11:00:00 AM, [address] [place] [address], [phone], Progress Notes * Yoni BONILLAen WDOB: [birth year] (69 yo M)Acc No.[id number]:11/18/2024 UNLOCKED PROGRESS NOTE Progress Notes Patient: Hoang IVORY Provider: Oneyda Donnelly M.D. :1955 A ge:69 Y S ex:Male Date:11/18/2024 Address:[address] [place], [id number] Pcp:Ailin España Subjective: * Chief Complaints: * 1 . MD. * Medical History: Objective: * Vitals: Assessment: Plan: * Treatment: * * Electronic signature of Merly Donnelly MD, [id number] on 04/22/2025 at 10:05 AM EDT Sign off status: Pending Visit Status: Medardo ORTA (Voice) * Provider: Oneyda Donnelly M.D. Date: 0 11/18/2024 Generated for Edwin perez/Asim/Griselda on: 0 04/22/2025 10:05 AM EDT
--- OUTSIDE RECORDS SUMMARY | 2024-12-23 09:30 | XMS_ITS ---
Author Organization The [facility] in [place] Address [address] [place] [address] Care Team Providers Care Operations And Maintenance Specialist Name Role Phone Ailin España Primary Care Provider Sonia Donnelly Unavailable [phone] REASON FOR VISIT MD Encounters Encounter Location Date Provider Diagnosis [facility] [address] [place] [phone] 12/23/2024 Sonia Donnelly Plan Of Treatment Next Appt Details Provider Name:Sonia Donnelly , 06/09/2025 11:00:00 AM, [address] [place] [address], [phone], Progress Notes * Hoang BONILLA WDOB: [birth year] (69 yo M)Acc No.[id number]:12/23/2024 UNLOCKED PROGRESS NOTE Progress Notes Patient: Hoang IVORY Provider: Oneyda Donnelly M.D. :1955 A ge:69 Y S ex:Male Date:12/23/2024 Address:[address] [place], [id number] Pcp:Ailin España Subjective: * Chief Complaints: * 1 . MD. * Medical History: Objective: * Vitals: Assessment: Plan: * Treatment: * * Electronic signature of Merly Donnelly MD, [id number] on 04/22/2025 at 10:05 AM EDT Sign off status: Pending Visit Status: C ANC (Cancelled) * Provider: Oneyda Donnelly M.D. Date: 0 12/23/2024 Generated for Edwin perez/Asim/Griselda on: 0 04/22/2025 10:05 AM EDT
--- OUTSIDE RECORDS SUMMARY | 2024-12-23 11:00 | XMS_ITS ---
Author Organization The [facility] in [place] Address [address] [place] [address] Care Team Providers Care Plant Wire Chief Name Role Phone Ailin España Primary Care Provider [phone] Sonia Donnelly Unavailable [phone] REASON FOR VISIT MD Encounters Encounter Location Date Provider Diagnosis [facility] [address] [place] [address] 12/23/2024 Sonia Donnelly Plan Of Treatment Next Appt Details Provider Name:Sonia Donnelly , 06/09/2025 11:00:00 AM, [address] [place] [address], [phone], Progress Notes * Hoang BONILLA WDOB: [birth year] (69 yo M)Acc No.[id number]:12/23/2024 UNLOCKED PROGRESS NOTE Progress Notes Patient: Hoang IVORY Provider: Oneyda Donnelly M.D. :1955 A ge:69 Y S ex:Male Date:12/23/2024 Address:[address] [place], [id number] Pcp:Ailin España Subjective: * Chief Complaints: * 1 . MD. * Medical History: Objective: * Vitals: Assessment: Plan: * Treatment: * * Electronic signature of Merly Donnelly MD, [id number] on 04/22/2025 at 10:06 AM EDT Sign off status: Pending Visit Status: P EN (Pending) * Provider: Oneyda Donnelly M.D. Date: 0 12/23/2024 Generated for Edwin perez/Asim/Griselda on: 0 04/22/2025 10:06 AM EDT
--- OUTSIDE RECORDS SUMMARY | 2025-01-26 05:00 | XMS_ITS ---
Author Organization The [facility] in [place] Address [address] [place] [address] Care Team Providers Care Rock Loader Name Role Phone Ailin España Primary Care Provider [phone] Sonia Donnelly Unavailable [phone] REASON FOR VISIT CL.5 Encounters Encounter Location Date Provider Diagnosis [facility] [address] [place] [phone] 01/26/2025 Sonia Donnelly Plan Of Treatment Next Appt Details Provider Name:Sonia Donnelly , 06/09/2025 11:00:00 AM, [address] [place] [address], [phone], Progress Notes * Hoang BONILLA WDOB: [birth year] (69 yo M)Acc No.[id number]:01/26/2025 UNLOCKED PROGRESS NOTE Progress Note Patient: Hoang IVORY Provider: Oneyda Donnelly M.D. :1955 A ge:69 Y S ex:Male Date:01/26/2025 Address:[address], [id number] Pcp:Ailin España Subjective: * Chief Complaints: * 1 . CL.5. * Medical History: Objective: * Vitals: Assessment: Plan: * Treatment: * * Electronic signature of Merly Donnelly MD, [id number] on 04/22/2025 at 10:05 AM EDT Sign off status: Pending Visit Status: P EN (Pending) * Provider: Oneyda Donnelly M.D. Date: 0 01/26/2025 Generated for Edwin perez/Asim/Griselda on: 0 04/22/2025 10:05 AM EDT
--- OUTSIDE RECORDS SUMMARY | 2025-02-17 05:30 | XMS_ITS ---
Author Organization The [facility] in [place] Address [address] [place] [address] Care Team Providers Care Hotel Administrative Assistant Name Role Phone Ailin España Primary Care Provider Sonia Donnelly Unavailable [phone] REASON FOR VISIT MD Encounters Encounter Location Date Provider Diagnosis [facility] [address] [place] [phone] 02/17/2025 Sonia Donnelly Plan Of Treatment Next Appt Details Provider Name:Sonia Donnelly , 06/09/2025 11:00:00 AM, [address] [place] [address], [phone], Progress Notes * Yoni BONILLAen WDOB: [birth year] (69 yo M)Acc No.[id number]:02/17/2025 UNLOCKED PROGRESS NOTE Progress Notes Patient: Hoang IVORY Provider: Oneyda Donnelly M.D. :1955 A ge:69 Y S ex:Male Date:02/17/2025 Address:[address] [place], [id number] Pcp:Ailin España Subjective: * Chief Complaints: * 1 . MD. * Medical History: Objective: * Vitals: Assessment: Plan: * Treatment: * * Electronic signature of Merly Donnelly MD, [id number] on 04/22/2025 at 10:06 AM EDT Sign off status: Pending Visit Status: P EN (Pending) * Provider: Oneyda Donnelly M.D. Date: 0 02/17/2025 Generated for Edwin perez/Asim/Griselda on: 0 04/22/2025 10:06 AM EDT
--- OUTSIDE RECORDS SUMMARY | 2025-04-22 10:05 | XMS_ITS | Encounter Summary ---
Author Organization [facility] Address [address] [place] [address] Care Team Providers Care Communications Agent Name Role Phone Ailin España MD Unavailable [phone] Ailin España MD Unavailable [phone] Jah Tinajero MD Primary Care Provider [phone] Lucas Arenas DO Unavailable [phone] Encounter Details Date Type Department Care Team (Late st Contact Info) Description 06/13/2024 Clinisync Result Encounter [facility] External Department Unsolicited Evelyn Aden PA [address] [place] [address] Dr Inman [place], [place] [id number] Social History Tobacco Use Types Packs/Day Years Used Date Smoking Tobacco: Never Assessed Sex and Gender Information Value Date Recorded Sex Assigned at Not on file Legal Sex Male 6:49 PM EDT Gender Identity Not on file Sexual Orientation Not on file documented as of this encounter Plan of Treatment Not on file documented as of this encounter Procedures Procedure Name Priority Date/Time Associated Diagnosis Comments ECG 12-LEAD 06/13/2024 6:35 PM EST documented in this encounter Results * ECG 12-LEAD (06/13/2024 6:35 PM EST) Anatomical Region Laterality Modality Other 06/13/2024 6:35 PM EST Narrative 06/14/2024 6:30 AM EST The [address] [address] Electrocardiograph Report Signed Patient: HOANG BONILLA MR#: [id number] : 1955 Acct:[id number] Age/Sex: 68 / M ADM Date: 06/13/24 Loc: ICU 271-[address]: Jah Tinajero M.D. 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 Signed By: 06/14/24 0630 DD/ 1835 TD/TT: Milk Of Lime Slaker: Procedure Note Radiology, Radiologist, MD - 06/14/2024 [place] [address] Electrocardiograph Report Signed Patient: HOANG BONILLA WMR#: [id number] : 1955cct:[id number] Age/Sex: 68 / MADM Date: 06/13/24 Loc: ICU 271-[address]: Jah Tinajero M.D. 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 Signed By:06/14/24629 DD/ 34 TD/TT: Milk Of Lime Slaker: Evelyn [facility] Final Result documented in this encounter Visit Diagnoses Not on filedocumented in this encounter Care Teams Communications Agent Relationship Specialty Start Date End Date Jah Tinajero MD [address] [place], [place] [phone] PCP - General Family Medicine 06/16/24 08/06/24 Ailin España MD [address] [place] [address] Referring Physician Family Medicine 05/16/24 Ailin España MD [address] [place] [address] Referring Physician Family Medicine 05/26/24 Lucas Arenas DO [address] [facility] [address] [place], [place] [phone] Referring Physician Neurology 08/07/24 documented as of this encounter
--- OUTSIDE RECORDS SUMMARY | 2025-04-22 10:05 | XMS_ITS | Encounter Summary ---
Author Organization [employer] Address [id number] [address] [place] [address] Care Team Providers Care Director Of Security Name Role Phone Unavailable Primary Care Provider Unavailabl e Encounter Details Date Type Department Care Team (Late st Contact Info) Description 06/23/2024 Telephone [facility] [address] [facility] [address] [place] [address] [place] [address] Social History Tobacco Use Types Packs/Day Years [...] he had a hearing test completed at [facility] on 05/26. Is this an acceptable [...]
--- OUTSIDE RECORDS SUMMARY | 2025-04-22 10:05 | XMS_ITS | Encounter Summary ---
Author Organization [facility] Address [address] [place] [address] Care Team Providers Care Manager Of Operations Name Role Phone Ailin España MD Unavailable [phone] Ailin España MD Unavailable [phone] Jah Tinajero MD Primary Care Provider +-[phone] Lucas Arenas DO Unavailable [phone] Encounter Details Date Type Department Care Team (Late st Contact Info) Description 06/13/2024 Clinisync Result Encounter [facility] External Department Unsolicited Evelyn Aden PA [address] [place] [address] Dr Inman [place], [place] [phone] Social History Tobacco Use Types Packs/Day Years [...] Date/Time Associated Diagnosis Comments ECG 12-LEAD 06/13/2024 4:19 PM EST documented in this encounter Results * ECG 12-LEAD (06/13/2024 4:19 PM EST) Anatomical Region Laterality Modality Other 06/13/2024 4:19 PM EST Narrative 06/14/2024 6:29 AM EST The [address] [address] Electrocardiograph Report Signed Patient: HOANG BONILLA MR#: [id number] : 1955 Acct:[id number] Age/Sex: 68 / M ADM Date: 06/13/24 Loc: ICU 271-[address]: Jah Tinajero M.D. 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 Signed By: 06/14/2429 DD/ 161 TD/TT: Field Specialist: Procedure Note Radiology, Radiologist, MD - 06/14/2024 [place] [address] Electrocardiograph Report Signed Patient: HOANG BONILLA WMR#: [id number] : 1955cct:[id number] Age/Sex: 68 / MADM Date: 06/13/24 Loc: ICU 271-[address]: Jah Tinajero M.D. 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 Signed By:06/14/24628 DD/ 18 TD/TT: Field Specialist: Evelyn [facility] Final Result documented in this encounter Visit Diagnoses Not on filedocumented in this encounter Care Teams Manager Of Operations Relationship Specialty Start Date End Date Jah Tinajero MD [address] [place], [place] [phone] PCP - General Family Medicine 06/16/24 08/06/24 Ailin España MD [address] [place], [place] [phone] Referring Physician Family Medicine 05/16/24 Ailin España MD [address] [place] [address] Referring Physician Family Medicine 05/26/24 Lucas Arenas DO [address] [facility] [address] [place], [place] [phone] Referring Physician Neurology 08/07/24 documented as of this encounter
--- OUTSIDE RECORDS SUMMARY | 2025-04-22 10:06 | XMS_ITS | Encounter Summary ---
Author Organization [facility] Address [id number] [address] [place] [address] Care Team Providers Care Sr. Manager Marketing Name Role Phone Unavailable Primary Care Provider Unavailabl e Encounter Details Date Type Department Care Team (Late st Contact Info) Description 08/13/2024 Orders Only [facility] - ENT [address] [facility] [place] [address] External, Scanning Provider Social History [...]
--- OUTSIDE RECORDS SUMMARY | 2025-04-22 10:06 | XMS_ITS | Patient Health Record ---
Author Organization [facility] in [place] Address [address] [place] [address] Care Team Providers Care Wire Coater Name Role Phone Taco Ailin Primary Care Provider [phone] AndrzejJoan delgado Unavailable [phone] Allergies No Known Allergies Results Component Value Reference Range Notes Sodium Urine Random Reviewed date:04/22/2024 03:16:03 PM Interpretation: Performing Lab: Notes/Report: [facility] , Sodium Urine Random 74 30-90 mmol/L Performing Lab: see note ML - [facility] LB LDH Reviewed date:04/23/2024 05:50:41 PM Interpretation: Performing Lab: Notes/Report: [facility] , Lactate Dehydrogenase 204 85-227 U/L Performing Lab: see note - [facility] LB URIC ACID SERUM Reviewed date:04/23/2024 05:50:41 PM Interpretation: Performing Lab: Notes/Report: [facility] , Uric Acid 2.5 3.5-7.2 mg/dL Performing Lab: see note ML - [facility] LB Osmolality, Urine Reviewed date:04/23/2024 10:18:32 AM Interpretation: Performing Lab: Notes/Report: [facility] , Osmolality, Urine 483 . mOsmol/kg 24 hr : 300 - 900 Random: 50 - 1400 After 12hr fluid restriction: >850 Performed at: - [facility] [address] [id number] Fast Food Assistant Restaurant Manager: Ash Wilcox MD, Phone: [phone] Performing Lab: see note - [facility] LB LAB TESTING Reviewed date:06/04/2024 01:55:35 PM Interpretation: Performing Lab: Notes/Report: [id number] Sedimentation Rate, Modified [place] [facility] , Miscellaneous Test COMMENT . Test Ordered: [id number] Sedimentation Rate-[place] Sedimentation Rate-Westergren 120 [H ] mm/hr CB Reference Range: 0-30 Performed at: CB - [facility] [address] [id number] Fast Food Assistant Restaurant Manager: Neville Long PhD, Phone: [phone] Performing Lab: see note LC - [facility] LB RT pulmonary function test Reviewed date:06/04/2024 01:55:35 PM Interpretation: Performing Lab: Notes/Report: Source Facility: [place] [address] Respiratory Report Signed Patient: HOANG TRAN MR#: [id number] : 1955 Acct:[id number] Age/Sex: 68 / M ADM Date: 05/20/24 Loc: CARD Attending Dr: Joan Donnelly M.D. Ordering Physician: Joan Donnelly M.D. Date of Service: 05/20/24 Procedure(s): RT pulmonary function test Accession Number(s): [id number] cc: [facility] Test Date: 2024-05-20 Pat Name: HOANG TRAN Department: Room: - Gender: Male Forensic Psychologist: Evelyn Frances RRT : 1955 Requested By: Joan Donnelly Order Number: [id number] Vy MD: Leroy Torres Interpretive Statements Pulmonary [...] Dictated By: Leroy Torres D.O. Signed By: 05/20/24145005/20/241450 DD/ 5 TD/TT: Outpatient Coordinator: HERMELINDO echo doppler complete Reviewed date:06/04/2024 01:55:35 PM Interpretation: Performing Lab: Notes/Report: Source Facility: [place] [address] Cardiology Report Signed Patient: HOANG TRAN MR#: [id number] : 1955 Acct:[id number] Age/Sex: 68 / M ADM Date: 05/23/24 Loc: CARD Attending Dr: Joan Donnelly M.D. Ordering Physician: Joan Donnelly M.D. Date of Service: 05/23/24 Procedure(s): HERMELINDO echo doppler complete Accession Number(s): [id number] cc: AILIN GREEN Apoorva M.D. Patient Name: HOANG TRAN MR#: [id number] : 1955 Exam Date: 05/23/2024 Ordering Doctor: JOAN DONNELLY ECHOCARDIOGRAM REPORT PROCEDURE: CA ECHO DOPPLER [...] M.D. Signed By: 05/23/241724 DD/ 23 TD/TT: Outpatient Coordinator: CBC AUTO DIFF Reviewed date:06/04/2024 01:55:35 PM Interpretation: Performing Lab: Notes/Report: [facility] , White Blood Count 10.8 4.0-11.0 [...] 3/uL Performing Lab: see note ML - [facility] LB PROF CHEM 8 (BAS METB) Reviewed date:06/04/2024 12:13:38 PM Interpretation: Performing Lab: Notes/Report: [facility] , Sodium 136 136-145 mmol/L Potassium [...] mg/dL Performing Lab: see note ML - [facility] LB ECG 12 lead Reviewed date:06/05/2024 08:09:31 AM Interpretation: Performing Lab: Notes/Report: Source Facility: [facility]-[address] [place] [address] [place] [address] Electrocardiograph Report Signed Patient: HOANG TRAN MR#: [id number] : 1955 Acct:[id number] Age/Sex: 68 / M ADM Date: 06/04/24 Loc: ICU 271-[address]: Marco A Melissa D.O. Ordering Physician: Johnathan Triplett M.D. Date of Service: 06/04/24 Procedure(s): ECG 12 lead Accession Number(s): [id number] cc: [facility] Test Date: 2024-06-04 Pat Name: HOANG TRAN Department: Room: - Gender: Male Forensic Psychologist: : 1955 Requested By: EVERETT CLEMENS Order Number: [id number] Reading MD: NITO SUNSHINE Measurements Intervals [place] Rate: 98 P: 68 ME: 171 QRS: 40 QRSD: 96 T: 63 QT: 378 QTc: 483 Interpretive Statements SINUS RHYTHM WITH FREQUENT SUPRAVENTRICULAR PREMATURE COMPLEXES ABNORMAL RHYTHM ECG Compared to ECG 04/21/2024 13:26:07 No significant changes Electronically Signed On 06-04-2024 23:25:32 EDT by NITO SUNSHINE Dictated By: Nito Sunshine D.O. Signed By: 06/04/24 2325 DD/ 1111 TD/TT: Outpatient Coordinator: CBC AUTO DIFF Reviewed date:06/15/2024 05:37:58 PM Interpretation: Performing Lab: Notes/Report: [facility] , White Blood Count 10.8 4.0-11.0 [...] 3/uL Performing Lab: see note ML - [facility] LB XR chest 1V Reviewed date:06/15/2024 05:37:58 PM Interpretation: Performing Lab: Notes/Report: Source Facility: [place] [address] XRay Report Signed Patient: HOANG TRAN MR#: [id number] : 1955 Acct:[id number] Age/Sex: 68 / M ADM Date: 06/13/24 Loc: ER Attending Dr: Ordering Physician: Evelyn Dumont Date of Service: 06/13/24 Procedure(s): XR chest 1V Accession Number(s): [id number] cc: Evelyn Dumont; AILIN GREEN [place] [id number] Patient Name: HOANG TRAN MRN: [id number] date: 1955 Sex: M Assigned Patient Location: ER Current Patient Location: ER Accession/Order Number: [id number] Exam Date: 06/13/2024 16:38 Report Date: 06/13/2024 [...] Yi M.D. Signed By: 06/13/24 175 DD/ 1749 TD/TT: Outpatient Coordinator: CBC AUTO DIFF Reviewed date:08/18/2024 08:27:53 AM Interpretation: Performing Lab: Notes/Report: [facility] , White Blood Count 1.5 4.0-11.0 [...] 9.5 9.5-13.5 fL Performing Lab: see note - [facility] LB Manual Differential Reviewed date:08/18/2024 08:27:53 AM Interpretation: Performing Lab: Notes/Report: [facility] , Segmented Neutrophils % Manual 46.0 43.0-75.0 Lymphocytes Percent Manual 46.0 20.5-60.0 % Monocytes Percent Manual 2.0 1.7-12.0 % Eosinophils Percent Manual 2.0 0.9-7.0 % Basophils Percent Manual 4.0 0.2-2.0 % Segmented Neut Absolute Manual 0.69 1.4-6.5 10 3/uL Lymphocytes Absolute Manual 0.69 1.20-3.80 10 3/uL Monocytes Absolute Manual 0.03 0.30-0.80 10 3/ uL Eosinophils Absolute Manual 0.03 0.00-0.70 10 3/uL Basophils Abs Manual 0.06 0.00-0.10 10 3/uL Microcytosis 1+ Performing Lab: see note - [facility] LB CBC AUTO DIFF Reviewed date:08/18/2024 08:27:53 AM Interpretation: Performing Lab: Notes/Report: [facility] , White Blood Count 1.7 4.0-11.0 [...] 9.4 9.5-13.5 fL Performing Lab: see note [facility] LB Manual Differential Reviewed date:08/18/2024 08:27:53 AM Interpretation: Performing Lab: Notes/Report: [facility] , Segmented Neutrophils % Manual 12.0 43.0-75.0 Lymphocytes Percent Manual 48.0 20.5-60.0 % Monocytes Percent Manual 32.0 1.7-12.0 % Eosinophils Percent Manual 6.0 0.9-7.0 % Basophils Percent Manual 2.0 0.2-2.0 % Segmented Neut Absolute Manual 0.20 1.4-6.5 10 3/uL Lymphocytes Absolute Manual 0.81 1.20-3.80 10 3/uL Monocytes Absolute Manual 0.54 0.30-0.80 10 3/ uL Eosinophils Absolute Manual 0.10 0.00-0.70 10 3/uL Basophils Abs Manual 0.03 0.00-0.10 10 3/uL Poikilocytosis 1+ Anisocytosis 1+ Tear Drop Cells 1+ Acanthocytes 1+ Performing Lab: see note - [facility] LB Manual Differential Reviewed date:08/18/2024 08:27:53 AM Interpretation: Performing Lab: Notes/Report: [facility] , Segmented Neutrophils % Manual 71.0 [...] 1.20-3.80 10 3/uL Monocytes Absolute Manual 1.74 0.30-0.80 10 3/ uL Eosinophils Absolute Manual 0.00 0.00-0.70 10 3/uL Basophils Abs Manual 0.00 0.00-0.10 10 3/uL Performing Lab: see note ML - [facility] LB CBC AUTO DIFF Reviewed date:08/18/2024 08:27:53 AM Interpretation: Performing Lab: Notes/Report: [facility] , White Blood Count 18.7 4.0-11.0 [...] 9.3 9.5-13.5 fL Performing Lab: see note ML - [facility] LB LDH Reviewed date:08/18/2024 08:27:53 AM Interpretation: Performing Lab: Notes/Report: [facility] , Lactate Dehydrogenase 190 85-227 U/L Performing Lab: see note ML - [facility] LB PROF 14(COMP METB) Reviewed date:08/18/2024 08:27:53 AM Interpretation: Performing Lab: Notes/Report: [facility] , Sodium 140 136-145 mmol/L Potassium [...] 0.5 Performing Lab: see note ML - [facility] CBC AUTO DIFF Reviewed date:08/18/2024 08:27:53 AM Interpretation: Performing Lab: Notes/Report: [facility] , White Blood Count 2.5 4.0-11.0 [...] fL Performing Lab: see note ML - [facility] LB LDH Reviewed date:08/18/2024 08:27:53 AM Interpretation: Performing Lab: Notes/Report: [facility] , Lactate Dehydrogenase 194 85-227 U/L Performing Lab: see note ML - [facility] LB MAGNESIUM Reviewed date:08/18/2024 08:27:53 AM Interpretation: Performing Lab: Notes/Report: [facility] , Magnesium 1.8 1.8-2.4 mg/dL Performing Lab: see note - [facility] LB PROF 14(COMP METB) Reviewed date:08/18/2024 08:27:53 AM Interpretation: Performing Lab: Notes/Report: [facility] , Sodium 143 136-145 mmol/L Potassium [...] 0.8 Performing Lab: see note ML - [facility] CBC AUTO DIFF Reviewed date:08/18/2024 08:27:53 AM Interpretation: Performing Lab: Notes/Report: [facility] , White Blood Count 16.9 4.0-11.0 [...] 9.5-13.5 fL Performing Lab: see note - [facility] LB LDH Reviewed date:08/18/2024 08:27:53 AM Interpretation: Performing Lab: Notes/Report: [facility] , Lactate Dehydrogenase 176 85-227 U/L Performing Lab: see note [facility] LB PROF 14(COMP METB) Reviewed date:08/18/2024 08:27:53 AM Interpretation: Performing Lab: Notes/Report: [facility] , Sodium 144 136-145 mmol/L Potassium [...] 0.9 Performing Lab: see note ML - [facility] LB COPPER, SERUM or PLASMA Reviewed date:08/18/2024 08:27:53 AM Interpretation: Performing Lab: Notes/Report: [facility] , Copper Level 132 69-132 ug/dL This test was developed and its performance characteristics determined by [facility]. It has not been cleared or approved by the Food and Drug Administration. Detection Limit = 5 Performed at: [address] [id number] Fast Food Assistant Restaurant Manager: Ash Wilcox MD, Phone: [phone] Performing Lab: see note [facility] LB GLYCOHEMOGLOBIN A1C Reviewed date:08/12/2024 04:06:55 PM Interpretation: Performing Lab: Notes/Report: [facility] , Glycohemoglobin A1C 6.0 4.5-6.2 % ADA RECOMMENDED LIMIT 4.0 - 6.0 ADA THERAPEUTIC TARGET < 7.0 ACTION SUGGESTED > 7.0 Estimated Average Glucose 126 Performing Lab: see note ML - [facility] LB CA 30 day event monitor Reviewed date:07/11/2024 10:40:15 AM Interpretation: Performing Lab: Notes/Report: Source Facility: [place] [address] Cardiology Report Signed Patient: HOANG TRAN MR#: [id number] : 1955 Acct:[id number] Age/Sex: 68 / M ADM Date: 06/04/24 Loc: ICU 271- Attending Dr: Marco A Melissa D.O. Ordering Physician: Marco A Melissa D.O. Date of Service: 06/05/24 Procedure(s): CA 30 day event monitor Accession Number(s): [id number] cc: AILIN GREEN ; Marco A Melissa D.O. [facility] Test Date: 2024-07-09 Pat Name: HOANG TRAN Department: Room: [facility] Gender: Male Forensic Psychologist: : 1955 Requested By: [id number] Order Number: [id number] Reading MD: NITO SUNSHINE Interpretive Statements Predominant [...] D.O. Signed By: 07/10/24204307/10/242043 DD/ 4 TD/TT: Outpatient Coordinator: Ame Slade Plasma Reviewed date:08/15/2024 02:42:20 PM Interpretation: Performing Lab: Notes/Report: [facility] , Vitamin B6, Plasma 2.3 3.4-65.2 ug/L This test was developed and its performance characteristics determined by [facility]. It has not been cleared or approved by the Food and Drug Administration. Deficiency: <3.4 Marginal: 3.4 - 5.1 Adequate: >5.1 Performed at: [address] [id number] Fast Food Assistant Restaurant Manager: Ash Wilcox MD, Phone: [phone] Performing Lab: see note [facility] LB Rapid Plasma Reagin, Quant Reviewed date:08/18/2024 08:27:53 AM Interpretation: Performing Lab: Notes/Report: [facility] , Rapid Plasma Reagin, Quant Non Reactive NonRea<1:1 tit er Please Note: This test does not meet current guidelines for screening and diagnosis of syphilis. This test is intended for following treatment response in patients being treated for syphilis infection. To screen for syphilis infection, a reflex cascade that includes both RPR and a treponema-specific assay should be utilized, such as Treponema pallidum (Syphilis) Screening [place] (216741) or Rapid Plasma Reagin (RPR) Test With Reflex to Quantitative RPR and Confirmatory Treponema pallidum Antibodies (791542). Performed at: [address] [id number] Fast Food Assistant Restaurant Manager: Neville Long PhD, Phone: [phone] Performing Lab: see note [facility] Immunofixation, Serum Reviewed date:08/18/2024 08:27:53 AM Interpretation: Performing Lab: Notes/Report: [facility] , Immunofixation Result, Serum Comment: . Presence of monoclonal protein is unclear at this time. Suggest repeat in 3 to 6 months if clinically indicated. Immunoglobulin G, Qn, Serum 719 032-0894 mg/d L Immunoglobulin A, Qn, Serum 132 61-437 mg/dL Immunoglobulin M, Qn, Serum 26 20-172 mg/dL Result confirmed on concentration. Performed at: [address] [id number] Fast Food Assistant Restaurant Manager: Neville Long PhD, Phone: [phone] Performing Lab: see note LC - [facility] LB Vitamin B12 Reviewed date:08/13/2024 09:05:33 AM Interpretation: Performing Lab: Notes/Report: [facility] , Vitamin B12 5709 821-9589 pg/mL Performed at: [address] [id number] Fast Food Assistant Restaurant Manager: Neville Long PhD, Phone: [phone] Performing Lab: see note [facility] LB Manual Differential Reviewed date:08/18/2024 08:27:53 AM Interpretation: Performing Lab: Notes/Report: [facility] , Segmented Neutrophils % Manual 62.0 [...] 1.20-3.80 10 3/uL Monocytes Absolute Manual 3.17 0.30-0.80 10 3/ uL Eosinophils Absolute Manual 0.00 0.00-0.70 10 3/uL Basophils Abs Manual 0.18 0.00-0.10 10 3/uL Metamyelocytes Absolute Manual 0.18 Myelocytes Absolute Manual 0.18 Nucleated Red Blood Cells 2 Anisocytosis 1+ Microcytosis 1+ Performing Lab: see note ML - [facility] LB FERRITIN Reviewed date:08/18/2024 08:27:53 AM Interpretation: Performing Lab: Notes/Report: [facility] , Ferritin 1227.0 26.0-388.0 ng/mL Performing Lab: see note - [facility] LB CBC AUTO DIFF Reviewed date:08/18/2024 08:27:53 AM Interpretation: Performing Lab: Notes/Report: [facility] , White Blood Count 29.1 4.0-11.0 [...] fL Performing Lab: see note ML - [facility] LB PROF 14(COMP METB) Reviewed date:08/18/2024 08:27:53 AM Interpretation: Performing Lab: Notes/Report: [facility] , Sodium 141 136-145 mmol/L Potassium 3.4 [...] 0.4 Performing Lab: see note ML - [facility] LB CBC AUTO DIFF (Not yet revie wed by provider) Interpretation: Performing Lab: Notes/Report: [facility] , White Blood Count 13.5 4.0-11.0 [...] fL Performing Lab: see note - [facility] LB LDH (Not yet reviewed by pro vider) Interpretation: Performing Lab: Notes/Report: [facility] , Lactate Dehydrogenase 162 85-227 U/L Performing Lab: see note - [facility] LB PROF 14(COMP METB) (Not yet reviewed by provider) Interpretation: Performing Lab: Notes/Report: [facility] , Sodium 140 136-145 mmol/L Potassium [...] Performing Lab: see note ML - [facility] LB Manual Differential (Not yet reviewed by provider) Interpretation: Performing Lab: Notes/Report: [facility] , Segmented Neutrophils % Manual 63.0 [...] 1.20-3.80 10 3/uL Monocytes Absolute Manual 2.16 0.30-0.80 10 3/ uL Eosinophils Absolute Manual 0.13 0.00-0.70 10 3/uL Basophils Abs Manual 0.13 0.00-0.10 10 3/uL Myelocytes Absolute Manual 0.13 Poikilocytosis 1+ Anisocytosis 1+ Tear Drop Cells 1+ Performing Lab: see note ML - [facility] LB MAGNESIUM Reviewed date:08/18/2024 08:27:53 AM Interpretation: Performing Lab: Notes/Report: [facility] , Magnesium 1.9 1.8-2.4 mg/dL Performing Lab: see note - [facility] LB IRON AND TIBC Reviewed date:08/18/2024 08:27:53 AM Interpretation: Performing Lab: Notes/Report: [facility] , Iron 54.0 65.0-175.0 ug/dL Total Iron Binding Capacity 204.0 250.0-450.0 u g/dL Percent Iron Saturation 26.5 Performing Lab: see note - [facility] LB FERRITIN Reviewed date:08/18/2024 08:27:53 AM Interpretation: Performing Lab: Notes/Report: [facility] , Ferritin 1497.0 26.0-388.0 ng/mL Performing Lab: see note - [facility] LB PROF 14(COMP METB) Reviewed date:08/18/2024 08:27:53 AM Interpretation: Performing Lab: Notes/Report: [facility] , Sodium 142 136-145 mmol/L Potassium [...] Performing Lab: see note ML - [facility] LB Manual Differential (Not yet reviewed by provider) Interpretation: Performing Lab: Notes/Report: [facility] , Segmented Neutrophils % Manual 62.0 [...] 1.20-3.80 10 3/uL Monocytes Absolute Manual 2.17 0.30-0.80 10 3/ uL Eosinophils Absolute Manual 0.90 0.00-0.70 10 3/uL Basophils Abs Manual 0.54 0.00-0.10 10 3/uL Poikilocytosis 1+ Anisocytosis 1+ Tear Drop Cells 1+ Performing Lab: see note ML - [facility] LB PROF 14(COMP METB) Reviewed date:06/15/2024 05:37:58 PM Interpretation: Performing Lab: Notes/Report: [facility] , Sodium 139 136-145 mmol/L Potassium [...] Performing Lab: see note ML - [facility] LB CBC AUTO DIFF (Not yet revie wed by provider) Interpretation: Performing Lab: Notes/Report: [facility] , White Blood Count 17.5 4.0-11.0 [...] 3/uL Performing Lab: see note ML - [facility] LB CBC AUTO DIFF Reviewed date:06/15/2024 05:37:58 PM Interpretation: Performing Lab: Notes/Report: [facility] , White Blood Count 5.8 4.0-11.0 [...] 10 3/uL Performing Lab: see note - [facility] LB Prothrombin Time INR Reviewed date:06/15/2024 05:37:58 PM Interpretation: Performing Lab: Notes/Report: [facility] , Prothrombin Time 11.1 9.0-11.6 sec INR 1.05 DESIRED INR: 2.0-3.0 CONDITIONS NOT LISTED BELOW 2.5-3.5 FOR PROSTHETIC HEART VALVE REPLACEMENT 2.5-3.5 RECURRENT THROMBOSIS Performing Lab: see note ML - [facility] LB PTT Reviewed date:06/15/2024 05:37:58 PM Interpretation: Performing Lab: Notes/Report: [facility] , Partial Thromboplastin Time 36.5 22.3-36.2 sec Performing Lab: see note ML - [facility] LB PROF CHEM 8 (BAS METB) Reviewed date:06/15/2024 05:37:58 PM Interpretation: Performing Lab: Notes/Report: [facility] , Sodium 140 136-145 mmol/L Potassium [...] mg/dL Performing Lab: see note ML - [facility] LB MAGNESIUM Reviewed date:06/15/2024 05:37:58 PM Interpretation: Performing Lab: Notes/Report: [facility] , Magnesium 2.1 1.8-2.4 mg/dL Performing Lab: see note ML - [facility] LB Manual Differential (Not yet reviewed by provider) Interpretation: Performing Lab: Notes/Report: [facility] , Segmented Neutrophils % Manual 40.0 43.0-75.0 Lymphocytes Percent Manual 24.0 20.5-60.0 % Monocytes Percent Manual 22.0 1.7-12.0 % Eosinophils Percent Manual 12.0 0.9-7.0 % Basophils Percent Manual 2.0 0.2-2.0 % Segmented Neut Absolute Manual 0.92 1.4-6.5 10 3/uL Lymphocytes Absolute Manual 0.55 1.20-3.80 10 3/uL Monocytes Absolute Manual 0.50 0.30-0.80 10 3/ uL Eosinophils Absolute Manual 0.27 0.00-0.70 10 3/uL Basophils Abs Manual 0.04 0.00-0.10 10 3/uL Performing Lab: see note - [facility] LB CBC AUTO DIFF (Not yet revie wed by provider) Interpretation: Performing Lab: Notes/Report: [facility] , White Blood Count 7.6 4.0-11.0 [...] 10 3/uL Performing Lab: see note - [facility] LB CRP (Not yet reviewed by pro vider) Interpretation: Performing Lab: Notes/Report: [facility] , C Reactive Protein <0.50 <=0.50 mg/dL Performing Lab: see note - [facility] LB CBC AUTO DIFF Reviewed date:06/15/2024 05:37:58 PM Interpretation: Performing Lab: Notes/Report: [facility] , White Blood Count 5.8 4.0-11.0 [...] Performing Lab: see note ML - [facility] LB IRON AND TIBC (Not yet revie wed by provider) Interpretation: Performing Lab: Notes/Report: [facility] , Iron 104.0 65.0-175.0 ug/dL Total Iron Binding Capacity 268.0 250.0-450.0 u g/dL Percent Iron Saturation 38.8 Performing Lab: see note ML - [facility] LB LDH (Not yet reviewed by pro vider) Interpretation: Performing Lab: Notes/Report: [facility] , Lactate Dehydrogenase 208 85-227 U/L Performing Lab: see note ML - [facility] LB PROF 14(COMP METB) (Not yet reviewed by provider) Interpretation: Performing Lab: Notes/Report: [facility] , Sodium 146 136-145 mmol/L Potassium [...] Performing Lab: see note ML - [facility] LB Erythrocyte Sedimentation Ra te (Not yet reviewed by provider) Interpretation: Performing Lab: Notes/Report: [facility] , Erythrocyte Sedimentation Rate 11 <=20 mm/hr Performing Lab: see note - [facility] LB ECG 12 lead Reviewed date:06/15/2024 05:37:58 PM Interpretation: Performing Lab: Notes/Report: Source Facility: [facility]-[address] [place] [address] [place] [address] Electrocardiograph Report Signed Patient: HOANG TRAN MR#: [id number] : 1955 Acct:[id number] Age/Sex: 68 / M ADM Date: 06/13/24 Loc: ICU 271-[address]: Jason Damian M.D. Ordering Physician: Evelyn Dumont Date of Service: 06/13/24 Procedure(s): ECG 12 lead Accession Number(s): [id number] cc: [facility] Test Date: 2024-06-13 Pat Name: HOANG TRAN Department: Room: - Gender: Male Forensic Psychologist: : 1955 Requested By: [id number] Order Number: [id number] Reading MD: JASON DAMIAN Measurements Intervals [place] Rate: 120 P: 150 ME: 214 QRS: 28 QRSD: 88 T: 90 [...] Dictated By: Jason Damian M.D. Signed By: 06/14/24629 DD/ 183 TD/TT: Outpatient Coordinator: ECG 12 lead Reviewed date:06/15/2024 05:37:58 PM Interpretation: Performing Lab: Notes/Report: Source Facility: [place] [address] Electrocardiograph Report Signed Patient: HOANG TRAN MR#: [id number] : 1955 Acct:[id number] Age/Sex: 68 / M ADM Date: 06/13/24 Loc: ICU 271-[address]: Jason Damian M.D. Ordering Physician: Evelyn Dumont Date of Service: 06/13/24 Procedure(s): ECG 12 lead Accession Number(s): [id number] cc: [facility] Test Date: 2024-06-13 Pat Name: HOANG TRAN Department: Room: - Gender: Male Forensic Psychologist: : 1955 Requested By: AILIN GREEN Order Number: [id number] Reading MD: JASON DAMIAN Measurements Intervals [place] Rate: 157 P: 240 ME: 134 QRS: 18 QRSD: 84 T: 109 [...] Dictated By: Jason Damian M.D. Signed By: 06/14/2429 DD/ 1619 TD/TT: Outpatient Coordinator: Troponin I High Sensitivity Reviewed date:06/15/2024 05:37:58 PM Interpretation: Performing Lab: Notes/Report: [facility] , Troponin I High Sensitivity 6.8 4.0-76.1 pg/m L CUT-OFF POINTS HAVE BEEN ESTABLISHED BASED ON THE FOURTH UNIVERSAL DEFINITION OF MYOCARDIAL INFARCTION. THE UPPER REFERENCE LIMIT (URL) OF TROPONIN, DEFINED THE 99TH PERCENTILE OF cTnI DISTRIBUTION IN A REFERENCE POPULATION, HAS BEEN CONFIRMED THE DECISION THRESHOLD FOR TN DIAGNOSIS. 99TH PERCENTILE = 76.2 PG/ML NOTE: HIGH-SENSITIVITY TROPONIN ASSAY IS NOT INTENDED TO BE USED IN ISOLATION BUT SHOULD BE INTERPRETED IN CONJUNCTION WITH OTHER DIAGNOSTIC AND CLINICAL INFORMATION. Performing Lab: see note ML - [facility] LB Prothrombin Time INR Reviewed date:06/15/2024 05:37:58 PM Interpretation: Performing Lab: Notes/Report: [facility] , Prothrombin Time 11.5 9.0-11.6 sec INR 1.09 DESIRED INR: 2.0-3.0 CONDITIONS NOT LISTED BELOW 2.5-3.5 FOR PROSTHETIC HEART VALVE REPLACEMENT 2.5-3.5 RECURRENT THROMBOSIS Performing Lab: see note - [facility] LB PROF 14(COMP METB) Reviewed date:06/15/2024 05:37:58 PM Interpretation: Performing Lab: Notes/Report: [facility] , Sodium 139 136-145 mmol/L Potassium [...] Performing Lab: see note ML - [facility] LB CBC AUTO DIFF Reviewed date:06/15/2024 05:37:58 PM Interpretation: Performing Lab: Notes/Report: [facility] , White Blood Count 7.0 4.0-11.0 10 [...] Performing Lab: see note ML - [facility] LB BNP Reviewed date:06/15/2024 05:37:58 PM Interpretation: Performing Lab: Notes/Report: [facility] , NT Pro B Type Natriuretic Pept 704.0 <=900.0 pg/mL Performing Lab: see note ML - [facility] LB CBC AUTO DIFF (Not yet revie wed by provider) Interpretation: Performing Lab: Notes/Report: [facility] , White Blood Count 7.3 4.0-11.0 [...] Performing Lab: see note ML - [facility] LB PROF 14(COMP METB) Reviewed date:06/15/2024 05:37:58 PM Interpretation: Performing Lab: Notes/Report: [facility] , Sodium 141 136-145 mmol/L Potassium [...] 0.2 Performing Lab: see note ML - [facility] LB MAGNESIUM Reviewed date:06/15/2024 05:37:58 PM Interpretation: Performing Lab: Notes/Report: [facility] , Magnesium 2.2 1.8-2.4 mg/dL Performing Lab: see note ML - [facility] LB CBC AUTO DIFF (Not yet revie wed by provider) Interpretation: Performing Lab: Notes/Report: [facility] , White Blood Count 7.2 4.0-11.0 [...] 3/uL Performing Lab: see note ML - [facility] LB LDH (Not yet reviewed by pro vider) Interpretation: Performing Lab: Notes/Report: [facility] , Lactate Dehydrogenase 137 85-227 U/L Performing Lab: see note ML - [facility] LB PROF 14(COMP METB) (Not yet reviewed by provider) Interpretation: Performing Lab: Notes/Report: [facility] , Sodium 145 136-145 mmol/L Potassium [...] Performing Lab: see note ML - [facility] LB CBC AUTO DIFF Reviewed date:06/15/2024 05:37:58 PM Interpretation: Performing Lab: Notes/Report: [facility] , White Blood Count 11.7 4.0-11.0 [...] Performing Lab: see note ML - [facility] LB CT chest wo/w con (Not yet r eviewed by provider) Interpretation: Performing Lab: Notes/Report: Source Facility: [facility]-[address] [place] [address] [address] [address] Scan Report Signed Patient: HOANG TRAN MR#: [id number] : 1955 Acct:[id number] Age/Sex: 69 / M ADM Date: 02/20/25 Loc: LAB Attending Dr: Joan Donnelly M.D. Ordering Physician: Joan Donnelly M.D. Date of Service: 02/20/25 Procedure(s): CT chest wo/w con Accession Number(s): [id number] cc: AILIN GREEN [place] [address] Patient Name: HOANG TRAN MRN: [id number] date: 1955 Sex: M Assigned Patient Location: LAB Current Patient Location: CARD Accession/Order Number: [id number] Exam Date: 02/20/2025 16:53 Report Date: 02/20/2025 17:01 At the request of: JOAN DONNELLY MD Procedure: CT chest wo/w con [...] with slight nodular configuration. Right-sided Mediport represent Ihppeo-l-Xhan device identified tip cavoatrial junction. Abd:[Upper abdominal [...] 02/20/2025 5:01 PM Dictation Location: [place] [address] Electronically authenticated by: [id number] Y Date: 02/20/2025 17:01 Dictated By: Leno Landry M.D. Signed By: 02/20/251703 DD/ 00 TD/TT: Outpatient Coordinator: PROF Lemos(COMP METB) Reviewed date:06/15/2024 05:37:58 PM Interpretation: Performing Lab: Notes/Report: [facility] , Sodium 135 136-145 mmol/L Potassium 3.8 [...] 0.2 Performing Lab: see note ML - [facility] LB LIPID PROFILE Reviewed date:03/26/2025 09:46:41 AM Interpretation: Performing Lab: Notes/Report: [facility] , Triglycerides 124 <=150 mg/dL Cholesterol 126 <=200 mg/dL HDL Cholesterol 49 40-60 mg/dL > or =60 mg/dl - LOW CARDIOVASCULAR RISK <40 mg/dl - HIGH CARDIOVASCULAR RISK LDL Cholesterol Calculated 52.2 <100 mg/dl OPTIMAL 100-129 mg/dl NEAR OR ABOVE OPTIMAL 130-159 mg/dl BORDERLINE HIGH 160-189 mg/dl HIGH >190 mg/dl VERY HIGH VLDL CHOLESTEROL 24.8 Chol HDL Ratio 2.6 3.3 - 4.4 LOW RISK 4.4 - 7.1 AVERAGE RISK 7.1 - 11.0 MODERATE RISK >11.0 HIGH RISK Performing Lab: see note - [facility] LDH Reviewed date:06/15/2024 05:37:58 PM Interpretation: Performing Lab: Notes/Report: [facility] , Lactate Dehydrogenase 180 85-227 U/L Performing Lab: see note - [facility] PROF 14(COMP METB) Reviewed date:06/05/2024 08:09:30 AM Interpretation: Performing Lab: Notes/Report: [facility] , Sodium 137 136-145 mmol/L Potassium [...] 0.2 Performing Lab: see note ML - [facility] LB MAGNESIUM Reviewed date:06/05/2024 08:09:30 AM Interpretation: Performing Lab: Notes/Report: [facility] , Magnesium 1.8 1.8-2.4 mg/dL Performing Lab: see note - [facility] CBC AUTO DIFF Reviewed date:06/05/2024 08:09:30 AM Interpretation: Performing Lab: Notes/Report: [facility] , White Blood Count 9.1 4.0-11.0 [...] Performing Lab: see note ML - [facility] LB ECG 12 lead Reviewed date:06/05/2024 08:09:30 AM Interpretation: Performing Lab: Notes/Report: Source Facility: [facility]-[address] [place] [address] [place] [address] Electrocardiograph Report Signed Patient: HOANG TRAN MR#: [id number] : 1955 Acct:[id number] Age/Sex: 68 / M ADM Date: 06/04/24 Loc: ICU 271-[address]: Marco A Melissa D.O. Ordering Physician: Naty,Marco A D.O. 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 Repeat ECG is requested 9150 abnormal ECG Electronically Signed On 06-04-2024 23:27:39 EDT by NITO SUNSHINE Dictated By: Nito SunshineOFlora Signed By: 06/04/248 DD/ 1620 TD/TT: Outpatient Coordinator: XR chest 1V Reviewed date:06/04/2024 12:13:07 PM Interpretation: Performing Lab: Notes/Report: Source Facility: [place] [address] XRay Report Signed Patient: HOANG TRAN MR#: [id number] : 1955 Acct:[id number] Age/Sex: 68 / M ADM Date: 06/04/24 Loc: ICU 271- Attending Dr: Everett Clemens M.D. Ordering Physician: Everett Clemens M.D. Date of Service: 06/04/24 Procedure(s): XR chest 1V Accession Number(s): [id number] cc: AILIN GREEN ; Everett Clemens M.D. [place] [address] Patient Name: HOANG TRAN MRN: [id number] date: 1955 Sex: M Assigned Patient Location: SURGOUT Current Patient Location: [facility] Accession/Order Number: [id number] Exam Date: 06/04/2024 11:33 Report Date: 06/04/2024 [...] left lung base findings. Electronically authenticated by: HOANG STRANGE Date: 06/04/2024 12:04 Dictated By: Hoang Strange M.D. Signed By: 06/04/24 120 DD/ 120 TD/TT: Outpatient Coordinator: HERMELINDO camejo Reviewed date:06/05/2024 08:09:31 AM Interpretation: Performing Lab: Notes/Report: Source Facility: [place] [address] Cardiology Report Signed Patient: HOANG TRAN MR#: [id number] : 1955 Acct:[id number] Age/Sex: 68 / M ADM Date: 06/04/24 Loc: ICU 271-[address]: Marco A Melissa D.O. Ordering Physician: Marco A Melissa D.O. Date of Service: 06/04/24 Procedure(s): HERMELINDO camejo Accession Number(s): [id number] cc: AILIN GREEN ; Marco A Melissa D.O. Patient Name: HOANG TRAN MR#: [id number] : 1955 Exam Date: 06/04/2024 Ordering Doctor: MARCO A MELISSA . ECHOCARDIOGRAM REPORT PROCEDURE: CA ECHO [...] Area (Peak Walt): AoV Area (VTI): Deceleration Fisher: Pressure Half-Time: Peak Velocity(Antegrade Flow): Peak Gradient(Antegrade [...] M.D. Signed By: 06/04/241717 DD/ 16 TD/TT: Outpatient Coordinator: Troponin I High Sensitivity Reviewed date:06/04/2024 01:55:35 PM Interpretation: Performing Lab: Notes/Report: [facility] , Troponin I High Sensitivity 10.3 4.0-76.1 pg/m L CUT-OFF POINTS HAVE BEEN ESTABLISHED BASED ON THE FOURTH UNIVERSAL DEFINITION OF MYOCARDIAL INFARCTION. THE UPPER REFERENCE LIMIT (URL) OF TROPONIN, DEFINED THE 99TH PERCENTILE OF cTnI DISTRIBUTION IN A REFERENCE POPULATION, HAS BEEN CONFIRMED THE DECISION THRESHOLD FOR TN DIAGNOSIS. 99TH PERCENTILE = 76.2 PG/ML NOTE: HIGH-SENSITIVITY TROPONIN ASSAY IS NOT INTENDED TO BE USED IN ISOLATION BUT SHOULD BE INTERPRETED IN CONJUNCTION WITH OTHER DIAGNOSTIC AND CLINICAL INFORMATION. Performing Lab: see note ML - [facility] TSH Reviewed date:06/04/2024 01:58:05 PM Interpretation: Performing Lab: Notes/Report: [facility] , Thyroid Stimulating Hormone 0.348 0.35 8-3.740 uIU/mL Performing Lab: see note ML - [facility] LB MAGNESIUM Reviewed date:06/04/2024 12:14:13 PM Interpretation: Performing Lab: Notes/Report: [facility] , Magnesium 1.9 1.8-2.4 mg/dL Performing Lab: see note ML - [facility] LB BNP Reviewed date:06/04/2024 01:58:05 PM Interpretation: Performing Lab: Notes/Report: [facility] , NT Pro B Type Natriuretic Pept 294.0 <=900.0 pg/mL Performing Lab: see note ML - [facility] LB Lupus Anticoagulant Reflex Reviewed date:06/04/2024 01:55:35 [...] the absence of anticoagulant therapy. Performed at: [address] [id number] Fast Food Assistant Restaurant Manager: Ash Wilcox MD, Phone: [phone] Performing Lab: see note [facility] Hep B Core Ab, Tot Reviewed date:06/04/2024 01:55:35 PM Interpretation: Performing Lab: Notes/Report: [facility] , Hep B Core Ab, Tot Negative Negative Performed at: [address] [id number] Fast Food Assistant Restaurant Manager: Neville Long PhD, Phone: [phone] Performing Lab: see note [facility] Hepatitis B Surf Ab Quant Reviewed date:06/04/2024 01:55:35 PM Interpretation: Performing Lab: [facility] B Surf Ab Quant <3.5 Immuni ty>10 mIU/mL Status of Immunity Anti-HBs Level Inconsistent with Immunity 0.0 - 10.0 Consistent with Immunity >10.0 Performing Lab: see note [facility] HBsAg Screen Reviewed date:06/04/2024 01:55:35 PM Interpretation: Performing Lab: Notes/Report: [facility] , HBsAg Screen Negative Negative Performing Lab: see note LC - [facility] LB PROF 14(COMP METB) Reviewed date:06/04/2024 01:55:35 PM Interpretation: Performing Lab: Notes/Report: [facility] , Sodium 134 136-145 mmol/L Potassium [...] Globulin Ratio 0.3 Performing Lab: see note [facility] LB LDH Reviewed date:06/04/2024 01:55:35 PM Interpretation: Performing Lab: Notes/Report: [facility] , Lactate Dehydrogenase 197 85-227 U/L Performing Lab: see note - [facility] LB CBC AUTO DIFF Reviewed date:06/04/2024 01:55:35 PM Interpretation: Performing Lab: Notes/Report: [facility] , White Blood Count 11.7 4.0-11.0 [...] Performing Lab: see note ML - [facility] LB PET skull to mid thigh Reviewed date:06/04/2024 01:55:35 PM Interpretation: Performing Lab: Notes/Report: Source Facility: [facility]-[address] [place] [address] [place] [address] PET Report Signed Patient: HOANG TRAN MR#: [id number] : 1955 Acct:[id number] Age/Sex: 68 / M ADM Date: 05/12/24 Loc: PETCT Attending Dr: Joan Donnelly M.D. Ordering Physician: Joan Donnelly M.D. Date of Service: 05/12/24 Procedure(s): PET skull to mid thigh Accession Number(s): [id number] cc: AILIN GREEN ; Joan Donnelly M.D. [place] [address] Patient Name: HOANG TRAN MRN: [id number] date: 1955 Sex: M Assigned Patient Location: PETCT Current Patient Location: PETCT Accession/Order Number: [id number] Exam Date: 05/12/2024 15:27 Report Date: 05/14/2024 16:07 At the request of: JOAN DONNELLY Procedure: PET skull to mid thigh [...] Dictated By: Kasi Sanchez M.D. Signed By: 05/14/241609 DD/ 06 TD/TT: Outpatient Coordinator: PROF Lemos(COMP METB) Reviewed date:04/23/2024 05:50:41 PM Interpretation: Performing Lab: Notes/Report: [facility] , Sodium 136 136-145 mmol/L Potassium 3.6 [...] Performing Lab: see note ML - [facility] LB CBC AUTO DIFF Reviewed date:04/23/2024 05:50:41 PM Interpretation: Performing Lab: Notes/Report: [facility] , White Blood Count 8.2 4.0-11.0 [...] 3/uL Performing Lab: see note ML - [facility] LB Urine Culture, Routine Reviewed date:04/24/2024 04:45:33 PM Interpretation: Performing Lab: Notes/Report: [facility] , Urine Culture, Routine See Below For Report Urine Culture, Routine Urine Culture, Routine No growth Urine Culture, Routine Urine Culture, Routine Performed at: - [facility] [place] Urine Culture, Routine Urine Culture, Routine [address] [place] [id number] Urine Culture, Routine Urine Culture, Routine Fast Food Assistant Restaurant Manager: Neville Long PhD, Phone: [phone] Urine Culture, Routine Performing Lab: see note LC - [facility] LB SEE REPORT - Fleet Sales Associate Id information not found for OBX-specific associate producer legend UA RANDOM W or MICROSCOPIC Reviewed date:04/22/2024 03:30:52 PM Interpretation: Performing Lab: Notes/Report: [facility] , Color Urine YELLOW YELLOW Clarity Urine CLEAR CLEAR Specific [place] Urine 1.020 1.005-1.025 pH Urine 6.0 5.0-9.0 [...] ORDERED Performing Lab: see note ML - [facility] LB PROF 14(COMP METB) Reviewed date:04/22/2024 07:36:22 AM Interpretation: Performing Lab: Notes/Report: [facility] , Sodium 133 136-145 mmol/L Potassium [...] Performing Lab: see note ML - [facility] LB CBC AUTO DIFF Reviewed date:04/22/2024 07:36:22 AM Interpretation: Performing Lab: Notes/Report: [facility] , White Blood Count 8.9 4.0-11.0 [...] 3/uL Performing Lab: see note ML - [facility] LB TSH Reviewed date:08/12/2024 04:06:27 PM Interpretation: Performing Lab: Notes/Report: [facility] , Thyroid Stimulating Hormone 1.628 0.35 8-3.740 uIU/mL Performing Lab: see note - [facility] LB Manual Differential Reviewed date:08/18/2024 08:27:53 AM Interpretation: Performing Lab: Notes/Report: [facility] , Segmented Neutrophils % Manual 60.0 [...] 1.20-3.80 10 3/uL Monocytes Absolute Manual 1.69 0.30-0.80 10 3/ uL Eosinophils Absolute Manual 0.33 0.00-0.70 10 3/uL Basophils Abs Manual 0.67 0.00-0.10 10 3/uL Metamyelocytes Absolute Manual 0.16 Myelocytes Absolute Manual 0.50 Nucleated Red Blood Cells 1 Anisocytosis 1+ Performing Lab: see note ML - [facility] LB Manual Differential Reviewed date:08/18/2024 08:27:53 AM Interpretation: Performing Lab: Notes/Report: [facility] , Segmented Neutrophils % Manual 67.0 [...] 1.20-3.80 10 3/uL Monocytes Absolute Manual 1.21 0.30-0.80 10 3/ uL Eosinophils Absolute Manual 0.48 0.00-0.70 10 3/uL Basophils Abs Manual 0.00 0.00-0.10 10 3/uL Metamyelocytes Absolute Manual 0.12 Anisocytosis 2+ Performing Lab: see note ML - [facility] LB CBC AUTO DIFF Reviewed date:08/18/2024 08:27:53 AM Interpretation: Performing Lab: Notes/Report: [facility] , White Blood Count 12.1 4.0-11.0 [...] Performing Lab: see note ML - [facility] LB CBC AUTO DIFF Reviewed date:08/18/2024 08:27:53 AM Interpretation: Performing Lab: Notes/Report: [facility] , White Blood Count 4.9 4.0-11.0 [...] Performing Lab: see note ML - [facility] LB Manual Differential Reviewed date:08/18/2024 08:27:53 AM Interpretation: Performing Lab: Notes/Report: [facility] , Segmented Neutrophils % Manual 21.0 43.0-75.0 Lymphocytes Percent Manual 42.0 20.5-60.0 % Monocytes Percent Manual 20.0 1.7-12.0 % Eosinophils Percent Manual 11.0 0.9-7.0 % Basophils Percent Manual 6.0 0.2-2.0 % Segmented Neut Absolute Manual 0.52 1.4-6.5 10 3/uL Lymphocytes Absolute Manual 1.05 1.20-3.80 10 3/uL Monocytes Absolute Manual 0.50 0.30-0.80 10 3/ uL Eosinophils Absolute Manual 0.27 0.00-0.70 10 3/uL Basophils Abs Manual 0.15 0.00-0.10 10 3/uL Performing Lab: see note ML - [facility] LB PROF 14(COMP METB) Reviewed date:08/18/2024 08:27:53 AM Interpretation: Performing Lab: Notes/Report: [facility] , Sodium 143 136-145 mmol/L Potassium [...] Performing Lab: see note ML - [facility] LB LDH Reviewed date:08/18/2024 08:27:53 AM Interpretation: Performing Lab: Notes/Report: [facility] , Lactate Dehydrogenase 126 85-227 U/L Performing Lab: see note - [facility] LB CRP Reviewed date:08/18/2024 08:27:53 AM Interpretation: Performing Lab: Notes/Report: [facility] , C Reactive Protein 0.60 <=0.50 mg/dL Performing Lab: see note ML - [facility] LB IRON AND TIBC Reviewed date:08/18/2024 08:27:53 AM Interpretation: Performing Lab: Notes/Report: [facility] , Iron 130.0 65.0-175.0 ug/dL Total Iron Binding Capacity 279.0 250.0-450.0 u g/dL Percent Iron Saturation 46.6 Performing Lab: see note ML - [facility] LB Erythrocyte Sedimentation Ra te Reviewed date:08/18/2024 08:27:53 AM Interpretation: Performing Lab: Notes/Report: [facility] , Erythrocyte Sedimentation Rate 41 <=20 mm/hr Performing Lab: see note ML - [facility] LB CA echo doppler complete Reviewed date:08/27/2024 12:32:14 PM Interpretation: Performing Lab: Notes/Report: Source Facility: [facility]-[address] [place] [address] [place] [address] Cardiology Report Signed Patient: HOANG TRAN MR#: [id number] : 1955 Acct:[id number] Age/Sex: 69 / M ADM Date: 08/25/24 Loc: CARD Attending Dr: CUCO BENDER Ordering Physician: CUCO BENDER Date of Service: 08/25/24 Procedure(s): CA echo doppler complete Accession Number(s): [id number] cc: CUCO BENDER; AILIN GREEN Patient Name: HOANG TRAN MR#: [id number] : 1955 Exam Date: 08/25/2024 Ordering Doctor: CUCO BENDER M.D. ECHOCARDIOGRAM REPORT PROCEDURE: CA ECHO [...] Area (VTI): 1.63 cm2, 1.79 cm2 Deceleration Fisher: 2.62 m/s2 Pressure Half-Time: 478.16 ms Peak [...] MANUEL Signed By: 08/26/241906 DD/ 05 TD/TT: Outpatient Coordinator: CBC AUTO DIFF (Not yet revie wed by provider) Interpretation: Performing Lab: Notes/Report: [facility] , White Blood Count 18.1 4.0-11.0 [...] Performing Lab: see note ML - [facility] LB LDH (Not yet reviewed by pro vider) Interpretation: Performing Lab: Notes/Report: [facility] , Lactate Dehydrogenase 158 85-227 U/L Performing Lab: see note ML - [facility] LB PROF 14(COMP METB) (Not yet reviewed by provider) Interpretation: Performing Lab: Notes/Report: [facility] , Sodium 139 136-145 mmol/L Potassium [...] Performing Lab: see note ML - [facility] LB PET skull to mid thigh (Not yet reviewed by provider) Interpretation: Performing Lab: Notes/Report: Source Facility: [facility]-[address] [place] [address] [place] [address] PET Report Signed Patient: HOANG TRAN MR#: [id number] : 1955 Acct:[id number] Age/Sex: 69 / M ADM Date: 09/08/24 Loc: PETCT Attending Dr: Joan Donnelly M.D. Ordering Physician: Joan Donnelly M.D. Date of Service: 09/08/24 Procedure(s): PET skull to mid thigh Accession Number(s): [id number] cc: AILIN GREEN ; Joan Donnelly M.D. [place] [id number] Patient Name: HOANG TRAN MRN: [id number] date: 1955 Sex: M Assigned Patient Location: PETCT Current Patient Location: PETCT Accession/Order Number: [id number] Exam Date: 09/08/2024 15:00 Report Date: 09/15/2024 15:02 At the request of: JOAN DONNELLY Procedure: PET skull to mid thigh [...] findings as described above. Electronically authenticated by: HOANG HADLEY Date: 09/15/2024 15:02 Dictated By: Hoang Hadley M.D. Signed By: 09/15/24 1505 DD/ 1502 TD/TT: Outpatient Coordinator: LDH (Not yet reviewed by pro vider) Interpretation: Performing Lab: Notes/Report: [facility] , Lactate Dehydrogenase 129 85-227 U/L Performing Lab: see note ML - [facility] LB PROF 14(COMP METB) (Not yet reviewed by provider) Interpretation: Performing Lab: Notes/Report: [facility] , Sodium 141 136-145 mmol/L Potassium [...] 0.9 Performing Lab: see note ML - [facility] LB CBC AUTO DIFF (Not yet revie wed by provider) Interpretation: Performing Lab: Notes/Report: [facility] , White Blood Count 2.3 4.0-11.0 [...] Performing Lab: see note ML - [facility] LB MAGNESIUM (Not yet reviewed by provider) Interpretation: Performing Lab: Notes/Report: [facility] , Magnesium 1.9 1.8-2.4 mg/dL Performing Lab: see note ML - [facility] LB PROF 14(COMP METB) (Not yet reviewed by provider) Interpretation: Performing Lab: Notes/Report: [facility] , Sodium 141 136-145 mmol/L Potassium [...] Performing Lab: see note ML - [facility] LB FERRITIN (Not yet reviewed b y provider) Interpretation: Performing Lab: Notes/Report: [facility] , Ferritin 158.0 26.0-388.0 ng/mL Performing Lab: see note ML - [facility] LB PET skull to mid thigh (Not yet reviewed by provider) Interpretation: Performing Lab: Notes/Report: Source Facility: [facility]-[address] [place] [address] [place] [address] PET Report Signed Patient: HOANG TRAN MR#: [id number] : 1955 Acct:[id number] Age/Sex: 69 / M ADM Date: 12/15/24 Loc: PETCT Attending Dr: Joan Donnelly M.D. Ordering Physician: Joan Donnelly M.D. Date of Service: 12/15/24 Procedure(s): PET skull to mid thigh Accession Number(s): [id number] cc: AILIN GREEN ; Joan Donnelly M.D. The [place] [address] Patient Name: HOANG TRAN MRN: [id number] date: 1955 Sex: M Assigned Patient Location: PETCT Current Patient Location: Accession/Order Number: [id number] Exam Date: 12/16/2024 09:23 Report Date: 12/16/2024 09:43 At the request of: JOAN DONNELLY MD Procedure: PET skull to mid [...] Guidry M.D. 12/16/2024 9:43 AM Dictation Location: [place] [address] Electronically authenticated by: [id number] Y Date: 12/16/2024 09:43 Dictated By: Evelyn Guidry M.D. Signed By: 12/16/24 0945 DD/ TD/TT: Outpatient Coordinator: CBC AUTO DIFF (Not yet revie wed by provider) Interpretation: Performing Lab: Notes/Report: [facility] , White Blood Count 5.6 4.0-11.0 [...] 3/uL Performing Lab: see note ML - [facility] LB LDH (Not yet reviewed by pro vider) Interpretation: Performing Lab: Notes/Report: [facility] , Lactate Dehydrogenase 136 85-227 U/L Performing Lab: see note ML - [facility] LB PROF 14(COMP METB) (Not yet reviewed by provider) Interpretation: Performing Lab: Notes/Report: [facility] , Sodium 144 136-145 mmol/L Potassium [...] Performing Lab: see note ML - [facility] LB CBC AUTO DIFF (Not yet revie wed by provider) Interpretation: Performing Lab: Notes/Report: [facility] , White Blood Count 7.4 4.0-11.0 [...] Performing Lab: see note ML - [facility] LB LDH (Not yet reviewed by pro vider) Interpretation: Performing Lab: Notes/Report: [facility] , Lactate Dehydrogenase 126 85-227 U/L Performing Lab: see note ML - [facility] LB PROF 14(COMP METB) (Not yet reviewed by provider) Interpretation: Performing Lab: Notes/Report: [facility] , Sodium 144 136-145 mmol/L Potassium [...] Performing Lab: see note ML - [facility] LB LDH (Not yet reviewed by pro vider) Interpretation: Performing Lab: Notes/Report: [facility] , Lactate Dehydrogenase 127 85-227 U/L Performing Lab: see note ML - [facility] LB PROF 14(COMP METB) (Not yet reviewed by provider) Interpretation: Performing Lab: Notes/Report: [facility] , Sodium 144 136-145 mmol/L Potassium [...] 1.0 Performing Lab: see note ML - [facility] CT soft tissue neck w con (N ot yet reviewed by provider) Interpretation: Performing Lab: Notes/Report: Source Facility: [place] [address] CT Scan Report Signed Patient: HOANG TRAN MR#: [id number] : 1955 Acct:[id number] Age/Sex: 69 / M ADM Date: 02/20/25 Loc: LAB Attending Dr: Joan Donnelly M.D. Ordering Physician: Joan Donnelly M.D. Date of Service: 02/20/25 Procedure(s): CT soft tissue neck wo/w con Accession Number(s): [id number] cc: AILIN GREEN [place] [id number] Patient Name: HOANG TRAN MRN: [id number] date: 1955 Sex: M Assigned Patient Location: LAB Current Patient Location: CARD Accession/Order Number: [id number] Exam Date: 02/20/2025 16:33 Report Date: 02/20/2025 16:43 At the request of: JOAN DONNELLY MD Procedure: CT soft tissue neck [...] 02/20/2025 4:43 PM Dictation Location: [place] [address] Electronically authenticated by: [id number] Y Date: 02/20/2025 16:43 Dictated By: Leno Landry M.D. Signed By: 02/20/25 1646 DD/ 1643 TD/TT: Outpatient Coordinator: HERMELINDO echo doppler complete Reviewed date:02/23/2025 04:55:18 PM Interpretation: Performing Lab: Notes/Report: Source Facility: [facility]-[address] [place] [address] [place] [address] Cardiology Report Signed Patient: HOANG TRAN MR#: [id number] : 1955 Acct:[id number] Age/Sex: 69 / M ADM Date: 02/20/25 Loc: CARD Attending Dr: JEROD MANUEL Ordering Physician: JEROD MANUEL Date of Service: 02/20/25 Procedure(s): CA echo doppler complete Accession Number(s): [id number] cc: AILIN GREEN ; JEROD MANUEL Patient Name: HOANG TRAN MR#: [id number] : 1955 Exam Date: 02/20/2025 Ordering Doctor: [...] M.D. Signed By: 02/22/251805 DD/ 03 TD/TT: Outpatient Coordinator: Reason For Referral Diagnosis 1 Hearing loss (H91.90 ) Referral Organization [facility] Referring Provider First Name Ailin Referring Provider Last Name Taco Referring Provider [facility] Referred Provider Eddie Sun Referred Provider Specialty Otolaryngolo gy Referral Priority Routine Diagnosis 1 Unsteady gait (R26.8 1) Referral Organization [facility] Referring Provider First Name Ailin Referring Provider Last Name Taco Referring Provider [facility] Referred Provider [facility], Physical Therap y Referred Provider Specialty Physical Med icine and Rehabilitation Referral Priority Routine Reason please schedule JOAQUIN Diagnosis 1 Unsteady gait (R26.8 1) Diagnosis 2 Generalized weakness (R53.1) Referral Organization [facility] Referring Provider First Name Ailin Referring Provider Last Name Taco Referring Provider [facility] Referred Provider Kathleen Chester Referred Provider Specialty Neurology Referral Priority Routine Diagnosis 1 Hearing loss (H91.90 ) Diagnosis 2 Bilateral impacted c erumen (H61.23) Referral Organization [facility] Referring Provider First Name Ailin Referring Provider Last Name Taco Referring Provider [facility] Referred Provider Cuco Larkin Referred Provider Specialty Otolaryngolo gy Referral Priority Routine Medications Medication SIG (Take, Route, Frequency, Duration) Notes Start Date End Date Status Dexcom G7 Sensor - Use 1 senor every 10 days; Duration: 90 days 08/08/2024 Active dilTIAZem HCl ER 240 MG 1 tablet Orally Once a day; Duration: 90 days 07/24/2024 Active Pantoprazole Sodium 40 MG 1 tablet 1/2 t o 1 hour before morning meal Orally Once a day Active Dexcom G7 Workflow Developer - Use transmitter to monitor glucose daily DX E11.9; Duration: 365 days 08/08/2024 Active Lantus SoloStar 100 UNIT/ML Inject 14 units Subcutaneous at bedtime DX:E11.9; Duration: 90 days Active Eliquis 5 MG as directed Orally b id; Duration: 90 days 07/24/2024 Active Liothyronine Sodium 5 MCG 2 tablets on a n empty stomach Orally Once a day; Duration: 30 days 05/30/2024 Active Metoprolol Tartrate 50 MG 1 tablet with food Orally Twice a day; Duration: 90 days 06/10/2024 Active Pen Runge 32G X 5 MM Use pen needles o n insulin once daily DX E11.9; Duration: 90 days 05/30/2024 Active Glucagon Emergency 1 MG as directed Inje ction as needed 04/04/2024 Active Carafate 1 GM 1 tablet on an empty stomach Orally three times daily Active Atorvastatin Calcium 40 MG TAKE 1 TABLET BY MOUTH EVERY NIGHT AT BEDTIME; Duration: 90 Active PreserVision AREDS OTC A ctive Ondansetron HCl 4 MG TAKE 1 TABLET BY MO [facility] ONCE DAILY NEEDED; Duration: 60 Active Januvia 100 MG TAKE 1 TABLET BY [facility] ON[facility]; Duration: 90 Active Social History Tobacco Use: Social [...] Problem Status W/U Status Risk Notes Problem Hodgkin's disease (disorder) (507437623) Hodgkin lymphoma, unspecified, unspecified site (C81.90) Active confirmed Problem Claustrophobia (78689360) Claustrophobia (F40.240) Active confirmed Problem Hypothyroidism (75909882) Hypothyroidism (E03.9) Active confirmed Problem Atrial fibrillation (disorder) (94584470) Afib (I48.91) Active confirmed Problem Hypertension (76478026) HTN (hypertension) (I10) Active confirmed Problem Anemia (410004312) Anemia (D64.9) Active confir med Problem Peripheral neuropathy (838268997) Peripheral neuropathy (G62.9) Active confirmed Problem Atrial fibrillation (17170842) Atrial fibrillation (I48.91) Active confirmed Problem Hearing loss (27387264) Hearing loss (H91.90) Active confirmed Problem Acquired hypothyroidism (327228759) Acquired hypothyroidism (E03.9) Active confirmed Problem Iron deficiency anemia (31598176) Iron deficiency anemia (D50.9) Active confirmed Problem Glucosuria (47841505) Glucosuria (R81) Active confirmed Problem Supraventricular arrhythmia (22626469) Supraventricular arrhythmia (I49.9) Active confirmed Problem Unsteady gait (59658865) Unsteady gait (R26.81) Active confirmed Problem Acoustic neuroma (827197012) Acoustic neuroma (D33.3) Active confirmed Problem Hodgkin lymphoma (8070072935) Hodgkin lymphoma (C81.90) Active confirmed Problem Hearing loss (90681791) Deafness in right ear (H91.91) Active confirmed Problem Adult failure to thrive syndrome (736863632) Failure to thrive in adult (R62.7) Active confirmed Problem Lower urinary tract symptoms due to benign prostatic hypertrophy (22372806618313) BPH with obstruction/lower urinary tract symptoms (N40.1) Active confirmed Problem Severe protein calorie malnutrition (621323987) Severe protein-calorie malnutrition (E43) Active confirmed Problem Tunneled central venous catheter in situ (340207202) Port-a-cath in place (Z95.828) Active confirmed Problem Hodgkins lymphom a (C81.90) Active confirmed Problem Lower urinary tract obstructive syndrome (63559585) Lower urinary obstructive symptom (N13.9) Active confirmed Problem Lung function restrictive (finding) (258319480) Restrictive pattern present on pulmonary function testing (R94.2) Active confirmed Problem Diabetes mellitus (10624195) Diabetes mellitus (E11.9) Active confirmed Problem Hyperglycemia due to diabetes mellitus (892974503) Hyperglycemia due to diabetes mellitus (E11.65) Active confirmed Vital Signs Blood pressure diastolic 58 mm Hg 08/13/2024 Height 74 in 08/13/2024 Blood pressure systolic 100 mm Hg 08/13/2024 Weight 179.2 lbs 08/13/2024 BMI 23.01 kg/m2 08/13/2024 Procedures Procedure Date Ordered Date Performed Result Body Sit e Cerumen Removal - performed 05/01/2024 N/A Encounters Encounter Location Date Provider Diagnosis [facility] [address] [place] [place] [address] 05/01/2024 Ailin Taco Nausea R11.0 ; Cerum en impaction H61.20 ; HTN (hypertension) I10 ; Claustrophobia F40.240 and Bilateral impacted cerumen H61.23 [facility] [address] [place] [place] [address] 08/13/2024 Ailin Green Diabetes mellitus E1 1.9 ; Hearing loss H91.90 and Unsteady gait R26.81 [facility] [address] [place] [address] 09/02/2024 Joan Andrzej [facility] [address] [place] [address] 09/23/2024 [facility] [address] [place] [address] 07/22/2024 Joan Andrzej [facility] [address] [place] [address] 07/16/2024 Joan Andrzej [facility] [address] [place] [address] 07/17/2024 Joan Andrzej [facility] [address] [place] [address] 08/05/2024 Joan Andrzej [facility] [address] [place] [address] 08/19/2024 Joan Andrzej [facility] [address] [place] [address] 06/10/2024 Joan Andrzej [facility] [address] [place] [address] 07/01/2024 Joan Andrzej [facility] [address] [place] [address] 01/26/2025 Jaon Andrzej [facility] [address] [place] [address] 07/15/2024 Joan Andrzej [facility] [address] [place] [address] 06/24/2024 Joan Andrzej [facility] [address] [place] [address] 06/17/2024 Joan Andrzej [facility] [address] [place] [address] 07/01/2024 Joan Andrzej [facility] [address] [place] [address] 05/15/2024 Joan Andrzej [facility] [address] [place] [address] 05/27/2024 Joan Andrzej [facility] [address] [place] [address] 06/10/2024 Joan Andrzej [facility] [address] [place] [address] 04/29/2024 Joan Andrzej [facility] [address] [place] [address] 07/22/2024 Joan Andrzej [facility] [address] [place] [address] 08/19/2024 Joan Andrzej [facility] [address] [place] [address] 09/23/2024 Joan Andrzej [facility] [address] [place] [address] 10/07/2024 Joan Andrzej [facility] [address] [place] [address] 11/18/2024 Joan Andrzej [facility] [address] [place] [address] 12/23/2024 Joan Andrzej [facility] [address] [place] [address] 02/17/2025 Joan Andrzej [facility] [address] [place] [address] 09/02/2024 Joan Andrzej [facility] [address] [place] [facility] [place] [address] 04/23/2024 Ailin Green [facility] [address] [address] 04/23/2024 Ailin Green [facility] [address] [place] [address] 04/24/2024 Ailin Green Hearing loss H91.90 [facility] [address] [place] [address] 05/01/2024 Ailin Green [facility] [address] [place] [place] [address] 05/12/2024 Ailin Green [facility] [address] [facility] [place] [address] 05/15/2024 Ailin Green Unsteady gait R26.81 ; Generalized weakness R53.1 ; Hearing loss H91.90 and Bilateral impacted cerumen H61.23 [facility] [address] [place] [address] 05/19/2024 Ailin Green [facility] [address] [place] [address] 05/28/2024 Ailin Green [facility] [address] [place] [address] 05/30/2024 Ailin Green Hyperglycemia due to diabetes mellitus E11.65 and HTN (hypertension) I10 [facility] [address] [place] [address] 05/30/2024 Ailin Green Nausea R11.0 and Hyperglycemia due to diabetes mellitus E11.65 [facility] [address] [place] [place] [address] 06/05/2024 Ailin Green [facility] [address] [place] [address] 06/06/2024 Ailin Green Hyperglycemia due to diabetes mellitus E11.65 [facility] [address] [place] [place] [address] 06/10/2024 Ailin Green [facility] [address] [place] [place] [address] 06/12/2024 Ailin Green [facility] [address] [place] [address] 06/13/2024 Ailin Green [facility] [address] [place] [address] 06/17/2024 Ailin Green [facility] [address] [place] [address] 06/20/2024 Ailin Green [facility] [address] [place] [address] 06/23/2024 Ailin Green [facility] [address] [place] [address] 07/17/2024 Ailin Green [facility] [address] [place] [address] 07/24/2024 Ailin Green [facility] [address] [place] [address] 07/24/2024 Ailin Green [facility] [address] [place] [address] 08/07/2024 Ailin Green [facility] [address] [place] [address] 08/12/2024 Ailin Green [facility] [address] [place] [address] 08/13/2024 Ailin Green [facility] [address] [place] [address] 11/11/2024 Ailin Green [facility] [address] [place] [address] 02/27/2025 Ailin Green Assessments Encounter Date Diagnosis (ICD Code) Assessment Notes Treatment Notes Treatment Clinical Notes Section Notes 04/24/2024 Hearing loss (ICD-10 - H91.90) 05/15/2024 [...] wearing hearing aids has fu with ENT [place] upcoming 05/01/2024 HTN (hypertension) (ICD-10 - I10) BP still low decrease losartan, states stopped amlodipine monitor and report BP next week 05/15/2024 Hearing loss (ICD-10 - H91.90) 05/15/2024 Bilateral impacted cerumen (ICD-10 - H61.23) 05/01/2024 Claustrophobia (ICD-10 - F40.240) upcoming MRI, PET 08/13/2024 Unsteady gait (ICD-10 - R26.81) willing to start PT now, Dr Arenas ordered pt states 05/01/2024 Bilateral impacted cerumen (ICD-10 - H61.23) 05/01/2024 Other monitor BS and report next week Plan Of Treatment Pending Test Test Name Order Date CMP (COMPLETE METABOLIC PANEL) 4 CMP (COMPLETE METABOLIC PANEL) 4 CMP (COMPLETE METABOLIC PANEL) UA (URINALYSIS, COMPLETE) [...] LIMITED RT 03/19/2024 THYROID PANEL (T4/TSH/FREE T3) THYROID PANEL (T4/TSH/FREE T3) 09/11/202 4 THYROID PANEL (T4/TSH/FREE T3) 4 Erythrocyte Sedimentation Rate 5 Manual Differential 09/02/2024 Manual Differential 08/19/2024 Manual Differential 10/07/2024 PET skull to mid thigh 09/15/2024 PET skull to mid thigh 12/16/2024 CEA 04/18/2024 CA 19-9 04/18/2024 CT soft tissue neck w con 02/20/2025 CT chest wo/w con 02/20/2025 Next Appt Details Provider Name:Joan Donnelly , 06/09/2025 11:00:00 AM, [address] [place], [address], Insurance Providers Payer Name Payer Address Payer Phone Subscriber Number Group Number Insured Name Patient Relationship to Insured Coverage Start Date Coverage End Date [employer] [address] [address] [place] [address] [id number] Hoang Tran Self - patient is the insured 4 Medical (General) History Medical History History ICD Code Anxiety F41.9 COVID-19 U07.1 Diabetes mellitus E11.9 Hyperlipidemia E78.5 Hypertension I10 Mitral valve regurgitation I34.0 Obstructive sleep apnea G47.33 Pulmonary artery hypertension I27.21 HX Brain Tumor BPH with obstruction/ lower urinary trac t symptoms overactive bladder glucosuria Surgical History Surgery Date(Month/Year) Herniated Disc Repair- L4-L5 Brain Tumor Removal 2004 port placement 06/29 Hospitalization History Reason Date(Month/Year) Lumbar Repair Brain Tumor Removal
--- OUTSIDE RECORDS SUMMARY | 2025-04-22 10:07 | XMS_ITS | Encounter Summary ---
Author Organization [employer] Address [id number] [address] [place] [address] Care Team Providers Care Skirt Maker Name Role Phone Unavailable Primary Care Provider Unavailabl e Reason for Referral * Specialty Diagnoses / Procedures Referred By Celine horton Referred To Contact Vascular Surgery [facility] [address] [place] [address] Phone: tel: fax: Referral ID Status Reason Start Date Expiration Date Visits Re quested Visits Authorized Encounter Details Date Type Department Care Team (Late st Contact Info) Description 05/22/2024 Orders Only [facility] [address] [place] [address] Jah Damian MD [address] [place] [address] Social History Tobacco Use Types Packs/Day Years [...] REFERRAL ORDERABLES Final Result Performing Organization Address City/State/[facility] Co de Phone Number MANUALLY TRANSCRIBED RESULTS documented in this encounter Visit Diagnoses Not on filedocumented in this encounter
--- OUTSIDE RECORDS SUMMARY | 2025-04-22 10:07 | XMS_ITS | Encounter Summary ---
Author Organization [facility] Address [facility] [place] [address] Care Team Providers Care Highway Maintenance Worker Name Role Phone Margo Beckman EDU Unavailable [phone] Ailin España CNP Primary Care Provider + Source Comments In the event this information is protected by the Federal Confidentiality of Alcohol and Drug AbusePatient Records regulations: The Federal rules restrict any use of the information to criminally investigate or prosecute any alcohol or drug abuse patient.[facility] Encounter Details Date Type Department Care Team (Late st Contact Info) Description 04/18/2024 Lab Requisition [facility] [address] [place] [address] Kin Lauren MD [address] [place] [address] Person encountering health services to consult on [...] EDT) Case Report Surgical Pathology Report Case: [id number] Authorizing Provider: Kin Lauren MD Collected: 04/18/2024 08:55 AM Ordering Location: [facility] Received: 04/18/2024 08:55 AM [facility] Pathologist: Crystal Mesa MD, PhD Specimen: Slide(s), 2 SLIDES [id number] 04/18/2024 5:40 PM EDT [facility] FINAL DIAGNOSIS A. Outside materials received from [facility], [place], [place] (External ID [id number], 04/14/24) Right axillary lymph node, core biopsy: -Extremely limited specimen compatible with malignancy, see comment. [facility] April 18, 2024 04/18/2024 5:40 PM EDT [facility] at 1739 EDT Diagnosis Comment Thank you for sharing [...] to contact the Hematopathology Consult Service at [phone] for any questions or if additional follow-up information becomes available. 04/18/2024 5:40 PM EDT [facility] Microscopic Description Histologic sections demonstrate [...] this limited sample. 04/18/2024 5:40 PM EDT [facility] Clinical History CONSULT REQUESTED 04/18/2024 5:40 PM EDT [facility] Performing Lab Diagnostic interpretation performed at: [facility], [address] [place] [address] CLIA# [id number] Tooth Cutter Pinion: Ramiro Degroot MD 04/18/2024 5:40 PM EDT [facility] Blocks or Slides MICROSCOPE SLIDE / Unknown 04/18/2024 8:55 AM EDT 04/18/2024 8:55 AM EDT us Kin Lauren MD SURGICAL PATHOLOGY [place] [address], documented in this encounter Visit Diagnoses Diagnosis Person encountering health services to consult on behalf of another person Other person consulting on behalf of another person documented in this encounter Care Teams Highway Maintenance Worker Relationship Specialty Start Date End Date Ailin España CNP [address] [place] [address] PCP - General Internal Medicine 12/18/[address] [place] [address] [place] [address] Registered Dietitian Nutrition 09/26/24 documented as of this encounter
--- OUTSIDE RECORDS SUMMARY | 2025-04-22 10:07 | XMS_ITS | Encounter Summary ---
Author Organization [facility] Address [address] [place] [address] Care Team Providers Care Project Control Officer Name Role Phone Margo Beckman EDU Unavailable Ailin España CNP Primary Care Provider + Source Comments In the event this information is protected by the Federal Confidentiality of Alcohol and Drug AbusePatient Records regulations: The Federal rules restrict any use of the information to criminally investigate or prosecute any alcohol or drug abuse patient.[facility] Encounter Details Date Type Department Care Team (Late st Contact Info) Description 05/05/2024 Lab Requisition [facility] [address] [place] [id number] Kin Lauren MD [address] [place] [address] Person encountering health services to consult on [...] EDT) Case Report Surgical Pathology Report Case: [id number] Authorizing Provider: Kin Lauren MD Collected: 05/05/2024 04:52 PM Ordering Location: [facility] Received: 05/05/2024 04:[address] [facility] Pathologist: Lory Vick MD, PhD Specimen: Slide(s), 18 SLIDES [id number] 05/14/2024 4:02 PM EDT [facility] FINAL DIAGNOSIS Outside slides ([id number]; 04/23/2024) from [place], [place]. A. Lymph node, right axillary, excisional biopsy: - Predominantly reactive lymphoid proliferation with a single focus of atypical [id number] lymphocytes. - See comment. ABO 05/13/2024 05/14/2024 4:02 PM EDT [facility] at 1643 EDT Diagnosis Comment Per the provided report, flow cytometric analysis detected no significant immunophenotypic abnormalities on the lymphocytes, with a CD4:CD8 ratio 4.4. Overall, the morphologic and immunophenotypic findings described below are consistent with an atypical lymphoid proliferation predominantly composed of reactive changes with a single focus of large SE49-bwjfuvgz lymphocytes. Morphologically and immunophenotypicall y, these large atypical cells are compatible with Hodgkin and Neto-Jude cells/variants. However, this tiny, focal involvement is unusual. If the patient has additional lymphadenopathy, biopsy of another site is recommended to definitely diagnose involvement by a Hodgkin lymphoma. Correlation with imaging studies is strongly recommended. This case was also reviewed by Dr. Mare Pierce ([facility] hematopathology section), who agrees with the above interpretation and final diagnosis. Thank you for sending this case in consultation. Please contact the Hematopathology Consult Service at [phone] for any questions or if additional follow-up information becomes available. Laboratory Developed Test (LDT) Disclaimer: Performance characteristics of immunohistochemical , immunofluorescent and chromogenic in-situ hybridization tests have been determined by the performing laboratory within [facility] s [facility] Pathology and Laboratory Medicine Department ([facility], [facility], [facility], [facility], [facility], [facility], or [facility]) in a manner consistent with CLIA requirements. One or more of these tests have not been cleared or approved by the FDA. [facility] is regulated under CLIA as qualified to perform high-complexity testing. These tests are used for clinical purposes. They should not be regarded as investigational or for research. Positive and negative controls stain appropriately. 05/14/2024 4:02 PM EDT [facility] Microscopic Description H&E-stained sections demonstrate fibroadipose [...] in situ hybridization stains were performed at [facility] on the requested block A2. The large [...] atypical large lymphocytes. 05/14/2024 4:02 PM EDT [facility] Clinical History CONSULT REQUESTED 05/14/2024 4:02 PM EDT [facility] Performing Lab Diagnostic interpretation performed at: [facility], [address] [place] [address], [place] [address] CLIA# [id number] Septic Cleaner: Ramiro Degroot MD 05/14/2024 4:02 PM EDT [facility] Addendum Repeat MUM1 immunostain does in fact stain the focal large atypical cells. No change in final diagnosis. ABO 05/14/2024 05/14/2024 4:02 PM EDT [facility] Addendum electronically signed by Lory Vick MD, PhD on 05/14/2024 at 1602 EDT Blocks or Slides MICROSCOPE SLIDE / Unknown 05/05/2024 4:52 PM EDT 05/05/2024 4:52 PM EDT us Kin Lauren MD SURGICAL PATHOLOGY Edited R esult - Final [facility] [address] [place] [address], [place] documented in this encounter Visit Diagnoses Diagnosis Person encountering health services to consult on behalf of another person Other person consulting on behalf of another person documented in this encounter Care Teams Project Control Officer Relationship Specialty Start Date End Date Ailin España CNP [address] [place] [address] PCP - General Internal Medicine 12/18/[address] [place] [address] [place] [address] Registered Dietitian Nutrition 09/26/24 documented as of this encounter
--- OUTSIDE RECORDS SUMMARY | 2025-04-22 10:07 | XMS_ITS | Clinical Summary ---
Author Organization [facility] Address [address] [place] [address] Care Team Providers Care Financial Aid Coordinator Name Role Phone Margo Beckman EDU Unavailable Ailin España CNP Primary Care Provider [phone] Allergies Active Allergy Reactions Criticality Noted Date Comments No Known Drug Allergies 07/24/2005 no latex allergy [Other] 07/24/2005 Medications atorvastatin (LIPITOR) 10 mg tablet Take 10 mg by mouth. 4 Active liothyronine (CYTOMEL) 5 mcg tablet Take [...] is lower risk 5 09/25/2024 Data from: https://www.neighborhoodatlas.medicine.[facility].edu/. Last address used for calculation [address] [...] 09/25/2024 9:12 AM EST Plan of Treatment Health Maintenance Due Date Last Done Comments [...] Procedure Name Priority Date/Time Associated Diagnosis Comments EXTERNAL IMAGING 04/14/2025 10:[address] OUTSIDE CD DICOM IMPORT 02/20/2025 CT OUTSIDE CD DICOM IMPORT 02/20/2025 BASIC METABOLIC PANEL 10/02/2005 7:33 AM EST from Last 3 Months or Most Recently Relevant to Health Maintenance Results * EXTERNAL IMAGING (04/14/2025 10:49 AM EDT) Anatomical Region Laterality Modality Other us External Provider PA-C RADIOLOGY Final Res ult * CT-CT CHEST WO/W CON IMPORT (02/20/2025) Anatomical Region Laterality Modality Other 02/20/2025 Narrative 04/14/2025 1:19 PM EDT Images were obtained outside of [facility] Procedure Note Provider, [facility] [place] - 04/14/2025 Images were obtained outside of [facility] Ccf Provider RADIOLOGY Final Result * CT-CT SOFT TISSUE NECK WO/W CON IMPORT (02/20/2025) Anatomical Region Laterality Modality Other 02/20/2025 Narrative 04/14/2025 1:18 PM EDT Images were obtained outside of [facility] Procedure Note Provider, [facility] - 04/14/2025 Images were obtained outside of [facility] us Ccf Provider RADIOLOGY Final Result * (ABNORMAL) BASIC METABOLIC PNL (10/02/2005 7:33 AM EST) Glucose 118(A) 65 - 100 mg/dL [facility] BUN 18 10 - 25 mg/dL [facility] Creatinine 0.9 0.7 - 1.4 mg/dL [facility] Sodium 138 135 - 146 mmol/L [facility] Potassium 4.4 3.5 - 5.0 mmol/L [facility] Chloride 97(A) 98 - 110 mmol/L [facility] CO2 30 23 - 32 mmol/L [facility] Anion Gap 11 0 - 15 mmol/L [facility] Calcium 9.7 8.5 - 10.5 mg/dL [facility] 10/02/2005 7:33 AM EST us Carlos Alberto [facility] ([facility] Final Res ult [facility] [address] [place] [address] from Last 3 Months or Most Recently Relevant to Health Maintenance Insurance [facility] MEDICARE ADVANTAGE PPO Care Teams Financial Aid Coordinator Relationship Specialty Start Date End Date Ailin España CNP [address] [place], [place] [phone] PCP - General Internal Medicine 12/18/[address] [place] [address] [place] [address] Registered Dietitian Nutrition 09/26/24
--- OUTSIDE RECORDS SUMMARY | 2025-04-22 10:07 | XMS_ITS | Clinical Summary ---
Author Organization [facility] Address [address] [place] [address] Care Team Providers Care Chopped Strand Operator Name Role Phone Ailin España MD Unavailable [phone] Ailin España MD Unavailable [phone] Lucas Arenas DO Unavailable [phone] Allergies No known active allergies Medications atorvastatin (Lipitor) 10 MG tablet Take 10 mg by mouth Daily 03/28/2024 Active Eliquis 5 MG tablet Take 5 mg by mouth in the morning and 5 mg before bedtime. 06/15/2024 Active dilTIAZem CD (Cardizem CD) 240 MG 24 hr capsule Take 240 mg by mouth Daily 06/15/2024 Active SITagliptin (Januvia) 100 MG tablet Take 100 mg by mouth Daily Active metFORMIN, OSM, (Fortamet) 1000 MG 24 hr tablet Take 1,000 mg by mouth in the evening. Take with meals Do not crush, chew, or split. Active losartan (Cozaar) 50 MG tablet Take 50 mg by mouth Daily Active liothyronine (Cytomel) 5 MCG tablet Take 10 mcg by mouth Daily Active insulin glargine (Lantus) 100 UNIT/ML injection Inject 20 Units under the skin at bedtime Active metoprolol tartrate (Lopressor) 50 MG tablet Take 50 mg by mouth in the morning and 50 mg before bedtime. Active ondansetron (Zofran) 4 MG tablet Take 4 mg by mouth every 8 (eight) hours if needed for nausea or vomiting Active Social History Tobacco Use Types Packs/Day Years Used Date Smoking Tobacco: Never Assessed Sex and Gender Information Value Date Recorded Sex Assigned at Not on file Legal Sex Male 6:49 PM EDT Gender Identity Not on file Sexual Orientation Not on file Last Filed Vital Signs Vital Sign Reading Time Taken Comments Blood Pressure 90/62 08/07/2024 10:05 AM EST Pulse 74 08/07/2024 10:05 AM EST Temperature - - Respiratory Rate - - Oxygen Saturation 96% 08/07/2024 10:05 AM EST Inhaled Oxygen Concentration - - Weight 83.3 kg (183 lb 9.6 oz) 08/07/2024 10:05 AM EST Height 188 cm (6' 2 ) 06/17/2024 12:25 PM EST Body Mass Index 23.57 06/17/2024 12:25 PM EST Plan of Treatment Not on file Insurance [employer] MEDICARE Care Teams Chopped Strand Operator Relationship Specialty Start Date End Date Ailin España MD [address] [place] [phone] Referring Physician Family Medicine 05/16/24 Ailin España MD [address] [place] [address] Referring Physician Family Medicine 05/26/24 Lucas Arenas DO [address] [place] [address] Referring Physician Neurology 08/07/24
--- OUTSIDE RECORDS SUMMARY | 2025-04-22 10:07 | XMS_ITS | Clinical Summary ---
Author Organization [facility] Address [address] [place] [address] Care Team Providers Care Gin Pole Operator Name Role Phone Ailin España CNP Primary Care Provider [phone] Allergies Active Allergy Reactions Criticality Noted Date Comments Empagliflozin Other 02/25/2024 Medications metFORMIN (Glucophage) 1,000 mg tablet Take 1 tablet twice a day by oral route for 30 days. 4 Active Januvia 100 mg tablet Take 100 mg by mouth in the morning. 4 Active insulin glargine (Lantus) 100 unit/mL injection vial Inject under the skin at bedtime. Active Eliquis 5 mg tablet Take 5 mg by mouth twice a day. 4 Active dilTIAZem CD (Cardizem CD) 240 mg 24 hr capsule Take 240 mg by mouth in the morning. 4 Active liothyronine (Cytomel) 5 mcg tablet Take 10 mcg by mouth in the morning. Active pantoprazole (ProtoNix) 40 mg EC tablet 40 mg. 4 Active prochlorperazine (Compazine) 10 mg tablet every 8 (eight) hours if needed. 4 Active ondansetron (Zofran) 4 mg tablet every 8 (eight) hours if needed. 4 Active atorvastatin (Lipitor) 10 mg tabletIndications:M ixed hyperlipidemia TAKE 1 TABLET BY MOUTH IN THE MORNING 90 tablet 3 5 Active metoprolol tartrate (Lopressor) 50 mg tabletIndications:P AF (paroxysmal atrial fibrillation) (CMS/HCC),Primary hypertension Take 1 tablet (50 mg) by mouth two times daily. 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 09/15/2024 Non-Hodgkin lymphoma 09/15/2024 OAB (overactive bladder) 09/15/2024 Poor venous access 09/15/2024 Screening PSA (prostate specific antigen) 2024 ENE (obstructive sleep apnea) 02/25/2024 Non-rheumatic mitral regurgitation 02/25/2024 Nonrheumatic aortic valve insufficiency 02/25/20 24 Primary hypertension 02/25/2024 Pulmonary arterial hypertension 06/20/2017 Encounters Date Type Department Care Team Description 04/02/2025 Telephone [facility] [address] [place] [address] Patria Coleman MA 03/23/2025 10:15 AM EDT Office Visit [facility] [address] [place] [address] Renato Staton MD Non-rheumatic mitral regurgitation (Primary Dx); PAF (paroxysmal atrial fibrillation) (CMS/HCC); Primary hypertension; Mixed hyperlipidemia; Nonrheumatic aortic valve stenosis; Nonrheumatic aortic valve insufficiency; ENE (obstructive sleep apnea) 02/23/2025 Orders Only [address] [address] ProviderOfelia MD 01/22/2025 Refill [facility] [address] [place] [address] Renato Staton MD Mixed hyperlipidemia (Primary Dx) from Last 3 Months Family History Medical History Relation Name Comments Coronary artery disease Mother Relation Name Status Comments Father Mother Social History Tobacco Use Types Packs/Day Years Used Date Smoking Tobacco: Never Smokeless Tobacco: Never Alcohol Use Standard Drinks/Week Comments Yes 0 (1 standard drink = 0.6 oz pur e alcohol) occasional Sex and Gender Information Value Date Recorded Sex Assigned at Male 03/18/2025 2:03 PM EDT Legal Sex Male 12:01 AM EDT Gender Identity Male 03/18/2025 2:03 PM EDT Sexual Orientation Heterosexual or Straight 03/06 2:03 PM EDT Last Filed Vital Signs Vital Sign Reading Time Taken Comments Blood Pressure 122/72 03/23/2025 10:43 AM EDT Pulse 57 03/23/2025 10:43 AM EDT Temperature - - Respiratory Rate - - Oxygen Saturation 97% 03/23/2025 10:43 AM EDT Inhaled Oxygen Concentration - - Weight 89.8 kg (198 lb) 03/23/2025 10:43 AM EDT Height 188 cm (6' 2 ) 03/23/2025 10:43 AM EDT Body Mass Index 25.42 03/23/2025 10:43 AM EDT Plan of Treatment Health Maintenance Due Date Last Done Comments CT Colonography 1956 Colonoscopy 1956 Diabetes: Hemoglobin A1C 1955 FOBT 1955 Medicare Annual Wellness (AWV) 1955 Sigmoidoscopy 1956 COVID-19 Vaccine (#1) 1961 Diabetes: Retinopathy Screening 1966 Depression Screening 1968 Diabetes: Urine Protein Screening 1975 Zoster Vaccines (1 of 2) 1975 Adult Tetanus 1978 Pneumococcal Vaccine: 50+ Ye ars (2 of 2 - PCV) 07/19/2018 07/19/2017 Fall Risk Screening 2021 FIT 09/05/2022 09/05/2021 Colorectal Cancer Screening 09/05/2024 FIT-DNA 09/05/2024 09/05/2021 Influenza Vaccine (#1) 2025 HIB Vaccines Aged Out No longer eligi ble based on patient's age to complete this topic HPV Vaccines Aged Out No longer eligi ble based on patient's age to complete this topic IPV Vaccines Aged Out No longer eligi ble based on patient's age to complete this topic Meningococcal B Vaccine Aged Out No l onger eligible based on patient's age to complete this topic Meningococcal Vaccine Aged Out No casey isabela eligible based on patient's age to complete this topic Rotavirus Vaccines Aged Out No longer eligible based on patient's age to complete this topic Procedures Procedure Name Priority Date/Time Associated Diagnosis Comments COMPLETE TRANSTHORACIC ECHO (TTE) W/WO IMAGING AGENT, STRAIN, 3D, BUBBLE STUDY Routine 02/20/2025 8:50 AM EDT from Last 3 Months Results * Complete Echo (TTE) w/wo Imaging Agent, Strain, 3D, Bubble Study (02/20/2025 8:50 AM EDT) Anatomical Region Laterality Modality Ultrasound us Historical Provider MD [facility]ED[facility] Final Result from Last 3 Months Insurance [employer] MEDICARE Care Teams Gin Pole Operator Relationship Specialty Start Date End Date Ailin España CNP [facility], [place] [address] PCP - General Family Medicine 02/25/24
--- OUTSIDE RECORDS SUMMARY | 2025-04-22 10:15 | XMS_ITS | CCD ---
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 Name Role Phone PHYSICIAN, DEFAULT Unavailable Unavailable [...] Physician DO González Moon Primary Care Provider [phone] MD Nabeel Strange Attending Provider MD Jassi Alegria Attending Provider Peter ELLIS Ailin Unavailable Peter ELLIS Ailin Unavailable MD Sonia Donnelly Attending Provider MEHRDAD Green Primary Care Provider Jassi Alegria Attending Unavailable Jassi Alegria Admitting Unavailable González Moon Primary Care Unavailable Nabeel Strange Admitting Unavailable Naebel Starnge Attending Unavailable Ailin Green Primary Care Unavailable Sonia Donnelly Attending Unavailable Sonia Donnelly Admitting Unavailable Jassi ALEGRIA Attending Unavailable NILL, Jassi R Attending Unavailable NILL, Jassi R Attending Unavailable NILL, Jassi R Attending Unavailable Moody POP R Attending Unavailable DONN, Moody Aranda Attending Unavailable AILIN GREEN S Referring Unavailable NILRufus, Jassi R Attending Unavailable Moody POP Attending Unavailable Jah Damian MD Primary Care Provider [phone] [phone] Primary Care Provider Unavailbraeden Arenas DO, Christopher Unavailable [phone] CLEVE QUINN Attending Unavailable DEEPA, CHRISTOPHER Referring Unavailable YANNA HARRISON Attending Unavailable DEEPA, CHRISTOPHER Attending Unavailable PETER, AILIN Referring Unavailable LILLIAN NAGEL Attending Unavailable LILLIAN NAGEL Attending Unavailable DEEPA, CHRISTOPHER Attending Unavailable DEEPA, CHRISTOPHER Attending Unavailable CLEVE QUINN Attending Unavailable DEEPA, CHRISTOPHER Referring Unavailable AUREA SANCHEZ Attending Unavailable DEEPA, CHRISTOPHER Referring Unavailable Unavailable Primary Care Provider UnavailMargo Garcia RD Unavailable [phone] Ailin Green CNP S Primary Care Provider CATRACHITO, RG Referring Unavailable CATRACHITO, RG Referring [...] RG Referring Unavailable CATRACHITO, RG Referring Unavailable FABIOLA BENDER Attending Unavailable JEROD STATON Attending Unavailable JEROD STATON Attending Unavailable Allergies Allergy Classification Reported Allergen(s) Allergy Type Date of Onset Reaction(s) Facility (2 sources) No Known Allergies; Translations: [No Known Allergies] Propensity to adverse reactions (disorder) 7 [facility] Repository (1 source) Unable to Assess Drug allergy (disorder) 4 [facility] [place] [facility] Repository (1 source) No Known Medication Allergies; Translations: [No Known Medication Allergies] Propensity to adverse reactions (disorder) [facility] Repository (15 sources) no latex allergy [Other] Propensity to adverse reactions 5 [facility] (1 source) OTHER; Translations: [OTHER] Propensity to adverse reactions (disorder) 5 [facility] Repository (1 source) empagliflozin; Translations: [EMPAGLIFLOZIN] Drug Allergy 4 [facility] Repository Medications Current Medications Medication [...] Active Start: 06-15-2024 take 1 capsule by [facility] every twenty-four hours in the morning [...] day(s), # 90 cap(s), Refills(s) 3, Pharmacy: [facility] Delivery, 187, cm, 01/21/24 11:48:00 [...] completed, # 2 tab(s), Refills(s) 0, Pharmacy: [facility], 187, cm, 01/21/24 11:48:00 EDT, Height/Length [...] atrial fibrillation; Translations: [Paroxysmal atrial fibrillation] Onset: 06-19-2024 Chronic Diabetes mellitus without complication (5 sources) [...] Onset: 2017 Unclassified (1 source) 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; Translations: [PENITENTIARY (CURRENT) USE OF ORAL 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 DRUGS] Onset: 2017 Unclassified (4 sources) Patient encounter status 01-21-2024 Viral infection (1 source) COVID-19; Translations: [COVID-19] Onset: 12-08-2020 Past or Other Problems Problem Classification Problem Date Documented Da te Episodic/Chronic Other aftercare (1 source) nursing home (current) use of aspirin; Translations: [PENITENTIARY (CURRENT) USE OF ASPIRIN] Onset: 2017 Episodic Other lower respiratory disease (1 source) Shortness of breath; Translations: [SHORTNESS OF BREATH] Onset: 2017 Episodic Other lower respiratory disease (3 sources) Cough; Translations: [COUGH] Onset: 12-06-2020 Episodic Results Test Name Value Interpretation Reference Range Facility 36on 04-02-2025 36 Regarding lab result s from 03/23/2025: MD Patria Klein MA His LDL is low. He can stop atorvastatin. LM asking that patient return my call. [facility] Office Visiton 03-23-2025 Follow-up visit [id number] Allen Tran 1955 M Date Provider Department Center 03/23/2025 JEROD BANKS ELIAS Rosario Family History Problem Relation Age of Onset Coronary artery disease Mother Family Status - Relation Status Age at Mother Father Level of Service:72267 [place] OFFICE/OUTPATIENT ESTABLISHED MOD MDM 30 MIN [facility] Orders Onlyon 02-23-2025 Orders Only [id number] Allen Tran 1955 M Date Provider Department Center 02/23/2025 [id number], HISTORICAL [facility] [place] [facility] Family History Problem Relation Age of Onset Coronary artery disease Mother Family Status - Relation Status Age at Mother Normal [facility] CNOVon 12-18-2024 CNOV Office Visit (RADTSA ) NABEEL TRAN ([id number]) 1955 M Date Time Provider Department 12/18/24 10:30 AM RG WINSTON RADTSA During your visit [...] under the care of Dr. Donnelly at [facility] and repeat pet imaging after the [...] of said technology/software. Referring Provider: RG WINSTON [[id number]] Allergies As of Date: 12/18/2024 Noted Allergy [...] for Encounter Date Provider Department Center 12/18/2024 [id number] WINSTON Forrest Buckley Encounter Status:Closed by RG WINSTON on 12/29/24 Normal [facility] CNPNon 12-02-2024 CNPN Telephone (mSchoolA) NABEEL TRAN ([id number]) 1955 M Date Time Provider Department 12/02/24 [...] by ANA PAULA CHAUHAN on 12/11/24 Normal [facility] CNOVon 11-13-2024 CNOV Office Visit (RADTSA ) NABEEL TRAN ([id number]) 1955 M Date Time Provider Department 11/13/24 [...] under the care of Dr. Donnelly at [facility] and repeat pet imaging after the third cycle on 09/08/2024 noted excellent metabolic response (Deauville 3). COURSE: Consolidative AREA TREATED: Right axilla/neck CURRENT DOSE: 98109 cGy in 18 fx PLANNED DOSE: 3600 [...] Rg Winston MD Referring Provider: RG WINSTON [[id number]] Allergies As of Date: 11/13/2024 Noted Allergy [...] Encounter Status:Closed by RG WINSTON on 11/24/24 [facility] CNOVon 11-05-2024 CNOV Office Visit (RADTSA ) NABEEL TRAN ([id number]) 1955 M Date Time Provider Department 11/05/24 10:00 AM RG WINSTON During your visit [...] under the care of Dr. Donnelly at [facility] and repeat pet imaging after the [...] Encounter Status:Closed by RG WINSTON on 11/17/24 [facility] CNOVon 10-29-2024 CNOV Office Visit (RADTSA ) NABEEL TRAN ([id number]) 1955 M Date Time Provider Department 10/29/24 10:00 AM RG WINSTON RADAURELIO During your visit today, we recorded the [...] under the care of Dr. Donnelly at [facility] and repeat pet imaging after the [...] Encounter Status:Closed by RG WINSTON on 11/10/24 [facility] CNOVon 10-21-2024 CNOV Office Visit (RADTSA ) CHELSEANABEEL Hector ([id number]) 1955 M Date Time Provider Department 10/21/24 [...] under the care of Dr. Donnelly at [facility] and repeat pet imaging after the [...] 07/24/2005 Date Reviewed: 10/21/2024 Reviewed by: Coty Cahn RN - Fully Assessed Reason for Visit: [...] Encounter Status:Closed by RG WINSTON on [facility]03/[facility] Nurse Visit (RADTSA) NABEEL TRAN ([id number]) 1955 M Date Time Provider Department 10/07/24 [...] Status:Closed by ANA PAULA CHAUHAN on 10/08/24 [facility] CNOVon 09-25-2024 CNOV Office Visit (RADTSA ) NABEEL TRAN ([id number]) 1955 M Date Time Provider Department 09/25/24 9:00 AM RG WINSTON During your visit today, we recorded the following information about you: Temperature Pulse Respiration Blood pressure 96.8 degrees 62/minute 16/minute 110/63 Weight Height 85.4 kg 1.892 m Coty Chan RN 10/20/2024 11:58 PM Signed Pacemaker/Defibrillator? No [...] the Department of Radiation Oncology at the [facility] with Rg Winston MD. He was accompanied today by his family. Final recommendations will be communicated back to the requesting physician by way of the shared medical record, or letter to requesting physician via US mail. HISTORY OF PRESENT ILLNESS: Mr. Tran is a 69-year old gentleman [place], [place] with a history of hearing loss [...] atypical lymphoproliferative disorder after second review through [facility]. A second core biopsy was [...] RETROCOCHLEAR ASSESSMENT acoustic neuroma LAMINECTOMY W/O FFD / VERT SEG LUMBAR Laminectomy, lumbar TONSILLECTOMY PRIMARY/SECONDARY Tonsillectomy FAMILY HISTORY: FAMILY HISTORY Problem Relation Age of Onset Alcohol/Drug Father SOCIAL HISTORY: Mr. Tran is , has 2 children, and lives in the [facility]. 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 He denies tobacco or alcohol use. [...] BMI 23 (more content not included)... Normal [facility] CNPNon 09-25-2024 CNPN Telephone (CosmEthicsTSA) NABEEL TRAN ([id number]) 1955 M Date Time Provider Department 09/25/24 [...] stick blood sugars* Plan start 10/20 BRANDAN Yni Jodi 09/26/2024 10:41 AM Signed Rad ed and Nutri scheduled Kathleen Werner, RT(R) 10/01/2024 7:28 AM Signed Sim scheduled on 10/07/24 at 1:30pm PSS - Please schedule nurse visit at 1:15 AND notify pt of 1:00pm arrival time, no special instructions. Thanks! Kathleen Werner RT(R)(Lakshmi) Mady Durbin 10/01/2024 8:56 AM Signed Called and spoke to Nabeel's . She confirmed his appointment times for 10/07/24 with an arrival of 1:00 PM and no special instructions. A nurse visit was added to the schedule for 1:15PM Mady Woodson PSS Allergies As of Date: 09/25/2024 Noted [...] Status:Closed by MARJAN AVILA on 10/01/24 Normal [facility] Office Visiton 09-15-2024 Follow-up visit [id number] Allen Tran 1955 M Date Provider Department Center 09/15/2024 367-JEROD STATON ELIAS [facility] Family History Problem Relation Age of Onset Coronary artery disease Mother Family Status - Relation Status Age at Mother Level of Service:03847 [place] OFFICE/OUTPATIENT ESTABLISHED MOD MDM 30 MIN Normal [facility] MLR HEMOGLOBIN A1Con 025 Glucose [Mass/Vol] 126 mg/dL [facility] HbA1c (Bld) [Mass fraction] 6 % 4.5 - 6.2 % [facility] Comment on above: ADA RECOMMENDED LIMI T 4.0 - 6.0 ADA THERAPEUTIC TARGET < 7.0 ACTION SUGGESTED > 7.0 [facility] EMG 2 Extremitieson 07-10-20 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, motor predominant and severe Can not exclude radiculopathy [facility] NVC 9-10 Nerveson 07-10-2024 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, motor predominant and severe Can not exclude radiculopathy [facility] Office Visiton 06-19-2024 Follow-up visit [id number] Allen Tran W 1955 M Date Provider Department Center 06/19/2024 FABIOLA SOLOMON ELIAS Rosario Family History Problem Relation Age of Onset Coronary artery disease Mother Family Status - Relation Status Age at Mother Level of Service:33157 [place] OFFICE/OUTPATIENT ESTABLISHED LOW MDM 20 MIN Normal [facility] Orders Onlyon 06-19-2024 Orders Only [id number] Allen Tran carol W 1955 M Date Provider Department Center 06/19/2024 JOSE ALFREDO GARCIA ELIAS [facility] Family History Problem Relation Age of Onset Coronary artery disease Mother Family Status - Relation Status Age at Mother Normal [facility] ISTAT XRay CREon 05-29-2024 ISTAT GFR > 60.0 Normal [facility] Comment on above: Result Comment: PERF ORMED BY: [place] [address] PATHOLOGIST KEYSEATING MACHINE SET UP OPERATOR KASSI WATERS M.D. Performed By: #### I SCRE #### [address] MR head/brain wo/w conon MR head/brain wo/w con [facility] [place] [address] MRI Report Signed Patient: Nabeel Tran MR#: [id number] : 1955 Acct:[id number] Age/Sex: 68 / M ADM Date: 05/29/24 Loc: MR Room: Type: [facility] Attending Dr: Sonia Donnelly MD Copies to: [...] Alexis Patel M.D.05/29/2024 1:38 PM Dictation Location: [place] [address] Transcribed By: ANDRIA 05/29/24 1338 Dictated By: Alexis Patel II, MD 05/29/24 1325 Signed By: 05/29/24 1338 Normal [facility] No Panel InformationOrdered By: Sonia Donnelly on 05-29-2024 Bedside Estimated GFR (eGFR) > 60.0 [facility] [place] [facility] Whole blood creatinine measu rementOrdered By: Sonia Donnelly on 05-29-2024 Creatinine [Mass/Vol] 0.8 mg/dL Normal 0.6-1.3 [facility] [place] [facility] Comment on above: ER/ESD physician is notified/shown all ISTAT results.Critical values may be confirmed by laboratory testing ifdeemed necessary by ER attending doctor. Result Comment: ER/E SD physician is notified/shown all ISTAT results. Critical values may be confirmed by laboratory testing if deemed necessary by ER attending doctor. Performed By: #### I SCRE #### [address] XR pre/post mri xrayon 05-29 XR pre/post mri xray [facility] [address] [place] [address] [place] [address] MRI Report Signed Patient: Nabeel Tran MR#: [id number] : 1955 Acct:[id number] Age/Sex: 68 / M ADM Date: 05/29/24 Loc: Room: Type: [facility] Attending Dr: Sonia Donnelly MD Copies to: Sonia Donnelly MD Ordering Provider: Sonia Donnelly MD Date of Service: 05/29/24 MR/MR cervical spine wo/w con: C85.90, C85.94, C85.11 ([id number]) XR/XR pre/post mri xray: C85.90, C85.94, C85.11 [...] Alexis Patel M.D.05/29/2024 1:00 PM Dictation Location: [place] [address] Transcribed By: [facility] 05/29/24 1300 Dictated By: Alexis Patel II, MD 05/29/24 1254 Signed By: 05/29/24 1300 Normal [facility] SURGICAL PATHOLOGY REFERENCE LAB CONSULTon 05-05-2024 ADDENDUM 1: Normal [facility] Comment on above: Order Comment: Speci men Type: FORMALIN-FIXED PARAFFIN-EMBEDDED TISSUE SPECIMENOrdering Facility: [facility] [place] [facility] Address: [place] [address] Result Comment: Repe at MUM1 immunostain does in fact stain the focal large atypical cells. No change in final diagnosis. ABO 05/14/2024 Addendum electronically signed by Lory Vick MD, PhD on 05/14/2024 at 4:02 PM Performed By: #### L [id number] ####[facility] LABCLIA [id number] [place] [address] [place] CASE REPORT Normal [facility] Comment on above: Order Comment: Speci men Type: FORMALIN-FIXED PARAFFIN-EMBEDDED TISSUE SPECIMENOrdering Facility: [facility] [place] [facility] Address: [place] [address] Result Comment: Surg ical Pathology Report Case: [id number] Authorizing Provider: Kin Lauren MD Collected: 05/05/2024 04:52 PM Ordering Location: [facility] Received: 05/05/2024 04:52 PM [facility] Pathologist: Lory Vick MD, PhD Specimen: Slide(s), 18 SLIDES [id number] Performed By: #### L [id number] ####[facility] LABCLIA [id number] [place] [id number] [place] CLINICAL HISTORY CONSULT REQUESTED Normal C [facility] Comment on above: Order Comment: Speci men Type: FORMALIN-FIXED PARAFFIN-EMBEDDED TISSUE SPECIMENOrdering Facility: [facility] [place] [facility] Address: [place] [address] Performed By: #### L [id number] ####[facility] LABCLIA [id number] [address] STATES [place] DIAGNOSIS COMMENT Normal [facility] Comment on above: Order Comment: Speci men Type: FORMALIN-FIXED PARAFFIN-EMBEDDED TISSUE SPECIMENOrdering Facility: [facility] Address: [place] [address] Result Comment: Per the provided report, flow cytometric analysis detected no significant immunophenotypic abnormalities on the lymphocytes, with a CD4:CD8 ratio 4.4. Overall, the morphologic and immunophenotypic findings described below are consistent with an atypical lymphoid proliferation predominantly composed of reactive changes with a single focus of large TC76-eotpnhvc lymphocytes. Morphologically and immunophenotypically, these large atypical cells are compatible with Hodgkin and Neto-Jude cells/variants. However, this tiny, focal involvement is unusual. If the patient has additional lymphadenopathy, biopsy of another site is recommended to definitely diagnose involvement by a Hodgkin lymphoma. Correlation with imaging studies is strongly recommended. This case was also reviewed by Dr. Mare Pierce ([facility] hematopathology section), who agrees with the above interpretation and final diagnosis. Thank you for sending this case in consultation. Please contact the Hematopathology Consult Service at [phone] for any questions or if additional follow-up information becomes available. Laboratory Developed Test (LDT) Disclaimer: Performance characteristics of immunohistochemical, immunofluorescent and chromogenic in-situ hybridization tests have been determined by the performing laboratory within [facility]???s [facility] Pathology and Laboratory Medicine Department ([facility], [facility], [facility], [facility], [facility], [facility], or [facility]) in a manner consistent with CLIA requirements. One or more of these tests have not been cleared or approved by the FDA. RT-PLM is regulated under CLIA as qualified to perform high-complexity testing. These tests are used for clinical purposes. They should not be regarded as investigational or for research. Positive and negative controls stain appropriately. Performed By: #### L [id number] ####[facility] LABCLIA [id number] [address] OF [place] FINAL DIAGNOSIS Normal [facility] Comment on above: Order Comment: Speci men Type: FORMALIN-FIXED PARAFFIN-EMBEDDED TISSUE SPECIMENOrdering Facility: [facility] Address: [address] [place] [id number] Result Comment: Outs roberto slides ([id number]; 04/23/2024) from [facility] [place], [place]. A. Lymph node, right axillary, excisional biopsy: - Predominantly reactive lymphoid proliferation with a single focus of atypical II13-rcakmwbh lymphocytes. - See comment. ABO 05/13/2024 Performed By: #### L [id number] ####[facility] LABCLIA [id number] [address] [place] FINAL PERFORMING LAB Normal [facility] Comment on above: Order Comment: Speci men Type: FORMALIN-FIXED PARAFFIN-EMBEDDED TISSUE SPECIMENOrdering Facility: [facility] [place] [facility] Address: [address] [place], [place] [address] [id number] Result Comment: Diag nostic interpretation performed at: [facility], [address] [place] [address] CLIA# [id number] Platinumsmith: Ramiro Degroot MD Performed By: #### L [id number] ####[facility] LABCLIA [id number] [address] STATES [facility] MICROSCOPIC DESCRIPTION Normal [facility] Comment on above: Order Comment: Speci men Type: FORMALIN-FIXED PARAFFIN-EMBEDDED TISSUE SPECIMENOrdering Facility: [facility] [place] [facility] Address: [facility] [address] [place] [id number] Result Comment: H&E- stained sections demonstrate fibroadipose [...] in situ hybridization stains were performed at [facility] on the requested block A2. The [...] atypical large lymphocytes. Performed By: #### L [id number] ####[facility] [id number] [place] [address] [place] Ambulatory Visit Summaryon [...] Moody Aranda Where: [facility] [address] [address]- Medications What How Much When Instructions Unchanged [...] choosing us for your care. Annabelle Krishnamurthy [facility] General Surgery Office/Clini c Noteon 04-30-2024 General Surgery Office/Clinic Note General Surgery Office/Clinic Note Chief Complaint post operative follow up HPI Staff 7 day post operative follow up post incisional biopsy right axilla adenopathy completed while inpatient at [facility]. Denies soreness, bleeding or drainage. History [...] 04/30/2024 Family History Heart disease: Mother. Normal [facility] Comment on above: Result Comment: Elec tronically Signed By: AIRAM ELLIS, Jassi Rodney\Date and Time Signed: 04/30/24 14:51 EDT Robert 04-23-2024 L Specimen: [id number] R eceived: 04/23/24-1322 Status: SOUT Re Num: [id number] Spec Type: Surgical Subm Dr: Jassi Alegria MD FACS Tissues: A Lymph Node - Biopsy (Needle or Incisional) (R AXILLARY LYMPH NODE BX) Procedures: CD45/2, HE/4, Gross/Micro L4, AE1-AE3, BCL-2, BCL-6, CD10, CD20, CD23, CD3, CD30/2, CD5, PAX5/2 Age/ Patient Sex Location Account Attending Physician ChelseaNabeel Hector 68/M LAB[facility] [id number] Jassi Alegria MD FACS SPEC NUM: [id number] RECD: 04/23/24 STATUS: SOUT REQ NUM: [id number] RANJITH: 04/23/[address] [facility] [address]: Jassi Alegria MD FACS ENTERED: 04/23/24 [facility] DR: SPEC TYPE: Surgical DEPT: LUANA MOYER ENTERED BY: [id number] RECV BY: [id number] ORDERED: CD45/2, HE/4, Gross/Micro L4, AE1-AE3, BCL-2, BCL-6, CD10, CD20, CD23, CD3, CD30/2, CD5, PAX5/2 ORDERED: CD45/2, HE/4, Gross/Micro L4, AE1-AE3, BCL-2, BCL-6, CD10, CD20, CD23, CD3, CD30/2, CD5, PAX5/2, USS/7 Supplemental Report Addendum 3 Entered: 05/15/24-1014 Supplemental for addended consultation report from [facility] Addendum -Repeat MUM1 immunostain does in fact stain the focal large atypical cells -No change in final diagnosis Addendum Signed (signature on file) Trinity Lauren MD 05/15/24 1014 -- Addendum 2 Entered: 05/14/24-9625 Supplemental for findings of consultation report from [facility]: -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 -- Specimen: [id number] Received: 04/23/24-1321 Status: MERNA Montemayor Num: [id number] Spec Type: Surgical Subm Dr: Jassi Alegria MD FACS Tissues: A Lymph Node - Biopsy (Needle or Incisional) (R AXILLARY LYMPH NODE BX) Procedures: CD45/2, HE/4, Gross/Micro L4, AE1-AE3, BCL-2, BCL-6, CD10, CD20, CD23, CD3, CD30/2, CD5, PAX5/2 -- Patient: Nabeel Tran [id number] (Continued) -- Specimen: [id number] Received: 04/23/24 (Continued) Supplemental Report (Continued) Signed (signature on file) Trinity Lauren MD 05/01/24 1651 -- Specimen: [id number] Received: 04/23/24 Status: MERNA Montemayor Num: [id number] Spec Type: Surgical Subm Dr: Jassi Alegria MD FACS Tissues: A Lymph Node - Biopsy (Needle or Incisional) (R AXILLARY LYMPH NODE BX) Procedures: CD45/2, HE/4, Gross/Micro L4, AE1-AE3, BCL-2, BCL-6, CD10, CD20, CD23, CD3, CD30/2, CD5, PAX5/2 -- Patient: Nabeel Tran [id number] (Continued) -- Specimen: [id number] Received: 04/23/24 (Continued) Supplemental Report (Continued) lymphocytes -See comment Addendum Signed (signature on file) Kin-Gama Lauren MD 05/14/24 1437 -- Addendum 1 Entered: 05/07/24 Supplemental for findings of Flow Cytometry report from [facility] -No significant lymphoid immunophenotypic abnormalities detected Addendum Signed (signature on file) Kin-Gama Lauren MD 05/07/24943 -- Pathological Diagnosis Right [...] contributory. -The concurrent flow cytometry study from [facility] is no significant lymphoid (more content not included)... Normal [facility] SURGICAL PATHOLOGY REFERENCE LAB CONSULTon 04-18-2024 CASE REPORT Normal [facility] Comment on above: Order Comment: Speci men Type: FORMALIN-FIXED PARAFFIN-EMBEDDED TISSUE SPECIMENOrdering Facility: [facility] Address: [address] [place], [place] [id number] Result Comment: [facility] Pathology Report Case: [id number] Authorizing Provider: Kin Lauren MD Collected: 04/18/2024 08:55 AM Ordering Location: [facility] Received: 04/18/2024 08:55 AM [facility] Pathologist: Crystal Mesa MD, PhD Specimen: Slide(s), 2 SLIDES [id number] Performed By: #### L [id number] ####[facility] LABCLIA [id number] [address] CLINICAL HISTORY CONSULT REQUESTED Normal [facility] Comment on above: Order Comment: Speci men Type: FORMALIN-FIXED PARAFFIN-EMBEDDED TISSUE SPECIMENOrdering Facility: [facility] Address: [address] [place], [place] [address] Performed By: #### L [id number] ####[facility] LABCLIA [id number] [address] DIAGNOSIS COMMENT Normal [facility] Comment on above: Order Comment: Speci men Type: FORMALIN-FIXED PARAFFIN-EMBEDDED TISSUE SPECIMENOrdering Facility: [facility] Address: [address] [place], [place] [address] Result Comment: Than k you for sharing [...] to contact the Hematopathology Consult Service at [phone] for any questions or if additional follow-up information becomes available. Performed By: #### L [id number] ####[facility] LABCLIA [id number] [address] FINAL DIAGNOSIS Normal [facility] Comment on above: Order Comment: Speci men Type: FORMALIN-FIXED PARAFFIN-EMBEDDED TISSUE SPECIMENOrdering Facility: [facility] Address: [address] [place] [phone] Result Comment: A. O utside materials received from [facility], [place], [place] (External ID [id number], 04/14/24) Right axillary lymph node, core biopsy: -Extremely limited specimen compatible with malignancy, see comment. [facility] April 18, 2024 Performed By: #### L [id number] ####[facility] LABCLIA [id number] [address] STATES OF [facility] FINAL PERFORMING LAB Normal [facility] Comment on above: Order Comment: Speci men Type: FORMALIN-FIXED PARAFFIN-EMBEDDED TISSUE SPECIMENOrdering Facility: [facility] Address: [address] [place], [place] [address] Result Comment: Diag nostic interpretation performed at: [facility], [address] [address] CLIA# [id number] Platinumsmith: Ramiro Degroot MD Performed By: #### L [id number] ####[facility] LABCLIA [id number] [address] MICROSCOPIC DESCRIPTION Histologic sections demonstrate multiple [...] to further characterize this limited sample. Normal [facility] Comment on above: Order Comment: Speci men Type: FORMALIN-FIXED PARAFFIN-EMBEDDED TISSUE SPECIMENOrdering Facility: [facility] Address: [address] [place] [phone] Performed By: #### L [id number] ####[facility] LABCLIA [id number] [place] [id number] [facility] Robert 04-11-2024 L Specimen: [id number] R eceived: 04/14/24 Status: MERNA Montemayor Num: [id number] Spec Type: Surgical Subm Dr: Nabeel Strange MD Tissues: A Lymph Node - Biopsy (Needle or Incisional) (R AXILLA LYMPH NODE) B Gross Only (LYMPH NODE) Procedures: HE/2, Gross/Micro L4, Level 1 Gross Age/ Patient Sex Location Account Attending Physician Nabeel Tran 68/M LABELL [id number] Nabeel Strange MD SPEC NUM: [id number] RECD: 04/14/24 STATUS: MRENA MONTEMAYOR NUM: [id number] RANJITH: 04/11/24 DR: Nabeel Strange MD ENTERED: 04/14/[address]: Stan,Lab SPEC TYPE: Surgical DEPT: LUANA MOYER ENTERED BY: [id number] RECV BY: [id number] ORDERED: HE/2, Gross/Micro L4, Level 1 Gross ORDERED: HE/2, Gross/Micro L4, Level 1 Gross Supplemental Report Addendum 2 Entered: 04/21/24-1308 Supplemental for findings of consultation report from [facility]: A, -Extremity limited specimen compatible with malignancy, see comment Addendum Signed (signature on file) Trinity Lauren MD 04/21/24 1307 -- Addendum 1 Entered: 04/18/24-6132 Supplemental for findings of flow cytometry report from [facility]: -Tests canceled -This test is canceled due to poor sample quality / poor viability -- Specimen: [id number] Received: 04/14/24 Status: MERNA Montemayor Num: [id number] Spec Type: Surgical Subm Dr: Nabeel Strange MD Tissues: A Lymph Node - Biopsy (Needle or Incisional) (R AXILLA LYMPH NODE) B Gross Only (LYMPH NODE) Procedures: HE/2, Gross/Micro L4, Level 1 Gross -- Patient: Nabeel Tran [id number] (Continued) -- Specimen: [id number] Received: 04/14/24 (Continued) Supplemental Report (Continued) Signed (signature on file) Trinity Lauren MD 04/17/24 1127 -- Specimen: [id number] Received: 04/14/24 Status: MERAN Montemayor Num: [id number] Spec Type: Surgical Subm Dr: Nabeel Strange MD Tissues: A Lymph Node - Biopsy (Needle or Incisional) (R AXILLA LYMPH NODE) B Gross Only (LYMPH NODE) Procedures: HE/2, Gross/Micro L4, Level 1 Gross -- Patient: Nabeel Tran [id number] (Continued) -- Specimen: [id number] Received: 04/14/24 (Continued) Supplemental Report (Continued) Addendum [...] to an outside facility. DM -- Specimen: [id number] Received: 04/14/24 Status: TAMIALakshmi Miguel Num: [id number] Spec Type: Surgical Subm Dr: Nabeel Strange MD Tissues: A Lymph Node - Biopsy (Needle or Incisio (more content not included)... Normal [facility] Insurance Correspondenceon 0 01-30-2024 Insurance Correspondence [id number]#1.00TIFF Normal [facility] Consent for Procedure/Surger yon 01-22-2024 Consent for Procedure/Surgery [id number]#[id number] Normal [facility] Physician Referralon 024 Physician Referral [id number]#1.00TIFF Normal [facility] Screenson 01-22-2024 Screens [id number]#1.00TIFF Normal [facility] Ambulatory Visit Summaryon 0 01-21-2024 [...] [facility] [address], [place] [address]- Medications What When Instructions Unchanged amlodipine (amLODIPine [...] urine (ur (more content not included)... Normal [facility] Patient Educationon 01-21-20 Patient Education [...] Follow these instructions at home: ? Take spaq-bnf-okawjhb and prescription medicines only as told by [...] the medicine (more content not included)... Normal [facility] INSULINon 08-27-2021 Insulin 19.2 uIU/mL Normal 2.6-24.9 [facility] Comment on above: Performed By: #### I NSULIN #### [facility] [address] [place] [address] Dr. Forrest Lauren CBC AUTO DIFFon 08-26-2021 BASO # 0.1 103/ul Normal 0.0-0.1 [facility] Comment on above: Performed By: #### P SASC #### [facility] [address] [address] [address] Forrest Lauren Basophils/100 WBC (Bld) 0.8 % Normal 0.2-2.0 [facility] Comment on above: Performed By: #### P SASC #### [facility] [address] [place] [address] Dr. Forrest Lauren EO # 0.4 103/ul Normal 0.0-0.7 [facility] Comment on above: Performed By: #### P SASC #### [facility] [address] [address] [address] Forrest Lauren Eosinophils/100 WBC (Bld) 4.8 % Normal 0.9-7.0 [facility] Comment on above: Performed By: #### P SASC #### [facility] [address] [place] [address] Dr. Forrest Lauren Erythrocyte distribution width (RBC) [Ratio] 12.7 % Normal 11.0-15.0 [facility] Comment on above: Performed By: #### P SASC #### [facility] [address] [place] [address] Dr. Forrest Lauren Hematocrit (Bld) [Volume fraction] 48.3 % Normal 42.0-54.0 [facility] Comment on above: Performed By: #### P SASC #### [facility] [address] [place] [address] Dr. Forrest Lauren Hemoglobin (Bld) [Mass/Vol] 16.4 g/dL Normal 14.0-18.0 [facility] Comment on above: Performed By: #### P SASC #### [facility] [address] [place] [address] Dr. Forrest Lauren IG # 0.05 10e3/ul Critically high 0.00-0.03 [facility] Comment on above: Performed By: #### P SASC #### [facility] [address] [place] [address] Dr. Forrest Lauren IG % 0.6 % Critically high 0.0-0.5 [facility] Comment on above: Performed By: #### P SASC #### [facility] [address] [place] [address] Dr. Forrest Lauren LYMPH # 2.0 103/ul Normal 1.2-3.8 [facility] Comment on above: Performed By: #### P SASC #### [facility] [address] [place] [address] Dr. Forrest Lauren Lymphocytes/100 WBC (Bld) 22.6 % Normal 20.5-60.0 [facility] Comment on above: Performed By: #### P SASC #### [facility] [address] [place] [address] Dr. Forrest Lauren MANUAL DIFF REQ NO Normal [facility] Comment on above: Performed By: #### P SASC #### [facility] [address] [place] [address] Dr. Forrest Lauren MCH (RBC) [Entitic mass] 29.8 pg Normal 25.9-34.0 [facility] Comment on above: Performed By: #### P SASC #### [facility] [address] [address] [address] Forrest Lauren MCHC (RBC) [Mass/Vol] 34.0 g/dL Normal 29.9-35.2 [facility] Comment on above: Performed By: #### P SASC #### [facility] [address] [address] [address] Forrest Lauren MCV (RBC) [Entitic vol] 87.8 fL Normal 80.0-94.0 [facility] Comment on above: Performed By: #### P SASC #### [facility] [address] [address] [address] Forrest Lauren MONO # 0.7 103/ul Normal 0.3-0.8 [facility] Comment on above: Performed By: #### P SASC #### [facility] [address] [address] [address] Forrest Lauren Monocytes/100 WBC (Bld) 8.0 % Normal 1.7-12.0 [facility] Comment on above: Performed By: #### P SASC #### [facility] [address] [place] [address] Dr. Forrest Lauren NEUT # 5.7 103/ul Normal 1.4-6.5 [facility] Comment on above: Performed By: #### P SASC #### [facility] [address] [address] [address] Forrest Lauren Neutrophils/100 WBC (Bld) 63.2 % Normal 43.0-75.0 [facility] Comment on above: Performed By: #### P SASC #### [facility] [address] [address] [address] Forrest aLuren Platelet mean volume (Bld) [Entitic vol] 9.7 fL Normal 9.5-13.5 [facility] Comment on above: Performed By: #### P SASC #### [facility] [address] [place] [address] Dr. Forrest Lauren PLT 242 103/ul Normal 150-450 [facility] Comment on above: Performed By: #### P SASC #### [facility] [address] [address] [address] Forrest Lauren RBC 5.50 106/ul Normal 4.70-6.10 [facility] Comment on above: Performed By: #### P SASC #### [facility] [address] [address] [address] Forrest Lauren WBC 9.0 103/ul Normal 4.0-11.0 [facility] Comment on above: Performed By: #### P SASC #### [facility] [address] [address] [address] Forrest Lauren GLYCOHEMOGLOBIN A1Con 2021 ADA RECOMMENDATION ADA THERAPEUTIC TARG ET 6.0 - 7.0 ACTION SUGGESTED > 7.0 Normal [facility] Comment on above: Performed By: #### A 1C #### [facility] [address] [place] [address] Dr. Forrest Lauren Glucose [Mass/Vol] 194 mg/dL Normal [facility] Comment on above: Performed By: #### A 1C #### [facility] [address] [place] [address] Dr. Forrest Lauren HbA1c (Bld) [Mass fraction] 8.4 % Critically high <=6.0 [facility] Comment on above: Performed By: #### A 1C #### [facility] [address] [place] [address] Dr. Forrest Lauren LIPID PROFILEon 08-26-2021 CHOL-HDL RATIO NORM SEE BELOW Normal [facility] Comment on above: Result Comment: 3.3 - 4.4 LOW RISK 4.4 - 7.1 AVERAGE RISK 7.1 - 11.0 MODERATE RISK >11.0 HIGH RISK Performed By: #### P SASC #### [facility] [address] [place] [address] Dr. Forrest Lauren Cholesterol [Mass/Vol] 117 mg/dL Normal <=200 [facility] Comment on above: Performed By: #### P SASC #### [facility] [address] [place] [address] Dr. Forrest Lauren Cholesterol in HDL [Mass/Vol] 43 mg/dL Normal [facility] Comment on above: Performed By: #### P SASC #### [facility] [address] [address] [address] Forrest Lauren Cholesterol in LDL [Mass/Vol] 45.6 mg/dL Normal [facility] Comment on above: Performed By: #### P SASC #### [facility] [address] [address] [address] Forrest Lauren Cholesterol.total/C holesterol in HDL [Mass ratio] 2.7 {ratio} Normal [facility] Comment on above: Performed By: #### P SASC #### [facility] [address] [address] [address] Forrest Lauren HDL NORMAL > or = 60 mg/dl - LO W CARDIOVASCULAR RISK <40 mg/dl - HIGH CARDIOVASCULAR RISK Normal [facility] Comment on above: Performed By: #### P SASC #### [facility] [address] [address] [address] Forrest Lauren LDL CALC NORMAL SEE BELOW Normal [facility] Comment on above: Result Comment: <100 mg/dl OPTIMAL 100 - 129 mg/dl NEAR OR ABOVE OPTIMAL 130 - 159 mg/dl BORDERLINE HIGH 160 - 189 mg/dl HIGH >190 mg/dl VERY HIGH Performed By: #### P SASC #### [facility] [address] [address] [address] Forrest Lauren Triglyceride [Mass/Vol] 142 mg/dL Normal <=150 [facility] Comment on above: Performed By: #### P SASC #### [facility] [address] [address] [address] Forrest Lauren VLDL CALC 28.4 mg/dL Normal [facility] Comment on above: Performed By: #### P SASC #### [facility] [address] [address] [address] Forrest Lauren PROF 14(COMP METB)on 022 Albumin [Mass/Vol] 4.1 g/dL Normal 3.5-5.0 [facility] Comment on above: Performed By: #### P SASC #### [facility] [address] [address] [address] Forrest Lauren Albumin/Globulin [Mass ratio] 1.2 {ratio} Normal [facility] Comment on above: Performed By: #### P SASC #### [facility] [address] [address] [address] Forrest Lauren ALP [Catalytic activity/Vol] 82 U/L Normal 38-126 [facility] Comment on above: Performed By: #### P SASC #### [facility] [address] [address] [address] Forrest Lauren ALT [Catalytic activity/Vol] 38 U/L Normal 21-72 [facility] Comment on above: Performed By: #### P SASC #### [facility] [address] [address] [address] Forrest Lauren Anion gap [Moles/Vol] 12.7 mmol/L Normal [facility] Comment on above: Performed By: #### P SASC #### [facility] [address] [address] [address] Forrest Lauren AST [Catalytic activity/Vol] 18 U/L Normal 17-59 [facility] Comment on above: Performed By: #### P SASC #### [facility] [address] [place] [address] Dr. Forrest Lauren Bilirubin [Mass/Vol] 1.2 mg/dL Normal 0.2-1.3 [facility] Comment on above: Performed By: #### P SASC #### [facility] [address] [address] [address] Forrest Lauren Calcium [Mass/Vol] 9.7 mg/dL Normal 8.4-10.2 [facility] Comment on above: Performed By: #### P SASC #### [facility] [address] [address] [address] Forrest Lauren Chloride [Moles/Vol] 102 mmol/L Normal 98-107 [facility] Comment on above: Performed By: #### P SASC #### [facility] [address] [address] [address] Forrest Lauren CO2 [Moles/Vol] 30.6 mmol/L Critically high 22.0-30.0 [facility] Comment on above: Performed By: #### P SASC #### [facility] [address] [address] [address] Forrest Lauren Creatinine [Mass/Vol] 1.09 mg/dL Normal 0.66-1.25 [facility] Comment on above: Performed By: #### P SASC #### [facility] [address] [address] [address] Forrest Lauren EGFR-AF [place] >60 Normal >=60 [facility] Comment on above: Performed By: #### P SASC #### [facility] [address] [place] [address] Dr. Forrest Lauren EGFR-NON AF [place] >60 Normal >=60 [facility] Comment on above: Performed By: #### P SASC #### [facility] [address] [address] [address] Forrest Lauren Globulin (S) [Mass/Vol] 3.4 g/dL Normal [facility] Comment on above: Performed By: #### P SASC #### [facility] [address] [place] [address] Dr. Forrest Lauren Glucose [Mass/Vol] 238 mg/dL Critically high 74-106 [facility] Comment on above: Performed By: #### P SASC #### [facility] [address] [address] [address] Forrest Lauren Potassium [Moles/Vol] 4.3 mmol/L Normal 3.4-5.0 [facility] Comment on above: Performed By: #### P SASC #### [facility] [address] [place] [address] Dr. Forrest Lauren Protein [Mass/Vol] 7.5 g/dL Normal 6.1-8.2 [facility] Comment on above: Performed By: #### P SASC #### [facility] [address] [place] [address] Dr. Forrest Lauren Sodium [Moles/Vol] 141 mmol/L Normal 137-145 [facility] Comment on above: Performed By: #### P SASC #### [facility] [address] [address] [address] Forrest Lauren Urea nitrogen [Mass/Vol] 20.0 mg/dL Normal 9.0-20.0 [facility] Comment on above: Performed By: #### P SASC #### [facility] [address] [place] [address] Dr. Forrest Lauren Urea nitrogen/Creatinine [Mass ratio] 18.3 mg/mg Normal [facility] Comment on above: Performed By: #### P SASC #### [facility] [address] [place] [address] Dr. Forrest Lauren URIC ACID SERUMon 08-26-2021 Urate [Mass/Vol] 4.8 mg/dL Normal 3.5-8.5 [facility] Comment on above: Performed By: #### P SASC #### [facility] [address] [place] [address] Dr. Forrest Lauren [facility]on Sample Type Test performed using RT-PCR from a nasopharyngeal collected specimen. Normal [facility] Comment on above: Performed By: #### P SASC #### [facility] [address] [place] [address] Dr. Forrest Lauren SARS-CoV-2 (COVID-19) RNA MERA+probe Ql (Unsp spec) Detected Abnormal NOT DETECTED [facility] Comment on above: Result Comment: This test is not yet approved or cleared by the [place] FDA. When there are no FDA-approved or cleared tests available, and other criteria are met, FDA can make tests available under an emergency access mechanism called an Emergency Use Authorization (EUA). The EUA for this test is supported by the [place] of Health and Human Service's (HHS's) declaration [...] used). Performed By: #### P SASC #### [facility] [address] [place] [address] Dr. Forrest Lauren POINT OF CARE GLUCOSEon 05-0 Glucose [Mass/Vol] 255 mg/dL Critically high 74-106 [facility] Comment on above: Performed By: #### P OCGLUC #### [facility] [address] [place] [address] Matias Evelyn XR CHEST 1 Von 12-07-2020 [...] AMARIS WALKER Date: 2020-12-06 22:04 Normal [facility] INSULINon 10-02-2020 Insulin 16.9 uIU/mL Normal 2.6-24.9 [facility] Comment on above: Performed By: #### P SASC #### [facility] [address] [place] [address] Dr. Forrest Lauren CBC AUTO DIFFon 10-01-2020 BASO # 0.1 103/ul Normal 0.0-0.1 [facility] Comment on above: Performed By: #### C BC #### [facility] [address] [place] [address] Matias Evelyn Basophils/100 WBC (Bld) 0.6 % Normal 0.2-2.0 [facility] Comment on above: Performed By: #### C BC #### [facility] [address] [place] [address] Matias Evelyn EO # 0.4 103/ul Normal 0.0-0.7 [facility] Comment on above: Performed By: #### C BC #### [facility] [address] [id number] Matias Evelyn Eosinophils/100 WBC (Bld) 4.2 % Normal 0.9-7.0 [facility] Comment on above: Performed By: #### C BC #### [facility] [address] [place], [place] [id number] Matias Evelyn Erythrocyte distribution width (RBC) [Ratio] 13.1 % Normal 11.0-15.0 [facility] Comment on above: Performed By: #### C BC #### [facility] [address] [place] [address] Matias Evelyn Hematocrit (Bld) [Volume fraction] 50.2 % Normal 42.0-54.0 [facility] Comment on above: Performed By: #### C BC #### [facility] [address] [place] [address] Matias Evelny Hemoglobin (Bld) [Mass/Vol] 16.6 g/dL Normal 14.0-18.0 [facility] Comment on above: Performed By: #### C BC #### [facility] [address] [place], [place] [id number] Matias Evelyn IG # 0.05 10e3/ul Critically high 0.00-0.03 [facility] Comment on above: Performed By: #### C BC #### [facility] [address] [place], [place] [id number] Matias Evelyn IG % 0.6 % Critically high 0.0-0.5 [facility] Comment on above: Performed By: #### C BC #### [facility] [address] [place] [address] Matias Evelyn LYMPH # 1.9 103/ul Normal 1.2-3.8 [facility] Comment on above: Performed By: #### C BC #### [facility] [address] [place], [place] [id number] Matias Evelyn Lymphocytes/100 WBC (Bld) 22.2 % Normal 20.5-60.0 [facility] Comment on above: Performed By: #### C BC #### [facility] [address] [place], [place] [id number] Matias Evelyn MANUAL DIFF REQ NO Normal [facility] Comment on above: Performed By: #### C BC #### [facility] [address] [place], [place] [id number] Matiaswali Rivas MCH (RBC) [Entitic mass] 29.4 pg Normal 25.9-34.0 [facility] Comment on above: Performed By: #### C BC #### [facility] [address] [place], [place] [id number] Matiaswali Rivas MCHC (RBC) [Mass/Vol] 33.1 g/dL Normal 29.9-35.2 [facility] Comment on above: Performed By: #### C BC #### [facility] [address] [place] [address] Matias Evelyn MCV (RBC) [Entitic vol] 88.8 fL Normal 80.0-94.0 [facility] Comment on above: Performed By: #### C BC #### [facility] [address] [place] [address] Matias Evelyn MONO # 0.7 103/ul Normal 0.3-0.8 [facility] Comment on above: Performed By: #### C BC #### [facility] [address] [place], [place] [id number] Matias Evelyn Monocytes/100 WBC (Bld) 7.7 % Normal 1.7-12.0 [facility] Comment on above: Performed By: #### C BC #### [facility] [address] [place] [address] Matias Evelyn NEUT # 5.7 103/ul Normal 1.4-6.5 [facility] Comment on above: Performed By: #### C BC #### [facility] [address] [place], [place] [id number] Matias Evelyn Neutrophils/100 WBC (Bld) 64.7 % Normal 43.0-75.0 [facility] Comment on above: Performed By: #### C BC #### [facility] [address] [place], [place] [id number] Matias Evelyn Platelet mean volume (Bld) [Entitic vol] 10.4 fL Normal 9.5-13.5 [facility] Comment on above: Performed By: #### C BC #### [facility] [address] [place] [address] Matias Rivas PLT 243 103/ul Normal 150-450 [facility] Comment on above: Performed By: #### C BC #### [facility] [address] [place] [address] Matias Rivas RBC 5.65 106/ul Normal 4.70-6.10 [facility] Comment on above: Performed By: #### C BC #### [facility] [address] [place] [address] Matias Rivas WBC 8.7 103/ul Normal 4.0-11.0 [facility] Comment on above: Performed By: #### C BC #### [facility] [address] [place] [address] Matias Rivas FREE THYROXINE INDEX T7on FTI 2.11 Normal [facility] Comment on above: Performed By: #### U TARIK, CMP, T7, PSASC, TSH, LIPID #### [facility] [address] [place] [address] Matias Rivas T3U 34.0 % Normal 23.5-40.5 [facility] Comment on above: Performed By: #### U TARIK, CMP, T7, PSASC, TSH, LIPID #### [facility] [address] [place] [address] Matias Rivas T4 [Mass/Vol] 6.20 ug/dL Normal 5.53-11.00 [facility] Comment on above: Performed By: #### U TARIK, CMP, T7, PSASC, TSH, LIPID #### [facility] [address] [place] [address] Matias Rivas GLYCOHEMOGLOBIN A1Con 2020 ADA RECOMMENDATION ADA THERAPEUTIC TARG ET 6.0 - 7.0 ACTION SUGGESTED > 7.0 Normal [facility] Comment on above: Performed By: #### A 1C #### [facility] [address] [place], [place] [address] Matias Rivas Glucose [Mass/Vol] 266 mg/dL Normal [facility] Comment on above: Performed By: #### A 1C #### [facility] [address] [place] [id number] Matias Rivas HbA1c (Bld) [Mass fraction] 10.9 % Critically high <=6.0 [facility] Comment on above: Performed By: #### A 1C #### [facility] [address] [place] [address] Matias Rivas LIPID PROFILEon 10-01-2020 CHOL-HDL RATIO NORM SEE BELOW Normal [facility] Comment on above: Result Comment: 3.3 - 4.4 LOW RISK 4.4 - 7.1 AVERAGE RISK 7.1 - 11.0 MODERATE RISK >11.0 HIGH RISK Performed By: #### P SASC #### [facility] [address] [place] [address] Dr. Forrest Lauren Cholesterol [Mass/Vol] 110 mg/dL Normal <=200 [facility] Comment on above: Performed By: #### P SASC #### [facility] [address] [place] [address] [address] Forrest Lauren Cholesterol in HDL [Mass/Vol] 36 mg/dL Normal [facility] Comment on above: Performed By: #### P SASC #### [facility] [address] [place] [address] [address] Forrest Lauren Cholesterol in LDL [Mass/Vol] 36.2 mg/dL Normal [facility] Comment on above: Performed By: #### P SASC #### [facility] [address] [place] [address] [address] Forrest Lauren Cholesterol.total/C holesterol in HDL [Mass ratio] 3.1 {ratio} Normal [facility] Comment on above: Performed By: #### P SASC #### [facility] [address] [place] [address] Dr. Forrest Lauren HDL NORMAL > or = 60 mg/dl - LO W CARDIOVASCULAR RISK <40 mg/dl - HIGH CARDIOVASCULAR RISK Normal [facility] Comment on above: Performed By: #### P SASC #### [facility] [address] [place] [address] [address] Forrest Lauren LDL CALC NORMAL SEE BELOW Normal [facility] Comment on above: Result Comment: <100 mg/dl OPTIMAL 100 - 129 mg/dl NEAR OR ABOVE OPTIMAL 130 - 159 mg/dl BORDERLINE HIGH 160 - 189 mg/dl HIGH >190 mg/dl VERY HIGH Performed By: #### P SASC #### [facility] [address] [place] [address] [address] Forrest Lauren Triglyceride [Mass/Vol] 189 mg/dL Critically high <=150 [facility] Comment on above: Performed By: #### P SASC #### [facility] [address] [place] [address] [address] Forrest Lauren VLDL CALC 37.8 mg/dL Normal [facility] Comment on above: Performed By: #### P SASC #### [facility] [address] [place] [address] Dr. Forrest Lauren PROF 14(COMP METB)on 021 Albumin [Mass/Vol] 4.1 g/dL Normal 3.5-5.0 [facility] Comment on above: Performed By: #### U TARIK, CMP, T7, PSASC, TSH, LIPID #### [facility] [address] [place] [address] Matias Rivas Albumin/Globulin [Mass ratio] 1.2 {ratio} Normal [facility] Comment on above: Performed By: #### U TARIK, CMP, T7, PSASC, TSH, LIPID #### [facility] [address] [place] [address] Matias Evelyn ALP [Catalytic activity/Vol] 80 U/L Normal 38-126 [facility] Comment on above: Performed By: #### U TARIK, CMP, T7, PSASC, TSH, LIPID #### [facility] [address] [place] [address] Matias Evelyn ALT [Catalytic activity/Vol] 42 U/L Normal 21-72 [facility] Comment on above: Performed By: #### U TARIK, CMP, T7, PSASC, TSH, LIPID #### [facility] [address] [place] [address] Matias Evelyn Anion gap [Moles/Vol] 12.3 mmol/L Normal [facility] Comment on above: Performed By: #### U TARIK, CMP, T7, PSASC, TSH, LIPID #### [facility] [address] [place] [address] Matias Evelyn AST [Catalytic activity/Vol] 24 U/L Normal 17-59 [facility] Comment on above: Performed By: #### U TARIK, CMP, T7, PSASC, TSH, LIPID #### [facility] [address] [place] [address] Matias Evelyn Bilirubin [Mass/Vol] 1.3 mg/dL Normal 0.2-1.3 [facility] Comment on above: Performed By: #### U TARIK, CMP, T7, PSASC, TSH, LIPID #### [facility] [address] [place] [address] Matias Evelyn Calcium [Mass/Vol] 9.3 mg/dL Normal 8.4-10.2 [facility] Comment on above: Performed By: #### U TARIK, CMP, T7, PSASC, TSH, LIPID #### [facility] [address] [place] [address] Matias Evelyn Chloride [Moles/Vol] 103 mmol/L Normal 98-107 [facility] Comment on above: Performed By: #### U TARIK, CMP, T7, PSASC, TSH, LIPID #### [facility] [address] [place] [address] Matias Evelyn CO2 [Moles/Vol] 30.0 mmol/L Normal 22.0-30.0 [facility] Comment on above: Performed By: #### U TARIK, CMP, T7, PSASC, TSH, LIPID #### [facility] [address] [place] [address] Matias Evelyn Creatinine [Mass/Vol] 1.20 mg/dL Normal 0.66-1.25 [facility] Comment on above: Performed By: #### U TARIK, CMP, T7, PSASC, TSH, LIPID #### [facility] [address] [place] [address] Matias Evelyn EGFR-AF [place]ER >60 Normal >=60 [facility] Comment on above: Performed By: #### U TARIK, CMP, T7, PSASC, TSH, LIPID #### [facility] [address] [place] [address] Matias Evelyn EGFR-NON AF [place] >60 Normal >=60 [facility] Comment on above: Performed By: #### U TARIK, CMP, T7, PSASC, TSH, LIPID #### [facility] [address] [place] [address] Matias Evelyn Globulin (S) [Mass/Vol] 3.5 g/dL Normal [facility] Comment on above: Performed By: #### U TARIK, CMP, T7, PSASC, TSH, LIPID #### [facility] [address] [place] [address] Matias Evelyn Glucose [Mass/Vol] 269 mg/dL Critically high 74-106 [facility] Comment on above: Performed By: #### U TARIK, CMP, T7, PSASC, TSH, LIPID #### [facility] [address] [place] [address] Matias Evelyn Potassium [Moles/Vol] 4.3 mmol/L Normal 3.4-5.0 [facility] Comment on above: Performed By: #### U TARIK, CMP, T7, PSASC, TSH, LIPID #### [facility] [address] [place] [address] Matias Evelyn Protein [Mass/Vol] 7.6 g/dL Normal 6.1-8.2 [facility] Comment on above: Performed By: #### U TARIK, CMP, T7, PSASC, TSH, LIPID #### [facility] [address] [place] [address] Matias Evelyn Sodium [Moles/Vol] 141 mmol/L Normal 137-145 [facility] Comment on above: Performed By: #### U TARIK, CMP, T7, PSASC, TSH, LIPID #### [facility] [address] [place] [address] Matias Rivas Urea nitrogen [Mass/Vol] 17.0 mg/dL Normal 9.0-20.0 [facility] Comment on above: Performed By: #### U TARIK, CMP, T7, PSASC, TSH, LIPID #### [facility] [address] [place] [address] Matias Rivas Urea nitrogen/Creatinine [Mass ratio] 14.2 mg/mg Normal [facility] Comment on above: Performed By: #### U TARIK, CMP, T7, PSASC, TSH, LIPID #### [facility] [address] [place] [address] Matias Rivas TSHon 10-01-2020 TSH 1.574 uIU/mL Normal 0.470-4.68 0 [facility] Comment on above: Performed By: #### P SASC #### [facility] [address] [place] [address] [address] Forrest Lauren TSH RANGE SEE BELOW Normal [facility] Comment on above: Result Comment: <0.3 4 UIU/ml HYPERTHYROID 0.34-5.60 UIU/ml EUTHYROID >5.60 UIU/ml HYPOTHYROID Performed By: #### P SASC #### [facility] [address] [place] [address] [address] Forrest Lauren URIC ACID SERUMon 10-01-2020 Urate [Mass/Vol] 4.8 mg/dL Normal 3.5-8.5 [facility] Comment on above: Performed By: #### P SASC #### [facility] [address] [place] [address] [address] Forrest Lauren Cardiovascular Lab Reporton 08-03-2017 Cardiovascular Lab Report [facility] Patient Name: [facility] MR #: [id number] Physician: Jerod Miller M.D.Medicine Service Date: 2017Division of Birthdate: 6Cardiology Room #: [facility] [phone] Fax Cardiovascular Laboratory ReportINDICATION: Nabeel Tran is [...] 08/02/2017/02:42 P/Jerod Staton M.D.Date Trans: 08/03/2017 11:29 [id number]: Neville Mata D.O. [address] [place], [place] [id number] Normal [facility] Vital Signs Date Time Vital Sign Value Performing Clinician Paulai devorah 12-18-2024 10:31-0400 Body mass index (BMI) [Ratio] 23.51 kg/m2 Rg Winston MD Work Phone: [facility] 12-18-2024 10:31-0400 Body weight 84.2 kg Rg Winston MD Work Phone: [facility] 12-18-2024 10:31-0400 Diastolic blood pressure 65 mm[Hg] Rg Winston MD Work Phone: [facility] 12-18-2024 10:31-0400 Heart rate 59 /min Rg Winston MD Work Phone: [facility] 12-18-2024 10:31-0400 Respiratory rate 18 /min Rg Winston MD Work Phone: [facility] 12-18-2024 10:31-0400 SaO2% (BldA) [Mass fraction] 98 % Rg Winston MD Work Phone: [facility] 12-18-2024 10:31-0400 Systolic blood pressure 113 mm[Hg] Rg Winston MD Work Phone: [facility] 11-13-2024 10:00-0400 Body mass index (BMI) [Ratio] 22.98 kg/m2 Rg Winston MD Work Phone: [facility] 11-13-2024 10:00-0400 Body temperature 97.3 [degF] Rg Winston MD Work Phone: [facility] 11-13-2024 10:00-0400 Body weight 82.3 kg Rg iWnston MD Work Phone: [facility] 11-13-2024 10:00-0400 Diastolic blood pressure 87 mm[Hg] Rg Winston MD Work Phone: [facility] 11-13-2024 10:00-0400 Heart rate 66 /min Rg Winston MD Work Phone: [facility] 11-13-2024 10:00-0400 Respiratory rate 16 /min Rg Winston MD Work Phone: [facility] 11-13-2024 10:00-0400 SaO2% (BldA) [Mass fraction] 99 % Rg Winston MD Work Phone: [facility] 11-13-2024 10:00-0400 Systolic blood pressure 121 mm[Hg] Rg Winston MD Work Phone: [facility] 11-05-2024 09:59-0400 Body mass index (BMI) [Ratio] 23.07 kg/m2 Rg Winston MD Work Phone: [facility] 11-05-2024 09:59-0400 Body temperature 97.9 [degF] Rg Winston MD Work Phone: [facility] 11-05-2024 09:59-0400 Body weight 82.6 kg Rg Winston MD Work Phone: [facility] 11-05-2024 09:59-0400 Diastolic blood pressure 69 mm[Hg] Rg Winston MD Work Phone: [facility] 11-05-2024 09:59-0400 Heart rate 65 /min Rg Winston MD Work Phone: [facility] 11-05-2024 09:59-0400 Respiratory rate 16 /min Rg Winston MD Work Phone: [facility] 11-05-2024 09:59-0400 SaO2% (BldA) [Mass fraction] 97 % Rg Winston MD Work Phone: [facility] 11-05-2024 09:59-0400 Systolic blood pressure 121 mm[Hg] Rg Winston MD Work Phone: [facility] 10-29-2024 10:23-0400 Body mass index (BMI) [Ratio] 23.26 kg/m2 Rg Winston MD Work Phone: [facility] 10-29-2024 10:23-0400 Body temperature 97.5 [degF] Rg Winston MD Work Phone: [facility] 10-29-2024 10:23-0400 Body weight 83.3 kg Rg Winston MD Work Phone: [facility] 10-29-2024 10:23-0400 Diastolic blood pressure 60 mm[Hg] Rg Winston MD Work Phone: [facility] 10-29-2024 10:23-0400 Heart rate 64 /min Rg Winston MD Work Phone: [facility] 10-29-2024 10:23-0400 Respiratory rate 16 /min Rg Winston MD Work Phone: [facility] 10-29-2024 10:23-0400 SaO2% (BldA) [Mass fraction] 99 % Rg Winston MD Work Phone: [facility] 10-29-2024 10:23-0400 Systolic blood pressure 95 mm[Hg] Rg Winston MD Work Phone: [facility] 10-21-2024 13:45-0400 Body mass index (BMI) [Ratio] 23.54 kg/m2 Rg Winston MD Work Phone: [facility] 10-21-2024 13:45-0400 Body temperature 97.81 [degF] Rg Winston MD Work Phone: [facility] 10-21-2024 13:45-0400 Body weight 84.3 kg Rg Winston MD Work Phone: [facility] 10-21-2024 13:45-0400 Diastolic blood pressure 70 mm[Hg] Rg Winston MD Work Phone: [facility] 10-21-2024 13:45-0400 Heart rate 61 /min Rg Winston MD Work Phone: [facility] 10-21-2024 13:45-0400 Respiratory rate 18 /min Rg Winston MD Work Phone: [facility] 10-21-2024 13:45-0400 SaO2% (BldA) [Mass fraction] 95 % Rg Winston MD Work Phone: [facility] 10-21-2024 13:45-0400 Systolic blood pressure 130 mm[Hg] Rg Winston MD Work Phone: [facility] 09-25-2024 09:12-0500 Body height 189.2 cm Rg Winston MD Work Phone: [facility] 09-25-2024 09:12-0500 Body mass index (BMI) [Ratio] 23.85 kg/m2 Rg Winston MD Work Phone: [facility] 09-25-2024 09:12-0500 Body temperature 96.8 [degF] Rg Winston MD Work Phone: [facility] 09-25-2024 09:12-0500 Body weight 85.4 kg Rg Winston MD Work Phone: [facility] 09-25-2024 09:12-0500 Diastolic blood pressure 63 mm[Hg] Rg Winston MD Work Phone: [facility] 09-25-2024 09:12-0500 Heart rate 62 /min Rg Winston MD Work Phone: [facility] 09-25-2024 09:12-0500 Respiratory rate 16 /min Rg Winston MD Work Phone: [facility] 09-25-2024 09:12-0500 SaO2% (BldA) [Mass fraction] 98 % Rg Winston MD Work Phone: [facility] 09-25-2024 09:12-0500 Systolic blood pressure 110 mm[Hg] Rg Winston MD Work Phone: [facility] 08-07-2024 10:05-0500 Body mass index (BMI) [Ratio] 23.57 kg/m2 Christopher Deepa DO Work Phone: [facility] 08-07-2024 10:05-0500 Body weight 83.28 kg Christopher Deepa DO Work Phone: [facility] 08-07-2024 10:05-0500 Diastolic blood pressure 62 mm[Hg] Christopher Deepa DO Work Phone: [facility] 08-07-2024 10:05-0500 Heart rate 74 /min Christopher Deepa DO Work Phone: [facility] 08-07-2024 10:05-0500 SaO2% (BldA) [Mass fraction] 96 % Christopher Deepa DO Work Phone: [facility] 08-07-2024 10:05-0500 Systolic blood pressure 90 mm[Hg] Christopher Deepa DO Work Phone: [facility] 07-29-2024 09:12-0500 Body height 188 cm Regis Ibarra MD Work Phone: [facility] 07-29-2024 09:12-0500 Body mass index (BMI) [Ratio] 22.7 kg/m2 Regis Ibarra MD Work Phone: [facility] 07-29-2024 09:12-0500 Body temperature 97.3 [degF] Regis Ibarra MD Work Phone: [facility] 07-29-2024 09:12-0500 Body weight 80.2 kg Regis Ibarra MD Work Phone: [facility] 06-17-2024 12:25-0500 Body height 188 cm Elaner Deepa DO Work Phone: [facility] 06-17-2024 12:25-0500 Body mass index (BMI) [Ratio] 20.29 kg/m2 Christopher Deepa DO Work Phone: [facility] 06-17-2024 12:25-0500 Body weight 71.67 kg Christopher Deepa DO Work Phone: [facility] 06-17-2024 12:25-0500 Diastolic blood pressure 75 mm[Hg] Christopher Deepa DO Work Phone: [facility] 06-17-2024 12:25-0500 Heart rate 98 /min Christopher Deepa DO Work Phone: [facility] 06-17-2024 12:25-0500 SaO2% (BldA) [Mass fraction] 93 % Christopher Deepa DO Work Phone: [facility] 06-17-2024 12:25-0500 Systolic blood pressure 118 mm[Hg] Christopher Deepa DO Work Phone: [facility] 06-03-2024 09:54-0400 Diastolic blood pressure 68 mm[Hg] Jassi ALEGRIA [facility] [place] 06-03-2024 09:54-0400 Heart rate 105 /min Jassi ALEGRIA [facility] [place] 06-03-2024 09:54-0400 Respiratory rate 16 /min Jassi AIRAM [facility] 06-03-2024 09:54-0400 Systolic blood pressure 103 mm[Hg] Jassi BCL [facility] 05-29-2024 06:42-0400 Body height 190.5 cm DO [place] Social Work Phone: [facility] 05-29-2024 06:42-0400 Body weight 78.47 kg DO [place] Social Work Phone: [facility] 01-21-2024 11:44-0400 Blood Pressure Location [facility] 01-21-2024 11:44-0400 Diastolic blood pressure 72 mm[Hg] [place] [facility] 01-21-2024 11:44-0400 Heart rate 70 /min Moody [facility] 01-21-2024 11:44-0400 Respiratory rate 16 /min Moody [facility] 01-21-2024 11:44-0400 Systolic blood pressure 108 mm[Hg] Moody POP [facility] Encounters Encounter Date Encounter Type Care Provider Facility Start: 03-23-2025 End: 03-23-2025 [facility] Start: 12-18-2024 End: 12-18-2024 Patient encounter procedure Rg Winston MD Work Phone: [facility] Comment on above: Hodgkin lymphoma, un specified Hodgkin lymphoma type, unspecified body region (HCC) (Primary Dx) Start: 12-18-2024 End: 12-18-2024 ambulatory RG CATRACHITO Facility:[facility] Start: 12-02-2024 End: 12-11-2024 Telephone encounter Rg Winston MD Work Phone: [facility]iation Oncology Start: 11-17-2024 End: 11-17-2024 ambulatory RG CATRACHITO Facility:[facility] Start: 11-14-2024 End: 11-14-[address] Work Phone: [facility] Therapy Start: 11-14-2024 End: 11-14-2024 Nutrition therapy Margo Schumacher RD Work Phone: Nutrition Therapy Comment on above: Nutrition Telephone (No answer/) Start: 11-14-2024 End: 11-14-2024 ambulatory RG CATRACHITO Facility:[facility] Start: 11-13-2024 End: 11-13-2024 Patient encounter procedure Rg Winston MD Work Phone: [facility]iation Oncology Comment on above: Hodgkin lymphoma, un specified Hodgkin lymphoma type, unspecified body region (HCC) (Primary Dx) Start: 11-13-2024 End: 11-13-2024 ambulatory RG CATRACHITO Facility:[facility] Start: 11-12-2024 End: 11-12-2024 ambulatory RG CATRACHITO Facility:[facility] Start: 11-11-2024 End: 11-11-2024 ambulatory RG CATRACHITO Facility:[facility] Start: 11-10-2024 End: 11-10-2024 ambulatory RG CATRACHITO Facility:[facility] Start: 11-07-2024 End: 11-07-2024 ambulatory RG CATRACHITO Facility:[facility] Start: 11-06-2024 End: 11-06-2024 ambulatory RG CATRACHITO Facility:[facility] Start: 11-05-2024 End: 11-05-2024 Patient encounter procedure Rg Winston MD Work Phone: Radiation Oncology Comment on above: Hodgkin lymphoma, un specified Hodgkin lymphoma type, unspecified body region (HCC) (Primary Dx) Start: 11-05-2024 End: 11-05-2024 ambulatory RG CATRACHITO Facility:[facility] Start: 11-04-2024 End: 11-04-2024 ambulatory RG CATRACHITO Facility:[facility] Start: 11-03-2024 End: 11-03-2024 ambulatory RG CATRACHITO Facility:[facility] Start: 10-31-2024 End: 10-31-2024 ambulatory RG CATRACHITO Facility:[facility] Start: 10-30-2024 End: 10-30-2024 ambulatory RG CATRACHITO Facility:[facility] Start: 10-29-2024 End: 10-29-2024 Patient encounter procedure Rg Winston MD Work Phone: Radiation Oncology Comment on above: Hodgkin lymphoma, un specified Hodgkin lymphoma type, unspecified body region (HCC) (Primary Dx) Start: 10-29-2024 End: 10-29-2024 ambulatory RG CATRACHITO Facility:[facility] Start: 10-28-2024 End: 10-28-2024 ambulatory RG CATRACHITO Facility:[facility] Start: 10-27-2024 End: 10-27-2024 ambulatory RG CATRACHITO Facility:[facility] Start: 10-24-2024 End: 10-24-2024 ambulatory RG CATRACHITO Facility:[facility] Start: 10-23-2024 End: 10-23-2024 ambulatory RG CATRACHITO Facility:[facility] Start: 10-22-2024 End: 10-22-2024 ambulatory RG CATRACHITO Facility:[facility] Start: 10-21-2024 End: 10-21-2024 ambulatory RG CATRACHITO Facility:[facility] Start: 10-21-2024 End: 10-21-2024 Patient encounter procedure Rg Winston MD Work Phone: Radiation Oncology Comment on above: Hodgkin lymphoma, un specified Hodgkin lymphoma type, unspecified body region (HCC) (Primary Dx) Start: 10-08-2024 End: 10-08-2024 Patient encounter procedure [facility] Start: 10-07-2024 End: 10-21-2024 Patient encounter procedure Rg Winston MD Work Phone: Radiation Oncology Start: 10-07-2024 End: 10-21-2024 Radiation Oncology Note Rg Winston MD Work Phone: Radiation Oncology Comment on above: Simulation Note Treatment Planning Start: 10-07-2024 End: 10-07-2024 ambulatory RG WINSTON Facility:[facility] Start: 10-07-2024 End: 10-07-2024 Nursing evaluation of [...] both ears (Primary Dx) Start: 09-15-2024 End: 02-10-2025 ambulatory [facility] Start: 09-08-2024 End: 09-08-2024 Telephone encounter Regis Ibarra MD Work Phone: [facility] Start: 09-01-2024 End: 09-01-2024 Bamboo flowsheet Cleve Quinn PT Work Phone: [facility] Start: 09-01-2024 End: 09-01-2024 Bamboo flowsheet Cleve Quinn PT Work Phone: [facility] Start: 09-01-2024 End: 09-01-2024 ambulatory Cleve Lakshmi Kai PT Work Phone: [facility] Comment on above: Polyneuropathy (Prim benoit Dx); Poor balance; Weakness of both lower extremities Start: 08-22-2024 End: 08-22-2024 Bamboo flowsheet Aurea Valeroy [employer]IVE [employer] [facility] Start: 08-22-2024 End: 08-22-2024 Bamboo flowsheet Aurea Valeroy EXECUTIVE DIRECT[employer] [facility] Start: 08-22-2024 End: 08-22-2024 ambulatory Aurea Valeroy [employer]EC[employer]IVE [employer] [facility] Comment on above: Polyneuropathy (Prim benoit Dx); Poor balance; Weakness of both lower extremities Start: 08-20-2024 End: 08-20-2024 ambulatory Cleve Lakshmi Kai PT Work Phone: [facility] Comment [...] Telephone encounter Regis Ibarra MD Work Phone: [facility] - ENT Comment on above: Need office notes fa xed Start: 08-12-2024 End: 08-12-2024 Clinisync Result Encounter Christopher Deepa DO Work Phone: [facility] External Department Unsolicited Start: 08-12-2024 End: 08-12-2024 Clinisync Result Encounter Christopher Deepa DO Work Phone: [facility] External Department Unsolicited Start: 08-12-2024 End: 08-12-2024 Telephone encounter Regis Ibarra MD Work Phone: [facility] Start: 08-07-2024 End: 08-07-2024 Bamboo flowsheet Christopher Deepa DO Work Phone: [employer] [place] [address] Start: 08-07-2024 End: 08-07-2024 Bamboo flowsheet Christopher Deepa DO Work Phone: [address] [place] [address] Start: 08-07-2024 End: 08-07-2024 Office outpatient visit 25 minutes Christopher Deepa DO Work Phone: [place] [address] Comment on above: Lymphoma, unspecifie d body region, unspecified lymphoma type (CMS/HCC) (Primary Dx); Malnutrition, unspecified type (CMS/HCC); Polyneuropathy Start: 08-07-2024 End: 08-07-2024 ambulatory CHRISTOPHER DEEPA Not Available Start: 07-29-2024 End: 07-29-2024 Office outpatient new 45 minutes Regis Ibarra MD Work Phone: [facility] Comment on above: Sensorineural hearin g loss, asymmetrical (Primary Dx); Vestibular schwannoma (CMS-HCC); Hodgkin lymphoma, unspecified Hodgkin lymphoma type, unspecified body region (CMS-HCC) Start: 07-10-2024 End: 07-10-2024 Bamboo flowsheet Shelby Arenas DO Work Phone: [facility] [address] Start: 07-10-2024 End: 07-10-2024 Bamboo flowsheet Shelby Arenas DO Work Phone: [facility] [address] Start: 07-10-2024 End: 07-10-2024 Patient encounter procedure [facility] Comment on above: Weakness (Primary Dx ); Polyneuropathy Start: 07-10-2024 End: 07-10-2024 ambulatory SHELBY DEEPA Not Available Start: 07-02-2024 End: 07-02-2024 Patient encounter procedure Lillian Nagel AUD Work Phone: [facility] Comment on above: Sensorineural hearin g loss, bilateral (Primary Dx) Start: 07-02-2024 End: 07-02-2024 ambulatory LILLIAN NAGEL Not Available Start: 07-02-2024 End: 07-02-2024 Bamboo flowsheet Lillian Nagel AUD Work Phone: [facility] Start: 07-02-2024 End: 07-02-2024 Bamboo flowsheet [...] Dx) Start: 06-27-2024 End: 06-27-2024 ambulatory LILLIAN Jhonatan NAGEL Not Available Start: 06-19-2024 End: 06-19-2024 [facility] Start: 06-17-2024 End: 06-17-2024 Bamboo flowsheet Shelby Arenas DO Work Phone: [facility] Start: 06-17-2024 End: 06-17-2024 Bamboo flowsheet Shelby Arenas DO Work 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) Start: 06-16-2024 End: 06-16-2024 ambulatory CLEVE KAI Not Available Start: 06-09-2024 End: 06-09-2024 ambulatory Moody POP Facility:[facility] [place] Start: 06-09-2024 End: 06-09-2024 Patient encounter procedure Moody POP [facility] Start: 06-03-2024 End: 06-04-2024 ambulatory Jassi ALEGRIA Facility:CD:[id number] Start: 06-03-2024 End: 06-03-2024 Patient encounter procedure Jassi ALEGRIA [facility] [place] Start: 05-29-2024 End: 05-29-2024 Patient encounter procedure DO González Kuns Work Phone: [facility] [place] Work Phone: Start: 05-29-2024 End: 05-29-2024 ambulatory DO González Kuns Work Phone: [facility] Work Phone: Start: 05-26-2024 End: 05-26-2024 Bamboo flowsheet Yannadao Harrison CCC-A Work Phone: [facility] Start: 05-26-2024 End: 05-26-2024 Bamboo flowsheet Yannadao Harrison CCC-A Work Phone: [facility] Start: 05-26-2024 End: 05-26-2024 Clinical Support Yanna Oneyda Piedad CCC-A Work Phone: [facility] Comment on above: 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) Start: 04-30-2024 End: 04-30-2024 ambulatory Jassi R NILL Facility:[facility] Start: 04-30-2024 End: 04-30-2024 Patient encounter procedure Jassi R NILL [facility] [place] Start: 04-28-2024 ambulatory Jassi NILL Facility:[facility] Start: 04-23-2024 End: 04-23-2024 ambulatory DO Gonzálezisaias Harriss Work Phone: [facility] Work Phone: Start: 04-23-2024 End: 04-23-2024 Departed Referred DO Gonzálezisaias Harriss Work Phone: [facility] Start: 04-23-2024 ambulatory Jassi NILL Facility:Rehana Johnson Start: 04-22-2024 End: 04-23-2024 ambulatory Jassi R NILL Facility:CD:[id number] Start: 04-21-2024 Non-patient / Non-visit DO Felipa tt Kuns Work Phone: [facility] Work Phone: Start: 04-11-2024 End: 04-11-2024 ambulatory DO González Kuns Work Phone: [facility] Work Phone: Start: 04-11-2024 End: 04-11-2024 Departed Referred DO González Kuns Work Phone: [facility] Start: 02-11-2024 End: 02-11-2024 ambulatory Moody POP Facility:CD:[id number] Start: 01-21-2024 End: 01-21-2024 ambulatory Moody POP Facility:[facility] Start: 01-21-2024 End: 01-21-2024 Patient encounter procedure Moody POP [facility] Start: 09-12-2023 ambulatory Jassi ALEGRIA Facility:[facility] [place] Start: 08-26-2021 End: 08-26-2021 ambulatory AILIN BAKER Facility:[facility] Start: 02-23-2021 ambulatory AILIN BAKER Facility:H 1 Start: 12-06-2020 End: 12-07-2020 ambulatory ILAN TODD Facility:[facility] Start: 10-07-2020 Encounter for genera l adult medical examination without abnormal findings AILIN BAKER [facility] Start: 10-01-2020 End: 10-02-2020 ambulatory AILIN BAKER Facility:[facility] Start: 10-01-2020 End: 10-02-2020 Encounter for general adult medical examination without abnormal findings AILIN BAKER Facility:[facility]1 Start: 2017 End: 08-03-2017 Ambulatory PROVIDER UNKNOWN Facility:[facility] Start: 07-24-2017 End: 07-25-2017 Ambulatory DEFAULT PHYSICIAN Facility:[facility] Start: 07-19-2017 End: 07-20-2017 Ambulatory DEFAULT PHYSICIAN Facility:[facility] Start: 06-18-2017 End: 06-19-2017 Ambulatory DEFAULT PHYSICIAN Facility:[facility] Procedures Date Procedure Procedure Detail Performing Clinician Start: 08-12-2024 MLR HEMOGLOBIN A1C Chri yohan Arenas DO Work Phone: Start: 07-10-2024 End: 07-10-2024 Needle emg ea extremty w/paraspinl area complete Shebly Arenas DO Work Phone: Start: 06-04-2024 Insertion of implant able venous access port Moody POP Start: 05-29-2024 XR pre/post mri xray DO González Moon Work Phone: Start: 05-29-2024 MRI of cervical spin e with contrast DO González Kuns Work Phone: Start: 05-29-2024 MRI of head DO Gonzálezisaias call Work Phone: Start: 04-23-2024 Incisional biopsy Sudhir ALEGRIA Start: 08-26-2021 PSA screening AILIN KHAN Comment on above: Performed By: #### P SASC #### [facility] [address] [address] [address] Forrest Lauren Start: 10-01-2020 PSA screening AILIN KHAN Comment on above: Performed By: #### U TARIK, CMP, T7, PSASC, TSH, LIPID #### [facility] [address] [address] Matias Rivas Start: 08-06-2013 Colonoscopy Moody ASHER Start: 08-06-2004 Neoplasm of brain (disorder) Moody POP Back structure, excl uding neck (body structure) Moody POP Removal of acoustic neuroma Jassi ALEGRIA Spinal arthrodesis Jassi INFANTE Tonsillectomy Moody POP [...] AM EDT Office Visit Radiation Oncology [address] [place] [address] Rg Winston MD [address] [place] [address] 4 month follow up Radiation Oncology Comment on above: 4 month follow up Start: 04-06-2025 Influenza vaccination Influenz a Vaccine (Season Ended) [facility] Start: 12-18-2024 End: 12-18-2024 Patient encounter procedure 12/18/2024 10:30 AM EDT Office Visit Radiation Oncology [address] [place] [address] Rg Winston MD [address] [place] [address] final radiation follow up Radiation Oncology Comment on above: final radiation foll ow up Start: 12-15-2024 End: 12-15-2024 Patient encounter procedure 12/15/2024 4:00 PM EDT Office Visit Radiation Oncology [address] [place] [address] Rg Winston MD [address] [place] [address] final radiation follow up Radiation Oncology Comment on above: final radiation foll ow up Start: 11-19-2024 End: 11-19-2024 Patient encounter procedure 11/19/2024 10:00 AM EDT Office Visit Radiation Oncology [address] [place] [address] Rg Winston MD [address] [place] [address] Location: [facility] Radiation Oncology Comment on above: Location: [facility] Start: 11-17-2024 End: 11-17-2024 Patient encounter procedure 11/17/2024 9:45 AM EDT Appointment Radiation Oncology [address] [place] [address] rt axilla/ neck Radiation Oncology Comment on above: rt axilla/ neck Start: 11-14-2024 End: 11-14-2024 Patient encounter procedure 11/14/2024 2:15 PM EDT Education Nutrition Therapy [address] [place] [address] [place] [address] Nutrition consult Nutrition Therapy Comment on above: Nutrition consult Start: 11-14-2024 End: 11-14-2024 Patient encounter procedure 11/14/2024 9:45 AM EDT Appointment Radiation Oncology [address] [place] [address] rt axilla/ neck Radiation Oncology Comment on above: rt axilla/ neck Start: 11-13-2024 End: 11-13-2024 Patient encounter procedure 11/13/2024 9:45 AM EDT Appointment Radiation Oncology [address] [place] [address] rt axilla/ neck Radiation Oncology Comment on above: rt axilla/ neck Start: 11-12-2024 End: 11-12-2024 Patient encounter procedure Radiation Oncology Comment on above: rt axilla/ neck Location: [facility] Start: 11-11-2024 End: 11-11-2024 Patient encounter procedure 11/11/2024 9:45 AM EDT Appointment Radiation Oncology [address] [place] [address] rt axilla/ neck Radiation Oncology Comment on above: rt axilla/ neck Start: 11-10-2024 End: 11-10-2024 Patient encounter procedure 11/10/2024 9:45 AM EDT Appointment Radiation Oncology [address] [place] [address] rt axilla/ neck Radiation Oncology Comment on above: rt axilla/ neck Start: 11-07-2024 End: 11-07-2024 Patient encounter procedure 11/07/2024 9:45 AM EDT Appointment Radiation Oncology [address] [place] [address] rt axilla/ neck Radiation Oncology Comment on above: rt axilla/ neck Start: 11-06-2024 End: 11-06-2024 Patient encounter procedure 11/06/2024 9:45 AM EDT Appointment Radiation Oncology [address] [place] [address] rt axilla/ neck Radiation Oncology Comment on above: rt axilla/ neck Start: 11-05-2024 End: 11-05-2024 Patient encounter procedure Radiation Oncology Comment on above: rt axilla/ neck Location: [facility] Start: 11-04-2024 End: 11-04-2024 Patient encounter procedure 11/04/2024 9:45 AM EDT Appointment Radiation Oncology [address] [place] [address] [place] [address] rt axilla/ neck Radiation Oncology Comment on above: rt axilla/ neck Start: 11-03-2024 End: 11-03-2024 Patient encounter procedure 11/03/2024 3:45 PM EDT Office Visit [facility] [facility] [place] [address] Jassi Yanes MD [address] [place] [address] [facility] Start: 10-21-2024 End: 10-21-2024 Patient encounter procedure Radiation Oncology Comment on above: [place] AX[place]A Axilla- would like m chnecho Start: 10-20-2024 End: 10-20-2024 Patient encounter procedure Radiation Oncology Comment on above: [place] AXILLA- SA R PT Axilla- would like m chencho- ANN PT Start: 10-07-2024 End: 10-07-2024 Patient encounter procedure 10/07/2024 1:30 PM EST Office Visit Radiation Oncology [address] [place] [address] [place] [address] Rg Winston MD [address] [place] [address] RT AXILLA/NECK W/ IV - CONSENT DONE Radiation Oncology Comment on above: RT AXILLA/NECK W/ IV - CONSENT DONE Start: 10-07-2024 End: 10-07-2024 Nursing evaluation of patient and report 10/07/2024 1:15 PM EST Nurse Visit Radiation Oncology [address] [place] [address] Ina, Nurse Radt [address] [place] [address] Nurse Visit Radiation Oncology Comment on above: Nurse Visit Start: 09-26-2024 End: 09-26-2024 Nutrition therapy 09/26/2024 1:30 PM EST Education Nutrition Therapy [address] [place] [address] Margo Schumacher, BRITTANY [address] [place] [address] Arrived Nutrition Therapy Comment on above: Arrived Start: 09-19-2024 End: 09-19-2024 Clinical Support 09/19/2024 9:00 AM EST Clinical Support [facility] [address] [facility] [facility] [address] [address] [facility] [place] [address] Pilar Avina, RIVAS [address] [facility] [facility] [address] [facility] [address] [place] [address] [facility] Start: 09-05-2024 Screening for malign ant neoplasm of colon [facility] Start: 09-04-2024 End: 09-04-2024 Patient encounter procedure [facility] Start: 09-01-2024 End: 09-01-2024 ambulatory [facility] PT Comment on above: Arrived Start: 08-29-2024 End: 08-29-2024 ambulatory 08/29/2024 9:00 AM EST Treatment [facility] [address] [facility] [address] [place] [address] Aurea Sanchez, EXECUTIVE DIRECTOR OF MARKETING [facility] Start: 08-27-2024 End: 08-27-2024 ambulatory 08/27/2024 9:00 AM EST Treatment [facility] [address] [place] [address] [place] [address] Aurea Sanchez, EXECUTIVE DIRECTOR OF MARKETING [facility] Start: 08-22-2024 End: 08-22-2024 ambulatory [facility] PT Comment on above: Polyneuropathy (Prim benoit Dx); Poor balance; Weakness of both lower extremities Start: 08-07-2024 End: 08-07-2025 Cobalamin (Vitamin B12) [Mass/volume] in Serum or Plasma Vitamin B12 Lab Routine Lymphoma, unspecified body region, unspecified lymphoma type (CMS/HCC) Expected: 08/07/2024 (Approximate), Expires: 08/07/2025 [facility] Comment on above: Expected: 08/07/2024 (Approximate), Expires: 08/07/2025 Start: 08-07-2024 End: 08-07-2025 Copper, serum Copper, serum Lab Routine Lymphoma, unspecified body region, unspecified lymphoma type (CMS/HCC) Expected: 08/07/2024 (Approximate), Expires: 08/07/2025 [facility] Healthcare Comment on above: Expected: 08/07/2024 (Approximate), Expires: 08/07/2025 Start: 08-07-2024 End: 08-07-2025 Hemoglobin A1c/Hemoglobin.total in Blood Hemoglobin A1c Lab Routine Lymphoma, unspecified body region, unspecified lymphoma type (CMS/HCC) Expected: 08/07/2024 (Approximate), Expires: 08/07/2025 [facility] Work Phone: Comment on above: Expected: 08/07/2024 [...] 08-06-2024 Advance Directive Discussion Advance Directive Discussion [facility] Start: 07-10-2024 End: 07-10-2024 Patient encounter procedure [facility] Comment on above: Arrived Start: 07-02-2024 End: 07-02-2024 Patient encounter procedure [facility] Comment on above: Arrived Start: 06-27-2024 End: 06-27-2024 Patient encounter procedure 06/27/2024 9:00 AM EST Office Visit [facility] [address] [place] [address] Lillian Nagel, AUD [address] [place] [address] Arrived [facility] Comment on above: Arrived Start: 06-17-2024 End: 06-17-2025 EMG 2 Extremities EMG 2 Extremities Neurology Routine Weakness Expected: 06/17/2024, Expires: 06/17/2025 [facility] Work Phone: Comment on above: Expected: 06/17/2024 , Expires: 06/17/2025 Start: 06-16-2024 End: 06-16-2024 Patient encounter procedure 06/16/2024 3:00 PM EST [facility] [address] [place] [address] [facility] Start: 06-05-2024 End: 06-05-2024 Patient encounter procedure 06/05/2024 11:00 AM EDT Office Visit [facility] [address] [phone] Shelby Arenas, [address] [place], [place] [id number] [facility] Start: 04-06-2024 Covid-19 Vaccine ( season) Covid-19 Vaccine ( season) [facility] Start: 04-06-2024 Influenza vaccination P [facility] Start: 2021 Fall Risk Screening Fall Risk Screen ing [facility] Start: 07-19-2018 Pneumococcal Vaccine : 50+ (2 of 2 - PCV) Pneumococcal Vaccine: 50+ (2 of 2 - PCV) [facility] Start: 2016 RSV Vaccine (1 - Ris k 60-74 years 1-dose series) RSV Vaccine (1 - Risk 60-74 years 1-dose series) [facility] Start: 2011 Prostate specific an tigen measurement Prostate Cancer Screening Discussion [facility] Start: 10-02-2008 Diabetes Screening Diabetes Screenin g [facility] Start: 2006 Administration of varicella zoster vaccine Zoster (Shingles) Vaccine (1 of 2) [facility] Start: 2006 Shingrix Vaccine (1 of 2) Olivares grix Vaccine (1 of 2) [facility] Start: 2001 Prostate specific an tigen measurement Prostate Cancer Screening Discussion [facility] Start: 2001 Screening for malign ant neoplasm of colon [facility] Start: 1991 Lipid panel Lipid Screening [facility] Start: 1975 Administration of varicella zoster vaccine Zoster (Shingles) Vaccine (1 of 2) [facility] Start: 1975 DTaP,Tdap and Td Vac cines (1 - Tdap) DTaP,Tdap and Td Vaccines (1 - Tdap) [facility] Start: 1975 Shingrix Vaccine (1 of 2) Olivares grix Vaccine (1 of 2) [facility] Start: 1975 Urine microalbumin profile DTaP,Tdap,Td Vaccine (1 - Tdap) [facility] Start: 1974 Anxiety Screening Anxiety Screening [facility] Start: 1974 Depression Screening Depression Scre ening [facility] Start: 1974 Hepatitis C screening Hepatitis C Sc reening [facility] Start: 1968 Depression Screening Depression Scre ening [facility] Start: 1961 Covid-19 Vaccine (#1) Covid-19 Vacci ne (#1) [facility] Auditory function tests Auditory function tests Audiology Routine 05/26/2024 1:35 PM EDT [facility] Work Phone: Payers Date Payer Category Payer Medicare [employer] MEDICARE [id number] 2023 Medicare (Managed Care) [id number] 2023 Private Health Insurance [id number] 1959 [facility] [id number] 1959 Medicare [id number] 1959 Self-pay 1956 Unknown [id number] 2.16.840.1.175810.3.579. 2.593 1956 Unknown [id number] 2.16.840.1.084485.3.579. 2.593 1956 Unknown [id number] 2.16.840.1.585733.3.579. 2.593 1956 Unknown [id number] 2.16.840.1.804599.3.579. 2.593 1956 Unknown [id number] 2.16.840.1.915859.3.579. 2.727 1956 Unknown [id number] 2.16.840.1.415122.3.579. 2.727 1956 Unknown [id number] 2.16.840.1.121712.3.579. 2.727 1956 Unknown [id number] 2.16.840.1.433639.3.579. 2.727 1956 Unknown [id number] 2.16.840.1.053619.3.579. 2.727 1956 Unknown [id number] 2.16.840.1.213239.3.579. 2.727 1956 Unknown [id number] 2.16.840.1.026505.3.579. 2.727 1956 Unknown [id number] 2.16.840.1.889701.3.579. 2.727 1956 Unknown [id number] 2.16.840.1.851282.3.579. 2.1259 1956 Unknown [id number] 2.16.840.1.864186.3.579. 2.9 1956 Unknown [id number] 2.16.840.1.920567.3.579. 2.1258 1956 Unknown [id number] 2.16.840.1.760222.3.579. 2.1258 1956 Unknown [id number] 2.16.840.1.219081.3.579. 2.1258 1956 Unknown [id number] 2.16.840.1.651490.3.579. 2.1258 1956 Unknown [id number] 2.16.840.1.291390.3.579. 2.1258 1956 Unknown [id number] 2.16.840.1.691773.3.579. 2.1258 1956 Unknown [id number] 2.16.840.1.502796.3.579. 2.1258 1956 Unknown [id number] 2.16.840.1.685519.3.579. 2.1259 Private Health Insurance [facility] [id number] Unknown Unknown [place] BC/BS [id number] Unknown [id number] 2.16.840.1.959401.3.579. 2.531 Unknown [id number] 2.16840.1.007170.3.579. 2.531 Unknown [id number] 2.16840.1.495573.3.579. 2.531 Social History Date Type Detail Facility Start: 01-21-2024 End: 09-25-2024 Tobacco smoking status Never smoked tobacco (finding) [facility] Tobacco smoking status Never [facility] Start: 07-29-2024 End: 09-25-2024 Sex Assigned At Male [facility] Start: 1955 Sex Assigned At Male [facility] Tobacco smoking status NHIS Tobacco smoking consumption unknown [facility] Start: 1955 Sex assigned at Not on file [facility] Start: 07-29-2024 End: 09-25-2024 Tobacco use and exposure Smokeless tobacco non-user [facility] Start: 07-31-2024 Alcoholic beverage intake Lifetime non-drinker (finding) [facility] Start: 07-29-2024 End: 09-25-2024 History of Social function [facility] Start: 05-15-2024 Sex Male (finding) [facility] Start: 05-15-2024 Gender identity Identifies as male gender (finding) [facility] Start: 05-15-2024 Sexual orientation Heterosexual (fin ding) [facility] Start: 09-25-2024 End: 11-05-2024 Alcoholic beverage intake Ex-drinker (finding) [facility] NEGATED: Highlighted rowStart: NINF History of tobacco use Passive smoker [facility] Functional Status Date Assessment Result Facility 06-03-2024 Functional Status N/A [facility] [place] 04-30-2024 Functional Status N/A [facility] [place] 01-21-2024 Functional Status N/A [facility] Clinical Notes 01-21-2024 to 04-03-2025 Rg Winston MD - 12/18/2024 11:59 PM EDTTelephone Encounter - Ana Paula Chauhan RN - 12/09/2024 4:03 PM EDTTelephone Encounter - Ana Paula Chauhan RN - 12/09/2024 4:03 PM EDTPatient Instructions Note Date & Type Note Facility 04-03-2025 Note Return phone call fr om patients . Advised of Dr. Schneider recommendations. verbalized understanding and agreed with plan of care [facility] 03-23-2025 Note [facility] Subjective Nabeel Tran is a 69 y.o. year old male patient being seen for 6 month follow up with Echo. Patient states he feels pretty good. Patient denies chest pain, SOB, leg swelling, dizziness/lightheaded, palpitation. Patient complains of fatigue, weight gain. Patient Active Problem List Diagnosis ENE (obstructive [...] Use Topics Alcohol use: Yes Comment: occasional Drug use: Never HPI Nabeel is seen in follow-up. He is a 69 y.o. male. He has prior history of hypertension for [...] placement and then was admitted to the [facility] on 06/13/2024 with atrial fibrillation and [...] showed evidence of atrial fibrillation. Today he is seen in follow-up and he reports that he has been relatively well. His main complaint is fatigue and tiredness but otherwise he denies chest pain, shortness of breath, palpitations and leg edema. Review of Systems Constitutional: Positive for malaise/fatigue and weight gain (22# since Jun 2024). HENT: Positive for hearing loss. Neurological: Positive for weakness. All other systems reviewed and are negative. Objective Visit Vitals BP 122/72 (BP Location: Right arm, Patient Position: Sitting) Pulse 57 Ht 1.88 m (6' 2 ) Wt 89.8 kg (198 lb) SpO2 97% BMI 25.42 kg/m??? Smoking Status Never BSA 2.17 m??? Physical Exam Constitutional: Appearance: He is [...] Outpatient Medications: atorvastatin (Lipitor) 10 mg tablet, TAKE 1 TABLET (more content not included)... [facility] 12-18-2024 Note HNO ID: [id number] Author: RG WINSTON MD Service: ? Author [...] under the care of Dr. Donnelly at [facility] and repeat pet imaging after the [...] result of the inadequacies/shortcomings of said technology/software. [facility] 12-18-2024 History of Present illness Narrative Radiation Oncology - Follow Up Note PATIENT NAME: Nabeel Tran PATIENT Signed by: Rg Winston MD This document has been created with the use of voice recognition technology. It may contain inaccuracies, misspellings, inaccurate syntax or inappropriate word context that are a result of the inadequacies/shortcomings of said technology/software. documented in this encounter [facility] 12-09-2024 Telephone encounter Note I left another message for Nabeel to return my call. Ana Paula Chauhan RN [facility] 12-09-2024 Miscellaneous Notes I left another message for Nabeel to return my call. Ana Paula Chauhan RN I called and left a message for Nabeel to call back for an update post radiation completion. Ana Paula Chauhan RN documented in this encounter [facility] 12-02-2024 Telephone encounter Note I called and left a message for Nabeel to call back for an update post radiation completion. Ana Paula Chauhan RN [facility] 11-17-2024 Note HNO ID: [id number] Author: RG WINSTON MD Service: ? Author Type: Physician Type: Progress Notes Filed: 11/27/2024 04:40 Note Text: [facility] Radiation Oncology Department RADIATION ONCOLOGY - [...] under the care of Dr. Donnelly at [facility] and repeat pet imaging after the [...] AM Electronically Signed cc: Sonia Donnelly MD ([place]) Ailin Green, LATASHA [facility], [place] [address] [facility] 11-14-2024 Note Education (NUTRSA) NABEEL TRAN ([id number]) 1955 M Date Time Provider Department 11/14/24 2:15 PM MARGO SCHUMACHER Reason for Visit: Nutrition Telephone [2013] Cmt: No answer Visit Diagnosis:Hodgkin lymphoma, unspecified Hodgkin lymphoma type, unspecified body region (HCC) [C81.90] Order(s):CONSULT TO ONCOLOGY NUTRITION [[id number]] Order #: [id number]: 1 During your visit today, we recorded [...] Encounter Status:Closed by MARGO SCHUMACHER on 11/17/24 [facility] 11-14-2024 Note HNO ID: [id number] Author: MARGO SCHUMACHER RD Service: ? Author Type: Registered Dietitian Type: Progress Notes Filed: 11/17/2024 08:01 Note Text: Oncology Nutrition Therapy Reassessment I have communicated my name and active licensure. The patient's identity and physical location were verified at the time of this visit. Either the patient or their legal outbound telemarketing representative has been informed of the risks and benefits of -- and alternatives to -- treatment through a remote evaluation and consents to proceed with the evaluation remotely. 1415- called pt for scheduled phone appointment. No answer, left message with return contact information. Signed by: Margo Schumacher RD, JUSTINE MOURA [facility] 11-14-2024 History of Present illness Narrative Oncology Nutrition Therapy Reassessment I have communicated my name and active licensure. The patient's identity and physical location were verified at the time of this visit. Either the patient or their legal outbound telemarketing representative has been informed of the risks and benefits of -- and alternatives to -- treatment through a remote evaluation and consents to proceed with the evaluation remotely. 1415- called pt for scheduled phone appointment. No answer, left message with return contact information. Signed by: Margo Schumacher RD, JUSTINE MUORA documented in this encounter [facility] 11-13-2024 Note HNO ID: [id number] Author: RG WINSTON MD Service: ? Author [...] under the care of Dr. Donnelly at [facility] and repeat pet imaging after the third cycle on 09/08/2024 noted excellent metabolic response (Deauville 3). COURSE: Consolidative AREA TREATED: Right axilla/neck CURRENT DOSE: 14856 cGy in 18 fx PLANNED DOSE: 3600 [...] radiation treatment as planned. Rg Winston MD [facility] 11-13-2024 History of Present illness Narrative Radiation [...] under the care of Dr. Donnelly at [facility] and repeat pet imaging after the third cycle on 09/08/2024 noted excellent metabolic response (Deauville 3). COURSE: Consolidative AREA TREATED: Right axilla/neck CURRENT DOSE: 86173 cGy in 18 fx PLANNED DOSE: 3600 [...] Rg Winston MD documented in this encounter [facility] 11-05-2024 Note HNO ID: [id number] Author: RG WINSTON MD Service: ? Author Type: Physician Type: Progress Notes Filed: 11/18/2024 04:46 Note Text: Radiation Oncology - On Treatment Review (OTR) Note PATIENT NAME: Nabele Tran PATIENT DIAGNOSIS: Mr. 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 He completed a total of 4 cycles of ABVD under the care of Dr. Donnelly at [facility] and repeat pet imaging after the [...] investigate if it persists. Rg Winston MD [facility] 11-05-2024 History of Present illness Narrative Radiation Oncology - On Treatment Review (OTR) Note PATIENT NAME: Nabeel Tran PATIENT Rg Winston MD documented in this encounter [facility] 10-29-2024 Note HNO ID: [id number] Author: RG WINSTON MD Service: ? Author [...] under the care of Dr. Donnelly at [facility] and repeat pet imaging after the [...] radiation treatment as planned. Rg Winston MD [facility] 10-29-2024 History of Present illness Narrative Radiation [...] under the care of Dr. Donnelly at [facility] and repeat pet imaging after the [...] Rg Winston MD documented in this encounter [facility] 10-21-2024 Note HNO ID: [id number] Author: RG WINSTON MD Service: ? Author [...] under the care of Dr. Donnelly at [facility] and repeat pet imaging after the [...] the course of treatment. Rg Winston MD [facility] 10-21-2024 History of Present illness Narrative Radiation [...] under the care of Dr. Donnelly at [facility] and repeat pet imaging after the [...] Rg Winston MD documented in this encounter [facility] 10-07-2024 History of Present illness Narrative NABEEL TRAN [id number] 10/07/2024 [facility] Radiation Oncology Department SIMULATION NOTE DATE OF SIMULATION: 10/07/2024 THERAPIST: Marjan Werner MACHINE: Guidekick DIAGNOSIS: Other classical Hodgkin lymphoma, lymph nodes [...] nursing. Electronically Signed Rg Winston M.D. / SHELIAT 56:24 PM documented in this encounter [facility] 10-07-2024 History of Present illness Narrative NABEEL TRAN W [id number] 10/07/2024 [facility] Department of Radiation Oncology Treatment Planning [...] M.D. 2:58 PM documented in this encounter [facility] 10-07-2024 Note HNO ID: [id number] Author: RG WINSTON MD Service: ? Author Type: Physician Type: Progress Notes Filed: 10/08/2024 18:24 Note Text: NABEEL TRAN [id number] 10/07/2024 [facility] Radiation Oncology Department SIMULATION NOTE DATE OF SIMULATION: 10/07/2024 THERAPIST: Marjan Werner MACHINE: Guidekick DIAGNOSIS: Other classical Hodgkin lymphoma, lymph nodes [...] Rg Winston M.D. / CDT 56:24 PM [facility] 10-07-2024 Note HNO ID: [id number] Author: RG WINSTON MD Service: ? Author Type: Physician Type: Progress Notes Filed: 10/20/2024 12:58 Note Text: NABEEL TRAN [id number] 10/07/2024 [facility] Department of Radiation Oncology Treatment Planning Note For reasons stated in the consult note, Nabeel Chelsea is a candidate for radiation therapy. Based [...] Electronically Signed Rg Winston M.D. 2:58 PM [facility] 10-01-2024 Telephone encounter Note Called and spoke to Nabeel's . She confirmed his appointment times for 10/07/24 with an arrival of 1:00 PM and no special instructions. A nurse visit was added to the schedule for 1:15PM Mady CUEVAS [facility] 10-01-2024 Miscellaneous Notes Called and spoke to [...] Coty Chan, RN documented in this encounter [facility] 10-01-2024 Telephone encounter Note Sim scheduled on 10/07/24 at 1:30pm PSS - Please schedule nurse visit at 1:15 & notify pt of 1:00pm arrival time, no special instructions. Thanks! RT Jaylen(R)(T) [facility] Work Phone: 09-26-[address] [...] peanut butter, etc. documented in this encounter [facility] 09-26-2024 Note Education (NUTRSA) NABEEL TRAN ([id number]) 1955 M Date Time Provider Department 09/26/24 1:30 PM MARGO SCHUMACHER NUTRSA Reason for Visit: Nutrition Telephone [2013] Primary [...] Encounter Status:Closed by MARGO SCHUMACHER on 09/26/24 [facility] 09-26-2024 Telephone encounter Note Rad ed and Nutri scheduled [facility] 09-26-2024 Note HNO ID: [id number] Author: MARGO SCHUMACHER RD Service: ? Author Type: Registered Dietitian Type: Progress Notes Filed: 09/26/2024 13:51 Note Text: Oncology Nutrition Therapy Initial Assessment I have communicated my name and active licensure. The patient's identity and physical location were verified at the time of this visit. Either the patient or their legal outbound telemarketing representative has been informed of the risks [...] dacarbazine) Medical Oncologist: Dr. Donnelly at the [facility] Radiation Oncologist: Dr. Winston PMHx: insulin dependent diabetes per Pt is BE[place]ER but is able to verify his name [...] Dosing Weight: 85.4 kg Estimated kilocalorie needs: 9527-3154 kilocalories determined by 25-30 kcal/kg Estimated protein needs: 85-111 grams determined by 1.0-1.3 g/kg Dosing weight Estimated fluid needs: ~1038-5193 milliliters based on 1 mL per kcal [...] ondansetron orally disin (more content not included)... [facility] 09-26-2024 History of Present illness Narrative Oncology Nutrition Therapy Initial Assessment I have communicated my name and active licensure. The patient's identity and physical location were verified at the time of this visit. Either the patient or their legal outbound telemarketing representative has been informed of the risks [...] dacarbazine) Medical Oncologist: Dr. Donnelly at the [facility] Radiation Oncologist: Dr. Winston PMHx: insulin dependent diabetes per Pt is BEAVER but is able to verify his name [...] Dosing Weight: 85.4 kg Estimated kilocalorie needs: 0650-7628 kilocalories determined by 25-30 kcal/kg Estimated protein needs: 85-111 grams determined by 1.0-1.3 g/kg Dosing weight Estimated fluid needs: ~3373-3879 milliliters based on 1 mL per kcal [...] 15 minutes Signed by: Margo Schumacher RD, CLAMP TRUCK DRIVER, LD documented in this encounter [facility] 09-25-2024 Note HNO ID: [id number] Author: RG WINSTON MD Service: ? Author Type: Physician Type: Progress Notes Filed: 10/21/2024 08:06 Note Text: Radiation Oncology - New Patient/Consult Note PATIENT NAME: Nabeel Tran PATIENT REQUESTING PHYSICIAN: Dr. 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 He was accompanied today by his family. Final recommendations will be communicated back to the requesting physician by way of the shared medical record, or letter to requesting physician via US mail. HISTORY OF PRESENT ILLNESS: Mr. Tran is a 69-year old gentleman [place], [place] with a history of hearing loss [...] atypical lymphoproliferative disorder after second review through [facility]. A second core biopsy was [...] RETROCOCHLEAR ASSESSMENT acoustic neuroma LAMINECTOMY W/O FFD 1/2 VERT SEG LUMBAR Laminectomy, lumbar TONSILLECTOMY PRIMARY/SECONDARY Tonsillectomy FAMILY HISTORY: FAMILY HISTORY Problem Relation Age of Onset Alcohol/Drug Father SOCIAL HISTORY: Mr. Tran is , has 2 children, and lives in the [place], [place] area. 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 He denies tobacco or alcohol use. [...] under the care of Dr. Donnelly at [facility] and repeat pet imaging after the third cycle on 09/08/2024 noted excellent metabolic response (more content not included)... [facility] 09-25-2024 History of Present illness Narrative Images from the original note were not included. Radiation Oncology - New Patient/Consult Note PATIENT NAME: Nabeel Tran PATIENT Signed: Rg Winston MD I spent a total of 60 minutes on the date of the service which included preparing to see the patient, vorw-tq-soaw patient care, and counseling and educating the [...] Coty Chan RN documented in this encounter [facility] 09-25-2024 History of Present illness Narrative Radiation Therapy - Patient Education Note PATIENT NAME: Nabeel Tran PATIENT September 25, 2024 [facility] FACILITY/LOCATION: [facility] READINESS TO LEARN Cognitive Ability: Alert and [...] Coty Chan RN documented in this encounter [facility] 09-25-2024 Note HNO ID: [id number] Author: COTY CHAN RN Service: ? Author Type: Registered Nurse Type: Progress Notes Filed: 09/26/2024 08:31 Note Text: Radiation Therapy - Patient Education Note PATIENT NAME: Nabeel Tran PATIENT September 25, 2024 [facility] FACILITY/LOCATION: [facility] READINESS TO LEARN Cognitive Ability: Alert and [...] Radiation therapist. Signed by: Coty Chan RN [facility] 09-25-2024 Telephone encounter Note Rad Ed today Dietary Eval Schedule Simulation treating R Axilla and Neck with IV Contrast- plan for possible 5 point mask- 20 Fx Sim on 10/06 Consent is Signed *Pt does have onbody glucose monitor-- he and were instructed on need to remove and of need to do finger stick blood sugars* Plan start 10/20 Coty Chan RN [facility] 09-25-2024 Note HNO ID: [id number] Author: COTY CHAN RN Service: ? Author [...] throughout. and pt aware. Coty Chan RN [facility] 09-25-2024 Note Education (MC) NABEEL TRAN ([id number]) 1955 M Date Time Provider Department 09/25/24 [...] Encounter Status:Closed by COTY CHAN on 09/26/24 [facility] 09-23-2024 Telephone encounter Note Called to check [...] w/ referring provider continuation could be suitable. [facility] 09-23-2024 Miscellaneous Notes Called to check on [...] could be suitable. documented in this encounter [facility] 09-19-2024 History of Present illness Narrative AUDIOLOGIC [...] worse than when it was tested at [facility] in May 2024. Otoscopic Evaluation: Right Ear: Unremarkable Left Ear: Unremarkable Immittance Measures: Right Ear: DNT Left Ear: Type A Pure Tone Audiometry: Right Ear: DNT, known profound SNHL for 20+ years, well documented Left Ear: Moderate sloping to severe SNHL Reliability: good Speech Audiometry: SRT/EXECUTIVE DIRECTOR OF MARKETING in good agreement for the left ear [...] his ongoing cancer treatment. Katarina Chew, DIANE-A Senior Windows Systems Administrator documented in this encounter [employer] 09-15-2024 Note [facility] Subjective Nabeel Tran is a [...] placement and then was admitted to the [facility] on 06/13/2024 with atrial fibrillation and [...] Reactions Jardiance [Empagl (more content not included)... [facility] 09-08-2024 Miscellaneous Notes MRI Brain [...] [facility] 09-08-2024 Telephone encounter Note Ok Cooper, doesn't look like we have the MRI brain report. Can you look into it? Thank you [facility] [employer] [facility] 09-01-2024 History of Present illness Narrative [...] to be instructed in home exercise program. Histology Tech Goals: To be met in 10 weeks [...] sign below. Date: documented in this encounter [facility] 08-20-2024 History of Present illness Narrative Physical [...] to be instructed in home exercise program. Long-Term Goals: To be met in 10 weeks [...] sign below. Date: documented in this encounter [facility] 08-15-2024 Miscellaneous Notes Thank you Allison. I [...] 08-13-2024 Miscellaneous Notes Ailin Green's Office - Page called 08/13, patient saw Dr. Ibarra on 07/29/24. Page needs office notes faxed to [phone]. Faxed over office not to number provided. documented in this encounter [facility] 08-13-2024 Telephone encounter Note Ailin Green's Office - Page called 08/13, patient saw Dr. Ibarra on 07/29/24. Page needs office notes faxed to [phone]. [facility] 08-13-2024 Telephone [...] , wrist extensors , wrist flexor , ton container filler strength 4-/5. LUE Strength deltoid , biceps , triceps , wrist extensors , wrist flexor , ton container filler strength 4-/5. RLE Strength illopsoas, quadriceps, tibialis [...] reflex 1+ . Flowers's sign negative. Coordination: Wtyyrx-pl-sfxn testing and rapid alternating movements are normal [...] and return instructions documented in this encounter [facility] 07-29-2024 History of Present illness Narrative Images from the original note were not included. [facility] [address] [facility] [id number] SUBJECTIVE: Patient ID (1955): Nabeel Tran is a 68 y.o. male presents today for Chief Complaint Patient presents with Cerumen Impaction Bilateral Hearing Loss Laterality HPI: Nabeel is presenting today with bilateral profound hearing loss. He had an acoustic neuroma resected at the [facility] about 20 years ago on the [...] HISTORY: Past Medical History: Diagnosis Date Cancer ([facility]) Past Surgical History: Procedure Laterality Date TUNNEL [...] schwannoma resected 20 years ago at the [facility] presenting for left-sided sensorineural hearing loss, ongoing for several months, concurrent with a diagnosis of Hodgkin's lymphoma, currently undergoing treatment outside of [facility], no records available. Recommend imaging, family member [...] this chart were generated using voice recognition When You Wish*5to1 dictation software. Although every effort was made to ensure the accuracy of this automated auto glass worker, some errors in auto glass worker may have occurred. documented in this encounter [facility] 07-10-2024 History of Present illness Narrative Images from the original note were not included. Reason for Appointment: EMG Patient: Nabeel Tran : 1955 EMG Computer: MailTime Referring Physician: Dr. Shelby Arenas EMG: MARIPOSA barrel maker: Gilbert Gaffney RT(R) Office Location: [place] Reason for EMG: c/o numbness/tingling in bilateral feet. Hx of surgery to low back. Pt currently undergoing chemo. Hx of DM. Taking Eliquis. Comments: Procedure was explained to the patient & who expressed understanding. Patient appeared to have tolerated the test well despite some discomfort due to the nature of the test. documented in this encounter [facility] 07-02-2024 History of Present illness Narrative HAP: [...] offered the opportunity to try a different wood strip block floor installer to see if he would perceive success. Patient would prefer to return the instruments. A return was processed in [employer] portal. Informed patient he will be refunded by [employer]. Gave his the [employer] number in the event they needed to discuss the refund process. Patient to let us know if he would like to try [employer] devices again in the future. documented in this encounter [facility] 06-27-2024 History of Present illness Narrative HAP: [...] the trial period. documented in this encounter [facility] 06-19-2024 Note [facility] Subjective Nabeel Tran is a [...] morning., Disp: , (more content not included)... [facility] 06-17-2024 History of Present illness Narrative Images from the original note were not included. Chief complaint: Unsteadiness and generalized weakness and falls Subjective Nabeel Tran, 68 y.o., male Nabeel presents today for a neurological consultation at the request of Ailin Green CNP for unsteady gait, generlized weakness, falls. Pt was seen at [facility] labs, U/A, PET scan, ECG and [...] , wrist extensors , wrist flexor , ton container filler strength 4-/5. LUE Strength deltoid , biceps , triceps , wrist extensors , wrist flexor , ton container filler strength 4-/5. RLE Strength illopsoas, quadriceps, tibialis [...] reflex 2+ . Flowers's sign negative. Coordination: Soqsrl-fz-dcqo testing and rapid alternating movements are normal [...] and return instructions documented in this encounter [facility] 06-16-2024 History of Present illness Narrative Patient [...] The right CROS was coupled to 2S firebrick layer helper with a 10 mm open dome. The left hearing aid was coupled to a Signia custom canal lock earmold. Patient does not use a smart phone. Patient did not want to schedule a follow up due to his health and many appointments. Patient's states she will call for follow up. Cosigned by FRANKIE Spears at 06/17/2024 11:28 AM EST documented in this encounter [facility] 06-03-2024 Note General Surgery Offi ce/Clinic Note [...] nodes of axilla and upper limb) plan mpjurl-u-curs insertion for chemotherapy; informed consent obtained. Ancef [...] Tobacco Use:. House (more content not included)... [facility] Comment on above: Result [...] eligible for hearing aids through his [facility] [employer] Benefit. Recommend a custom mold for the left ear. Ear impression taken of left ear without incident. Pt ordered mid level technology. Order completed in [employer] portal and pt scheduled for HAF 06-16-24 in [place]. documented in this encounter [facility] 02-15-2024 Hospital Discharge instructions Follow Up Care 02/15/2024 09:24:50 With:DONN ELLIS, Moody Aranda, URL Address: [facility] [address] [place] [address]- When: Unknown [facility] 01-21-2024 Note Chief Complaint Referral *LUTs [...] neoplasm of prostat (more content not included)... [facility] Comment on above: Result Comment: Elec tronically Signed By: DONN ELLIS, Moody Rodney\Date and Time Signed: 01/21/24 12:46 EDT\.br\Electronically Co-Signed [...] urethra. Follow these instructions at home: Take lrng-kyj-txpjivk and prescription medicines only as told by [...] provider. Document Revised: 02/08/2022 Document Reviewed: 02/08/2022 [employer] Patient Education 2022 [employer]. Follow Up Care 09/13/2023 09:26:56 With:DONN ELLIS, Moody Aranda, URL Address: [facility] [address], [place] [address]- When: Unknown [facility] Evaluation + Plan note No data available for this section [facility] Evaluation + Plan note Future Appointments Appointment Date:06/09/2024 10:45:00 AM Scheduled Provider:Moody POP MD Location:[facility] Appointment Type:URO Office Visit [facility] Evaluation note No assessment inform ation available [facility] Work Phone: Evaluation note Diagnosis [...] body region (CMS-HCC) documented in this encounter [facility]* Diagnosis Lymphoma, unspecified body region, [...] encounter [facility] Diagnosis Sensorineural hearing loss (SNHL) of both ears- Primary documented in this encounter [facility]* Diagnosis Hodgkin lymphoma, unspecified Hodgkin lymphoma type, unspecified body region (HCC)- Primary [facility] Hodgkin lymphoma, unspecified Hodgkin lymphoma type, unspecified body region (HCC)- Primary [facility] Diagnosis Hodgkin lymphoma, unspecified Hodgkin lymphoma type, unspecified body region (HCC)- Primary documented in this encounter [facility] note* Diagnosis Hodgkin lymphoma, unspecified Hodgkin lymphoma type, unspecified body region (HCC)- Primary documented in this encounter [facility] note* Diagnosis Hodgkin lymphoma, unspecified Hodgkin lymphoma type, unspecified body region (HCC)- Primary documented in this encounter [facility] note* Diagnosis Hodgkin lymphoma, unspecified Hodgkin lymphoma type, unspecified body region (HCC) documented in this encounter [facility] note* Diagnosis Hodgkin lymphoma, unspecified Hodgkin lymphoma type, unspecified body region (HCC)- [facility] No data available for this section [facility] InstructionsNot on filedocumented in this encounter [facility] filed[facility]ed [facility] filedocumented in this encounter [facility]Not on filedocumented in this encounter [facility] No data available for this section [facility] reason for visit Narrative* Consultation (Routine) - Closed Specialty Diagnoses / Procedures Referred By Celine horton Referred To Contact Neurology Diagnoses Unsteadiness on feet Weakness Procedures [place] OFFICE/OUTPATIENT NEW LOW MDM 30 MINUTES Ailin Green MD [address] [place] [address] Phone: tel:[phone] fax: Nabeel New MD [address] [address] Phone: tel: fax: Referral ID Status Reason Start Date Expiration Date V isits Requested Visits Authorized [id number] Closed Consult and Treat 05/16/2024 11/12/2024 1 1 [facility] N[facility]ative* Consultation (Routine) - Pending Review Specialty Diagnoses / Procedures Referred By Celine horton Referred To Contact Physical Therapy Diagnoses Polyneuropathy Procedures IA OFFICE/OUTPATIENT NEW HIGH MDM 60 MINUTES Shelby Arenas DO [address] [place] [address] Phone: tel: fax: [facility] [address] [facility] [address] [place] [address] Phone: tel: fax: Referral ID Status Reason Start Date Expiration Date Visits Requested Visits Authorized [id number] Pending Review Specialty Services Required 08/20/2024 02/03/2025 1 3 [facility] Narrative* Consultation (Routine) - Authorized Specialty Diagnoses / Procedures Referred By Celine t Referred To Contact Physical Therapy Diagnoses Polyneuropathy Procedures [place] OFFICE/OUTPATIENT NEW HIGH MDM 60 MINUTES Shelby Arenas, [address] [place] [address] Phone: tel: fax: [facility] [address] [address] Phone: tel: fax: Referral ID Status Reason Start Date Expiration Date Visits Requested Visits Authorized [id number] Authorized Specialty Services Required 08/20/2024 02/03/2025 6 [...] section and content) DATE CREATED AUTHOR 01/29/2018 [facility] DATE CREATED AUTHOR AUTHOR'S ORGANIZ ATION 09/01/2021 [facility] DATE CREATED AUTHOR AUTHOR'S ORGANIZ ATION 06/08/2024 [facility] DATE CREATED AUTHOR AUTHOR'S ORGANIZ ATION 06/11/2024 [facility] DATE CREATED AUTHOR AUTHOR'S ORGANIZ ATION 09/02/2024 [facility] DATE CREATED AUTHOR AUTHOR'S ORGANIZ ATION 01/14/2025 [facility] DATE CREATED AUTHOR AUTHOR'S ORGANIZ ATION 04/04/2025 [facility] Patient Care team informatio n (unrecognized [...] Member Role Status Dates Jassi Alegria MD [facility] Attending Provider Active Start: April 23, 2024 End: April 23, 2024 Team Status: Inactive Member Role Status Dates Sonia Donnelly MD Attending Provider Active St art: May 29, 2024 End: May 29, 2024 MEHRDAD Bardales Primary Care Provider Active Start: May 29, 2024 End: May 29, 2024 Team Status: Active Member Role Status Dates González Moon DO Primary Care Provider Active [employer] Relationship Specialty Start Date End Date Ailin Green MD [address] [place] [address] Referring Physician Family Medicine 05/16/24 Ailin Green MD [address] [place], [place] [phone] Referring Physician Family Medicine 05/26/24 [employer]eller Relationship Specialty Start Date End Date Ailin Green MD [address] [place] [address] Referring Physician Family Medicine 05/16/24 Ailin Green MD [address] [place] [address] Referring Physician Family Medicine 05/26/24 [employer]eller Relationship Specialty Start Date End Date Jah Damian MD [address] [place] [address] PCP - General Family Medicine 06/16/24 Ailin Green MD [address] [place] [address] Referring Physician Family Medicine 05/16/24 Ailin Green MD [address] [place] [phone] Referring Physician Family Medicine 05/26/24 [employer]eller Relationship Specialty Start Date End Date Jah Damian MD [address] [place] [address] PCP - General Family Medicine 06/16/24 Ailin Green MD [address] [place] [address] Referring Physician Family Medicine 05/16/24 Ailin Green MD [address] [place] [address] Referring Physician Family Medicine 05/26/24 [employer]ch [employer] Feller Relationship Specialty Start Date End Date Jah Damian MD [address] [place] [address] PCP - General Family Medicine 06/16/24 Ailin Green MD [address] [place] [address] Referring Physician Family Medicine 05/16/24 [place] [address] [place] [address] Referring Physician Family Medicine 05/26/24 [employer]ch [employer] Feller Relationship Specialty Start Date End Date Jah Damian MD [address] [place] [address] PCP - General Family Medicine 06/16/24 [place] [address] [place] [address] Referring Physician Family Medicine 05/16/24 [place] [address] [place], [place] [phone] Referring Physician Family Medicine 05/26/24 [employer]ch [employer] Feller Relationship Specialty Start Date End Date Jah Damian MD [address] [place] [phone] PCP - General Family Medicine 06/16/24 Ailin Green MD [address] [place] [address] Referring Physician Family Medicine 05/16/24 Ailin Green MD [address] [place] [address] Referring Physician Family Medicine 05/26/24 [employer]ch [employer]eller Relationship Specialty Start Date End Date Jah Damian MD [address] [place] [address] PCP - General Family Medicine 06/16/24 [place] [address] [place] [address] Referring Physician Family Medicine 05/16/24 Ailin Green MD [address] [place] [address] Referring Physician Family Medicine 05/26/24 [employer]eller Relationship Specialty [place] [address] [place] [phone] PCP - General Family Medicine 06/16/24 Ailin Green MD [address] [place] [address] Referring Physician Family Medicine 05/16/24 Ailin Green MD [address] [place], [place] [phone] Referring Physician Family Medicine 05/26/24 [employer]ch [employer] Feller Relationship Specialty Start Date End Date Ailin Green MD [address] [place] [address] Referring Physician Family Medicine 05/16/24 Ailin Green MD [address] [place] [address] Referring Physician Family Medicine 05/26/24 Shelby Arenas DO [address] [address] Referring Physician Neurology 08/07/24 [employer]eller Relationship Specialty Start Date End Date Ailin Green MD [address] [place] [address] Referring Physician Family Medicine 05/16/24 Ailin Green MD [address] [place] [address] Referring Physician Family Medicine 05/26/24 Shelby Arenas DO [address] [place] [phone] Referring Physician Neurology 08/07/24 [employer]eller Relationship Specialty Start Date End Date Ailin Green MD [address] [place] [address] Referring Physician Family Medicine 05/16/24 Ailin Green MD [address] [place], [place] [phone] Referring Physician Family Medicine 05/26/24 Shelby Arenas DO [address] [place] [phone] Referring Physician Neurology 08/07/24 [employer]ch L[employer] Feller Relationship Specialty Start Date End Date Ailin Green MD [address] [place], [place] [phone] Referring Physician Family Medicine 05/16/24 [place] [address] [place] [address] Referring Physician Family Medicine 05/26/24 Shelby Arenas DO [address] [address] Referring Physician Neurology 08/07/24 [employer]ch Lining Feller Relationship Specialty Start Date End Date Ailin Green MD [address] [place] [address] Referring Physician Family Medicine 05/16/24 Ailin Green MD [address] [place] [address] Referring Physician Family Medicine 05/26/24 Shelby Arenas DO [address] [address] Referring Physician Neurology 08/07/24 [employer]ch [employer] Feller Relationship Specialty [place] [address] [place] [address] Referring Physician Family Medicine 05/16/24 [place] [address] [place] [address] Referring Physician Family Medicine 05/26/24 Shelby Arenas DO [address] [address] Referring Physician Neurology 08/07/24 [employer]ch Lining Feller Relationship Specialty [place] [address] [place] [address] Referring Physician Family Medicine 05/16/24 Ailin Green MD [address] [place] [address] Referring Physician Family Medicine 05/26/24 Shelby Arenas DO [address] [address] Referring Physician Neurology 08/07/24 [employer]ch L[employer] Feller Relationship Specialty [place] [address] [place] [address] Referring Physician Family Medicine 05/16/24 Ailin Green MD [address] [place] [address] Referring Physician Family Medicine 05/26/24 Shelby Arenas DO [address] [address] Referring Physician Neurology 08/07/24 [employer]ch L[employer] Feller Relationship Specialty Start Date End Date Ailin Green MD [address] [place] [address] Referring Physician Family Medicine 05/16/24 Ailin Green MD [address] [place] [address] Referring Physician Family Medicine 05/26/24 Shelby Arenas DO [address] [address] Referring Physician Neurology 08/07/24 [employer]eller Relationship Specialty Start Date End Date Ailin Green MD [address] [place] [address] Referring Physician Family Medicine 05/16/24 Ailin Green MD [address] [place] [address] Referring Physician Family Medicine 05/26/24 Shelby Arenas DO [address] [address] Referring Physician Neurology 08/07/24 [employer]eller Relationship Specialty Start Date End Date Margo Schumacher RD [address] [place] [address] Registered Dietitian Nutrition 09/26/24 [employer]ch [employer] Feller Relationship Specialty Start Date End Date Margo Schumacher RD [address] [place] [address] Registered Dietitian Nutrition 09/26/24 [employer]ch [employer] Feller Relationship Specialty Start Date End Date Margo Schumacher RD [address] [place] [address] Registered Dietitian Nutrition 09/26/24 [employer]ch Lining Feller Relationship Specialty Start Date End Date Margo Schumacher RD [address] [place] [address] Registered Dietitian Nutrition 09/26/24 [employer]ch Lining Feller Relationship Specialty Start Date End Date Margo Schumacher RD [address] [place] [address] Registered Dietitian Nutrition 09/26/24 [employer]ch Lining Feller Relationship Specialty Start Date End Date Margo Schumacher RD [address] [place] [address] Registered Dietitian Nutrition 09/26/24 [employer]ch [employer] Feller Relationship Specialty Start Date End Date Margo Schumacher RD [address] [place] [address] Registered Dietitian Nutrition 09/26/24 [employer]ch [employer]ining Feller Relationship Specialty Start Date End Date Margo Schumacher RD [address] [place] [address] Registered Dietitian Nutrition 09/26/24 [employer]ch [employer]ining Feller Relationship Specialty Start Date End Date Margo Schumacher RD [address] [place] [address] Registered Dietitian Nutrition 09/26/24 Blind[employer]ch Lining Feller Relationship Specialty Start Date End Date Ailin Green, ACTUARIAL ANALYST [address] [place] [address] PCP - General Internal Medicine 12/18/[address] [place] [address] [place] [address] Registered Dietitian Nutrition 09/26/24 Goals (unrecognized section [...] or prosecute any alcohol or drug abuse patient.[facility] the event this information is protected by the Federal Confidentiality of Alcohol and Drug Abuse Patient Records regulations: The Federal rules restrict any use of the information to criminally investigate or prosecute any alcohol or drug abuse patient.[facility] the event this information is protected by the Federal Confidentiality of Alcohol and Drug Abuse Patient Records regulations: The Federal rules restrict any use of the information to criminally investigate or prosecute any alcohol or drug abuse patient.[facility] the event this information is protected by the Federal Confidentiality of Alcohol and Drug Abuse Patient Records regulations: The Federal rules restrict any use of the information to criminally investigate or prosecute any alcohol or drug abuse patient.[facility] the event this information is protected by the Federal Confidentiality of Alcohol and Drug Abuse Patient Records regulations: The Federal rules restrict any use of the information to criminally investigate or prosecute any alcohol or drug abuse patient.[facility] the event this information is protected by the Federal Confidentiality of Alcohol and Drug Abuse Patient Records regulations: The Federal rules restrict any use of the information to criminally investigate or prosecute any alcohol or drug abuse patient.[facility] the event this information is protected by the Federal Confidentiality of Alcohol and Drug Abuse Patient Records regulations: The Federal rules restrict any use of the information to criminally investigate or prosecute any alcohol or drug abuse patient.[facility] the event this information is protected by the Federal Confidentiality of Alcohol and Drug Abuse Patient Records regulations: The Federal rules restrict any use of the information to criminally investigate or prosecute any alcohol or drug abuse patient.[facility] the event this information is protected by the Federal Confidentiality of Alcohol and Drug Abuse Patient Records regulations: The Federal rules restrict any use of the information to criminally investigate or prosecute any alcohol or drug abuse patient.[facility] the event this information is protected by the Federal Confidentiality of Alcohol and Drug Abuse Patient Records regulations: The Federal rules restrict any use of the information to criminally investigate or prosecute any alcohol or drug abuse patient.[facility] the event this information is protected by the Federal Confidentiality of Alcohol and Drug Abuse Patient Records regulations: The Federal rules restrict any use of the information to criminally investigate or prosecute any alcohol or drug abuse patient.[facility] the event this information is protected by the Federal Confidentiality of Alcohol and Drug Abuse Patient Records regulations: The Federal rules restrict any use of the information to criminally investigate or prosecute any alcohol or drug abuse patient.[facility] the event this information is protected by the Federal Confidentiality of Alcohol and Drug Abuse Patient Records regulations: The Federal rules restrict any use of the information to criminally investigate or prosecute any alcohol or drug abuse patient.[facility] the event this information is protected by the Federal Confidentiality of Alcohol and Drug Abuse Patient Records regulations: The Federal rules restrict any use of the information to criminally investigate or prosecute any alcohol or drug abuse patient.[facility]In the event this information is protected by the Federal Confidentiality of Alcohol and Drug Abuse Patient Records regulations: The Federal rules restrict any use of the information to criminally investigate or prosecute any alcohol or drug abuse patient.[facility] FOR RECORDS PERTAINING TO PATIENTS WHO [...] BASED ON THE PRIMARY CLINICAL RECORDS. [facility] [facility]. provides no warranty or guarantee of the accuracy or completeness of information in this document.
--- NOTE | 2025-04-22 10:17 | CT_ITS ---
The [address] [address] Patient Name: NABEEL TRAN MRN: [id number] date: 1955 Sex: M Assigned Patient Location: CT Current Patient Location: CT Accession/Order Number: [id number] Exam Date: 04/22/2025 11:00 Report Date: 04/22/2025 12:09 At the request of: JOAN HURLEY MD Procedure: CT soft tissue neck w con CT SOFT TISSUE NECK WITH CONTRAST COMPARISON: 02/20/2025 CLINICAL DATA: Follow-up Hodgkin's lymphoma. Spiral images were obtained through the neck following 100 mL of Omnipaque 300. This CT exam was performed using one or more following dose reduction techniques: Automated exposure control, adjustment of the mA and/or kV according to patient size, or use of iterative reconstruction technique. No thyroid nodularity is identified. The submandibular and parotid glands appear symmetric. The epiglottis and vocal cords are within normal limits. There is no enlargement of the adenoids or tonsils. No prevertebral soft tissue swelling is seen. There are a few small stable nonpathologic cervical lymph nodes. There are prepontine calcifications that were also seen previously and might be vascular. No developing lymphadenopathy is noted. There is reversal of the normal cervical lordosis and slight levoscoliotic curvature. Degenerative changes are again visualized, similar to the comparison. The imaged paranasal sinuses and left mastoid air cells are clear. There is prior mastoidectomy with opacification of the remaining mastoid air cells on the right. Limited imaging through the upper chest shows increasing infiltrative changes at the right upper lobe. CT/CT soft tissue neck w con IMPRESSION: NO PATHOLOGIC CERVICAL LYMPHADENOPATHY. PRIOR RIGHT MASTOIDECTOMY WITH OPACIFICATION OF REMAINING MASTOID AIR CELLS. WORSENING RIGHT UPPER LOBE PARENCHYMAL CHANGES. Impression dictated by: Evelyn Guidry M.D. 04/22/2025 12:09 PM Dictation Location: [place] [address] Electronically authenticated by: [id number] Y Date: 04/22/2025 12:09
[2025-04-22 10:21] LABS: Blood Urea Nitrogen 25.0 mg/dL (7.0-18.0); Estimated GFR (African America >60 (>=60 mL/min/1.73m^2); Estimated GFR (Non-African Ame 55 (>=60 mL/min/1.73m^2)
--- NOTE | 2025-04-22 11:14 | PC.NURSE ---
1030 Pt confirmed to have power port . Swabbed site with chloraprep x 30 seconds. Accessed port with Cassidy needle and good blood return noted. Flushes easily with 10 cc NS. Secured with Tegaderm. 1110 Pt given IV contrast during CT and tolerated well. Port flushed with 10 ml NS and then Heparin 5 ml. Cassidy needle removed intact.
[2025-04-22] MEDS: HEPARIN SODIUM (PORCINE) PF LOCK FLUSH 500 UNIT/5 ML SYRINGE IV (11:15)
== END 2025-04-22 10:02 | disposition home or self-care (01) ==
LOC: LAB 10:03
PROVIDERS: PCP Nurse Practitioner Family; Visit Provider Internal Medicine Hematology & Oncology
DX: C85.11 Unspecified B-cell lymphoma, lymph nodes of head, face, and neck (principal); R74.01 Elevation of levels of liver transaminase levels; D50.9 Iron deficiency anemia, unspecified; D64.9 Anemia, unspecified; C81.18 Nodular sclerosis Hodgkin lymphoma, lymph nodes of multiple sites; R11.2 Nausea with vomiting, unspecified; D70.1 Agranulocytosis secondary to cancer chemotherapy; Z79.899 Other long term (current) drug therapy
CPT/HCPCS: 36415; 70491; 82565; 84520; J1642; Q9967

== ENCOUNTER 2025-04-23 10:10 | Outpatient (OUT) | payer MEDICARE, SELFPAY ==
--- OUTSIDE RECORDS SUMMARY | 2025-04-23 10:19 | XMS_ITS | CCD ---
Author Organization [facility] Care Team Providers Care Varnish Blender Name Role Phone PHYSICIAN, DEFAULT Unavailable Unavailable [...] Physician DO González Moon Primary Care Provider MD Nabeel Strange Attending Provider MD Jassi Alegria Attending Provider [phone] Peter ELLIS Ailin Unavailable Peter ELLIS Ailin Unavailable MD Sonia Donnelly Attending Provider MEHRDAD Green Primary Care Provider Jassi Alegria Attending Unavailable Jassi Alegria Admitting Unavailable González Moon Primary Care Unavailable Nabeel Strnage Admitting Unavailable Nabeel Strange Attending Unavailable Ailin [...] Unavailable Jah Damian MD Primary Care Provider [phone] Unavailable Primary Care Provider Unavailbraeden Arenas DO, Christopher Unavailable [phone] CLEVE QUINN Attending Unavailable DEEPA, CHRISTOPHER Referring [...] SONIA Referring Unavailable CATRACHITO, RG Referring Unavailable ACTRACHITO, RG Referring Unavailable CATRACHITO, RG Attending Unavailable [...] Propensity to adverse reactions (disorder) 7 [facility] Repository (1 source) Unable to Assess Drug allergy (disorder) 4 [facility] Repository (1 source) No Known Medication Allergies; Translations: [No Known Medication Allergies] Propensity to adverse reactions (disorder) [facility] Repository (15 sources) no latex allergy [Other] Propensity to adverse reactions [facility] (1 source) OTHER; Translations: [OTHER] Propensity to adverse reactions (disorder) 5 [facility] Repository (1 source) empagliflozin; Translations: [EMPAGLIFLOZIN] Drug Allergy 4 [facility] Repository Medications Current Medications Medication Drug Class(es) [...] Active Start: 06-15-2024 take 1 capsule by [facility] every twenty-four hours in the [...] 90 cap(s), Refills(s) 3, Pharmacy: [facility] Delivery, 187, cm, 01/21/24 11:48:00 [...] completed, # 2 tab(s), Refills(s) 0, Pharmacy: [email or web address], 187, cm, 01/21/24 11:48:00 EDT, Height/Length [...] (current) use of oral hypoglycemic drugs; Translations: [NURSING HOME (CURRENT) USE OF ORAL 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 DRUGS] Onset: 2017 Unclassified (4 sources) Patient encounter status 01-21-2024 Viral infection (1 source) COVID-19; Translations: [COVID-19] Onset: 12-08-2020 Past or Other Problems Problem Classification Problem Date Documented Da te Episodic/Chronic Other aftercare (1 source) care home (current) use of aspirin; Translations: [NURSING HOME (CURRENT) USE OF ASPIRIN] Onset: 2017 Episodic [...] LM asking that patient return my call. [facility] Office Visiton 03-23-2025 Follow-up visit [id number] Allen Tran 1955 M Date Provider Department Center 03/23/2025 JEROD BANKS ELIAS Rosario Family History Problem Relation Age of Onset Coronary artery disease Mother Family Status - Relation Status Age at Mother Father Level of Service:53272 [place] OFFICE/OUTPATIENT ESTABLISHED MOD MDM 30 MIN [facility] Orders Onlyon 02-23-2025 Orders Only [id number] Allen Tran 1955 M Date Provider Department Center 02/23/2025 [id number], HISTORICAL [facility] Family History Problem Relation Age of Onset Coronary artery disease Mother Family Status - Relation Status Age at Mother Normal [facility] CNOVon 12-18-2024 CNOV Office Visit (RADTSA ) NABEEL TRAN ([id number]) 1955 M Date Time Provider Department 12/18/24 [...] under the care of Dr. Donnelly at [facility] and repeat pet imaging after the [...] of said technology/software. Referring Provider: RG WINSTON [[id number]] Allergies As of Date: 12/18/2024 Noted Allergy [...] for Encounter Date Provider Department Center 12/18/2024 [id number] WINSTON Forrest Buckley Encounter Status:Closed by RG WINSTON on 12/29/24 Normal [facility] CNPNon 12-02-2024 CNPN Telephone (IntervolveA) NABEEL TRAN ([id number]) 1955 M Date Time Provider Department 12/02/24 [...] by ANA PAULA CHAUHAN on 12/11/24 Normal [facility] CNOVon 11-13-2024 CNOV Office Visit (RADTSA ) NABEEL TRAN ([id number]) 1955 M Date Time Provider Department 11/13/24 [...] under the care of Dr. Donnelly at [facility] and repeat pet imaging after the third cycle on 09/08/2024 noted excellent metabolic response (Deauville 3). COURSE: Consolidative AREA TREATED: Right axilla/neck CURRENT DOSE: 71543 cGy in 18 fx PLANNED DOSE: 3600 [...] Rg Winston MD Referring Provider: RG WINSTON [[id number]] Allergies As of Date: 11/13/2024 Noted Allergy [...] Encounter Status:Closed by RG WINSTON on 11/24/24 [facility] CNOVon 11-05-2024 CNOV Office Visit (RADTSA ) NABEEL TRAN ([id number]) 1955 M Date Time Provider Department 11/05/24 [...] under the care of Dr. Donnelly at [facility] and repeat pet imaging after the [...] Encounter Status:Closed by RG WINSTON on 11/17/24 [facility] CNOVon 10-29-2024 CNOV Office Visit (RADTSA ) NABEEL TRAN ([id number]) 1955 M Date Time Provider Department 10/29/24 [...] under the care of Dr. Donnelly at [facility] and repeat pet imaging after the [...] Encounter Status:Closed by RG WINSTON on 11/10/24 [facility] CNOVon 10-21-2024 CNOV Office Visit (RADTSA ) CHELSEANABEEL Hector ([id number]) 1955 M Date Time Provider Department 10/21/24 [...] under the care of Dr. Donnelly at [facility] and repeat pet imaging after the [...] Encounter Status:Closed by RG WINSTON on 11/03/24 [facility]SE Nurse Visit (RADTSA) NABEEL TRAN ([id number]) 1955 M Date Time Provider Department 10/07/24 [...] Status:Closed by ANA PAULA CHAUHAN on 10/08/24 [facility] CNOVon 09-25-2024 CNOV Office Visit (RADTSA ) NABEEL TRAN ([id number]) 1955 M Date Time Provider Department 09/25/24 [...] the Department of Radiation Oncology at the [facility] with Rg Winston MD. He was accompanied today by his family. Final recommendations will be communicated back to the requesting physician by way of the shared medical record, or letter to requesting physician via US mail. HISTORY OF PRESENT ILLNESS: Mr. Tran is a 69-year old gentleman [place], [place] with a history of hearing loss [...] atypical lymphoproliferative disorder after second review through [facility]. A second core biopsy was obtained [...] has 2 children, and lives in the [facility]. 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 He denies tobacco or alcohol use. RADIATION [...] BMI 23 (more content not included)... Normal [facility] CNPNon 09-25-2024 CNPN Telephone (Transcatheter TechnologiesTSA) NABEEL TRAN ([id number]) 1955 M Date Time Provider Department 09/25/24 [...] 1:00pm arrival time, no special instructions. Thanks! Kahtleen Werner RT(R)(Lakshmi) Mady Durbin 10/01/2024 8:56 AM [...] Status:Closed by MARJAN AVILA on 10/01/24 Normal [facility] Office Visiton 09-15-2024 Follow-up visit [id number] Allen Tran 1955 M Date Provider Department Center 09/15/2024 367-JEROD STATON ELIAS [facility] Family History Problem Relation Age of Onset Coronary artery disease Mother Family Status - Relation Status Age at Mother Level of Service:73601 [place] OFFICE/OUTPATIENT ESTABLISHED MOD MDM 30 MIN Normal [facility] MLR HEMOGLOBIN A1Con 025 Glucose [Mass/Vol] 126 mg/dL [facility] HbA1c (Bld) [Mass fraction] 6 % 4.5 - 6.2 % [facility] Comment on above: ADA RECOMMENDED LIMI T 4.0 - 6.0 ADA THERAPEUTIC TARGET < 7.0 ACTION SUGGESTED > 7.0 [facility] EMG 2 Extremitieson 07-10-20 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, motor predominant and severe Can not exclude radiculopathy [facility] NVC 9-10 Nerveson 07-10-2024 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, motor predominant and severe Can not exclude radiculopathy [facility] Office Visiton 06-19-2024 Follow-up visit [id number] Allen Tran W 1955 M Date Provider Department Center 06/19/2024 FABIOLA SOLOMON ELIAS Rosario Family History Problem Relation Age of Onset Coronary artery disease Mother Family Status - Relation Status Age at Mother Level of Service:57541 [place] OFFICE/OUTPATIENT ESTABLISHED LOW MDM 20 MIN Normal [facility] Orders Onlyon 06-19-2024 Orders Only [id number] Allen Tran carol W 1955 M Date Provider Department Center 06/19/2024 JOSE ALFREDO GARCIA ELIAS [facility] Family History Problem Relation Age of Onset Coronary artery disease Mother Family Status - Relation Status Age at Mother Normal [facility] ISTAT XRay CREon 05-29-2024 ISTAT GFR > 60.0 Normal [facility] Comment on above: Result Comment: PERF ORMED BY: [place] [address] PATHOLOGIST SAWMILL HAND KASSI WATERS M.D. Performed By: #### I SCRE #### [address] MR head/brain wo/w conon MR head/brain wo/w con [facility] [place] [address] MRI Report Signed Patient: Nabeel Tran MR#: [id number] : 1955 Acct:[id number] Age/Sex: 68 / M ADM Date: 05/29/24 Loc: MR Room: Type: [facility] Attending Dr: Sonia Donnelly MD Copies [...] Alexis Patel M.D.05/29/2024 1:38 PM Dictation Location: [place] [address] Transcribed By: ANDRIA 05/29/24 1338 Dictated By: Alexis Patel II, MD 05/29/24 1325 Signed By: 05/29/24 1338 Normal [facility] No Panel InformationOrdered By: Sonia Donnelly on 05-29-2024 Bedside Estimated GFR (eGFR) > 60.0 [facility] Whole blood creatinine measu rementOrdered By: Sonia Donnelly on 05-29-2024 Creatinine [Mass/Vol] 0.8 mg/dL Normal 0.6-1.3 [facility] Comment on above: ER/ESD physician is notified/shown all ISTAT results.Critical values may be confirmed by laboratory testing ifdeemed necessary by ER attending doctor. Result Comment: ER/E SD physician is notified/shown all ISTAT results. Critical values may be confirmed by laboratory testing if deemed necessary by ER attending doctor. Performed By: #### I SCRE #### [address] XR pre/post mri xrayon 05-29 XR pre/post mri xray [facility] Main [place] [address] [place] [address] MRI Report Signed Patient: Nabeel Tran MR#: [id number] : 1955 Acct:[id number] Age/Sex: 68 / M ADM Date: 05/29/24 Loc: Room: Type: [facility] Attending Dr: Sonia Donnelly MD Copies to: Sonia Donnelly MD Ordering Provider: Sonia Donnelly MD Date of Service: 05/29/24 MR/MR cervical spine wo/w con: C85.90, C85.94, C85.11 ([id number]) XR/XR pre/post mri xray: C85.90, C85.94, C85.11 [...] Alexis Patel M.D.05/29/2024 1:00 PM Dictation Location: [place] [address] Transcribed By: [facility] 05/29/24 1300 Dictated By: Alexis Patel II, MD 05/29/24 1254 Signed By: 05/29/24 1300 Normal [facility] SURGICAL PATHOLOGY REFERENCE LAB CONSULTon 05-05-2024 ADDENDUM 1: Normal [facility] Comment on above: Order Comment: Speci men Type: FORMALIN-FIXED PARAFFIN-EMBEDDED TISSUE SPECIMENOrdering Facility: [facility] Address: [place] [address] Result Comment: Repe at MUM1 immunostain does in fact stain the focal large atypical cells. No change in final diagnosis. ABO 05/14/2024 Addendum electronically signed by Lory Vick MD, PhD on 05/14/2024 at 4:02 PM Performed By: #### L [id number] ####[facility] [id number] [place] [address] [place] CASE REPORT Normal [facility] Comment on above: Order Comment: Speci men Type: FORMALIN-FIXED PARAFFIN-EMBEDDED TISSUE SPECIMENOrdering Facility: [facility] Address: [place] [address] Result Comment: Surg ical Pathology Report Case: [id number] Authorizing Provider: Kin Lauren MD Collected: 05/05/2024 04:52 PM Ordering Location: [facility] Received: 05/05/2024 04:52 PM [facility] Pathologist: Lory Vick MD, PhD Specimen: Slide(s), 18 SLIDES [id number] Performed By: #### L [id number] ####[facility] [id number] [place] [id number] [place] CLINICAL HISTORY CONSULT REQUESTED Normal [facility] Comment on above: Order Comment: Speci men Type: FORMALIN-FIXED PARAFFIN-EMBEDDED TISSUE SPECIMENOrdering Facility: [facility] Address: [place] [address] Performed By: #### L [id number] ####[facility] [id number] [address] STATES [place] DIAGNOSIS COMMENT Normal [facility] Comment on above: Order Comment: Speci men Type: FORMALIN-FIXED PARAFFIN-EMBEDDED TISSUE SPECIMENOrdering Facility: [facility] Address: [place] [address] Result Comment: Per the provided report, flow cytometric analysis detected no significant immunophenotypic abnormalities on the lymphocytes, with a CD4:CD8 ratio 4.4. Overall, the morphologic and immunophenotypic findings described below are consistent with an atypical lymphoid proliferation predominantly composed of reactive changes with a single focus of large XL32-wjxirzvc lymphocytes. Morphologically and immunophenotypically, these large atypical cells are compatible with Hodgkin and Neto-Jude cells/variants. However, this tiny, focal involvement is unusual. If the patient has additional lymphadenopathy, biopsy of another site is recommended to definitely diagnose involvement by a Hodgkin lymphoma. Correlation with imaging studies is strongly recommended. This case was also reviewed by Dr. Mare Pierce ([facility] hematopathology section), who agrees with the above interpretation and final diagnosis. Thank you for sending this case in consultation. Please contact the Hematopathology Consult Service at [phone] for any questions or if additional follow-up information becomes available. Laboratory Developed Test (LDT) Disclaimer: Performance characteristics of immunohistochemical, immunofluorescent and chromogenic in-situ hybridization tests have been determined by the performing laboratory within [facility]???s Tre Luna [facility] Pathology and Laboratory Medicine Department ([facility], [facility], [facility], [facility], [facility], [facility], or [facility]) in a manner consistent with CLIA requirements. One or more of these tests have not been cleared or approved by the FDA. [facility] is regulated under CLIA as qualified to perform high-complexity testing. These tests are used for clinical purposes. They should not be regarded as investigational or for research. Positive and negative controls stain appropriately. Performed By: #### L [id number] ####[facility] [id number] [address] OF [place] FINAL DIAGNOSIS Normal [facility] Comment on above: Order Comment: Speci men Type: FORMALIN-FIXED PARAFFIN-EMBEDDED TISSUE SPECIMENOrdering Facility: [facility] Address: [address] [place] [id number] Result Comment: Outs roberto slides ([id number]; 04/23/2024) from [facility], [place], [place]. A. Lymph node, right axillary, excisional biopsy: - Predominantly reactive lymphoid proliferation with a single focus of atypical MZ29-uttdmwps lymphocytes. - See comment. ABO 05/13/2024 Performed By: #### L [id number] ####[facility] [id number] [address] [place] FINAL PERFORMING LAB Normal [facility] Comment on above: Order Comment: Speci men Type: FORMALIN-FIXED PARAFFIN-EMBEDDED TISSUE SPECIMENOrdering Facility: [facility] Address: [address] [place], [place] [address] [id number] Result Comment: Diag nostic interpretation performed at: [facility], [address] [place] [address] CLIA# [id number] Academic Associate: Ramiro Degroot MD Performed By: #### L [id number] ####[facility] [id number] [address] STATES [facility] MICROSCOPIC DESCRIPTION Normal [facility] Comment on above: Order Comment: Speci men Type: FORMALIN-FIXED PARAFFIN-EMBEDDED TISSUE SPECIMENOrdering Facility: [facility] Address: [facility] [address] [place] [id number] Result Comment: H&E- stained sections demonstrate fibroadipose [...] in situ hybridization stains were performed at [facility] on the requested block A2. The [...] atypical large lymphocytes. Performed By: #### L [id number] ####[facility] [id number] [place] [address] [place] Ambulatory Visit Summaryon 0 04-30-2024 Ambulatory Visit Summary Ambulatory Visit Summary NABEEL TARN :1955 Visit Date:04/30/2024 Ambulatory Visit Instructions Your [...] ELLIS, Moody Aranda Where: [facility] [address] [address]- Medications What How Much When Instructions Unchanged [...] choosing us for your care. Annabelle Krishnamurthy [facility] General Surgery Office/Clini c Noteon 04-30-2024 General Surgery Office/Clinic Note General Surgery Office/Clinic Note Chief Complaint post operative follow up HPI Staff 7 day post operative follow up post incisional biopsy right axilla adenopathy completed while inpatient at [facility]. Denies soreness, bleeding or drainage. History [...] 04/30/2024 Family History Heart disease: Mother. Normal [facility] Comment on above: Result Comment: Elec tronically Signed By: AIRAM ELLIS, Jassi Rodney\Date and Time Signed: 04/30/24 14:51 EDT Robert 04-23-2024 L Specimen: [id number] R eceived: 04/23/24-1322 Status: SOUT Re Num: [id number] Spec Type: Surgical Subm Dr: Jassi Alegria MD FACS Tissues: A Lymph Node - Biopsy (Needle or Incisional) (R AXILLARY LYMPH NODE BX) Procedures: CD45/2, HE/4, Gross/Micro L4, AE1-AE3, BCL-2, BCL-6, CD10, CD20, CD23, CD3, CD30/2, CD5, PAX5/2 Age/ Patient Sex Location Account Attending Physician ChelseaNabeel Hector 68/M LABELL [id number] Jassi Alegria MD FACS SPEC NUM: [id number] RECD: 04/23/24 STATUS: SOUT REQ NUM: [id number] RANJITH: 04/23/24 [facility] DR: Jassi Alegria MD FACS ENTERED: 04/23/24 [facility] DR: SPEC TYPE: Surgical DEPT: LUANA MOYER ENTERED BY: [id number] RECV BY: [id number] ORDERED: CD45/2, HE/4, Gross/Micro L4, AE1-AE3, BCL-2, BCL-6, CD10, CD20, CD23, CD3, CD30/2, CD5, PAX5/2 ORDERED: CD45/2, HE/4, Gross/Micro L4, AE1-AE3, BCL-2, BCL-6, CD10, CD20, CD23, CD3, CD30/2, CD5, PAX5/2, USS/7 Supplemental Report Addendum 3 Entered: 05/15/24-1014 Supplemental for addended consultation report from [facility] Addendum -Repeat MUM1 immunostain does in fact stain the focal large atypical cells -No change in final diagnosis Addendum Signed (signature on file) Trinity Lauren MD 05/15/24 1014 -- Addendum 2 Entered: 05/14/24-1445 Supplemental for findings of consultation report from [facility]: -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 -- Specimen: [id number] Received: 04/23/24-1321 Status: MERNA Montemayor Num: [id number] Spec Type: Surgical Subm Dr: Jassi Alegria MD FACS Tissues: A Lymph Node - Biopsy (Needle or Incisional) (R AXILLARY LYMPH NODE BX) Procedures: CD45/2, HE/4, Gross/Micro L4, AE1-AE3, BCL-2, BCL-6, CD10, CD20, CD23, CD3, CD30/2, CD5, PAX5/2 -- Patient: Nabeel Tran [id number] (Continued) -- Specimen: [id number] Received: 04/23/24 (Continued) Supplemental Report (Continued) Signed (signature on file) Trinity Lauren MD 05/01/24 1651 -- Specimen: [id number] Received: 04/23/24 Status: MERNA Montemayor Num: [id number] Spec Type: Surgical Subm Dr: Jassi Alegria MD FACS Tissues: A Lymph Node - Biopsy (Needle or Incisional) (R AXILLARY LYMPH NODE BX) Procedures: CD45/2, HE/4, Gross/Micro L4, AE1-AE3, BCL-2, BCL-6, CD10, CD20, CD23, CD3, CD30/2, CD5, PAX5/2 -- Patient: Nabeel Tran [id number] (Continued) -- Specimen: [id number] Received: 04/23/24 (Continued) Supplemental Report (Continued) lymphocytes -See comment Addendum Signed (signature on file) Kin-Gama Lauren MD 05/14/24 1437 -- Addendum 1 Entered: 05/07/24 Supplemental for findings of Flow Cytometry report from [facility] -No significant lymphoid immunophenotypic abnormalities detected Addendum [...] contributory. -The concurrent flow cytometry study from [facility] is no significant lymphoid (more content not included)... Normal [facility] SURGICAL PATHOLOGY REFERENCE LAB CONSULTon 04-18-2024 CASE REPORT Normal [facility] Comment on above: Order Comment: Speci men Type: FORMALIN-FIXED PARAFFIN-EMBEDDED TISSUE SPECIMENOrdering Facility: [facility] Address: [address] [place], [place] [address] Result Comment: Surg [facility] Pathology Report Case: [id number] Authorizing Provider: Kin Lauren MD Collected: 04/18/2024 08:55 AM Ordering Location: [facility] Received: 04/18/2024 08:55 AM [facility] Pathologist: Crystal Mesa MD, PhD Specimen: Slide(s), 2 SLIDES [id number] Performed By: #### L [id number] ####[facility] [id number] [address] CLINICAL HISTORY CONSULT REQUESTED Normal [facility] Comment on above: Order Comment: Speci men Type: FORMALIN-FIXED PARAFFIN-EMBEDDED TISSUE SPECIMENOrdering Facility: [facility] Address: [address] [place], [place] [address] Performed By: #### L [id number] ####[facility] [id number] [address] DIAGNOSIS COMMENT Normal [facility] Comment on above: Order Comment: Speci men Type: FORMALIN-FIXED PARAFFIN-EMBEDDED TISSUE SPECIMENOrdering Facility: [facility] Address: [address] [place], [place] [address] Result Comment: Than k you for sharing [...] to contact the Hematopathology Consult Service at [phone] for any questions or if additional follow-up information becomes available. Performed By: #### L [id number] ####[facility] [id number] [address] FINAL DIAGNOSIS Normal [facility] Comment on above: Order Comment: Speci men Type: FORMALIN-FIXED PARAFFIN-EMBEDDED TISSUE SPECIMENOrdering Facility: [facility] Address: [address] [place] [phone] Result Comment: A. O utside materials received from [facility], [place], [place] (External ID [id number], 04/14/24) Right axillary lymph node, core biopsy: -Extremely limited specimen compatible with malignancy, see comment. [facility] April 18, 2024 Performed By: #### L [id number] ####[facility] [id number] [address] STATES OF [facility] FINAL PERFORMING LAB Normal [facility] Comment on above: Order Comment: Speci men Type: FORMALIN-FIXED PARAFFIN-EMBEDDED TISSUE SPECIMENOrdering Facility: [facility] Address: [address] [place], [place] [address] Result Comment: Diag nostic interpretation performed at: [facility], [address] [place] [address] CLIA# [id number] Academic Associate: Ramiro Degroot MD Performed By: #### L [id number] ####[facility] [id number] [address] MICROSCOPIC DESCRIPTION Histologic sections demonstrate multiple [...] to further characterize this limited sample. Normal [facility] Comment on above: Order Comment: Speci men Type: FORMALIN-FIXED PARAFFIN-EMBEDDED TISSUE SPECIMENOrdering Facility: [facility] Address: [address] [place] [id number] Performed By: #### L [id number] ####[facility] LABCLIA [id number] [place] [id number] [facility] Robert 04-11-2024 L Specimen: [id number] R eceived: 04/14/24 Status: MERNA Montemayor Num: [id number] Spec Type: Surgical Subm Dr: Nabeel Strange MD Tissues: A Lymph Node - Biopsy (Needle or Incisional) (R AXILLA LYMPH NODE) B Gross Only (LYMPH NODE) Procedures: HE/2, Gross/Micro L4, Level 1 Gross Age/ Patient Sex Location Account Attending Physician Nabeel Tran 68/M LABELL [id number] Nabeel Strange MD SPEC NUM: [id number] RECD: 04/14/24 STATUS: MERNA MONTEMAYOR NUM: [id number] RANJITH: 04/11/24 DR: Nabeel Strange MD ENTERED: 04/14/[address]: Stan,Lab SPEC TYPE: Surgical DEPT: LUANA MOYER ENTERED BY: [id number] RECV BY: [id number] ORDERED: HE/2, Gross/Micro L4, Level 1 Gross ORDERED: HE/2, Gross/Micro L4, Level 1 Gross Supplemental Report Addendum 2 Entered: 04/21/24-1304 Supplemental for findings of consultation report from [facility]: A, -Extremity limited specimen compatible with malignancy, see comment Addendum Signed (signature on file) Trinity Lauren MD 04/21/24 1307 -- Addendum 1 Entered: 04/18/24-2614 Supplemental for findings of flow cytometry report from [facility]: -Tests canceled -This test is canceled due to poor sample quality / poor viability -- Specimen: [id number] Received: 04/14/24 Status: MERNA Montemayor Num: [id number] Spec Type: Surgical Subm Dr: Nabeel Strange MD Tissues: A Lymph Node - Biopsy (Needle or Incisional) (R AXILLA LYMPH NODE) B Gross Only (LYMPH NODE) Procedures: HE/2, Gross/Micro L4, Level 1 Gross -- Patient: Nabeel Tran [id number] (Continued) -- Specimen: [id number] Received: 04/14/24 (Continued) Supplemental Report (Continued) Signed (signature on file) Trinity Lauren MD 04/17/24 1127 -- Specimen: [id number] Received: 04/14/24 Status: MERNA Montemayor Num: [id number] Spec Type: Surgical Subm Dr: Nabeel Strange MD Tissues: A Lymph Node - Biopsy (Needle or Incisional) (R AXILLA LYMPH NODE) B Gross Only (LYMPH NODE) Procedures: HE/2, Gross/Micro L4, Level 1 Gross -- Patient: Nabeel Tran [id number] (Continued) -- Specimen: [id number] Received: 04/14/24 (Continued) Supplemental Report (Continued) Addendum [...] to an outside facility. DM -- Specimen: [id number] Received: 04/14/24 Status: TAMIALakshmi Miguel Num: [id number] Spec Type: Surgical Subm Dr: Nabeel Strange MD Tissues: A Lymph Node - Biopsy (Needle or Incisio (more content not included)... Normal [facility] Insurance Correspondenceon 0 01-30-2024 Insurance Correspondence [id number]#1.00TIFF Normal [facility] Consent for Procedure/Surger yon 01-22-2024 Consent for Procedure/Surgery [id number]#1.00TIFF Normal [facility] Physician Referralon 024 Physician Referral [id number]#1.00TIFF Normal [facility] Screenson 01-22-2024 Screens [id number]#1.00TIFF Normal [facility] Ambulatory Visit Summaryon 0 01-21-2024 [...] the Following Appointments Follow Up with DONN ELILS, Moody Aranda, URL When: Where: [facility] [address], [place] [address]- Medications What When Instructions Unchanged amlodipine (amLODIPine [...] urine (ur (more content not included)... Normal [facility] Patient Educationon 01-21-20 Patient Education [...] Follow these instructions at home: ? Take nzsl-jyq-zmfevrn and prescription medicines only as told by [...] the medicine (more content not included)... Normal [facility] INSULINon 08-27-2021 Insulin 19.2 uIU/mL Normal 2.6-24.9 [facility] Comment on above: Performed By: #### I NSULIN #### [facility] [address] [place] [address] Dr. Forrest Lauren CBC AUTO DIFFon 08-26-2021 BASO # 0.1 103/ul Normal 0.0-0.1 [facility] Comment on above: Performed By: #### P SASC #### [facility] [address] [address] [address] Forrest Lauren Basophils/100 WBC (Bld) 0.8 % Normal 0.2-2.0 [facility] Comment on above: Performed By: #### P SASC #### [facility] [address] [place] [address] Dr. Forrest Lauren EO # 0.4 103/ul Normal 0.0-0.7 [facility] Comment on above: Performed By: #### P SASC #### [facility] [address] [address] [address] Forrest Lauren Eosinophils/100 WBC (Bld) 4.8 % Normal 0.9-7.0 [facility] Comment on above: Performed By: #### P SASC #### [facility] [address] [place] [address] Dr. Forrest Lauren Erythrocyte distribution width (RBC) [Ratio] 12.7 % Normal 11.0-15.0 [facility] Comment on above: Performed By: #### P SASC #### [facility] [address] [place] [address] Dr. Forrest Lauren Hematocrit (Bld) [Volume fraction] 48.3 % Normal 42.0-54.0 [facility] Comment on above: Performed By: #### P SASC #### [facility] [address] [place] [address] Dr. Forrest Lauren Hemoglobin (Bld) [Mass/Vol] 16.4 g/dL Normal 14.0-18.0 [facility] Comment on above: Performed By: #### P SASC #### [facility] [address] [place] [address] Dr. Forrest Lauren IG # 0.05 10e3/ul Critically high 0.00-0.03 [facility] Comment on above: Performed By: #### P SASC #### [facility] [address] [place] [address] Dr. Forrest Lauren IG % 0.6 % Critically high 0.0-0.5 [facility] Comment on above: Performed By: #### P SASC #### [facility] [address] [place] [address] Dr. Forrest Lauren LYMPH # 2.0 103/ul Normal 1.2-3.8 [facility] Comment on above: Performed By: #### P SASC #### [facility] [address] [place] [address] Dr. Forrest Lauren Lymphocytes/100 WBC (Bld) 22.6 % Normal 20.5-60.0 [facility] Comment on above: Performed By: #### P SASC #### [facility] [address] [place] [address] Dr. Forrest Lauren MANUAL DIFF REQ NO Normal [facility] Comment on above: Performed By: #### P SASC #### [facility] [address] [place] [address] Dr. Forrest Lauren MCH (RBC) [Entitic mass] 29.8 pg Normal 25.9-34.0 [facility] Comment on above: Performed By: #### P SASC #### [facility] [address] [address] [address] Forrest Lauren MCHC (RBC) [Mass/Vol] 34.0 g/dL Normal 29.9-35.2 [facility] Comment on above: Performed By: #### P SASC #### [facility] [address] [address] [address] Forrest Lauren MCV (RBC) [Entitic vol] 87.8 fL Normal 80.0-94.0 [facility] Comment on above: Performed By: #### P SASC #### [facility] [address] [address] [address] Forrest Lauren MONO # 0.7 103/ul Normal 0.3-0.8 [facility] Comment on above: Performed By: #### P SASC #### [facility] [address] [address] [address] Forrest Lauren Monocytes/100 WBC (Bld) 8.0 % Normal 1.7-12.0 [facility] Comment on above: Performed By: #### P SASC #### [facility] [address] [place] [address] Dr. Forrest Lauren NEUT # 5.7 103/ul Normal 1.4-6.5 [facility] Comment on above: Performed By: #### P SASC #### [facility] [address] [address] [address] Forrest Lauren Neutrophils/100 WBC (Bld) 63.2 % Normal 43.0-75.0 [facility] Comment on above: Performed By: #### P SASC #### [facility] [address] [address] [address] Forrest Lauren Platelet mean volume (Bld) [Entitic vol] 9.7 fL Normal 9.5-13.5 [facility] Comment on above: Performed By: #### P SASC #### [facility] [address] [place] [address] Dr. Forrest Lauren PLT 242 103/ul Normal 150-450 [facility] Comment on above: Performed By: #### P SASC #### [facility] [address] [address] [address] Forrest Lauren RBC 5.50 106/ul Normal 4.70-6.10 [facility] Comment on above: Performed By: #### P SASC #### [facility] [address] [address] [address] Forrest Lauren WBC 9.0 103/ul Normal 4.0-11.0 [facility] Comment on above: Performed By: #### P SASC #### [facility] [address] [address] [address] Forrest Lauren GLYCOHEMOGLOBIN A1Con 2021 ADA RECOMMENDATION ADA THERAPEUTIC TARG ET 6.0 - 7.0 ACTION SUGGESTED > 7.0 Normal [facility] Comment on above: Performed By: #### A 1C #### [facility] [address] [place] [address] Dr. Forrest Lauren Glucose [Mass/Vol] 194 mg/dL Normal [facility] Comment on above: Performed By: #### A 1C #### [facility] [address] [place] [address] Dr. Forrest Lauren HbA1c (Bld) [Mass fraction] 8.4 % Critically high <=6.0 [facility] Comment on above: Performed By: #### A 1C #### [facility] [address] [place] [address] Dr. Forrest Lauren LIPID PROFILEon 08-26-2021 CHOL-HDL RATIO NORM SEE BELOW Normal [facility] Comment on above: Result Comment: 3.3 - 4.4 LOW RISK 4.4 - 7.1 AVERAGE RISK 7.1 - 11.0 MODERATE RISK >11.0 HIGH RISK Performed By: #### P SASC #### [facility] [address] [place] [address] Dr. Forrest Lauren Cholesterol [Mass/Vol] 117 mg/dL Normal <=200 [facility] Comment on above: Performed By: #### P SASC #### [facility] [address] [place] [address] Dr. Forrest Lauren Cholesterol in HDL [Mass/Vol] 43 mg/dL Normal [facility] Comment on above: Performed By: #### P SASC #### [facility] [address] [address] [address] Forrest Lauren Cholesterol in LDL [Mass/Vol] 45.6 mg/dL Normal [facility] Comment on above: Performed By: #### P SASC #### [facility] [address] [address] [address] Forrest Lauren Cholesterol.total/C holesterol in HDL [Mass ratio] 2.7 {ratio} Normal [facility] Comment on above: Performed By: #### P SASC #### [facility] [address] [address] [address] Forrest Lauren HDL NORMAL > or = 60 mg/dl - LO W CARDIOVASCULAR RISK <40 mg/dl - HIGH CARDIOVASCULAR RISK Normal [facility] Comment on above: Performed By: #### P SASC #### [facility] [address] [address] [address] Forrest Lauren LDL CALC NORMAL SEE BELOW Normal [facility] Comment on above: Result Comment: <100 mg/dl OPTIMAL 100 - 129 mg/dl NEAR OR ABOVE OPTIMAL 130 - 159 mg/dl BORDERLINE HIGH 160 - 189 mg/dl HIGH >190 mg/dl VERY HIGH Performed By: #### P SASC #### [facility] [address] [address] [address] Forrest Lauren Triglyceride [Mass/Vol] 142 mg/dL Normal <=150 [facility] Comment on above: Performed By: #### P SASC #### [facility] [address] [address] [address] Forrest Lauren VLDL CALC 28.4 mg/dL Normal [facility] Comment on above: Performed By: #### P SASC #### [facility] [address] [address] [address] Forrest Lauren PROF 14(COMP METB)on 022 Albumin [Mass/Vol] 4.1 g/dL Normal 3.5-5.0 [facility] Comment on above: Performed By: #### P SASC #### [facility] [address] [address] [address] Forrest Lauren Albumin/Globulin [Mass ratio] 1.2 {ratio} Normal [facility] Comment on above: Performed By: #### P SASC #### [facility] [address] [address] [address] Forrest Lauren ALP [Catalytic activity/Vol] 82 U/L Normal 38-126 [facility] Comment on above: Performed By: #### P SASC #### [facility] [address] [address] [address] Forrest Lauren ALT [Catalytic activity/Vol] 38 U/L Normal 21-72 [facility] Comment on above: Performed By: #### P SASC #### [facility] [address] [address] [address] Forrest Lauren Anion gap [Moles/Vol] 12.7 mmol/L Normal [facility] Comment on above: Performed By: #### P SASC #### [facility] [address] [address] [address] Forrest Lauren AST [Catalytic activity/Vol] 18 U/L Normal 17-59 [facility] Comment on above: Performed By: #### P SASC #### [facility] [address] [place] [address] Dr. Forrest Lauren Bilirubin [Mass/Vol] 1.2 mg/dL Normal 0.2-1.3 [facility] Comment on above: Performed By: #### P SASC #### [facility] [address] [address] [address] Forrest Lauren Calcium [Mass/Vol] 9.7 mg/dL Normal 8.4-10.2 [facility] Comment on above: Performed By: #### P SASC #### [facility] [address] [address] [address] Forrest Lauren Chloride [Moles/Vol] 102 mmol/L Normal 98-107 [facility] Comment on above: Performed By: #### P SASC #### [facility] [address] [address] [address] Forrest Lauren CO2 [Moles/Vol] 30.6 mmol/L Critically high 22.0-30.0 [facility] Comment on above: Performed By: #### P SASC #### [facility] [address] [address] [address] Forrest Lauren Creatinine [Mass/Vol] 1.09 mg/dL Normal 0.66-1.25 [facility] Comment on above: Performed By: #### P SASC #### [facility] [address] [address] [address] Forrest Lauren EGFR-AF [place]TH [place]OREAN >60 Normal >=60 [facility] Comment on above: Performed By: #### P SASC #### [facility] [address] [place] [address] Dr. Forrest Lauren EGFR-NON AF [place]TH [place]OREAN >60 Normal >=60 [facility] Comment on above: Performed By: #### P SASC #### [facility] [address] [address] [address] Forrest Lauren Globulin (S) [Mass/Vol] 3.4 g/dL Normal [facility] Comment on above: Performed By: #### P SASC #### [facility] [address] [place] [address] Dr. Forrest Lauren Glucose [Mass/Vol] 238 mg/dL Critically high 74-106 T [facility] Comment on above: Performed By: #### P SASC #### [facility] [address] [address] [address] Forrest Lauren Potassium [Moles/Vol] 4.3 mmol/L Normal 3.4-5.0 [facility] Comment on above: Performed By: #### P SASC #### [facility] [address] [place] [address] Dr. Forrest Lauren Protein [Mass/Vol] 7.5 g/dL Normal 6.1-8.2 [facility] Comment on above: Performed By: #### P SASC #### [facility] [address] [place] [address] Dr. Forrest Lauren Sodium [Moles/Vol] 141 mmol/L Normal 137-145 [facility] Comment on above: Performed By: #### P SASC #### [facility] [address] [address] [address] Forrest Lauren Urea nitrogen [Mass/Vol] 20.0 mg/dL Normal 9.0-20.0 [facility] Comment on above: Performed By: #### P SASC #### [facility] [address] [place] [address] Dr. Forrest Lauren Urea nitrogen/Creatinine [Mass ratio] 18.3 mg/mg Normal [facility] Comment on above: Performed By: #### P SASC #### [facility] [address] [place] [address] Dr. Forrest Lauren URIC ACID SERUMon 08-26-2021 Urate [Mass/Vol] 4.8 mg/dL Normal 3.5-8.5 [facility] Comment on above: Performed By: #### P SASC #### [facility] [address] [place] [address] Dr. Forrest Lauren [facility] Sample Type Test performed using RT-PCR from a nasopharyngeal collected specimen. Normal [facility] Comment on above: Performed By: #### P SASC #### [facility] [address] [place] [address] Dr. Forrest Lauren SARS-CoV-2 (COVID-19) RNA MERA+probe Ql (Unsp spec) Detected Abnormal NOT DETECTED [facility] Comment on above: Result Comment: This test is not yet approved or cleared by the [place] FDA. When there are no FDA-approved or cleared tests available, and other criteria are met, FDA can make tests available under an emergency access mechanism called an Emergency Use Authorization (EUA). The EUA for this test is supported by the [employer] of Health and Human Service's (HHS's) declaration [...] used). Performed By: #### P SASC #### [facility] [address] [place] [address] Dr. Forrest Lauren POINT OF CARE GLUCOSEon 05-0 Glucose [Mass/Vol] 255 mg/dL Critically high 74-106 T [facility] Comment on above: Performed By: #### P OCGLUC #### [facility] [address] [place] [address] Matias Evelyn XR CHEST 1 Von 12-07-2020 [...] AMARIS WALKER Date: 2020-12-06 22:04 Normal [facility] INSULINon 10-02-2020 Insulin 16.9 uIU/mL Normal 2.6-24.9 [facility] Comment on above: Performed By: #### P SASC #### [facility] [address] [place] [address] Dr. Forrest Lauren CBC AUTO DIFFon 10-01-2020 BASO # 0.1 103/ul Normal 0.0-0.1 [facility] Comment on above: Performed By: #### C BC #### [facility] [address] [place] [address] Matias Evelyn Basophils/100 WBC (Bld) 0.6 % Normal 0.2-2.0 [facility] Comment on above: Performed By: #### C BC #### [facility] [address] [place] [address] Matias Evelyn EO # 0.4 103/ul Normal 0.0-0.7 [facility] Comment on above: Performed By: #### C BC #### [facility] [address] [id number] Matias Evelyn Eosinophils/100 WBC (Bld) 4.2 % Normal 0.9-7.0 [facility] Comment on above: Performed By: #### C BC #### [facility] [address] [place], [place] [address] Matias Evelyn Erythrocyte distribution width (RBC) [Ratio] 13.1 % Normal 11.0-15.0 [facility] Comment on above: Performed By: #### C BC #### [facility] [address] [place] [address] Matias Evelyn Hematocrit (Bld) [Volume fraction] 50.2 % Normal 42.0-54.0 [facility] Comment on above: Performed By: #### C BC #### [facility] [address] [place] [address] Matias Evelyn Hemoglobin (Bld) [Mass/Vol] 16.6 g/dL Normal 14.0-18.0 [facility] Comment on above: Performed By: #### C BC #### [facility] [address] [place], [place] [address] Matias Evelyn IG # 0.05 10e3/ul Critically high 0.00-0.03 [facility] Comment on above: Performed By: #### C BC #### [facility] [address] [place], [place] [address] Matias Evelyn IG % 0.6 % Critically high 0.0-0.5 [facility] Comment on above: Performed By: #### C BC #### [facility] [address] [place] [address] Matias Evelyn LYMPH # 1.9 103/ul Normal 1.2-3.8 [facility] Comment on above: Performed By: #### C BC #### [facility] [address] [place], [place] [address] Matias Evelyn Lymphocytes/100 WBC (Bld) 22.2 % Normal 20.5-60.0 [facility] Comment on above: Performed By: #### C BC #### [facility] [address] [place], [place] [address] Matias Evelyn MANUAL DIFF REQ NO Normal [facility] Comment on above: Performed By: #### C BC #### [facility] [address] [place], [place] [address] Matiaswali Rivas MCH (RBC) [Entitic mass] 29.4 pg Normal 25.9-34.0 [facility] Comment on above: Performed By: #### C BC #### [facility] [address] [place], [place] [address] Matiaswali Rivas MCHC (RBC) [Mass/Vol] 33.1 g/dL Normal 29.9-35.2 [facility] Comment on above: Performed By: #### C BC #### [facility] [address] [place] [address] Matias Evelyn MCV (RBC) [Entitic vol] 88.8 fL Normal 80.0-94.0 [facility] Comment on above: Performed By: #### C BC #### [facility] [address] [place] [address] Matias Evelyn MONO # 0.7 103/ul Normal 0.3-0.8 [facility] Comment on above: Performed By: #### C BC #### [facility] [address] [place], [place] [address] Matias Evelyn Monocytes/100 WBC (Bld) 7.7 % Normal 1.7-12.0 [facility] Comment on above: Performed By: #### C BC #### [facility] [address] [place] [address] Matias Evelyn NEUT # 5.7 103/ul Normal 1.4-6.5 [facility] Comment on above: Performed By: #### C BC #### [facility] [address] [place], [place] [address] Matias Evelyn Neutrophils/100 WBC (Bld) 64.7 % Normal 43.0-75.0 [facility] Comment on above: Performed By: #### C BC #### [facility] [address] [place], [place] [address] Matias Evelyn Platelet mean volume (Bld) [Entitic vol] 10.4 fL Normal 9.5-13.5 [facility] Comment on above: Performed By: #### C BC #### [facility] [address] [place] [address] Matias Rivas PLT 243 103/ul Normal 150-450 [facility] Comment on above: Performed By: #### C BC #### [facility] [address] [place] [address] Matias Rivas RBC 5.65 106/ul Normal 4.70-6.10 [facility] Comment on above: Performed By: #### C BC #### [facility] [address] [place] [address] Matias Rivas WBC 8.7 103/ul Normal 4.0-11.0 [facility] Comment on above: Performed By: #### C BC #### [facility] [address] [place] [address] Matias Rivas FREE THYROXINE INDEX T7on FTI 2.11 Normal [facility] Comment on above: Performed By: #### U TARIK, CMP, T7, PSASC, TSH, LIPID #### [facility] [address] [place] [address] Matias Rivas T3U 34.0 % Normal 23.5-40.5 [facility] Comment on above: Performed By: #### U TARIK, CMP, T7, PSASC, TSH, LIPID #### [facility] [address] [place] [address] Matias Rivas T4 [Mass/Vol] 6.20 ug/dL Normal 5.53-11.00 [facility] Comment on above: Performed By: #### U TARIK, CMP, T7, PSASC, TSH, LIPID #### [facility] [facility] [address] [place] [address] Matias Rivas GLYCOHEMOGLOBIN A1Con 2020 ADA RECOMMENDATION ADA THERAPEUTIC TARG ET 6.0 - 7.0 ACTION SUGGESTED > 7.0 Normal [facility] Comment on above: Performed By: #### A 1C #### [facility] [address] [place], [place] [address] Matias Rivas Glucose [Mass/Vol] 266 mg/dL Normal [facility] Comment on above: Performed By: #### A 1C #### [facility] [address] [place] [id number] Matias Rivas HbA1c (Bld) [Mass fraction] 10.9 % Critically high <=6.0 [facility] Comment on above: Performed By: #### A 1C #### [facility] [address] [place] [address] Matias Rivas LIPID PROFILEon 10-01-2020 CHOL-HDL RATIO NORM SEE BELOW Normal [facility] Comment on above: Result Comment: 3.3 - 4.4 LOW RISK 4.4 - 7.1 AVERAGE RISK 7.1 - 11.0 MODERATE RISK >11.0 HIGH RISK Performed By: #### P SASC #### [facility] [address] [place] [address] Dr. Forrest Lauren Cholesterol [Mass/Vol] 110 mg/dL Normal <=200 [facility] Comment on above: Performed By: #### P SASC #### [facility] [address] [place] [address] [address] Forrest Lauren Cholesterol in HDL [Mass/Vol] 36 mg/dL Normal [facility] Comment on above: Performed By: #### P SASC #### [facility] [address] [place] [address] [address] Forrest Lauren Cholesterol in LDL [Mass/Vol] 36.2 mg/dL Normal [facility] Comment on above: Performed By: #### P SASC #### [facility] [address] [place] [address] [address] Forrest Lauren Cholesterol.total/C holesterol in HDL [Mass ratio] 3.1 {ratio} Normal [facility] Comment on above: Performed By: #### P SASC #### [facility] [address] [place] [address] Dr. Forrest Lauren HDL NORMAL > or = 60 mg/dl - LO W CARDIOVASCULAR RISK <40 mg/dl - HIGH CARDIOVASCULAR RISK Normal [facility] Comment on above: Performed By: #### P SASC #### [facility] [address] [place] [address] [address] Forrest Lauren LDL CALC NORMAL SEE BELOW Normal [facility] Comment on above: Result Comment: <100 mg/dl OPTIMAL 100 - 129 mg/dl NEAR OR ABOVE OPTIMAL 130 - 159 mg/dl BORDERLINE HIGH 160 - 189 mg/dl HIGH >190 mg/dl VERY HIGH Performed By: #### P SASC #### [facility] [address] [place] [address] [address] Forrest Lauren Triglyceride [Mass/Vol] 189 mg/dL Critically high <=150 [facility] Comment on above: Performed By: #### P SASC #### [facility] [address] [place] [address] [address] Forrest Lauren VLDL CALC 37.8 mg/dL Normal [facility] Comment on above: Performed By: #### P SASC #### [facility] [address] [place] [address] Dr. Forrest Lauren PROF 14(COMP METB)on 021 Albumin [Mass/Vol] 4.1 g/dL Normal 3.5-5.0 [facility] Comment on above: Performed By: #### U TARIK, CMP, T7, PSASC, TSH, LIPID #### [facility] [address] [place] [address] Matias Rivas Albumin/Globulin [Mass ratio] 1.2 {ratio} Normal [facility] Comment on above: Performed By: #### U TARIK, CMP, T7, PSASC, TSH, LIPID #### [facility] [address] [place] [address] Matias Evelyn ALP [Catalytic activity/Vol] 80 U/L Normal 38-126 [facility] Comment on above: Performed By: #### U TARIK, CMP, T7, PSASC, TSH, LIPID #### [facility] [address] [place] [address] Matias Evelyn ALT [Catalytic activity/Vol] 42 U/L Normal 21-72 [facility] Comment on above: Performed By: #### U TARIK, CMP, T7, PSASC, TSH, LIPID #### [facility] [address] [place] [address] Matias Evelyn Anion gap [Moles/Vol] 12.3 mmol/L Normal [facility] Comment on above: Performed By: #### U TARIK, CMP, T7, PSASC, TSH, LIPID #### [facility] [address] [place] [address] Matias Evelyn AST [Catalytic activity/Vol] 24 U/L Normal 17-59 [facility] Comment on above: Performed By: #### U TARIK, CMP, T7, PSASC, TSH, LIPID #### [facility] [address] [place] [address] Matias Evelyn Bilirubin [Mass/Vol] 1.3 mg/dL Normal 0.2-1.3 [facility] Comment on above: Performed By: #### U TARIK, CMP, T7, PSASC, TSH, LIPID #### [facility] [address] [place] [address] Matias Evelyn Calcium [Mass/Vol] 9.3 mg/dL Normal 8.4-10.2 [facility] Comment on above: Performed By: #### U TARIK, CMP, T7, PSASC, TSH, LIPID #### [facility] [address] [place] [address] Matias Evelyn Chloride [Moles/Vol] 103 mmol/L Normal 98-107 [facility] Comment on above: Performed By: #### U TARIK, CMP, T7, PSASC, TSH, LIPID #### [facility] [address] [place] [address] Matias Evelyn CO2 [Moles/Vol] 30.0 mmol/L Normal 22.0-30.0 [facility] Comment on above: Performed By: #### U TARIK, CMP, T7, PSASC, TSH, LIPID #### [facility] [address] [place] [address] Matias Evelyn Creatinine [Mass/Vol] 1.20 mg/dL Normal 0.66-1.25 [facility] Comment on above: Performed By: #### U TARIK, CMP, T7, PSASC, TSH, LIPID #### [facility] [address] [place] [address] Matias Evelyn EGFR-AF NORTH KOREAN >60 Normal >=60 [facility] Comment on above: Performed By: #### U TARIK, CMP, T7, PSASC, TSH, LIPID #### [facility] [address] [place] [address] Matias Evelyn EGFR-NON AF [place]OREAN >60 Normal >=60 [facility] Comment on above: Performed By: #### U TARIK, CMP, T7, PSASC, TSH, LIPID #### [facility] [address] [place] [address] Matias Evelyn Globulin (S) [Mass/Vol] 3.5 g/dL Normal [facility] Comment on above: Performed By: #### U TARIK, CMP, T7, PSASC, TSH, LIPID #### [facility] [address] [place] [address] Matias Evelyn Glucose [Mass/Vol] 269 mg/dL Critically high 74-106 T [facility] Comment on above: Performed By: #### U TARIK, CMP, T7, PSASC, TSH, LIPID #### [facility] [address] [place] [address] Matias Evelyn Potassium [Moles/Vol] 4.3 mmol/L Normal 3.4-5.0 [facility] Comment on above: Performed By: #### U TARIK, CMP, T7, PSASC, TSH, LIPID #### [facility] [address] [place] [address] Matias Evelyn Protein [Mass/Vol] 7.6 g/dL Normal 6.1-8.2 [facility] Comment on above: Performed By: #### U TARIK, CMP, T7, PSASC, TSH, LIPID #### [facility] [address] [place] [address] Matias Evelyn Sodium [Moles/Vol] 141 mmol/L Normal 137-145 [facility] Comment on above: Performed By: #### U TARIK, CMP, T7, PSASC, TSH, LIPID #### [facility] [address] [place] [address] Matias Rivas Urea nitrogen [Mass/Vol] 17.0 mg/dL Normal 9.0-20.0 [facility] Comment on above: Performed By: #### U TARIK, CMP, T7, PSASC, TSH, LIPID #### [facility] [address] [place] [address] Matias Rivas Urea nitrogen/Creatinine [Mass ratio] 14.2 mg/mg Normal [facility] Comment on above: Performed By: #### U TARIK, CMP, T7, PSASC, TSH, LIPID #### [facility] [address] [place] [address] Matias Rivas TSHon 10-01-2020 TSH 1.574 uIU/mL Normal 0.470-4.68 0 [facility] Comment on above: Performed By: #### P SASC #### [facility] [address] [place] [address] [address] Forrest Lauren TSH RANGE SEE BELOW Normal [facility] Comment on above: Result Comment: <0.3 4 UIU/ml HYPERTHYROID 0.34-5.60 UIU/ml EUTHYROID >5.60 UIU/ml HYPOTHYROID Performed By: #### P SASC #### [facility] [address] [place] [address] [address] Forrest Lauren URIC ACID SERUMon 10-01-2020 Urate [Mass/Vol] 4.8 mg/dL Normal 3.5-8.5 [facility] Comment on above: Performed By: #### P SASC #### [facility] [address] [place] [address] [address] Forrest Lauren Cardiovascular Lab Reporton 08-03-2017 Cardiovascular Lab Report [facility] Patient Name: [facility] MR #: [id number] Physician: Jerod Miller M.D.Medicine Service Date: 2017Division of Birthdate: 6Cardiology Room #: [facility] [phone] Fax Cardiovascular Laboratory ReportINDICATION: Nabeel Tran is [...] the right internal jugular vein and a 6-Mauritian x 11cm sheath was placed. A 6-Mauritian Griffith catheter was used for right heartcatheterization with measurement of pressures and calculation of cardiacoutput using the estimated Luke method. Griffith catheter was removed.Using ultrasound guidance and micropuncture technique, access was obtainedin the left radial artery and a 6-Mauritian x 11 cm Hydrophilic sheath wasadvanced. Verapamil [...] 08/02/2017/02:42 P/Jerod Staton M.D.Date Trans: 08/03/2017 11:29 [id number]: Neville Mata D.O. [address] [place], [place] [id number] Normal [facility] Vital Signs Date Time Vital Sign Value Performing Clinician Paulai devorah 12-18-2024 10:31-0400 Body mass index (BMI) [Ratio] 23.51 kg/m2 Rg Winston MD Work Phone: [facility] 12-18-2024 10:31-0400 Body weight 84.2 kg Rg Winston MD Work Phone: [facility] 12-18-2024 10:31-0400 Diastolic blood pressure 65 mm[Hg] Rg Winston MD Work Phone: [facility] 12-18-2024 10:31-0400 Heart rate 59 /min Rg Winston MD Work Phone: [facility] 12-18-2024 10:31-0400 Respiratory rate 18 /min Rg Winston MD Work Phone: [facility] 12-18-2024 10:31-0400 SaO2% (BldA) [Mass fraction] 98 % Rg Winston MD Work Phone: [facility] 12-18-2024 10:31-0400 Systolic blood pressure 113 mm[Hg] Rg Winston MD Work Phone: [facility] 11-13-2024 10:00-0400 Body mass index (BMI) [Ratio] 22.98 kg/m2 Rg Winston MD Work Phone: [facility] 11-13-2024 10:00-0400 Body temperature 97.3 [degF] Rg Winston MD Work Phone: [facility] 11-13-2024 10:00-0400 Body weight 82.3 kg Rg Winston MD Work Phone: [facility] 11-13-2024 10:00-0400 Diastolic blood pressure 87 mm[Hg] Rg Winston MD Work Phone: [facility] 11-13-2024 10:00-0400 Heart rate 66 /min Rg Winston MD Work Phone: [facility] 11-13-2024 10:00-0400 Respiratory rate 16 /min Rg Winston MD Work Phone: [facility] 11-13-2024 10:00-0400 SaO2% (BldA) [Mass fraction] 99 % Rg Winston MD Work Phone: [facility] 11-13-2024 10:00-0400 Systolic blood pressure 121 mm[Hg] Rg Winston MD Work Phone: [facility] 11-05-2024 09:59-0400 Body mass index (BMI) [Ratio] 23.07 kg/m2 Rg Winston MD Work Phone: [facility] 11-05-2024 09:59-0400 Body temperature 97.9 [degF] Rg Winston MD Work Phone: [facility] 11-05-2024 09:59-0400 Body weight 82.6 kg Rg Winston MD Work Phone: [facility] 11-05-2024 09:59-0400 Diastolic blood pressure 69 mm[Hg] Rg Winston MD Work Phone: [facility] 11-05-2024 09:59-0400 Heart rate 65 /min Rg Winston MD Work Phone: [facility] 11-05-2024 09:59-0400 Respiratory rate 16 /min Rg Winston MD Work Phone: [facility] 11-05-2024 09:59-0400 SaO2% (BldA) [Mass fraction] 97 % Rg Winston MD Work Phone: [facility] 11-05-2024 09:59-0400 Systolic blood pressure 121 mm[Hg] Rg Winston MD Work Phone: [facility] 10-29-2024 10:23-0400 Body mass index (BMI) [Ratio] 23.26 kg/m2 Rg Winston MD Work Phone: [facility] 10-29-2024 10:23-0400 Body temperature 97.5 [degF] Rg Winston MD Work Phone: [facility] 10-29-2024 10:23-0400 Body weight 83.3 kg Rg Winston MD Work Phone: [facility] 10-29-2024 10:23-0400 Diastolic blood pressure 60 mm[Hg] Rg Winston MD Work Phone: [facility] 10-29-2024 10:23-0400 Heart rate 64 /min Rg Winston MD Work Phone: [facility] 10-29-2024 10:23-0400 Respiratory rate 16 /min Rg Winston MD Work Phone: [facility] 10-29-2024 10:23-0400 SaO2% (BldA) [Mass fraction] 99 % Rg Winston MD Work Phone: [facility] 10-29-2024 10:23-0400 Systolic blood pressure 95 mm[Hg] Rg Winston MD Work Phone: [facility] 10-21-2024 13:45-0400 Body mass index (BMI) [Ratio] 23.54 kg/m2 Rg Winston MD Work Phone: [facility] 10-21-2024 13:45-0400 Body temperature 97.81 [degF] Rg Winston MD Work Phone: [facility] 10-21-2024 13:45-0400 Body weight 84.3 kg Rg Winston MD Work Phone: [facility] 10-21-2024 13:45-0400 Diastolic blood pressure 70 mm[Hg] Rg Winston MD Work Phone: [facility] 10-21-2024 13:45-0400 Heart rate 61 /min Rg Winston MD Work Phone: [facility] 10-21-2024 13:45-0400 Respiratory rate 18 /min Rg Winston MD Work Phone: [facility] 10-21-2024 13:45-0400 SaO2% (BldA) [Mass fraction] 95 % Rg Winston MD Work Phone: [facility] 10-21-2024 13:45-0400 Systolic blood pressure 130 mm[Hg] Rg Winston MD Work Phone: [facility] 09-25-2024 09:12-0500 Body height 189.2 cm Rg Winston MD Work Phone: [facility] 09-25-2024 09:12-0500 Body mass index (BMI) [Ratio] 23.85 kg/m2 Rg Winston MD Work Phone: [facility] 09-25-2024 09:12-0500 Body temperature 96.8 [degF] Rg Winston MD Work Phone: [facility] 09-25-2024 09:12-0500 Body weight 85.4 kg Rg Winston MD Work Phone: [facility] 09-25-2024 09:12-0500 Diastolic blood pressure 63 mm[Hg] Rg Winston MD Work Phone: [facility] 09-25-2024 09:12-0500 Heart rate 62 /min Rg Winston MD Work Phone: [facility] 09-25-2024 09:12-0500 Respiratory rate 16 /min Rg Winston MD Work Phone: [facility] 09-25-2024 09:12-0500 SaO2% (BldA) [Mass fraction] 98 % Rg Winston MD Work Phone: [facility] 09-25-2024 09:12-0500 Systolic blood pressure 110 mm[Hg] Rg Winston MD Work Phone: [facility] 08-07-2024 10:05-0500 Body mass index (BMI) [Ratio] 23.57 kg/m2 Christopher Deepa DO Work Phone: [facility] 08-07-2024 10:05-0500 Body weight 83.28 kg Christopher Deepa DO Work Phone: [facility] 08-07-2024 10:05-0500 Diastolic blood pressure 62 mm[Hg] Christopher Deepa DO Work Phone: [facility] 08-07-2024 10:05-0500 Heart rate 74 /min Christopher Deepa DO Work Phone: [facility] 08-07-2024 10:05-0500 SaO2% (BldA) [Mass fraction] 96 % Christopher Deepa DO Work Phone: [facility] 08-07-2024 10:05-0500 Systolic blood pressure 90 mm[Hg] Christopher Deepa DO Work Phone: [facility] 07-29-2024 09:12-0500 Body height 188 cm Regis Ibarra MD Work Phone: [facility] 07-29-2024 09:12-0500 Body mass index (BMI) [Ratio] 22.7 kg/m2 Regis Ibarra MD Work Phone: [facility] 07-29-2024 09:12-0500 Body temperature 97.3 [degF] Regis Ibarra MD Work Phone: [facility] 07-29-2024 09:12-0500 Body weight 80.2 kg Regis Ibarra MD Work Phone: [facility] 06-17-2024 12:25-0500 Body height 188 cm Elaner Deepa DO Work Phone: [facility] 06-17-2024 12:25-0500 Body mass index (BMI) [Ratio] 20.29 kg/m2 Christopher Deepa DO Work Phone: [facility] 06-17-2024 12:25-0500 Body weight 71.67 kg Christopher Deepa DO Work Phone: [facility] 06-17-2024 12:25-0500 Diastolic blood pressure 75 mm[Hg] Christopher Deepa DO Work Phone: [facility] 06-17-2024 12:25-0500 Heart rate 98 /min Christopher Deepa DO Work Phone: [facility] 06-17-2024 12:25-0500 SaO2% (BldA) [Mass fraction] 93 % Christopher Deepa DO Work Phone: [facility] 06-17-2024 12:25-0500 Systolic blood pressure 118 mm[Hg] Christopher Deepa DO Work Phone: [facility] 06-03-2024 09:54-0400 Diastolic blood pressure 68 mm[Hg] Jassi ALEGRIA [facility] [place] 06-03-2024 09:54-0400 Heart rate 105 /min Jassi ALEGRIA [facility] [place] 06-03-2024 09:54-0400 Respiratory rate 16 /min Jassi AIRAM [facility] 06-03-2024 09:54-0400 Systolic blood pressure 103 mm[Hg] Jassi BCL [facility] 05-29-2024 06:42-0400 Body height 190.5 cm DO [employer] Work Phone: [facility] 05-29-2024 06:42-0400 Body weight 78.47 kg DO [employer] Work Phone: [facility] 01-21-2024 11:44-0400 Blood Pressure Location Moody POP [facility] 01-21-2024 11:44-0400 Diastolic blood pressure 72 mm[Hg] Moody POP [facility] 01-21-2024 11:44-0400 Heart rate 70 /min Moody [facility] 01-21-2024 11:44-0400 Respiratory rate 16 /min Moody [facility] 01-21-2024 11:44-0400 Systolic blood pressure 108 mm[Hg] Moody [facility] Encounters Encounter Date Encounter Type Care Provider Facility Start: 03-23-2025 End: 03-23-2025 [facility] Start: 12-18-2024 End: 12-18-2024 Patient encounter procedure Rg Winston MD Work Phone: Radiation Oncology Comment on above: Hodgkin lymphoma, un specified Hodgkin lymphoma type, unspecified body region (HCC) (Primary Dx) Start: 12-18-2024 End: 12-18-2024 ambulatory RG CATRACHITO Facility:[facility] Start: 12-02-2024 End: 12-11-2024 Telephone encounter Rg Winston MD Work Phone: [facility] Start: 11-17-2024 End: 11-17-2024 ambulatory RG CATRACHITO Facility:[facility] Start: 11-14-2024 End: 11-14-[address] Work Phone: Nutrition Therapy Start: 11-14-2024 End: 11-14-2024 Nutrition therapy Margo Schumacher RD Work Phone: Nutrition Therapy Comment on above: Nutrition Telephone (No answer/) Start: 11-14-2024 End: 11-14-2024 ambulatory RG CATRACHITO Facility:[facility] Start: 11-13-2024 End: 11-13-2024 Patient encounter procedure Rg Winston MD Work Phone: [facility] Comment on above: Hodgkin lymphoma, un specified Hodgkin lymphoma type, unspecified body region (HCC) (Primary Dx) Start: 11-13-2024 End: 11-13-2024 ambulatory RG CATRACHITO Facility:[facility] Start: 11-12-2024 End: 11-12-2024 ambulatory RG CATRACHITO Facility:[facility] Start: 11-11-2024 End: 11-11-2024 ambulatory RG CATRACHITO Facility:[facility] Start: 11-10-2024 End: 11-10-2024 ambulatory RG CATRACHITO Facility:[facility] Start: 11-07-2024 End: 11-07-2024 ambulatory RG CATRACHITO Facility:[facility] Start: 11-06-2024 End: 11-06-2024 ambulatory RG CATRACHITO Facility:[facility] Start: 11-05-2024 End: 11-05-2024 Patient encounter procedure Rg Winston MD Work Phone: Radiation Oncology Comment on above: Hodgkin lymphoma, un specified Hodgkin lymphoma type, unspecified body region (HCC) (Primary Dx) Start: 11-05-2024 End: 11-05-2024 ambulatory RG CATRACHITO Facility:[facility] Start: 11-04-2024 End: 11-04-2024 ambulatory RG CATRACHITO Facility:[facility] Start: 11-03-2024 End: 11-03-2024 ambulatory RG CATRACHITO Facility:[facility] Start: 10-31-2024 End: 10-31-2024 ambulatory RG CATRACHITO Facility:[facility] Start: 10-30-2024 End: 10-30-2024 ambulatory RG CATRACHITO Facility:[facility] Start: 10-29-2024 End: 10-29-2024 Patient encounter procedure Rg Winston MD Work Phone: Radiation Oncology Comment on above: Hodgkin lymphoma, un specified Hodgkin lymphoma type, unspecified body region (HCC) (Primary Dx) Start: 10-29-2024 End: 10-29-2024 ambulatory RG CATRACHITO Facility:[facility] Start: 10-28-2024 End: 10-28-2024 ambulatory RG CATRACHITO Facility:[facility] Start: 10-27-2024 End: 10-27-2024 ambulatory RG CATRACHITO Facility:[facility] Start: 10-24-2024 End: 10-24-2024 ambulatory RG CATRACHITO Facility:[facility] Start: 10-23-2024 End: 10-23-2024 ambulatory RG CATRACHITO Facility:[facility] Start: 10-22-2024 End: 10-22-2024 ambulatory RG CATRACHITO Facility:[facility] Start: 10-21-2024 End: 10-21-2024 ambulatory RG CATRACHITO Facility:[facility] Start: 10-21-2024 End: 10-21-2024 Patient encounter procedure Rg Winston MD Work Phone: Radiation Oncology Comment on above: Hodgkin lymphoma, un specified Hodgkin lymphoma type, unspecified body region (HCC) (Primary Dx) Start: 10-08-2024 End: 10-08-2024 Patient encounter procedure [facility] Start: 10-07-2024 End: 10-21-2024 Patient encounter procedure Rg Winston MD Work Phone: [facility]cology Start: 10-07-2024 End: 10-21-2024 Radiation Oncology Note Rg Winston MD Work Phone: Radiation [facility]cology Comment on above: Simulation Note Treatment Planning Start: 10-07-2024 End: 10-07-2024 ambulatory RG WINSTON Facility:[facility] Start: 10-07-2024 End: 10-07-2024 Nursing evaluation [...] (Primary Dx) Start: 09-15-2024 End: 02-10-2025 ambulatory [facility] Start: 09-08-2024 End: 09-08-2024 Telephone encounter Regis Ibarra MD Work Phone: [facility] Start: 09-01-2024 End: 09-01-2024 Bamboo flowsheet Cleve Quinn PT Work Phone: [facility] Start: 09-01-2024 End: 09-01-2024 Bamboo flowsheet Cleve Qunin PT Work Phone: [facility] Start: 09-01-2024 End: 09-01-2024 ambulatory Cleve Laksmhi Kai PT Work Phone: [facility] Comment on above: Polyneuropathy (Prim benoit Dx); Poor balance; Weakness of both lower extremities Start: 08-22-2024 End: 08-22-2024 Bamboo flowsheet Aurea Valeroy [employer]PER[employer]OR KENNEL [facility] Start: 08-22-2024 End: 08-22-2024 Bamboo flowsheet Aurea Valeroy [employer] [facility] Start: 08-22-2024 End: 08-22-2024 ambulatory Aurea Valeroy [employer] [facility] Comment on above: Polyneuropathy [...] Telephone encounter Regis Ibarra MD Work Phone: [facility] Comment on above: Need office notes fa xed Start: 08-12-2024 End: 08-12-2024 Clinisync Result Encounter Christopher Deepa DO Work Phone: [facility] Unsolicited Start: 08-12-2024 End: 08-12-2024 Clinisync Result Encounter Christopher Deepa DO Work Phone: [facility] Unsolicited Start: 08-12-2024 End: 08-12-2024 Telephone encounter Regis Ibarra MD Work Phone: [facility] Start: 08-07-2024 End: 08-07-2024 Bamboo flowsheet Christopher Deepa DO Work Phone: [employer] Start: 08-07-2024 End: 08-07-2024 Bamboo flowsheet Christopher Deepa DO Work Phone: [employer] [facility] Start: 08-07-2024 End: 08-07-2024 Office outpatient visit 25 minutes Christopher Deepa DO Work Phone: [employer] [facility] Comment on above: Lymphoma, unspecifie d body region, unspecified lymphoma type (CMS/HCC) (Primary Dx); Malnutrition, unspecified type (CMS/HCC); Polyneuropathy Start: 08-07-2024 End: 08-07-2024 ambulatory CHRISTOPHER DEEPA Not Available Start: 07-29-2024 End: 07-29-2024 Office outpatient new 45 minutes Regis Ibarra MD Work Phone: [facility] Comment on [...] encounter procedure Shelby Arenas DO Work Phone: [facility] Comment on above: Weakness (Primary Dx ); Polyneuropathy Start: 07-10-2024 End: 07-10-2024 ambulatory SHELBY DEEPA Not Available Start: 07-02-2024 End: 07-02-2024 Patient encounter procedure Lillian Nagel AUD Work Phone: [facility] Comment on above: Sensorineural hearin [...] Available Start: 06-19-2024 End: 06-19-2024 [facility] Start: 06-17-2024 End: 06-17-2024 Bamboo flowsheet Shelby Arenas DO Work Phone: [facility] Start: 06-17-2024 End: 06-17-2024 Bamboo flowsheet Shelby Arenas DO Work Phone: [facility] Start: 06-17-2024 End: 06-17-2024 Office outpatient new 60 minutes Shelby Arenas DO Work Phone: [facility] Comment on above: Malnutrition, unspec [...] 06-09-2024 End: 06-09-2024 ambulatory Moody POP Facility:[facility] [place] Start: 06-09-2024 End: 06-09-2024 Patient encounter procedure Moody POP [facility] Start: 06-03-2024 End: 06-04-2024 ambulatory Jassi ALEGRIA Facility:CD:[id number] Start: 06-03-2024 End: 06-03-2024 Patient encounter procedure Jassi ALEGRIA [facility] [place] Start: 05-29-2024 End: 05-29-2024 Patient encounter procedure DO González Kuns Work Phone: [facility] Main [place] Work Phone: Start: 05-29-2024 End: 05-29-2024 ambulatory DO González Kuns Work Phone: [facility] Work Phone: Start: 05-26-2024 End: [...] 04-30-2024 Patient encounter procedure Jassi R NILL [facility] [place] Start: 04-28-2024 ambulatory Jsasi NILL Facility:[facility] Pierce Start: 04-23-2024 End: 04-23-2024 ambulatory DO Gonzálezisaias Harriss Work Phone: [facility] Work Phone: Start: 04-23-2024 End: 04-23-2024 Departed Referred DO Gonzálezisaias Harriss Work Phone: [facility] Start: 04-23-2024 ambulatory Jassi NILL Facility:Rehana Johnson Start: 04-22-2024 End: 04-23-2024 ambulatory Jassi R NILL Facility:CD:[id number] Start: 04-21-2024 Non-patient / Non-visit DO Felipa tt Kuns Work Phone: [facility] Work Phone: Start: 04-11-2024 End: 04-11-2024 ambulatory DO González Kuns Work Phone: [facility] Work Phone: Start: 04-11-2024 End: 04-11-2024 Departed Referred DO González Kuns Work Phone: [facility] Start: 02-11-2024 End: 02-11-2024 ambulatory Moody POP Facility:CD:[id number] Start: 01-21-2024 End: 01-21-2024 ambulatory Moody POP Facility:[facility] Start: 01-21-2024 End: 01-21-2024 Patient encounter procedure Moody POP [facility] Start: 09-12-2023 ambulatory Jassi ALEGRIA Facility:[facility] [place] Start: 08-26-2021 End: 08-26-2021 ambulatory AILIN BAKER Facility:[facility] Start: 02-23-2021 ambulatory AILIN BAKER Facility:H 1 Start: 12-06-2020 End: 12-07-2020 ambulatory ILAN TODD Facility:[facility] Start: 10-07-2020 Encounter for genera l adult medical examination without abnormal findings AILIN BAKER [facility] Start: 10-01-2020 End: 10-02-2020 ambulatory AILIN BAKER Facility:[facility] Start: 10-01-2020 End: 10-02-2020 Encounter for general adult medical examination without abnormal findings AILIN BAKER Facility:[facility] Start: 2017 End: 08-03-2017 Ambulatory PROVIDER UNKNOWN Facility:[facility] Start: 07-24-2017 End: 07-25-2017 Ambulatory DEFAULT PHYSICIAN Facility:[facility] Start: 07-19-2017 End: 07-20-2017 Ambulatory DEFAULT PHYSICIAN Facility:[facility] Start: 06-18-2017 End: 06-19-2017 Ambulatory DEFAULT PHYSICIAN Facility:[facility] Procedures Date Procedure Procedure Detail [...] above: Performed By: #### P SASC #### [facility] [address] [address] [address] Forrest Lauren Start: 10-01-2020 PSA screening AILIN KHAN Comment on above: Performed By: #### U TARIK, CMP, T7, PSASC, TSH, LIPID #### [facility] [address] [address] Matias Rivas Start: 08-06-2013 Colonoscopy Moody ASHER Start: 08-06-2004 Neoplasm of brain (disorder) Moody POP Back structure, excl uding neck (body structure) Moody POP Removal of acoustic neuroma Jassi ALEGRIA Spinal arthrodesis Jassi INFANTE Tonsillectomy Moody POP Plan of Treatment Date Care Activity Detail Author Start: 07-31-2025 Tobacco Screening Tobacco Screening [facility] Start: 07-29-2025 Adult BMI Screening Adult BMI Screen ing [facility] Start: 07-29-2025 Tobacco Screening Tobacco Screening [facility] Start: 04-20-2025 End: 04-20-2025 Patient encounter procedure 04/20/2025 10:00 AM EDT Office Visit Radiation Oncology [address] [place] [address] Rg Winston MD [address] [place] [address] 4 month follow up Radiation Oncology Comment on above: 4 month follow up Start: 04-06-2025 Influenza vaccination Influenz a Vaccine (Season Ended) [facility] Start: 12-18-2024 End: 12-18-2024 Patient encounter procedure 12/18/2024 10:30 AM EDT Office Visit Radiation Oncology [address] [place] [address] Rg Winston MD [address] [place] [address] final radiation follow up Radiation Oncology Comment on above: final radiation foll ow up Start: 12-15-2024 End: 12-15-2024 Patient encounter procedure 12/15/2024 4:00 PM EDT Office Visit Radiation Oncology [address] [place] [address] Rg Winston MD [address] [place] [address] final radiation follow up Radiation Oncology Comment on above: final radiation foll ow up Start: 11-19-2024 End: 11-19-2024 Patient encounter procedure 11/19/2024 10:00 AM EDT Office Visit Radiation Oncology [address] [place] [address] Rg Winston MD [address] [place] [address] Location: [facility] Radiation Oncology Comment on above: Location: [facility] Start: 11-17-2024 End: 11-17-2024 Patient encounter procedure 11/17/2024 9:45 AM EDT Appointment Radiation Oncology [address] [place] [address] rt axilla/ neck Radiation Oncology Comment on above: rt axilla/ neck Start: 11-14-2024 End: 11-14-2024 Patient encounter procedure 11/14/2024 2:15 PM EDT Education Nutrition Therapy [address] [place] [address] [place] [address] Nutrition consult Nutrition Therapy Comment on above: Nutrition consult Start: 11-14-2024 End: 11-14-2024 Patient encounter procedure 11/14/2024 9:45 AM EDT Appointment Radiation Oncology [address] [place] [address] rt axilla/ neck Radiation Oncology Comment on above: rt axilla/ neck Start: 11-13-2024 End: 11-13-2024 Patient encounter procedure 11/13/2024 9:45 AM EDT Appointment Radiation Oncology [address] [place] [address] rt axilla/ neck Radiation Oncology Comment on above: rt axilla/ neck Start: 11-12-2024 End: 11-12-2024 Patient encounter procedure Radiation Oncology Comment on above: rt axilla/ neck Location: [facility] Start: 11-11-2024 End: 11-11-2024 Patient encounter procedure 11/11/2024 9:45 AM EDT Appointment Radiation Oncology [address] [place] [address] rt axilla/ neck Radiation Oncology Comment on above: rt axilla/ neck Start: 11-10-2024 End: 11-10-2024 Patient encounter procedure 11/10/2024 9:45 AM EDT Appointment Radiation Oncology [address] [place] [address] rt axilla/ neck Radiation Oncology Comment on above: rt axilla/ neck Start: 11-07-2024 End: 11-07-2024 Patient encounter procedure 11/07/2024 9:45 AM EDT Appointment Radiation Oncology [address] [place] [address] rt axilla/ neck Radiation Oncology Comment on above: rt axilla/ neck Start: 11-06-2024 End: 11-06-2024 Patient encounter procedure 11/06/2024 9:45 AM EDT Appointment Radiation Oncology [address] [place] [address] rt axilla/ neck Radiation Oncology Comment on above: rt axilla/ neck Start: 11-05-2024 End: 11-05-2024 Patient encounter procedure Radiation Oncology Comment on above: rt axilla/ neck Location: [facility] Start: 11-04-2024 End: 11-04-2024 Patient encounter procedure 11/04/2024 9:45 AM EDT Appointment Radiation Oncology [address] [place] [address] [place] [address] rt axilla/ neck Radiation Oncology Comment on above: rt axilla/ neck Start: 11-03-2024 End: 11-03-2024 Patient encounter procedure 11/03/2024 3:45 PM EDT Office Visit [facility] [place] [address] Jassi Yanes MD [address] [place] [address] [facility] Start: 10-21-2024 End: 10-21-2024 Patient encounter procedure Radiation Oncology Comment on above: [place] AXILLA Axilla- would like m chencho Start: 10-20-2024 End: 10-20-2024 Patient encounter procedure Radiation Oncology Comment on above: [place] AXILLA- SA R PT Axilla- would like m hcencho- ANN PT Start: 10-07-2024 End: 10-07-2024 Patient encounter procedure 10/07/2024 1:30 PM EST Office Visit Radiation Oncology [address] [place] [address] [place] [address] Rg Winston MD [address] [place] [address] RT AXILLA/NECK W/ IV - CONSENT DONE Radiation Oncology Comment on above: RT AXILLA/NECK W/ IV - CONSENT DONE Start: 10-07-2024 End: 10-07-2024 Nursing evaluation of patient and report 10/07/2024 1:15 PM EST Nurse Visit Radiation Oncology [address] [place] [address] Ina, Nurse Radt [address] [place] [address] Nurse Visit Radiation Oncology Comment on above: Nurse Visit Start: 09-26-2024 End: 09-26-2024 Nutrition therapy 09/26/2024 1:30 PM EST Education Nutrition Therapy [address] [place] [address] Margo Schumacher, BRITTANY [address] [place] [address] Arrived Nutrition Therapy Comment on above: Arrived Start: 09-19-2024 End: 09-19-2024 Clinical Support 09/19/2024 9:00 AM EST Clinical Support [facility] [address] [facility] [place] [address] Pilar Avina, RIVAS [address] [place] [address] [facility] Start: 09-05-2024 Screening for malign ant neoplasm of colon [facility] Start: 09-04-2024 End: 09-04-2024 Patient encounter procedure [facility] Start: 09-01-2024 End: 09-01-2024 ambulatory [facility] Comment on above: Arrived Start: 08-29-2024 End: 08-29-2024 ambulatory 08/29/2024 9:00 AM EST Treatment [facility] [address] [facility] [address] [place] [address] Aurea Sanchez, SUPERVISOR KENNEL [facility] Start: 08-27-2024 End: 08-27-2024 ambulatory 08/27/2024 9:00 AM EST Treatment [facility] [address] [place] [address] [place] [address] Aurea Sanchez, SUPERVISOR KENNEL [facility] Start: 08-22-2024 End: 08-22-2024 ambulatory [facility] Comment on above: Polyneuropathy (Prim benoit Dx); Poor balance; Weakness of both lower extremities Start: 08-07-2024 End: 08-07-2025 Cobalamin (Vitamin B12) [Mass/volume] in Serum or Plasma Vitamin B12 Lab Routine Lymphoma, unspecified body region, unspecified lymphoma type (CMS/HCC) Expected: 08/07/2024 (Approximate), Expires: 08/07/2025 [facility] Comment on above: Expected: 08/07/2024 (Approximate), Expires: 08/07/2025 Start: 08-07-2024 End: 08-07-2025 Copper, serum Copper, serum Lab Routine Lymphoma, unspecified body region, unspecified lymphoma type (CMS/HCC) Expected: 08/07/2024 (Approximate), Expires: 08/07/2025 [facility] Comment on above: Expected: 08/07/2024 (Approximate), Expires: 08/07/2025 Start: 08-07-2024 End: 08-07-2025 Hemoglobin A1c/Hemoglobin.total in Blood Hemoglobin A1c Lab Routine Lymphoma, unspecified body region, unspecified lymphoma type (CMS/HCC) Expected: 08/07/2024 (Approximate), Expires: 08/07/2025 [facility] Work Phone: Comment on above: Expected: 08/07/2024 [...] 08-06-2024 Advance Directive Discussion Advance Directive Discussion [facility] Start: 07-10-2024 End: 07-10-2024 Patient encounter procedure [facility] Comment on above: Arrived Start: 07-02-2024 End: 07-02-2024 Patient encounter procedure [facility] Comment on above: Arrived Start: 06-27-2024 End: 06-27-2024 Patient encounter procedure 06/27/2024 9:00 AM EST Office Visit [facility] [address] [facility] [place] [address] Lillian Nagel, AUD [address] [place] [address] Arrived [facility] Comment on above: Arrived Start: 06-17-2024 End: 06-17-2025 EMG 2 Extremities EMG 2 Extremities Neurology Routine Weakness Expected: 06/17/2024, Expires: 06/17/2025 [facility] Work Phone: Comment on above: Expected: 06/17/2024 , Expires: 06/17/2025 Start: 06-16-2024 End: 06-16-2024 Patient encounter procedure 06/16/2024 3:00 PM EST [facility] [address] [place] [address] [facility] Start: 06-05-2024 End: 06-05-2024 Patient encounter procedure 06/05/2024 11:00 AM EDT Office Visit [facility] [address] [phone] Shelby Arenas, [address] [place], [place] [id number] [facility] Start: 04-06-2024 Covid-19 Vaccine ( season) Covid-19 Vaccine ( season) [facility] Start: 04-06-2024 Influenza vaccination [facility] Start: 2021 Fall Risk Screening Fall Risk Screen ing [facility] Start: 07-19-2018 Pneumococcal Vaccine : 50+ (2 of 2 - PCV) Pneumococcal Vaccine: 50+ (2 of 2 - PCV) [facility] Start: 2016 RSV Vaccine (1 - Ris k 60-74 years 1-dose series) RSV Vaccine (1 - Risk 60-74 years 1-dose series) [facility] Start: 2011 Prostate specific an tigen measurement Prostate Cancer Screening Discussion [facility] Start: 10-02-2008 Diabetes Screening Diabetes Screenin g [facility] Start: 2006 Administration of varicella zoster vaccine Zoster (Shingles) Vaccine (1 of 2) [facility] Start: 2006 Shingrix Vaccine (1 of 2) Olivares grix Vaccine (1 of 2) [facility] Start: 2001 Prostate specific an tigen measurement Prostate Cancer Screening Discussion [facility] Start: 2001 Screening for malign ant neoplasm of colon [facility] Start: 1991 Lipid panel Lipid Screening [facility] Start: 1975 Administration of varicella zoster vaccine Zoster (Shingles) Vaccine (1 of 2) [facility] Start: 1975 DTaP,Tdap and Td Vac cines (1 - Tdap) DTaP,Tdap and Td Vaccines (1 - Tdap) [facility] Start: 1975 Shingrix Vaccine (1 of 2) Olivares grix Vaccine (1 of 2) [facility] Start: 1975 Urine microalbumin profile DTaP,Tdap,Td Vaccine (1 - Tdap) [facility] Start: 1974 Anxiety Screening Anxiety Screening [facility] Start: 1974 Depression Screening Depression Scre ening [facility] Start: 1974 Hepatitis C screening Hepatitis C Sc reening [facility] Start: 1968 Depression Screening Depression Scre ening [facility] Start: 1961 Covid-19 Vaccine (#1) Covid-19 Vacci ne (#1) [facility] Auditory function tests Auditory function tests Audiology Routine 05/26/2024 1:35 PM EDT [facility] Work Phone: Payers Date Payer Category Payer Medicare [employer] MEDICARE [id number] 2023 Medicare (Managed Care) [id number] 2023 Private Health Insurance [id number] 1959 [facility] [id number] 1959 Medicare [id number] 1959 Self-pay 1956 Unknown [id number] 2.16.840.1.726871.3.579. 2.593 1956 Unknown [id number] 2.16.840.1.044922.3.579. 2.593 1956 Unknown [id number] 2.16.840.1.875943.3.579. 2.593 1956 Unknown [id number] 2.16.840.1.722396.3.579. 2.593 1956 Unknown [id number] 2.16.840.1.093509.3.579. 2.727 1956 Unknown [id number] 2.16.840.1.684845.3.579. 2.727 1956 Unknown [id number] 2.16.840.1.464502.3.579. 2.727 1956 Unknown [id number] 2.16.840.1.579914.3.579. 2.727 1956 Unknown [id number] 2.16.840.1.476484.3.579. 2.727 1956 Unknown [id number] 2.16.840.1.256223.3.579. 2.727 1956 Unknown [id number] 2.16.840.1.678745.3.579. 2.727 1956 Unknown [id number] 2.16.840.1.153680.3.579. 2.727 1956 Unknown [id number] 2.16.840.1.867585.3.579. 2.1259 1956 Unknown [id number] 2.16.840.1.798734.3.579. 2.9 1956 Unknown [id number] 2.16.840.1.191558.3.579. 2.1258 1956 Unknown [id number] 2.16.840.1.308716.3.579. 2.1258 1956 Unknown [id number] 2.16.840.1.657112.3.579. 2.1258 1956 Unknown [id number] 2.16.840.1.637644.3.579. 2.1258 1956 Unknown [id number] 2.16.840.1.965293.3.579. 2.1258 1956 Unknown [id number] 2.16.840.1.180843.3.579. 2.1258 1956 Unknown [id number] 2.16.840.1.466785.3.579. 2.1258 1956 Unknown [id number] 2.16.840.1.110861.3.579. 2.1259 Private Health Insurance [facility] [id number] Unknown Unknown [place] BC/BS [id number] Unknown [id number] 2.16.840.1.338041.3.579. 2.531 Unknown [id number] 2.16840.1.731034.3.579. 2.531 Unknown [id number] 2.16840.1.313802.3.579. 2.531 Social History Date Type Detail Facility Start: 01-21-2024 End: 09-25-2024 Tobacco smoking status Never smoked tobacco (finding) [facility] Tobacco smoking status Never [facility] Start: 07-29-2024 End: 09-25-2024 Sex Assigned At Male [facility] Start: 1955 Sex Assigned At Male F [facility] Tobacco smoking status NHIS Tobacco smoking consumption unknown [facility] Start: 1955 Sex assigned at Not on file [facility] Start: 07-29-2024 End: 09-25-2024 Tobacco use and exposure Smokeless tobacco non-user [facility] Start: 07-31-2024 Alcoholic beverage intake Lifetime non-drinker (finding) [facility] Start: 07-29-2024 End: 09-25-2024 History of Social function [facility] Start: 05-15-2024 Sex Male (finding) [facility] Start: 05-15-2024 Gender identity Identifies as male gender (finding) [facility] Start: 05-15-2024 Sexual orientation Heterosexual (fin ding) [facility] Start: 09-25-2024 End: 11-05-2024 Alcoholic beverage intake Ex-drinker (finding) [facility] NEGATED: Highlighted rowStart: NINF History of tobacco use Passive smoker [facility] Functional Status Date Assessment Result Facility 06-03-2024 Functional Status N/A [facility] [place] 04-30-2024 Functional Status N/A [facility] [place] 01-21-2024 Functional Status N/A [facility] Clinical Notes 01-21-2024 to 04-03-2025 Rg [...] understanding and agreed with plan of care [facility] 03-23-2025 Note [facility] Subjective Nabeel Tran is a [...] placement and then was admitted to the [facility] on 06/13/2024 with atrial fibrillation and [...] TAKE 1 TABLET (more content not included)... [facility] 12-18-2024 Note HNO ID: [id number] Author: RG WINSTON MD Service: ? Author [...] under the care of Dr. Donnelly at [facility] and repeat pet imaging after the [...] result of the inadequacies/shortcomings of said technology/software. [facility] 12-18-2024 History of Present illness Narrative Radiation Oncology - Follow Up Note PATIENT NAME: Nabeel Tran PATIENT Signed by: Rg Winston MD This document has been created with the use of voice recognition technology. It may contain inaccuracies, misspellings, inaccurate syntax or inappropriate word context that are a result of the inadequacies/shortcomings of said technology/software. documented in this encounter [facility] 12-09-2024 Telephone encounter Note I left another message for Nabeel to return my call. Ana Paula Chauhan RN [facility] 12-09-2024 Miscellaneous Notes I left another message for Nabeel to return my call. Ana Paula Chauhan RN I called and left a message for Nabeel to call back for an update post radiation completion. Ana Paula Chauhan RN documented in this encounter [facility] 12-02-2024 Telephone encounter Note I called and left a message for Nabeel to call back for an update post radiation completion. Ana Paula Chauhan RN [facility] 11-17-2024 Note HNO ID: [id number] Author: RG WINSTON MD Service: ? Author Type: Physician Type: Progress Notes Filed: 11/27/2024 04:40 Note Text: [facility] Radiation Oncology Department RADIATION ONCOLOGY - [...] under the care of Dr. Donnelly at [facility] and repeat pet imaging after the [...] AM Electronically Signed cc: Sonia Donnelly MD ([place]) Ailin Green, LATASHA [facility] [facility], [place] [address] [facility] 11-14-2024 Note Education (NUTRSA) NABEEL TRAN ([id number]) 1955 M Date Time Provider Department 11/14/24 2:15 PM MARGO SCHUMACHER Reason for Visit: Nutrition Telephone [2013] Cmt: No answer Visit Diagnosis:Hodgkin lymphoma, unspecified Hodgkin lymphoma type, unspecified body region (HCC) [C81.90] Order(s):CONSULT TO ONCOLOGY NUTRITION [8087113] Order #: [id number]: 1 During your visit today, we recorded [...] Encounter Status:Closed by MARGO SCHUMACHER on 11/17/24 [facility] 11-14-2024 Note HNO ID: [id number] Author: MARGO SCHUMACHER RD Service: ? Author Type: Registered Dietitian Type: Progress Notes Filed: 11/17/2024 08:01 Note Text: Oncology Nutrition Therapy Reassessment I have communicated my name and active licensure. The patient's identity and physical location were verified at the time of this visit. Either the patient or their legal representative phlebotomy services has been informed of the risks and benefits of -- and alternatives to -- treatment through a remote evaluation and consents to proceed with the evaluation remotely. 1415- called pt for scheduled phone appointment. No answer, left message with return contact information. Signed by: Margo Schumacher RD, JUSTINE MOURA [facility] 11-14-2024 History of Present illness Narrative Oncology Nutrition Therapy Reassessment I have communicated my name and active licensure. The patient's identity and physical location were verified at the time of this visit. Either the patient or their legal representative phlebotomy services has been informed of the risks and benefits of -- and alternatives to -- treatment through a remote evaluation and consents to proceed with the evaluation remotely. 1415- called pt for scheduled phone appointment. No answer, left message with return contact information. Signed by: Margo Schumacher RD, JUSTINE MOURA documented in this encounter [facility] 11-13-2024 Note HNO ID: [id number] Author: RG WINSTON MD Service: ? Author [...] under the care of Dr. Donnelly at [facility] and repeat pet imaging after the third cycle on 09/08/2024 noted excellent metabolic response ([place] 3). COURSE: Consolidative AREA TREATED: Right axilla/neck CURRENT DOSE: 28606 cGy in 18 fx PLANNED DOSE: 3600 [...] radiation treatment as planned. Rg Winston MD [facility] 11-13-2024 History of Present illness Narrative [...] under the care of Dr. Donnelly at [facility] and repeat pet imaging after the third cycle on 09/08/2024 noted excellent metabolic response (Deauville 3). COURSE: Consolidative AREA TREATED: Right axilla/neck CURRENT DOSE: 28889 cGy in 18 fx PLANNED DOSE: 3600 [...] Rg Winston MD documented in this encounter [facility] 11-05-2024 Note HNO ID: [id number] Author: RG WINSTON MD Service: ? Author [...] under the care of Dr. Donnelly at [facility] and repeat pet imaging after the [...] investigate if it persists. Rg Winston MD [facility] 11-05-2024 History of Present illness Narrative Radiation Oncology - On Treatment Review (OTR) Note PATIENT NAME: Nabeel Tran PATIENT Rg Winston MD documented in this encounter [facility] 10-29-2024 Note HNO ID: [id number] Author: RG WINSTON MD Service: ? Author [...] under the care of Dr. Donnelly at [facility] and repeat pet imaging after the [...] radiation treatment as planned. Rg Winston MD [facility] 10-29-2024 History of Present illness Narrative [...] under the care of Dr. Donnelly at [facility] and repeat pet imaging after the [...] Rg Winston MD documented in this encounter [facility] 10-21-2024 Note HNO ID: [id number] Author: RG WINSTON MD Service: ? Author [...] under the care of Dr. Donnelly at [facility] and repeat pet imaging after the [...] the course of treatment. Rg Winston MD [facility] 10-21-2024 History of Present illness Narrative [...] under the care of Dr. Donnelly at [facility] and repeat pet imaging after the [...] Rg Winston MD documented in this encounter [facility] 10-07-2024 History of Present illness Narrative NABEEL TRAN [id number] 10/07/2024 [facility] Radiation Oncology Department SIMULATION NOTE DATE OF SIMULATION: 10/07/2024 THERAPIST: Marjan Werner MACHINE: [place] [facility] DIAGNOSIS: Other classical Hodgkin lymphoma, lymph nodes [...] SHELIAT 56:24 PM documented in this encounter [facility] 10-07-2024 History of Present illness Narrative NABEEL TRAN W [id number] 10/07/2024 [facility] Department of Radiation Oncology Treatment Planning [...] M.D. 2:58 PM documented in this encounter [facility] 10-07-2024 Note HNO ID: [id number] Author: RG WINSTON MD Service: ? Author Type: Physician Type: Progress Notes Filed: 10/08/2024 18:24 Note Text: NABEEL TRAN [id number] 10/07/2024 [facility] Radiation Oncology Department SIMULATION NOTE DATE OF SIMULATION: 10/07/2024 THERAPIST: Marjan Werner MACHINE: [place] [facility] DIAGNOSIS: Other classical Hodgkin lymphoma, lymph nodes [...] Rg Winston M.D. / CDT 56:24 PM [facility] 10-07-2024 Note HNO ID: [id number] Author: RG WINSTON MD Service: ? Author Type: Physician Type: Progress Notes Filed: 10/20/2024 12:58 Note Text: NABEEL TRAN [id number] 10/07/2024 [facility] Department of Radiation Oncology Treatment Planning [...] Electronically Signed Rg Winston M.D. 2:58 PM [facility] 10-01-2024 Telephone encounter Note Called and spoke to Nabeel's . She confirmed his appointment times for 10/07/24 with an arrival of 1:00 PM and no special instructions. A nurse visit was added to the schedule for 1:15PM Mady CUEVAS [facility] 10-01-2024 Miscellaneous Notes Called and [...] Coty Chan, RN documented in this encounter [facility] 10-01-2024 Telephone encounter Note Sim scheduled on 10/07/24 at 1:30pm PSS - Please schedule nurse visit at 1:15 & notify pt of 1:00pm arrival time, no special instructions. Thanks! RT Jaylen(R)(T) [facility] Work Phone: 09-26-2024 Instructions Margo [...] peanut butter, etc. documented in this encounter [facility] 09-26-2024 Note Education (NUTRSA) NABEEL TRAN ([id number]) 1955 M Date Time Provider Department 09/26/24 [...] Encounter Status:Closed by MARGO SCHUMACHER on 09/26/24 [facility] 09-26-2024 Telephone encounter Note Rad ed and Nutri scheduled [facility] 09-26-2024 Note HNO ID: [id number] Author: MARGO SCHUMACHER RD Service: ? Author Type: Registered Dietitian Type: Progress Notes Filed: 09/26/2024 13:51 Note Text: Oncology Nutrition Therapy Initial Assessment I have communicated my name and active licensure. The patient's identity and physical location were verified at the time of this visit. Either the patient or their legal representative phlebotomy services has been informed of the risks and [...] dacarbazine) Medical Oncologist: Dr. Donnelly at the [facility] Radiation Oncologist: Dr. Winston PMHx: insulin dependent diabetes per Pt is [place] but is able to verify his name [...] Dosing Weight: 85.4 kg Estimated kilocalorie needs: 5637-8613 kilocalories determined by 25-30 kcal/kg Estimated protein needs: 85-111 grams determined by 1.0-1.3 g/kg Dosing weight Estimated fluid needs: ~1097-1906 milliliters based on 1 mL per kcal [...] ondansetron orally disin (more content not included)... [facility] 09-26-2024 History of Present illness Narrative Oncology Nutrition Therapy Initial Assessment I have communicated my name and active licensure. The patient's identity and physical location were verified at the time of this visit. Either the patient or their legal representative phlebotomy services has been informed of the risks and [...] dacarbazine) Medical Oncologist: Dr. Donnelly at the [facility] Radiation Oncologist: Dr. Winston PMHx: insulin dependent diabetes per Pt is [place] but is able to verify his name [...] Dosing Weight: 85.4 kg Estimated kilocalorie needs: 3483-4946 kilocalories determined by 25-30 kcal/kg Estimated protein needs: 85-111 grams determined by 1.0-1.3 g/kg Dosing weight Estimated fluid needs: ~6519-6283 milliliters based on 1 mL per kcal [...] 15 minutes Signed by: Margo Schumacher RD, VESSEL TRAFFIC OFFICER, LD documented in this encounter [facility] 09-25-2024 Note HNO ID: [id number] Author: RG WINSTON MD Service: ? Author Type: Physician Type: Progress Notes Filed: 10/21/2024 08:06 Note Text: Radiation Oncology - New Patient/Consult Note PATIENT NAME: Nabeel Tran PATIENT REQUESTING PHYSICIAN: Dr. 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 He was accompanied today by his family. Final recommendations will be communicated back to the requesting physician by way of the shared medical record, or letter to requesting physician via US mail. HISTORY OF PRESENT ILLNESS: Mr. Tran is a 69-year old gentleman [place], [place] with a history of hearing loss [...] atypical lymphoproliferative disorder after second review through [facility]. A second core biopsy was obtained [...] has 2 children, and lives in the [place], [place] area. 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 He denies tobacco or alcohol use. RADIATION [...] under the care of Dr. Donnelly at [facility] and repeat pet imaging after the third cycle on 09/08/2024 noted excellent metabolic response (more content not included)... [facility] 09-25-2024 History of Present illness Narrative Images from the original note were not included. Radiation Oncology - New Patient/Consult Note PATIENT NAME: Nabeel Tran PATIENT Signed: Rg Winston MD I spent a total of 60 minutes on the date of the service which included preparing to see the patient, tbuo-vw-yjoy patient care, and counseling and educating the [...] Coty Chan RN documented in this encounter [facility] 09-25-2024 History of Present illness Narrative Radiation Therapy - Patient Education Note PATIENT NAME: Nabeel Tran PATIENT September 25, 2024 [facility] [place] FACILITY/LOCATION: [facility] READINESS TO LEARN Cognitive Ability: Alert and [...] Coty Chan RN documented in this encounter [facility] 09-25-2024 Note HNO ID: [id number] Author: COTY CHAN RN Service: ? Author Type: Registered Nurse Type: Progress Notes Filed: 09/26/2024 08:31 Note Text: Radiation Therapy - Patient Education Note PATIENT NAME: Nabeel Tran PATIENT September 25, 2024 [facility] [place] FACILITY/LOCATION: [facility] READINESS TO LEARN Cognitive Ability: Alert and [...] Radiation therapist. Signed by: Coty Chan RN [facility] 09-25-2024 Telephone encounter Note Rad Ed today Dietary Eval Schedule Simulation treating R Axilla and Neck with IV Contrast- plan for possible 5 point mask- 20 Fx Sim on 10/06 Consent is Signed *Pt does have onbody glucose monitor-- he and were instructed on need to remove and of need to do finger stick blood sugars* Plan start 10/20 Coty Chan RN [facility] 09-25-2024 Note HNO ID: [id number] Author: COTY CHAN RN Service: ? Author [...] throughout. and pt aware. Coty Chan RN [facility] 09-25-2024 Note Education (MC) NABEEL TRAN ([id number]) 1955 M Date Time Provider Department 09/25/24 [...] Encounter Status:Closed by COTY CHAN on 09/26/24 [facility] 09-23-2024 Telephone encounter Note Called to [...] w/ referring provider continuation could be suitable. [facility] 09-23-2024 Miscellaneous Notes Called to check on [...] could be suitable. documented in this encounter [facility] 09-19-2024 History of Present illness Narrative AUDIOLOGIC [...] worse than when it was tested at [facility] in May 2024. Otoscopic Evaluation: Right Ear: Unremarkable Left Ear: Unremarkable Immittance Measures: Right Ear: DNT Left Ear: Type A Pure Tone Audiometry: Right Ear: DNT, known profound SNHL for 20+ years, well documented Left Ear: Moderate sloping to severe SNHL Reliability: good Speech Audiometry: SRT/SUPERVISOR KENNEL in good agreement for the left ear [...] his ongoing cancer treatment. Katarina Chew, DIANE-A Hiv Counselor documented in this encounter [facility] 09-15-2024 Note [place] [facility] Subjective Nabeel Tran is a [...] placement and then was admitted to the [facility] on 06/13/2024 with atrial fibrillation and [...] Reactions Jardiance [Empagl (more content not included)... [facility] 09-08-2024 Miscellaneous Notes MRI Brain in May 2024 with no left sided abnormalities noted. Right IAC enhancement, right cochlear and CN 7 enhancement. Please schedule patient for follow up with Dr. Yanes. documented in this encounter [facility] 09-08-2024 Telephone encounter Note MRI Brain in May 2024 with no left sided abnormalities noted. Right IAC enhancement, right cochlear and CN 7 enhancement. Please schedule patient for follow up with Dr. Yanes. [facility] 09-08-2024 Miscellaneous Notes Ok Cooper, doesn't look like we have the MRI brain report. Can you look into it? Thank you documented in this encounter [facility] 09-08-2024 Telephone encounter Note Ok Cooper, doesn't look like we have the MRI brain report. Can you look into it? Thank you [facility] 09-01-2024 History of Present illness Narrative [...] to be instructed in home exercise program. Kiln Feeder Goals: To be met in 10 weeks [...] sign below. Date: documented in this encounter [facility] 08-20-2024 History of Present illness Narrative Physical [...] to be instructed in home exercise program. Longterm Goals: To be met in 10 weeks [...] sign below. Date: documented in this encounter [facility] 08-15-2024 Miscellaneous Notes Thank you Allison. I [...] me to do. documented in this encounter [facility] 08-15-2024 Telephone encounter Note Thank you Allison. I do not see a report for the MRI Brain. Do we have that radiology report? [facility] 08-15-2024 Telephone encounter Note I just looked and it looks like they never faxed that one or it got lost. I can call to have them resend it or it looks like it is in under the imaging. Let me know what you would like me to do. [facility] 08-13-2024 Miscellaneous Notes Ailin Green's Office - [place] called 08/13, patient saw Dr. Ibarra on 07/29/24. [place]ne needs office notes faxed to [phone]. Faxed over office not to number provided. documented in this encounter [facility] 08-13-2024 Telephone encounter Note Ailin Green's Office - [place] called 08/13, patient saw Dr. Ibarra on 07/29/24. Daphne needs office notes faxed to [phone]. [facility] 08-13-2024 Telephone encounter Note Faxed over office not to number provided. [facility] 08-12-2024 Miscellaneous Notes Just wanted to check if anyone had gotten his head and neck imaging from the outside hospital back? documented in this encounter [facility] 08-12-2024 Telephone encounter Note Just wanted to check if anyone had gotten his head and neck imaging from the outside hospital back? [facility] 08-07-2024 History of Present illness [...] , wrist extensors , wrist flexor , aeronautical research engineer strength 4-/5. LUE Strength deltoid , biceps , triceps , wrist extensors , wrist flexor , aeronautical research engineer strength 4-/5. RLE Strength illopsoas, quadriceps, tibialis [...] reflex 1+ . Flowers's sign negative. Coordination: Hzshri-rk-ojrs testing and rapid alternating movements are normal [...] and return instructions documented in this encounter [facility] 07-29-2024 History of Present illness Narrative Images from the original note were not included. [facility] [address] [facility] [id number] SUBJECTIVE: Patient ID (1955): Nabeel Tran is a 68 y.o. male presents today for Chief Complaint Patient presents with Cerumen Impaction Bilateral Hearing Loss Laterality HPI: Nabeel is presenting today with bilateral profound hearing loss. He had an acoustic neuroma resected at the [facility] about 20 years ago on [...] HISTORY: Past Medical History: Diagnosis Date Cancer ([facility]) Past Surgical History: Procedure Laterality Date [...] schwannoma resected 20 years ago at the [facility] presenting for left-sided sensorineural hearing loss, ongoing for several months, concurrent with a diagnosis of Hodgkin's lymphoma, currently undergoing treatment outside of [facility], no records available. Recommend imaging, family member [...] this chart were generated using voice recognition [employer] dictation software. Although every effort was made to ensure the accuracy of this automated foot piece assembler, some errors in foot piece assembler may have occurred. documented in this encounter [facility] 07-10-2024 History of Present illness Narrative Images from the original note were not included. Reason for Appointment: EMG Patient: Nabeel Tran : 1955 EMG Computer: [employer] Referring Physician: Dr. Shelby Arenas EMG: [facility] financial services professional: Gilbert Gaffney RT(R) Office Location: [place] Reason for EMG: c/o numbness/tingling in bilateral feet. Hx of surgery to low back. Pt currently undergoing chemo. Hx of DM. Taking Eliquis. Comments: Procedure was explained to the patient & who expressed understanding. Patient appeared to have tolerated the test well despite some discomfort due to the nature of the test. documented in this encounter [facility] 07-02-2024 History of Present illness Narrative HAP: [...] offered the opportunity to try a different tin container straightener to see if he would perceive success. Patient would prefer to return the instruments. A return was processed in [employer] portal. Informed patient he will be refunded by [employer]. Gave his the [employer] number in the event they needed to discuss the refund process. Patient to let us know if he would like to try [employer] devices again in the future. documented in this encounter [facility] 06-27-2024 History of Present illness Narrative HAP: [...] the trial period. documented in this encounter [facility] 06-19-2024 Note [place] [facility] Subjective Nabeel Tran is a [...] morning., Disp: , (more content not included)... [facility] 06-17-2024 History of Present illness Narrative Images from the original note were not included. Chief complaint: Unsteadiness and generalized weakness and falls Subjective Nabeel Tran, 68 y.o., male Nabeel presents today for a neurological consultation at the request of Ailin Green CNP for unsteady gait, generlized weakness, falls. Pt was seen at [facility] labs, U/A, PET scan, ECG and [...] , wrist extensors , wrist flexor , aeronautical research engineer strength 4-/5. LUE Strength deltoid , biceps , triceps , wrist extensors , wrist flexor , aeronautical research engineer strength 4-/5. RLE Strength illopsoas, quadriceps, tibialis [...] reflex 2+ . Flowers's sign negative. Coordination: Ugvlqo-kj-ilpy testing and rapid alternating movements are normal [...] and return instructions documented in this encounter [facility] 06-16-2024 History of Present illness Narrative Patient [...] The right CROS was coupled to 2S asset administrator with a 10 mm open dome. The left hearing aid was coupled to a Signia custom canal lock earmold. Patient does not use a smart phone. Patient did not want to schedule a follow up due to his health and many appointments. Patient's states she will call for follow up. Cosigned by FRANKIE Spears at 06/17/2024 11:28 AM EST documented in this encounter [facility] 06-03-2024 Note General Surgery Offi ce/Clinic Note [...] nodes of axilla and upper limb) plan ngxsyn-e-mrqv insertion for chemotherapy; informed consent obtained. Ancef [...] Tobacco Use:. House (more content not included)... [facility] Comment on above: Result Comment: [...] is eligible for hearing aids through his [facility] [employer] Benefit. Recommend a custom mold for the left ear. Ear impression taken of left ear without incident. Pt ordered mid level technology. Order completed in [employer] portal and pt scheduled for HAF 06-16-24 in [place]. documented in this encounter [facility] 02-15-2024 Hospital Discharge instructions Follow Up Care 02/15/2024 09:24:50 With:DONN ELLIS, Moody Aranda, URL Address: [facility] [address] [place] [address]- When: Unknown [facility] 01-21-2024 Note Chief Complaint Referral *LUTs [...] neoplasm of prostat (more content not included)... [facility] Comment on above: Result Comment: [...] urethra. Follow these instructions at home: Take eenp-pam-khheewg and prescription medicines only as told by [...] provider. Document Revised: 02/08/2022 Document Reviewed: 02/08/2022 [employer] Patient Education 2022 [employer]. Follow Up Care 09/13/2023 09:26:56 With:DONN ELLIS, Moody Aranda, URL Address: [facility] [address], [place] [address]- When: Unknown [facility] Evaluation + Plan note No data available for this section [facility] Evaluation + Plan note Future Appointments Appointment Date:06/09/2024 10:45:00 AM Scheduled Provider:Moody POP MD Location:[facility] Appointment Type:URO Office Visit [facility] Evaluation note No assessment inform ation available [facility] Work Phone: Evaluation note Diagnosis Sudden [...] body region (CMS-HCC) [facility] Diagnosis Lymphoma, unspecified body [...] both ears- Primary [facility] [place] [facility] Diagnosis Hodgkin lymphoma, unspecified Hodgkin lymphoma type, unspecified body region (HCC)- Primary [facility] Hodgkin lymphoma, unspecified Hodgkin lymphoma type, unspecified body region (HCC)- Primary [facility] Diagnosis Hodgkin lymphoma, unspecified Hodgkin lymphoma type, unspecified body region (HCC)- Primary documented in this encounter [facility] note* Diagnosis Hodgkin lymphoma, unspecified Hodgkin lymphoma type, unspecified body region (HCC)- Primary documented in this encounter [facility] note* Diagnosis Hodgkin lymphoma, unspecified Hodgkin lymphoma type, unspecified body region (HCC)- Primary documented in this encounter [facility] note* Diagnosis Hodgkin lymphoma, unspecified Hodgkin lymphoma type, unspecified body region (HCC) documented in this encounter [facility] note* Diagnosis Hodgkin lymphoma, unspecified Hodgkin lymphoma type, unspecified body region (HCC)- Primary [facility] Discharge instructions No data available for this section [facility] InstructionsNot on filedocumented in this encounter [facility] filedocumented in this [facility] filedocumented in this encounter [facility] filedocumented in this encounter [facility] No data available for this section [facility] reason for visit Narrative* Consultation (Routine) - Closed Specialty Diagnoses / Procedures Referred By Celine horton Referred To Contact Neurology Diagnoses Unsteadiness on feet Weakness Procedures FL OFFICE/OUTPATIENT NEW LOW MDM 30 MINUTES Ailin Green MD [address] [place] [address] Phone: tel:[phone] fax: Nabeel New MD [address] [address] Phone: tel: fax: Referral ID Status Reason Start Date Expiration Date V isits Requested Visits Authorized [id number] Closed Consult and Treat 05/16/2024 11/12/2024 1 1 [facility] N[facility]* Consultation (Routine) - Pending Review Specialty Diagnoses / Procedures Referred By Celine horton Referred To Contact Physical Therapy Diagnoses Polyneuropathy Procedures FL OFFICE/OUTPATIENT NEW HIGH MDM 60 MINUTES Shelby Arenas DO [address] [place] [address] Phone: tel: fax: [facility] [address] [facility] [address] [place] [address] Phone: tel: fax: Referral ID Status Reason Start Date Expiration Date Visits Requested Visits Authorized [id number] Pending Review Specialty Services Required 08/20/2024 02/03/2025 1 3 [facility] Narrative* Consultation (Routine) - Authorized Specialty Diagnoses / Procedures Referred By Celine t Referred To Contact Physical Therapy Diagnoses Polyneuropathy Procedures [place] OFFICE/OUTPATIENT NEW HIGH MDM 60 MINUTES Shelby Arenas, [address] [place] [address] Phone: tel: fax: [facility] [address] [address] Phone: tel: fax: Referral ID Status Reason Start Date Expiration Date Visits Requested Visits Authorized [id number] Authorized Specialty Services Required 08/20/2024 02/03/2025 6 [...] section and content) DATE CREATED AUTHOR 01/29/2018 [facility] [facility] DATE CREATED AUTHOR AUTHOR'S ORGANIZ ATION 09/01/2021 [facility] DATE CREATED AUTHOR AUTHOR'S ORGANIZ ATION 06/08/2024 [facility] DATE CREATED AUTHOR AUTHOR'S ORGANIZ ATION 06/11/2024 [facility] DATE CREATED AUTHOR AUTHOR'S ORGANIZ ATION 09/02/2024 [facility] DATE CREATED AUTHOR AUTHOR'S ORGANIZ ATION 01/14/2025 [facility] DATE CREATED AUTHOR AUTHOR'S ORGANIZ ATION 04/04/2025 [facility] Patient Care team informatio n (unrecognized [...] Member Role Status Dates Jassi Alegria MD [facility] Attending Provider Active Start: April 23, 2024 End: April 23, 2024 Team Status: Inactive Member Role Status Dates Sonia Donnelly MD Attending Provider Active St art: May 29, 2024 End: May 29, 2024 MEHRDAD Bardales Primary Care Provider Active Start: May 29, 2024 End: May 29, 2024 Team Status: Active Member Role Status Dates González Moon DO Primary Care Provider Active Varnish Blender Relationship Specialty Start Date End Date Ailin Green MD [address] [place] [address] Referring Physician Family Medicine 05/16/24 Ailin Green MD [address] [place], [place] [phone] Referring Physician Family Medicine 05/26/24 Varnish Blender Relationship Specialty Start Date End Date Ailin Green MD [address] [place] [address] Referring Physician Family Medicine 05/16/24 Ailin Green MD [address] [place] [address] Referring Physician Family Medicine 05/26/24 Varnish Blender Relationship Specialty Start Date End Date Jah Damian MD [address] [place] [address] PCP - General Family Medicine 06/16/24 Ailin Green MD [address] [place] [address] Referring Physician Family Medicine 05/16/24 Ailin Green MD [address] [place] [phone] Referring Physician Family Medicine 05/26/24 Varnish Blender Relationship Specialty Start Date End Date Jah Damian MD [address] [place] [address] PCP - General Family Medicine 06/16/24 Ailin Green MD [address] [place] [address] Referring Physician Family Medicine 05/16/24 Ailin Green MD [address] [place] [address] Referring Physician Family Medicine 05/26/24 Varnish Blender Relationship Specialty Start Date End Date Jah Damian MD [address] [place] [address] PCP - General Family Medicine 06/16/24 Ailin Green MD [address] [place] [address] Referring Physician Family Medicine 05/16/24 [place] [address] [place] [address] Referring Physician Family Medicine 05/26/24 Varnish Blender Relationship Specialty Start Date End Date Jah Damian MD [address] [place] [address] PCP - General Family Medicine 06/16/24 [place] [address] [place] [address] Referring Physician Family Medicine 05/16/24 [place] [address] [place], [place] [phone] Referring Physician Family Medicine 05/26/24 Varnish Blender Relationship Specialty Start Date End Date Jah Damian MD [address] [place] [phone] PCP - General Family Medicine 06/16/24 Ailin Green MD [address] [place] [address] Referring Physician Family Medicine 05/16/24 Ailin Green MD [address] [place] [address] Referring Physician Family Medicine 05/26/24 Varnish Blender Relationship Specialty Start Date End Date Jah Damian MD [address] [place] [address] PCP - General Family Medicine 06/16/24 [place] [address] [place] [address] Referring Physician Family Medicine 05/16/24 Ailin Green MD [address] [place] [address] Referring Physician Family Medicine 05/26/24 Varnish Blender Relationship Specialty [place] [address] [place] [phone] PCP - General Family Medicine 06/16/24 Ailin Green MD [address] [place] [address] Referring Physician Family Medicine 05/16/24 Ailin Green MD [address] [place], [place] [phone] Referring Physician Family Medicine 05/26/24 Varnish Blender Relationship Specialty Start Date End Date Ailin Green MD [address] [place] [address] Referring Physician Family Medicine 05/16/24 Ailin Green MD [address] [place] [address] Referring Physician Family Medicine 05/26/24 Shelby Arenas DO [address] [address] Referring Physician Neurology 08/07/24 Varnish Blender Relationship Specialty Start Date End Date Ailin Green MD [address] [place] [address] Referring Physician Family Medicine 05/16/24 Ailin Green MD [address] [place] [address] Referring Physician Family Medicine 05/26/24 Shelby Arenas DO [address] [place] [phone] Referring Physician Neurology 08/07/24 Varnish Blender Relationship Specialty Start Date End Date Ailin Green MD [address] [place] [address] Referring Physician Family Medicine 05/16/24 Ailin Green MD [address] [place], [place] [phone] Referring Physician Family Medicine 05/26/24 Shelby Arenas DO [address] [place] [phone] Referring Physician Neurology 08/07/24 Varnish Blender Relationship Specialty Start Date End Date Ailin Green MD [address] [place], [place] [phone] Referring Physician Family Medicine 05/16/24 [place] [address] [place] [address] Referring Physician Family Medicine 05/26/24 Shelby Arenas DO [address] [address] Referring Physician Neurology 08/07/24 Varnish Blender Relationship Specialty Start Date End Date Ailin Green MD [address] [place] [address] Referring Physician Family Medicine 05/16/24 Ailin Green MD [address] [place] [address] Referring Physician Family Medicine 05/26/24 Shelby Arenas DO [address] [address] Referring Physician Neurology 08/07/24 Varnish Blender Relationship Specialty [place] [address] [place] [address] Referring Physician Family Medicine 05/16/24 [place] [address] [place] [address] Referring Physician Family Medicine 05/26/24 Shelby Arenas DO [address] [address] Referring Physician Neurology 08/07/24 Varnish Blender Relationship Specialty [place] [address] [place] [address] Referring Physician Family Medicine 05/16/24 Ailin Green MD [address] [place] [address] Referring Physician Family Medicine 05/26/24 Shelby Arenas DO [address] [address] Referring Physician Neurology 08/07/24 Varnish Blender Relationship Specialty [place] [address] [place] [address] Referring Physician Family Medicine 05/16/24 Ailin Green MD [address] [place] [address] Referring Physician Family Medicine 05/26/24 Shelby Arenas DO [address] [address] Referring Physician Neurology 08/07/24 Varnish Blender Relationship Specialty Start Date End Date Ailin Green MD [address] [place] [address] Referring Physician Family Medicine 05/16/24 Ailin Green MD [address] [place] [address] Referring Physician Family Medicine 05/26/24 Shelby Arenas DO [address] [address] Referring Physician Neurology 08/07/24 Varnish Blender Relationship Specialty Start Date End Date Ailin Green MD [address] [place] [address] Referring Physician Family Medicine 05/16/24 Ailin Green MD [address] [place] [address] Referring Physician Family Medicine 05/26/24 Shelby Arenas DO [address] [address] Referring Physician Neurology 08/07/24 Varnish Blender Relationship Specialty Start Date End Date Margo Schumacher RD [address] [place] [address] Registered Dietitian Nutrition 09/26/24 Varnish Blender Relationship Specialty Start Date End Date Margo Schumacher RD [address] [place] [address] Registered Dietitian Nutrition 09/26/24 Varnish Blender Relationship Specialty Start Date End Date Margo Schumacher RD [address] [place] [address] Registered Dietitian Nutrition 09/26/24 Varnish Blender Relationship Specialty Start Date End Date Margo Schumacher RD [address] [place] [address] Registered Dietitian Nutrition 09/26/24 Varnish Blender Relationship Specialty Start Date End Date Margo Schumacher RD [address] [place] [address] Registered Dietitian Nutrition 09/26/24 Varnish Blender Relationship Specialty Start Date End Date Margo Schumacher RD [address] [place] [address] Registered Dietitian Nutrition 09/26/24 Varnish Blender Relationship Specialty Start Date End Date Margo Schumacher RD [address] [place] [address] Registered Dietitian Nutrition 09/26/24 Varnish Blender Relationship Specialty Start Date End Date Margo Schumacher RD [address] [place] [address] Registered Dietitian Nutrition 09/26/24 Varnish Blender Relationship Specialty Start Date End Date Margo Schumacher RD [address] [place] [address] Registered Dietitian Nutrition 09/26/24 Varnish Blender Relationship Specialty Start Date End Date Ailin Green, [employer] [address] [place] [address] PCP - General Internal Medicine 12/18/[address] [place] [address] [place] [address] Registered Dietitian Nutrition 09/26/24 Goals (unrecognized section [...] or prosecute any alcohol or drug abuse patient.[facility] Center[facility] the event this information is protected by the Federal Confidentiality of Alcohol and Drug Abuse Patient Records regulations: The Federal rules restrict any use of the information to criminally investigate or prosecute any alcohol or drug abuse patient.[facility] CenterIn the event this information is protected by the Federal Confidentiality of Alcohol and Drug Abuse Patient Records regulations: The Federal rules restrict any use of the information to criminally investigate or prosecute any alcohol or drug abuse patient.[facility] CenterIn the event this information is protected by the Federal Confidentiality of Alcohol and Drug Abuse Patient Records regulations: The Federal rules restrict any use of the information to criminally investigate or prosecute any alcohol or drug abuse patient.[facility] CenterIn the event this information is protected by the Federal Confidentiality of Alcohol and Drug Abuse Patient Records regulations: The Federal rules restrict any use of the information to criminally investigate or prosecute any alcohol or drug abuse patient.[facility] CenterIn the event this information is protected by the Federal Confidentiality of Alcohol and Drug Abuse Patient Records regulations: The Federal rules restrict any use of the information to criminally investigate or prosecute any alcohol or drug abuse patient.[facility] CenterIn the event this information is protected by the Federal Confidentiality of Alcohol and Drug Abuse Patient Records regulations: The Federal rules restrict any use of the information to criminally investigate or prosecute any alcohol or drug abuse patient.[facility] CenterIn the event this information is protected by the Federal Confidentiality of Alcohol and Drug Abuse Patient Records regulations: The Federal rules restrict any use of the information to criminally investigate or prosecute any alcohol or drug abuse patient.[facility] CenterIn the event this information is protected by the Federal Confidentiality of Alcohol and Drug Abuse Patient Records regulations: The Federal rules restrict any use of the information to criminally investigate or prosecute any alcohol or drug abuse patient.[facility] CenterIn the event this information is protected by the Federal Confidentiality of Alcohol and Drug Abuse Patient Records regulations: The Federal rules restrict any use of the information to criminally investigate or prosecute any alcohol or drug abuse patient.[facility] CenterIn the event this information is protected by the Federal Confidentiality of Alcohol and Drug Abuse Patient Records regulations: The Federal rules restrict any use of the information to criminally investigate or prosecute any alcohol or drug abuse patient.[facility] CenterIn the event this information is protected by the Federal Confidentiality of Alcohol and Drug Abuse Patient Records regulations: The Federal rules restrict any use of the information to criminally investigate or prosecute any alcohol or drug abuse patient.[facility] CenterIn the event this information is protected by the Federal Confidentiality of Alcohol and Drug Abuse Patient Records regulations: The Federal rules restrict any use of the information to criminally investigate or prosecute any alcohol or drug abuse patient.[facility] CenterIn the event this information is protected by the Federal Confidentiality of Alcohol and Drug Abuse Patient Records regulations: The Federal rules restrict any use of the information to criminally investigate or prosecute any alcohol or drug abuse patient.[facility] CenterIn the event this information is protected by the Federal Confidentiality of Alcohol and Drug Abuse Patient Records regulations: The Federal rules restrict any use of the information to criminally investigate or prosecute any alcohol or drug abuse patient.[facility] FOR RECORDS PERTAINING TO PATIENTS [...] THE PRIMARY CLINICAL RECORDS. [facility] [employer] [facility]. provides no warranty or guarantee of the accuracy or completeness of information in this document.
[2025-04-23] MEDS: HEPARIN SODIUM (PORCINE) PF LOCK FLUSH 500 UNIT/5 ML SYRINGE IV (10:35)
--- NOTE | 2025-04-23 10:35 | CT_ITS ---
The [address] [address] Patient Name: NABEEL TRAN MRN: [id number] date: 1955 Sex: M Assigned Patient Location: CT Current Patient Location: LAB Accession/Order Number: [id number] Exam Date: 04/23/2025 10:20 Report Date: 04/23/2025 11:12 At the request of: JOAN HURLEY MD Procedure: CT abdomen w con CT CHEST AND ABDOMEN WITH INTRAVENOUS CONTRAST: CLINICAL HISTORY: Elevation Liver Levels, Nodular Sclerosis Hodgkin Lymphoma COMPARISON: 02/20/2025 chest, 12/15/2024 PET/CT and 04/21/2024 CT abdomen TECHNIQUE: Spiral images were obtained through the chest and abdomen following oral and intravenous administration of 100 mL of Omnipaque 300. Images of the chest were reviewed using both narrow and wide window settings. This CT exam was performed using one or more following dose reduction techniques: Automated exposure control, adjustment of the mA and/or kV according to patient size, or use of iterative reconstruction technique. There is a right-sided Desrdt-j-Jdfn catheter. The heart is top normal in size. No pericardial effusion is seen. There is mild coronary artery plaque. No aortic aneurysm or dissection is noted. There are calcified left hilar granulomas. There are similar distal paratracheal lymph nodes with short axis dimension up to 1 cm. No new adenopathy is seen. There is continued elevation of the left hemidiaphragm with adjacent atelectasis and/or scarring. There is also minimal dependent atelectasis at the right base and a small stable pleural-parenchymal opacity adjacent to the dome of the right hemidiaphragm laterally. Patchy nodular airspace opacities at the right upper lobe on the prior show interval dissipation though there is developing groundglass density in the area at this time. No pleural effusion or pneumothorax is seen. There is a calcified left lower lobe granuloma. Endplate spurring is visualized at the spine. No calcified gallstones are identified. No intrahepatic masses are seen. The spleen is normal in size and attenuation. The pancreas and adrenal glands show no acute findings. There are symmetric bilateral renal nephrograms, without hydronephrosis. There are multiple bilateral renal cysts, larger on the right measuring up to 4.6 cm in size. There is atherosclerotic plaque at the aorta, iliac and some of the visceral arteries. No enlarged lymph nodes are visualized. No ascites is seen. There is a tiny umbilical hernia containing fat. There are some small bowel loops which are top normal in caliber and contain air. There is mild gaseous distention of a high riding sigmoid colon on the right. There is mild stool within the remainder of the imaged colon. Left-sided colonic diverticula are visualized. There is slight lumbar dextroscoliotic curvature as well as degenerative changes and associated stenosis, greatest at L4-5. CT/CT chest w con IMPRESSION: GRANULOMATOUS CHANGES. CHANGING RIGHT UPPER LOBE PARENCHYMAL DISEASE FROM NODULAR CONSOLIDATION TO GROUNDGLASS DENSITY, DESCRIBED. ADDITIONAL STABLE ATELECTASIS AND/OR SCARRING. NONSPECIFIC BOWEL GAS PATTERN THAT MAY BE ILEUS. A SIMILAR APPEARANCE WAS PRESENT AT THE TIME OF THE COMPARISON CT ABDOMEN STUDY. MILD DIVERTICULOSIS. MULTIPLE RENAL CYSTS. NO PATHOLOGIC ADENOPATHY OR OTHER ACUTE FINDINGS. Impression dictated by: Evelyn Guidry M.D. 04/23/2025 11:12 AM Dictation Location: [place] [address] Electronically authenticated by: [id number] Y Date: 04/23/2025 11:12
--- NOTE | 2025-04-23 10:35 | CT_ITS ---
The [address] [address] Patient Name: NABEEL TRAN MRN: [id number] date: 1955 Sex: M Assigned Patient Location: CT Current Patient Location: LAB Accession/Order Number: [id number] Exam Date: 04/23/2025 10:20 Report Date: 04/23/2025 11:12 At the request of: JOAN HURLEY MD Procedure: CT abdomen w con CT CHEST AND ABDOMEN WITH INTRAVENOUS CONTRAST: CLINICAL HISTORY: Elevation Liver Levels, Nodular Sclerosis Hodgkin Lymphoma COMPARISON: 02/20/2025 chest, 12/15/2024 PET/CT and 04/21/2024 CT abdomen TECHNIQUE: Spiral images were obtained through the chest and abdomen following oral and intravenous administration of 100 mL of Omnipaque 300. Images of the chest were reviewed using both narrow and wide window settings. This CT exam was performed using one or more following dose reduction techniques: Automated exposure control, adjustment of the mA and/or kV according to patient size, or use of iterative reconstruction technique. There is a right-sided Yflbmf-o-Etll catheter. The heart is top normal in size. No pericardial effusion is seen. There is mild coronary artery plaque. No aortic aneurysm or dissection is noted. There are calcified left hilar granulomas. There are similar distal paratracheal lymph nodes with short axis dimension up to 1 cm. No new adenopathy is seen. There is continued elevation of the left hemidiaphragm with adjacent atelectasis and/or scarring. There is also minimal dependent atelectasis at the right base and a small stable pleural-parenchymal opacity adjacent to the dome of the right hemidiaphragm laterally. Patchy nodular airspace opacities at the right upper lobe on the prior show interval dissipation though there is developing groundglass density in the area at this time. No pleural effusion or pneumothorax is seen. There is a calcified left lower lobe granuloma. Endplate spurring is visualized at the spine. No calcified gallstones are identified. No intrahepatic masses are seen. The spleen is normal in size and attenuation. The pancreas and adrenal glands show no acute findings. There are symmetric bilateral renal nephrograms, without hydronephrosis. There are multiple bilateral renal cysts, larger on the right measuring up to 4.6 cm in size. There is atherosclerotic plaque at the aorta, iliac and some of the visceral arteries. No enlarged lymph nodes are visualized. No ascites is seen. There is a tiny umbilical hernia containing fat. There are some small bowel loops which are top normal in caliber and contain air. There is mild gaseous distention of a high riding sigmoid colon on the right. There is mild stool within the remainder of the imaged colon. Left-sided colonic diverticula are visualized. There is slight lumbar dextroscoliotic curvature as well as degenerative changes and associated stenosis, greatest at L4-5. CT/CT abdomen w con IMPRESSION: GRANULOMATOUS CHANGES. CHANGING RIGHT UPPER LOBE PARENCHYMAL DISEASE FROM NODULAR CONSOLIDATION TO GROUNDGLASS DENSITY, DESCRIBED. ADDITIONAL STABLE ATELECTASIS AND/OR SCARRING. NONSPECIFIC BOWEL GAS PATTERN THAT MAY BE ILEUS. A SIMILAR APPEARANCE WAS PRESENT AT THE TIME OF THE COMPARISON CT ABDOMEN STUDY. MILD DIVERTICULOSIS. MULTIPLE RENAL CYSTS. NO PATHOLOGIC ADENOPATHY OR OTHER ACUTE FINDINGS. Impression dictated by: Evelyn Guidry M.D. 04/23/2025 11:12 AM Dictation Location: [place] [address] Electronically authenticated by: [id number] Y Date: 04/23/2025 11:12
--- NOTE | 2025-04-23 10:41 | SUR.PREOP ---
1020 Confirmed pt has a power port . Swabbed site for 30 seconds and accessed with Cassidy needle good blood return noted and flushes easily with 10 cc NS. Secured with tegaderm. Pt given Ct IV contrast, tolerated it well and then port flushed with 10 cc NS and then 5 cc Heparin. Cassidy needle removed intact.
== END 2025-04-23 10:11 | disposition home or self-care (01) ==
LOC: CT 10:10
PROVIDERS: PCP Nurse Practitioner Family; Visit Provider Internal Medicine Hematology & Oncology
DX: C85.11 Unspecified B-cell lymphoma, lymph nodes of head, face, and neck (principal); R74.01 Elevation of levels of liver transaminase levels; D50.9 Iron deficiency anemia, unspecified; D64.9 Anemia, unspecified; C81.18 Nodular sclerosis Hodgkin lymphoma, lymph nodes of multiple sites; R11.2 Nausea with vomiting, unspecified; D70.1 Agranulocytosis secondary to cancer chemotherapy; Z79.899 Other long term (current) drug therapy
CPT/HCPCS: 71260; 74160; J1642; Q9967

== ENCOUNTER 2025-05-26 09:41 | Outpatient (OUT) | payer MEDICARE, SELFPAY ==
--- OUTSIDE RECORDS SUMMARY | 2025-05-26 09:49 | XMS_ITS | Clinical Summary ---
Author Organization [facility] Address [address] [place] [address] Care Team Providers Care Die Hardener Name Role Phone Ailin España CNP Primary Care Provider [phone] Allergies Active AllergyReactionsCriticalityNoted PzoqZushzljgOfkfzcrdeuuslNpelu33/22/2024 Medications MedicationSigDispense QuantityRefillsLast FilledStart DateEnd DateStatus metFORMIN (Glucophage) 1,000 mg tablet Take 1 tablet twice a day by oral route for 30 days.01/21/2024ctive Januvia 100 mg tablet Take 100 mg by mouth in the morning.01/21/2024ctive insulin glargine (Lantus) 100 unit/mL injection vial Inject under the skin at bedtime.Active Eliquis 5 mg tablet Take 5 mg by mouth twice a day.06/15/2024ctive dilTIAZem CD (Cardizem CD) 240 mg 24 hr capsule Take 240 mg by mouth in the morning.06/15/2024ctive liothyronine (Cytomel) 5 mcg tablet Take 10 mcg by mouth in the morning.Active pantoprazole (ProtoNix) 40 mg EC tablet 40 mg.06/17/2024ctive prochlorperazine (Compazine) 10 mg tablet every 8 (eight) hours if needed.05/27/2024ctive ondansetron (Zofran) 4 mg tablet every 8 (eight) hours if needed.05/27/2024ctive atorvastatin (Lipitor) 10 mg tablet Indications:Mixed hyperlipidemiaTAKE 1 TABLET BY MOUTH IN THE MORNING 90 tablet 5Active metoprolol tartrate (Lopressor) 50 mg tablet Indications:PAF (paroxysmal atrial fibrillation) (CMS/HCC),Primary hypertension Take 1 tablet (50 mg) by mouth two times daily. 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 tract txkevzxv82/10/2025 Diabetes njxzgadn05/10/9717Lbcwuxfstm94/10/2025History of brain tumor09/15/2024 Zdxtksvdiqywqe19/10/2025Lymphadenopathy, /10/2025Nodular sclerosis Hodgkin lymphoma of lymph nodes of upper igafzduhg48/10/2025Non-Hodgkin lymphoma 09/15/2024OAB (overactive bladder)09/15/2024Poor venous mcedoj9809/15/2024 Screening PSA (prostate specific antigen)09/15/2024OSA (obstructive sleep apnea) 02/25/2024Non-rheumatic mitral kwankcvutpihu30/22/2024Nonrheumatic aortic valve avvldhtiiwgwy30/22/2024rimary hyvryxbdikqq13/22/2024ulmonary arterial bdjdnedmruai12/15/2017 Encounters DateTypeDepartmentCare FvifHnpswannrjk17/28/2025Telephone [facility] [address] [place] [address] JaredPatria cardona MA 03/23/2025 10:15 AM EDTOffice Visit [facility] [address] [place] [address] Renato Staton MD Non-rheumatic mitral regurgitation (Primary Dx); PAF (paroxysmal atrial fibrillation) (CMS/HCC); Primary hypertension; Mixed hyperlipidemia; Nonrheumatic aortic valve stenosis; Nonrheumatic aortic valve insufficiency; ENE (obstructive sleep apnea)02/23/2025Orders Only [facility] [address] [place] [id number] ProviderOfelia MD from Last 3 Months Family History Medical HistoryRelationNameCommentsCoronary artery diseaseMotherRelationName StatusCommentsFatherDeceasedMotherDeceased Social History Tobacco UseTypesPacks/DayYears UsedDateSmoking Tobacco: NeverSmokeless Tobacco: NeverAlcohol UseStandard Drinks/WeekCommentsYes0 (1 standard drink = 0.6 oz pure alcohol)occasionalSex and Gender InformationValueDate RecordedSex Assigned at EbnmuXufj38/13/2025 2:03 PM EDTLegal KmtFxhl2102/02/2022 12:01 AM EDTGender XkcymcizDizt88/13/2025 2:03 PM EDTSexual OrientationHeterosexual or Straight 03/18/2025 2:03 PM EDT Last Filed Vital Signs Vital SignReadingTime TakenCommentsBlood Vqhgzrbq870/72003/23/2025 10:43 AM EDT Pwzil622403/23/2025 10:43 AM EDTTemperature--Respiratory Rate--Oxygen Saturation 97%03/23/2025 10:43 AM EDTInhaled Oxygen Concentration--Leqqcm35.8 kg (198 lb) 03/23/2025 10:43 AM ALFAtsxho138 cm (6' 2 )03/23/2025 10:43 AM EDTBody Mass Index25.42003/23/2025 10:43 AM EDT Plan of Treatment Health MaintenanceDue DateLast DoneCommentsCT Abzsmibhuzhd1956olonoscopy 1956Diabetes: Hemoglobin A1C1956FOBT1956Medicare Annual Wellness (AWV)1955 5343Mkvdvarhzxfnv1956OVID-19 Vaccine (#1)1961 Diabetes: Retinopathy Gvikovdbg31/28/1966Depression Erzpnbqbz15/28/1968Diabetes: Urine Protein Iooakszuj22/28/1975Zoster Vaccines (1 of 2)1975Adult Tetanus 1978Pneumococcal Vaccine: 50+ Years (2 of 2 - PCV)Fall Risk Yqnettdja30/28/9146HZO90/olorectal Cancer Screening 09/05/2024FIT-DNA5009/05/2021Influenza Vaccine (#1)2025HIB VaccinesAged OutNo longer eligible based on patient's age to complete this topic HPV VaccinesAged OutNo longer eligible based on patient's age to complete this topicIPV VaccinesAged OutNo longer eligible based on patient's age to complete this topicMeningococcal B VaccineAged OutNo longer eligible based on patient's age to complete this topicMeningococcal VaccineAged OutNo longer eligible based on patient's age to complete this topicRotavirus VaccinesAged OutNo longer eligible based on patient's age to complete this topic Insurance Care Teams Team MemberRelationshipSpecialtyStart DateEnd Ailin España CNP [address] [place] [address], [facility] [address] PCP - GeneralFamily Medicine02/25/24
--- OUTSIDE RECORDS SUMMARY | 2025-05-26 09:49 | XMS_ITS | Clinical Summary ---
Author Organization [facility] Address [id number] [address] [place] [address] Care Team Providers Care Biomedical Analytical Scientist Name Role Phone Unavailable Primary Care Provider Unavailabl e Allergies No known active allergies Medications MedicationSigDispense QuantityRefillsLast FilledStart DateEnd DateStatus dilTIAZem CD (CARDIZEM CD) 240 mg 24 hr capsule Take 1 capsule (240 mg total) by mouth in the morning.06/15/2024ctive liothyronine (CYTOMEL) 5 MCG tablet Take 2 tablets (10 mcg total) by mouth in the morning.Active metoprolol tartrate (LOPRESSOR) 25 mg tablet Take 2 tablets (50 mg total) by mouth in the morning and 2 tablets (50 mg total) before bedtime.07/17/2024ctive ondansetron ODT (ZOFRAN ODT) 4 mg disintegrating tablet Dissolve 1 tablet (4 mg total) on tongue as needed.05/21/2024ctive ELIQUIS 5 mg tablet Take 1 tablet (5 mg total) by mouth in the morning and 1 tablet (5 mg total) before bedtime.06/15/2024ctive pantoprazole (PROTONIX) 40 mg EC tablet Take 1 tablet (40 mg total) by mouth every morning before breakfast.06/17/2024 Active JANUVIA 100 mg tablet Take 1 tablet (100 mg total) by mouth in the morning.01/21/2024ctive sucralfate (CARAFATE) 1 gram tablet Take 1 tablet (1 g total) by mouth in the morning and 1 tablet (1 g total) at noon and 1 tablet (1 g total) in the evening and 1 tablet (1 g total) before bedtime.07/13/2024ctive Active Problems No known active problems Social History Tobacco UseTypesPacks/DayYears UsedDateSmoking Tobacco: NeverSmokeless Tobacco: Never Tobacco Cessation:Counseling Given: Not Answered Alcohol UseStandard Drinks/WeekCommentsNever0 (1 standard drink = 0.6 oz pure alcohol)Sex and Gender InformationValueDate RecordedSex Assigned at BirthMale 05/15/2024 2:41 PM EDTLegal AjsWgkn91/10/2024 2:40 PM EDTGender IdentityMale 05/15/2024 2:41 PM EDTSexual WnzgfioefynJimgqfvy71/10/2024 2:41 PM EDT Last Filed Vital Signs Vital SignReadingTime TakenCommentsBlood Pressure--Pulse--Oskweyqutmt85.3 ??C (97.3 ??F)07/29/2024 9:12 AM ESTRespiratory Rate--Oxygen Saturation--Inhaled Oxygen Concentration--Cqcglj66.2 kg (176 lb 12.8 oz)07/29/2024 9:12 AM ESTHeight 188 cm (6' 2 )07/29/2024 9:12 AM ESTBody Mass Index22.7109/29/2023 9:12 AM EST Plan of Treatment Health MaintenanceDue DateLast DoneCommentsDepression Jymcbmkgl40/28/1968 DTaP,Tdap and Td Vaccines (1 - Tdap)1975Zoster (Shingles) Vaccine (1 of 2) 1975Fall Risk Xxgakygnw81/28/2021Influenza Dadnizc9404/06/2025dult BMI Wzqqfvowy37Tobacco Itrdekhim95 [employer] Devices [place] [address]
--- OUTSIDE RECORDS SUMMARY | 2025-05-26 09:49 | XMS_ITS | Clinical Summary ---
Author Organization [facility] Address [address] [place] [address] Care Team Providers Care Manager Pipeline Name Role Phone Ailni España MD Unavailable [phone] Ailin España MD Unavailable Lucas Arenas DO Unavailable [phone] Allergies No known active allergies Medications MedicationSigDispense QuantityRefillsLast FilledStart DateEnd DateStatus atorvastatin (Lipitor) 10 MG tablet Take 10 mg by mouth Daily03/28/2024ctive Eliquis 5 MG tablet Take 5 mg by mouth in the morning and 5 mg before bedtime.06/15/2024ctive dilTIAZem CD (Cardizem CD) 240 MG 24 hr capsule Take 240 mg by mouth Daily06/15/2024ctive SITagliptin (Januvia) 100 MG tablet Take 100 mg by mouth DailyActive metFORMIN, OSM, (Fortamet) 1000 MG 24 hr tablet Take 1,000 mg by mouth in the evening. Take with meals Do not crush, chew, or split.Active losartan (Cozaar) 50 MG tablet Take 50 mg by mouth DailyActive liothyronine (Cytomel) 5 MCG tablet Take 10 mcg by mouth DailyActive insulin glargine (Lantus) 100 UNIT/ML injection Inject 20 Units under the skin at bedtimeActive metoprolol tartrate (Lopressor) 50 MG tablet Take 50 mg by mouth in the morning and 50 mg before bedtime.Active ondansetron (Zofran) 4 MG tablet Take 4 mg by mouth every 8 (eight) hours if needed for nausea or vomitingActive Social History Tobacco UseTypesPacks/DayYears UsedDateSmoking Tobacco: Never AssessedSex and Gender InformationValueDate RecordedSex Assigned at BirthNot on fileLegal Sex Male10/18/2022 6:49 PM EDTGender IdentityNot on fileSexual OrientationNot on file Last Filed Vital Signs Vital SignReadingTime TakenCommentsBlood Wksxwvgv35/62008/07/2024 10:05 AM EST Vrvim524808/07/2024 10:05 AM ESTTemperature--Respiratory Rate--Oxygen Saturation 96%08/07/2024 10:05 AM ESTInhaled Oxygen Concentration--Qjyoav93.3 kg (183 lb 9.6 oz)08/07/2024 10:05 AM GEOXfkgzu824 cm (6' 2 )06/17/2024 12:25 PM ESTBody Mass Index23.5706/17/2024 12:25 PM EST Plan of Treatment Not on file Insurance Care Teams Team MemberRelationshipSpecialtyStart DateEnd Date Ailin España MD [address] [place] [id number] Referring PhysicianFamily Ukofldki63/11/24 Ailin España MD [address] [place] [address] Referring PhysicianFamily Jxocyilo98/21/24 Lucas Arenas DO [address] [place], [place] [id number] Referring PhysicianNeurology1
--- OUTSIDE RECORDS SUMMARY | 2025-05-26 09:52 | XMS_ITS | CCD ---
Author Organization [facility] Care Team Providers Care Toll Mechanic Name Role Phone PHYSICIAN, DEFAULT Unavailable Unavailable PHYSICIAN, DEFAULT Unavailable Unavailable PHYSICIAN, DEFAULT Unavailable Unavailable PHYSICIAN, DEFAULT Unavailable Unavailable PHYSICIAN, DEFAULT Unavailable Unavailable PHYSICIAN, DEFAULT Unavailable Unavailable UNKNOWN, PROVIDER Unavailable Unavailable UNKNOWN, PROVIDER Unavailable Unavailable NEVILLE MATA Unavailable Unavailable NEVILLE MATA Unavailable Unavailable SAMUEL, AILIN Admitting Unavailable AILIN BAKER Attending Unavailable SMAUEL, AILIN Primary Care Unavailable SAMUEL, AILIN Admitting Unavailable SAMUEL, AILIN Attending Unavailable ELIANA BAKERELA Consulting Unavailable SAMUEL, AILIN Primary Care Unavailable AILIN BAKER Attending Unavailable NEVILLE MATA Primary Care Unavailable SAMUEL, AILIN Consulting Unavailable SAMUEL, AILIN Admitting Unavailable ILAN TODD Attending Unavailable ILAN TODD Consulting Unavailable ILAN TODD Admitting Unavailable SAMUEL, AILIN Primary Care Unavailable AMARIS WALKER Consulting Unavailable AILIN GREEN Primary Care Physician DO González Moon Primary Care Provider [phone] MD Nabeel Strange Attending Provider MD Jassi Alegria Attending Provider [phone] Peter ELLIS Ailin Unavailable Peter ELLIS Ailin [...] Unavailable Jah Damian MD Primary Care Provider [phone] Unavailable Primary Care Provider Unavailbraeden Arenas DO, Christopher Unavailable [phone] CLEVE QUINN Attending Unavailable DEEPA, CHRISTOPHER Referring Unavailable YANNA HARRISON Attending Unavailable DEEPA, CHRISTOPHER Attending Unavailable PETER, AILIN Referring Unavailable LILLIAN NAGEL Attending Unavailable LILLIAN NAGEL Attending Unavailable DEEPA, CHRISTOPHER Attending Unavailable DEEPA, CHRISTOPHER Attending Unavailable CLEVE QUINN Attending Unavailable DEEPA, CHRISTOPHER Referring Unavailable AUREA SANCHEZ Attending Unavailable DEEPA, CHRISTOPHER Referring Unavailable Unavailable Primary Care Provider UnavailMargo Garcia RD Unavailable [phone] Ailin Green CNP S Primary Care Provider [phone] CATRACHITO, RG Referring Unavailable CATRACHITO, RG Referring [...] Unavailable JEROD STATON Attending Unavailable Allergies Allergy ClassificationReported Allergen(s)Allergy TypeDate of OnsetReaction(s) Facility (2 sources)No Known Allergies; Translations: [No Known Allergies]Propensity to adverse reactions (disorder)75-28-2171[facility] Repository (1 source)Unable to AssessDrug allergy (disorder)36-14-8320[facility] ([facility] source)No Known Medication Allergies; Translations: [No Known Medication Allergies]Propensity to adverse reactions (disorder)[facility] Repository (15 sources)no latex allergy [Other]Propensity to adverse xqesagcjy81-57-[address] [facility] (1 source)OTHER; Translations: [OTHER]Propensity to adverse reactions (disorder) 51-31-0207[facility] (1 source)empagliflozin; Translations: [EMPAGLIFLOZIN]Drug Evmbuhc05-62-4141 [facility] Repository Medications Current Medications MedicationDrug Class(es)DatesSig (Normalized)Sig (Original)amLODIPine 10 mg oral tablet (1 source)Dihydropyridine Calcium Channel BlockerStart: 48-05-5086dtCNMYHhwg 10 mg Tab 90 tab(s), 0 Refill(s), Refills(s) 0 Start Date: 01/21/24 Status: Ordered apixaban 5 mg oral tablet (20 sources)Factor Xa InhibitorStart: 94-08-0952xspjtewv (ELIQUIS) 5 mg tab(s) Take 5 mg by mouth. 06/15/2024 Activeatorvastatin 10 mg oral tablet (20 sources)HMG-CoA Reductase InhibitorStart: 03-28-2024 End: 85-61-4853hucntsmzdiep (LIPITOR) 10 mg tablet Take 10 mg by mouth. 03/28/2024 03/28/2025 ActiveStart: 55-63-2015azkkyshuvvpx 40 mg Tab 90 tab(s), 0 Refill(s), Refills(s) 0 Start Date: 01/21/24 Status: Orderedcarvedilol 6.25 mg oral tablet (4 sources)alpha-Adrenergic Erick, beta-Adrenergic BlockerStart: 04-30-2024 take 1 tablet by mouth once dailycarvedilol 6.25 mg Tab 6.25 mg = 1 tab(s), Oral, Daily, Refills(s) 0 Start Date: 04/30/24 Status: OrderedStart: 01-21-2024 carvedilol 6.25 mg Tab 0 Refill(s), Refills(s) 0 Start Date: 01/21/24 Status: Umszbba76 hr dilTIAZem hydrochloride 240 mg extended release oral capsule (20 sources)Calcium Channel BlockerStart: 22-30-7868uicQQOMdw CD (CARDIZEM CD, CARTIA XT) 240 mg 24 hr capsule Take 240 mg by mouth. 06/15/2024 ActiveStart: 77-78-7282wpvj 1 capsule by mouth every twenty-four hours in the morning dilTIAZem CD (CARDIZEM CD) 240 mg 24 hr capsule Take 1 capsule (240 mg total) by mouth in the morning. 06/15/2024 Activeempagliflozin 25 mg oral tablet (1 source)Sodium-Glucose Cotransporter 2 InhibitorStart: 89-78-4576Yotafcrzz 25 mg oral tablet 90 tab(s), 0 Refill(s), Refills(s) 0 Start Date: 01/21/24 Status: Ordered3 ml insulin glargine 100 unt/ml pen injector (20 sources)Insulin AnalogStart: 38-71-3561Mpdlga Solostar Pen 100 units/mL subcutaneous solution 20 unit(s), SubCutaneous, Once a day (at bedtime), Refills(s) 0 Start Date: 04/25/24 Status: Orderedinsulin glargine (LANTUS) 100 unit/mL injection Inject subcutaneously. Activeinject 20 [IU] by subcutaneous injection at bedtimeinsulin glargine (Lantus) 100 UNIT/ML injection Inject 20 Units under the skin at bedtime Activeliothyronine sodium 0.005 mg oral tablet (20 sources)l-TriiodothyronineStart: 70-07-8940mdss 1 tablet by mouth once daily liothyronine 5 mcg Tab 5 mcg = 1 tab(s), Oral, Daily, Refills(s) 0 Start Date: 05/27/24 Status: Orderedliothyronine (CYTOMEL) 5 mcg tablet Take 10 mcg by mouth. Activelosartan potassium 100 mg oral tablet (20 sources)Angiotensin 2 Receptor BlockerStart: 99-42-0100ycoc 1 tablet by mouth once dailylosartan 100 mg Tab 100 mg = 1 tab(s), Oral, Daily, Refills(s) 0 Start Date: 01/21/24 Status: Orderedtake 1 tablet by mouth once dailylosartan (Cozaar) 50 MG tablet Take 50 mg by mouth Daily ActivemetFORMIN hydrochloride 1000 mg oral tablet (20 sources)BiguanideStart: 36-49-2673mtaz 1 tablet by mouth once dailymetformin 1000 mg Tab 1,000 mg = 1 tab(s), Oral, Daily, Refills(s) 0 Start Date: 01/21/24 Status: Orderedtake 1 tablet by mouth at mealtime, then take 1 tablet by mouth every twenty-four hoursmetFORMIN, OSM, (Fortamet) 1000 MG 24 hr tablet Take 1,000 mg by mouth in the evening. Take with meals Do not crush, chew, or split. Activemetoprolol tartrate 25 mg oral tablet (20 sources)beta-Adrenergic BlockerStart: 96-07-2506uhnlhhzvxm tartrate, short acting, (LOPRESSOR) 25 mg tablet Take 50 mg by mouth. 07/17/2024 Activetake 1 tablet by mouth in the morningmetoprolol tartrate (Lopressor) 50 MG tablet Take 50 mg by mouth in the morning and 50 mg before bedtime. Activeondansetron 4 mg oral tablet (20 sources)Serotonin-3 Receptor AntagonistStart: 29-65-4629rhwlraqrwpc 4 mg Tab as directed, Refills(s) 0 Start Date: 05/27/24 Status: OrderedStart: 05-21-2024 take 1 tablet by mouth every twenty-four hours as neededondansetron orally disintegrating (ZOFRAN ODT) 4 mg disintegrating tablet Take 4 mg by mouth at bedtime as needed. 05/21/2024 Activepantoprazole 40 mg delayed release oral tablet (20 sources)Proton Pump InhibitorStart: 91-12-2194tkiklzbuvatg DR (PROTONIX) 40 mg tablet 40 mg. 06/17/2024 Activeprochlorperazine 10 mg oral tablet (2 sources)PhenothiazineStart: 23-63-4266dwxtwmzszmffvvua 10 mg Tab as directed, Refills(s) 0 Start Date: 05/27/24 Status: OrderedSITagliptin 100 mg oral tablet (20 sources)Dipeptidyl Peptidase 4 InhibitorStart: 97-11-8489iunr 1 tablet by mouth in the morningJANUVIA 100 mg tablet Take 1 tablet (100 mg total) by mouth in the morning. 01/21/2024 Activesucralfate 1000 mg oral tablet (7 sources)Aluminum ComplexStart: 79-95-9971jgow 1 tablet by mouth at bedtime sucralfate (CARAFATE) 1 gram tablet Take 1 tablet (1 g total) by mouth in the morning and 1 tablet (1 g total) at noon and 1 tablet (1 g total) in the evening and 1 tablet (1 g total) before bedtime.07/13/2024 Activetamsulosin hydrochloride 0.4 mg oral capsule (4 sources)alpha-Adrenergic BlockerStart: 01-21-2024 End: 44-56-3261owni 1 capsule by mouth once dailyFlomax 0.4 mg Cap 0.4 mg = 1 cap(s), Oral, Daily, Stop taking if experiencing dizziness or lightheadedness., X 90 day(s), # 90 cap(s), Refills(s) 3, Pharmacy: [facility], 187, cm, 01/21/24 11:48:00 EDT, Height/Length Dosing, 118, kg, 01/21/24 11:48:00 EDT, Weight Dosing Start Date: 01/21/24Stop Date: 01/15/25 Status: OrderedtraMADol hydrochloride 50 mg oral tablet (2 sources)Opioid AgonistStart: 61-18-6101tumYBOME 50 mg Tab as directed, Refills(s) 0 Start Date: 05/27/24 Status: Ordered Completed/Discontinued Medications MedicationDrug Class(es)DatesSig (Normalized)Sig (Original)ciprofloxacin 500 mg oral tablet (4 sources)Quinolone AntimicrobialStart: 22-86-7034Iqfrt 500 mg Tab 500 mg = 1 tab(s), Oral, As Directed, Patient to take 1 tab the day before procedure and the 2nd tab the day of procedure once completed, # 2 tab(s), Refills(s) 0, Pharmacy: [id number], 187, cm, 01/21/24 11:48:00 EDT, Height/Length Dosing, 118, kg, 01/21/24 11:48:00EDT, Weight Dosing Start Date: 01/21/24 Status: OrderedDULoxetine 60 mg delayed release oral capsule (2 sources)Serotonin and Norepinephrine Reuptake InhibitorStart: 02-08-2007 End: 89-46-1111xquc 1 capsule by mouth once dailyduloxetine (CYMBALTA) 60 mg ORAL CpDR Take one(1) capsule daily. 90 3 02/08/2007 09/25/2024 Discontinued (Course of therapy completed)Start: 11-12-2006 End: 46-55-9026KVRCYHBW 30 MG CAP Indications: Headache(784.0) , Trigeminal nerve disorder, unspecified Take one(1) capsule daily for 2 weeks then bid 60 6 11/12/2006 09/25/2024 Discontinued (Course of therapy completed)eletriptan 40 mg oral tablet (1 source)Serotonin-1b and Serotonin-1d Receptor AgonistStart: 02-13-2007 End: 28-77-8308cxxiyvnimf (RELPAX) 40 mg ORAL Tab Indications: Headache(784.0) , Trigeminal nerve disorder, unspecified take 1 po prn severe GEORGES, may repeat once after 2 hrs (max 2/d, 3 days/week) 36 3 02/13/2007 09/25/2024 Discontinued (Course of therapy completed)esomeprazole 40 mg delayed release oral capsule (1 source)Proton Pump InhibitorStart: 02-13-2007 End: 55-32-4209gksx 1 capsule by mouth once dailyesomeprazole (NEXIUM) 40 mg ORAL CpDR Indications: Headache(784.0) , Trigeminal nerve disorder, unspecified Take one(1) capsule daily. 90 3 02/13/2007 09/25/2024 Discontinued (Discontinued by anotherHealth Care Provider)ibuprofen 200 mg oral tablet (1 source)Nonsteroidal Anti-inflammatory DrugStart: 10-08-2006 End: 07-66-8585OLPSIXITI 200 MG TAB 0 10/08/2006 09/25/2024 Discontinued (Course of therapy completed)indomethacin 75 mg extended release oral capsule (1 source)Nonsteroidal Anti-inflammatory DrugStart: 02-08-2007 End: 90-55-2597diijkbnufzoa SR (INDOCIN SR) 75 mg ORAL CpSR Indications: Headache(784.0) , Trigeminal nerve disorder, unspecified after prednisone taper, take 1 po bid 180 3 02/08/2007 09/25/2024 Discontinued (Course of therapy completed)predniSONE 10 mg oral tablet (1 source)Start: 11-12-2006 End: 20-54-6632OPFJYSUNFI 10 MG TAB Indications: Headache(784.0) , Trigeminal nerve disorder, unspecified take 60mg po qd for 10 days then decrease by 10mg every 3 days 1 course 0 11/12/2006 09/25/2024 Discontinued(Course of therapy completed) Problems Active Problems Problem ClassificationProblemDateDocumented DateEpisodic/ChronicAnxiety disorders (3 sources)Farxkwx77-56-7210ZvosqskNjamdm; other and unspecified primary (2 sources)History of benign schwannoma; Translations: [Personal history of other benign neoplasm]29-92-5753JjkdizauJxulxml dysrhythmias (2 sources)Paroxysmal atrial fibrillation; Translations: [Paroxysmal atrial fibrillation]Onset: 54-45-6655NaqjryeOamsmaqp mellitus without complication (5 sources)Type 2 diabetes mellitus without complications; Translations: [Diabetes mellitus]Onset: 000368-86-5720MhkbbkaKnddiegs mellitus without complication (9 sources)Other abnormal glucose; Translations: [Glycosuria]Onset: 08-26-2021 EpisodicDisorders of lipid metabolism (7 sources)Hyperlipidemia, unspecified; Translations: [Hyperlipidemia]Onset: 024282-92-8005AzvrrxcYxxrdmuoh hypertension (8 sources)Essential (primary) hypertension; Translations: [Hypertensive disorder]Onset: 923205-49-8119DidtrqxZshxv valve disorders (10 sources)Nonrheumatic mitral (valve) insufficiency; Translations: [Non- rheumatic mitral regurgitation ]Onset: 469853-72-2975KwgjvlvPikmuds`s disease (13 sources)Nodular sclerosis Hodgkin lymphoma, 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; Translations: [Hodgkin disease, nodular sclerosis of lymph nodes of upper limb]Onset: 47-70-9258AlpynsqAmqhoqa`s disease (2 sources)Hodgkin`s nidbeus08-08-7705Gdqgipuvhtf of prostate (6 sources)Benign prostatic hypertrophy with outflow obstruction; Translations: [Benign prostatic hyperplasia with lower urinary tract symptoms]Onset: 72-99-9165ZcsndygKrwxarokudnef (4 sources)Localized enlarged lymph nodes; Translations: [Localized enlarged lymph nodes]Onset: 28-74-8609WmsgejkjQpvahbu and fatigue (3 sources)Asthenia; Translations: [Weakness]53-37-6268NtdvwrdjMsq-Hodgkin`s lymphoma (7 sources)Non-Hodgkin's lymphoma (clinical); Translations: [Non-Hodgkin lymphoma, unspecified, 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]Onset: 05-29-2024 65-12-3166OkvsdxaRubecjebspk deficiencies (4 sources)Undernutrition; Translations: [Unspecified protein-calorie malnutrition]27-27-2045UhljdnwLxcqa and unspecified benign neoplasm (4 sources)Acoustic neuroma; Translations: [Benign neoplasm of cranial nerves] 77-96-0044IynbnwuZguaeoh on above:Outside Source Comment: Comment on above: removed- right earOther circulatory disease (2 sources)Difficult venous vzuxvh22-82-4868GwebhtjqCcugz connective tissue disease (3 sources)Other symptoms and signs involving the musculoskeletal system; Translations: [Other musculoskeletalsymptoms referable to limbs]08-20-2024 EpisodicOther diseases of bladder and urethra (2 sources)Detrusor overactivity; Translations: [Overactive bladder]Onset: 01-12-7732GfgndotQvaat diseases of bladder and urethra (4 sources)Overactive wqpcyci75-39-0685EfuowbeMzebp diseases of veins and lymphatics (1 source)Disorder of vein; Translations: [Other specified disorders of veins] Onset: 22-57-4002YstzyoepUvoxy ear and sense organ disorders (5 sources)Sensorineural hearing loss, bilateral; Translations: [Sensorineural hearing loss, bilateral]26-98-4855TmhjebbAyqww ear and sense organ disorders (1 source)Asymmetrical sensorineural hearing loss; Translations: [Sensorineural hearing loss, bilateral]52-42-8399RmisvnzLbydv ear and sense organ disorders (3 sources)Sudden idiopathic hearing loss; Translations: [Sudden idiopathic hearing loss, left ear]59-96-0414YhxcqvebAusmj nervous system disorders (8 sources)Polyneuropathy; Translations: [Polyneuropathy, unspecified]07-10-2024 ChronicOther nervous system disorders (1 source)H/O: brain ghxedzlw55-36-2776IajtzmsoWoyed nervous system disorders (3 sources)Poor balance; Translations: [Other abnormalities of gait and mobility]52-06-0775VxioxnkfKcmynglia heart disease (3 sources)Pulmonary arterial btiuoecgwbmv50-71-0657MphgfphGkcerrhd codes; unclassified (4 sources)Sleep -83-5161LuftjauNkidpjlrurm failure; insufficiency; arrest (1 source)Dependence on supplemental oxygen; Translations: [DEPENDENCE ON SUPPLEMENTAL OXYGEN]Onset: 21-19-8574ZrdkvuhTggmsfkskdfx (3 sources)Obstructive sleep apnea (adult) (pediatric); Translations: [OBSTRUCTIVE SLEEP APNEA (ADULT) (PEDIATRIC)]Onset: 12-70-9487Kclmdqx Unclassified (8 sources)Abnormal result of other cardiovascular function study; Translations: [Encounter for screening for malignant neoplasm of prostate]Onset: 2017 EpisodicUnclassified (2 sources)Unknown / UNK(Unknown)Onset: 18-15-6431Qausqqqbjfrl (1 source)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; Translations: [INTERMEDIATE (CURRENT) USE OF ORAL 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 DRUGS]Onset: 2017 Unclassified (4 sources)Patient encounter wkamgn48-49-8246Jtoyi infection (1 source)COVID-19; Translations: [COVID-19]Onset: 12-08-2020 Past or Other Problems Problem ClassificationProblemDateDocumented DateEpisodic/ChronicOther aftercare (1 source)custodial (current) use of aspirin; Translations: [INTERMEDIATE (CURRENT) USE OF ASPIRIN]Onset: 37-31-3721VcversjwWjisp lower respiratory disease (1 source)Shortness of breath; Translations: [SHORTNESS OF BREATH]Onset: 74-44-5769EgtoykseBpyrl lower respiratory disease (3 sources)Cough; Translations: [COUGH]Onset: 79-81-4596Ygtlisqr Results Test NameValueInterpretationReference HrepyVkvfofgz05qg 34-71-758932Xsvwaibjz lab results from 03/23/2025: MD Patria Klein MA His LDL is low. He can stop atorvastatin. LM asking that patient return my call.[facility] Office Visiton 16-40-5345Pxmpsi-up [id number] Nabeel Bonilla 1955 M Date Provider Department Center 03/23/2025 Adrián-JEROD STATON ELIAS Rosario Family History Problem Relation Age of Onset Coronary artery disease Mother Family Status - Relation Status Age at Mother Father Level of Service:[address]99 [place] OFFICE/OUTPATIENT ESTABLISHED MOD [facility] 77-06-5774Bihexd [id number] Nabeel Bonilla 1955 M Date Provider Department Center 02/23/2025 [id number], [facility] ELIAS Rosario Family History Problem Relation Age of Onset Coronary artery disease Mother Family Status - [facility]ation [facility] 83-67-6293KZCDPkdamr Visit (RADTSA) CHELSEAZEESHANNABEEL W ([id number]) 1955 M Date Time Provider Department 12/18/24 10:30 AM RG WINSTON During your visit today, we recorded the following information about you: Pulse Respiration Blood pressure Weight 59/minute 18/minute 113/65 84.2 kg Rg Winston MD 01/13/2025 3:50 AM Addendum Radiation Oncology - Follow Up Note PATIENT NAME: Nabeel Bonilla PATIENT DIAGNOSIS/PATIENT IDENTIFICATION: Mr. 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 He completed a total of 4 cycles of ABVD under the care of Dr. Donnelly at [facility] and repeat pet imaging after the third cycle on 09/08/2024 noted excellent metabolic response (Deauville 3). He completed a course of consolidative radiation therapy to the right axilla and neck on 11/17/2024 (3600 cGy delivered in 20 fractions). Mr. Bonilla returns to clinic today for routine follow-up [...] of said technology/software. Referring Provider: RG WINSTON [[id number]] Allergies As of Date: 12/18/2024 Noted Allergy Reaction NO KNOWN DRUG ALLERGIES 07/24/2005 no latex allergy [Other] 07/24/2005 Date Reviewed: 12/18/2024 Reviewed by: Coty Chan, BRANDAN - Fully Assessed Reason for Visit: Hodgkin's [...] for Encounter Date Provider Department Center 12/18/2024 [id number] [place] Encounter Status:Closed by RG WINSTON on 12/29/24[facility] 35-44-5099FWTAQbddhrgsa (RADTSA) NABEEL BONILLA ([id number]) 1955 M Date Time Provider Department 12/02/24 [...] Encounter Status:Closed by ANA PAULA CHAUHAN on 12/11/24[facility] 75-07-3656BKWLJgfgdi Visit (RADTSA) NABEEL BONILLA ([id number]) 1955 M Date Time Provider Department 11/13/24 10:00 AM RG WINSTON During your visit today, we recorded the following information about you: Temperature Pulse Respiration Blood pressure 97.3 degrees 66/minute 16/minute 121/87 Weight 82.3 kg Rg Winston MD 11/24/2024 10:41 PM Signed Radiation Oncology - On Treatment Review (OTR) Note PATIENT NAME: Nabeel Bonilla PATIENT DIAGNOSIS: Mr. 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 He completed a total of 4 cycles of ABVD under the care of Dr. Donnelly at [facility] and repeat pet imaging after the third cycle on 09/08/2024 noted excellent metabolic response (Deauville 3). COURSE: Consolidative AREA TREATED: Right axilla/neck CURRENT DOSE: 22488 cGy in 18 fx PLANNED DOSE: 3600 [...] Rg Winston MD Referring Provider: RG WINSTON [[id number]] Allergies As of Date: 11/13/2024 Noted Allergy [...] (None) Encounter Status:Closed by RG WINSTON on 11/24/24[facility] 13-41-4041UKQUTycsjy Visit (RADTSA) CHELSEANABEEL Young ([id number]) 1955 M Date Time Provider Department 11/05/24 10:00 AM RG WINSTON During your visit today, we recorded the following information about you: Temperature Pulse Respiration Blood pressure 97.9 degrees 65/minute 16/minute 121/69 Weight 82.6 kg Rg Winston MD 11/18/2024 4:46 AM Addendum Radiation Oncology - On Treatment Review (OTR) Note PATIENT NAME: Nabeel Bonilla PATIENT DIAGNOSIS: Mr. 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 He completed a total of 4 cycles of ABVD under the care of Dr. Donnelly at [facility] and repeat pet imaging after the [...] (None) Encounter Status:Closed by RG [facility]INSTON [facility]24[facility]-8919DTSJWfecks Visit (RADTSA) NABEEL BONILLA ([id number]) 1955 M Date Time Provider Department 10/29/24 10:00 AM RG WINSTON During your visit today, we recorded the following information about you: Temperature Pulse Respiration Blood pressure 97.5 degrees 64/minute 16/minute 95/60 Weight 83.3 kg Rg Winston MD 11/10/2024 10:54 PM Signed Radiation Oncology - On Treatment Review (OTR) Note PATIENT NAME: Nabeel Bonilla PATIENT DIAGNOSIS: Mr. 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 He completed a total of 4 cycles of ABVD under the care of Dr. Donnelly at [facility] and repeat pet imaging after the [...] (None) Encounter Status:Closed by RG WINSTON on 11/10/24[facility] 85-69-8710PWTSSovmhl Visit (JYOTIA) NABEEL BONILLA ([id number]) 1955 M Date Time Provider Department 10/21/24 1:15 PM RG WINSTON During your visit today, we recorded the following information about you: Temperature Pulse Respiration Blood pressure 97.8 degrees 61/minute 18/minute 130/70 Weight 84.3 kg Rg Winston MD 11/03/2024 11:33 PM Signed Radiation Oncology - On Treatment Review (OTR) Note PATIENT NAME: Nabeel [place] PATIENT DIAGNOSIS: Mr. 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 He completed a total of 4 cycles of ABVD under the care of Dr. Donnelly at [facility] and repeat pet imaging after the [...] Of Date: 10/21/2024 (None) Encounter Status:Closed by GR WINSTON on 11/03/24[facility] 25-08-2115AWIPCBOBhkhu Visit (MC) NABEEL BONILLA ([id number]) 1955 M Date Time Provider Department 10/07/24 [...] Encounter Status:Closed by ANA PAULA CHAUHAN on 10/08/24[facility] 70-67-2767CJEKMszntu Visit (RADTSA) NABEEL BONILLA ([id number]) 1955 M Date Time Provider Department 09/25/24 [...] - New Patient/Consult Note PATIENT NAME: Nabeel Bonilla PATIENT REQUESTING PHYSICIAN: Dr. 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 He was accompanied today by his family. Final recommendations will be communicated back to the requesting physician by way of the shared medical record, or letter to requesting physician via [place] mail. HISTORY OF PRESENT ILLNESS: Mr. Bonilla is a 69-year old gentleman [place], [place] with a history of hearing loss [...] atypical lymphoproliferative disorder after second review through [facility]. A second core biopsy was [...] of Onset Alcohol/Drug Father SOCIAL HISTORY: Mr. Bonilla is , has 2 children, and lives in the [place], [place] area. 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 He denies tobacco or alcohol use. [...] SpO2 98% BMI 23 (more content not included)...Normal [facility] CenterCNPNon 46-78-1256YEYENndzsewmm (RADTSA) NABEEL BONILLA ([id number]) 1955 M Date Time Provider Department 09/25/24 RG WINSTON During your visit today, we recorded the following information about you: Coty Chan, RN 09/25/2024 12:15 PM Addendum Rad Ed today Dietary Eval Schedule Simulation treating R Axilla and Neck with IV Contrast- plan for possible 5 point mask- 20 Fx Sim on 3/3 Consent is Signed *Pt does have onbody [...] no special instructions. Thanks! Kathleen Werner, RT(R)(T) Mady Durbin 10/01/2024 8:56 AM Signed Called [...] (None) Encounter Status:Closed by MARJAN AVILA on 10/01/24NoRegency Hospital Cleveland Westice Visiton 38-92-1931Enhpef-up [id number] Nabeel Bonilla W 1955 M Date Provider Department Center 09/15/2024 JEROD BANKS ELIAS [facility] Family History Problem Relation Age of Onset Coronary artery disease Mother Family Status - Relation Status Age at Mother Level of Service:11829 [place] OFFICE/OUTPATIENT ESTABLISHED MOD [facility]DM 30 [facility] HEMOGLOB[facility] A1Con 25-39-7232Jmjlllr [Mass/Vol]126 mg/dLNOMS DztdficqngPkH4d (Bld) [Mass fraction]6 %4.5 - 6.2 %NOMS HealthcareComment on above:ADA RECOMMENDED LIMIT 4.0 - 6.0 ADA THERAPEUTIC TARGET < 7.0 ACTION SUGGESTED > 7.0 CLINISYNCNOMS HealthcareEMG 2 Extremitieson 20-56-3261Ukqxxszfhsdjfk which is axonal loss in type, motor predominant and severe Can not exclude radiculopathyNOMS HealthcareNOMS HealthcareNVC 9-10 Nerveson 81-26-1169Brgxfumfxchkus which is axonal loss in type, motor predominant and severe Can not exclude radiculopathyNOMS HealthcareNOMS HealthcareOffice Visiton 33-45-2218Lfekmk-up [id number] Nabeel Bonilla W 1955 M Date Provider Department Center 06/19/2024 384Rema-FABIOLA BENDER ELIAS [facility] Family History Problem Relation Age of Onset Coronary artery disease Mother Family Status - Relation Status Age at Mother Level of Service:92647 [place] OFFICE/OUTPATIENT ESTABLISHED LOW MDM 20 [facility] CenterOrders Onlyon 77-47-4197Kjmdxc [id number] Nabeel Bonilla W 1955 M Date Provider Department Center 06/19/2024 895-JOSE ALFREDO MUNOZ ELIAS Rosario Family History Problem Relation Age of Onset Coronary artery disease Mother Family Status - Relation Status Age at MotherNormalUniversity of Parkview Regional HospitalISTAT XRay CREon 39-45-1218XEKCX GFR> 60.0NoCone Health MedCenter High Point Physician GroupComment on above:Result Comment: PERFORMED BY: [facility] [address] [place] [address] PATHOLOGIST STILE RIPSAW OPERATOR KASSI WATERS M.D.Performed By: #### ISCRE #### [place] [id number] [facility] head/brain wo/w conon 26-39-3256LG head/brain wo/w con [facility] Main [place] [address] [place] [id number] MRI Report Signed Patient: Nabeel Bonilla MR#: [id number] : 1955 Acct:[id number] Age/Sex: 68 / M ADM Date: 05/29/24 Loc: MR Room: Type: [facility] Attending Dr: Sonia Donnelly MD Copies [...] Alexis Patel M.D.05/29/2024 1:38 PM Dictation Location: [place] [address] Transcribed By: [facility] 05/29/24 1338 Dictated By: Alexis Patel II, MD 05/29/24 1325 Signed By: 05/29/24 1338NoCone Health MedCenter High Point Physician GroupNo Panel InformationOrdered By: Sonia Donnelly on 95-59-6508Nsoaqof Estimated GFR (eGFR)> 60.0[facility] HospitalWhole blood creatinine measurementOrdered By: Sonia Donnelly on 50-84-1480Vnuvbgoyeg [Mass/Vol]0.8 mg/dLNormal0.6-1.3FOur Lady of Mercy HospitalComment on above:ER/ESD physician is notified/shown all ISTAT results.Critical values may be confirmed by laboratorytesting ifdeemed necessary by ER attending doctor.Result Comment: ER/ESD physician is notified/shown all ISTAT results. Critical values may be confirmed by laboratory testing if deemed necessary by ER attending doctor.Performed By: #### ISCRE #### [place] [id number] USAXR pre/post mri xrayon 60-44-3154ZZ pre/post mri xray [facility] Main [place] [address] [place] [address] MRI Report Signed Patient: Nabeel Bonilla MR#: [id number] : 1955 Acct:[id number] Age/Sex: 68 / M ADM Date: 05/29/24 Loc: Room: Type: [facility] Attending Dr: Sonia Donnelly MD Copies to: Sonia Donnelly MD Ordering Provider: Sonia Donnelly MD Date of Service: 05/29/24 MR/MR cervical spine wo/w con: C85.90, C85.94, C85.11 ([id number]) XR/XR pre/post mri xray: C85.90, C85.94, C85.11 [...] is severe disc height loss at C4-C5, C5- 6, and C6-C7 with accompanying anterior osteophyte formation. [...] Alexis Patel M.D.05/29/2024 1:00 PM Dictation Location: [place] [address] Transcribed By: [facility] 05/29/24 1300 Dictated By: Alexis Patel II, MD 05/29/24 1254 Signed By: 05/29/[address] [place] [address] Physician GroupSURGICAL PATHOLOGY REFERENCE LAB CONSULTon 58-83-7966[place] 1:[facility] on above:Order Comment: Specimen Type: FORMALIN-FIXED PARAFFIN-EMBEDDED TISSUE SPECIMENOrdering Facility: [facility] Address: [address] [place], [place] [address] [place], [place] [address]Eidjrt Comment: Repeat MUM1 immunostain does in fact stain the focal large atypical cells. No change in final diagnosis. ABO 05/14/2024 Addendum electronically signed by Lory Vick MD, PhD on 05/14/2024 at 4:02 PMPerformed By: #### [id number] ####[facility] LABCLIA [id number] [place] [address] [place] DEIRDRE CASE REPORTNormalCFlower Hospital on above:Order Comment: Specimen Type: FORMALIN-FIXED PARAFFIN-EMBEDDED TISSUE SPECIMENOrdering Facility: [facility] Address: [address] [place], [place] [address] [place], [place] [address]Ksuvpo Comment: Surgical Pathology Report Case: [id number] Authorizing Provider: Kin Lauren MD Collected: 05/05/2024 04:52 PM Ordering Location: [facility] Received: 05/05/2024 04:52 PM [facility] Pathologist: Lory Vick MD, PhD Specimen: Slide(s), 18 SLIDES [id number] By: #### [id number] ####[facility] LABCLIA [id number] [address] STATES OF AMERICACLINICAL HISTORYCONSULT REQUESTEDNoCleveland Clinic [facility] on above:Order Comment: Specimen Type: FORMALIN-FIXED PARAFFIN-EMBEDDED TISSUE SPECIMENOrdering Facility: [facility] Address: [address] [place] [address] [place], [place] [address]Tciolhrhp By: #### [id number] ####[facility] LABIA [id number] [place] [id number] [facility] MONTGOMERYDIAGNOSIS COMMENTMercy Health [facility] on above:Order Comment: Specimen Type: FORMALIN-FIXED PARAFFIN-EMBEDDED TISSUE SPECIMENOrdering Facility: [facility] Address: [address] [place] [address]Ibmibw Comment: Per the provided report, flow cytometric analysis detected no significant immunophen otypic abnormalities on the lymphocytes, with a CD4:CD8 ratio 4.4. Overall, the morphologic and immunophenotypic findings described below are consistent with an atypical lymphoid proliferation predominantly composed of reactive changes with a single focus of large XN10-jisimlbl lymphocytes. Morphologically and immunophenotypically, these large atypical cells are co mpatible with Hodgkin and Neto-Jude cells/variants. However, this tiny, focal involvement is unusual. If the patient has additional lymphadenopathy, biopsy of another site is recommended to definitely diagnose involvement by a Hodgkin lymphoma. Correlation with imaging studies is strongly recommended. This case was also reviewed by Dr. Mare Pierce ([facility] hematopathology section), who agrees with the above interpretation and final diagnosis. Thank you for sending this case in consultation. Please contact the Hematopathology Consult Service at [phone] for any questions or if blaine tional follow-up information becomes available. Laboratory Developed Test (LDT) Disclaimer: Performance characteristics of immunohistochemical, immunofluorescent and chromogenic in-situ hybridization tests have been determined by the performing laboratory within [facility]???s Tre Marcus Pathology and Laboratory Medicine Department ([facility], [facility], [facility], [facility], [facility], [facility], or [facility]) in a manner consistent with CLIA requirements. One or more of these tests havenot been cleared or approved by the FDA. RT-PLM is regulated under CLIA as qualified to perform high-complexity testing. These tests are used for clinical purposes. They should not be regarded as investigational or for research. Positive and negative controls stain appropriately.Performed By: #### [id number] ####[facility] LABCLIA [id number] [place] [address] [facility] MONTGOMERYFINAL DIAGNOSISNoTrinity Health System West Campusment on above:Order Comment: Specimen Type: FORMALIN-FIXED PARAFFIN-EMBEDDED TISSUE SPECIMENOrdering Facility: [facility] Address: [address] [place], [place] [address]Vowzgb Comment: Outside slides ([id number]; 04/23/2024) from [facility], [place], [place]. A. Lymph node, right axillary, excisional biopsy: - Predominantly reactive lymphoid proliferation with a single focus of atypical RV83-eabyyopl lymphocytes. - See comment. ABO 05/13/2024 Performed By: #### [id number] ####[facility] LABCLIA [id number] [place] [id number] [facility] FINAL PERFORMING LABNoCleveland Clinic [facility] on above:Order Comment: Specimen Type: FORMALIN-FIXED PARAFFIN-EMBEDDED TISSUE SPECIMENOrdering Facility: [facility] Address: [address] [place], [place] [address]Wlokkr Comment: Diagnostic interpretation performed at: [facility], [facility] [place] [address] CLIA# [id number] Manager Architectural: Ryan Dasformed By: #### [id number] ####[facility] LABCLIA [id number] [facility] [id number] [place] [address] [place] OF AMERICAMICROSCOPIC DESCRIPTIONNormalCOhioHealth Pickerington Methodist HospitalComment on above:Order Comment: Specimen Type: FORMALIN-FIXED PARAFFIN- EMBEDDED TISSUE SPECIMENOrdering Facility: [facility] Address: [place], [place] [address]Fxhwfk Comment: H&E-stained sections demonstrate fibroadipose tissue and probable [...] are appropriately negative for BCL2. CD23 highlights i ntact follicular dendritic cell meshworks associated with the B-cell follicles. AE1/AE3 is negative. Immunohistochemical and in situ hybridization stains [facility] A2. The large atypical [...] in the focal area with atypical large lymphocytes.Performed By: #### [id number] ####[facility] LABCLIA [id number] [address] [address] [place] STATES OF AMERICAAmbulatory Visit Summaryon 44-51-3467Qiaordpofm Visit SummaryAmbulatory Visit Summary NABEEL BONILLA :1955 Visit Date:04/30/2024 Ambulatory Visit Instructions Your [...] Follow-Up Appointments Sunday 10:45 AM EST With: Moody POP MD Where: [facility] [address] [address]- Medications What How Much When Instructions Unchanged atorvastatin (atorvastatin 10 mg Tab) 1 Tablets By Mouth Every day Contact prescribing physician if questions or concerns Unchanged carvedilol (carvedilol 6.25 mg Tab) 1 Tablets By Mouth Every day Contact prescribing physician if questions or concerns Unchanged ciprofloxacin (Cipro 500 mg Tab) 1 Tablets By Mouth As Directed Patient to take 1 tab theday before procedure and the 2nd tab the day of procedure once completed Contact prescribing physician if questions or concerns Unchanged insulin glargine (Lantus Solostar Pen 100 units/ mL subcutaneous solution) 20 Units Subcutaneous Once a day (at bedtime) Contact prescribing physician if questions or concerns Unchanged losartan (losartan 100 mg Tab) 1 Tablets By Mouth Every day Contact prescribing physicianif questions or concerns Unchanged metformin (metformin 1000 [...] you for choosing us for your care. [facility] HospitalGeneral [facility] Office/Clinic Noteon 23-80-7534Xukdzgb Surgery Office/Clinic NoteGeneral Surgery Office/Clinic Note Chief Complaint post operative follow up HPI Staff 7 day post operative follow up post incisional biopsy right axilla adenopathy completed while inpatient at [facility]. Denies soreness, bleeding or drainage. History [...] swallowing difficulties, no hearing loss, no ear infection(s),no nose bleeds. Cardiovascular: normal blood pressure, no [...] No. Yes, 04/30/2024 Family History Heart disease: Mother.Genesis HospitalComment on above:Result Comment: Electronically Signed By: Jassi ALEGRIA MD\Date and Time Signed: 04/30/24 14:51 EDTLon 03-69-6351YKdvekupw: [id number] Received: 04/23/24 Status: MERNA Montemayor Num: [id number] Spec Type: Surgical Subm Dr: Jassi Alegria MD FACS Tissues: A Lymph Node - Biopsy (Needle or Incisional) (R AXILLARY LYMPH NODE BX) Procedures: CD45/2, HE/4, Gross/Micro L4, AE1-AE3, BCL-2, BCL-6, CD10, CD20, CD23, CD3, CD30/2, CD5, PAX5/2 Age/ Patient Sex Location Account Attending Physician Nabeel Bonilla 68/M LABEL [id number] Jassi Alegria MD FACS SPEC NUM: [id number] RECD: 04/23/24 STATUS: MERNA MONTEMAYOR NUM: [id number] RANJITH: 04/23/24-1205 [facility] DR: Jassi Alegria MD FACS ENTERED: 04/23/[address] [facility] [address]: SPEC TYPE: Surgical DEPT: LUANA MOYER ENTERED BY: [id number] RECV BY: [id number] ORDERED: CD45/2, HE/4, Gross/Micro L4, AE1-AE3, BCL-2, BCL-6, CD10, CD20, CD23, CD3, CD30/2, CD5, PAX5/2 ORDERED: CD45/2, HE/4, Gross/Micro L4, AE1-AE3, BCL-2, BCL-6, CD10, CD20, CD23, CD3, CD30/2, CD5, PAX5/2, USS/7 Supplemental Report Addendum 3 Entered: 05/15/24-1014 Supplemental for addended consultation report from [facility] Addendum -Repeat MUM1 immunostain does in fact stain the focal large atypical cells -No change in final diagnosis Addendum Signed (signature on file) Trinity Lauren MD 05/15/24 1014 Addendum 2 Entered: 05/14/245291 Supplemental for findings of consultation report from [facility]: -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 Specimen: [id number] Received: 04/23/24-1322 Status: MERNA Baileyradha Num: [id number] Spec Type: Surgical Subm Dr: Jassi Alegria MD FACS Tissues: A Lymph Node - Biopsy (Needle or Incisional) (R AXILLARY LYMPH NODE BX) Procedures: CD45/2, HE/4, Gross/Micro L4, AE1-AE3, BCL-2, BCL-6, CD10, CD20, CD23, CD3, CD30/2, CD5, PAX5/2 Patient: Nabeel Bonilla [id number] (Continued) Specimen: [id number] Received: 04/23/24 (Continued) Supplemental Report (Continued) Signed (signature on file) Trinity Lauren MD 05/01/24 1651 Specimen: [id number] Received: 04/23/24 Status: MERNA Miguel Num: [id number] Spec Type: Surgical Subm Dr: Jassi Alegria MD FACS Tissues: A Lymph Node - Biopsy (Needle or Incisional) (R AXILLARY LYMPH NODE BX) Procedures: CD45/2, HE/4, Gross/Micro L4, AE1-AE3, BCL-2, BCL-6, CD10, CD20, CD23, CD3, CD30/2, CD5, PAX5/2 Patient: Nabeel Bonilla [id number] (Continued) Specimen: [id number] Received: 04/23/24-1322 (Continued) Supplemental Report (Continued) lymphocytes -See comment Addendum Signed (signature on file) Trinity Lauren MD 05/14/24 1437 Addendum 1 Entered: 05/07/24 Supplemental for findings of Flow Cytometry report from [facility] -No significant lymphoid immunophenotypic abnormalities detected Addendum Signed (signature on file)Kavon Lauren MD 05/07/24943 Pathological Diagnosis Right axillary [...] is no significant lymphoid (more content not included)...NormalAdventhealth Lake Wales Physician GroupSURGICAL PATHOLOGY REFERENCE LAB CONSULTon 09-69-8877HPXH REPORT [facility] on above:Order Comment: Specimen Type: FORMALIN-FIXED PARAFFIN-EMBEDDED TISSUE SPECIMENOrdering Facility: [facility] Address: [address] [place], [place] [address] Result Comment: Surgical Pathology Report Case: [id number] Authorizing Provider: Kin Lauren MD Collected: 04/18/2024 08:55 AM Ordering Location: [facility] Received: 04/18/2024 08:55 AM [facility] Pathologist: Crystal Mesa MD, PhD Specimen: Slide(s), 2 SLIDES [id number] By: #### [id number] ####[facility] LABCLIA [id number] [place] [address] [place] OF AMERICACLINICAL HISTORYCONSULT REQUESTEDNoC[facility] on above:Order Comment: Specimen Type: FORMALIN-FIXED PARAFFIN-EMBEDDED TISSUE SPECIMENOrdering Facility: [facility] Address: [address] [place], [place] [address]Performed By: #### [id number] ####[facility] LABCLIA [id number] [place] [address] [place] OF AMERICADIAGNOSIS COMMENT NormalCleveland Clinic ClevelandComment on above:Order Comment: Specimen Type: FORMALIN-FIXED PARAFFIN-EMBEDDED TISSUE SPECIMENOrdering Facility: [facility] Address: [address] [place] [phone] Result Comment: Thank you for sharing this case in consultation. Per report, flow cytometry was sent on this specimen but is not yet available. The specimen is cut through on an initial deeper level section received. Greater sampling is recommended if feasible, if it is clinically indicated to further characterize this process. Please do not hesitate to contact the Hematopathology Consult Service at [phone] for any questions or if additional follow-up information becomes available.Performed By: #### [id number] ####[facility] LABCLIA [id number] [address] FINAL DIAGNOSISNoCleveland Clinic South Pointe Hospital on above:Order Comment: Specimen Type: FORMALIN-FIXED PARAFFIN-EMBEDDED TISSUE SPECIMENOrdering Facility: [facility] Address: [address] [place], [place] [address] Comment: A. Outside materials received from [facility], [place], [place] (External ID [id number], 04/14/24) Right axillary lymph node, core biopsy: -Extremely limited specimen compatible with malignancy, see comment. [facility] April 18, 2024 Performed By: #### [id number] ####[facility] LABCLIA [id number] [address] OF [facility] FINAL PERFORMING LABNoCleveland Clinic [facility] on above:Order Comment: Specimen Type: FORMALIN-FIXED PARAFFIN-EMBEDDED TISSUE SPECIMENOrdering Facility: [facility] Address: [address] [place] [address]Pvrqdi Comment: Diagnostic interpretation performed at: [facility], [address] [facility], [facility] [place] [address] CLIA# [id number] Manager Architectural: Ryan Dasformed By: #### [id number] ####[facility] LABCLIA [id number] [place] [address] [place] OF AMERICAMICROSCOPIC DESCRIPTIONHistologic sections demonstrate multiple scant fragments of soft tissue with architecture effaced by a lymphohistiocytic infiltrate with large, atypical forms with complex nuclear features, prominentnucleoli, multinucleation and increased eosinophilic cytoplasm. The large atypical forms show Hodgkin-like features, but the differential would include other B, T and non-hematolymphoid malignancies based on the limited morphology alone. Unfortunately, the material is exhausted to further characterize this limited sample.NormalTrinity Health System Twin City Medical CenterComment on above:Order Comment: Specimen Type: FORMALIN-FIXED PARAFFIN-EMBEDDED TISSUE SPECIMENOrdering Facility: [facility] Address: [address] [place] [address]Uqmwzlidp By: #### [id number] ####[facility] [id number] [place] [address] [place] OF AMERICALon 26-66-9005SXmynoqnk: [id number] Received: 04/14/241044 Status: TAMIA Req Num: [id number] Spec Type: Surgical Subm Dr: Nabeel Strange MD Tissues: A Lymph Node - Biopsy (Needle or Incisional) (R AXILLA LYMPH NODE) B Gross Only (LYMPH NODE) Procedures: HE/2, Gross/Micro L4, Level 1 Gross Age/ Patient Sex Location Account Attending Physician Nabeel Bonilla 68/M LABELL [id number] Nabeel Strange MD SPEC NUM: [id number] RECD: 04/14/24 STATUS: SOU RE NUM: [id number] RANJITH: 04/11/24- SUBM DR: Nabeel Strange MD ENTERED: 04/14/[address] [facility] [address]: Gregg Flores SPEC TYPE: Surgical DEPT: LUANA MOYER ENTERED BY: [id number] RECV BY: [id number] ORDERED: HE/2, Gross/Micro L4, Level 1 Gross ORDERED: HE/2, Gross/Micro L4, Level 1 Gross Supplemental Report Addendum 2 Entered: 04/21/24 Supplemental for findings of consultation report from [facility]: A, -Extremity limited specimen compatible with malignancy, see comment Addendum Signed (signature on file) Kin-Gama Lauren MD 04/21/24 1307 Addendum 1 Entered: 04/18/248155 Supplemental for findings of flow cytometry report from [facility]: -Tests canceled -This test is canceled due to poor sample quality / poor viability Specimen: [id number] Received: 04/14/24-1044 Status: MERNA Montemayor Num: [id number] Spec Type: Surgical Subm Dr: Nabeel Strange MD Tissues: A Lymph Node - Biopsy (Needle or Incisional) (R AXILLA LYMPH NODE) B Gross Only (LYMPH NODE) Procedures: HE/2, Gross/Micro L4, Level 1 Gross Patient: Nabeel Bonilla [id number] (Continued) Specimen: [id number] Received: 04/14/24 (Continued) Supplemental Report (Continued) Signed (signature on file) Trinity Lauren MD 04/17/24 1127 Specimen: [id number] Received: 04/14/24 Status: MERNA Montemayor Num: [id number] Spec Type: Surgical Subm Dr: Nabeel Strange MD Tissues: A Lymph Node - Biopsy (Needle or Incisional) (R AXILLA LYMPH NODE) B Gross Only (LYMPH NODE) Procedures: HE/2, Gross/Micro L4, Level 1 Gross Patient: Nabeel Bonilla [id number] (Continued) Specimen: [id number] Received: 04/14/24-1045 (Continued) Supplemental Report (Continued) Addendum [...] sent to an outside facility. DM Specimen: [id number] Received: 04/14/24 Status: MERNA Montemayor Num: [id number] Spec Type: Surgical Subm Dr: Nabeel Strange MD Tissues: A Lymph Node - Biopsy (Needle or Incisio (more content not included)... [facility] Physician GroupInsurance Correspondenceon 01-30-2024 Insurance [id number]#1.00TIFProtestant HospitalConsent for Procedure/Surgeryon 82-52-5702Larcfsd for Procedure/[id number]#1.00[facility] CenterPhysician Referralon 36-05-0238Rjkfztuom Referral [id number]#1.00[facility] Hospitalcreenson 71-55-0162Efeixry [id number]#1.00[facility] Medical CenterAmbulatory Visit Summaryon 20-47-7565Mwtnhfifsg Visit Summary KIMWILLARD NABEEL Young :1955 Visit Date:01/21/2024 Ambulatory Visit Instructions [...] Tab) Procedures Performed Colonoscopy (2013), Brain tumor (2005), Back, Tonsillectomy. Discharge Vitals Heart Rate (Peripheral) 70 Respiratory Rate 16 Blood Pressure 108/72 Height 187 cm Height 74 in Weight 118 kg Weight 259.6 lb BMI 33.74 What to do next You Need to Schedule the Following Appointments Follow Up with DONN ELLIS, FREDDY Jimenez When: Where: [facility] [address] [place] [address]- Medications What When Instructions Unchanged amlodipine (amLODIPine 10 mg Tab) 90 tab(s), 0 Refill(s) Contact prescribing physician ifquestions or concerns Unchanged atorvastatin (atorvastatin 40 mg [...] gland that is caused by the normal agingprocess. The prostate may get bigger as a man gets older. The condition is not caused by cancer. The prostate is a walnut-sized gland that is involved in the production of semen. It is located in front of the rectum and below the bladder. The bladder stores urine. The urethra carries stored urine ou t of the body. An enlarged prostate can press on the urethra. This can make it harder to pass urine. The buildup of urine in the bladder can cause infection. Back pressure and infection may progress to bladder damage and kidney (renal) failure. What are the causes? This condition is part of the normal aging process. However, not all men develop problems from thiscondition. If the prostate enlarges away from the [...] of your urine (ur (more content not included)...[facility] Educationon 07-06-0232Jyfwefk EducationUrology Benign Prostatic Hyperplasia Benign prostatic hyperplasia (BPH) is an enlarged prostate gland that is caused by the normal agingprocess. The prostate may get bigger as a man gets older. The condition is not caused by cancer. The prostate is a walnut-sized gland that is involved in the production of semen. It is located in front of the rectum and below the bladder. The bladder stores urine. The urethra carries stored urine ou t of the body. An enlarged prostate can press on the urethra. This can make it harder to pass urine. The buildup of urine in the bladder can cause infection. Back pressure and infection may progress to bladder damage and kidney (renal) failure. What are the causes? This condition is part of the normal aging process. However, not all men develop problems from thiscondition. If the prostate enlarges away from the [...] urine that may remain in your bladder afteryou finish urinating. ? A digital rectal exam. [...] this procedure, a tool is inserted through theopening at the tip of the penis (urethra). [...] procedure uses radio frequencies to destroy and removea small amount of prostate tissue. ? Interstitial laser coagulation (ILC). This procedure uses a laser to destroy and remove a small amount of prostate tissue. ? Transurethral electrovaporization (TUVP). This procedure uses electrodes to destroy and remove a small amount of prostate tissue. ? Prostatic urethral lift. This procedure inserts an implant to push the lobes of the prostate awayfrom the urethra. Follow these instructions at home: ? Take qykz-bbo-exvwiwy and prescription medicines only as told by [...] from the medicine (more content not included)... NormalFisher [facility] And HospitalINSULINon 17-51-1047Jjmsojk42.2 uIU/mLNormal 2.6-24.9The [facility] HospitalComment on above:Performed By: #### INSULIN #### [facility] [address] [place] [address] Dr. Forrest Lares AUTO DIFFon 35-29-1614TXNF #0.1 103/ulNormal0.0-0.1The [facility] HospitalComment on above:Performed By: #### PSASC #### [facility] [address] [place] [address] Dr. Forrest LaurenBasophils/100 WBC (Bld)0.8 %Normal0.2-2.0The [facility] Comment on above:Performed By: #### PSASC #### [facility] [address] [place] [address] Dr. Forrest Riojas #0.4 103/ulNormal0.0-0.7The [facility] HospitalComment on above: Performed By: #### PSASC #### [facility] [address] [place] [address] Dr. Forrest Higginsosinophils/100 WBC (Bld)4.8 %Normal0.9-7.0[facility] Comment on above:Performed By: #### PSASC #### [facility] [address] [place] [address] Dr. Forrest Higginsrythrocyte distribution width (RBC) [Ratio]12.7 %Ipqgmn55.0-15.0 The [facility] HospitalComment on above:Performed By: #### PSASC #### [facility] [address] [place] [address] Dr. Forrest LaurenHematocrit (Bld) [Volume fraction]48.3 %Jlgxvv37.0-54.0The [facility] HospitalComment on above:Performed By: #### PSASC #### [facility] [address] [place] [address] Dr. Forrest LaurenHemoglobin (Bld) [Mass/Vol]16.4 g/wALtvlhn08.0-18.0The [facility] HospitalComment on above:Performed By: #### PSASC #### [facility] [address] [place] [address] Dr. Forrest Walden #0.05 10e3/ulCritically high0.00-0.03[facility] Comment on above:Performed By: #### PSASC #### [facility] [address] [place] [address] Dr. Forrest Walden %0.6 %Critically high0.0-0.5The [facility] HospitalComment on above:Performed By: #### PSASC #### [facility] [address] [place] [address] Dr. Forrest Flowers #2.0 103/ulNormal1.2-3.8The [facility] HospitalComment on above:Performed By: #### PSASC #### [facility] [address] [place] [address] Dr. Forrest Wildhocytes/100 WBC (Bld)22.6 %Ieiusi07.5-60.0The [facility] HospitalComment on above:Performed By: #### PSASC #### [facility] [address] [place] [address] Dr. Forrest PalmerUAL DIFF REQNONormalThe [facility] HospitalComment on above: Performed By: #### PSASC #### [facility] [address] [place] [address] Dr. Forrest Prakash (RBC) [Entitic mass]29.8 dqYqxjvc02.9-34.0The [facility] HospitalComment on above:Performed By: #### PSASC #### [facility] [address] [place] [address] Dr. Forrest Prakash (RBC) [Mass/Vol]34.0 g/rDVisnya77.9-35.2The [facility] HospitalComment on above:Performed By: #### PSASC #### [facility] [address] [place] [address] Dr. Forrest Prakash (RBC) [Entitic vol]87.8 iEKnsnen37.0-94.0The [facility] HospitalComment on above:Performed By: #### PSASC #### [facility] [address] [place] [address] Dr. Forrest Banks #0.7 103/ulNormal0.3-0.8The [facility] HospitalComment on above:Performed By: #### PSASC #### [facility] [address] [place] [address] Dr. Forrest Centenoocytes/100 WBC (Bld)8.0 %Normal1.7-12.0The [facility] Comment on above:Performed By: #### PSASC #### [facility] [address] [place] [address] Dr. Forrest ClarkeUT #5.7 103/ulNormal1.4-6.5The [facility] HospitalComment on above:Performed By: #### PSASC #### [facility] [address] [address] [address] Forrest Clarkeutrophils/100 WBC (Bld)63.2 %Lpjege39.0-75.0The [facility] HospitalComment on above:Performed By: #### PSASC #### [facility] [address] [place] [address] Dr. Forrest LaurenPlatelet mean volume (Bld) [Entitic vol]9.7 fLNormal9.5-13.5The [facility] HospitalComment on above:Performed By: #### PSASC #### [facility] [address] [place] [address] Dr. Forrest LaurenPLT242 103/mhZrvaex423-366Hlh [facility] HospitalComment on above: Performed By: #### PSASC #### [facility] [address] [place] [address] Dr. Forrest LaurenRBC5.50 106/ulNormal4.70-6.10The [facility] HospitalComment on above:Performed By: #### PSASC #### [facility] [address] [place] [address] Dr. Forrest LaurenWBC9.0 103/ulNormal4.0-11.0The [facility] HospitalComment on above: Performed By: #### PSASC #### [facility] [address] [place] [address] Dr. Forrest LaurenGLYCOHEMOGLOBIN A1Con [id number] RECOMMENDATIONADA THERAPEUTIC TARGET 6.0 - 7.0 ACTION SUGGESTED > 7.0NormalThe [facility] HospitalComment on above:Performed By: #### A1C #### [facility] [address] [address] [address] Forrest LaurenGlucose [Mass/Vol]194 mg/dLRegional Medical CenterComment on above:Performed By: #### A1C #### [facility] [address] [address] [address] Forrest LaurenHbA1c (Bld) [Mass fraction]8.4 %Critically high<=6.0The [facility] HospitalComment on above:Performed By: #### A1C #### [facility] [address] [place] [address] Dr. Forrest LaurenLIPID PROFILEon [id number]-HDL RATIO NORMSEE St[facility] Medical CenterComcorewell health [facility] on above:Result Comment: 3.3 - 4.4 LOW RISK 4.4 - 7.1 AVERAGE RISK 7.1 - 11.0 MODERATE RISK >11.0 HIGH RISKPerformed By: #### PSASC #### [facility] [address] [place] [address] Dr. Forrest Schmitzesterol [Mass/Vol]117 mg/dLNormal<=200[facility] Comment on above:Performed By: #### PSASC #### [facility] [address] [place] [address] Dr. Forrest Schmitzesterol in HDL [Mass/Vol]43 mg/dLRegional Medical Center Comment on above:Performed By: #### PSASC #### [facility] [address] [place] [address] Dr. Forrest Schmitzesterol in LDL [Mass/Vol]45.6 mg/dLRegional Medical CenterComment on above:Performed By: #### PSASC #### [facility] [address] [place] [address] Dr. Forrest Thakur.total/Cholesterol in HDL [Mass ratio]2.7 {ratio} NormalThe [facility] HospitalComment on above:Performed By: #### PSASC #### [facility] [address] [place] [address] DrFlora Fields NORMAL> or = 60 mg/dl - LOW CARDIOVASCULAR RISK <40 mg/dl - HIGH CARDIOVASCULAR RISKRegional Medical CenterComment on above:Performed By: #### PSASC #### [facility] [address] [place] [address] Dr. Forrest LaurenLDL CALC NORMALSEE BELOWNoProMedica Memorial HospitalComment on above:Result Comment: <100 mg/dl OPTIMAL 100 - 129 mg/dl NEAR OR ABOVE OPTIMAL 130 - 159 mg/dl BORDERLINE HIGH 160 - 189 mg/dl HIGH >190 mg/dl VERY HIGH Performed By: #### PSASC #### [facility] [address] [place] [address] Dr. Forrest LaurenTriglyceride [Mass/Vol]142 mg/dLNormal<=150The [facility] Comment on above:Performed By: #### PSASC #### [facility] [address] [place] [address] Dr. Forrest JaramilloLDL CALC28.4 mg/dLNoProMedica Memorial HospitalComment on above: Performed By: #### PSASC #### [facility] [address] [place] [address] Dr. Forrest LaurenPROF 14(COMP METB)on 57-37-0336Gzvfdea [Mass/Vol]4.1 g/dLNormal 3.5-5.0[facility] HospitalComment on above:Performed By: #### PSASC #### [facility] [address] [place] [address] Dr. Forrest LaurneAlbumin/Globulin [Mass ratio]1.2 {ratio}NormalThe [facility] HospitalComment on above:Performed By: #### PSASC #### [facility] [address] [place] [address] Dr. Forrest Gómez [Catalytic activity/Vol]82 U/TSqxwad69-342Vio [facility] HospitalComment on above:Performed By: #### PSASC #### [facility] [address] [place] [address] Dr. Forrest Gaming [Catalytic activity/Vol]38 U/EMsbwwa37-03Bvr [facility] HospitalComment on above:Performed By: #### PSASC #### [facility] [address] [address] [address] Forrest Medeiros gap [Moles/Vol]12.7 mmol/LNormalThe [facility] Comment on above:Performed By: #### PSASC #### [facility] [address] [address] [address] Forrest LaurenAST [Catalytic activity/Vol]18 U/QGggfbz36-24Bqf [facility] HospitalComment on above:Performed By: #### PSASC #### [facility] [address] [address] [address] Forrest LaurenBilirubin [Mass/Vol]1.2 mg/dLNormal0.2-1.3TAultman Hospital Comment on above:Performed By: #### PSASC #### [facility] [address] [address] [address] Forrest LaurenCalcium [Mass/Vol]9.7 mg/dLNormal8.4-10.2[facility] Comment on above:Performed By: #### PSASC #### [facility] [address] [address] [address] Forrest LaurenChloride [Moles/Vol]102 mmol/CVjloqz49-592Jit [facility] Comment on above:Performed By: #### PSASC #### [facility] [address] [address] [address] Forrest LaurenCO2 [Moles/Vol]30.6 mmol/LCritically high22.0-30.0[facility] HospitalComment on above:Performed By: #### PSASC #### [facility] [address] [address] [address] Forrest LaurenCreatinine [Mass/Vol]1.09 mg/dLNormal0.66-1.25The [facility] HospitalComment on above:Performed By: #### PSASC #### [facility] [address] [address] [address] Clayton ChangEGFR-AF SURINAMESE>60Normal>=60The [facility] HospitalComment on above:Performed By: #### PSASC #### [facility] [address] [address] [address] Forrest HigginsGFR-NON AF SURINAMESE>60Normal>=60The [facility] HospitalComment on above:Performed By: #### PSASC #### [facility] [address] [address] [address] Forrest LaurenGlobulin (S) [Mass/Vol]3.4 g/dLNormalThUniversity Hospitals Geneva Medical CenterComment on above:Performed By: #### PSASC #### [facility] [address] [address] [address] Forrest LaurenGlucose [Mass/Vol]238 mg/dLCritically madp31-219Wmw [facility] HospitalComment on above:Performed By: #### PSASC #### [facility] [address] [address] [address] Forrest LaurenPotassium [Moles/Vol]4.3 mmol/LNormal3.4-5.0The [facility] Comment on above:Performed By: #### PSASC #### [facility] [address] [address] [address] Forrest LaurenProtein [Mass/Vol]7.5 g/dLNormal6.1-8.2[facility] Comment on above:Performed By: #### PSASC #### [facility] [address] [address] [address] Forrest LaurenSodium [Moles/Vol]141 mmol/VUpdgun890-446OheC[facility] Clinic [facility] Comment on above:Performed By: #### PSASC #### [facility] [address] [address] [address] Forrest LaurenUrea nitrogen [Mass/Vol]20.0 mg/dLNormal9.0-20.0The [facility] HospitalComment on above:Performed By: #### PSASC #### [facility] [address] [address] [address] Forrest LaurenUrea nitrogen/Creatinine [Mass ratio]18.3 mg/mgNormHolzer HospitalComment on above:Performed By: #### PSASC #### [facility] [address] [place] [address] Dr. Forrest LaurenURIC ACID SERUMon 18-23-3067Wvuqk [Mass/Vol]4.8 mg/dLNormal 3.5-8.5The [facility] HospitalComment on above:Performed By: #### PSASC #### [facility] [address] [place] [address] Dr. Forrest LaurenCovid-19 PCR ([facility])on 10-41-0002Cbkjgd TypeTest performed using RT-PCR from a nasopharyngeal collected specimen.NormalC[facility] Clinic [facility] Comment on above:Performed By: #### PSASC #### [facility] [address] [place] [address] Dr. Forrest Machuca-CoV-2 (COVID-19) RNA MERA+probe Ql (Unsp spec)Detected AbnormalNOT DETECTEDThe [facility] HospitalComment on above:Result Comment: This test is not yet approved or cleared by the [place] FDA. When there are no FDA-approved or cleared tests available, and other criteria are met, FDA can make tests available under an emergency access mechanism called an Emergency Use Authorization (EUA). The EUA for this test is supported by the Soldier of Health and Human Service's (HHS's) declaration [...] which the test may no longer be used).Performed By: #### PSASC #### [facility] [address] [place] [address] Dr. Forrest LaurenPOINT OF CARE GLUCOSEon 80-82-3937Fyyukba [Mass/Vol]255 mg/dL Critically mkbf67-211LmfCleveland Clinic [facility] HospitalComment on above:Performed By: #### POCGLUC #### [facility] [address] [place] [address] Matias KarenXR CHEST 1 Von [id number] CHEST 1 VEXAM: XR CHEST 1 V HISTORY: COUGH COMPARISON: [...] Electronically authenticated by: AMARIS WALKER Date: 2020-12-06 22:04NoProMedica Memorial HospitalINSULINon 11-12-5506Piprpxx33.9 uIU/mLNormal2.6-24.9[facility] HospitalComment on above:Performed By: #### PSASC #### [facility] [address] [place] [address] Dr. Forrest Lares AUTO DIFFon [id number] #0.1 103/ulNormal0.0-0.1The [facility] HospitalComment on above:Performed By: #### CBC #### [facility] [address] [place] [address] Matias KarenBasophils/100 WBC (Bld)0.6 %Normal0.2-2.0[facility] Comment on above:Performed By: #### CBC #### [facility] [address] [place] [address] Matias KarenEO #0.4 103/ulNormal0.0-0.7The [facility] HospitalComment on above: Performed By: #### CBC #### [facility] [address] [place] [address] Matias KarenEosinophils/100 WBC (Bld)4.2 %Normal0.9-7.0The [facility] Comment on above:Performed By: #### CBC #### [facility] [address] [place] [address] Matias KarenErythrocyte distribution width (RBC) [Ratio]13.1 %Mtvcut49.0-15.0The [facility] HospitalComment on above:Performed By: #### CBC #### [facility] [address] [address] Matias KarenHematocrit (Bld) [Volume fraction]50.2 %Bdgpez66.0-54.0The [facility] HospitalComment on above:Performed By: #### CBC #### [facility] [address] [place] [address] Matias KarenHemoglobin (Bld) [Mass/Vol]16.6 g/oVTbhiha32.0-18.0The [facility] HospitalComment on above:Performed By: #### CBC #### [facility] [address] [place] [address] Matias KarenIG #0.05 10e3/ulCritically high0.00-0.03The [facility] HospitalComment on above:Performed By: #### CBC #### [facility] [address] [place] [address] Matias KarenIG %0.6 %Critically high0.0-0.5The [facility] HospitalComment on above:Performed By: #### CBC #### [facility] [address] [place] [address] Matias KarenLYMPH #1.9 103/ulNormal1.2-3.8The [facility] HospitalComment on above: Performed By: #### CBC #### [facility] [address] [place] [address] Matias KarenLymphocytes/100 WBC (Bld)22.2 %Nqpdrb66.5-60.0The [facility] Comment on above:Performed By: #### CBC #### [facility] [address] [place] [address] Matias KarenMANUAL DIFF REQNONormalThe [facility] HospitalComment on above: Performed By: #### CBC #### [facility] [address] [place] [address] Matais KarenMCH (RBC) [Entitic mass]29.4 tuDpghyi49.9-34.0The [facility] Comment on above:Performed By: #### CBC #### [facility] [address] [address] Matias RivasMCHC (RBC) [Mass/Vol]33.1 g/jJYfwdru14.9-35.2The [facility] Comment on above:Performed By: #### CBC #### [facility] [address] [place] [address] Matias RodasenMCV (RBC) [Entitic vol]88.8 pNNqgilw98.0-94.0The [facility] Comment on above:Performed By: #### CBC #### [facility] [address] [place] [address] Matias RodasenMONO #0.7 103/ulNormal0.3-0.8The [facility] HospitalComment on above: Performed By: #### CBC #### [facility] [address] [place] [address] Matias KarenMonocytes/100 WBC (Bld)7.7 %Normal1.7-12.0[facility] Comment on above:Performed By: #### CBC #### [facility] [address] [place] [address] Matias RodasenNEUT #5.7 103/ulNormal1.4-6.5The [facility] HospitalComment on above: Performed By: #### CBC #### [facility] [address] [place] [address] Matias KarenNeutrophils/100 WBC (Bld)64.7 %Fxilrh09.0-75.0The [facility] Comment on above:Performed By: #### CBC #### [facility] [address] [place] [address] Matias KarenPlatelet mean volume (Bld) [Entitic vol]10.4 fLNormal9.5-13.5The [facility] HospitalComment on above:Performed By: #### CBC #### [facility] [address] [place] [address] Matias EizvwNZD534 103/knSabuxm316-097Qzi [facility] HospitalComment on above: Performed By: #### CBC #### [facility] [address] [address] Matias KarenRBC5.65 106/ulNormal4.70-6.10The [facility] HospitalComment on above: Performed By: #### CBC #### [facility] [address] [place] [address] Matias RodasenWBC8.7 103/ulNormal4.0-11.0The [facility] HospitalComcorewell health [facility] on above: Performed By: #### CBC #### [facility] [address] [place] [address] Matias KarenFREE THYROXINE INDEX T7on 97-45-8030YXB8.11NoProMedica Memorial HospitalComcorewell health [facility] on above:Performed By: #### URIC, CMP, T7, PSASC, TSH, LIPID #### [facility] [address] [place] [address] Matias RpwzuG1Q32.0 %Uxabvl10.5-40.5The [facility] HospitalComcorewell health [facility] on above: Performed By: #### URIC, CMP, T7, PSASC, TSH, LIPID #### [facility] [address] [place] [address] Matias KarenT4 [Mass/Vol]6.20 ug/dLNormal5.53-11.00The [facility] on above:Performed By: #### URIC, CMP, T7, PSASC, TSH, LIPID #### [facility] [address] [place] [address] Matias KarenGLYCOHEMOGLOBIN A1Con [id number] RECOMMENDATIONADA THERAPEUTIC TARGET 6.0 - 7.0 ACTION SUGGESTED > 7.0NoProMedica Memorial HospitalComcorewell health [facility] on above:Performed By: #### A1C #### [facility] [address] [place] [address] Matias KarenGlucose [Mass/Vol]266 mg/dLNoProMedica Memorial HospitalComcorewell health [facility] on above:Performed By: #### A1C #### [facility] [address] [place] [address] Matias IxwmeVhD7a (Bld) [Mass fraction]10.9 %Critically high<=6.0The Stan HospitalComment on above:Performed By: #### A1C #### [facility] [address] [address] Matias RivasLIPID PROFILEon [id number]-HDL RATIO NORMSCincinnati VA Medical CenterComment on above:Result Comment: 3.3 - 4.4 LOW RISK 4.4 - 7.1 AVERAGE RISK 7.1 - 11.0 MODERATE RISK >11.0 HIGH RISKPerformed By: #### PSASC #### [facility] [address] [address] [address] Forrest LaurenCholesterol [Mass/Vol]110 mg/dLNormal<=200[facility] Comment on above:Performed By: #### PSASC #### [facility] [address] [address] [address] Forrest LaurenCholesterol in HDL [Mass/Vol]36 mg/dLRegional Medical Center Comment on above:Performed By: #### PSASC #### [facility] [address] [address] [address] Forrest LaurenCholesterol in LDL [Mass/Vol]36.2 mg/dLRegional Medical CenterComment on above:Performed By: #### PSASC #### [facility] [address] [place] [address] Dr. Forrest LaurenCholesterol.total/Cholesterol in HDL [Mass ratio]3.1 {ratio} NormalCleveland Clinic Akron General Lodi HospitalComment on above:Performed By: #### PSASC #### [facility] [address] [address] [address] Forrest LaurenHDL NORMAL> or = 60 mg/dl - LOW CARDIOVASCULAR RISK <40 mg/dl - HIGH CARDIOVASCULAR RISKRegional Medical CenterComment on above:Performed By: #### PSASC #### [facility] [address] [place] [address] Dr. Forrest LaurenLDL CALC NORMALSEE [facility] Mary's Medical CenterComment on above:Result Comment: <100 mg/dl OPTIMAL 100 - 129 mg/dl NEAR OR ABOVE OPTIMAL 130 - 159 mg/dl BORDERLINE HIGH 160 - 189 mg/dl HIGH >190 mg/dl VERY HIGH Performed By: #### PSASC #### [facility] [address] [address] [address] Forrest LaurenTriglyceride [Mass/Vol]189 mg/dLCritically high<=150The [facility] HospitalComment on above:Performed By: #### PSASC #### [facility] [address] [address] [address] Forrest LaurenVLDL CALC37.8 mg/dLNormalThe [facility] HospitalComment on above: Performed By: #### PSASC #### [facility] [address] [address] [address] Forrest LaurenPROF 14(COMP METB)on 18-63-3825Kzatyei [Mass/Vol]4.1 g/dLNormal 3.5-5.0The [facility] HospitalComment on above:Performed By: #### URIC, CMP, T7, PSASC, TSH, LIPID #### [facility] [address] [place] [address] Matias KarenAlbumin/Globulin [Mass ratio]1.2 {ratio}NormalCleveland Clinic [facility] Comment on above:Performed By: #### URIC, CMP, T7, PSASC, TSH, LIPID #### [facility] [address] [place] [address] Matias KarenALP [Catalytic activity/Vol]80 U/KHmvhex79-844Erl [facility] Comment on above:Performed By: #### URIC, CMP, T7, PSASC, TSH, LIPID #### [facility] [address] [place] [address] Matias KarenALT [Catalytic activity/Vol]42 U/PWkgmyb18-05Gzx [facility] Comment on above:Performed By: #### URIC, CMP, T7, PSASC, TSH, LIPID #### [facility] [address] [place] [address] Matias KarenAnion gap [Moles/Vol]12.3 mmol/LNormalThe [facility] HospitalComment on above:Performed By: #### URIC, CMP, T7, PSASC, TSH, LIPID #### [facility] [address] [address] Matias KarenAST [Catalytic activity/Vol]24 U/OJlalfk45-44Pgd [facility] Comment on above:Performed By: #### URIC, CMP, T7, PSASC, TSH, LIPID #### [facility] [address] [address] Matias KarenBilirubin [Mass/Vol]1.3 mg/dLNormal0.2-1.3The [facility] Comment on above:Performed By: #### URIC, CMP, T7, PSASC, TSH, LIPID #### [facility] [address] [address] Matias KarenCalcium [Mass/Vol]9.3 mg/dLNormal8.4-10.2[facility] Comment on above:Performed By: #### URIC, CMP, T7, PSASC, TSH, LIPID #### [facility] [address] [address] Matias KarenChloride [Moles/Vol]103 mmol/TOdrang50-477Sne [facility] Comment on above:Performed By: #### URIC, CMP, T7, PSASC, TSH, LIPID #### [facility] [address] [address] Matias KarenCO2 [Moles/Vol]30.0 mmol/UFcabss05.0-30.0[facility] Comment on above:Performed By: #### URIC, CMP, T7, PSASC, TSH, LIPID #### [facility] [address] [place] [address] Matias KarenCreatinine [Mass/Vol]1.20 mg/dLNormal0.66-1.25The [facility] Comment on above:Performed By: #### URIC, CMP, T7, PSASC, TSH, LIPID #### [facility] [address] [place], [place] [id number] Matias KarenEGFR-AF SURINAMESE>60Normal>=60The [facility] HospitalComment on above: Performed By: #### URIC, CMP, T7, PSASC, TSH, LIPID #### [facility] [address] [address] Matias KarenEGFR-NON AF SURINAMESE>60Normal>=60The [facility] HospitalComment on above:Performed By: #### URIC, CMP, T7, PSASC, TSH, LIPID #### [facility] [address] [place] [address] Matias KarenGlobulin (S) [Mass/Vol]3.5 g/dLNormalThe [facility] HospitalComment on above:Performed By: #### URIC, CMP, T7, PSASC, TSH, LIPID #### [facility] [address] [place] [address] Matias KarenGlucose [Mass/Vol]269 mg/dLCritically byap49-079Rjj [facility] HospitalComment on above:Performed By: #### URIC, CMP, T7, PSASC, TSH, LIPID #### [facility] [address] [place] [address] Matias KarenPotassium [Moles/Vol]4.3 mmol/LNormal3.4-5.0The [facility] Comment on above:Performed By: #### URIC, CMP, T7, PSASC, TSH, LIPID #### [facility] [address] [place] [address] Matias KarenProtein [Mass/Vol]7.6 g/dLNormal6.1-8.2The [facility] HospitalComment on above:Performed By: #### URIC, CMP, T7, PSASC, TSH, LIPID #### [facility] [address] [place] [address] Matias KarenSodium [Moles/Vol]141 mmol/CJqywzg030-483Cav [facility] Comment on above:Performed By: #### URIC, CMP, T7, PSASC, TSH, LIPID #### [facility] [address] [place] [address] Matias KarenUrea nitrogen [Mass/Vol]17.0 mg/dLNormal9.0-20.0The [facility] HospitalComment on above:Performed By: #### URIC, CMP, T7, PSASC, TSH, LIPID #### [facility] [address] [place], [place] [address] Matias KarenUrea nitrogen/Creatinine [Mass ratio]14.2 mg/mgNoProMedica Memorial HospitalComment on above:Performed By: #### URIC, CMP, T7, PSASC, TSH, LIPID #### [facility] [address] [address] Matias RodasenTSHon 54-80-1810CUD8.574 uIU/mLNormal0.470-4.680The [facility] HospitalComment on above:Performed By: #### PSASC #### [facility] [address] [address] [address] Forrest Levy Trinity Health SystemComment on above: Result Comment: <0.34 UIU/ml HYPERTHYROID 0.34-5.60 UIU/ml EUTHYROID >5.60 UIU/ml HYPOTHYROIDPerformed By: #### PSASC #### [facility] [address] [place] [address] Dr. Forrest LaurenURIC ACID SERUMon [id number] [Mass/Vol]4.8 mg/dLNormal 3.5-8.5The [facility] HospitalComment on above:Performed By: #### PSASC #### [facility] [address] [address] [address] Forrest LaurenCardiovascular Lab Reporton [id number] Lab Report [facility]: [id number] Physician: Jerod Miller M.D.Medicine Service Date: 2017Division of Birthdate: 6Cardiology Room #: CCAdult Cardiovascular[address] [address]Hcsdl Fax Cardiovascular Laboratory ReportINDICATION: Nabeel Bonilla is a 62-year-old man known to have history ofhypertension and he was evaluated recently in Cardiology Clinic because ofmitral regurgitation. His followup echocardiogram showed improvement ofmitral regurgitation after control of his blood pressure. He continued tohave symptoms of shortnessof breath on exertion. A stress test showedbasal lateral ischemia. He was referred for cardiac catheterization.PROCEDURES:1. Right heart catheterization.2. Access into the right internal jugular veinunder ultrasound guidance.3. Bilateral selective coronary angiography from the left radial access.DESCRIPTION OF PROCEDURE: Procedure was explained to the patient withrisks and benefits. He signed informed consent. He was brought to cathlab in a fasting state. The right neck area was prepped and draped inusual fashion. Using micropuncture technique and ultrasound guidance,access was obtained in the right internal jugular vein and a 6-Libyan x 11cm sheath was placed. A 6-Libyan Griffith catheter was used for right heartcatheterization with measurement of pressures and calculation of cardiacoutput using the estimated Luke method. Griffith catheter was removed.Using ultrasound guidance and micropuncture technique, access was obtainedin the left radial artery and a 6-Libyan x 11 cm Hydrophilic sheath wasadvanced. Verapamil was given through the sheath and heparin wasadministered intravenously. Note that Samuel's test was favorable.Bilateral selective coronary angiography was then performed using 6- FrenchJL4 and JR4 diagnostic catheters. Catheters were removed. [...] a right dominant circulation.Left main: This arises fromleft coronary cusp. It trifurcates into leftanterior descending, ramus and circumflex vessels. The left main isangiographically normal.Left anterior descending: This is angiographically normal.Circumflex vessel is angiographically normal.Ramus vessel is angiographically normal.Right coronary artery. This arises from the right coronary cusp. It is alarge and dominant vessel. It is angiographicallynormal.SUMMARY OF THE FINDINGS:1. Normal coronary angiogram.2. Normal filling pressures.3. Normal pulmonary arterial pressures.4. Normal cardiac output and cardiac index.RECOMMENDATIONS:Continue current medical therapy and follow up in Cardiology Clinic.Electronically Signed by:Jerod Staton M.D. 08/11/2017 03:22 A Jerod Staton M.D.Date Dict: 08/02/2017/02:42 P/Jerod Staton M.D.Date Trans: 08/03/2017 11:29 A/Get_JN:[id number]: Neville Mata D.O. [address] [place] [address] [place] [address] Vital Signs Date TimeVital SignValuePerforming UoosqnvfkMosfiaoc49-27-4325 10:31-0400Body mass index (BMI) [Ratio]23.51 kg/m2Rg Winston MD Work Phone: [facility]05-15-2025 10:31-0400Body ysxktd48.2 kgRg Winston MD Work Phone: [facility]05-15-2025 10:310400Diastolic blood zgrleqbz16 mm[Hg]Rg Winston MD Work Phone: [facility]05-15-2025 10:31-0400Heart rate59 /min Rg Winston MD Work Phone: [facility]05-15-2025 10:31-0400Respiratory rate 18 /minSdebbie Winston MD Work Phone: [facility]05-15-2025 10:31-5685VwZ4% (BldA) [Mass fraction]98 %Rg Winston MD Work Phone: [facility]05-15-2025 10:31-0400Systolic blood mm[Hg]Rg Winston MD Work Phone: [facility]04-10-2025 10:00-0400Body mass index (BMI) [Ratio]22.98 kg/m2Rg Winston MD Work Phone: [facility]04-10-2025 10:00-0400Body temperature 97.3 [degF]Rg Winston MD Work Phone: [facility]04-10-2025 10:00-0400Body ztunva26.3 kgRg Winston MD Work Phone: [facility]04-10-2025 10:00-0400Diastolic blood bzizotdt77 mm[Hg]Rg Winston MD Work Phone: [facility]04-10-2025 10:00-0400Heart rate66 /min Rg Winston MD Work Phone: [facility]04-10-2025 10:00-0400Respiratory rate 16 /minSdebbie Winston MD Work Phone: [address] [address]-10-2025 10:00-2862FlV7% (BldA) [Mass fraction]99 %Rg Winston MD Work Phone: [facility]04-10-2025 10:00-0400Systolic blood xcswidkh017 mm[Hg]Rg Winston MD Work Phone: [facility]04-02-2025 09:59-0400Body mass index (BMI) [Ratio]23.07 kg/m2Rg Winston MD Work Phone: [facility]04-02-2025 09:59-0400Body temperature 97.9 [degF]Rg Winston MD Work Phone: [address] [address]-02-2025 09:59-0400Body kokvol69.6 kgRg Winston MD Work Phone: [address] [address]-02-2025 09:59-0400Diastolic blood kdeskaso65 mm[Hg]Rg Winston MD Work Phone: [facility]04-02-2025 09:59-0400Heart rate65 /min Rg Winston MD Work Phone: [facility]04-02-2025 09:59-0400Respiratory rate 16 /minSdebbie Winston MD Work Phone: [facility]04-02-2025 09:59-8902PqH1% (BldA) [Mass fraction]97 %Rg Winston MD Work Phone: [facility]04-02-2025 09:59-0400Systolic blood uabsvpjg849 mm[Hg]Rg Winston MD Work Phone: [facility]03-26-2025 10:23-0400Body mass index (BMI) [Ratio]23.26 kg/m2Rg Winston MD Work Phone: [facility]03-26-2025 10:23-0400Body temperature 97.5 [degF]Rg Winston MD Work Phone: [facility]03-26-2025 10:23-0400Body xyonbi47.3 kgRg Winston MD Work Phone: [facility]03-26-2025 10:23-0400Diastolic blood kkqvexeo49 mm[Hg]Rg Winston MD Work Phone: [facility]03-26-2025 10:23-0400Heart rate64 /min Rg Winston MD Work Phone: [facility]03-26-2025 10:23-0400Respiratory rate 16 /minSdebbie Winston MD Work Phone: [facility]03-26-2025 10:23-0924GfX2% (BldA) [Mass fraction]99 %Rg Winston MD Work Phone: [facility]03-26-2025 10:23-0400Systolic blood tihsjmur70 mm[Hg]Rg Winston MD Work Phone: [facility]03-18-2025 13:45-0400Body mass index (BMI) [Ratio]23.54 kg/m2Rg Winston MD Work Phone: [facility]03-18-2025 13:45-0400Body temperature 97.81 [degF]Rg Winston MD Work Phone: [phone]03-18-2025 13:45-0400Body .3 kgRg Winston MD Work Phone: [facility]03-18-2025 13:45-0400Diastolic blood exrjghie79 mm[Hg]Rg Winston MD Work Phone: [facility]03-18-2025 13:45-0400Heart rate61 /min Rg Winston MD Work Phone: [phone]03-18-2025 13:45-0400Respiratory rate 18 /minSdebbie Winston MD Work Phone: [facility]03-18-2025 13:45-1030NkQ4% (BldA) [Mass fraction]95 %Rg Winston MD Work Phone: [facility]03-18-2025 13:45-0400Systolic blood gbxqulbc584 mm[Hg]Rg Winston MD Work Phone: [facility]02-20-2025 09:12-0500Body sxiyxg118.2 cmSdebbie Winston MD Work Phone: [facility]02-20-2025 09:12-0500Body mass index (BMI) [Ratio]23.85 kg/m2Rg Winston MD Work Phone: [facility]02-20-2025 09:12-0500Body temperature 96.8 [degF]Rg Winston MD Work Phone: [facility]02-20-2025 09:12-0500Body expvkh22.4 kgRg Winston MD Work Phone: [facility]02-20-2025 09:12-0500Diastolic blood mm[Hg]Rg Winston MD Work Phone: [facility]02-20-2025 09:12-0500Heart rate62 /min Rg Winston MD Work Phone: [facility]02-20-2025 09:12-0500Respiratory rate 16 /minSdebbie Winston MD Work Phone: [facility]02-20-2025 09:12-8210DyK9% (BldA) [Mass fraction]98 %Rg Winston MD Work Phone: [facility]02-20-2025 09:12-0500Systolic blood mfocqqwq862 mm[Hg]Rg Winston MD Work Phone: [facility]01-02-2025 10:05-0500Body mass index (BMI) [Ratio]23.57 kg/x5Dmxdxwrfhld Deepa DO Work Phone: [facility] HospitalOknvqigrro04-93-9799 10:05-0500Body ejsnyq65.28 kgChristopher Deepa DO Work Phone: [facility] HospitalQzbbsxjxch87-15-0921 10:05-0500Diastolic blood iysjbafp32 mm[Hg]Christopher Deepa DO Work Phone: [facility] HospitalDsrfqdurby51-88-3475 10:05-0500Heart rate74 /min Christopher Deepa DO Work Phone: noSaint [facility] CenterQyebvhrwin70-13-2588 10:05-3162BhM8% (BldA) [Mass fraction]96 %Christopher Deepa DO Work Phone: noSaint [facility] CenterNdkwxvqubm43-20-1836 10:05-0500Systolic blood ymapzkjb18 mm[Hg]Christopher Deepa DO Work Phone: noSaint [facility] CenterAktvqenaaf57-18-4391 09:12-0500Body gkytbu697 cm Regis Ibarra MD Work Phone: [facility]12-24-2024 09:12-0500Body mass index (BMI) [Ratio]22.7 kg/k6QthhuRegis Ibarra MD Work Phone: [facility]12-24-2024 09:12-0500Body wiiuhyuzhsw50.3 [degF]Regis Ibarra MD Work Phone: [facility]12-24-2024 09:12-0500Body lmdzio00.2 kgRegis Ibarra MD Work Phone: [facility]11-12-2024 12:25-0500Body oxnrlt365 cmChristtorito Arenas DO Work Phone: [facility] HospitalSoafkqjboy35-01-0684 12:25-0500Body mass index (BMI) [Ratio]20.29 kg/u2Alyopryxzpg Deepa DO Work Phone: [facility] HospitalZklegbzrbo27-22-6940 12:25-0500Body xrillq15.67 kgChristopher Deepa DO Work Phone: [facility] HospitalLaicmlbunf17-80-5149 12:25-0500Diastolic blood lwuthhwf36 mm[Hg]Favianopher Deepa DO Work Phone: [facility] HospitalAjstkdibvz87-85-9948 12:25-0500Heart rate98 /min Christopher Deepa DO Work Phone: [facility] HospitalMmmvmvjcbd88-13-1014 12:25-1387PrU1% (BldA) [Mass fraction]93 %Christopher Deepa DO Work Phone: [facility] HospitalAiwdzgnqjl31-66-9292 12:25-0500Systolic blood gajwckgn916 mm[Hg]Elaner Deepa DO Work Phone: [facility] HospitalHuysvgmtzz30-90-0187 09:54-0400Diastolic blood luhtldph10 mm[Hg]Jassi ALEGRIA [phone]-OgrgwWood [facility] 06-03-2024 09:54-0400Heart lfoa101 /minMichael NILL [phone]-WbhmwWood [facility] 06-03-2024 09:54-0400Respiratory rate16 /minMichael NILL [phone]-JsrgnWood [facility] [place] 06-03-2024 09:54-0400Systolic blood htfyzpkz289 mm[Hg]Jassi AIRAM [phone]-CmjksWood [facility] 05-29-2024 06:42-0400Body .5 cmDO González Moon Work Phone: [facility]10-24-2024 06:42-0400 Body acdlvq55.47 kgDO González Moon Work Phone: [facility]06-17-2024 11:44-0400 Blood Pressure LocationMoody POP [facility]06-17-2024 11:44-0400Diastolic blood mm[Hg]Moody POP [facility]06-17-2024 11:44-0400Heart rate70 /minPatrick POP [facility]06-17-2024 11:44-0400Respiratory rate16 /minPatrick POP [facility]06-17-2024 11:44-0400Systolic blood npwhaflv763 mm[Hg]Moody POP [facility] Encounters Encounter DateEncounter TypeCare ProviderFacilityStart: 03-23-2025 End: 89-30-6262vlseagtzoiTTEDWHMer[facility] Start: 12-18-2024 End: 23-27-4541Paqwgch encounter procedureSdebbie Winston MD Work Phone: Radiation OncologyComment on above:Hodgkin lymphoma, unspecified Hodgkin lymphoma type, unspecified body region (HCC) (Primary Dx) Start: 12-18-2024 End: 02-56-2325lootdhddkjNUMV RAJANFacility:[facility] Hospitalt[facility]: 12-02-2024 End: 62-14-8270Yjzgcmqgg encounterSdebbie Winston MD Work Phone: Radiation OncologyStart: 11-17-2024 End: 72-88-6163onjgovzbckTQCP RAJANFacility:[facility] Hospitaltart: 11-14-2024 End: 90-96-8944pqntmpclhdWfzsryxeah Karuna RD Work Phone: Nutrition TherapyStart: 11-14-2024 End: 72-60-8983Fxbpcnjqn therapyJacquesanta Schumacher RD Work Phone: Nutrition TherapyComment on above:Nutrition Telephone (No answer/)Start: 11-14-2024 End: 46-04-1035mdifwgobaqKFEK RAJANFacility:[facility] Hospitaltart: 11-13-2024 End: 08-57-7111Phsxmyb encounter procedureSdebbie Winston MD Work Phone: Radiation OncologyComment on above:Hodgkin lymphoma, unspecified Hodgkin lymphoma type, unspecified body region (HCC) (Primary Dx) Start: 11-13-2024 End: 11-33-8279mqbfwfoitpBWMJ RAJANFacility:[facility] HospitalStart: 11-12-2024 End: 61-49-4683jljtctxszkXCKC RAJANFacility:[facility]: 11-11-2024 End: 46-26-0591luqdbkfvqyTOAV RAJANFacility:[facility]: 11-10-2024 End: 65-84-0682wvwddqtyhrEFVK RAJANFacility:[facility]: 11-07-2024 End: 10-11-4857tgsrauzdaxEYXR RAJANFacility:[facility]: 11-06-2024 End: 92-84-7960mcvlejlebqISMI JOSE ANTONIOANFacility:[facility] HospitalStart: 11-05-2024 End: 81-87-1441Esznnsx encounter procedureSdebbie Winston MD Work Phone: Radiation OncologyComment on above:Hodgkin lymphoma, unspecified Hodgkin lymphoma type, unspecified body region (HCC) (Primary Dx) Start: 11-05-2024 End: 38-67-8222bcbirspvxsYCNR JOSE ANTONIOANFacility:[facility] HospitalStart: 11-04-2024 End: 36-51-8361zsgscxcxxxXUKJ CATRACHITOFacility:[facility]tart: 11-03-2024 End: 92-04-1530gavtotwsytRFFX RAJANFacility:[facility]: 10-31-2024 End: 14-14-8616yivoovipkiHZPJ RAJANFacility:[facility]: 10-30-2024 End: 89-65-3481jznghqadrgMTMP RAJANFacility:[facility]: 10-29-2024 End: 10-22-3233Larhgwo encounter procedureSdebbie Winston MD Work Phone: Radiation OncologyComment on above:Hodgkin lymphoma, unspecified Hodgkin lymphoma type, unspecified body region (HCC) (Primary Dx) Start: 10-29-2024 End: 43-62-4329xlkvdxjnvsRLDJ RAJANFacility:[facility]: 10-28-2024 End: 93-94-8998fepevpaxfzBRIZ CATRACHITOFacility:[facility]: 10-27-2024 End: 49-20-2540tvojwmzuhuCVZK CATRACHITOFacility:[facility]: 10-24-2024 End: 30-64-7424xxpyhhdaagHYVJ RAJANFacility:[facility]: 10-23-2024 End: 00-79-3859pkgrcqqqrqGVGV CATRACHITOFacility:[facility]: 10-22-2024 End: 33-13-1219bpianmreswVMFH RAJANFacility:[facility]: 10-21-2024 End: 84-59-9285zkeeabnsmqVVSD RAJANFacility:[facility]: 10-21-2024 End: 04-58-2333Noucbzs encounter procedureSdebbie Winston MD Work Phone: Radiation OncologyComment on above:Hodgkin lymphoma, unspecified Hodgkin lymphoma type, unspecified body region (HCC) (Primary Dx) Start: 10-08-2024 End: 55-78-2914Ayxxdoe encounter procedureCcf ProviderUniversity Hospitals St[facility] DepartmentStart: 10-07-2024 End: 14-10-1191Ssipqxk encounter procedureSdebbie Winston MD Work Phone: Radiation OncologyStart: 10-07-2024 End: 58-22-6233Bgfmzhetw Oncology NoteSdebbie Winston MD Work Phone: Radiation OncologyComment on above:Simulation Note Treatment PlanningStart: 10-07-2024 End: 69-47-1576zygfdzgvknNBWV RAJANFacility:[facility]: 10-07-2024 End: 90-29-9369Tjbmtsq evaluation of patient and reportNurse Magalie Buckley Work Phone: Radiation OncologyComment on above:Hodgkin lymphoma, unspecified Hodgkin lymphoma type, unspecified body region (HCC) (Primary Dx) Start: 09-26-2024 End: 42-09-3882zkbpmnvaxiIwyjekdmrc Karuna RD Work Phone: Nutrition TherapyStart: 09-26-2024 End: 68-87-3572Atraphmcq therapyJacquesanta Karuna RD Work Phone: Nutrition TherapyComment on above:Nutrition Telephone Start: 09-25-2024 End: 92-85-2397Wkytbmyut encounterSdebbie Winston MD Work Phone: Radiation OncologyComment on above:Future Appointment (Schedule Simulation)Start: 09-25-2024 End: 74-41-1795nluzrxgyyqOdxdvy Weyer RNRadiation OncologyComment on above: Patient EducationStart: 09-25-2024 End: 11-30-2526Xwcoysw encounter procedureSdebbie Catrachito MD Work Phone: Radiation OncologyComment on above:Hodgkin lymphoma, unspecified Hodgkin lymphoma type, unspecified body region (HCC) (Primary Dx) Start: 09-23-2024 End: 59-41-7248Yutsvnunq encounterCleve Quinn PT Work Phone: noMS CI PTComment on above:Check PT statusStart: 09-19-2024 End: 98-26-0467Roeebayl SupportAlison Kailyn AUD Work Phone: [facility] and ThroatComment on above:Sensorineural hearing loss (SNHL) of both ears (Primary Dx)Start: 09-15-2024 End: 32-49-3130naplpewkpoEONILL [facility] Start: 09-08-2024 End: 93-86-8166Qjqllhfwv encounterRegis Ibarra MD Work Phone: [facility] ThroatStart: 09-01-2024 End: 61-28-8218Dqqyyt Christie Quinn PT Work Phone: [facility] CI PTStart: 09-01-2024 End: 27-72-3483Zepkcw Christie Quinn PT Work Phone: [facility] CI PTStart: 09-01-2024 End: 91-08-8299havejukqlcAunjel T Blackston PT Work Phone: NOMS CI PTComment on above:Polyneuropathy (Primary Dx); Poor balance; Weakness of both lower extremitiesStart: 08-22-2024 End: 31-95-9975Gldqfi flowsheetMelissa Kelbley PTANOMS CI PTStart: 08-22-2024 End: 26-61-0704Inowpm flowsheetMelissa Kelbley PTANOMS CI PTStart: 08-22-2024 End: 26-10-1696ufgkxybdbwKoiayqb Kelbley PTANOMS CI PTComment on above: Polyneuropathy (Primary Dx); Poor balance; Weakness of both lower extremitiesStart: 08-20-2024 End: 19-62-8521bvmakbnfofWkriul T Blackston PT Work Phone: noMS CI PTComment on above:Polyneuropathy (Primary Dx); Poor balance; Weakness of both lower extremitiesStart: 08-20-2024 End: 00-88-5346Umjzzh alisonRamon Lakshmi Quinn PT Work Phone: NOMS CI PTStart: 08-20-2024 End: 41-09-9477Djudjj flowsdreYonathanurvashi Lakshmi Quinn PT Work Phone: noms CI PTStart: 08-15-2024 End: 00-00-5492Mzkvvmfdb encounterRegis Ibarra MD Work Phone: [facility] Ear, Nose and ThroatStart: 08-13-2024 End: 00-13-5424Qzjwfnjvb encounterRegis Ibarra MD Work Phone: [facility] - ENTComment on above:Need office notes faxedStart: 08-12-2024 End: 04-97-1394Hfnvyhiaf Result EncounterChristopher Deepa DO Work Phone: noms External Department UnsolicitedStart: 08-12-2024 End: 02-47-6999Gffufoyru Result EncounterChristopher Deepa DO Work Phone: noms External Department UnsolicitedStart: 08-12-2024 End: 58-66-6912Wungkerwg encounterRegis Ibarra MD Work Phone: [facility] Ear, Nose and ThroatStart: 08-07-2024 End: 37-55-4564Htpcbv flowsheetChristopher Deepa DO Work Phone: NOJZ ST[facility] STATE ROUTEStart: 08-07-2024 End: 67-30-5908Hnemgl flowsheetChristopher Deepa DO Work Phone: noms ST[facility] STATE ROUTEStart: 08-07-2024 End: 57-40-4529Qoyzgm outpatient visit 25 minutesChristopher Deepa DO Work Phone: noms ST[place] STATE ROUTEComment on above:Lymphoma, unspecified body region, unspecified lymphoma type (CMS/HCC) (Primary Dx); Malnutrition, unspecified type (CMS/HCC); PolyneuropathyStart: 08-07-2024 End: 22-93-7009wvzakzvezkPFRNYTXJQAU HASSETTNot AvailableStart: 07-29-2024 End: 37-83-1727Ghnahk outpatient new 45 minutesRegis Ibarra MD Work Phone: [facility], Nose and ThroatComment on above:Sensorineural hearing loss, asymmetrical (Primary Dx); Vestibular schwannoma (CMS-HCC); Hodgkin lymphoma, unspecified Hodgkin lymphoma type, unspecified body region (CMS-HCC)Start: 07-10-2024 End: 20-06-3083Myudys flowsheetChristopher Deepa DO Work Phone: noms [facility] STATE ROUTEStart: 07-10-2024 End: 09-93-7754Foyuzt flowsheetChristopher Deepa DO Work Phone: noms [facility] STATE ROUTEStart: 07-10-2024 End: 26-53-0268Kryomce encounter procedureChristopher Deepa DO Work Phone: noms ST[place] STATE ROUTEComment on above:Weakness (Primary Dx); PolyneuropathyStart: 07-10-2024 End: 34-55-8864wschfdyaoxVOHTWNFIAUQ HASSETTNot AvailableStart: 07-02-2024 End: 13-68-7670Dnxzkqn encounter procedureLillian Nagel AUD Work Phone: noms AUDComment on above:Sensorineural hearing loss, bilateral (Primary Dx)Start: 07-02-2024 End: 04-24-3685ebrtrjenusAMDXUKL S WRIGHTNot AvailableStart: 07-02-2024 End: 90-95-6450Ppobqc flowsEla Nagel AUD Work Phone: noMS AUDStart: 07-02-2024 End: 13-65-6359Qnfgdf Jessica Nagel AUD Work Phone: noMS AUDStart: 06-27-2024 End: 33-24-3295Robjxt Jessica Nagel AUD Work Phone: noMS AUDStart: 06-27-2024 End: 82-48-6184Oflxvg Jessica Nagel AUD Work Phone: noMS AUDStart: 06-27-2024 End: 07-82-4072Cujltvp encounter procedureLillian Nagel AUD Work Phone: noMS AUDComment on above:Sensorineural hearing loss, bilateral (Primary Dx)Start: 06-27-2024 End: 73-58-9694jdtxklbmvkDZNDTAL S WRIGHTNot AvailableStart: 06-19-2024 End: 29-52-1448atkimarrsdBWJQZSD [facility] Start: 06-17-2024 End: 72-95-7698Hbezbp flowsheetChristopher Deepa DO Work Phone: noMS ST[facility] STATE ROUTEStart: 06-17-2024 End: 38-15-7839Nmplzq flowsheetChristopher Deepa DO Work Phone: noms [facility] STATE ROUTEStart: 06-17-2024 End: 38-64-1556Iwqqwp outpatient new 60 minutesChristopher Deepa DO Work Phone: noMS STAN STATE ROUTEComment on above: Malnutrition, unspecified type (CMS/HCC) (Primary Dx); Weakness; History of benign schwannoma; Lymphoma, unspecified body region, unspecified lymphoma type (CMS/HCC)Start: 06-17-2024 End: 74-33-8569rjfczcfbwrSQSKHQGTBRD HASSETTNot AvailableStart: 06-16-2024 End: 30-47-2289Uprekyb encounter procedureNoms Aud Audiology Aid - Kathleen Cunningham AUDComment on above: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)Start: 06-16-2024 End: 88-16-9992nsjwnkpogbOGKOYK KAILucy AvailableStart: 06-09-2024 End: 17-56-0305ttuatoknwhQwdmxfz R WATERSFacility:EU BellevueStart: 06-09-2024 End: 87-87-5365Nffdlvm encounter procedureMoody POP [facility] Stan start: 06-03-2024 End: 49-81-6374xxcyundrbqWdusesm R NILLFacility:CD:[id number]: 06-03-2024 End: 97-06-0410Rddqtox encounter procedureMichael R NILL [phone]-DtltgWood [facility] Hospital [facility] [place] Start: 05-29-2024 End: 10-02-9932Lgsjuzc encounter procedureDO González Moon Work Phone: [facility] Work Phone: Start: 05-29-2024 End: 52-15-3970xilghitbxkRY Gonzálezisaias Harriss Work Phone: [facility] Work Phone: Start: 05-26-2024 End: 01-32-4966Bgzevu flowsheetYanna Harrison CCC-A Work Phone: noms CI AUDStart: 05-26-2024 End: 21-34-3493Bkjxmj flowsheetDeashleeah A Piedad CCC-A Work Phone: NOMS CI AUDStart: 05-26-2024 End: 31-86-3456Xlsuushw SupportDedonald Harrison CCC-A Work Phone: noms CI AUDComment on above: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)Start: 04-30-2024 End: 75-78-2527vxbdhveqzwLgimcsx R NILLFacility: BellevueStart: 04-30-2024 End: 08-31-0698Qyaovzk encounter procedureMichael R NILL [phone]-Mjffw General Surgery [place] Start: 46-14-4768ywtfvpeitzXxvuibj NILLFacility:[facility] CenterGiancarlotart: 04-23-2024 End: 41-10-9574lsonttubcsNI González Moon Work Phone: [facility] Work Phone: Start: 04-23-2024 End: 90-83-9845Fqcflgnz ReferredDO [employer] Work Phone: [facility] Path Spec [facility] HospStart: 38-98-6202jmlbanlpyrMtzawen NILLFacility: CalinkStart: 04-22-2024 End: 87-47-3898hgbqsogsnrJnjgxve R NILLFacility:CD:[id number]: 04-21-2024 Non-patient / Non-visitDO González Moon Work Phone: [facility] Work Phone: Start: 04-11-2024 End: 69-91-4744avrlzppcheRL González [employer] Work Phone: [facility] Work Phone: Start: 04-11-2024 End: 31-71-2552Chhswwkx ReferredDO [employer] Work Phone: [facility] Spec [facility] HospStart: 02-11-2024 End: 63-32-4422wgxkzjjdagHvskhss R WATERSFacility:CD:[id number]: 01-21-2024 End: 38-02-5485lgxdrgjyyoSntwswe Rosi POPFacility:EU CaseyueStart: 01-21-2024 End: 85-07-5743Stvwxhl encounter procedurePadorian Rosi POP [facility] start: 55-94-4954omhgioirksXxxlonf NILLFacility:EU [place]uskyStart: 08-26-2021 End: 49-32-4304xwyfmhorhwZVDUSL ALLENFacility:Q1Dyuvn: 15-43-9970iajyngbdyx AILIN ALLENFacility:V4Pcgur: 12-06-2020 End: 52-58-7091gflghciswjDKMWEZW D KATKOFacility:J2Wxhse: 89-78-0625Xnscbgknx for general adult medical examination without abnormal findingsPAROBERTO CARLOS Garcia [facility] HospitalStart: 10-01-2020 End: 82-76-3559kffqsuampdOLBGJQ ALLENFacility:K3Kdcbg: 10-01-2020 End: 15-71-5602Pdujmvqpq for general adult medical examination without abnormal findingsPAMELA ALLENFacility:R8Zmbdo: 2017 End: 84-41-7087UupkywxsscFFTHVNYD UNKNOWNFacility:UTMCStart: 07-24-2017 End: 60-34-7692UggsgcgmvpWQTWYAD PHYSICIANFacility:UTMCStart: 07-19-2017 End: 14-23-6471KzssewpnkwNXITZUF PHYSICIANFacility:UTMCStart: 06-18-2017 End: 93-19-4714NrnrocgmcpHGFJGIN PHYSICIANFacility:[facility] Procedures DateProcedureProcedure DetailPerforming ClinicianStart: 36-43-4734SJF HEMOGLOBIN P5JAwytuuqyybf Deepa DO Work Phone: Start: 07-10-2024 End: 33-34-5717Cphndx emg ea extremty w/paraspinl area completeChristopher Deepa DO Work Phone: Start: 42-17-5525Psvmqthmb of implantable venous access portMoody POP Start: 62-28-5871GU pre/post mri xrayDO González Mono Work Phone: Start: 95-76-2037INB of cervical spine with contrastDO González Moon Work Phone: Start: 93-12-7723PWX of headDO González Moon Work Phone: Start: 11-88-7370Zmusavvxph biopsyMichael NILL Start: 67-39-4449VTE screeningPAMELA ALLENComment on above:Performed By: #### PSASC #### [facility] [address] [place] [address] Dr. Forrest LaurenStart: 61-06-4910GJF screeningPAMELA ALLENComment on above: Performed By: #### URIC, CMP, T7, PSASC, TSH, LIPID #### [facility] [address] [place] [address] Matias Sesaytart: 12-36-2263XfvqvtsevjdDaetyyn POP Start: 39-63-2193Hbiywikg of brain (disorder)[facility] Back structure, excluding neck (body structure)[facility]y zahn[facility]zt[facility].ch Removal of acoustic neuromaMichael NILL Spinal arthrodesisMichael NILL TonsillectomyDimasBacchus Vascularallie zahnarztzentrum.ch Plan of Treatment DateCare ActivityDetailAuthorStart: 91-27-5513Lpskbpy ScreeningTobacco Screening [facility] [employer] SystemStart: 54-66-2912Spzqu BMI ScreeningAdult BMI Screening [facility] [employer] SystemStart: 94-15-1021Zbjuwqp ScreeningTobacco Screening [facility] [employer] SystemStart: 04-20-2025 End: 13-30-0662Csshtln encounter /15/2025 10:00 AM EDT Office Visit Radiation Oncology [address] [place] [address] Rg Winston MD [address] [place] [address] 4 month follow upRadiation OncologyComment on above:4 month follow up Start: 67-96-5854Jtudrtqgv vaccinationInfluenza Vaccine (Season Ended)[facility]: 12-18-2024 End: 04-71-9889Npcmsar encounter xjzyonkjp14/15/2025 10:30 AM EDT Office Visit Radiation Oncology [address] [place] [address] Rg Winston MD [address] [place] [address] final radiation follow upRadiation OncologyComment on above:final radiation follow upStart: 12-15-2024 End: 22-09-1092Mfkzkbd encounter mguribkcr13/12/2025 4:00 PM EDT Office Visit Radiation Oncology [address] [place] [address] Rg Winston MD [address] [place] [address] final radiation follow upRadiation OncologyComment on above:final radiation follow upStart: 11-19-2024 End: 27-98-6784Paaratv encounter rjethqxnm78/16/2025 10:00 AM EDT Office Visit Radiation Oncology [address] [place] [address] Rg Winston MD [address] [place] [address] Location: SA-ON TREATMENT REVRadiation OncologyComment on above:Location: SA-ON TREATMENT REVStart: 11-17-2024 End: 11-72-2826Cdfdqdt encounter wosotwjox39/14/2025 9:45 AM EDT Appointment Radiation Oncology [address] [place] [address] rt axilla/ neckRadiation OncologyComment on above:rt axilla/ neckStart: 11-14-2024 End: 07-72-0935Zyjumrg encounter ngxfmaowu69/11/2025 2:15 PM EDT Education Nutrition Therapy [address] [place] [address] Margo Schumacher, BRITTANY [address] [place] [address] Nutrition consultNutrition TherapyComment on above:Nutrition consultStart: 11-14-2024 End: 82-54-1021Znrahnd encounter wegoutacc17/11/2025 9:45 AM EDT Appointment Radiation Oncology [address] [place] [address] rt axilla/ neckRadiation OncologyComment on above:rt axilla/ neckStart: 11-13-2024 End: 70-76-7293Imcgicq encounter qciyvenxp72/10/2025 9:45 AM EDT Appointment Radiation Oncology [address] [place] [address] rt axilla/ neckRadiation OncologyComment on above:rt axilla/ neckStart: 11-12-2024 End: 64-24-6584Gjnmwhs encounter procedureRadiation OncologyComment on above:rt axilla/ neckLocation: SA-ON TREATMENT REVStart: 11-11-2024 End: 03-19-0406Chfeffu encounter uvssoqoky75/08/2025 9:45 AM EDT Appointment Radiation Oncology [address] [place] [address] rt axilla/ neckRadiation OncologyComment on above:rt axilla/ neckStart: 11-10-2024 End: 85-25-0132Dbklxot encounter pfbelwupo91/07/2025 9:45 AM EDT Appointment Radiation Oncology [address] [place] [address] rt axilla/ neckRadiation OncologyComment on above:rt axilla/ neckStart: 11-07-2024 End: 04-86-8951Hacymlg encounter /04/2025 9:45 AM EDT Appointment Radiation Oncology [address] [place] [address] rt axilla/ neckRadiation OncologyComment on above:rt axilla/ neckStart: 11-06-2024 End: 11-81-8168Rkvflaa encounter wzdfniljp64/03/2025 9:45 AM EDT Appointment Radiation Oncology [address] [place] [address] rt axilla/ neckRadiation OncologyComment on above:rt axilla/ neckStart: 11-05-2024 End: 19-34-0519Jydvptn encounter procedureRadiation OncologyComment on above:rt axilla/ neckLocation: SA-ON TREATMENT REVStart: 11-04-2024 End: 66-31-9460Yevlrsa encounter qjqgpjhse70/01/2025 9:45 AM EDT Appointment Radiation Oncology [address] [place] [address] rt axilla/ neckRadiation OncologyComment on above:rt axilla/ neckStart: 11-03-2024 End: 55-48-4576Mcgpxyx encounter hbnrlzaif87/31/2025 3:45 PM EDT Office Visit [facility] [address] [place] [address] [place] [address] Jassi Yanes MD [address] [place] [address] [address] [place], [place] [id number] [facility], Nose and ThroatStart: 10-21-2024 End: 69-13-4029Fvctesm encounter procedureRadiation OncologyComment on above:NEW START AXILLAAxilla- would like morningsStart: 10-20-2024 End: 96-76-3662Uufaall encounter procedureRadiation OncologyComment on above:NEW START AXILLA- ANN PTAxilla- would like mornings- ANN PTStart: 10-07-2024 End: 03-33-0752Qpiuuvy encounter ayaygipuv05/04/2025 1:30 PM EST Office Visit Radiation Oncology [address] [place] [address] Rg Winston MD [address] [place] [address] RT AXILLA/NECK W/ IV - CONSENT DONERadiation OncologyComment on above:RT AXILLA/NECK W/ IV - CONSENT DONEStart: 10-07-2024 End: 16-56-4306Qpqfrrk evaluation of patient and krbwan3910/07/2024 1:15 PM EST Nurse Visit Radiation Oncology [address] [place] [address] Ina, Nurse Radt [address] [place] [address] Nurse VisitRadiation OncologyComment on above:Nurse VisitStart: 09-26-2024 End: 58-65-7969Lpifglmpd zfnehla5709/26/2024 1:30 PM EST Education Nutrition Therapy [address] [place] [address] Margo Schumacher, RD [address] [place] [address] ArrivedNutrition TherapyComment on above:ArrivedStart: 09-19-2024 End: 52-61-2115Fmjxkjgy Mkfjulr3409/19/2024 9:00 AM EST Clinical Support [facility] [address] [facility] [place] [address] Pilar Avina, AUD [address] [place] [address] [facility], Nose and ThroatStart: 21-07-4244Lscuevzns for malignant neoplasm of colonUniversity Hospitals St. [facility] Start: 09-04-2024 End: 57-85-8058Omhjpxt encounter procedureNOMS [facility] ROUTEStart: 09-01-2024 End: 95-82-3150sguhhvtheeFIKP CI PTComment on above:ArrivedStart: 08-29-2024 End: 23-85-1245zvypfrypmk50/24/2025 9:00 AM EST Treatment [facility] PT [address] [place] [id number] Aurea Sanchez, TUBE MOLDER FIBERGLASS NOMS CI PTStart: 08-27-2024 End: 90-96-9646jjpfnlrkls76/22/2025 9:00 AM EST Treatment [facility] PT [address] [place] [address] Aurea Sanchez, TUBE MOLDER FIBERGLASS NOMS CI PTStart: 08-22-2024 End: 02-80-7416lbketvfvtrWEMU CI PTComment on above:Polyneuropathy (Primary Dx); Poor balance; Weakness of both lower extremitiesStart: 08-07-2024 End: 02-42-5143Rpjfysdsq (Vitamin B12) [Mass/volume] in Serum or PlasmaVitamin B12 Lab Routine Lymphoma, unspecified body region, unspecified lymphoma type (CMS/HCC) Expected: 08/07/2024 (Approximate), Expires: 08/07/2025[facility] Comment on above:Expected: 08/07/2024 (Approximate), Expires: 08/07/2025Start: 08-07-2024 End: 02-02-4280Vjxdjh, serumCopper, serum Lab Routine Lymphoma, unspecified body region, unspecified lymphoma type (CMS/HCC) Expected: 08/07/2024 (Approximate), Expires: 08/07/2025[facility] HealthcareComment on above:Expected: 08/07/2024 (Approximate), Expires: 08/07/2025Start: 08-07-2024 End: 70-34-0265Bbcxiszkfq A1c/Hemoglobin.total in BloodHemoglobin A1c Lab Routine Lymphoma, unspecified body region, unspecified lymphoma type (CMS/HCC) Expected: 08/07/2024 (Approximate), Expires: 08/07/2025[facility] Work Phone: comment on above:Expected: 08/07/2024 (Approximate), Expires: 08/07/2025Start: 08-07-2024 End: 20-55-2083Tazoqdbvownsox electrophoresisImmunofixation electrophoresis Lab Routine Lymphoma, unspecified body region, unspecified lymphoma type (CMS/HCC) Expected: 08/07/2024 (Approximate), Expires: 08/07/2025[facility]S HealthcareComment on above:Expected: 08/07/2024 (Approximate), Expires: 08/07/2025Start: 08-07-2024 End: 36-47-0724Pgabmq Ab [Presence] in Serum by RPRRPR Lab Routine Lymphoma, unspecified body region, unspecified lymphoma type (CMS/HCC) Expected: 09/2024 (Approximate), Expires: 08/07/2025NOMS HealthcareComment on above: Expected: 08/07/2024 (Approximate), Expires: 08/07/2025Start: 08-07-2024 End: 48-81-5257Olygsysxfwh [Units/volume] in Serum or PlasmaTSH Lab Routine Lymphoma, unspecified body region, unspecified lymphoma type (CMS/HCC) Expected: 08/07/2024 (Approximate), Expires: 08/07/2025NOMS HealthcareComment on above: Expected: 08/07/2024 (Approximate), Expires: 08/07/2025Start: 08-07-2024 End: 82-41-8965Qolzdcr X9Nkanygm B6 Lab Routine Lymphoma, unspecified body region, unspecified lymphoma type (CMS/HCC) Expected: 08/07/2024 (Approximate), Expires: 08/07/2025N[facility]S HealthcareComment on above:Expected: 08/07/2024 (Approximate), Expires: 08/07/2025Start: 08-07-2024 End: 23-57-5033Madlkig encounter procedureNOMS STAN STATE ROUTEComment on above:ArrivedStart: 19-45-5160Hembbor Directive DiscussionAdvance Directive DiscussionKathryn ClinicStart: 07-10-2024 End: 59-95-1316Pgwuskt encounter procedureNOMS STAN STATE ROUTEComment on above:ArrivedStart: 07-02-2024 End: 52-02-9494Lrwhuph encounter procedureNOMS AUDComment on above:Arrived Start: 06-27-2024 End: 36-86-4529Movnech encounter ikisedidu52/22/2024 9:00 AM EST Office Visit [facility] AUD [address] [place] [address] Lillian Nagel, AUD [address] [place] [address] ArrivedNOPIKE [facility] AUDComment on above:ArrivedStart: 06-17-2024 End: 84-72-1576MPM 2 ExtremitiesEMG 2 Extremities Neurology Routine Weakness Expected: 06/17/2024, Expires: 06/17/2025[facility] Work Phone: comment on above:Expected: 06/17/2024, Expires: 06/17/2025Start: 06-16-2024 End: 26-77-1503Jirkwzq encounter icquwfkuy61/11/2024 3:00 PM EST Office Visit [facility] AUD [address] [place] [address] FJNI SH AUDStart: 06-05-2024 End: 28-43-4311Huyacfl encounter dvpseubhw90/31/2024 11:00 AM EDT Office Visit [facility] [address] [facility] [address] [place] [phone] Lucas Arenas, [address] [place], [place] [id number] NOMS NEUROLOGYStart: 87-33-2063Qrvjj-19 Vaccine ( season)Covid-19 Vaccine ( season)[facility]: 61-11-8645Jmbwgygcy vaccinationProKing'S Daughters [facility] SystemStart: 46-42-6791Tchi Risk ScreeningFall Risk ScreeningProKettering Health Hamiltontart: 07-19-2018 Pneumococcal Vaccine: 50+ (2 of 2 - PCV)Pneumococcal Vaccine: 50+ (2 of 2 - PCV) [facility]: 19-74-7070ZXM Vaccine (1 - Risk 60-74 years 1-dose series)RSV Vaccine (1 - Risk 60-74 years 1-dose series)[facility]: 05-22-4018Zgklymbv specific antigen measurementProstate Cancer Screening DiscussionMiddletown Hospitaltart: 40-68-6927Nnsacvqh ScreeningDiabetes Screening [facility]: 52-68-7854Hcdtbmdgbwxdzo of varicella zoster vaccine Zoster (Shingles) Vaccine (1 of 2)[facility]: 2006 Shingrix Vaccine (1 of 2)Shingrix Vaccine (1 of 2)[facility]: 75-41-7249Htyavjje specific antigen measurementProstate Cancer Screening DiscussionMiddletown Hospitaltart: 27-08-1679Qlnfecnin for malignant neoplasm of colonMiddletown Hospitaltart: 29-80-2616Tdxum panelLipid ScreeningUniversity Hospitals St. John Medical Center Start: 07-60-6875Qbmrxcyxqvtpeo of varicella zoster vaccineZoster (Shingles) Vaccine (1 of 2)[facility]art: 96-39-2289VZoJ,Tdap and Td Vaccines (1 - Tdap)DTaP,Tdap and Td Vaccines (1 - Tdap)[facility] Start: 68-51-5545Wxsgjjbh Vaccine (1 of 2)Shingrix Vaccine (1 of 2)[facility]: 18-04-5968Irddw microalbumin profileDTaP,Tdap,Td Vaccine (1 - Tdap) [facility]: 71-62-3325Tskppnu ScreeningAnxiety ScreeningMiddletown Hospitaltart: 77-53-5884Madeaaajjo ScreeningDepression ScreeningUniversity Hospitals St. [facility] Medical Center Start: 20-32-3992Tcotgkdko C screeningHepatitis C ScreeningUniversity Hospitals St. John Medical Center Start: 42-70-2641Gimngicaqf ScreeningDepression ScreeningAultman Alliance Community Hospital Start: 62-83-4806Nnikb-19 Vaccine (#1)Covid-19 Vaccine (#1)[facility] Auditory function testsAuditory function tests Audiology Routine 05/26/2024 1:35 PM [facility] Work Phone: Payers DatePayer CategoryPayerPolicy [id number] MEDICARE [id number] 2024Medicare (Managed Care) [id number] Health [id number] Cross Blue [id number] [id number] 1960Self-[id number] [id number] 2.0.1.879350.3.57[id number] 2.0.1.821809.3.57[id number] 2.0.1.422530.3.57[id number] 2.840.1.373747.3.57[id number] 2.0.1.095347.3.57[id number] 2.16840.1.170679.3.57[id number] 2.16840.1.287908.3.57[id number] 2.16840.1.470655.3.579.[id number] 2.16840.1.703444.3.57[id number] 2.16.840.1.454270.3.57[id number] 2.16.840.1.501302.3.579.2.29023-55-2219Cfqfmdb43824938 2.16.840.1.310894.3.579.2.44495-03-1116Wskbint6999729 2.16840.1.283630.3.579.2.994862-36-8822Eataqcg5296267 2.840.1.315614.3.579.2.158152-94-9897Yevamav5948126 2.840.1.853031.3.579.2.902711-19-6769Lwoufld8147182 2.0.1.190694.3.579.2.069721-53-6922Eiwqzki6341389 2.840.1.143094.3.579.2.389400-02-5636Ifbciwg7325133 2.840.1.301221.3.579.2.458799-52-0503Kvxgnli1791930 2.0.1.305327.3.579.2.859482-16-7415Zcfetdr3207448 2.0.1.528935.3.579.2.[id number] 2.0.1.744020.3.579.2.611872-38-3228Dpdikat0501246 2.16840.1.243795.3.579.2.1259[facility] [id number]nh / [id number] 55cazb6o-0x3e-5td6-g3ul-[id number] 2.16.840.1.067208.3.579.2.923Ccjtfbg40378482 2.16.840.1.730052.3.579.2.531 [id number] 2.16.840.1.965436.3.579.2.531 Social History DateTypeDetailFacilityStart: 01-21-2024 End: 14-19-8536Gegugye smoking statusNever smoked tobacco (finding)[facility] smoking statusNever [facility]: 07-29-2024 End: 28-94-2834[facility]art: 31-34-5726Kjt [facility] smoking status NHISTobacco smoking consumption unknownNOND HealthcareStart: 19-32-1045Ccm assigned at birthNot on fileST. [facility]OR[facility] HealthcareStart: 07-29-2024 End: 89-96-3160Iqgogeq use and exposureSmokeless tobacco non-userProInfirmary West Health SystemStart: 04-32-3885Oxsztcoak beverage intakeLifetime non-drinker (finding)[facility] SystemStart: 07-29-2024 End: 23-53-9700Gfmkedv of Social functionProWadsworth-Rittman Hospitalca Health SystemStart: 37-49-2697PiwGpbn (finding)[facility] SystemStart: 33-69-1100Lbdxdl identityIdentifies as male gender (finding)[facility] SystemStart: 89-29-2857Rjkzol orientationHeterosexual (finding)[facility] SystemStart: 09-25-2024 End: 32-75-1492Tsbenestv beverage intakeEx-drinker (finding)[facility] NEGATED: Highlighted rowStart: NINFHistory of tobacco usePassive smokerUniversity Hospitals St. John Medical Center Functional Status LdvxOzxkllznxsAuxflhBrghhzjw20-69-3614Hbsfpzwhwr StatusN/AFSheltering [facility] General Surgery Eklmhml22-36-3547Taqjpvybfz StatusN/AFC[facility] Surgery Zzyzwcwq76-03-0191Qgdvnveqar StatusN/AExecutive Urology of [facility] Clinical Notes 01-21-2024 to 04-03-2025 Note Date & UrceNwdyFvqeyiae23-14-9386 NoteReturn phone call from patients . Advised of Dr. Schneider recommendations. verbalized understanding and agreed with plan of care [facility]08-18-2025 NoteUT Cardiology - [facility] Subjective Nabeel Bonilla is a 69 y.o. year old male [...] placement and then was admitted to the [facility] on 06/13/2024 with atrial fibrillation and [...] tablet, TAKE 1 TABLET (more content not included)...[facility]05-15-2025 NoteHNO ID: [id number] Author: RG WINSTON MD Service: ? Author Type: Physician Type: Progress Notes Filed: 01/13/2025 03:50 Note Text: Radiation Oncology - Follow Up Note PATIENT NAME: Nabeel Bonilla PATIENT DIAGNOSIS/PATIENT IDENTIFICATION: Mr. 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 He completed a total of 4 cycles of ABVD under the care of Dr. Donnelly at [facility] and repeat pet imaging after the third cycle on 09/08/2024 noted excellent metabolic response (Deauville 3). He completed a course of consolidative radiation therapy to the right axilla and neck on 11/17/2024 (3600 cGy delivered in 20 fractions). Mr. Bonilla returns to clinic today for routine follow-up [...] RADIOLOGIC DATA: PET/CT (12/15/2024) Signed by: Rg Wniston MD This document has been created with the use of voice recognition technology. It may contain inaccuracies, misspellings, inaccurate syntax or inappropriate word context that are a result of the inadequacies/shortcomings of said technology/software.[facility]05-15-2025 History of Present illness Narrative* Rg Winston MD - 12/18/2024 11:59 PM EDT Radiation Oncology - Follow Up Note PATIENT NAME: Nabeel Bonilla PATIENT Signed by: Rg Winston MD This document has been created with the use of voice recognition technology. It may contain inaccuracies, misspellings, inaccurate syntax or inappropriate word context that are a result of the inadequacies/shortcomings of said technology/software. documented in this encounterUniversity Hospitals St. John Medical Center05-06-2025 Telephone encounter Note * Telephone Encounter - Ana Paula Chauhan RN - 12/09/2024 4:03 PM EDT I left another message for Nabeel to return my call. Ana Paula Chauhan RN [facility]05-06-2025 Miscellaneous Notes* Telephone Encounter - Ana Paula Chauhan RN - 12/09/2024 4:03 PM EDT I left another message for Nabeel to return my call. Ana Paula Chauhan RN * Telephone Encounter - Ana Paula Chauhan RN - 12/02/2024 1:04 PM EDT I called and left a message for Nabeel to call back for an update post radiation completion. Ana Paula Chauhan RN documented in this encounterUniversity Hospitals St. John [facility] Center04-29-2025 Telephone encounter Note * Telephone Encounter - Ana Paula Chauhan RN - 12/02/2024 1:04 PM EDT I called and left a message for Nabeel to call back for an update post radiation completion. Ana Paula Chauhan RN [facility]04-14-2025 NoteHNO ID: [id number] Author: RG WINSTON MD Service: ? Author Type: Physician Type: Progress Notes Filed: 11/27/2024 04:40 Note Text: [facility] Radiation Oncology Department RADIATION ONCOLOGY - COMPLETION NOTE PATIENT: NABEEL BONILLA: 1955 DATES OF TREATMENT: 10-21-2024 to 11-17-2024 DIAGNOSIS: Mr. 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 He completed a total of 4 cycles of ABVD under the care of Dr. Donnelly at [facility] and repeat pet imaging after the [...] AM Electronically Signed cc: Sonia Donnelly MD (Goff) Ailin Green CNP [facility] [facility], [address] [place] [id number] [facility]04-11-2025 NoteEducation (NUTRSA) NABEEL BONILLA ([id number]) 1955 M Date Time Provider Department 11/14/24 2:15 PM MARGO SCHUMACHER Reason for Visit: Nutrition Telephone [2013] Cmt: No answer Visit Diagnosis:Hodgkin lymphoma, unspecified Hodgkin lymphoma type, unspecified body region (HCC) [C81.90] Order(s):CONSULT TO ONCOLOGY NUTRITION [[id number]] Order #: [id number]: 1 During your visit today, we recorded [...] mg. Encounter Status:Closed by MARGO SCHUMACHER on 11/17/24[facility]04-11-2025 NoteHNO ID: [id number] Author: MARGO SCHUMACHER RD Service: ? Author Type: Registered Dietitian Type: Progress Notes Filed: 11/17/2024 08:01 Note Text: Oncology Nutrition Therapy Reassessment I have communicated my name and active licensure. The patient's identity and physical location were verified at the time of this visit. Either the patient or their legal sales representative jewelry has been informed of the risks and benefits of -- and alternatives to -- treatment through a remote evaluation and consents to proceed with the evaluation remotely. 1415- called pt for scheduled phone appointment. No answer, left message with return contact information. Signed by: Margo Schumacher RD, ZENY, LDTrinity Health [facility]04-11-2025 History of Present illness Narrative* Margo Schumacher RD - 11/14/2024 7:52 AM EDT Oncology Nutrition Therapy Reassessment I have communicated my name and active licensure. The patient's identity and physical location wereverified at the time of this visit. Either the patient or their legal sales representative jewelry has been informed of the risks and benefits of -- and alternatives to -- treatment through a remote evaluation andconsents to proceed with the evaluation remotely. 1415- called pt for scheduled phone appointment. No answer, left message with return contact information. Signed by: Margo Schumacher RD, ZENY, JUSTINE documented in this encounterUniversity Hospitals St. John Medical Center04-10-2025 NoteHNO ID: [id number] Author: RG WINSTON MD Service: ? Author Type: Physician Type: Progress Notes Filed: 11/24/2024 22:41 Note Text: Radiation Oncology - On Treatment Review (OTR) Note PATIENT NAME: Nabeel Bonilla PATIENT DIAGNOSIS: Mr. 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 He completed a total of 4 cycles of ABVD under the care of Dr. Donnelly at [facility] and repeat pet imaging after the third cycle on 09/08/2024 noted excellent metabolic response (Deauville 3). COURSE: Consolidative AREA TREATED: Right axilla/neck CURRENT DOSE: 67102 cGy in 18 fx PLANNED DOSE: 3600 [...] Continue radiation treatment as planned. Rg Winston [facility]04-10-2025 History of Present illness Narrative* Rg Winston MD - 11/13/2024 10:39 PM EDT Radiation Oncology - On Treatment Review (OTR) Note PATIENT NAME: Nabeel Bonilla PATIENT DIAGNOSIS: Mr. 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 He completed a total of 4 cycles of ABVD under the care of Dr. Donnelly at [facility] and repeat pet imaging after the third cycle on 09/08/2024 noted excellent metabolic response (Deauville 3). COURSE: Consolidative AREA TREATED: Right axilla/neck CURRENT DOSE: 29920 cGy in 18 fx PLANNED DOSE: 3600 [...] planned. Rg Winston MD documented in this encounterUniversity Hospitals St. John Medical Center04-02-2025 NoteHNO ID: [id number] Author: RG WINSTON MD Service: ? Author Type: Physician Type: Progress Notes Filed: 11/18/2024 04:46 Note Text: Radiation Oncology - On Treatment Review (OTR) Note PATIENT NAME: Nabeel Bonilla PATIENT DIAGNOSIS: Mr. 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 He completed a total of 4 cycles of ABVD under the care of Dr. Donnelly at [facility] and repeat pet imaging after the [...] further investigate if it persists. Rg Winston [facility]04-02-2025 History of Present illness Narrative* Rg Winston MD - 11/05/2024 11:50 PM EDT Radiation Oncology - On Treatment Review (OTR) Note PATIENT NAME: Nabeel Bonilla PATIENT Rg Winston MD documented in this encounterUniversity Hospitals St. John Medical Center03-26-2025 NoteHNO ID: [id number] Author: RG WINSTON MD Service: ? Author Type: Physician Type: Progress Notes Filed: 11/10/2024 22:54 Note Text: Radiation Oncology - On Treatment Review (OTR) Note PATIENT NAME: Nabeel Bonilla PATIENT DIAGNOSIS: Mr. 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 He completed a total of 4 cycles of ABVD under the care of Dr. Donnelly at [facility] and repeat pet imaging after the [...] Continue radiation treatment as planned. Rg Winston [facility]03-26-2025 History of Present illness Narrative* Rg Winston MD - 10/29/2024 10:52 PM EDT Radiation Oncology - On Treatment Review (OTR) Note PATIENT NAME: Nabeel Bonilla PATIENT DIAGNOSIS: Mr. 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 He completed a total of 4 cycles of ABVD under the care of Dr. Donnelly at [facility] and repeat pet imaging after the [...] planned. Rg Winston MD documented in this encounterUniversity Hospitals St. John [facility] Center03-18-2025 NoteHNO ID: [id number] Author: RG WINSTON MD Service: ? Author Type: Physician Type: Progress Notes Filed: 11/03/2024 23:33 Note Text: Radiation Oncology - On Treatment Review (OTR) Note PATIENT NAME: Nabeel Bonilla PATIENT DIAGNOSIS: Mr. 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 He completed a total of 4 cycles of ABVD under the care of Dr. Donnelly at [facility] and repeat pet imaging after the [...] through the course of treatment. Rg Winston [facility]03-18-2025 History of Present illness Narrative* Rg Winston MD - 10/21/2024 11:30 PM EDT Radiation Oncology - On Treatment Review (OTR) Note PATIENT NAME: Nabeel Bonilla PATIENT DIAGNOSIS: Mr. 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 He completed a total of 4 cycles of ABVD under the care of Dr. Donnelly at [facility] and repeat pet imaging after the third cycle on 09/08/2024 noted excellent metabolic response (Deauville 3). COURSE: Consolidative AREA TREATED: Right axilla/neck CURRENT DOSE: 180 cGy in 1 fx PLANNED DOSE: 3600 cGy in 20 fx SUBJECTIVE: Tolerated first fraction of XRT well and reports no significant changes for the time ofsimulation. Today he denies any pain or discomfort [...] treatment. Rg Winston MD documented in this encounterUniversity Hospitals St. John Medical Center03-04-2025 History of Present illness Narrative* Rg Winston MD - 10/07/2024 12:00 AM EST NABEEL BONILLA [id number] 10/07/2024 [facility] Radiation Oncology Department SIMULATION NOTE DATE OF SIMULATION: 10/07/2024 THERAPIST: Marjan Werner MACHINE: Edicy DIAGNOSIS: Other classical Hodgkin lymphoma, lymph nodes [...] / CDT 56:24 PM documented in this encounterUniversity Hospitals St. John Medical Center03-04-2025 History of Present illness Narrative* Rg Winston MD - 10/07/2024 12:00 AM EST NABEEL BONILLA [id number] 10/07/2024 [facility] Department of Radiation Oncology Treatment Planning Note For reasons stated in the consult note, Nabeel Bonilla is a candidate for radiation therapy. Based on review and interpretation of the relevant diagnostic studies together with the exam findings, Nabeel Bonilla was simulated on 10/07/2024 at which time the target volume and/or requisite barr were d elineated, as indicated in the simulation note, to [...] 15MV and 2 barr. Custom MLCs wedges asymjaws were the treatment devices used to shape/modify the beams. Limiting dose to normal tissue was confirmed upon review of the calculated dose volume histogram. A completed summary of this plan dated 10/20/2024 incorporated herein by reference includes dose, beam arrangements, energy, blocking, isodose distribution, and/or ports and DVH. Electronically Signed Rg Winston M.D. 2:58 PM documented in this encounterUniversity Hospitals St. John Medical Center03-04-2025 NoteHNO ID: [id number] Author: RG WINSTON MD Service: ? Author Type: Physician Type: Progress Notes Filed: 10/08/2024 18:24 Note Text: NABEEL BONILLA W [id number] 10/07/2024 [facility] Radiation Oncology Department SIMULATION NOTE DATE OF SIMULATION: 10/07/2024 THERAPIST: Marjan Werner MACHINE: Edicy DIAGNOSIS: Other classical Hodgkin lymphoma, lymph nodes [...] Signed Rg Winston M.D. / CDT 56:24 [facility]03-04-2025 NoteHNO ID: [id number] Author: RG WINSTON MD Service: ? Author Type: Physician Type: Progress Notes Filed: 10/20/2024 12:58 Note Text: NABEEL BONILLA Hector [id number] 10/07/2024 [facility] Department of Radiation Oncology Treatment Planning Note For reasons stated in the consult note, Nabeel Bonilla is a candidate for radiation therapy. Based on review and interpretation of the relevant diagnostic studies together with the exam findings, Nabeel Bonilla was simulated on 10/07/2024 at which time [...] DVH. Electronically Signed Rg Winston M.D. 2:58 [facility]02-26-2025 Telephone encounter Note* Telephone Encounter - Mady Durbin - 10/01/2024 8:54 AM EST Called and spoke to Nabeel's . She confirmed his appointment times for 10/07/24 with an arrival of 1:00 PM and no special instructions. A nurse visit was added to the schedule for 1:15PM Mady Woodson PSS [facility]02-26-2025 Miscellaneous Notes* Telephone Encounter - Mady Durbin - 10/01/2024 8:54 AM EST Called and spoke to Nabeel's . She confirmed his appointment times for 10/07/24 with an arrival of 1:00 PM and no special instructions. A nurse visit was added to the schedule for 1:15PM Mady Woodson PSS * Telephone Encounter - Kathleen Werner RT(R) - 10/01/2024 7:27 AM EST Sim scheduled on 10/07/24 at 1:30pm PSS - Please schedule nurse visit at 1:15 & notify pt of 1:00pm arrival time, no special instructions. Thanks! RT Jaylen(R)(T) * Telephone Encounter - Daphnie Ramirez - 09/26/2024 10:41 AM EST Rad ed and Nutri scheduled * Telephone Encounter - Coty Chan, BRANDAN - 09/25/2024 10:34 AM EST Rad Ed today Dietary Eval Schedule Simulation treating R Axilla and Neck with IV Contrast- plan for possible 5 point mask- 20Fx Sim on 10/06 Consent is Signed *Pt does have onbody glucose monitor-- he and were instructed on need to remove and of need todo finger stick blood sugars* Plan start 10/20 Coty Chan, RN documented in this encounterUniversity Hospitals St. [facility]02-26-2025 Telephone encounter Note * Telephone Encounter - Kathleen Werner RT(R) - 10/01/2024 7:27 AM EST Sim scheduled on 10/07/24 at 1:30pm PSS - Please schedule nurse visit at 1:15 & notify pt of 1:00pm arrival time, no special instructions. Thanks! RT Jaylen(R)(T) [facility] Work Phone: 1(619) 877-312402-21-2025 Instructions* Patient Instructions* Margo Schumacher RD - 09/26/2024 1:51 PM [...] avocado, peanut butter, etc. documented in this encounterUniversity Hospitals St. John Medical Center02-21-2025 NoteEducation (NUTRSA) NABEEL BONILLA ([id number]) 1955 M Date Time Provider Department 09/26/24 [...] mg. Encounter Status:Closed by MARGO SCHUMACHER on 09/26/24[facility]02-21-2025 Telephone encounter Note* Telephone Encounter - Daphnie Ramirez - 09/26/2024 10:41 AM EST Rad ed and Nutri scheduled [facility]02-21-2025 NoteHNO ID: [id number] Author: MARGO SCHUMACHER RD Service: ? Author Type: Registered Dietitian Type: Progress Notes Filed: 09/26/2024 13:51 Note Text: Oncology Nutrition Therapy Initial Assessment I have communicated my name and active licensure. The patient's identity and physical location were verified at the time of this visit. Either the patient or their legal sales representative jewelry has been informed of the risks and [...] dacarbazine) Medical Oncologist: Dr. Donnelly at the [facility] Radiation Oncologist: Dr. Winston PMHx: insulin dependent diabetes per Pt is [place] but is able to verify his name [...] Dosing Weight: 85.4 kg Estimated kilocalorie needs: 2119-5893 kilocalories determined by 25-30 kcal/kg Estimated protein needs: 85-111 grams determined by 1.0-1.3 g/kg Dosing weight Estimated fluid needs: ~1464-6663 milliliters based on 1 mL per kcal [...] mouth. ondansetron orally disin (more content not included)...[facility]02-21-2025 History of Present illness Narrative* Margo Schumacher, BRITTANY - 09/26/2024 7:33 AM EST Oncology Nutrition Therapy Initial Assessment I have communicated my name and active licensure. The patient's identity and physical location wereverified at the time of this visit. Either the patient or their legal sales representative jewelry has been informed of the risks and benefits of -- and alternatives to -- treatment through a remote evaluation andconsents to proceed with the evaluation remotely. RECOMMENDED [...] dacarbazine) Medical Oncologist: Dr. Donnelly at the [facility] Radiation Oncologist: Dr. Winston PMHx: insulin dependent diabetes per Pt is [place] but is able to verify his name & . Pt gives me permission to only speak to his during this call. No swallowing difficulty reported, focusing on soft foods. Pt's states pt has been pretty sickfrom chemotherapy. Pt often c/o stomach aches, diarrhea [...] Dosing Weight: 85.4 kg Estimated kilocalorie needs: 4416-5113 kilocalories determined by 25-30 kcal/kg Estimated protein needs: 85-111 grams determined by 1.0-1.3 g/kg Dosing weight Estimated fluid needs: ~0895-5482 milliliters based on 1 mL per kcal (unless otherwise indicated) Nutrition Focused Physical Exam: Unable to perform exam due to patient unable to participate due toencounter type, will re-attempt during reassessment. Potential Signs [...] 15 minutes Signed by: Margo Schumacher RD, NEWS VIDEO EDITOR, LD documented in this encounterUniversity Hospitals St. John [facility] Center02-20-2025 NoteHNO ID: [id number] Author: RG WINSTON MD Service: ? Author Type: Physician Type: Progress Notes Filed: 10/21/2024 08:06 Note Text: Radiation Oncology - New Patient/Consult Note PATIENT NAME: Nabeel Bonilla PATIENT REQUESTING PHYSICIAN: Dr. 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 He was accompanied today by his family. Final recommendations will be communicated back to the requesting physician by way of the shared medical record, or letter to requesting physician via US mail. HISTORY OF PRESENT ILLNESS: Mr. Bonilla is a 69-year old gentleman [place], [place] with a history of hearing loss [...] atypical lymphoproliferative disorder after second review through [facility]. A second core biopsy was [...] of Onset Alcohol/Drug Father SOCIAL HISTORY: Mr. Bonilla is , has 2 children, and lives in the [place], [place] area. 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 He denies tobacco or alcohol use. [...] DATA: PET/CT (05/12/2024) PET/CT (09/08/2024) IMPRESSION: Mr. 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 He completed a total of 4 cycles of ABVD under the care of Dr. Donnelly at [facility] and repeat pet imaging after the third cycle on 09/08/2024 noted excellent metabolic response (more content not included)...[facility]02-20-2025 History of Present illness Narrative* Rg Winston MD - 09/25/2024 11:58 PM EST Images from the original note were not included. Radiation Oncology - New Patient/Consult Note PATIENT NAME: Nabeel Bonilla PATIENT Signed: Rg Winston MD I spent a total of 60 minutes on the date of the service which included preparing to see the patient, ctpu-kg-yxem patient care, and counseling and educating the patient/family/caregiver. This document has been created with the use of voice recognition technology. It may contain inaccuracies, misspellings, inaccurate syntax or inappropriate word context that are a result of the inadequacies/shortcomings of said technology/software. * Coty Chan RN - 09/25/2024 9:19 AM EST Pacemaker/Defibrillator? No Previous Cancer(s)? No Previous Radiation? No Lupus/Scleroderma? No On body monitoring device? Yes, G7 device for glucose monitoring. Was notified of need to remove prior to simulation/treatment. Was also notified of need to do finger stick blood sugars throughout. and pt aware. Coty Chan RN documented in this encounterUniversity Hospitals St. [facility] Center02-20-2025 History of Present illness Narrative* Coty Chan RN - 09/25/2024 12:13 PM EST Radiation Therapy - Patient Education Note PATIENT NAME: Nabeel Bonilla PATIENT September 25, 2024 [facility] FACILITY/LOCATION: Critical access hospital READINESS TO LEARN Cognitive Ability: Alert and [...] and family verbalized understanding of radiation treatments, sideeffects, OTV, and transportation. Follow-up plan: Recommend - Recommend continued instruction and follow up as directed Supplemental material: Informational handouts on Head and neck packet. Referral (recommendation): Dietitian Was PED reviewed? Yes Patient has an Onbody or Implanted device: Yes, person notified was: Dr Winston/ Radiation therapist. Signed by: Coyt Chan RN documented in this encounterUniversity Hospitals St. John Medical Center02-20-2025 NoteHNO ID: [id number] Author: COTY CHAN RN Service: ? Author Type: Registered Nurse Type: Progress Notes Filed: 09/26/2024 08:31 Note Text: Radiation Therapy - Patient Education Note PATIENT NAME: Nabeel Bonilla PATIENT September 25, 2024 [facility] FACILITY/LOCATION: Critical access hospital READINESS TO LEARN Cognitive Ability: Alert and [...] Winston/ Radiation therapist. Signed by: Coty Chan RNTrinity Health [facility]02-20-2025 Telephone encounter Note* Telephone Encounter - Coty Chan RN - 09/25/2024 10:34 AM EST Rad Ed today Dietary Eval Schedule Simulation treating R Axilla and Neck with IV Contrast- plan for possible 5 point mask- 20Fx Sim on 10/06 Consent is Signed *Pt does have onbody glucose monitor-- he and were instructed on need to remove and of need todo finger stick blood sugars* Plan start 10/20 Coty Chan RN [facility]02-20-2025 NoteHNO ID: [id number] Author: COTY CHAN RN Service: ? Author [...] sugars throughout. and pt aware. [facility] NoteEducation (MC) NABEEL BONILLA ([id number]) 1955 M Date Time Provider Department 09/25/24 [...] mg. Encounter Status:Closed by COTY CHAN on 09/26/24[facility] 09-[facility]24 Telephone encounter Note* Telephone Encounter - Sobia Morrow - 09/23/2024 3:57 PM EST Called to check on PT status re: his last PT was 09/01. Silvana noted w/ Chemo treatment and radiation following, is taking a lot out of Nabeel; she does not feel cont on w/ PT right now he's able. I toldher if PT is needed not to hesitate and contact and pending w/ referring provider continuation could be suitable. [facility] [id number] Miscellaneous Notes* Telephone Encounter - Sobia Morrow - 09/23/2024 3:57 PM EST Called to check on PT status re: his last PT was 09/01. Silvana noted w/ Chemo treatment and radiation following, is taking a lot out of Nabeel; she does not feel cont on w/ PT right now he's able. I toldher if PT is needed not to hesitate and contact and pending w/ referring provider continuation could be suitable. documented in this encounterSaint Luke's [id number] History of Present illness Narrative* Pilar Avina, AUD - 09/19/2024 9:00 AM EST AUDIOLOGIC EVALUATION & HEARING AID EVALUATION Nabeel Bonilla, 69 y.o., was seen at our office [...] worse than when it was tested at [facility] in May 2024. Otoscopic Evaluation: Right Ear: Unremarkable Left Ear: Unremarkable Immittance Measures: Right Ear: DNT Left Ear: Type A Pure Tone Audiometry: Right Ear: DNT, known profound SNHL for 20+ years, well documented Left Ear: Moderate sloping to severe SNHL Reliability: good Speech Audiometry: SRT/TUBE MOLDER FIBERGLASS in good agreement for the left ear WRS: Right Ear: DNT Left Ear: Very poor (16%) - without visual cues Left Ear: Fair (68%) - with visual cues RECOMMENDATIONS & HEARING AID EVALUATION: Mr. Bonilla was informed of the test results today. [...] allow for a better speech to noise ratioto aid in his understanding of speech/TV over a distance. It was determined however, he has a benefit through [employer], and he would be unable to use his benefit at our office. We discussed talking to a [employer] provider about a power BTE that would be covered by his benefit and be similar tothe Phonak Corin. If he wants to order [...] his ongoing cancer treatment. Katarina Chew, DIANE-A Control Clerk Subassembly documented in this encounterAultman Alliance [facility] Hospital02-10-2025 NoteUT Cardiology - [facility] Subjective Nabeel Bonilla is a 69 y.o. year old male [...] placement and then was admitted to the [facility] on 06/13/2024 with atrial fibrillation and [...] Allergen Reactions Jardiance [Empagl (more content not included)...[facility]02-03-2025 Miscellaneous Notes* Telephone Encounter - Regis Ibarra MD - 09/08/2024 9:48 AM EST MRI Brain in May 2024 with no left sided abnormalities noted. Right IAC enhancement, right cochlearand CN 7 enhancement. Please schedule patient for follow up with Dr. Yanes. documented in this encounterBarney Children's Medical CenterViewster02-03-2025 Telephone encounter Note* Telephone Encounter - Regis Ibarra MD - 09/08/2024 9:48 AM EST MRI Brain in May 2024 with no left sided abnormalities noted. Right IAC enhancement, right cochlearand CN 7 enhancement. Please schedule patient for follow up with Dr. Yanes. [facility]02-03-2025 Miscellaneous Notes* Telephone Encounter - Regis Ibarra MD - 09/08/2024 9:24 AM EST Ok Cooper, doesn't look like we have the MRI brain report. Can you look into it? Thank you documented in this encounterAultman Alliance Community Hospital02-03-2025 Telephone encounter Note* Telephone Encounter - Regis Ibarra MD - 09/08/2024 9:24 AM EST Ok Cooper, doesn't look like we have the MRI brain report. Can you look into it? Thank you [facility]01-27-2025 History of Present illness Narrative* Cleve Quinn, PT - 09/01/2024 11:00 AM EST Images from the original note were not included. Physical Therapy Treatment Visit Patient Name: Nabeel Bonilla Today's Date: 09/01/24 Encounter Diagnoses Name Primary? [...] to be instructed in home exercise program. Detention Goals: To be met in 10 weeks [...] grossly in all planes to allow him towalk/stand for long periods of time to help [...] Please sign below. Date: documented in this encounterSaint Luke's [id number] History of Present illness Narrative* Cleve Quinn, PT - 08/20/2024 3:00 PM EST Physical Therapy Evaluation Visit Patient Name: Nabeel Bonilla Today's Date: 08/20/24 Encounter Diagnoses Name Primary? [...] minutes) Strength, Endurance, Flexibility, ROM, HEP, Neural Mobilization,Power, and Core Stability; 10 minutes Nustep Therapeutic [...] on 08/20/24 for LE weakness and balance. Pt.Will benefit from skilled PT services. PT treatment to focus on improving LE strength, balance, andendurance. Outcome Measure: 3480 Short Term Goal: To be met in 2 weeks Goal 1: Pt to be instructed in home exercise program. Detention Goals: To be met in 10 weeks [...] grossly in all planes to allow him towalk/stand for long periods of time to help [...] Please sign below. Date: documented in this encounterSaint Luke's [id number] Miscellaneous Notes* Telephone Encounter - Regis Ibarra MD - 08/15/2024 10:28 AM EST Thank you Allison. I do not see a report for the MRI Brain. Do we have that radiology report? * Telephone Encounter - Allison Fortune CNA - 08/15/2024 10:28 AM EST I just looked and it looks like they never faxed that one or it got lost. I can call to have them resend it or it looks like it is in under the imaging. Let me know what you would like me to do. documented in this encounterAultman Alliance Community Hospital01-10-2025 Telephone encounter Note* Telephone Encounter - Regis Ibarra MD - 08/15/2024 10:28 AM EST Thank you Allison. I do not see a report for the MRI Brain. Do we have that radiology report? [facility]01-10-2025 Telephone encounter Note* Telephone Encounter - Allison Fortune CNA - 08/15/2024 10:28 AM EST I just looked and it looks like they never faxed that one or it got lost. I can call to have them resend it or it looks like it is in under the imaging. Let me know what you would like me to do. [facility]01-08-2025 Miscellaneous Notes* Telephone Encounter - Kathleen Arciniega - 08/13/2024 3:46 PM EST iAlin Green's [place] - [place] called [place]13, patient saw Dr. Ibarra on 07/29/24. [place] needs office notes faxed to [phone]. * Telephone Encounter - Allison Fortune CNA - 08/13/2024 3:46 PM EST Faxed over office not to number provided. documented in this encounterAultman Alliance Community Hospital01-08-2025 Telephone encounter Note* Telephone Encounter - Kathleen Arciniega - 08/13/2024 3:46 PM EST Ailin Green's Office - [place] called 08/13, patient saw Dr. Ibarra on 07/29/24. [facility] office notes faxed to [phone]. [facility]01-08-2025 Telephone encounter Note* Telephone Encounter - Allison Fortune CNA - 08/13/2024 3:46 PM EST Faxed over office not to number provided. [facility]01-07-2025 Miscellaneous Notes* Telephone Encounter - Regis Ibarra MD - 08/12/2024 2:23 PM EST Just wanted to check if anyone had gotten his head and neck imaging from the outside hospital back? documented in this encounterAultman Alliance Community Hospital01-07-2025 Telephone encounter Note* Telephone Encounter - Regis Ibarra MD - 08/12/2024 2:23 PM EST Just wanted to check if anyone had gotten his head and neck imaging from the outside hospital back? [facility]01-02-2025 History of Present illness Narrative* Lucas Arenas, - 08/07/2024 10:00 AM EST Images from the original note were not included. Chief complaint: Unsteadiness and generalized weakness and falls Subjective Nabeel Bonilla, 69 y.o., male Patient presents today for [...] , wrist extensors , wrist flexor , lead sprinkler strength 4-/5. LUE Strength deltoid , biceps , triceps , wrist extensors , wrist flexor , lead sprinkler strength 4-/5. RLE Strength illopsoas, quadriceps, tibialis [...] reflex 1+ . Flowers's sign negative. Coordination: Ejdzgr-lx-vgpe testing and rapid alternating movements are normal [...] mastoid effusion without evidence of mastoidectomy. Chronic microvascularischemic diseases are redemonstrated. CT of the brain without contrast on 04/21/2024: No acute process Assessment/Plan Diagnoses and all orders for this visit: Malnutrition, unspecified type (CMS/HCC)/ Failure to thrive Weakness/Polyneuropathy History of benign schwannoma Lymphoma, unspecified body region, unspecified lymphoma type (CMS/HCC) It is my impression that the patient has generalized weakness and gait instability. He was recentlydiagnosed with lymphoma which seems to be localized [...] 20 years ago. It also demonstrated postoperative changesof the right facial nerve. Chronic microvascular changes were determined. Otherwise, no acute process. The patient is a diabetic. I am unclear as to last hemoglobin A1c. The patient has had chemotherapybut only 1 recent treatment and the symptoms [...] plan, and return instructions documented in this [facility]12-24-2024 History of Present illness Narrative* Regis Ibarra MD - 07/29/2024 9:15 AM EST Images from the original note were not included. [facility] [address] [place] [id number] SUBJECTIVE: Patient ID (1955): Nabeel Bonilla is a 68 y.o. male presents today for Chief Complaint Patient presents with Cerumen Impaction Bilateral Hearing Loss Laterality HPI: Nabeel is presenting today with bilateral profound hearing loss. He had an acoustic neuroma resected at the [facility] about 20 years ago on the right side, and since then he has not had any hearing there. He used to be able to hear well out of his left ear up until a few months ago where he suddenly lost hearing. It was around the same time he got diagnosed with lymphoma so he did nothave any kind of treatment with steroids, per his family member with him. He has tried using hearing aids but they do not seem to work too well. He has gotten an MRI head and neck at another facility, per his family member. No images or reportsavailable here. He is currently undergoing treatment for his lymphoma, no information available in our system. Family member states that the lymphoma involved his armpit in a few spots in his lungs. HISTORY: Past Medical History: Diagnosis Date Cancer (CMS-HCC) Past Surgical History: Procedure Laterality Date TUNNEL [...] 1 tablet (4 mg total) on tongue asneeded. 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 presenting for left- sided sensorineural hearing loss, ongoing for several months, concurrent with a diagnosis of Hodgkin's lymphoma, currently undergoing treatment outsideof [facility], no records available. Recommend imaging, family [...] this chart were generated using voice recognition M*Modal dictation software. Although every effort was made to ensure the accuracy of this automated sodium methylate operator, some errors in sodium methylate operator may have occurred. documented in this encounterBarney Children's Medical CenterTutorialTab Aspirus Ontonagon [id number] History of Present illness Narrative* Gilbert aGffney, ARRT - 07/10/2024 9:30 AM EST Images from the original note were not included. Reason for Appointment: EMG Patient: Nabeel Bonilla : 1955 EMG Computer: [employer] Referring Physician: Dr. Lucas Arenas EMG: BLE house worker general: Gilbert Gaffney RT(R) Office Location: [place] Reason for EMG: c/o numbness/tingling in bilateral feet. Hx of surgery to low back. Pt currently undergoing chemo. Hx of DM. Taking Eliquis. Comments: Procedure was explained to the patient & who expressed understanding. Patient appeared to have tolerated the test well despite some discomfort due to the nature of the test. documented in this [facility]11-27-2024 History of Present illness Narrative* RIVAS Cutler - 07/02/2024 3:45 PM EST HAP: Pt is dissatisfied with the BiCROS hearing aids. He felt they were not any better than before.He was unable to hear the TV or conversation. He was not specific about the performance, only couldsay they were not helping him. I am unsure of any further adjustments that can be done to improve performance. Patient was offered the opportunity to try a different piercing specialist to see if he would perceive success. Patient would prefer to return the instruments. A return was processed in [employer] portal. Informed patient he will be refunded by [employer]. Gave his the [employer] number inthe event they needed to discuss the refund process. Patient to let us know if he would like to tryBiCROS devices again in the future. documented in this [facility]11-22-2024 History of Present illness Narrative* RIVAS Cutler - 06/27/2024 9:00 AM EST HAP: Pt is not pleased with the [...] to try adjustments when appropriate. He is scheduledto follow up in a couple weeks and will let us know how to proceed. Pt may want to return if he is dissatisfied with aids. Our next follow up is still within the trial period. documented in this encounterSaint Luke's [id number] NoteUT Cardiology - [facility] Subjective Nabeel Bonilla is a 68 y.o. year old [...] the morning., Disp: , (more content not included)...[facility]11-12-2024 History of Present illness Narrative* Lucas Arenas, DO - 06/17/2024 12:15 PM EST Images from the original note were not included. Chief complaint: Unsteadiness and generalized weakness and falls Subjective Nabeel Young Kimbellegia, 68 y.o., male Nabeel presents today for a neurological consultation at the request of Ailin Green CNP for unsteady gait, generlized weakness, falls. Pt was seen at [facility] labs, U/A, PET scan, ECG and CT/MRI done. 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 States that it wasremoved and since then his balance has been [...] , wrist extensors , wrist flexor , lead sprinkler strength 4-/5. LUE Strength deltoid , biceps , triceps , wrist extensors , wrist flexor , lead sprinkler strength 4-/5. RLE Strength illopsoas, quadriceps, tibialis [...] reflex 2+ . Flowers's sign negative. Coordination: Afomun-eh-yidh testing and rapid alternating movements are normal [...] mastoid effusion without evidence of mastoidectomy. Chronic microvascularischemic diseases are redemonstrated. CT of the brain without contrast on 04/21/2024: No acute process Assessment/Plan Diagnoses and all orders for this visit: Malnutrition, unspecified type (CMS/HCC)/ Failure to thrive Weakness History of benign schwannoma Lymphoma, unspecified body region, unspecified lymphoma type (CMS/HCC) It is my impression that the patient has generalized weakness and gait instability. He was recentlydiagnosed with lymphoma which seems to be localized [...] 20 years ago. It also demonstrated postoperative changesof the right facial nerve. Chronic microvascular changes were determined. Otherwise, no acute process. The patient is a diabetic. I am unclear as to last hemoglobin A1c. The patient has had chemotherapybut only 1 recent treatment and the symptoms [...] plan, and return instructions documented in this [facility]11-11-2024 History of Present illness Narrative* Kathleen Alan MA - 06/16/2024 3:00 PM EST Patient was in today to be fit with a Signia Pure C& G T 3IX for the left ear and a CROS Pure C& G for the right ear. Patient has some experience with hearing aids but never with much success. Patient was not feeling well at the appointment today and wanted it to be as short as possible. Patient's accompanied him to the appointment and felt she would be able to insert and remove theaids. Patient was able to answer questions after inserting the hearing aids. The right CROS was coupled to 2S human capital manager with a 10 mm open dome. The left hearing aid was coupled to a Signia custom canal lock earmold. Patient does not use a smart phone. Patient did not want to schedule a follow up dueto his health and many appointments. Patient's states she will call for follow up. Cosigned by FRANKIE Spears at 06/17/2024 11:28 AM EST documented in this [facility]10-29-2024 NoteGeneral Surgery Office/Clinic Note Chief Complaint consultation for port placement [...] nodes of axilla and upper limb) plan elawgb-c-krbw insertion for chemotherapy; informed consent obtained. Ancef [...] Smokeless Tobacco Use:. House (more content not included)...[facility] CampusComment on above: Result Comment: Electronically Signed By: AIRAM ELLIS, Jassi Rodney\Date and Time Signed: 06/03/24 10:41 [id number] History of Present illness Narrative* FRANKIE Spears - 05/26/2024 1:00 PM EDT History: Pt has history of no hearing in the right ear secondary to an acoustic neuroma. About 5 months ago,pt lost his hearing in the left ear [...] is eligible for hearing aids through his [facility] [employer]it. Recommend a custom mold for the left ear. Ear impression taken of left ear without incident. Pt ordered mid level technology. Order completed in [employer] portal and pt scheduled for HAF 06-16-24 in [place]. documented in this encounterSaint Luke's [id number] Hospital Discharge instructions Follow Up Care 02/15/2024 09:24:50 With:DONN ELLIS, Moody Aranda, URL Address: [facility] [address], [place] [address]- When: Unknown [facility] NoteChief Complaint Referral *LUTs HPI Staff Evaluation requested [...] male new pt referred by Ailin Green [facility] due to LUTS. 1. BPH with [...] ago. Accompanied by loss of energy in theevening around 3-4 pm. Likely attributed to DM. Will prescribe Flomax only qd instead of bid due tothis. -Start Flomax 0.4 mg qPM. SEs discussed. Rx sent to [facility]. -Will schedule cysto. The risks and benefits for cystoscopy have been discussed. The risks include bleeding, infection, and irritation of the bladder and urinary channel, among others. The patient, after being informed of procedural details and after questions have been answered, wishes to proceed.Full informed consent has been obtained. Will order Local anesthesia. Prophylactic abx sent to [facility]. 2. OAB (overactive bladder) (N32.81: Overactive bladder) VAHE 08/31/23 - BL Renal Cortical Cysts. Minimal urinary bladder wall thickening. PVR 6 ml. Severe frequency and urgency. q1hr. Occasional UUI episodes. Does not wear protection. Did not haveUUI episodes/frequency/urgency prior to starting Jardiance. Nocturia every hour, severe urgency. Feels he empties completely. Started Jardiance 10 mg 08/2022, no voiding issues prior to this. When increased to 25 mg, urinary sx worsened. Educated pt that meds like Jardiance can cause frequent urination by spilling sugar into urine. However, this does not cause weak stream, the BPH does. Discussedthat there are bladder meds that can help however, Jardiance seems to be the cause and adding a medwould just be fighting the Jardiance. Will try to have PCP adjust DM meds prior to starting bladdermed to see if sx improve off jardiance. Reviewed VAHE with pt. 3. Glucosuria (R81: Glycosuria) UA shows >=1000 mg/dl glucose. Last A1C 08/30/23 - 8.4. Pt is diabetic. -F/u with PCP to see if Jardiance can be switched. 4. Screening PSA (prostate specific antigen) (Z12.5: Encounter for screening for malignant neoplasmof prostat (more content not included)...[facility] CampusComment on above:Result Comment: Electronically Signed By: Moody POP MD\.br\Date and Time Signed: 01/21/24 12:46 EDT\.br\Electronically Co- Signed By: Sowmya Flowers\.br\Date and Time Co-Signed: 01/21/24 12:42 EDT 01-21-2024 Hospital Discharge instructions Patient Education 01/21/2024 08:23:24 Benign Prostatic Hyperplasia Benign Prostatic Hyperplasia Benign prostatic hyperplasia (BPH) is an enlarged prostate gland that is caused by the normal agingprocess. The prostate may get bigger as a man gets older. The condition is not caused by cancer. The prostate is a walnut-sized gland that is involved in the production of semen. It is located in front of the rectum and below the bladder. The bladder stores urine. The urethra carries stored urine ou t of the body. An enlarged prostate can press on the urethra. This can make it harder to pass urine. The buildup of urine in the bladder can cause infection. Back pressure and infection may progress to bladder damage and kidney (renal) failure. What are the causes? This condition is part of the normal aging process. However, not all men develop problems from thiscondition. If the prostate enlarges away from the [...] urethra. Follow these instructions at home: Take yxbz-hhc-yahhkfe and prescription medicines only as told by [...] provider. Document Revised: 02/08/2022 Document Reviewed: 02/08/2022 [employer] Patient Education 2022 [employer]. Follow Up Care 09/13/2023 09:26:56 With:DONN ELLIS, Moody Aranda, URL Address: [facility] [address], [place] [address]- When: Unknown [facility] evaluation + Plan note No data available for this section [facility] evaluation + Plan note Future Appointments Appointment Date:06/09/2024 10:45:00 AM Scheduled Provider:Moody POP MD Location:[facility] Appointment Type:URO Office Visit [facility] [place] Evmyzpramk noteNo assessment information available [facility] Work Phone: Evaluation note* Diagnosis Sudden idiopathic hearing loss of [...] idiopathic peripheral neuropathy documented in this encounter 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 Hodgkin lymphoma, unspecified Hodgkin lymphoma type, unspecified body region (CMS-HCC) documented in this encounter [facility] HospitalEvalubeebe medical center note* Diagnosis Lymphoma, unspecified body region, unspecified lymphoma type (CMS/HCC)- Primary Malnutrition, unspecified type (CMS/HCC) Polyneuropathy Unspecified hereditary and idiopathic peripheral neuropathy documented in this encounter [facility] HospitalEvaluation note* Diagnosis Polyneuropathy- Primary Unspecified hereditary and idiopathic peripheral neuropathy Poor balance Weakness of both lower extremities documented in this encounter [facility]* Diagnosis Polyneuropathy- Primary Unspecified hereditary and idiopathic peripheral neuropathy Poor balance Weakness of both lower extremities documented in this encounter [facility]* Diagnosis Polyneuropathy- Primary Unspecified hereditary and idiopathic peripheral neuropathy Poor balance Weakness of both lower extremities documented in this encounter [facility] HospitalEvalubeebe medical center note* Diagnosis Sensorineural hearing loss (SNHL) of both ears- [facility]* Diagnosis Hodgkin lymphoma, unspecified Hodgkin lymphoma type, unspecified body region (HCC)- Primary documented in this [facility] Diagnosis Hodgkin lymphoma, unspecified Hodgkin lymphoma type, unspecified body region (HCC)- Primary documented in this encounter [facility] note* Diagnosis Hodgkin lymphoma, unspecified Hodgkin lymphoma type, unspecified body region (HCC)- Primary documented in this encounter [facility]* Diagnosis Hodgkin lymphoma, unspecified Hodgkin lymphoma type, unspecified body region (HCC)- Primary documented in this encounter [facility] note* Diagnosis Hodgkin lymphoma, unspecified Hodgkin lymphoma type, unspecified body region (HCC)- Primary documented in this encounter [facility]* Diagnosis Hodgkin lymphoma, unspecified Hodgkin lymphoma type, unspecified body region (HCC) documented in this encounter [facility] note* Diagnosis Hodgkin lymphoma, unspecified Hodgkin lymphoma type, unspecified body region (HCC)- [facility] No data available for this section [facility] InstructionsNot on filedocumented in this encounter [facility] filedocumented in this encounter [facility]ructionsNot on filedocumented in this encounter [facility] SystemInstructionsNot on filedocumented in this encounter [facility] note No data available for this section [facility] reason for visit Narrative* Consultation (Routine) - ClosedSpecialtyDiagnoses / ProceduresReferred By ContactReferred To Contact Neurology Diagnoses Unsteadiness on feet Weakness Procedures [place] OFFICE/OUTPATIENT NEW [facility] MDM 30 MINUTES Ailin Green MD [address] [place] [address] Phone: tel:[phone] fax: Nabeel New MD [address] [place] [address] Phone: tel: fax: Referral IDStatusReasonStart DateExpiration DateVisits RequestedVisits [id number] Consult and Treat / [facility] HealthcareReason for visit Narrative* Consultation (Routine) - Pending ReviewSpecialtyDiagnoses / ProceduresReferred By ContactReferred To Contact Physical Therapy Diagnoses Polyneuropathy Procedures [place] OFFICE/OUTPATIENT NEW HIGH MDM 60 MINUTES Lucas Arenas DO [address] [place] [address] Phone: tel: fax: [facility] [address] [address] Phone: tel: fax: Referral IDStatusReasonStart DateExpiration DateVisits RequestedVisits [id number] Review Specialty Services Required / [facility] HealthcareReason for visit Narrative* Consultation (Routine) - Authorized SpecialtyDiagnoses / ProceduresReferred By ContactReferred To ContactPhysical Therapy Diagnoses Polyneuropathy Procedures [place] OFFICE/OUTPATIENT NEW HIGH MDM 60 MINUTES Lucas Arenas DO [address] [place] [address] Phone: tel: fax: [facility] [address] [facility] [address] [place] [address] Phone: tel: fax: Referral IDStatusReasonStart DateExpiration DateVisits RequestedVisits [id number] Specialty Services Required / [facility] Summary Purpose Family History No [...] DATE CREATED AUTHOR AUTHOR'S ORGANIZ ATION 09/01/2021 [facility] DATE CREATED AUTHOR AUTHOR'S ORGANIZ ATION 06/08/2024 [facility] DATE CREATED AUTHOR AUTHOR'S ORGANIZ ATION 06/11/2024 [facility] DATE CREATED AUTHOR AUTHOR'S ORGANIZ ATION 09/02/2024 [facility] EPIC DATE CREATED AUTHOR AUTHOR'S ORGANIZ ATION 01/14/2025 [facility] DATE CREATED AUTHOR AUTHOR'S ORGANIZ ATION 04/04/2025 [facility] Patient Care team informatio n (unrecognized section and content) Team Status: Active Member Role Status Dates MILKA BardalesC Primary Care Provider Active Team Status: Inactive Member Role Status Dates González Moon DO Primary Care Provider Active Sta rt: April 11, 2024 End: April 11, 2024Nabeel Carterer MDAttending ProviderActiveStart: April 11, 2024 End: April 11, 2024 Team Status: Active Member Role Status Dates MILKA BardalesC Primary Care Provider Active Start: April 21, 2024 Nito Sunshine DOAttending ProviderActiveStart: April 21, 2024 Team Status: Inactive Member Role Status Dates Jassi Alegria MD [facility] Attending Provider Active Start: April 23, 2024 End: April 23, 2024 Team Status: Inactive Member Role Status Dates Sonia Donnelly MD Attending Provider Active St art: May 29, 2024 End: May 29marge Green NP-CPrimary Care ProviderActiveStart: May 29, 2024 End: May 29, 2024 Team Status: Active Member Role Status Dates González Moon DO Primary Care Provider Active Team MemberRelationshipSpecialtyStart DateEnd Date Ailin Green MD [address] [phone] Referring PhysicianFami Aphafmla99/11/24 Ailin Green MD [address] [phone] Referring PhysicianFacharron [facility] Vqmqyjgv71/21/24Team MemberRelationshipSpecialtyStart DateEnd Date Ailin Green MD [address] [phone] Referring PhysicianFamily Orvhthzd26/11/24 Ailin Green MD [address] [place] [address] Referring [facility] Eeccekci18/21/24Team MemberRelationshipSpecialtyStart DateEnd Date Jah Damian MD [address] [id number] PCP - GeneralFamily Enzxiucf46/11/24 Ailin Green MD [address] [place] [address] Referring PhysicianFamily Cfnecfgi39/11/24 Ailin Green MD [address] [place] [address] Referring PhysicianFamily Nuyyackk77/21/24Team MemberRelationshipSpecialtyStart DateEnd Date Jah Damian MD [address] [facility] [place] [address] PCP - GeneralWest[facility] Tgvscrdm81/11/24 Ailin Green MD [address] [place] [address] Referring Physicianmi Lpqrqidj53/11/24 Ailin Green MD [address] [place] [address] Referring PhysicianWest[facility] Rjcdtinj01/21/24Team MemberRelationshipSpecialtyStart DateEnd Jah Damian MD [address] [place] [address] PCP - Generalmily Aqbuubij68/11/24 Ailin Green MD [address] [place] [address] Referring PhysicianWest[facility] Tgjxlfdk99/11/24 Ailin Green MD [address] [place] [address] Referring PhysicianFami Mmcvttfn33/21/24Team MemberRelationshipSpecialtyStart DateEnd Date Jah Damian MD [address] [facility] [place] [address] PCP - Generalmily Rmzkiycx33/11/24 Ailin Green MD [address] [place] [address] Referring PhysicianFamily Ggztjqns19/11/24 Ailin Green MD [address] [place] [address] Referring PhysicianWest[facility] Fvjobhsh58/21/24Team MemberRelationshipSpecialtyStart DateEnd Jah Damian MD [address] [place] [address] PCP - Generalmily Nurcumxz07/11/24 Ailin Green MD [address] [place] [address] Referring Physicianmi Gpfeqswh42/11/24 Ailin Green MD [address] [place] [address] Referring Physicianmi Yuflofir38/21/24Team MemberRelationshipSpecialtyStart DateEnd Date Jah Damian MD [address] [facility] [place] [address] PCP - [facility]West[facility] Gytptonr11/11/24 Ailin Green MD [address] [place] [address] Referring PhysicianFamily Mydrjkgd93/11/24 [place] [address] [place] [address] Referring PhysicianFamily Cudheqgy24/21/24Team MemberRelationshipSpecialtyStart DateEnd Jah Damian MD [address] [place] [address] PCP - GeneralFamily Hibfxqrg63/11/24 Ailin Green MD [address] [place] [address] Referring PhysicianFamily Kuekxook88/11/24 Ailin Green MD [address] [place], [place] [address] Referring PhysicianFamily Ocbgmfqj27/21/24Team MemberRelationshipSpecialtyStart End Ailin Green MD [address] [place] [address] Referring PhysicianFamily Goeuwwuf79/11/24 Ailin Green MD [address] [place] [address] Referring PhysicianFamily Lgxnlgsd62/21/24 Lucas Arenas DO [address] [address] Referring PhysicianNeurology1Team MemberRelationshipSpecialtyStart DateEnd Ailin Green MD [address] [place] [address] Referring PhysicianFamily Lmwfhgez10/11/24 Ailin Green MD [address] [phone] Referring PhysicianFamily Yvqpzrlw37/21/24 Lucas Arenas DO [address] [phone] Referring PhysicianNeurolog08/07/24Team MemberRelationshipSpecialtyStart DateEnd Date Ailin Green MD [address] [place], [place] [address] Referring PhysicianFamily Szphzefk94/11/24 Ailin Green MD [address] [place], [place] [address] Referring PhysicianFamily Yaugpqap03/21/24 Lucas Arenas DO [address] [place] [address] Referring PhysicianNeurolog08/07/24Team MemberRelationshipSpecialtyStart DateEnd Ailin Green MD [address] [place] [address] Referring PhysicianFamily Ncylpbrw25/11/24 Ailin Green MD [address] [place], [place] [address] Referring PhysicianFamily Wscggkmb89/21/24 Lucas Arenas DO [address] [phone] Referring PhysicianNeurology1Team MemberRelationshipSpecialtyStart DateEnd Ailin Green MD [address] [place], [place] [address] Referring PhysicianFamily Mdjhlehk21/11/24 Ailin Green MD [address] [place] [address] Referring PhysicianFamily Crizluvn11/21/24 Lucas Arenas DO [address] [address] Referring PhysicianNeurology1/09/30Team MemberRelationshipSpecialtyStart DateEnd Date Ailin Green MD [address] [place] [address] Referring PhysicianFamily Npyiyjxj67/11/24 Ailin Green MD [address] [place] [address] Referring PhysicianFamily Gczevgsh01/21/24 Lucas Arenas DO [address] [phone] Referring PhysicianNeurology1Team MemberRelationshipSpecialtyStart DateEnd Date Ailin Green MD [address] [place] [address] Referring PhysicianFamily Hqdcough83/11/24 Ailin Green MD [address] [place] [address] Referring PhysicianFamily Sqdbtbaq91/21/24 Lucas Arenas DO [address] [address] Referring PhysicianNeurology1Team MemberRelationshipSpecialtyStart DateEnd Date Ailin Green MD [address] [place] [address] Referring PhysicianFamily Qcqcygtz27/11/24 Ailin Green MD [address] [place] [address] Referring PhysicianFamily Royklazt35/21/24 Lucas Arenas DO [address] [address] Referring PhysicianNeurolog08/07/24Team MemberRelationshipSpecialtyStart DateEnd Date Ailin Green MD [address] [place] [address] Referring PhysicianFamily Gqugklli11/11/24 Ailin Green MD [address] [place] [address] Referring PhysicianFamily Iyypsjvh56/21/24 Lucas Arenas DO [address] [address] Referring PhysicianNeurolog08/07/24Team MemberRelationshipSpecialtyStart DateEnd Date Ailin Green MD [address] [place] [address] Referring PhysicianFamily Grajblpp98/11/24 Ailin Green MD [address] [place] [address] Referring PhysicianFamily Xmzbwkps94/21/24 Lucas Arenas DO [address] [place] [address] Referring PhysicianNeurology1/09/30Te MemberRelationshipSpecialtyStart DateEnd Date Margo Schumacher RD [address] [facility] [address] [place], [place] [address] Registered DietitianNutrition09/26/24Team MemberRelationshipSpecialtyStart Date End Date Margo Schumacher RD [address] [place], [place] [address] Registered DietitianNutrition09/26/24Team MemberRelationshipSpecialtyStart Date End Date Margo Schumacher RD [address] [place] [address] [place] [address] Registered DietitianNutrition09/26/24Team MemberRelationshipSpecialtyStart Date End Date Margo Schumacher RD [address] [place] [address] Registered DietitianNutrition09/26/24Team MemberRelationshipSpecialtyStart Date End Date Margo Schumacher RD [address] [place] [address] [place] [address] Registered DietitianNutrition09/26/24Team MemberRelationshipSpecialtyStart Date End Date Margo Schumacher RD [address] [place] [address] [place] [address] Registered DietitianNutrition09/26/24Team MemberRelationshipSpecialtyStart Date End Date Margo Schumacher RD [address] [place] [address] Registered DietitianNutrition09/26/24Team MemberRelationshipSpecialtyStart Date End Date Margo Schumacher RD [address] [place] [address] [place] [address] Registered DietitianNutrition09/26/24Team MemberRelationshipSpecialtyStart Date End Date Margo Schumacher RD [address] [place] [address] Registered DietitianNutrition09/26/24Team MemberRelationshipSpecialtyStart Date End Date Ailin Green, GRADUATE RECRUITER [address] [place] [address] PCP - GeneralInternal Medicine12/18/[address] [place] [address] Registered DietitianNutrition09/26/24 Goals (unrecognized section and content) Goals may be documented in a n alternate section Reason for Visit (unrecogniz ed section and content) ReasonCommentsCerumen ImpactionBilateralHearing LossLateralityReasonOnset Date CommentsNeed office notes faxed08/13/2024ReasonCommentsHearing ProblemReason Onset DateCommentsCheck PT reqajz8709/23/2024ReasonCommentsPatient EducationReason CommentsNutrition TelephoneReasonCommentsFuture AppointmentSchedule Simulation ReasonCommentsLymphomaReasonCommentsRadiotherapy On-treatment VisitReason CommentsNutrition TelephoneNo answerReasonCommentsHodgkin's Disease Source Comments (unrecognize d section and content) In the event this informatio n is protected by the Federal Confidentiality of Alcohol and Drug Abuse Patient Records regulations: The Federal rules restrict any use of the information to criminally investigate or prosecute any alcohol or drug abuse patient.[facility] CenterIn the event this information is protected by the Federal Confidentiality of Alcohol and Drug Abuse Patient Records regulations: The Federal rules restrict any use of the information to criminally investigate or prosecute any alcohol or drug abuse patient.[facility] CenterIn the event this information is protected by the Federal Confidentiality of Alcohol and Drug Abuse Patient Records regulations: The Federal rules restrict any use of the information to criminally investigate or prosecute any alcohol or drug abuse patient.[facility] CenterIn the event this information is protected by the Federal Confidentiality of Alcohol and Drug Abuse Patient Records regulations: The Federal rules restrict any use of the information to criminally investigate or prosecute any alcohol or drug abuse patient.[facility] CenterIn the event this information is protected by the Federal Confidentiality of Alcohol and Drug Abuse Patient Records regulations: The Federal rules restrict any use of the information to criminally investigate or prosecute any alcohol or drug abuse patient.[facility]In the event this information is protected by the Federal Confidentiality of Alcohol and Drug Abuse Patient Records regulations: The Federal rules restrict any use of the information to criminally investigate or prosecute any alcohol or drug abuse patient.[facility] CenterIn the event this information is protected by the Federal Confidentiality of Alcohol and Drug Abuse Patient Records regulations: The Federal rules restrict any use of the information to criminally investigate or prosecute any alcohol or drug abuse patient.[facility] CenterIn the event this information is protected by the Federal Confidentiality of Alcohol and Drug Abuse Patient Records regulations: The Federal rules restrict any use of the information to criminally investigate or prosecute any alcohol or drug abuse patient.[facility] CenterIn the event this information is protected by the Federal Confidentiality of Alcohol and Drug Abuse Patient Records regulations: The Federal rules restrict any use of the information to criminally investigate or prosecute any alcohol or drug abuse patient.[facility] CenterIn the event this information is protected by the Federal Confidentiality of Alcohol and Drug Abuse Patient Records regulations: The Federal rules restrict any use of the information to criminally investigate or prosecute any alcohol or drug abuse patient.[facility] CenterIn the event this information is protected by the Federal Confidentiality of Alcohol and Drug Abuse Patient Records regulations: The Federal rules restrict any use of the information to criminally investigate or prosecute any alcohol or drug abuse patient.[facility] CenterIn the event this information is protected by the Federal Confidentiality of Alcohol and Drug Abuse Patient Records regulations: The Federal rules restrict any use of the information to criminally investigate or prosecute any alcohol or drug abuse patient.[facility] CenterIn the event this information is protected by the Federal Confidentiality of Alcohol and Drug Abuse Patient Records regulations: The Federal rules restrict any use of the information to criminally investigate or prosecute any alcohol or drug abuse patient.[facility] CenterIn the event this information is protected by the Federal Confidentiality of Alcohol and Drug Abuse Patient Records regulations: The Federal rules restrict any use of the information to criminally investigate or prosecute any alcohol or drug abuse patient.[facility] CenterIn the event this information is protected by the Federal Confidentiality of Alcohol and Drug Abuse Patient Records regulations: The Federal rules restrict any use of the information to criminally investigate or prosecute any alcohol or drug abuse patient.[facility] FOR RECORDS PERTAINING TO PATIENTS [...] BE BASED ON THE PRIMARY CLINICAL RECORDS. [facility]. provides no warranty or guarantee of the accuracy or completeness of information in this document.
[2025-05-26 10:34] LABS: Hematocrit 49.4 % (42.0-54.0); Hemoglobin 16.5 g/dL (14.0-18.0); Immature Granulocytes Abs Auto 0.03 10^3/uL (0.00-0.03); Immature Granulocytes Pct Auto 0.4 % (0.0-0.5); Lymphocytes Absolute Auto 1.0 10^3/uL (1.2-3.8); Mean Corpuscular HGB Conc 33.4 g/dL (29.9-35.2); Mean Corpuscular Hemoglobin 30.8 pg (25.9-34.0); Mean Corpuscular Volume 92.2 fL (80.0-94.0); Platelet Count 215 10^3/uL (150-450); Red Blood Count 5.36 10^6/uL (4.70-6.10); White Blood Count 7.1 10^3/uL (4.0-11.0)
[2025-05-26 11:04] LABS: Alanine Aminotransferase 34 U/L (16-63); Albumin Globulin Ratio 1.0; Albumin Level 3.8 g/dL (3.4-5.0); Alkaline Phosphatase 88 U/L (46-116); Anion Gap 8.0; Aspartate Amino Transferase 20 U/L (15-37); Blood Urea Nitrogen 23.0 mg/dL (7.0-18.0); Calcium 9.1 mg/dL (8.5-10.1); Carbon Dioxide 32.4 mmol/L (21.0-32.0); Chloride 105 mmol/L (98-107); Cholesterol 166 mg/dL (<=200); Estimated GFR (African America >60 (>=60 mL/min/1.73m^2); Estimated GFR (Non-African Ame >60 (>=60 mL/min/1.73m^2); Free T3 2.61 pg/mL (2.18-3.98); Globulin 3.7 g/dL; Glucose 132 mg/dL (74-106); HDL Cholesterol 49 mg/dL (40-60); Potassium 4.4 mmol/L (3.5-5.1); Sodium 141 mmol/L (136-145); Thyroid Stimulating Hormone 2.617 uIU/mL (0.358-3.740); Total Protein 7.5 g/dL (6.4-8.2); Triglycerides 116 mg/dL (<=150); Uric Acid 4.8 mg/dL (3.5-7.2); VLDL CHOLESTEROL 23.2 mg/dL
== END 2025-05-26 09:42 | disposition home or self-care (01) ==
LOC: LAB 09:45
PROVIDERS: PCP Nurse Practitioner Family; Visit Provider Nurse Practitioner Family
DX: I10 Essential (primary) hypertension (principal); Z12.5 Encounter for screening for malignant neoplasm of prostate
CPT/HCPCS: 36415; 80053; 80061; 83036; 83525; 84436; 84443; 84481; 84550; 85025; G0103

== ENCOUNTER 2025-06-09 10:57 | Outpatient (RCR) | payer MEDICARE, SELFPAY ==
--- OUTSIDE RECORDS SUMMARY | 2025-06-09 11:00 | XMS_ITS | Clinical Summary ---
Author Organization [employer] Address [id number] [address] [place] [address] Care Team Providers Care Manager Endoscopy Name Role Phone Unavailable Primary Care Provider [...] Assigned at BirthMale 05/15/2024 2:41 PM EDTLegal MzwXeyj74/10/2024 2:40 PM EDTGender IdentityMale 05/15/2024 2:41 PM EDTSexual BpujnjrqqtvQruijtsl45/10/2024 2:41 PM EDT Last Filed Vital Signs Vital SignReadingTime TakenCommentsBlood Pressure--Pulse--Xeucgilgtme21.3 ??C (97.3 ??F)07/29/2024 9:12 AM ESTRespiratory Rate--Oxygen Saturation--Inhaled Oxygen Concentration--Viqbmq23.2 kg (176 lb 12.8 oz)07/29/2024 9:12 AM ESTHeight 188 cm (6' 2 )07/29/2024 9:12 AM ESTBody Mass Index22.7109/29/2023 9:12 AM EST Plan of Treatment Health MaintenanceDue DateLast DoneCommentsDepression Imtrdkrgb64/28/1968 DTaP,Tdap and Td Vaccines (1 - Tdap)1975Zoster (Shingles) Vaccine (1 of 2) 1975Fall Risk Hltfcyjkf36/28/2021Influenza Xguyyhf7004/06/2025dult BMI Lmmjlvxlf42Tobacco Alukvemej094RSV ( or age 60+ yrs) (1 - 1-dose 75+ series)2031 Medical Devices Not on file Insurance
--- OUTSIDE RECORDS SUMMARY | 2025-06-09 11:01 | XMS_ITS | Encounter Summary ---
Author Organization [facility] Address [address] [place] [address] Care Team Providers Care Wire Coiler Name Role Phone Ailin España MD Unavailable Ailin España MD Unavailable Jah Tinajero MD Primary Care Provider [phone] Lucas Arenas DO Unavailable [phone] Encounter Details DateTypeDepartmentCare Team (Latest Contact Info)Ejvrqtxedko80/08/2024Clinisync Result Encounter [facility] External Department Unsolicited Evelyn Aden PA [address] [place] [address] [place] [address] Social History Tobacco UseTypesPacks/DayYears UsedDateSmoking Tobacco: Never AssessedSex and Gender InformationValueDate RecordedSex Assigned at BirthNot on fileLegal Sex Male10/18/2022 6:49 PM EDTGender IdentityNot on fileSexual OrientationNot on filedocumented as of this encounter Plan of Treatment Not on file documented as of this encounter Procedures Procedure NamePriorityDate/TimeAssociated DiagnosisCommentsECG 12-LEAD06/13/2024 6:35 PM EST documented in this encounter Results * ECG 12-LEAD (06/13/2024 6:35 PM EST)Anatomical RegionLateralityModalityOther Specimen (Source)Anatomical Location / LateralityCollection Method / Volume Collection TimeReceived Time06/13/2024 6:35 PM EST Narrative 06/14/2024 6:30 AM EST [facility] ?[address] ? [place] [address] ? Electrocardiograph Report ? Signed ? Patient: SPIGGLE,HOANG W ?MR#: [id number] ?? : 1955 ?Acct:[id number] ?? Age/Sex: 68 / M ?ADM Date: /08/24 ?? Loc: ICU ??271-1 ? Attending Dr: Jah Tinajero M.D. ? Ordering Physician: Evelyn Aden ?? Date of Service: 06/13/24 ?? Procedure(s): ECG 12 lead ?? Accession Number(s): [id number] ? cc: ?[facility] ? Test Date: ?2024-06-13 ?? Pat Name: ? HOANG BONILLA ? Department: ? Room: ? - ?? Gender: ? Male ? Skull Grinder: ? : ?1955 ? Requested By: [id number] ?? Order Number: [id number] ?Reading MD: ?? JAH ??HOY ? Measurements ?? Intervals ?[place] ? Rate: ? 120 ?P: ?150 ?? [place]: ? 214 ?QRS: ?28 ?? QRSD: ? 88 ? T: ?90 ?? QT: ? 312 ? QTc: ?384 ? Interpretive Statements ?? 1220 Rapid atrial rhythm ?? 1470 with occasional supraventricular premature complexes ?? 2231 First degree AV block ?? 4068 Nonspecific Twave abnormality ?? 9150 ??abnormal ECG ? Compared to ECG 06/13/2024 16:19:31 ?? First degree AV block now present ?? ST (T wave) deviation no longer present ?? Electronically Signed On 06-14-2024 6:29:56 EST by JAH ??TANVI ? Dictated By: ?Jah Tinajero M.D. ? Signed By: ?06/14/24 0630 ? DD/ 1835 ? TD/TT: ? Soil Fertility Specialist: Procedure Note Radiology, Radiologist, - 06/14/2024 [place] [address] Electrocardiograph Report Signed Patient: HOANG BONILLA WMR#: [id number] : 6Acct:[id number] Age/Sex: 68 / MADM Date: 06/13/24 Loc: ICU 271-[address]: Jah Tinajero M.D. Ordering Physician: Evelyn Aden Date of Service: 06/13/24 Procedure(s): ECG 12 lead Accession Number(s): [id number] cc: [facility] Test Date: 2024-06-13 Pat Name: HOANG BONILLA Department: Room: - Gender: Male Skull Grinder: : 1955 Requested By: 0923 Order Number: [id number] Reading MD: JAH TINAJERO Measurements Intervals [place] Rate: 120 P: 150 [place]: 214 QRS: 28 QRSD: 88 T: 90 [...] Tinajero M.D. Signed By:06/14/24629 DD/ 34 TD/TT: Soil Fertility Specialist: Authorizing ProviderResult TypeResult StatusAmy Tubac PACLCHILDR[facility] IMAGINGFinal Result documented in this encounter Visit Diagnoses Not on filedocumented in this encounter Care Teams Team MemberRelationshipSpecialtyStart DateEnd Date Jah Tinajero MD [address] [place] [address] PCP - GeneralFamily Vxswytxe69/11/241 Ailin España MD [address] [place] [address] Referring PhysicianFamily Nfagpimm90/11/24 Ailin España MD [address] [place] [address] Referring PhysicianFamily Rogkrlnd52/21/24 Lucas Arenas DO [address] [place] [address] Referring PhysicianNeurolog08/07/24documented as of this encounter
--- OUTSIDE RECORDS SUMMARY | 2025-06-09 11:01 | XMS_ITS | Clinical Summary ---
Author Organization [facility] Address [address] [place] [address] Care Team Providers Care Burr Bench Operator Name Role Phone Ailin España CNP Primary Care Provider Allergies Active AllergyReactionsCriticalityNoted QwgkDrukkewpAvnntkwzytzjmOjakx83/22/2024 Medications MedicationSigDispense QuantityRefillsLast FilledStart DateEnd DateStatus metFORMIN [...] tablet 5Active Active Problems ProblemNoted DateDiagnosed DateAcoustic oluitak5309/15/2024 Overview (09/15/2024): Outside Source Comment: Comment on above: removed- right ear Guuizku4309/15/2024PH with obstruction/lower urinary tract vyecfohn53/10/2025 Diabetes zksrywff80/10/6410Lgvjhdjnpe54/10/2025History of brain tumor09/15/2024 Jkohuoboioihjl90/10/2025Lymphadenopathy, zxnxzyah44/10/2025Nodular sclerosis Hodgkin lymphoma of lymph nodes of upper zijmxyini85/10/2025Non-Hodgkin lymphoma 09/15/2024OAB (overactive bladder)09/15/2024Poor venous onshgt1609/15/2024 Screening PSA (prostate specific antigen)09/15/2024OSA (obstructive sleep apnea) 02/25/2024Non-rheumatic mitral blmpaydtircaj03/22/2024Nonrheumatic aortic valve ovlcqamvxutrr60/22/2024rimary tzwlrkyhsptu87/22/2024ulmonary arterial ujyrbvgudbci93/15/2017 Encounters DateTypeDepartmentCare UnrtCfhddetafpw48/28/2025Telephone [facility] [address] [place] [address] Patria Coleman MA 03/23/2025 10:15 AM EDTOffice Visit [facility] [address] [place] [address] Renato Staton MD Non-rheumatic mitral regurgitation (Primary Dx); PAF (paroxysmal atrial fibrillation) (CMS/HCC); Primary hypertension; Mixed hyperlipidemia; Nonrheumatic aortic valve stenosis; Nonrheumatic aortic valve insufficiency; ENE (obstructive sleep apnea)from Last 3 Months Family History Medical HistoryRelationNameCommentsCoronary artery diseaseMotherRelationName StatusCommentsFatherDeceasedMotherDeceased Social History Tobacco UseTypesPacks/DayYears UsedDateSmoking Tobacco: NeverSmokeless Tobacco: NeverAlcohol UseStandard Drinks/WeekCommentsYes0 (1 standard drink = 0.6 oz pure alcohol)occasionalSex and Gender InformationValueDate RecordedSex Assigned at AscvkCsie48/13/2025 2:03 PM EDTLegal KhuMlts1202/02/2022 12:01 AM EDTGender RszvsesmDpot96/13/2025 2:03 PM EDTSexual OrientationHeterosexual or Straight 03/18/2025 2:03 PM EDT Last Filed Vital Signs Vital SignReadingTime TakenCommentsBlood Bjvpmcmq567/72003/23/2025 10:43 AM EDT Tckal139903/23/2025 10:43 AM EDTTemperature--Respiratory Rate--Oxygen Saturation 97%03/23/2025 10:43 AM EDTInhaled Oxygen Concentration--Finzkv18.8 kg (198 lb) 03/23/2025 10:43 AM IHHLmnwke269 cm (6' 2 )03/23/2025 10:43 AM EDTBody Mass Index25.4208 10:43 AM EDT Plan of Treatment Health MaintenanceDue DateLast DoneCommentsCT Niyyxwolziob1955olonoscopy 1955Diabetes: Hemoglobin A1C1956FOBT1955Medicare Annual Wellness (AWV)1955 1475Cngvaqftpbjuw1956OVID-19 Vaccine (#1)1961 Diabetes: Retinopathy Jwtwtkcoo85/28/1966Depression Eicpxhpoq36/28/1968Diabetes: Urine Protein Pmlqjqxhv76/28/1975Zoster Vaccines (1 of 2)1975Adult Tetanus 1978Pneumococcal Vaccine: 50+ Years (2 of 2 - PCV)Fall Risk Ogwmflork83/28/3881JAM52/31//olorectal Cancer Screening 09/05/2024FIT-DNA501/Influenza Vaccine (#1)2025HIB VaccinesAged OutNo longer eligible based [...] Teams Team MemberRelationshipSpecialtyStart DateEnd Ailin España CNP [facility], [place] [address] PCP - GeneralFamily Medicine02/25/24
--- OUTSIDE RECORDS SUMMARY | 2025-06-09 11:01 | XMS_ITS | Clinical Summary ---
Author Organization [facility] Address [address] [place] [address] Care Team Providers Care Nutrition Helper Name Role Phone Daly Beckmansanta SOTO Unavailable [phone] Ailin España CNP Primary Care Provider +[phone] Allergies Active AllergyReactionsCriticalityNoted DateCommentsNo Known Drug Allergies 07/24/2005no latex allergy [Other]07/24/2005 Medications MedicationSigDispense QuantityRefillsLast FilledStart DateEnd DateStatus atorvastatin (LIPITOR) 10 mg tablet Take 10 mg by mouth.03/28/2024ctive liothyronine (CYTOMEL) 5 mcg tablet Take 10 mcg by mouth.Active dilTIAZem CD (CARDIZEM CD, CARTIA XT) 240 mg 24 hr capsule Take 240 mg by mouth.06/15/2024ctive apixaban (ELIQUIS) 5 mg tab(s) Take 5 mg by mouth.06/15/2024ctive insulin glargine (LANTUS) 100 unit/mL injection Inject subcutaneously.Active metoprolol tartrate, short acting, (LOPRESSOR) 25 mg tablet Take 50 mg by mouth.07/17/2024ctive ondansetron orally disintegrating (ZOFRAN ODT) 4 mg disintegrating tablet Take 4 mg by mouth at bedtime as needed.05/21/2024ctive pantoprazole DR (PROTONIX) 40 mg tablet 40 mg.06/17/2024ctive Family History Medical HistoryRelationCommentsAlcohol/DrugFatherRelationStatusCommentsFather Social History Tobacco UseTypesPacks/DayYears UsedDateSmoking Tobacco: NeverPassive Smoke Exposure: NeverSmokeless Tobacco: Never Tobacco Cessation:Counseling Given: Not Answered Alcohol UseStandard Drinks/WeekCommentsNot Currently0 (1 standard drink = 0.6 oz pure alcohol)occasionally 2-3 beers every 2 weeks variesArea Deprivation Index AnswerDate RecordedNational Score (1-100), lower number is lower risk71 09/25/2024State Score (1-10), lower number is lower poey01609/25/2024Data from: https://www.neighborhoodatlas.medicine.[facility]/. Last address used for imgkeqlfvya[address]09/25/2024Sex and Gender InformationValueDate RecordedSex Assigned at BirthNot on fileLegal HllGxgq50/02/2012 7:33 AM ESTGender Identity Not on fileSexual OrientationNot on file Last Filed Vital Signs Vital SignReadingTime TakenCommentsBlood Nougkall623/65012/18/2024 10:31 AM EDT Ewfys219912/18/2024 10:31 AM HHYKaocqtabfba29.3 ??C (97.3 ??F)11/13/2024 10:00 AM EDTRespiratory Trze798012/18/2024 10:31 AM EDTOxygen Bctqmjqydm90%12/18/2024 10:31 AM EDTInhaled Oxygen Concentration--Lemewd29.2 kg (185 lb 10 oz)12/18/2024 10:31 AM TYGZrfkre395.2 cm (6' 2.5 )09/25/2024 9:12 AM ESTBody Mass Index23.51 09/25/2024 9:12 AM EST Plan of Treatment Health MaintenanceDue DateLast DoneCommentsAnxiety Gxrnpeomz50/28/1974Depression Ahrzaxans89/28/1974Hepatitis C Wahjmogik56/28/1974DTaP,Tdap,Td Vaccine (1 - Tdap)1975Lipid Xnylbeoxv97/28/1991CT Ntspppumcyag44/28/2001Colonoscopy 2001Fecal Occult Blood2001Prostate Cancer Screening Discussion 08/02/20017854Cxbvicywibrsv25/28/2001Shingrix Vaccine (1 of 2)2006Diabetes Bsbhggllj52/27/, 10/01/2005, 09/30/2005, Additional history exists RSV Vaccine (1 - Risk 60-74 years 1-dose series)2016Pneumococcal Vaccine: 50+ (2 of 2 - PCV)Advance Directive Isztxgnolr72/01/2025 Medicare Advantage Annual Wellness Visit5Cologuard (FIT-DNA)09/05/2024 09/05/2021olorectal Cancer Edvonfskg68/31/2025Covid-19 Vaccine ( season)2025Influenza Vaccine (#1)2025 Procedures Procedure NamePriorityDate/TimeAssociated DiagnosisCommentsEXTERNAL IMAGING 04/14/2025 10:49 AM EDT BASIC METABOLIC PANEL10/02/2005 7:33 AM EST from Last 3 Months or Most Recently Relevant to Health Maintenance Results * EXTERNAL IMAGING (04/14/2025 10:49 AM EDT)Anatomical RegionLateralityModality Other Narrative Authorizing ProviderResult TypeResult StatusExternal Provider PA-CRADIOLOGYFinal Result * (ABNORMAL) BASIC METABOLIC PNL (10/02/2005 7:33 AM EST)ComponentValueRef Range Test MethodAnalysis TimePerformed AtPathologist KwwgslblwIperpnr981(A)65 - 100 mg/dLPROM[facility] JKNEWS7938 - 25 mg/dLPROMEDICA [facility]OL[facility] LABCreatinine0.9 0.7 - 1.4 mg/dLPROMEDICA TOLEDO [facility]ITAL BCDJggrsc166499 - 146 mmol/[facility] LABPotassium4.43.5 - 5.0 mmol/[facility] YERHndovyzl25(A)98 - 110 mmol/[facility] PFSHF62962 - 32 mmol/[facility] LABAnion Fkl297 - 15 mmol/[facility] LABCalcium9.78.5 - 10.5 mg/dLPROMEDICA TOLEDO [facility]OSPITAL LAB Specimen (Source)Anatomical Location / LateralityCollection Method / Volume Collection TimeReceived Time10/02/2005 7:33 AM EST Narrative Authorizing ProviderResult TypeResult StatusGordon B (Hist) HughesLABORATORY Final ResultPerforming OrganizationAddressCity/State/ZIP CodePhone Number [facility] [address] [place] [address] from Last 3 Months or Most Recently Relevant to Health Maintenance Insurance MemberSubscriberPlan / Payer (Effective 2024-Present)Name:Hoang Bonilla Relation to Subscriber:SelfName:Hoang Bonilla Payer ID:[id number] (NAIC) Type:PPO Address: [address] Care Teams Team MemberRelationshipSpecialtyStart DateEnd Date Ailin España, ROLL PICKER [address] [place] [address] PCP - GeneralInternal Medicine12/18/[address] [place] [address] [place] [address] Registered DietitianNutrition09/26/24
--- OUTSIDE RECORDS SUMMARY | 2025-06-09 11:01 | XMS_ITS | Encounter Summary ---
Author Organization [facility] Address [address] [place] [address] Care Team Providers Care Chief School Finance Officer Name Role Phone Ailin España MD Unavailable [phone] Ailin España MD Unavailable [phone] Jah Tinajero MD Primary Care Provider +-[phone] Lucas Arenas DO Unavailable [phone] Encounter Details DateTypeDepartmentCare Team (Latest Contact Info)Pqjzjflvter76/08/2024Clinisync Result Encounter [facility] External Department Unsolicited Evelyn Aden PA [address] [place] [address] [place] [address] Social History Tobacco UseTypesPacks/DayYears UsedDateSmoking Tobacco: Never AssessedSex and Gender InformationValueDate RecordedSex Assigned at BirthNot on fileLegal Sex Male10/18/2022 6:49 PM EDTGender IdentityNot on fileSexual OrientationNot on filedocumented as of this encounter Plan of Treatment Not on file documented as of this encounter Procedures Procedure NamePriorityDate/TimeAssociated DiagnosisCommentsECG 12-LEAD06/13/2024 4:19 PM EST documented in this encounter Results * ECG 12-LEAD (06/13/2024 4:19 PM EST)Anatomical RegionLateralityModalityOther Specimen (Source)Anatomical Location / LateralityCollection Method / Volume Collection TimeReceived Time06/13/2024 4:19 PM EST Narrative 06/14/2024 6:29 AM EST [facility] ?[address] ? [place] [address] ? Electrocardiograph Report ? Signed ? Patient: SPIGGLE,HOANG W ?MR#: [id number] ?? : 1955 ?Acct:[id number] ?? Age/Sex: 68 / M ?ADM Date: /08/24 ?? Loc: ICU ??271-1 ? Attending Dr: Jah Tinajero M.D. ? Ordering Physician: Evelyn Aden ?? Date of Service: 06/13/24 ?? Procedure(s): ECG 12 lead ?? Accession Number(s): [id number] ? cc: ?[facility] ? Test Date: ?2024-06-13 ?? Pat Name: ? HOANG BONILLA ? Department: ? Room: ? - ?? Gender: ? Male ? Forest Fire Prevention Manager: ? : ?1955 ? Requested By: AILIN ESPAÑA ?? Order Number: [id number] ?Reading MD: ?? JAH ??TANVI ? Measurements ?? Intervals ?[place] ? Rate: ? 157 ?P: ?240 ?? [place]: ? 134 ?QRS: ?18 ?? QRSD: ? 84 ? T: ?109 ?? QT: ? 302 ? QTc: ?390 ? Interpretive Statements ?? 1220 Rapid atrial rhythm ?? [address] depression ?? [address] ?? Twave abnormality ?? 9140 ??abnormal rhythm ECG ? Compared to ECG 06/04/2024 16:20:31 ?? ST (T wave) deviation now present ?? Myocardial infarct finding no longer present ?? Left ventricular hypertrophy no longer present ?? Electronically Signed On 06-14-2024 6:29:39 EST by JAH ??TANVI ? Dictated By: ?Jah Tinajero M.D. ? Signed By: ?06/14/24 0629 ? DD/ 1619 ? TD/TT: ? Paleontological Helper: Procedure Note Radiology, Radiologist, - 06/14/2024 [place] [address] Electrocardiograph Report Signed Patient: HOANG BONILLA WMR#: [id number] : 6Acct:[id number] Age/Sex: 68 / MADM Date: 06/13/24 Loc: ICU 271-[address]: Jah Tinajero M.D. Ordering Physician: Evelyn Aden Date of Service: 06/13/24 Procedure(s): ECG 12 lead Accession Number(s): [id number] cc: [facility] Test Date: 2024-06-13 Pat Name: HOANG BONILLA Department: Room: - Gender: Male Forest Fire Prevention Manager: : 1955 Requested By: AILIN ESPAÑA Order Number: [id number] Reading MD: JAH TINAJERO Measurements Intervals [place] Rate: 157 P: 240 [place]: 134 QRS: 18 QRSD: 84 T: 109 [...] By: Jah Tinajero M.D. Signed By:06/14/24628 DD/ 161 TD/TT: Paleontological Helper: Authorizing ProviderResult TypeResult StatusAmy Keiko PACLCARILION [facility] IMAGINGFinal Result documented in this encounter Visit Diagnoses Not on filedocumented in this encounter Care Teams Team MemberRelationshipSpecialtyStart DateEnd Date Jah Tinajero MD [address] [place] [address] PCP - GeneralFamily Dhlyzpvr64/11/241 Ailin España MD [address] [place] [address] Referring PhysicianFamily Cvebvvre53/11/24 Ailin España MD [address] [place] [address] Referring PhysicianFamily Lotvfncb61/21/24 Lucas Arenas DO [address] [place] [address] Referring PhysicianNeurolog08/07/24documented as of this encounter
--- OUTSIDE RECORDS SUMMARY | 2025-06-09 11:01 | XMS_ITS | Clinical Summary ---
Author Organization [facility] Address [address] [place] [address] Care Team Providers Care Unix Engineer Name Role Phone Ailin España MD Unavailable [phone] Ailin España MD Unavailable [phone] Lucas Arenas DO Unavailable [phone] Allergies No known active allergies Medications MedicationSigDispense [...] Last Filed Vital Signs Vital SignReadingTime TakenCommentsBlood Buypowzj19/62008/07/2024 10:05 AM EST Gxzod304208/07/2024 10:05 AM ESTTemperature--Respiratory Rate--Oxygen Saturation 96%08/07/2024 10:05 AM ESTInhaled Oxygen Concentration--Ccvzob64.3 kg (183 lb 9.6 oz)08/07/2024 10:05 AM YQADdwsdc094 cm (6' 2 )06/17/2024 12:25 PM ESTBody Mass Index23.5706/17/2024 12:25 PM EST Plan of Treatment Not on file Insurance Care Teams Team MemberRelationshipSpecialtyStart DateEnd Date Ailin España MD [address] [place] [address] Referring PhysicianFamily Gyhjhjef26/11/24 Ailin España MD [address] [place] [address] Referring PhysicianFamily Dtmcjcbo47/21/24 Lucas Arenas DO [address] [place], [place] [address] Referring PhysicianNeurology1
--- OUTSIDE RECORDS SUMMARY | 2025-06-09 11:03 | XMS_ITS | CCD ---
Author Organization [facility] Care Team Providers Care Rib Knitter Name Role Phone PHYSICIAN, DEFAULT Unavailable Unavailable [...] Consulting Unavailable AILIN GREEN Primary Care Physician [phone] DO González Moon Primary Care Provider MD Nabeel Strange Attending Provider [phone] MD Jassi Alegria Attending Provider Peter ELLIS Ailin Unavailable Peter ELLIS Ailin Unavailable MD Sonia Donnelly Attending Provider MEHRDAD Green Primary Care Provider [phone] Jassi Alegria Attending Unavailable Jassi Alegria Admitting [...] R Attending Unavailable Moody POP Attending Unavailable Jason Tinajero MD Primary Care Provider [phone] Unavailable Primary Care Provider Unavailbraeden Arenas DO, Christopher Unavailable [phone] CLEVE QUINN Attending Unavailable DEEPA, CHRISTOPHER Referring Unavailable YANNA HARRISON Attending Unavailable DEEPA, CHRISTOPHER Attending Unavailable PETER, AILIN Referring Unavailable LILLIAN NAGEL Attending Unavailable LILLIAN NAGEL Attending Unavailable DEEPA, CHRISTOPHER Attending Unavailable DEEPA, CHRISTOPHER Attending Unavailable CLEVE QUINN Attending Unavailable DEEPA, CHRISTOPHER Referring Unavailable AUREA SANCHEZ Attending Unavailable DEEPA, CHRISTOPHER Referring Unavailable Unavailable Primary Care Provider UnavailMargo Garcia RD Unavailable [phone] Ailin Green CNP S Primary Care Provider [...] STATON Attending Unavailable JEROD STATON Attending Unavailable Ailin Green MD Unavailable Ailin Green MD Unavailable Jason Tinajero MD Primary Care Provider Deepa Elanmady Unavailable Allergies Allergy ClassificationReported Allergen(s)Allergy TypeDate of OnsetReaction(s) Facility (2 sources)No Known Allergies; Translations: [No Known Allergies]Propensity to adverse reactions (disorder)52-51-1681[facility] Repository (1 source)Unable to AssessDrug allergy (disorder)90-00-9867[facility] ([facility] source)No Known Medication Allergies; Translations: [No Known Medication Allergies]Propensity to adverse reactions (disorder)[facility] Repository (15 sources)no latex allergy [Other]Propensity to adverse beuwhcqrg98-69-5553 [facility] (1 source)OTHER; Translations: [OTHER]Propensity to adverse reactions (disorder) 07-87-3850[facility]lsu[facility] (1 source)empagliflozin; Translations: [EMPAGLIFLOZIN]Drug Qozgogz96-98-6651 [facility] Repository Medications Current Medications MedicationDrug Class(es)DatesSig (Normalized)Sig (Original)amLODIPine 10 mg oral tablet (1 source)Dihydropyridine Calcium Channel BlockerStart: 71-70-5195ogITBJLalm 10 mg Tab 90 tab(s), 0 Refill(s), Refills(s) 0 Start Date: 01/21/24 Status: Ordered apixaban 5 mg oral tablet (20 sources)Factor Xa InhibitorStart: 52-67-0941ocokgtnj (ELIQUIS) 5 mg tab(s) Take 5 mg by mouth. 06/15/2024 Activeatorvastatin 10 mg oral tablet (20 sources)HMG-CoA Reductase InhibitorStart: 03-28-2024 End: 47-86-7850hbptsiljfrmm (LIPITOR) 10 mg tablet Take 10 mg by mouth. 03/28/2024 03/28/2025 ActiveStart: 87-61-5704gdeumskjxqec 40 mg Tab 90 tab(s), 0 Refill(s), Refills(s) 0 Start Date: 01/21/24 Status: Orderedcarvedilol 6.25 mg oral tablet (4 sources)alpha-Adrenergic Erick, beta-Adrenergic BlockerStart: 04-30-2024 take 1 tablet by mouth once dailycarvedilol 6.25 mg Tab 6.25 mg = 1 tab(s), Oral, Daily, Refills(s) 0 Start Date: 04/30/24 Status: OrderedStart: 01-21-2024 carvedilol 6.25 mg Tab 0 Refill(s), Refills(s) 0 Start Date: 01/21/24 Status: Cfgdqfz26 hr dilTIAZem hydrochloride 240 mg extended release oral capsule (20 sources)Calcium Channel BlockerStart: 66-31-9628xkgFWTMfy CD (CARDIZEM CD, CARTIA XT) 240 mg 24 hr capsule Take 240 mg by mouth. 06/15/2024 ActiveStart: 14-67-4428sxck 1 capsule by mouth every twenty-four hours in the morning dilTIAZem CD (CARDIZEM CD) 240 mg 24 hr capsule Take 1 capsule (240 mg total) by mouth in the morning. 06/15/2024 Activeempagliflozin 25 mg oral tablet (1 source)Sodium-Glucose Cotransporter 2 InhibitorStart: 40-01-9143Gzxjzgprn 25 mg oral tablet 90 tab(s), 0 Refill(s), Refills(s) 0 Start Date: 01/21/24 Status: Ordered3 ml insulin glargine 100 unt/ml pen injector (20 sources)Insulin AnalogStart: 95-72-3349Qtaktt Solostar Pen 100 units/mL subcutaneous solution 20 unit(s), SubCutaneous, Once a day (at bedtime), Refills(s) 0 Start Date: 04/25/24 Status: Orderedinsulin glargine (LANTUS) 100 unit/mL injection Inject subcutaneously. Activeinject 20 [IU] by subcutaneous injection at bedtimeinsulin glargine (Lantus) 100 UNIT/ML injection Inject 20 Units under the skin at bedtime Activeliothyronine sodium 0.005 mg oral tablet (20 sources)l-TriiodothyronineStart: 94-52-9694lnbv 1 tablet by mouth once daily liothyronine 5 mcg Tab 5 mcg = 1 tab(s), Oral, Daily, Refills(s) 0 Start Date: 05/27/24 Status: Orderedliothyronine (CYTOMEL) 5 mcg tablet Take 10 mcg by mouth. Activelosartan potassium 100 mg oral tablet (20 sources)Angiotensin 2 Receptor BlockerStart: 77-37-5968vefg 1 tablet by mouth once dailylosartan 100 mg Tab 100 mg = 1 tab(s), Oral, Daily, Refills(s) 0 Start Date: 01/21/24 Status: Orderedtake 1 tablet by mouth once dailylosartan (Cozaar) 50 MG tablet Take 50 mg by mouth Daily ActivemetFORMIN hydrochloride 1000 mg oral tablet (20 sources)BiguanideStart: 05-75-7872ubpu 1 tablet by mouth once dailymetformin 1000 [...] 25 mg oral tablet (20 sources)beta-Adrenergic BlockerStart: 62-20-4413btqmpbtstr tartrate, short acting, (LOPRESSOR) 25 mg tablet Take 50 mg by mouth. 07/17/2024 Activetake 1 tablet by mouth in the morningmetoprolol tartrate (Lopressor) 50 MG tablet Take 50 mg by mouth in the morning and 50 mg before bedtime. Activeondansetron 4 mg oral tablet (20 sources)Serotonin-3 Receptor AntagonistStart: 72-36-7452vpedtuvztht 4 mg Tab as directed, Refills(s) 0 Start Date: 05/27/24 Status: OrderedStart: 05-21-2024 take 1 tablet by mouth every twenty-four hours as neededondansetron orally disintegrating (ZOFRAN ODT) 4 mg disintegrating tablet Take 4 mg by mouth at bedtime as needed. 05/21/2024 Activepantoprazole 40 mg delayed release oral tablet (20 sources)Proton Pump InhibitorStart: 10-64-8978nzpeqqvnolrq DR (PROTONIX) 40 mg tablet 40 mg. 06/17/2024 Activeprochlorperazine 10 mg oral tablet (2 sources)PhenothiazineStart: 71-97-4594cmcruljnfkmmznfk 10 mg Tab as directed, Refills(s) 0 Start Date: 05/27/24 Status: OrderedSITagliptin 100 mg oral tablet (20 sources)Dipeptidyl Peptidase 4 InhibitorStart: 16-27-3669sdvq 1 tablet by mouth in the morningJANUVIA 100 mg tablet Take 1 tablet (100 mg total) by mouth in the morning. 01/21/2024 Activesucralfate 1000 mg oral tablet (7 sources)Aluminum ComplexStart: 48-92-4226tzpv 1 tablet by mouth at bedtime sucralfate (CARAFATE) 1 gram tablet Take 1 tablet (1 g total) by mouth in the morning and 1 tablet (1 g total) at noon and 1 tablet (1 g total) in the evening and 1 tablet (1 g total) before bedtime.07/13/2024 Activetamsulosin hydrochloride 0.4 mg oral capsule (4 sources)alpha-Adrenergic BlockerStart: 01-21-2024 End: 11-17-6573whzg 1 capsule by mouth once dailyFlomax 0.4 [...] 50 mg oral tablet (2 sources)Opioid AgonistStart: 43-66-2199opdIESOY 50 mg Tab as directed, Refills(s) 0 Start Date: 05/27/24 Status: Ordered Completed/Discontinued Medications MedicationDrug Class(es)DatesSig (Normalized)Sig (Original)ciprofloxacin 500 mg oral tablet (4 sources)Quinolone AntimicrobialStart: 86-94-6198Cemtn 500 mg Tab 500 mg = 1 tab(s), Oral, As Directed, Patient to take 1 tab the day before procedure and the 2nd tab the day of procedure once completed, # 2 tab(s), Refills(s) 0, Pharmacy: [facility], 187, cm, 01/21/24 11:48:00 EDT, Height/Length Dosing, 118, kg, 01/21/24 11:48:00EDT, Weight Dosing Start Date: 01/21/24 Status: OrderedDULoxetine 60 mg delayed release oral capsule (2 sources)Serotonin and Norepinephrine Reuptake InhibitorStart: 02-08-2007 End: 12-12-0251gofa 1 capsule by mouth once dailyduloxetine (CYMBALTA) 60 mg ORAL CpDR Take one(1) capsule daily. 90 3 02/08/2007 09/25/2024 Discontinued (Course of therapy completed)Start: 11-12-2006 End: 62-97-6359EECRYRCG 30 MG CAP Indications: Headache(784.0) , Trigeminal nerve disorder, unspecified Take one(1) capsule daily for 2 weeks then bid 60 6 11/12/2006 09/25/2024 Discontinued (Course of therapy completed)eletriptan 40 mg oral tablet (1 source)Serotonin-1b and Serotonin-1d Receptor AgonistStart: 02-13-2007 End: 10-14-7199oqqmblpeoe (RELPAX) 40 mg ORAL Tab Indications: Headache(784.0) , Trigeminal nerve disorder, unspecified take 1 po prn severe GEORGES, may repeat once after 2 hrs (max 2/d, 3 days/week) 36 3 02/13/2007 09/25/2024 Discontinued (Course of therapy completed)esomeprazole 40 mg delayed release oral capsule (1 source)Proton Pump InhibitorStart: 02-13-2007 End: 70-70-5292mnek 1 capsule by mouth once dailyesomeprazole (NEXIUM) 40 mg ORAL CpDR Indications: Headache(784.0) , Trigeminal nerve disorder, unspecified Take one(1) capsule daily. 90 3 02/13/2007 09/25/2024 Discontinued (Discontinued by anotherHealth Care Provider)ibuprofen 200 mg oral tablet (1 source)Nonsteroidal Anti-inflammatory DrugStart: 10-08-2006 End: 10-04-2905SISBNJBRA 200 MG TAB 0 10/08/2006 09/25/2024 Discontinued (Course of therapy completed)indomethacin 75 mg extended release oral capsule (1 source)Nonsteroidal Anti-inflammatory DrugStart: 02-08-2007 End: 49-76-7682aonpsavaflrm SR (INDOCIN SR) 75 mg ORAL CpSR Indications: Headache(784.0) , Trigeminal nerve disorder, unspecified after prednisone taper, take 1 po bid 180 3 02/08/2007 09/25/2024 Discontinued (Course of therapy completed)predniSONE 10 mg oral tablet (1 source)Start: 11-12-2006 End: 94-38-5097CQWNITYCPY 10 MG TAB Indications: Headache(784.0) , Trigeminal nerve disorder, unspecified take 60mg po qd for 10 days then decrease by 10mg every 3 days 1 course 0 11/12/2006 09/25/2024 Discontinued(Course of therapy completed) Problems Active Problems Problem ClassificationProblemDateDocumented DateEpisodic/ChronicAnxiety disorders (3 sources)Qigcsvd85-82-2542WuxaferZjjgnf; other and unspecified primary (2 sources)History of benign schwannoma; Translations: [Personal history of other benign neoplasm]92-18-1941XefayracUvsvhcm dysrhythmias (2 sources)Paroxysmal atrial fibrillation; Translations: [Paroxysmal atrial fibrillation]Onset: 12-11-3015NkfonahOyegokmz mellitus without complication (5 sources)Type 2 diabetes mellitus without complications; Translations: [Diabetes mellitus]Onset: 048539-62-1138TsdgzplHkgqalcd mellitus without complication (9 sources)Other abnormal glucose; Translations: [Glycosuria]Onset: 08-26-2021 EpisodicDisorders of lipid metabolism (7 sources)Hyperlipidemia, unspecified; Translations: [Hyperlipidemia]Onset: 486267-37-8005LkxfeqkJlgxnxfqw hypertension (8 sources)Essential (primary) hypertension; Translations: [Hypertensive disorder]Onset: 853007-41-3539ZhlxxigFzktp valve disorders (10 sources)Nonrheumatic mitral (valve) insufficiency; Translations: [Non- rheumatic mitral regurgitation ]Onset: 719364-10-0578PrvtaihJqwkvkm`s disease (13 sources)Nodular sclerosis Hodgkin lymphoma, 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; Translations: [Hodgkin disease, nodular sclerosis of lymph nodes of upper limb]Onset: 33-39-6339WjjlcizPqoufch`s disease (2 sources)Hodgkin`s qteqifl41-67-6394Yulnkvulvmj of prostate (6 sources)Benign prostatic hypertrophy with outflow obstruction; Translations: [Benign prostatic hyperplasia with lower urinary tract symptoms]Onset: 77-46-2988VxezpiqMckagndtecnwt (4 sources)Localized enlarged lymph nodes; Translations: [Localized enlarged lymph nodes]Onset: 96-75-1614MvqwnvkuVbwcjip and fatigue (3 sources)Asthenia; Translations: [Weakness]15-49-7903AdmljivvViv-Hodgkin`s lymphoma (7 sources)Non-Hodgkin's lymphoma (clinical); Translations: [Non-Hodgkin lymphoma, unspecified, 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]Onset: 05-29-2024 49-13-9332LghegvwAemnpltwoev deficiencies (4 sources)Undernutrition; Translations: [Unspecified protein-calorie malnutrition]21-35-2474TcvjrhgTfphc and unspecified benign neoplasm (4 sources)Acoustic neuroma; Translations: [Benign neoplasm of cranial nerves] 01-72-1536SsqmlreJmbtfsk on above:Outside Source Comment: Comment on above: removed- right earOther circulatory disease (2 sources)Difficult venous ayefpn75-63-5108VqixshmkVfatd connective tissue disease (3 sources)Other symptoms and signs involving the musculoskeletal system; Translations: [Other musculoskeletalsymptoms referable to limbs]08-20-2024 EpisodicOther diseases of bladder and urethra (2 sources)Detrusor overactivity; Translations: [Overactive bladder]Onset: 27-31-0257VrzsydcRtgko diseases of bladder and urethra (4 sources)Overactive kliyllu03-97-1535OjblyswQmwlh diseases of veins and lymphatics (1 source)Disorder of vein; Translations: [Other specified disorders of veins] Onset: 01-33-9020BnzxdrgvYeoyb ear and sense organ disorders (5 sources)Sensorineural hearing loss, bilateral; Translations: [Sensorineural hearing loss, bilateral]19-96-1685XkglvanAuute ear and sense organ disorders (1 source)Asymmetrical sensorineural hearing loss; Translations: [Sensorineural hearing loss, bilateral]50-32-1858RehevsxVaffw ear and sense organ disorders (3 sources)Sudden idiopathic hearing loss; Translations: [Sudden idiopathic hearing loss, left ear]57-68-7700KgdbkmyoSswbo nervous system disorders (8 sources)Polyneuropathy; Translations: [Polyneuropathy, unspecified]07-10-2024 ChronicOther nervous system disorders (1 source)H/O: brain fhqgngeq46-73-6271RuoxmlblHvqgi nervous system disorders (3 sources)Poor balance; Translations: [Other abnormalities of gait and mobility]12-68-9556QpvckztlMfvvwbthn heart disease (3 sources)Pulmonary arterial zstatdxgyaen73-05-8143MzpcgofOdxaxjni codes; unclassified (4 sources)Sleep eteyx38-27-1636YslqpeuUkuiamlmwnn failure; insufficiency; arrest (1 source)Dependence on supplemental oxygen; Translations: [DEPENDENCE ON SUPPLEMENTAL OXYGEN]Onset: 94-09-6393JqlcgjvDibloirviaji (3 sources)Obstructive sleep apnea (adult) (pediatric); Translations: [OBSTRUCTIVE SLEEP APNEA (ADULT) (PEDIATRIC)]Onset: 61-00-3094Tmfcmak Unclassified (8 sources)Abnormal result of other cardiovascular function study; Translations: [Encounter for screening for malignant neoplasm of prostate]Onset: 2017 EpisodicUnclassified (2 sources)Unknown / UNK(Unknown)Onset: 68-98-7133Hrnbtdtovowm (1 source)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; Translations: [CUSTODIAL (CURRENT) USE OF ORAL 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 DRUGS]Onset: 2017 Unclassified (4 sources)Patient encounter toystu28-76-7719Lalvh infection (1 source)COVID-19; Translations: [COVID-19]Onset: 12-08-2020 Past or Other Problems Problem ClassificationProblemDateDocumented DateEpisodic/ChronicOther aftercare (1 source)residential (current) use of aspirin; Translations: [CUSTODIAL (CURRENT) USE OF ASPIRIN]Onset: 38-24-8264VeopwmmnSdsun lower respiratory disease (1 source)Shortness of breath; Translations: [SHORTNESS OF BREATH]Onset: 40-78-4159SwwihjqmZdufy lower respiratory disease (3 sources)Cough; Translations: [COUGH]Onset: 20-49-1968Hlucewkh Results Test NameValueInterpretationReference SvusmRrvdfyun09xi 67-51-309910Rseucahcl lab results from 03/23/2025: MD Patria Klein MA His LDL is low. He can stop atorvastatin. LM asking that patient return my call.[facility] Office Visiton 48-46-6777Kpwzzm-up [id number] Nabeel Tran 1955 M Date Provider Department Center 03/23/2025 Adrián-JEROD STATON ELIAS Rosario Family History Problem Relation Age of Onset Coronary artery disease Mother Family Status - Relation Status Age at Mother Father Level of Service:66562 NC OFFICE/OUTPATIENT ESTABLISHED MOD [facility] Only[facility] 62-22-3535Vlakci [id number] Nabeel Tran 1955 M Date Provider Department Center 02/23/2025 [id number], [facility] History Problem Relation Age of Onset Coronary artery disease Mother Family Status - Relation Status [facility]NoalUniDay[facility] HospitalCNOVon 12-52-3192HHCFZgwdrb Visit (JYOTIA) CHELSEANABEEL Hector ([id number]) 1955 M Date Time Provider Department 12/18/24 [...] under the care of Dr. Donnelly at [facility] and repeat pet imaging after the [...] of said technology/software. Referring Provider: RG WINSTON [[id number]] Allergies As of Date: 12/18/2024 Noted Allergy [...] for Encounter Date Provider Department Center 12/18/2024 [id number] WINSTONusky Encounter Status:Closed by RG WINSTON on 12/29/24[facility] 42-74-3161FQUPEzdcechnp (RADTSA) NABEEL TRAN ([id number]) 1955 M Date Time Provider Department 12/02/24 [...] Encounter Status:Closed by ANA PAULA CHAUHAN on 12/11/24[facility] 50-77-8498KRNPMgagur Visit (MARCTSA) NABEEL TRAN ([id number]) 1955 M Date Time Provider Department 11/13/24 [...] under the care of Dr. Donnelly at [facility] and repeat pet imaging after the third cycle on 09/08/2024 noted excellent metabolic response (Deauville 3). COURSE: Consolidative AREA TREATED: Right axilla/neck CURRENT DOSE: 80139 cGy in 18 fx PLANNED DOSE: 3600 [...] Rg Winston MD Referring Provider: RG WINSTON [[id number]] Allergies As of Date: 11/13/2024 Noted Allergy [...] (None) Encounter Status:Closed by RG WINSTON on 11/24/24[facility] 09-57-0793CMVXLzkfmd Visit (RADTSA) NABEEL TRAN ([id number]) 1955 M Date Time Provider Department 11/05/24 [...] under the care of Dr. Donnelly at [facility] and repeat pet imaging after the [...] (None) Encounter Status:Closed by RG WINSTON on 11/17/24[facility] 30-62-8101KJUBZvbksf Visit (MC) NABEEL TRAN ([id number]) 1955 M Date Time Provider Department 10/29/24 [...] under the care of Dr. Donnelly at [facility] and repeat pet imaging after the [...] (None) Encounter Status:Closed by RG WINSTON on 11/10/24[facility] 49-33-4592CLDAHrfueq Visit (JYOTIA) NABEEL TRAN ([id number]) 1955 M Date Time Provider Department 10/21/24 [...] under the care of Dr. Donnelly at [facility] and repeat pet imaging after the [...] (None) Encounter Status:Closed by RG WINSTON on 11/03/24[facility] 68-89-3070AYQNDPFHcxbk Visit (MC) NABEEL TRAN ([id number]) 1955 M Date Time Provider Department 10/07/24 [...] Encounter Status:Closed by ANA PAULA CHAUHAN on 10/08/24[facility] 20-39-9428AKSZEmlqld Visit (RADTSA) NABEEL TRAN Hector ([id number]) 1955 M Date Time Provider Department 09/25/24 [...] the Department of Radiation Oncology at the [facility] with Rg Winston MD. He was accompanied today by his family. Final recommendations will be communicated back to the requesting physician by way of the shared medical record, or letter to requesting physician via US mail. HISTORY OF PRESENT ILLNESS: Mr. Tran is a 69-year old gentleman [place], [place] with a history of hearing loss [...] atypical lymphoproliferative disorder after second review through [facility]. A second core biopsy was obtained [...] has 2 children, and lives in the [facility]. 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 He denies tobacco or alcohol use. RADIATION [...] 98% BMI 23 (more content not included)...Normal [facility] 21-04-0669GBBFLsinczrnl (RADTSA) NABEEL TRAN ([id number]) 1955 M Date Time Provider Department 09/25/24 [...] (None) Encounter Status:Closed by MARJAN AVILA on [facility]/01/24[facility] 41-50-3569Tauxfk-up [id number] Nabeel Tran Hector 1955 M Date Provider Department Center 09/15/2024 JEROD BANKS [facility] Family History Problem Relation Age of Onset Coronary artery disease Mother Family Status - Relation Status Age at Mother Level of Service:90341 NC OFFICE/OUTPATIENT ESTABLISHED MOD [facility]DM 30 [facility] HospitalMLR HEMOGLOBIN A1Con 56-07-6933Xpqtdnc [Mass/Vol]126 mg/dLNOMS ExjvmwxggyFjT6y (Bld) [Mass fraction]6 %4.5 - 6.2 %NOMS HealthcareComment on above:ADA RECOMMENDED LIMIT 4.0 - 6.0 ADA THERAPEUTIC TARGET < 7.0 ACTION SUGGESTED > 7.0 CLINISYNCNOMS HealthcareEMG 2 Extremitieson 80-93-6776Clugrdqumqepvy which is axonal loss in type, motor predominant and severe Can not exclude radiculopathyNOMS HealthcareNOMS HealthcareNVC 9-10 Nerveson 51-70-9523Xukbcdheotwqea which is axonal loss in type, motor predominant and severe Can not exclude radiculopathyNOMS HealthcareNOMS HealthcareOffice Visiton 99-01-1703Ffpesv-up [id number] AsiyabelleNabeel nielsen Hector 1955 M Date Provider Department Center 06/19/2024 Joey-FABIOLA BENDER ELIAS [facility] Family History Problem Relation Age of Onset Coronary artery disease Mother Family Status - Relation Status Age at Mother Level of Service:78905 NC OFFICE/OUTPATIENT ESTABLISHED LOW MDM 20 [facility]Or[facility] Onlyon 17-47-2973Jhziue [id number] Nabeel Tran Hector 1955 M Date Provider Department Center 06/19/2024 JOSE ALFREDO GARCIA [facility] Family History Problem Relation Age of Onset Coronary artery disease Mother Family Status - Relation Status Age at MotherNormalUniversity of Johnson Medical CenterECG 12-LEADon 40-87-9677Rng[address] [address] Electrocardiograph Report Signed Patient: NABEEL TRAN MR#: [id number] : 1955 Acct:[id number] Age/Sex: 68 / M ADM Date: 06/13/24 Loc: ICU 271-[address]: Jason Tinajero M.D. 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 Signed By: 06/14/24 0630 DD/ 1835 TD/TT: Aircraft Maintenance Supervisor:TBHRadiology, Radiologist, MD - 06/14/[address] [address] Electrocardiograph Report Signed Patient: NABEEL TRAN MR#: [id number] : 1955 Acct:[id number] Age/Sex: 68 / M ADM Date: 06/13/24 Loc: ICU 271-[address]: Jason Tinajero M.D. 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 Signed By: 06/14/24629 DD/ 1835 TD/TT: Aircraft Maintenance Supervisor: [place] [address] Electrocardiograph Report Signed Patient: NABEEL TRAN MR#: [id number] : 1955 Acct:[id number] Age/Sex: 68 / M ADM Date: 06/13/24 Loc: ICU [address]: Jason Tinajero M.D. 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 Signed By: 06/14/24628 DD/ 18 TD/TT: Aircraft Maintenance Supervisor:JOLLYHRadiologJack chan, - 06/14/2024 [place] [address] Electrocardiograph Report Signed Patient: NABEEL TRAN MR#: [id number] : 1955 Acct:[id number] Age/Sex: 68 / M ADM Date: 06/13/24 Loc: ICU 271-[address]: Jason Tinajero M.D. 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 Signed By: 06/14/2429 DD/ 18 TD/TT: Aircraft Maintenance Supervisor: KAYCE Calderon 12-LEADOrdered By: Radiologist Radiology on 16-47-2173CMTJ Wordeo Work Phone: [facility] Wordeo Work Phone: ecG 12-LEADon 95-11-1542Ycooiizcn Study observation (narrative)[facility] HealthcareRadiology Study observation (narrative)[facility] ISTAT XRay CREon 36-08-1923YOKOK GFR> 60.0[facility] Comment on above:Result Comment: PERFORMED BY: [place] [address] PATHOLOGIST TAX ACCOUNTING MANAGER KASSI WATERS M.D.Performed By: #### ISCRE #### [place] [address] USAMR head/brain wo/w conon 15-99-3296RV head/brain wo/w con [facility] [place] [address] [place] [address] MRI Report Signed Patient: Nabeel Tran MR#: [id number] : 1955 Acct:[id number] Age/Sex: 68 / M ADM Date: 05/29/24 [...] Alexis Patel M.D.05/29/2024 1:38 PM Dictation Location: [place] [address] Transcribed By: [facility] 05/29/24 1338 Dictated By: Alexis Patel II, MD 05/29/24 1325 Signed By: 05/29/[address] [address] Physician GroupNo Panel InformationOrdered By: Sonia Donnelly on 35-00-3403Hyhldeq Estimated GFR (eGFR)> 60.0[facility] MemorialWhole blood creatinine measurementOrdered By: Sonia Donnelly on 88-19-4979Pgjnvnvppf [Mass/Vol]0.8 mg/dLNormal0.6-1.3FBlanchard Valley Health SystemComment on above:ER/ESD physician is notified/shown all ISTAT results.Critical values may be confirmed by laboratorytesting ifdeemed necessary by ER attending doctor.Result Comment: ER/ESD physician is notified/shown all ISTAT results. Critical values may be confirmed by laboratory testing if deemed necessary by ER attending doctor.Performed By: #### ISCRE #### [facility] [address] [id number] USAXR pre/post mri xrayon 40-60-7909KH pre/post mri xray [facility] [place] [address] [place] [address] MRI Report Signed Patient: Nabeel Tran MR#: [id number] : 1955 Acct:[id number] Age/Sex: 68 / M ADM Date: 05/29/24 Loc: MR Room: Type: [facility] Attending Dr: Sonia Donnelly MD Copies to: Sonia Donnelly MD Ordering Provider: Sonia Donnelly MD Date of Service: 05/29/24 MR/MR cervical spine wo/w con: C85.90, C85.94, C85.11 ([id number]) XR/XR pre/post mri xray: C85.90, C85.94, C85.11 [...] Alexis Patel M.D.05/29/2024 1:00 PM Dictation Location: [place] [address] Transcribed By: [facility] 05/29/24 1300 Dictated By: Alexis Patel II, MD 05/29/24 1254 Signed By: 05/29/[address] [place] [address] Physician GroupSURGICAL PATHOLOGY REFERENCE LAB CONSULTon 76-23-0123CJZHWACW 1:NormalSt. Elizabeth Hospital on above:Order Comment: Specimen Type: FORMALIN-FIXED PARAFFIN-EMBEDDED TISSUE SPECIMENOrdering Facility: [facility] Address: [facility] [place], [place] [address]Avsaxh Comment: Repeat MUM1 immunostain does in fact stain the focal large atypical cells. No change in final diagnosis. ABO 05/14/2024 Addendum electronically signed by Lory Vick MD, PhD on 05/14/2024 at 4:02 PMPerformed By: #### [id number] ####[facility] LABCLIA [id number] [place] [id number] [place] CASE REPORTNoThe [facility] Hospital on above:Order Comment: Specimen Type: FORMALIN-FIXED PARAFFIN-EMBEDDED TISSUE SPECIMENOrdering Facility: [facility] Address: [address] [place], [place] [address] [address]Lxibff Comment: Surgical Pathology Report Case: [id number] Authorizing Provider: Kin Lauren MD Collected: 05/05/2024 04:52 PM Ordering Location: [facility] Received: 05/05/2024 04:52 PM [facility] Pathologist: Lory Vick MD, PhD Specimen: Slide(s), 18 SLIDES [id number] By: #### [id number] ####[facility] LABCLIA [id number] [place] [address] [place] OF AMERICACLINICAL HISTORYCONSULT REQUESTEDNoThe Christ Hospital on above:Order Comment: Specimen Type: FORMALIN-FIXED PARAFFIN-EMBEDDED TISSUE SPECIMENOrdering Facility: [facility] Address: [address] [place], [place] [address]ADRIEN [place] [address]Yaeahldsg By: #### [id number] ####[facility] LABIA [id number] [place] [id number] [place] STATES OF AMERICADIAGNOSIS COMMENTNoThe [facility] Hospital on above:Order Comment: Specimen Type: FORMALIN-FIXED PARAFFIN-EMBEDDED TISSUE SPECIMENOrdering Facility: [facility] Address: [address] [place], [place] [address]ADRIEN [place] [address]Bdjojp Comment: Per the provided report, flow cytometric analysis detected no significant immunophen otypic abnormalities on the lymphocytes, with a CD4:CD8 ratio 4.4. 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 Morphologically and immunophenotypically, these large atypical cells are co mpatible with Hodgkin and Neto-Jude cells/variants. However, this tiny, focal involvement is unusual. If the patient has additional lymphadenopathy, biopsy of another site is recommended to definitely diagnose involvement by a Hodgkin lymphoma. Correlation with imaging studies is strongly recommended. This case was also reviewed by Dr. Mare Pierce ([facility] hematopathology section), who agrees with the above interpretation and final diagnosis. Thank you for sending this case in consultation. Please contact the Hematopathology Consult Service at [phone] for any questions or if blaine tional follow-up information becomes available. Laboratory Developed Test (LDT) Disclaimer: Performance characteristics of immunohistochemical, immunofluorescent and chromogenic in-situ hybridization tests have been determined by the performing laboratory within [facility]???s [facility] Pathology and Laboratory Medicine Department ([facility], [facility], [facility], [facility], [facility], [facility], or [facility]) in a manner consistent with CLIA requirements. One or more of these tests havenot been cleared or approved by the FDA. [facility] is regulated under CLIA as qualified to perform high-complexity testing. These tests are used for clinical purposes. They should not be regarded as investigational or for research. Positive and negative controls stain appropriately.Performed By: #### [id number] ####[facility] LABCLIA [id number] [place] [address] [place] [facility]ILL[facility]ST HOSPITALFINAL DIAGNOSISNoFostoria City Hospitalment on above:Order Comment: Specimen Type: FORMALIN-FIXED PARAFFIN-EMBEDDED TISSUE SPECIMENOrdering Facility: [facility] Address: [address] [place], [place] [address]Result Comment: Outside slides ([id number]; 04/23/2024) from [facility], [place], [place]. A. Lymph node, right axillary, excisional biopsy: - Predominantly reactive lymphoid proliferation with a single focus of atypical YZ78-adgjgxun lymphocytes. - See comment. ABO 05/13/2024 Performed By: #### [id number] ####[facility] LABCLIA [id number] [address] [address] [place] STATES OF [facility] FINAL PERFORMING LABNormLutheran Hospital on above:Order Comment: Specimen Type: FORMALIN-FIXED PARAFFIN-EMBEDDED TISSUE SPECIMENOrdering Facility: [facility] Address: [address] [place] [place], [place] [address]Qrpfes Comment: Diagnostic interpretation performed at: [facility], [address] [facility], Desk [address] [address] CLIA# [id number] Mangle Feeder: TAYLOR Daserformed By: #### [id number] ####[facility] LABCLIA [id number] [facility] CLAIREDESK [id number] [place] [address] [place] OF AMERICAMICROSCOPIC DESCRIPTIONNormLutheran Hospital on above:Order Comment: Specimen Type: FORMALIN-FIXED PARAFFIN- EMBEDDED TISSUE SPECIMENOrdering Facility: [facility] Address: [place], [place] [address]Oycqmb Comment: H&E-stained sections demonstrate fibroadipose tissue and [...] in situ hybridization stains were performed at [facility] Systemon the requested block A2. The large atypical [...] area with atypical large lymphocytes.Performed By: #### [id number] ####[facility] LABCLIA [id number] [place] [address] [place] AMERICAAmbulatory Visit Summaryon 88-37-4000Pfznlzjdhf Visit SummaryAmbulatory Visit Summary NABEEL TRAN :1955 Visit Date:04/30/2024 [...] ELLIS, Moody Aranda Where: [facility] [address] [place] [address] [place] [address]- Medications What How Much When Instructions Unchanged [...] you for choosing us for your care. [facility] Office/Clinic Noteon 46-98-6367Nkgxpth Surgery Office/Clinic NoteGeneral Surgery Office/Clinic Note Chief Complaint post operative follow up HPI Staff 7 day post operative follow up post incisional biopsy right axilla adenopathy completed while inpatient at [facility]. Denies soreness, bleeding or drainage. History [...] No. Yes, 04/30/2024 Family History Heart disease: Mother.[facility] TrumbullComment on above:Result Comment: Electronically Signed By: AIRAM ELLIS, Jassi Nazario.br\Date and Time Signed: 04/30/24 14:51 EDTLon 90-97-1023LHaqqbkpv: [id number] Received: 04/23/24 Status: MERNA Montemayor Num: [id number] Spec Type: Surgical Subm Dr: Jassi Alegria MD FACS Tissues: A Lymph Node - Biopsy (Needle or Incisional) (R AXILLARY LYMPH NODE BX) Procedures: CD45/2, HE/4, Gross/Micro L4, AE1-AE3, BCL-2, BCL-6, CD10, CD20, CD23, CD3, CD30/2, CD5, PAX5/2 Age/ Patient Sex Location Account Attending Physician Nabeel Tran 68/M LABELL [id number] Jassi Alegria MD FACS SPEC NUM: [id number] RECD: 04/23/24 STATUS: MERNA MONTEMAYOR NUM: [id number] RANJITH: 04/23/24-[address]: Jassi Alegria MD FACS ENTERED: 04/23/[address] [facility] [address]: SPEC TYPE: Surgical DEPT: LUANA MOYER ENTERED BY: [id number] RECV BY: [id number] ORDERED: CD45/2, HE/4, Gross/Micro L4, AE1-AE3, BCL-2, BCL-6, CD10, CD20, CD23, CD3, CD30/2, CD5, PAX5/2 ORDERED: CD45/2, HE/4, Gross/Micro L4, AE1-AE3, BCL-2, BCL-6, CD10, CD20, CD23, CD3, CD30/2, CD5, PAX5/2, USS/7 Supplemental Report Addendum 3 Entered: 05/15/24-1014 Supplemental for addended consultation report from [facility] Addendum -Repeat MUM1 immunostain does in fact stain the focal large atypical cells -No change in final diagnosis Addendum Signed (signature on file) Chin-Gama Lauren MD 05/15/24 1014 Addendum 2 Entered: 05/14/24-1672 Supplemental for findings of consultation report from [facility]: -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 Specimen: [id number] Received: 04/23/24-1321 Status: MERNA Montemayor Num: [id number] Spec Type: Surgical Subm Dr: Jassi Alegria MD FACS Tissues: A Lymph Node - Biopsy (Needle or Incisional) (R AXILLARY LYMPH NODE BX) Procedures: CD45/2, HE/4, Gross/Micro L4, AE1-AE3, BCL-2, BCL-6, CD10, CD20, CD23, CD3, CD30/2, CD5, PAX5/2 Patient: Nabeel Tran [place] [id number] (Continued) Specimen: [id number] Received: 04/23/24 (Continued) Supplemental Report (Continued) Signed (signature on file) [facility] Lauren MD 05/01/24 165 Specimen: [id number] Received: 04/23/24 Status: MERNA Montemayor Num: [id number] Spec Type: Surgical Subm Dr: Jassi Alegria MD FACS Tissues: A Lymph Node - Biopsy (Needle or Incisional) (R AXILLARY LYMPH NODE BX) Procedures: CD45/2, HE/4, Gross/Micro L4, AE1-AE3, BCL-2, BCL-6, CD10, CD20, CD23, CD3, CD30/2, CD5, PAX5/2 Patient: Nabeel Tran [id number] (Continued) Specimen: [id number] Received: 04/23/241322 (Continued) Supplemental Report (Continued) lymphocytes -See comment Addendum Signed (signature on file) Kin-Gama Lauren MD 05/14/24 1437 Addendum 1 Entered: 05/07/24 Supplemental for findings of Flow Cytometry report from [facility] -No significant lymphoid immunophenotypic abnormalities detected Addendum Signed (signature on file)Sandra_Steven Lauren MD 05/07/24 0944 Pathological Diagnosis Right axillary lymph node, excisional [...] is no significant lymphoid (more content not included)...NormalH[facility] St[facility] Physician GroupSURGICAL PATHOLOGY REFERENCE LAB CONSULTon [id number] REPORT NormalSt. Elizabeth Hospital on above:Order Comment: Specimen Type: FORMALIN-FIXED PARAFFIN-EMBEDDED TISSUE SPECIMENOrdering Facility: [facility] Address: [address] [place] [id number] Result Comment: Surgical Pathology Report Case: [id number] Authorizing Provider: Kin Lauren MD Collected: 04/18/2024 08:55 AM Ordering Location: [facility] Received: 04/18/2024 08:55 AM [facility] Pathologist: Crystal Mesa MD, PhD Specimen: Slide(s), 2 SLIDES [id number] By: #### [id number] ####[facility] LABCLIA [id number] [place] [address] [place] AMERICACLINICAL HISTORYCONSULT REQUESTEDNormalCWood County Hospital on above:Order Comment: Specimen Type: FORMALIN-FIXED PARAFFIN-EMBEDDED TISSUE SPECIMENOrdering Facility: [facility] Address: [address] [place], [place] [address]Performed By: #### [id number] ####[facility] LABCLIA [id number] [address] STATES OF AMERICADIAGNOSIS COMMENT NormalSt. Elizabeth Hospital on above:Order Comment: Specimen Type: FORMALIN-FIXED PARAFFIN-EMBEDDED TISSUE SPECIMENOrdering Facility: [facility] Address: [address] [place], [place] [address] Result Comment: Thank you for sharing this case in consultation. Per report, flow cytometry was sent on this specimen but is not yet available. The specimen is cut through on an initial deeper level section received. Greater sampling is recommended if feasible, if it is clinically indicated to further characterize this process. Please do not hesitate to contact the Hematopathology Consult Service at [phone] for any questions or if additional follow-up information becomes available.Performed By: #### [id number] ####[facility] LABCLIA [id number] [address] STATES OF [place] FINAL DIAGNOSISNoThe Christ Hospital on above:Order Comment: Specimen Type: FORMALIN-FIXED PARAFFIN-EMBEDDED TISSUE SPECIMENOrdering Facility: [facility] Address: [address] [place], [place] [address] Comment: A. Outside materials received from [facility], [place], [place] (External ID [id number], 04/14/24) Right axillary lymph node, core biopsy: -Extremely limited specimen compatible with malignancy, see comment. [facility] April 18, 2024 Performed By: #### [id number] ####[facility] LABCLIA [id number] [place] [id number] [facility] FINAL PERFORMING LABNoThe [facility] Hospital on above:Order Comment: Specimen Type: FORMALIN-FIXED PARAFFIN-EMBEDDED TISSUE SPECIMENOrdering Facility: [facility] Address: [address] [place], [place] [address] Comment: Diagnostic interpretation performed at: [facility], [facility], [place] [address] CLIA# [id number] Mangle Feeder: TAYLOR Daserformed By: #### [id number] ####[facility] LABIA [id number] [place] [address] [place] AMERICAMICROSCOPIC DESCRIPTIONHistologic sections demonstrate [...] is exhausted to further characterize this limited sample.NormalAvita Health System Galion HospitalComment on above:Order Comment: Specimen Type: FORMALIN-FIXED PARAFFIN-EMBEDDED TISSUE SPECIMENOrdering Facility: [facility] Address: [address] [place], [place] [address]Performed By: #### [id number] ####[facility] LABIA [id number] [place] [address] [place] AMERICALon 46-88-2507TDtcahwwk: [id number] Received: 04/14/241044 Status: MERNA Montemayor Num: [id number] Spec Type: Surgical Subm Dr: Nabeel Strange MD Tissues: A Lymph Node - Biopsy (Needle or Incisional) (R AXILLA LYMPH NODE) B Gross Only (LYMPH NODE) Procedures: HE/2, Gross/Micro L4, Level 1 Gross Age/ Patient Sex Location Account Attending Physician Nabeel Tran 68/M LABELL [id number] Nabeel Strange MD SPEC NUM: [id number] RECD: 04/14/24 STATUS: MERNA MONTEMAYOR NUM: [id number] RANJITH: 04/11/24- [facility] DR: Nabeel Strange MD ENTERED: 04/14/24-[address] [facility] [address]: Gregg Pierce SPEC TYPE: Surgical DEPT: LUANA MOYER ENTERED BY: [id number] RECV BY: [id number] ORDERED: HE/2, Gross/Micro L4, Level 1 Gross ORDERED: HE/2, Gross/Micro L4, Level 1 Gross Supplemental Report Addendum 2 Entered: 04/21/24-1306 Supplemental for findings of consultation report from [facility]: A, -Extremity limited specimen compatible with malignancy, see comment Addendum Signed (signature on file) Chin-Gama Lauren MD 04/21/24 1307 Addendum 1 Entered: 04/18/243036 Supplemental for findings of flow cytometry report from [facility]: -Tests canceled -This test is canceled due to poor sample quality / poor viability Specimen: [id number] Received: 04/14/24 Status: TAMIALakshmi Montemayor Num: [id number] Spec Type: Surgical Subm Dr: Nabeel Strange MD Tissues: A Lymph Node - Biopsy (Needle or Incisional) (R AXILLA LYMPH NODE) B Gross Only (LYMPH NODE) Procedures: HE/2, Gross/Micro L4, Level 1 Gross Patient: Nabeel Tran [id number] (Continued) Specimen: [id number] Received: 04/14/24 (Continued) Supplemental Report (Continued) Signed (signature on file) ChinGagan Lauren MD 04/17/24 1127 Specimen: [id number] Received: 04/14/24 Status: MERNA Montemayor Num: [id number] Spec Type: Surgical Subm Dr: Nabeel Strange MD Tissues: A Lymph Node - Biopsy (Needle or Incisional) (R AXILLA LYMPH NODE) B Gross Only (LYMPH NODE) Procedures: HE/2, Gross/Micro L4, Level 1 Gross Patient: aNbeel Tran [id number] (Continued) Specimen: [id number] Received: 04/14/24-1045 (Continued) Supplemental Report (Continued) Addendum [...] sent to an outside facility. DM Specimen: [id number] Received: 04/14/24 Status: MERNA Montemayor Num: [id number] Spec Type: Surgical Subm Dr: Nabeel Strange MD Tissues: A Lymph Node - Biopsy (Needle or Incisio (more content not included)... NormalHca Florida St. Lucie Hospital Physician GroupInsurance Correspondenceon 01-30-2024 Insurance [id number]#1.00TIFMer[address] Health St[address] Elizabeth Youngstown HospitalConsent for Procedure/Surgeryon 33-35-9724Yxtldsa for Procedure/[id number]#1.00TIFGrant HospitalPhysician Referralon 92-02-7362Bfvmggzby Referral [id number]#1.00[facility] Systemcreenson 67-95-6038Fseaxai [id number]#1.00[facility] HospitalAmbulatory Visit Summaryon 91-48-5414Kjvyuywjfl Visit Summary NABEEL TRAN :1955 Visit Date:01/21/2024 [...] Urology [address], [place] [address]- Medications What When Instructions Unchanged amlodipine (amLODIPine [...] of your urine (ur (more content not included)...[facility] Educationon 98-75-1333Vshkvnx EducationUrology Benign Prostatic Hyperplasia Benign prostatic hyperplasia [...] Follow these instructions at home: ? Take fexi-xit-fasvskf and prescription medicines only as told by [...] from the medicine (more content not included)... [facility] - TrumbullINSULINon 32-51-8635Iqqncwg21.2 uIU/mLNormal 2.6-24.9[facility] HospitalComment on above:Performed By: #### INSULIN #### [facility] [address] [place] [address] Dr. Forrest Lares AUTO DIFFon 46-69-5355NPYJ #0.1 103/ulNormal0.0-0.1The [facility] HospitalComment on above:Performed By: #### PSASC #### [facility] [address] [place] [address] Dr. Forrest LaurenBasophils/100 WBC (Bld)0.8 %Normal0.2-2.0The [facility] Comment on above:Performed By: #### PSASC #### [facility] [address] [place] [address] Dr. Forrest Riojas #0.4 103/ulNormal0.0-0.7The [facility] HospitalComment on above: Performed By: #### PSASC #### [facility] [address] [place] [address] Dr. Forrest Higginsosinophils/100 WBC (Bld)4.8 %Normal0.9-7.0The [facility] Comment on above:Performed By: #### PSASC #### [facility] [address] [place] [address] Dr. Forrest Higginsrythrocyte distribution width (RBC) [Ratio]12.7 %Zvpich95.0-15.0 The [facility] HospitalComment on above:Performed By: #### PSASC #### [facility] [address] [place] [address] Dr. Forrest LaurenHematocrit (Bld) [Volume fraction]48.3 %Zebjlo00.0-54.0The [facility] HospitalComment on above:Performed By: #### PSASC #### [facility] [address] [place] [address] Dr. Forrest LaurenHemoglobin (Bld) [Mass/Vol]16.4 g/pLUefggf57.0-18.0The [facility] HospitalComment on above:Performed By: #### PSASC #### [facility] [address] [place] [address] [address] Forrest Walden #0.05 10e3/ulCritically high0.00-0.03The [facility] Comment on above:Performed By: #### PSASC #### [facility] [address] [place] [address] [address] Forrest Walden %0.6 %Critically high0.0-0.5The [facility] HospitalComment on above:Performed By: #### PSASC #### [facility] [address] [place] [address] [address] Forrest Flowers #2.0 103/ulNormal1.2-3.8The [facility] Community HospitalComment on above:Performed By: #### PSASC #### [facility] [address] [place] [address] Dr. Forrest Wildhocytes/100 WBC (Bld)22.6 %Ktajfj53.5-60.0The [facility] HospitalComment on above:Performed By: #### PSASC #### [facility] [address] [place] [address] Dr. Forrest PalmerUAL DIFF REQNONormalThe [facility] HospitalComment on above: Performed By: #### PSASC #### [facility] [address] [place] [address] Dr. Forrest Prakash (RBC) [Entitic mass]29.8 jiNrvprk23.9-34.0The [facility] HospitalComment on above:Performed By: #### PSASC #### [facility] [address] [place] [address] Dr. Forrest Prakash (RBC) [Mass/Vol]34.0 g/cBStiwqy07.9-35.2The [facility] HospitalComment on above:Performed By: #### PSASC #### [facility] [address] [place] [address] Dr. Forrest Prakash (RBC) [Entitic vol]87.8 hFUkatli01.0-94.0The [facility] HospitalComment on above:Performed By: #### PSASC #### [facility] [address] [place] [address] Dr. Forrest Banks #0.7 103/ulNormal0.3-0.8The [facility] HospitalComment on above:Performed By: #### PSASC #### [facility] [address] [place] [address] Dr. Forrest Centenoocytes/100 WBC (Bld)8.0 %Normal1.7-12.0The [facility] Comment on above:Performed By: #### PSASC #### [facility] [address] [place] [address] Dr. Forrest Dover #5.7 103/ulNormal1.4-6.5The [facility] HospitalComment on above:Performed By: #### PSASC #### [facility] [address] [place] [address] Dr. Forrest Finnutrophils/100 WBC (Bld)63.2 %Uwcpzg90.0-75.0The [facility] HospitalComment on above:Performed By: #### PSASC #### [facility] [address] [place] [address] Dr. Forrest Brown mean volume (Bld) [Entitic vol]9.7 fLNormal9.5-13.5The [facility] HospitalComment on above:Performed By: #### PSASC #### [facility] [address] [place] [address] Dr. Forrest CarterT242 103/igJksonx466-320Yyo [facility] HospitalComment on above: Performed By: #### PSASC #### [facility] [address] [place] [address] Dr. Forrest LaurenRBC5.50 106/ulNormal4.70-6.10The [facility] HospitalComment on above:Performed By: #### PSASC #### [facility] [address] [place] [address] Dr. Forrest LaurenWBC9.0 103/ulNormal4.0-11.0[facility] HospitalComment on above: Performed By: #### PSASC #### [facility] [address] [place] [address] Dr. Forrest LaurenGLYCOHEMOGLOBIN A1Con [id number] RECOMMENDATIONADA THERAPEUTIC TARGET 6.0 - 7.0 ACTION SUGGESTED > 7.0[facility] HospitalComment on above:Performed By: #### A1C #### [facility] [address] [address] [address] Forrest LaurenGlucose [Mass/Vol]194 mg/dLCleveland Clinic [facility] General [facility] HospitalComment on above:Performed By: #### A1C #### [facility] [address] [place] [address] Dr. Forrest LaurenHbA1c (Bld) [Mass fraction]8.4 %Critically high<=6.0[facility] HospitalComment on above:Performed By: #### A1C #### [facility] [address] [place] [address] Dr. Forrest LaurenLIPID PROFILEon [id number]-HDL RATIO NORMSPremier Health Upper Valley Medical CenterComment on above:Result Comment: 3.3 - 4.4 LOW RISK 4.4 - 7.1 AVERAGE RISK 7.1 - 11.0 MODERATE RISK >11.0 HIGH RISKPerformed By: #### PSASC #### [facility] [address] [place] [address] Dr. Forrest LaurenCholesterol [Mass/Vol]117 mg/dLNormal<=200[facility] Comment on above:Performed By: #### PSASC #### [facility] [address] [place] [address] Dr. Forrest LaurenCholesterol in HDL [Mass/Vol]43 mg/dLCleveland Clinic [facility] Comment on above:Performed By: #### PSASC #### [facility] [address] [place] [address] Dr. Forrest Schmitzesterol in LDL [Mass/Vol]45.6 mg/dLCleveland Clinic [facility] HospitalComment on above:Performed By: #### PSASC #### [facility] [address] [address] [address] Forrest LaurenCholesterol.total/Cholesterol in HDL [Mass ratio]2.7 {ratio} NormalThe [facility] HospitalComment on above:Performed By: #### PSASC #### [facility] [address] [address] [address] Forrest KeenL NORMAL> or = 60 mg/dl - LOW CARDIOVASCULAR RISK <40 mg/dl - HIGH CARDIOVASCULAR RISKCleveland Clinic [facility] General [facility] HospitalComment on above:Performed By: #### PSASC #### [facility] [address] [address] [address] Forrest LaurenLDL CALC NORMALSEE BELOWCleveland Clinic [facility] General [facility] HospitalComment on above:Result Comment: <100 mg/dl OPTIMAL 100 - 129 mg/dl NEAR OR ABOVE OPTIMAL 130 - 159 mg/dl BORDERLINE HIGH 160 - 189 mg/dl HIGH >190 mg/dl VERY HIGH Performed By: #### PSASC #### [facility] [address] [address] [address] Forrest LaurenTriglyceride [Mass/Vol]142 mg/dLNormal<=150The [facility] Comment on above:Performed By: #### PSASC #### [facility] [address] [place] [address] Dr. Forrest LaurenVLDL CALC28.4 mg/dLNormZanesville City HospitalComment on above: Performed By: #### PSASC #### [facility] [address] [address] [address] Forrest LaurenPROF 14(COMP METB)on [id number] [Mass/Vol]4.1 g/dLNormal 3.5-5.0The [facility] HospitalComment on above:Performed By: #### PSASC #### [facility] [address] [place] [address] Dr. Forrest LaurenAlbumin/Globulin [Mass ratio]1.2 {ratio}NormalThe [facility] HospitalComment on above:Performed By: #### PSASC #### [facility] [address] [address] [address] Forrest AguilarP [Catalytic activity/Vol]82 U/KNppxux11-982Gfy [facility] HospitalComment on above:Performed By: #### PSASC #### [facility] [address] [address] [address] Forrest AguilarT [Catalytic activity/Vol]38 U/PFuemjs69-49Psd [facility] HospitalComment on above:Performed By: #### PSASC #### [facility] [address] [address] [address] Forrest Torreon gap [Moles/Vol]12.7 mmol/LNormalThe [facility] Comment on above:Performed By: #### PSASC #### [facility] [address] [place] [address] Dr. Forrest LaurenAST [Catalytic activity/Vol]18 U/DPsakqg44-36Uab [facility] HospitalComment on above:Performed By: #### PSASC #### [facility] [address] [place] [address] Dr. Forrest LaurenBilirubin [Mass/Vol]1.2 mg/dLNormal0.2-1.3The [facility] Comment on above:Performed By: #### PSASC #### [facility] [address] [place] [address] Dr. Forrest LaurenCalcium [Mass/Vol]9.7 mg/dLNormal8.4-10.2The [facility] Comment on above:Performed By: #### PSASC #### [facility] [address] [place] [address] Dr. Forrest LaurenChloride [Moles/Vol]102 mmol/GBridrm94-496Auy [facility] Comment on above:Performed By: #### PSASC #### [facility] [address] [address] [address] Forrest LaurenCO2 [Moles/Vol]30.6 mmol/LCritically high22.0-30.0The [facility] HospitalComment on above:Performed By: #### PSASC #### [facility] [address] [address] [address] Forrest LaurenCreatinine [Mass/Vol]1.09 mg/dLNormal0.66-1.25The [facility] HospitalComment on above:Performed By: #### PSASC #### [facility] [address] [address] [address] Forrest HigginsGFR-AF [place] CITIZ[place]>60Normal>=60The [facility] HospitalComment on above:Performed By: #### PSASC #### [facility] [address] [address] [address] Forrest HigginsGFR-NON AF [place]IZ[place]>60Normal>=60The [facility] HospitalComment on above:Performed By: #### PSASC #### [facility] [address] [place] [address] Dr. Forrest LaurenGlobulin (S) [Mass/Vol]3.4 g/dLNormalThe [facility] HospitalComment on above:Performed By: #### PSASC #### [facility] [address] [place] [address] Dr. Forrest LaurenGlucose [Mass/Vol]238 mg/dLCritically ftpy97-362JbqAvita Health System [facility] HospitalComment on above:Performed By: #### PSASC #### [facility] [address] [place] [address] Dr. Forrest LaurenPotassium [Moles/Vol]4.3 mmol/LNormal3.4-5.0[facility] Comment on above:Performed By: #### PSASC #### [facility] [address] [place] [address] Dr. Forrest LaurenProtein [Mass/Vol]7.5 g/dLNormal6.1-8.2The [facility] Comment on above:Performed By: #### PSASC #### [facility] [address] [place] [address] Dr. Forrest LaurenSodium [Moles/Vol]141 mmol/SRbqmje004-232Uds [facility] Comment on above:Performed By: #### PSASC #### [facility] [address] [place] [address] Dr. Forrest LaurenUrea nitrogen [Mass/Vol]20.0 mg/dLNormal9.0-20.0The [facility] HospitalComment on above:Performed By: #### PSASC #### [facility] [address] [place] [address] Dr. Forrest LaurenUrea nitrogen/Creatinine [Mass ratio]18.3 mg/mgNormalThe [facility] HospitalComment on above:Performed By: #### PSASC #### [facility] [address] [place] [address] Dr. Forrest LaurenURIC ACID SERUMon [id number] [Mass/Vol]4.8 mg/dLNormal 3.5-8.5The [facility] HospitalComment on above:Performed By: #### PSASC #### [facility] [address] [place] [address] Dr. Forrest LaurenCovid-19 PCR ([facility])on 10-23-2681Tixcwj TypeTest performed using RT-PCR from a nasopharyngeal collected specimen.NormalThe [facility] Comment on above:Performed By: #### PSASC #### [facility] [address] [place] [address] Dr. Forrest Machuca-CoV-2 (COVID-19) RNA MERA+probe Ql (Unsp spec)Detected AbnormalNOT DETECTEDThe [facility] HospitalComment on above:Result Comment: This test is not yet approved or cleared by the [place] FDA. When there are no FDA-approved or cleared tests available, and other criteria are met, FDA can make tests available under an emergency access mechanism called an Emergency Use Authorization (EUA). The EUA for this test is supported by the [employer] of Health and Human Service's (HHS's) declaration [...] longer be used).Performed By: #### PSASC #### [facility] [address] [place] [address] Dr. Forrest LaurenMANZANOLA OF CARE GLUCOSEon [id number] [Mass/Vol]255 mg/dL Critically qlzj60-077KxqAvita Health System Galion HospitalComment on above:Performed By: #### POCGLUC #### [facility] [address] [place] [address] Matias KarenXR CHEST 1 Von [id number] CHEST 1 VEXAM: XR CHEST 1 V [...] Electronically authenticated by: AMARIS WALKER Date: 2020-12-06 22:04NormZanesville City HospitalINSULINon 89-57-5656Marndqg01.9 uIU/mLNormal2.6-24.9The [facility] HospitalComment on above:Performed By: #### PSASC #### [facility] [address] [place] [address] Dr. Forrest LaurenGOOD [facility] AUTO DIFFon [id number] #0.1 103/ulNormal0.0-0.1The [facility] HospitalComment on above:Performed By: #### CBC #### [facility] [address] [place] [address] Matias KarenBasophils/100 WBC (Bld)0.6 %Normal0.2-2.0The [facility] Comment on above:Performed By: #### CBC #### [facility] [address] [place] [address] Matias KarenEO #0.4 103/ulNormal0.0-0.7The [facility] HospitalComment on above: Performed By: #### CBC #### [facility] [address] [place] [address] Matias KarenEosinophils/100 WBC (Bld)4.2 %Normal0.9-7.0The [facility] Comment on above:Performed By: #### CBC #### [facility] [address] [place] [address] Matias KarenErythrocyte distribution width (RBC) [Ratio]13.1 %Scbihz89.0-15.0The [facility] HospitalComment on above:Performed By: #### CBC #### [facility] [address] [place] [address] Matias KarenHematocrit (Bld) [Volume fraction]50.2 %Qvdwnx35.0-54.0The [facility] HospitalComment on above:Performed By: #### CBC #### [facility] [address] [place] [address] Matias KarenHemoglobin (Bld) [Mass/Vol]16.6 g/xTDaxxzr49.0-18.0The [facility] HospitalComment on above:Performed By: #### CBC #### [facility] [address] [place] [address] Matias KarenIG #0.05 10e3/ulCritically high0.00-0.03The [facility] HospitalComment on above:Performed By: #### CBC #### [facility] [address] [place] [address] Matias KarenIG %0.6 %Critically high0.0-0.5The [facility] HospitalComment on above:Performed By: #### CBC #### [facility] [address] [place] [address] Matias KarenLYMPH #1.9 103/ulNormal1.2-3.8The [facility] HospitalComment on above: Performed By: #### CBC #### [facility] [address] [place] [address] Matias KarenLymphocytes/100 WBC (Bld)22.2 %Mojiup15.5-60.0The [facility] Comment on above:Performed By: #### CBC #### [facility] [address] [place] [address] Matias KarenMANUAL DIFF REQNONormalThe [facility] HospitalComment on above: Performed By: #### CBC #### [facility] [address] [place] [address] Matias RivasH (RBC) [Entitic mass]29.4 wsFwockq95.9-34.0[facility] Comment on above:Performed By: #### CBC #### [facility] [address] [place] [address] Matias RivasMCHC (RBC) [Mass/Vol]33.1 g/jINddiqn76.9-35.2[facility] Comment on above:Performed By: #### CBC #### [facility] [address] [place] [address] Matias RivasMCV (RBC) [Entitic vol]88.8 jKZcesnz76.0-94.0[facility] Comment on above:Performed By: #### CBC #### [facility] [address] [place] [address] Matias KarenMONO #0.7 103/ulNormal0.3-0.8The [facility] HospitalComment on above: Performed By: #### CBC #### [facility] [address] [place] [address] Matias KarenMonocytes/100 WBC (Bld)7.7 %Normal1.7-12.0[facility] Comment on above:Performed By: #### CBC #### [facility] [address] [place] [address] Matias RodasenNEUT #5.7 103/ulNormal1.4-6.5The [facility] HospitalComment on above: Performed By: #### CBC #### [facility] [address] [place] [address] Matias KarenNeutrophils/100 WBC (Bld)64.7 %Pgcfpg81.0-75.0[facility] Comment on above:Performed By: #### CBC #### [facility] [address] [place] [address] Matias KarenPlatelet mean volume (Bld) [Entitic vol]10.4 fLNormal9.5-13.5The [facility] HospitalComment on above:Performed By: #### CBC #### [facility] [address] [place] [address] Matias RrxshIAK286 103/ksNigbqn951-106Tan [facility] HospitalComosf healthcare [facility] on above: Performed By: #### CBC #### [facility] [address] [place] [address] Matias KarenRBC5.65 106/ulNormal4.70-6.10The [facility] HospitalComment on above: Performed By: #### CBC #### [facility] [address] [place] [address] Matias RodasenWBC8.7 103/ulNormal4.0-11.0The [facility] HospitalComment on above: Performed By: #### CBC #### [facility] [address] [place] [address] Matias RodasenFREE THYROXINE INDEX T7on 61-29-7957EZT5.11NoPremier Health Miami Valley Hospital SouthComment on above:Performed By: #### URIC, CMP, T7, PSASC, TSH, LIPID #### [facility] [address] [place] [address] Matias RodasenT3U34.0 %Ooqatj93.5-40.5ThRegency Hospital Cleveland WestComosf healthcare st[facility] on above: Performed By: #### URIC, CMP, T7, PSASC, TSH, LIPID #### [facility] [address] [place] [address] Matias KarenT4 [Mass/Vol]6.20 ug/dLNormal5.53-11.00The [facility] HospitalComosf [facility] on above:Performed By: #### URIC, CMP, T7, PSASC, TSH, LIPID #### [facility] [address] [place] [address] Matias KarenGLYCOHEMOGLOBIN A1Con [id number] RECOMMENDATIONADA THERAPEUTIC TARGET 6.0 - 7.0 ACTION SUGGESTED > 7.0NoPremier Health Miami Valley Hospital SouthComment on above:Performed By: #### A1C #### [facility] [address] [address] Matias KarenGlucose [Mass/Vol]266 mg/dLNoPremier Health Miami Valley Hospital SouthComment on above:Performed By: #### A1C #### [facility] [address] [address] Matias FhnesMkN4j (Bld) [Mass fraction]10.9 %Critically high<=6.0The [facility] HospitalComment on above:Performed By: #### A1C #### [facility] [address] [place] [address] Matias KarenLIPID PROFILEon [id number]-HDL RATIO NORMSEE Wadsworth-Rittman HospitalComment on above:Result Comment: 3.3 - 4.4 LOW RISK 4.4 - 7.1 AVERAGE RISK 7.1 - 11.0 MODERATE RISK >11.0 HIGH RISKPerformed By: #### PSASC #### [facility] [address] [place] [address] Dr. Forrest Schmitzesterol [Mass/Vol]110 mg/dLNormal<=200[facility] Comment on above:Performed By: #### PSASC #### [facility] [address] [place] [address] Dr. Forrest Schmitzesterol in HDL [Mass/Vol]36 mg/dLCleveland Clinic [facility] Comment on above:Performed By: #### PSASC #### [facility] [address] [place] [address] Dr. Forrest Schmitzesterol in LDL [Mass/Vol]36.2 mg/dLCleveland Clinic [facility] HospitalComment on above:Performed By: #### PSASC #### [facility] [address] [place] [address] Dr. Forrest Thakur.total/Cholesterol in HDL [Mass ratio]3.1 {ratio} NormalAvita Health System Galion HospitalComment on above:Performed By: #### PSASC #### [facility] [address] [place] [address] Dr. Forrest Fields NORMAL> or = 60 mg/dl - LOW CARDIOVASCULAR RISK <40 mg/dl - HIGH CARDIOVASCULAR RISKCleveland Clinic Ak[facility] General Lodi HospitalComment on above:Performed By: #### PSASC #### [facility] [address] [place] [address] Dr. Forrest LaurenLDL CALC NORMALSEE BELOWCleveland Clinic [facility] HospitalComment on above:Result Comment: <100 mg/dl OPTIMAL 100 - 129 mg/dl NEAR OR ABOVE OPTIMAL 130 - 159 mg/dl BORDERLINE HIGH 160 - 189 mg/dl HIGH >190 mg/dl VERY HIGH Performed By: #### PSASC #### [facility] [address] [place] [address] Dr. Forrest LaurenTriglyceride [Mass/Vol]189 mg/dLCritically high<=150[facility] HospitalComment on above:Performed By: #### PSASC #### [facility] [address] [place] [address] Dr. Forrest LaurenVLDL CALC37.8 mg/dLNoPremier Health Miami Valley Hospital SouthComment on above: Performed By: #### PSASC #### [facility] [address] [place] [address] Dr. Forrest LaurenPROF 14(COMP METB)on [id number] [Mass/Vol]4.1 g/dLNormal 3.5-5.0[facility] HospitalComment on above:Performed By: #### URIC, CMP, T7, PSASC, TSH, LIPID #### [facility] [address] [place] [address] Matias KarenAlbumin/Globulin [Mass ratio]1.2 {ratio}NormalAvita Health System [facility] Hospital Comment on above:Performed By: #### URIC, CMP, T7, PSASC, TSH, LIPID #### [facility] [address] [place] [address] Matias KarenALP [Catalytic activity/Vol]80 U/HMjxtxf48-071YeoAvita Health System [facility] Hospital Comment on above:Performed By: #### URIC, CMP, T7, PSASC, TSH, LIPID #### [facility] [address] [place] [address] Matias KarenALT [Catalytic activity/Vol]42 U/KTglunf93-29Wdb [facility] Comment on above:Performed By: #### URIC, CMP, T7, PSASC, TSH, LIPID #### [facility] [address] [place] [address] Matias KarenAnion gap [Moles/Vol]12.3 mmol/LNormalAvita Health System Galion HospitalComment on above:Performed By: #### URIC, CMP, T7, PSASC, TSH, LIPID #### [facility] [address] [address] Matias KarenAST [Catalytic activity/Vol]24 U/DCbedjp01-84Irq [facility] Comment on above:Performed By: #### URIC, CMP, T7, PSASC, TSH, LIPID #### [facility] [address] [place] [address] Matias KarenBilirubin [Mass/Vol]1.3 mg/dLNormal0.2-1.3TBlanchard Valley Health [facility] Comment on above:Performed By: #### URIC, CMP, T7, PSASC, TSH, LIPID #### [facility] [address] [place] [address] Matias KarenCalcium [Mass/Vol]9.3 mg/dLNormal8.4-10.2[facility] Comment on above:Performed By: #### URIC, CMP, T7, PSASC, TSH, LIPID #### [facility] [address] [place] [address] Matias KarenChloride [Moles/Vol]103 mmol/YLhzsar95-000Gve [facility] Comment on above:Performed By: #### URIC, CMP, T7, PSASC, TSH, LIPID #### [facility] [address] [place] [address] Matias KarenCO2 [Moles/Vol]30.0 mmol/TCvhvzd81.0-30.0The [facility] Comment on above:Performed By: #### URIC, CMP, T7, PSASC, TSH, LIPID #### [facility] [address] [place] [address] Matias KarenCreatinine [Mass/Vol]1.20 mg/dLNormal0.66-1.25The [facility] Comment on above:Performed By: #### URIC, CMP, T7, PSASC, TSH, LIPID #### [facility] [address] [address] Matias KarenEGFR-AF [place] CITIZEN>60Normal>=60The [facility] HospitalComment on above: Performed By: #### URIC, CMP, T7, PSASC, TSH, LIPID #### [facility] [address] [address] Matias KarenEGFR-NON AF [place] CITIZEN>60Normal>=60The [facility] HospitalComment on above:Performed By: #### URIC, CMP, T7, PSASC, TSH, LIPID #### [facility] [address] [place] [address] Matias KarenGlobulin (S) [Mass/Vol]3.5 g/dLNormalThe [facility] HospitalComment on above:Performed By: #### URIC, CMP, T7, PSASC, TSH, LIPID #### [facility] [address] [place] [address] Matias KarenGlucose [Mass/Vol]269 mg/dLCritically ocxc93-613Ujq [facility] HospitalComment on above:Performed By: #### URIC, CMP, T7, PSASC, TSH, LIPID #### [facility] [address] [place] [address] Matias KarenPotassium [Moles/Vol]4.3 mmol/LNormal3.4-5.0The [facility] Comment on above:Performed By: #### URIC, CMP, T7, PSASC, TSH, LIPID #### [facility] [address] [place] [address] Matias KarenProtein [Mass/Vol]7.6 g/dLNormal6.1-8.2The [facility] HospitalComment on above:Performed By: #### URIC, CMP, T7, PSASC, TSH, LIPID #### [facility] [address] [place] [address] Matias KarenSodium [Moles/Vol]141 mmol/JVmdmom724-550Mrt [facility] Comment on above:Performed By: #### URIC, CMP, T7, PSASC, TSH, LIPID #### [facility] [address] [place] [address] Matias KarenUrea nitrogen [Mass/Vol]17.0 mg/dLNormal9.0-20.0The [facility] HospitalComment on above:Performed By: #### URIC, CMP, T7, PSASC, TSH, LIPID #### [facility] [address] [place] [address] Matias KarenUrea nitrogen/Creatinine [Mass ratio]14.2 mg/mgNormalThe [facility] HospitalComment on above:Performed By: #### URIC, CMP, T7, PSASC, TSH, LIPID #### [facility] [address] [place] [address] Matias KarenTSHon 00-39-9781RMD5.574 uIU/mLNormal0.470-4.680The [facility] HospitalComment on above:Performed By: #### PSASC #### [facility] [address] [place] [address] Dr. Forrest Levy [facility] HospitalComment on above: Result Comment: <0.34 UIU/ml HYPERTHYROID 0.34-5.60 UIU/ml EUTHYROID >5.60 UIU/ml HYPOTHYROIDPerformed By: #### PSASC #### [facility] [address] [place] [address] Dr. Forrest LaurenURIC ACID SERUMon [id number] [Mass/Vol]4.8 mg/dLNormal 3.5-8.5The [facility] HospitalComment on above:Performed By: #### PSASC #### [facility] [address] [place] [address] Dr. Forrest LaurenCardiovascular Lab Reporton [id number] Lab Report [facility] Patient Name: [facility] MR #: [id number] Physician: Jerod Miller M.D.Medicine Service Date: 2017Division of Birthdate: 6Cardiology Room #: CCAdult CardiovascularE[id number], [place] [address]Zgevj Fax Cardiovascular Laboratory ReportINDICATION: Nabeel Tran is [...] the right internal jugular vein and a 6-Trinidadian x 11cm sheath was placed. A 6-Trinidadian Griffith catheter was used for right heartcatheterization with measurement of pressures and calculation of cardiacoutput using the estimated Luke method. Griffith catheter was removed.Using ultrasound guidance and micropuncture technique, access was obtainedin the left radial artery and a 6-Trinidadian x 11 cm Hydrophilic sheath wasadvanced. Verapamil [...] 08/02/2017/02:42 P/Jerod Staton M.D.Date Trans: 08/03/2017 11:29 A/chalinooDN_JN:[id number]: Neville Mata D.O. [address] [place] [address] Vital Signs Date TimeVital SignValuePerforming GqijmqoztNrnpbtvo50-06-1159 10:31-0400Body mass index (BMI) [Ratio]23.51 kg/m2Rg Winston MD Work Phone: [facility]05-15-2025 10:310400Body .2 kgRg Winston MD Work Phone: [facility]05-15-2025 10:31-0400Diastolic blood zogmyzxd19 mm[Hg]Rg Winston MD Work Phone: [facility]05-15-2025 10:31-0400Heart rate59 /min Rg Winston MD Work Phone: [facility]05-15-2025 10:31-0400Respiratory rate 18 /minSdebbie Winston MD Work Phone: [facility]05-15-2025 10:31-9783PnH8% (BldA) [Mass fraction]98 %Rg Winston MD Work Phone: [facility]05-15-2025 10:31-0400Systolic blood iorcutiq990 mm[Hg]Rg Winston MD Work Phone: [facility]04-10-2025 10:00-0400Body mass index (BMI) [Ratio]22.98 kg/m2Rg Winston MD Work Phone: [facility]04-10-2025 10:00-0400Body temperature 97.3 [degF]Rg Winston MD Work Phone: [facility]04-10-2025 10:00-0400Body duojgd44.3 kgRg Winston MD Work Phone: [facility]04-10-2025 10:00-0400Diastolic blood gbvbmiel38 mm[Hg]Rg Winston MD Work Phone: [facility]04-10-2025 10:00-0400Heart rate66 /min Rg Winston MD Work Phone: [facility]04-10-2025 10:00-0400Respiratory rate 16 /minSdebbie Winston MD Work Phone: [facility]04-10-2025 10:00-5160CjN3% (BldA) [Mass fraction]99 %Rg Winston MD Work Phone: [facility]04-10-2025 10:00-0400Systolic blood cysjtftx822 mm[Hg]Rg Winston MD Work Phone: [facility]04-02-2025 09:59-0400Body mass index (BMI) [Ratio]23.07 kg/m2Rg Winston MD Work Phone: [facility]04-02-2025 09:59-0400Body temperature 97.9 [degF]Rg Winston MD Work Phone: [facility]04-02-2025 09:59-0400Body iiapct99.6 kgRg Winston MD Work Phone: [facility]04-02-2025 09:59-0400Diastolic blood vcwpwyxe26 mm[Hg]Rg Winston MD Work Phone: [facility]04-02-2025 09:59-0400Heart rate65 /min Rg Winston MD Work Phone: [facility]04-02-2025 09:59-0400Respiratory rate 16 /minSdebbie Winston MD Work Phone: [facility]04-02-2025 09:59-8851SzD3% (BldA) [Mass fraction]97 %Rg Winston MD Work Phone: [facility]04-02-2025 09:59-0400Systolic blood bjkgxuww033 mm[Hg]Rg Winston MD Work Phone: [facility]03-26-2025 10:23-0400Body mass index (BMI) [Ratio]23.26 kg/m2Rg Winston MD Work Phone: [facility]03-26-2025 10:23-0400Body temperature 97.5 [degF]Rg Winston MD Work Phone: [facility]03-26-2025 10:23-0400Body chbtez49.3 kgRg Winston MD Work Phone: [address] [address]-26-2025 10:23-0400Diastolic blood faqlkedw51 mm[Hg]Rg Winston MD Work Phone: [facility]03-26-2025 10:23-0400Heart rate64 /min Rg Winston MD Work Phone: 1(419)626-[address] [place], [place] [address]303-26-2025 10:23-0400Respiratory rate 16 /minSdebbie Winston MD Work Phone: [facility]03-26-2025 10:23-8725WaW9% (BldA) [Mass fraction]99 %Rg Winston MD Work Phone: [facility]03-26-2025 10:23-0400Systolic blood wgtklitf09 mm[Hg]Rg Winston MD Work Phone: 1(128)981-[address] [place], [place] [address]303-18-2025 13:45-0400Body mass index (BMI) [Ratio]23.54 kg/m2Rg Winston MD Work Phone: 1(387)952-[address] [place] [address]-18-2025 13:45-0400Body temperature 97.81 [degF]Rg Winston MD Work Phone: 1(305)[address] [place] [address]-18-2025 13:45-0400Body aljyyf38.3 kgRg Winston MD Work Phone: 1(411)926-[address] [place] [address]-18-2025 13:45-0400Diastolic blood cmqulkal49 mm[Hg]Rg Winston MD Work Phone: 1(058)811-[address] [place], [place] [address]-18-2025 13:45-0400Heart rate61 /min Rg Winston MD Work Phone: 1(339)544-[address] [place] [address]-18-2025 13:45-0400Respiratory rate 18 /minSdebbie Winston MD Work Phone: 1([phone] [address]-18-2025 13:45-8925RjP4% (BldA) [Mass fraction]95 %Rg Winston MD Work Phone: [phone]03-18-2025 13:45-0400Systolic blood pflisrtr623 mm[Hg]Rg Winston MD Work Phone: [facility]02-20-2025 09:12-0500Body yqwuwr641.2 cmSdebbie Winston MD Work Phone: 1(218)829-[address] [place], [place] [address]-20-2025 09:12-0500Body mass index (BMI) [Ratio]23.85 kg/m2Rg Winston MD Work Phone: [facility]02-20-2025 09:12-0500Body temperature 96.8 [degF]Rg Winston MD Work Phone: [facility]02-20-2025 09:12-0500Body okhiqn41.4 kgRg Winston MD Work Phone: [facility]02-20-2025 09:12-0500Diastolic blood iqcgcspc00 mm[Hg]Rg Winston MD Work Phone: [facility]02-20-2025 09:12-0500Heart rate62 /min Rg Winston MD Work Phone: [facility]02-20-2025 09:12-0500Respiratory rate 16 /minSdebbie Winston MD Work Phone: [facility]02-20-2025 09:12-1180BtF5% (BldA) [Mass fraction]98 %Rg Winston MD Work Phone: [facility]02-20-2025 09:12-0500Systolic blood oninhven682 mm[Hg]Rg Winston MD Work Phone: [facility]01-02-2025 10:05-0500Body mass index (BMI) [Ratio]23.57 kg/y2Lkjwnzubsgb Deepa DO Work Phone: [facility] CareJukyoykryj95-58-3829 10:05-0500Body .28 kgChristopher Deepa DO Work Phone: [facility] CenterJbkggfqqxe20-18-1264 10:05-0500Diastolic blood ekbmiwgy79 mm[Hg]Christtorito Arenas DO Work Phone: no[facility] CenterLvxhprubxh46-49-7509 10:05-0500Heart rate74 /min Christtorito Arenas DO Work Phone: [facility] CareNijigswnax02-04-7889 10:05-6130AtJ4% (BldA) [Mass fraction]96 %Christtorito Arenas DO Work Phone: [facility] CareKrmcidomxn70-16-8782 10:05-0500Systolic blood sxmuwxwe98 mm[Hg]Christopher Deepa DO Work Phone: [facility] CareXftvxiepun63-17-2613 09:12-0500Body ziommt954 cm Regis Ibarra MD Work Phone: [facility]12-24-2024 09:12-0500Body mass index (BMI) [Ratio]22.7 kg/u0PedrqRegis Ibarra MD Work Phone: [facility]12-24-2024 09:12-0500Body psdfujpnprk39.3 [degF]Regis Ibarra MD Work Phone: [facility]12-24-2024 09:12-0500Body enygll72.2 kgRegis Ibarra MD Work Phone: [facility]11-12-2024 12:25-0500Body xwaapk797 cmChristtorito Deepa DO Work Phone: [facility] CareMwvsnklnvn08-94-5198 12:25-0500Body mass index (BMI) [Ratio]20.29 kg/e9Loagyvcpkey Hassett DO Work Phone: [facility] CareIxpjbypldr11-99-1233 12:25-0500Body uhdhdm13.67 kgChristopher Arenas DO Work Phone: [facility] CareTqwksitqti72-74-7661 12:25-0500Diastolic blood hmkqegpt75 mm[Hg]Faviantorito Grahamett DO Work Phone: [phone]-[facility]Brian [facility] [address]Mceuwrhdlz03-28-2780 12:25-0500Heart rate98 /min Elaner Deepa DO Work Phone: [facility] CareVizxmsfwyc43-85-0005 12:25-2913KgG9% (BldA) [Mass fraction]93 %Lucas Arenas DO Work Phone: [facility] CareOimtugdbsu16-93-3313 12:25-0500Systolic blood ipguxjfi108 mm[Hg]Lucas Arenas DO Work Phone: [facility] CareYhaudvsuuf51-49-6911 09:54-0400Diastolic blood djynieib62 mm[Hg]Jassi NILL [phone]-[facility]obvxMer[facility] [place] 06-03-2024 09:54-0400Heart gour387 /minMichael NILL [phone]-BmjsaSt. [facility] 06-03-2024 09:54-0400Respiratory rate16 /minMichael NILL [phone]-EgmlxSt. Charles Hospital 06-03-2024 09:54-0400Systolic blood xanulbfo268 mm[Hg]Jassi NILL [phone]-SanijSt. Charles Hospital 05-29-2024 06:42-0400Body yqnxti295.5 cmDO González Nano Work Phone: [facility]10-24-2024 06:42-0400 Body brfukw81.47 kgDO [employer] Work Phone: [facility]06-17-2024 11:44-0400 Blood Pressure LocationPatrick POP [facility]06-17-2024 11:44-0400Diastolic blood mm[Hg]Moody POP [facility]06-17-2024 11:44-0400Heart rate70 /minPatrick POP [facility]06-17-2024 11:44-0400Respiratory rate16 /minPatrick POP [facility]06-17-2024 11:440400Systolic blood zxkmiwdh650 mm[Hg]Moody POP [facility] Encounters Encounter DateEncounter TypeCare ProviderFacilityStart: 03-23-2025 End: 39-19-5431yqclttkdamDTXILO [facility] Start: 12-18-2024 End: 78-53-4719Vgpizxg encounter procedureSdebbie Winston MD Work Phone: Radiation OncologyComment on above:Hodgkin lymphoma, unspecified Hodgkin lymphoma type, unspecified body region (HCC) (Primary Dx) Start: 12-18-2024 End: 93-88-3727nnjefwmdecRVEN RAJANFacility:[facility]: 12-02-2024 End: 81-69-4263Pcdzakaih encounterSdebbie Winston MD Work Phone: Radiation OncologyStart: 11-17-2024 End: 03-13-9930rvmqyulpwtULGO RAJANFacility:[facility]: 11-14-2024 End: 07-00-5171golzsnnurmXmkmxzlwyh Karuna RD Work Phone: Nutrition TherapyStart: 11-14-2024 End: 12-51-6686Lxoandhkr therapyJacqueline Karuna RD Work Phone: Nutrition TherapyComment on above:Nutrition Telephone (No answer/)Start: 11-14-2024 End: 07-88-7851inkspxzhynEYCU RAJANFacility:[facility]: 11-13-2024 End: 77-54-1529Bmjkjgs encounter procedureSdebbie Winston MD Work Phone: Radiation OncologyComment on above:Hodgkin lymphoma, unspecified Hodgkin lymphoma type, unspecified body region (HCC) (Primary Dx) Start: 11-13-2024 End: 79-47-9119qcdhqapzqvULIG RAJANFacility:[facility]: 11-12-2024 End: 15-87-1167zaxgjnglqlJPCJ RAJANFacility:[facility]: 11-11-2024 End: 26-90-4082zpjgabjicuCXJO CATRACHITOFacility:[facility]art: 11-10-2024 End: 71-11-5290ksogkthaceQVUS CATRACHITOFacility:[facility]art: 11-07-2024 End: 83-24-2337lvtbgfjyppKDQU RAJANFacility:[facility]: 11-06-2024 End: 77-29-2376kthcqxyxgcPVCU RAJANFacility:[facility]: 11-05-2024 End: 52-14-6970Gkwbbos encounter procedureSdebbie Winston MD Work Phone: [facility] Centeriation OncologyComment on above:Hodgkin lymphoma, unspecified Hodgkin lymphoma type, unspecified body region (HCC) (Primary Dx) Start: 11-05-2024 End: 72-92-8879ajqhpvbgszJUTY RAJANFacility:[facility]: 11-04-2024 End: 50-21-5023fvhzcqgkklLBRU RAJANFacility:[facility]: 11-03-2024 End: 79-05-5509bdxyvixgxsLAIN RAJANFacility:[facility]: 10-31-2024 End: 28-78-6487ovqvdqocgpUXTF RAJANFacility:[facility]: 10-30-2024 End: 70-86-0591zkrqdjwubgYLVU RAJANFacility:[facility]: 10-29-2024 End: 13-69-2764Xurcvrk encounter procedureSdebbie Winston MD Work Phone: Radiation OncologyComment on above:Hodgkin lymphoma, unspecified Hodgkin lymphoma type, unspecified body region (HCC) (Primary Dx) Start: 10-29-2024 End: 04-53-7527qvsqdooytwGWDA RAJANFacility:[facility]: 10-28-2024 End: 29-11-3679usrtbukjbsYSBL RAJANFacility:[facility]: 10-27-2024 End: 55-58-0730dqllpvyqzmBNLG RAJANFacility:[facility]: 10-24-2024 End: 75-92-0406zqzlqlketzARMA RAJANFacility:[facility]: 10-23-2024 End: 60-40-7953sximzpmsfkPHHX RAJANFacility:[facility]: 10-22-2024 End: 69-29-4284dnkshcgkqwYBAE RAJANFacility:[facility]: 10-21-2024 End: 17-38-8400imeedbrqnoNVYI RAJANcility:[facility] HospitalStart: 10-21-2024 End: 32-36-8374Jsmdlrj encounter procedureSdebbie Winston MD Work Phone: Radiation OncologyComment on above:Hodgkin lymphoma, unspecified Hodgkin lymphoma type, unspecified body region (HCC) (Primary Dx) Start: 10-08-2024 End: 44-46-3705Xylcbpo encounter procedureCcf ProviderPeoples Hospital DepartmentStart: 10-07-2024 End: 84-64-3723Jpnidal encounter procedureSdebbie Winston MD Work Phone: Radiation OncologyStart: 10-07-2024 End: 96-96-6935Puxjwnuxv Oncology NoteSdebbie Winston MD Work Phone: Radiation OncologyComment on above:Simulation Note Treatment PlanningStart: 10-07-2024 End: 63-41-3979hmpforvlwbTJCF RAJANFacility:[facility]: 10-07-2024 End: 20-55-8359Agnxuvp evaluation of patient and reportNurse Magalie Buckley Work Phone: Radiation OncologyComment on above:Hodgkin lymphoma, unspecified Hodgkin lymphoma type, unspecified body region (HCC) (Primary Dx) Start: 09-26-2024 End: 45-66-5757srbsuphvbeAzkcjmsnwc Michaelis RD Work Phone: Nutrition TherapyStart: 09-26-2024 End: 42-49-1564Hvxgyosic therapyMargo Schumacher RD Work Phone: Nutrition TherapyComment on above:Nutrition Telephone Start: 09-25-2024 End: 23-31-1352Yrmspbmha encounterSdebbie Winston MD Work Phone: Radiation OncologyComment on above:Future Appointment (Schedule Simulation)Start: 09-25-2024 End: 14-85-4686jiboufawsgHjlhyu Weyer RNRadiation OncologyComment on above: Patient EducationStart: 09-25-2024 End: 21-61-8793Pxqfhmq encounter procedureSdebbie Winston MD Work Phone: Radiation OncologyComment on above:Hodgkin lymphoma, unspecified Hodgkin lymphoma type, unspecified body region (HCC) (Primary Dx) Start: 09-23-2024 End: 68-32-0174Dtmakvrtm encounterCleve Quinn PT Work Phone: [facility] CI PTComment on above:Check PT statusStart: 09-19-2024 End: 65-59-6774Ohfkpmlv SupportAlison Kailyn HATHAWAY Work Phone: [facility], Nose and ThroatComment on above:Sensorineural hearing loss (SNHL) of both ears (Primary Dx)Start: 09-15-2024 End: 94-16-8624eknoihroxkJYVWMP [facility] Start: 09-08-2024 End: 49-00-9261Uwmysgjfw encounterRegis Ibarra MD Work Phone: [facility] ThroatStart: 09-01-2024 End: 44-04-8562Ynxksw flowsRamon Quinn PT Work Phone: [facility] CI PTStart: 09-01-2024 End: 59-76-8792Pihwcy Christie Quinn PT Work Phone: [facility] CI PTStart: 09-01-2024 End: 89-93-4402pjrriohwgdZxxsze T Blackston PT Work Phone: [facility] CI PTComment on above:Polyneuropathy (Primary Dx); Poor balance; Weakness of both lower extremitiesStart: 08-22-2024 End: 63-09-7354Nisywt flowsheetAurea Sanchez PTANOMS CI PTStart: 08-22-2024 End: 93-59-5331Atsvik flowsheetAurea Sanchez PTANOMS CI PTStart: 08-22-2024 End: 65-57-0686qlfpkitjmuOjfkjdk Kelbley PTANOMS CI PTComment on above: Polyneuropathy (Primary Dx); Poor balance; Weakness of both lower extremitiesStart: 08-20-2024 End: 86-76-3075hnhjeozeqwGxusra T Blackston PT Work Phone: noMS CI PTComment on above:Polyneuropathy (Primary Dx); Poor balance; Weakness of both lower extremitiesStart: 08-20-2024 End: 34-72-1185Qhnlqa Christie Quinn PT Work Phone: noMS CI PTStart: 08-20-2024 End: 35-56-1701Etudwi Christie Quinn PT Work Phone: noMS CI PTStart: 08-15-2024 End: 22-98-2848Kcncilone encounterRegis Ibarra MD Work Phone: [facility] Nose and ThroatStart: 08-13-2024 End: 37-17-6010Xbqiyfnqs encounterRegis Ibarra MD Work Phone: [facility] - ENTComment on above:Need office notes faxedStart: 08-12-2024 End: 43-58-5181Wyihjlrfx Result EncounterChristopher Deepa DO Work Phone: noMS External Department UnsolicitedStart: 08-12-2024 End: 44-24-1465Uhvqodrys Result EncounterChristopher Deepa DO Work Phone: noms External Department UnsolicitedStart: 08-12-2024 End: 12-19-0756Rdytxvstc encounterRegis Ibarra MD Work Phone: [facility] Nose and ThroatStart: 08-07-2024 End: 83-10-5712Yllubf flowsheetChristopher Deepa DO Work Phone: noms [address] R[facility]TEStart: 08-07-2024 End: 81-69-2581Wbhzct flowsheetChristopher Deepa DO Work Phone: noms [facility] [facility]TEStart: 08-07-2024 End: 09-00-1226Wyykmn outpatient visit 25 minutesChristopher Deepa DO Work Phone: noms [facility] STATE ROUTEComment on above:Lymphoma, unspecified body region, unspecified lymphoma type (CMS/HCC) (Primary Dx); Malnutrition, unspecified type (CMS/HCC); PolyneuropathyStart: 08-07-2024 End: 82-72-7329tlzbyuhmosSZWZMPMYOAF HASSETTNot AvailableStart: 07-29-2024 End: 13-48-4922Lacuhq outpatient new 45 minutesRegis Ibarra MD Work Phone: [facility] Physicians Ear, Nose and ThroatComment on above:Sensorineural hearing loss, asymmetrical (Primary Dx); Vestibular schwannoma (CMS-HCC); Hodgkin lymphoma, unspecified Hodgkin lymphoma type, unspecified body region (CMS-HCC)Start: 07-10-2024 End: 55-63-9428Iddhwe flowsheetChristopher Deepa DO Work Phone: noms [facility] [place] [facility]TEStart: 07-10-2024 End: 16-64-0626Azyuht flowsheetChristopher Deepa DO Work Phone: noms [address]TEStart: 07-10-2024 End: 86-99-2826Zdcaepf encounter procedureChristopher Deepa DO Work Phone: noms [address] ROUTEComment on above:Weakness (Primary Dx); PolyneuropathyStart: 07-10-2024 End: 54-32-3939qpsvxawdqbDIJKCFVYHPM HASSETTNot AvailableStart: 07-02-2024 End: 65-62-5807Euprflu encounter procedureLillian Nagel AUD Work Phone: NOM[facility] AUDComment on above:Sensorineural hearing loss, bilateral (Primary Dx)Start: 07-02-2024 End: 62-60-7056wiygnrystsPOXHNGS S WRIGHTNot AvailableStart: 07-02-2024 End: 62-69-6291Wjwfua Jessica Nagel AUD Work Phone: NOMS AUDStart: 07-02-2024 End: 09-97-8175Vwxlzd Jessica Nagel AUD Work Phone: noMS AUDStart: 06-27-2024 End: 46-62-7344Vpnaqc Jessica Nagel AUD Work Phone: [facility] AUDStart: 06-27-2024 End: 74-81-2606Myunpe Jessica Nagel AUD Work Phone: noMS AUDStart: 06-27-2024 End: 50-34-0650Jolmvwt encounter procedureLillian Nagel AUD Work Phone: noMS AUDComment on above:Sensorineural hearing loss, bilateral (Primary Dx)Start: 06-27-2024 End: 65-49-5172pqsbdraqbyPPGGAKX S WRIGHTNot AvailableStart: 06-19-2024 End: 22-92-9139uifthnqldxFZVNVBE [facility] Start: 06-17-2024 End: 15-41-2625Kdlysh flowsheetChristopher Deepa DO Work Phone: [facility]TEStart: 06-17-2024 End: 88-03-3139Frqliv flowsheetChristopher Edepa DO Work Phone: [facility]TEStart: 06-17-2024 End: 13-93-7102Jwmius outpatient new 60 minutesChristopher Deepa DO Work Phone: noms [facility] STATE ROUTEComment on above: Malnutrition, unspecified type (CMS/HCC) (Primary Dx); Weakness; History of benign schwannoma; Lymphoma, unspecified body region, unspecified lymphoma type (CMS/HCC)Start: 06-17-2024 End: 28-77-4926ffgqiutshaJRJAICDUUEF HASSETTNot AvailableStart: 06-16-2024 End: 76-75-6638Vgvjnoe encounter procedureNoms [facility] Kathleen REYNOLDS AUDComment on above: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)Start: 06-16-2024 End: 49-56-3126njxeqnoiipAVYCCF BLACKSTONNot AvailableStart: 06-13-2024 End: 93-53-7130Iklbwcwxc Result EncounterEvelyn ARSHAD Work Phone: noms External Department UnsolicitedStart: 06-13-2024 End: 57-34-4250Xifdrxqga Result EncounterEvelyn ARSHAD Work Phone: noms External Department UnsolicitedStart: 06-09-2024 End: 46-38-0801yjfrylorqgSumervo Rosi WATERSFacility:EU BellevueStart: 06-09-2024 End: 29-45-7592Dspsych encounter procedurePatrick R POP [facility] start: 06-03-2024 End: 21-03-1247gvlfkzxtjnAlliata R NILLFacility:CD:[id number]: 06-03-2024 End: 42-66-8260Xenazab encounter procedureMichael R NILL [phone]-NskfuMercy Health [facility] [place] Start: 05-29-2024 End: 39-48-4965Ddbxety encounter procedureDO González Moon Work Phone: [facility] Main [place] Work Phone: Start: 05-29-2024 End: 16-04-2248utbgzkewunBP González Moon Work Phone: [facility] Work Phone: Start: 05-26-2024 End: 82-92-8739Vhxbfy flowsheetYanna Harrison CCC-A Work Phone: noms CI AUDStart: 05-26-2024 End: 53-46-6077Mazwyk flowsheetYanna Harrison CCC-A Work Phone: noms CI AUDStart: 05-26-2024 End: 47-78-9966Qyxsskqn SupportDedonald Harrison CCC-A Work Phone: noms CI AUDComment on above: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)Start: 04-30-2024 End: 76-99-2443yhskucscrnYldduhv R NILLFacility:Ballad HealthevueStart: 04-30-2024 End: 65-41-5515Btbpvbl encounter procedureMichael R NILL [phone]-Rfwmh General Surgery [facility] Start: 31-81-9495ywroskjnloJphlqco NILLFacility: CaseyueStart: 04-23-2024 End: 73-43-1994cbrwebgutcGN González Moon Work Phone: [facility] Work Phone: Start: 04-23-2024 End: 50-20-3104Piwgevtm ReferredDO González Moon Work Phone: [facility] Path Spec [facility] HospStart: 89-84-4626qihnwghewkIjnpzds NILLFacility: CalinkStart: 04-22-2024 End: 70-35-0602ctwjrhvfevEcduytw R NILLFacility:CD:[id number]: 04-21-2024 Non-patient / Non-visitDO González Kuns Work Phone: [facility] Work Phone: Start: 04-11-2024 End: 62-88-6501hxnebeidghDK González Moon Work Phone: [facility] Work Phone: Start: 04-11-2024 End: 97-79-3482Xuolirbj ReferredDO González Moon Work Phone: [facility]-LAB Path Spec [facility] HospStart: 02-11-2024 End: 66-23-1257agcgxnimdwEeevbiv R WATERSFacility:CD:[id number]: 01-21-2024 End: 45-44-6835bjynbleqnvKxakdux R WATERSFacility:EU [facility] Hospitaltart: 01-21-2024 End: 76-55-0748Rryjala encounter procedureMoody POP [facility] start: 16-58-7321zhqnocodqwMcpbewz NILLFacility:EU [place]kyStart: 08-26-2021 End: 54-07-2758dxakikyxtyZKNGPG ALLENFacility:B9Sachn: 95-09-2255fjfxzgossp AILIN ALLENFacility:A3Lobbs: 12-06-2020 End: 40-45-9984cyqxyyslceJXWLZBZ D KATKOFacility:W8Hdfgt: 16-50-8697Ylmjtieev for general adult medical examination without abnormal findingsPAMELA Radha [facility] HospitalStart: 10-01-2020 End: 32-66-4790ixfjybgzklDMMLPS ALLENFacility:O3Riqfy: 10-01-2020 End: 65-50-9024Ajugsmxbn for general adult medical examination without abnormal findingsPAMELA ALLENFacility:M4Askui: 2017 End: 00-86-4310EjvuwctchpDXCDJLGY UNKNOWNFacility:UTMCStart: 07-24-2017 End: 27-14-7192GihvbastvlJIYEGTE PHYSICIANFacility:[facility] CENTERtart: 07-19-2017 End: 12-78-6422NsuzjxnbhzRUNTZUN PHYSICIANFacility:[facility]ENTERtart: 06-18-2017 End: 02-79-6341IuhsyjnumuHYATYGL PHYSICIANFacility:[facility] Procedures DateProcedureProcedure DetailPerforming ClinicianStart: 91-06-4956RAN HEMOGLOBIN F8NTqltnmpqsjv Deepa DO Work Phone: Start: 07-10-2024 End: 44-73-1267Kxnnyz emg ea extremty w/paraspinl area completeChristopher Deepa DO Work Phone: Start: 93-21-0623LOZ 12-LEADEvelyn ARSHAD Work Phone: Start: 63-84-7263EZA 12-LEADEvelyn ARSHAD Work Phone: Start: 15-58-7248Urkuiwovb of implantable venous access portPatrick POP Start: 99-22-9700BF pre/post mri xrayDO González Moon Work Phone: Start: 60-51-8158INQ of cervical spine with contrastDO González Moon Work Phone: Start: 51-07-3215QTR of headDO González Red Work Phone: Start: 77-76-3574Fbisnlaizg biopsyMichael NILL Start: 10-23-5894OQP screeningPAMELA ALLENComment on above:Performed By: #### PSASC #### [facility] [address] [place] [address] Dr. Forrest LaurenStart: 84-06-1825REY screeningPAMELA ALLENComment on above: Performed By: #### URIC, CMP, T7, PSASC, TSH, LIPID #### [facility] [address] [place] [address] Matias Sesaytart: 02-20-4021MzaqywheevkGbxbftc WATERS Start: 11-25-8214Oueidjmq of brain (disorder)Moody POP Back structure, excluding neck (body structure)Moody POP Removal of acoustic neuromaMichael NILL Spinal arthrodesisMichael NILL TonsillectomyMoody POP Plan of Treatment DateCare ActivityDetailAuthorStart: 66-09-7602Hcbdpxz ScreeningTobacco Screening [facility] Nuregotart: 86-48-5033Ijafc BMI ScreeningAdult BMI Screening [facility] CenterTunespotter, Inc.tart: 33-52-2855Nqfclqf ScreeningTobacco Screening [facility] Nuregotart: 04-20-2025 End: 66-79-4602Eiowact encounter slevctdzo65/15/2025 10:00 AM EDT Office Visit Radiation Oncology [address] [address] Rg Winston MD [address] [address] 4 month follow upRadiation OncologyComment on above:4 month follow up Start: 72-78-7989Utjaaockm vaccinationInfluenza Vaccine (Season Ended)[facility]ertart: 12-18-2024 End: 93-24-8932Wywjdfw encounter lgyyviqtg80/15/2025 10:30 AM EDT Office Visit Radiation Oncology [address] [address] Rg Winston MD [address] [place] [address] final radiation follow upRadiation OncologyComment on above:final radiation follow upStart: 12-15-2024 End: 12-01-1102Cumzfbs encounter /12/2025 4:00 PM EDT Office Visit Radiation Oncology [address] [place] [address] Rg Winston MD [address] [place] [address] final radiation follow upRadiation OncologyComment on above:final radiation follow upStart: 11-19-2024 End: 00-73-2176Flhlylu encounter csscshceq29/16/2025 10:00 AM EDT Office Visit Radiation Oncology [address] [address] Rg Winston MD [address] [address] Location: SA-ON TREATMENT REVRadiation OncologyComment on above:Location: SA-ON TREATMENT REVStart: 11-17-2024 End: 80-81-7743Nqjgvub encounter lloovvhqb58/14/2025 9:45 AM EDT Appointment Radiation Oncology [address] [place] [address] rt axilla/ neckRadiation OncologyComment on above:rt axilla/ neckStart: 11-14-2024 End: 12-99-8775Ogrqbff encounter /11/2025 2:15 PM EDT Education Nutrition Therapy [address] [place] [address] [place] [address] Nutrition consultNutrition TherapyComment on above:Nutrition consultStart: 11-14-2024 End: 58-98-9125Jnovxwu encounter dfkqmahvx78/11/2025 9:45 AM EDT Appointment Radiation Oncology [address] [place] [address] rt axilla/ neckRadiation OncologyComment on above:rt axilla/ neckStart: 11-13-2024 End: 38-64-5182Lisbjyq encounter kakbuffpg08/10/2025 9:45 AM EDT Appointment Radiation Oncology [address] [place] [address] rt axilla/ neckRadiation OncologyComment on above:rt axilla/ neckStart: 11-12-2024 End: 69-29-2834Jobwpwc encounter procedureRadiation OncologyComment on above:rt axilla/ neckLocation: SA-ON TREATMENT REVStart: 11-11-2024 End: 05-95-7293Zvcrlsx encounter zjyqyvnal31/08/2025 9:45 AM EDT Appointment Radiation Oncology [address] [place] [address] rt axilla/ neckRadiation OncologyComment on above:rt axilla/ neckStart: 11-10-2024 End: 49-21-7172Tvxodcr encounter udtowhcva41/07/2025 9:45 AM EDT Appointment Radiation Oncology [address] [place] [address] rt axilla/ neckRadiation OncologyComment on above:rt axilla/ neckStart: 11-07-2024 End: 59-72-3296Dlctcaj encounter neqthpatc46/04/2025 9:45 AM EDT Appointment Radiation Oncology [address] [place] [address] rt axilla/ neckRadiation OncologyComment on above:rt axilla/ neckStart: 11-06-2024 End: 45-98-7437Izyhljs encounter rktxtpofv30/03/2025 9:45 AM EDT Appointment Radiation Oncology [address] [place] [address] rt axilla/ neckRadiation OncologyComment on above:rt axilla/ neckStart: 11-05-2024 End: 31-03-9940Lfxrizw encounter procedureRadiation OncologyComment on above:rt axilla/ neckLocation: SA-ON TREATMENT REVStart: 11-04-2024 End: 89-20-6372Vfjybqe encounter qfkahtwbr88/01/2025 9:45 AM EDT Appointment Radiation Oncology [address] [place] [address] rt axilla/ neckRadiation OncologyComment on above:rt axilla/ neckStart: 11-03-2024 End: 77-08-9978Zuhgqdt encounter fwkyllylv87/31/2025 3:45 PM EDT Office Visit [facility] [address] [id number] Jassi Yanes MD [address] [place] [address] [address] [place], [place] [facility] and ThroatStart: 10-21-2024 End: 05-57-2431Mypkowe encounter procedureRadiation OncologyComment on above:NEW START AXILLAAxilla- would like morningsStart: 10-20-2024 End: 80-77-6506Tzlhisd encounter procedureRadiation OncologyComment on above:NEW START AXILLA- ANN PTAxilla- would like mornings- ANN PTStart: 10-07-2024 End: 88-10-5518Nukjcjr encounter geacskpez89/04/2025 1:30 PM EST Office Visit Radiation Oncology [address] [place] [address] [place] [address] Rg Winston MD [address] [place] [address] [place] [address] RT AXILLA/NECK W/ IV - CONSENT DONERadiation OncologyComment on above:RT AXILLA/NECK W/ IV - CONSENT DONEStart: 10-07-2024 End: 81-24-2272Ltfkskh evaluation of patient and oxuipt1110/07/2024 1:15 PM EST Nurse Visit Radiation Oncology [address] [place] [address] [place] [address] Ina, Nurse Radt [address] [place] [address] [place] [address] Nurse VisitRadiation OncologyComment on above:Nurse VisitStart: 09-26-2024 End: 58-76-0306Uxrxevuvi evgkzow6609/26/2024 1:30 PM EST Education Nutrition Therapy [address] [place] [address] [place] [address] [address] ArrivedNutrition TherapyComment on above:ArrivedStart: 09-19-2024 End: 82-71-3630Utxiasre Doeypvc0809/19/2024 9:00 AM EST Clinical Support [facility] [address] [facility] [place] [address] Kailyn Pilar, AUD [address] [place] [address] [facility] and ThroatStart: 90-43-1542Kudeaevpv for malignant neoplasm of colonPeoples Hospital Start: 09-04-2024 End: 36-31-7452Edwfflt encounter procedureNOOHIOHEALTH ROUTEStart: 09-01-2024 End: 93-29-3004cpqceyoroiZCWF CI PTComment on above:ArrivedStart: 08-29-2024 End: 39-83-9580iqxmpjmztr12/24/2025 9:00 AM EST Treatment [facility] [address] [facility] [address] [place] [address] Aurea Sanchez, MINE EXPLORATION ENGINEER [facility] CI PTStart: 08-27-2024 End: 18-39-4545vaxdqomrvi51/22/2025 9:00 AM EST Treatment [facility] [address] [facility] [address] [place] [address] Aurea Sanchez, MINE EXPLORATION ENGINEER [facility] CI PTStart: 08-22-2024 End: 80-41-3653uvupivynynXFXS CI PTComment on above:Polyneuropathy (Primary Dx); Poor balance; Weakness of both lower extremitiesStart: 08-07-2024 End: 17-01-2444Umonafrcb (Vitamin B12) [Mass/volume] in Serum or PlasmaVitamin B12 Lab Routine Lymphoma, unspecified body region, unspecified lymphoma type (CMS/HCC) Expected: 08/07/2024 (Approximate), Expires: 08/07/2025[facility] Comment on above:Expected: 08/07/2024 (Approximate), Expires: 08/07/2025Start: 08-07-2024 End: 62-00-6176Jlpdse, serumCopper, serum Lab Routine Lymphoma, unspecified body region, unspecified lymphoma type (CMS/HCC) Expected: 08/07/2024 (Approximate), Expires: 08/07/2025[facility] HealthcareComment on above:Expected: 08/07/2024 (Approximate), Expires: 08/07/2025Start: 08-07-2024 End: 90-96-9576Vfnmtjlzzw A1c/Hemoglobin.total in BloodHemoglobin A1c Lab Routine Lymphoma, unspecified body region, unspecified lymphoma type (CMS/HCC) Expected: 08/07/2024 (Approximate), Expires: 08/07/2025[facility] Work Phone: comment on above:Expected: 08/07/2024 (Approximate), Expires: 08/07/2025Start: 08-07-2024 End: 61-37-6979Gjktimtrkclbxr electrophoresisImmunofixation electrophoresis Lab Routine Lymphoma, unspecified body region, unspecified lymphoma type (CMS/HCC) Expected: 08/07/2024 (Approximate), Expires: 08/07/2025[facility] HealthcareComment on above:Expected: 08/07/2024 (Approximate), Expires: 08/07/2025Start: 08-07-2024 End: 26-80-8680Jywrgz Ab [Presence] in Serum by RPRRPR Lab Routine Lymphoma, unspecified body region, unspecified lymphoma type (CMS/HCC) Expected: 09/2024 (Approximate), Expires: 08/07/2025[facility] HealthcareComment on above: Expected: 08/07/2024 (Approximate), Expires: 08/07/2025Start: 08-07-2024 End: 98-48-8489Wodjlbrwelv [Units/volume] in Serum or PlasmaTSH Lab Routine Lymphoma, unspecified body region, unspecified lymphoma type (CMS/HCC) Expected: 08/07/2024 (Approximate), Expires: 08/07/2025[facility] HealthcareComment on above: Expected: 08/07/2024 (Approximate), Expires: 08/07/2025Start: 08-07-2024 End: 95-13-5121Wklvuin J5Pzkyupa B6 Lab Routine Lymphoma, unspecified body region, unspecified lymphoma type (CMS/HCC) Expected: 08/07/2024 (Approximate), Expires: 08/07/2025[facility] HealthcareComment on above:Expected: 08/07/2024 (Approximate), Expires: 08/07/2025Start: 08-07-2024 End: 65-81-4731Feeshvb encounter procedureNOMS PIERCE STATE ROUTEComment on above:ArrivedStart: 49-51-8927Fndpunr Directive DiscussionAdvance Directive DiscussionCleblanchard valley health system ClinicStart: 07-10-2024 End: 18-99-8443Qfecncv encounter procedureNOMS STAN STATE ROUTEComment on above:ArrivedStart: 07-02-2024 End: 36-73-4161Bomjdqm encounter procedureNOSAINT JOSEPH HOSPITAL WEST AUDComment on above:Arrived Start: 06-27-2024 End: 37-09-1840Kltnfdd encounter ebrfngvvc53/22/2024 9:00 AM EST Office Visit [facility]UD [address] [place] [address] Lillian Nagel, AUD [address] [facility] [place] [address] ArrivedNOSAINT JOSEPH HOSPITAL WEST AUDComment on above:ArrivedStart: 06-17-2024 End: 26-88-0193STL 2 ExtremitiesEMG 2 Extremities Neurology Routine Weakness Expected: 06/17/2024, Expires: 06/17/2025[facility] Work Phone: comment on above:Expected: 06/17/2024, Expires: 06/17/2025Start: 06-16-2024 End: 15-99-9698Lcrkaye encounter qnedvrvpg06/11/2024 3:00 PM EST Office Visit [facility]UD [address] [facility] [place] [address] [phone] SH AUDStart: 06-05-2024 End: 64-12-6262Eduuday encounter durocftht04/31/2024 11:00 AM EDT Office Visit [facility] NEUROLOGY [address] [phone] Lucas Arenas, [address] [place] [address] NOMJhonatan NEUROLOGYStart: 53-34-4087Kowiv-19 Vaccine ( season)Covid-19 Vaccine ( season)[facility] Centertart: 34-87-3882Vlskkpkxq vaccinationProProMedica Flower Hospitaltart: 99-74-5230Hmis Risk ScreeningFall Risk ScreeningProProMedica Flower Hospitaltart: 07-19-2018 Pneumococcal Vaccine: 50+ (2 of 2 - PCV)Pneumococcal Vaccine: 50+ (2 of 2 - PCV) [facility]art: 57-88-6261KVR Vaccine (1 - Risk 60-74 years 1-dose series)RSV Vaccine (1 - Risk 60-74 years 1-dose series)[facility] Centertart: 22-83-3101Wkrdaasa specific antigen measurementProstate Cancer Screening DiscussionUniversity Hospitals St. John Medical Centertart: 52-99-8335Ombzauvz ScreeningDiabetes Screening [facility] Centertart: 83-18-5396Xzlegzbatnvzgz of varicella zoster vaccine Zoster (Shingles) Vaccine (1 of 2)[facility]: 2006 Shingrix Vaccine (1 of 2)Shingrix Vaccine (1 of 2)[facility] Centertart: 59-61-3283Vxwhxgjh specific antigen measurementProstate Cancer Screening DiscussionUniversity Hospitals St. John Medical Centertart: 20-47-1047Dikyxllht for malignant neoplasm of colonUniversity Hospitals St. John Medical Centertart: 47-64-9460Ieehp panelLipid ScreeningPeoples Hospital Start: 73-83-0043Nmfggtuulqlugf of varicella zoster vaccineZoster (Shingles) Vaccine (1 of 2)[facility] Hospitaltart: 75-52-6401LJlA,Tdap and Td Vaccines (1 - Tdap)DTaP,Tdap and Td Vaccines (1 - Tdap)[facility] Start: 80-79-8104Ozppbjuf Vaccine (1 of 2)Shingrix Vaccine (1 of 2)[facility] Cent[facility]art: 47-66-4750Vobps microalbumin profileDTaP,Tdap,Td Vaccine (1 - Tdap) [facility] Centertart: 10-37-9775Yuyexbr ScreeningAnxiety ScreeningUniversity Hospitals St. John Medical Centertart: 33-49-2140Wrykllbuuf ScreeningDepression ScreeningPeoples Hospital Start: 82-20-5014Jgvakysse C screeningHepatitis C ScreeningPeoples Hospital Start: 72-96-1823Sffacohxfk ScreeningDepression ScreeningUC Health Start: 52-25-6414Hrsuk-19 Vaccine (#1)Covid-19 Vaccine (#1)[facility] Auditory function testsAuditory function tests Audiology Routine 05/26/2024 1:35 PM [facility] Work Phone: Payers DatePayer CategoryPayerPolicy [id number] MEDICARE [id number] 2024Medicare (Managed Care) [id number] Health [id number] Cross Blue [id number] [id number] 1959Self-[id number] [id number] 2..1.902853.3.57[id number] 2..1.891747.3.579.2.49297-00-9351Txedjgv2133909 2.16.840.1.900487.3.579.2.36037-27-7271Egbgebd3301836 2.16840.1.085492.3.579.2.96205-64-4465Kzddccn45206099 2.16840.1.574331.3.579.2.20444-43-3952Fcoeqst56606454 2.16840.1.658588.3.579.2.28254-71-7247Wnojnmx02515915 2.16840.1.058233.3.579.2.49337-65-3936Dungjnq82591432 2.16840.1.614196.3.579.2.78833-94-4015Wwnsxzt19819587 2.840.1.637566.3.579.2.71615-71-9388Xrrteug00303805 2.16840.1.760938.3.579.2.29965-97-8805Vexeojn84783816 2.840.1.275146.3.579.2.68526-22-9962Tiqmhxz33256653 2.0.1.938260.3.579.2.39905-21-7105Oddhnbd8148160 2.840.1.034487.3.579.2.611887-71-6304Gztmjgx8615994 2.16840.1.897266.3.579.2.299772-82-0570Isrvgpk7025498 2.16840.1.450630.3.579.2.982238-18-7887Oalgiri3433256 2.16840.1.257250.3.579.2.632951-74-3503Didlzyx9599206 2.16.840.1.927280.3.579.2.365848-07-1884Kpjmqbp2793043 2..840.1.371123.3.579.2.899847-49-9487Lnivprw8623603 2.16.840.1.247985.3.579.2.388653-25-4791Wcefzxm2846985 2..840.1.721476.3.579.2.171674-80-5659Azqgosr1705551 2..840.1.247611.3.579.2.046399-02-1242Qekbduj8800901 2..840.1.961147.3.579.2.1259Private Health InsuranceWVUMedicine Barnesville Hospital [id number] BC/BS [id number]-[id number]-8st2-a3gm-4x631sh86958Zvjulkd27483050 2.840.1.830034.3.579.2.795Yscdbwq86355669 2.840.1.902047.3.579.2.531 Dwofkmh11043211 2.0.1.160180.3.579.2.531 Social History DateTypeDetailFacilityStart: 01-21-2024 End: 70-92-1341Grqflgx smoking statusNever smoked tobacco (finding)[facility] HospitalueStart: 69-66-6238Icujwxg smoking statusNeverExecutive Urology of Pike Community Hospitaltart: 07-29-2024 End: 21-13-4785Fec Assigned At [facility] Hospitaltart: 81-69-2661Zxn Assigned At [facility] HospitalTobacco smoking status NHISTobacco smoking consumption unknownSSM Health CareStart: 12-37-1916Uga assigned at birthNot on fileSSM Health CareStart: 07-29-2024 End: 45-11-7062Azowvvj use and exposureSmokeless tobacco non-userParkwood Hospital SystemStart: 27-35-5480Ibgbqppcm beverage intakeLifetime non-drinker (finding)[facility] SystemStart: 07-29-2024 End: 63-89-3987Jdrgmyx of Social functionProMarietta Memorial Hospital SystemStart: 12-11-5998HppMocy (finding)[facility] SystemStart: 95-97-4995Rljtvg identityIdentifies as male gender (finding)[facility] SystemStart: 81-07-1626Wlsiho orientationHeterosexual (finding)[facility] SystemStart: 09-25-2024 End: 96-63-6747Sfjrsftiw beverage intakeEx-drinker (finding)[facility] NEGATED: Highlighted rowStart: NINFHistory of tobacco usePassive smokerPeoples Hospital Functional Status EpbdItshkqremdGlcxsxPddvidon55-53-5123Letojfzkpj StatusN/[facility] General Surgery Jqcxjzh00-52-5484Jnctmghcsm StatusN/[facility] Surgery Uzxoyhkf88-63-0460Rvvofddmka StatusN/AExecutive Urology of [facility] Clinical Notes 01-21-2024 to 04-03-2025 Note Date & YupqFvqgOuvirbod55-97-8926 NoteReturn phone call from patients . Advised of Dr. Schneider recommendations. verbalized understanding and agreed with plan of care [facility]08-18-2025 NoteUT Cardiology - [facility] Subjective Nabeel Tran is a [...] placement and then was admitted to the [facility] on 06/13/2024 with atrial fibrillation and [...] tablet, TAKE 1 TABLET (more content not included)...[facility]05-15-2025 NoteHNO ID: [id number] Author: RG WINSTON MD Service: ? Author [...] under the care of Dr. Donnelly at [facility] and repeat pet imaging after the [...] a result of the inadequacies/shortcomings of said technology/software.[facility]05-15-2025 History of Present illness Narrative* Rg Winston [...] inadequacies/shortcomings of said technology/software. documented in this encounterPeoples Hospital05-06-2025 Telephone encounter Note * Telephone Encounter - Ana Paula Chauhan RN - 12/09/2024 4:03 PM EDT I left another message for Nabeel to return my call. Ana Paula Chauhan RN [facility]05-06-2025 Miscellaneous Notes* Telephone Encounter - Ana Paula [...] Ana Paula Chauhan RN documented in this encounterPeoples Hospital04-29-2025 Telephone encounter Note * Telephone Encounter - Ana Paula Chauhan RN - 12/02/2024 1:04 PM EDT I called and left a message for Nabeel to call back for an update post radiation completion. Ana Paula Chauhan RN [facility]04-14-2025 NoteHNO ID: [id number] Author: RG WINSTON MD Service: ? Author Type: Physician Type: Progress Notes Filed: 11/27/2024 04:40 Note Text: [facility] Radiation Oncology Department RADIATION ONCOLOGY - [...] under the care of Dr. Donnelly at [facility] and repeat pet imaging after the [...] AM Electronically Signed cc: Sonia Donnelly MD ([place]) Ailin Green, INSTRUMENT LENS GRINDER APPRENTICE [address] [facility] [place] [address] [facility]04-11-2025 NoteEducation (NUTRSA) CHELSEANABEEL Young ([id number]) 1955 M Date Time Provider Department 11/14/24 2:15 PM MARGO SCHUMACHER Reason for Visit: Nutrition Telephone [2013] Cmt: No answer Visit Diagnosis:Hodgkin lymphoma, unspecified Hodgkin lymphoma type, unspecified body region (HCC) [C81.90] Order(s):CONSULT TO ONCOLOGY NUTRITION [[id number]] Order #: [id number]: 1 During your visit today, we recorded [...] mg. Encounter Status:Closed by MARGO SCHUMACHER on 11/17/24[facility]04[facility] NoteHNO ID: [id number] Author: MARGO SCHUMACHER RD Service: ? Author Type: Registered Dietitian Type: Progress Notes Filed: 11/17/2024 08:01 Note Text: Oncology Nutrition Therapy Reassessment I have communicated my name and active licensure. The patient's identity and physical location were verified at the time of this visit. Either the patient or their legal eligibility services representative has been informed of the risks and benefits of -- and alternatives to -- treatment through a remote evaluation and consents to proceed with the evaluation remotely. 1415- called pt for scheduled phone appointment. No answer, left message with return contact information. Signed by: Margo Schumacher RD, ZENY, JUSTINEAv[facility]04[facility]11[facility] History of Present illness Narrative* Margo Schumacher RD - 11/14/2024 7:52 AM EDT Oncology Nutrition Therapy Reassessment I have communicated my name and active licensure. The patient's identity and physical location wereverified at the time of this visit. Either the patient or their legal eligibility services representative has been informed of the risks and benefits of -- and alternatives to -- treatment through a remote evaluation andconsents to proceed with the evaluation remotely. 1415- called pt for scheduled phone appointment. No answer, left message with return contact information. Signed by: Margo Schumacher RD, ZENY, JUSTINE documented in this encounterPeoples Hospital04-10-2025 NoteHNO ID: [id number] Author: RG WINSTON MD Service: ? Author [...] under the care of Dr. Donnelly at [facility] and repeat pet imaging after the third cycle on 09/08/2024 noted excellent metabolic response (Deauville 3). COURSE: Consolidative AREA TREATED: Right axilla/neck CURRENT DOSE: 55767 cGy in 18 fx PLANNED DOSE: 3600 [...] parameters. Continue radiation treatment as planned. Rg Winston, [facility]04-10-2025 History of Present illness Narrative* Rg [...] under the care of Dr. Donnelly at [facility] and repeat pet imaging after the third cycle on 09/08/2024 noted excellent metabolic response (Deauville 3). COURSE: Consolidative AREA TREATED: Right axilla/neck CURRENT DOSE: 26109 cGy in 18 fx PLANNED DOSE: 3600 [...] planned. Rg Winston MD documented in [place] encounterAllen [place] [address]-02-2025 NoteHNO ID: [id number] Author: RG WINSTON MD Service: ? Author [...] under the care of Dr. Donnelly at [facility] and repeat pet imaging after the [...] further investigate if it persists. Rg Winston [facility]04-02-2025 History of Present illness Narrative* Rg Winston MD - 11/05/2024 11:50 PM EDT Radiation Oncology - On Treatment Review (OTR) Note PATIENT NAME: Nabeel Tran PATIENT Rg Winston MD documented in this encounterPeoples Hospital03-26-2025 NoteHNO ID: [id number] Author: RG WINSTON MD Service: ? Author [...] under the care of Dr. Donnelly at [facility] and repeat pet imaging after the [...] Continue radiation treatment as planned. Rg Winston [facility]03-26-2025 History of Present illness Narrative* Rg [...] under the care of Dr. Donnelly at [facility] and repeat pet imaging after the [...] planned. Rg Winston MD documented in this encounterPeoples Hospital03-18-2025 NoteHNO ID: [id number] Author: RG WINSTON MD Service: ? Author [...] under the care of Dr. Donnelly at [facility] and repeat pet imaging after the [...] tolerated through the course of treatment. Rg Winston, [facility]03-18-2025 History of Present illness Narrative* Rg [...] under the care of Dr. Donnelly at [facility] and repeat pet imaging after the [...] treatment. Rg Winston MD documented in this encounterPeoples Hospital03-04-2025 History of Present illness Narrative* Rg Winston MD - 10/07/2024 12:00 AM EST NABEEL TRAN [id number] 10/07/2024 [facility] Radiation Oncology Department SIMULATION NOTE DATE OF SIMULATION: 10/07/2024 THERAPIST: Marjan Werner MACHINE: [employer] DIAGNOSIS: Other classical Hodgkin lymphoma, lymph nodes [...] / CDT 56:24 PM documented in this encounterPeoples Hospital03-04-2025 History of Present illness Narrative* Rg Winston MD - 10/07/2024 12:00 AM EST NABEEL TRAN [id number] 10/07/2024 [facility] Department of Radiation Oncology Treatment Planning [...] Winston M.D. 2:58 PM documented in this encounterPeoples Hospital03-04-2025 NoteHNO ID: [id number] Author: RG WINSTON MD Service: ? Author Type: Physician Type: Progress Notes Filed: 10/08/2024 18:24 Note Text: NABEEL TRAN [id number] 10/07/2024 [facility] Radiation Oncology Department SIMULATION NOTE DATE OF SIMULATION: 10/07/2024 THERAPIST: Marjan Werner MACHINE: [employer] mCT DIAGNOSIS: Other classical Hodgkin lymphoma, lymph [...] Signed Rg Winston M.D. / CDT 56:24 [facility]03-04-2025 NoteHNO ID: [id number] Author: RG WINSTON MD Service: ? Author Type: Physician Type: Progress Notes Filed: 10/20/2024 12:58 Note Text: NABEEL TRAN [id number] 10/07/2024 [facility] Department of Radiation Oncology Treatment Planning [...] DVH. Electronically Signed Rg Winston M.D. 2:58 [facility]02-26-2025 Telephone encounter Note* Telephone Encounter - Mady Durbin - 10/01/2024 8:54 AM EST Called and spoke to Nabeel's . She confirmed his appointment times for 10/07/24 with an arrival of 1:00 PM and no special instructions. A nurse visit was added to the schedule for 1:15PM Mady Woodson PSS [facility]02-26-2025 Miscellaneous Notes* Telephone Encounter - Mady Durbin - 10/01/2024 8:54 AM EST Called and spoke to Nabeel's . She confirmed his appointment times for 10/07/24 with an arrival of 1:00 PM and no special instructions. A nurse visit was added to the schedule for 1:15PM Mady B PSS * Telephone Encounter - Kathleen Werner RT(R) - 10/01/2024 7:27 AM EST Sim scheduled on 10/07/24 at 1:30pm PSS - Please schedule nurse visit at 1:15 & notify pt of 1:00pm arrival time, no special instructions. Thanks! RT Jaylen(R)(T) * Telephone Encounter - Daphnie Ramirez - 09/26/2024 10:41 AM EST Rad ed and Nutri scheduled * Telephone Encounter - Coty Chan RN - [...] 10/20 Coty Chan, RN documented in this encounterPeoples Hospital02-26-2025 Telephone encounter Note * Telephone Encounter - Kathleen Werner RT(R) - 10/01/2024 7:27 AM EST Sim scheduled on 10/07/24 at 1:30pm PSS - Please schedule nurse visit at 1:15 & notify pt of 1:00pm arrival time, no special instructions. Thanks! RT Jaylen(R)(T) [facility] Work Phone: [phone] Instructions* Patient Instructions* Margo Schumacher RD - [...] avocado, peanut butter, etc. documented in this encounterPeoples Hospital02-21-2025 NoteEducation (NUTRSA) NABEEL TRAN ([id number]) 1955 M Date Time Provider Department 09/26/24 1:30 PM MARGO SCHUMACHER NUTR Reason for Visit: Nutrition Telephone [2013] Primary [...] mg. Encounter Status:Closed by MARGO SCHUMACHER on 09/26/24[facility] Telephone encounter Note* Telephone Encounter - Daphnie Ramirez - 09/26/2024 10:41 AM EST Rad ed and Nutri scheduled [facility]02-21-2025 NoteHNO ID: [id number] Author: MARGO SCHUMACHER RD Service: ? Author Type: Registered Dietitian Type: Progress Notes Filed: 09/26/2024 13:51 Note Text: Oncology Nutrition Therapy Initial Assessment I have communicated my name and active licensure. The patient's identity and physical location were verified at the time of this visit. Either the patient or their legal eligibility services representative has been informed of the risks [...] dacarbazine) Medical Oncologist: Dr. Donnelly at the [facility] Radiation Oncologist: Dr. Winston PMHx: insulin dependent diabetes per Pt is ANDREAFSKI but is able to verify his name [...] Dosing Weight: 85.4 kg Estimated kilocalorie needs: 5168-4971 kilocalories determined by 25-30 kcal/kg Estimated protein needs: 85-111 grams determined by 1.0-1.3 g/kg Dosing weight Estimated fluid needs: ~1115-6028 milliliters based on 1 mL per kcal [...] mouth. ondansetron orally disin (more content not included)...[facility]02-21-2025 History of Present illness Narrative* Margo Schumacher RD - 09/26/2024 7:33 AM EST Oncology Nutrition Therapy Initial Assessment I have communicated my name and active licensure. The patient's identity and physical location wereverified at the time of this visit. Either the patient or their legal eligibility services representative has been informed of the risks [...] dacarbazine) Medical Oncologist: Dr. Donnelly at the [facility] Radiation Oncologist: Dr. Winston PMHx: insulin dependent diabetes per Pt is ANDREAFSKI but is able to verify his name [...] Dosing Weight: 85.4 kg Estimated kilocalorie needs: 4776-5568 kilocalories determined by 25-30 kcal/kg Estimated protein needs: 85-111 grams determined by 1.0-1.3 g/kg Dosing weight Estimated fluid needs: ~1318-6810 milliliters based on 1 mL per kcal [...] 15 minutes Signed by: Margo Schumacher RD, MEDICAL RECORD RETRIEVAL SPECIALIST, LD documented in this encounterPeoples Hospital02-20-2025 NoteHNO ID: [id number] Author: RG WINSTON MD Service: ? Author Type: Physician Type: Progress Notes Filed: 10/21/2024 08:06 Note Text: Radiation Oncology - New Patient/Consult Note PATIENT NAME: Nabeel Tran PATIENT REQUESTING PHYSICIAN: Dr. 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 He was accompanied today by his family. Final recommendations will be communicated back to the requesting physician by way of the shared medical record, or letter to requesting physician via US mail. HISTORY OF PRESENT ILLNESS: Mr. Tran is a 69-year old gentleman [place], [place] with a history of hearing loss [...] has 2 children, and lives in the [place], [place] area. 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 He denies tobacco or alcohol use. RADIATION [...] under the care of Dr. Donnelly at [facility] and repeat pet imaging after the third cycle on 09/08/2024 noted excellent metabolic response (more content not included)...[facility]02-20-2025 History of Present illness Narrative* Rg Winston MD - 09/25/2024 11:58 PM EST Images from the original note were not included. Radiation Oncology - New Patient/Consult Note PATIENT NAME: Nabeel Tran PATIENT Signed: Rg Winston MD I spent a total of 60 minutes on the date of the service which included preparing to see the patient, utes-ro-dhoy patient care, and counseling and educating the [...] aware. Coty Chan RN documented in this encounterPeoples Hospital02-20-2025 History of Present illness Narrative* Coty Chan RN - 09/25/2024 12:13 PM EST Radiation Therapy - Patient Education Note PATIENT NAME: Nabeel Tran PATIENT September 25, 2024 [facility]: [facility] READINESS TO LEARN Cognitive Ability: Alert [...] by: Coty Chan RN documented in this encounterPeoples Hospital02-20-2025 NoteHNO ID: [id number] Author: COTY CHAN RN Service: ? Author Type: Registered Nurse Type: Progress Notes Filed: 09/26/2024 08:31 Note Text: Radiation Therapy - Patient Education Note PATIENT NAME: Nabeel Tran PATIENT September 25, 2024 [facility]: [facility] READINESS TO LEARN Cognitive Ability: Alert [...] Winston/ Radiation therapist. Signed by: Coty Chan [facility] Telephone encounter Note* Telephone Encounter - Coty [...] sugars* Plan start 10/20 Coty Chan RN [facility]02-20-2025 NoteHNO ID: [id number] Author: COTY CHAN RN Service: ? Author [...] sugars throughout. and pt aware. Coty Chan [facility] NoteEducation (MC) NABEEL TRAN ([id number]) 1955 M Date Time Provider Department 09/25/24 [...] mg. Encounter Status:Closed by COTY CHAN on 09/26/24[facility] 09-23-2024 Telephone encounter Note* Telephone Encounter - [...] w/ referring provider continuation could be suitable. [facility] [id number] Miscellaneous Notes* Telephone Encounter - Sobia Morrow [...] continuation could be suitable. documented in this encounterSSM Health [id number] History of Present illness Narrative* Pilar Kailyn, AUD - 09/19/2024 9:00 AM EST AUDIOLOGIC [...] worse than when it was tested at [facility] in May 2024. Otoscopic Evaluation: Right Ear: Unremarkable Left Ear: Unremarkable Immittance Measures: Right Ear: DNT Left Ear: Type A Pure Tone Audiometry: Right Ear: DNT, known profound SNHL for 20+ years, well documented Left Ear: Moderate sloping to severe SNHL Reliability: good Speech Audiometry: SRT/MINE EXPLORATION ENGINEER in good agreement for the left [...] his ongoing cancer treatment. Katarina Chew, DIANE-A Wallpaperer documented in this encounterUC Health02-10-2025 NoteUT Cardiology - [facility] Subjective Nabeel Tran is a [...] placement and then was admitted to the [facility] on 06/13/2024 with atrial fibrillation and [...] Allergen Reactions Jardiance [Empagl (more content not included)...[facility]02-03-2025 Miscellaneous Notes* Telephone Encounter - Regis Ibarra MD - 09/08/2024 9:48 AM EST MRI Brain in May 2024 with no left sided abnormalities noted. Right IAC enhancement, right cochlearand CN 7 enhancement. Please schedule patient for follow up with Dr. Yanes. documented in this [facility]02-03-2025 Telephone encounter Note* Telephone Encounter - Regis Ibarra MD - 09/08/2024 9:48 AM EST MRI Brain in May 2024 with no left sided abnormalities noted. Right IAC enhancement, right cochlearand CN 7 enhancement. Please schedule patient for follow up with Dr. Yanes. [facility]02-03-2025 Miscellaneous Notes* Telephone Encounter - Regis Ibarra MD - 09/08/2024 9:24 AM EST Ok Cooper doesn't look like we have the MRI brain report. Can you look into it? Thank you documented in this [facility]02-03-2025 Telephone encounter Note* Telephone Encounter - Regis Ibarra MD - 09/08/2024 9:24 AM EST Ok Cooper doesn't look like we have the MRI brain report. Can you look into it? Thank you [employer] [id number] History of Present illness Narrative* Cleve Quinn, [...] Please sign below. Date: documented in this encounterSSM Health [id number] History of Present illness Narrative* Cleve Quinn, [...] improving LE strength, balance, andendurance. Outcome Measure: 34/80 Short Term Goal: To [...] Please sign below. Date: documented in this encounterSSM Health [id number] Miscellaneous Notes* Telephone Encounter - Regis Ibarra [...] like me to do. documented in this encounterUC Health01-10-2025 Telephone encounter Note* Telephone Encounter - Regis Ibarra MD - 08/15/2024 10:28 AM EST Thank you Allison. I do not see a report for the MRI Brain. Do we have that radiology report? [facility]01-10-2025 Telephone encounter Note* Telephone Encounter - Allison Fortune CNA - 08/15/2024 10:28 AM EST I just looked and it looks like they never faxed that one or it got lost. I can call to have them resend it or it looks like it is in under the imaging. Let me know what you would like me to do. [facility]01-08-2025 Miscellaneous Notes* Telephone Encounter - Kathleen Arciniega - 08/13/2024 3:46 PM EST Ailin Green's Office - Lorna called 08/13, patient saw Dr. Ibarra on 07/29/24. [facility] office notes faxed to [phone]. * Telephone Encounter - Allison Fortune CNA - 08/13/2024 3:46 PM EST Faxed over office not to number provided. documented in this encounterUC Health01-08-2025 Telephone encounter Note* Telephone Encounter - Kathleen Arciniega - 08/13/2024 3:46 PM EST Ailin Green's Office - Lorna called 08/13, patient saw Dr. Ibarra on 07/29/24. [place] needs office notes faxed to [phone]. [facility]01-08-2025 Telephone encounter Note* Telephone Encounter - Allison Fortune CNA - 08/13/2024 3:46 PM EST Faxed over office not to number provided. [facility]01-07-2025 Miscellaneous Notes* Telephone Encounter - Regis Ibarra MD - 08/12/2024 2:23 PM EST Just wanted to check if anyone had gotten his head and neck imaging from the outside hospital back? documented in this encounterUC Health01-07-2025 Telephone encounter Note* Telephone Encounter - Regis Ibarra MD - 08/12/2024 2:23 PM EST Just wanted to check if anyone had gotten his head and neck imaging from the outside hospital back? [facility]01-02-2025 History of Present illness Narrative* Lucas Arenas DO - 08/07/2024 10:00 AM EST Images from [...] , wrist extensors , wrist flexor , rfid developer strength 4-/5. LUE Strength deltoid , biceps , triceps , wrist extensors , wrist flexor , rfid developer strength 4-/5. RLE Strength illopsoas, quadriceps, tibialis [...] reflex 1+ . Flowers's sign negative. Coordination: Eweyli-ce-luze testing and rapid alternating movements are normal [...] plan, and return instructions documented in this encounterLogan Ville [id number] History of Present illness Narrative* Regis Ibarra MD - 07/29/2024 9:15 AM EST Images from the original note were not included. [facility] [address] [place] [address] SUBJECTIVE: Patient ID (1955): Nabeel Tran is a 68 y.o. male presents today for Chief Complaint Patient presents with Cerumen Impaction Bilateral Hearing Loss Laterality HPI: Nabeel is presenting today with bilateral profound hearing loss. 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 documented in this encounterUC Health12-05-2024 History of Present illness Narrative* QING Joseph - 07/10/2024 9:30 AM EST Images from the original note were not included. Reason for Appointment: EMG Patient: Nabeel Tran : 1955 EMG Computer: [employer] Referring Physician: Dr. Lucas Arenas EMG: BLE outdoor adventure instructor: Gilbert Gaffney RT(R) Office Location: [place] Reason for EMG: c/o numbness/tingling in bilateral feet. Hx of surgery to low back. Pt currently undergoing chemo. Hx of DM. Taking Eliquis. Comments: Procedure was explained to the patient & who expressed understanding. Patient appeared to have tolerated the test well despite some discomfort due to the nature of the test. documented in this encounterSSM Health [id number] History of Present illness Narrative* RIVAS Cutler [...] offered the opportunity to try a different inbound sales representative to see if he would perceive success. Patient would prefer to return the instruments. A return was processed in [employer] portal. Informed patient he will be refunded by [employer]. Gave his the [employer] number inthe event they needed to discuss the refund process. Patient to let us know if he would like to tryBiCROS devices again in the future. documented in this [facility]11-22-2024 History of Present illness Narrative* RIVAS [...] within the trial period. documented in this [facility]11-14-2024 NoteUT Cardiology - [facility] Subjective Nabeel Tran is a [...] the morning., Disp: , (more content not included)...[facility]11-12-2024 History of Present illness Narrative* Lucas Arenas, DO - 06/17/2024 12:15 PM EST Images from the original note were not included. Chief complaint: Unsteadiness and generalized weakness and falls Subjective Nabeel Tran, 68 y.o., male Nabeel presents today for a neurological consultation at the request of Ailin Green CNP for unsteady gait, generlized weakness, falls. Pt was seen at [facility] labs, U/A, PET scan, ECG and [...] , wrist extensors , wrist flexor , rfid developer strength 4-/5. LUE Strength deltoid , biceps , triceps , wrist extensors , wrist flexor , rfid developer strength 4-/5. RLE Strength illopsoas, quadriceps, tibialis [...] reflex 2+ . Flowers's sign negative. Coordination: Jprdhg-bq-yjjo testing and rapid alternating movements are normal [...] plan, and return instructions documented in this encounterSSM Health [id number] History of Present illness Narrative* Kathleen Alan [...] The right CROS was coupled to 2S financial writer with a 10 mm open dome. The left hearing aid was coupled to a Signia custom canal lock earmold. Patient does not use a smart phone. Patient did not want to schedule a follow up dueto his health and many appointments. Patient's states she will call for follow up. Cosigned by FRANKIE Spears at 06/17/2024 11:28 AM EST documented in this encounterSSM Health [id number] NoteGeneral Surgery Office/Clinic Note Chief Complaint consultation [...] nodes of axilla and upper limb) plan mavhzl-f-cdpf insertion for chemotherapy; informed consent obtained. Ancef [...] Smokeless Tobacco Use:. House (more content not included)...[facility] HospitalComment on above: Result Comment: Electronically Signed By: AIRAM ELLIS, Jassi Rodney\Date and Time Signed: 06/03/24 10:41 [id number] History of Present illness Narrative* Yanna Harrison, CCC-A - 05/26/2024 1:00 PM EDT History: Pt [...] eligible for hearing aids through his [facility] [employer] Benefit. Recommend a custom mold for the left ear. Ear impression taken of left ear without incident. Pt ordered mid level technology. Order completed in [employer] portal and pt scheduled for HAF 06-16-24 in [place]. documented in this encounterSSM Health [id number] Hospital Discharge instructions Follow Up Care 02/15/2024 09:24:50 With:DONN ELLIS, Moody Aranda, URL Address: [facility] [address] [place] [address]- When: Unknown [facility] 06-17-2024 NoteChief Complaint Referral *LUTs HPI Staff [...] yo male new pt referred by Ailin Peter INSTRUMENT LENS GRINDER APPRENTICE due to LUTS. 1. BPH with obstruction/lower [...] for malignant neoplasmof prostat (more content not included)...German HospitalComment on above:Result Comment: Electronically Signed By: Moody [...] urethra. Follow these instructions at home: Take oida-nxd-slizqod and prescription medicines only as told by [...] provider. Document Revised: 02/08/2022 Document Reviewed: 02/08/2022 [employer] Patient Education 2022 [employer]. Follow Up Care 09/13/2023 09:26:56 With:DONN ELLIS, Moody Aranda, URL Address: [facility] [address], [place] [address]- When: Unknown [facility] evaluation + Plan note No data available for this section [facility] evaluation + Plan note Future Appointments Appointment Date:06/09/2024 10:45:00 AM Scheduled Provider:Moody POP MD Location:[facility] Appointment Type:URO Office Visit [facility] [place] Evaluation noteNo assessment information available [facility] Work Phone: Evaluation note* Diagnosis Sudden idiopathic [...] body region (CMS-HCC) documented in this encounter [facility]* Diagnosis Lymphoma, unspecified body [...] both ears- Primary [facility]* Diagnosis Hodgkin lymphoma, unspecified Hodgkin lymphoma type, unspecified body region (HCC)- Primary documented in this encounter [facility] [place] note* Diagnosis Hodgkin lymphoma, unspecified Hodgkin lymphoma type, unspecified body region (HCC)- Primary documented in this encounter [facility] [place] note* Diagnosis Hodgkin lymphoma, unspecified Hodgkin lymphoma type, unspecified body region (HCC)- Primary [facility]* Diagnosis Hodgkin lymphoma, unspecified Hodgkin lymphoma type, unspecified body region (HCC)- Primary documented in this encounter [facility] [place] note* Diagnosis Hodgkin lymphoma, unspecified Hodgkin lymphoma type, unspecified body region (HCC)- [facility] Diagnosis Hodgkin lymphoma, unspecified Hodgkin lymphoma type, unspecified body region (HCC) documented in this encounter [facility] note* Diagnosis Hodgkin lymphoma, unspecified Hodgkin lymphoma type, unspecified body region (HCC)- [facility] No data available for this section [facility] General Surgery [place] InstructionsNot on filedocumented in this encounter [facility] filedocumented in this encounter [facility]ructionsNot on filedocumented in this encounter [facility] SystemInstructionsNot on filedocumented in this encounter [facility] note No data available for this section [facility] reason for visit Narrative* Consultation (Routine) - ClosedSpecialtyDiagnoses / ProceduresReferred By ContactReferred To Contact Neurology Diagnoses Unsteadiness on feet Weakness Procedures [place] OFFICE/OUTPATIENT NEW LOW MDM 30 MINUTES Ailin Green MD [address] [place] [address] Phone: tel:[phone] fax: Nabeel New MD [address] [place] [address] Phone: tel: fax: Referral IDStatusReasonStart DateExpiration DateVisits RequestedVisits [id number] Consult and Treat / [facility] HealthcareReason for visit Narrative* Consultation (Routine) - Pending ReviewSpecialtyDiagnoses / ProceduresReferred By ContactReferred To Contact Physical Therapy Diagnoses Polyneuropathy Procedures [place] OFFICE/OUTPATIENT [facility] 60 MINUTES Lucas Arenas, DO [address] [place] [address] Phone: tel: fax: [facility] [address] [facility] [address] [place] [address] Phone: tel: fax: Referral IDStatusReasonStart DateExpiration DateVisits RequestedVisits [id number] Review Specialty Services Required / [facility] HealthcareReason for visit Narrative* Consultation (Routine) - Authorized SpecialtyDiagnoses / ProceduresReferred By ContactReferred To ContactPhysical Therapy Diagnoses Polyneuropathy Procedures [place] OFFICE/OUTPATIENT [facility] 60 MINUTES Lucas Arenas, DO [address] [place] [address] Phone: tel: fax: [facility] [address] [address] Phone: tel: fax: Referral IDStatusReasonStart DateExpiration DateVisits RequestedVisits [id number] Specialty Services Required / [facility] Summary [...] and content) DATE CREATED AUTHOR 01/29/2018 [facility] DATE CREATED AUTHOR AUTHOR'S ORGANIZ ATION 09/01/2021 [facility] DATE CREATED AUTHOR AUTHOR'S ORGANIZ ATION 06/08/2024 [facility] DATE CREATED AUTHOR AUTHOR'S ORGANIZ ATION 06/11/2024 [facility] DATE CREATED AUTHOR AUTHOR'S ORGANIZ ATION 09/02/2024 [facility] DATE CREATED AUTHOR AUTHOR'S ORGANIZ ATION 01/14/2025 [facility] DATE CREATED AUTHOR AUTHOR'S ORGANIZ ATION 04/04/2025 [facility] Patient Care team informatio n (unrecognized section and content) Team Status: Active Member Role Status Dates Ailin Green NP-C Primary Care Provider Active Team Status: Inactive Member Role Status Dates González Moon DO Primary Care Provider Active Sta rt: April 11, 2024 End: April 11, 2024Stmakenna Strange MDAttending ProviderActiveStart: April 11, 2024 End: April 11, 2024 Team Status: Active Member Role Status Dates Ailin Green NP-C Primary Care Provider Active Start: April 21, 2024 Nito Sunshine DOAttending ProviderActiveStart: April 21, 2024 Team Status: Inactive Member Role Status Dates Jassi Alegria MD [facility] Attending Provider Active Start: April [...] Team MemberRelationshipSpecialtyStart DateEnd Date Ailin Green MD [address] [place] [address] Referring PhysicianFamily Udngjiyg64/11/24 Ailin Green MD [address] [place] [address] Referring PhysicianFamily Mkftgzlm67/21/24Team MemberRelationshipSpecialtyStart DateEnd Ailin Green MD [address] [place] [address] Referring PhysicianFami Yrlkgoup93/11/24 Ailin Green MD [address] [place] [address] Referring PhysicianBoston [facility] Ofbdrlyq57/21/24Team MemberRelationshipSpecialtyStart DateEnd Jason Tinajero MD [address] [place] [phone] (Work) PCP - Generalmily Lwrujdaz82/11/24 Ailin Green MD [address] [place] [address] Referring PhysicianBoston [facility] Uigmorxl14/11/24 Ailin Green MD [address] [place] [address] Referring PhysicianBoston [facility] Rqwuniaq01/21/24Team MemberRelationshipSpecialtyStart DateEnd Jason Tinajero MD [address] [place] [address] PCP - [facility]Man[facility] Centerly Nzqduxyq30/11/24 Ailin Green MD [address] [place] [address] Referring PhysicianFamily Goeomlbu00/11/24 Ailin Green MD [address] [place] [address] Referring PhysicianFamily Qzdreata45/21/24Team MemberRelationshipSpecialtyStart DateEnd Jason Tinajero MD [address] [place] [address] PCP - GeneralFamily Ehkaeeeu99/11/24 Ailin Green MD [address] [place] [address] Referring Physicianmi Rbydrbbl06/11/24 Ailin Green MD [address] [place] [address] Referring Physicianmi Rgksgzdf01/21/24Team MemberRelationshipSpecialtyStart End Jason Tinajero MD [address] [place] [address] PCP - Generalmily Hiwtnemy06/11/24 Ailin Green MD [address] [place] [address] Referring PhysicianFamily Hxsliach33/11/24 Ailin Green MD [address] [place] [address] Referring Physicianmi Xekebmxe83/21/24Team MemberRelationshipSpecialtyStart End Jason Tinajero MD [address] [place] [address] PCP - GeneralFamily Ykrumktw04/11/24 Ailin Green MD [address] [place] [address] Referring PhysicianFamily Kfnfejxe20/11/24 Ailin Green MD [address] [place] [address] Referring PhysicianFamily Ceeobjan67/21/24Team MemberRelationshipSpecialtyStart DateEnd Jason Tinajero MD [address] [place] [address], [place] [address] PCP - GeneralBoston [facility] Jomtsjjo37/11/24 Ailin Green MD [address] [place] [address] Referring PhysicianFami Rzjdckxf33/11/24 [place] [address] [place] [address] Referring PhysicianBoston [facility] Vvlpfewg98/21/24Team MemberRelationshipSpecialtyStart DateEnd Jason Tinajero MD [address] [place] [address] PCP - GeneralFamily Ikmattvx82/11/24 Ailin Green MD [address] [place] [address] Referring PhysicianBoston [facility] Cpaflajj30/11/24 Ailin Green MD [address] [place] [address] Referring PhysicianFami Wyvddwmv74/21/24Team MemberRelationshipSpecialtyStart DateEnd Ailin Green MD [address] [place] [address] Referring PhysicianFamily Ocbqbpon85/11/24 Ailin Green MD [address] [place] [address] Referring PhysicianFamily Vkfnrlys32/21/24 Lucas Arenas DO [address] [address] Referring PhysicianNeurolog08/07/24Team MemberRelationshipSpecialtyStart DateEnd Ailin Green MD [address] [place] [address] Referring PhysicianFamily Tnondmbk62/11/24 [place] [address] [place] [address] Referring PhysicianFamily Gwjzxbtm62/21/24 Lucas Arenas DO [address] [place] [phone] Referring PhysicianNeurology1Team MemberRelationshipSpecialtyStart DateEnd Ailin Green MD [address] [place] [address] Referring PhysicianFamily Zenffhdq93/11/24 Ailin Green MD [address] [place] [address] Referring PhysicianFamily Fiowfbij55/21/24 Lucas Arenas DO [address] [address] Referring PhysicianNeurolog08/07/24Team MemberRelationshipSpecialtyStart DateEnd Date Ailin Green MD [address] [place] [address] Referring PhysicianFamily Xwkfaptj94/11/24 Ailin Green MD [address] [place] [address] Referring PhysicianFamily Rufpgzaf51/21/24 Lucas Arenas DO [address] [place] [phone] Referring PhysicianNeurolog08/07/24Team MemberRelationshipSpecialtyStart DateEnd Ailin Green MD [address] [place] [address] Referring PhysicianFamily Zgmtuorn34/11/24 Ailin Green MD [address] [place] [address] Referring PhysicianFamily Bogxpraq58/21/24 Lucas Arenas DO [address] [place] [phone] Referring PhysicianNeurolog08/07/24Team MemberRelationshipSpecialtyStart DateEnd Date Ailin Green MD [address] [place] [address] Referring PhysicianFamily Caprrujo98/11/24 Ailin Green MD [address] [place] [address] Referring PhysicianFamily Rkhxpoos26/21/24 Lucas Arenas DO [address] [address] Referring PhysicianNeurolog08/07/24Team MemberRelationshipSpecialtyStart DateEnd Date Ailin Green MD [address] [place] [address] Referring PhysicianFamily Iqqcwufy04/11/24 Ailin Green MD [address] [place] [address] Referring PhysicianFamily Gxaxektq26/21/24 Lucas rAenas DO [address] [place] [phone] Referring PhysicianNeurolog08/07/24Team MemberRelationshipSpecialtyStart DateEnd Date Ailin Green MD [address] [place] [address] Referring PhysicianFamily Jcivyurv43/11/24 Ailin Green MD [address] [place] [address] Referring PhysicianFamily Ptxgytxx32/21/24 Lucas Arenas DO [address] [place] [address] Referring PhysicianNeurology1Team MemberRelationshipSpecialtyStart DateEnd Date Ailin Green MD [address] [place] [address] Referring PhysicianFamily Efmwhksn72/11/24 Ailin Green MD [address] [place] [address] Referring PhysicianFamily Mkpddopk03/21/24 Lucas Arenas DO [address] [address] Referring PhysicianNeurolog08/07/24Team MemberRelationshipSpecialtyStart DateEnd Date Ailin Green MD [address] [place] [address] Referring PhysicianFamily Dzcmhyqf78/11/24 Ailin Green MD [address] [place] [address] Referring PhysicianFamily Naniizpg38/21/24 Lucas Arenas DO [address] [place] [phone] Referring PhysicianNeurology1Team MemberRelationshipSpecialtyStart DateEnd Date Margo Schumacher RD [address] [facility] [place] [address] Registered DietitianNutrition09/26/24Team MemberRelationshipSpecialtyStart Date End Date Margo Schumacher RD [address] [place] [address] Registered DietitianNutrition09/26/24Team MemberRelationshipSpecialtyStart Date End Date Margo Schumacher RD [address] [place] [address] Registered DietitianNutrition09/26/24Team MemberRelationshipSpecialtyStart Date End Date Margo Schumacher RD [address] [facility] [address] [place], [facility] Registered DietitianNutrition09/26/24Team MemberRelationshipSpecialtyStart Date End Date Margo Schumacher RD [address] [facility] [facility] [address] [place] [id number] Registered DietitianNutrition09/26/24Team MemberRelationshipSpecialtyStart Date End Date Margo Schumacher RD [address] [facility] [address] [place], [facility] Registered DietitianNutrition09/26/24Team MemberRelationshipSpecialtyStart Date End Date Margo Schumacher RD [address] [facility] [address] [place], [facility] Registered DietitianNutrition09/26/24Team MemberRelationshipSpecialtyStart Date End Date Margo Schumacher RD [address] [facility] [address] [place], [facility] Registered DietitianNutrition09/26/24Team MemberRelationshipSpecialtyStart Date End Date Margo Schumacher RD [address] [place] [address] [address] [place], [facility] Registered DietitianNutrition09/26/24Team MemberRelationshipSpecialtyStart Date End Date Ailin Green CNP [address] [place] [id number] PCP - GeneralInternal Medicine12/18/[address] [facility] [place] [address] Registered DietitianNutrition09/26/24Team MemberRelationshipSpecialtyStart Date End Date Jason Tinajero MD [address] [place] [address] PCP - GeneralFamily Ykywbybv84/11/241 Ailin Green MD [address] [place] [address] Referring PhysicianFamily Kirkvznf42/11/24 Ailin Green MD [address] [place] [address] Referring PhysicianFamily Qpqxdvau50/21/24 Lucas Arenas DO [address] [place] [phone] Referring PhysicianNeurolog08/07/24 Goals (unrecognized section and content) Goals may be documented in a n alternate section Reason for Visit (unrecogniz ed section and content) ReasonCommentsCerumen ImpactionBilateralHearing LossLateralityReasonOnset Date CommentsNeed office notes faxed08/13/2024ReasonCommentsHearing ProblemReason Onset DateCommentsCheck PT flbqcr3909/23/2024ReasonCommentsPatient EducationReason CommentsNutrition TelephoneReasonCommentsFuture AppointmentSchedule Simulation ReasonCommentsLymphomaReasonCommentsRadiotherapy On-treatment VisitReason CommentsNutrition TelephoneNo answerReasonCommentsHodgkin's Disease Source Comments (unrecognize d section and content) In the event this informatio n is protected by the Federal Confidentiality of Alcohol and Drug Abuse Patient Records regulations: The Federal rules restrict any use of the information to criminally investigate or prosecute any alcohol or drug abuse patient.[facility] HospitalIn the event this information is protected by the Federal Confidentiality of Alcohol and Drug Abuse Patient Records regulations: The Federal rules restrict any use of the information to criminally investigate or prosecute any alcohol or drug abuse patient.[facility] HospitalIn the event this information is protected by the Federal Confidentiality of Alcohol and Drug Abuse Patient Records regulations: The Federal rules restrict any use of the information to criminally investigate or prosecute any alcohol or drug abuse patient.[facility] HospitalIn the event this information is protected by the Federal Confidentiality of Alcohol and Drug Abuse Patient Records regulations: The Federal rules restrict any use of the information to criminally investigate or prosecute any alcohol or drug abuse patient.[facility] HospitalIn the event this information is protected by the Federal Confidentiality of Alcohol and Drug Abuse Patient Records regulations: The Federal rules restrict any use of the information to criminally investigate or prosecute any alcohol or drug abuse patient.[facility] HospitalIn the event this information is protected by the Federal Confidentiality of Alcohol and Drug Abuse Patient Records regulations: The Federal rules restrict any use of the information to criminally investigate or prosecute any alcohol or drug abuse patient.[facility] HospitalIn the event this information is protected by the Federal Confidentiality of Alcohol and Drug Abuse Patient Records regulations: The Federal rules restrict any use of the information to criminally investigate or prosecute any alcohol or drug abuse patient.[facility] HospitalIn the event this information is protected by the Federal Confidentiality of Alcohol and Drug Abuse Patient Records regulations: The Federal rules restrict any use of the information to criminally investigate or prosecute any alcohol or drug abuse patient.[facility] HospitalIn the event this information is protected by the Federal Confidentiality of Alcohol and Drug Abuse Patient Records regulations: The Federal rules restrict any use of the information to criminally investigate or prosecute any alcohol or drug abuse patient.[facility] HospitalIn the event this information is protected by the Federal Confidentiality of Alcohol and Drug Abuse Patient Records regulations: The Federal rules restrict any use of the information to criminally investigate or prosecute any alcohol or drug abuse patient.[facility] HospitalIn the event this information is protected by the Federal Confidentiality of Alcohol and Drug Abuse Patient Records regulations: The Federal rules restrict any use of the information to criminally investigate or prosecute any alcohol or drug abuse patient.[facility] HospitalIn the event this information is protected by the Federal Confidentiality of Alcohol and Drug Abuse Patient Records regulations: The Federal rules restrict any use of the information to criminally investigate or prosecute any alcohol or drug abuse patient.[facility] HospitalIn the event this information is protected by the Federal Confidentiality of Alcohol and Drug Abuse Patient Records regulations: The Federal rules restrict any use of the information to criminally investigate or prosecute any alcohol or drug abuse patient.[facility] HospitalIn the event this information is protected by the Federal Confidentiality of Alcohol and Drug Abuse Patient Records regulations: The Federal rules restrict any use of the information to criminally investigate or prosecute any alcohol or drug abuse patient.[facility] HospitalIn the event this information is protected by the Federal Confidentiality of Alcohol and Drug Abuse Patient Records regulations: The Federal rules restrict any use of the information to criminally investigate or prosecute any alcohol or drug abuse patient.[facility] FOR RECORDS PERTAINING TO PATIENTS WHO [...] PRIMARY CLINICAL RECORDS. [facility] Carbonated Content [facility]. provides no warranty or guarantee of the accuracy or completeness of information in this document.
== END 2025-06-09 10:58 | disposition home or self-care (01) ==
LOC: HEMC 10:57
PROVIDERS: PCP Nurse Practitioner Family; Visit Provider Internal Medicine Hematology & Oncology
DX: C85.11 Unspecified B-cell lymphoma, lymph nodes of head, face, and neck (principal); R74.01 Elevation of levels of liver transaminase levels; D50.9 Iron deficiency anemia, unspecified; D64.9 Anemia, unspecified; C81.18 Nodular sclerosis Hodgkin lymphoma, lymph nodes of multiple sites; Z79.899 Other long term (current) drug therapy; Z91.81 History of falling; R53.83 Other fatigue; H91.90 Unspecified hearing loss, unspecified ear; D70.1 Agranulocytosis secondary to cancer chemotherapy; Z80.3 Family history of malignant neoplasm of breast; R62.7 Adult failure to thrive; R00.0 Tachycardia, unspecified
CPT/HCPCS: G0463

== ENCOUNTER 2025-07-14 14:35 | Outpatient (OUT) | payer MEDICARE, SELFPAY ==
--- OUTSIDE RECORDS SUMMARY | 2025-07-14 14:41 | XMS_ITS | CCD ---
Author Organization [facility] Care Team Providers Care Chain Mender Name Role Phone PHYSICIAN, DEFAULT Unavailable Unavailable [...] Unavailable AILIN BAKER Attending Unavailable SAMUEL, AILIN Consulting Unavailable SAMUEL, AILIN Primary Care Unavailable AILIN BAKER Attending Unavailable NEVILLE MATA Primary Care Unavailable SAMUEL, AILIN Consulting Unavailable SAMUEL, AILIN Admitting Unavailable ILAN TODD Attending Unavailable ILAN TODD Consulting Unavailable ILAN TODD Admitting Unavailable SAMUEL, AILIN Primary Care Unavailable AMARIS WAKLER Consulting Unavailable AILIN GREEN Primary Care Physician DO González Moon Primary Care Provider [phone] MD Nabeel Strange Attending Provider MD Jassi Alegria Attending Provider [phone] Ailin Green MD Unavailable Ailin Green MD Unavailable MD Sonia Donnelly Attending Provider MEHRDAD Green Primary Care Provider Jassi Alegria Attending Unavailable Jassi Alegria Admitting Unavailable González Moon Primary Care Unavailable Nabeel Strange Admitting Unavailable Nabeel Strange Attending Unavailable Ailin Green Primary Care Unavailable Sonia Donnelly Attending Unavailable Sonia Donnelly Admitting Unavailable Jason Tinajero MD Primary Care Provider [phone] Primary Care Provider Unavailbraeden Arenas DO, Christopher Unavailable [phone] CLEVE QUINN Attending Unavailable DEEPA, CHRISTOPHER Referring Unavailable ALFONSO HARRISON Attending Unavailable DEEPA, CHRISTOPHER Attending Unavailable AILIN GREEN Referring Unavailable LILLIAN NAGEL Attending Unavailable LILLIAN NAGEL Attending Unavailable DEEPA, CHRISTOPHER Attending Unavailable DEEPA, CHRISTOPHER Attending Unavailable CLEVE QUINN Attending Unavailable DEEPA, CHRISTOPHER Referring Unavailable AUREA SANCHEZ Attending Unavailable DEEPA, CHRISTOPHER Referring Unavailable Unavailable Primary Care Provider UnavailMargo Garcia RD Unavailable [phone] Ailin Green CNP Primary Care Provider [phone] CATRACHITO, RG Referring Unavailable CATRACHITO, RG Referring Unavailable CATRACHITO, RG Attending Unavailable MEI SONIA Referring Unavailable CATRACHITO, RG Referring Unavailable [...] Unavailable CATRACHITO, RG Referring Unavailable AILIN GREEN Primary Care Unavailable CATRACHITO, RG Referring Unavailable [...] Unavailable Jason Tinajero MD Primary Care Provider [phone] Deepa Lucas RIVERA Unavailable Jassi ALEGRIA Attending Unavailable Allergies Allergy ClassificationReported Allergen(s)Allergy TypeDate of OnsetReaction(s) Facility (2 sources)No Known Allergies; Translations: [No Known Allergies]Propensity to adverse reactions (disorder)07-13-4148Vzu [facility] Repository (1 source)Unable to AssessDrug allergy (disorder)55-86-8542[facility] (15 sources)no latex allergy [Other]Propensity to adverse sezbyetnl70-78-2295 [facility] (1 source)OTHER; Translations: [OTHER]Propensity to adverse reactions (disorder) 83-40-7418[facility] (1 source)empagliflozin; Translations: [EMPAGLIFLOZIN]Drug Dxbfbed11-85-9701 [facility] Repository (1 source)No Known Medication Allergies; Translations: [No Known Medication Allergies]Propensity to adverse reactions (disorder)[facility] Repository Medications Current Medications MedicationDrug Class(es)DatesSig (Normalized)Sig (Original)amLODIPine 10 mg oral tablet (1 source)Dihydropyridine Calcium Channel BlockerStart: 95-36-9694gwAEDQDpkh 10 mg Tab 90 tab(s), 0 Refill(s), Refills(s) 0 Start Date: 01/21/24 Status: Ordered apixaban 5 mg oral tablet (20 sources)Factor Xa InhibitorStart: 29-05-3938ffchgsqd (ELIQUIS) 5 mg tab(s) Take 5 mg by mouth. 06/15/2024 Activeatorvastatin 10 mg oral tablet (20 sources)HMG-CoA Reductase InhibitorStart: 03-28-2024 End: 97-02-1476tbifdggnlwqr (LIPITOR) 10 mg tablet Take 10 mg by mouth. 03/28/2024 03/28/2025 ActiveStart: 68-24-6202mcdhlgkfjilv 40 mg Tab 90 tab(s), 0 Refill(s), Refills(s) 0 Start Date: 01/21/24 Status: Orderedcarvedilol 6.25 mg oral tablet (4 sources)alpha-Adrenergic Erick, beta-Adrenergic BlockerStart: 04-30-2024 take 1 tablet by mouth once dailycarvedilol 6.25 mg Tab 6.25 mg = 1 tab(s), Oral, Daily, Refills(s) 0 Start Date: 04/30/24 Status: OrderedStart: 01-21-2024 carvedilol 6.25 mg Tab 0 Refill(s), Refills(s) 0 Start Date: 01/21/24 Status: Tqmwnqr27 hr dilTIAZem hydrochloride 240 mg extended release oral capsule (20 sources)Calcium Channel BlockerStart: 06-39-6903fqoTEZLli CD (CARDIZEM CD, CARTIA XT) 240 mg 24 hr capsule Take 240 mg by mouth. 06/15/2024 ActiveStart: 14-94-5986wdvn 1 capsule by mouth every twenty-four hours in the morning dilTIAZem CD (CARDIZEM CD) 240 mg 24 hr capsule Take 1 capsule (240 mg total) by mouth in the morning. 06/15/2024 Activeempagliflozin 25 mg oral tablet (1 source)Sodium-Glucose Cotransporter 2 InhibitorStart: 30-39-2382Sbazrfwwt 25 mg oral tablet 90 tab(s), 0 Refill(s), Refills(s) 0 Start Date: 01/21/24 Status: Ordered3 ml insulin glargine 100 unt/ml pen injector (20 sources)Insulin AnalogStart: 98-90-3038Ugcagd Solostar Pen 100 units/mL subcutaneous solution 20 unit(s), SubCutaneous, Once a day (at bedtime), Refills(s) 0 Start Date: 04/25/24 Status: Orderedinsulin glargine (LANTUS) 100 unit/mL injection Inject subcutaneously. Activeinject 20 [IU] by subcutaneous injection at bedtimeinsulin glargine (Lantus) 100 UNIT/ML injection Inject 20 Units under the skin at bedtime Activeliothyronine sodium 0.005 mg oral tablet (20 sources)l-TriiodothyronineStart: 11-98-5930smih 1 tablet by mouth once daily liothyronine 5 mcg Tab 5 mcg = 1 tab(s), Oral, Daily, Refills(s) 0 Start Date: 05/27/24 Status: Orderedliothyronine (CYTOMEL) 5 mcg tablet Take 10 mcg by mouth. Activelosartan potassium 100 mg oral tablet (20 sources)Angiotensin 2 Receptor BlockerStart: 38-95-3250rlyr 1 tablet by mouth once dailylosartan 100 mg Tab 100 mg = 1 tab(s), Oral, Daily, Refills(s) 0 Start Date: 01/21/24 Status: Orderedtake 1 tablet by mouth once dailylosartan (Cozaar) 50 MG tablet Take 50 mg by mouth Daily ActivemetFORMIN hydrochloride 1000 mg oral tablet (20 sources)BiguanideStart: 90-80-9331waxx 1 tablet by mouth once dailymetformin 1000 [...] 25 mg oral tablet (20 sources)beta-Adrenergic BlockerStart: 36-93-8045stcrhsgnvi tartrate, short acting, (LOPRESSOR) 25 mg tablet Take 50 mg by mouth. 07/17/2024 Activetake 1 tablet by mouth in the morningmetoprolol tartrate (Lopressor) 50 MG tablet Take 50 mg by mouth in the morning and 50 mg before bedtime. Activeondansetron 4 mg oral tablet (20 sources)Serotonin-3 Receptor AntagonistStart: 62-92-3229nxkvrecwfor 4 mg Tab as directed, Refills(s) 0 Start Date: 05/27/24 Status: OrderedStart: 05-21-2024 take 1 tablet by mouth every twenty-four hours as neededondansetron orally disintegrating (ZOFRAN ODT) 4 mg disintegrating tablet Take 4 mg by mouth at bedtime as needed. 05/21/2024 Activepantoprazole 40 mg delayed release oral tablet (20 sources)Proton Pump InhibitorStart: 35-40-3077scxrsitsamnq DR (PROTONIX) 40 mg tablet 40 mg. 06/17/2024 Activeprochlorperazine 10 mg oral tablet (2 sources)PhenothiazineStart: 80-78-3014whqzjumdiwdspstd 10 mg Tab as directed, Refills(s) 0 Start Date: 05/27/24 Status: OrderedSITagliptin 100 mg oral tablet (20 sources)Dipeptidyl Peptidase 4 InhibitorStart: 74-91-7980vaaq 1 tablet by mouth in the morningJANUVIA 100 mg tablet Take 1 tablet (100 mg total) by mouth in the morning. 01/21/2024 Activesucralfate 1000 mg oral tablet (7 sources)Aluminum ComplexStart: 51-38-2235fzfp 1 tablet by mouth at bedtime sucralfate (CARAFATE) 1 gram tablet Take 1 tablet (1 g total) by mouth in the morning and 1 tablet (1 g total) at noon and 1 tablet (1 g total) in the evening and 1 tablet (1 g total) before bedtime.07/13/2024 Activetamsulosin hydrochloride 0.4 mg oral capsule (4 sources)alpha-Adrenergic BlockerStart: 01-21-2024 End: 95-94-4207bhyj 1 capsule by mouth once dailyFlomax 0.4 mg Cap 0.4 mg = 1 cap(s), Oral, Daily, Stop taking if experiencing dizziness or lightheadedness., X 90 day(s), # 90 cap(s), Refills(s) 3, Pharmacy: [facility], 187, cm, 01/21/24 11:48:00 EDT, Height/Length Dosing, 118, kg, 01/21/24 11:48:00 EDT, Weight Dosing Start Date: 01/21/24Stop Date: 01/15/25 Status: OrderedtraMADol hydrochloride 50 mg oral tablet (2 sources)Opioid AgonistStart: 73-21-3790skxXJPVQ 50 mg Tab as directed, Refills(s) 0 Start Date: 05/27/24 Status: Ordered Completed/Discontinued Medications MedicationDrug Class(es)DatesSig (Normalized)Sig (Original)ciprofloxacin 500 mg oral tablet (4 sources)Quinolone AntimicrobialStart: 91-51-5742Cvemr 500 mg Tab 500 mg = 1 tab(s), Oral, As Directed, Patient to take 1 tab the day before procedure and the 2nd tab the day of procedure once completed, # 2 tab(s), Refills(s) 0, Pharmacy: [id number], 187, cm, 01/21/24 11:48:00 EDT, Height/Length Dosing, 118, kg, 01/21/24 11:48:00EDT, Weight Dosing Start Date: 01/21/24 Status: OrderedDULoxetine 60 mg delayed release oral capsule (2 sources)Serotonin and Norepinephrine Reuptake InhibitorStart: 02-08-2007 End: 15-04-8102gdak 1 capsule by mouth once dailyduloxetine (CYMBALTA) 60 mg ORAL CpDR Take one(1) capsule daily. 90 3 02/08/2007 09/25/2024 Discontinued (Course of therapy completed)Start: 11-12-2006 End: 02-92-5859GWALCNVG 30 MG CAP Indications: Headache(784.0) , Trigeminal nerve disorder, unspecified Take one(1) capsule daily for 2 weeks then bid 60 6 11/12/2006 09/25/2024 Discontinued (Course of therapy completed)eletriptan 40 mg oral tablet (1 source)Serotonin-1b and Serotonin-1d Receptor AgonistStart: 02-13-2007 End: 99-08-3988qudjtdfcqq (RELPAX) 40 mg ORAL Tab Indications: Headache(784.0) , Trigeminal nerve disorder, unspecified take 1 po prn severe GEORGES, may repeat once after 2 hrs (max 2/d, 3 days/week) 36 3 02/13/2007 09/25/2024 Discontinued (Course of therapy completed)esomeprazole 40 mg delayed release oral capsule (1 source)Proton Pump InhibitorStart: 02-13-2007 End: 05-14-8609ytbd 1 capsule by mouth once dailyesomeprazole (NEXIUM) 40 mg ORAL CpDR Indications: Headache(784.0) , Trigeminal nerve disorder, unspecified Take one(1) capsule daily. 90 3 02/13/2007 09/25/2024 Discontinued (Discontinued by anotherHealth Care Provider)ibuprofen 200 mg oral tablet (1 source)Nonsteroidal Anti-inflammatory DrugStart: 10-08-2006 End: 44-56-1642SXTKTJCBS 200 MG TAB 0 10/08/2006 09/25/2024 Discontinued (Course of therapy completed)indomethacin 75 mg extended release oral capsule (1 source)Nonsteroidal Anti-inflammatory DrugStart: 02-08-2007 End: 47-89-3073lwzmrezzeaxt SR (INDOCIN SR) 75 mg ORAL CpSR Indications: Headache(784.0) , Trigeminal nerve disorder, unspecified after prednisone taper, take 1 po bid 180 3 02/08/2007 09/25/2024 Discontinued (Course of therapy completed)predniSONE 10 mg oral tablet (1 source)Start: 11-12-2006 End: 88-93-1796NPSWECUKRF 10 MG TAB Indications: Headache(784.0) , Trigeminal nerve disorder, unspecified take 60mg po qd for 10 days then decrease by 10mg every 3 days 1 course 0 11/12/2006 09/25/2024 Discontinued(Course of therapy completed) Problems Active Problems Problem ClassificationProblemDateDocumented DateEpisodic/ChronicAnxiety disorders (3 sources)Aenpenp30-85-8022UowsryyWhjzuj; other and unspecified primary (2 sources)History of benign schwannoma; Translations: [Personal history of other benign neoplasm]67-98-2604BwzomgubUeoyteb dysrhythmias (2 sources)Paroxysmal atrial fibrillation; Translations: [Paroxysmal atrial fibrillation]Onset: 14-36-5687BvxdrcjOmxsbvdt mellitus without complication (5 sources)Type 2 diabetes mellitus without complications; Translations: [Diabetes mellitus]Onset: 499584-33-8102CytrokxJmkjmibp mellitus without complication (9 sources)Other abnormal glucose; Translations: [Glycosuria]Onset: 08-26-2021 EpisodicDisorders of lipid metabolism (7 sources)Hyperlipidemia, unspecified; Translations: [Hyperlipidemia]Onset: 085362-75-7783JcdoxnzFcbfeafqo hypertension (8 sources)Essential (primary) hypertension; Translations: [Hypertensive disorder]Onset: 440635-96-1073GpuuccaYjeit valve disorders (10 sources)Nonrheumatic mitral (valve) insufficiency; Translations: [Non- rheumatic mitral regurgitation ]Onset: 649690-53-5255GxwjrerJjuqwrf`s disease (13 sources)Nodular sclerosis Hodgkin lymphoma, 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; Translations: [Hodgkin disease, nodular sclerosis of lymph nodes of upper limb]Onset: 32-69-5905DixpkuvMmfgskd`s disease (2 sources)Hodgkin`s -18-0453Nxobuiubwxg of prostate (6 sources)Benign prostatic hypertrophy with outflow obstruction; Translations: [Benign prostatic hyperplasia with lower urinary tract symptoms]Onset: 36-98-0794VhikwczXgpmtvbazwytt (4 sources)Localized enlarged lymph nodes; Translations: [Localized enlarged lymph nodes]Onset: 84-62-4303FsabjkfuZxkquic and fatigue (3 sources)Asthenia; Translations: [Weakness]54-18-5496KpeufteyZdg-Hodgkin`s lymphoma (7 sources)Non-Hodgkin's lymphoma (clinical); Translations: [Non-Hodgkin lymphoma, unspecified, 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]Onset: 05-29-2024 33-99-5614FfrvbxaUybswvxoiwy deficiencies (4 sources)Undernutrition; Translations: [Unspecified protein-calorie malnutrition]62-00-6680GrcdkbbEcagr and unspecified benign neoplasm (4 sources)Acoustic neuroma; Translations: [Benign neoplasm of cranial nerves] 59-67-4713JdoslibPnhcrqm on above:Outside Source Comment: Comment on above: removed- right earOther circulatory disease (2 sources)Difficult venous yovwia94-21-7995RvkzkflqUnfcy connective tissue disease (3 sources)Other symptoms and signs involving the musculoskeletal system; Translations: [Other musculoskeletalsymptoms referable to limbs]08-20-2024 EpisodicOther diseases of bladder and urethra (2 sources)Detrusor overactivity; Translations: [Overactive bladder]Onset: 57-00-6887IpvmdcoQbysz diseases of bladder and urethra (4 sources)Overactive lossjhq59-82-2468FzemeskBkqrc diseases of veins and lymphatics (1 source)Disorder of vein; Translations: [Other specified disorders of veins] Onset: 37-83-4616KchigglnDcefb ear and sense organ disorders (5 sources)Sensorineural hearing loss, bilateral; Translations: [Sensorineural hearing loss, bilateral]23-67-9690PbavrsmYnvil ear and sense organ disorders (1 source)Asymmetrical sensorineural hearing loss; Translations: [Sensorineural hearing loss, bilateral]05-22-1989DbgeancErtcw ear and sense organ disorders (3 sources)Sudden idiopathic hearing loss; Translations: [Sudden idiopathic hearing loss, left ear]88-37-4527AplotfytIjqtt nervous system disorders (8 sources)Polyneuropathy; Translations: [Polyneuropathy, unspecified]07-10-2024 ChronicOther nervous system disorders (1 source)H/O: brain fjnmahdb13-93-5460NdtfarbgEqtbh nervous system disorders (3 sources)Poor balance; Translations: [Other abnormalities of gait and mobility]66-65-3784IvxnlfwyXhswegiii heart disease (3 sources)Pulmonary arterial utpgpgtftzgu04-69-9206ZtbntacFmmfeeql codes; unclassified (4 sources)Sleep nxyig68-03-3608TfmkxdsHooffyykxak failure; insufficiency; arrest (1 source)Dependence on supplemental oxygen; Translations: [DEPENDENCE ON SUPPLEMENTAL OXYGEN]Onset: 25-76-4657KlibpqdFjqvenefblca (3 sources)Obstructive sleep apnea (adult) (pediatric); Translations: [OBSTRUCTIVE SLEEP APNEA (ADULT) (PEDIATRIC)]Onset: 90-85-9819Yuvxorm Unclassified (8 sources)Abnormal result of other cardiovascular function study; Translations: [Encounter for screening for malignant neoplasm of prostate]Onset: 2017 EpisodicUnclassified (2 sources)Unknown / UNK(Unknown)Onset: 52-27-1565Uzioskdxhhfg (1 source)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 (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) use of oral hypoglycemic drugs; Translations: [CIGARETTE VENDOR (CURRENT) USE OF ORAL 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 DRUGS]Onset: 2017 Unclassified (4 sources)Patient encounter ssyfvg98-44-8768Ppxig infection (1 source)COVID-19; Translations: [COVID-19]Onset: 12-08-2020 Past or Other Problems Problem ClassificationProblemDateDocumented DateEpisodic/ChronicOther aftercare (1 source)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 (current) use of aspirin; Translations: [CIGARETTE VENDOR (CURRENT) USE OF ASPIRIN]Onset: 67-33-0671LnojmrgoUkhvs lower respiratory disease (1 source)Shortness of breath; Translations: [SHORTNESS OF BREATH]Onset: 43-34-9162PstnlvulMdhga lower respiratory disease (3 sources)Cough; Translations: [COUGH]Onset: 34-87-8302Ybofyyhb Results Test NameValueInterpretationReference HemdzIvrojixl65vg 06-41-027290Vfxqklxuq lab results from 03/23/2025: MD Patria Klein MA His LDL is low. He can stop atorvastatin. LM asking that patient return my call.[facility] Office Visiton 38-50-6142Uybcxc-up [id number] Nabeel Tran 1955 M Date Provider Department Center 03/23/2025 Adrián-JEROD STATON [facility] Marlene Family History Problem Relation Age of Onset Coronary artery disease Mother Family Status - Relation Status Age at Mother Father Level of Service:[address] [place] OFFICE/OUTPATIENT ESTABLISHED MOD [facility] Onlyon 93-80-3098Ckdxuo [id number] Nabeel Tran 1955 M Date Provider Department Center 02/23/2025 [id number], [facility] ELIAS Rosario Family History Problem Relation Age of Onset Coronary artery disease Mother Family Status - Relation Status [facility]alUniMer[facility] HospitalCNOVon 29-26-7649HUETDqluza Visit (RADTSA) KIMMAIDANABEEL MCKEON ([id number]) 1955 M Date Time Provider Department 12/18/24 [...] the care of Dr. Donnelly at [facility] and repeat pet imaging after the [...] of said technology/software. Referring Provider: RG WINSTON [[id number]] Allergies As of Date: 12/18/2024 Noted Allergy [...] for Encounter Date Provider Department Center 12/18/2024 [id number] WINSTONusky Encounter Status:Closed by RG WINSTON on 12/29/24[facility] 28-08-6635XHTZKpjjggrzz (RADTSA) NABEEL TRAN ([id number]) 1955 M Date Time Provider Department 12/02/24 [...] Encounter Status:Closed by ANA PAULA CHAUHAN on 12/11/24[facility] 84-26-4198QWKQLonhot Visit (JYOTIA) NABEEL TRAN ([id number]) 1955 M Date Time Provider Department 11/13/24 [...] the care of Dr. Donnelly at [facility] and repeat pet imaging after the third cycle on 09/08/2024 noted excellent metabolic response (Deauville 3). COURSE: Consolidative AREA TREATED: Right axilla/neck CURRENT DOSE: 02240 cGy in 18 fx PLANNED DOSE: 3600 [...] Rg Winston MD Referring Provider: RG WINSTON [[id number]] Allergies As of Date: 11/13/2024 Noted Allergy [...] (None) Encounter Status:Closed by RG WINSTON on 11/24/24[facility] 26-36-8968PMNNNjores Visit (RADTSA) NABEEL TRAN ([id number]) 1955 M Date Time Provider Department 11/05/24 [...] the care of Dr. Donnelly at [facility] and repeat pet imaging after the [...] (None) Encounter Status:Closed by RG WINSTON on 11/17/24[facility] 31-48-2204PBMZIrzbpv Visit (RADTSA) NABEEL TRAN ([id number]) 1955 M Date Time Provider Department 10/29/24 [...] the care of Dr. Donnelly at [facility] and repeat pet imaging after the [...] (None) Encounter Status:Closed by RG WINSTON on 11/10/24[facility] 34-10-4507IMWRZdnslq Visit (JYOTIA) NABEEL TRAN ([id number]) 1955 M Date Time Provider Department 10/21/24 [...] the care of Dr. Donnelly at [facility] and repeat pet imaging after the [...] Date Reviewed: 10/21/2024 Reviewed by: Coty Chan, BRANDAN - Fully Assessed Reason for Visit: Radiotherapy [...] (None) Encounter Status:Closed by RG WINSTON on 11/03/24[facility] 77-02-4241ARHQOLYPesaw Visit (MC) NABEEL TRAN ([id number]) 1955 M Date Time Provider Department 10/07/24 [...] Encounter Status:Closed by ANA PAULA CHAUHAN on 10/08/24[facility] 34-38-1145XGLXUiskqm Visit (RADTSA) KARENNABEEL MCKEON ([id number]) 1955 M Date Time Provider Department 09/25/24 [...] the Department of Radiation Oncology at the [facility] with Rg Winston MD. He was accompanied today by his family. Final recommendations will be communicated back to the requesting physician by way of the shared medical record, or letter to requesting physician via US mail. HISTORY OF PRESENT ILLNESS: Mr. Tran is a 69-year old gentleman [place], [place] with a history of hearing loss [...] after second review through [facility]. A second core biopsy was obtained on [...] has 2 children, and lives in the [facility]. 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 He denies tobacco or alcohol use. [...] 98% BMI 23 (more content not included)...Normal [facility] SouthwoodsCNPNon 21-19-3498QGIVMmzrstzkl (RADTSA) CHELSEANABEEL Hector ([id number]) 1955 M Date Time Provider Department 09/25/24 [...] no special instructions. Thanks! Kathleen Werner RT(R)(T) Mady Durbin 10/01/2024 8:56 AM Signed [...] (None) Encounter Status:Closed by MARJAN AVILA on 10/01/24[facility] Visiton 39-97-5546Nelgpc-up [id number] Nabeel Tran Hector 1955 M Date Provider Department Center 09/15/2024 JEROD BANKS [facility] Family History Problem Relation Age of Onset Coronary artery disease Mother Family Status - Relation Status Age at Mother Level of Service:[address] [place] OFFICE/OUTPATIENT ESTABLISHED MOD MDM 30 [facility] HospitalMLR HEMOGLOBIN A1Con 60-70-1738Hhxmxty [Mass/Vol]126 mg/dLNOMN SkxgwfmpqhGuI2j (Bld) [Mass fraction]6 %4.5 - 6.2 %NOMS HealthcareComment on above:ADA RECOMMENDED LIMIT 4.0 - 6.0 ADA THERAPEUTIC TARGET < 7.0 ACTION SUGGESTED > 7.0 CLINISYNCNOMS HealthcareEMG 2 Extremitieson 16-40-9627Xrvcqokzwhaifi which is axonal loss in type, motor predominant and severe Can not exclude radiculopathyNOMS HealthcareNOMS HealthcareNVC 9-10 Nerveson 32-46-8862Katxzytrknkzvu which is axonal loss in type, motor predominant and severe Can not exclude radiculopathyNOMS HealthcareNOMS HealthcareOffice Visiton 92-82-5594Aofnca-up [id number] Nabeel Tran H[place] 1955 M Date Provider Department Center 06/19/2024 384Rema-FABIOLA BENDER [facility] Family History Problem Relation Age of Onset Coronary artery disease Mother Family Status - Relation Status Age at Mother Level of Service:[address]678 [place] OFFICE/OUTPATIENT ESTABLISHED LOW [facility] 20 [facility] HospitalOrders Onlyon 38-16-6551Rsqxux [id number] Nabeel Tran [place] 1955 M Date Provider Department Center 06/19/2024 Rickie-JOSE ALFREDO MUNOZ [facility] Family History Problem Relation Age of Onset Coronary artery disease Mother Family Status - Relation Status [facility] SpringsNormalUniversMarietta Osteopathic ClinicECG 12-LEADon 56-37-0739[address] [address] Electrocardiograph Report Signed Patient: NABEEL TRAN MR#: [id number] : 1955 Acct:[id number] Age/Sex: 68 / M ADM Date: 06/13/24 Loc: ICU 271-[address]: Jason Tinajero M.D. Ordering Physician: Evelyn Aden Date of Service: 06/13/24 Procedure(s): ECG 12 lead Accession Number(s): [id number] cc: [facility] Test Date: 2024-06-13 Pat Name: NABEEL TRAN Department: Room: - Gender: Male Customer Experience Manager: : 1955 Requested By: [id number] Order Number: [id number] Reading MD: JASON TINAJERO Measurements Intervals [place] Rate: 120 P: 150 [place]: 214 QRS: 28 QRSD: 88 T: 90 [...] Signed By: 06/14/24 0630 DD/ 1835 TD/TT: Lighting Equipment Operator:TBHRadiology, Radiologist, MD - 06/14/2024 [place] [address] Electrocardiograph Report Signed Patient: NABEEL TRAN MR#: [id number] : 1955 Acct:[id number] Age/Sex: 68 / M ADM Date: 06/13/24 Loc: ICU 271-[address]: Jason Tinajero M.D. Ordering Physician: Evelyn Aden Date of Service: 06/13/24 Procedure(s): ECG 12 lead Accession Number(s): [id number] cc: [facility] Test Date: 2024-06-13 Pat Name: NABEEL TRAN Department: Room: - Gender: Male Customer Experience Manager: : 1955 Requested By: [id number] Order Number: [id number] Reading MD: JASON TINAJERO Measurements Intervals [place] Rate: 120 P: 150 KS: 214 QRS: 28 QRSD: 88 T: 90 [...] Jason Tinajero M.D. Signed By: 06/14/24629 DD/ 34 TD/TT: Lighting Equipment Operator: [place] [address] Electrocardiograph Report Signed Patient: NABEEL TRAN MR#: [id number] : 1955 Acct:[id number] Age/Sex: 68 / M ADM Date: 06/13/24 Loc: ICU 271-[address]: Jason Tinajero M.D. Ordering Physician: Evelyn Aden Date of Service: 06/13/24 Procedure(s): ECG 12 lead Accession Number(s): [id number] cc: [facility] Test Date: 2024-06-13 Pat Name: NABEEL TRAN Department: Room: - Gender: Male Customer Experience Manager: : 1955 Requested By: AILIN GREEN Order Number: [id number] Reading MD: JASON TINAJERO Measurements Intervals [place] Rate: 157 P: 240 KS: 134 QRS: 18 QRSD: 84 T: 109 [...] By: Jason Tinajero M.D. Signed By: 06/14/24 0629 DD/ 18 TD/TT: Lighting Equipment Operator:JAREDadiolJack vee MD - 06/14/2024 [place] [address] Electrocardiograph Report Signed Patient: NABEEL TRAN MR#: [id number] : 1955 Acct:[id number] Age/Sex: 68 / M ADM Date: 06/13/24 Loc: ICU 271-[address]: Jason Tinajero M.D. 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 Signed By: 06/14/24 0629 DD/ 18 TD/TT: Lighting Equipment Operator: KAYCE Calderon 12-LEADOrdered By: Radiologist Radiology on [id number] Work Phone: [facility] Work Phone: ECK 12-LEADon 11-59-2694Qvytrraow Study observation (narrative)KAYCE HealthcareRadiology Study observation (narrative)[facility] ISTAT XRay CREon 24-43-4313IKEHA GFR> 60.0[facility] Comment on above:Result Comment: PERFORMED BY: [place] [address] PATHOLOGIST VEHICLE DELIVERY WORKER KASSI WATERS M.D.Performed By: #### ISCRE #### [place] [address] [facility] head/brain wo/w conon 88-78-3279NO head/brain wo/w con [facility] [place] [address] [place] [address] MRI Report Signed Patient: Nabeel Tran MR#: [id number] : 1955 Acct:[id number] Age/Sex: 68 / M ADM Date: 05/29/24 Loc: MR Room: Type: [facility] Attending Dr: Sonia Donnelly MD Copies [...] Alexis Patel M.D.05/29/2024 1:38 PM Dictation Location: [place] [address] Transcribed By: [facility] 05/29/24 1338 Dictated By: Alexis Patel II, MD 05/29/24 1325 Signed By: 05/29/24 1338NoNov[facility] Physician GroupNo Panel InformationOrdered By: Sonia Donnelly on 66-46-6691Icnsgmh Estimated GFR (eGFR)> 60.0[facility] HospitalWhole blood creatinine measurementOrdered By: Sonia Donnelly on 31-47-2842Atkiipnaxg [Mass/Vol]0.8 mg/dLNormal0.6-1.3FMary Rutan HospitalComment on above:ER/ESD physician is notified/shown all ISTAT results.Critical values may be confirmed by laboratorytesting ifdeemed necessary by ER attending doctor.Result Comment: ER/ESD physician is notified/shown all ISTAT results. Critical values may be confirmed by laboratory testing if deemed necessary by ER attending doctor.Performed By: #### ISCRE #### [facility] [address] [place] [address] USAXR pre/post mri xrayon 54-28-5784UF pre/post mri xray [facility] [place] [address] [place] [address] MRI Report Signed Patient: Nabeel Tran MR#: [id number] : 1955 Acct:[id number] Age/Sex: 68 / M ADM Date: 05/29/24 Loc: MR Room: Type: [facility] Attending Dr: Sonia Donnelly MD Copies to: Sonia Donnelly MD Ordering Provider: Sonia Donnelly MD Date of Service: 05/29/24 MR/MR cervical spine wo/w con: C85.90, C85.94, C85.11 ([id number]) XR/XR pre/post mri xray: C85.90, C85.94, C85.11 [...] Alexis Patel M.D.05/29/2024 1:00 PM Dictation Location: [place] [address] Transcribed By: [facility] 05/29/24 1300 Dictated By: Alexis Patel II, MD 05/29/24 1254 Signed By: 05/29/[address] [place] [address] Physician GroupSURGICAL PATHOLOGY REFERENCE LAB CONSULTon 66-38-0453SVMGNJBR 1:[facility] on above:Order Comment: Specimen Type: FORMALIN-FIXED PARAFFIN-EMBEDDED TISSUE SPECIMENOrdering Facility: [facility] Address: [address] [place] [address] [place], [place] [address]Result Comment: Repeat MUM1 immunostain does in fact stain the focal large atypical cells. No change in final diagnosis. ABO 05/14/2024 Addendum electronically signed by Lory Vick MD, PhD on 05/14/2024 at 4:02 PMPerformed By: #### [id number] ####[facility] LABCLIA [id number] [place] [address] [place] CASE REPORTNormalCAshtabula County Medical Center on above:Order Comment: Specimen Type: FORMALIN-FIXED PARAFFIN-EMBEDDED TISSUE SPECIMENOrdering Facility: [facility] Address: [address] [place], [place] [address], [place] [address]Ovlfcs Comment: Surgical Pathology Report Case: [id number] Authorizing Provider: Kin Lauren MD Collected: 05/05/2024 04:52 PM Ordering Location: [facility] Received: 05/05/2024 04:52 PM [facility] Pathologist: Lory Vick MD, PhD Specimen: Slide(s), 18 SLIDES [id number] By: #### [id number] ####[facility] LABIA [id number] [place] [id number] [place] OF AMERICACLINICAL HISTORYCONSULT REQUESTEDNoSt. Mary's Medical Center on above:Order Comment: Specimen Type: FORMALIN-FIXED PARAFFIN-EMBEDDED TISSUE SPECIMENOrdering Facility: [facility] Address: [address] [place], [place] [address], [place] [address]Ceniselrx By: #### [id number] ####[facility] CENTERIA [id number] [address] [address] [facility] CENTERDIAGNOSIS COMMENTSelect [facility]ty [facility] on above:Order Comment: Specimen Type: FORMALIN-FIXED PARAFFIN-EMBEDDED TISSUE SPECIMENOrdering Facility: [facility] Address: [address] [place], [place] [address], [place] [address]Vayhug Comment: Per the provided report, flow cytometric analysis detected no significant immunophen otypic abnormalities on the lymphocytes, with a CD4:CD8 ratio 4.4. 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 Morphologically and immunophenotypically, these large atypical cells are co mpatible with Hodgkin and Neto-Jude cells/variants. However, this tiny, focal involvement is unusual. If the patient has additional lymphadenopathy, biopsy of another site is recommended to definitely diagnose involvement by a Hodgkin lymphoma. Correlation with imaging studies is strongly recommended. This case was also reviewed by Dr. Mare Pierce ([facility] hematopathology section), who agrees with the above interpretation and final diagnosis. Thank you for sending this case in consultation. Please contact the Hematopathology Consult Service at [phone] for any questions or if blaine tional follow-up information becomes available. Laboratory Developed Test (LDT) Disclaimer: Performance characteristics of immunohistochemical, immunofluorescent and chromogenic in-situ hybridization tests have been determined by the performing laboratory within [facility]???s [facility] Laboratory Medicine Department ([facility], [facility], [facility], [facility], [facility], [facility], or [facility]) in a manner consistent with CLIA requirements. One or more of these tests havenot been cleared or approved by the FDA. RT-PLM is regulated under CLIA as qualified to perform high-complexity testing. These tests are used for clinical purposes. They should not be regarded as investigational or for research. Positive and negative controls stain appropriately.Performed By: #### [id number] ####[facility] LABCLIA [id number] [place] [id number] [place] OF [facility] CAMPUSFINAL DIAGNOSISNoUniversity Hospitals Samaritan Medical CenterComment on above:Order Comment: Specimen Type: FORMALIN-FIXED PARAFFIN-EMBEDDED TISSUE SPECIMENOrdering Facility: [facility] Address: [address] [place], [place] [address]Vwjgul Comment: Outside slides ([id number]; 04/23/2024) from [facility], [place], [place]. A. Lymph node, right axillary, excisional biopsy: - Predominantly reactive lymphoid proliferation with a single focus of atypical IL99-dvgavjum lymphocytes. - See comment. ABO 05/13/2024 Performed By: #### [id number] ####[facility] LABCLIA [id number] [place] [id number] [place] OF [facility] FINAL PERFORMING LABNoSt. Mary's Medical Center on above:Order Comment: Specimen Type: FORMALIN-FIXED PARAFFIN-EMBEDDED TISSUE SPECIMENOrdering Facility: [facility] Address: [address] [place], [place] [address]Zmtoxr Comment: Diagnostic interpretation performed at: [facility], [address] [facility], Desk [address] [address] CLIA# [id number] Learning And Development Specialist: TAYLOR Daserformed By: #### [id number] ####[facility] LABCLIA [id number] [facility] HOSPITALDESK [place]96[place]PSJ[place] [address] [place] AMERICAMICROSCOPIC DESCRIPTIONNormalCACMC Healthcare SystemComment on above:Order Comment: Specimen Type: FORMALIN-FIXED PARAFFIN- EMBEDDED TISSUE SPECIMENOrdering Facility: [facility] Address: [place] [address]Bgjyjj Comment: H&E-stained sections demonstrate fibroadipose tissue and [...] in situ hybridization stains [facility] the requested [facility] A2. The large atypical [...] area with atypical large lymphocytes.Performed By: #### [id number] ####[facility] LABCLIA [id number] [address]Lon 70-75-5645QXwkdauun: [id number] Received: 04/23/24 Status: MERNA Montemayor Num: [id number] Spec Type: Surgical Subm Dr: Jassi Alegria MD FACS Tissues: A Lymph Node - Biopsy (Needle or Incisional) (R AXILLARY LYMPH NODE BX) Procedures: CD45/2, HE/4, Gross/Micro L4, AE1-AE3, BCL-2, BCL-6, CD10, CD20, CD23, CD3, CD30/2, CD5, PAX5/2 Age/ Patient Sex Location Account Attending Physician Nabeel Tran 68/M LABELL [id number] Jassi Alegria MD FACS SPEC NUM: [id number] RECD: 04/23/24 STATUS: MERNA MONTEMAYOR NUM: [id number] RANJITH: 04/23/[address]: Jassi Alegria MD FACS ENTERED: 04/23/[address] [facility] [address]: SPEC TYPE: Surgical DEPT: LUANA MOYER ENTERED BY: [id number] RECV BY: [id number] ORDERED: CD45/2, HE/4, Gross/Micro L4, AE1-AE3, BCL-2, BCL-6, CD10, CD20, CD23, CD3, CD30/2, CD5, PAX5/2 ORDERED: CD45/2, HE/4, Gross/Micro L4, AE1-AE3, BCL-2, BCL-6, CD10, CD20, CD23, CD3, CD30/2, CD5, PAX5/2, USS/7 Supplemental Report Addendum 3 Entered: 05/15/24-1014 Supplemental for addended consultation report from [facility] Addendum -Repeat MUM1 immunostain does in fact stain the focal large atypical cells -No change in final diagnosis Addendum Signed (signature on file) Chin-Gama Lauren MD 05/15/24 1014 Addendum 2 Entered: 05/14/247728 Supplemental for findings of consultation report from [facility]: -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 Specimen: [id number] Received: 04/23/24-1321 Status: MERNA Montemayor Num: [id number] Spec Type: Surgical Subm Dr: Jassi Alegria MD FACS Tissues: A Lymph Node - Biopsy (Needle or Incisional) (R AXILLARY LYMPH NODE BX) Procedures: CD45/2, HE/4, Gross/Micro L4, AE1-AE3, BCL-2, BCL-6, CD10, CD20, CD23, CD3, CD30/2, CD5, PAX5/2 Patient: Nabeel Tran [id number] (Continued) Specimen: [id number] Received: 04/23/24 (Continued) Supplemental Report (Continued) Signed (signature on file) Trinity Lauren MD 05/01/24 1651 Specimen: [id number] Received: 04/23/24 Status: MERNA Montemayor Num: [id number] Spec Type: Surgical Subm Dr: Jsasi Alegria MD FACS Tissues: A Lymph Node - Biopsy (Needle or Incisional) (R AXILLARY LYMPH NODE BX) Procedures: CD45/2, HE/4, Gross/Micro L4, AE1-AE3, BCL-2, BCL-6, CD10, CD20, CD23, CD3, CD30/2, CD5, PAX5/2 Patient: Nabeel Tran [id number] (Continued) Specimen: [id number] Received: 04/23/242 (Continued) Supplemental Report (Continued) lymphocytes -See comment Addendum Signed (signature on file) Sandra Lauren MD 05/14/24 1437 Addendum 1 Entered: 05/07/24 Supplemental [facility] -No significant lymphoid immunophenotypic abnormalities detected Addendum Signed (signature on file)Kavon Lauren MD 05/07/24 0944 Pathological Diagnosis Right [...] no significant lymphoid (more content not included)...NormalAdventhealth Oviedo Er Physician GroupSURGICAL PATHOLOGY REFERENCE LAB CONSULTon [id number] REPORT [facility] on above:Order Comment: Specimen Type: FORMALIN-FIXED PARAFFIN-EMBEDDED TISSUE SPECIMENOrdering Facility: [facility] Address: [address] [place] [place] [phone] Result Comment: Surgical Pathology Report Case: [id number] Authorizing Provider: Kin Lauren MD Collected: 04/18/2024 08:55 AM Ordering Location: [facility] Received: 04/18/2024 08:55 AM [facility] Pathologist: Crystal Mesa MD, PhD Specimen: Slide(s), 2 SLIDES [id number] By: #### [id number] ####[facility] LABCLIA [id number] [place] [address] [place] AMERICACLINICAL HISTORYCONSULT REQUESTEDNoSt. Mary's Medical Center on above:Order Comment: Specimen Type: FORMALIN-FIXED PARAFFIN-EMBEDDED TISSUE SPECIMENOrdering Facility: [facility] Address: [address] [place] [place] [phone] By: #### [id number] ####[facility] LABCLIA [id number] [place] [id number] [place] STATES OF AMERICADIAGNOSIS COMMENT NormalMercy Health [facility] on above:Order Comment: Specimen Type: FORMALIN-FIXED PARAFFIN-EMBEDDED TISSUE SPECIMENOrdering Facility: [facility] Address: [address] [place], [place] [address] Result Comment: Thank you for sharing this case in consultation. Per report, flow cytometry was sent on this specimen but is not yet available. The specimen is cut through on an initial deeper level section received. Greater sampling is recommended if feasible, if it is clinically indicated to further characterize this process. Please do not hesitate to contact the Hematopathology Consult Service at [phone] for any questions or if additional follow-up information becomes available.Performed By: #### [id number] ####[facility] LABCLIA [id number] [place] [id number] [facility] OF DEIRDRE FINAL DIAGNOSISNormCleveland Clinic [facility] on above:Order Comment: Specimen Type: FORMALIN-FIXED PARAFFIN-EMBEDDED TISSUE SPECIMENOrdering Facility: [facility] Address: [address] [place], [place] [address]Result Comment: A. Outside materials received from [facility], [place], [place] (External ID [id number], 04/14/24) Right axillary lymph node, core biopsy: -Extremely limited specimen compatible with malignancy, see comment. [facility] April 18, 2024 Performed By: #### [id number] ####[facility] LABCLIA [id number] [place] [id number] [place] FINAL PERFORMING LABNormCleveland Clinic [facility]on Hospital on above:Order Comment: Specimen Type: FORMALIN-FIXED PARAFFIN-EMBEDDED TISSUE SPECIMENOrdering Facility: [facility] Address: [address] [place] [place] [phone] Comment: Diagnostic interpretation performed at: [facility], [address] [facility], [place] [address] CLIA# [id number] Learning And Development Specialist: TAYLOR Daserformed By: #### [id number] ####[facility] LABIA [id number] [address] STATES OF AMERICAMICROSCOPIC DESCRIPTIONHistologic sections demonstrate multiple [...] is exhausted to further characterize this limited sample.NormalThe Surgical Hospital At SouthwoodsComment on above:Order Comment: Specimen Type: FORMALIN-FIXED PARAFFIN-EMBEDDED TISSUE SPECIMENOrdering Facility: [facility] Address: [address] [place] [place] [phone] By: #### [id number] ####[facility] LABIA [id number] [address] STATES OF AMERICALon 87-38-7758WFnsvopsq: [id number] Received: 04/14/241044 Status: MERNA Montemayor Num: [id number] Spec Type: Surgical Subm Dr: Nabeel Strange MD Tissues: A Lymph Node - Biopsy (Needle or Incisional) (R AXILLA LYMPH NODE) B Gross Only (LYMPH NODE) Procedures: HE/2, Gross/Micro L4, Level 1 Gross Age/ Patient Sex Location Account Attending Physician Nabeel Tran 68/M LABEL [id number] Nabeel Strange MD SPEC NUM: [id number] RECD: 04/14/24 STATUS: MERNA MONTEMAYOR NUM: [id number] RANJITH: 04/11/24- SUBM DR: Nabeel Strange MD ENTERED: 04/14/[address] [facility] [address]: [place] Pierce SPEC TYPE: Surgical DEPT: LUANA MOYER ENTERED BY: [id number] RECV BY: [id number] ORDERED: HE/2, Gross/Micro L4, Level 1 Gross ORDERED: HE/2, Gross/Micro L4, Level 1 Gross Supplemental Report Addendum 2 Entered: 04/21/24-1307 Supplemental for findings of consultation report from [facility]: A, -Extremity limited specimen compatible with malignancy, see comment Addendum Signed (signature on file) Trinity Lauren MD 04/21/24 1307 Addendum 1 Entered: 04/18/248792 Supplemental for findings of flow cytometry report from [facility]: -Tests canceled -This test is canceled due to poor sample quality / poor viability Specimen: [id number] Received: 04/14/24-5 Status: MERNA Montemayor Num: [id number] Spec Type: Surgical Subm Dr: Nabeel Strange MD Tissues: A Lymph Node - Biopsy (Needle or Incisional) (R AXILLA LYMPH NODE) B Gross Only (LYMPH NODE) Procedures: HE/2, Gross/Micro L4, Level 1 Gross Patient: Nabeel Tran [id number] (Continued) Specimen: [id number] Received: 04/14/24 (Continued) Supplemental Report (Continued) Signed (signature on file) Trintiy Lauren MD 04/17/241126 Specimen: [id number] Received: 04/14/24 Status: MERNA Montemayor Num: [id number] Spec Type: Surgical Subm Dr: Nabeel Strange MD Tissues: A Lymph Node - Biopsy (Needle or Incisional) (R AXILLA LYMPH NODE) B Gross Only (LYMPH NODE) Procedures: HE/2, Gross/Micro L4, Level 1 Gross Patient: Nabeel Tran [id number] (Continued) Specimen: [id number] Received: 04/14/24-1045 (Continued) Supplemental Report (Continued) Addendum [...] sent to an outside facility. DM Specimen: [id number] Received: 04/14/24 Status: MERNA Montemayor Num: [id number] Spec Type: Surgical Subm Dr: Nabeel Strange MD Tissues: A Lymph Node - Biopsy (Needle or Incisio (more content not included)... NormalThe [facility] Physician GroupINSULINon 36-05-4525Ignztar28.2 uIU/mLNormal 2.6-24.9The [facility] HospitalComment on above:Performed By: #### INSULIN #### [facility] [address] [place] [address] Dr. Forrest Lares AUTO DIFFon 48-82-8400IECN #0.1 103/ulNormal0.0-0.1The [facility] HospitalComment on above:Performed By: #### PSASC #### [facility] [address] [place] [address] [address] Forrest LaurenBasophils/100 WBC (Bld)0.8 %Normal0.2-2.0[facility] Comment on above:Performed By: #### PSASC #### [facility] [address] [place] [address] [address] Forrest Riojas #0.4 103/ulNormal0.0-0.7The [facility] HospitalComment on above: Performed By: #### PSASC #### [facility] [address] [place] [address] [address] Forrest Higginsosinophils/100 WBC (Bld)4.8 %Normal0.9-7.0The [facility] Comment on above:Performed By: #### PSASC #### [facility] [address] [place] [address] Dr. Forrest Higginsrythrocyte distribution width (RBC) [Ratio]12.7 %Tmkfwf53.0-15.0 The [facility] HospitalComment on above:Performed By: #### PSASC #### [facility] [address] [place] [address] Dr. Forrest Tolentinoatocrit (Bld) [Volume fraction]48.3 %Ssajjn29.0-54.0The [facility] HospitalComment on above:Performed By: #### PSASC #### [facility] [address] [place] [address] Dr. Forrest LaurenHemoglobin (Bld) [Mass/Vol]16.4 g/cCLrizfq01.0-18.0The [facility] HospitalComment on above:Performed By: #### PSASC #### [facility] [address] [place] [address] Dr. Forrest Walden #0.05 10e3/ulCritically high0.00-0.03The [facility] Comment on above:Performed By: #### PSASC #### [facility] [address] [place] [address] Dr. Forrest Walden %0.6 %Critically high0.0-0.5The [facility] HospitalComment on above:Performed By: #### PSASC #### [facility] [address] [place] [address] Dr. Forrest Flowers #2.0 103/ulNormal1.2-3.8The [facility] HospitalComment on above:Performed By: #### PSASC #### [facility] [address] [place] [address] Dr. Forrest Wildhocytes/100 WBC (Bld)22.6 %Pzdxvz23.5-60.0The [facility] HospitalComment on above:Performed By: #### PSASC #### [facility] [address] [place] [address] Dr. Forrest PalmerUAL DIFF REQNONormalThe [facility] HospitalComment on above: Performed By: #### PSASC #### [facility] [address] [place] [address] Dr. Forrest Merlos (RBC) [Entitic mass]29.8 otVfpjbw58.9-34.0The [facility] HospitalComment on above:Performed By: #### PSASC #### [facility] [address] [place] [address] Dr. Forrest Prakash (RBC) [Mass/Vol]34.0 g/eIBewecn32.9-35.2The [facility] HospitalComment on above:Performed By: #### PSASC #### [facility] [address] [place] [address] Dr. Forrest Prakash (RBC) [Entitic vol]87.8 mOLsbgxh41.0-94.0The [facility] HospitalComment on above:Performed By: #### PSASC #### [facility] [address] [place] [address] Dr. Forrest Banks #0.7 103/ulNormal0.3-0.8The [facility] HospitalComment on above:Performed By: #### PSASC #### [facility] [address] [place] [address] Dr. Forrest Centenoocytes/100 WBC (Bld)8.0 %Normal1.7-12.0The [facility] Comment on above:Performed By: #### PSASC #### [facility] [address] [place] [address] Dr. Forrest Dover #5.7 103/ulNormal1.4-6.5The [facility] HospitalComment on above:Performed By: #### PSASC #### [facility] [address] [place] [address] Dr. Forrest Finnutrophils/100 WBC (Bld)63.2 %Qpjfdp47.0-75.0The [facility] HospitalComment on above:Performed By: #### PSASC #### [facility] [address] [place] [address] Dr. Forrest Mosslet mean volume (Bld) [Entitic vol]9.7 fLNormal9.5-13.5The [facility] HospitalComment on above:Performed By: #### PSASC #### [facility] [address] [place] [address] [address] Forrest LaurenPLT242 103/jbUxxxhx037-664Qqd [facility] HospitalComment on above: Performed By: #### PSASC #### [facility] [address] [address] [address] Forrest LaurenRBC5.50 106/ulNormal4.70-6.10The [facility] HospitalComment on above:Performed By: #### PSASC #### [facility] [address] [address] [address] Forrest LaurenWBC9.0 103/ulNormal4.0-11.0The [facility] HospitalComment on above: Performed By: #### PSASC #### [facility] [address] [place] [address] Dr. Forrest LaurenGLYCOHEMOGLOBIN A1Con 29-80-2949GTQ RECOMMENDATIONADA THERAPEUTIC TARGET 6.0 - 7.0 ACTION SUGGESTED > 7.0[facility] TriPoint Medical CenterComment on above:Performed By: #### A1C #### [facility] [address] [place] [address] Dr. Forrest LaurenGlucose [Mass/Vol]194 mg/dLNoSumma Health Wadsworth - Rittman Medical CenterComment on above:Performed By: #### A1C #### [facility] [address] [place] [address] Dr. Forrest LaurenHbA1c (Bld) [Mass fraction]8.4 %Critically high<=6.0The [facility] HospitalComment on above:Performed By: #### A1C #### [facility] [address] [place] [address] Dr. Forrest LaurenLIPID PROFILEon [id number]-HDL RATIO NORMSEE [facility] HospitalCom[facility] on above:Result Comment: 3.3 - 4.4 LOW RISK 4.4 - 7.1 AVERAGE RISK 7.1 - 11.0 MODERATE RISK >11.0 HIGH RISKPerformed By: #### PSASC #### [facility] [address] [place] [address] Dr. Forrest LaurenCholesterol [Mass/Vol]117 mg/dLNormal<=200[facility] Comment on above:Performed By: #### PSASC #### [facility] [address] [place] [address] Dr. Forrest LaurenCholesterol in HDL [Mass/Vol]43 mg/dLUniversity Hospitals [facility]Point [facility] Center Comment on above:Performed By: #### PSASC #### [facility] [address] [address] [address] Forrest LaurenCholesterol in LDL [Mass/Vol]45.6 mg/dLUniversity Hospitals TriPoint Medical CenterComment on above:Performed By: #### PSASC #### [facility] [address] [place] [address] Dr. Forrest Thakur.total/Cholesterol in HDL [Mass ratio]2.7 {ratio} NormalMercy Health St. Charles HospitalComment on above:Performed By: #### PSASC #### [facility] [address] [place] [address] Dr. Forrest Fields NORMAL> or = 60 mg/dl - LOW CARDIOVASCULAR RISK <40 mg/dl - HIGH CARDIOVASCULAR RISKUniversity Hospitals TriPoint Medical CenterComment on above:Performed By: #### PSASC #### [facility] [address] [place] [address] Dr. Forrest Hernández CALC NORMALSEE BELOWUniversity Hospitals TriPoint Medical CenterComment on above:Result Comment: <100 mg/dl OPTIMAL 100 - 129 mg/dl NEAR OR ABOVE OPTIMAL 130 - 159 mg/dl BORDERLINE HIGH 160 - 189 mg/dl HIGH >190 mg/dl VERY HIGH Performed By: #### PSASC #### [facility] [address] [place] [address] Dr. Forrest LaurenTriglyceride [Mass/Vol]142 mg/dLNormal<=150[facility] Comment on above:Performed By: #### PSASC #### [facility] [address] [place] [address] Dr. Forrest JaramilloLDL CALC28.4 mg/dLUniversity Hospitals TriPoint Medical CenterComment on above: Performed By: #### PSASC #### [facility] [address] [address] [address] Forrest SearsF 14(COMP METB)on 49-55-9875Pswbxpi [Mass/Vol]4.1 g/dLNormal 3.5-5.0The [facility] HospitalComment on above:Performed By: #### PSASC #### [facility] [address] [place] [address] Dr. Forrest LaurenAlbumin/Globulin [Mass ratio]1.2 {ratio}NormalThe [facility] HospitalComment on above:Performed By: #### PSASC #### [facility] [address] [place] [address] Dr. Forrest AguilarP [Catalytic activity/Vol]82 U/BFeybax45-639Njb [facility] HospitalComment on above:Performed By: #### PSASC #### [facility] [address] [place] [address] Dr. Forrest AguilarT [Catalytic activity/Vol]38 U/VLuwoir44-69Jnm [facility] HospitalComment on above:Performed By: #### PSASC #### [facility] [address] [place] [address] Dr. Forrest Medeiros gap [Moles/Vol]12.7 mmol/LNormalThe [facility] Comment on above:Performed By: #### PSASC #### [facility] [address] [place] [address] Dr. Forrest LaurenAST [Catalytic activity/Vol]18 U/DUlznyb15-51Yxn [facility] HospitalComment on above:Performed By: #### PSASC #### [facility] [address] [place] [address] Dr. Forrest LaurenBilirubin [Mass/Vol]1.2 mg/dLNormal0.2-1.3The [facility] Comment on above:Performed By: #### PSASC #### [facility] [address] [place] [address] Dr. Forrest LaurenCalcium [Mass/Vol]9.7 mg/dLNormal8.4-10.2[facility] Comment on above:Performed By: #### PSASC #### [facility] [address] [address] [address] Forrest LaurenChloride [Moles/Vol]102 mmol/ZHddrmr33-289Muf [facility] Comment on above:Performed By: #### PSASC #### [facility] [address] [address] [address] Forrest LaurenCO2 [Moles/Vol]30.6 mmol/LCritically high22.0-30.0The [facility] HospitalComment on above:Performed By: #### PSASC #### [facility] [address] [address] [address] Forrest LaurenCreatinine [Mass/Vol]1.09 mg/dLNormal0.66-1.25The [facility] HospitalComment on above:Performed By: #### PSASC #### [facility] [address] [address] [address] Clayton ChangEGFR-AF SOUTH SUDANESE>60Normal>=60The [facility] HospitalComment on above:Performed By: #### PSASC #### [facility] [address] [address] [address] Forrest HigginsGFR-NON AF SOUTH SUDANESE>60Normal>=60The [facility] HospitalComment on above:Performed By: #### PSASC #### [facility] [address] [address] [address] Forrest LaurenGlobulin (S) [Mass/Vol]3.4 g/dLNormalThe [facility] HospitalComment on above:Performed By: #### PSASC #### [facility] [address] [address] [address] Forrest LaurenGlucose [Mass/Vol]238 mg/dLCritically fzlh70-045Jjq [facility] HospitalComment on above:Performed By: #### PSASC #### [facility] [address] [address] [address] Forrest LaurenPotassium [Moles/Vol]4.3 mmol/LNormal3.4-5.0The [facility] Comment on above:Performed By: #### PSASC #### [facility] [address] [address] [address] Forrest LaurenProtein [Mass/Vol]7.5 g/dLNormal6.1-8.2The [facility] Comment on above:Performed By: #### PSASC #### [facility] [address] [place] [address] Dr. Forrest LaurenSodium [Moles/Vol]141 mmol/QTfvkdg183-587Gue [facility] Comment on above:Performed By: #### PSASC #### [facility] [address] [place] [address] Dr. Forrest LaurenUrea nitrogen [Mass/Vol]20.0 mg/dLNormal9.0-20.0The [facility] HospitalComment on above:Performed By: #### PSASC #### [facility] [address] [place] [address] Dr. Forrest LaurenUrea nitrogen/Creatinine [Mass ratio]18.3 mg/mgNormalThe [facility] HospitalComment on above:Performed By: #### PSASC #### [facility] [address] [place] [address] Dr. Forrest LaurenURIC ACID SERUMon [id number] [Mass/Vol]4.8 mg/dLNormal 3.5-8.5The [facility] HospitalComment on above:Performed By: #### PSASC #### [facility] [address] [place] [address] Dr. Forrest Gonzálesvid-19 PCR (CVDTB)on 72-30-6565Wyfnbe TypeTest performed using RT-PCR from a nasopharyngeal collected specimen.NormalThe [facility] Comment on above:Performed By: #### PSASC #### [facility] [address] [place] [address] Dr. Forrest Machuca-CoV-2 (COVID-19) RNA MERA+probe Ql (Unsp spec)Detected AbnormalNOT DETECTEDThe [facility] HospitalComment on above:Result Comment: This test is not yet approved or cleared by the [place] FDA. When there are no FDA-approved or cleared tests available, and other criteria are met, FDA can make tests available under an emergency access mechanism called an Emergency Use Authorization (EUA). The EUA for this test is supported by the [place] of Health and Human Service's (HHS's) declaration [...] be used).Performed By: #### PSASC #### [facility] [address] [place] [address] Dr. Forrest LaurenCHILDREN'[facility] GLUCOSEon 29-13-5447Acqtgye [Mass/Vol]255 mg/dL Critically abij91-017RfuMercy Health St. Charles HospitalComment on above:Performed By: #### POCGLUC #### [facility] [address] [place] [address] Matias KarenXR CHEST 1 Von [id number] CHEST 1 VEXAM: XR CHEST 1 V [...] Electronically authenticated by: AMARIS WALKER Date: 2020-12-06 22:04NoSumma Health Wadsworth - Rittman Medical CenterINSULINon 84-26-4747Jnnolre81.9 uIU/mLNormal2.6-24.9[facility]. Charles HospitalComment on above:Performed By: #### PSASC #### [facility] [address] [place] [address] Dr. Forrest LaurenSA[facility] AUTO DIFFon 05-48-1738NDJI #0.1 103/ulNormal0.0-0.1[facility] St[facility] Charles HospitalComment on above:Performed By: #### CBC #### [facility] [address] [place], [place] [address] Matias KarenBasophils/100 WBC (Bld)0.6 %Normal0.2-2.0The [facility] Comment on above:Performed By: #### CBC #### [facility] [address] [place] [address] Matias KarenEO #0.4 103/ulNormal0.0-0.7The [facility] HospitalComment on above: Performed By: #### CBC #### [facility] [address] [place] [address] Matias KarenEosinophils/100 WBC (Bld)4.2 %Normal0.9-7.0The [facility] Comment on above:Performed By: #### CBC #### [facility] [address] [place] [address] Matias KarenErythrocyte distribution width (RBC) [Ratio]13.1 %Ybmour68.0-15.0The [facility] HospitalComment on above:Performed By: #### CBC #### [facility] [address] [place] [address] Matias KarenHematocrit (Bld) [Volume fraction]50.2 %Yqplzx47.0-54.0The [facility] HospitalComment on above:Performed By: #### CBC #### [facility] [address] [place] [address] Matias KarenHemoglobin (Bld) [Mass/Vol]16.6 g/fBJgcgsm00.0-18.0The [facility] HospitalComment on above:Performed By: #### CBC #### [facility] [address] [place] [address] Matias KarenIG #0.05 10e3/ulCritically high0.00-0.03The [facility] HospitalComment on above:Performed By: #### CBC #### [facility] [address] [place] [address] Matias KarenIG %0.6 %Critically high0.0-0.5The [facility] HospitalComment on above:Performed By: #### CBC #### [facility] [address] [address] Matias RivasLYMPH #1.9 103/ulNormal1.2-3.8The [facility] HospitalComment on above: Performed By: #### CBC #### [facility] [address] [place] [address] Matias oRdasenLymphocytes/100 WBC (Bld)22.2 %Mrfdzc55.5-60.0[facility] Comment on above:Performed By: #### CBC #### [facility] [address] [place] [address] Matias KarenMANUAL DIFF REQNONormalThe [facility] HospitalComment on above: Performed By: #### CBC #### [facility] [address] [place] [address] Matias KarenH (RBC) [Entitic mass]29.4 vdVwjvtb07.9-34.0[facility] Comment on above:Performed By: #### CBC #### [facility] [address] [place] [address] Matias KarenMC (RBC) [Mass/Vol]33.1 g/eFRhcvsu34.9-35.2[facility] Comment on above:Performed By: #### CBC #### [facility] [address] [place] [address] Matias RodasenMCV (RBC) [Entitic vol]88.8 aGJqnunj41.0-94.0[facility] Comment on above:Performed By: #### CBC #### [facility] [address] [place] [address] Matias RivasMONO #0.7 103/ulNormal0.3-0.8The [facility] HospitalComment on above: Performed By: #### CBC #### [facility] [address] [place] [address] Matias KarenMonocytes/100 WBC (Bld)7.7 %Normal1.7-12.0[facility] Comment on above:Performed By: #### CBC #### [facility] [address] [place] [address] Matias DiazUT #5.7 103/ulNormal1.4-6.5The [facility] HospitalComment on above: Performed By: #### CBC #### [facility] [address] [place] [address] Matias Diazutrophils/100 WBC (Bld)64.7 %Yokimd11.0-75.0The [facility] Comment on above:Performed By: #### CBC #### [facility] [address] [place] [address] Matias RivasPlatelet mean volume (Bld) [Entitic vol]10.4 fLNormal9.5-13.5The [place] HospitalComment on above:Performed By: #### CBC #### [facility] [address] [place] [address] Matias RodasMrkvaSDO438 103/nuEcewlg868-250Cqc [facility] HospitalComment on above: Performed By: #### CBC #### [facility] [address] [place] [address] Matias RodasenRBC5.65 106/ulNormal4.70-6.10The [place] HospitalComment on above: Performed By: #### CBC #### [facility] [address] [place] [address] Matias RodasenWBC8.7 103/ulNormal4.0-11.0The [facility] HospitalComment on above: Performed By: #### CBC #### [facility] [address] [place] [address] Matias RodasenFREE THYROXINE INDEX T7on 32-13-7354OUY6.11NormalThe [facility] HospitalComment on above:Performed By: #### URIC, CMP, T7, PSASC, TSH, LIPID #### [facility] [address] [place] [address] Matias RodasenT3U34.0 %Suskdl52.5-40.5The [place] HospitalComment on above: Performed By: #### URIC, CMP, T7, PSASC, TSH, LIPID #### [facility] [address] [place] [address] Matias KarenT4 [Mass/Vol]6.20 ug/dLNormal5.53-11.00[facility] Charles HospitalComment on above:Performed By: #### URIC, CMP, T7, PSASC, TSH, LIPID #### [facility] [address] [place] [address] Matias KarenGLYCOHEMOGLOBIN A1Con 75-73-4747MTK RECOMMENDATIONADA THERAPEUTIC TARGET 6.0 - 7.0 ACTION SUGGESTED > 7.0NoSumma Health Wadsworth - Rittman Medical CenterComment on above:Performed By: #### A1C #### [facility] [address] [place] [address] Matias KarenGlucose [Mass/Vol]266 mg/dLNoSumma Health Wadsworth - Rittman Medical CenterComment on above:Performed By: #### A1C #### [facility] [address] [place] [address] Matias OushkBcB9v (Bld) [Mass fraction]10.9 %Critically high<=6.0The [facility] HospitalComment on above:Performed By: #### A1C #### [facility] [address] [place] [address] Matias KarenLIPID PROFILEon 94-66-4291AYTF-HDL RATIO NORMSEE [facility] HospitalComment on above:Result Comment: 3.3 - 4.4 LOW RISK 4.4 - 7.1 AVERAGE RISK 7.1 - 11.0 MODERATE RISK >11.0 HIGH RISKPerformed By: #### PSASC #### [facility] [address] [place] [address] Dr. Forrest Schmitzesterol [Mass/Vol]110 mg/dLNormal<=200[facility] Comment on above:Performed By: #### PSASC #### [facility] [address] [place] [address] Dr. Forrest Schmitzesterol in HDL [Mass/Vol]36 mg/dLUniversity Hospitals [facility]Point [facility] Center Comment on above:Performed By: #### PSASC #### [facility] [address] [place] [address] Dr. Forrest Schmitzesterol in LDL [Mass/Vol]36.2 mg/dLUniversity Hospitals TriPoint Medical CenterComment on above:Performed By: #### PSASC #### [facility] [address] [place] [address] Dr. Forrest Schmitzestermilly.total/Cholesterol in HDL [Mass ratio]3.1 {ratio} NormalThe [facility] Hospitalment on above:Performed By: #### PSASC #### [facility] [address] [place] [address] Dr. Forrest Fields NORMAL> or = 60 mg/dl - LOW CARDIOVASCULAR RISK <40 mg/dl - HIGH CARDIOVASCULAR RISKUniversity Hospitals TriPoint Medical CenterComment on above:Performed By: #### PSASC #### [facility] [address] [place] [address] Dr. Forrest Hernández CALC NORMALSEE BELOWUniversity Hospitals TriPoint Medical CenterComment on above:Result Comment: <100 mg/dl OPTIMAL 100 - 129 mg/dl NEAR OR ABOVE OPTIMAL 130 - 159 mg/dl BORDERLINE HIGH 160 - 189 mg/dl HIGH >190 mg/dl VERY HIGH Performed By: #### PSASC #### [facility] [address] [place] [address] Dr. Forrest LaurenTriglyceride [Mass/Vol]189 mg/dLCritically high<=150The [facility] on above:Performed By: #### PSASC #### [facility] [address] [place] [address] Dr. Forrest LaurenVLDL CALC37.8 mg/dLNoSumma Health Wadsworth - Rittman Medical CenterComment on above: Performed By: #### PSASC #### [facility] [address] [place] [address] Dr. Forrest LaurenPROF 14(COMP METB)on 53-46-0885Gslouaj [Mass/Vol]4.1 g/dLNormal 3.5-5.0[facility] St[facility] Charles HospitalComment on above:Performed By: #### URIC, CMP, T7, PSASC, TSH, LIPID #### [facility] [address] [place], [place] [address] Matias KarenAlbumin/Globulin [Mass ratio]1.2 {ratio}NormalMercy Health St. Charles Hospital Comment on above:Performed By: #### URIC, CMP, T7, PSASC, TSH, LIPID #### [facility] [address] [address] Matias KarenALP [Catalytic activity/Vol]80 U/URarnsk92-024Udg [facility] Comment on above:Performed By: #### URIC, CMP, T7, PSASC, TSH, LIPID #### [facility] [address] [address] Matias KarenALT [Catalytic activity/Vol]42 U/TJsoaov31-15Njo [facility] Comment on above:Performed By: #### URIC, CMP, T7, PSASC, TSH, LIPID #### [facility] [address] [place] [address] Matias KarenAnion gap [Moles/Vol]12.3 mmol/LNormalThe [facility] HospitalComment on above:Performed By: #### URIC, CMP, T7, PSASC, TSH, LIPID #### [facility] [address] [place] [address] Matias KarenAST [Catalytic activity/Vol]24 U/ZEsensa18-28Qam [facility] Comment on above:Performed By: #### URIC, CMP, T7, PSASC, TSH, LIPID #### [facility] [address] [place] [address] Matias KarenBilirubin [Mass/Vol]1.3 mg/dLNormal0.2-1.3TUniversity Hospitals Sam[facility] Comment on above:Performed By: #### URIC, CMP, T7, PSASC, TSH, LIPID #### [facility] [address] [place] [address] Matias KarenCalcium [Mass/Vol]9.3 mg/dLNormal8.4-10.2The [facility] Comment on above:Performed By: #### URIC, CMP, T7, PSASC, TSH, LIPID #### [facility] [address] [place], [place] [address] Matias KarenChloride [Moles/Vol]103 mmol/IHfufnr95-405Hqg [place] [facility] Comment on above:Performed By: #### URIC, CMP, T7, PSASC, TSH, LIPID #### [facility] [address] [place] [address] Matias KarenCO2 [Moles/Vol]30.0 mmol/DHkvolf38.0-30.0[facility] Comment on above:Performed By: #### URIC, CMP, T7, PSASC, TSH, LIPID #### [facility] [address] [place] [address] Matias KarenCreatinine [Mass/Vol]1.20 mg/dLNormal0.66-1.25The [facility] Comment on above:Performed By: #### URIC, CMP, T7, PSASC, TSH, LIPID #### [facility] [address] [place] [address] Matias KarenEGFR-AF SOUTH SUDANESE>60Normal>=60The [facility] HospitalComment on above: Performed By: #### URIC, CMP, T7, PSASC, TSH, LIPID #### [facility] [address] [place] [address] Matias KarenEGFR-NON AF SOUTH [place]ESE>60Normal>=60The [facility] HospitalComment on above:Performed By: #### URIC, CMP, T7, PSASC, TSH, LIPID #### [facility] [address] [place] [address] Matias KarenGlobulin (S) [Mass/Vol]3.5 g/dLNormalThe [facility] HospitalComment on above:Performed By: #### URIC, CMP, T7, PSASC, TSH, LIPID #### [facility] [address] [place] [address] Matias KarenGlucose [Mass/Vol]269 mg/dLCritically wlyh57-353UurMercy Health St. Charles HospitalComment on above:Performed By: #### URIC, CMP, T7, PSASC, TSH, LIPID #### [facility] [address] [place] [address] Matias KarenPotassium [Moles/Vol]4.3 mmol/LNormal3.4-5.0[facility] Comment on above:Performed By: #### URIC, CMP, T7, PSASC, TSH, LIPID #### [facility] [address] [place] [address] Matias KarenProtein [Mass/Vol]7.6 g/dLNormal6.1-8.2The [facility] HospitalComment on above:Performed By: #### URIC, CMP, T7, PSASC, TSH, LIPID #### [facility] [address] [place] [address] Matias KarenSodium [Moles/Vol]141 mmol/KMkukxr477-978Jnw [facility] Comment on above:Performed By: #### URIC, CMP, T7, PSASC, TSH, LIPID #### [facility] [address] [place] [address] Matias KarenUrea nitrogen [Mass/Vol]17.0 mg/dLNormal9.0-20.0The [facility] HospitalComment on above:Performed By: #### URIC, CMP, T7, PSASC, TSH, LIPID #### [facility] [address] [place] [address] Matias KarenUrea nitrogen/Creatinine [Mass ratio]14.2 mg/mgNoSumma Health Wadsworth - Rittman Medical CenterComment on above:Performed By: #### URIC, CMP, T7, PSASC, TSH, LIPID #### [facility] [address] [place] [address] Matias KarenTSHon 86-33-3475IJO8.574 uIU/mLNormal0.470-4.680The [facility] HospitalComment on above:Performed By: #### PSASC #### [facility] [address] [place] [address] Dr. Forrest Levy [facility] CantonComment on above: Result Comment: <0.34 UIU/ml HYPERTHYROID 0.34-5.60 UIU/ml EUTHYROID >5.60 UIU/ml HYPOTHYROIDPerformed By: #### PSASC #### [facility] [address] [place] [address] Dr. Forrest Whitney ACID SERUMon 99-26-1282Wemir [Mass/Vol]4.8 mg/dLNormal 3.5-8.5The [facility] HospitalComment on above:Performed By: #### PSASC #### [facility] [address] [place], [place] [address] Dr. Forrest LaurenCardiovascular Lab Reporton [id number] Lab Report [facility]: [id number] Physician: Jerod Miller M.D.Medicine Service Date: 2016Division of Birthdate: 6Cardiology Room #: CCAdult CardiovascularAndrea Ville [id number] [place], [place] [address]Sfbrh Fax Cardiovascular Laboratory ReportINDICATION: Nabeel Tran is [...] the right internal jugular vein and a 6-Syriac x 11cm sheath was placed. A 6-Syriac Griffith catheter was used for right heartcatheterization with measurement of pressures and calculation of cardiacoutput using the estimated Luke method. Griffith catheter was removed.Using ultrasound guidance and micropuncture technique, access was obtainedin the left radial artery and a 6-Syriac x 11 cm Hydrophilic sheath wasadvanced. Verapamil [...] 08/02/2017/02:42 P/Jerod Staton M.D.Date Trans: 08/03/2017 11:29 A/Get_JN:[id number]: Neville Mata D.O. [address] [place] [address] A [facility] [address]NzsuonXhmAvita [facility] Vital Signs Date TimeVital SignValuePerforming AurtgzrgxPzivlnnb23-13-9325 10:31-0400Body mass index (BMI) [Ratio]23.51 kg/m2Rg Winston MD Work Phone: [facility]05-15-2025 10:31-0400Body hbxiba80.2 kgRg Winston MD Work Phone: [facility]05-15-2025 10:31-0400Diastolic blood girlafuo72 mm[Hg]Rg Winston MD Work Phone: [facility]05-15-2025 10:31-0400Heart rate59 /min Rg Winston MD Work Phone: [facility]05-15-2025 10:31-0400Respiratory rate 18 /minSdebbie Winston MD Work Phone: [facility]05-15-2025 10:31-4175HkG3% (BldA) [Mass fraction]98 %Rg iWnston MD Work Phone: [facility]05-15-2025 10:31-0400Systolic blood mm[Hg]Rg Winston MD Work Phone: [facility]04-10-2025 10:00-0400Body mass index (BMI) [Ratio]22.98 kg/m2Rg Winston MD Work Phone: [facility]04-10-2025 10:00-0400Body temperature 97.3 [degF]Rg Winston MD Work Phone: [facility]04-10-2025 10:00-0400Body dtajty77.3 kgRg Winston MD Work Phone: [facility]04-10-2025 10:00-0400Diastolic blood vzqrpeis01 mm[Hg]Rg Winston MD Work Phone: [facility]04-10-2025 10:00-0400Heart rate66 /min Rg Winston MD Work Phone: [facility]04-10-2025 10:00-0400Respiratory rate 16 /minSdebbie Winston MD Work Phone: [facility]04-10-2025 10:00-4443MrW7% (BldA) [Mass fraction]99 %Rg Winston MD Work Phone: [facility]04-10-2025 10:00-0400Systolic blood apubsuju009 mm[Hg]Rg Winston MD Work Phone: [facility]04-02-2025 09:59-0400Body mass index (BMI) [Ratio]23.07 kg/m2Rg Winston MD Work Phone: [phone])476-[address] [place], [place] 3801504-02-2025 09:59-0400Body temperature 97.9 [degF]Rg Winston MD Work Phone: [phone])004-[address] [place], [place] 3801504-02-2025 09:59-0400Body .6 kgRg Winston MD Work Phone: [facility]04-02-2025 09:59-0400Diastolic blood klmfmwan04 mm[Hg]Rg Winston MD Work Phone: [phone]04-02-2025 09:59-0400Heart rate65 /min gR Winston MD Work Phone: [facility]04-02-2025 09:59-0400Respiratory rate 16 /Mony Winston MD Work Phone: [facility]04-02-2025 09:59-7723PhH9% (BldA) [Mass fraction]97 %Rg Winston MD Work Phone: [facility]04-02-2025 09:59-0400Systolic blood shwgmpem305 mm[Hg]Rg Winston MD Work Phone: [facility]03-26-2025 10:23-0400Body mass index (BMI) [Ratio]23.26 kg/m2Rg Winston MD Work Phone: [facility]03-26-2025 10:23-0400Body temperature 97.5 [degF]Rg Winston MD Work Phone: [place] [address]-26-2025 10:23-0400Body apgeaz98.3 kgRg Winston MD Work Phone: [place] [address]-26-2025 10:23-0400Diastolic blood equkpayj76 mm[Hg]Rg Winston MD Work Phone: [facility]03-26-2025 10:23-0400Heart rate64 /min Rg Winston MD Work Phone: [place] [address]-26-2025 10:23-0400Respiratory rate 16 /minSdebbie Winston MD Work Phone: [facility]03-26-2025 10:23-5979QqY8% (BldA) [Mass fraction]99 %Rg Winston MD Work Phone: [facility]03-26-2025 10:23-0400Systolic blood kmvbiuhk99 mm[Hg]Rg Winston MD Work Phone: [place] [address]-18-2025 13:45-0400Body mass index (BMI) [Ratio]23.54 kg/m2Rg Winston MD Work Phone: [place] [address]-18-2025 13:45-0400Body temperature 97.81 [degF]Rg Winston MD Work Phone: [place] [address]-18-2025 13:45-0400Body taoibj11.3 kgRg Winston MD Work Phone: [place] [address]-18-2025 13:45-0400Diastolic blood qsdyvllw84 mm[Hg]Rg Winston MD Work Phone: [place] [address]-18-2025 13:45-0400Heart rate61 /min Rg Winston MD Work Phone: [place] [address]-18-2025 13:45-0400Respiratory rate 18 /minSdebbie Winston MD Work Phone: [facility]03-18-2025 13:45-1444MdY9% (BldA) [Mass fraction]95 %Rg Winston MD Work Phone: [facility]03-18-2025 13:45-0400Systolic blood kubperii419 mm[Hg]Rg Winston MD Work Phone: [facility]02-20-2025 09:12-0500Body hsyxmd127.2 cmSdebbie Winston MD Work Phone: [facility]02-20-2025 09:12-0500Body mass index (BMI) [Ratio]23.85 kg/m2Rg Winston MD Work Phone: [facility]02-20-2025 09:12-0500Body temperature 96.8 [degF]Rg Winston MD Work Phone: [facility]02-20-2025 09:12-0500Body vmqyhk09.4 kgRg Winston MD Work Phone: [facility]02-20-2025 09:12-0500Diastolic blood kqzhfnez25 mm[Hg]Rg Winston MD Work Phone: [facility]02-20-2025 09:12-0500Heart rate62 /min Rg Winston MD Work Phone: [facility]02-20-2025 09:12-0500Respiratory rate 16 /minSdebbie Winston MD Work Phone: [phone]02-20-2025 09:12-6149RuM2% (BldA) [Mass fraction]98 %Rg Winston MD Work Phone: [facility]02-20-2025 09:12-0500Systolic blood hlsehyoa686 mm[Hg]Rg Winston MD Work Phone: [facility]01-02-2025 10:05-0500Body mass index (BMI) [Ratio]23.57 kg/o4Odlvcarcgdw Deepa DO Work Phone: [facility]Nuvrlsfcxw23-25-6130 10:05-0500Body irdxpv57.28 kgChristopher Arenas DO Work Phone: noRiple[facility] HospitalFkivkewqec09-40-6908 10:05-0500Diastolic blood cdridsur25 mm[Hg]Lucas Arenas DO Work Phone: [facility] HospitalEjisadsjbm29-98-7070 10:05-0500Heart rate74 /min Lucas Arenas DO Work Phone: [facility] HospitalTndmbpwyqm36-79-6756 10:05-0156LsF2% (BldA) [Mass fraction]96 %Lucas Arenas DO Work Phone: noRiple[facility] HospitalGyltgabilf33-25-9045 10:05-0500Systolic blood fysaqufu44 mm[Hg]Lucas Arenas DO Work Phone: [facility] HospitalDwspscdbsx79-34-8973 09:12-0500Body eotxgg685 cm Regis Ibarra MD Work Phone: [facility]12-24-2024 09:12-0500Body mass index (BMI) [Ratio]22.7 kg/s1FtnlmRegis Ibarra MD Work Phone: [facility]12-24-2024 09:12-0500Body gliduhnlier79.3 [degF]Regis Ibarra MD Work Phone: [facility]12-24-2024 09:12-0500Body .2 kgRegis Ibarra MD Work Phone: [facility]11-12-2024 12:25-0500Body wildqp486 cmChristtannermady Arenas DO Work Phone: [facility] HospitalPjezssaajr01-34-8121 12:25-0500Body mass index (BMI) [Ratio]20.29 kg/t8Dofgijefabb Hassett DO Work Phone: [facility] HospitalTvcimdbgno19-71-1710 12:25-0500Body xnmqza02.67 kgChristopher Deepa DO Work Phone: [facility] HospitalCnwtxhaplb57-35-4461 12:25-0500Diastolic blood vmygthvx00 mm[Hg]Elaner Deepa DO Work Phone: [facility] HospitalNxpktjukrr27-85-1402 12:25-0500Heart rate98 /min Christopher Deepa DO Work Phone: [facility] HospitalTjvffmptue54-05-8874 12:25-6957YkP5% (BldA) [Mass fraction]93 %Christtorito Arenas DO Work Phone: [facility] HospitalHfjobgloiz31-43-4820 12:25-0500Systolic blood fsoptluf965 mm[Hg]Lucas Grahamett DO Work Phone: [facility] HospitalIvsjrmiqti21-99-7884 09:54-0400Diastolic blood lunnaqnk13 mm[Hg]Jassi NILL [phone]-[facility]fixn[facility] [place] 06-03-2024 09:54-0400Heart znhh327 /minMichael NILL [phone]-TrfbtPeoples Hospital [facility] [place] 06-03-2024 09:54-0400Respiratory rate16 /minMichael NILL [phone]-CdlkvWilson [facility] 06-03-2024 09:54-0400Systolic blood rwodtbvb916 mm[Hg]Jassi NILL [phone]-ParszPeoples Hospital [facility] [place] 05-29-2024 06:42-0400Body wadmly429.5 cmDO González Moon Work Phone: [facility]10-24-2024 06:42-0400 Body pcelvi26.47 kgDO González Moon Work Phone: [facility]06-17-2024 11:44-0400 [facility]06-17-2024 11:44-0400Diastolic blood osduxsma61 mm[Hg]Moody POP [facility]06-17-2024 11:44-0400Heart rate70 /minPatrick DONN [facility]06-17-2024 11:44-0400Respiratory rate16 /minPatrick DONN [facility]06-17-2024 11:44-0400Systolic blood utyejsbg306 mm[Hg]Moody POP [facility] Encounters Encounter DateEncounter TypeCare ProviderFacilityStart: 78-96-5079cfgsixtuwu Jassi ALEGRIAFacility:[facility]tart: 03-23-2025 End: 82-80-7250wschbaeambZDVADS [facility] Start: 12-18-2024 End: 23-16-2168Fdqmwop encounter procedureSdebbie Winston MD Work Phone: Radiation OncologyComment on above:Hodgkin lymphoma, unspecified Hodgkin lymphoma type, unspecified body region (HCC) (Primary Dx) Start: 12-18-2024 End: 50-82-0904xkgiuciprpMMNV RAJANFacility:[facility] Hospitaltart: 12-02-2024 End: 39-46-2826Jtorgyqdx encounterSdebbie Winston MD Work Phone: Radiation OncologyStart: 11-17-2024 End: 19-14-6889mxnckhajxeYJMZ RAJANFacility:[facility] Hospitaltart: 11-14-2024 End: 14-03-0305hmdpbkrdfzFnifkjqidl Michaelis RD Work Phone: Nutrition TherapyStart: 11-14-2024 End: 04-59-6695Jnregbwef therapyMargo Schumacher RD Work Phone: Nutrition TherapyComment on above:Nutrition Telephone (No answer/)Start: 11-14-2024 End: 40-04-3317kihwsrjasrQLLP RAJANFacility:[facility] Hospitaltart: 11-13-2024 End: 39-89-8412Ahemuxw encounter procedureSdebbie Winston MD Work Phone: Radiation OncologyComment on above:Hodgkin lymphoma, unspecified Hodgkin lymphoma type, unspecified body region (HCC) (Primary Dx) Start: 11-13-2024 End: 61-33-7777ewlcofxglsLUMK RAJANFacility:[facility] Hospitaltart: 11-12-2024 End: 01-78-5657hveerqdoqeIFAZ RAJANFacility:[facility]tart: 11-11-2024 End: 26-14-0502mwmmhwsqelZDWM RAJANFacility:[facility] Hospitaltart: 11-10-2024 End: 22-53-3817zcxtyyiylpELRL RAJANFacility:[facility]tart: 11-07-2024 End: 97-43-4884lbxecagyanWLIB RAJANFacility:[facility]tart: 11-06-2024 End: 83-99-4347ovypbbppyhWZPA RAJANFacility:[facility] Hospitaltart: 11-05-2024 End: 46-71-4957Tnaedij encounter procedureSdebbie Winston MD Work Phone: Radiation OncologyComment on above:Hodgkin lymphoma, unspecified Hodgkin lymphoma type, unspecified body region (HCC) (Primary Dx) Start: 11-05-2024 End: 05-13-6735hempvbhlobJEUY RAJANFacility:[facility]tart: 11-04-2024 End: 59-80-6197pdagaaklbhLVOL RAJANFacility:[facility]tart: 11-03-2024 End: 18-81-5082zmndwmixtmBGVS RAJANFacility:[facility] Hospitaltart: 10-31-2024 End: 98-17-1347lasknfacttLINL RAJANFacility:[facility] Hospitaltart: 10-30-2024 End: 78-08-4141kveztktwxbRQLI RAJANFacility:[facility] HospitalStart: 10-29-2024 End: 07-53-4980Aopwhep encounter procedureSdebbie Winston MD Work Phone: Radiation OncologyComment on above:Hodgkin lymphoma, unspecified Hodgkin lymphoma type, unspecified body region (HCC) (Primary Dx) Start: 10-29-2024 End: 88-35-2939ozehbfqgteSTDF RAJANFacility:[facility] HospitalStart: 10-28-2024 End: 42-39-7334ybvizzroswFRCU RAJANFacility:[facility]tart: 10-27-2024 End: 61-40-6476ldpjnmdaelYFBG RAJANFacility:[facility]tart: 10-24-2024 End: 68-98-2558xuxhesusnmPVZZ RAJANFacility:[facility]tart: 10-23-2024 End: 00-08-7119zbeavbbbwjXHXG RAJANFacility:[facility] Hospitaltart: 10-22-2024 End: 82-78-0432vcwekbwyofCVDG RAJANFacility:[facility] Hospitaltart: 10-21-2024 End: 80-29-2353vowresyvczLIGX RAJANFacility:[facility] HospitalStart: 10-21-2024 End: 96-62-2405Bnuznnw encounter procedureSdebbie Winston MD Work Phone: Radiation OncologyComment on above:Hodgkin lymphoma, unspecified Hodgkin lymphoma type, unspecified body region (HCC) (Primary Dx) Start: 10-08-2024 End: 42-67-4446Xppymgl encounter procedureCcf ProviderCoshocton [facility] Center DepartmentStart: 10-07-2024 End: 85-51-4934Iwuocsj encounter procedureSdebbie Winston MD Work Phone: Radiation OncologyStart: 10-07-2024 End: 94-14-3942Icqjaikbp Oncology NoteSdebbie Winston MD Work Phone: Radiation OncologyComment on above:Simulation Note Treatment PlanningStart: 10-07-2024 End: 93-19-0382dbuauwkgziWCDL RAJANFacility:[facility] Hospitaltart: 10-07-2024 End: 87-35-6097Vvokecs evaluation of patient and reportNurse Magalie Buckley Work Phone: Radiation OncologyComment on above:Hodgkin lymphoma, unspecified Hodgkin lymphoma type, unspecified body region (HCC) (Primary Dx) Start: 09-26-2024 End: 90-43-4176rixodamtyvGcpaitlepu Karuna RD Work Phone: Nutrition TherapyStart: 09-26-2024 End: 92-37-5738Dwpppyvcw therapyJacqueline Karuna RD Work Phone: Nutrition TherapyComment on above:Nutrition Telephone Start: 09-25-2024 End: 80-42-6724Cibmwavsb encounterSdebbie Winston MD Work Phone: Radiation OncologyComment on above:Future Appointment (Schedule Simulation)Start: 09-25-2024 End: 00-12-5498yernsyfjhwTsuwde Weyer RNRadiation OncologyComment on above: Patient EducationStart: 09-25-2024 End: 35-82-7809Lkjwzgh encounter procedureSdebbie Winston MD Work Phone: Radiation OncologyComment on above:Hodgkin lymphoma, unspecified Hodgkin lymphoma type, unspecified body region (HCC) (Primary Dx) Start: 09-23-2024 End: 18-93-5891Gakukdfzb encounterCleve Quinn PT Work Phone: NOUT CI PTComment on above:Check PT statusStart: 09-19-2024 End: 17-30-8823Zaczebax SupportAlison Kailyn HATHAWAY Work Phone: [facility]ose [facility] ThroatComment on above:Sensorineural hearing loss (SNHL) of both ears (Primary Dx)Start: 09-15-2024 End: 42-90-6390fqhymigezqIKLJOM [facility] Start: 09-08-2024 End: 57-44-0626Inrloxcny encounterRegis Ibarra MD Work Phone: [facility] ThroatStart: 09-01-2024 End: 17-46-3392Lkvctq Christie Quinn PT Work Phone: [facility] CI PTStart: 09-01-2024 End: 43-21-2777Irywjt Christie Quinn PT Work Phone: [facility] CI PTStart: 09-01-2024 End: 26-31-9552otvquhdnpoUkwyip T Blackston PT Work Phone: [facility] CI PTComment on above:Polyneuropathy (Primary Dx); Poor balance; Weakness of both lower extremitiesStart: 08-22-2024 End: 50-11-2725Qrmcyv flowsheetAurea Kelmariposay PTANOMS CI PTStart: 08-22-2024 End: 19-03-9515Oscafb flowsheetAurea Valeroy PTANOMS CI PTStart: 08-22-2024 End: 46-82-4111bgzilpxvwhZsylpnz Kelmariposay PTANOMS CI PTComment on above: Polyneuropathy (Primary Dx); Poor balance; Weakness of both lower extremitiesStart: 08-20-2024 End: 07-17-3019kzfprvnxvfQrxzxh T Blackston PT Work Phone: [facility] CI PTComment on above:Polyneuropathy (Primary Dx); Poor balance; Weakness of both lower extremitiesStart: 08-20-2024 End: 74-95-2006Qoxedc Christie Quinn PT Work Phone: [facility] CI PTStart: 08-20-2024 End: 81-99-7092Eippjt Beatrizagathadustin Quinn PT Work Phone: [facility] CI PTStart: 08-15-2024 End: 48-95-3180Lhsgqgodm encounterRehab Flaco ELLIS Work Phone: [facility] ThroatStart: 08-13-2024 End: 19-09-9447Rnhiwzfha encounterRehab Flaco ELLIS Work Phone: [facility] ENTComment on above:Need office notes faxedStart: 08-12-2024 End: 74-96-4084Vmgpfkvje Result EncounterChristopher Deepa DO Work Phone: noms External Department UnsolicitedStart: 08-12-2024 End: 92-04-7086Ufrfbikpv Result EncounterChristopher Deepa DO Work Phone: noms External Department UnsolicitedStart: 08-12-2024 End: 79-95-9586Gvhsvjude encounterRegis Ibarra MD Work Phone: [facility] Nose and ThroatStart: 08-07-2024 End: 03-25-3993Sgzqsh flowsheetChristopher Deepa DO Work Phone: noms [place] R[address]TEStart: 08-07-2024 End: 51-28-9185Rjkkid flowsheetChristopher Deepa DO Work Phone: noms [place] ROUTEStart: 08-07-2024 End: 85-64-1640Kleesk outpatient visit 25 minutesChristopher Deepa DO Work Phone: noms [place] ROUTEComment on above:Lymphoma, unspecified body region, unspecified lymphoma type (CMS/HCC) (Primary Dx); Malnutrition, unspecified type (CMS/HCC); PolyneuropathyStart: 08-07-2024 End: 13-18-7772ynickfyjwrZDRNLWEKYYF HASSETTNot AvailableStart: 07-29-2024 End: 65-93-0499Oaryyx outpatient new 45 minutesRegis Ibarra MD Work Phone: [facility] Ear, Nose and ThroatComment on above:Sensorineural hearing loss, asymmetrical (Primary Dx); Vestibular schwannoma (CMS-HCC); Hodgkin lymphoma, unspecified Hodgkin lymphoma type, unspecified body region (CMS-HCC)Start: 07-10-2024 End: 08-10-9872Vgflnz flowsheetChristopher Deepa DO Work Phone: noMS STAN COUNT [facility] ROUTEStart: 07-10-2024 End: 50-42-2664Finrze flowsheetChristopher Deepa DO Work Phone: noMS [place] ROUTEStart: 07-10-2024 End: 96-84-4381Zgmntya encounter procedureChristopher Deepa DO Work Phone: noMS [facility] ROUTEComment on above:Weakness (Primary Dx); PolyneuropathyStart: 07-10-2024 End: 73-72-1184hkrabkljliKCRVASCNJMZ HASSETTNot AvailableStart: 07-02-2024 End: 40-41-6043Ssilkyd encounter procedureLillian Jhonatan Robe AUD Work Phone: NOMS AUDComment on above:Sensorineural hearing loss, bilateral (Primary Dx)Start: 07-02-2024 End: 32-15-6340bpliqrxijgIRCOCNR S WRIGHTNot AvailableStart: 07-02-2024 End: 15-69-8600Ghinqq flowsEla Jhonatan Nagel AUD Work Phone: NOMS AUDStart: 07-02-2024 End: 90-49-2787Ipoqil Jessica Jhonatan Nagel AUD Work Phone: NOMS AUDStart: 06-27-2024 End: 71-80-7020Sanzdm Jessica Jhonatan Robe AUD Work Phone: NOMS AUDStart: 06-27-2024 End: 22-06-6759Jycimv Jessica Jhonatan Nagel AUD Work Phone: NOMS AUDStart: 06-27-2024 End: 87-44-5412Kvfdulc encounter procedureLillian Jhonatan Robe AUD Work Phone: NOMS AUDComment on above:Sensorineural hearing loss, bilateral (Primary Dx)Start: 06-27-2024 End: 06-14-8851hbqohuonuiFDCENGE S WRIGHTNot AvailableStart: 06-19-2024 End: 56-63-2679ltejplwyzuAJYCYLO [facility] Start: 06-17-2024 End: 99-79-3463Oypsnl flowsheetChristopher Deepa DO Work Phone: noms [place] R[address]TEStart: 06-17-2024 End: 27-13-0188Ketrdl flowsheetChristopher Deepa DO Work Phone: noms [place] ROUTEStart: 06-17-2024 End: 27-60-9475Tjgwjw outpatient new 60 minutesChristopher Deepa DO Work Phone: noms [place] ROUTEComment on above: Malnutrition, unspecified type (CMS/HCC) (Primary Dx); Weakness; History of benign schwannoma; Lymphoma, unspecified body region, unspecified lymphoma type (CMS/HCC)Start: 06-17-2024 End: 56-52-6898vlrzmsxgulPPGCEPRLINO HASSETTNot AvailableStart: 06-16-2024 End: 42-95-3280Hmzsued encounter procedureNoFreeman Orthopa[facility] & [facility] Aud [facility] - Kathleen Cunningham AUDComment on above: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)Start: 06-16-2024 End: 60-06-8402qutjsozeqtXUVTKB BLACKSTONNot AvailableStart: 06-13-2024 End: 36-46-9377Kcvsantnw Result EncounterEvelyn ARSHAD Work Phone: noms External Department UnsolicitedStart: 06-13-2024 End: 78-57-5227Owrowmmsy Result EncounterEvelyn ARSHAD Work Phone: noms External Department UnsolicitedStart: 06-09-2024 End: 07-30-5302Kosfnyv encounter procedurePatrick Rosi POP [facility] start: 06-03-2024 End: 14-88-7848Kfppnxp encounter procedureMichael R NILL [phone]-YcaeoFirelands Regional Medical Center [facility] [place] Start: 05-29-2024 End: 60-25-0979Gjgbnkg encounter procedureDO González Moon Work Phone: [facility] [place] Work Phone: Start: 05-29-2024 End: 72-52-8596qazwgyxjssGC Brett Kuns Work Phone: [facility] Work Phone: Start: 05-26-2024 End: 26-80-2614Tmdsgu flowsheetJayejuaquin Oneyda Piedad CCC-A Work Phone: noms CI AUDStart: 05-26-2024 End: 86-07-7517Bfsscf flowsheetDeashleejuaquin Oneyda Piedad CCC-A Work Phone: noms CI AUDStart: 05-26-2024 End: 63-60-9601Eeykqbep SupportDeashleejuaquin Call Piedad CCC-A Work Phone: noms CI AUDComment on above: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)Start: 04-30-2024 End: 84-69-3283Iwzvcnk encounter procedureMichael R NILL [phone]-Ozmpi General Surgery [place] Start: 04-23-2024 End: 69-73-0120fxkpdjtsdiAF González Moon Work Phone: [facility] Work Phone: Start: 04-23-2024 End: 43-80-8127Odytothk ReferredDO González Moon Work Phone: [facility] [place] HospStart: 19-37-2579Ljm-patient / Non-visitDO González Moon Work Phone: [facility] Work Phone: Start: 04-11-2024 End: 14-87-0429jlvkgnthmmZL González Moon Work Phone: [facility] Work Phone: Start: 04-11-2024 End: 87-33-4170Wxufdifr ReferredDO González Moon Work Phone: [facility] [place] HospStart: 01-21-2024 End: 20-97-4962Rgijgwp encounter procedurePatrick Rosi POP [facility] start: 08-26-2021 End: 33-35-6484uoivihtmucSJCXRM ALLENFacility:K2Ssggd: 82-04-5523abhhitqdqa AILIN BAKERFacility:D7Gdctp: 12-06-2020 End: 37-25-8764nvvowcbftrGAVVFCW D KATKOFacility:L5Pumab: 02-57-5704Izvjiyser for general adult medical examination without abnormal findingsAILIN BAKERMercy Health St. Rita's Medical Centertart: 10-01-2020 End: 19-27-8348yedekuwszwNKTKEC ALLENFacility:N7Fqprh: 10-01-2020 End: 59-84-4401Udyxjswjh for general adult medical examination without abnormal findingsAILIN BAKERFacility:D7Hcwxk: 2017 End: 84-47-4508JnvguzlzkbWUTIZTTT UNKNOWNFacility:UTMCStart: 07-24-2017 End: 41-92-4613GxsqpnnzyvFJAZFPD PHYSICIANFacility:UTMCStart: 07-19-2017 End: 88-34-5891VtoddrepnfORBPJNL PHYSICIANFacility:[facility] CENTERtart: 06-18-2017 End: 91-16-1822WgzeooxqwwPSNDQUR PHYSICIANFacility:[facility] Procedures DateProcedureProcedure DetailPerforming ClinicianStart: 35-68-9894LAM HEMOGLOBIN B4ZNtmcxvvycyi Deepa DO Work Phone: Start: 07-10-2024 End: 92-16-9203Dhdsax emg ea extremty w/paraspinl area completeChristopher Deepa DO Work Phone: Start: 03-43-7497FYO 12-LEADAmy Keiko ARSHAD Work Phone: Start: 05-00-6634SWZ 12-LEADEvelyn ARSHAD Work Phone: Start: 12-03-3773Ydljmmkzw of implantable venous access portPatilaallie POP Start: 16-10-6214NR pre/post mri xrayDO González Moon Work Phone: Start: 22-85-3853YED of cervical spine with contrastDO González Moon Work Phone: Start: 74-95-5910FDO of headDO Gonzálezisaias Moon Work Phone: Start: 18-75-0882Gvydmwthnc biopsyMichael NILL Start: 35-14-4448EFR screeningPAMELA ALLENComment on above:Performed By: #### PSASC #### [facility] [address] [place] [address] Dr. Forrest LaurenStart: 76-69-4887CRJ screeningPAMELA ALLENComment on above: Performed By: #### URIC, CMP, T7, PSASC, TSH, LIPID #### [facility] [address] [place], [place] [address] Matias Sesaytart: [phone] DONN Start: 45-37-7616Lufxbeye of brain (disorder)Moody POP Back structure, excluding neck (body structure)Moody POP Removal of acoustic neuromaMichael NILL Spinal arthrodesisMichael NILL TonsillectomyPatricallie POP Plan of Treatment DateCare ActivityDetailAuthorStart: 37-52-9080Bpqsfgv ScreeningTobacco Screening [facility]: 08-99-1363Dpgyl BMI ScreeningAdult BMI Screening [facility]: 07-80-7233Qdlatxg ScreeningTobacco Screening [facility] 04-20-2025 End: 60-53-0773Tjshsmq encounter dyuegysqx72/15/2025 10:00 AM EDT Office Visit Radiation Oncology [address] [place] [address] Rg Winston MD [address] [place] [address] 4 month follow upRadiation OncologyComment on above:4 month follow up Start: 49-92-6818Fnuoifsqd vaccinationInfluenza Vaccine (Season Ended)[facility] 12-18-2024 End: 53-69-5683Pzoprcj encounter ovxkcwbef12/15/2025 10:30 AM EDT Office Visit Radiation Oncology [address] [place] [address] Rg Winston MD [address] [place] [address] final radiation follow upRadiation OncologyComment on above:final radiation follow upStart: 12-15-2024 End: 33-94-1689Zddlqit encounter /12/2025 4:00 PM EDT Office Visit Radiation Oncology [address] [place] [address] Rg Winston MD [address] [place] [address] final radiation follow upRadiation OncologyComment on above:final radiation follow upStart: 11-19-2024 End: 10-01-0234Fspyrvr encounter lbxqovvck79/16/2025 10:00 AM EDT Office Visit Radiation Oncology [address] [place] [address] Rg Winston MD [address] [place] [address] Location: SA-ON TREATMENT REVRadiation OncologyComment on above:Location: SA-ON TREATMENT REVStart: 11-17-2024 End: 55-88-4207Tlkbawo encounter dkncmhryp12/14/2025 9:45 AM EDT Appointment Radiation Oncology [address] [place] [address] rt axilla/ neckRadiation OncologyComment on above:rt axilla/ neckStart: 11-14-2024 End: 23-49-0206Wazjzzd encounter mawjzkenn95/11/2025 2:15 PM EDT Education Nutrition Therapy [address] [place] [address] [place] [address] Nutrition consultNutrition TherapyComment on above:Nutrition consultStart: 11-14-2024 End: 24-03-2124Kkwapww encounter /11/2025 9:45 AM EDT Appointment Radiation Oncology [address] [place] [address] rt axilla/ neckRadiation OncologyComment on above:rt axilla/ neckStart: 11-13-2024 End: 17-22-1768Ktexfxd encounter /10/2025 9:45 AM EDT Appointment Radiation Oncology [address] [place] [address] rt axilla/ neckRadiation OncologyComment on above:rt axilla/ neckStart: 11-12-2024 End: 41-15-8364Jwzpyne encounter procedureRadiation OncologyComment on above:rt axilla/ neckLocation: SA-ON TREATMENT REVStart: 11-11-2024 End: 47-21-1360Sxcsqon encounter addghvtjy05/08/2025 9:45 AM EDT Appointment Radiation Oncology [address] [place] [address] rt axilla/ neckRadiation OncologyComment on above:rt axilla/ neckStart: 11-10-2024 End: 61-64-7957Phxfpvw encounter eodzomykt38/07/2025 9:45 AM EDT Appointment Radiation Oncology [address] [place] [address] rt axilla/ neckRadiation OncologyComment on above:rt axilla/ neckStart: 11-07-2024 End: 95-59-4552Atyubji encounter /04/2025 9:45 AM EDT Appointment Radiation Oncology [address] [place] [address] rt axilla/ neckRadiation OncologyComment on above:rt axilla/ neckStart: 11-06-2024 End: 29-69-7964Qjnzvoo encounter vadbvjghr58/03/2025 9:45 AM EDT Appointment Radiation Oncology [address] [place] [address] rt axilla/ neckRadiation OncologyComment on above:rt axilla/ neckStart: 11-05-2024 End: 08-32-6781Jbltytg encounter procedureRadiation OncologyComment on above:rt axilla/ neckLocation: SA-ON TREATMENT REVStart: 11-04-2024 End: 24-56-9941Vzugbsu encounter owgzlqlkb15/01/2025 9:45 AM EDT Appointment Radiation Oncology [address] [place] [address] rt axilla/ neckRadiation OncologyComment on above:rt axilla/ neckStart: 11-03-2024 End: 32-58-8232Grziqdc encounter ihbpymyrz55/31/2025 3:45 PM EDT Office Visit [facility] [place] [address] Jassi Yanes MD [address] [place] [address] [address] [place], [place] [phone] [facility] ThroatStart: 10-21-2024 End: 27-68-6492Djyxryq encounter procedureRadiation OncologyComment on above:NEW START AXILLAAxilla- would like morningsStart: 10-20-2024 End: 15-20-0698Qjqebsg encounter procedureRadiation OncologyComment on above:[place] START AXILLA- ANN PTAxilla- would like mornings- ANN PTStart: 10-07-2024 End: 22-49-6254Siejfas encounter ezulwppoq51/04/2025 1:30 PM EST Office Visit Radiation Oncology [address] [place] [address] [place] [address] Rg Winston MD [address] [place] [address] RT AXILLA/NECK W/ IV - CONSENT DONERadiation OncologyComment on above:RT AXILLA/NECK W/ IV - CONSENT DONEStart: 10-07-2024 End: 24-08-7996Lvvvxqr evaluation of patient and yhrznq2010/07/2024 1:15 PM EST Nurse Visit Radiation Oncology [address] [place] [address] [phone] Ina, Nurse Radt [address] [place] [address] Nurse VisitRadiation OncologyComment on above:Nurse VisitStart: 09-26-2024 End: 95-62-8739Rjsorwlip jwpddfq4409/26/2024 1:30 PM EST Education Nutrition Therapy [address] [place] [address] [place] [address] ArrivedNutrition TherapyComment on above:ArrivedStart: 09-19-2024 End: 75-86-1498Edmjtynu Oirxkht4609/19/2024 9:00 AM EST Clinical Support [facility] [address] [place], [place] [id number] Pilar Avina AUD [address] [place], [place] [id number] [facility] ThroatStart: 15-59-0344Ezahegzpw for malignant neoplasm of colonCoshocton Regional Medical Center Start: 09-04-2024 End: 50-61-3909Hmbjulf encounter procedureNOMS STAN COUNT INCLUDES [facility] ROUTEStart: 09-01-2024 End: 85-78-6485itwhnjabnxQVTN CI PTComment on above:ArrivedStart: 08-29-2024 End: 15-58-8305kcmhfiakaa60/24/2025 9:00 AM EST Treatment [facility] [address] [place] [address] Kelbledustin, Aurea, MANAGER STONE [facility]OM[facility] CI PTStart: 08-27-2024 End: 89-80-2322ospyvbchil00/22/2025 9:00 AM EST Treatment [facility] [address] [place] [address] Brook Sanchezissa, MANAGER STONE NOM[facility] CI PTStart: 08-22-2024 End: 77-32-4746ahaoadbbjnNIUZ CI PTComment on above:Polyneuropathy (Primary Dx); Poor balance; Weakness of both lower extremitiesStart: 08-07-2024 End: 31-73-3761Jvylybxyy (Vitamin B12) [Mass/volume] in Serum or PlasmaVitamin B12 Lab Routine Lymphoma, unspecified body region, unspecified lymphoma type (CMS/HCC) Expected: 08/07/2024 (Approximate), Expires: 08/07/2025[facility] Comment on above:Expected: 08/07/2024 (Approximate), Expires: 08/07/2025Start: 08-07-2024 End: 45-88-8024Shsqja, serumCopper, serum Lab Routine Lymphoma, unspecified body region, unspecified lymphoma type (CMS/HCC) Expected: 08/07/2024 (Approximate), Expires: 08/07/2025[facility] HealthcareComment on above:Expected: 08/07/2024 (Approximate), Expires: 08/07/2025Start: 08-07-2024 End: 14-87-3333Ylabgwpvsu A1c/Hemoglobin.total in BloodHemoglobin A1c Lab Routine Lymphoma, unspecified body region, unspecified lymphoma type (CMS/HCC) Expected: 08/07/2024 (Approximate), Expires: 08/07/2025[facility] Work Phone: comment on above:Expected: 08/07/2024 (Approximate), Expires: 08/07/2025Start: 08-07-2024 End: 23-16-3882Vyydawouqieyqs electrophoresisImmunofixation electrophoresis Lab Routine Lymphoma, unspecified body region, unspecified lymphoma type (CMS/HCC) Expected: 08/07/2024 (Approximate), Expires: 08/07/2025[facility] HealthcareComment on above:Expected: 08/07/2024 (Approximate), Expires: 08/07/2025Start: 08-07-2024 End: 17-47-3335Iqdelb Ab [Presence] in Serum by RPRRPR Lab Routine Lymphoma, unspecified body region, unspecified lymphoma type (CMS/HCC) Expected: 09/2024 (Approximate), Expires: 08/07/2025[facility] HealthcareComment on above: Expected: 08/07/2024 (Approximate), Expires: 08/07/2025Start: 08-07-2024 End: 32-19-9113Fafmbjtrxdx [Units/volume] in Serum or PlasmaTSH Lab Routine Lymphoma, unspecified body region, unspecified lymphoma type (CMS/HCC) Expected: 08/07/2024 (Approximate), Expires: 08/07/2025[facility] HealthcareComment on above: Expected: 08/07/2024 (Approximate), Expires: 08/07/2025Start: 08-07-2024 End: 13-18-6732Zmqibso N8Umuvytw B6 Lab Routine Lymphoma, unspecified body region, unspecified lymphoma type (CMS/HCC) Expected: 08/07/2024 (Approximate), Expires: 08/07/2025[facility] HealthcareComment on above:Expected: 08/07/2024 (Approximate), Expires: 08/07/2025Start: 08-07-2024 End: 63-50-5295Jexbruo encounter procedureNOMS STAN STATE ROUTEComment on above:ArrivedStart: 67-51-7308Xpojqky Directive DiscussionAdvance Directive DiscussionCleveland ClinicStart: 07-10-2024 End: 56-58-3278Qpclwiv encounter procedureNOMS PIERCE COUNT INCLUDES THE [facility] ROUTEComment on above:ArrivedStart: 07-02-2024 End: 05-00-2743Lfrkdso encounter procedureLOURDES MEDICAL [facility]ENTER AUDComment on above:Arrived Start: 06-27-2024 End: 42-50-6589Inufolo encounter /22/2024 9:00 AM EST Office Visit [facility] AUD [address] [place] [address] Lillian Nagel, AUD [address] [facility] [address] ArrivedKAYCE AUDComment on above:ArrivedStart: 06-17-2024 End: 44-57-8264YFG 2 ExtremitiesEMG 2 Extremities Neurology Routine Weakness Expected: 06/17/2024, Expires: 06/17/2025[facility] Work Phone: comment on above:Expected: 06/17/2024, Expires: 06/17/2025Start: 06-16-2024 End: 08-82-0634Nsjbtcg encounter gbvxdgbwu25/11/2024 3:00 PM EST Office Visit [facility] AUD [address] [facility] [place] [address] [phone] SH AUDStart: 06-05-2024 End: 58-51-1689Fbhmjad encounter oqtivgpeq02/31/2024 11:00 AM EDT Office Visit [facility] NE[facility] [address] [facility] [address] [place] [phone] Lucas Arenas, [address] [place] [address] [facility] NEUROLOGYStart: 30-51-7582Npbcx-19 Vaccine ( season)Covid-19 Vaccine ( season)[facility]: 40-01-8939Ldjuatmpy vaccinationProMedica Health SystemStart: 85-64-8942Lxrm Risk ScreeningFall Risk ScreeningProBarnesville Hospitaltart: 07-19-2018 Pneumococcal Vaccine: 50+ (2 of 2 - PCV)Pneumococcal Vaccine: 50+ (2 of 2 - PCV) [facility]: 11-96-9588OWU Vaccine (1 - Risk 60-74 years 1-dose series)RSV Vaccine (1 - Risk 60-74 years 1-dose series)[facility]: 34-83-7174Jgunxejw specific antigen measurementProstate Cancer Screening DiscussionSouthview Medical Centertart: 63-66-8564Jjevijrg ScreeningDiabetes Screening [facility]: 84-08-4238Kqapthhajrdhql of varicella zoster vaccine Zoster (Shingles) Vaccine (1 of 2)[facility]: 2006 Shingrix Vaccine (1 of 2)Shingrix Vaccine (1 of 2)[facility]: 85-68-7914Qoizsxzz specific antigen measurementProstate Cancer Screening DiscussionSouthview Medical Centertart: 88-73-9008Csyjeasbi for malignant neoplasm of colonSouthview Medical Centertart: 86-87-8217Teesr panelLipid ScreeningCoshocton Regional Medical Center Start: 57-96-5116Flkxvdfyrusxqd of varicella zoster vaccineZoster (Shingles) Vaccine (1 of 2)[facility]: 61-71-6815FAvC,Tdap and Td Vaccines (1 - Tdap)DTaP,Tdap and Td Vaccines (1 - Tdap)[facility] Start: 07-87-8644Xcihqsbd Vaccine (1 of 2)Shingrix Vaccine (1 of 2)[facility]: 18-20-1651Xulxs microalbumin profileDTaP,Tdap,Td Vaccine (1 - Tdap) [facility]: 63-36-4572Zfxcdzj ScreeningAnxiety ScreeningSouthview Medical Centertart: 89-42-4263Kylhbuytdj ScreeningDepression ScreeningCoshocton Regional Medical Center Start: 49-94-8763Mkhtzqzin C screeningHepatitis C ScreeningCoshocton Regional Medical Center Start: 96-53-0569Kjnjddzqbv ScreeningDepression ScreeningHighland District Hospital Start: 32-50-4967Yqxlv-19 Vaccine (#1)Covid-19 Vaccine (#1)[facility] Auditory function testsAuditory function tests Audiology Routine 05/26/2024 1:35 PM EDTMOUNTAINSTAR HEALTHCARE Dispatch Work Phone: Payers DatePayer CategoryPayerPolicy [id number] MEDICARE [id number] 2024Medicare (Managed Care) [id number] Health [id number] Cross Blue [id number] [id number] 1960Self-pay1955 [id number] 2..1.309662.3.57[id number] 2..1.144437.3.57[id number] 2..1.098757.3.57[id number] 2..1.957109.3.57[id number] 2..1.734830.3.57[id number] 2..1.966170.3.57[id number] 2..1.436353.3.579.2.[id number] 2.0.1.747435.3.57[id number] 2..1.034857.3.579.[id number] 2..1.736943.3.579.2.[id number] 2..1.931574.3.579.2.463837-56-5206Qolfjzp3978191 2..1.936692.3.579.2.208878-34-9556Hnnuqgn5692350 2..1.929845.3.579.2.[id number] 2..1.639413.3.57[id number] 2..1.907656.3.579.2.727Private Health InsuranceSumma Health [id number] / [id number] 2.0.1.4[id number] 2.0.1.491437.3.579.2.531 [id number] 2..1.104490.3.579.2.531 Social History DateTypeDetailFacilityStart: 01-21-2024 End: 30-56-0666Brxwjrg smoking statusNever smoked tobacco (finding)[facility]: 83-77-4689Pahlcxn smoking statusNeverExecutive Urology of Fairfield Medical Centertart: 07-29-2024 End: 05-21-9245Ysc Assigned At [facility]tart: 98-40-8219Hvd Assigned At [facility] HospitalTobacco smoking status NHISTobacco smoking consumption unknownNOMN HealthcareStart: 34-15-7693Kgo assigned at [facility] medical centerNot on fileMOUNTAINSTAR HEALTHCARE HealthcareStart: 07-29-2024 End: 83-73-5962Qtsaekn use and exposureSmokeless tobacco non-userProLutheran Hospital SystemStart: 59-42-6027Dpvgfeehj beverage intakeLifetime non-drinker (finding)[facility] SystemStart: 07-29-2024 End: 10-59-0093Ihakwab of Social functionProLutheran Hospital SystemStart: 19-56-9229PyqBfan (finding)[facility] SystemStart: 10-02-8107Tmkygg identityIdentifies as male gender (finding)[facility] SystemStart: 70-71-6781Qhzxvu orientationHeterosexual (finding)[facility] SystemStart: 09-25-2024 End: 90-76-6157Rjpotvjtg beverage intakeEx-drinker (finding)[facility] NEGATED: Highlighted rowStart: NINFHistory of tobacco usePassive smokerCoshocton Regional Medical Center Functional Status HcmmDntivbcoeqEcvoxsNyqjboub69-06-1000Xwevkskpsn StatusN/AFMercy Health St. [facility] General Surgery Xnwkfex26-66-0054Osbctydrmo StatusN/AFPremier Health [facility] Hospital General Surgery Ciqalakd70-02-5376Hqprwipraj StatusN/AExecutive Urology of [facility] Clinical Notes 01-21-2024 to 04-03-2025 Note Date & NlauMyunAefvhrah94-52-9837 NoteReturn phone call from patients . Advised of Dr. Schneider recommendations. verbalized understanding and agreed with plan of care [facility]08-18-2025 NoteUT Cardiology - [facility] Clinic Subjective Nabeel Tran is a [...] and then was admitted to the [facility] on 06/13/2024 with atrial fibrillation and [...] tablet, TAKE 1 TABLET (more content not included)...[facility]05-15-2025 NoteHNO ID: [id number] Author: RG WINSTON MD Service: ? Author [...] the care of Dr. Donnelly at [facility] and repeat pet imaging after the [...] a result of the inadequacies/shortcomings of said technology/software.[facility]05-15-2025 History of Present illness Narrative* Rg Winston [...] inadequacies/shortcomings of said technology/software. documented in this encounterCoshocton Regional Medical Center05-06-2025 Telephone encounter Note * Telephone Encounter - Ana Paula Chauhan RN - 12/09/2024 4:03 PM EDT I left another message for Nabeel to return my call. Ana Paula Chauhan RN [facility]05-06-2025 Miscellaneous Notes* Telephone Encounter - [...] Ana Paula Chauhan RN documented in this encounterCoshocton Regional Medical Center04-29-2025 Telephone encounter Note * Telephone Encounter - Ana Paula Chauhan RN - 12/02/2024 1:04 PM EDT I called and left a message for Nabeel to call back for an update post radiation completion. Ana Paula Chauhan RN [facility]04-14-2025 NoteHNO ID: [id number] Author: RG WINSTON MD Service: ? Author Type: Physician Type: Progress Notes Filed: 11/27/2024 04:40 Note Text: [facility] Radiation Oncology Department RADIATION ONCOLOGY - [...] the care of Dr. Donnelly at [facility] and repeat pet imaging after the [...] AM Electronically Signed cc: Sonia Donnelly MD ([place]) Ailin Green, LATASHA [address] [place] [address], [place] [address] [facility]04-11-2025 NoteEducation (NUTRSA) NABEEL TRAN ([id number]) 1955 M Date Time Provider Department 11/14/24 2:15 PM MARGO SCHUMACHER Reason for Visit: Nutrition Telephone [2013] Cmt: No answer Visit Diagnosis:Hodgkin lymphoma, unspecified Hodgkin lymphoma type, unspecified body region (HCC) [C81.90] Order(s):CONSULT TO ONCOLOGY NUTRITION [7888058] Order #: [id number]: 1 During your visit today, we recorded [...] mg. Encounter Status:Closed by MARGO SCHUMACHER on 11/17/24[facility]04-11-2025 NoteHNO ID: [id number] Author: MARGO SCHUMACHER RD Service: ? Author Type: Registered Dietitian Type: Progress Notes Filed: 11/17/2024 08:01 Note Text: Oncology Nutrition Therapy Reassessment I have communicated my name and active licensure. The patient's identity and physical location were verified at the time of this visit. Either the patient or their legal assisted sales representative has been informed of the risks and benefits of -- and alternatives to -- treatment through a remote evaluation and consents to proceed with the evaluation remotely. 1415- called pt for scheduled phone appointment. No answer, left message with return contact information. Signed by: Margo Schumacher RD, ZENY, JUSTINEThe [facility]04-11-2025 History of Present illness Narrative* Margo Schumacher RD - 11/14/2024 7:52 AM EDT Oncology Nutrition Therapy Reassessment I have communicated my name and active licensure. The patient's identity and physical location wereverified at the time of this visit. Either the patient or their legal assisted sales representative has been informed of the risks and benefits of -- and alternatives to -- treatment through a remote evaluation andconsents to proceed with the evaluation remotely. 1415- called pt for scheduled phone appointment. No answer, left message with return contact information. Signed by: Margo Schumacher RD, ZENY, JUSTINE documented in this encounterCoshocton Regional Medical Center04-10-2025 NoteHNO ID: [id number] Author: RG WINSTON MD Service: ? Author [...] the care of Dr. Donnelly at [facility] and repeat pet imaging after the third cycle on 09/08/2024 noted excellent metabolic response (Deauville 3). COURSE: Consolidative AREA TREATED: Right axilla/neck CURRENT DOSE: 01407 cGy in 18 fx PLANNED DOSE: 3600 [...] Continue radiation treatment as planned. Rg Winston [facility]04-10-2025 History of Present illness Narrative* Rg [...] the care of Dr. Donnelly at [facility] and repeat pet imaging after the third cycle on 09/08/2024 noted excellent metabolic response (Deauville 3). COURSE: Consolidative AREA TREATED: Right axilla/neck CURRENT DOSE: 81612 cGy in 18 fx PLANNED DOSE: 3600 [...] planned. Rg Winston MD documented in this encounterCoshocton Regional Medical Center04-02-2025 NoteHNO ID: [id number] Author: RG WINSTON MD Service: ? Author [...] the care of Dr. Donnelly at [facility] and repeat pet imaging after the [...] further investigate if it persists. Rg Winston [facility]04-02-2025 History of Present illness Narrative* Rg Winston MD - 11/05/2024 11:50 PM EDT Radiation Oncology - On Treatment Review (OTR) Note PATIENT NAME: Nabeel Tran PATIENT Rg Winston MD documented in this encounterCoshocton Regional Medical Center03-26-2025 NoteHNO ID: [id number] Author: RG WINSTON MD Service: ? Author [...] the care of Dr. Donnelly at [facility] and repeat pet imaging after the [...] Continue radiation treatment as planned. Rg Winston [facility]03-26-2025 History of Present illness Narrative* Rg [...] the care of Dr. Donnelly at [facility] and repeat pet imaging after the [...] planned. Rg Winston MD documented in this encounterCoshocton Regional Medical Center03-18-2025 NoteHNO ID: [id number] Author: RG WINSTON MD Service: ? Author [...] the care of Dr. Donnelly at [facility] and repeat pet imaging after the [...] through the course of treatment. Rg Winston [facility]03-18-2025 History of Present illness Narrative* Rg [...] the care of Dr. Donnelly at [facility] and repeat pet imaging after the [...] treatment. Rg Winston MD documented in this encounterCoshocton Regional Medical Center03-04-2025 History of Present illness Narrative* Rg Winston MD - 10/07/2024 12:00 AM EST NABEEL TRAN [id number] 10/07/2024 [facility] Radiation Oncology Department SIMULATION NOTE DATE OF SIMULATION: 10/07/2024 THERAPIST: Marjan Werner MACHINE: ipnexus DIAGNOSIS: Other classical Hodgkin lymphoma, lymph nodes [...] / CDT 56:24 PM documented in this encounterCoshocton Regional Medical Center03-04-2025 History of Present illness Narrative* Rg Winston MD - 10/07/2024 12:00 AM EST NABEEL TRAN [id number] 10/07/2024 [facility] Department of Radiation Oncology Treatment Planning [...] Winston M.D. 2:58 PM documented in this encounterCoshocton Regional Medical Center03-04-2025 NoteHNO ID: [id number] Author: RG WINSTON MD Service: ? Author Type: Physician Type: Progress Notes Filed: 10/08/2024 18:24 Note Text: NABEEL TRAN [id number] 10/07/2024 [facility] Radiation Oncology Department SIMULATION NOTE DATE OF SIMULATION: 10/07/2024 THERAPIST: Marjan Werner MACHINE: Siemens AGRIMAPS mCT DIAGNOSIS: Other classical Hodgkin lymphoma, lymph [...] Signed Rg Winston M.D. / CDT 56:24 [facility]03-04-2025 NoteHNO ID: [id number] Author: RG WINSTON MD Service: ? Author Type: Physician Type: Progress Notes Filed: 10/20/2024 12:58 Note Text: NABEEL TRAN [id number] 10/07/2024 [facility] Department of Radiation Oncology Treatment Planning [...] and DVH. Electronically Signed Rg Winston M.D. 512:58 [facility]02-26-2025 Telephone encounter Note* Telephone Encounter - Mady Durbin - 10/01/2024 8:54 AM EST Called and spoke to Nabeel's . She confirmed his appointment times for 10/07/24 with an arrival of 1:00 PM and no special instructions. A nurse visit was added to the schedule for 1:15PM Mady Woodson PSS [facility]02-26-2025 Miscellaneous Notes* Telephone Encounter - [...] 10/20 Coty Chan, RN documented in this encounterCoshocton Regional Medical Center02-26-2025 Telephone encounter Note * Telephone Encounter - Kathleen Werner RT(R) - 10/01/2024 7:27 AM EST Sim scheduled on 10/07/24 at 1:30pm PSS - Please schedule nurse visit at 1:15 & notify pt of 1:00pm arrival time, no special instructions. Thanks! RT Jaylen(R)(T) [facility] Work Phone: [phone] Instructions* Patient Instructions* Margo Schumacher RD - [...] avocado, peanut butter, etc. documented in this encounterCoshocton Regional Medical [facility]02-[facility]-2025 NoteEducation (NUTRSA) CHELSEANABEEL Young ([id number]) 1955 M Date Time Provider Department 09/26/24 1:30 PM MARGO SCHUMACHER Reason for Visit: Nutrition Telephone [2014] Primary Visit Diagnosis:Hodgkin lymphoma, unspecified Hodgkin lymphoma [...] mg. Encounter Status:Closed by MARGO SCHUMACHER on 09/26/24[facility]02-21-2025 Telephone encounter Note* Telephone Encounter - Daphnie Ramirez - 09/26/2024 10:41 AM EST Rad ed and Nutri scheduled [facility]02-21-2025 NoteHNO ID: [id number] Author: MARGO SCHUMACHER RD Service: ? Author Type: Registered Dietitian Type: Progress Notes Filed: 09/26/2024 13:51 Note Text: Oncology Nutrition Therapy Initial Assessment I have communicated my name and active licensure. The patient's identity and physical location were verified at the time of this visit. Either the patient or their legal assisted sales representative has been informed of the [...] Medical Oncologist: Dr. Donnelly at the [facility] Radiation Oncologist: Dr. Winston PMHx: insulin dependent diabetes per Pt is QAGAN TAYAGUNGIN but is able to verify his name [...] Dosing Weight: 85.4 kg Estimated kilocalorie needs: 6765-5363 kilocalories determined by 25-30 kcal/kg Estimated protein needs: 85-111 grams determined by 1.0-1.3 g/kg Dosing weight Estimated fluid needs: ~9211-4411 milliliters based on 1 mL per kcal [...] mouth. ondansetron orally disin (more content not included)...[facility]02-21-2025 History of Present illness Narrative* Margo Schumacher, RD - 09/26/2024 7:33 AM EST Oncology Nutrition Therapy Initial Assessment I have communicated my name and active licensure. The patient's identity and physical location wereverified at the time of this visit. Either the patient or their legal assisted sales representative has been informed of the [...] Medical Oncologist: Dr. Donnelly at the [facility] Radiation Oncologist: Dr. Winston PMHx: insulin dependent diabetes per Pt is QAGAN TAYAGUNGIN but is able to verify his name [...] Dosing Weight: 85.4 kg Estimated kilocalorie needs: 7928-4461 kilocalories determined by 25-30 kcal/kg Estimated protein needs: 85-111 grams determined by 1.0-1.3 g/kg Dosing weight Estimated fluid needs: ~2984-7172 milliliters based on 1 mL per kcal [...] 15 minutes Signed by: Margo Schumacher RD, LUBRICATING SPECIALIST, LD documented in [facility]25 NoteHNO ID: [id number] Author: RG WINSTON MD Service: ? Author Type: Physician Type: Progress Notes Filed: 10/21/2024 08:06 Note Text: Radiation Oncology - New Patient/Consult Note PATIENT NAME: Nabeel Tran PATIENT REQUESTING PHYSICIAN: Dr. Sonia Donnelly DIAGNOSIS: Stage II, classical Hodgkin's Lymphoma arising from the right axilla/neck (bulky) PATIENT IDENTIFICATION: This patient was seen in the Department of Radiation Oncology at the [facility] with Rg Winston MD. He was accompanied today by his family. Final recommendations will be communicated back to the requesting physician by way of the shared medical record, or letter to requesting physician via US mail. HISTORY OF PRESENT ILLNESS: Mr. Tran is a 69-year old gentleman [place], [place] with a history of hearing loss [...] after second review through [facility]. A second core biopsy was obtained on [...] has 2 children, and lives in the [place], [place] area. 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 He denies tobacco or alcohol use. [...] the care of Dr. Donnelly at [facility] and repeat pet imaging after the third cycle on 09/08/2024 noted excellent metabolic response (more content not included)...[facility]02-20-2025 History of Present illness Narrative* Rg Winston MD - 09/25/2024 11:58 PM EST Images from the original note were not included. Radiation Oncology - New Patient/Consult Note PATIENT NAME: Nabeel Tran PATIENT Signed: Rg Winston MD I spent a total of 60 minutes on the date of the service which included preparing to see the patient, omar-uv-aaac patient care, and counseling and educating the [...] aware. Coty Chan RN documented in this [facility] History of Present illness Narrative* Coty Chan RN - 09/25/2024 12:13 PM EST Radiation Therapy - Patient Education Note PATIENT NAME: Nabeel Tran PATIENT September 25, 2024 [facility] FACILITY/LOCATION: [facility] READINESS TO LEARN Cognitive Ability: Alert [...] by: Coty Chan RN documented in this encounterCosho[facility]on [facility]02-[facility]-2025 NoteHNO ID: [id number] Author: COTY CHAN RN Service: ? Author Type: Registered Nurse Type: Progress Notes Filed: 09/26/2024 08:31 Note Text: Radiation Therapy - Patient Education Note PATIENT NAME: Nabeel Tran PATIENT September 25, 2024 [facility] FACILITY/LOCATION: [facility] READINESS TO LEARN Cognitive Ability: Alert [...] Winston/ Radiation therapist. Signed by: Coty Chan RNThe [facility] Telephone encounter Note* Telephone Encounter - Coty [...] stick blood sugars* Plan start 10/20 Coty Weyer, RN [facility]02-20-2025 NoteHNO ID: [id number] Author: COTY CHAN RN Service: ? Author [...] sugars throughout. and pt aware. Coty Chan RNThe [facility]-2025 NoteEducation (MC) NABEEL TRAN ([id number]) 1955 M Date Time Provider Department 09/25/24 [...] mg. Encounter Status:Closed by COTY CHAN on 09/26/24[facility] 09-23-2024 Telephone encounter Note* Telephone Encounter - [...] w/ referring provider continuation could be suitable. [facility] [id number] Miscellaneous Notes* Telephone Encounter - Sobia Morrow [...] continuation could be suitable. documented in this encounterUniversity [id number] History of Present illness Narrative* Pilar Avina, [...] worse than when it was tested at [facility] in May 2024. Otoscopic Evaluation: Right Ear: Unremarkable Left Ear: Unremarkable Immittance Measures: Right Ear: DNT Left Ear: Type A Pure Tone Audiometry: Right Ear: DNT, known profound SNHL for 20+ years, well documented Left Ear: Moderate sloping to severe SNHL Reliability: good Speech Audiometry: SRT/MANAGER STONE in good agreement for the left ear [...] covered by his benefit and be similar tottomasz Coombs. If he wants to order a hearing [...] his ongoing cancer treatment. Katarina Chew, DIANE-A Puppy Walker documented in this encounterHighland [facility]02-10-2025 NoteUT Cardiology - [facility] Subjective Nabeel Tran is a [...] and then was admitted to the [facility] on 06/13/2024 with atrial fibrillation and [...] Allergen Reactions Jardiance [Empagl (more content not included)...[facility]02-03-2025 Miscellaneous Notes* Telephone Encounter - Regis Ibarra MD - 09/08/2024 9:48 AM EST MRI Brain in May 2024 with no left sided abnormalities noted. Right IAC enhancement, right cochlearand CN 7 enhancement. Please schedule patient for follow up with Dr. Yanes. documented in this encounterHighland District Hospital02-03-2025 Telephone encounter Note* Telephone Encounter - Regis Ibarra MD - 09/08/2024 9:48 AM EST MRI Brain in May 2024 with no left sided abnormalities noted. Right IAC enhancement, right cochlearand CN 7 enhancement. Please schedule patient for follow up with Dr. Yanes. [facility]02-03-2025 Miscellaneous Notes* Telephone Encounter - Regis Ibarra MD - 09/08/2024 9:24 AM EST Ok Cooper, doesn't look like we have the MRI brain report. Can you look into it? Thank you documented in this encounterHighland District Hospital02-03-2025 Telephone encounter Note* Telephone Encounter - Regis Ibarra MD - 09/08/2024 9:24 AM EST Ok Cooper, doesn't look like we have the MRI brain report. Can you look into it? Thank you [facility]01-27-2025 History of Present illness Narrative* Cleve [...] to be instructed in home exercise program. Senior Living Goals: To be met in 10 weeks [...] Please sign below. Date: documented in this encounterUniversity [id number] History of Present illness Narrative* Cleve Quinn, [...] to be instructed in home exercise program. Senior Living Goals: To be met in 10 weeks [...] Please sign below. Date: documented in this encounterUniversity [id number] Miscellaneous Notes* Telephone Encounter - Regis Ibarra [...] like me to do. documented in this encounterHighland District Hospital01-10-2025 Telephone encounter Note* Telephone Encounter - Regis Ibarra MD - 08/15/2024 10:28 AM EST Thank you Allison. I do not see a report for the MRI Brain. Do we have that radiology report? [facility]01-10-2025 Telephone encounter Note* Telephone Encounter - Allison Fortune CNA - 08/15/2024 10:28 AM EST I just looked and it looks like they never faxed that one or it got lost. I can call to have them resend it or it looks like it is in under the imaging. Let me know what you would like me to do. [facility]01-08-2025 Miscellaneous Notes* Telephone Encounter - Kathleen Arciniega - 08/13/2024 3:46 PM EST Ailin Green's Office - [facility] called 08/13, patient saw Dr. Ibarra on 07/29/24. [facility] needs office notes faxed to [phone]. * Telephone Encounter - Allison Fortune CNA - 08/13/2024 3:46 PM EST Faxed over office not to number provided. documented in this encounterHighland District Hospital01-08-2025 Telephone encounter Note* Telephone Encounter - Kathleen Arciniega - 08/13/2024 3:46 PM EST Ailin Green's Office - [facility] called 08/13, patient saw Dr. Ibarra on 07/29/24. [facility] needs office notes faxed to [phone]. [facility]01-08-2025 Telephone encounter Note* Telephone Encounter - Allison Fortune CNA - 08/13/2024 3:46 PM EST Faxed over office not to number provided. [facility] [employer] [id number] Miscellaneous Notes* Telephone Encounter - Regis Ibarra MD - 08/12/2024 2:23 PM EST Just wanted to check if anyone had gotten his head and neck imaging from the outside hospital back? documented in this encounterHighland District Hospital01-07-2025 Telephone encounter Note* Telephone Encounter - Regis Ibarra MD - 08/12/2024 2:23 PM EST Just wanted to check if anyone had gotten his head and neck imaging from the outside hospital back? [facility]01-02-2025 History of Present illness Narrative* Lucas Arenas [...] , wrist extensors , wrist flexor , paedodontist strength 4-/5. LUE Strength deltoid , biceps , triceps , wrist extensors , wrist flexor , paedodontist strength 4-/5. RLE Strength illopsoas, quadriceps, tibialis [...] reflex 1+ . Flowers's sign negative. Coordination: Hgscrd-yy-joqh testing and rapid alternating movements are normal [...] plan, and return instructions documented in this encounterUniversity [id number] History of Present illness Narrative* Regis Ibarra MD - 07/29/2024 9:15 AM EST Images from the original note were not included. [facility] [address] [place] [id number] SUBJECTIVE: Patient ID (1955): Nabeel Tran is a 68 y.o. male presents today for Chief Complaint Patient presents with Cerumen Impaction Bilateral Hearing Loss Laterality HPI: Nabeel is presenting today with bilateral profound hearing loss. 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 Although every effort was made to ensure the accuracy of this automated public health advisor, some errors in public health advisor may have occurred. documented in this encounterHighland District Hospital12-05-2024 History of Present illness Narrative* QING Joseph - 07/10/2024 9:30 AM EST Images from the original note were not included. Reason for Appointment: EMG Patient: Nabeel Tran : 1955 EMG Computer: VUELOGIC Referring Physician: Dr. Lucas Arenas EMG: MARIPOSA mysql database developer: Gilbert Gaffney RT(R) Office Location: [place] Reason for EMG: c/o numbness/tingling in bilateral feet. Hx of surgery to low back. Pt currently undergoing chemo. Hx of DM. Taking Eliquis. Comments: Procedure was explained to the patient & who expressed understanding. Patient appeared to have tolerated the test well despite some discomfort due to the nature of the test. documented in this encounterUniversity [id number] History of Present illness Narrative* RIVAS Cutler [...] offered the opportunity to try a different hematologist oncologist to see if he would perceive success. Patient would prefer to return the instruments. A return was processed in [employer] portal. Informed patient he will be refunded by [employer]. Gave his the [employer] number inthe event they needed to discuss the refund process. Patient to let us know if he would like to tryBiCROS devices again in the future. documented in this [facility]11-22-2024 History of Present illness Narrative* RIVAS [...] within the trial period. documented in this [facility]11-14-2024 NoteUT Cardiology - [facility] Subjective Nabeel Tran is a 68 y.o. [...] the morning., Disp: , (more content not included)...[facility]11-12-2024 History of Present illness Narrative* Lucas Arenas, DO - 06/17/2024 12:15 PM EST Images from the original note were not included. Chief complaint: Unsteadiness and generalized weakness and falls Subjective Nabeel Tran, 68 y.o., male Nabeel presents today for a neurological consultation at the request of Ailin Green CNP for unsteady gait, generlized weakness, falls. Pt was seen at [facility] labs, U/A, PET scan, ECG and CT/MRI [...] , wrist extensors , wrist flexor , paedodontist strength 4-/5. LUE Strength deltoid , biceps , triceps , wrist extensors , wrist flexor , paedodontist strength 4-/5. RLE Strength illopsoas, quadriceps, tibialis [...] reflex 2+ . Flowers's sign negative. Coordination: Wwvxgi-bu-qbgc testing and rapid alternating movements are normal [...] plan, and return instructions documented in this [facility]11-11-2024 History of Present illness Narrative* Kathleen [...] The right CROS was coupled to 2S sheeter waxer operator with a 10 mm open dome. The left hearing aid was coupled to a Signia custom canal lock earmold. Patient does not use a smart phone. Patient did not want to schedule a follow up dueto his health and many appointments. Patient's states she will call for follow up. Cosigned by FRANKIE Spears at 06/17/2024 11:28 AM EST documented in this [facility]10-21-2024 History of Present illness Narrative* FRANKIE Spears [...] is eligible for hearing aids through his [facility] [employer] Benefit. Recommend a custom mold for the left ear. Ear impression taken of left ear without incident. Pt ordered mid level technology. Order completed in [employer] portal and pt scheduled for HAF 06-16-24 in [place]. documented in this encounterUniversity [id number] Hospital Discharge instructions Follow Up Care 02/15/2024 09:24:50 With:DONN ELLIS, Moody Aranda, URL Address: [facility] [address] , [place] [address]- When: Unknown [facility] 06-17-2024 Hospital Discharge instructions Patient Education 01/21/2024 08:23:24 [...] urethra. Follow these instructions at home: Take cghr-iqo-daknmqt and prescription medicines only as told by [...] provider. Document Revised: 02/08/2022 Document Reviewed: 02/08/2022 [employer] Patient Education 2022 [employer]. Follow Up Care 09/13/2023 09:26:56 With:DONN ELLIS, Moody Aranda, URL Address: [facility] [address], [place] [address]- When: Unknown [facility] evaluation + Plan note No data available for this section [facility] evaluation + Plan note Future Appointments Appointment Date:06/09/2024 10:45:00 AM Scheduled Provider:Moody POP MD Location:[facility] Appointment Type:URO Office Visit [facility] Evbqnbphjl noteNo assessment information available [facility] Work Phone: Evaluation note* Diagnosis Sudden [...] body region (CMS-HCC) documented [facility] this encounter [facility]* Diagnosis Lymphoma, unspecified body region, unspecified lymphoma type (CMS/HCC)- Primary Malnutrition, unspecified type (CMS/HCC) Polyneuropathy Unspecified hereditary and idiopathic peripheral neuropathy documented in this encounter [facility]Eval[facility]ee[facility] note* Diagnosis Polyneuropathy- Primary Unspecified hereditary and idiopathic peripheral neuropathy Poor balance Weakness of both lower extremities documented in this encounter [facility]* Diagnosis Polyneuropathy- Primary Unspecified hereditary and idiopathic peripheral neuropathy Poor balance Weakness of both lower extremities documented in this encounter [facility]* Diagnosis Polyneuropathy- Primary Unspecified hereditary and idiopathic peripheral neuropathy Poor balance Weakness of both lower extremities documented in this encounter [facility]* Diagnosis Sensorineural hearing loss (SNHL) of both ears- Primary documented in this encounter [facility]* Diagnosis Hodgkin lymphoma, unspecified Hodgkin lymphoma type, unspecified body region (HCC)- Primary documented in this encounter [facility] note* Diagnosis Hodgkin lymphoma, unspecified Hodgkin lymphoma type, unspecified body region (HCC)- Primary documented in this encounter [facility] note* Diagnosis Hodgkin lymphoma, unspecified Hodgkin lymphoma type, unspecified body region (HCC)- Primary documented in this encounter [facility] note* Diagnosis Hodgkin lymphoma, unspecified Hodgkin lymphoma type, unspecified body region (HCC)- Primary documented in this encounter [facility] note* Diagnosis Hodgkin lymphoma, unspecified Hodgkin lymphoma type, unspecified body region (HCC)- Primary documented in this encounter [facility] note* Diagnosis Hodgkin lymphoma, unspecified Hodgkin lymphoma type, unspecified body region (HCC) documented in this encounter [facility] note* Diagnosis Hodgkin lymphoma, unspecified Hodgkin lymphoma type, unspecified body region (HCC)- Primary documented in this encounter [facility] Discharge instructions No data available for this section [facility] [place] InstructionsNot on filedocumented in this encounter [facility]ructionsNot on filedocumented in this encounter [facility] SystemInstructionsNot on filedocumented in this encounter [facility] SystemInstructionsNot on filedocumented in this encounter [facility] note No data available for this section [facility] reason for visit Narrative* Consultation (Routine) - ClosedSpecialtyDiagnoses / ProceduresReferred By ContactReferred To Contact Neurology Diagnoses Unsteadiness on feet Weakness Procedures [place] OFFICE/OUTPATIENT [facility] MDM 30 MINUTES Ailin Green MD [address] [place] [address] Phone: tel:[phone] fax:[phone] Nabeel New MD [address] [place] [address] Phone: tel: fax: Referral IDStatusReasonStart DateExpiration DateVisits RequestedVisits [id number] Consult and Treat / [facility] HealthcareReason for visit Narrative* Consultation (Routine) - Pending ReviewSpecialtyDiagnoses / ProceduresReferred By ContactReferred To Contact Physical Therapy Diagnoses Polyneuropathy Procedures [place] OFFICE/OUTPATIENT [facility] MDM 60 MINUTES Lucas Arenas DO [address] [place] [address] Phone: tel: fax: [facility] [address] [address] Phone: tel: fax: Referral IDStatusReasonStart DateExpiration DateVisits RequestedVisits [id number] Review Specialty Services Required / [facility] HealthcareReason for visit Narrative* Consultation (Routine) - Authorized SpecialtyDiagnoses / ProceduresReferred By ContactReferred To ContactPhysical Therapy Diagnoses Polyneuropathy Procedures [place] OFFICE/OUTPATIENT [facility] MDM 60 MINUTES Lucas Arenas DO [address] [place] [address] Phone: tel: fax: [facility] [address] [address] Phone: tel: fax: Referral IDSMartha DateExpiration DateVisits RequestedVisits [id number] Specialty Services Required / [facility] Summary [...] DATE CREATED AUTHOR 01/29/2018 [facility] DATE CREATED AUTHOR AUTHOR'S ORGANIZ ATION 09/01/[address] [facility] DATE CREATED AUTHOR AUTHOR'S ORGANIZ ATION 06/08/2024 [facility] DATE CREATED AUTHOR AUTHOR'S ORGANIZ ATION 09/02/2024 [facility] DATE CREATED AUTHOR AUTHOR'S ORGANIZ ATION 01/14/2025 [facility] DATE CREATED AUTHOR AUTHOR'S ORGANIZ ATION 04/04/2025 [facility] DATE CREATED AUTHOR AUTHOR'S ORGANIZ ATION 06/16/2025 [facility] Patient Care team informatio n (unrecognized section and content) Team Status: Active Member Role Status Dates MILKA BardalesC Primary Care Provider Active Team Status: Inactive Member Role Status Dates González Moon DO Primary Care Provider Active Sta rt: April 11, 2024 End: April 11, 2024Avtar Greene ProviderActiveStart: April 11, 2024 End: April 11, 2024 Team Status: Active Member Role Status Dates MEHRDAD Bardales Primary Care Provider Active Start: April 21, 2024 Onur Oconnell ProviderActiveStart: April 21, 2024 Team Status: Inactive Member Role Status Dates Jassi Alegria MD FACS Attending Provider Active Start: April 23, 2024 End: April 23, 2024 Team Status: Inactive Member Role Status Dates Sonia Donnelly MD Attending Provider Active St art: May 29, 2024 End: May 29marge Green , ELECTRICAL INSTALLER-CPrformerly [facility], later [facility] morgantonry Care ProviderActiveStart: May 29, 2024 End: May 29, 2024 Team Status: Active Member Role Status Dates González Moon DO Primary Care Provider Active Team MemberRelationshipSpecialtyStart DateEnd Date Ailin Green MD [address] [place] [address] Referring PhysicianM[facility] Hxnnaage18/11/24 Ailin Green MD [address] [place] [address] Referring PhysicianM[facility] Southeast Ofecbhnr14/21/24Team MemberRelationshipSpecialtyStart [place] [address] [place] [address] Referring PhysicianM[facility] Southeast Afibjvdp80/11/24 [place] [address] [place] [address] Referring PhysicianM[facility] Southeast Uqwygvur56/21/24Team MemberRelationshipSpecialtyStart DateEnd Jason Tinajero MD [address] [place] [address] PCP - GeneralFamily Apoxawum04/11/24 Ailin Green MD [address] [place] [address] Referring PhysicianM[facility] Southeast Ocempuns18/11/24 Ailin Green MD [address] [place] [address] Referring PhysicianFamily Oawfzoww98/21/24Team MemberRelationshipSpecialtyStart DateEnd Jason Tinajero MD [address] [place] [phone] PCP - GeneralFamily Dozcuazl33/11/24 Ailin Green MD [address] [place] [address] Referring PhysicianFamily Ytsczgpd82/11/24 Ailin Green MD [address] [place] [address]97 Referring PhysicianFamily Wfwvhwia84/21/24Team MemberRelationshipSpecialtyStart End Jason Tinajero MD [address] [place] [address], [place] [address] PCP - GeneralFamily Xnzjvers20/11/24 Ailin Green MD [address] [place] [address] Referring PhysicianFamily Qacaorwi58/11/24 Ailin Green MD [address] [place] [address] Referring PhysicianFamily Vldtqmky52/21/24Team MemberRelationshipSpecialtyStart End Jason Tinajero MD [address] [place] [phone] PCP - GeneralFamily Ffkhlsgr45/11/24 Ailin Green MD [address] [place], [place] [address] Referring PhysicianFamily Svhouguk97/11/24 Ailin Green MD [address] [place] [address] Referring PhysicianFamily Fpfmhdmn21/21/24Team MemberRelationshipSpecialtyStart DateEnd Date Jason Tinajero MD [address] [place] [phone] PCP - GeneralFamily Envkming86/11/24 Ailin Green MD [address] [place], [place] [phone] Referring PhysicianFamily Durvschn67/11/24 Ailin Green MD [address] [place], [place] [address] Referring PhysicianFami Wqwgbuox84/21/24Team MemberRelationshipSpecialtyStart End Jason Tinajero MD [address] [place] [phone] PCP - GeneralFamily Vrbudlit98/11/24 Ailin Green MD [address] [place], [place] [address] Referring PhysicianFamily Esnvsxeq75/11/24 Ailin Green MD [address] [place] [address] Referring PhysicianFamily Jetgbeih32/21/24Team MemberRelationshipSpecialtyStart DateEnd Date Jason Tinajero MD [address] [place] [address] PCP - GeneralFamily Rfngrcym20/11/24 Ailin Green MD [address] [place] [address] Referring PhysicianFamily Hagqyvdj95/11/24 Ailin Green MD [address] [place] [address] 31897 Referring PhysicianFamily Meohoirr85/21/24Team MemberRelationshipSpecialtyStart DateEnd Date Ailin Green MD [address] [place] [address]85[address] Referring PhysicianFamily Obfttakv31/11/24 Ailin Green MD [address] [place], [place] [address] Referring PhysicianFamily Gebbgdca52/21/24 Lucas Arenas DO [address] [place] [address] Referring PhysicianNeurolog08/07/24Team MemberRelationshipSpecialtyStart DateEnd Date Ailin Green MD [address] [place], [place] [phone] Referring PhysicianFamily Cvekpvse62/11/24 Ailin Green MD [address] [place] [address]98 Referring PhysicianFamily Ajeyemmy14/21/24 Lucas Arenas DO [address] [place] [phone] Referring PhysicianNeurology1Team MemberRelationshipSpecialtyStart DateEnd Date Ailin Green MD [address] [place] [address] Referring PhysicianFamily Pbqlgtbi98/11/24 Ailin Green MD [address] [place] [address] Referring PhysicianFamily Awmtrbiz07/21/24 Lucas Arenas DO [address] [address] Referring PhysicianNeurolog08/07/24Team MemberRelationshipSpecialtyStart DateEnd Date Ailin Green MD [address] [place] [address] Referring PhysicianFamily Rqybfeag64/11/24 Ailin Green MD [address] [place] [address] Referring PhysicianFamily Xbnzkqpf71/21/24 Lucas Arenas DO [address] [address] Referring PhysicianNeurology1Team MemberRelationshipSpecialtyStart DateEnd Date Ailin Green MD [address] [place] [address] Referring PhysicianFamily Tyqnecyh03/11/24 Ailin Green MD [address] [place] [address] Referring PhysicianFamily Ftaszlvw72/21/24 Lucas Arenas DO [address] [place] [phone] Referring PhysicianNeurology1Team MemberRelationshipSpecialtyStart DateEnd Ailni Green MD [address] [place] [address] Referring PhysicianFamily Tjtcehez60/11/24 Ailin Green MD [address] [place] [address] Referring PhysicianFamily Riwvxzjx84/21/24 Lucas Arenas DO [address] [place] [phone] Referring PhysicianNeurology1Team MemberRelationshipSpecialtyStart DateEnd Ailin Green MD [address] [place] [address] Referring PhysicianFamily Lkncidaz03/11/24 Ailin Green MD [address] [place] [address] Referring PhysicianFamily Fyobqorp71/21/24 Lucas Arenas DO [address] [address] Referring PhysicianNeurology1Team MemberRelationshipSpecialtyStart DateEnd Date Ailin Green MD [address] [place] [address] Referring PhysicianFamily Rtccpwpz61/11/24 [place] [address] [place], [place] [address] Referring PhysicianFamily Cmupsqps19/21/24 Lucas Arenas DO [address] [place] [phone] Referring PhysicianNeurolog08/07/24Team MemberRelationshipSpecialtyStart DateEnd Date Ailin Green MD [address] [place] [address] Referring PhysicianFamily Adsubtoz27/11/24 Ailin Green MD [address] [place], [place] [address] Referring PhysicianFamily Qgspqsye02/21/24 Lucas Arenas DO [address] [place] [address] Referring PhysicianNeurolog08/07/24Team MemberRelationshipSpecialtyStart DateEnd Ailin Green MD [address] [place] [address] Referring PhysicianFamily Mjrntkkw17/11/24 Ailin Green MD [address] [place], [place] [address] Referring PhysicianFamily Adunybch21/21/24 Lucas Arenas DO [address] [place] [phone] Referring PhysicianNeurology1/09/30Team MemberRelationshipSpecialtyStart DateEnd Date Margo Schumacher RD [address] [place] [address] DR [place], [facility]70 Registered DietitianNutrition09/26/24 MemberRelationshipSpecialtyStart Date End Date Margo Schumacher RD [address] [place] [address] Registered DietitianNutrition09/26/24Team MemberRelationshipSpecialtyStart Date End Date Margo Schumacher, RD [address] [place] [address] Registered DietitianNutrition09/26/24am MemberRelationshipSpecialtyStart Date End Date Margo Schumacher RD [address] [place] [address] Registered DietitianNutrition09/26/24Te MemberRelationshipSpecialtyStart Date End Date Margo Schumacher RD [address] [place] [address] Registered DietitianNutrition09/26/24Team MemberRelationshipSpecialtyStart Date End Date Margo Schumacher RD [address] [place] [address] Registered DietitianNutrition09/26/24 MemberRelationshipSpecialtyStart Date End Date Margo Schumacher RD [address] [place] [address] Registered DietitianNutrition09/26/24 MemberRelationshipSpecialtyStart Date End Date Margo Schumacher RD [address] [place] [address] Registered DietitianNutrition09/26/24Team MemberRelationshipSpecialtyStart Date End Date Margo Schumacher, RD [address] [place] [address] Registered DietitianNutrition2/21/25Team MemberRelationshipSpecialtyStart Date End Date Ailin Green CNP [address] [place] [address] PCP - GeneralInternal Medicine12/18/[address] [place] [address] [place] [address] Registered DietitianNutrition09/26/24Team MemberRelationshipSpecialtyStart Date End Date Jason Tinajero MD [address] [place] [address] PCP - GeneralFamily Nsxuyfdt80/11/241 Ailin Green MD [address] [place] [address] 23061 Referring PhysicianFamily Ojbcfctw54/11/24 Ailin Green MD [address] [place] [address] 24597 Referring PhysicianFamily Reukvslk53/21/24 Lucas Arenas DO [address] [place] [phone] Referring PhysicianNeurolog08/07/24 Goals (unrecognized section and content) Goals may be documented in a n alternate section Reason for Visit (unrecogniz ed section and content) ReasonCommentsCerumen ImpactionBilateralHearing LossLateralityReasonOnset Date CommentsNeed office notes faxed08/13/2024ReasonCommentsHearing ProblemReason Onset DateCommentsCheck PT judhfh8809/23/2024ReasonCommentsPatient EducationReason CommentsNutrition TelephoneReasonCommentsFuture AppointmentSchedule Simulation ReasonCommentsLymphomaReasonCommentsRadiotherapy On-treatment VisitReason CommentsNutrition TelephoneNo answerReasonCommentsHodgkin's Disease Source Comments (unrecognize d section and content) In the event this informatio n is protected by the Federal Confidentiality of Alcohol and Drug Abuse Patient Records regulations: The Federal rules restrict any use of the information to criminally investigate or prosecute any alcohol or drug abuse patient.[facility] Center[facility] the event this information is protected by the Federal Confidentiality of Alcohol and Drug Abuse Patient Records regulations: The Federal rules restrict any use of the information to criminally investigate or prosecute any alcohol or drug abuse patient.[facility] CenterIn the event this information is protected by the Federal Confidentiality of Alcohol and Drug Abuse Patient Records regulations: The Federal rules restrict any use of the information to criminally investigate or prosecute any alcohol or drug abuse patient.[facility] CenterIn the event this information is protected by the Federal Confidentiality of Alcohol and Drug Abuse Patient Records regulations: The Federal rules restrict any use of the information to criminally investigate or prosecute any alcohol or drug abuse patient.[facility] CenterIn the event this information is protected by the Federal Confidentiality of Alcohol and Drug Abuse Patient Records regulations: The Federal rules restrict any use of the information to criminally investigate or prosecute any alcohol or drug abuse patient.[facility] CenterIn the event this information is protected by the Federal Confidentiality of Alcohol and Drug Abuse Patient Records regulations: The Federal rules restrict any use of the information to criminally investigate or prosecute any alcohol or drug abuse patient.[facility] CenterIn the event this information is protected by the Federal Confidentiality of Alcohol and Drug Abuse Patient Records regulations: The Federal rules restrict any use of the information to criminally investigate or prosecute any alcohol or drug abuse patient.[facility] CenterIn the event this information is protected by the Federal Confidentiality of Alcohol and Drug Abuse Patient Records regulations: The Federal rules restrict any use of the information to criminally investigate or prosecute any alcohol or drug abuse patient.[facility] CenterIn the event this information is protected by the Federal Confidentiality of Alcohol and Drug Abuse Patient Records regulations: The Federal rules restrict any use of the information to criminally investigate or prosecute any alcohol or drug abuse patient.[facility] CenterIn the event this information is protected by the Federal Confidentiality of Alcohol and Drug Abuse Patient Records regulations: The Federal rules restrict any use of the information to criminally investigate or prosecute any alcohol or drug abuse patient.[facility] CenterIn the event this information is protected by the Federal Confidentiality of Alcohol and Drug Abuse Patient Records regulations: The Federal rules restrict any use of the information to criminally investigate or prosecute any alcohol or drug abuse patient.[facility] CenterIn the event this information is protected by the Federal Confidentiality of Alcohol and Drug Abuse Patient Records regulations: The Federal rules restrict any use of the information to criminally investigate or prosecute any alcohol or drug abuse patient.[facility] CenterIn the event this information is protected by the Federal Confidentiality of Alcohol and Drug Abuse Patient Records regulations: The Federal rules restrict any use of the information to criminally investigate or prosecute any alcohol or drug abuse patient.[facility] CenterIn the event this information is protected by the Federal Confidentiality of Alcohol and Drug Abuse Patient Records regulations: The Federal rules restrict any use of the information to criminally investigate or prosecute any alcohol or drug abuse patient.[facility] CenterIn the event this information is protected by the Federal Confidentiality of Alcohol and Drug Abuse Patient Records regulations: The Federal rules restrict any use of the information to criminally investigate or prosecute any alcohol or drug abuse patient.[facility] FOR RECORDS PERTAINING TO PATIENTS [...] BE BASED ON THE PRIMARY CLINICAL RECORDS. [facility]. provides no warranty or guarantee of the accuracy or completeness of information in this document.
== END 2025-07-14 14:36 | disposition home or self-care (01) ==
LOC: PST 14:35
PROVIDERS: PCP Nurse Practitioner Family; Visit Provider Surgery
DX: Z01.818 Encounter for other preprocedural examination (principal); Z85.72 Personal history of non-Hodgkin lymphomas; Z45.2 Encounter for adjustment and management of vascular access device

== ENCOUNTER 2025-07-22 09:59 | Day surgery (SDC) | payer MEDICARE, SELFPAY ==
--- OUTSIDE RECORDS SUMMARY | 2024-10-07 05:30 | XMS_ITS ---
Author Organization [facility] [place] Address [address] [place] [address] Care Team Providers Care Store Management Trainee Name Role Phone Ailin España Primary Care Provider Sonia Shanks Unavailable [phone] REASON FOR VISIT MD Encounters Encounter Location Date Provider Diagnosis [facility] [address] [place] [phone] 10/07/2024 Sonia Shanks Plan Of Treatment No Information Progress Notes * Hoang BONILLA WDOB: [birth year] (69 yo M)Acc No.[id number]:10/07/2024 UNLOCKED PROGRESS NOTE Progress Notes Patient: Hoang IVORY :?Sonia Donnelly M.D.:1955???Age:69 Y ???Sex:MaleDate:10/07/2024Phone:[phone]:[id number] [place], [id number]:Ailin España Subjective: * Chief Complaints: * 1 . MD. * Medical History: Objective: * Vitals: Assessment: Plan: * Treatment: * * Electronic signature of Sonia Shanks MD, [id number] on 07/22/2025 at 10:06 AM ESTSign off status: PendingVisit Status:?PEN (Pending) * Provider: Oneyda Donnelly M.D. Date: 0 10/07/2024 Generated for Printing/Faxing/eTransmitting on:?07/22/2025 10:06 AM EST
--- OUTSIDE RECORDS SUMMARY | 2024-11-18 08:00 | XMS_ITS ---
Author Organization [facility] [place] Address [address] [place] [address] Care Team Providers Care Outside Machinist Supervisor Name Role Phone Ailin España Primary Care Provider [phone] Sonia Shanks Unavailable [phone] REASON FOR VISIT MD Encounters Encounter Location Date Provider Diagnosis [facility] [address] [place] [phone] 11/18/2024 Sonia Shanks Plan Of Treatment No Information Progress Notes * Hoang BONILLA WDOB: [birth year] (69 yo M)Acc No.[id number]:11/18/2024 UNLOCKED PROGRESS NOTE Progress Notes Patient: Hoang IVORY :?Sonia Donnelly M.D.:1955???Age:69 Y ???Sex:MaleDate:11/18/2024Phone:[phone]:[id number], [id number]:Ailin España Subjective: * Chief Complaints: * 1 . MD. * Medical History: Objective: * Vitals: Assessment: Plan: * Treatment: * * Electronic signature of Sonia Shanks MD, [id number] on 07/22/2025 at 10:05 AM ESTSign off status: PendingVisit Status:?CONFPHONE (Voice) * Provider: Oneyda Donnelly M.D. Date: 0 11/18/2024 Generated for Printing/Faxing/eTransmitting on:?07/22/2025 10:05 AM EST
--- OUTSIDE RECORDS SUMMARY | 2024-12-23 08:30 | XMS_ITS ---
Author Organization The [facility] in [place] Address [address] [place] [address] Care Team Providers Care Communications Professor Name Role Phone Ailin España Primary Care Provider Sonia Shanks Unavailable [phone] REASON FOR VISIT MD Encounters Encounter Location Date Provider Diagnosis [facility] [address] [place] [phone] 12/23/2024 Sonia Shanks Plan Of Treatment No Information Progress Notes * Hoang BONILLA WDOB: [birth year] (69 yo M)Acc No.[id number]:12/23/2024 UNLOCKED PROGRESS NOTE Progress Notes Patient: Hoang IVORY :?Sonia Donnelly M.D.:1955???Age:69 Y ???Sex:MaleDate:12/23/2024Phone:[phone]:[address], [id number]:Ailin España Subjective: * Chief Complaints: * 1 . MD. * Medical History: Objective: * Vitals: Assessment: Plan: * Treatment: * * Electronic signature of Sonia Shanks MD, [id number] on 07/22/2025 at 10:04 AM ESTSign off status: PendingVisit Status:?CANC (Cancelled) * Provider: Oneyda Donnelly M.D. Date: 0 12/23/2024 Generated for Printing/Faxing/eTransmitting on:?07/22/2025 10:04 AM EST
--- OUTSIDE RECORDS SUMMARY | 2024-12-23 10:00 | XMS_ITS ---
Author Organization The [facility] in [place] Address [address] [place] [address] Care Team Providers Care Phlebotomist Associate Name Role Phone Ailin España Primary Care Provider Sonia Shanks Unavailable [phone] REASON FOR VISIT MD Encounters Encounter Location Date Provider Diagnosis [facility] [address] [place] [phone] 12/23/2024 Sonia Shanks Plan Of Treatment No Information Progress Notes * Hoang BONILLA WDOB: [birth year] (69 yo M)Acc No.[id number]:12/23/2024 UNLOCKED PROGRESS NOTE Progress Notes Patient: Hoang IVORY :?Sonia Donnelly M.D.:1955???Age:69 Y ???Sex:MaleDate:12/23/2024Phone:[phone]:[address] [place], [id number]:Ailin España Subjective: * Chief Complaints: * 1 . MD. * Medical History: Objective: * Vitals: Assessment: Plan: * Treatment: * * Electronic signature of Sonia Shanks MD, [id number] on 07/22/2025 at 10:05 AM ESTSign off status: PendingVisit Status:?PEN (Pending) * Provider: Oneyda Donnelly M.D. Date: 0 12/23/2024 Generated for Printing/Faxing/eTransmitting on:?07/22/2025 10:05 AM EST
--- OUTSIDE RECORDS SUMMARY | 2025-01-26 04:00 | XMS_ITS ---
Author Organization The [facility] in [place] Address [address] [place] [address] Care Team Providers Care Health Care Administrator Name Role Phone Ailin España Primary Care Provider [phone] Sonia Shanks Unavailable [phone] REASON FOR VISIT CL.5 Encounters Encounter Location Date Provider Diagnosis [facility] [address] [place] [phone] 01/26/2025 Sonia Shanks Plan Of Treatment No Information Progress Notes * Hoang BONILLA WDOB: [birth year] (69 yo M)Acc No.[id number]:01/26/2025 UNLOCKED PROGRESS NOTE Progress Note Patient: Hoang IVORY :?Sonia Donnelly M.D.:1955???Age:69 Y ???Sex:MaleDate:01/26/2025Phone:[phone]:[address], [id number]:Ailin España Subjective: * Chief Complaints: * 1 . CL.5. * Medical History: Objective: * Vitals: Assessment: Plan: * Treatment: * * Electronic signature of Sonia Shanks MD, [id number] on 07/22/2025 at 10:04 AM ESTSign off status: PendingVisit Status:?PEN (Pending) * Provider: Oneyda Donnelly M.D. Date: 0 01/26/2025 Generated for Printing/Faxing/eTransmitting on:?07/22/2025 10:04 AM EST
--- OUTSIDE RECORDS SUMMARY | 2025-02-17 04:30 | XMS_ITS ---
Author Organization The [facility] in [place] Address [address] [place] [address] Care Team Providers Care Medical Representative Name Role Phone Ailin España Primary Care Provider Sonia Shanks Unavailable [phone] REASON FOR VISIT MD Encounters Encounter Location Date Provider Diagnosis [facility] [address] [place] [phone] 02/17/2025 Sonia Shanks Plan Of Treatment No Information Progress Notes * Hoang BONILLA WDOB: [birth year] (69 yo M)Acc No.[id number]:02/17/2025 UNLOCKED PROGRESS NOTE Progress Notes Patient: Hoang IVORY :?Sonia Donnelly M.D.:1955???Age:69 Y ???Sex:MaleDate:02/17/2025Phone:[phone]:[address], [place]Osf:Ailin España Subjective: * Chief Complaints: * 1 . MD. * Medical History: Objective: * Vitals: Assessment: Plan: * Treatment: * * Electronic signature of Sonia Shanks MD, [id number] on 07/22/2025 at 10:06 AM ESTSign off status: PendingVisit Status:?PEN (Pending) * Provider: Oneyda Donnelly M.D. Date: 0 02/17/2025 Generated for Printing/Faxing/eTransmitting on:?07/22/2025 10:06 AM EST
--- OUTSIDE RECORDS SUMMARY | 2025-06-09 06:00 | XMS_ITS ---
Author Organization [facility] in [place] Address [address] [place] [address] Care Team Providers Care Recycling Collections Driver Name Role Phone Ailin España Primary Care Provider JOAN HURLEY Unavailable [phone] REASON FOR VISIT MD Encounters Encounter Location Date Provider Diagnosis [facility] [address] [place] [phone] 06/09/2025 JOAN HURLEY Plan Of Treatment No Information Progress Notes * IRENEHoang WDOB: [birth year] (69 yo M)Acc No.[id number]:06/09/2025 UNLOCKED PROGRESS NOTE Progress Notes Patient: Hoang IVORY :?JOAN HURLEY M.D.:1955???Age:69 Y ???Sex:MaleDate:06/09/2025Phone:[phone]:[address], [id number]:Ailin España Subjective: * Chief Complaints: * 1 . MD. * Medical History: Objective: * Vitals: Assessment: Plan: * Treatment: * * Electronic signature of JOAN HURLEY MD on 07/22/2025 at 10:05 AM ESTSign off status: PendingVisit Status:?CONFPHONE (Voice) * Provider: Oneyda HURLEY M.D. Date: 08/09/2024 Generated for Printing/Faxing/eTransmitting on:?07/22/2025 10:05 AM EST
--- NOTE | 2025-07-22 | OP_ITS ---
OPERATION DATE: 07/22/2025 PREOPERATIVE DIAGNOSIS: Infusaport no longer required. POSTOPERATIVE DIAGNOSIS: Infusaport no longer required. PROCEDURE: Removal of right external jugular Infusaport. SURGEON: Jassi Clemens M.D. ANESTHESIA: Local with 0.5% Marcaine plain. ESTIMATED BLOOD LOSS: Less than 7 mL. INDICATIONS AND CONSENT: Patient is a 69-year-old male with history of right external jugular Infusaport insertion for chemotherapy. He no longer requires the port. He has completed his treatments and Oncology has requested removal. Indications, risks, benefits, alternatives of removal of the port under local anesthesia were explained extensively to the patient, including the risks of bleeding, infection, scarring, pain, catheter fracture, need for further surgery. All of his questions were answered. Informed consent was obtained. PROCEDURE: Patient brought to the operating room, placed in the supine position. He was prepped and draped in the usual sterile fashion. The area of the previous scar, just above the port was anesthetized with 0.5% Marcaine, as was the area around the port and below the port. Previous incision was then opened with the scalpel blade and carried down through subcutaneous tissue using sharp dissection. Prolene sutures were removed. The port was freed up. The tract going up to the external jugular was suture ligated with a 3-0 Monocryl suture. Once the catheter was removed, it was removed intact in its entirety. There was good hemostasis. The scar capsule was excised using electrocautery. The wound was irrigated with good hemostasis. The subcutaneous tissue was re- approximated with interrupted 3-0 Monocryl suture. The skin was then closed with a running 4-0 subcuticular Monocryl suture and skin glue. A sterile pressure dressing was applied. Sponge and needle counts were correct x2 per nursing personnel. Patient tolerated procedure well, was sent to recovery room in good condition. CC: LATASHA Myers
--- OUTSIDE RECORDS SUMMARY | 2025-07-22 10:04 | XMS_ITS | Clinical Summary ---
Author Organization [employer] tem Address [id number] [address] [place] [address] Care Team Providers Care Kindergarten Assistant Name Role Phone Unavailable Primary Care Provider [...] Assigned at BirthMale 05/15/2024 2:41 PM EDTLegal GtrHdmb03/10/2024 2:40 PM EDTGender IdentityMale 05/15/2024 2:41 PM EDTSexual YqhgewkvwnsPttumfqf04/10/2024 2:41 PM EDT Last Filed Vital Signs Vital SignReadingTime TakenCommentsBlood Pressure--Pulse--Rknoizjufub37.3 ??C (97.3 ??F)07/29/2024 9:12 AM ESTRespiratory Rate--Oxygen Saturation--Inhaled Oxygen Concentration--Xidvyt74.2 kg (176 lb 12.8 oz)07/29/2024 9:12 AM ESTHeight 188 cm (6' 2 )07/29/2024 9:12 AM ESTBody Mass Index22.7109/29/2023 9:12 AM EST Plan of Treatment Health MaintenanceDue DateLast DoneCommentsDepression Ziinuolsh90/28/1968 DTaP,Tdap and Td Vaccines (1 - Tdap)1975Zoster (Shingles) Vaccine (1 of 2) 1975Fall Risk Lopchafsf22/28/2021Influenza Vpsvori4504/06/2025dult BMI Uooxqtfel23Tobacco Mnlhuhdlr324RSV ( or age 60+ yrs) (1 - 1-dose 75+ series)2031 Medical Devices Not on file Insurance
--- OUTSIDE RECORDS SUMMARY | 2025-07-22 10:06 | XMS_ITS | Clinical Summary ---
Author Organization [facility] Address [address] [place] [address] Care Team Providers Care Business Development Representative Name Role Phone Ailin España MD Unavailable [phone] Ailin España MD Unavailable [phone] Lucas Arenas DO Unavailable [phone] Allergies No known active allergies Medications MedicationSigDispense [...] Last Filed Vital Signs Vital SignReadingTime TakenCommentsBlood Sriyyhpb19/62008/07/2024 10:05 AM EST Ndllu371908/07/2024 10:05 AM ESTTemperature--Respiratory Rate--Oxygen Saturation 96%08/07/2024 10:05 AM ESTInhaled Oxygen Concentration--Fpdlin58.3 kg (183 lb 9.6 oz)08/07/2024 10:05 AM QPNDphvse815 cm (6' 2 )06/17/2024 12:25 PM ESTBody Mass Index23.5706/17/2024 12:25 PM EST Plan of Treatment Not on file Insurance Care Teams Team MemberRelationshipSpecialtyStart DateEnd Date Ailin España MD [address] [place] [address] Referring PhysicianFamily Drsfmlaq88/11/24 Ailin España MD [address] [place] [address] Referring PhysicianFamily Zdnjkvhg41/21/24 Lucas Arenas DO [address] [place], [place] [address] Referring PhysicianNeurology1
--- OUTSIDE RECORDS SUMMARY | 2025-07-22 10:06 | XMS_ITS | Clinical Summary ---
Author Organization [facility] Address [address] [place] [address] Care Team Providers Care College Coach Name Role Phone Ailin España CNP Primary Care Provider [phone] Allergies Active AllergyReactionsCriticalityNoted NutyImoqhwopZlzhatdticggiFaeew57/22/2024 Medications MedicationSigDispense QuantityRefillsLast FilledStart DateEnd DateStatus metFORMIN [...] tablet 5Active Active Problems ProblemNoted DateDiagnosed DateAcoustic fhrrmmx2009/15/2024 Overview (09/15/2024): Outside Source Comment: Comment on above: removed- right ear Iwsrnji4809/15/2024PH with obstruction/lower urinary tract zmjthaap72/10/2025 Diabetes wljawjps65/10/3928Icbycbdtia93/10/2025History of brain tumor09/15/2024 Dekzeyaxttlgzz98/10/2025Lymphadenopathy, jkfendaz28/10/2025Nodular sclerosis Hodgkin lymphoma of lymph nodes of upper bhforeqit34/10/2025Non-Hodgkin lymphoma 09/15/2024OAB (overactive bladder)09/15/2024Poor venous eaupva2909/15/2024 Screening PSA (prostate specific antigen)09/15/2024OSA (obstructive sleep apnea) 02/25/2024Non-rheumatic mitral qrcewqhcpnlpw74/22/2024Nonrheumatic aortic valve bhcvakukxcqfx06/22/2024rimary wlwgivonsnpl33/22/2024ulmonary arterial hxwoijcpfrnw26/15/2017 Family History Medical HistoryRelationNameCommentsCoronary artery diseaseMotherRelationName StatusCommentsFatherDeceasedMotherDeceased Social History Tobacco UseTypesPacks/DayYears UsedDateSmoking Tobacco: NeverSmokeless Tobacco: NeverAlcohol UseStandard Drinks/WeekCommentsYes0 (1 standard drink = 0.6 oz pure alcohol)occasionalSex and Gender InformationValueDate RecordedSex Assigned at MhfhcLbwt20/13/2025 2:03 PM EDTLegal SrhGawm7402/02/2022 12:01 AM EDTGender BirnjoceDzcp32/13/2025 2:03 PM EDTSexual OrientationHeterosexual or Straight 03/18/2025 2:03 PM EDT Last Filed Vital Signs Vital SignReadingTime TakenCommentsBlood Sstnxhab574/72003/23/2025 10:43 AM EDT Sooum898803/23/2025 10:43 AM EDTTemperature--Respiratory Rate--Oxygen Saturation 97%03/23/2025 10:43 AM EDTInhaled Oxygen Concentration--Ylpxii39.8 kg (198 lb) 03/23/2025 10:43 AM OEBChrvny201 cm (6' 2 )03/23/2025 10:43 AM EDTBody Mass Index25.42003/23/2025 10:43 AM EDT Plan of Treatment Health MaintenanceDue DateLast DoneCommentsCT Eoqgikwxwhxg1956olonoscopy 1956Diabetes: Hemoglobin A1C1956FOBT1956Medicare Annual Wellness (AWV)1955 5601Wviajumfxzlod1956OVID-19 Vaccine (#1)1961 Diabetes: Retinopathy Ivmpgesmt63/28/1966Depression Eqovlfwev08/28/1968Diabetes: Urine Protein Eojcadhwt26/28/1975Zoster Vaccines (1 of 2)1975Adult Tetanus 1978Pneumococcal Vaccine: 50+ Years (2 of 2 - PCV)Fall Risk Pgoygajdx95/28/5507EKU76/2Colorectal Cancer Screening 09/05/2024FIT-DNA501/Influenza Vaccine (#1)2025HIB VaccinesAged OutNo [...] topic Insurance Care Teams Team MemberRelationshipSpecialtyStart DateEnd Date Ailin España CNP [facility], [place] [phone] [facility]/25/24
--- OUTSIDE RECORDS SUMMARY | 2025-07-22 10:06 | XMS_ITS | Clinical Summary ---
Author Organization [facility] Address [address] [place] [address] Care Team Providers Care Customer Support Executive Name Role Phone Daly Beckmansanta SOTO Unavailable [phone] Ailin España CNP Primary Care Provider [phone] [...] 09/25/2024State Score (1-10), lower number is lower vwmc03809/25/2024Data from: https://www.[email or web address]/. Last address used for nsqjo[address]vamn[address]09/25/2024Sex and Gender InformationValueDate RecordedSex Assigned at BirthNot on fileLegal ChjCpov10/02/2012 7:33 AM ESTGender Identity Not on fileSexual OrientationNot on file Last Filed Vital Signs Vital SignReadingTime TakenCommentsBlood Eacpjwgg901/65012/18/2024 10:31 AM EDT Xdpnf591212/18/2024 10:31 AM BRLDcdbdlndqcq78.3 ??C (97.3 ??F)11/13/2024 10:00 AM EDTRespiratory Zyyh364412/18/2024 10:31 AM EDTOxygen Wuthymzahf00%12/18/2024 10:31 AM EDTInhaled Oxygen Concentration--Lvwhjj82.2 kg (185 lb 10 oz)12/18/2024 10:31 AM LMDZpsebz170.2 cm (6' 2.5 )09/25/2024 9:12 AM ESTBody Mass Index23.51 09/25/2024 9:12 AM EST Plan of Treatment Health MaintenanceDue DateLast DoneCommentsAnxiety Diabgpguu79/28/1974Depression Rustkogae65/28/1974Hepatitis C Bcozujzvy79/28/1974DTaP,Tdap,Td Vaccine (1 - Tdap)1975Lipid Xkklgctic71/28/1991CT Clqubrstfzgu19/28/2001Colonoscopy 2001Fecal Occult Blood2001Prostate Cancer Screening Discussion 08/02/20018969Kzfyastbxyjfq51/28/2001RSV Vaccine (1 - Risk 50-74 years 1-dose series)2006Shingrix Vaccine (1 of 2)2006Diabetes Iynjlsbph55/27/2009 10/02/2005, 10/01/2005, 09/30/2005, Additional history existsPneumococcal Vaccine: 50+ (2 of 2 - PCV)Advance Directive Discussion 08/06/2024Medicare Advantage Annual Wellness Visit5Cologuard (FIT-DNA) 5009/05/2021olorectal Cancer Ielbldmsz63/31/2025Covid-19 Vaccine ( - season)2025Influenza Vaccine (#1)2025 Procedures Procedure NamePriorityDate/TimeAssociated DiagnosisCommentsBASIC METABOLIC PANEL 10/02/2005 7:33 AM EST from Last 3 Months or Most Recently Relevant to Health Maintenance Results * (ABNORMAL) BASIC METABOLIC PNL (10/02/2005 7:33 AM EST)ComponentValueRef Range Test MethodAnalysis TimePerformed AtPathologist HtodawhxoSacqhsa175(A)65 - 100 mg/dLSELECT [facility] JNYNIT4246 - 25 mg/dLSELECT [facility]ICAL [facility] LABCreatinine0.9 0.7 - 1.4 mg/dLSELECT [facility]ICAL [facility] OMHAvlbqz717571 - 146 mmol/[facility] LABPotassium4.43.5 - 5.0 mmol/[facility] WVBPmdgjstb01(A)98 - 110 mmol/[facility] WTFMU40602 - 32 mmol/[facility] LABAnion Fra526 - 15 mmol/[facility] LABCalcium9.78.5 - 10.5 mg/dLSELECT [facility]ICAL [facility] LAB Specimen (Source)Anatomical Location / LateralityCollection Method / Volume Collection TimeReceived Time10/02/2005 7:33 AM EST Narrative Authorizing ProviderResult TypeResult StatusGordon B (Hist) HughesLABORATORY Final ResultPerforming OrganizationAddressCity/State/ZIP CodePhone Number [facility] LAB [address] [place] [address] from Last 3 Months or Most Recently Relevant to Health Maintenance Insurance Care Teams Team MemberRelationshipSpecialtyStart DateEnd Ailin España, PROPAGATOR [address] [place] [address] PCP - GeneralInternal Medicine12/18/[address] [place] [address] [place] [address] Registered DietitianNutrition09/26/24
--- OUTSIDE RECORDS SUMMARY | 2025-07-22 10:06 | XMS_ITS | Patient Health Record ---
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 Clutch Name Role Phone Ailin Green Primary Care Provider [phone] zzChawla, Joan Unavailable [phone] MEI, JOAN Unavailable [phone] Allergies No Known Allergies Results Component Value Reference Range Notes Manual Differential Reviewed date:08/18/2024 08:27:53 AM Interpretation: Performing Lab: Notes/Report: [facility] , Segmented Neutrophils % Manual 67.0 43.0-75.0 Band Neutrophils %4.00-5 %Lymphocytes Percent Imcuzd80.020.5-60.0 %Monocytes Percent Tnajxc38.01.7-12.0 %Eosinophils Percent Manual4.00.9-7.0 %Basophils Percent Manual0.00.2-2.0 %Metamyelocytes %1.0Segmented Neut Absolute Manual8.10 1.4-6.5 10 3/uLBand Neutrophils Absolute0.50.0-0.3 10 3/uLLymphocytes Absolute Manual1.691.20-3.80 10 3/uLMonocytes Absolute Manual1.210.30-0.80 10 3/uL Eosinophils Absolute Manual0.480.00-0.70 10 3/uLBasophils Abs Manual0.000.00- 0.10 10 3/uLMetamyelocytes Absolute Manual0.80Xdcxijdwddqe3+Performing Lab:see noteML - [facility] LBTSH Reviewed date:08/12/2024 04:06:27 PM Interpretation: Performing Lab: Notes/Report: [facility] ,Thyroid Stimulating Hormone1.6280.358-3.740 uIU/mLPerforming Lab:see priyanka - [facility] LBVitamin B6, Plasma Reviewed date:08/15/2024 02:42:20 PM Interpretation: Performing Lab: Notes/Report: [facility] ,Vitamin B6, Plasma2.33.4-65.2 ug/L This test was developed and its performance characteristics determined by [facility]. It has not been cleared or approved by the Food and Drug Administration. Deficiency: <3.4 Marginal: 3.4 - 5.1 Adequate: >5.1 Performed at: [address] [id number] Franchise Sales Manager: Ash Wilcox MD, Phone: [phone] Performing Lab:see [facility] LBVitamin B12 Reviewed date:08/13/2024 09:05:33 AM Interpretation: Performing Lab: Notes/Report: [facility] ,Vitamin L894896420-1214 pg/mL Performed at: [address] [id number] Franchise Sales Manager: Neville Long PhD, Phone: [phone] Performing Lab:see [facility] LBFERRITIN Reviewed date:08/18/2024 08:27:53 AM Interpretation: Performing Lab: Notes/Report: [facility] ,Geayzlxc5479.026.0-388.0 ng/mLPerforming Lab:[facility] LBCBC AUTO DIFF (Not yet reviewed by provider) Interpretation: Performing Lab: Notes/Report: [facility] ,White Blood Count13.54.0-11.0 10 3/uLRed Blood Count4.634.70-6.10 10 6/uL Crhnlhbrbn07.114.0-18.0 g/kOEfvbgripan36.042.0-54.0 %Mean Corpuscular Ajxobq25.6 80.0-94.0 fLMean Corpuscular Luojivtjim38.325.9-34.0 pgMean Corpuscular HGB Conc 32.029.9-35.2 g/dLRed Cell Distribution Width21.111.0-15.0 %Platelet Cldev302 150-450 10 3/uLMean Platelet Luspfi32.09.5-13.5 fLPerforming Lab:see note - [facility] LBLDH (Not yet reviewed by provider) Interpretation: Performing Lab: Notes/Report: [facility] ,Lactate Mwpjwrzitpjqx36499-640 U/LPerforming Lab:see note - [facility] LBPROF 14(COMP METB) (Not yet reviewed by provider) Interpretation: Performing Lab: Notes/Report: [facility] ,Mynrkm735043-107 mmol/LPotassium4.13.5-5.1 mmol/FPhnuhhzr80668-918 mmol/LCarbon Ljlnqtd89.121.0-32.0 mmol/LAnion Gap6.3Grzhwvu54988-180 mg/dLBlood Urea Nitrogen 15.07.0-18.0 mg/dLCreatinine0.860.70-1.30 mg/dLEstimated GFR ( Samantha>60 >=60 mL/min/1.73m 2Estimated GFR (Non- Aury>60>=60 mL/min/1.73m 2BUN Creatinine Ratio17.3Ikbuuxb9.18.5-10.1 mg/dLBilirubin Total0.30.2-1.0 mg/dL Aspartate Amino Fcbvfyzfmvp9869-53 U/LAlanine Ifrotzxuysvpuafs8021-87 U/L Alkaline Zldsopfhtdo37764-327 U/LTotal Protein6.56.4-8.2 g/dLAlbumin Level3.2 3.4-5.0 g/dLGlobulin3.3Albumin Globulin Ratio1.0Performing Lab:see note - [facility] LBPET skull to mid thigh (Not yet reviewed by provider) Interpretation: Performing Lab: Notes/Report: Source Facility: [facility]-[address] [place] [address] [place] [address] PET Report Signed Patient: HOANG TRAN MR#: [id number] : 1955 Acct:[id number] Age/Sex: 69 / M ADM Date: 09/08/24 Loc: PETCT Attending Dr: Joan Donnelly M.D. Ordering Physician: Joan Donnelly M.D. Date of Service: 09/08/24 Procedure(s): PET skull to mid thigh Accession Number(s): [id number] cc: AILIN GREEN ; Joan Donnelly M.D. [place] [address] Patient Name: HOANG TRAN MRN: [facility]:[id number] date: 1955 Sex: M Assigned Patient Location: PETCT Current Patient Location: PETCT Accession/Order Number: [id number] Exam Date: 09/08/2024 15:00 Report Date: 09/15/2024 [...] Signed By: 09/15/24 1505 DD/ 1502 TD/TT: Industry Operations Investigator:CBC AUTO DIFF (Not yet reviewed by provider) Interpretation: Performing Lab: Notes/Report: [facility] ,White Blood Count17.54.0-11.0 10 3/uLRed Blood Count4.544.70-6.10 10 6/uL Wpruehpnfa91.614.0-18.0 g/qTPobgzkslga92.542.0-54.0 %Mean Corpuscular Wlbmfg12.4 80.0-94.0 fLMean Corpuscular Zuvgjfpofn62.025.9-34.0 pgMean Corpuscular HGB Conc 32.829.9-35.2 g/dLRed Cell Distribution Width16.811.0-15.0 %Platelet Vxkgp129 150-450 10 3/uLMean Platelet Lqsfem69.09.5-13.5 fLNeutrophils Percent Auto79.4 43.0-75.0 %Lymphocytes Percent Auto7.720.5-60.0 %Monocytes Percent Auto8.51.7- 12.0 %Eosinophils Percent Auto2.70.9-7.0 %Basophils Percent Auto0.90.2-2.0 % Immature Granulocytes Pct Auto0.80.0-0.5 %Neutrophils Absolute Auto13.91.4-6.5 10 3/uLLymphocytes Absolute Auto1.31.2-3.8 10 3/uLMonocytes Absolute Auto1.50.3- 0.8 10 3/uLEosinophils Absolute Auto0.50.0-0.7 10 3/uLBasophils Absolute Auto0.2 0.0-0.1 10 3/uLImmature Granulocytes Abs Auto0.140.00-0.03 10 3/uLPerforming Lab:see noteML - [facility] LBMAGNESIUM (Not yet reviewed by provider) Interpretation: Performing Lab: Notes/Report: [facility] ,Magnesium1.91.8-2.4 mg/dLPerforming Lab:see note - [facility] LB PROF 14(COMP METB) (Not yet reviewed by provider) Interpretation: Performing Lab: Notes/Report: [facility] ,Ptnpth825726-162 mmol/LPotassium4.43.5-5.1 mmol/FYlfpfgap72472-415 mmol/LCarbon Zpnvwrn45.421.0-32.0 mmol/LAnion Gap8.3Pfuuxkw15509-633 mg/dLBlood Urea Nitrogen 16.07.0-18.0 mg/dLCreatinine0.780.70-1.30 mg/dLEstimated GFR ( Samantha>60 >=60 mL/min/1.73m 2Estimated GFR (Non- Aury>60>=60 mL/min/1.73m 2BUN Creatinine Ratio20.4Dijhycg2.88.5-10.1 mg/dLBilirubin Total0.40.2-1.0 mg/dL Aspartate Amino Xuxymekzzut7854-35 U/LAlanine Qqnmxpceoxvxspdy6027-97 U/L Alkaline Augipxwdzzk83432-282 U/LTotal Protein6.36.4-8.2 g/dLAlbumin Level3.2 3.4-5.0 g/dLGlobulin3.1Albumin Globulin Ratio1.0Performing Lab:see noteML - [facility] LBCBC AUTO DIFF (Not yet reviewed by provider) Interpretation: Performing Lab: Notes/Report: [facility] ,White Blood Count7.64.0-11.0 10 3/uLRed Blood Count4.584.70-6.10 10 6/uL Xrnwfxjagk21.814.0-18.0 g/bLAcfxbgxfgy15.842.0-54.0 %Mean Corpuscular Zthvos04.4 80.0-94.0 fLMean Corpuscular Olzotefbcw75.125.9-34.0 pgMean Corpuscular HGB Conc 32.229.9-35.2 g/dLRed Cell Distribution Width13.911.0-15.0 %Platelet Avenz184 150-450 10 3/uLMean Platelet Xfpkyp79.09.5-13.5 fLNeutrophils Percent Auto63.6 43.0-75.0 %Lymphocytes Percent Auto8.220.5-60.0 %Monocytes Percent Auto7.91.7- 12.0 %Eosinophils Percent Auto19.60.9-7.0 %Basophils Percent Auto0.40.2-2.0 % Immature Granulocytes Pct Auto0.30.0-0.5 %Neutrophils Absolute Auto4.81.4-6.5 10 3/uLLymphocytes Absolute Auto0.61.2-3.8 10 3/uLMonocytes Absolute Auto0.60.3-0.8 10 3/uLEosinophils Absolute Auto1.50.0-0.7 10 3/uLBasophils Absolute Auto0.00.0- 0.1 10 3/uLImmature Granulocytes Abs Auto0.020.00-0.03 10 3/uLPerforming Lab:see noteML - [facility] LBCRP (Not yet reviewed by provider) Interpretation: Performing Lab: Notes/Report: [facility] ,C Reactive Protein<0.50<=0.50 mg/dLPerforming Lab:see note - [facility] LBIRON AND TIBC (Not yet reviewed by provider) Interpretation: Performing Lab: Notes/Report: [facility] ,Quiy911.065.0-175.0 ug/dLTotal Iron Binding Mvpclorm662.0250.0-450.0 ug/dL Percent Iron Cbfjoqugrh39.8Performing Lab:see note - [facility] LB LDH (Not yet reviewed by provider) Interpretation: Performing Lab: Notes/Report: [facility] ,Lactate Jwzsrwmrwteyz49065-348 U/LPerforming Lab:see note - [facility] LBPROF 14(COMP METB) (Not yet reviewed by provider) Interpretation: Performing Lab: Notes/Report: [facility] ,Ytvohp224256-543 mmol/LPotassium4.13.5-5.1 mmol/BYtzhkfbn61051-544 mmol/LCarbon Wnzsbld05.821.0-32.0 mmol/LAnion Gap10.5Mkbsnyk04684-502 mg/dLBlood Urea Tnrdcwxi20.07.0-18.0 mg/dLCreatinine0.850.70-1.30 mg/dLEstimated GFR ( Samantha>60>=60 mL/min/1.73m 2Estimated GFR (Non- Aury>60>=60 mL/min/1.73m 2BUN Creatinine Ratio23.1Brzhapv2.28.5-10.1 mg/dLBilirubin Total0.50.2-1.0 mg/dL Aspartate Amino Beacurxqlqq2029-71 U/LAlanine Lbdfqavjvbahgjhv0255-14 U/L Alkaline Hmomwuozkyh0540-428 U/LTotal Protein6.36.4-8.2 g/dLAlbumin Level3.13.4- 5.0 g/dLGlobulin3.2Albumin Globulin Ratio1.0Performing Lab:see note - [facility] LBErythrocyte Sedimentation Rate (Not yet reviewed by provider) Interpretation: Performing Lab: Notes/Report: [facility] ,Erythrocyte Sedimentation Rate11<=20 mm/hrPerforming Lab:see note - [facility] LBPET skull to mid thigh (Not yet reviewed by provider) Interpretation: Performing Lab: Notes/Report: Source Facility: [place] [address] PET Report Signed Patient: HOANG TRAN MR#: [id number] : 1955 Acct:[id number] Age/Sex: 69 / M ADM Date: 12/15/24 Loc: PETCT Attending Dr: Joan Donnelly M.D. Ordering Physician: Joan Donnelly M.D. Date of Service: 12/15/24 Procedure(s): PET skull to mid thigh Accession Number(s): [id number] cc: AILIN GREEN ; Joan Donnelly M.D. [place] [address] Patient Name: HOANG TRAN MRN: [id number] date: 1955 Sex: M Assigned Patient Location: PETCT Current Patient Location: Accession/Order Number: [id number] Exam Date: 12/16/2024 09:23 Report Date: 12/16/2024 [...] Guidry M.D. 12/16/2024 9:43 AM Dictation Location: [place] [address] Electronically authenticated by: [id number] Y Date: 12/16/2024 09:43 Dictated By: Evelyn Guidry M.D. Signed By: 12/16/24 0945 DD/ 0943 TD/TT: Industry Operations Investigator:CBC AUTO DIFF (Not yet reviewed by provider) Interpretation: Performing Lab: Notes/Report: [facility] ,White Blood Count7.44.0-11.0 10 3/uLRed Blood Count5.104.70-6.10 10 6/uL Uctgpwvzdc61.614.0-18.0 g/jRPcaodyyxpw90.042.0-54.0 %Mean Corpuscular Eubrhf78.2 80.0-94.0 fLMean Corpuscular Xodzupznjt40.625.9-34.0 pgMean Corpuscular HGB Conc 33.929.9-35.2 g/dLRed Cell Distribution Width13.211.0-15.0 %Platelet Kepdz349 150-450 10 3/uLMean Platelet Volume9.89.5-13.5 fLNeutrophils Percent Auto71.3 43.0-75.0 %Lymphocytes Percent Auto13.220.5-60.0 %Monocytes Percent Auto9.51.7- 12.0 %Eosinophils Percent Auto5.00.9-7.0 %Basophils Percent Auto0.70.2-2.0 % Immature Granulocytes Pct Auto0.30.0-0.5 %Neutrophils Absolute Auto5.21.4-6.5 10 3/uLLymphocytes Absolute Auto1.01.2-3.8 10 3/uLMonocytes Absolute Auto0.70.3-0.8 10 3/uLEosinophils Absolute Auto0.40.0-0.7 10 3/uLBasophils Absolute Auto0.10.0- 0.1 10 3/uLImmature Granulocytes Abs Auto0.020.00-0.03 10 3/uLPerforming Lab:see noteML - [facility] LBLDH (Not yet reviewed by provider) Interpretation: Performing Lab: Notes/Report: [facility] ,Lactate Rxnvxgtarbjvy32368-716 U/LPerforming Lab:see note - [facility] LBPROF 14(COMP METB) (Not yet reviewed by provider) Interpretation: Performing Lab: Notes/Report: [facility] ,Wsximz831421-367 mmol/LPotassium4.23.5-5.1 mmol/EPuoazxif25838-167 mmol/LCarbon Yvvjpqx23.721.0-32.0 mmol/LAnion Gap9.8Egmimve20597-919 mg/dLBlood Urea Nitrogen 29.07.0-18.0 mg/dLCreatinine0.850.70-1.30 mg/dLEstimated GFR ( Samantha>60 >=60 mL/min/1.73m 2Estimated GFR (Non- Aury>60>=60 mL/min/1.73m 2BUN Creatinine Ratio34.2Tqjqwcp8.28.5-10.1 mg/dLBilirubin Total0.60.2-1.0 mg/dL Aspartate Amino Vtsadgsvorb9571-59 U/LAlanine Tlummrabaqrzngwy1551-95 U/L Alkaline Rgapgaswyyz0203-496 U/LTotal Protein7.06.4-8.2 g/dLAlbumin Level3.63.4- 5.0 g/dLGlobulin3.4Albumin Globulin Ratio1.1Performing Lab:see noteML - [facility] LBCBC AUTO DIFF (Not yet reviewed by provider) Interpretation: Performing Lab: Notes/Report: [facility] ,White Blood Count7.34.0-11.0 10 3/uLRed Blood Count4.964.70-6.10 10 6/uL Atmwnxvtns51.114.0-18.0 g/dIMsjfwbkpzu34.442.0-54.0 %Mean Corpuscular Byddqr23.5 80.0-94.0 fLMean Corpuscular Racyjnhbhx95.425.9-34.0 pgMean Corpuscular HGB Conc 33.329.9-35.2 g/dLRed Cell Distribution Width13.611.0-15.0 %Platelet Pplxa721 150-450 10 3/uLMean Platelet Volume9.79.5-13.5 fLNeutrophils Percent Auto68.8 43.0-75.0 %Lymphocytes Percent Auto14.320.5-60.0 %Monocytes Percent Auto9.81.7- 12.0 %Eosinophils Percent Auto5.90.9-7.0 %Basophils Percent Auto0.70.2-2.0 % Immature Granulocytes Pct Auto0.50.0-0.5 %Neutrophils Absolute Auto5.01.4-6.5 10 3/uLLymphocytes Absolute Auto1.11.2-3.8 10 3/uLMonocytes Absolute Auto0.70.3-0.8 10 3/uLEosinophils Absolute Auto0.40.0-0.7 10 3/uLBasophils Absolute Auto0.10.0- 0.1 10 3/uLImmature Granulocytes Abs Auto0.040.00-0.03 10 3/uLPerforming Lab:see noteML - [facility] LBLDH (Not yet reviewed by provider) Interpretation: Performing Lab: Notes/Report: [facility] ,Lactate Xmbmevtmsupkt76233-644 U/LPerforming Lab:see noteML - [facility] LBPROF 14(COMP METB) (Not yet reviewed by provider) Interpretation: Performing Lab: Notes/Report: [facility] ,Glauum063576-966 mmol/LPotassium4.53.5-5.1 mmol/ECwbjwbga43205-056 mmol/LCarbon Zyyzkpq04.621.0-32.0 mmol/LAnion Gap10.7Wwewnvu41781-224 mg/dLBlood Urea Vsvhmtbh87.07.0-18.0 mg/dLCreatinine0.880.70-1.30 mg/dLEstimated GFR ( Samantha>60>=60 mL/min/1.73m 2Estimated GFR (Non- Aury>60>=60 mL/min/1.73m 2BUN Creatinine Ratio22.2Aoqzbwh1.38.5-10.1 mg/dLBilirubin Total0.90.2-1.0 mg/dL Aspartate Amino Ouypntadwht0449-13 U/LAlanine Gbepyeposxzxkmqb6532-16 U/L Alkaline Djmtvedgauj6499-792 U/LTotal Protein7.06.4-8.2 g/dLAlbumin Level3.63.4- 5.0 g/dLGlobulin3.4Albumin Globulin Ratio1.1Performing Lab:see noteML - [facility] LBCT chest wo/w con (Not yet reviewed by provider) Interpretation: Performing Lab: Notes/Report: Source Facility: [place] [address] CT Scan Report Signed Patient: HOANG TRAN MR#: [id number] : 1955 Acct:[id number] Age/Sex: 69 / M ADM Date: 02/20/25 Loc: LAB Attending Dr: Jona Donnelly M.D. Ordering Physician: Joan Donnelly M.D. Date of Service: 02/20/25 Procedure(s): CT chest wo/w con Accession Number(s): [id number] cc: AILIN GREEN [place] [address] Patient Name: HOANG TRAN MRN: [id number] date: 1955 Sex: M Assigned Patient Location: LAB Current Patient Location: CARD Accession/Order Number: [id number] Exam Date: 02/20/2025 16:53 Report Date: 02/20/2025 [...] with slight nodular configuration. Right-sided Mediport represent Zxfjkh-r-Dhod device identified tip cavoatrial junction. Abd:[Upper abdominal [...] Landry M.D. 02/20/2025 5:01 PM Dictation Location: [place] [address] Electronically authenticated by: [id number] Y Date: 02/20/2025 17:01 Dictated By: Leno Landry M.D. Signed By: 02/20/25 1704 DD/ 00 TD/TT: Industry Operations Investigator:HERMELINDO echo doppler complete Reviewed date:02/23/2025 04:55:18 PM Interpretation: Performing Lab: Notes/Report: Source Facility: [facility]-[address] [place] [address] [place] [address] Cardiology Report Signed Patient: HOANG TRAN MR#: [id number] : 1955 Acct:[id number] Age/Sex: 69 / M ADM Date: 02/20/25 Loc: CARD Attending Dr: JEROD MANUEL Ordering Physician: JEROD MANUEL Date of Service: 02/20/25 Procedure(s): CA echo doppler complete Accession Number(s): [id number] cc: AILIN GREEN ; JEROD MANUEL Patient Name: HOANG TRAN MR#: [id number] : 1955 Exam Date: 02/20/2025 Ordering Doctor: [...] M.D. Signed By: 02/22/251805 DD/ 03 TD/TT: Industry Operations Investigator:BUN (Not yet reviewed by provider) Interpretation: Performing Lab: Notes/Report: [facility] ,Blood Urea Vkyvobnv45.07.0-18.0 mg/dLPerforming Lab:see note - [facility] LBCREATININE (Not yet reviewed by provider) Interpretation: Performing Lab: Notes/Report: [facility] ,Creatinine1.290.70-1.30 mg/dLEstimated GFR ( Samantha>60>=60 mL/min/1.73m 2Estimated GFR (Non- Ame55>=60 mL/min/1.73m 2Performing Lab:see noteML - [facility] LBCT ABDOMEN W CON (Not yet reviewed by provider) Interpretation: Performing Lab: Notes/Report: Source Facility: [facility]-[address] [place] [address] [place] [address] CT Scan Report Signed Patient: HOANG TRAN MR#: [id number] : 1955 Acct:[id number] Age/Sex: 69 / M ADM Date: 04/23/25 Loc: CT Attending Dr: Joan Donnelly M.D. Ordering Physician: Joan Donnelly M.D. Date of Service: 04/23/25 Procedure(s): CT abdomen w con Accession Number(s): [id number] cc: AILIN GREEN [place] [address] Patient Name: HOANG TRAN MRN: [facility]:[id number] date: 1955 Sex: M Assigned Patient Location: CT Current Patient Location: LAB Accession/Order Number: [id number] Exam Date: 04/23/2025 10:20 Report Date: 04/23/2025 11:12 At the request of: JOAN DONNELLY MD Procedure: CT abdomen w con CT CHEST AND ABDOMEN WITH INTRAVENOUS CONTRAST: CLINICAL HISTORY: Elevation Liver Levels, Nodular Sclerosis Hodgkin Lymphoma COMPARISON: 02/20/2025 chest, 12/15/2024 PET/CT and 04/21/2024 CT abdomen TECHNIQUE: Spiral images were obtained through the chest and abdomen following oral and intravenous administration of 100 mL of Omnipaque 300. Images of the chest were reviewed using both narrow and wide window settings. This CT exam was performed using one or more following dose reduction techniques: Automated exposure control, adjustment of the mA and/or kV according to patient size, or use of iterative reconstruction technique. There is a right-sided Jzfhky-r-Nxoz catheter. The heart is top normal in size. No pericardial effusion is seen. There is mild coronary artery plaque. No aortic aneurysm or dissection is noted. There are calcified left hilar granulomas. There are similar distal paratracheal lymph nodes with short axis dimension up to 1 cm. No new adenopathy is seen. There is continued elevation of the left hemidiaphragm with adjacent atelectasis and/or scarring. There is also minimal dependent atelectasis at the right base and a small stable pleural-parenchymal opacity adjacent to the dome of the right hemidiaphragm laterally. Patchy nodular airspace opacities at the right upper lobe on the prior show interval dissipation though there is developing groundglass density in the area at this time. No pleural effusion or pneumothorax is seen. There is a calcified left lower lobe granuloma. Endplate spurring is visualized at the spine. No calcified gallstones are identified. No intrahepatic masses are seen. The spleen is normal in size and attenuation. The pancreas and adrenal glands show no acute findings. There are symmetric bilateral renal nephrograms, without hydronephrosis. There are multiple bilateral renal cysts, larger on the right measuring up to 4.6 cm in size. There is atherosclerotic plaque at the aorta, iliac and some of the visceral arteries. No enlarged lymph nodes are visualized. No ascites is seen. There is a tiny umbilical hernia containing fat. There are some small bowel loops which are top normal in caliber and contain air. There is mild gaseous distention of a high riding sigmoid colon on the right. There is mild stool within the remainder of the imaged colon. Left-sided colonic diverticula are visualized. There is slight lumbar dextroscoliotic curvature as well as degenerative changes and associated stenosis, greatest at L4-5. CT/CT abdomen w con IMPRESSION: GRANULOMATOUS CHANGES. CHANGING RIGHT UPPER LOBE PARENCHYMAL DISEASE FROM NODULAR CONSOLIDATION TO GROUNDGLASS DENSITY, DESCRIBED. ADDITIONAL STABLE ATELECTASIS AND/OR SCARRING. NONSPECIFIC BOWEL GAS PATTERN THAT MAY BE ILEUS. A SIMILAR APPEARANCE WAS PRESENT AT THE TIME OF THE COMPARISON CT ABDOMEN STUDY. MILD DIVERTICULOSIS. MULTIPLE RENAL CYSTS. NO PATHOLOGIC ADENOPATHY OR OTHER ACUTE FINDINGS. Impression dictated by: Evelyn Guidry M.D. 04/23/2025 11:12 AM Dictation Location: [place] [address] Electronically authenticated by: [id number] Y Date: 04/23/2025 11:12 Dictated By: Evelyn Guidry M.D. Signed By: 04/23/25 1114 DD/ 1112 TD/TT: Industry Operations Investigator:CT CHEST W CON (Not yet reviewed by provider) Interpretation: Performing Lab: Notes/Report: Source Facility: [place] [address] CT Scan Report Signed Patient: HOANG TRAN MR#: [id number] : 1955 Acct:[id number] Age/Sex: 69 / M ADM Date: 04/23/25 Loc: CT Attending Dr: Joan Donnelly M.D. Ordering Physician: Joan Donnelly M.D. Date of Service: 04/23/25 Procedure(s): CT chest w con Accession Number(s): [id number] cc: AILIN GREEN [place] [address] Patient Name: HOANG TRAN MRN: [facility]:[id number] date: 1955 Sex: M Assigned Patient Location: CT Current Patient Location: LAB Accession/Order Number: [id number] Exam Date: 04/23/2025 10:20 Report Date: 04/23/2025 11:12 At the request of: JOAN DONNELLY MD Procedure: CT abdomen w con CT CHEST AND ABDOMEN WITH INTRAVENOUS CONTRAST: CLINICAL HISTORY: Elevation Liver Levels, Nodular Sclerosis Hodgkin Lymphoma COMPARISON: 02/20/2025 chest, 12/15/2024 PET/CT and 04/21/2024 CT abdomen TECHNIQUE: Spiral images were obtained through the chest and abdomen following oral and intravenous administration of 100 mL of Omnipaque 300. Images of the chest were reviewed using both narrow and wide window settings. This CT exam was performed using one or more following dose reduction techniques: Automated exposure control, adjustment of the mA and/or kV according to patient size, or use of iterative reconstruction technique. There is a right-sided Vppvcl-u-Vhui catheter. The heart is top normal in size. No pericardial effusion is seen. There is mild coronary artery plaque. No aortic aneurysm or dissection is noted. There are calcified left hilar granulomas. There are similar distal paratracheal lymph nodes with short axis dimension up to 1 cm. No new adenopathy is seen. There is continued elevation of the left hemidiaphragm with adjacent atelectasis and/or scarring. There is also minimal dependent atelectasis at the right base and a small stable pleural-parenchymal opacity adjacent to the dome of the right hemidiaphragm laterally. Patchy nodular airspace opacities at the right upper lobe on the prior show interval dissipation though there is developing groundglass density in the area at this time. No pleural effusion or pneumothorax is seen. There is a calcified left lower lobe granuloma. Endplate spurring is visualized at the spine. No calcified gallstones are identified. No intrahepatic masses are seen. The spleen is normal in size and attenuation. The pancreas and adrenal glands show no acute findings. There are symmetric bilateral renal nephrograms, without hydronephrosis. There are multiple bilateral renal cysts, larger on the right measuring up to 4.6 cm in size. There is atherosclerotic plaque at the aorta, iliac and some of the visceral arteries. No enlarged lymph nodes are visualized. No ascites is seen. There is a tiny umbilical hernia containing fat. There are some small bowel loops which are top normal in caliber and contain air. There is mild gaseous distention of a high riding sigmoid colon on the right. There is mild stool within the remainder of the imaged colon. Left-sided colonic diverticula are visualized. There is slight lumbar dextroscoliotic curvature as well as degenerative changes and associated stenosis, greatest at L4-5. CT/CT chest w con IMPRESSION: GRANULOMATOUS CHANGES. CHANGING RIGHT UPPER LOBE PARENCHYMAL DISEASE FROM NODULAR CONSOLIDATION TO GROUNDGLASS DENSITY, DESCRIBED. ADDITIONAL STABLE ATELECTASIS AND/OR SCARRING. NONSPECIFIC BOWEL GAS PATTERN THAT MAY BE ILEUS. A SIMILAR APPEARANCE WAS PRESENT AT THE TIME OF THE COMPARISON CT ABDOMEN STUDY. MILD DIVERTICULOSIS. MULTIPLE RENAL CYSTS. NO PATHOLOGIC ADENOPATHY OR OTHER ACUTE FINDINGS. Impression dictated by: Evelyn Guidry M.D. 04/23/2025 11:12 AM Dictation Location: [place] [address] Electronically authenticated by: [id number] Y Date: 04/23/2025 11:12 Dictated By: Evelyn Guidry M.D. Signed By: 04/23/25 1114 DD/ 1112 TD/TT: Industry Operations Investigator:ARCHIE T3 Reviewed date:05/26/2025 01:50:36 PM Interpretation: Performing Lab: Notes/Report: [facility] Archie T32.612.18-3.98 pg/mLPerforming Lab:see priyanka - [facility] LB INSULIN Reviewed date:05/27/2025 09:44:11 AM Interpretation: Performing Lab: Notes/Report: [facility] ,Insulin7.52.6-24.9 uIU/mL Performed at: - [facility] [address] [id number] Franchise Sales Manager: Neville Long PhD, Phone: [phone] Performing Lab:see note - [facility] LBLIPID PROFILE Reviewed date:05/26/2025 01:50:36 PM Interpretation: Performing Lab: Notes/Report: [facility] ,Wyndujhgrsemy578<=150 mg/vWSgzcgmkfnmn591<=200 mg/dLHDL Cskmuhzmaaq4662-37 mg/dL > or =60 mg/dl - LOW CARDIOVASCULAR RISK <40 mg/dl - HIGH CARDIOVASCULAR RISK LDL Cholesterol Eeuvbeaabp91.8 <100 mg/dl OPTIMAL 100-129 mg/dl NEAR OR ABOVE OPTIMAL 130-159 mg/dl BORDERLINE HIGH 160-189 mg/dl HIGH >190 mg/dl VERY HIGH VLDL QQLFBYXCJBW33.2Chol HDL Ratio3.4 3.3 - 4.4 LOW RISK 4.4 - 7.1 AVERAGE RISK 7.1 - 11.0 MODERATE RISK >11.0 HIGH RISK Performing [facility] LBPROF 14(COMP METB) Reviewed date:05/26/2025 01:50:36 PM Interpretation: Performing Lab: Notes/Report: [facility] ,Osaxul235541-725 mmol/LPotassium4.43.5-5.1 mmol/CYmabjjrt86703-202 mmol/LCarbon Zmexobe80.421.0-32.0 mmol/LAnion Gap8.3Wcuwhie97915-359 mg/dLBlood Urea Whllxome17.07.0-18.0 mg/dLCreatinine0.900.70-1.30 mg/dLEstimated GFR ( Samantha>60>=60 mL/min/1.73m 2Estimated GFR (Non- Aury>60>=60 mL/min/1.73m 2BUN Creatinine Ratio25.9Vvvgwsd0.18.5-10.1 mg/dLBilirubin Total0.80.2-1.0 mg/dL Aspartate Amino Hhqxhmaecyo0534-69 U/LAlanine Eakkueuefgexsiol7133-45 U/L Alkaline Cuzitttdoys6505-138 U/LTotal Protein7.56.4-8.2 g/dLAlbumin Level3.83.4- 5.0 g/dLGlobulin3.7Albumin Globulin Ratio1.0Performing Lab:see note - [facility] LBPSA SCREENING Reviewed date:05/26/2025 01:50:36 PM Interpretation: Performing Lab: Notes/Report: [facility] ,Prostate Specific Antigen Scrn1.26<=4.00 ng/mLPerforming Lab:see note - [facility] LBT4 Reviewed date:05/26/2025 01:50:36 PM Interpretation: Performing Lab: Notes/Report: [facility] ,T4 Thyroxine4.204.50-12.10 ug/dLPerforming Lab:see [facility] LBTSH Reviewed date:05/26/2025 01:50:36 PM Interpretation: Performing Lab: Notes/Report: [facility] ,Thyroid Stimulating Hormone2.6170.358-3.740 uIU/mLPerforming Lab:see [facility] LBURIC ACID SERUM Reviewed date:05/26/2025 01:50:36 PM Interpretation: Performing Lab: Notes/Report: [facility] ,Uric Acid4.83.5-7.2 mg/dLPerforming Lab:see [facility] LB GLYCOHEMOGLOBIN A1C Reviewed date:05/26/2025 01:50:36 PM Interpretation: Performing Lab: Notes/Report: [facility] ,Glycohemoglobin A1C5.44.5-6.2 % ADA RECOMMENDED LIMIT 4.0 - 6.0 ADA THERAPEUTIC TARGET < 7.0 ACTION SUGGESTED > 7.0 Estimated Average Fyuswli341Pbbmwuvvwd [facility] w con (Not yet reviewed by provider) Interpretation: Performing Lab: Notes/Report: Source Facility: [place] [address] CT Scan Report Signed Patient: HOANG TRAN MR#: [id number] : 1955 Acct:[id number] Age/Sex: 69 / M ADM Date: 04/22/25 Loc: LAB Attending Dr: Joan Donnelly M.D. Ordering Physician: Joan Donnelly M.D. Date of Service: 04/22/25 Procedure(s): CT soft tissue neck w con Accession Number(s): [id number] cc: AILIN GREEN [place] [address] Patient Name: HOANG TRAN MRN: [id number]:[id number] date: 1955 Sex: M Assigned Patient Location: CT Current Patient Location: CT Accession/Order Number: [id number] Exam Date: 04/22/2025 11:00 Report Date: 04/22/2025 12:09 At the request of: JOAN DONNELLY MD Procedure: CT soft tissue neck w con CT SOFT TISSUE NECK WITH CONTRAST COMPARISON: 02/20/2025 CLINICAL DATA: Follow-up Hodgkin's lymphoma. Spiral images were obtained through the neck following 100 mL of Omnipaque 300. This CT exam was performed using one or more following dose reduction techniques: Automated exposure control, adjustment of the mA and/or kV according to patient size, or use of iterative reconstruction technique. No thyroid nodularity is identified. The submandibular and parotid glands appear symmetric. The epiglottis and vocal cords are within normal limits. There is no enlargement of the adenoids or tonsils. No prevertebral soft tissue swelling is seen. There are a few small stable nonpathologic cervical lymph nodes. There are prepontine calcifications that were also seen previously and might be vascular. No developing lymphadenopathy is noted. There is reversal of the normal cervical lordosis and slight levoscoliotic curvature. Degenerative changes are again visualized, similar to the comparison. The imaged paranasal sinuses and left mastoid air cells are clear. There is prior mastoidectomy with opacification of the remaining mastoid air cells on the right. Limited imaging through the upper chest shows increasing infiltrative changes at the right upper lobe. CT/CT soft tissue neck w con IMPRESSION: NO PATHOLOGIC CERVICAL LYMPHADENOPATHY. PRIOR RIGHT MASTOIDECTOMY WITH OPACIFICATION OF REMAINING MASTOID AIR CELLS. WORSENING RIGHT UPPER LOBE PARENCHYMAL CHANGES. Impression dictated by: Evelyn Guidry M.D. 04/22/2025 12:09 PM Dictation Location: [place] [address] Electronically authenticated by: [id number] Y Date: 04/22/2025 12:09 Dictated By: Evelyn Guidry M.D. Signed By: 04/22/25 1211 DD/ 1209 TD/TT: Industry Operations Investigator:LIPID PROFILE Reviewed date:03/26/2025 09:46:41 AM Interpretation: Performing Lab: Notes/Report: [facility] ,Kqzbejolvngyd400<=150 mg/kYZnniszgukkc319<=200 mg/dLHDL Agycikoyhqr0766-74 mg/dL > or =60 mg/dl - LOW CARDIOVASCULAR RISK <40 mg/dl - HIGH CARDIOVASCULAR RISK LDL Cholesterol Xlynnixciq83.2 <100 mg/dl OPTIMAL 100-129 mg/dl NEAR OR ABOVE OPTIMAL 130-159 mg/dl BORDERLINE HIGH 160-189 mg/dl HIGH >190 mg/dl VERY HIGH VLDL NRJMFGVKVWI24.8Chol HDL Ratio2.6 3.3 - 4.4 LOW RISK 4.4 - 7.1 AVERAGE RISK 7.1 - 11.0 MODERATE RISK >11.0 HIGH RISK Performing Lab:see noteML - [facility] LBCT soft tissue neck w con (Not yet reviewed by provider) Interpretation: Performing Lab: Notes/Report: Source Facility: [place] [address] CT Scan Report Signed Patient: HOANG TRAN MR#: [id number] : 1955 Acct:[id number] Age/Sex: 69 / M ADM Date: 02/20/25 Loc: LAB Attending Dr: Joan Donnelly M.D. Ordering Physician: Joan Donnelly M.D. Date of Service: 02/20/25 Procedure(s): CT soft tissue neck wo/w con Accession Number(s): [id number] cc: AILIN GREEN [place] [address] Patient Name: HOANG TRAN MRN: [id number] date: 1955 Sex: M Assigned Patient Location: LAB Current Patient Location: CARD Accession/Order Number: [id number] Exam Date: 02/20/2025 16:33 Report Date: 02/20/2025 [...] Landry M.D. 02/20/2025 4:43 PM Dictation Location: [place] [address] Electronically authenticated by: [id number] Y Date: 02/20/2025 16:43 Dictated By: Leno Ladnry M.D. Signed By: 02/20/251645 DD/ 42 TD/TT: Industry Operations Investigator:CBC AUTO DIFF (Not yet reviewed by provider) Interpretation: Performing Lab: Notes/Report: [facility] ,White Blood Count7.24.0-11.0 10 3/uLRed Blood Count5.094.70-6.10 10 6/uL Fbvvaaardz85.514.0-18.0 g/fQJdtrudsbsp83.742.0-54.0 %Mean Corpuscular Slrvyi79.7 80.0-94.0 fLMean Corpuscular Yjctvxgyxw45.525.9-34.0 pgMean Corpuscular HGB Conc 33.229.9-35.2 g/dLRed Cell Distribution Width13.211.0-15.0 %Platelet Drpqp816 150-450 10 3/uLMean Platelet Volume9.29.5-13.5 fLNeutrophils Percent Auto69.9 43.0-75.0 %Lymphocytes Percent Auto13.620.5-60.0 %Monocytes Percent Auto9.71.7- 12.0 %Eosinophils Percent Auto5.80.9-7.0 %Basophils Percent Auto0.60.2-2.0 % Immature Granulocytes Pct Auto0.40.0-0.5 %Neutrophils Absolute Auto5.11.4-6.5 10 3/uLLymphocytes Absolute Auto1.01.2-3.8 10 3/uLMonocytes Absolute Auto0.70.3- 0.8 10 3/uLEosinophils Absolute Auto0.40.0-0.7 10 3/uLBasophils Absolute Auto0.0 0.0-0.1 10 3/uLImmature Granulocytes Abs Auto0.030.00-0.03 10 3/uLPerforming Lab:see noteML - [facility] LBPROF 14(COMP METB) (Not yet reviewed by provider) Interpretation: Performing Lab: Notes/Report: [facility] ,Fgpzwk129716-905 mmol/LPotassium4.03.5-5.1 mmol/HJvjhkoom60602-108 mmol/LCarbon Daqhqcc16.321.0-32.0 mmol/LAnion Gap11.8Tldjehm61423-697 mg/dLBlood Urea Uowmcnbm66.07.0-18.0 mg/dLCreatinine0.850.70-1.30 mg/dLEstimated GFR ( Samantha>60>=60 mL/min/1.73m 2Estimated GFR (Non- Aury>60>=60 mL/min/1.73m 2BUN Creatinine Ratio25.0Yybbxow5.38.5-10.1 mg/dLBilirubin Total0.70.2-1.0 mg/dL Aspartate Amino Rwrasqghohv0793-90 U/LAlanine Vzkqkwtkvnqqrafp5154-03 U/L Alkaline Boxuhnhzcyj9644-762 U/LTotal Protein6.86.4-8.2 g/dLAlbumin Level3.43.4- 5.0 g/dLGlobulin3.4Albumin Globulin Ratio1.0Performing Lab:see noteML - [facility] LBLDH (Not yet reviewed by provider) Interpretation: Performing Lab: Notes/Report: [facility] ,Lactate Kucsgqxzmnqbi08134-744 U/LPerforming Lab:see noteML - [facility] LBPROF 14(COMP METB) (Not yet reviewed by provider) Interpretation: Performing Lab: Notes/Report: [facility] ,Blnyup217875-856 mmol/LPotassium4.03.5-5.1 mmol/SMnsmsypc06685-699 mmol/LCarbon Wzbecis13.921.0-32.0 mmol/LAnion Gap10.0Glsginr8205-672 mg/dLBlood Urea Pkfmlqik42.07.0-18.0 mg/dLCreatinine0.820.70-1.30 mg/dLEstimated GFR ( Samantha>60>=60 mL/min/1.73m 2Estimated GFR (Non- Aury>60>=60 mL/min/1.73m 2BUN Creatinine Ratio22.8Ngpioew3.08.5-10.1 mg/dLBilirubin Total0.40.2-1.0 mg/dL Aspartate Amino Cmpgllidolx5642-43 U/LAlanine Brzlubktrccyzgie9113-36 U/L Alkaline Qurxewjvyxs6169-942 U/LTotal Protein6.46.4-8.2 g/dLAlbumin Level3.23.4- 5.0 g/dLGlobulin3.2Albumin Globulin Ratio1.0Performing Lab:see noteML - [facility] LBLDH (Not yet reviewed by provider) Interpretation: Performing Lab: Notes/Report: [facility] ,Lactate Rwvloywgidbze85439-101 U/LPerforming Lab:see noteML - [facility] LBCBC AUTO DIFF (Not yet reviewed by provider) Interpretation: Performing Lab: Notes/Report: [facility] ,White Blood Count5.64.0-11.0 10 3/uLRed Blood Count4.794.70-6.10 10 6/uL Bxzfmfdgyz96.714.0-18.0 g/vOVbnbdkhkzu37.942.0-54.0 %Mean Corpuscular Jskijl77.6 80.0-94.0 fLMean Corpuscular Brfniceqdl27.725.9-34.0 pgMean Corpuscular HGB Conc 33.529.9-35.2 g/dLRed Cell Distribution Width13.211.0-15.0 %Platelet Danto789 150-450 10 3/uLMean Platelet Volume9.89.5-13.5 fLNeutrophils Percent Auto67.1 43.0-75.0 %Lymphocytes Percent Auto14.020.5-60.0 %Monocytes Percent Auto10.81.7- 12.0 %Eosinophils Percent Auto7.20.9-7.0 %Basophils Percent Auto0.50.2-2.0 % Immature Granulocytes Pct Auto0.40.0-0.5 %Neutrophils Absolute Auto3.71.4-6.5 10 3/uLLymphocytes Absolute Auto0.81.2-3.8 10 3/uLMonocytes Absolute Auto0.60.3- 0.8 10 3/uLEosinophils Absolute Auto0.40.0-0.7 10 3/uLBasophils Absolute Auto0.0 0.0-0.1 10 3/uLImmature Granulocytes Abs Auto0.020.00-0.03 10 3/uLPerforming Lab:see noteML - [facility] LBFERRITIN (Not yet reviewed by provider) Interpretation: Performing Lab: Notes/Report: [facility] ,Nuyxyywe920.026.0-388.0 ng/mLPerforming Lab:see noteML - [facility] LBManual Differential (Not yet reviewed by provider) Interpretation: Performing Lab: Notes/Report: [facility] ,Segmented Neutrophils % Jskexh44.043.0-75.0Lymphocytes Percent Qoiwaf30.020.5- 60.0 %Monocytes Percent Eogbvi01.01.7-12.0 %Eosinophils Percent Cotush44.00.9- 7.0 %Basophils Percent Manual2.00.2-2.0 %Segmented Neut Absolute Manual0.921.4- 6.5 10 3/uLLymphocytes Absolute Manual0.551.20-3.80 10 3/uLMonocytes Absolute Manual0.500.30-0.80 10 3/uLEosinophils Absolute Manual0.270.00-0.70 10 3/uL Basophils Abs Manual0.040.00-0.10 10 3/uLPerforming Lab:see noteML - [facility] LBCBC AUTO DIFF (Not yet reviewed by provider) Interpretation: Performing Lab: Notes/Report: [facility] ,White Blood Count2.34.0-11.0 10 3/uLRed Blood Count4.324.70-6.10 10 6/uL Kgiighgvur83.914.0-18.0 g/yFPgxcghgkpu16.842.0-54.0 %Mean Corpuscular Dvgzcb72.8 80.0-94.0 fLMean Corpuscular Ljunhjolix42.925.9-34.0 pgMean Corpuscular HGB Conc 33.229.9-35.2 g/dLRed Cell Distribution Width15.811.0-15.0 %Platelet Tidbq715 150-450 10 3/uLMean Platelet Zgkelo56.29.5-13.5 fLPerforming Lab:see noteML - [facility] LBPROF 14(COMP METB) (Not yet reviewed by provider) Interpretation: Performing Lab: Notes/Report: [facility] ,Ivtzik698156-118 mmol/LPotassium4.13.5-5.1 mmol/AZslgqxcm43570-753 mmol/LCarbon Iwpwniv00.121.0-32.0 mmol/LAnion Gap6.1Wwkqvtv57690-923 mg/dLBlood Urea Bowmiwkg03.07.0-18.0 mg/dLCreatinine0.820.70-1.30 mg/dLEstimated GFR ( Samantha>60>=60 mL/min/1.73m 2Estimated GFR (Non- Aury>60>=60 mL/min/1.73m 2BUN Creatinine Ratio25.4Sfqlusc7.28.5-10.1 mg/dLBilirubin Total0.30.2-1.0 mg/dL Aspartate Amino Osacdhwcvbm7935-87 U/LAlanine Iktqpjhtoxrxetxp5471-82 U/L Alkaline Dohylvgissm00343-296 U/LTotal Protein6.46.4-8.2 g/dLAlbumin Level3.1 3.4-5.0 g/dLGlobulin3.3Albumin Globulin Ratio0.9Performing Lab:see noteML - [facility] LBLDH (Not yet reviewed by provider) Interpretation: Performing Lab: Notes/Report: [facility] ,Lactate Ycraqfxmnjooh05503-644 U/LPerforming Lab:see noteML - [facility] LBManual Differential (Not yet reviewed by provider) Interpretation: Performing Lab: Notes/Report: [facility] ,Segmented Neutrophils % Lyeuge33.043.0-75.0Band Neutrophils %5.00-5 % Lymphocytes Percent [place]10.020.5-60.0 %Monocytes Percent Zfotpg43.01.7-12.0 % Eosinophils Percent Manual5.00.9-7.0 %Basophils Percent Manual3.00.2-2.0 % Segmented Neut Absolute Dwtlts29.221.4-6.5 10 3/uLBand Neutrophils Absolute0.9 0.0-0.3 10 3/uLLymphocytes Absolute Manual2.351.20-3.80 10 3/uLMonocytes Absolute Manual2.170.30-0.80 10 3/uLEosinophils Absolute Manual0.900.00-0.70 10 3/uLBasophils Abs Manual0.540.00-0.10 10 3/uLPoikilocytosis1+Anisocytosis1+Tear Drop Cells1+Performing Lab:see noteML - [facility] LBPROF 14(COMP METB) (Not yet reviewed by provider) Interpretation: Performing Lab: Notes/Report: [facility] ,Fukujy728865-146 mmol/LPotassium4.13.5-5.1 mmol/EHdsjqojd97462-854 mmol/LCarbon Eziopdl40.021.0-32.0 mmol/LAnion Gap8.7Qppoqvu45640-331 mg/dLBlood Urea Vcmtnjyf48.07.0-18.0 mg/dLCreatinine0.920.70-1.30 mg/dLEstimated GFR ( Samantha>60>=60 mL/min/1.73m 2Estimated GFR (Non- Aury>60>=60 mL/min/1.73m 2BUN Creatinine Ratio20.4Bcptzpi6.08.5-10.1 mg/dLBilirubin Total0.30.2-1.0 mg/dL Aspartate Amino Pydgckiqydz0236-19 U/LAlanine Lsuuomcqxyymhgzh6261-77 U/L Alkaline Feqbmuzfjhk20086-828 U/LTotal Protein6.36.4-8.2 g/dLAlbumin Level3.2 3.4-5.0 g/dLGlobulin3.1Albumin Globulin Ratio1.0Performing Lab:see note - [facility] LBLDH (Not yet reviewed by provider) Interpretation: Performing Lab: Notes/Report: [facility] ,Lactate Fuzauyidgybsp00019-340 U/LPerforming Lab:see note - [facility] LBCBC AUTO DIFF (Not yet reviewed by provider) Interpretation: Performing Lab: Notes/Report: [facility] ,White Blood Count18.14.0-11.0 10 3/uLRed Blood Count4.724.70-6.10 10 6/uL Kbdwzdhave98.914.0-18.0 g/rGYqrlzkyhsp81.842.0-54.0 %Mean Corpuscular Jpzuam90.7 80.0-94.0 fLMean Corpuscular Ksfjwlbljf63.425.9-34.0 pgMean Corpuscular HGB Conc 32.529.9-35.2 g/dLRed Cell Distribution Width19.311.0-15.0 %Platelet Knhac272 150-450 10 3/uLMean Platelet Volume9.59.5-13.5 fLPerforming Lab:see [facility] LBCA echo doppler complete Reviewed date:08/27/2024 12:32:14 PM Interpretation: Performing Lab: Notes/Report: Source Facility: [place] [address] Cardiology Report Signed Patient: HOANG TRAN MR#: [id number] : 1955 Acct:[id number] Age/Sex: 69 / M ADM Date: 08/25/24 Loc: CARD Attending Dr: FABIOLA BENDER Ordering Physician: FABIOLA BENDER Date of Service: 08/25/24 Procedure(s): CA echo doppler complete Accession Number(s): [id number] cc: AFBIOLA BENDRE; AILIN GREEN Patient Name: HOANG TRAN MR#: [id number] : 1955 Exam Date: 08/25/2024 Ordering Doctor: [...] Area (VTI): 1.63 cm2, 1.79 cm2 Deceleration [place]: 2.62 m/s2 Pressure Half-Time: 478.16 ms Peak [...] Pressure: 48.61 ml, 48.61 ml Dictated by: Jreod Manuel M.D. on 08/26/2024 at 19:01 Approved by: Jerod Manuel M.D. on 08/26/2024 at 19:06 Dictated By: JEROD MANUEL Signed By: 08/26/241906 DD/ 05 TD/TT: Industry Operations Investigator:Manual Differential (Not yet reviewed by provider) Interpretation: Performing Lab: Notes/Report: [facility] ,Segmented Neutrophils % Mpbhur68.043.0-75.0Band Neutrophils %6.00-5 % Lymphocytes Percent Vjsyfh01.020.5-60.0 %Monocytes Percent Qjnpjg29.01.7-12.0 % Eosinophils Percent Manual1.00.9-7.0 %Basophils Percent Manual1.00.2-2.0 % Myelocytes % Manual1.0Segmented Neut Absolute Manual8.501.4-6.5 10 3/uLBand Neutrophils Absolute0.80.0-0.3 10 3/uLLymphocytes Absolute Manual1.621.20-3.80 10 3/uLMonocytes Absolute Manual2.160.30-0.80 10 3/uLEosinophils Absolute Manual 0.130.00-0.70 10 3/uLBasophils Abs Manual0.130.00-0.10 10 3/uLMyelocytes Absolute Manual0.94Uvwhwdewrtigfh6+Anisocytosis1+Tear Drop Cells1+Performing Lab:see noteML - [facility] LBErythrocyte Sedimentation Rate Reviewed date:08/18/2024 08:27:53 AM Interpretation: Performing Lab: Notes/Report: [facility] ,Erythrocyte Sedimentation Rate41<=20 mm/hrPerforming Lab:see note - [facility] LBIRON AND TIBC Reviewed date:08/18/2024 08:27:53 AM Interpretation: Performing Lab: Notes/Report: [facility] ,Wyjr623.065.0-175.0 ug/dLTotal Iron Binding Supolgsw253.0250.0-450.0 ug/dL Percent Iron Krqbmhipqj02.6Performing Lab:see noteML - [facility] LB CRP Reviewed date:08/18/2024 08:27:53 AM Interpretation: Performing Lab: Notes/Report: [facility] ,C Reactive Protein0.60<=0.50 mg/dLPerforming Lab:see note - [facility] LBImmunofixation, Serum Reviewed date:08/18/2024 08:27:53 AM Interpretation: Performing Lab: Notes/Report: [facility] ,Immunofixation Result, SerumComment:. Presence of monoclonal protein is unclear at this time. Suggest repeat in 3 to 6 months if clinically indicated. Immunoglobulin G, Qn, Hiaeq757562-2970 mg/dLImmunoglobulin A, Qn, Bjdta65251-143 mg/dLImmunoglobulin M, Qn, Kleyx5106-961 mg/dL Result confirmed on concentration. Performed at: [address] [id number] Franchise Sales Manager: Neville Long PhD, Phone: [phone] Performing Lab:see [facility] Reagin, Quant Reviewed date:08/18/2024 08:27:53 AM Interpretation: Performing Lab: Notes/Report: [facility] ,Rapid Plasma Reagin, QuantNon ReactiveNonRea<1:1 titer Please Note: This test does not meet current guidelines for screening and diagnosis of syphilis. This test is intended for following treatment response in patients being treated for syphilis infection. To screen for syphilis infection, a reflex cascade that includes both RPR and a treponema-specific assay should be utilized, such as Treponema pallidum (Syphilis) Screening [place] (774530) or Rapid Plasma Reagin (RPR) Test With Reflex to Quantitative RPR and Confirmatory Treponema pallidum Antibodies (195018). Performed at: [address] [id number] [employer]anchise Sales Manager: Neville Long PhD, Phone: [phone] Performing Lab:see [facility] LBGLYCOHEMOGLOBIN A1C Reviewed date:08/12/2024 04:06:55 PM Interpretation: Performing Lab: Notes/Report: [facility] ,Glycohemoglobin A1C6.04.5-6.2 % ADA RECOMMENDED LIMIT 4.0 - 6.0 ADA THERAPEUTIC TARGET < 7.0 ACTION SUGGESTED > 7.0 Estimated Average Oztzpkm738Ntpyvukxzo Lab:see note - [facility] LB COPPER, SERUM or PLASMA Reviewed date:08/18/2024 08:27:53 AM Interpretation: Performing Lab: Notes/Report: [facility] ,Copper Latsv15622-803 ug/dL This test was developed and its performance characteristics determined by [facility]. It has not been cleared or approved by the Food and Drug Administration. Detection Limit = 5 Performed at: [address] [id number] [employer] Sales Manager: Ash Wilcox MD, Phone: [phone] Performing Lab:see noteLC - [facility] LBManual Differential Reviewed date:08/18/2024 08:27:53 AM Interpretation: Performing Lab: Notes/Report: [facility] ,Segmented Neutrophils % Espgbc88.043.0-75.0Band Neutrophils %2.00-5 % Lymphocytes Percent Wfxsex75.020.5-60.0 %Monocytes Percent Efclll36.01.7-12.0 % Eosinophils Percent Manual2.00.9-7.0 %Basophils Percent Manual4.00.2-2.0 % Metamyelocytes %1.0Myelocytes % Manual3.0Segmented Neut Absolute Tktwgp08.141.4- 6.5 10 3/uLBand Neutrophils Absolute0.30.0-0.3 10 3/uLLymphocytes Absolute Manual3.041.20-3.80 10 3/uLMonocytes Absolute Manual1.690.30-0.80 10 3/uL Eosinophils Absolute Manual0.330.00-0.70 10 3/uLBasophils Abs Manual0.670.00- 0.10 10 3/uLMetamyelocytes Absolute Manual0.16Myelocytes Absolute Manual0.50 Nucleated Red Blood Faoym3Jscandjtbeyc2+Performing Lab:see noteML - [facility] LBPROF 14(COMP METB) Reviewed date:08/18/2024 08:27:53 AM Interpretation: Performing Lab: Notes/Report: [facility] ,[id number] mmol/LPotassium4.03.5-5.1 mmol/NKopcbleo41422-649 mmol/LCarbon Znmzjiq53.421.0-32.0 mmol/LAnion Gap8.4Blapshg59569-649 mg/dLBlood Urea Bjdkwyzz05.07.0-18.0 mg/dLCreatinine0.880.70-1.30 mg/dLEstimated GFR ( Samantha>60>=60 mL/min/1.73m 2Estimated GFR (Non- Aury>60>=60 mL/min/1.73m 2BUN Creatinine Ratio17.1Qiakeuh3.88.5-10.1 mg/dLBilirubin Total0.20.2-1.0 mg/dL Aspartate Amino Qjbtonpdclq8272-11 U/LAlanine Hlflgwzsmahtqdsr2912-06 U/L Alkaline Xcssdzyevat60327-724 U/LTotal Protein6.56.4-8.2 g/dLAlbumin Level3.1 3.4-5.0 g/dLGlobulin3.4Albumin Globulin Ratio0.9Performing Lab:see noteML - [facility] LBLDH Reviewed date:08/18/2024 08:27:53 AM Interpretation: Performing Lab: Notes/Report: [facility] ,Lactate Pkhotsqevxqio17212-304 U/LPerforming Lab:see noteML - [facility] LBCBC AUTO DIFF Reviewed date:08/18/2024 08:27:53 AM Interpretation: Performing Lab: Notes/Report: [facility] ,White Blood Count16.94.0-11.0 10 3/uLRed Blood Count4.764.70-6.10 10 6/uL Nqozygqlxm56.014.0-18.0 g/nBXvphogicnh71.942.0-54.0 %Mean Corpuscular Hoyjsa57.0 80.0-94.0 fLMean Corpuscular Lmbuqhgylo73.325.9-34.0 pgMean Corpuscular HGB Conc 31.029.9-35.2 g/dLRed Cell Distribution Width22.311.0-15.0 %Platelet Ibihi629 150-450 10 3/uLMean Platelet Xrrmbl59.09.5-13.5 fLPerforming Lab:see noteML - [facility] LBPROF 14(COMP METB) Reviewed date:08/18/2024 08:27:53 AM Interpretation: Performing Lab: Notes/Report: [facility] ,Mtakjg803560-177 mmol/LPotassium4.23.5-5.1 mmol/KJmcybyji65371-519 mmol/LCarbon Lbufvjz66.521.0-32.0 mmol/LAnion Gap9.2Ltwfocm17727-379 mg/dLBlood Urea Cebercbu99.07.0-18.0 mg/dLCreatinine0.950.70-1.30 mg/dLEstimated GFR ( Samantha>60>=60 mL/min/1.73m 2Estimated GFR (Non- Aury>60>=60 mL/min/1.73m 2BUN Creatinine Ratio20.4Dibaxkk5.98.5-10.1 mg/dLBilirubin Total0.30.2-1.0 mg/dL Aspartate Amino Jgaawoxcids8972-71 U/LAlanine Orpcdaqyvkulbuid1342-65 U/L Alkaline Rubmgrtrybr3905-543 U/LTotal Protein6.26.4-8.2 g/dLAlbumin Level2.83.4- 5.0 g/dLGlobulin3.4Albumin Globulin Ratio0.8Performing Lab:see noteML - [facility] LBMAGNESIUM Reviewed date:08/18/2024 08:27:53 AM Interpretation: Performing Lab: Notes/Report: [facility] ,Magnesium1.81.8-2.4 mg/dLPerforming Lab:see note - [facility] LB LDH Reviewed date:08/18/2024 08:27:53 AM Interpretation: Performing Lab: Notes/Report: [facility] ,Lactate Mfprkybwfzetm05702-818 U/LPerforming Lab:see noteML - [facility] LBCBC AUTO DIFF Reviewed date:08/18/2024 08:27:53 AM Interpretation: Performing Lab: Notes/Report: [facility] ,White Blood Count12.14.0-11.0 10 3/uLRed Blood Count4.554.70-6.10 10 6/uL Gmjzahviht19.214.0-18.0 g/xBClkeffmryv36.042.0-54.0 %Mean Corpuscular Ydkksy58.7 80.0-94.0 fLMean Corpuscular Mgwrqrcvoy29.825.9-34.0 pgMean Corpuscular HGB Conc 31.329.9-35.2 g/dLRed Cell Distribution Width23.611.0-15.0 %Platelet Dlvlj068 150-450 10 3/uLMean Platelet Volume9.89.5-13.5 fLPerforming Lab:see note - [facility] LBCBC AUTO DIFF Reviewed date:05/26/2025 01:50:36 PM Interpretation: Performing Lab: Notes/Report: [facility] ,White Blood Count7.14.0-11.0 10 3/uLRed Blood Count5.364.70-6.10 10 6/uL Zkaenxtrqk65.514.0-18.0 g/zZSvtkinjokj32.442.0-54.0 %Mean Corpuscular Nsqjtl00.2 80.0-94.0 fLMean Corpuscular Cphfduvigr30.825.9-34.0 pgMean Corpuscular HGB Conc 33.429.9-35.2 g/dLRed Cell Distribution Width13.211.0-15.0 %Platelet Eckid053 150-450 10 3/uLMean Platelet Ceineg27.19.5-13.5 fLNeutrophils Percent Auto69.0 43.0-75.0 %Lymphocytes Percent Auto14.320.5-60.0 %Monocytes Percent Auto9.01.7- 12.0 %Eosinophils Percent Auto6.50.9-7.0 %Basophils Percent Auto0.80.2-2.0 % Immature Granulocytes Pct Auto0.40.0-0.5 %Neutrophils Absolute Auto4.91.4-6.5 10 3/uLLymphocytes Absolute Auto1.01.2-3.8 10 3/uLMonocytes Absolute Auto0.60.3- 0.8 10 3/uLEosinophils Absolute Auto0.50.0-0.7 10 3/uLBasophils Absolute Auto0.1 0.0-0.1 10 3/uLImmature Granulocytes Abs Auto0.030.00-0.03 10 3/uLPerforming Lab:see noteML - [facility] Reason For Referral No Information Medications Medication SIG (Take, Route, Frequency, Duration) Notes Start Date End Date Status Atorvastatin Calcium 40 MG TAKE 1 TABLET BY MOUTH EVERY NIGHT AT BEDTIME; Duration: 90 ActiveOndansetron HCl 4 MGTAKE 1 TABLET BY MOUTH ONCE DAILY NEEDED; Duration: 60ActiveMetoprolol Tartrate 50 MG1 tablet with food Orally Twice a day; Duration: 90 days4ActiveDexcom G7 Sensor -CHANGE 1 SENSOR EVERY 10 DAYS; Duration: 90ActiveGlucagon Emergency 1 MGas directed Injection as needed 4ActiveGabapentin 100 MG1 capsule Orally twice a day; Duration: 30 days 5ActiveEliquis 5 MGTAKE 1 TABLET BY MOUTH TWICE DAILY DIRECTED; Duration: 90ActivedilTIAZem HCl ER 240 MG1 tablet Orally Once a day; Duration: 90 days07/24/2024ctiveLantus SoloStar 100 UNIT/MLInject 14 units Subcutaneous at bedtime DX:E11.9; Duration: 90 daysActiveJanuvia 100 MGTAKE 1 TABLET BY MOUTH ONCE DAILY; Duration: 90 daysActiveLiothyronine Sodium 5 MCG2 tablets on an empty stomach Orally Once a day; Duration: 30 days05/30/2024ctiveDexcom G7 Regional Administrative Assistant -Use transmitter to monitor glucose daily DX E11.9; Duration: 365 days 5ActiveCarafate 1 GM1 tablet on an empty stomach Orally three times dailyActivePantoprazole Sodium 40 MG1 tablet 1/2 to 1 hour before morning meal Orally Once a dayActivePen Hiko 32G X 5 MMUse pen needles on insulin once daily DX E11.9; Duration: 90 days05/30/2024ctivePreserVision AREDSOTCActive Social History Tobacco Use: Social History Observation Description Date Details (start date - stop date) Never Smoker NA - NA Tobacco Use/Smoking Question Answer Notes Patient is a nonsmoker Alcohol Screen (Audit-C) Question Answer Notes Did you have a drink containing alcohol in the p ast year? No Yjgvhx9DwpisctupbbrysWygjhgkjTZCNN-J (Standard) Question Answer Notes Did you have a drink containing alcohol in the p ast year? No Ospvvp5HszqfidzaskyndNjzjrnvn Problems Problem Type SNOMED Code ICD Code Onset Dates Problem Status W/U Status Risk Notes Problem Hodgkin's disease (d isorder) (840050816) Hodgkin lymphoma, unspecified, unspecified site (C81.90) ActiveconfirmedProblemClaustrophobia (21553032)Claustrophobia (F40.240)Active confirmedProblemHeart failure (80524711)Heart failure, unspecified (I50.9)Active confirmedProblemHypothyroidism (93671660)Hypothyroidism (E03.9)Activeconfirmed ProblemAtrial fibrillation (disorder) (31787250)Afib (I48.91)Activeconfirmed ProblemHypertension (07586472)HTN (hypertension) (I10)ActiveconfirmedProblem Anemia (910517104)Anemia (D64.9)ActiveconfirmedProblemPeripheral neuropathy (750348598)Peripheral neuropathy (G62.9)ActiveconfirmedProblemAtrial fibrillation (54716743)Atrial fibrillation (I48.91)ActiveconfirmedProblemHearing loss (76531821)Hearing loss (H91.90)ActiveconfirmedProblemAcquired hypothyroidism (086017131)Acquired hypothyroidism (E03.9)ActiveconfirmedProblem Iron deficiency anemia (42786836)Iron deficiency anemia (D50.9)Activeconfirmed ProblemGlucosuria (79783619)Glucosuria (R81)ActiveconfirmedProblem Supraventricular arrhythmia (48401255)Supraventricular arrhythmia (I49.9)Active confirmedProblemUnsteady gait (54525178)Unsteady gait (R26.81)Activeconfirmed ProblemAcoustic neuroma (503049013)Acoustic neuroma (D33.3)Activeconfirmed ProblemHodgkin lymphoma (0725561419)Hodgkin lymphoma (C81.90)Activeconfirmed ProblemHearing loss (98060487)Deafness in right ear (H91.91)Activeconfirmed ProblemAdult failure to thrive syndrome (781618698)Failure to thrive in adult (R62.7)ActiveconfirmedProblemLower urinary tract symptoms due to benign prostatic hypertrophy (69701388497303)BPH with obstruction/lower urinary tract symptoms (N40.1)ActiveconfirmedProblemSevere protein calorie malnutrition (499740336)Severe protein-calorie malnutrition (E43)ActiveconfirmedProblem Tunneled central venous catheter in situ (048086451)Port-a-cath in place (Z95.828)ActiveconfirmedProblemHodgkins lymphoma (C81.90)ActiveconfirmedProblem Lower urinary tract obstructive syndrome (64708258)Lower urinary obstructive symptom (N13.9)ActiveconfirmedProblemLung function restrictive (finding) (717787379)Restrictive pattern present on pulmonary function testing (R94.2) ActiveconfirmedProblemDiabetes mellitus (85495381)Diabetes mellitus (E11.9) ActiveconfirmedProblemHyperglycemia due to diabetes mellitus (354295286) Hyperglycemia due to diabetes mellitus (E11.65)Activeconfirmed Vital Signs Blood pressure diastolic 80 mm Hg 05/26/2025 Pibput74 in05/26/2025lood pressure czuebnyw122 mm Hg05/26/20253716Eyclww921 lbs 05/26/2025BMI26.32 kg/m205/26/2025 Encounters Encounter Location Date Provider Diagnosis [facility] [address] [place] [address] 08/13/2024 Ailin Green Diabetes mellitus E11.9 ; Hearing loss H91.90 and Unsteady gait R26.81 [facility] [address] [place] [address] 05/26/2025 Ailin Green Atrial fibrillation I48.91 ; Heart failure, unspecified I50.9 ; Peripheral neuropathy G62.9 and Diabetes mellitus E11.9 [facility] [address] [facility] [place] [address] 07/22/2024 Joan [facility] [address] [facility] [place] [address]/ Joan [facility] [address] [facility] [place] [address]/poorva [facility] [address] [facility] [place] [address]/poorva [facility] [address] [facility] [place] [address]/poorva [facility] [address] [facility] [place] [address]/poorva [facility] [address] [facility] [place] [address] 5Apoorva [facility] [address] [facility] [place] [address]/POORVA [facility] [address] [facility] [place] [place] [address]/poorva [facility] [address] [facility] [place] [place] [address]/poorva [facility] [address] [facility] [place] [address]/ Joan [facility] [address] [facility] [place] [address]/poorva [facility] [address] [facility] [place] [address]/poiava [facility] [address] [facility] [place] [address]/[facility] [address] [facility] [place] [address]/poorva [facility] [facility] [place] [address] 07/24/2024[facility] [facility] [address] [facility] [place] [address]/[facility] [place] [address]/09/2024[facility] [place] [address]/02/2025[facility] [place] [address] 08/13/2024[facility] [place] [address]/03/2025[facility] [address] [place] [address]/[facility] [place] [address]/ Ailin Ventura (hypertension) Z67XpjexrtAd[facility] [place] [address]/Pamela CramerHyperglycemia due to diabetes mellitus E11.65[facility] [place] [address]/[facility] [address] [place] [address]/[facility]ramer[facility] [place] [address]/04/2025 Ailin Green Assessments Encounter Date Diagnosis (ICD Code) Assessment Notes Treatment Notes Treatment Clinical Notes Section Notes 05/26/2025 Atrial fibrillation (ICD-10 - I4 8.91) follows with qucwjeninb10/21/2025Heart failure, unspecified (ICD-10 - I50.9) continue fu with mqybymxyjg12/08/2025Diabetes mellitus (ICD-10 - E11.9) BS at goal now taking Januvia and Lantus 14 units 05/19/2025HTN (hypertension) (ICD-10 - I10)05/26/2025Hyperglycemia due to diabetes mellitus (ICD-10 - E11.65)08/13/2024Hearing loss (ICD-10 - H91.90) states getting worse not wearing hearing aids has fu with [facility] [place] upcoming 05/26/2025Peripheral neuropathy (ICD-10 - G62.9) trial of gabapentin CSA signed OARRS reviewed fu in 1-2 months 05/26/2025Diabetes mellitus (ICD-10 - E11.9) has lost some weight continue monitor BS reduce insulin dose from 14 to 8 units, report BS 2 weeks 08/13/2024Unsteady gait (ICD-10 - R26.81)willing to start PT now, Dr Arenas ordered pt hnises6605/26/2025Otherwellness labs ordered, to get done Plan Of Treatment Pending Test Test Name Order Date CMP (COMPLETE METABOLIC PANEL) 4 CMP (COMPLETE METABOLIC PANEL) 4 CMP (COMPLETE METABOLIC PANEL) UA (URINALYSIS, COMPLETE) 08/30/2023 HEMOGLOBIN A1C (GLYCO) 08/30/2023 HEMOGLOBIN A1C (GLYCO) 03/19/2024 HEMOGLOBIN A1C (GLYCO) 04/16/2024 HEMOGLOBIN A1C (GLYCO) 05/19/2025 INSULIN, TOTAL 05/19/2025 INSULIN, TOTAL 03/19/2024 INSULIN, TOTAL 08/30/2023 LIPID PANEL (CHOL/TRIG/HDL/LDL) 08/30/19 LIPID PANEL (CHOL/TRIG/HDL/LDL) 03/19/20 LIPID PANEL (CHOL/TRIG/HDL/LDL) 05/19/20 CBC WITH DIFF (EXP 06/2025) 04/16/2024 CBC WITH DIFF (06/2025) 03/19/2024 CBC WITH DIFF (06/2025) 08/30/2023 PSA, PROSTATE-SPECIFIC ANTIGEN URIC ACID 08/30/2023 URIC ACID 03/19/2024 URIC ACID 05/19/2025 CT Abdomen and Pelvis w/contrast * 04/18 CT Chest w/contrast * 03/25/2024 MRI Brain w/o contrast 04/18/2024 Cerumen Removal - performed 05/01/2024 URINE CULTURE 08/30/2023 PSA, TOTAL 03/19/2024 STOOL OCCULT BLOOD 03/19/2024 STOOL OCCULT BLOOD 08/30/2023 BUN 04/22/2025 CBC AUTO DIFF 01/26/2025 CBC AUTO DIFF 02/17/2025 CBC AUTO DIFF 02/20/2025 CBC AUTO DIFF 08/19/2024 CBC AUTO DIFF 09/02/2024 CBC AUTO DIFF 09/23/2024 CBC AUTO DIFF 10/07/2024 CBC AUTO DIFF 11/18/2024 CBC AUTO DIFF 12/23/2024 CREATININE 04/22/2025 CRP 11/18/2024 FERRITIN 11/18/2024 HEPATITIS PANEL, ACUTE 04/18/2024 IRON AND TIBC 11/18/2024 LDH 09/23/2024 LDH 11/18/2024 LDH 12/23/2024 LDH 09/02/2024 LDH 08/19/2024 LDH 02/20/2025 LDH 01/26/2025 LDH 02/17/2025 MAGNESIUM 10/07/2024 PROF 14(COMP METB) 10/07/2024 PROF 14(COMP METB) 11/18/2024 PROF 14(COMP METB) 12/23/2024 PROF 14(COMP METB) 09/02/2024 PROF 14(COMP METB) 09/23/2024 PROF 14(COMP METB) 08/19/2024 PROF 14(COMP METB) 02/20/2025 PROF 14(COMP METB) 02/17/2025 PROF 14(COMP METB) 01/26/2025 CT ABDOMEN W CON 04/23/2025 CT CHEST W CON 04/23/2025 US BLADDER 08/30/2023 US EXT NON VASC LIMITED RT 03/19/2024 THYROID PANEL (T4/TSH/FREE T3) 4 THYROID PANEL (T4/TSH/FREE T3) 4 THYROID PANEL (T4/TSH/FREE T3) 4 THYROID PANEL (T4/TSH/FREE T3) 5 Erythrocyte Sedimentation Rate 5 Manual Differential 10/07/2024 Manual Differential 09/02/2024 Manual Differential 08/19/2024 PET skull to mid thigh 09/15/2024 PET skull to mid thigh 12/16/2024 PSA, SCREENING 05/19/2025 CEA 04/18/2024 CA 19-9 04/18/2024 CT soft tissue neck w con 02/20/2025 CT soft tissue neck w con 04/22/2025 CT chest wo/w con 02/20/2025 CMP (COMP MET WARD) w/eGFR CKD-EPI 2024 CBC WITH DIFF 05/19/2025 Insurance Providers Payer Name Payer Address Payer Phone Subscriber Number Group Number Insured Name Patient Relationship to Insured Coverage Start Date Coverage End Date [facility] [employer] [address] [address] [place] [address] [id number] Hoang Tran Self - patient is the insured 4 Medical (General) History Medical History History ICD Code Anxiety F41.9 COVID-19 U07.1 Diabetes mellitus E11.9 Hyperlipidemia E78.5 Hypertension I10 Mitral valve regurgitation I34.0 Obstructive sleep apnea G47.33 Pulmonary artery hypertension I27.21 HX Brain Tumor BPH with obstruction/ lower urinary tract symptomsoveractive bladderglucosuria Surgical History Surgery Date(Month/Year) Brain Tumor Removal 2004 Herniated Disc Repair- L4-L5 port nknzdgwxa58/24Hospitalization History Reason Date(Month/Year) Lumbar Repair Brain Tumor Removal
[2025-07-22 10:12] VITALS: BP 164/90; PULSE 67; TEMP 36.2; O2SAT 95
[2025-07-22 11:30] VITALS: BP 171/104; PULSE 70; O2SAT 92
[2025-07-22 11:31] VITALS: BP 174/94; PULSE 76; O2SAT 94
[2025-07-22] MEDS: BUPIVACAINE HCL 0.5% PF 50 MG/10 ML VIAL INJ (11:33)
== END 2025-07-22 12:06 | disposition home or self-care (01) ==
PROVIDERS: PCP Nurse Practitioner Family; Visit Provider Surgery
PROC: (CPT 36590; principal; 2025-07-22 10:35)
DX: Z45.2 Encounter for adjustment and management of vascular access device (principal); Z85.72 Personal history of non-Hodgkin lymphomas
CPT/HCPCS: 36590; J0665